=== PATIENT | female | born 1935 | race Caucasian/White ===

== ENCOUNTER 2016-07-14 22:53 | Emergency (ER) | payer MEDICARE, OTHER ==
[~2016-07-14] VITALS: Ht 154.9 cm; Wt 77.3 kg
[~2016-07-14 22:53] MED LIST: ASPI325T32 PO; ATOR40TA68 PO; CHOL20003 PO; METO-448 PO; OMEP40CA6 PO; SAXA5TAB2 PO
[2016-07-14 23:02] VITALS: Ht 154.9 cm; Wt 77.3 kg
[2016-07-14 23:04] VITALS: TEMP 98.7
[2016-07-14] MEDS ORDERED: LOSA100T7 PO (23:12)
[2016-07-14] MEDS ORDERED: ASPI-664 PO (23:12)
[2016-07-14] MEDS ORDERED: DAPA5TAB PO (23:12)
[2016-07-14] MEDS ORDERED: DOXY100T20 PO (23:13)
[2016-07-14] MEDS ORDERED: MONT10TA24 PO (23:13)
[2016-07-14] MEDS ORDERED: METH10TA2 PO (23:14)
[2016-07-14] MEDS ORDERED: INSU100V27 SQ (23:14)
[2016-07-14] MEDS ORDERED: DIPHTH/TET/ACEL PERTUSS (ADULT) 0.5 ML VIAL IM* ONE (23:30)
--- NOTE | 2016-07-15 00:05 | RADRPT ---
PROCEDURE: XR Foot. CLINICAL INDICATION: Fall TECHNIQUE: Three views of the left foot are available for review. COMPARISON: None available FINDINGS: The patient appears to be status post amputation of the first toe at the metatarsophalangeal joint, second toe at the approximate level of the proximal interphalangeal joint and the fourth toe at the level of the proximal interphalangeal joint. There is diffuse osteopenia. There is deformity of th e heads of the second, fourth and fifth metatarsals which may be secondary to old fractures. No def inite acute fracture seen. Appearance of lateral deviation and likely dorsiflexion of the third toe at the metatarsophalangeal joint. The fourth and fifth metatarsophalangeal joints are not well deli neated. Arterial calcification. Mild osteoarthrosis at fifth tarsometatarsal joint. Posterior and s mall plantar calcaneal spurs. IMPRESSION: Diffuse osteopenia. No definite acute fracture seen. Marked chronic changes noted above. Please s ee above. RPTAT: HJES .Vaughn Spence MD, MD Date Time Electronically viewed and signed by .Vaughn Spence MD, MD on 07/15/2016 00:05 .S/
[2016-07-15 00:50] VITALS: BP 163/65; PULSE 68; RESP 20
[2016-07-15] MEDS ORDERED: HYDROCODONE/APAP (10/325) TAB PO ONE (01:00)
[2016-07-15] MEDS ORDERED: BACITUD TOP (01:06)
--- NOTE | 2016-07-15 01:08 | ERD ---
ER Documentation Chief Complaint Date/Time DATE: 07/15/16 TIME: 01:07 Chief Complaint HPI There is an 81-year-old female suffered a mechanical fall. Patient has a right AKA. Comes in with an abrasion to her left ankle region. Skin tear noted. No active bleeding. Last tetanus is unknown. ROS All systems reviewed and are negative except as per history of present illness. Medications Home Meds Active Scripts Bacitracin* (Bacitracin Oint (UD)*) 1 Applic Oint, 1 APPLIC TOP ONCE for 7 Days , PKT APPLY TO Prov:DORY PLAZA Shakeel 07/15/16 Reported Medications Insulin Lispro Protamin/Lispro (Humalog Mix 75-25 Vial) 100 Unit/1 Ml Vial, 30- 60 UNIT SQ BID, VIAL 07/14/16 Methadone Hcl* (Methadone*) 10 Mg Tab, 15 MG PO BID, TAB 07/14/16 Doxycycline Hyclate* (Doxycycline Hyclate*) 100 Mg Tablet.dr, 100 MG PO BID, TAB 07/14/16 Montelukast Sodium* (Montelukast Sodium*) 10 Mg Tablet, 10 MG PO QHS, #30 TAB 07/14/16 Losartan Potassium* (Losartan Potassium*) 100 Mg Tablet, 100 MG PO BID, TAB 07/14/16 Dapagliflozin Propanediol (Farxiga) 5 Mg Tablet, 5 MG PO DAILY, #30 TAB 07/14/16 Aspirin* (Aspirin* EC) 81 Mg Tablet.dr, 81 MG PO DAILY, TAB 07/14/16 Discontinued Reported Medications Saxagliptin Hcl* (Onglyza*) 5 Mg Tablet, 5 MG PO DAILY 11/20/12 Cholecalciferol (Vitamin D3) (VITAMIN D-3) 2,000 Unit Capsule, 2000 UNIT PO DAILY 11/20/12 Atorvastatin* (Atorvastatin*) 40 Mg Tablet, 40 MG PO DAILY 11/20/12 Metoprolol Tartrate* (Lopressor*) 25 Mg Tab, 25 MG PO BID 11/20/12 Aspirin (Aspirin) 325 Mg Tablet.dr, 325 MG PO DAILY 11/20/12 Omeprazole* (Omeprazole*) 40 Mg Capsule.dr, 40 MG PO DAILY 11/20/12 Allergies Allergies: Coded Allergies: Penicillins (Verified Allergy, Mild, RASH, 07/14/16) PMhx/Soc History of Surgery: Yes (RIGHT BKA) Anesthesia Reaction: No Hx Neurological Disorder: No Hx Respiratory Disorders: No Hx Cardiac Disorders: Yes (HTN) Hx Psychiatric Problems: No Hx Alcohol Use: No Hx Substance Use: No Hx Tobacco Use: No Smoking Status: Never smoker Physical Exam Vitals Vital Signs Date Time Temp Pulse Resp B/P Pulse Ox O2 Delivery O2 Flow Rate FiO2 07/15/16 00:50 68 20 163/65 99 Room Air 07/14/16 23:04 98.7 72 24 181/68 97 Room Air 07/14/16 23:02 98.7 73 24 181/68 97 Physical Exam Const: [] Head: Atraumatic Eyes: Normal Conjunctiva ENT: Normal External Ears, Nose and Mouth. Neck: Full range of motion..~ No meningismus. Resp: Clear to auscultation bilaterally Cardio: Regular rate and rhythm, no murmurs Abd: Soft, non tender, non distended. Normal bowel sounds Skin: Skin avulsion noted 2 x 2 centimeters heel Back: No midline or flank tenderness Ext: No cyanosis, or edema Neur: Awake and alert Psych: Normal Mood and Affect Results 24 hrs Current Medications Medications (Trade) Dose Ordered Sig/Grecia Route PRN Reason Start Time Stop Time Status Last Admin Dose Admin Diphtheria/ Tetanus/Acell Pertussis (Adacel) 0.5 ml ONCE ONCE IM* 07/14/16 23:30 07/14/16 23:31 DC 07/14/16 23:44 Acetaminophen/ Hydrocodone Bitart ([place] (10/325)) 1 tab ONCE ONCE PO 07/15/16 01:00 07/15/16 01:01 DC 07/15/16 00:58 Procedures/MDM X-ray Ankle 3V Interpreted by me: Bones: [No fracture] Joints: No dislocation Medical decision makin-year-old female suffered a mechanical fall. Skin avulsion noted. Wound cleaned and sterilely dressed. Discharged on bacitracin. Follow-up tomorrow for wound check. Follow with PCP tomorrow as well. Departure Diagnosis: Primary Impression: Skin tear Condition: Stable Patient Instructions: Skin Avulsion DORY PLAZA Jul 15, 2016 01:08
== END 2016-07-15 01:55 | disposition home or self-care (01) ==
LOC: E/R 22:53
DX: S90.512A Abrasion, left ankle, initial encounter (principal); I10 Essential (primary) hypertension; E11.9 Type 2 diabetes mellitus without complications; W18.39XA Other fall on same level, initial encounter; Y92.9 Unspecified place or not applicable; Z23 Encounter for immunization; Z79.82 Long term (current) use of aspirin; Z79.4 Long term (current) use of insulin
CPT/HCPCS: 90471; 90715

== ENCOUNTER 2016-10-27 22:25 | Inpatient (IN) | payer MEDICARE, OTHER ==
[~2016-10-27] VITALS: Ht 154.9 cm; Wt 69.3 kg
[~2016-10-27 22:25] MED LIST changes: +ASPI-664 PO; -ASPI325T32 PO; -ATOR40TA68 PO; +BACITUD TOP; -CHOL20003 PO; +DAPA5TAB PO; +DOXY100T20 PO; +INSU100V27 SQ; +LOSA100T7 PO; +METH10TA2 PO; -METO-448 PO; +MONT10TA24 PO; -OMEP40CA6 PO; -SAXA5TAB2 PO
[2016-10-27 23:18] LABS: ADD SCAN DIFF NO; BASOPHIL # 0.1 10^3/ul (0.0-0.1); BASOPHILS % 0.6 % (0.0-2.0); EOSINOPHILS # 0.3 10^3/ul (0.0-0.5); EOSINOPHILS % 3.5 % (0.0-7.0); HEMATOCRIT 40.6 % (37.0-47.0); HEMOGLOBIN 13.4 g/dl (12.0-16.0); LYMPHOCYTES # 2.3 10^3/ul (0.8-2.9); LYMPHOCYTES % 24.9 % (15.0-51.0); MEAN PLATELET VOLUME 9.4 fl (7.4-10.4); MONOCYTE # 0.9 10^3/ul (0.3-0.9); MONOCYTES % 9.9 % (0.0-11.0); NEUTROPHIL # 5.7 10^3/ul (1.6-7.5); NEUTROPHILS % 60.4 % (39.0-77.0); PLATELET COUNT 288 10^3/UL (140-415); RED BLOOD COUNT 4.46 10^6/ul (4.20-5.40); RED CELL DISTRIBUTION WIDTH 13.6 % (11.5-14.5); WHITE BLOOD COUNT 9.4 10^3/ul (4.8-10.8)
[2016-10-27 23:36] LABS: INR 1.16; PARTIAL THROMBOPLASTIN TIME 30.2 Sec (25.0-35.0); PROTIME 14.9 Sec (12.2-14.2); PT RATIO 1.2
--- NOTE | 2016-10-27 23:54 | RADRPT ---
PROCEDURE: CT brain without contrast CLINICAL INDICATION: Altered mental status TECHNIQUE: A CT of the brain was performed utilizing axial sections from the skull base through th e vertex without contrast. Sagittal and coronal images were also reformatted. The exam CTDIvol = 44. 19 mGy and DLP = 720.23 mGy-cm. COMPARISON: None available FINDINGS: No acute intracranial hemorrhage is identified. There is no mass effect or midline shift. No extra -axial fluid collection is seen. The ventricles and sulci are larger in size and configuration for the patient's provided age of 81 years consistent with advanced generalized atrophy. Diffuse low at tenuation of the subcortical and periventricular white matter is nonspecific but likely the sequela of chronic small vessel ischemia. Small chronic lacunar infarct within the right centrum semiovale are suggested. Olsen-white differentiation is preserved with no findings to suggest an acute ischemi c infarct. The fourth ventricle is midline and there is no density alteration within the jax or cerebellum. The osseous structures are demineralized but otherwise unremarkable. The mastoid air cells and visu alized paranasal sinuses are clear. Severe atherosclerotic calcification of the cavernous internal c arotid and right vertebral arteries is noted RPTAT:HJJR IMPRESSION: 1. 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 2. Severe atherosclerotic calcification of the cavernous internal carotid and right vertebral arteri es. Physician Dago Date Time Electronically viewed and signed by Physician Dago on 10/27/2016 23:53 /
[2016-10-27 23:59] LABS: ALANINE AMINOTRANSFERASE 27 IU/L (13-69); ALBUMIN/GLOBULIN RATIO 1.05; ALKALINE PHOSPHATASE 84 IU/L (42-121); ANION GAP 15 (8-16); ASPARTATE AMINO TRANSFERASE 23 IU/L (15-46); BILIRUBIN,INDIRECT 0.4 mg/dl (0-1.1); BILIRUBIN,TOTAL 0.4 mg/dl (0.2-1.3); BLOOD UREA NITROGEN 23 mg/dl (7-20); CALCIUM 9.8 mg/dl (8.4-10.2); CARBON DIOXIDE 27 mmol/L (21-31); CHLORIDE 103 mmol/L (97-110); CREATININE 0.98 mg/dl (0.44-1.00); GLUCOSE 246 mg/dl (70-220); POTASSIUM 4.4 mmol/L (3.5-5.1); SODIUM 141 mmol/L (135-144); TOTAL PROTEIN 7.8 g/dl (6.1-8.1)
[2016-10-28 00:09] LABS: B-TYPE NATRIURETIC PEPTIDE 603 PG/ML (0-450)
[2016-10-28 00:10] LABS: TROPONIN-I < 0.012 ng/ml (0.00-0.12)
--- NOTE | 2016-10-28 00:40 | RADRPT ---
PROCEDURE: XR Chest. CLINICAL INDICATION: Chest pain. TECHNIQUE: Portable AP upright view of the chest was obtained. COMPARISON: 07/23/2013 FINDINGS: The cardiomediastinal silhouette is within upper normal limits. The lungs are clear. There is no e vidence for pleural effusion, pneumothorax or pulmonary vascular congestion. Demineralization is no eleazar without evidence of acute osseous abnormality. Calcification within the aorta is present. RPTAT:HJJR IMPRESSION: No evidence for acute intrathoracic pathology or interval change from 07/23/2013. Physician Dago Date Time Electronically viewed and signed by Physician Dago on 10/28/2016 00:39 JR/
[2016-10-28] MEDS ORDERED: morphine 4 MG/ML VIAL IV ONE (00:49)
[2016-10-28] MEDS ORDERED: NOVO7030 SC (01:34)
[2016-10-28] MEDS ORDERED: MULT-853 PO (01:34)
--- NOTE | 2016-10-28 02:15 | ERA ---
ER Documentation Chief Complaint Date/Time DATE: 10/28/16 TIME: 02:14 Chief Complaint HPI 81-year-old female brought by family for generalized weakness over the past day getting progressively worse. No focal neurological complaints. Patient does have history of osteomyelitis of the lower extremity. Per the family, patient' s been getting more more lethargic lately which is not normal for her. No focal neurological complaints. ROS All systems reviewed and are negative except as per history of present illness. Medications Home Meds Reported Medications Multivits-Min/Iron/FA/Lutein (Centrum Silver Women Tablet) 1 Each Tablet, 1 EACH PO, TAB 10/28/16 Insulin Isophan/Regular (Humulin 70/30) 100 Units/Ml Susp, 0 SC SLIDING SCALE, EA 10/28/16 Methadone Hcl* (Methadone*) 10 Mg Tab, 15 MG PO BID, TAB 07/14/16 Montelukast Sodium* (Montelukast Sodium*) 10 Mg Tablet, 10 MG PO QHS, #30 TAB 07/14/16 Losartan Potassium* (Losartan Potassium*) 100 Mg Tablet, 100 MG PO BID, TAB 07/14/16 Aspirin* (Aspirin* EC) 81 Mg Tablet.dr, 81 MG PO DAILY, TAB 07/14/16 Discontinued Reported Medications Insulin Lispro Protamin/Lispro (Humalog Mix 75-25 Vial) 100 Unit/1 Ml Vial, 30- 60 UNIT SQ BID, VIAL 07/14/16 Doxycycline Hyclate* (Doxycycline Hyclate*) 100 Mg Tablet.dr, 100 MG PO BID, TAB 07/14/16 Dapagliflozin Propanediol (Farxiga) 5 Mg Tablet, 5 MG PO DAILY, #30 TAB 07/14/16 Discontinued Scripts Bacitracin* (Bacitracin Oint (UD)*) 1 Applic Oint, 1 APPLIC TOP ONCE for 7 Days , PKT APPLY TO Prov:DORY PLAZACheryl 07/15/16 Allergies Allergies: Coded Allergies: Penicillins (Verified Allergy, Mild, RASH, 07/14/16) PMhx/Soc History of Surgery: Yes (RIGHT BKA) Anesthesia Reaction: No Hx Neurological Disorder: No Hx Respiratory Disorders: No Hx Cardiac Disorders: Yes (HTN) Hx Psychiatric Problems: No Hx Miscellaneous Medical Probl: Yes (DM) Hx Alcohol Use: No Hx Substance Use: No Hx Tobacco Use: No Smoking Status: Never smoker Physical Exam Vitals Vital Signs Date Time Temp Pulse Resp B/P Pulse Ox O2 Delivery O2 Flow Rate FiO2 10/28/16 02:03 57 16 138/43 97 Room Air 10/27/16 23:19 98.2 69 16 89/67 96 10/27/16 23:19 69 18 89/67 96 Room Air Physical Exam Const: [] Head: Atraumatic Eyes: Normal Conjunctiva ENT: Normal External Ears, Nose and Mouth. Neck: Full range of motion..~ No meningismus. Resp: Clear to auscultation bilaterally Cardio: Regular rate and rhythm, no murmurs Abd: Soft, non tender, non distended. Normal bowel sounds Skin: No petechiae or rashes Back: No midline or flank tenderness Ext: Left lower extremity with gangrenous purulent drainage from the heel. Neur: Awake and alert Psych: Normal Mood and Affect Result Diagram: 10/27/16 2300 10/27/16 2300 Results 24 hrs Laboratory Tests Test 10/27/16 23:00 White Blood Count 9.410^3/ul Red Blood Count 4.4610^6/ul Hemoglobin 13.4g/dl Hematocrit 40.6% Mean Corpuscular Volume 91.0fl Mean Corpuscular Hemoglobin 30.0pg Mean Corpuscular Hemoglobin Concent 33.0g/dl Red Cell Distribution Width 13.6% Platelet Count 34004^3/UL Mean Platelet Volume 9.4fl Neutrophils % 60.4% Lymphocytes % 24.9% Monocytes % 9.9% Eosinophils % 3.5% Basophils % 0.6% Nucleated Red Blood Cells % 0.0/100WBC Neutrophils # 5.710^3/ul Lymphocytes # 2.310^3/ul Monocytes # 0.910^3/ul Eosinophils # 0.310^3/ul Basophils # 0.110^3/ul Nucleated Red Blood Cells # 0.010^3/ul Prothrombin Time 14.9Sec Prothrombin Time Ratio 1.2 INR International Normalized Ratio 1.16 Activated Partial Thromboplast Time 30.2Sec Sodium Level 141mmol/L Potassium Level 4.4mmol/L Chloride Level 103mmol/L Carbon Dioxide Level 27mmol/L Anion Gap 15 Blood Urea Nitrogen 23mg/dl Creatinine 0.98mg/dl Glucose Level 246mg/dl Calcium Level 9.8mg/dl Total Bilirubin 0.4mg/dl Direct Bilirubin 0.00mg/dl Indirect Bilirubin 0.4mg/dl Aspartate Amino Transf (AST/SGOT) 23IU/L Alanine Aminotransferase (ALT/SGPT) 27IU/L Alkaline Phosphatase 84IU/L Troponin I < 0.012ng/ml B-Type Natriuretic Peptide 603PG/ML Total Protein 7.8g/dl Albumin 4.0g/dl Globulin 3.80g/dl Albumin/Globulin Ratio 1.05 Current Medications Medications (Trade) Dose Ordered Sig/Grecia Route PRN Reason Start Time Stop Time Status Last Admin Dose Admin Morphine Sulfate (morphine) 4 mg ONCE ONCE IV 10/28/16 00:49 10/28/16 00:50 DC 10/28/16 00:54 Procedures/MDM EKG: Rate/Rhythm: Normal Sinus Rhythm QRS, ST, T-waves: No changes consistent w/ acute ischemia Impression: No evidence of ischemia or arrhythmia Chest X-ray 1V Interpreted by me: Soft Tissue: No acute abnormalities Bones: No acute abnormalities Mediastinum/Cardiac Silhouette/Lungs: No acute abnormalities Medical decision-makin-year-old female with generalized weakness and questionable alteration in mental status from baseline. At this point she will be admitted for further evaluation and management. Primary care physician notified. Departure Diagnosis: Primary Impression: Acute weakness Condition: Serious DORY PLAZA Oct 28, 2016 02:15
[2016-10-28] MEDS ORDERED: ONDANSETRON 4 MG INJ IV PRN (09:30)
[2016-10-28] MEDS ORDERED: NACL 0.9% 3 ML SYG IV SCH ×2 (09:30)
[2016-10-28] MEDS ORDERED: DEXTROSE 50% 50 ML SYRINGE IV PRN ×2 (10:00)
[2016-10-28] MEDS ORDERED: GLUCOSE GEL 15 GRAM TUBE BUCCAL PRN (10:00)
[2016-10-28] MEDS ORDERED: GLUCAGON 1 MG INJ IM PRN (10:00)
[2016-10-28] MEDS ORDERED: GLUCOSE GEL 15 GRAM TUBE PO PRN ×2 (10:00)
[2016-10-28] MEDS: SOD CHLORIDE 0.45% 1,000 ML IV SCH (13:46)
[2016-10-28] MEDS ORDERED: HALOPERIDOL 1 MG TAB PO PRN (16:30)
[2016-10-28] MEDS: morphine 2 MG INJ IV PRN (17:02)
[2016-10-28 17:30] VITALS: BP 145/64; PULSE 63; RESP 18; Ht 154.9 cm; Wt 69.3 kg
[2016-10-28 17:53] VITALS: PULSE 65
[2016-10-28 18:19] VITALS: BP 145/64; RESP 18
[2016-10-28] MEDS: INSULIN ASPART [NOVOLOG] 3 ML PEN SC SCH ×2 (18:44→20:56)
[2016-10-28] MEDS: LOSARTAN 50 MG TAB PO SCH (19:12)
[2016-10-28 20:00] VITALS: BP 141/67; RESP 18
[2016-10-28 20:20] VITALS: PULSE 66
[2016-10-28] MEDS: ACETAMINOPHEN 325 MG TAB PO PRN (21:06)
[2016-10-29] VITALS (13 sets, daily range): BP systolic 137–184; BP diastolic 61–75; PULSE 51–58; RESP 18–20
[2016-10-29] MEDS: morphine 2 MG INJ IV PRN ×2 (02:21→20:34)
[2016-10-29 07:40] LABS: ADD SCAN DIFF NO
[2016-10-29 07:55] LABS: BASOPHIL # 0.1 10^3/ul (0.0-0.1); BASOPHILS % 0.8 % (0.0-2.0); EOSINOPHILS # 0.4 10^3/ul (0.0-0.5); EOSINOPHILS % 3.9 % (0.0-7.0); HEMATOCRIT 39.8 % (37.0-47.0); HEMOGLOBIN 13.1 g/dl (12.0-16.0); LYMPHOCYTES # 2.8 10^3/ul (0.8-2.9); MEAN CORPUSCULAR HEMOGLOBIN 30.5 pg (29.0-33.0); MEAN CORPUSCULAR HGB CONC 32.9 g/dl (32.0-37.0); MEAN CORPUSCULAR VOLUME 92.6 fl (82.0-101.0); MEAN PLATELET VOLUME 9.5 fl (7.4-10.4); MONOCYTE # 0.9 10^3/ul (0.3-0.9); NEUTROPHIL # 5.4 10^3/ul (1.6-7.5); NEUTROPHILS % 56.8 % (39.0-77.0); PLATELET COUNT 285 10^3/UL (140-415); RED CELL DISTRIBUTION WIDTH 13.6 % (11.5-14.5); WHITE BLOOD COUNT 9.5 10^3/ul (4.8-10.8)
[2016-10-29] MEDS: INSULIN ASPART [NOVOLOG] 3 ML PEN SC SCH ×4 (08:00→20:44)
[2016-10-29 08:05] LABS: ALBUMIN/GLOBULIN RATIO 1.05; BILIRUBIN,INDIRECT 0.6 mg/dl (0-1.1); BILIRUBIN,TOTAL 0.6 mg/dl (0.2-1.3); CREATININE 0.83 mg/dl (0.44-1.00); POTASSIUM 4.7 mmol/L (3.5-5.1); TOTAL PROTEIN 7.8 g/dl (6.1-8.1)
[2016-10-29] MEDS: ASPIRIN 81 MG TAB PO SCH (08:36)
[2016-10-29] MEDS: LOSARTAN 50 MG TAB PO SCH (08:36)
[2016-10-29] MEDS: ENOXAPARIN 40 MG/0.4 ML SYG SC SCH (08:37)
--- NOTE | 2016-10-29 10:51 | CONS ---
Date/Time of Note Date/Time of Note DATE: 10/29/16 TIME: 10:44 Assessment/Plan Assessment/Plan Chief Complaint/Hosp Course 1) Padma heal eschar with cellulitis cx the site get nasal cx and blood cx start vanco/merrem till cx results are back pt will need surgical debridement most likely check ESR, CRP in a.m. if arterial studies have not been done recently they should be repeated Problems: Consultation Date/Type/Reason Admit Date/Time Oct 28, 2016 at 02:32 Date of Consultation: Oct 29, 2016 Type of Consultation: ID Hx of Present Illness spoke to caregiver pt has been off antibiotics for 2 weeks and the Padma joseph started to deteriorate no F, C, NS No N, V, D, SOB she had been on doxycycline but unclear for how long Social History Smoking Status: Never smoker Exam/Review of Systems Vital Signs Vitals Vital Signs Date Time Temp Pulse Resp B/P Pulse Ox O2 Delivery O2 Flow Rate FiO2 10/29/16 08:45 58 10/29/16 07:46 98.4 20 184/75 98 10/28/16 17:30 Room Air Intake and Output 10/28/16 10/28/16 10/29/16 15:00 23:00 07:00 Intake Total 400 ml Balance 400 ml Exam Constitutional: alert Psych: no complaints Eyes: nl sclera ENMT: mucosa pink and moist Respiratory: clear to auscultation Cardiovascular: regular rate and rhythm Gastrointestinal: non-tender, soft Extremities: other (Padma joseph has large eschar with minimal redness around it) Results Result Diagram: 10/29/16 0700 10/29/16 0700 Results 24 hrs Laboratory Tests Test 10/28/16 18:44 10/28/16 20:53 10/29/16 07:00 10/29/16 08:33 Bedside Glucose 190 190 137 White Blood Count 9.5 Red Blood Count 4.30 Hemoglobin 13.1 Hematocrit 39.8 Mean Corpuscular Volume 92.6 Mean Corpuscular Hemoglobin 30.5 Mean Corpuscular Hemoglobin Concent 32.9 Red Cell Distribution Width 13.6 Platelet Count 285 Mean Platelet Volume 9.5 Neutrophils % 56.8 Lymphocytes % 29.0 Monocytes % 9.0 Eosinophils % 3.9 Basophils % 0.8 Nucleated Red Blood Cells % 0.0 Neutrophils # 5.4 Lymphocytes # 2.8 Monocytes # 0.9 Eosinophils # 0.4 Basophils # 0.1 Nucleated Red Blood Cells # 0.0 Sodium Level 143 Potassium Level 4.7 Chloride Level 104 Carbon Dioxide Level 28 Anion Gap 16 Blood Urea Nitrogen 20 Creatinine 0.83 Glucose Level 141 # Calcium Level 10.0 Total Bilirubin 0.6 Direct Bilirubin 0.00 Indirect Bilirubin 0.6 Aspartate Amino Transf (AST/SGOT) 23 Alanine Aminotransferase (ALT/SGPT) 26 Alkaline Phosphatase 82 Total Protein 7.8 Albumin 4.0 Globulin 3.80 H Albumin/Globulin Ratio 1.05 Medications Medications Current Medications Sodium Chloride (1/2 NS) 1,000 ml @ 40 mls/hr Q24H IV Last administered on 10/28 13:46; Admin Dose 40 MLS/HR; Start 10/28/16 at 14:00 Ondansetron HCl (Zofran Inj) 4 mg Q6H PRN IV NAUSEA AND/OR VOMITING; Start 10/28 at 09:30 Aspirin (Aspirin) 81 mg DAILY PO Last administered on 10/29/16 08:36; Admin Dose 81 MG; Start 10/29/16 at 09:00 Acetaminophen (Tylenol Tab) 650 mg Q6H PRN PO PAIN LEVEL 1-3 OR FEVER Last administered on 10/28/16 21:06; Admin Dose 650 MG; Start 10/28/16 at 09:30 Enoxaparin Sodium (Lovenox) 40 mg DAILY SC Last administered on 10/29/16 08:37 ; Admin Dose 40 MG; Start 10/29/16 at 09:00 Miscellaneous Information 1 ea NOTE XX ; Start 10/28/16 at 10:00 Glucose (Glutose) 15 gm Q15M PRN PO DECREASED GLUCOSE; Start 10/28/16 at 10:00 Glucose (Glutose) 22.5 gm Q15M PRN PO DECREASED GLUCOSE; Start 10/28/16 at 10:00 Dextrose (D50w Syringe) 25 ml Q15M PRN IV DECREASED GLUCOSE; Start 10/28/16 at 10:00 Dextrose (D50w Syringe) 50 ml Q15M PRN IV DECREASED GLUCOSE; Start 10/28/16 at 10:00 Glucagon (Glucagen) 1 mg Q15M PRN IM DECREASED GLUCOSE; Start 10/28/16 at 10:00 Glucose (Glutose) 15 gm Q15M PRN BUCCAL DECREASED GLUCOSE; Start 10/28/16 at 10: 00 Morphine Sulfate (morphine) 2 mg Q8H PRN IV pain Last administered on 10/29/16 02:21; Admin Dose 2 MG; Start 10/28/16 at 15:30 Haloperidol (Haldol) 2 mg HS PRN PO insomnia; Start 10/28/16 at 16:30 Losartan Potassium (Cozaar) 100 mg DAILY PO Last administered on 10/29/16 08:36 ; Admin Dose 100 MG; Start 10/28/16 at 17:30 ANTHONY WOODARD MD Oct 29, 2016 10:51
[2016-10-29] MEDS ORDERED: VANCOMYCIN IV PER PHARMACY XX SCH (11:00)
--- NOTE | 2016-10-29 12:38 | HP ---
DATE OF ADMISSION: 10/28/2016 HISTORY OF PRESENT ILLNESS: This is an 81-year-old female who came in with the family complaining o f her having hallucinations. The patient has been having increased neuropathic pain and cellulitic pain of the lower extremities. Currently, she is taking methadone 10 mg q.i.d. and she has been inc reasing, then she started getting anxious family wanted her on some type of sedative for her anxiety , was started on Xanax. It appears that the Xanax is causing hallucination and lethargy for her. I n the emergency room, nothing was found. Her blood tests were normal. CT of the brain, normal. Ch est x-ray was normal. No acute findings for possible source of lethargy. PAST MEDICAL HISTORY: Hyperlipidemia, diabetes with a history of amputation of lower extremity and neuropathy, also with hypertension and now with a mood disorder. FAMILY HISTORY: Significant for diabetes with multiple family members. SOCIAL HISTORY: Denies both tobacco and alcohol. ALLERGIES: PENICILLIN. MEDICATIONS: 1. Methadone 10 mg q.i.d. 2. Losartan 100 mg daily. PHYSICAL EXAMINATION: VITAL SIGNS: Blood pressure is 146/64, respirations 20, pulse 67, pulse ox 99 on room air. HEENT: Normocephalic, atraumatic. NECK: No bruits. CARDIOVASCULAR: Regular rate and rhythm. LUNGS: Clear to auscultation bilaterally, no wheezes or rhonchi. ABDOMEN: Nontender, nondistended. LABORATORY DATA: Demonstrate a WBC of 9.4, hemoglobin 13.4, platelets 288, potassium 4.4, creatinin e 0.98. BNP is 603. Brain CT was negative. Chest x-ray was negative. ASSESSMENT AND PLAN: 1. Lethargy, hallucinations, most likely brought out by the Xanax. Will hold Xanax. Will decrease pain medications at this time. Will give mild morphine as needed. Currently on examination, the giuliana laureano reports that she may still have some hallucinations, but much better than prior at 2:00 in the morning. 2. Lower extremity cellulitis. The patient is being seen as an outpatient, home health, wound care , has seen infectious disease, was given antibiotics multiple times. It was progressing. The famil y was told to go to the hospital as an outpatient for wound care. there for more in-depth treatment . The patient's family has yet to make an appointment. While in the hospital, will have wound care nursing evaluate any have any treatment necessary at this time. 3. Diabetes. The patient has recently been under better control. A1c tests have been in the 7s. She is taking a combination insulin 70/30 at approximately 20 units in the morning and 60 units in t he evening time. We will give her a sliding scale and will see about a long-acting insulin. 4. Hypertension. Continue with the Losartan and cover with clonidine. Dictated By: RIDGE ABDALLA/CLIVE Conf#: [id number] DID#: [id number]
[2016-10-29] MEDS ORDERED: VANCOMYCIN 1.25 GM in SOD CHLORIDE 0.9% 250 ML IVPB ONE (13:00)
--- NOTE | 2016-10-29 14:09 | HP ---
DATE OF ADMISSION: 10/28/2016 SUBJECTIVE: Feeling good, eating well, no complaints. Family reports not having hallucinations at this time, but the son is saying everything is doing fine, so unable to tell if this is really true. PHYSICAL EXAMINATION: VITAL SIGNS: Blood pressure is between 104 to 170/65, temperature 98.3, pulse is at 57, pulse ox is 92 on room air. HEENT: Normocephalic, atraumatic. LUNGS: Clear to auscultation. GASTROINTESTINAL: Abdomen is soft, nontender. CARDIOVASCULAR: Regular rate and rhythm. LABORATORY DATA: Potassium is 4.7, creatinine 0.83. WBC is 9.5, hemoglobin 13.1, platelets of 285. ASSESSMENT AND PLAN: 1. Lethargy, hallucination, most likely secondary to medications and Xanax, Xanax being held. Patie nt appears to be back to normal. We will restart her typical methadone. 2. Lower extremity cellulitis with possibility of osteomyelitis. ID is seeing, recommended debride ment. Surgeon was called. He reports unavailable, but his fork truck driver he will contact and see we jac george have the fork truck driver evaluate and see if the possibility for the need for debridement. Cultures angel saunders. Wound care nurse was also called. 3. Diabetes. The patient has been under good control in the past A1c. Her normal insulin is curre ntly being held. We will restart on NPH currently in the morning and still cover with a sliding sca le. 4. Hypertension, may be due is elevated, may be due to the increase of pain. We will watch as we r estart the methadone to see if the blood pressure starts coming down. Dictated By: RIDGE ABDALLA/CLIVE Conf#: [id number] DID#: [id number]
[2016-10-29] MEDS: SOD CHLORIDE 0.45% 1,000 ML IV SCH (14:10)
[2016-10-29] MEDS: MEROPENEM 1 GM/100 ML (PMX) 100 ML IVPB SCH ×2 (15:26→22:36)
[2016-10-29] MEDS: GABAPENTIN 100 MG CAP PO SCH (20:34)
[2016-10-29] MEDS ORDERED: LORAZEPAM 2 MG INJ IV PRN (23:30)
[2016-10-29] MEDS ORDERED: ZOLPIDEM 5 MG TAB PO PRN (23:30)
[2016-10-29] MEDS ORDERED: LORAZEPAM 2 MG INJ IM ONE (23:30)
[2016-10-30] VITALS (12 sets, daily range): BP systolic 113–189; BP diastolic 49–77; PULSE 51–59; RESP 19–20
[2016-10-30] MEDS: MEROPENEM 1 GM/100 ML (PMX) 100 ML IVPB SCH ×3 (05:50→22:21)
--- NOTE | 2016-10-30 07:33 | CONS ---
Date/Time of Note Date/Time of Note DATE: 10/30/16 TIME: 07:31 Assessment/Plan Assessment/Plan Chief Complaint/Hosp Course 1) L heal eschar with cellulitis cx the site get nasal cx and blood cx start vanco/merrem till cx results are back pt will need surgical debridement most likely check ESR, CRP in a.m. if arterial studies have not been done recently they should be repeated 10/30 - spoke to family, no MRI or arterial dopplers were ever done so will order them GNR is growing from wound cx pt will need some debridement of eschar continue with vanco/merrem at present Problems: Consultation Date/Type/Reason Admit Date/Time Oct 28, 2016 at 02:32 Initial Consult Date 10/29/16 Type of Consultation: ID 24 HR Interval Summary Free Text/Dictation no new problems no N, V, D No cough, SOB appetite is good Exam/Review of Systems Vital Signs Vitals Vital Signs Date Time Temp Pulse Resp B/P Pulse Ox O2 Delivery O2 Flow Rate FiO2 10/30/16 04:38 51 10/30/16 04:02 98.4 19 113/49 94 10/28/16 17:30 Room Air Intake and Output 10/29/16 10/29/16 10/30/16 15:00 23:00 07:00 Intake Total 850 ml 1040 ml Balance 850 ml 1040 ml Exam Extremities: other (L ankle is bandaged but no redness to lower calf, toes are warm to touch) Results Result Diagram: 10/29/16 0700 10/29/16 0700 Results 24 hrs Laboratory Tests Test 10/29/16 08:33 10/29/16 12:24 10/29/16 17:42 10/29/16 20:43 Bedside Glucose 137 191 203 176 Medications Medications Current Medications Sodium Chloride (1/2 NS) 1,000 ml @ 40 mls/hr Q24H IV Last administered on 10/29 14:10; Admin Dose 40 MLS/HR; Start 10/28/16 at 14:00 Ondansetron HCl (Zofran Inj) 4 mg Q6H PRN IV NAUSEA AND/OR VOMITING; Start 10/28 at 09:30 Aspirin (Aspirin) 81 mg DAILY PO Last administered on 10/29/16 08:36; Admin Dose 81 MG; Start 10/29/16 at 09:00 Acetaminophen (Tylenol Tab) 650 mg Q6H PRN PO PAIN LEVEL 1-3 OR FEVER Last administered on 10/28/16 21:06; Admin Dose 650 MG; Start 10/28/16 at 09:30 Enoxaparin Sodium (Lovenox) 40 mg DAILY SC Last administered on 10/29/16 08:37 ; Admin Dose 40 MG; Start 10/29/16 at 09:00 Miscellaneous Information 1 ea NOTE XX ; Start 10/28/16 at 10:00 Glucose (Glutose) 15 gm Q15M PRN PO DECREASED GLUCOSE; Start 10/28/16 at 10:00 Glucose (Glutose) 22.5 gm Q15M PRN PO DECREASED GLUCOSE; Start 10/28/16 at 10:00 Dextrose (D50w Syringe) 25 ml Q15M PRN IV DECREASED GLUCOSE; Start 10/28/16 at 10:00 Dextrose (D50w Syringe) 50 ml Q15M PRN IV DECREASED GLUCOSE; Start 10/28/16 at 10:00 Glucagon (Glucagen) 1 mg Q15M PRN IM DECREASED GLUCOSE; Start 10/28/16 at 10:00 Glucose (Glutose) 15 gm Q15M PRN BUCCAL DECREASED GLUCOSE; Start 10/28/16 at 10: 00 Morphine Sulfate (morphine) 2 mg Q8H PRN IV pain Last administered on 10/29/16 20:34; Admin Dose 2 MG; Start 10/28/16 at 15:30 Haloperidol (Haldol) 2 mg HS PRN PO insomnia; Start 10/28/16 at 16:30 Losartan Potassium 100 mg 100 mg DAILY PO Last administered on 10/29/16 08:36; Admin Dose 100 MG; Start 10/28/16 at 17:30 Meropenem 100 ml @ 200 mls/hr Q8 IVPB Last administered on 10/30/16 05:50; Admin Dose 200 MLS/HR; Start 10/29/16 at 14:00 Vancomycin HCl (Vancocin) 250 ml @ 125 mls/hr Q24H IVPB ; Start 10/30/16 at 12: 00 Methadone HCl (Methadone) 10 mg Q6H PRN PO PAIN; Start 10/29/16 at 13:30 Insulin Human NPH (Humulin N) 20 unit DAILY@08 SC ; Start 10/30/16 at 08:00 Gabapentin (Neurontin) 100 mg TID PO Last administered on 10/29/16t 20:34; Admin Dose 100 MG; Start 10/29/16 at 21:00 Zolpidem Tartrate (Ambien) 5 mg HS PRN PO INSOMNIA; Start 10/29/16 at 23:30 ANTHONY WOODARD MD Oct 30, 2016 07:33
[2016-10-30] MEDS: LOSARTAN 50 MG TAB PO SCH (08:12)
[2016-10-30] MEDS: GABAPENTIN 100 MG CAP PO SCH ×3 (08:12→21:48)
[2016-10-30] MEDS: ASPIRIN 81 MG TAB PO SCH (08:12)
[2016-10-30] MEDS: NPH, HUMAN INSULIN ISOPHANE 3ML VIAL SC SCH (08:23)
[2016-10-30] MEDS: INSULIN ASPART [NOVOLOG] 3 ML PEN SC SCH ×4 (08:23→21:00)
[2016-10-30] MEDS: ENOXAPARIN 40 MG/0.4 ML SYG SC SCH (08:24)
[2016-10-30 10:29] LABS: ADD SCAN DIFF NO
[2016-10-30 10:38] LABS: BASOPHIL # 0.1 10^3/ul (0.0-0.1); BASOPHILS % 0.8 % (0.0-2.0); EOSINOPHILS # 0.4 10^3/ul (0.0-0.5); EOSINOPHILS % 3.9 % (0.0-7.0); HEMATOCRIT 38.3 % (37.0-47.0); HEMOGLOBIN 12.8 g/dl (12.0-16.0); LYMPHOCYTES # 2.5 10^3/ul (0.8-2.9); LYMPHOCYTES % 28.3 % (15.0-51.0); MEAN CORPUSCULAR HEMOGLOBIN 30.1 pg (29.0-33.0); MEAN CORPUSCULAR HGB CONC 33.4 g/dl (32.0-37.0); MEAN CORPUSCULAR VOLUME 90.1 fl (82.0-101.0); MEAN PLATELET VOLUME 9.5 fl (7.4-10.4); MONOCYTE # 0.8 10^3/ul (0.3-0.9); MONOCYTES % 8.5 % (0.0-11.0); NEUTROPHIL # 5.2 10^3/ul (1.6-7.5); NEUTROPHILS % 57.8 % (39.0-77.0); PLATELET COUNT 253 10^3/UL (140-415); RED BLOOD COUNT 4.25 10^6/ul (4.20-5.40); RED CELL DISTRIBUTION WIDTH 13.6 % (11.5-14.5)
[2016-10-30 10:57] LABS: C-REACTIVE PROTEIN 1.6 mg/dl (0.0-0.9); CALCIUM 8.5 mg/dl (8.4-10.2); CREATININE 0.67 mg/dl (0.44-1.00); POTASSIUM 3.9 mmol/L (3.5-5.1)
[2016-10-30] MEDS: VANCOMYCIN 1 GM in NS 250 ML IVPB SCH (12:54)
--- NOTE | 2016-10-30 13:17 | CONS ---
Date/Time of Note Date/Time of Note DATE: 10/30/16 TIME: 12:54 Assessment/Plan Assessment/Plan Additional Assessment/Plan 81 yo female presents with left heel stable Decubitus ulcer with no sign of infection or need for any urgent surgical debridement. Patient has underlying peripheral vascular disease. JA studies have been completed and seem to have monophasic blood flow. Patient will benefit from Vascular consult and Dr. Correa will evaluate patient for further vascular recommendations. Left heel dressing changes with betadine dressing, telfa and kerlix recommnded. Patient would also benefit from Heel Medix protection boot which will be ordered to bedside. Patient would benefit from outpatient follow up at [facility] upon discharge. Please contact me for any acute issues or further questions. Thank you Dr. Shrestha for allowing me to see this patient. Consultation Date/Type/Reason Admit Date/Time Oct 28, 2016 at 02:32 Date of Consultation: Oct 30, 2016 Type of Consultation: Podiatry Reason for Consultation Left heel ulcer Referring Provider: CASSIDY SHRESTHA MD Hx of Present Illness Patient is a 81 yo female admitted on 10/28/16 for weakness and hallucinations. Patient has history of peripheral vascular disease. 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 Patient is not following up with a vascular surgeon at this time. Patient's family members state that she had a home health doctor that was helping with left heel ulcer while she was at home. No fevers, chills, nausea or increase in WBC since admission. Patient has had JA studies completed earlier today and pending MRI of left foot later today. Patient is being followed by CHRISTEL Shen. Psychological: no complaints Social History Smoking Status: Never smoker Exam/Review of Systems Vital Signs Vitals Vital Signs Date Time Temp Pulse Resp B/P Pulse Ox O2 Delivery O2 Flow Rate FiO2 10/30/16 12:21 54 10/30/16 11:54 97.9 20 94 10/30/16 10:50 150/67 10/28/16 17:30 Room Air Intake and Output 10/29/16 10/29/16 10/30/16 15:00 23:00 07:00 Intake Total 850 ml 1040 ml Balance 850 ml 1040 ml Exam Patient is not alert and sleeping comfortably. vasc: non palpable pulses left foot. neuro: protective sensation diminished derm: left posterior heel dry stable eschar. No fluctuance or drainage noted. No edema or erythema of left foot or ankle noted. musk/skeletal: S/P right BKA and left hallux amp. Results Result Diagram: 10/30/16 1021 10/30/16 1021 Results 24 hrs Laboratory Tests Test 10/29/16 17:42 10/29/16 20:43 10/30/16 08:18 10/30/16 10:21 Bedside Glucose 203 176 163 White Blood Count 9.0 Red Blood Count 4.25 Hemoglobin 12.8 Hematocrit 38.3 Mean Corpuscular Volume 90.1 Mean Corpuscular Hemoglobin 30.1 Mean Corpuscular Hemoglobin Concent 33.4 Red Cell Distribution Width 13.6 Platelet Count 253 Mean Platelet Volume 9.5 Neutrophils % 57.8 Lymphocytes % 28.3 Monocytes % 8.5 Eosinophils % 3.9 Basophils % 0.8 Nucleated Red Blood Cells % 0.0 Neutrophils # 5.2 Lymphocytes # 2.5 Monocytes # 0.8 Eosinophils # 0.4 Basophils # 0.1 Nucleated Red Blood Cells # 0.0 Erythrocyte Sedimentation Rate 76 H Sodium Level 134 L Potassium Level 3.9 Chloride Level 104 Carbon Dioxide Level 24 Anion Gap 10 # Blood Urea Nitrogen 14 Creatinine 0.67 Glucose Level 179 Hemoglobin A1c 7.5 H Calcium Level 8.5 C-Reactive Protein 1.6 H Medications Medications Current Medications Sodium Chloride (1/2 NS) 1,000 ml @ 40 mls/hr Q24H IV Last administered on 10/29 14:10; Admin Dose 40 MLS/HR; Start 10/28/16 at 14:00 Ondansetron HCl (Zofran Inj) 4 mg Q6H PRN IV NAUSEA AND/OR VOMITING; Start 10/28 at 09:30 Aspirin (Aspirin) 81 mg DAILY PO Last administered on 10/30/16 08:12; Admin Dose 81 MG; Start 10/29/16 at 09:00 Acetaminophen (Tylenol Tab) 650 mg Q6H PRN PO PAIN LEVEL 1-3 OR FEVER Last administered on 10/28/16 21:06; Admin Dose 650 MG; Start 10/28/16 at 09:30 Enoxaparin Sodium (Lovenox) 40 mg DAILY SC Last administered on 10/30/16 08:24 ; Admin Dose 40 MG; Start 10/29/16 at 09:00 Miscellaneous Information 1 ea NOTE XX ; Start 10/28/16 at 10:00 Glucose (Glutose) 15 gm Q15M PRN PO DECREASED GLUCOSE; Start 10/28/16 at 10:00 Glucose (Glutose) 22.5 gm Q15M PRN PO DECREASED GLUCOSE; Start 10/28/16 at 10:00 Dextrose (D50w Syringe) 25 ml Q15M PRN IV DECREASED GLUCOSE; Start 10/28/16 at 10:00 Dextrose (D50w Syringe) 50 ml Q15M PRN IV DECREASED GLUCOSE; Start 10/28/16 at 10:00 Glucagon (Glucagen) 1 mg Q15M PRN IM DECREASED GLUCOSE; Start 10/28/16 at 10:00 Glucose (Glutose) 15 gm Q15M PRN BUCCAL DECREASED GLUCOSE; Start 10/28/16 at 10: 00 Haloperidol (Haldol) 2 mg HS PRN PO insomnia; Start 10/28/16 at 16:30 Losartan Potassium 100 mg 100 mg DAILY PO Last administered on 10/30/16 08:12; Admin Dose 100 MG; Start 10/28/16 at 17:30 Meropenem 100 ml @ 200 mls/hr Q8 IVPB Last administered on 10/30/16 05:50; Admin Dose 200 MLS/HR; Start 10/29/16 at 14:00 Vancomycin HCl (Vancocin) 250 ml @ 125 mls/hr Q24H IVPB ; Start 10/30/16 at 12: 00 Methadone HCl (Methadone) 10 mg Q6H PRN PO PAIN; Start 10/29/16 at 13:30 Insulin Human NPH (Humulin N) 20 unit DAILY@08 SC Last administered on 08:23; Admin Dose 20 UNIT; Start 10/30/16 at 08:00 Gabapentin (Neurontin) 100 mg TID PO Last administered on 10/30/16 08:12; Admin Dose 100 MG; Start 10/29/16 at 21:00 Zolpidem Tartrate (Ambien) 5 mg HS PRN PO INSOMNIA; Start 10/29/16 at 23:30 Clonidine (Catapres) 0.1 mg TID PRN PO hypertension; Start 10/30/16 at 10:00 Morphine Sulfate (morphine) 1 mg BID PRN IV pain; Start 10/30/16 at 11:00 Copies To: CC: RIDGE MATTHEWS MD; BRIAN CORREA MD; ANTHONY SHEN MD, SYAMAK DPM Oct 30, 2016 13:05
[2016-10-30] MEDS: SOD CHLORIDE 0.45% 1,000 ML IV SCH (14:26)
--- NOTE | 2016-10-30 14:52 | RADRPT ---
PROCEDURE: US Lower Extremity, Arterial. CLINICAL INDICATION: Left foot ulceration. History of right [id number] amputation. TECHNIQUE: Multiple longitudinal and transverse images of the bilateral lower extremity arteries w ere obtained with ferrari scale and color Doppler imaging at rest. COMPARISON: None. FINDINGS: Location Right (cm/s)Left (cm/s) CFA73 80 PSFA49 85 MSFA34 73 DSFA48 74 POP34 87 CONTINUOUS MINER* 32 DPA* 28 JA*0.83 * right [id number] amputation Calcification is seen throughout the bilateral lower extremity arteries. Biphasic waveforms are see n within the right lower extremity aside from a monophasic waveform within the popliteal. Monophasic wave forms predominate throughout the left lower extremity arteries. IMPRESSION: Right [id number] amputation. Peripheral vascular disease without evidence of hemodynamically significant stenosis or occlusion. RPTAT: HLST .Alison Gimenez MD, MD Date Time Electronically viewed and signed by .Alison Gimenez MD, on 10/30/2016 14:51 .T/
--- NOTE | 2016-10-30 16:23 | CONS ---
DATE OF ADMISSION: 10/28/2016 DATE OF CONSULTATION: 10/30/2016 TYPE OF CONSULTATION: Vascular surgery consultation. Dear Doctors: Ms. Link is an 81-year-old female who was evaluated for increased hallucinations and left lower ext remity heel ulcer. Of note, the patient has had a history of right lower extremity below knee amput ation secondary to atherosclerosis and diabetic foot infection. At the moment, the patient is nonve rbal, not able to answer any questions and daughter at the bedside is answering our questions. Diff icult to obtain review of systems as the patient is unable to answer questions. Speaking with the dilcia cohn, she mentioned that she has had history of this heel ulcer since April and has been manag ed by member service specialist; however, she has not seen a vascular surgeon for further evaluation of lower extremity perfusion. PAST MEDICAL HISTORY: Entails hyperlipidemia, diabetes, coronary artery disease, bilateral lower ex tremity atherosclerosis, diabetic neuropathy, hypertension and mood disorder. PAST SURGICAL HISTORY: Right below-knee amputation. FAMILY HISTORY: Positive for diabetes and hypertension. SOCIAL HISTORY: Denies tobacco, alcohol or illicit drug use. ALLERGIES: PENICILLIN. PHYSICAL EXAMINATION: GENERAL: Patient awakes upon stimulation; however, unable to oriented to place and time. HEENT: The patient's eyes are closed. Conjunctivae clear. Normocephalic, atraumatic. Poor denti tion. Mucosa moist. NECK: Supple. No carotid bruit. PULMONARY: Clear to auscultation bilaterally. No crackles. CARDIOVASCULAR: S1, S2 present. No murmurs. ABDOMEN: Soft, nontender, nondistended. Bowel sounds positive. Large truncal obesity. EXTREMITIES: Right lower extremity faint femoral pulse. BKA stump with an ulcer around the knee th at seems to be superficial and no surrounding erythema. The BKA stump has healed and capillary refi ll is about 3 seconds. Left lower extremity palpable femoral pulse, nonpalpable pedal pulse. Motor, sensory is limited as the patient is not able to follow commands. Healed with a necrotic ulcer, no surrounding erythema. Previous first toe amputation site. ASSESSMENT AND PLAN: Bilateral lower extremity atherosclerosis with left lower extremity heel ulcer . It seems the patient has developed a decubitus pressure ulcer that has been gradually worsening. Upon current JA findings, suggestion of monophasic flow. We will plan to obtain a bilateral lowe r extremity arterial studies to further delineate her ____disease. Discussed at the bedside with family member that as we will be limited for vascular intervention for potential limb salvage procedures. Optimize vascular status (BP meds, diet, nutrition, exercise, s ugar control and antiplatelets). Discussed findings, plan and management with the patient and her daughter and they understand. Thank you for allowing us to partake in the care of your patient. Please call with questions. Dictated By: BRIAN JOYCE/CLIVE Conf#: [id number] DID#: [id number]
[2016-10-30] MEDS: DOCUSATE SODIUM 100 MG CAP PO SCH (21:48)
[2016-10-30] MEDS: morphine 2 MG INJ IV PRN (21:48)
[2016-10-31] VITALS (12 sets, daily range): BP systolic 138–183; BP diastolic 62–78; PULSE 51–68; RESP 18–20
[2016-10-31] MEDS: MEROPENEM 1 GM/100 ML (PMX) 100 ML IVPB SCH ×2 (06:02→15:28)
[2016-10-31] MEDS: INSULIN ASPART [NOVOLOG] 3 ML PEN SC SCH ×4 (08:00→21:00)
[2016-10-31] MEDS: NPH, HUMAN INSULIN ISOPHANE 3ML VIAL SC SCH ×2 (09:12→22:32)
[2016-10-31] MEDS: ENOXAPARIN 40 MG/0.4 ML SYG SC SCH (09:15)
[2016-10-31] MEDS: GABAPENTIN 100 MG CAP PO SCH ×3 (09:17→21:44)
[2016-10-31] MEDS: ASPIRIN 81 MG TAB PO SCH (09:18)
[2016-10-31] MEDS: DOCUSATE SODIUM 100 MG CAP PO SCH ×2 (09:18→21:44)
[2016-10-31] MEDS: LOSARTAN 50 MG TAB PO SCH (09:18)
[2016-10-31] MEDS: VANCOMYCIN 1 GM in NS 250 ML IVPB SCH (11:53)
[2016-10-31] MEDS: AMLODIPINE 5 MG TAB PO SCH (11:53)
[2016-10-31] MEDS: SOD CHLORIDE 0.45% 1,000 ML IV SCH (14:00)
--- NOTE | 2016-10-31 20:53 | CONS ---
Date/Time of Note Date/Time of Note DATE: 10/31/16 TIME: 20:49 Assessment/Plan Assessment/Plan Additional Assessment/Plan 1) L heal eschar with cellulitis Site culture is growing Enterococcus and Klebsiella pneumonia that is very sensitive. I will change the meropenem to CIPROFLOXACIN 500mg PO BID pt will need surgical debridement most likely CRP is mildly elevated at 1.6, ESR is 76 Arterial studies from yesterday did not show a significant stenosis. Awaiting MRI Consultation Date/Type/Reason Admit Date/Time Oct 30, 2016 at 14:20 Initial Consult Date 10/30/16 Type of Consultation: Infectious Diseases Referring Provider: CASSIDY UNDERWOOD MD 24 HR Interval Summary Free Text/Dictation Discussed with family at bedside. Patient is eating more over the last two days. Still with discomfort in the foot. Vascular study from yesterday is noted. Subjective hx not possible: other Exam/Review of Systems Vital Signs Vitals Vital Signs Date Time Temp Pulse Resp B/P Pulse Ox O2 Delivery O2 Flow Rate FiO2 10/31/16 20:25 97.5 56 20 138/62 96 10/28/16 17:30 Room Air Intake and Output 10/30/16 10/30/16 10/31/16 15:00 23:00 07:00 Intake Total 730 ml 1140 ml 720 ml Balance 730 ml 1140 ml 720 ml Exam Sleeping comfortably in NAD L ankle is bandaged but no redness to lower calf, toes are warm to touch Results Result Diagram: 10/30/16 1021 10/30/16 1021 Results 24 hrs Laboratory Tests Test 10/30/16 21:43 10/31/16 09:03 10/31/16 11:38 10/31/16 17:36 Bedside Glucose 175 131 222 H 171 Medications Medications Current Medications Sodium Chloride (1/2 NS) 1,000 ml @ 40 mls/hr Q24H IV Last administered on 10/30 14:26; Admin Dose 40 MLS/HR; Start 10/28/16 at 14:00 Ondansetron HCl (Zofran Inj) 4 mg Q6H PRN IV NAUSEA AND/OR VOMITING; Start 10/28 at 09:30 Aspirin (Aspirin) 81 mg DAILY PO Last administered on 10/31/16 09:18; Admin Dose 81 MG; Start 10/29/16 at 09:00 Acetaminophen (Tylenol Tab) 650 mg Q6H PRN PO PAIN LEVEL 1-3 OR FEVER Last administered on 10/28/16 21:06; Admin Dose 650 MG; Start 10/28/16 at 09:30 Enoxaparin Sodium (Lovenox) 40 mg DAILY SC Last administered on 10/31/16 09:15 ; Admin Dose 40 MG; Start 10/29/16 at 09:00 Miscellaneous Information 1 ea NOTE XX ; Start 10/28/16 at 10:00 Glucose (Glutose) 15 gm Q15M PRN PO DECREASED GLUCOSE; Start 10/28/16 at 10:00 Glucose (Glutose) 22.5 gm Q15M PRN PO DECREASED GLUCOSE; Start 10/28/16 at 10:00 Dextrose (D50w Syringe) 25 ml Q15M PRN IV DECREASED GLUCOSE; Start 10/28/16 at 10:00 Dextrose (D50w Syringe) 50 ml Q15M PRN IV DECREASED GLUCOSE; Start 10/28/16 at 10:00 Glucagon (Glucagen) 1 mg Q15M PRN IM DECREASED GLUCOSE; Start 10/28/16 at 10:00 Glucose (Glutose) 15 gm Q15M PRN BUCCAL DECREASED GLUCOSE; Start 10/28/16 at 10: 00 Haloperidol (Haldol) 2 mg HS PRN PO insomnia; Start 10/28/16 at 16:30 Losartan Potassium 100 mg 100 mg DAILY PO Last administered on 10/31/16 09:18 ; Admin Dose 100 MG; Start 10/28/16 at 17:30 Meropenem 100 ml @ 200 mls/hr Q8 IVPB Last administered on 10/31/16 15:28; Admin Dose 200 MLS/HR; Start 10/29/16 at 14:00 Vancomycin HCl (Vancocin) 250 ml @ 125 mls/hr Q24H IVPB Last administered on 11:53; Admin Dose 125 MLS/HR; Start 10/30/16 at 12:00 Methadone HCl (Methadone) 10 mg Q6H PRN PO PAIN; Start 10/29/16 at 13:30 Gabapentin (Neurontin) 100 mg TID PO Last administered on 10/31/16 12:00; Admin Dose 100 MG; Start 10/29/16 at 21:00 Zolpidem Tartrate (Ambien) 5 mg HS PRN PO INSOMNIA; Start 10/29/16 at 23:30 Clonidine (Catapres) 0.1 mg TID PRN PO hypertension; Start 10/30/16 at 10:00 Morphine Sulfate (morphine) 1 mg BID PRN IV pain Last administered on 10/30/16 21:48; Admin Dose 1 MG; Start 10/30/16 at 11:00 Docusate Sodium (Colace) 100 mg BID PO Last administered on 10/31/16 09:18; Admin Dose 100 MG; Start 10/30/16 at 21:00 Insulin Human NPH (Humulin N) 20 unit BID SC ; Start 10/31/16 at 21:00 Amlodipine Besylate (Norvasc) 5 mg DAILY PO Last administered on 10/31/16 11: 53; Admin Dose 5 MG; Start 10/31/16 at 12:00 Miscellaneous Information (*Rx Drug Level Order Reminder*) VANCOMYCIN TROUGH AT 1100 ONCE ONCE XX ; Start 11/01/16 at 11:00; Stop 11/01/16 at 11:01 ALBERTO LEMON Oct 31, 2016 20:53
[2016-10-31] MEDS ORDERED: MEROPENEM 2 GM in SOD CHLORIDE 0.9% 100 ML IVPB SCH (21:00)
[2016-10-31] MEDS: METHADONE 10 MG TAB PO PRN (21:47)
[2016-11-01] VITALS (11 sets, daily range): BP systolic 127–159; BP diastolic 56–65; PULSE 51–54; RESP 18–20
[2016-11-01] MEDS: SOD CHLORIDE 0.45% 1,000 ML IV SCH ×2 (02:46→14:00)
[2016-11-01] MEDS: METHADONE 10 MG TAB PO PRN ×3 (03:12→21:32)
[2016-11-01] MEDS: ASPIRIN 81 MG TAB PO SCH (08:22)
[2016-11-01] MEDS: GABAPENTIN 100 MG CAP PO SCH ×3 (08:23→21:32)
[2016-11-01] MEDS: INSULIN ASPART [NOVOLOG] 3 ML PEN SC SCH ×4 (08:26→21:32)
[2016-11-01] MEDS: NPH, HUMAN INSULIN ISOPHANE 3ML VIAL SC SCH (08:28)
[2016-11-01] MEDS: ENOXAPARIN 40 MG/0.4 ML SYG SC SCH (08:28)
[2016-11-01] MEDS ORDERED: MEROPENEM 1 GM/100 ML (PMX) 100 ML IVPB SCH (09:00)
[2016-11-01] MEDS: DOCUSATE SODIUM 100 MG CAP PO SCH ×2 (09:02→21:32)
[2016-11-01] MEDS: LOSARTAN 50 MG TAB PO SCH (12:46)
[2016-11-01] MEDS: AMLODIPINE 5 MG TAB PO SCH (12:47)
[2016-11-01] MEDS: VANCOMYCIN 1 GM in NS 250 ML IVPB SCH (12:57)
--- NOTE | 2016-11-01 14:26 | PN ---
DATE: 11/01/2016 GENERAL: Patient with no acute changes. PHYSICAL EXAMINATION: VITAL SIGNS: Temperature 97.9, pulse 51, blood pressure 146/56, respirations at 20, pulse ox is 95% on room air. CARDIOVASCULAR: Regular rate and rhythm. LUNGS: Clear to auscultation. ABDOMEN: Nontender, nondistended. ASSESSMENT AND PLAN: 1. Lethargy and hallucinations continue to improve, basically is gone, is thought to be due to alok odiazepines. The patient is not receive any further of the Xanax or Ativan. 2. Lower extremity cellulitis with possibility of osteomyelitis. Cultures came back that was sensi tive to medications. ID evaluated it and had changed the medications to Cipro p.o., but once again recommended debridement, the beef trimmer has already said that unlikely needs to be debrided. Will d iscuss with surgeon to see if different opinion and patient can be debrided or not. Arterial study of the left lower extremity that did not show any stenosis. Diabetes, the sugar still tends to be m ildly elevated. The NPH was increased from 22 a day to b.i.d. We will continue to watch in the nex t 24 hours. 3. Hypertension. Blood pressure still seems around the same since. 4. In the past 24 hours the patient was started on amlodipine on top of the Losartan. We will also continue to watch. Dictated By: RIDGE ABDALLA/CLIVE Conf#: [id number] DID#: [id number]
--- NOTE | 2016-11-01 14:44 | RADRPT ---
Vent Rate: 55 bpm RR Interval: 0 msec AK Interval: 216 msec QRS Duration: 88 msec QT Interval: 394 msec QTC Interval: 376 msec P-R-T [place]: 73 - 5 - 116 degrees Sinus bradycardia with 1st degree AV block Anteroseptal infarct , age undetermined QT prolonged ST amp; T wave abnormality, consider lateral ischemia Abnormal ECG No previous tracing available for comparison Electronically Signed By: Vaughn Weston [id number]
--- NOTE | 2016-11-01 15:26 | CONS ---
Date/Time of Note Date/Time of Note DATE: 11/01/16 TIME: 15:24 Assessment/Plan Assessment/Plan Additional Assessment/Plan 1) L heal eschar with cellulitis Site culture is growing Enterococcus and Klebsiella pneumonia that is very sensitive. I will change the meropenem to changed to CIPROFLOXACIN 500mg PO BID (QTc 376) pt will need surgical debridement most likely CRP is mildly elevated at 1.6, ESR is 76 Arterial studies from Wednesday did not show a significant stenosis. Awaiting MRI Consultation Date/Type/Reason Admit Date/Time Oct 30, 2016 at 14:20 Initial Consult Date 10/30/16 Type of Consultation: Infectious Diseases Referring Provider: CASSIDY UNDERWOOD MD 24 HR Interval Summary Free Text/Dictation D/W family at bedside. Patient continues to eat her meals today. No abdominal nor foot pain. Feels urge for BM but has not been able to go just yet. RN aware Exam/Review of Systems Vital Signs Vitals Vital Signs Date Time Temp Pulse Resp B/P Pulse Ox O2 Delivery O2 Flow Rate FiO2 11/01/16 12:18 53 11/01/16 11:29 97.9 20 146/56 95 10/28/16 17:30 Room Air Intake and Output 10/31/16 10/31/16 11/01/16 15:00 23:00 07:00 Intake Total 820 ml 900 ml Balance 820 ml 900 ml Exam Sleeping comfortably in NAD L ankle is bandaged but no redness to lower calf, toes are warm to touch Results Result Diagram: 10/30/16 1021 10/30/16 1021 Results 24 hrs Laboratory Tests Test 10/31/16 17:36 10/31/16 21:42 11/01/16 07:56 11/01/16 11:00 Bedside Glucose 171 177 187 Vancomycin Level Trough 11.4 Test 11/01/16 12:41 Bedside Glucose 232 H Medications Medications Current Medications Sodium Chloride (1/2 NS) 1,000 ml @ 40 mls/hr Q24H IV Last administered on t 02:46; Admin Dose 40 MLS/HR; Start 10/28/16 at 14:00 Ondansetron HCl (Zofran Inj) 4 mg Q6H PRN IV NAUSEA AND/OR VOMITING; Start 10/28 at 09:30 Aspirin (Aspirin) 81 mg DAILY PO Last administered on 11/01/16 08:22; Admin Dose 81 MG; Start 10/29/16 at 09:00 Acetaminophen (Tylenol Tab) 650 mg Q6H PRN PO PAIN LEVEL 1-3 OR FEVER Last administered on 10/28/16 21:06; Admin Dose 650 MG; Start 10/28/16 at 09:30 Enoxaparin Sodium (Lovenox) 40 mg DAILY SC Last administered on 11/01/16 08:28 ; Admin Dose 40 MG; Start 10/29/16 at 09:00 Miscellaneous Information 1 ea NOTE XX ; Start 10/28/16 at 10:00 Glucose (Glutose) 15 gm Q15M PRN PO DECREASED GLUCOSE; Start 10/28/16 at 10:00 Glucose (Glutose) 22.5 gm Q15M PRN PO DECREASED GLUCOSE; Start 10/28/16 at 10:00 Dextrose (D50w Syringe) 25 ml Q15M PRN IV DECREASED GLUCOSE; Start 10/28/16 at 10:00 Dextrose (D50w Syringe) 50 ml Q15M PRN IV DECREASED GLUCOSE; Start 10/28/16 at 10:00 Glucagon (Glucagen) 1 mg Q15M PRN IM DECREASED GLUCOSE; Start 10/28/16 at 10:00 Glucose (Glutose) 15 gm Q15M PRN BUCCAL DECREASED GLUCOSE; Start 10/28/16 at 10: 00 Haloperidol (Haldol) 2 mg HS PRN PO insomnia; Start 10/28/16 at 16:30 Losartan Potassium 100 mg 100 mg DAILY PO Last administered on 11/01/16 12:46 ; Admin Dose 100 MG; Start 10/28/16 at 17:30 Vancomycin HCl (Vancocin) 250 ml @ 125 mls/hr Q24H IVPB Last administered on 12:57; Admin Dose 125 MLS/HR; Start 10/30/16 at 12:00 Methadone HCl (Methadone) 10 mg Q6H PRN PO PAIN Last administered on 11/01/16 08:23; Admin Dose 10 MG; Start 10/29/16 at 13:30 Gabapentin (Neurontin) 100 mg TID PO Last administered on 11/01/16 12:48; Admin Dose 100 MG; Start 10/29/16 at 21:00 Zolpidem Tartrate (Ambien) 5 mg HS PRN PO INSOMNIA; Start 10/29/16 at 23:30 Clonidine (Catapres) 0.1 mg TID PRN PO hypertension; Start 10/30/16 at 10:00 Morphine Sulfate (morphine) 1 mg BID PRN IV pain Last administered on 10/30/16 21:48; Admin Dose 1 MG; Start 10/30/16 at 11:00 Docusate Sodium (Colace) 100 mg BID PO Last administered on 11/01/16 09:02; Admin Dose 100 MG; Start 10/30/16 at 21:00 Amlodipine Besylate 5 mg 5 mg DAILY PO Last administered on 11/01/16 12:47; Admin Dose 5 MG; Start 10/31/16 at 12:00 Meropenem (Merrem 1 Gm/100 ml (Pmx)) 100 ml @ 200 mls/hr Q12 IVPB Last administered on 11/01/16 09:02; Admin Dose 200 MLS/HR; Start 11/01/16 at 09:00 Insulin Human NPH (Humulin N) 20 unit DAILY@08 SC ; Start 11/02/16 at 08:00 ALBERTO LEMON Nov 01, 2016 15:26
[2016-11-01] MEDS: CIPROFLOXACIN 500 MG TAB NGT SCH (17:20)
[2016-11-01] MEDS ORDERED: NPH, HUMAN INSULIN ISOPHANE 3ML VIAL SC SCH (19:05)
[2016-11-02] VITALS (13 sets, daily range): BP systolic 120–157; BP diastolic 54–69; PULSE 49–64; RESP 14–20
[2016-11-02] MEDS: METHADONE 10 MG TAB PO PRN ×2 (03:53→12:17)
[2016-11-02] MEDS: CIPROFLOXACIN 500 MG TAB NGT SCH ×2 (05:54→17:48)
[2016-11-02] MEDS: ACETAMINOPHEN 325 MG TAB PO PRN (06:03)
--- NOTE | 2016-11-02 07:00 | CONS ---
Date/Time of Note Date/Time of Note DATE: 11/02/16 TIME: 06:57 Assessment/Plan Assessment/Plan Chief Complaint/Hosp Course 1) L heal eschar with cellulitis cx the site get nasal cx and blood cx start vanco/merrem till cx results are back pt will need surgical debridement most likely check ESR, CRP in a.m. if arterial studies have not been done recently they should be repeated 10/30 - spoke to family, no MRI or arterial dopplers were ever done so will order them GNR is growing from wound cx pt will need some debridement of eschar continue with vanco/merrem at present 11/02 - kleb and enterococcus in wound cx continue with cipro and change vanco to doxycycline MRI scan later today, to determine length of treatment arterial studies show PVD but no stenosis Problems: Consultation Date/Type/Reason Admit Date/Time Oct 30, 2016 at 14:20 Initial Consult Date 10/29/16 Type of Consultation: Infectious Diseases Referring Provider: CASSIDY UNDERWOOD MD 24 HR Interval Summary Free Text/Dictation pt has good appetite no V, D still awaits MRI (to be later today) Exam/Review of Systems Vital Signs Vitals Vital Signs Date Time Temp Pulse Resp B/P Pulse Ox O2 Delivery O2 Flow Rate FiO2 11/02/16 04:51 64 11/02/16 04:05 20 132/69 96 11/02/16 00:00 98.6 Intake and Output 11/01/16 11/01/16 11/02/16 15:00 23:00 07:00 Intake Total 720 ml 400 ml Balance 720 ml 400 ml Exam Constitutional: alert Head: normocephalic Eyes: nl sclera Respiratory: clear to auscultation Cardiovascular: regular rate and rhythm Gastrointestinal: non-tender, soft Extremities: other (L ankle is bandaged, no redness beyond the bandage) Results Result Diagram: 10/30/16 1021 10/30/16 1021 Results 24 hrs Laboratory Tests Test 11/01/16 07:56 11/01/16 11:00 11/01/16 12:41 11/01/16 17:12 Bedside Glucose 187 232 H 218 Vancomycin Level Trough 11.4 Test 11/01/16 21:30 11/02/16 02:18 Bedside Glucose 204 199 Medications Medications Current Medications Sodium Chloride (1/2 NS) 1,000 ml @ 40 mls/hr Q24H IV Last administered on 02:46; Admin Dose 40 MLS/HR; Start 10/28/16 at 14:00 Ondansetron HCl (Zofran Inj) 4 mg Q6H PRN IV NAUSEA AND/OR VOMITING; Start 10/28 at 09:30 Aspirin (Aspirin) 81 mg DAILY PO Last administered on 11/01/16 08:22; Admin Dose 81 MG; Start 10/29/16 at 09:00 Acetaminophen (Tylenol Tab) 650 mg Q6H PRN PO PAIN LEVEL 1-3 OR FEVER Last administered on 11/02/16 06:03; Admin Dose 650 MG; Start 10/28/16 at 09:30 Enoxaparin Sodium (Lovenox) 40 mg DAILY SC Last administered on 11/01/16 08:28 ; Admin Dose 40 MG; Start 10/29/16 at 09:00 Miscellaneous Information 1 ea NOTE XX ; Start 10/28/16 at 10:00 Glucose (Glutose) 15 gm Q15M PRN PO DECREASED GLUCOSE; Start 10/28/16 at 10:00 Glucose (Glutose) 22.5 gm Q15M PRN PO DECREASED GLUCOSE; Start 10/28/16 at 10:00 Dextrose (D50w Syringe) 25 ml Q15M PRN IV DECREASED GLUCOSE; Start 10/28/16 at 10:00 Dextrose (D50w Syringe) 50 ml Q15M PRN IV DECREASED GLUCOSE; Start 10/28/16 at 10:00 Glucagon (Glucagen) 1 mg Q15M PRN IM DECREASED GLUCOSE; Start 10/28/16 at 10:00 Glucose (Glutose) 15 gm Q15M PRN BUCCAL DECREASED GLUCOSE; Start 10/28/16 at 10: 00 Haloperidol (Haldol) 2 mg HS PRN PO insomnia; Start 10/28/16 at 16:30 Losartan Potassium 100 mg 100 mg DAILY PO Last administered on 11/01/16 12:46 ; Admin Dose 100 MG; Start 10/28/16 at 17:30 Vancomycin HCl (Vancocin) 250 ml @ 125 mls/hr Q24H IVPB Last administered on 12:57; Admin Dose 125 MLS/HR; Start 10/30/16 at 12:00 Methadone HCl (Methadone) 10 mg Q6H PRN PO PAIN Last administered on 11/02/16 03:53; Admin Dose 10 MG; Start 10/29/16 at 13:30 Gabapentin (Neurontin) 100 mg TID PO Last administered on 11/01/16 21:32; Admin Dose 100 MG; Start 10/29/16 at 21:00 Zolpidem Tartrate (Ambien) 5 mg HS PRN PO INSOMNIA; Start 10/29/16 at 23:30 Clonidine (Catapres) 0.1 mg TID PRN PO hypertension; Start 10/30/16 at 10:00 Morphine Sulfate (morphine) 1 mg BID PRN IV pain Last administered on 10/30/16 21:48; Admin Dose 1 MG; Start 10/30/16 at 11:00 Docusate Sodium (Colace) 100 mg BID PO Last administered on 11/01/16 21:32; Admin Dose 100 MG; Start 10/30/16 at 21:00 Amlodipine Besylate (Norvasc) 5 mg DAILY PO Last administered on 11/01/16 12: 47; Admin Dose 5 MG; Start 10/31/16 at 12:00 Insulin Human NPH (Humulin N) 20 unit DAILY@08 SC ; Start 11/02/16 at 08:00 Ciprofloxacin (Cipro) 500 mg BID@06,18 NGT Last administered on 11/02/16 05:54 ; Admin Dose 500 MG; Start 11/01/16 at 18:00 ANTHONY WOODARD MD Nov 02, 2016 07:00
--- NOTE | 2016-11-02 07:51 | PN ---
DATE: 10/31/2016 SUBJECTIVE: The patient does not have family at bedside, is awake today, appears to be oriented, n o acute distress, had an arterial study of the left lower extremity which was negative for occlusion . Currently is still on vancomycin and Merrem. No debridement is necessary via podiatry. OBJECTIVE: VITAL SIGNS: Temperature is 98.2, pulse is 57, respirations at 20, blood pressure is between 146 to 183/63 to 78, pulse ox is 96% on room air. HEENT: Normocephalic, atraumatic. LUNGS: Clear to auscultation bilaterally. CARDIOVASCULAR: Regular rate and rhythm. ABDOMEN: Soft, nontender. LABORATORY DATA: The arterial study of the left lower extremity demonstrated no occlusions. Cultur e of the left heel demonstrated Klebsiella pneumoniae which was sensitive to medications, Enterococc us and yeast. ASSESSMENT AND PLAN: 1. Lethargy, altered mental status. It appears that this was driven by Xanax and she received Ativ an 2 nights ago. The patient has not received any more benzodiazepines. It appears that this has r esolved back to baseline. 2. Lower extremity cellulitis. A workup is in progress for possibility of osteomyelitis. The nader ent is on vancomycin and Merrem. So far, first cultures back are demonstrating Klebsiella pneumonia e and Enterococcus with the yeast. Infectious disease is currently following. Podiatry has evaluate d and deemed it not necessary for debridement. Vascular has evaluated and workup is in progress, wh ich appears to be negative for vascular insufficiency. 3. Current plan is to continue with antibiotics via infectious disease. An MRI was supposed to be performed for lower extremity. We will await any results for that to rule out osteo. 4. Diabetes. The patient normally at a much higher dose of medications. Currently, her Accu-Cheks have been mildly under control. Normally the patient is on 70/30 of insulin; currently now she is only receiving NPH with the sliding scale. The patient used to receive 40 in the p.m. and 20 in the morning. Now, she is only on 20 in the morning, we will make this b.i.d. to get under better contr ol. Blood pressure has been mildly elevated. The average is about 140 and in the mornings it is 170. W e will add amlodipine to her Losartan and see if this improves. Dictated By: RIDGE ABDALLA/NTS Conf#: [id number] DID#: [id number]
[2016-11-02 08:05] LABS: CREATININE 0.77 mg/dl (0.44-1.00)
[2016-11-02] MEDS: AMLODIPINE 5 MG TAB PO SCH (09:16)
[2016-11-02] MEDS: ASPIRIN 81 MG TAB PO SCH (09:16)
[2016-11-02] MEDS: DOXYCYCLINE 100 MG TAB PO SCH ×2 (09:16→21:31)
[2016-11-02] MEDS: GABAPENTIN 100 MG CAP PO SCH ×3 (09:17→21:31)
[2016-11-02] MEDS: LOSARTAN 50 MG TAB PO SCH (09:17)
[2016-11-02] MEDS: DOCUSATE SODIUM 100 MG CAP PO SCH ×2 (09:17→21:31)
[2016-11-02] MEDS: INSULIN ASPART [NOVOLOG] 3 ML PEN SC SCH ×4 (09:19→21:00)
[2016-11-02] MEDS: ENOXAPARIN 40 MG/0.4 ML SYG SC SCH (09:19)
[2016-11-02] MEDS: NPH, HUMAN INSULIN ISOPHANE 3ML VIAL SC SCH ×2 (09:21→18:25)
[2016-11-02] MEDS: SOD CHLORIDE 0.45% 1,000 ML IV SCH ×2 (12:14→13:35)
--- NOTE | 2016-11-02 22:49 | PN ---
Date/Time of Note Date/Time of Note DATE: 11/02/16 TIME: 22:38 Assessment/Plan Lines/Catheters IV Catheter Type (from Nrs): Peripheral IV Sullivan in Place (from Nrs): No Assessment/Plan Chief Complaint/Hosp Course -Bilateral lower extremity atherosclerosis with left lower extremity heel ulcer. It seems the patient has developed a decubitus pressure ulcer that has been gradually worsening. Upon bilateral lower extremity arterial studies no flow-limiting stenosis identified. Therefore will follow pts progress with our multidisciplinary -Discussed at the bedside with family member that as we will be limited for vascular intervention for potential limb salvage procedures. -Optimize vascular status (BP meds, diet, nutrition, exercise, sugar control and antiplatelets). -Discussed findings, plan and management with the patient and her daughter and they understand. -Thank you for allowing us to partake in the care of your patient. Please call with questions. Problems: Subjective 24 Hr Interval Summary no new vascular events overnight Exam/Review of Systems Vital Signs Vitals Vital Signs Date Time Temp Pulse Resp B/P Pulse Ox O2 Delivery O2 Flow Rate FiO2 11/02/16 19:56 98.2 54 14 135/59 97 Intake and Output 11/01/16 11/01/16 11/02/16 15:00 23:00 07:00 Intake Total 720 ml 400 ml Balance 720 ml 400 ml Exam Free Text/Dictation GENERAL: Patient awakes upon stimulation; PULMONARY: Clear to auscultation bilaterally CARDIOVASCULAR: S1, S2 present ABDOMEN: Soft, nontender, nondistended. Bowel sounds positive. Large truncal obesity. EXTREMITIES: Right lower extremity faint femoral pulse. 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 The BKA stump has healed and capillary refill is about 3 seconds. Left lower extremity palpable femoral pulse, nonpalpable pedal pulse. Motor, sensory is limited as the patient is not able to follow commands. Healed with a necrotic ulcer, Previous first toe amputation site. Results Result Diagram: 10/30/16 1021 11/02/16 0706 BRIAN CORREA MD Nov 02, 2016 22:49
[2016-11-03] VITALS (11 sets, daily range): BP systolic 107–158; BP diastolic 53–71; PULSE 45–67; RESP 16–20
[2016-11-03] MEDS: CIPROFLOXACIN 500 MG TAB NGT SCH ×2 (06:17→18:24)
--- NOTE | 2016-11-03 06:57 | PN ---
DATE: 11/02/2016 SUBJECTIVE: No acute changes. PHYSICAL EXAMINATION: VITAL SIGNS: Temperature is 97.6, blood pressure 120/56, respirations at 20, pulse is 51, pulse ox is 97% on room air. CARDIOVASCULAR: Regular rate and rhythm. LUNGS: Clear to auscultation bilaterally. ABDOMEN: Nontender, nondistended. ASSESSMENT AND PLAN: 1. Left lower extremity cellulitis, rule out osteomyelitis. She had an arterial study which was ne jennifer. Podiatry evaluated. No debridement at this time, elevated ESR, ID changed her antibiotics due to sensitivities to doxycycline and Cipro. Once MRI is back, if it is likely osteo, then will r econsult surgery for the debridement. 2. Altered mental status appears resolved. 3. Diabetes. Sugars are still on the elevated side. We will increase back to her normal dose, whi ch was 20 units in the morning and 40 units in the evening. Blood pressure is better with the amlod ipine that was added. Dictated By: RIDGE ABDALLA/CLIVE Conf#: [id number] DID#: [id number]
[2016-11-03] MEDS: INSULIN ASPART [NOVOLOG] 3 ML PEN SC SCH ×4 (08:00→20:44)
[2016-11-03] MEDS: DOCUSATE SODIUM 100 MG CAP PO SCH ×2 (08:15→20:39)
[2016-11-03] MEDS: ASPIRIN 81 MG TAB PO SCH (08:16)
[2016-11-03] MEDS: LOSARTAN 50 MG TAB PO SCH (08:16)
[2016-11-03] MEDS: AMLODIPINE 5 MG TAB PO SCH (08:16)
[2016-11-03] MEDS: GABAPENTIN 100 MG CAP PO SCH ×3 (08:16→20:39)
[2016-11-03] MEDS: ENOXAPARIN 40 MG/0.4 ML SYG SC SCH (08:17)
[2016-11-03] MEDS: DOXYCYCLINE 100 MG TAB PO SCH ×2 (08:22→20:39)
[2016-11-03] MEDS: NPH, HUMAN INSULIN ISOPHANE 3ML VIAL SC SCH ×2 (08:23→18:22)
[2016-11-03] MEDS: morphine 2 MG INJ IV PRN (08:33)
--- NOTE | 2016-11-03 11:12 | RADRPT ---
PROCEDURE: MRI OF THE LEFT ANKLE. CLINICAL INDICATION: Possible osteomyelitis TECHNIQUE: Multiple MR pulse sequences in multiple planes were obtained. Images were interpreted on high-resolution PACS system. COMPARISON: FINDINGS: Tendons: There is subcutaneous and skin ulceration noted at the posterior aspect of the ankle likely yielding exposed calcaneus. No drainable fluid collection is seen. There is an abrupt blunting of the Achilles tendon seen on the sagittal sequence image 12 either from prior surgery or involvement of the patient's infection/ulceration. The remaining tendons appear maintained. There is cortical destruction and abnormal bone marrow signal is inclusive of T1 marrow infiltration and bone marrow edema at the posterior margin of the calcaneus consistent with osteomyelitis. Abnor mal bone marrow signal measures approximately 6 mm from the posterior cortex and extending anteriorl y. Bone marrow signal elsewhere the hind foot is normal without additional foci of osteomyelitis. A trace tibiotalar joint effusion is identified. Nonspecific bone marrow edema is noted at the dista l fifth metatarsal, although partially assessed. IMPRESSION: 1. Marked skin subcutaneous ulceration at the posterior margin of the calcaneus extending to bone. 2. Evidence of osteomyelitis at the posterior calcaneal margin in this region. 3. Partially assessed nonspecific bone marrow edema at the distal aspect of the fifth metatarsal. 4. A broad blunting of the distal Achilles tendon 1.3 cm proximal to its insertion of a from prior surgery/tear or related to the patient's infection/ulcer. 5. No evidence for a drainable fluid collection. RPTAT: VV .Marcial Kothari MD, MD Date Time Electronically viewed and signed by .Marcial Kothari MD, MD on 11/03/2016 11:12 .d/
[2016-11-03] MEDS: SOD CHLORIDE 0.45% 1,000 ML IV SCH (15:43)
[2016-11-03] MEDS: METHADONE 10 MG TAB PO PRN ×2 (15:47→23:34)
[2016-11-04] VITALS (14 sets, daily range): BP systolic 120–148; BP diastolic 60–79; PULSE 51–180; RESP 14–20
[2016-11-04] MEDS: CIPROFLOXACIN 500 MG TAB NGT SCH ×2 (06:30→18:59)
--- NOTE | 2016-11-04 07:00 | PN ---
DATE: 11/03/2016 SUBJECTIVE: The patient is now resting comfortably. The patient was given morphine, and it seems t o have knocked her out. Positive for MRI of the ankle for osteomyelitis. OBJECTIVE: VITAL SIGNS: Temperature 98.2, pulse is 54, respirations 16, blood pressure is at 107/56, pulse ox is at 96% on room air. HEENT: Normocephalic, atraumatic. EYES: Pupils equal, round, react to light and accommodation. CARDIOVASCULAR: Regular rhythm. LUNGS: Clear to auscultation. No wheeze. IMAGING: Ankle MRI with evidence of osteomyelitis at the posterior calcaneal margin. ASSESSMENT AND PLAN: 1. Left lower extremity cellulitis with osteomyelitis. We will once again call the surgeons for th e possibility of debridement and bone biopsy. Discussed with ID. 2. Sedation. Discussed with nurse to decrease the morphine that she is receiving. The patient is currently knocked out all morning. The patient is to try her methadone instead. 3. Diabetes. The patient saw the endocrine consult and suggesting Lantus. The patient's insurance does not cover Lantus. We will not start a medication that she is not able to get as an outpatient . We will, at this time, continue with the NPH. Dictated By: RIDGE ABDALLA/CLIVE Conf#: [id number] DID#: [id number]
--- NOTE | 2016-11-04 07:13 | CONS ---
Date/Time of Note Date/Time of Note DATE: 11/04/16 TIME: 07:10 Assessment/Plan Assessment/Plan Chief Complaint/Hosp Course 1) L heal eschar with cellulitis cx the site get nasal cx and blood cx start vanco/merrem till cx results are back pt will need surgical debridement most likely check ESR, CRP in a.m. if arterial studies have not been done recently they should be repeated 10/30 - spoke to family, no MRI or arterial dopplers were ever done so will order them GNR is growing from wound cx pt will need some debridement of eschar continue with vanco/merrem at present 11/02 - kleb and enterococcus in wound cx continue with cipro and change vanco to doxycycline MRI scan later today, to determine length of treatment arterial studies show PVD but no stenosis 11/04 - MRI confirms osteo continue with cipro/doxy thru 12/10 check weekly ESR, cbc, bmp while on antibiotics to monitor treatment if possible debridement she should probably have wound care as outpt from ID perspective she is ok for d/c, once decision on debridement is made Problems: Consultation Date/Type/Reason Admit Date/Time Oct 30, 2016 at 14:20 Initial Consult Date 10/29/16 Type of Consultation: Infectious Diseases Referring Provider: CASSIDY UNDERWOOD MD 24 HR Interval Summary Free Text/Dictation spoke to daughter no V, D appetite is good no SOB Exam/Review of Systems Vital Signs Vitals Vital Signs Date Time Temp Pulse Resp B/P Pulse Ox O2 Delivery O2 Flow Rate FiO2 11/04/16 04:18 51 11/04/16 03:30 98.0 20 143/79 96 Intake and Output 11/03/16 11/03/16 11/04/16 15:00 23:00 07:00 Intake Total 1100 ml 670 ml Balance 1100 ml 670 ml Exam Constitutional: alert Head: normocephalic Eyes: nl sclera ENMT: mucosa pink and moist Respiratory: clear to auscultation Cardiovascular: regular rate and rhythm Gastrointestinal: non-tender, soft Extremities: other (L ankle is bandaged) Results Result Diagram: 11/02/16 0706 Results 24 hrs Laboratory Tests Test 11/03/16 08:20 11/03/16 12:09 11/03/16 18:16 11/03/16 20:38 Bedside Glucose 123 205 169 138 Medications Medications Current Medications Sodium Chloride (1/2 NS) 1,000 ml @ 40 mls/hr Q24H IV Last administered on 15:43; Admin Dose 40 MLS/HR; Start 10/28/16 at 14:00 Ondansetron HCl (Zofran Inj) 4 mg Q6H PRN IV NAUSEA AND/OR VOMITING; Start 10/28 at 09:30 Aspirin (Aspirin) 81 mg DAILY PO Last administered on 11/03/16 08:16; Admin Dose 81 MG; Start 10/29/16 at 09:00 Acetaminophen (Tylenol Tab) 650 mg Q6H PRN PO PAIN LEVEL 1-3 OR FEVER Last administered on 11/02/16 06:03; Admin Dose 650 MG; Start 10/28/16 at 09:30 Enoxaparin Sodium (Lovenox) 40 mg DAILY SC Last administered on 11/03/16 08:17 ; Admin Dose 40 MG; Start 10/29/16 at 09:00 Miscellaneous Information 1 ea NOTE XX ; Start 10/28/16 at 10:00 Glucose (Glutose) 15 gm Q15M PRN PO DECREASED GLUCOSE; Start 10/28/16 at 10:00 Glucose (Glutose) 22.5 gm Q15M PRN PO DECREASED GLUCOSE; Start 10/28/16 at 10:00 Dextrose (D50w Syringe) 25 ml Q15M PRN IV DECREASED GLUCOSE; Start 10/28/16 at 10:00 Dextrose (D50w Syringe) 50 ml Q15M PRN IV DECREASED GLUCOSE; Start 10/28/16 at 10:00 Glucagon (Glucagen) 1 mg Q15M PRN IM DECREASED GLUCOSE; Start 10/28/16 at 10:00 Glucose (Glutose) 15 gm Q15M PRN BUCCAL DECREASED GLUCOSE; Start 10/28/16 at 10: 00 Haloperidol (Haldol) 2 mg HS PRN PO insomnia; Start 10/28/16 at 16:30 Losartan Potassium (Cozaar) 100 mg DAILY PO Last administered on 11/03/16 08: 16; Admin Dose 100 MG; Start 10/28/16 at 17:30 Methadone HCl (Methadone) 10 mg Q6H PRN PO PAIN Last administered on 11/03/16 23:34; Admin Dose 10 MG; Start 10/29/16 at 13:30 Gabapentin (Neurontin) 100 mg TID PO Last administered on 11/03/16 20:39; Admin Dose 100 MG; Start 10/29/16 at 21:00 Zolpidem Tartrate (Ambien) 5 mg HS PRN PO INSOMNIA; Start 10/29/16 at 23:30 Clonidine (Catapres) 0.1 mg TID PRN PO hypertension; Start 10/30/16 at 10:00 Morphine Sulfate (morphine) 1 mg BID PRN IV pain Last administered on 08:33; Admin Dose 1 MG; Start 10/30/16 at 11:00 Docusate Sodium (Colace) 100 mg BID PO Last administered on 11/03/16 20:39; Admin Dose 100 MG; Start 10/30/16 at 21:00 Amlodipine Besylate (Norvasc) 5 mg DAILY PO Last administered on 11/03/16 08: 16; Admin Dose 5 MG; Start 10/31/16 at 12:00 Insulin Human NPH (Humulin N) 20 unit DAILY@08 SC Last administered on 08:23; Admin Dose 20 UNIT; Start 11/02/16 at 08:00 Ciprofloxacin (Cipro) 500 mg BID@06,18 NGT Last administered on 11/04/16 06:30 ; Admin Dose 500 MG; Start 11/01/16 at 18:00 Doxycycline Hyclate (Vibramycin) 100 mg BID PO Last administered on 11/03/16 20:39; Admin Dose 100 MG; Start 11/02/16 at 09:00 ANTHONY WOODARD MD Nov 04, 2016 07:13
[2016-11-04] MEDS: INSULIN ASPART [NOVOLOG] 3 ML PEN SC SCH ×4 (07:55→21:00)
[2016-11-04] MEDS: NPH, HUMAN INSULIN ISOPHANE 3ML VIAL SC SCH ×2 (07:57→17:40)
[2016-11-04] MEDS: DOXYCYCLINE 100 MG TAB PO SCH ×2 (09:05→21:34)
[2016-11-04] MEDS: AMLODIPINE 5 MG TAB PO SCH (09:06)
[2016-11-04] MEDS: DOCUSATE SODIUM 100 MG CAP PO SCH ×2 (09:06→22:22)
[2016-11-04] MEDS: ASPIRIN 81 MG TAB PO SCH (09:06)
[2016-11-04] MEDS: GABAPENTIN 100 MG CAP PO SCH ×3 (09:06→21:34)
[2016-11-04] MEDS: LOSARTAN 50 MG TAB PO SCH (09:06)
[2016-11-04] MEDS: ENOXAPARIN 40 MG/0.4 ML SYG SC SCH (09:07)
[2016-11-04] MEDS: METHADONE 10 MG TAB PO PRN (09:20)
--- NOTE | 2016-11-04 17:23 | PN ---
Date/Time of Note Date/Time of Note DATE: 11/04/16 TIME: 17:20 Assessment/Plan Lines/Catheters IV Catheter Type (from Nrs): Peripheral IV Sullivan in Place (from Nrs): No Assessment/Plan Chief Complaint/Hosp Course -Bilateral lower extremity atherosclerosis with left lower extremity heel ulcer. It seems the patient has developed a decubitus pressure ulcer that has been gradually worsening. Upon bilateral lower extremity arterial studies no flow-limiting stenosis identified. Therefore will follow pts progress with our multidisciplinary team. -Wound care per podiatry and will follow wound progress post debridement -Discussed at the bedside with family member that as we will be limited for vascular intervention for potential limb salvage procedures. -Optimize vascular status (BP meds, diet, nutrition, exercise, sugar control and antiplatelets). -Discussed findings, plan and management with the patient and her daughter and they understand. -Thank you for allowing us to partake in the care of your patient. Please call with questions. Problems: Subjective 24 Hr Interval Summary No new vascular changes overnight Exam/Review of Systems Vital Signs Vitals Vital Signs Date Time Temp Pulse Resp B/P Pulse Ox O2 Delivery O2 Flow Rate FiO2 11/04/16 16:27 53 11/04/16 15:29 98.4 14 148/65 94 Intake and Output 11/03/16 11/03/16 11/04/16 15:00 23:00 07:00 Intake Total 1100 ml 670 ml Balance 1100 ml 670 ml Exam Free Text/Dictation GENERAL: Patient awakes upon stimulation; PULMONARY: Clear to auscultation bilaterally CARDIOVASCULAR: S1, S2 present ABDOMEN: Soft, nontender, nondistended. Bowel sounds positive. Large truncal obesity. EXTREMITIES: Right lower extremity faint femoral pulse. 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 The BKA stump has healed and capillary refill is about 3 seconds. Left lower extremity palpable femoral pulse, nonpalpable pedal pulse. Motor, sensory is limited as the patient is not able to follow commands. Heal with a necrotic ulcer, Previous first toe amputation site. Results Result Diagram: 11/02/16 0706 BRIAN CORREA MD Nov 04, 2016 17:23
[2016-11-05] VITALS (11 sets, daily range): BP systolic 116–148; BP diastolic 45–63; PULSE 50–58; RESP 17–20
[2016-11-05] MEDS: CIPROFLOXACIN 500 MG TAB PO SCH ×2 (05:53→18:02)
[2016-11-05 08:27] LABS: ADD SCAN DIFF NO
[2016-11-05 08:37] LABS: BASOPHIL # 0.1 10^3/ul (0.0-0.1); BASOPHILS % 0.6 % (0.0-2.0); EOSINOPHILS # 0.5 10^3/ul (0.0-0.5); EOSINOPHILS % 4.5 % (0.0-7.0); HEMATOCRIT 40.8 % (37.0-47.0); HEMOGLOBIN 13.6 g/dl (12.0-16.0); LYMPHOCYTES # 3.3 10^3/ul (0.8-2.9); LYMPHOCYTES % 30.2 % (15.0-51.0); MEAN CORPUSCULAR HEMOGLOBIN 30.2 pg (29.0-33.0); MEAN CORPUSCULAR HGB CONC 33.3 g/dl (32.0-37.0); MEAN CORPUSCULAR VOLUME 90.5 fl (82.0-101.0); MONOCYTE # 1.1 10^3/ul (0.3-0.9); MONOCYTES % 10.2 % (0.0-11.0); NEUTROPHIL # 5.9 10^3/ul (1.6-7.5); PLATELET COUNT 257 10^3/UL (140-415); RED BLOOD COUNT 4.51 10^6/ul (4.20-5.40); RED CELL DISTRIBUTION WIDTH 14.1 % (11.5-14.5)
[2016-11-05] MEDS: NPH, HUMAN INSULIN ISOPHANE 3ML VIAL SC SCH ×2 (08:38→18:08)
[2016-11-05] MEDS: ENOXAPARIN 40 MG/0.4 ML SYG SC SCH (08:39)
[2016-11-05] MEDS: INSULIN ASPART [NOVOLOG] 3 ML PEN SC SCH ×4 (08:39→21:00)
[2016-11-05] MEDS: ASPIRIN 81 MG TAB PO SCH (08:40)
[2016-11-05] MEDS: DOXYCYCLINE 100 MG TAB PO SCH ×2 (08:40→21:15)
[2016-11-05] MEDS: GABAPENTIN 100 MG CAP PO SCH ×3 (08:41→21:15)
[2016-11-05] MEDS: DOCUSATE SODIUM 100 MG CAP PO SCH ×2 (08:42→21:00)
[2016-11-05] MEDS: LOSARTAN 50 MG TAB PO SCH (08:42)
[2016-11-05] MEDS: AMLODIPINE 5 MG TAB PO SCH (08:42)
[2016-11-05 09:26] LABS: C-REACTIVE PROTEIN 2.9 mg/dl (0.0-0.9); CALCIUM 9.5 mg/dl (8.4-10.2); CREATININE 1.13 mg/dl (0.44-1.00); POTASSIUM 3.8 mmol/L (3.5-5.1)
--- NOTE | 2016-11-05 13:14 | PN ---
DATE: 11/05/2016 SUBJECTIVE: Podiatry has been consulted and will be proceeding with a debridement today. OBJECTIVE: VITAL SIGNS: Blood pressure is 123/45, respirations 18, pulse is 59, temperature is 98.0, pulse ox is 98%. CARDIOVASCULAR: Regular rate and rhythm. LUNGS: Clear to auscultation. ABDOMEN: Soft, nontender. ASSESSMENT AND PLAN: 1. Left heel with ulcer, cellulitis, osteomyelitis. MRI confirmed the osteomyelitis. Antibiotics h ave been changed to Cipro/doxycycline, and this will continue up until 12/10/2016. Podiatry has bee n consulted for bedside debridement, possible bone biopsy and culture. The patient has been cleared for discharge via ID after debridement . 2. Lethargy. Resolved. 3. Diabetes. The patient is to return back to her regular medications as she took prior to admissi on. 4. Hypertension. Blood pressure has been stable. The patient is on a new medication on top of her Losartan, which is amlodipine, at the time of discharge. We will need to add this medication to he r regimen. Dictated By: RIDGE ABDALLA/CLIVE Conf#: [id number] DID#: [id number]
[2016-11-05] MEDS: METHADONE 10 MG TAB PO PRN (18:03)
[2016-11-05] MEDS ORDERED: ARTIFICIAL TEARS 15 ML OPH BOTH EYES PRN (19:00)
[2016-11-06] VITALS (10 sets, daily range): BP systolic 143–166; BP diastolic 59–69; PULSE 56–58; RESP 18–20
[2016-11-06] MEDS: CIPROFLOXACIN 500 MG TAB PO SCH ×2 (05:17→17:47)
[2016-11-06] MEDS: INSULIN ASPART [NOVOLOG] 3 ML PEN SC SCH ×3 (08:00→17:47)
[2016-11-06] MEDS: GABAPENTIN 100 MG CAP PO SCH ×2 (08:14→13:04)
[2016-11-06] MEDS: LOSARTAN 50 MG TAB PO SCH (08:14)
[2016-11-06] MEDS: DOCUSATE SODIUM 100 MG CAP PO SCH (08:14)
[2016-11-06] MEDS: ASPIRIN 81 MG TAB PO SCH (08:14)
[2016-11-06] MEDS: DOXYCYCLINE 100 MG TAB PO SCH (08:14)
[2016-11-06] MEDS: AMLODIPINE 5 MG TAB PO SCH (08:16)
[2016-11-06] MEDS: ENOXAPARIN 40 MG/0.4 ML SYG SC SCH (08:26)
[2016-11-06] MEDS: NPH, HUMAN INSULIN ISOPHANE 3ML VIAL SC SCH (08:26)
--- NOTE | 2016-11-06 10:12 | CONS ---
Date/Time of Note Date/Time of Note DATE: 11/06/16 TIME: 10:09 Assessment/Plan Assessment/Plan Chief Complaint/Hosp Course 1) L heal eschar with cellulitis cx the site get nasal cx and blood cx start vanco/merrem till cx results are back pt will need surgical debridement most likely check ESR, CRP in a.m. if arterial studies have not been done recently they should be repeated 10/30 - spoke to family, no MRI or arterial dopplers were ever done so will order them GNR is growing from wound cx pt will need some debridement of eschar continue with vanco/merrem at present 11/02 - kleb and enterococcus in wound cx continue with cipro and change vanco to doxycycline MRI scan later today, to determine length of treatment arterial studies show PVD but no stenosis 11/04 - MRI confirms osteo continue with cipro/doxy thru 12/10 check weekly ESR, cbc, bmp while on antibiotics to monitor treatment if possible debridement she should probably have wound care as outpt from ID perspective she is ok for d/c, once decision on debridement is made 11/06 - GNR is growing from wound cx with ankle debridement done yesterday continue with current regimen can follow-up cx as outpatient prior GNR in wound cx (kleb) was sensitive to cipro Problems: Consultation Date/Type/Reason Admit Date/Time Oct 30, 2016 at 14:20 Initial Consult Date 10/29/16 Type of Consultation: Infectious Diseases Referring Provider: CASSIDY UNDERWOOD MD 24 HR Interval Summary Free Text/Dictation no N, V, D no SOB pain to foot is controlled with current pain regimen Exam/Review of Systems Vital Signs Vitals Vital Signs Date Time Temp Pulse Resp B/P Pulse Ox O2 Delivery O2 Flow Rate FiO2 11/06/16 08:31 98.1 59 20 157/69 96 Intake and Output 11/05/16 11/05/16 11/06/16 15:00 23:00 07:00 Intake Total 600 ml 240 ml Balance 600 ml 240 ml Exam Constitutional: alert Head: normocephalic Eyes: nl sclera Respiratory: clear to auscultation Cardiovascular: regular rate and rhythm Gastrointestinal: non-tender, soft Extremities: other (R ankle is bandaged) Results Result Diagram: 11/05/16 0715 11/05/16 0715 Results 24 hrs Laboratory Tests Test 11/05/16 12:23 11/05/16 17:52 11/05/16 21:21 11/06/16 08:11 Bedside Glucose 173 182 135 123 Medications Medications Current Medications Ondansetron HCl (Zofran Inj) 4 mg Q6H PRN IV NAUSEA AND/OR VOMITING; Start 10/28 at 09:30 Aspirin (Aspirin) 81 mg DAILY PO Last administered on 11/06/16 08:14; Admin Dose 81 MG; Start 10/29/16 at 09:00 Acetaminophen (Tylenol Tab) 650 mg Q6H PRN PO PAIN LEVEL 1-3 OR FEVER Last administered on 11/02/16 06:03; Admin Dose 650 MG; Start 10/28/16 at 09:30 Enoxaparin Sodium (Lovenox) 40 mg DAILY SC Last administered on 11/06/16 08:26 ; Admin Dose 40 MG; Start 10/29/16 at 09:00 Miscellaneous Information 1 ea NOTE XX ; Start 10/28/16 at 10:00 Glucose (Glutose) 15 gm Q15M PRN PO DECREASED GLUCOSE; Start 10/28/16 at 10:00 Glucose (Glutose) 22.5 gm Q15M PRN PO DECREASED GLUCOSE; Start 10/28/16 at 10:00 Dextrose (D50w Syringe) 25 ml Q15M PRN IV DECREASED GLUCOSE; Start 10/28/16 at 10:00 Dextrose (D50w Syringe) 50 ml Q15M PRN IV DECREASED GLUCOSE; Start 10/28/16 at 10:00 Glucagon (Glucagen) 1 mg Q15M PRN IM DECREASED GLUCOSE; Start 10/28/16 at 10:00 Glucose (Glutose) 15 gm Q15M PRN BUCCAL DECREASED GLUCOSE; Start 10/28/16 at 10: 00 Haloperidol (Haldol) 2 mg HS PRN PO insomnia; Start 10/28/16 at 16:30 Losartan Potassium (Cozaar) 100 mg DAILY PO Last administered on 11/06/16 08: 14; Admin Dose 100 MG; Start 10/28/16 at 17:30 Methadone HCl (Methadone) 10 mg Q6H PRN PO PAIN Last administered on 11/05/16 18:03; Admin Dose 10 MG; Start 10/29/16 at 13:30 Gabapentin (Neurontin) 100 mg TID PO Last administered on 11/06/16 08:14; Admin Dose 100 MG; Start 10/29/16 at 21:00 Zolpidem Tartrate (Ambien) 5 mg HS PRN PO INSOMNIA; Start 10/29/16 at 23:30 Clonidine (Catapres) 0.1 mg TID PRN PO hypertension; Start 10/30/16 at 10:00 Docusate Sodium (Colace) 100 mg BID PO Last administered on 11/06/16 08:14; Admin Dose 100 MG; Start 10/30/16 at 21:00 Amlodipine Besylate (Norvasc) 5 mg DAILY PO Last administered on 11/06/16 08: 16; Admin Dose 5 MG; Start 10/31/16 at 12:00 Insulin Human NPH (Humulin N) 20 unit DAILY@08 SC Last administered on 08:26; Admin Dose 20 UNIT; Start 11/02/16 at 08:00 Doxycycline Hyclate (Vibramycin) 100 mg BID PO Last administered on 11/06/16 08:14; Admin Dose 100 MG; Start 11/02/16 at 09:00 Ciprofloxacin (Cipro) 500 mg BID@06,18 PO Last administered on 11/06/16 05:17 ; Admin Dose 500 MG; Start 11/05/16 at 06:00 Eye Lubricant (Artificial Tears Oph) 2 drop Q6H PRN BOTH EYES DRY EYES; Start 11/05/16 at 19:00 ANTHONY WOODARD MD Nov 06, 2016 10:12
[2016-11-06] MEDS: METHADONE 10 MG TAB PO PRN ×2 (10:33→16:36)
--- NOTE | 2016-11-06 13:11 | CONS ---
DATE OF ADMISSION: 10/30/2016 DATE OF CONSULTATION: 11/05/2016 TYPE OF CONSULTATION: Podiatric REASON FOR CONSULTATION: Necrotic heel wound of the left foot. HISTORY OF PRESENT ILLNESS: The patient is an elderly female with history of diabetes as w ell as a previous [id number] amputation of the right leg. The patient is being seen for evaluat ion and management of a decubitus ulceration with evidence of cellulitis as well as osteomyelitis of the left foot. PAST MEDICAL HISTORY: The patient's past medical history includes diabetes mellitus as well as a ce llulitis. LOWER EXTREMITY PHYSICAL EXAMINATION: CIRCULATION: DP and PT pulses of the left foot are nonpalpable. CFT is greater than 3 seconds. Th ere is no edema noted. There is no digital hair growth noted on the left. Also, the patient has pr evious digital amputations of the left foot including the second digit. The patient had a previous [id number] amputation of the right leg. The patient has decreased muscle strength. The patient has decreased range of motion of first MPJ, ankle joint and subtalar joint of the left foot the day . DERMATOLOGICAL CONDITION: The patient has a large necrotic decubitus ulceration of the plantar post erior left heel. The area is approximately 8 cm x 7 cm and the depth is down to level of small amou nt of exposed bone. There is necrotic tissue. There is no odor. There is periwound erythema noted . There is no pus or drainage. There are no sinus tracts noted. The patient also has hyperkeratos is surrounding the ulceration as well. The wound is necrotic in nature. There is a small amount of granular tissue of the posterior aspect of the left heel. NEUROLOGICAL SENSATION: The patient has decreased sensation with [place] monofilament. Th e patient has evidence of peripheral neuropathy. ASSESSMENT: 1. Diabetes mellitus. 2. Cellulitis. 3. Decubitus ulceration of the left heel. 4. The patient has MRI-positive findings of osteomyelitis of the plantar posterior calcaneus. PLAN: 1. History and physical examination on the podiatric level. 2. Sharp excisional debridement was performed at bedside of the black eschar of the decubitus ulcer ation until bleeding viable tissue. The patient had previous vascular examination that showed enoug h flow to the area without stenosis. The continued plan for the patient is continued wound care on an outpatient basis. The patient is being monitored by Dr. Madhu Shen from infectious disease with or al antibiotic management for osteomyelitis group home. The patient was referred to me by Jn fowler MD. After debridement, the patient is expected to be discharged from the hospital to home with home health care evaluation and continued wound care management. I will continue to follow the nader ent if available on a home basis. The patient will need long-term wound care as well as long-term a ntibiotics to heal this wound. Offloading of the area is very essential with a heel protector as we ll as pillows underneath the leg in order to off-weight the heel. Dictated By: CHANELLE MAYORGA Conf#: [id number] DID#: [id number]
--- NOTE | 2016-11-06 14:59 | DS ---
DATE OF ADMISSION: 10/30/2016 DATE OF DISCHARGE: 11/06/2016 PROCEDURES PERFORMED: 1. On 11/05/2016, debridement of the heel. 2. MRI of the ankle, left demonstrated evidence of osteomyelitis at the posterior calcaneal margin of this region. 3. Arterial study of the lower extremity was negative for stenosis or occlusion. 4. Brain CT demonstrated atrophy. CONSULTANTS: Dr. Shen for ID, Dr. Tierney for podiatry. HOSPITAL COURSE: The patient came in for lethargy. It was determined that lethargy was secondary t o her usage of Xanax and her regular pain medications. The patient did improve after the first day. While she was, she has been getting workup for lower extremity cellulitis and it was determined th at she had osteomyelitis and subsequently stayed for this reason. The patient was started on antibi otics. Cultures came back that were sensitive to her current regimen now, which is doxycycline and Cipro. She had debridement of the heel by the administrative assistant. The patient is now ready to be discharge d. Current plan is home health to continue with the treatment of the heel and podiatry to evaluate the patient intermittently at home. Continue the antibiotics and follow up with Dr. Shen at the end of 1 month of antibiotics, which would be completed on 12/10/2016. High blood pressure was elevated in the hospital and the amlodipine was added. This will continue w ith her losartan. Chronic pain, she did not need as much medications while in the hospital. Diabetes was controlled. She is to continue her regular medications that she takes at home, which w as under good control then. NEW MEDICATIONS: At the time of discharge, her new medications are: 1. Doxycycline 100 mg b.i.d. until 12/10/2016. 2. Cipro 500 mg b.i.d. until 12/10/2016. 3. Amlodipine 5 mg daily. 4. The patient is continue what she was normally taking. Dictated By: RIDGE ABDALLA/CLIVE Conf#: [id number] DID#: [id number]
== END 2016-11-06 18:20 | disposition home or self-care (01) | DRG 593 ==
LOC: E/R 22:25 → MS4 10-28 02:32 → OBSVTOIN 10-30 14:20
PROVIDERS: ADMIT Internal Medicine; ATTEND Internal Medicine
DX: L89.620 Pressure ulcer of left heel, unstageable (principal); L03.116 Cellulitis of left lower limb; L89.152 Pressure ulcer of sacral region, stage 2; L89.322 Pressure ulcer of left buttock, stage 2; L89.312 Pressure ulcer of right buttock, stage 2; F19.951 Other psychoactive substance use, unspecified with psychoactive substance-induced psychotic disorder with hallucinations; M86.8X7 Other osteomyelitis, ankle and foot; I70.244 Atherosclerosis of native arteries of left leg with ulceration of heel and midfoot; Z89.511 Acquired absence of right leg below knee; Z79.4 Long term (current) use of insulin; F39 Unspecified mood [affective] disorder; R53.83 Other fatigue; Z79.891 Long term (current) use of opiate analgesic; B95.2 Enterococcus as the cause of diseases classified elsewhere; B96.1 Klebsiella pneumoniae [K. pneumoniae] as the cause of diseases classified elsewhere
CPT/HCPCS: 36415; 70450; 71010; 73721; 80048; 80053; 80202; 82565; 82962; 83036; 83880; 84484; 84520; 85025; 85610; 85651; 85730; 86140; 87040; 87070; 87081; 92610; 93005; 93922; 96374; 96376; G0378; J1650; J1815; J2060; J2185; J2270; J3370; J7050

== ENCOUNTER 2016-11-11 22:53 | Inpatient (IN) | payer MEDICARE, OTHER ==
[~2016-11-11] VITALS: Ht 157.5 cm; Wt 63.6 kg
[~2016-11-11 22:53] MED LIST changes: -BACITUD TOP; -DAPA5TAB PO; -DOXY100T20 PO; -INSU100V27 SQ; +MULT-853 PO; +NOVO7030 SC
--- NOTE | 2016-11-11 23:27 | ERA ---
ER Documentation Chief Complaint Date/Time DATE: 11/11/16 TIME: 23:27 Chief Complaint ALOC X 2 DAYS HPI The patient is a 81-year-old female, presenting to the ER because of altered level of consciousness for the last 2 days, decreased appetite, less responsive. She was discharged a week ago and was admitted for left ankle osteomyelitis. She has not been taking her antibiotic for the last 2 days due to altered level of consciousness. She is unable to provide any history, the history is obtained from the daughters who were at the bedside. Past medical history: Hypertension, left ankle osteomyelitis, dyslipidemia, diabetes mellitus, mood disorder, peripheral neuropathy Past surgical history: Right below knee amputation Social history/review of system: Unable to obtain due to her condition ROS All systems reviewed and are negative except as per history of present illness. Medications Home Meds Reported Medications Multivits-Min/Iron/FA/Lutein (Centrum Silver Women Tablet) 1 Each Tablet, 1 EACH PO, TAB 10/28/16 Insulin Isophan/Regular (Humulin 70/30) 100 Units/Ml Susp, 0 SC SLIDING SCALE, EA - 40u QAM & 60u QPM 10/28/16 Methadone Hcl* (Methadone*) 10 Mg Tab, 15 MG PO BID, TAB 07/14/16 Montelukast Sodium* (Montelukast Sodium*) 10 Mg Tablet, 10 MG PO QHS, #30 TAB 07/14/16 Losartan Potassium* (Losartan Potassium*) 100 Mg Tablet, 100 MG PO BID, TAB 07/14/16 Aspirin* (Aspirin* EC) 81 Mg Tablet.dr, 81 MG PO DAILY, TAB 07/14/16 Discontinued Reported Medications Multivits-Min/Iron/FA/Lutein (Centrum Silver Women Tablet) 1 Each Tablet, 1 EACH PO, TAB 11/11/16 Allergies Allergies: Coded Allergies: Benzodiazepines (Unverified Allergy, Severe, hallucinations, 11/11/16) Penicillins (Unverified Allergy, Mild, RASH, 11/11/16) PMhx/Soc History of Surgery: Yes Anesthesia Reaction: No Hx Neurological Disorder: No Hx Respiratory Disorders: No Hx Cardiac Disorders: No Hx Psychiatric Problems: No Hx Miscellaneous Medical Probl: No Hx Alcohol Use: No Hx Substance Use: No Hx Tobacco Use: No Physical Exam Vitals Vital Signs Date Time Temp Pulse Resp B/P Pulse Ox O2 Delivery O2 Flow Rate FiO2 11/12/16 04:29 85 16 126/61 94 Mechanical Ventilator 11/12/16 03:36 97.9 87 16 114/47 94 Mechanical Ventilator 11/12/16 03:00 84 20 95 50 11/12/16 02:59 85 16 107/55 97 Mechanical Ventilator 11/12/16 02:53 84 16 157/76 98 Mechanical Ventilator 11/12/16 02:35 106 16 120/56 98 Mechanical Ventilator 11/12/16 01:20 108 16 122/58 98 Mechanical Ventilator 11/12/16 01:05 83 20 100 50 11/12/16 00:59 94 16 135/92 98 Mechanical Ventilator 11/12/16 00:35 92 16 101/62 99 Mechanical Ventilator 11/12/16 00:23 103.7 94 14 46/25 100 Mechanical Ventilator 11/11/16 23:50 90 20 100 100 11/11/16 22:56 100.4 110 16 135/62 88 Physical Exam Const: Acute severe respiratory distress Head: Atraumatic. Eyes: Normal Conjunctiva. ENT: Normal External Ears, Nose and Mouth. Neck: Full range of motion. No meningismus. Resp: Clear to auscultation bilaterally. Cardio: Regular but tachycardic Abd: Soft, non distended, normal bowel sounds, non tender. Skin: No petechiae or rashes. Back: No midline or flank tenderness. Ext: No cyanosis, or edema. Neur: Unable to perform due to her condition Psych: Unable to perform due to her condition Result Diagram: 11/11/16 2345 11/11/16 2345 Results 24 hrs Laboratory Tests Test 11/11/16 00:00 11/11/16 23:45 11/12/16 00:08 11/12/16 00:30 Urine Color YELLOW Urine Clarity TURBID Urine pH 6.0 Urine Specific [place] 1.011 Urine Ketones NEGATIVEmg/dL Urine Nitrite NEGATIVEmg/dL Urine Bilirubin NEGATIVEmg/dL Urine Urobilinogen NEGATIVEmg/dL Urine Leukocyte Esterase 3+Justin/ul Urine Microscopic RBC > 182/HPF Urine Microscopic WBC > 182/HPF Urine Mucus MANY/HPF Urine Yeast (Budding) MANY/HPF Urine Hemoglobin 2+mg/dL Urine Glucose 3+mg/dL Urine Total Protein 2+mg/dl White Blood Count 23.810^3/ul Red Blood Count 5.0910^6/ul Hemoglobin 14.9g/dl Hematocrit 46.7% Mean Corpuscular Volume 91.7fl Mean Corpuscular Hemoglobin 29.3pg Mean Corpuscular Hemoglobin Concent 31.9g/dl Red Cell Distribution Width 15.3% Platelet Count 47125^3/UL Mean Platelet Volume 9.8fl Neutrophils % 69.9% Lymphocytes % 19.0% Monocytes % 9.9% Eosinophils % 0.0% Basophils % 0.5% Nucleated Red Blood Cells % 0.0/100WBC Neutrophils # 16.710^3/ul Lymphocytes # 4.510^3/ul Monocytes # 2.410^3/ul Eosinophils # 0.010^3/ul Basophils # 0.110^3/ul Nucleated Red Blood Cells # 0.010^3/ul Prothrombin Time 17.0Sec Prothrombin Time Ratio 1.3 INR International Normalized Ratio 1.38 Activated Partial Thromboplast Time 23.4Sec Sodium Level 164mmol/L Potassium Level 3.8mmol/L Chloride Level 117mmol/L Carbon Dioxide Level 23mmol/L Anion Gap 28 Blood Urea Nitrogen 77mg/dl Creatinine 3.55mg/dl Glucose Level 277mg/dl Bedside Glucose 261mg/dL Lactic Acid Level 4.1mmol/L Calcium Level 10.8mg/dl Total Bilirubin 0.4mg/dl Direct Bilirubin 0.00mg/dl Indirect Bilirubin 0.4mg/dl Aspartate Amino Transf (AST/SGOT) 39IU/L Alanine Aminotransferase (ALT/SGPT) 21IU/L Alkaline Phosphatase 68IU/L Troponin I 0.129ng/ml Total Protein 8.2g/dl Albumin 4.1g/dl Globulin 4.10g/dl Albumin/Globulin Ratio 1.00 Bedside Urine pH (LAB) 6.0 Bedside Urine Protein (LAB) 2+ Bedside Urine Glucose (UA) 0.50% Bedside Urine Ketones (LAB) Negative Bedside Urine Blood 2+ Bedside Urine Nitrite (LAB) Negative Bedside Urine Leukocyte Esterase (L 3+ Blood Gas Specimen Source Blood arterial Arterial Blood Date Drawn 11/12/2016 12:54:43 AM Arterial Blood pH (Temp corrected) 7.430 Arterial Blood pCO2 (Temp correct) 25.3mmhg Arterial Blood pO2 (Temp corrected) 240.4mmHG Arterial Blood HCO3 16.4mmol/L Arterial Blood Base Excess -5.9mmol/L Arterial Blood Oxygen Saturation 99.1mmHG Herminio Test N/A Arterial Blood Gas Puncture Site Right Brachial Arterial Blood Carboxyhemoglobin 0.3% Arterial Blood Methemoglobin 0.4% Blood Gas A-a O2 Differential 447.3mmHg Oxyhemoglobin Percent 98.4% Total Hemoglobin 15.2g/dl Blood Gas Temperature 37.0C Blood Gas Respiration Rate 20.0 Blood Gas Actual Respiration Rate 20 Blood Gas Modality VENT - AC FiO2 100.0% Blood Gas Tidal Volume 500.0mL Blood Gas Low PEEP Setting 5.0cmH2O Blood Gas Inspiratory Pressure 38.0 Blood Gas Notified Whom MM Blood Gas Notified Time 11/12/2016 12:58:23 AM Test 11/12/16 02:50 Lactic Acid Level 3.1mmol/L Current Medications Medications (Trade) Dose Ordered Sig/Grecia Route PRN Reason Start Time Stop Time Status Last Admin Dose Admin Sodium Chloride 1,970 ml @ 1,970 mls/hr BOLUS X1 ONCE IV 11/12/16 00:30 11/12/16 01:29 DC 11/12/16 00:32 Norepinephrine (Levophed) 250 ml @ 1.875 mls/ hr TITRATE IV 11/12/16 00:30 11/12/16 00:33 Acetaminophen 650 mg 650 mg STK-MED ONCE NC 11/12/16 00:53 11/12/16 00:54 DC Vancomycin HCl 250 ml @ 125 mls/hr ONCE IVPB 11/12/16 01:00 11/12/16 02:59 DC 11/12/16 02:34 Meropenem (Merrem 500 Mg/ 100 ml (Pmx)) 100 ml @ 200 mls/hr NOW STAT IVPB 11/12/16 00:59 11/12/16 01:28 DC 11/12/16 01:29 Procedures/[place] [id number] Radiology Main Line: [phone] DIAGNOSTIC IMAGING REPORT Patient: YOHAN MATTA : 1935 Age: 81 Sex: F MR #: [id number] DOS: 11/11/16 2339 Ordering MD: CHANELLE RITTER MD Location: E/R Room/Bed: PROCEDURE: XR Chest. CLINICAL INDICATION: Possible sepsis. TECHNIQUE: Portable AP supine view of the chest was obtained. COMPARISON: 07/23/2013 FINDINGS: The cardiomediastinal silhouette is within normal limits. Distal tip of an endotracheal tube projects 4.4 cm above the verónica in satisfactory position. The lungs appear clear. There is no evidence for pleural effusion, pneumothorax or pulmonary vascular congestion. Demineralization and incidental osteoarthrosis of the glenohumeral joints is noted. Atherosclerotic calcifications present within the aorta. RPTAT:HJJR IMPRESSION: Distal tip of the endotracheal tube in good position approximately 4.4 cm above the verónica without evidence of acute intrathoracic pathology. Physician Dago Date Time Electronically viewed and signed by Jace Rivero Physician on 11/12/2016 00:47 JR/ CC: CHANELLE RITTER MD [place] [address] Radiology Main Line: [phone] DIAGNOSTIC IMAGING REPORT Patient: YOHAN MATTA : 1935 Age: 81 Sex: F MR #: [id number] DOS: 11/11/16 2339 Ordering MD: CHANELLE RITTER MD Location: E/R Room/Bed: PROCEDURE: CT head, without contrast. CLINICAL INDICATION: Possible Sepsis TECHNIQUE: Noncontrast CT examination of the head, with axial, sagittal and coronal reformatted images. Automated dose exposure control was employed. CTDI: 40.05 and DLP: 720.23. COMPARISON: 10/27/2016. FINDINGS: Chronic changes of atrophy and small vessel disease of white matter No acute hemorrhage. Subarachnoid spaces are substantially preserved and symmetric. Ventricles are unremarkable. No mass effect. Olsen-white matter distinction is preserved without evident decreased attenuation to suggest acute or recent infarct. Sinuses and osseous structures are unremarkable. IMPRESSION: Chronic changes of atrophy and small vessel disease white matter, and otherwise , no acute process in the head. RPTAT: UU Physician Neto Date Time Electronically viewed and signed by Physician Neto on 11/12/2016 02:36 RS/ CC: CHANELLE RITTER MD [place] [address] Radiology Main Line: [phone] DIAGNOSTIC IMAGING REPORT Patient: YOHAN MATTA : 1935 Age: 81 Sex: F MR #: [id number] DOS: 11/11/16 2339 Ordering MD: CHANELLE RITTER MD Location: E/R Room/Bed: PROCEDURE: CT of the abdomen and pelvis without contrast CLINICAL INDICATION: Sepsis. TECHNIQUE: Spiral CT images through the abdomen and pelvis without the use of contrast. The administered radiation dose is CTDI 16.64 and DLP 1021.28. One or more of the following dose reduction techniques were used: automated exposure control, adjustment of the mA and/or kV according to patient size, or use of iterative reconstruction technique. COMPARISON: None FINDINGS: Lack of oral and intravenous contrast somewhat limits evaluation. Fluid and debris is seen within the bronchus intermedius and right middle and lower lobe bronchi with heterogeneous alveolar infiltrate of the right lower lobe. The pattern is suspicious for aspiration pneumonia. The heart size appears within normal limits. Aortic and coronary artery calcification is seen. Nasogastric tube courses into the stomach.. Small calcified hepatic granuloma is seen. 6 mm nonobstructing stone is seen in the upper pole of the right kidney. The spleen, adrenals, and left kidney are unremarkable in appearance. Diffuse atrophy of the pancreas is seen. The gallbladder is not seen and may be surgically absent. The common bile duct is dilated, measuring 10 mm in diameter.. . There is no evidence for bowel obstruction, free air, or abscess. The appendix is normal in appearance. . Injection granulomas of the gluteal regions. Skin thickening of the anterior abdominal wall may be related to prior subcutaneous injections. The urinary bladder is decompressed with a Sullivan catheter. There may be mild wall thickening of the urinary bladder. There is skin thickening and soft tissue stranding of the gluteal regions, right greater than left. Calcified periuterine vessels. Unremarkable adnexa. There is no evidence for diverticulitis. No adenopathy or ascites is seen. There is mild degenerative change of the spine. IMPRESSION: Fluid and debris within the right middle and lower lobe bronchi with heterogeneous right lower lobe infiltrate. Probable aspiration pneumonia. Dilated common bile duct. Nonvisualization of the gallbladder. MRCP could be considered if choledocholithiasis is suspected clinically. Sullivan catheter within the urinary bladder with probable wall thickening of the urinary bladder suggesting cystitis. Correlate clinically. RPTAT: HLBE Physician Chris Date Time Electronically viewed and signed by Linda Ramirez Physician on 11/12/2016 02 :50 LE/ CC: CHANELLE RITTER MD [place] [address] Radiology Main Line: [phone] DIAGNOSTIC IMAGING REPORT Patient: YOHAN MATTA : 1935 Age: 81 Sex: F MR #: [id number] DOS: 11/12/16 0000 Ordering MD: CHANELLE RITTER MD Location: E/R Room/Bed: PROCEDURE: XR Chest. CLINICAL INDICATION: Central venous line placement. TECHNIQUE: Single frontal view of the chest. COMPARISON: 07/23/2013. FINDINGS: Endotracheal intubation is seen with tip about 56 mm above the verónica. Right central venous line is seen with tip in the superior vena cava. The cardiomediastinal silhouette is within normal limits. Mild right lung base atelectasis versus airspace disease. Decreased lung inflation over the interval. The lungs are otherwise clear. No signs of pleural fluid or pneumothorax are seen. The osseous structures and soft tissues are unremarkable. IMPRESSION: Right central venous line is seen with tip in the superior vena cava. RPTAT: UU Physician eNto Date Time Electronically viewed and signed by Physician Neto on 11/12/2016 01:16 RS/ CC: CHANELLE RITTER MD EKG: Read by emergency physician Rate/Rhythm: Normal Sinus Rhythm 84 beats/min QRS, ST, T-waves: No ST elevation, no T inversion, inferior and anteroseptal Q waves Impression: Abnormal EKG MEDICAL MAKING DECISION: The patient is a 81-year-old female, presenting with acute respiratory failure, acute septic shock, acute kidney injury, acute hyponatremia, acute pneumonia, acute cystitis, acute dehydration, acute troponin elevation, acute dilated common bile duct. Upon arrival to the ER, Accu-Chek was 255. She was intubated immediately due to severe acute respiratory distress. The differential diagnoses considered include but are not limited to pneumonia, pyelonephritis, cystitis, choledocholithiasis, cholangitis, cholecystitis, non- STEMI Endotracheal Intubation by me: Pre assessment performed. See preceding note for details. Pre-oxygenation performed with 100% oxygen RSI: Performed w/o complication or hypoxic events. Medications as ordered. Blade: [place] Scope 4 ET Tube: 7.5 XOXOXO cm Depth: 21 cm at the lip Intubation confirmed by colorimetric CO2, equal breath sounds, quiet over the stomach. Central Line Placement by me: Patient consented, sterilely draped, full prep, gown, glove, mask, time out performed. Anesthesia: 1% lidocaine locally Location: Right internal jugular Device: Multiple lumen Technique: Seldinger technique. Secured with suture. Results: Venous return from all ports with easy saline flush. No complications. Guide wire retrieved and disposed of. [ED Ultrasound: Central line placed by me using concurrent ultrasound guidance. Real time image archived in the medical record confirms vascular anatomy. Admit MDM: Patient's infectious symptoms have not stabilized and the patient is at risk of rapid decompensation. The patient will be admitted for careful hydration, antibiotic therapy, and infectious source control. Severe Sepsis criteria: Infectious source: Pneumonia, cystitis End organ damage indicated by: Lactate > 2.0 mmol/L Hypotension (SBP < 90 or >40 mmHG drop or MAP < 65) Acute Resp Failure (sat < 92% w/o oxygen) Sepsis Management: Time of recognition of severe sepsis/septic shock: 23:55 hr Within 3 hours of recognition: Blood cultures x 2 before broad-spectrum antibiotics: Yes 30 ml/kg NS bolus completed Initial lactate 4.1 Repeat lactate pending Critical Care: Critical care time 75 minutes Emergent fluid management while maintaining close respiratory support. Provision of immediate and broad-spectrum antibiotic therapy. Simultaneous assessment for possible sources in order to direct targeted therapy. Consideration for invasive and chemical support to prevent cardiopulmonary collapse. Septic Shock Assessment: Any lactic acid > 4.0 yes Persistent hypotension (SBP < 90 or 40 mmHg drop, MAP < 65) despite 30 mL/kg IV fluid bolusyes Volume Re-assessment for Septic Shock (post 30 ml/kg bolus): Temp97.6, BP114/69, HR87*, RR16, Pox94% Heart regular rate & rhythm Lungs no crackles Skin Warm & dry & pink Cap Refill less than 2 seconds Peripheral pulses radially present Persistent Hypotension Treatment: Comfort care no Central line R IJ Vasopressor started Norepinehrine I considered further perfusion assessment with CVP measurement, SCVO2, bedside ultrasound volume assessment, passive leg raise, trial of further fluid bolus. And proceeded with IVF, Levophed Consultation: I discussed the patient with the mine safety manager per the admitting physician Dr. Saab's request. He was made aware of the lab, the treatment, the patient condition. He accepted the consult at 3:45 am Departure Diagnosis: Primary Impression: Acute respiratory failure Additional Impressions: Septic shock Pneumonia UTI (urinary tract infection) Acute kidney injury Elevated troponin Hypernatremia Dehydration Dilated cbd, acquired Coagulopathy Condition: Critical Comments I discussed the findings with the patient. I discussed the patient with her physician Dr. Saab who was made aware of the lab, the treatment, the patient condition. The patient is admitted to ICU at 3:35 am CHANELLE RITTER MD Nov 11, 2016 23:27
[2016-11-11] MEDS ORDERED: MULT-853 PO (23:43)
[2016-11-12] VITALS (37 sets, daily range): BP systolic 99–149; BP diastolic 51–69; PULSE 82–93; RESP 14–23; TEMP 99.1; Ht 157.5 cm; Wt 63.6 kg
[2016-11-12 00:03] LABS: ADD SCAN DIFF NO
[2016-11-12 00:06] LABS: URINE BLOOD (Dip) POC 2+ (NEGATIVE)
[2016-11-12 00:07] LABS: ABNORMAL IP MESSAGE 1; BASOPHIL # 0.1 10^3/ul (0.0-0.1); BASOPHILS % 0.5 % (0.0-2.0); HEMATOCRIT 46.7 % (37.0-47.0); HEMOGLOBIN 14.9 g/dl (12.0-16.0); LYMPHOCYTES # 4.5 10^3/ul (0.8-2.9); MEAN CORPUSCULAR HEMOGLOBIN 29.3 pg (29.0-33.0); MEAN CORPUSCULAR HGB CONC 31.9 g/dl (32.0-37.0); MEAN CORPUSCULAR VOLUME 91.7 fl (82.0-101.0); MEAN PLATELET VOLUME 9.8 fl (7.4-10.4); MONOCYTE # 2.4 10^3/ul (0.3-0.9); MONOCYTES % 9.9 % (0.0-11.0); NEUTROPHIL # 16.7 10^3/ul (1.6-7.5); NEUTROPHILS % 69.9 % (39.0-77.0); PLATELET COUNT 260 10^3/UL (140-415); RED BLOOD COUNT 5.09 10^6/ul (4.20-5.40); RED CELL DISTRIBUTION WIDTH 15.3 % (11.5-14.5); WHITE BLOOD COUNT 23.8 10^3/ul (4.8-10.8)
[2016-11-12 00:23] LABS: INR 1.38; PARTIAL THROMBOPLASTIN TIME 23.4 Sec (25.0-35.0); PT RATIO 1.3
[2016-11-12] MEDS ORDERED: SOD CHLORIDE 0.9% 1,970 ML IV ONE (00:30)
[2016-11-12] MEDS ORDERED: NORepinephrine 8MG/250 ML (PMX 250 ML IV SCH ×2 (00:30→09:00)
[2016-11-12 00:41] LABS: ALBUMIN 4.1 g/dl (3.3-4.9); BILIRUBIN,INDIRECT 0.4 mg/dl (0-1.1); BILIRUBIN,TOTAL 0.4 mg/dl (0.2-1.3); CALCIUM 10.8 mg/dl (8.4-10.2); CREATININE 3.55 mg/dl (0.44-1.00); POTASSIUM 3.8 mmol/L (3.5-5.1); TOTAL PROTEIN 8.2 g/dl (6.1-8.1)
--- NOTE | 2016-11-12 00:48 | RADRPT ---
PROCEDURE: XR Chest. CLINICAL INDICATION: Possible sepsis. TECHNIQUE: Portable AP supine view of the chest was obtained. COMPARISON: 07/23/2013 FINDINGS: The cardiomediastinal silhouette is within normal limits. Distal tip of an endotracheal tube projec ts 4.4 cm above the verónica in satisfactory position. The lungs appear clear. There is no evidence for pleural effusion, pneumothorax or pulmonary vascular congestion. Demineralization and incidenta l osteoarthrosis of the glenohumeral joints is noted. Atherosclerotic calcifications present within the aorta. RPTAT:HJJR IMPRESSION: Distal tip of the endotracheal tube in good position approximately 4.4 cm above the verónica without e vidence of acute intrathoracic pathology. Physician Dago Date Time Electronically viewed and signed by Jace Rivero Physician on 11/12/2016 00:47 JR/
[2016-11-12] MEDS ORDERED: ACETAMINOPHEN 650 MG SUPP PR ONE (00:53)
[2016-11-12 00:58] LABS: AADO2 Arterial 447.3 mmHg (7.0-24.0); Arterial Base Excess -5.9 mmol/L (-3.0-3); Arterial COHb 0.3 % (0.0-3.0); Arterial Fraction of Oxyhgb 98.4 % (93.0-99.0); Arterial HCO3 16.4 mmol/L (22.0-26.0); Arterial MetHb 0.4 % (0.0-1.5); Arterial Total Hemglobin 15.2 g/dl (12.0-18.0); MODE VENT - AC
[2016-11-12] MEDS ORDERED: MEROPENEM 500 MG/100 ML (PMX) 100 ML IVPB STA (00:59)
[2016-11-12] MEDS ORDERED: VANCOMYCIN 1 GM (PMX) 250 ML IVPB SCH (01:00)
--- NOTE | 2016-11-12 01:17 | RADRPT ---
PROCEDURE: XR Chest. CLINICAL INDICATION: Central venous line placement. TECHNIQUE: Single frontal view of the chest. COMPARISON: 07/23/2013. FINDINGS: Endotracheal intubation is seen with tip about 56 mm above the verónica. Right central venous line is seen with tip in the superior vena cava. The cardiomediastinal silhouette is within normal limits. Mild right lung base atelectasis versus ai rspace disease. Decreased lung inflation over the interval. The lungs are otherwise clear. No sign s of pleural fluid or pneumothorax are seen. The osseous structures and soft tissues are unremarkabl e. IMPRESSION: Right central venous line is seen with tip in the superior vena cava. RPTAT: UU Physician Neto Date Time Electronically viewed and signed by Physician Neto on 11/12/2016 01:16 RS/
[2016-11-12 01:26] LABS: TROPONIN-I 0.129 ng/ml (0.00-0.12)
--- NOTE | 2016-11-12 02:36 | RADRPT ---
PROCEDURE: CT head, without contrast. CLINICAL INDICATION: Possible Sepsis TECHNIQUE: Noncontrast CT examination of the head, with axial, sagittal and coronal reformatted im ages. Automated dose exposure control was employed. CTDI: 40.05 and DLP: 720.23. COMPARISON: 10/27/2016. FINDINGS: Chronic changes of atrophy and small vessel disease of white matter No acute hemorrhage. Subarachnoid spaces are substantially preserved and symmetric. Ventricles ar e unremarkable. No mass effect. Olsen-white matter distinction is preserved without evident decreased attenuation t o suggest acute or recent infarct. Sinuses and osseous structures are unremarkable. IMPRESSION: Chronic changes of atrophy and small vessel disease white matter, and otherwise, no acute process in the head. RPTAT: UU Physician Neto Date Time Electronically viewed and signed by Physician Neto on 11/12/2016 02:36 RS/
--- NOTE | 2016-11-12 02:50 | RADRPT ---
PROCEDURE: CT of the abdomen and pelvis without contrast CLINICAL INDICATION: Sepsis. TECHNIQUE: Spiral CT images through the abdomen and pelvis without the use of contrast. The admin istered radiation dose is CTDI 16.64 and DLP 1021.28. One or more of the following dose reduction t echniques were used: automated exposure control, adjustment of the mA and/or kV according to patient size, or use of iterative reconstruction technique. COMPARISON: None FINDINGS: Lack of oral and intravenous contrast somewhat limits evaluation. Fluid and debris is seen within the bronchus intermedius and right middle and lower lobe bronchi with heterogeneous alveolar infilt rate of the right lower lobe. The pattern is suspicious for aspiration pneumonia. The heart size a ppears within normal limits. Aortic and coronary artery calcification is seen. Nasogastric tube co urses into the stomach.. Small calcified hepatic granuloma is seen. 6 mm nonobstructing stone is seen in the upper pole of t he right kidney. The spleen, adrenals, and left kidney are unremarkable in appearance. Diffuse atr ophy of the pancreas is seen. The gallbladder is not seen and may be surgically absent. The common bile duct is dilated, measuring 10 mm in diameter.. . There is no evidence for bowel obstruction, free air, or abscess. The appendix is normal in appearance. . Injection granulomas of the glutea l regions. Skin thickening of the anterior abdominal wall may be related to prior subcutaneous inje ctions. The urinary bladder is decompressed with a Sullivan catheter. There may be mild wall thickeni ng of the urinary bladder. There is skin thickening and soft tissue stranding of the gluteal region s, right greater than left. Calcified periuterine vessels. Unremarkable adnexa. There is no evide nce for diverticulitis. No adenopathy or ascites is seen. There is mild degenerative change of the spine. IMPRESSION: Fluid and debris within the right middle and lower lobe bronchi with heterogeneous right lower lobe infiltrate. Probable aspiration pneumonia. Dilated common bile duct. Nonvisualization of the gallbladder. MRCP could be considered if choledo cholithiasis is suspected clinically. Sullivan catheter within the urinary bladder with probable wall thickening of the urinary bladder sugge sting cystitis. Correlate clinically. RPTAT: HLBE Linda James, Physician Date Time Electronically viewed and signed by Linda Ramirez, Physician on 11/12/2016 02:50 LE/
[2016-11-12 03:16] LABS: ADD UMIC YES; UR ASCORBIC ACID NEGATIVE (NEGATIVE); UR BILIRUBIN (Dip) NEGATIVE (NEGATIVE); UR BLOOD (Dip) 2+ mg/dL (NEGATIVE); UR BUDDING YEAST MANY /HPF (NONE SEEN); UR CLARITY TURBID (CLEAR); UR COLOR YELLOW (YELLOW); UR GLUCOSE (Dip) 3+ mg/dL (NEGATIVE); UR KETONES (Dip) NEGATIVE (NEGATIVE); UR LEUKOCYTE ESTERASE (Dip) 3+ Leu/ul (NEGATIVE); UR MUCUS MANY /HPF (NONE SEEN); UR NITRITE (Dip) NEGATIVE (NEGATIVE); UR RBC > 182 /HPF (0-5); UR SPECIFIC GRAVITY (Dip) 1.011 (1.003-1.030); UR TOTAL PROTEIN (Dip) 2+ mg/dl (NEGATIVE); UR UROBILINOGEN (Dip) NEGATIVE (NEGATIVE)
[2016-11-12] MEDS ORDERED: GLUCAGON 1 MG INJ IM PRN (08:30)
[2016-11-12] MEDS ORDERED: DEXTROSE 50% 50 ML SYRINGE IV PRN ×2 (08:30)
[2016-11-12] MEDS ORDERED: SOD CHLORIDE 0.9% 1,000 ML IV SCH (08:30)
[2016-11-12] MEDS ORDERED: VANCOMYCIN IV PER PHARMACY XX SCH (08:30)
[2016-11-12] MEDS ORDERED: GLUCOSE GEL 15 GRAM TUBE BUCCAL PRN (08:30)
[2016-11-12] MEDS ORDERED: GLUCOSE GEL 15 GRAM TUBE PO PRN ×2 (08:30)
--- NOTE | 2016-11-12 09:19 | HP ---
DATE OF ADMISSION: 11/12/2016 ADMITTING DIAGNOSES: 1. Sepsis with pneumonia and urinary tract infection. 2. Secondary altered level of consciousness. 3. Respiratory failure. HISTORY OF PRESENT ILLNESS: The patient is an 81-year-old female with diabetes, hypertension, chron ic pain, and osteomyelitis, who was recently discharged from the hospital just over a week ago. The patient presented to the emergency room for altered level of consciousness for the last few days, a decreased appetite and decreased responsiveness at home. The patient had not been taking her routi ne medications over the last few days due to her weakened state. [facility]. The patient was found to have hypoxia, respiratory failure, and was intu bated in the emergency room. The patient was also hypotensive, was placed on a Levophed drip and gi brenda IV antibiotics, including meropenem and vancomycin. The patient was stabilized in the emergency room, with blood pressure stabilized and Levophed was turned off. REVIEW OF SYSTEMS: Otherwise unremarkable. PAST MEDICAL HISTORY: Hypertension, left ankle osteomyelitis, hyperlipidemia, type 2 diabetes, mood disorder, peripheral neuropathy. PAST SURGICAL HISTORY: Left great toe amputation, right below the knee amputation. FAMILY HISTORY: Noncontributory. HOME MEDICATIONS: 1. Methadone 15 mg p.o. b.i.d. 2. Humulin insulin 70/30. 3. Multivitamin. 4. Singulair 10 mg daily. 5. Losartan 100 mg b.i.d. 6. Aspirin 81 mg daily. 7. Doxycycline 100 mg b.i.d. 8. Cipro 500 mg b.i.d. PHYSICAL EXAMINATION: VITAL SIGNS: In the emergency room initial vital signs showed a max temperature of 100.3, pulse rat e of 94, respirations 14, blood pressure was 46/25 on the vent. Initial vital signs were temperatur e of 100.4 with a pulse rate of 110, respirations 16, blood pressure 135/62, pulse oximetry of 88%. GENERAL: Well-developed, well-nourished female, in no acute distress on the ventilator, lying in be d. SKIN: Desquamated skin on the dorsal left hand. There is a scab formation on the distal left foot, and there is a left heel ulcer, unstageable, with mild erythema and scant drainage. NECK: No jugular venous distention. There is an IJ central line in place. CHEST: Scant rhonchi bilaterally. HEART: Regular rate and rhythm. ABDOMEN: Soft, nontender, nondistended. Normal active bowel sounds. EXTREMITIES: Right knee BKA, with good popliteal pulse, cool to the touch. Left lower extremity wi th decreased pulsation. No erythema, no edema. NEUROLOGIC: Nonfocal. LABORATORY EXAMINATION: White blood cell count 23.8 thousand, hematocrit 46.7, hemoglobin 14.9, vika telets 260. Arterial blood gas showed a pH of 7.43, pCO2 of 25, pO2 of 240, oxygen saturation 99% o n the vent. Sodium 164, potassium 3.8, chloride 117, carbon dioxide 23, BUN 77, creatinine 3.55, glu cose 277. Lactic acid initially 4.1, decreased to 2.7. Troponin initially 0.129, albumin 4.1. Uri nalysis shows 2+ protein, 2+ blood, 3+ leukocyte esterase, greater than 182 white blood cells, great er than 102 red blood cells, many yeast, moderate mucus, 3+ glucose. INR 1.38, PT of 17.0, PTT of 23.4. CT scan of the brain shows chronic changes of atrophy, small vessel disease white matter. No acute process. Abdominal pelvic CT scan shows fluid and debris within the right middle lower lobe rhonchi, with heterogeneous right lower lobe infiltrate, with probable aspiration pneumonia. Dilate d common bile duct, nonvisualization of the gallbladder. Chest x-ray shows no obvious infiltrate. Mild right lung disease base atelectasis versus airspace disease. IMPRESSION: The patient is an 81-year-old female with multiple medical problems with altered level o f consciousness, respiratory failure, acute renal failure, positive troponin, with probable aspirati on pneumonia and urosepsis. The patient is admitted to the intensive care unit for further evaluati on and treatment. 1. Respiratory failure. Will continue the patient on the ventilator and have the wire harness design engineer ass ist with pulmonary care. 2. Possible non-ST elevation myocardial infarction. The patient with a positive troponin. Will jean baptiste ve cardiology assist with the patient. Will continue the patient in the ICU and do serial troponins to evaluate for possible myocardial infarction. 3. Acute renal failure. Will give IV fluid hydration, follow a chemistry panel, and give IV half n ormal saline because of hypernatremia. 4. Urosepsis. Will give IV antibiotics, including vancomycin and meropenem, and have tabatha davis assist with care. 5. Osteomyelitis. The patient will likely need to be continued on doxycycline and ciprofloxacin, b ut will have Dr. Shen from infectious disease assist with antibiotic care. 6. Diabetes. Will keep the patient n.p.o., but use NovoLog sliding scale. Dictated By: CONNIE MARION MD SR/NTS Conf#: [id number] DID#: [id number]
[2016-11-12] MEDS: SOD CHLORIDE 0.45% 1,000 ML IV SCH ×3 (10:02→22:07)
[2016-11-12] MEDS: MEROPENEM 500 MG/100 ML (PMX) 100 ML IVPB SCH (10:02)
--- NOTE | 2016-11-12 10:24 | CONS ---
Date/Time of Note Date/Time of Note DATE: 11/12/16 TIME: 10:19 Assessment/Plan Assessment/Plan Chief Complaint/Hosp Course 1) asp pneumonia continue with vanco/merrem to cover resistant organisms 2) pyuria and possible UTI await maturation of urine cx 3) L heal osteo s/p debridement about a week ago merrem will cover the kleb that was there before repeat wound cx 4) PVD no reversible stenosis found to LLE Problems: Consultation Date/Type/Reason Admit Date/Time Nov 12, 2016 at 05:22 Date of Consultation: Nov 12, 2016 Type of Consultation: ID Hx of Present Illness pt was admitted due to lethargy, unable to take her meds and AMS she was found to have aspirated as per chest CT Social History Smoking Status: Never smoker Exam/Review of Systems Vital Signs Vitals Vital Signs Date Time Temp Pulse Resp B/P Pulse Ox O2 Delivery O2 Flow Rate FiO2 11/12/16 09:30 84 20 109/60 100 11/12/16 09:00 Mechanical Ventilator 11/12/16 08:15 98.9 11/12/16 07:30 10.0 11/12/16 07:10 50 Exam intubated and sedated Eyes: other (R eye is cloudy) Respiratory: clear to auscultation Cardiovascular: regular rate and rhythm Gastrointestinal: non-tender, soft Extremities: other (L heal eschar with ulcer present, no surrounding redness) Results Result Diagram: 11/11/16 2345 11/11/16 2345 Results 24 hrs Laboratory Tests Test 11/11/16 23:45 11/12/16 00:08 11/12/16 00:30 11/12/16 02:50 White Blood Count 23.8 #H Red Blood Count 5.09 Hemoglobin 14.9 Hematocrit 46.7 Mean Corpuscular Volume 91.7 Mean Corpuscular Hemoglobin 29.3 Mean Corpuscular Hemoglobin Concent 31.9 L Red Cell Distribution Width 15.3 H Platelet Count 260 Mean Platelet Volume 9.8 Neutrophils % 69.9 Lymphocytes % 19.0 Monocytes % 9.9 Eosinophils % 0.0 Basophils % 0.5 Nucleated Red Blood Cells % 0.0 Neutrophils # 16.7 H Lymphocytes # 4.5 H Monocytes # 2.4 H Eosinophils # 0.0 Basophils # 0.1 Nucleated Red Blood Cells # 0.0 Prothrombin Time 17.0 H Prothrombin Time Ratio 1.3 INR International Normalized Ratio 1.38 Activated Partial Thromboplast Time 23.4 L Sodium Level 164 *H Potassium Level 3.8 Chloride Level 117 H Carbon Dioxide Level 23 Anion Gap 28 H Blood Urea Nitrogen 77 H Creatinine 3.55 H Glucose Level 277 H Bedside Glucose 261 H Lactic Acid Level 4.1 *H 3.1 H Calcium Level 10.8 H Total Bilirubin 0.4 Direct Bilirubin 0.00 Indirect Bilirubin 0.4 Aspartate Amino Transf (AST/SGOT) 39 Alanine Aminotransferase (ALT/SGPT) 21 Alkaline Phosphatase 68 Troponin I 0.129 *H Total Protein 8.2 H Albumin 4.1 Globulin 4.10 H Albumin/Globulin Ratio 1.00 Bedside Urine pH (LAB) 6.0 Bedside Urine Protein (LAB) 2+ H Bedside Urine Glucose (UA) 0.50% H Bedside Urine Ketones (LAB) Negative Bedside Urine Blood 2+ H Bedside Urine Nitrite (LAB) Negative Bedside Urine Leukocyte Esterase (L 3+ H Blood Gas Specimen Source Blood arterial Arterial Blood Date Drawn 11/12/2016 12:54:43 AM Arterial Blood pH (Temp corrected) 7.430 Arterial Blood pCO2 (Temp correct) 25.3 L Arterial Blood pO2 (Temp corrected) 240.4 H Arterial Blood HCO3 16.4 L Arterial Blood Base Excess -5.9 L Arterial Blood Oxygen Saturation 99.1 Herminio Test N/A Arterial Blood Gas Puncture Site Right Brachial Arterial Blood Carboxyhemoglobin 0.3 Arterial Blood Methemoglobin 0.4 Blood Gas A-a O2 Differential 447.3 H Oxyhemoglobin Percent 98.4 Total Hemoglobin 15.2 Blood Gas Temperature 37.0 Blood Gas Respiration Rate 20.0 Blood Gas Actual Respiration Rate 20 Blood Gas Modality VENT - AC FiO2 100.0 Blood Gas Tidal Volume 500.0 Blood Gas Low PEEP Setting 5.0 Blood Gas Inspiratory Pressure 38.0 Blood Gas Notified Whom MM Blood Gas Notified Time 11/12/2016 12:58:23 AM Test 11/12/16 05:15 Lactic Acid Level 2.7 H Medications Medications Current Medications Meropenem 100 ml @ 200 mls/hr DAILY IVPB Last administered on 11/12/16t 10:02 ; Admin Dose 200 MLS/HR; Start 11/12/16 at 09:30 Norepinephrine 250 ml @ 1.875 mls/ hr IV IV ; Start 11/12/16 at 09:00; Stop at 15:00 Sodium Chloride (1/2 NS) 1,000 ml @ 100 mls/hr Q10H IV Last administered on t 10:02; Admin Dose 100 MLS/HR; Start 11/12/16 at 08:30 Miscellaneous Information 1 ea NOTE XX ; Start 11/12/16 at 08:30 Glucose (Glutose) 15 gm Q15M PRN PO DECREASED GLUCOSE; Start 11/12/16 at 08:30 Glucose (Glutose) 22.5 gm Q15M PRN PO DECREASED GLUCOSE; Start 11/12/16 at 08: 30 Dextrose (D50w Syringe) 25 ml Q15M PRN IV DECREASED GLUCOSE; Start 11/12/16 at 08:30 Dextrose (D50w Syringe) 50 ml Q15M PRN IV DECREASED GLUCOSE; Start 11/12/16 at 08:30 Glucagon (Glucagen) 1 mg Q15M PRN IM DECREASED GLUCOSE; Start 11/12/16 at 08:30 Glucose 15 gm 15 gm Q15M PRN BUCCAL DECREASED GLUCOSE; Start 11/12/16 at 08:30 Norepinephrine/ Dextrose (Levophed/D5W) 500 ml @ 1.875 mls/ hr TITRATE IV ; Start 11/12/16 at 10:00 ANTHONY WOODARD MD Nov 12, 2016 10:24
--- NOTE | 2016-11-12 11:05 | CONS ---
Date/Time of Note Date/Time of Note DATE: 11/12/16 TIME: 10:57 Assessment/Plan Assessment/Plan Additional Assessment/Plan Chest x-ray was reviewed from today which is totally clear. Ventilator setting; AC of 20, tidal volume 500, PEEP of 5, 50% FiO2. Patient currently is off any pressor support. She required Levophed initially in the emergency room. Assessment recommendations; next 1. Patient admitted with severe sepsis from UTI. 2. Multiple other comorbidities including diabetes, hypertension, coronary artery disease, peripheral vascular disease, as well as sacral and left heel decubitus ulcers. Continue current supportive care. Continue current antibiotics. Sedation vacation and weaning trial from ventilator in 24 hours. I did have a very detailed discussion the patient's family at bedside and answered all their questions. Consultation Date/Type/Reason Admit Date/Time Nov 12, 2016 at 05:22 Date of Consultation: Nov 12, 2016 Type of Consultation: Pulmonary/critical care Reason for Consultation Pulmonary consultation requested for evaluation of respiratory failure. Next History presenting any; patient is a 81-year-old lady who was brought into the hospital with complains of not feeling well over the last several days. Patient was getting progressively more lethargic. Upon evaluation here in the ER the patient was diagnosed with severe UTI and sepsis and was in respiratory failure and had to be intubated and put on invasive mechanical ventilation. According to patient's granddaughter who is visiting, the patient was doing fine until several days ago when she had gradual decline in medical condition to the point where the patient became unresponsive. No history of any abdominal pain, nausea vomiting. Past medical history; 1. Patient with a history of peripheral vascular disease, status post right below-knee in position. 2. History of diabetes. 3. Hypertension. 3. Coronary artery disease, 4. History of laparotomy in the past. 5. Sacral and left heel decubitus ulcers. Medications; reviewed. Allergies; are to penicillin and benzodiazepines. Social history; patient never smoked most of alcohol or drug abuse. Examination; patient is a .. She has 9 children. Various family members of diabetes hypertension. Occupation she; patient used to work in the [employer]. Review systems; unable to be obtained. General exam; elderly woman, on ventilator via endotracheal tube, sedated. Currently in no distress. Social History Smoking Status: Never smoker Exam/Review of Systems Vital Signs Vitals Vital Signs Date Time Temp Pulse Resp B/P Pulse Ox O2 Delivery O2 Flow Rate FiO2 11/12/16 10:30 85 20 103/51 100 11/12/16 10:00 Mechanical Ventilator 11/12/16 08:15 98.9 11/12/16 07:30 10.0 11/12/16 07:10 50 Exam HEENT exam; supple neck, no JVD. No lymphadenopathy. Midline trachea. No thyromegaly. Patient has a right corneal opacity. Orally intubated. No neck masses. No thyromegaly. Chest exam; clear to auscultation. S1-S2 audible, no murmurs. Regular rhythm. Abdomen examination; soft, scaphoid. There is a well-healed laparotomy scar. Bowel sounds are audible. Umbilicus is inverted. No organomegaly felt. Extremity exam; there is a well-healed right below-knee in position. Multiple ecchymoses are present in all 4 extremities. Pulses are very feeble peripherally. Back exam; there is a sacral stage II to III decubitus ulcer. The ulcer involving the left heel as well. ENERGY ADVISOR exam is; patient is sedated. Results Result Diagram: 11/11/16 2345 11/11/16 2345 Results 24 hrs Laboratory Tests Test 11/11/16 23:45 11/12/16 00:08 11/12/16 00:30 11/12/16 02:50 White Blood Count 23.8 #H Red Blood Count 5.09 Hemoglobin 14.9 Hematocrit 46.7 Mean Corpuscular Volume 91.7 Mean Corpuscular Hemoglobin 29.3 Mean Corpuscular Hemoglobin Concent 31.9 L Red Cell Distribution Width 15.3 H Platelet Count 260 Mean Platelet Volume 9.8 Neutrophils % 69.9 Lymphocytes % 19.0 Monocytes % 9.9 Eosinophils % 0.0 Basophils % 0.5 Nucleated Red Blood Cells % 0.0 Neutrophils # 16.7 H Lymphocytes # 4.5 H Monocytes # 2.4 H Eosinophils # 0.0 Basophils # 0.1 Nucleated Red Blood Cells # 0.0 Prothrombin Time 17.0 H Prothrombin Time Ratio 1.3 INR International Normalized Ratio 1.38 Activated Partial Thromboplast Time 23.4 L Sodium Level 164 *H Potassium Level 3.8 Chloride Level 117 H Carbon Dioxide Level 23 Anion Gap 28 H Blood Urea Nitrogen 77 H Creatinine 3.55 H Glucose Level 277 H Bedside Glucose 261 H Lactic Acid Level 4.1 *H 3.1 H Calcium Level 10.8 H Total Bilirubin 0.4 Direct Bilirubin 0.00 Indirect Bilirubin 0.4 Aspartate Amino Transf (AST/SGOT) 39 Alanine Aminotransferase (ALT/SGPT) 21 Alkaline Phosphatase 68 Troponin I 0.129 *H Total Protein 8.2 H Albumin 4.1 Globulin 4.10 H Albumin/Globulin Ratio 1.00 Bedside Urine pH (LAB) 6.0 Bedside Urine Protein (LAB) 2+ H Bedside Urine Glucose (UA) 0.50% H Bedside Urine Ketones (LAB) Negative Bedside Urine Blood 2+ H Bedside Urine Nitrite (LAB) Negative Bedside Urine Leukocyte Esterase (L 3+ H Blood Gas Specimen Source Blood arterial Arterial Blood Date Drawn 11/12/2016 12:54:43 AM Arterial Blood pH (Temp corrected) 7.430 Arterial Blood pCO2 (Temp correct) 25.3 L Arterial Blood pO2 (Temp corrected) 240.4 H Arterial Blood HCO3 16.4 L Arterial Blood Base Excess -5.9 L Arterial Blood Oxygen Saturation 99.1 Herminio Test N/A Arterial Blood Gas Puncture Site Right Brachial Arterial Blood Carboxyhemoglobin 0.3 Arterial Blood Methemoglobin 0.4 Blood Gas A-a O2 Differential 447.3 H Oxyhemoglobin Percent 98.4 Total Hemoglobin 15.2 Blood Gas Temperature 37.0 Blood Gas Respiration Rate 20.0 Blood Gas Actual Respiration Rate 20 Blood Gas Modality VENT - AC FiO2 100.0 Blood Gas Tidal Volume 500.0 Blood Gas Low PEEP Setting 5.0 Blood Gas Inspiratory Pressure 38.0 Blood Gas Notified Whom MM Blood Gas Notified Time 11/12/2016 12:58:23 AM Test 11/12/16 05:15 11/12/16 09:30 Lactic Acid Level 2.7 H Troponin I 0.151 *H Medications Medications Current Medications Meropenem 100 ml @ 200 mls/hr DAILY IVPB Last administered on 11/12/16 10:02 ; Admin Dose 200 MLS/HR; Start 11/12/16 at 09:30 Norepinephrine 250 ml @ 1.875 mls/ hr IV IV ; Start 11/12/16 at 09:00; Stop at 15:00 Sodium Chloride (1/2 NS) 1,000 ml @ 100 mls/hr Q10H IV Last administered on 6/ 22/17at 10:02; Admin Dose 100 MLS/HR; Start 11/12/16 at 08:30 Miscellaneous Information 1 ea NOTE XX ; Start 11/12/16 at 08:30 Glucose (Glutose) 15 gm Q15M PRN PO DECREASED GLUCOSE; Start 11/12/16 at 08:30 Glucose (Glutose) 22.5 gm Q15M PRN PO DECREASED GLUCOSE; Start 11/12/16 at 08: 30 Dextrose (D50w Syringe) 25 ml Q15M PRN IV DECREASED GLUCOSE; Start 11/12/16 at 08:30 Dextrose (D50w Syringe) 50 ml Q15M PRN IV DECREASED GLUCOSE; Start 11/12/16 at 08:30 Glucagon (Glucagen) 1 mg Q15M PRN IM DECREASED GLUCOSE; Start 11/12/16 at 08:30 Glucose 15 gm 15 gm Q15M PRN BUCCAL DECREASED GLUCOSE; Start 11/12/16 at 08:30 Norepinephrine/ Dextrose (Levophed/D5W) 500 ml @ 1.875 mls/ hr TITRATE IV ; Start 11/12/16 at 10:00 MILO CHARLES Nov 12, 2016 11:05
[2016-11-12] MEDS: INSULIN ASPART [NOVOLOG] 3 ML PEN SC SCH ×3 (12:43→20:53)
--- NOTE | 2016-11-12 15:43 | CONS ---
Date/Time of Note Date/Time of Note DATE: 11/12/16 TIME: 15:38 Assessment/Plan Assessment/Plan Additional Assessment/Plan Acute respiratory failure Urosepsis Acute kidney injury Elevated troponin Hypernatremia Dehydration PVD Hx of HTN RIght BKA hx of CAD - old ASMI Coagulopathy -continue antibiotics -pulm/ID involved -+trops possibly due to sepsis/MAYI vs small NSTEMI -no cardiac meds for now necessary -monitor on tele -plan for a 2decho -senior living - asa/statin/coreg > no acei due to mayi Consultation Date/Type/Reason Admit Date/Time Nov 12, 2016 at 05:22 Hx of Present Illness The patient is a 81-year-old female, presenting to the ER because of altered level of consciousness for the last 2 days, decreased appetite, less responsive. She was discharged a week ago and was admitted for left ankle osteomyelitis. She has not been taking her antibiotic for the last 2 days due to altered level of consciousness. She is unable to provide any history, the history is obtained from the daughters who were at the bedside. She has been seen by the pulmonary and ID services. She has a hx of CAD with an old ASMI by ekg with mildly +trops possible due to an ACS, though, probably elevated due to MAYI and sepsis Social History Smoking Status: Never smoker Exam/Review of Systems Vital Signs Vitals Vital Signs Date Time Temp Pulse Resp B/P Pulse Ox O2 Delivery O2 Flow Rate FiO2 11/12/16 15:00 92 23 126/60 97 Mechanical Ventilator 11/12/16 12:00 98.0 11/12/16 12:00 30 11/12/16 07:30 10.0 Results Result Diagram: 11/11/16 2345 11/11/16 2345 Results 24 hrs Laboratory Tests Test 11/11/16 23:45 11/12/16 00:08 11/12/16 00:30 11/12/16 02:50 White Blood Count 23.8 #H Red Blood Count 5.09 Hemoglobin 14.9 Hematocrit 46.7 Mean Corpuscular Volume 91.7 Mean Corpuscular Hemoglobin 29.3 Mean Corpuscular Hemoglobin Concent 31.9 L Red Cell Distribution Width 15.3 H Platelet Count 260 Mean Platelet Volume 9.8 Neutrophils % 69.9 Lymphocytes % 19.0 Monocytes % 9.9 Eosinophils % 0.0 Basophils % 0.5 Nucleated Red Blood Cells % 0.0 Neutrophils # 16.7 H Lymphocytes # 4.5 H Monocytes # 2.4 H Eosinophils # 0.0 Basophils # 0.1 Nucleated Red Blood Cells # 0.0 Prothrombin Time 17.0 H Prothrombin Time Ratio 1.3 INR International Normalized Ratio 1.38 Activated Partial Thromboplast Time 23.4 L Sodium Level 164 *H Potassium Level 3.8 Chloride Level 117 H Carbon Dioxide Level 23 Anion Gap 28 H Blood Urea Nitrogen 77 H Creatinine 3.55 H Glucose Level 277 H Bedside Glucose 261 H Lactic Acid Level 4.1 *H 3.1 H Calcium Level 10.8 H Total Bilirubin 0.4 Direct Bilirubin 0.00 Indirect Bilirubin 0.4 Aspartate Amino Transf (AST/SGOT) 39 Alanine Aminotransferase (ALT/SGPT) 21 Alkaline Phosphatase 68 Troponin I 0.129 *H Total Protein 8.2 H Albumin 4.1 Globulin 4.10 H Albumin/Globulin Ratio 1.00 Bedside Urine pH (LAB) 6.0 Bedside Urine Protein (LAB) 2+ H Bedside Urine Glucose (UA) 0.50% H Bedside Urine Ketones (LAB) Negative Bedside Urine Blood 2+ H Bedside Urine Nitrite (LAB) Negative Bedside Urine Leukocyte Esterase (L 3+ H Blood Gas Specimen Source Blood arterial Arterial Blood Date Drawn 11/12/2016 12:54:43 AM Arterial Blood pH (Temp corrected) 7.430 Arterial Blood pCO2 (Temp correct) 25.3 L Arterial Blood pO2 (Temp corrected) 240.4 H Arterial Blood HCO3 16.4 L Arterial Blood Base Excess -5.9 L Arterial Blood Oxygen Saturation 99.1 Herminio Test N/A Arterial Blood Gas Puncture Site Right Brachial Arterial Blood Carboxyhemoglobin 0.3 Arterial Blood Methemoglobin 0.4 Blood Gas A-a O2 Differential 447.3 H Oxyhemoglobin Percent 98.4 Total Hemoglobin 15.2 Blood Gas Temperature 37.0 Blood Gas Respiration Rate 20.0 Blood Gas Actual Respiration Rate 20 Blood Gas Modality VENT - AC FiO2 100.0 Blood Gas Tidal Volume 500.0 Blood Gas Low PEEP Setting 5.0 Blood Gas Inspiratory Pressure 38.0 Blood Gas Notified Whom MM Blood Gas Notified Time 11/12/2016 12:58:23 AM Test 11/12/16 05:15 11/12/16 09:30 11/12/16 12:39 Lactic Acid Level 2.7 H Troponin I 0.151 *H Bedside Glucose 166 Medications Medications Current Medications Meropenem 100 ml @ 200 mls/hr DAILY IVPB Last administered on 11/12/16 10:02 ; Admin Dose 200 MLS/HR; Start 11/12/16 at 09:30 Sodium Chloride (1/2 NS) 1,000 ml @ 100 mls/hr Q10H IV Last administered on 10:02; Admin Dose 100 MLS/HR; Start 11/12/16 at 08:30 Miscellaneous Information 1 ea NOTE XX ; Start 11/12/16 at 08:30 Glucose (Glutose) 15 gm Q15M PRN PO DECREASED GLUCOSE; Start 11/12/16 at 08:30 Glucose (Glutose) 22.5 gm Q15M PRN PO DECREASED GLUCOSE; Start 11/12/16 at 08: 30 Dextrose (D50w Syringe) 25 ml Q15M PRN IV DECREASED GLUCOSE; Start 11/12/16 at 08:30 Dextrose (D50w Syringe) 50 ml Q15M PRN IV DECREASED GLUCOSE; Start 11/12/16 at 08:30 Glucagon (Glucagen) 1 mg Q15M PRN IM DECREASED GLUCOSE; Start 11/12/16 at 08:30 Glucose 15 gm 15 gm Q15M PRN BUCCAL DECREASED GLUCOSE; Start 11/12/16 at 08:30 Norepinephrine/ Dextrose (Levophed/D5W) 500 ml @ 1.875 mls/ hr TITRATE IV ; Start 11/12/16 at 10:00 FRED RUIZ MD Nov 12, 2016 15:43
[2016-11-13] VITALS (37 sets, daily range): BP systolic 114–157; BP diastolic 36–72; PULSE 73–94; RESP 14–24
[2016-11-13] MEDS: SOD CHLORIDE 0.45% 1,000 ML IV SCH ×2 (05:27→15:45)
--- NOTE | 2016-11-13 06:20 | CONS ---
Date/Time of Note Date/Time of Note DATE: 11/13/16 TIME: 06:16 Assessment/Plan Assessment/Plan Chief Complaint/Hosp Course 1) asp pneumonia continue with vanco/merrem to cover resistant organisms 11/13 - sputum cx ordered no change 2) pyuria and possible UTI await maturation of urine cx 11/13 - urine cx is pending 3) L heal osteo s/p debridement about a week ago merrem will cover the kleb that was there before repeat wound cx 11/13 - wound cx is pending 4) PVD no reversible stenosis found to LLE 5) GPR in blood cx 11/13 - this likely is a contaminant repeat blood cx this a.m. Problems: Consultation Date/Type/Reason Admit Date/Time Nov 12, 2016 at 05:22 Initial Consult Date 11/12/16 Type of Consultation: ID 24 HR Interval Summary Free Text/Dictation intubated no response Subjective hx not possible: pt non-verbal Exam/Review of Systems Vital Signs Vitals Vital Signs Date Time Temp Pulse Resp B/P Pulse Ox O2 Delivery O2 Flow Rate FiO2 11/13/16 05:15 91 19 96 30 11/13/16 04:00 97.4 137/53 Mechanical Ventilator 11/12/16 07:30 10.0 Intake and Output 11/12/16 11/12/16 11/13/16 15:00 23:00 07:00 Intake Total 550 ml 800 ml 600 ml Output Total 720 ml 195 ml 160 ml Balance -170 ml 605 ml 440 ml Exam Constitutional: non-verbal Respiratory: clear to auscultation Cardiovascular: regular rate and rhythm Gastrointestinal: non-tender, soft Extremities: other (L heal is bandaged, some swelling of L hand) Results Result Diagram: 11/11/16 2345 11/11/16 2345 Results 24 hrs Laboratory Tests Test 11/12/16 09:30 11/12/16 12:39 11/12/16 18:01 11/12/16 20:51 Troponin I 0.151 *H Bedside Glucose 166 196 177 Medications Medications Current Medications Meropenem 100 ml @ 200 mls/hr DAILY IVPB Last administered on 11/12/16t 10:02 ; Admin Dose 200 MLS/HR; Start 11/12/16 at 09:30 Sodium Chloride (1/2 NS) 1,000 ml @ 100 mls/hr Q10H IV Last administered on 05:27; Admin Dose 100 MLS/HR; Start 11/12/16 at 08:30 Miscellaneous Information 1 ea NOTE XX ; Start 11/12/16 at 08:30 Glucose (Glutose) 15 gm Q15M PRN PO DECREASED GLUCOSE; Start 11/12/16 at 08:30 Glucose (Glutose) 22.5 gm Q15M PRN PO DECREASED GLUCOSE; Start 11/12/16 at 08: 30 Dextrose (D50w Syringe) 25 ml Q15M PRN IV DECREASED GLUCOSE; Start 11/12/16 at 08:30 Dextrose (D50w Syringe) 50 ml Q15M PRN IV DECREASED GLUCOSE; Start 11/12/16 at 08:30 Glucagon (Glucagen) 1 mg Q15M PRN IM DECREASED GLUCOSE; Start 11/12/16 at 08:30 Glucose 15 gm 15 gm Q15M PRN BUCCAL DECREASED GLUCOSE; Start 11/12/16 at 08:30 Norepinephrine/ Dextrose (Levophed/D5W) 500 ml @ 1.875 mls/ hr TITRATE IV ; Start 11/12/16 at 10:00 ANTHONY WOODARD MD Nov 13, 2016 06:20
[2016-11-13 07:48] LABS: ADD SCAN DIFF NO
[2016-11-13 07:59] LABS: ABNORMAL IP MESSAGE 1; HEMATOCRIT 42.1 % (37.0-47.0); HEMOGLOBIN 13.7 g/dl (12.0-16.0); MEAN CORPUSCULAR HEMOGLOBIN 29.9 pg (29.0-33.0); MEAN CORPUSCULAR HGB CONC 32.5 g/dl (32.0-37.0); MEAN CORPUSCULAR VOLUME 91.9 fl (82.0-101.0); MEAN PLATELET VOLUME 10.6 fl (7.4-10.4); PLATELET COUNT 162 10^3/UL (140-415); RED BLOOD COUNT 4.58 10^6/ul (4.20-5.40); RED CELL DISTRIBUTION WIDTH 15.6 % (11.5-14.5); WHITE BLOOD COUNT 25.5 10^3/ul (4.8-10.8)
[2016-11-13] MEDS: INSULIN ASPART [NOVOLOG] 3 ML PEN SC SCH ×4 (08:04→21:06)
[2016-11-13] MEDS: MEROPENEM 500 MG/100 ML (PMX) 100 ML IVPB SCH (08:54)
[2016-11-13 08:56] LABS: ALBUMIN 3.4 g/dl (3.3-4.9); ALBUMIN/GLOBULIN RATIO 1.03; BILIRUBIN,INDIRECT 0.4 mg/dl (0-1.1); BILIRUBIN,TOTAL 0.4 mg/dl (0.2-1.3); CALCIUM 8.9 mg/dl (8.4-10.2); CREATININE 3.12 mg/dl (0.44-1.00); POTASSIUM 3.5 mmol/L (3.5-5.1); TOTAL PROTEIN 6.7 g/dl (6.1-8.1)
--- NOTE | 2016-11-13 09:25 | CONS ---
Date/Time of Note Date/Time of Note DATE: 11/13/16 TIME: 09:22 Assessment/Plan Assessment/Plan Additional Assessment/Plan Ventilator setting; AC of 14, tidal volume 450, PEEP of 5, 30% FiO2. Assessment recommendations; 1. Patient admitted with UTI and sepsis with severe intravascular volume depletion and hypernatremia. All parameters are improving. 2. Multiple other comorbidities including history of hypertension, coronary artery disease, peripheral vascular disease, sacral and heel ulcers, and diabetes. Patient has been switched over to CPAP mode. Once the patient has been on it for at least 30 minutes an ABG will be done. If the parameters remain adequate and she will be extubated. I had a detailed discussion the patient's family at bedside and answered all their questions. 35 minutes of critical care time was spent evaluating the patient. Consultation Date/Type/Reason Admit Date/Time Nov 12, 2016 at 05:22 Initial Consult Date 11/12/16 Type of Consultation: Pulmonary/critical care 24 HR Interval Summary Free Text/Dictation Patient condition remains critical. Patient has been off sedation and is somewhat arousable. Hemodynamically stable. Not requiring any pressor support. General exam; elderly woman, on ventilator via endotracheal tube. Somewhat arousable. Currently in no distress. Exam/Review of Systems Vital Signs Vitals Vital Signs Date Time Temp Pulse Resp B/P Pulse Ox O2 Delivery O2 Flow Rate FiO2 11/13/16 09:00 30 11/13/16 06:00 92 21 154/36 89 Mechanical Ventilator 11/13/16 04:00 97.4 11/12/16 07:30 10.0 Intake and Output 11/12/16 11/12/16 11/13/16 15:00 23:00 07:00 Intake Total 550 ml 800 ml 700 ml Output Total 720 ml 195 ml 205 ml Balance -170 ml 605 ml 495 ml Exam HEENT examination; supple neck, no JVD. No lymphadenopathy. Midline trachea. No thyromegaly. Patient has a right corneal opacity. There is a left intraocular lens implant. Dentition is fair. Orally intubated. Chest examination; clear to ulceration. S1-S2 audible, no murmurs. Regular rhythm. Abdomen examination; soft, no organomegaly. There is a well-healed infraumbilical scar. Bowel sounds audible. Extremity exam is; patient has a right below-knee in position. Back examination reveals sacral decubitus ulcer stage II. Also there is a small ulcer involving the left heel. SURGICAL NURSE PRACTITIONER examination; patient is mildly sedated. But arousable. Results Result Diagram: 11/13/16 0726 11/13/16 0726 Results 24 hrs Laboratory Tests Test 11/12/16 09:30 11/12/16 12:39 11/12/16 18:01 11/12/16 20:51 Troponin I 0.151 *H Bedside Glucose 166 196 177 Test 11/13/16 07:26 11/13/16 08:01 White Blood Count 25.5 H Red Blood Count 4.58 Hemoglobin 13.7 Hematocrit 42.1 Mean Corpuscular Volume 91.9 Mean Corpuscular Hemoglobin 29.9 Mean Corpuscular Hemoglobin Concent 32.5 Red Cell Distribution Width 15.6 H Platelet Count 162 # Mean Platelet Volume 10.6 H Neutrophils % Eosinophils % Neutrophils # Eosinophils # Sodium Level 152 H Potassium Level 3.5 Chloride Level 121 H Carbon Dioxide Level 17 L Anion Gap 18 #H Blood Urea Nitrogen 76 H Creatinine 3.12 H Glucose Level 246 H Calcium Level 8.9 Total Bilirubin 0.4 Direct Bilirubin 0.00 Indirect Bilirubin 0.4 Aspartate Amino Transf (AST/SGOT) 53 H Alanine Aminotransferase (ALT/SGPT) 38 Alkaline Phosphatase 79 Total Protein 6.7 # Albumin 3.4 Globulin 3.30 H Albumin/Globulin Ratio 1.03 Bedside Glucose 218 Medications Medications Current Medications Meropenem 100 ml @ 200 mls/hr DAILY IVPB Last administered on 11/13/16 08:54 ; Admin Dose 200 MLS/HR; Start 11/12/16 at 09:30 Sodium Chloride (1/2 NS) 1,000 ml @ 100 mls/hr Q10H IV Last administered on 05:27; Admin Dose 100 MLS/HR; Start 11/12/16 at 08:30 Miscellaneous Information 1 ea NOTE XX ; Start 11/12/16 at 08:30 Glucose (Glutose) 15 gm Q15M PRN PO DECREASED GLUCOSE; Start 11/12/16 at 08:30 Glucose (Glutose) 22.5 gm Q15M PRN PO DECREASED GLUCOSE; Start 11/12/16 at 08: 30 Dextrose (D50w Syringe) 25 ml Q15M PRN IV DECREASED GLUCOSE; Start 11/12/16 at 08:30 Dextrose (D50w Syringe) 50 ml Q15M PRN IV DECREASED GLUCOSE; Start 11/12/16 at 08:30 Glucagon (Glucagen) 1 mg Q15M PRN IM DECREASED GLUCOSE; Start 11/12/16 at 08:30 Glucose 15 gm 15 gm Q15M PRN BUCCAL DECREASED GLUCOSE; Start 11/12/16 at 08:30 Norepinephrine/ Dextrose (Levophed/D5W) 500 ml @ 1.875 mls/ hr TITRATE IV ; Start 11/12/16 at 10:00 MILO CHARLES Nov 13, 2016 09:25
[2016-11-13 10:23] LABS: EOSINOPHILS # 0.5 10^3/ul (0.0-0.5); LYMPHOCYTES # 3.1 10^3/ul (0.8-2.9); NEUTROPHIL # 17.3 10^3/ul (1.6-7.5)
[2016-11-13] MEDS ORDERED: LEVALBUTEROL (NEB) 0.63 MG/3 ML AMP HHN SCH (14:30)
--- NOTE | 2016-11-13 17:22 | PN ---
Date/Time of Note Date/Time of Note DATE: 11/13/16 TIME: 17:20 Assessment/Plan VTE Prophylaxis VTE Prophylaxis Intervention: SCD's Lines/Catheters IV Catheter Type (from Nrsg): Central Line Central line still needed: No Urinary Cath still in place: Yes Reason Cath still needed: urinary retention Assessment/Plan Chief Complaint/Hosp Course The patient is a 81-year-old female, presenting to the ER because of altered level of consciousness for the last 2 days, decreased appetite, less responsive. She was discharged a week ago and was admitted for left ankle osteomyelitis. She has not been taking her antibiotic for the last 2 days due to altered level of consciousness. She is unable to provide any history, the history is obtained from the daughters who were at the bedside. She has been seen by the pulmonary and ID services. 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 - asa/statin/coreg > no acei due to mayi Subjective 24 Hr Interval Summary Free Text/Dictation The patient with no change Exam/Review of Systems Vital Signs Vitals Vital Signs Date Time Temp Pulse Resp B/P Pulse Ox O2 Delivery O2 Flow Rate FiO2 11/13/16 16:00 79 11/13/16 16:00 98.8 17 130/51 93 Mechanical Ventilator 11/13/16 15:10 40 11/12/16 07:30 10.0 Intake and Output 11/12/16 11/12/16 11/13/16 15:00 23:00 07:00 Intake Total 550 ml 800 ml 800 ml Output Total 720 ml 195 ml 205 ml Balance -170 ml 605 ml 595 ml Results Result Diagram: 11/13/16 0726 11/13/16 0726 Results 24 hrs Laboratory Tests Test 11/12/16 18:01 11/12/16 20:51 11/13/16 07:20 11/13/16 07:26 Bedside Glucose 196 177 B-Type Natriuretic Peptide 2630 H White Blood Count 25.5 H Red Blood Count 4.58 Hemoglobin 13.7 Hematocrit 42.1 Mean Corpuscular Volume 91.9 Mean Corpuscular Hemoglobin 29.9 Mean Corpuscular Hemoglobin Concent 32.5 Red Cell Distribution Width 15.6 H Platelet Count 162 # Mean Platelet Volume 10.6 H Neutrophils % 68.0 Band Neutrophils % 14.0 H Lymphocytes % 12.0 L Monocytes % 4.0 Eosinophils % 2.0 Neutrophils # 17.3 H Lymphocytes # 3.1 H Monocytes # 1.0 H Eosinophils # 0.5 Erythrocyte Sedimentation Rate 75 H Sodium Level 152 H Potassium Level 3.5 Chloride Level 121 H Carbon Dioxide Level 17 L Anion Gap 18 #H Blood Urea Nitrogen 76 H Creatinine 3.12 H Glucose Level 246 H Calcium Level 8.9 Total Bilirubin 0.4 Direct Bilirubin 0.00 Indirect Bilirubin 0.4 Aspartate Amino Transf (AST/SGOT) 53 H Alanine Aminotransferase (ALT/SGPT) 38 Alkaline Phosphatase 79 Total Protein 6.7 # Albumin 3.4 Globulin 3.30 H Albumin/Globulin Ratio 1.03 Test 11/13/16 08:01 11/13/16 11:46 Bedside Glucose 218 190 Medications Medications Current Medications Meropenem 100 ml @ 200 mls/hr DAILY IVPB Last administered on 11/13/16 08:54 ; Admin Dose 200 MLS/HR; Start 11/12/16 at 09:30 Sodium Chloride (1/2 NS) 1,000 ml @ 100 mls/hr Q10H IV Last administered on 15:45; Admin Dose 100 MLS/HR; Start 11/12/16 at 08:30 Miscellaneous Information 1 ea NOTE XX ; Start 11/12/16 at 08:30 Glucose (Glutose) 15 gm Q15M PRN PO DECREASED GLUCOSE; Start 11/12/16 at 08:30 Glucose (Glutose) 22.5 gm Q15M PRN PO DECREASED GLUCOSE; Start 11/12/16 at 08: 30 Dextrose (D50w Syringe) 25 ml Q15M PRN IV DECREASED GLUCOSE; Start 11/12/16 at 08:30 Dextrose (D50w Syringe) 50 ml Q15M PRN IV DECREASED GLUCOSE; Start 11/12/16 at 08:30 Glucagon (Glucagen) 1 mg Q15M PRN IM DECREASED GLUCOSE; Start 11/12/16 at 08:30 Glucose 15 gm 15 gm Q15M PRN BUCCAL DECREASED GLUCOSE; Start 11/12/16 at 08:30 Norepinephrine/ Dextrose (Levophed/D5W) 500 ml @ 1.875 mls/ hr TITRATE IV ; Start 11/12/16 at 10:00 Miscellaneous Information (*Rx Drug Level Order Reminder*) 1 ONCE ONCE XX ; Start 11/14/16 at 05:00; Stop 11/14/16 at 05:01 Enoxaparin Sodium (Lovenox) 30 mg DAILY SC ; Start 11/14/16 at 09:00 FRED RUIZ MD Nov 13, 2016 17:22
[2016-11-13] MEDS: LEVALBUTEROL (HFA) 15 GM INHALER INH SCH (20:57)
[2016-11-14] VITALS (29 sets, daily range): BP systolic 106–153; BP diastolic 46–95; PULSE 64–85; RESP 11–26
[2016-11-14] MEDS: LEVALBUTEROL (HFA) 15 GM INHALER INH SCH ×4 (01:04→20:00)
[2016-11-14] MEDS: SOD CHLORIDE 0.45% 1,000 ML IV SCH ×3 (01:49→22:19)
[2016-11-14 05:57] LABS: ADD SCAN DIFF NO
[2016-11-14 06:05] LABS: HEMATOCRIT 38.3 % (37.0-47.0); HEMOGLOBIN 12.3 g/dl (12.0-16.0); MEAN CORPUSCULAR HEMOGLOBIN 29.6 pg (29.0-33.0); MEAN CORPUSCULAR HGB CONC 32.1 g/dl (32.0-37.0); MEAN CORPUSCULAR VOLUME 92.1 fl (82.0-101.0); MEAN PLATELET VOLUME 10.9 fl (7.4-10.4); PLATELET COUNT 141 10^3/UL (140-415); RED BLOOD COUNT 4.16 10^6/ul (4.20-5.40); RED CELL DISTRIBUTION WIDTH 15.7 % (11.5-14.5); WHITE BLOOD COUNT 23.8 10^3/ul (4.8-10.8)
[2016-11-14 06:43] LABS: CALCIUM 8.5 mg/dl (8.4-10.2); CREATININE 2.5 mg/dl (0.44-1.00); POTASSIUM 3.3 mmol/L (3.5-5.1)
[2016-11-14] MEDS ORDERED: POTASSIUM CHLORIDE (SR) 20 MEQ TAB PO STA (08:13)
[2016-11-14] MEDS: INSULIN ASPART [NOVOLOG] 3 ML PEN SC SCH ×4 (08:20→21:00)
[2016-11-14] MEDS: ENOXAPARIN 30 MG/0.3 ML SYG SC SCH (09:03)
--- NOTE | 2016-11-14 09:06 | CONS ---
Date/Time of Note Date/Time of Note DATE: 11/14/16 TIME: 09:03 Assessment/Plan Assessment/Plan Additional Assessment/Plan Ventilator setting; patient currently on AC of 14, tidal volume 450, PEEP of 5, 35% FiO2. Assessment recommendations; 1. Patient admitted with severe sepsis from UTI leading to respiratory failure. 2. Severe intravascular volume depletion with severe hypernatremia with significant interval improvement as well after IV and enteral hydration. 3. Other comorbidities including hypertension, coronary artery disease, peripheral vascular disease, and sacral and heel decubitus ulcers. 4. Diabetes. Patient has been switched to CPAP mode. If the patient meets weaning criteria she will be extubated. Meanwhile continue current supportive care. Address hyperglycemia. Consultation Date/Type/Reason Admit Date/Time Nov 12, 2016 at 05:22 Initial Consult Date 11/12/16 Type of Consultation: Pulmonary/critical care 24 HR Interval Summary Free Text/Dictation Patient's condition remains critical but stable the patient is fairly awake. Has remained hemodynamically stable. Off sedation since yesterday morning. General exam; elderly woman, orally intubated, currently in no distress. Awake. Exam/Review of Systems Vital Signs Vitals Vital Signs Date Time Temp Pulse Resp B/P Pulse Ox O2 Delivery O2 Flow Rate FiO2 11/14/16 08:00 77 11/14/16 06:00 16 130/59 100 Mechanical Ventilator 11/14/16 05:03 35 11/14/16 04:00 98.3 11/12/16 07:30 10.0 Intake and Output 11/13/16 11/13/16 11/14/16 15:00 23:00 07:00 Intake Total 1140 ml 1360 ml 1750 ml Output Total 345 ml 350 ml 360 ml Balance 795 ml 1010 ml 1390 ml Exam HEENT exam; supple neck, no JVD. No lymphadenopathy. Midline trachea. No thyromegaly. Patient has a right corneal opacity. There is a left intraocular lens implant. Patient is edentulous. Orally intubated. Chest examination; clear to auscultation. S1-S2 audible, no murmurs. Regular rhythm. Abdomen examination; soft, no organomegaly. Nontender. Bowel sounds audible. Extremity examination; no peripheral edema. Patient has a multiple ecchymosis involving all 4 extremities. 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 Results Result Diagram: 11/14/16 0510 11/14/16 0510 Results 24 hrs Laboratory Tests Test 11/13/16 11:46 11/13/16 17:20 11/13/16 20:56 11/14/16 05:10 Bedside Glucose 190 137 195 White Blood Count 23.8 H Red Blood Count 4.16 L Hemoglobin 12.3 Hematocrit 38.3 Mean Corpuscular Volume 92.1 Mean Corpuscular Hemoglobin 29.6 Mean Corpuscular Hemoglobin Concent 32.1 Red Cell Distribution Width 15.7 H Platelet Count 141 Mean Platelet Volume 10.9 H Neutrophils % Eosinophils % Neutrophils # Eosinophils # Sodium Level 150 H Potassium Level 3.3 L Chloride Level 118 H Carbon Dioxide Level 21 Anion Gap 14 Blood Urea Nitrogen 82 H Creatinine 2.50 H Glucose Level 323 H Calcium Level 8.5 Random Vancomycin Level 7.8 Test 11/14/16 08:18 Bedside Glucose 311 H Medications Medications Current Medications Meropenem 100 ml @ 200 mls/hr DAILY IVPB Last administered on 11/13/16 08:54 ; Admin Dose 200 MLS/HR; Start 11/12/16 at 09:30 Sodium Chloride (1/2 NS) 1,000 ml @ 100 mls/hr Q10H IV Last administered on 01:49; Admin Dose 100 MLS/HR; Start 11/12/16 at 08:30 Miscellaneous Information 1 ea NOTE XX ; Start 11/12/16 at 08:30 Glucose (Glutose) 15 gm Q15M PRN PO DECREASED GLUCOSE; Start 11/12/16 at 08:30 Glucose (Glutose) 22.5 gm Q15M PRN PO DECREASED GLUCOSE; Start 11/12/16 at 08: 30 Dextrose (D50w Syringe) 25 ml Q15M PRN IV DECREASED GLUCOSE; Start 11/12/16 at 08:30 Dextrose (D50w Syringe) 50 ml Q15M PRN IV DECREASED GLUCOSE; Start 11/12/16 at 08:30 Glucagon (Glucagen) 1 mg Q15M PRN IM DECREASED GLUCOSE; Start 11/12/16 at 08:30 Glucose 15 gm 15 gm Q15M PRN BUCCAL DECREASED GLUCOSE; Start 11/12/16 at 08:30 Norepinephrine/ Dextrose (Levophed/D5W) 500 ml @ 1.875 mls/ hr TITRATE IV ; Start 11/12/16 at 10:00 Enoxaparin Sodium 30 mg 30 mg DAILY SC ; Start 11/14/16 at 09:00 Vancomycin HCl/ Sodium Chloride (Vancocin/NS) 250 ml @ 83.333 mls/ hr 11 IVPB ; Start 11/14/16 at 11:00; Stop 11/14/16 at 20:00 MILO CHARLES Nov 14, 2016 09:06
[2016-11-14] MEDS: MEROPENEM 500 MG/100 ML (PMX) 100 ML IVPB SCH (09:31)
--- NOTE | 2016-11-14 09:32 | RADRPT ---
PROCEDURE: XR Chest 1 View. CLINICAL INDICATION: Shortness of breath. TECHNIQUE: AP view of the chest was obtained. COMPARISON: November 12, 2016 FINDINGS: The heart size is within normal limits. Calcified atherosclerosis is noted in the aorta. Nasogastri c tube has its distal end in the expected location of the stomach. Endotracheal tube is stable. Ri ght-sided central line is unchanged. Scattered atelectasis is seen in the bilateral lower lobes. No consolidations are identified. No pneumothorax is seen. The osseous structures are osteopenic, bu t appear grossly intact. Degenerative changes are seen in the shoulders. IMPRESSION: Calcified atherosclerosis in the aorta. Nasogastric tube with its distal end in the expected location of the stomach. Subsegmental atelectasis in the bilateral lower lobes. RPTAT: AA .Norberto Castro MD, MD Date Time Electronically viewed and signed by .Norberto Castro MD, MD on 11/14/2016 09:32 .P/
[2016-11-14 10:47] LABS: AADO2 Arterial 122.8 mmHg (7.0-24.0); Arterial COHb 0.3 % (0.0-3.0); Arterial Fraction of Oxyhgb 96.3 % (93.0-99.0); Arterial HCO3 14.6 mmol/L (22.0-26.0); Arterial MetHb 0.3 % (0.0-1.5); Arterial Total Hemglobin 13.3 g/dl (12.0-18.0); Blood Gas PS 10; MODE VENT - CPAP
[2016-11-14] MEDS ORDERED: VANCOMYCIN 1.25 GM in SOD CHLORIDE 0.9% 250 ML IVPB SCH (11:00)
--- NOTE | 2016-11-14 11:07 | PN ---
Date/Time of Note Date/Time of Note DATE: 11/14/16 TIME: 11:06 Assessment/Plan VTE Prophylaxis VTE Prophylaxis Intervention: other Lines/Catheters [facility] Central Line Central line still needed: Yes Urinary Cath still in place: Yes Reason Cath still needed: skin wounds contaminated by urine Assessment/Plan Chief Complaint/Hosp Course 1. Respiratory failure. Will continue the patient on the ventilator and have the clinical resource director assist with pulmonary care. 2. Possible non-ST elevation myocardial infarction. The patient with a positive troponin. Will have cardiology assist with the patient. Will continue the patient in the ICU and do serial troponins to evaluate for possible myocardial infarction. 3. Acute renal failure. Will give IV fluid hydration, follow a chemistry panel , and give IV half normal saline because of hypernatremia. 4. Urosepsis. Will give IV antibiotics, including vancomycin and meropenem, and have infectious disease assist with care. 5. Osteomyelitis. The patient will likely need to be continued on doxycycline and ciprofloxacin, but will have Dr. Shen from infectious disease assist with antibiotic care. 6. Diabetes. Will keep the patient n.p.o., but use NovoLog sliding scale. Problems: Subjective 24 Hr Interval Summary Free Text/Dictation Patient is sedated and intubated Exam/Review of Systems Vital Signs Vitals Vital Signs Date Time Temp Pulse Resp B/P Pulse Ox O2 Delivery O2 Flow Rate FiO2 11/14/16 08:00 77 11/14/16 06:00 16 130/59 100 Mechanical Ventilator 11/14/16 05:03 35 11/14/16 04:00 98.3 11/12/16 07:30 10.0 Intake and Output 11/13/16 11/13/16 11/14/16 14:59 22:59 06:59 Intake Total 1120 ml 1330 ml 1750 ml Output Total 310 ml 350 ml 385 ml Balance 810 ml 980 ml 1365 ml Exam Constitutional: well developed Head: atraumatic, normocephalic Neck: supple Respiratory: diminished breath sounds Cardiovascular: regular rate and rhythm Gastrointestinal: non-tender, soft Extremities: normal pulses Results Result Diagram: 11/14/16 0510 11/14/16 0510 Results 24 hrs Laboratory Tests Test 11/13/16 11:46 11/13/16 17:20 11/13/16 20:56 11/14/16 05:10 Bedside Glucose 190 137 195 White Blood Count 23.8 H Red Blood Count 4.16 L Hemoglobin 12.3 Hematocrit 38.3 Mean Corpuscular Volume 92.1 Mean Corpuscular Hemoglobin 29.6 Mean Corpuscular Hemoglobin Concent 32.1 Red Cell Distribution Width 15.7 H Platelet Count 141 Mean Platelet Volume 10.9 H Neutrophils % Eosinophils % Neutrophils # Eosinophils # Sodium Level 150 H Potassium Level 3.3 L Chloride Level 118 H Carbon Dioxide Level 21 Anion Gap 14 Blood Urea Nitrogen 82 H Creatinine 2.50 H Glucose Level 323 H Calcium Level 8.5 Random Vancomycin Level 7.8 Test 11/14/16 08:18 11/14/16 10:30 Bedside Glucose 311 H Blood Gas Specimen Source Blood arterial Arterial Blood Date Drawn 11/14/2016 10:30:59 AM Arterial Blood pH (Temp corrected) 7.368 Arterial Blood pCO2 (Temp correct) 26.0 L Arterial Blood pO2 (Temp corrected) 96.5 H Arterial Blood HCO3 14.6 L Arterial Blood Base Excess -9.0 L Arterial Blood Oxygen Saturation 96.9 Herminio Test N/A Arterial Blood Gas Puncture Site Right Brachial Arterial Blood Carboxyhemoglobin 0.3 Arterial Blood Methemoglobin 0.3 Blood Gas A-a O2 Differential 122.8 H Oxyhemoglobin Percent 96.3 Total Hemoglobin 13.3 Blood Gas Temperature 37.0 Blood Gas Actual Respiration Rate 15 Blood Gas Modality VENT - CPAP FiO2 35.0 Blood Gas Low PEEP Setting 5.0 Blood Gas Pressure Support 10 Blood Gas Notified Whom JLD Blood Gas Notified Time 11/14/2016 10:46:56 AM Medications Medications Current Medications Meropenem 100 ml @ 200 mls/hr DAILY IVPB Last administered on 11/14/16 09:31 ; Admin Dose 200 MLS/HR; Start 11/12/16 at 09:30 Sodium Chloride (1/2 NS) 1,000 ml @ 100 mls/hr Q10H IV Last administered on 10:46; Admin Dose 100 MLS/HR; Start 11/12/16 at 08:30 Miscellaneous Information 1 ea NOTE XX ; Start 11/12/16 at 08:30 Glucose (Glutose) 15 gm Q15M PRN PO DECREASED GLUCOSE; Start 11/12/16 at 08:30 Glucose (Glutose) 22.5 gm Q15M PRN PO DECREASED GLUCOSE; Start 11/12/16 at 08: 30 Dextrose (D50w Syringe) 25 ml Q15M PRN IV DECREASED GLUCOSE; Start 11/12/16 at 08:30 Dextrose (D50w Syringe) 50 ml Q15M PRN IV DECREASED GLUCOSE; Start 11/12/16 at 08:30 Glucagon (Glucagen) 1 mg Q15M PRN IM DECREASED GLUCOSE; Start 11/12/16 at 08:30 Glucose 15 gm 15 gm Q15M PRN BUCCAL DECREASED GLUCOSE; Start 11/12/16 at 08:30 Norepinephrine/ Dextrose (Levophed/D5W) 500 ml @ 1.875 mls/ hr TITRATE IV ; Start 11/12/16 at 10:00 Enoxaparin Sodium 30 mg 30 mg DAILY SC Last administered on 11/14/16 09:03; Admin Dose 30 MG; Start 11/14/16 at 09:00 Vancomycin HCl/ Sodium Chloride (Vancocin/NS) 250 ml @ 83.333 mls/ hr 11 IVPB Last administered on 11/14/16 10:46; Admin Dose 83.333 MLS/HR; Start 11/14/16 at 11:00; Stop 11/14/16 at 20:00 JERMAINE PATEL Nov 14, 2016 11:07
--- NOTE | 2016-11-14 11:59 | PN ---
Date/Time of Note Date/Time of Note DATE: 11/14/16 TIME: 11:58 Assessment/Plan VTE Prophylaxis VTE Prophylaxis Intervention: SCD's Lines/Catheters IV Catheter Type (from Nrsg): Central Line Central line still needed: No Urinary Cath still in place: Yes Reason Cath still needed: urinary retention Assessment/Plan Chief Complaint/Hosp Course The patient is a 81-year-old female, presenting to the ER because of altered level of consciousness for the last 2 days, decreased appetite, less responsive. She was discharged a week ago and was admitted for left ankle osteomyelitis. She has not been taking her antibiotic for the last 2 days due to altered level of consciousness. She is unable to provide any history, the history is obtained from the daughters who were at the bedside. She has been seen by the pulmonary and ID services. 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 > no acei due to mayi Subjective 24 Hr Interval Summary Free Text/Dictation the patient with no cahnge Exam/Review of Systems Vital Signs Vitals Vital Signs Date Time Temp Pulse Resp B/P Pulse Ox O2 Delivery O2 Flow Rate FiO2 11/14/16 11:30 72 14 100 35 11/14/16 06:00 130/59 Mechanical Ventilator 11/14/16 04:00 98.3 11/12/16 07:30 10.0 Intake and Output 11/13/16 11/13/16 11/14/16 15:00 23:00 07:00 Intake Total 1140 ml 1360 ml 1750 ml Output Total 345 ml 350 ml 360 ml Balance 795 ml 1010 ml 1390 ml Results Result Diagram: 11/14/16 0510 11/14/16 0510 Results 24 hrs Laboratory Tests Test 11/13/16 17:20 11/13/16 20:56 11/14/16 05:10 11/14/16 08:18 Bedside Glucose 137 195 311 H White Blood Count 23.8 H Red Blood Count 4.16 L Hemoglobin 12.3 Hematocrit 38.3 Mean Corpuscular Volume 92.1 Mean Corpuscular Hemoglobin 29.6 Mean Corpuscular Hemoglobin Concent 32.1 Red Cell Distribution Width 15.7 H Platelet Count 141 Mean Platelet Volume 10.9 H Neutrophils % Eosinophils % Neutrophils # Eosinophils # Sodium Level 150 H Potassium Level 3.3 L Chloride Level 118 H Carbon Dioxide Level 21 Anion Gap 14 Blood Urea Nitrogen 82 H Creatinine 2.50 H Glucose Level 323 H Calcium Level 8.5 Random Vancomycin Level 7.8 Test 11/14/16 10:30 11/14/16 11:51 Blood Gas Specimen Source Blood arterial Arterial Blood Date Drawn 11/14/2016 10:30:59 AM Arterial Blood pH (Temp corrected) 7.368 Arterial Blood pCO2 (Temp correct) 26.0 L Arterial Blood pO2 (Temp corrected) 96.5 H Arterial Blood HCO3 14.6 L Arterial Blood Base Excess -9.0 L Arterial Blood Oxygen Saturation 96.9 Herminio Test N/A Arterial Blood Gas Puncture Site Right Brachial Arterial Blood Carboxyhemoglobin 0.3 Arterial Blood Methemoglobin 0.3 Blood Gas A-a O2 Differential 122.8 H Oxyhemoglobin Percent 96.3 Total Hemoglobin 13.3 Blood Gas Temperature 37.0 Blood Gas Actual Respiration Rate 15 Blood Gas Modality VENT - CPAP FiO2 35.0 Blood Gas Low PEEP Setting 5.0 Blood Gas Pressure Support 10 Blood Gas Notified Whom JLD Blood Gas Notified Time 11/14/2016 10:46:56 AM Bedside Glucose 243 H Medications Medications Current Medications Meropenem 100 ml @ 200 mls/hr DAILY IVPB Last administered on 11/14/16 09:31 ; Admin Dose 200 MLS/HR; Start 11/12/16 at 09:30 Sodium Chloride (1/2 NS) 1,000 ml @ 100 mls/hr Q10H IV Last administered on 10:46; Admin Dose 100 MLS/HR; Start 11/12/16 at 08:30 Miscellaneous Information 1 ea NOTE XX ; Start 11/12/16 at 08:30 Glucose (Glutose) 15 gm Q15M PRN PO DECREASED GLUCOSE; Start 11/12/16 at 08:30 Glucose (Glutose) 22.5 gm Q15M PRN PO DECREASED GLUCOSE; Start 11/12/16 at 08: 30 Dextrose (D50w Syringe) 25 ml Q15M PRN IV DECREASED GLUCOSE; Start 11/12/16 at 08:30 Dextrose (D50w Syringe) 50 ml Q15M PRN IV DECREASED GLUCOSE; Start 11/12/16 at 08:30 Glucagon (Glucagen) 1 mg Q15M PRN IM DECREASED GLUCOSE; Start 11/12/16 at 08:30 Glucose 15 gm 15 gm Q15M PRN BUCCAL DECREASED GLUCOSE; Start 11/12/16 at 08:30 Norepinephrine/ Dextrose (Levophed/D5W) 500 ml @ 1.875 mls/ hr TITRATE IV ; Start 11/12/16 at 10:00 Enoxaparin Sodium 30 mg 30 mg DAILY SC Last administered on 11/14/16 09:03; Admin Dose 30 MG; Start 11/14/16 at 09:00 Vancomycin HCl/ Sodium Chloride (Vancocin/NS) 250 ml @ 83.333 mls/ hr 11 IVPB Last administered on 11/14/16 10:46; Admin Dose 83.333 MLS/HR; Start 11/14/16 at 11:00; Stop 11/14/16 at 20:00 FRED RUIZ MD Nov 14, 2016 11:59
[2016-11-14 12:23] LABS: EOSINOPHILS # 0.2 10^3/ul (0.0-0.5); LYMPHOCYTES # 1.4 10^3/ul (0.8-2.9); NEUTROPHIL # 17.9 10^3/ul (1.6-7.5)
--- NOTE | 2016-11-14 16:42 | CONS ---
Date/Time of Note Date/Time of Note DATE: 11/14/16 TIME: 16:35 Assessment/Plan Assessment/Plan Additional Assessment/Plan Chief Complaint/Hosp Course 1) asp pneumonia continue with vanco/merrem to cover resistant organisms 11/13 - sputum cx ordered no change 2) pyuria and possible UTI await maturation of urine cx 11/13 - urine cx is pending 3) L heal osteo s/p debridement about a week ago merrem will cover the klebsiella that was there before repeat wound cx 11/13 - wound cx is pending 11/14 - wound culture with only diphtheroids and STORE PROTECTION SPECIALIST, neither is likely to be a pathogen. 4) PVD no reversible stenosis found to LLE 5) GPR in blood cx 11/13 - this likely is a contaminant 11/14 - repeat blood cultures are NTD 6) Acute respiratory failure, hypoxic Improving, was extubated Consultation Date/Type/Reason Admit Date/Time Nov 12, 2016 at 05:22 Initial Consult Date 11/12/16 Type of Consultation: Infectious Diseases 24 HR Interval Summary Free Text/Dictation Discussed with RN. Patient was successfully extubated this morning. Two BMs daily (one now). No other issues, off pressors, afebrile, WBC stable, creatinine improving. Total critical care time spent reviewing records, coordinating care and reviewing radiology was 30 minutes. Exam/Review of Systems Vital Signs Vitals Vital Signs Date Time Temp Pulse Resp B/P Pulse Ox O2 Delivery O2 Flow Rate FiO2 11/14/16 16:00 98.3 71 16 132/60 98 Nasal Cannula 3.0 11/14/16 12:00 35 Intake and Output 11/13/16 11/13/16 11/14/16 15:00 23:00 07:00 Intake Total 1140 ml 1360 ml 1750 ml Output Total 345 ml 350 ml 360 ml Balance 795 ml 1010 ml 1390 ml Exam Constitutional: non-verbal, but extubated, arousable during exam Respiratory: clear to auscultation Cardiovascular: regular rate and rhythm Gastrointestinal: non-tender, soft Extremities: other (L heal is bandaged, some swelling of L hand) Lines: right IJ triple is clear Results pcxr from today demonstrates possible RLL infiltrate, which may represent the aspiration pneumonia. Result Diagram: 11/14/16 0510 11/14/16 0510 Results 24 hrs Laboratory Tests Test 11/13/16 17:20 11/13/16 20:56 11/14/16 05:10 11/14/16 08:18 Bedside Glucose 137 195 311 H White Blood Count 23.8 H Red Blood Count 4.16 L Hemoglobin 12.3 Hematocrit 38.3 Mean Corpuscular Volume 92.1 Mean Corpuscular Hemoglobin 29.6 Mean Corpuscular Hemoglobin Concent 32.1 Red Cell Distribution Width 15.7 H Platelet Count 141 Mean Platelet Volume 10.9 H Neutrophils % 75.0 Band Neutrophils % 18.0 H Lymphocytes % 6.0 L Eosinophils % 1.0 Neutrophils # 17.9 H Lymphocytes # 1.4 Eosinophils # 0.2 Large Platelets 1+ Sodium Level 150 H Potassium Level 3.3 L Chloride Level 118 H Carbon Dioxide Level 21 Anion Gap 14 Blood Urea Nitrogen 82 H Creatinine 2.50 H Glucose Level 323 H Calcium Level 8.5 Random Vancomycin Level 7.8 Test 11/14/16 10:30 11/14/16 11:51 Blood Gas Specimen Source Blood arterial Arterial Blood Date Drawn 11/14/2016 10:30:59 AM Arterial Blood pH (Temp corrected) 7.368 Arterial Blood pCO2 (Temp correct) 26.0 L Arterial Blood pO2 (Temp corrected) 96.5 H Arterial Blood HCO3 14.6 L Arterial Blood Base Excess -9.0 L Arterial Blood Oxygen Saturation 96.9 Herminio Test N/A Arterial Blood Gas Puncture Site Right Brachial Arterial Blood Carboxyhemoglobin 0.3 Arterial Blood Methemoglobin 0.3 Blood Gas A-a O2 Differential 122.8 H Oxyhemoglobin Percent 96.3 Total Hemoglobin 13.3 Blood Gas Temperature 37.0 Blood Gas Actual Respiration Rate 15 Blood Gas Modality VENT - CPAP FiO2 35.0 Blood Gas Low PEEP Setting 5.0 Blood Gas Pressure Support 10 Blood Gas Notified Whom JLD Blood Gas Notified Time 11/14/2016 10:46:56 AM Bedside Glucose 243 H Medications Medications Current Medications Meropenem 100 ml @ 200 mls/hr DAILY IVPB Last administered on 11/14/16 09:31 ; Admin Dose 200 MLS/HR; Start 11/12/16 at 09:30 Sodium Chloride (1/2 NS) 1,000 ml @ 100 mls/hr Q10H IV Last administered on 10:46; Admin Dose 100 MLS/HR; Start 11/12/16 at 08:30 Miscellaneous Information 1 ea NOTE XX ; Start 11/12/16 at 08:30 Glucose (Glutose) 15 gm Q15M PRN PO DECREASED GLUCOSE; Start 11/12/16 at 08:30 Glucose (Glutose) 22.5 gm Q15M PRN PO DECREASED GLUCOSE; Start 11/12/16 at 08: 30 Dextrose (D50w Syringe) 25 ml Q15M PRN IV DECREASED GLUCOSE; Start 11/12/16 at 08:30 Dextrose (D50w Syringe) 50 ml Q15M PRN IV DECREASED GLUCOSE; Start 11/12/16 at 08:30 Glucagon (Glucagen) 1 mg Q15M PRN IM DECREASED GLUCOSE; Start 11/12/16 at 08:30 Glucose 15 gm 15 gm Q15M PRN BUCCAL DECREASED GLUCOSE; Start 11/12/16 at 08:30 Norepinephrine/ Dextrose (Levophed/D5W) 500 ml @ 1.875 mls/ hr TITRATE IV ; Start 11/12/16 at 10:00 Enoxaparin Sodium 30 mg 30 mg DAILY SC Last administered on 11/14/16 09:03; Admin Dose 30 MG; Start 11/14/16 at 09:00 Vancomycin HCl/ Sodium Chloride (Vancocin/NS) 250 ml @ 83.333 mls/ hr 11 IVPB Last administered on 11/14/16 10:46; Admin Dose 83.333 MLS/HR; Start 11/14/16 at 11:00; Stop 11/14/16 at 20:00 ALBERTO LEMON Nov 14, 2016 16:42
[2016-11-14] MEDS ORDERED: LEVALBUTEROL (NEB) 0.63 MG/3 ML AMP HHN PRN (22:30)
[2016-11-14] MEDS: IPRATROPIUM (NEB) 0.5 MG/2.5 ML AMP HHN SCH (22:35)
[2016-11-14] MEDS: LEVALBUTEROL (NEB) 0.63 MG/3 ML AMP HHN SCH (22:35)
[2016-11-15] VITALS (23 sets, daily range): BP systolic 111–179; BP diastolic 47–80; PULSE 72–85; RESP 1–20
[2016-11-15] MEDS: SOD CHLORIDE 0.45% 1,000 ML IV SCH (00:10)
[2016-11-15] MEDS: IPRATROPIUM (NEB) 0.5 MG/2.5 ML AMP HHN SCH ×4 (01:46→20:18)
[2016-11-15] MEDS: LEVALBUTEROL (NEB) 0.63 MG/3 ML AMP HHN SCH ×4 (01:46→20:17)
--- NOTE | 2016-11-15 06:32 | CONS ---
Date/Time of Note Date/Time of Note DATE: 11/15/16 TIME: 06:29 Assessment/Plan Assessment/Plan Additional Assessment/Plan Assessment recommendations; 1. Patient admitted with severe sepsis from UTI with respiratory failure now successfully extubated yesterday with stable clinical status. 2. Severe prerenal azotemia with severe hypernatremia and hyperchloremia with marked interval improvement as well after hydration. 3. Sacral and left heel decubitus ulcers. 4. Multiple other comorbidities including diabetes, coronary artery disease, peripheral vascular disease. Continue current treatment. Patient can be transferred to the medical floor. Consultation Date/Type/Reason Admit Date/Time Nov 12, 2016 at 05:22 Initial Consult Date 11/12/16 Type of Consultation: Pulmonary/critical care 24 HR Interval Summary Free Text/Dictation Patient condition stable. She was successfully extubated yesterday afternoon. Patient has remained hemodynamically stable. Remains awake. General exam; elderly woman, awake currently in no distress. Responsive appropriately. Exam/Review of Systems Vital Signs Vitals Vital Signs Date Time Temp Pulse Resp B/P Pulse Ox O2 Delivery O2 Flow Rate FiO2 11/15/16 06:00 98.4 80 14 140/60 99 Nasal Cannula 3.0 11/15/16 02:03 27 Intake and Output 11/14/16 11/14/16 11/15/16 15:00 23:00 07:00 Intake Total 1380.2 ml 715 ml 0 ml Output Total 590 ml 140 ml 550 ml Balance 790.2 ml 575 ml -550 ml Exam HEENT exam; supple neck, no JVD. No lymphadenopathy. Midline trachea. No thyromegaly. Patient has fair dentition. Has a right corneal opacity and a left intraocular lens implant. Chest examined; clear to auscultation. S1-S2 audible, no murmurs. Regular rhythm. Abdomen examination; soft, no organomegaly. Bowel sounds audible. Nontender. Extremity exam; patient is a well-healed right below-knee amputation stump. Multiple ecchymoses are present in all 4 extremities. 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 Results Result Diagram: 11/14/16 0510 11/14/16 0510 Results 24 hrs Laboratory Tests Test 11/14/16 08:18 11/14/16 10:30 11/14/16 11:51 11/14/16 17:30 Bedside Glucose 311 H 243 H 203 Blood Gas Specimen Source Blood arterial Arterial Blood Date Drawn 11/14/2016 10:30:59 AM Arterial Blood pH (Temp corrected) 7.368 Arterial Blood pCO2 (Temp correct) 26.0 L Arterial Blood pO2 (Temp corrected) 96.5 H Arterial Blood HCO3 14.6 L Arterial Blood Base Excess -9.0 L Arterial Blood Oxygen Saturation 96.9 Herminio Test N/A Arterial Blood Gas Puncture Site Right Brachial Arterial Blood Carboxyhemoglobin 0.3 Arterial Blood Methemoglobin 0.3 Blood Gas A-a O2 Differential 122.8 H Oxyhemoglobin Percent 96.3 Total Hemoglobin 13.3 Blood Gas Temperature 37.0 Blood Gas Actual Respiration Rate 15 Blood Gas Modality VENT - CPAP FiO2 35.0 Blood Gas Low PEEP Setting 5.0 Blood Gas Pressure Support 10 Blood Gas Notified Whom JLD Blood Gas Notified Time 11/14/2016 10:46:56 AM Test 11/14/16 21:46 11/15/16 03:52 Bedside Glucose 174 195 Medications Medications Current Medications Meropenem 100 ml @ 200 mls/hr DAILY IVPB Last administered on 11/14/16 09:31 ; Admin Dose 200 MLS/HR; Start 11/12/16 at 09:30 Sodium Chloride (1/2 NS) 1,000 ml @ 100 mls/hr Q10H IV Last administered on 00:10; Admin Dose 100 MLS/HR; Start 11/12/16 at 08:30 Miscellaneous Information 1 ea NOTE XX ; Start 11/12/16 at 08:30 Glucose (Glutose) 15 gm Q15M PRN PO DECREASED GLUCOSE; Start 11/12/16 at 08:30 Glucose (Glutose) 22.5 gm Q15M PRN PO DECREASED GLUCOSE; Start 11/12/16 at 08: 30 Dextrose (D50w Syringe) 25 ml Q15M PRN IV DECREASED GLUCOSE; Start 11/12/16 at 08:30 Dextrose (D50w Syringe) 50 ml Q15M PRN IV DECREASED GLUCOSE; Start 11/12/16 at 08:30 Glucagon (Glucagen) 1 mg Q15M PRN IM DECREASED GLUCOSE; Start 11/12/16 at 08:30 Glucose 15 gm 15 gm Q15M PRN BUCCAL DECREASED GLUCOSE; Start 11/12/16 at 08:30 Norepinephrine/ Dextrose (Levophed/D5W) 500 ml @ 1.875 mls/ hr TITRATE IV ; Start 11/12/16 at 10:00 Enoxaparin Sodium (Lovenox) 30 mg DAILY SC Last administered on 11/14/16t 09:03 ; Admin Dose 30 MG; Start 11/14/16 at 09:00 MILO CHARLES Nov 15, 2016 06:32
[2016-11-15 08:05] LABS: ADD SCAN DIFF NO
[2016-11-15 08:10] LABS: BASOPHIL # 0.1 10^3/ul (0.0-0.1); BASOPHILS % 0.3 % (0.0-2.0); EOSINOPHILS # 0.4 10^3/ul (0.0-0.5); EOSINOPHILS % 2.2 % (0.0-7.0); HEMATOCRIT 35.2 % (37.0-47.0); HEMOGLOBIN 11.7 g/dl (12.0-16.0); LYMPHOCYTES # 2.2 10^3/ul (0.8-2.9); LYMPHOCYTES % 12.1 % (15.0-51.0); MEAN CORPUSCULAR HEMOGLOBIN 30.5 pg (29.0-33.0); MEAN CORPUSCULAR HGB CONC 33.2 g/dl (32.0-37.0); MEAN CORPUSCULAR VOLUME 91.9 fl (82.0-101.0); MEAN PLATELET VOLUME 10.8 fl (7.4-10.4); MONOCYTE # 1.1 10^3/ul (0.3-0.9); MONOCYTES % 5.9 % (0.0-11.0); NEUTROPHIL # 14.1 10^3/ul (1.6-7.5); PLATELET COUNT 125 10^3/UL (140-415); RED BLOOD COUNT 3.83 10^6/ul (4.20-5.40); RED CELL DISTRIBUTION WIDTH 15.9 % (11.5-14.5); WHITE BLOOD COUNT 18.1 10^3/ul (4.8-10.8)
[2016-11-15 08:27] LABS: ALBUMIN 2.9 g/dl (3.3-4.9); ALBUMIN/GLOBULIN RATIO 0.9; BILIRUBIN,INDIRECT 0.4 mg/dl (0-1.1); BILIRUBIN,TOTAL 0.4 mg/dl (0.2-1.3); CALCIUM 8.9 mg/dl (8.4-10.2); CREATININE 1.72 mg/dl (0.44-1.00); MAGNESIUM 2.5 mg/dl (1.7-2.5); POTASSIUM 4.1 mmol/L (3.5-5.1); TOTAL PROTEIN 6.1 g/dl (6.1-8.1)
[2016-11-15] MEDS: ENOXAPARIN 30 MG/0.3 ML SYG SC SCH (09:00)
[2016-11-15] MEDS: MEROPENEM 500 MG/100 ML (PMX) 100 ML IVPB SCH (09:29)
[2016-11-15] MEDS: INSULIN ASPART [NOVOLOG] 3 ML PEN SC SCH ×3 (09:37→16:48)
--- NOTE | 2016-11-15 11:07 | PN ---
Date/Time of Note Date/Time of Note DATE: 11/15/16 TIME: 11:06 Assessment/Plan VTE Prophylaxis VTE Prophylaxis Intervention: other Lines/Catheters IV [facility] Type (from [facility] Central Line Central line still needed: Yes Urinary Cath still in place: Yes Reason Cath still needed: skin wounds contaminated by urine Assessment/Plan Chief Complaint/Hosp Course 1. Respiratory failure. Extubated. 2. Possible non-ST elevation myocardial infarction. The patient with a positive troponin. Will have cardiology assist with the patient. Will continue the patient in the ICU and do serial troponins to evaluate for possible myocardial infarction. 3. Acute renal failure. Will give IV fluid hydration, follow a chemistry panel , and give IV half normal saline because of hypernatremia. 4. Urosepsis. Will give IV antibiotics, including vancomycin and meropenem, and have infectious disease assist with care. 5. Osteomyelitis. The patient will likely need to be continued on doxycycline and ciprofloxacin, but will have Dr. Shen from infectious disease assist with antibiotic care. 6. Diabetes. Will keep the patient n.p.o., but use NovoLog sliding scale. Problems: Subjective 24 Hr Interval Summary Free Text/Dictation Patient resting comfortably, s/p extubation yesterday Exam/Review of Systems Vital Signs Vitals Vital Signs Date Time Temp Pulse Resp B/P Pulse Ox O2 Delivery O2 Flow Rate FiO2 11/15/16 10:00 85 18 146/65 99 Nasal Cannula 2.0 11/15/16 08:00 98.3 11/15/16 02:03 27 Intake and Output 11/14/16 11/14/16 11/15/16 15:00 23:00 07:00 Intake Total 1380.2 ml 715 ml 100 ml Output Total 590 ml 140 ml 650 ml Balance 790.2 ml 575 ml -550 ml Exam Constitutional: well developed Head: atraumatic, normocephalic Neck: supple Respiratory: diminished breath sounds Cardiovascular: regular rate and rhythm Gastrointestinal: non-tender, soft Extremities: normal pulses Results Result Diagram: 11/15/16 0750 11/15/16 0750 Results 24 hrs Laboratory Tests Test 11/14/16 11:51 11/14/16 17:30 11/14/16 21:46 11/15/16 03:52 Bedside Glucose 243 H 203 174 195 Test 11/15/16 07:50 11/15/16 09:32 White Blood Count 18.1 #H Red Blood Count 3.83 L Hemoglobin 11.7 L Hematocrit 35.2 L Mean Corpuscular Volume 91.9 Mean Corpuscular Hemoglobin 30.5 Mean Corpuscular Hemoglobin Concent 33.2 Red Cell Distribution Width 15.9 H Platelet Count 125 L Mean Platelet Volume 10.8 H Neutrophils % 78.0 H Lymphocytes % 12.1 L Monocytes % 5.9 Eosinophils % 2.2 Basophils % 0.3 Nucleated Red Blood Cells % 0.0 Neutrophils # 14.1 H Lymphocytes # 2.2 Monocytes # 1.1 H Eosinophils # 0.4 Basophils # 0.1 Nucleated Red Blood Cells # 0.0 Sodium Level 150 H Potassium Level 4.1 Chloride Level 121 H Carbon Dioxide Level 20 L Anion Gap 13 Blood Urea Nitrogen 67 H Creatinine 1.72 H Glucose Level 230 H Calcium Level 8.9 Magnesium Level 2.5 Total Bilirubin 0.4 Direct Bilirubin 0.00 Indirect Bilirubin 0.4 Aspartate Amino Transf (AST/SGOT) 101 H Alanine Aminotransferase (ALT/SGPT) 57 Alkaline Phosphatase 89 Total Protein 6.1 Albumin 2.9 L Globulin 3.20 Albumin/Globulin Ratio 0.90 Bedside Glucose 255 H Medications Medications Current Medications Sodium Chloride (1/2 NS) 1,000 ml @ 100 mls/hr Q10H IV Last administered on 00:10; Admin Dose 100 MLS/HR; Start 11/12/16 at 08:30 Miscellaneous Information 1 ea NOTE XX ; Start 11/12/16 at 08:30 Glucose (Glutose) 15 gm Q15M PRN PO DECREASED GLUCOSE; Start 11/12/16 at 08:30 Glucose (Glutose) 22.5 gm Q15M PRN PO DECREASED GLUCOSE; Start 11/12/16 at 08: 30 Dextrose (D50w Syringe) 25 ml Q15M PRN IV DECREASED GLUCOSE; Start 11/12/16 at 08:30 Dextrose (D50w Syringe) 50 ml Q15M PRN IV DECREASED GLUCOSE; Start 11/12/16 at 08:30 Glucagon (Glucagen) 1 mg Q15M PRN IM DECREASED GLUCOSE; Start 11/12/16 at 08:30 Glucose 15 gm 15 gm Q15M PRN BUCCAL DECREASED GLUCOSE; Start 11/12/16 at 08:30 Norepinephrine/ Dextrose (Levophed/D5W) 500 ml @ 1.875 mls/ hr TITRATE IV ; Start 11/12/16 at 10:00 Enoxaparin Sodium (Lovenox) 30 mg DAILY SC Last administered on 11/14/16t 09:03 ; Admin Dose 30 MG; Start 11/14/16 at 09:00 Collagenase 1 applic 1 applic DAILY TOP ; Start 11/16/16 at 09:00 Vancomycin HCl 1.25 gm/Sodium Chloride 250 ml @ 83.333 mls/ hr Q36H IVPB ; Start 11/15/16 at 23:00 Meropenem (Merrem 500 Mg/ 100 ml (Pmx)) 100 ml @ 200 mls/hr Q12 IVPB ; Start at 21:00 JERMAINE PATEL Nov 15, 2016 11:07
[2016-11-15] MEDS ORDERED: INSULIN GLARGINE [LANtus] 3 ML PEN SC ONE (11:30)
[2016-11-15] MEDS: DEXTROSE 5%-0.45% NACL 1,000 ML IV SCH (12:22)
[2016-11-15] MEDS ORDERED: Discontinue Glyburide, Glipizide, and/or Glimepiride prior to starting Insulin XX ONE (14:30)
[2016-11-15] MEDS ORDERED: HYPOGLYCEMIA PROTOCOL when Glucose is <70 mg/dL or symptomatic <90 mg/dL. XX ONE (14:30)
--- NOTE | 2016-11-15 15:12 | CONS ---
Date/Time of Note Date/Time of Note DATE: 11/15/16 TIME: 15:07 Assessment/Plan Assessment/Plan Additional Assessment/Plan 1) asp pneumonia continue with vanco/merrem to cover resistant organisms 11/13 - sputum cx ordered no change 11/15 - no new positive cultures 2) pyuria and possible UTI await maturation of urine cx 11/13 - urine cx is pending 11/15 - urine culture negative 3) L heal osteo s/p debridement about a week ago merrem will cover the klebsiella that was there before repeat wound cx 11/13 - wound cx is pending 11/14 - wound culture with only diphtheroids and CIGARETTE VENDOR, neither is likely to be a pathogen. 4) PVD no reversible stenosis found to LLE 5) GPR in blood cx 11/13 - this likely is a contaminant 11/14 - repeat blood cultures are NTD 6) Acute respiratory failure, hypoxic Improving, was extubated Consultation Date/Type/Reason Admit Date/Time Nov 12, 2016 at 05:22 Initial Consult Date 11/12/16 Type of Consultation: Infectious Diseases 24 HR Interval Summary Free Text/Dictation Remains extubated, planning on transfer to telemetry. Off pressors. No acute events overnight. No new positive cultures. Exam/Review of Systems Vital Signs Vitals Vital Signs Date Time Temp Pulse Resp B/P Pulse Ox O2 Delivery O2 Flow Rate FiO2 11/15/16 15:00 79 10 160/67 98 Nasal Cannula 2.0 11/15/16 12:00 98.3 11/15/16 02:03 27 Intake and Output 11/14/16 11/14/16 11/15/16 15:00 23:00 07:00 Intake Total 1380.2 ml 715 ml 100 ml Output Total 590 ml 140 ml 650 ml Balance 790.2 ml 575 ml -550 ml Exam Constitutional: non-verbal, but extubated, arousable during exam Respiratory: clear to auscultation Cardiovascular: regular rate and rhythm Gastrointestinal: non-tender, soft Extremities: other (L heal is bandaged, some swelling of L hand) Lines: right IJ triple is clear Results Result Diagram: 11/15/16 0750 11/15/16 0750 Results 24 hrs Laboratory Tests Test 11/14/16 17:30 11/14/16 21:46 11/15/16 03:52 11/15/16 07:50 Bedside Glucose 203 174 195 White Blood Count 18.1 #H Red Blood Count 3.83 L Hemoglobin 11.7 L Hematocrit 35.2 L Mean Corpuscular Volume 91.9 Mean Corpuscular Hemoglobin 30.5 Mean Corpuscular Hemoglobin Concent 33.2 Red Cell Distribution Width 15.9 H Platelet Count 125 L Mean Platelet Volume 10.8 H Neutrophils % 78.0 H Lymphocytes % 12.1 L Monocytes % 5.9 Eosinophils % 2.2 Basophils % 0.3 Nucleated Red Blood Cells % 0.0 Neutrophils # 14.1 H Lymphocytes # 2.2 Monocytes # 1.1 H Eosinophils # 0.4 Basophils # 0.1 Nucleated Red Blood Cells # 0.0 Sodium Level 150 H Potassium Level 4.1 Chloride Level 121 H Carbon Dioxide Level 20 L Anion Gap 13 Blood Urea Nitrogen 67 H Creatinine 1.72 H Glucose Level 230 H Calcium Level 8.9 Magnesium Level 2.5 Total Bilirubin 0.4 Direct Bilirubin 0.00 Indirect Bilirubin 0.4 Aspartate Amino Transf (AST/SGOT) 101 H Alanine Aminotransferase (ALT/SGPT) 57 Alkaline Phosphatase 89 Total Protein 6.1 Albumin 2.9 L Globulin 3.20 Albumin/Globulin Ratio 0.90 Test 11/15/16 09:32 11/15/16 12:21 Bedside Glucose 255 H 258 H Medications Medications Current Medications Miscellaneous Information 1 ea NOTE XX ; Start 11/12/16 at 08:30 Glucose (Glutose) 15 gm Q15M PRN PO DECREASED GLUCOSE; Start 11/12/16 at 08:30 Glucose (Glutose) 22.5 gm Q15M PRN PO DECREASED GLUCOSE; Start 11/12/16 at 08: 30 Dextrose (D50w Syringe) 25 ml Q15M PRN IV DECREASED GLUCOSE; Start 11/12/16 at 08:30 Dextrose (D50w Syringe) 50 ml Q15M PRN IV DECREASED GLUCOSE; Start 11/12/16 at 08:30 Glucagon (Glucagen) 1 mg Q15M PRN IM DECREASED GLUCOSE; Start 11/12/16 at 08:30 Glucose 15 gm 15 gm Q15M PRN BUCCAL DECREASED GLUCOSE; Start 11/12/16 at 08:30 Norepinephrine/ Dextrose (Levophed/D5W) 500 ml @ 1.875 mls/ hr TITRATE IV ; Start 11/12/16 at 10:00 Enoxaparin Sodium (Lovenox) 30 mg DAILY SC Last administered on 11/14/16 09:03 ; Admin Dose 30 MG; Start 11/14/16 at 09:00 Collagenase 1 applic 1 applic DAILY TOP ; Start 11/16/16 at 09:00 Vancomycin HCl 1.25 gm/Sodium Chloride 250 ml @ 83.333 mls/ hr Q36H IVPB ; Start 11/15/16 at 23:00 Meropenem 100 ml @ 200 mls/hr Q12 IVPB ; Start 11/15/16 at 21:00 Dextrose/Sodium Chloride (D5-1/2ns) 1,000 ml @ 75 mls/hr [id number] IV Last administered on 11/15/16 12:22; Admin Dose 75 MLS/HR; Start 11/15/16 at 11:30 Insulin Glargine (Lantus) 5 unit DAILY@20 SC ; Start 11/15/16 at 20:00 Insulin Aspart (Novolog Insulin Pen) NOVOLOG *MILD* ALGORI... Q4 SC ; Start at 17:00 ALBERTO LEMON Nov 15, 2016 15:12
[2016-11-15] MEDS ORDERED: ONDANSETRON 4 MG INJ IV PRN (17:00)
[2016-11-15] MEDS ORDERED: morphine 2 MG INJ IV PRN (17:00)
[2016-11-15] MEDS ORDERED: PENDING SANTYL ORDER FOR WOUND CARE XX PRN (18:30)
[2016-11-15] MEDS ORDERED: HYDROmorphONE 1 MG/ML SYG IV PRN (20:30)
[2016-11-16] VITALS (10 sets, daily range): BP systolic 114–198; BP diastolic 52–85; PULSE 72–86; RESP 16–20
[2016-11-16] MEDS: VANCOMYCIN 1.25 GM in SOD CHLORIDE 0.9% 250 ML IVPB SCH (00:55)
[2016-11-16] MEDS: MEROPENEM 500 MG/100 ML (PMX) 100 ML IVPB SCH ×3 (00:55→20:57)
[2016-11-16] MEDS: INSULIN GLARGINE [LANtus] 3 ML PEN SC SCH ×2 (00:56→20:50)
[2016-11-16] MEDS: INSULIN ASPART [NOVOLOG] 3 ML PEN SC SCH ×7 (00:56→20:49)
[2016-11-16] MEDS: DEXTROSE 5%-0.45% NACL 1,000 ML IV SCH ×2 (00:57→14:10)
[2016-11-16] MEDS: LEVALBUTEROL (NEB) 0.63 MG/3 ML AMP HHN SCH ×4 (02:41→21:03)
[2016-11-16] MEDS: IPRATROPIUM (NEB) 0.5 MG/2.5 ML AMP HHN SCH ×4 (02:41→21:02)
--- NOTE | 2016-11-16 07:31 | CONS ---
Date/Time of Note Date/Time of Note DATE: 11/16/16 TIME: 07:27 Assessment/Plan Assessment/Plan Chief Complaint/Hosp Course 1) asp pneumonia continue with vanco/merrem to cover resistant organisms 11/13 - sputum cx ordered no change 11/16 - sputum cx never sent off continue with vanco/merrem for 8-10 day course 2) pyuria and possible UTI await maturation of urine cx 11/13 - urine cx is pending 11/16 - urine cx was negative for bacteria, just yeast 3) L heal osteo s/p debridement about a week ago merrem will cover the kleb that was there before repeat wound cx 11/13 - wound cx is pending 11/13 - wound cx did not grow any aggressive bacteria 4) PVD no reversible stenosis found to LLE 5) GPR in blood cx (bacillus species) 11/13 - this likely is a contaminant repeat blood cx this a.m. 11/16 - blood cx grew bacillus which is likely a contaminant Problems: Consultation Date/Type/Reason Admit Date/Time Nov 12, 2016 at 05:22 Initial Consult Date 11/12/16 Type of Consultation: Infectious Diseases 24 HR Interval Summary Free Text/Dictation spoke to nurse and daughter has a cough, but resting comfortable got dilaudid for pain all over her body no V, D Exam/Review of Systems Vital Signs Vitals Vital Signs Date Time Temp Pulse Resp B/P Pulse Ox O2 Delivery O2 Flow Rate FiO2 11/16/16 03:54 98.2 83 20 136/78 96 11/16/16 02:45 2.0 11/16/16 02:42 Nasal Cannula 11/15/16 02:03 27 Intake and Output 11/15/16 11/15/16 11/16/16 15:00 23:00 07:00 Intake Total 335 ml 290 ml Output Total 951 ml 200 ml Balance -616 ml 90 ml Exam Constitutional: non-verbal Respiratory: clear to auscultation Cardiovascular: regular rate and rhythm Gastrointestinal: non-tender, soft Extremities: other (L heal is bandaged) Results Result Diagram: 11/15/16 0750 11/15/16 0750 Results 24 hrs Laboratory Tests Test 11/15/16 07:50 11/15/16 09:32 11/15/16 12:21 11/15/16 16:41 White Blood Count 18.1 #H Red Blood Count 3.83 L Hemoglobin 11.7 L Hematocrit 35.2 L Mean Corpuscular Volume 91.9 Mean Corpuscular Hemoglobin 30.5 Mean Corpuscular Hemoglobin Concent 33.2 Red Cell Distribution Width 15.9 H Platelet Count 125 L Mean Platelet Volume 10.8 H Neutrophils % 78.0 H Lymphocytes % 12.1 L Monocytes % 5.9 Eosinophils % 2.2 Basophils % 0.3 Nucleated Red Blood Cells % 0.0 Neutrophils # 14.1 H Lymphocytes # 2.2 Monocytes # 1.1 H Eosinophils # 0.4 Basophils # 0.1 Nucleated Red Blood Cells # 0.0 Sodium Level 150 H Potassium Level 4.1 Chloride Level 121 H Carbon Dioxide Level 20 L Anion Gap 13 Blood Urea Nitrogen 67 H Creatinine 1.72 H Glucose Level 230 H Calcium Level 8.9 Magnesium Level 2.5 Total Bilirubin 0.4 Direct Bilirubin 0.00 Indirect Bilirubin 0.4 Aspartate Amino Transf (AST/SGOT) 101 H Alanine Aminotransferase (ALT/SGPT) 57 Alkaline Phosphatase 89 Total Protein 6.1 Albumin 2.9 L Globulin 3.20 Albumin/Globulin Ratio 0.90 Bedside Glucose 255 H 258 H 245 H Test 11/15/16 19:49 11/16/16 06:28 Bedside Glucose 224 H 233 H Medications Medications Current Medications Miscellaneous Information 1 ea NOTE XX ; Start 11/12/16 at 08:30 Glucose (Glutose) 15 gm Q15M PRN PO DECREASED GLUCOSE; Start 11/12/16 at 08:30 Glucose (Glutose) 22.5 gm Q15M PRN PO DECREASED GLUCOSE; Start 11/12/16 at 08: 30 Dextrose (D50w Syringe) 25 ml Q15M PRN IV DECREASED GLUCOSE; Start 11/12/16 at 08:30 Dextrose (D50w Syringe) 50 ml Q15M PRN IV DECREASED GLUCOSE; Start 11/12/16 at 08:30 Glucagon (Glucagen) 1 mg Q15M PRN IM DECREASED GLUCOSE; Start 11/12/16 at 08:30 Glucose (Glutose) 15 gm Q15M PRN BUCCAL DECREASED GLUCOSE; Start 11/12/16 at 08 :30 Enoxaparin Sodium (Lovenox) 30 mg DAILY SC Last administered on 11/14/16t 09:03 ; Admin Dose 30 MG; Start 11/14/16 at 09:00 Collagenase 1 applic 1 applic DAILY TOP ; Start 11/16/16 at 09:00 Vancomycin HCl 1.25 gm/Sodium Chloride 250 ml @ 83.333 mls/ hr Q36H IVPB Last administered on 11/16/16 00:55; Admin Dose 83.333 MLS/HR; Start 11/15/16 at 23: 00 Meropenem 100 ml @ 200 mls/hr Q12 IVPB Last administered on 11/16/16 00:55; Admin Dose 200 MLS/HR; Start 11/15/16 at 21:00 Dextrose/Sodium Chloride (D5-1/2ns) 1,000 ml @ 75 mls/hr [id number] IV Last administered on 11/16/16 00:57; Admin Dose 75 MLS/HR; Start 11/15/16 at 11:30 Insulin Glargine (Lantus) 5 unit DAILY@20 SC Last administered on 11/16/16 00: 56; Admin Dose 5 UNIT; Start 11/15/16 at 20:00 Insulin Aspart (Novolog Insulin Pen) NOVOLOG *MILD* ALGORI... Q4 SC Last administered on 11/16/16 06:30; Admin Dose 3 UNIT; Start 11/15/16 at 17:00 Ondansetron HCl (Zofran Inj) 4 mg Q4H PRN IV NAUSEA AND/OR VOMITING; Start at 17:00 Miscellaneous Information (Pending [facility] Order For Wound Care) This patient jean baptiste... PRN PRN XX WOUND CARE; Start 11/15/16 at 18:30 Hydralazine HCl (Apresoline) 10 mg Q4H PRN IV ELEVATED BLOOD PRESSURE; Start at 20:30 Hydromorphone HCl (Dilaudid) 1 mg Q4H PRN IV PAIN Last administered on 20:50; Admin Dose 1 MG; Start 11/15/16 at 20:30 ANTHONY WOODARD MD Nov 16, 2016 07:31
--- NOTE | 2016-11-16 08:28 | PN ---
Date/Time of Note Date/Time of Note DATE: 11/16/16 TIME: 08:28 Assessment/Plan VTE Prophylaxis VTE Prophylaxis Intervention: SCD's Lines/Catheters IV Catheter Type (from Nrsg): Central Line Central line still needed: No Urinary Cath still in place: Yes Reason Cath still needed: urinary retention Assessment/Plan Chief Complaint/Hosp Course The patient is a 81-year-old female, presenting to the ER because of altered level of consciousness for the last 2 days, decreased appetite, less responsive. She was discharged a week ago and was admitted for left ankle osteomyelitis. She has not been taking her antibiotic for the last 2 days due to altered level of consciousness. She is unable to provide any history, the history is obtained from the daughters who were at the bedside. She has been seen by the pulmonary and ID services. 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 > no acei due to mayi Subjective 24 Hr Interval Summary Free Text/Dictation The patient with no change overnight Exam/Review of Systems Vital Signs Vitals Vital Signs Date Time Temp Pulse Resp B/P Pulse Ox O2 Delivery O2 Flow Rate FiO2 11/16/16 08:07 74 11/16/16 07:58 99.5 17 138/60 94 11/16/16 02:45 2.0 11/16/16 02:42 Nasal Cannula 11/15/16 02:03 27 Intake and Output 11/15/16 11/15/16 11/16/16 15:00 23:00 07:00 Intake Total 335 ml 290 ml Output Total 951 ml 200 ml Balance -616 ml 90 ml Results Result Diagram: 11/15/16 0750 11/15/16 0750 Results 24 hrs Laboratory Tests Test 11/15/16 09:32 11/15/16 12:21 11/15/16 16:41 11/15/16 19:49 Bedside Glucose 255 H 258 H 245 H 224 H Test 11/16/16 06:28 Bedside Glucose 233 H Medications Medications Current Medications Miscellaneous Information 1 ea NOTE XX ; Start 11/12/16 at 08:30 Glucose (Glutose) 15 gm Q15M PRN PO DECREASED GLUCOSE; Start 11/12/16 at 08:30 Glucose (Glutose) 22.5 gm Q15M PRN PO DECREASED GLUCOSE; Start 11/12/16 at 08: 30 Dextrose (D50w Syringe) 25 ml Q15M PRN IV DECREASED GLUCOSE; Start 11/12/16 at 08:30 Dextrose (D50w Syringe) 50 ml Q15M PRN IV DECREASED GLUCOSE; Start 11/12/16 at 08:30 Glucagon (Glucagen) 1 mg Q15M PRN IM DECREASED GLUCOSE; Start 11/12/16 at 08:30 Glucose (Glutose) 15 gm Q15M PRN BUCCAL DECREASED GLUCOSE; Start 11/12/16 at 08 :30 Enoxaparin Sodium (Lovenox) 30 mg DAILY SC Last administered on 11/14/16 09:03 ; Admin Dose 30 MG; Start 11/14/16 at 09:00 Collagenase 1 applic 1 applic DAILY TOP ; Start 11/16/16 at 09:00 Vancomycin HCl 1.25 gm/Sodium Chloride 250 ml @ 83.333 mls/ hr Q36H IVPB Last administered on 11/16/16 00:55; Admin Dose 83.333 MLS/HR; Start 11/15/16 at 23: 00 Meropenem 100 ml @ 200 mls/hr Q12 IVPB Last administered on 11/16/16 00:55; Admin Dose 200 MLS/HR; Start 11/15/16 at 21:00 Dextrose/Sodium Chloride (D5-1/2ns) 1,000 ml @ 75 mls/hr [id number] IV Last administered on 11/16/16 00:57; Admin Dose 75 MLS/HR; Start 11/15/16 at 11:30 Insulin Glargine (Lantus) 5 unit DAILY@20 SC Last administered on 11/16/16 00: 56; Admin Dose 5 UNIT; Start 11/15/16 at 20:00 Insulin Aspart (Novolog Insulin Pen) NOVOLOG *MILD* ALGORI... Q4 SC Last administered on 11/16/16 06:30; Admin Dose 3 UNIT; Start 11/15/16 at 17:00 Ondansetron HCl (Zofran Inj) 4 mg Q4H PRN IV NAUSEA AND/OR VOMITING; Start at 17:00 [facility] This patient jean baptiste... PRN PRN XX WOUND CARE; Start 11/15/16 at 18:30 Hydralazine HCl (Apresoline) 10 mg Q4H PRN IV ELEVATED BLOOD PRESSURE; Start at 20:30 Hydromorphone HCl (Dilaudid) 1 mg Q4H PRN IV PAIN Last administered on 20:50; Admin Dose 1 MG; Start 11/15/16 at 20:30 FRED RUIZ MD Nov 16, 2016 08:28
[2016-11-16] MEDS: ENOXAPARIN 30 MG/0.3 ML SYG SC SCH (09:01)
[2016-11-16 10:57] LABS: PARTIAL THROMBOPLASTIN TIME 34.8 Sec (25.0-35.0)
[2016-11-16 11:00] LABS: INR 1.34; PROTIME 16.7 Sec (12.2-14.2); PT RATIO 1.3
[2016-11-16] MEDS ORDERED: HYDROmorphONE 1 MG/ML SYG IV PRN (14:00)
--- NOTE | 2016-11-16 14:02 | CONS ---
Date/Time of Note Date/Time of Note DATE: 11/16/16 TIME: 13:59 Assessment/Plan Assessment/Plan Additional Assessment/Plan Assessment recommendations; 1. Patient admitted with severe dehydration and pre-renal azotemia with sepsis from UTI. With marked overall clinical improvement. 4. Status post respiratory failure. 3. Severe hypernatremia with interval improvement as well. 4. Dementia. 5. Peripheral vascular disease. 6. Sacral decubitus ulcer. Continue current treatment. Patient responding well to current treatment regimen. Consultation Date/Type/Reason Admit Date/Time Nov 12, 2016 at 05:22 Initial Consult Date 11/12/16 Type of Consultation: Pulmonary 24 HR Interval Summary Free Text/Dictation Patient condition is stable. Has been transferred out of ICU to medical floor. Was extubated successfully yesterday morning. Patient remains awake. Has remained hemodynamically stable. Exam/Review of Systems Vital Signs Vitals Vital Signs Date Time Temp Pulse Resp B/P Pulse Ox O2 Delivery O2 Flow Rate FiO2 11/16/16 13:53 70 20 98 Nasal Cannula 2.0 28 11/16/16 11:41 99.7 198/85 Intake and Output 11/15/16 11/15/16 11/16/16 15:00 23:00 07:00 Intake Total 335 ml 290 ml Output Total 951 ml 200 ml Balance -616 ml 90 ml Exam HEENT exam is; supple neck, no JVD. No lymphadenopathy. Midline trachea. No thyromegaly. Patient is a right corneal opacity. There is a left intraocular lens implant. Multiple carious teeth. Chest examined; diminished but clear breath sound. S1-S2 audible, no murmurs. Regular rhythm. Abdomen examination; soft, scaphoid. Nontender. No organomegaly. Bowel sounds audible. Extremity exam is; patient is a well-healed right below-knee amputation stump. There is an ulcer involving the left heel. Back exam; stage III decubitus ulcer. WATERWAY TRAFFIC CHECKER exam is; patient is awake and somewhat responsive. Results Result Diagram: 11/15/16 0750 11/15/16 0750 Results 24 hrs Laboratory Tests Test 11/15/16 16:41 11/15/16 19:49 11/16/16 06:28 11/16/16 08:57 Bedside Glucose 245 H 224 H 233 H 140 Test 11/16/16 09:29 Prothrombin Time 16.7 H Prothrombin Time Ratio 1.3 INR International Normalized Ratio 1.34 Activated Partial Thromboplast Time 34.8 Medications Medications Current Medications Miscellaneous Information 1 ea NOTE XX ; Start 11/12/16 at 08:30 Glucose (Glutose) 15 gm Q15M PRN PO DECREASED GLUCOSE; Start 11/12/16 at 08:30 Glucose (Glutose) 22.5 gm Q15M PRN PO DECREASED GLUCOSE; Start 11/12/16 at 08: 30 Dextrose (D50w Syringe) 25 ml Q15M PRN IV DECREASED GLUCOSE; Start 11/12/16 at 08:30 Dextrose (D50w Syringe) 50 ml Q15M PRN IV DECREASED GLUCOSE; Start 11/12/16 at 08:30 Glucagon (Glucagen) 1 mg Q15M PRN IM DECREASED GLUCOSE; Start 11/12/16 at 08:30 Glucose (Glutose) 15 gm Q15M PRN BUCCAL DECREASED GLUCOSE; Start 11/12/16 at 08 :30 Enoxaparin Sodium (Lovenox) 30 mg DAILY SC Last administered on 11/16/16 09:01 ; Admin Dose 30 MG; Start 11/14/16 at 09:00 Collagenase 1 applic 1 applic DAILY TOP ; Start 11/16/16 at 09:00 Vancomycin HCl 1.25 gm/Sodium Chloride 250 ml @ 83.333 mls/ hr Q36H IVPB Last administered on 11/16/16 00:55; Admin Dose 83.333 MLS/HR; Start 11/15/16 at 23: 00 Meropenem 100 ml @ 200 mls/hr Q12 IVPB Last administered on 11/16/16 09:30; Admin Dose 200 MLS/HR; Start 11/15/16 at 21:00 Dextrose/Sodium Chloride (D5-1/2ns) 1,000 ml @ 75 mls/hr [id number] IV Last administered on 11/16/16 00:57; Admin Dose 75 MLS/HR; Start 11/15/16 at 11:30 Insulin Glargine (Lantus) 5 unit DAILY@20 SC Last administered on 11/16/16 00: 56; Admin Dose 5 UNIT; Start 11/15/16 at 20:00 Insulin Aspart (Novolog Insulin Pen) NOVOLOG *MILD* ALGORI... Q4 SC Last administered on 11/16/16t 06:30; Admin Dose 3 UNIT; Start 11/15/16 at 17:00 Ondansetron HCl (Zofran Inj) 4 mg Q4H PRN IV NAUSEA AND/OR VOMITING; Start at 17:00 [facility]isc[facility] This patient jean baptiste... PRN PRN XX WOUND CARE; Start 11/15/16 at 18:30 Hydralazine HCl (Apresoline) 10 mg Q4H PRN IV ELEVATED BLOOD PRESSURE; Start at 20:30 Amlodipine Besylate (Norvasc) 5 mg DAILY PO ; Start 11/17/16 at 09:00 Insulin Human NPH (Humulin N) 20 unit DAILY@08 SC ; Start 11/17/16 at 08:00 Miscellaneous Information (*Rx Drug Level Order Reminder*) 1 ONCE ONCE XX ; Start 11/17/16 at 10:00; Stop 11/17/16 at 10:01 Acetaminophen (Tylenol Tab) 650 mg Q6H PRN PO PAIN AND OR ELEVATED TEMP; Start 11/16/16 at 14:00; Status UNV Methadone HCl (Methadone) 10 mg Q8 PRN PO pain; Start 11/16/16 at 14:00; Status UNV MILO CHARLES Nov 16, 2016 14:02
[2016-11-16] MEDS: COLLAGENASE 30 GM TUBE TOP SCH (15:00)
--- NOTE | 2016-11-16 19:53 | PN ---
DATE: 11/16/2016 SUBJECTIVE: The patient is knocked out, asleep after being given Dilaudid, out of the ICU. Urine c ulture shows yeast. Blood culture shows coag-negative staph, corynebacterium, bacillus species. OBJECTIVE: VITAL SIGNS: Temperature 99.7, pulse 85, respirations at 16, blood pressure is 138 to 198 over 60 t o 85. Pulse oximetry is 98 on 2 L nasal cannula. PULMONARY: No wheeze or rhonchi or crackles. CARDIOVASCULAR: Regular rate, rhythm. ABDOMEN: Nontender, nondistended. LABORATORY TESTS: Sodium 150, potassium 4.1, BUN 67, creatinine 1.72. Accu-Cheks are 174 to 255. ASSESSMENT AND PLAN: 1. Aspiration pneumonia. On vancomycin and Merrem. ID following, Pulmonary following. 2. Left heel osteomyelitis. ID giving antibiotics for this. 3. Sacral decubiti. Wound care, nursing to treat. 4. Pyuria with normal culture of the urine with the exception of yeast. 5. Sedation. The patient when given morphine normally gets knocked out for the day. The patient w as given Dilaudid. The patient should be now out for the rest of today. 6. Diabetes. Accu-Cheks have been elevated. The patient is taking p.o. intake when she is awake. NPH has been restarted. The patient normally is on a combination of insulin at home. Will follow and increase the NPH as necessary. Dictated By: RIDGE ABDALLA/CLIVE Conf#: [id number] DID#: [id number]
[2016-11-17] VITALS (13 sets, daily range): BP systolic 105–153; BP diastolic 50–96; PULSE 72–85; RESP 16–20
[2016-11-17] MEDS ORDERED: KETOROLAC 60 MG INJ IM STA (00:19)
[2016-11-17] MEDS ORDERED: KETOROLAC 30 MG INJ IV SCH (00:30)
[2016-11-17] MEDS ORDERED: PANTOPRAZOLE 40 MG INJ IV ONE (00:30)
[2016-11-17] MEDS: INSULIN ASPART [NOVOLOG] 3 ML PEN SC SCH ×6 (01:47→20:29)
[2016-11-17] MEDS: IPRATROPIUM (NEB) 0.5 MG/2.5 ML AMP HHN SCH ×4 (02:02→20:49)
[2016-11-17] MEDS: LEVALBUTEROL (NEB) 0.63 MG/3 ML AMP HHN SCH ×4 (02:03→20:49)
[2016-11-17] MEDS: DEXTROSE 5%-0.45% NACL 1,000 ML IV SCH ×3 (03:30→16:50)
[2016-11-17] MEDS: PANTOPRAZOLE 40 MG INJ IV SCH (05:12)
[2016-11-17 06:51] LABS: ADD SCAN DIFF NO
[2016-11-17 06:58] LABS: BASOPHIL # 0.1 10^3/ul (0.0-0.1); BASOPHILS % 0.6 % (0.0-2.0); EOSINOPHILS # 0.8 10^3/ul (0.0-0.5); EOSINOPHILS % 5.6 % (0.0-7.0); HEMATOCRIT 34.8 % (37.0-47.0); HEMOGLOBIN 11.2 g/dl (12.0-16.0); LYMPHOCYTES # 2.5 10^3/ul (0.8-2.9); LYMPHOCYTES % 17.4 % (15.0-51.0); MEAN CORPUSCULAR HEMOGLOBIN 29.6 pg (29.0-33.0); MEAN CORPUSCULAR HGB CONC 32.2 g/dl (32.0-37.0); MEAN CORPUSCULAR VOLUME 92.1 fl (82.0-101.0); MEAN PLATELET VOLUME 11.3 fl (7.4-10.4); MONOCYTE # 1.3 10^3/ul (0.3-0.9); NEUTROPHIL # 9.2 10^3/ul (1.6-7.5); NEUTROPHILS % 65.3 % (39.0-77.0); PLATELET COUNT 152 10^3/UL (140-415); RED BLOOD COUNT 3.78 10^6/ul (4.20-5.40); WHITE BLOOD COUNT 14.1 10^3/ul (4.8-10.8)
[2016-11-17 07:40] LABS: CALCIUM 9.1 mg/dl (8.4-10.2); CREATININE 1.33 mg/dl (0.44-1.00); POTASSIUM 3.4 mmol/L (3.5-5.1)
[2016-11-17] MEDS: MEROPENEM 500 MG/100 ML (PMX) 100 ML IVPB SCH ×2 (08:21→20:31)
[2016-11-17] MEDS: ENOXAPARIN 30 MG/0.3 ML SYG SC SCH (08:38)
[2016-11-17] MEDS: NPH, HUMAN INSULIN ISOPHANE 3ML VIAL SC SCH (08:39)
[2016-11-17] MEDS: COLLAGENASE 30 GM TUBE TOP SCH ×2 (08:41→10:36)
[2016-11-17] MEDS: AMLODIPINE 5 MG TAB PO SCH (08:41)
[2016-11-17] MEDS: VANCOMYCIN 1.25 GM in SOD CHLORIDE 0.9% 250 ML IVPB SCH (11:59)
--- NOTE | 2016-11-17 14:07 | CONS ---
Date/Time of Note Date/Time of Note DATE: 11/17/16 TIME: 14:05 Assessment/Plan Assessment/Plan Additional Assessment/Plan Assessment recommendations; 1. Patient admitted with severe UTI and sepsis for respiratory failure no successfully extubated and transferred to the medical floor. 2. Acute renal failure with marked hypernatremia and prerenal azotemia with continued interval improvement. 3. Peripheral vascular disease. 4. Sacral and left heel decubitus ulcers. Continue current treatment. Consultation Date/Type/Reason Admit Date/Time Nov 12, 2016 at 05:22 Initial Consult Date 11/12/16 Type of Consultation: Pulmonary 24 HR Interval Summary Free Text/Dictation Patient condition is stable. Remains awake and alert. Able to talk some more. Has remained hemodynamically stable. General exam; elderly woman, awake alert currently in no distress. Exam/Review of Systems Vital Signs Vitals Vital Signs Date Time Temp Pulse Resp B/P Pulse Ox O2 Delivery O2 Flow Rate FiO2 11/17/16 13:55 76 18 90 Nasal Cannula 2.0 11/17/16 11:30 98.2 121/51 11/17/16 02:08 28 Intake and Output 11/16/16 11/16/16 11/17/16 14:59 22:59 06:59 Intake Total 900 ml 900 ml Output Total 1600 ml 2100 ml 2500 ml Balance -1600 ml -1200 ml -1600 ml Exam HEENT exam is; supple neck, no JVD. No lymphadenopathy. Midline trachea. No thyromegaly. Patient multiple carious teeth. Has a right corneal opacity. There is a left intraocular lens implant. Chest examination; diminished but clear breath sound. S1-S2 audible, no murmurs. Regular rhythm. Abdomen examination; soft, nondistended. No organomegaly. Bowel sounds audible. Extremity exam; no peripheral edema. 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 There is a dressing applied over the left foot. LABEL MAKER exam; no focal motor deficit. Results Result Diagram: 11/17/16 0543 11/17/16 0543 Results 24 hrs Laboratory Tests Test 11/16/16 15:18 11/16/16 18:24 11/16/16 20:31 11/17/16 00:47 Bedside Glucose 215 197 215 225 H Test 11/17/16 05:11 11/17/16 05:43 11/17/16 08:17 11/17/16 10:00 Bedside Glucose 191 174 White Blood Count 14.1 #H Red Blood Count 3.78 L Hemoglobin 11.2 L Hematocrit 34.8 L Mean Corpuscular Volume 92.1 Mean Corpuscular Hemoglobin 29.6 Mean Corpuscular Hemoglobin Concent 32.2 Red Cell Distribution Width 16.0 H Platelet Count 152 # Mean Platelet Volume 11.3 H Neutrophils % 65.3 Lymphocytes % 17.4 Monocytes % 9.0 Eosinophils % 5.6 Basophils % 0.6 Nucleated Red Blood Cells % 0.0 Neutrophils # 9.2 H Lymphocytes # 2.5 Monocytes # 1.3 H Eosinophils # 0.8 H Basophils # 0.1 Nucleated Red Blood Cells # 0.0 Sodium Level 154 H Potassium Level 3.4 L Chloride Level 123 H Carbon Dioxide Level 24 Anion Gap 10 Blood Urea Nitrogen 37 #H Creatinine 1.33 H Glucose Level 200 Calcium Level 9.1 Vancomycin Level Trough 16.8 Test 11/17/16 13:23 Bedside Glucose 221 H Medications Medications Current Medications Miscellaneous Information 1 ea NOTE XX ; Start 11/12/16 at 08:30 Glucose (Glutose) 15 gm Q15M PRN PO DECREASED GLUCOSE; Start 11/12/16 at 08:30 Glucose (Glutose) 22.5 gm Q15M PRN PO DECREASED GLUCOSE; Start 11/12/16 at 08: 30 Dextrose (D50w Syringe) 25 ml Q15M PRN IV DECREASED GLUCOSE; Start 11/12/16 at 08:30 Dextrose (D50w Syringe) 50 ml Q15M PRN IV DECREASED GLUCOSE; Start 11/12/16 at 08:30 Glucagon (Glucagen) 1 mg Q15M PRN IM DECREASED GLUCOSE; Start 11/12/16 at 08:30 Glucose (Glutose) 15 gm Q15M PRN BUCCAL DECREASED GLUCOSE; Start 11/12/16 at 08 :30 Enoxaparin Sodium (Lovenox) 30 mg DAILY SC Last administered on 11/17/16 08:38 ; Admin Dose 30 MG; Start 11/14/16 at 09:00 Collagenase 1 applic 1 applic DAILY TOP Last administered on 11/17/16 10:36; Admin Dose 1 APPLIC; Start 11/16/16 at 09:00 Meropenem 100 ml @ 200 mls/hr Q12 IVPB Last administered on 11/17/16 08:21; Admin Dose 200 MLS/HR; Start 11/15/16 at 21:00 Dextrose/Sodium Chloride (D5-1/2ns) 1,000 ml @ 75 mls/hr [id number] IV Last administered on 11/17/16 12:01; Admin Dose 75 MLS/HR; Start 11/15/16 at 11:30 Insulin Glargine (Lantus) 5 unit DAILY@20 SC Last administered on 11/16/16 20: 50; Admin Dose 5 UNIT; Start 11/15/16 at 20:00 Insulin Aspart (Novolog Insulin Pen) NOVOLOG *MILD* ALGORI... Q4 SC Last administered on 11/17/16 13:40; Admin Dose 3 UNIT; Start 11/15/16 at 17:00 Ondansetron HCl (Zofran Inj) 4 mg Q4H PRN IV NAUSEA AND/OR VOMITING; Start at 17:00 Miscellaneous Information (Pending [facility] Order For Wound Care) This patient jean baptiste... PRN PRN XX WOUND CARE; Start 11/15/16 at 18:30 Hydralazine HCl (Apresoline) 10 mg Q4H PRN IV ELEVATED BLOOD PRESSURE; Start at 20:30 Amlodipine Besylate (Norvasc) 5 mg DAILY PO ; Start 11/17/16 at 09:00 Insulin Human NPH (Humulin N) 20 unit DAILY@08 SC Last administered on 08:39; Admin Dose 20 UNIT; Start 11/17/16 at 08:00 Acetaminophen (Tylenol Tab) 650 mg Q6H PRN PO PAIN AND OR ELEVATED TEMP; Start 11/16/16 at 14:00 Methadone HCl (Methadone) 10 mg Q8 PRN PO pain; Start 11/16/16 at 14:00; Status Future Hold Pantoprazole 40 mg 40 mg DAILY@06 IV Last administered on 11/17/16 05:12; Admin Dose 40 MG; Start 11/17/16 at 06:00 Vancomycin HCl (Vancocin) 250 ml @ 125 mls/hr Q36H IVPB ; Start 11/19/16 at 00: 00 MILO CHARLES 27, 2017 14:07
--- NOTE | 2016-11-17 15:21 | CONS ---
Date/Time of Note Date/Time of Note DATE: 11/17/16 TIME: 15:18 Assessment/Plan Assessment/Plan Additional Assessment/Plan Sepsis Respiratory failure status post extubation Peripheral atrial disease Encephalopathy Mildly elevated troponin Acute kidney injury -Blood pressure trend overall appear stable, would start aspirin and statin therapy when able to tolerate. Check echocardiogram to evaluate LV function. Beta-cassius as heart rate and blood pressure permits. No KALPESH inhibitor or ARB at the current time given recent acute kidney injury. Consultation Date/Type/Reason Admit Date/Time Nov 12, 2016 at 05:22 Initial Consult Date 11/12/16 Type of Consultation: cv 24 HR Interval Summary Free Text/Dictation Patient seen and examined, family at bedside. Overall doing better Exam/Review of Systems Vital Signs Vitals Vital Signs Date Time Temp Pulse Resp B/P Pulse Ox O2 Delivery O2 Flow Rate FiO2 11/17/16 13:55 76 18 90 Nasal Cannula 2.0 11/17/16 11:30 98.2 121/51 11/17/16 02:08 28 Intake and Output 11/16/16 11/16/16 11/17/16 15:00 23:00 07:00 Intake Total 900 ml 900 ml Output Total 2100 ml 2500 ml Balance -1200 ml -1600 ml Exam Sleeping, no apparent distress Respiratory: other (Coarse breath sounds bilaterally, no wheezing) Cardiovascular: other (S1-S2 heard), regular rate and rhythm Gastrointestinal: bowel sounds, non-tender, soft Extremities: edema (Trace) Results Result Diagram: 11/17/16 0543 11/17/16 0543 Results 24 hrs Laboratory Tests Test 11/16/16 18:24 11/16/16 20:31 11/17/16 00:47 11/17/16 05:11 Bedside Glucose 197 215 225 H 191 Test 11/17/16 05:43 11/17/16 08:17 11/17/16 10:00 11/17/16 13:23 White Blood Count 14.1 #H Red Blood Count 3.78 L Hemoglobin 11.2 L Hematocrit 34.8 L Mean Corpuscular Volume 92.1 Mean Corpuscular Hemoglobin 29.6 Mean Corpuscular Hemoglobin Concent 32.2 Red Cell Distribution Width 16.0 H Platelet Count 152 # Mean Platelet Volume 11.3 H Neutrophils % 65.3 Lymphocytes % 17.4 Monocytes % 9.0 Eosinophils % 5.6 Basophils % 0.6 Nucleated Red Blood Cells % 0.0 Neutrophils # 9.2 H Lymphocytes # 2.5 Monocytes # 1.3 H Eosinophils # 0.8 H Basophils # 0.1 Nucleated Red Blood Cells # 0.0 Sodium Level 154 H Potassium Level 3.4 L Chloride Level 123 H Carbon Dioxide Level 24 Anion Gap 10 Blood Urea Nitrogen 37 #H Creatinine 1.33 H Glucose Level 200 Calcium Level 9.1 Bedside Glucose 174 221 H Vancomycin Level Trough 16.8 Medications Medications Current Medications Miscellaneous Information 1 ea NOTE XX ; Start 11/12/16 at 08:30 Glucose (Glutose) 15 gm Q15M PRN PO DECREASED GLUCOSE; Start 11/12/16 at 08:30 Glucose (Glutose) 22.5 gm Q15M PRN PO DECREASED GLUCOSE; Start 11/12/16 at 08: 30 Dextrose (D50w Syringe) 25 ml Q15M PRN IV DECREASED GLUCOSE; Start 11/12/16 at 08:30 Dextrose (D50w Syringe) 50 ml Q15M PRN IV DECREASED GLUCOSE; Start 11/12/16 at 08:30 Glucagon (Glucagen) 1 mg Q15M PRN IM DECREASED GLUCOSE; Start 11/12/16 at 08:30 Glucose (Glutose) 15 gm Q15M PRN BUCCAL DECREASED GLUCOSE; Start 11/12/16 at 08 :30 Enoxaparin Sodium (Lovenox) 30 mg DAILY SC Last administered on 11/17/16 08:38 ; Admin Dose 30 MG; Start 11/14/16 at 09:00 Collagenase 1 applic 1 applic DAILY TOP Last administered on 11/17/16 10:36; Admin Dose 1 APPLIC; Start 11/16/16 at 09:00 Meropenem 100 ml @ 200 mls/hr Q12 IVPB Last administered on 11/17/16 08:21; Admin Dose 200 MLS/HR; Start 11/15/16 at 21:00 Dextrose/Sodium Chloride (D5-1/2ns) 1,000 ml @ 75 mls/hr [id number] IV Last administered on 11/17/16 12:01; Admin Dose 75 MLS/HR; Start 11/15/16 at 11:30 Insulin Glargine (Lantus) 5 unit DAILY@20 SC Last administered on 11/16/16 20: 50; Admin Dose 5 UNIT; Start 11/15/16 at 20:00 Insulin Aspart (Novolog Insulin Pen) NOVOLOG *MILD* ALGORI... Q4 SC Last administered on 11/17/16 13:40; Admin Dose 3 UNIT; Start 11/15/16 at 17:00 Ondansetron HCl (Zofran Inj) 4 mg Q4H PRN IV NAUSEA AND/OR VOMITING; Start at 17:00 Miscellaneous Information (Pending [facility] Order For Wound Care) This patient jean baptiste... PRN PRN XX WOUND CARE; Start 11/15/16 at 18:30 Hydralazine HCl (Apresoline) 10 mg Q4H PRN IV ELEVATED BLOOD PRESSURE; Start at 20:30 Amlodipine Besylate (Norvasc) 5 mg DAILY PO ; Start 11/17/16 at 09:00 Insulin Human NPH (Humulin N) 20 unit DAILY@08 SC Last administered on 08:39; Admin Dose 20 UNIT; Start 11/17/16 at 08:00 Acetaminophen (Tylenol Tab) 650 mg Q6H PRN PO PAIN AND OR ELEVATED TEMP; Start 11/16/16 at 14:00 Methadone HCl (Methadone) 10 mg Q8 PRN PO pain; Start 11/16/16 at 14:00; Status Future Hold Pantoprazole 40 mg 40 mg DAILY@06 IV Last administered on 11/17/16 05:12; Admin Dose 40 MG; Start 11/17/16 at 06:00 Vancomycin HCl (Vancocin) 250 ml @ 125 mls/hr Q36H IVPB ; Start 11/19/16 at 00: 00 Tucker Jacome DO Nov 17, 2016 15:21
[2016-11-17] MEDS: ATORVASTATIN 20 MG TAB PO SCH (20:26)
[2016-11-17] MEDS: INSULIN GLARGINE [LANtus] 3 ML PEN SC SCH (20:28)
[2016-11-18] VITALS (12 sets, daily range): BP systolic 103–199; BP diastolic 50–84; PULSE 60–80; RESP 16–18
[2016-11-18] MEDS: INSULIN ASPART [NOVOLOG] 3 ML PEN SC SCH ×4 (00:47→12:21)
[2016-11-18] MEDS: IPRATROPIUM (NEB) 0.5 MG/2.5 ML AMP HHN SCH ×4 (01:48→19:46)
[2016-11-18] MEDS: LEVALBUTEROL (NEB) 0.63 MG/3 ML AMP HHN SCH ×4 (01:48→19:46)
[2016-11-18] MEDS: PANTOPRAZOLE 40 MG INJ IV SCH (05:43)
[2016-11-18] MEDS: DEXTROSE 5%-0.45% NACL 1,000 ML IV SCH (07:24)
[2016-11-18 08:02] LABS: ADD SCAN DIFF NO
[2016-11-18 08:18] LABS: BASOPHIL # 0.1 10^3/ul (0.0-0.1); BASOPHILS % 0.7 % (0.0-2.0); EOSINOPHILS # 0.8 10^3/ul (0.0-0.5); EOSINOPHILS % 7.1 % (0.0-7.0); HEMATOCRIT 34.4 % (37.0-47.0); LYMPHOCYTES # 2.2 10^3/ul (0.8-2.9); LYMPHOCYTES % 20.1 % (15.0-51.0); MEAN CORPUSCULAR HEMOGLOBIN 29.7 pg (29.0-33.0); MEAN PLATELET VOLUME 11.4 fl (7.4-10.4); MONOCYTES % 9.4 % (0.0-11.0); NEUTROPHIL # 6.6 10^3/ul (1.6-7.5); NEUTROPHILS % 59.7 % (39.0-77.0); PLATELET COUNT 175 10^3/UL (140-415); RED CELL DISTRIBUTION WIDTH 16.1 % (11.5-14.5)
[2016-11-18] MEDS: ASPIRIN 81 MG TAB PO SCH (08:24)
[2016-11-18] MEDS: AMLODIPINE 5 MG TAB PO SCH (08:24)
[2016-11-18] MEDS: NPH, HUMAN INSULIN ISOPHANE 3ML VIAL SC SCH ×2 (08:26→17:36)
[2016-11-18] MEDS: ENOXAPARIN 30 MG/0.3 ML SYG SC SCH (08:27)
[2016-11-18] MEDS: COLLAGENASE 30 GM TUBE TOP SCH ×2 (08:45→13:12)
[2016-11-18] MEDS: MEROPENEM 500 MG/100 ML (PMX) 100 ML IVPB SCH ×2 (08:45→20:32)
[2016-11-18 09:08] LABS: ALBUMIN 2.9 g/dl (3.3-4.9); ALBUMIN/GLOBULIN RATIO 0.96; BILIRUBIN,INDIRECT 0.3 mg/dl (0-1.1); BILIRUBIN,TOTAL 0.3 mg/dl (0.2-1.3); CALCIUM 8.7 mg/dl (8.4-10.2); CREATININE 1.32 mg/dl (0.44-1.00); POTASSIUM 3.6 mmol/L (3.5-5.1); TOTAL PROTEIN 5.9 g/dl (6.1-8.1)
--- NOTE | 2016-11-18 09:40 | CONS ---
Date/Time of Note Date/Time of Note DATE: 11/18/16 TIME: 09:34 Assessment/Plan Assessment/Plan Chief Complaint/Hosp Course 1) asp pneumonia continue with vanco/merrem to cover resistant organisms 11/13 - sputum cx ordered no change 11/16 - sputum cx never sent off continue with vanco/merrem for 8-10 day course 11/18 - wbc is improved, continue vanco/merrem thru 11/21 then change back to po cipro/doxy thru 12/11 2) pyuria and possible UTI await maturation of urine cx 11/13 - urine cx is pending 11/16 - urine cx was negative for bacteria, just yeast 3) L heal osteo s/p debridement about a week ago merrem will cover the kleb that was there before repeat wound cx 11/13 - wound cx is pending 11/13 - wound cx did not grow any aggressive bacteria 11/18 - will change back to cipro/doxy when done with iv antibiotics check esr, crp in a.m. 4) PVD no reversible stenosis found to LLE 5) GPR in blood cx (bacillus species) 11/13 - this likely is a contaminant repeat blood cx this a.m. 11/16 - blood cx grew bacillus which is likely a contaminant Problems: Consultation Date/Type/Reason Admit Date/Time Nov 12, 2016 at 05:22 Initial Consult Date 11/12/16 Type of Consultation: ID 24 HR Interval Summary Free Text/Dictation pt denies pain or cough nurse reports no diarrhea or vomiting Exam/Review of Systems Vital Signs Vitals Vital Signs Date Time Temp Pulse Resp B/P Pulse Ox O2 Delivery O2 Flow Rate FiO2 11/18/16 08:15 73 11/18/16 07:51 98.6 16 199/84 97 11/18/16 07:30 Nasal Cannula 2.0 11/17/16 02:08 28 Intake and Output 11/17/16 11/17/16 11/18/16 15:00 23:00 07:00 Intake Total 800 ml 100 ml 700 ml Output Total 850 ml 600 ml Balance 800 ml -750 ml 100 ml Exam Constitutional: alert Eyes: nl sclera ENMT: mucosa pink and moist Respiratory: clear to auscultation Cardiovascular: regular rate and rhythm Gastrointestinal: non-tender, soft Extremities: other (L heal is bandaged, pic from 11/15 shows no redness around the heal ulcer with part eschar) Results Result Diagram: 11/18/16 0655 11/18/16 0655 Results 24 hrs Laboratory Tests Test 11/17/16 10:00 11/17/16 13:23 11/17/16 18:00 11/17/16 20:21 Vancomycin Level Trough 16.8 Bedside Glucose 221 H 244 H 229 H Test 11/18/16 00:42 11/18/16 05:39 11/18/16 06:55 11/18/16 08:15 Bedside Glucose 227 H 240 H 235 H White Blood Count 11.0 #H Red Blood Count 3.70 L Hemoglobin 11.0 L Hematocrit 34.4 L Mean Corpuscular Volume 93.0 Mean Corpuscular Hemoglobin 29.7 Mean Corpuscular Hemoglobin Concent 32.0 Red Cell Distribution Width 16.1 H Platelet Count 175 Mean Platelet Volume 11.4 H Neutrophils % 59.7 Lymphocytes % 20.1 Monocytes % 9.4 Eosinophils % 7.1 H Basophils % 0.7 Nucleated Red Blood Cells % 0.0 Neutrophils # 6.6 Lymphocytes # 2.2 Monocytes # 1.0 H Eosinophils # 0.8 H Basophils # 0.1 Nucleated Red Blood Cells # 0.0 Sodium Level 151 H Potassium Level 3.6 Chloride Level 120 H Carbon Dioxide Level 25 Anion Gap 10 Blood Urea Nitrogen 33 H Creatinine 1.32 H Glucose Level 254 H Calcium Level 8.7 Total Bilirubin 0.3 Direct Bilirubin 0.00 Indirect Bilirubin 0.3 Aspartate Amino Transf (AST/SGOT) 77 H Alanine Aminotransferase (ALT/SGPT) 75 H Alkaline Phosphatase 100 Total Protein 5.9 L Albumin 2.9 L Globulin 3.00 Albumin/Globulin Ratio 0.96 Medications Medications Current Medications Miscellaneous Information 1 ea NOTE XX ; Start 11/12/16 at 08:30 Glucose (Glutose) 15 gm Q15M PRN PO DECREASED GLUCOSE; Start 11/12/16 at 08:30 Glucose (Glutose) 22.5 gm Q15M PRN PO DECREASED GLUCOSE; Start 11/12/16 at 08: 30 Dextrose (D50w Syringe) 25 ml Q15M PRN IV DECREASED GLUCOSE; Start 11/12/16 at 08:30 Dextrose (D50w Syringe) 50 ml Q15M PRN IV DECREASED GLUCOSE; Start 11/12/16 at 08:30 Glucagon (Glucagen) 1 mg Q15M PRN IM DECREASED GLUCOSE; Start 11/12/16 at 08:30 Glucose (Glutose) 15 gm Q15M PRN BUCCAL DECREASED GLUCOSE; Start 11/12/16 at 08 :30 Enoxaparin Sodium (Lovenox) 30 mg DAILY SC Last administered on 11/18/16 08:27 ; Admin Dose 30 MG; Start 11/14/16 at 09:00 Collagenase 1 applic 1 applic DAILY TOP Last administered on 11/17/16 10:36; Admin Dose 1 APPLIC; Start 11/16/16 at 09:00 Meropenem 100 ml @ 200 mls/hr Q12 IVPB Last administered on 11/18/16 08:45; Admin Dose 200 MLS/HR; Start 11/15/16 at 21:00 Dextrose/Sodium Chloride (D5-1/2ns) 1,000 ml @ 50 mls/hr Q20H IV Last administered on 11/18/16 07:24; Admin Dose 50 MLS/HR; Start 11/15/16 at 11:30 Insulin Glargine (Lantus) 5 unit DAILY@20 SC Last administered on 11/17/16 20: 28; Admin Dose 5 UNIT; Start 11/15/16 at 20:00 Insulin Aspart (Novolog Insulin Pen) NOVOLOG *MILD* ALGORI... Q4 SC Last administered on 11/18/16 08:27; Admin Dose 3 UNIT; Start 11/15/16 at 17:00 Ondansetron HCl (Zofran Inj) 4 mg Q4H PRN IV NAUSEA AND/OR VOMITING; Start at 17:00 Miscellaneous Information ([facility]) This patient jean baptiste... PRN PRN XX WOUND CARE; Start 11/15/16 at 18:30 Hydralazine HCl (Apresoline) 10 mg Q4H PRN IV ELEVATED BLOOD PRESSURE; Start at 20:30 Amlodipine Besylate (Norvasc) 5 mg DAILY PO Last administered on 11/18/16 08: 24; Admin Dose 5 MG; Start 11/17/16 at 09:00 Insulin Human NPH (Humulin N) 20 unit DAILY@08 SC Last administered on 08:26; Admin Dose 20 UNIT; Start 11/17/16 at 08:00 Acetaminophen (Tylenol Tab) 650 mg Q6H PRN PO PAIN AND OR ELEVATED TEMP; Start 11/16/16 at 14:00 Methadone HCl (Methadone) 10 mg Q8 PRN PO pain; Start 11/16/16 at 14:00; Status Future Hold Pantoprazole 40 mg 40 mg DAILY@06 IV Last administered on 11/18/16 05:43; Admin Dose 40 MG; Start 11/17/16 at 06:00 Vancomycin HCl (Vancocin) 250 ml @ 125 mls/hr Q36H IVPB ; Start 11/19/16 at 00: 00 Aspirin (Aspirin) 81 mg DAILY PO Last administered on 11/18/16 08:24; Admin Dose 81 MG; Start 11/18/16 at 09:00 Atorvastatin Calcium (Lipitor) 20 mg HS PO ; Start 11/17/16 at 21:00 ANTHONY WOODARD MD Nov 18, 2016 09:40
--- NOTE | 2016-11-18 11:26 | CONS ---
Date/Time of Note Date/Time of Note DATE: 11/18/16 TIME: 11:22 Assessment/Plan Assessment/Plan Additional Assessment/Plan Sepsis Respiratory failure status post extubation Peripheral atrial disease Encephalopathy Mildly elevated troponin Acute kidney injury Paroxysmal atrial fibrillation -Patient with brief episode of atrial fibrillation for a few seconds seen on telemetry this morning. We will start beta-cassius, echocardiogram pending. Patient on Xopenex and could possibly exacerbate arrhythmia. Continue telemetry monitoring. No KALPESH inhibitor or ARB at the current time given recent acute kidney injury. Consultation Date/Type/Reason Admit Date/Time Nov 12, 2016 at 05:22 Initial Consult Date 11/12/16 Type of Consultation: cv 24 HR Interval Summary Free Text/Dictation Brief episode of irregular heart rhythm on telemetry this morning but self terminated. Exam/Review of Systems Vital Signs Vitals Vital Signs Date Time Temp Pulse Resp B/P Pulse Ox O2 Delivery O2 Flow Rate FiO2 11/18/16 11:16 98.5 74 16 174/69 99 11/18/16 07:30 Nasal Cannula 2.0 11/17/16 02:08 28 Intake and Output 11/17/16 11/17/16 11/18/16 15:00 23:00 07:00 Intake Total 800 ml 100 ml 700 ml Output Total 850 ml 600 ml Balance 800 ml -750 ml 100 ml Exam Awake, following some commands, no apparent distress Head: normocephalic Respiratory: other (Coarse breath sounds bilaterally, no wheezing) Cardiovascular: other (S1-S2 heard), regular rate and rhythm Gastrointestinal: bowel sounds, non-tender, soft Extremities: edema Results Result Diagram: 11/18/16 0655 11/18/16 0655 Results 24 hrs Laboratory Tests Test 11/17/16 13:23 11/17/16 18:00 11/17/16 20:21 11/18/16 00:42 Bedside Glucose 221 H 244 H 229 H 227 H Test 11/18/16 05:39 11/18/16 06:55 11/18/16 08:15 Bedside Glucose 240 H 235 H White Blood Count 11.0 #H Red Blood Count 3.70 L Hemoglobin 11.0 L Hematocrit 34.4 L Mean Corpuscular Volume 93.0 Mean Corpuscular Hemoglobin 29.7 Mean Corpuscular Hemoglobin Concent 32.0 Red Cell Distribution Width 16.1 H Platelet Count 175 Mean Platelet Volume 11.4 H Neutrophils % 59.7 Lymphocytes % 20.1 Monocytes % 9.4 Eosinophils % 7.1 H Basophils % 0.7 Nucleated Red Blood Cells % 0.0 Neutrophils # 6.6 Lymphocytes # 2.2 Monocytes # 1.0 H Eosinophils # 0.8 H Basophils # 0.1 Nucleated Red Blood Cells # 0.0 Sodium Level 151 H Potassium Level 3.6 Chloride Level 120 H Carbon Dioxide Level 25 Anion Gap 10 Blood Urea Nitrogen 33 H Creatinine 1.32 H Glucose Level 254 H Calcium Level 8.7 Total Bilirubin 0.3 Direct Bilirubin 0.00 Indirect Bilirubin 0.3 Aspartate Amino Transf (AST/SGOT) 77 H Alanine Aminotransferase (ALT/SGPT) 75 H Alkaline Phosphatase 100 Total Protein 5.9 L Albumin 2.9 L Globulin 3.00 Albumin/Globulin Ratio 0.96 Medications Medications Current Medications Miscellaneous Information 1 ea NOTE XX ; Start 11/12/16 at 08:30 Glucose (Glutose) 15 gm Q15M PRN PO DECREASED GLUCOSE; Start 11/12/16 at 08:30 Glucose (Glutose) 22.5 gm Q15M PRN PO DECREASED GLUCOSE; Start 11/12/16 at 08: 30 Dextrose (D50w Syringe) 25 ml Q15M PRN IV DECREASED GLUCOSE; Start 11/12/16 at 08:30 Dextrose (D50w Syringe) 50 ml Q15M PRN IV DECREASED GLUCOSE; Start 11/12/16 at 08:30 Glucagon (Glucagen) 1 mg Q15M PRN IM DECREASED GLUCOSE; Start 11/12/16 at 08:30 Glucose (Glutose) 15 gm Q15M PRN BUCCAL DECREASED GLUCOSE; Start 11/12/16 at 08 :30 Enoxaparin Sodium (Lovenox) 30 mg DAILY SC Last administered on 11/18/16 08:27 ; Admin Dose 30 MG; Start 11/14/16 at 09:00 Collagenase 1 applic 1 applic DAILY TOP Last administered on 11/17/16 10:36; Admin Dose 1 APPLIC; Start 11/16/16 at 09:00 Meropenem 100 ml @ 200 mls/hr Q12 IVPB Last administered on 11/18/16 08:45; Admin Dose 200 MLS/HR; Start 11/15/16 at 21:00 Dextrose/Sodium Chloride (D5-1/2ns) 1,000 ml @ 50 mls/hr Q20H IV Last administered on 11/18/16 07:24; Admin Dose 50 MLS/HR; Start 11/15/16 at 11:30 Insulin Glargine (Lantus) 5 unit DAILY@20 SC Last administered on 11/17/16 20: 28; Admin Dose 5 UNIT; Start 11/15/16 at 20:00 Insulin Aspart (Novolog Insulin Pen) NOVOLOG *MILD* ALGORI... Q4 SC Last administered on 11/18/16 08:27; Admin Dose 3 UNIT; Start 11/15/16 at 17:00 Ondansetron HCl (Zofran Inj) 4 mg Q4H PRN IV NAUSEA AND/OR VOMITING; Start at 17:00 Miscellaneous Information (Pending [facility] Order For Wound Care) This patient jean baptiste... PRN PRN XX WOUND CARE; Start 11/15/16 at 18:30 Hydralazine HCl (Apresoline) 10 mg Q4H PRN IV ELEVATED BLOOD PRESSURE; Start at 20:30 Amlodipine Besylate (Norvasc) 5 mg DAILY PO Last administered on 11/18/16 08: 24; Admin Dose 5 MG; Start 11/17/16 at 09:00 Insulin Human NPH (Humulin N) 20 unit DAILY@08 SC Last administered on 08:26; Admin Dose 20 UNIT; Start 11/17/16 at 08:00 Acetaminophen (Tylenol Tab) 650 mg Q6H PRN PO PAIN AND OR ELEVATED TEMP; Start 11/16/16 at 14:00 Methadone HCl (Methadone) 10 mg Q8 PRN PO pain; Start 11/16/16 at 14:00; Status Future Hold Pantoprazole 40 mg 40 mg DAILY@06 IV Last administered on 11/18/16 05:43; Admin Dose 40 MG; Start 11/17/16 at 06:00 Vancomycin HCl (Vancocin) 250 ml @ 125 mls/hr Q36H IVPB ; Start 11/19/16 at 00: 00 Aspirin (Aspirin) 81 mg DAILY PO Last administered on 11/18/16 08:24; Admin Dose 81 MG; Start 11/18/16 at 09:00 Atorvastatin Calcium (Lipitor) 20 mg HS PO ; Start 11/17/16 at 21:00 Tucker Jacome DO Nov 18, 2016 11:26
--- NOTE | 2016-11-18 11:51 | RADRPT ---
Echocardiogram Report Patient Name: YOHAN MATTA Gender: Female Date: 1935 Study Date: 18-Nov-2016 Medical Imaging Technician: Aurelio Rios [facility] Location: [id number] Ref. Physician: TUCKER JACOME Quality: Technically Difficult Study Procedures: Transthoracic echocardiogram with complete 2D, M-Mode, and doppler examination. Indications: elevated troponin. 2D/M Mode Doppler Measurement Value Normal Ranges Measurement Value Normal Ranges LVIDd 2D 4.6 3.5 - 5.6 cm AV Peak Silvestre 1.6 m/sec LVIDs 2D 2.8 2.1 - 4.1 cm AV Peak PG 10.0 mmHg FS 2D 39.6 % AI Peak PG 51.0 mmHg LVPWd 2D 0.9 0.6 - 1.1 cm AI Peak Silvestre 3.6 m/sec IVSd 2D 0.9 0.6 - 1.1 cm AI PHT 534.0 msec IVS/LVPW 2D 1.0 LVOT Peak Silvestre 1.0 m/sec AoR Diam 2D 2.2 2.0 - 3.7 cm LVOT Peak PG 4.0 mmHg LA/Ao 2D 1 0 - 1 MV E Peak Silvestre 0.6 m/sec EDV 2D 97.3 cm3 MV A Peak Silvestre 0.9 m/sec ESV 2D 21.5 cm3 MV E/A 0.7 LA Dimen 2D 2.6 2.3 - 4.0 cm MV Decel Time 201 msec MV E/A 0.7 Findings Left Ventricle: Overall, normal left ventricular systolic function. Not all segments visualized. Normal left ventricular cavity size. Normal left ventricular wall thickness. Ejection fraction is visually estimated at 60 %. Tissue Doppler/Mitral Doppler indices are consistent with impaired relaxation (Stage I diastolic dysfunction). Right Ventricle: Normal right ventricular size. Normal right ventricular systolic function. Left Atrium: The left atrium is normal in size. Right Atrium: The right atrium is normal in size. Mitral Valve: Normal appearance and function of the mitral valve with trace physiologic regurgitation. Aortic Valve: No hemodynamically significant aortic stenosis by doppler. Aortic cusps appear mildly calcified. Trace aortic valve regurgitation. Tricuspid Valve: Normal appearance and function of the tricuspid valve with trace physiologic regurgitation. Pulmonic Valve: Normal pulmonic valve appearance. Pericardium: Normal pericardium with no significant pericardial effusion. Aorta: Normal aortic root. IVC: Normal size and normal respiratory collapse consistent with normal right atrial pressure. Conclusions Overall, normal left ventricular systolic function. Not all segments visualized. Normal left ventricular cavity size. Normal left ventricular wall thickness. Ejection fraction is visually estimated at 60 %. Tissue Doppler/Mitral Doppler indices are consistent with impaired relaxation (Stage I diastolic dysfunction). Normal right ventricular size. Normal right ventricular systolic function. The left atrium is normal in size. The right atrium is normal in size. No significant valvular stenosis or regurgitation seen. Normal pericardium with no significant pericardial effusion. Electronically Signed By: Tucker Jacome 18-Nov-2016 11:50:52 -0700 Patient Name: YOHAN MATTA Study Date: 18-Nov-[id number]
[2016-11-18] MEDS: METOPROLOL 25 MG TAB PO SCH ×2 (12:33→20:24)
--- NOTE | 2016-11-18 12:48 | CONS ---
Date/Time of Note Date/Time of Note DATE: 11/18/16 TIME: 12:45 Assessment/Plan Assessment/Plan Additional Assessment/Plan Assessment and recommendations; 1. Patient admitted for severe UTI with sepsis leading to respiratory failure patient successfully extubated several days ago and transferred to the medical floor with continued marked improvement. 2. Acute renal injury with marked prerenal azotemia with improvement as well. 3. Sacral and left heel ulcers. 4. History of peripheral vascular disease. Continue current treatment. Consultation Date/Type/Reason Admit Date/Time Nov 12, 2016 at 05:22 Initial Consult Date 11/12/16 Type of Consultation: Pulmonary 24 HR Interval Summary Free Text/Dictation Patient condition is continually improving. She is much more awake alert. Has remained hemodynamically stable. General exam; elderly woman, awake alert currently in no distress. Exam/Review of Systems Vital Signs Vitals Vital Signs Date Time Temp Pulse Resp B/P Pulse Ox O2 Delivery O2 Flow Rate FiO2 11/18/16 12:10 16 146/61 11/18/16 12:07 73 11/18/16 11:16 98.5 99 11/18/16 07:30 Nasal Cannula 2.0 11/17/16 02:08 28 Intake and Output 11/17/16 11/17/16 11/18/16 15:00 23:00 07:00 Intake Total 800 ml 100 ml 700 ml Output Total 850 ml 600 ml Balance 800 ml -750 ml 100 ml Exam HEENT exam; supple neck, no JVD. No lymphadenopathy. Midline trachea. No thyromegaly. Patient is a right corneal opacity. There is a left intraocular lens implant. Chest exam; clear to auscultation. S1-S2 audible, no murmurs. Regular rhythm. Abdomen examination; soft, no organomegaly. Bowel sounds audible. Nontender. 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 There is ulceration involving the left heel as well as sacral area. [employer]IN[employer] exam; patient is awake alert and follows simple commands. Results Result Diagram: 11/18/16 0655 11/18/16 0655 Results 24 hrs Laboratory Tests Test 11/17/16 13:23 11/17/16 18:00 11/17/16 20:21 11/18/16 00:42 Bedside Glucose 221 H 244 H 229 H 227 H Test 11/18/16 05:39 11/18/16 06:55 11/18/16 08:15 11/18/16 12:13 Bedside Glucose 240 H 235 H 203 White Blood Count 11.0 #H Red Blood Count 3.70 L Hemoglobin 11.0 L Hematocrit 34.4 L Mean Corpuscular Volume 93.0 Mean Corpuscular Hemoglobin 29.7 Mean Corpuscular Hemoglobin Concent 32.0 Red Cell Distribution Width 16.1 H Platelet Count 175 Mean Platelet Volume 11.4 H Neutrophils % 59.7 Lymphocytes % 20.1 Monocytes % 9.4 Eosinophils % 7.1 H Basophils % 0.7 Nucleated Red Blood Cells % 0.0 Neutrophils # 6.6 Lymphocytes # 2.2 Monocytes # 1.0 H Eosinophils # 0.8 H Basophils # 0.1 Nucleated Red Blood Cells # 0.0 Sodium Level 151 H Potassium Level 3.6 Chloride Level 120 H Carbon Dioxide Level 25 Anion Gap 10 Blood Urea Nitrogen 33 H Creatinine 1.32 H Glucose Level 254 H Calcium Level 8.7 Total Bilirubin 0.3 Direct Bilirubin 0.00 Indirect Bilirubin 0.3 Aspartate Amino Transf (AST/SGOT) 77 H Alanine Aminotransferase (ALT/SGPT) 75 H Alkaline Phosphatase 100 Total Protein 5.9 L Albumin 2.9 L Globulin 3.00 Albumin/Globulin Ratio 0.96 Medications Medications Current Medications Miscellaneous Information 1 ea NOTE XX ; Start 11/12/16 at 08:30 Glucose (Glutose) 15 gm Q15M PRN PO DECREASED GLUCOSE; Start 11/12/16 at 08:30 Glucose (Glutose) 22.5 gm Q15M PRN PO DECREASED GLUCOSE; Start 11/12/16 at 08: 30 Dextrose (D50w Syringe) 25 ml Q15M PRN IV DECREASED GLUCOSE; Start 11/12/16 at 08:30 Dextrose (D50w Syringe) 50 ml Q15M PRN IV DECREASED GLUCOSE; Start 11/12/16 at 08:30 Glucagon (Glucagen) 1 mg Q15M PRN IM DECREASED GLUCOSE; Start 11/12/16 at 08:30 Glucose (Glutose) 15 gm Q15M PRN BUCCAL DECREASED GLUCOSE; Start 11/12/16 at 08 :30 Enoxaparin Sodium (Lovenox) 30 mg DAILY SC Last administered on 11/18/16t 08:27 ; Admin Dose 30 MG; Start 11/14/16 at 09:00 Collagenase 1 applic 1 applic DAILY TOP Last administered on 11/17/16 10:36; Admin Dose 1 APPLIC; Start 11/16/16 at 09:00 Meropenem 100 ml @ 200 mls/hr Q12 IVPB Last administered on 11/18/16 08:45; Admin Dose 200 MLS/HR; Start 11/15/16 at 21:00 Dextrose/Sodium Chloride (D5-1/2ns) 1,000 ml @ 50 mls/hr Q20H IV Last administered on 11/18/16 07:24; Admin Dose 50 MLS/HR; Start 11/15/16 at 11:30 Insulin Glargine (Lantus) 5 unit DAILY@20 SC Last administered on 11/17/16 20: 28; Admin Dose 5 UNIT; Start 11/15/16 at 20:00 Insulin Aspart (Novolog Insulin Pen) NOVOLOG *MILD* ALGORI... Q4 SC Last administered on 11/18/16 12:21; Admin Dose 2 UNIT; Start 11/15/16 at 17:00 Ondansetron HCl (Zofran Inj) 4 mg Q4H PRN IV NAUSEA AND/OR VOMITING; Start at 17:00 Miscellaneous Information (Pending [facility] Order For Wound Care) This patient jean baptiste... PRN PRN XX WOUND CARE; Start 11/15/16 at 18:30 Hydralazine HCl (Apresoline) 10 mg Q4H PRN IV ELEVATED BLOOD PRESSURE; Start at 20:30 Amlodipine Besylate (Norvasc) 5 mg DAILY PO Last administered on 11/18/16 08: 24; Admin Dose 5 MG; Start 11/17/16 at 09:00 Insulin Human NPH (Humulin N) 20 unit DAILY@08 SC Last administered on 08:26; Admin Dose 20 UNIT; Start 11/17/16 at 08:00 Acetaminophen (Tylenol Tab) 650 mg Q6H PRN PO PAIN AND OR ELEVATED TEMP; Start 11/16/16 at 14:00 Methadone HCl 10 mg 10 mg Q8 PRN PO pain; Start 11/16/16 at 14:00; Status Future Hold Vancomycin HCl (Vancocin) 250 ml @ 125 mls/hr Q36H IVPB ; Start 11/19/16 at 00: 00 Aspirin (Aspirin) 81 mg DAILY PO Last administered on 11/18/16 08:24; Admin Dose 81 MG; Start 11/18/16 at 09:00 Atorvastatin Calcium (Lipitor) 20 mg HS PO ; Start 11/17/16 at 21:00 Metoprolol Tartrate (Lopressor) 25 mg BID PO Last administered on 11/18/16 12: 33; Admin Dose 25 MG; Start 11/18/16 at 11:30 Pantoprazole (Protonix Tab) 40 mg DAILY@06 PO ; Start 11/19/16 at 06:00 MILO CHARLES Nov 18, 2016 12:48
--- NOTE | 2016-11-18 17:03 | RADRPT ---
PROCEDURE: Left upper extremity venous ultrasound CLINICAL INDICATION: Left arm pain and swelling. Deep venous thrombosis. TECHNIQUE: Olsen scale, color doppler, spectral doppler ultrasound imaging of the venous system of the left upper extremity. Augmentation maneuvers were utilized. COMPARISON: No prior studies are available for comparison. FINDINGS: LEFT: Internal jugular vein: Patent. Subclavian vein: Patent. Axillary vein: Occlusive echogenic thrombus is present. Brachial vein: Patent. Basilic vein: Focal occlusive thrombus is present. Cephalic vein: Patent. Radial vein: Patent. Ulnar vein: Patent. 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 Superficial focal venous thrombosis within the left basilic vein is also possibly chronic. RPTAT: AADD .Johan Aguilar MD, MD Date Time Electronically viewed and signed by .Johan Aguilar MD, on 11/18/2016 17:03 .B/
--- NOTE | 2016-11-18 17:14 | PN ---
Date/Time of Note Date/Time of Note DATE: 11/18/16 TIME: 17:04 Assessment/Plan VTE Prophylaxis VTE Prophylaxis Intervention: LMWH Lines/Catheters IV Catheter Type (from Nrsg): Central Line Central line still needed: Yes Urinary Cath still in place: Yes Reason Cath still needed: skin wounds contaminated by urine Assessment/Plan Assessment/Plan a/p aspiration pneumonia- positive by ct. post vent, respir doing well. on multi abx, ID following. wbc almost back to normal. ARF- much improved. cr from 3's to 1.3. 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 add 10 u nph pm. will not use lantis due to combination not covered at home. htn on med osteomyelitis- post debride on last hospitalization. on multi abx. pod to follow and wound care nursing following. gi poor intake. pt is hungry but wasnt allowed to eat due to pt c/o pain of the throat. which may be due to vent trauma. pt had swallow study 2 weeks ago at time of discharge and found normal swallow with difficulty chewing from lack of teeth. pt has been very sedated and aspiration precautions necessary. Subjective 24 Hr Interval Summary Free Text/Dictation more awake today. left UE still swollen, not started po intake. mild discomfort Exam/Review of Systems Vital Signs Vitals Vital Signs Date Time Temp Pulse Resp B/P Pulse Ox O2 Delivery O2 Flow Rate FiO2 11/18/16 16:05 60 11/18/16 15:41 3.0 11/18/16 15:25 98.5 16 167/63 98 11/18/16 13:03 Nasal Cannula 11/17/16 02:08 28 Intake and Output 11/17/16 11/17/16 11/18/16 15:00 23:00 07:00 Intake Total 800 ml 100 ml 700 ml Output Total 850 ml 600 ml Balance 800 ml -750 ml 100 ml Exam left ue- no pain to palp. 2-3 + pitting. lung cta cv rrr Results Result Diagram: 11/18/16 0655 11/18/16 0655 Results 24 hrs Laboratory Tests Test 11/17/16 18:00 11/17/16 20:21 11/18/16 00:42 11/18/16 05:39 Bedside Glucose 244 H 229 H 227 H 240 H Test 11/18/16 06:55 11/18/16 08:15 11/18/16 12:13 White Blood Count 11.0 #H Red Blood Count 3.70 L Hemoglobin 11.0 L Hematocrit 34.4 L Mean Corpuscular Volume 93.0 Mean Corpuscular Hemoglobin 29.7 Mean Corpuscular Hemoglobin Concent 32.0 Red Cell Distribution Width 16.1 H Platelet Count 175 Mean Platelet Volume 11.4 H Neutrophils % 59.7 Lymphocytes % 20.1 Monocytes % 9.4 Eosinophils % 7.1 H Basophils % 0.7 Nucleated Red Blood Cells % 0.0 Neutrophils # 6.6 Lymphocytes # 2.2 Monocytes # 1.0 H Eosinophils # 0.8 H Basophils # 0.1 Nucleated Red Blood Cells # 0.0 Sodium Level 151 H Potassium Level 3.6 Chloride Level 120 H Carbon Dioxide Level 25 Anion Gap 10 Blood Urea Nitrogen 33 H Creatinine 1.32 H Glucose Level 254 H Calcium Level 8.7 Total Bilirubin 0.3 Direct Bilirubin 0.00 Indirect Bilirubin 0.3 Aspartate Amino Transf (AST/SGOT) 77 H Alanine Aminotransferase (ALT/SGPT) 75 H Alkaline Phosphatase 100 Total Protein 5.9 L Albumin 2.9 L Globulin 3.00 Albumin/Globulin Ratio 0.96 Bedside Glucose 235 H 203 Medications Medications Current Medications Miscellaneous Information 1 ea NOTE XX ; Start 11/12/16 at 08:30 Glucose (Glutose) 15 gm Q15M PRN PO DECREASED GLUCOSE; Start 11/12/16 at 08:30 Glucose (Glutose) 22.5 gm Q15M PRN PO DECREASED GLUCOSE; Start 11/12/16 at 08: 30 Dextrose (D50w Syringe) 25 ml Q15M PRN IV DECREASED GLUCOSE; Start 11/12/16 at 08:30 Dextrose (D50w Syringe) 50 ml Q15M PRN IV DECREASED GLUCOSE; Start 11/12/16 at 08:30 Glucagon (Glucagen) 1 mg Q15M PRN IM DECREASED GLUCOSE; Start 11/12/16 at 08:30 Glucose (Glutose) 15 gm Q15M PRN BUCCAL DECREASED GLUCOSE; Start 11/12/16 at 08 :30 Enoxaparin Sodium (Lovenox) 30 mg DAILY SC Last administered on 11/18/16 08:27 ; Admin Dose 30 MG; Start 11/14/16 at 09:00 Collagenase 1 applic 1 applic DAILY TOP Last administered on 11/18/16 13:12; Admin Dose 1 APPLIC; Start 11/16/16 at 09:00 Meropenem 100 ml @ 200 mls/hr Q12 IVPB Last administered on 11/18/16 08:45; Admin Dose 200 MLS/HR; Start 11/15/16 at 21:00 Dextrose/Sodium Chloride (D5-1/2ns) 1,000 ml @ 50 mls/hr Q20H IV Last administered on 11/18/16 07:24; Admin Dose 50 MLS/HR; Start 11/15/16 at 11:30 Insulin Glargine (Lantus) 5 unit DAILY@20 SC Last administered on 11/17/16 20: 28; Admin Dose 5 UNIT; Start 11/15/16 at 20:00 Ondansetron HCl (Zofran Inj) 4 mg Q4H PRN IV NAUSEA AND/OR VOMITING; Start at 17:00 Miscellaneous Information (Pending [facility] Order For Wound Care) This patient jean baptiste... PRN PRN XX WOUND CARE; Start 11/15/16 at 18:30 Hydralazine HCl (Apresoline) 10 mg Q4H PRN IV ELEVATED BLOOD PRESSURE; Start at 20:30 Amlodipine Besylate (Norvasc) 5 mg DAILY PO Last administered on 11/18/16 08: 24; Admin Dose 5 MG; Start 11/17/16 at 09:00 Insulin Human NPH (Humulin N) 20 unit DAILY@08 SC Last administered on 08:26; Admin Dose 20 UNIT; Start 11/17/16 at 08:00 Acetaminophen (Tylenol Tab) 650 mg Q6H PRN PO PAIN AND OR ELEVATED TEMP; Start 11/16/16 at 14:00 Methadone HCl 10 mg 10 mg Q8 PRN PO pain; Start 11/16/16 at 14:00; Status Future Hold Vancomycin HCl (Vancocin) 250 ml @ 125 mls/hr Q36H IVPB ; Start 11/19/16 at 00: 00 Aspirin (Aspirin) 81 mg DAILY PO Last administered on 11/18/16 08:24; Admin Dose 81 MG; Start 11/18/16 at 09:00 Atorvastatin Calcium (Lipitor) 20 mg HS PO ; Start 6/27/17 at 21:00 Metoprolol Tartrate (Lopressor) 25 mg BID PO Last administered on 11/18/16t 12: 33; Admin Dose 25 MG; Start 11/18/16 at 11:30 Pantoprazole (Protonix Tab) 40 mg DAILY@06 PO ; Start 11/19/16 at 06:00 Diagnostic Test (Pha) (Accu-Chek) 1 ea 02 XX ; Start 11/19/16 at 02:00 Insulin Human NPH (Humulin N) 10 unit 1730 SC ; Start 11/18/16 at 17:30 RIDGE MATTHEWS MD Nov 18, 2016 17:14
[2016-11-18] MEDS: Insulin NOVOLOG SS MILD Algorithm (SS with meals and bedtime) SC SCH ×2 (17:25→20:31)
[2016-11-18] MEDS ORDERED: INSULIN ASPART [NOVOLOG] 3 ML PEN SC SCH (17:25)
[2016-11-18] MEDS: hydrALAzine 20 MG INJ IV PRN (19:09)
[2016-11-18] MEDS ORDERED: NPH, HUMAN INSULIN ISOPHANE 3ML VIAL SC SCH (20:00)
[2016-11-18] MEDS: ATORVASTATIN 20 MG TAB PO SCH (20:25)
[2016-11-18] MEDS: ENOXAPARIN 60 MG/0.6 ML SYG SC SCH (20:29)
[2016-11-18] MEDS: INSULIN GLARGINE [LANtus] 3 ML PEN SC SCH (20:29)
[2016-11-19] VITALS (14 sets, daily range): BP systolic 114–189; BP diastolic 53–77; PULSE 64–78; RESP 18–20
[2016-11-19] MEDS: IPRATROPIUM (NEB) 0.5 MG/2.5 ML AMP HHN SCH ×4 (01:11→20:21)
[2016-11-19] MEDS: LEVALBUTEROL (NEB) 0.63 MG/3 ML AMP HHN SCH ×4 (01:11→20:21)
[2016-11-19] MEDS: VANCOMYCIN 1 GM in NS 250 ML IVPB SCH (01:31)
[2016-11-19] MEDS: ACCUCHECK AT 2AM (Patients on SS coverage) XX SCH (01:32)
[2016-11-19] MEDS: DEXTROSE 5%-0.45% NACL 1,000 ML IV SCH ×2 (04:43→09:00)
[2016-11-19] MEDS: ACETAMINOPHEN 325 MG TAB PO PRN ×2 (04:43→11:20)
[2016-11-19 06:55] LABS: ADD SCAN DIFF NO
[2016-11-19 06:59] LABS: ABNORMAL IP MESSAGE 1; BASOPHIL # 0.1 10^3/ul (0.0-0.1); BASOPHILS % 0.9 % (0.0-2.0); EOSINOPHILS # 0.8 10^3/ul (0.0-0.5); EOSINOPHILS % 7.2 % (0.0-7.0); HEMATOCRIT 35.9 % (37.0-47.0); HEMOGLOBIN 11.4 g/dl (12.0-16.0); LYMPHOCYTES # 2.4 10^3/ul (0.8-2.9); LYMPHOCYTES % 23.2 % (15.0-51.0); MEAN CORPUSCULAR HEMOGLOBIN 29.3 pg (29.0-33.0); MEAN CORPUSCULAR HGB CONC 31.8 g/dl (32.0-37.0); MEAN CORPUSCULAR VOLUME 92.3 fl (82.0-101.0); MEAN PLATELET VOLUME 10.8 fl (7.4-10.4); MONOCYTES % 9.2 % (0.0-11.0); NEUTROPHIL # 5.6 10^3/ul (1.6-7.5); NEUTROPHILS % 53.8 % (39.0-77.0); PLATELET COUNT 212 10^3/UL (140-415); RED BLOOD COUNT 3.89 10^6/ul (4.20-5.40); RED CELL DISTRIBUTION WIDTH 15.7 % (11.5-14.5); WHITE BLOOD COUNT 10.4 10^3/ul (4.8-10.8)
[2016-11-19 07:39] LABS: C-REACTIVE PROTEIN 3.5 mg/dl (0.0-0.9); CALCIUM 8.7 mg/dl (8.4-10.2); CREATININE 1.16 mg/dl (0.44-1.00); POTASSIUM 3.4 mmol/L (3.5-5.1)
[2016-11-19] MEDS: Insulin NOVOLOG SS MILD Algorithm (SS with meals and bedtime) SC SCH ×4 (08:53→21:00)
[2016-11-19] MEDS: COLLAGENASE 30 GM TUBE TOP SCH (09:00)
[2016-11-19] MEDS: MEROPENEM 500 MG/100 ML (PMX) 100 ML IVPB SCH ×2 (09:16→21:35)
[2016-11-19] MEDS: NPH, HUMAN INSULIN ISOPHANE 3ML VIAL SC SCH ×3 (09:17→21:44)
[2016-11-19] MEDS: ASPIRIN 81 MG TAB PO SCH (11:20)
[2016-11-19] MEDS: PANTOPRAZOLE (EC) 40 MG TAB PO SCH (11:20)
[2016-11-19] MEDS: METOPROLOL 25 MG TAB PO SCH ×2 (11:20→21:42)
[2016-11-19] MEDS: AMLODIPINE 5 MG TAB PO SCH (11:20)
--- NOTE | 2016-11-19 11:20 | CONS ---
Date/Time of Note Date/Time of Note DATE: 11/19/16 TIME: 11:18 Assessment/Plan Assessment/Plan Additional Assessment/Plan Assessment and recommendations; 1. Patient admitted for severe UTI and sepsis with severe renal insufficiency due to prerenal azotemia and dehydration with marked overall clinical improvement. 2. Status post respiratory failure. 3. Sacral and left heel decubitus ulcers. 4. Peripheral vascular disease. Continue current treatment. Consultation Date/Type/Reason Admit Date/Time Nov 12, 2016 at 05:22 Initial Consult Date 11/12/16 Type of Consultation: Pulmonary 24 HR Interval Summary Free Text/Dictation Patient's condition is stable. Remains awake alert. General exam; elderly woman, awake currently in no distress. Exam/Review of Systems Vital Signs Vitals Vital Signs Date Time Temp Pulse Resp B/P Pulse Ox O2 Delivery O2 Flow Rate FiO2 11/19/16 08:14 2.0 11/19/16 08:14 70 16 96 Nasal Cannula 11/19/16 07:24 98.4 122/56 11/17/16 02:08 28 Intake and Output 11/18/16 11/18/16 11/19/16 14:59 22:59 06:59 Intake Total 100 ml 900 ml 850 ml Output Total 700 ml 650 ml Balance 100 ml 200 ml 200 ml Exam HEENT exam; supple neck, no JVD. No lymphadenopathy. Midline trachea. No thyromegaly. Patient is a right corneal opacity and left intraocular lens implant. Chest exam; diminished but clear breath sounds l. S1-S2 audible, no murmurs. Regular rhythm. Abdomen exam; soft, nondistended. No organomegaly. Bowel sounds audible. Extremity exam; patient is a right below-knee in position. There are ulcerations involving the sacrum as well as left heel. [employer] exam; patient is awake alert and follows simple commands moves all 4 extremity's. Results Result Diagram: 11/19/16 0554 11/19/16 0554 Results 24 hrs Laboratory Tests Test 11/18/16 12:13 11/18/16 17:27 11/18/16 20:22 11/19/16 01:36 Bedside Glucose 203 140 240 H 203 Test 11/19/16 05:54 11/19/16 08:47 White Blood Count 10.4 Red Blood Count 3.89 L Hemoglobin 11.4 L Hematocrit 35.9 L Mean Corpuscular Volume 92.3 Mean Corpuscular Hemoglobin 29.3 Mean Corpuscular Hemoglobin Concent 31.8 L Red Cell Distribution Width 15.7 H Platelet Count 212 # Mean Platelet Volume 10.8 H Neutrophils % 53.8 Lymphocytes % 23.2 Monocytes % 9.2 Eosinophils % 7.2 H Basophils % 0.9 Nucleated Red Blood Cells % 0.0 Neutrophils # 5.6 Lymphocytes # 2.4 Monocytes # 1.0 H Eosinophils # 0.8 H Basophils # 0.1 Nucleated Red Blood Cells # 0.0 Erythrocyte Sedimentation Rate 85 H Sodium Level 150 H Potassium Level 3.4 L Chloride Level 119 H Carbon Dioxide Level 25 Anion Gap 9 Blood Urea Nitrogen 28 H Creatinine 1.16 H Glucose Level 203 Calcium Level 8.7 C-Reactive Protein 3.5 H B-Type Natriuretic Peptide 2700 H Bedside Glucose 171 Medications Medications Current Medications Miscellaneous Information 1 ea NOTE XX ; Start 11/12/16 at 08:30 Glucose (Glutose) 15 gm Q15M PRN PO DECREASED GLUCOSE; Start 11/12/16 at 08:30 Glucose (Glutose) 22.5 gm Q15M PRN PO DECREASED GLUCOSE; Start 11/12/16 at 08: 30 Dextrose (D50w Syringe) 25 ml Q15M PRN IV DECREASED GLUCOSE; Start 11/12/16 at 08:30 Dextrose (D50w Syringe) 50 ml Q15M PRN IV DECREASED GLUCOSE; Start 11/12/16 at 08:30 Glucagon (Glucagen) 1 mg Q15M PRN IM DECREASED GLUCOSE; Start 11/12/16 at 08:30 Glucose (Glutose) 15 gm Q15M PRN BUCCAL DECREASED GLUCOSE; Start 11/12/16 at 08 :30 Collagenase 1 applic 1 applic DAILY TOP Last administered on 11/18/16 13:12; Admin Dose 1 APPLIC; Start 11/16/16 at 09:00 Meropenem 100 ml @ 200 mls/hr Q12 IVPB Last administered on 11/19/16 09:16; Admin Dose 200 MLS/HR; Start 11/15/16 at 21:00 Dextrose/Sodium Chloride (D5-1/2ns) 1,000 ml @ 50 mls/hr Q20H IV Last administered on 11/19/16 09:00; Admin Dose 50 MLS/HR; Start 11/15/16 at 11:30 Insulin Glargine (Lantus) 5 unit DAILY@20 SC Last administered on 11/18/16 20: 29; Admin Dose 5 UNIT; Start 11/15/16 at 20:00 Ondansetron HCl (Zofran Inj) 4 mg Q4H PRN IV NAUSEA AND/OR VOMITING; Start at 17:00 Miscellaneous Information ([facility]) This patient jean baptiste... PRN PRN XX WOUND CARE; Start 11/15/16 at 18:30 Hydralazine HCl (Apresoline) 10 mg Q4H PRN IV ELEVATED BLOOD PRESSURE Last administered on 11/18/16 19:09; Admin Dose 10 MG; Start 11/15/16 at 20:30 Amlodipine Besylate (Norvasc) 5 mg DAILY PO Last administered on 11/18/16 08: 24; Admin Dose 5 MG; Start 11/17/16 at 09:00 Insulin Human NPH (Humulin N) 20 unit DAILY@08 SC Last administered on 09:17; Admin Dose 20 UNIT; Start 11/17/16 at 08:00 Acetaminophen (Tylenol Tab) 650 mg Q6H PRN PO PAIN AND OR ELEVATED TEMP Last administered on 11/19/16 04:43; Admin Dose 650 MG; Start 11/16/16 at 14:00 Methadone HCl 10 mg 10 mg Q8 PRN PO pain; Start 11/16/16 at 14:00; Status Future Hold Vancomycin HCl (Vancocin) 250 ml @ 125 mls/hr Q36H IVPB Last administered on 01:31; Admin Dose 125 MLS/HR; Start 11/19/16 at 00:00 Aspirin (Aspirin) 81 mg DAILY PO Last administered on 11/18/16 08:24; Admin Dose 81 MG; Start 11/18/16 at 09:00 Atorvastatin Calcium (Lipitor) 20 mg HS PO Last administered on 11/18/16 20:25 ; Admin Dose 20 MG; Start 11/17/16 at 21:00 Metoprolol Tartrate (Lopressor) 25 mg BID PO Last administered on 11/18/16 20: 24; Admin Dose 25 MG; Start 11/18/16 at 11:30 Pantoprazole (Protonix Tab) 40 mg DAILY@06 PO ; Start 11/19/16 at 06:00 Diagnostic Test (Pha) (Accu-Chek) 1 ea 02 XX ; Start 11/19/16 at 02:00 Insulin Human NPH (Humulin N) 10 unit 1730 SC Last administered on 11/18/16 17 :36; Admin Dose 10 UNIT; Start 11/18/16 at 17:30 Insulin Human NPH (Humulin N) 10 unit DAILY@20 SC Last administered on 21:00; Admin Dose 10 UNIT; Start 11/18/16 at 20:00 Enoxaparin Sodium (Lovenox) 60 mg Q24H SC Last administered on 11/18/16 20:29 ; Admin Dose 60 MG; Start 11/18/16 at 21:00 MILO CHARLES Nov 19, 2016 11:20
--- NOTE | 2016-11-19 14:08 | PN ---
Date/Time of Note Date/Time of Note DATE: 11/19/16 TIME: 13:58 Assessment/Plan VTE Prophylaxis VTE Prophylaxis Intervention: LMWH Lines/Catheters IV Catheter Type (from Nrs): Central Line Central line still needed: Yes Urinary Cath still in place: Yes Reason Cath still needed: pres ulcer contaminated by urine Assessment/Plan Assessment/Plan left axillary dvt with superficial thrombosis, possibly chronic. due to severe swellingt lovenox was increased to therapeutic dose via pharm for dvt. vascular was called aspiration pneumonia- doing well on 2 l n/c. lungs are clear. ARF resolved hypernatremia- will change ivf to d5W. on low rate. will follow. pt needs to increase po fluid intake. heel osteo on iv abx til 11/21 then plans for po cipro and doxy. its likely pt not tolerate doxy. pt when at home lost appetite and was nauseated. will discuss with ID if diff abx is avail. elevated troponin- likely due to sepsis vs ARF with cr 3.3. gi- pt is more alert and now starting to increase fluids and food. pt had bedside swallow exam 2 weeks ago and was basically normal with exception due to lack of teeth, poor chewed food. once stable goal to send pt to snf for recovery. discussed with family Subjective 24 Hr Interval Summary Free Text/Dictation more awake, sitting up, drink a little of ensure. +dvt and suberficial thrombosis of the left UE. vascular called Exam/Review of Systems Vital Signs Vitals Vital Signs Date Time Temp Pulse Resp B/P Pulse Ox O2 Delivery O2 Flow Rate FiO2 11/19/16 12:30 65 11/19/16 11:49 98.5 18 189/77 98 11/19/16 08:14 2.0 11/19/16 08:14 Nasal Cannula 11/17/16 02:08 28 Intake and Output 11/18/16 11/18/16 11/19/16 15:00 23:00 07:00 Intake Total 100 ml 900 ml 850 ml Output Total 700 ml 650 ml Balance 100 ml 200 ml 200 ml Exam right UEback to normal size. no pitting. left UE- severe pitting. approx same. no pain to palp lung cta cv rrr Results Result Diagram: 11/19/16 0554 11/19/16 0554 Results 24 hrs Laboratory Tests Test 11/18/16 17:27 11/18/16 20:22 11/19/16 01:36 11/19/16 05:54 Bedside Glucose 140 240 H 203 White Blood Count 10.4 Red Blood Count 3.89 L Hemoglobin 11.4 L Hematocrit 35.9 L Mean Corpuscular Volume 92.3 Mean Corpuscular Hemoglobin 29.3 Mean Corpuscular Hemoglobin Concent 31.8 L Red Cell Distribution Width 15.7 H Platelet Count 212 # Mean Platelet Volume 10.8 H Neutrophils % 53.8 Lymphocytes % 23.2 Monocytes % 9.2 Eosinophils % 7.2 H Basophils % 0.9 Nucleated Red Blood Cells % 0.0 Neutrophils # 5.6 Lymphocytes # 2.4 Monocytes # 1.0 H Eosinophils # 0.8 H Basophils # 0.1 Nucleated Red Blood Cells # 0.0 Erythrocyte Sedimentation Rate 85 H Sodium Level 150 H Potassium Level 3.4 L Chloride Level 119 H Carbon Dioxide Level 25 Anion Gap 9 Blood Urea Nitrogen 28 H Creatinine 1.16 H Glucose Level 203 Calcium Level 8.7 C-Reactive Protein 3.5 H B-Type Natriuretic Peptide 2700 H Test 11/19/16 08:47 11/19/16 12:33 Bedside Glucose 171 190 Medications Medications Current Medications Miscellaneous Information 1 ea NOTE XX ; Start 11/12/16 at 08:30 Glucose (Glutose) 15 gm Q15M PRN PO DECREASED GLUCOSE; Start 11/12/16 at 08:30 Glucose (Glutose) 22.5 gm Q15M PRN PO DECREASED GLUCOSE; Start 11/12/16 at 08: 30 Dextrose (D50w Syringe) 25 ml Q15M PRN IV DECREASED GLUCOSE; Start 11/12/16 at 08:30 Dextrose (D50w Syringe) 50 ml Q15M PRN IV DECREASED GLUCOSE; Start 11/12/16 at 08:30 Glucagon (Glucagen) 1 mg Q15M PRN IM DECREASED GLUCOSE; Start 11/12/16 at 08:30 Glucose (Glutose) 15 gm Q15M PRN BUCCAL DECREASED GLUCOSE; Start 11/12/16 at 08 :30 Collagenase 1 applic 1 applic DAILY TOP Last administered on 11/18/16t 13:12; Admin Dose 1 APPLIC; Start 11/16/16 at 09:00 Meropenem (Merrem 500 Mg/ 100 ml (Pmx)) 100 ml @ 200 mls/hr Q12 IVPB Last administered on 11/19/16 09:16; Admin Dose 200 MLS/HR; Start 11/15/16 at 21:00 Insulin Glargine (Lantus) 5 unit DAILY@20 SC Last administered on 11/18/16 20: 29; Admin Dose 5 UNIT; Start 11/15/16 at 20:00 Ondansetron HCl (Zofran Inj) 4 mg Q4H PRN IV NAUSEA AND/OR VOMITING; Start at 17:00 Miscellaneous Information (Pending [facility] Order For Wound Care) This patient jean baptiste... PRN PRN XX WOUND CARE; Start 11/15/16 at 18:30 Hydralazine HCl (Apresoline) 10 mg Q4H PRN IV ELEVATED BLOOD PRESSURE Last administered on 11/18/16 19:09; Admin Dose 10 MG; Start 11/15/16 at 20:30 Amlodipine Besylate (Norvasc) 5 mg DAILY PO Last administered on 11/19/16 11: 20; Admin Dose 5 MG; Start 11/17/16 at 09:00 Insulin Human NPH (Humulin N) 20 unit DAILY@08 SC Last administered on 09:17; Admin Dose 20 UNIT; Start 11/17/16 at 08:00 Acetaminophen (Tylenol Tab) 650 mg Q6H PRN PO PAIN AND OR ELEVATED TEMP Last administered on 11/19/16 11:20; Admin Dose 650 MG; Start 11/16/16 at 14:00 Methadone HCl 10 mg 10 mg Q8 PRN PO pain; Start 11/16/16 at 14:00; Status Future Hold Vancomycin HCl (Vancocin) 250 ml @ 125 mls/hr Q36H IVPB Last administered on 01:31; Admin Dose 125 MLS/HR; Start 11/19/16 at 00:00 Aspirin (Aspirin) 81 mg DAILY PO Last administered on 11/19/16 11:20; Admin Dose 81 MG; Start 11/18/16 at 09:00 Atorvastatin Calcium (Lipitor) 20 mg HS PO Last administered on 11/18/16 20:25 ; Admin Dose 20 MG; Start 11/17/16 at 21:00 Metoprolol Tartrate (Lopressor) 25 mg BID PO Last administered on 11/19/16 11: 20; Admin Dose 25 MG; Start 11/18/16 at 11:30 Pantoprazole (Protonix Tab) 40 mg DAILY@06 PO Last administered on 11/19/16 11 :20; Admin Dose 40 MG; Start 11/19/16 at 06:00 Diagnostic Test (Pha) (Accu-Chek) 1 ea 02 XX ; Start 11/19/16 at 02:00 Insulin Human NPH (Humulin N) 10 unit 1730 SC Last administered on 11/18/16 17 :36; Admin Dose 10 UNIT; Start 11/18/16 at 17:30 Insulin Human NPH (Humulin N) 10 unit DAILY@20 SC Last administered on 21:00; Admin Dose 10 UNIT; Start 11/18/16 at 20:00 Enoxaparin Sodium 60 mg 60 mg Q24H SC Last administered on 11/18/16 20:29; Admin Dose 60 MG; Start 11/18/16 at 21:00 Dextrose (D5W) 1,000 ml @ 40 mls/hr Q24H IV ; Start 11/19/16 at 14:00 RIDGE MATTHEWS MD Nov 19, 2016 14:07
[2016-11-19] MEDS ORDERED: POTASSIUM CHLORIDE 20 MEQ POWDER FOR ORAL SOLN PO ONE (14:30)
[2016-11-19] MEDS ORDERED: FUROSEMIDE 20 MG INJ IV ONE (14:30)
--- NOTE | 2016-11-19 14:30 | CONS ---
Date/Time of Note Date/Time of Note DATE: 11/19/16 TIME: 14:28 Assessment/Plan Assessment/Plan Additional Assessment/Plan Sepsis Respiratory failure status post extubation Peripheral atrial disease Encephalopathy Mildly elevated troponin Acute kidney injury Paroxysmal atrial fibrillation -Patient remains in sinus rhythm. Blood pressure trend overall remained stable with one episode of hypertension. We will continue to monitor, continue telemetry monitoring. Consultation Date/Type/Reason Admit Date/Time Nov 12, 2016 at 05:22 Initial Consult Date 11/12/16 Type of Consultation: cv 24 HR Interval Summary Free Text/Dictation Patient seen and examined. More awake as per family Exam/Review of Systems Vital Signs Vitals Vital Signs Date Time Temp Pulse Resp B/P Pulse Ox O2 Delivery O2 Flow Rate FiO2 11/19/16 14:16 66 16 98 Nasal Cannula 2.0 11/19/16 11:49 98.5 189/77 11/17/16 02:08 28 Intake and Output 11/18/16 11/18/16 11/19/16 15:00 23:00 07:00 Intake Total 100 ml 900 ml 850 ml Output Total 700 ml 650 ml Balance 100 ml 200 ml 200 ml Exam Follows commands, confused at times, no apparent distress Constitutional: alert Head: normocephalic Respiratory: other (Coarse breath sounds bilaterally, no wheezing) Cardiovascular: other (S1-S2 heard), regular rate and rhythm Gastrointestinal: bowel sounds, non-tender, soft Extremities: edema Results Result Diagram: 11/19/16 0554 11/19/16 0554 Results 24 hrs Laboratory Tests Test 11/18/16 17:27 11/18/16 20:22 11/19/16 01:36 11/19/16 05:54 Bedside Glucose 140 240 H 203 White Blood Count 10.4 Red Blood Count 3.89 L Hemoglobin 11.4 L Hematocrit 35.9 L Mean Corpuscular Volume 92.3 Mean Corpuscular Hemoglobin 29.3 Mean Corpuscular Hemoglobin Concent 31.8 L Red Cell Distribution Width 15.7 H Platelet Count 212 # Mean Platelet Volume 10.8 H Neutrophils % 53.8 Lymphocytes % 23.2 Monocytes % 9.2 Eosinophils % 7.2 H Basophils % 0.9 Nucleated Red Blood Cells % 0.0 Neutrophils # 5.6 Lymphocytes # 2.4 Monocytes # 1.0 H Eosinophils # 0.8 H Basophils # 0.1 Nucleated Red Blood Cells # 0.0 Erythrocyte Sedimentation Rate 85 H Sodium Level 150 H Potassium Level 3.4 L Chloride Level 119 H Carbon Dioxide Level 25 Anion Gap 9 Blood Urea Nitrogen 28 H Creatinine 1.16 H Glucose Level 203 Calcium Level 8.7 C-Reactive Protein 3.5 H B-Type Natriuretic Peptide 2700 H Test 11/19/16 08:47 11/19/16 12:33 Bedside Glucose 171 190 Medications Medications Current Medications Miscellaneous Information 1 ea NOTE XX ; Start 11/12/16 at 08:30 Glucose (Glutose) 15 gm Q15M PRN PO DECREASED GLUCOSE; Start 11/12/16 at 08:30 Glucose (Glutose) 22.5 gm Q15M PRN PO DECREASED GLUCOSE; Start 11/12/16 at 08: 30 Dextrose (D50w Syringe) 25 ml Q15M PRN IV DECREASED GLUCOSE; Start 11/12/16 at 08:30 Dextrose (D50w Syringe) 50 ml Q15M PRN IV DECREASED GLUCOSE; Start 11/12/16 at 08:30 Glucagon (Glucagen) 1 mg Q15M PRN IM DECREASED GLUCOSE; Start 11/12/16 at 08:30 Glucose (Glutose) 15 gm Q15M PRN BUCCAL DECREASED GLUCOSE; Start 11/12/16 at 08 :30 Collagenase 1 applic 1 applic DAILY TOP Last administered on 11/18/16 13:12; Admin Dose 1 APPLIC; Start 11/16/16 at 09:00 Meropenem (Merrem 500 Mg/ 100 ml (Pmx)) 100 ml @ 200 mls/hr Q12 IVPB Last administered on 11/19/16 09:16; Admin Dose 200 MLS/HR; Start 11/15/16 at 21:00 Insulin Glargine (Lantus) 5 unit DAILY@20 SC Last administered on 11/18/16 20: 29; Admin Dose 5 UNIT; Start 11/15/16 at 20:00 Ondansetron HCl (Zofran Inj) 4 mg Q4H PRN IV NAUSEA AND/OR VOMITING; Start at 17:00 Miscellaneous Information ([facility] This patient jean baptiste... PRN PRN XX WOUND CARE; Start 11/15/16 at 18:30 Hydralazine HCl (Apresoline) 10 mg Q4H PRN IV ELEVATED BLOOD PRESSURE Last administered on 11/18/16 19:09; Admin Dose 10 MG; Start 11/15/16 at 20:30 Amlodipine Besylate (Norvasc) 5 mg DAILY PO Last administered on 11/19/16 11: 20; Admin Dose 5 MG; Start 11/17/16 at 09:00 Insulin Human NPH (Humulin N) 20 unit DAILY@08 SC Last administered on 09:17; Admin Dose 20 UNIT; Start 11/17/16 at 08:00 Acetaminophen (Tylenol Tab) 650 mg Q6H PRN PO PAIN AND OR ELEVATED TEMP Last administered on 11/19/16 11:20; Admin Dose 650 MG; Start 11/16/16 at 14:00 Methadone HCl 10 mg 10 mg Q8 PRN PO pain; Start 11/16/16 at 14:00; Status Future Hold Vancomycin HCl (Vancocin) 250 ml @ 125 mls/hr Q36H IVPB Last administered on 01:31; Admin Dose 125 MLS/HR; Start 11/19/16 at 00:00 Aspirin (Aspirin) 81 mg DAILY PO Last administered on 11/19/16 11:20; Admin Dose 81 MG; Start 11/18/16 at 09:00 Atorvastatin Calcium (Lipitor) 20 mg HS PO Last administered on 11/18/16 20:25 ; Admin Dose 20 MG; Start 11/17/16 at 21:00 Metoprolol Tartrate (Lopressor) 25 mg BID PO Last administered on 11/19/16 11: 20; Admin Dose 25 MG; Start 11/18/16 at 11:30 Pantoprazole (Protonix Tab) 40 mg DAILY@06 PO Last administered on 11/19/16 11 :20; Admin Dose 40 MG; Start 11/19/16 at 06:00 Diagnostic Test (Pha) (Accu-Chek) 1 ea 02 XX ; Start 11/19/16 at 02:00 Insulin Human NPH (Humulin N) 10 unit 1730 SC Last administered on 11/18/16 17 :36; Admin Dose 10 UNIT; Start 11/18/16 at 17:30 Insulin Human NPH (Humulin N) 10 unit DAILY@20 SC Last administered on 21:00; Admin Dose 10 UNIT; Start 11/18/16 at 20:00 Enoxaparin Sodium 60 mg 60 mg Q24H SC Last administered on 11/18/16t 20:29; Admin Dose 60 MG; Start 11/18/16 at 21:00 Dextrose (D5W) 1,000 ml @ 40 mls/hr Q24H IV ; Start 11/19/16 at 14:00 Furosemide (Lasix) 10 mg ONCE ONCE IV ; Start 11/19/16 at 14:30; Stop 11/19/16 at 14:31 Tucker Jacome DO Nov 19, 2016 14:30
[2016-11-19] MEDS: DEXTROSE 5% 1,000 ML IV SCH (14:53)
[2016-11-19] MEDS ORDERED: POTASSIUM CHLORIDE 250 ML IVPB ONE (17:30)
[2016-11-19] MEDS: ATORVASTATIN 20 MG TAB PO SCH (21:41)
[2016-11-19] MEDS: ENOXAPARIN 60 MG/0.6 ML SYG SC SCH (22:10)
[2016-11-20] VITALS (11 sets, daily range): BP systolic 106–185; BP diastolic 48–77; PULSE 66–75; RESP 18–19
[2016-11-20] MEDS: IPRATROPIUM (NEB) 0.5 MG/2.5 ML AMP HHN SCH ×4 (01:42→20:24)
[2016-11-20] MEDS: LEVALBUTEROL (NEB) 0.63 MG/3 ML AMP HHN SCH ×4 (01:42→20:24)
[2016-11-20] MEDS: ACCUCHECK AT 2AM (Patients on SS coverage) XX SCH (02:00)
[2016-11-20] MEDS: PANTOPRAZOLE (EC) 40 MG TAB PO SCH (06:00)
[2016-11-20 06:17] LABS: BASOPHIL # 0.1 10^3/ul (0.0-0.1); BASOPHILS % 0.6 % (0.0-2.0); EOSINOPHILS # 0.6 10^3/ul (0.0-0.5); EOSINOPHILS % 5.4 % (0.0-7.0); HEMATOCRIT 34.8 % (37.0-47.0); HEMOGLOBIN 11.3 g/dl (12.0-16.0); LYMPHOCYTES # 2.9 10^3/ul (0.8-2.9); LYMPHOCYTES % 25.7 % (15.0-51.0); MEAN CORPUSCULAR HEMOGLOBIN 29.7 pg (29.0-33.0); MEAN CORPUSCULAR HGB CONC 32.5 g/dl (32.0-37.0); MEAN CORPUSCULAR VOLUME 91.3 fl (82.0-101.0); MEAN PLATELET VOLUME 10.6 fl (7.4-10.4); MONOCYTE # 0.9 10^3/ul (0.3-0.9); NEUTROPHIL # 6.4 10^3/ul (1.6-7.5); NEUTROPHILS % 55.7 % (39.0-77.0); PLATELET COUNT 239 10^3/UL (140-415); RED BLOOD COUNT 3.81 10^6/ul (4.20-5.40); RED CELL DISTRIBUTION WIDTH 15.5 % (11.5-14.5); WHITE BLOOD COUNT 11.4 10^3/ul (4.8-10.8)
--- NOTE | 2016-11-20 06:38 | CONS ---
Date/Time of Note Date/Time of Note DATE: 11/20/16 TIME: 06:34 Assessment/Plan Assessment/Plan Chief Complaint/Hosp Course 1) asp pneumonia continue with vanco/merrem to cover resistant organisms 11/13 - sputum cx ordered no change 11/16 - sputum cx never sent off continue with vanco/merrem for 8-10 day course 11/18 - wbc is improved, continue vanco/merrem thru 11/21 then change back to po cipro/doxy thru 12/11 11/20 - wbc is back to normal, if it remains normal will change to cipro/doxy tomorrow 2) pyuria and possible UTI await maturation of urine cx 11/13 - urine cx is pending 11/16 - urine cx was negative for bacteria, just yeast 3) L heal osteo s/p debridement about a week ago merrem will cover the kleb that was there before repeat wound cx 11/13 - wound cx is pending 11/13 - wound cx did not grow any aggressive bacteria 11/18 - will change back to cipro/doxy when done with iv antibiotics check esr, crp in a.m. 11/20 - both crp and esr were higher but this may be related to her pneumonia will re-check next week will change to cipro/doxy soon and continue these thru 12/11 4) PVD no reversible stenosis found to LLE 5) GPR in blood cx (bacillus species) 11/13 - this likely is a contaminant repeat blood cx this a.m. 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 Problems: Consultation Date/Type/Reason Admit Date/Time Nov 12, 2016 at 05:22 Initial Consult Date 11/12/16 Type of Consultation: ID 24 HR Interval Summary Free Text/Dictation spoke to family if room minimal cough overnight no N, V, D Exam/Review of Systems Vital Signs Vitals Vital Signs Date Time Temp Pulse Resp B/P Pulse Ox O2 Delivery O2 Flow Rate FiO2 11/20/16 04:03 73 11/20/16 04:00 98.8 18 106/48 97 11/20/16 01:42 Nasal Cannula 2.0 11/17/16 02:08 28 Exam Constitutional: alert ENMT: mucosa pink and moist Respiratory: clear to auscultation Cardiovascular: regular rate and rhythm Gastrointestinal: non-tender, soft Extremities: other (L heal is bandaged) Results Result Diagram: 11/19/16 0554 11/19/16 0554 Results 24 hrs Laboratory Tests Test 11/19/16 08:47 11/19/16 12:33 11/19/16 17:53 11/19/16 21:40 Bedside Glucose 171 190 227 H 165 Medications Medications Current Medications Miscellaneous Information 1 ea NOTE XX ; Start 11/12/16 at 08:30 Glucose (Glutose) 15 gm Q15M PRN PO DECREASED GLUCOSE; Start 11/12/16 at 08:30 Glucose (Glutose) 22.5 gm Q15M PRN PO DECREASED GLUCOSE; Start 11/12/16 at 08: 30 Dextrose (D50w Syringe) 25 ml Q15M PRN IV DECREASED GLUCOSE; Start 11/12/16 at 08:30 Dextrose (D50w Syringe) 50 ml Q15M PRN IV DECREASED GLUCOSE; Start 11/12/16 at 08:30 Glucagon (Glucagen) 1 mg Q15M PRN IM DECREASED GLUCOSE; Start 11/12/16 at 08:30 Glucose (Glutose) 15 gm Q15M PRN BUCCAL DECREASED GLUCOSE; Start 11/12/16 at 08 :30 Collagenase 1 applic 1 applic DAILY TOP Last administered on 11/18/16 13:12; Admin Dose 1 APPLIC; Start 11/16/16 at 09:00 Meropenem (Merrem 500 Mg/ 100 ml (Pmx)) 100 ml @ 200 mls/hr Q12 IVPB Last administered on 11/19/16 21:35; Admin Dose 200 MLS/HR; Start 11/15/16 at 21:00 Ondansetron HCl (Zofran Inj) 4 mg Q4H PRN IV NAUSEA AND/OR VOMITING; Start at 17:00 Miscellaneous Information (Pending [facility] Order For Wound Care) This patient jean baptiste... PRN PRN XX WOUND CARE; Start 11/15/16 at 18:30 Hydralazine HCl (Apresoline) 10 mg Q4H PRN IV ELEVATED BLOOD PRESSURE Last administered on 11/18/16 19:09; Admin Dose 10 MG; Start 11/15/16 at 20:30 Amlodipine Besylate (Norvasc) 5 mg DAILY PO Last administered on 11/19/16 11: 20; Admin Dose 5 MG; Start 11/17/16 at 09:00 Insulin Human NPH (Humulin N) 20 unit DAILY@08 SC Last administered on 09:17; Admin Dose 20 UNIT; Start 11/17/16 at 08:00 Acetaminophen (Tylenol Tab) 650 mg Q6H PRN PO PAIN AND OR ELEVATED TEMP Last administered on 11/19/16 11:20; Admin Dose 650 MG; Start 11/16/16 at 14:00 Methadone HCl 10 mg 10 mg Q8 PRN PO pain; Start 11/16/16 at 14:00; Status Future Hold Vancomycin HCl (Vancocin) 250 ml @ 125 mls/hr Q36H IVPB Last administered on 01:31; Admin Dose 125 MLS/HR; Start 11/19/16 at 00:00 Aspirin (Aspirin) 81 mg DAILY PO Last administered on 11/19/16 11:20; Admin Dose 81 MG; Start 11/18/16 at 09:00 Atorvastatin Calcium (Lipitor) 20 mg HS PO Last administered on 11/19/16 21:41 ; Admin Dose 20 MG; Start 11/17/16 at 21:00 Metoprolol Tartrate (Lopressor) 25 mg BID PO Last administered on 11/19/16 21: 42; Admin Dose 25 MG; Start 11/18/16 at 11:30 Pantoprazole (Protonix Tab) 40 mg DAILY@06 PO Last administered on 11/19/16 11 :20; Admin Dose 40 MG; Start 11/19/16 at 06:00 Diagnostic Test (Pha) (Accu-Chek) 1 ea 02 XX ; Start 11/19/16 at 02:00 Enoxaparin Sodium 60 mg 60 mg Q24H SC Last administered on 11/19/16 22:10; Admin Dose 60 MG; Start 11/18/16 at 21:00 Dextrose (D5W) 1,000 ml @ 40 mls/hr Q24H IV Last administered on 11/19/16 14: 53; Admin Dose 40 MLS/HR; Start 11/19/16 at 14:00 Insulin Human NPH (Humulin N) 20 unit DAILY@20 SC Last administered on 6/29/ 17at 21:44; Admin Dose 20 UNIT; Start 11/19/16 at 20:00 ANTHONY WOODARD MD Nov 20, 2016 06:38
[2016-11-20 06:57] LABS: ALBUMIN 2.8 g/dl (3.3-4.9); ALBUMIN/GLOBULIN RATIO 0.9; BILIRUBIN,INDIRECT 0.3 mg/dl (0-1.1); BILIRUBIN,TOTAL 0.3 mg/dl (0.2-1.3); CALCIUM 8.6 mg/dl (8.4-10.2); CREATININE 1.15 mg/dl (0.44-1.00); POTASSIUM 3.9 mmol/L (3.5-5.1); TOTAL PROTEIN 5.9 g/dl (6.1-8.1)
[2016-11-20 07:14] LABS: ADD SCAN DIFF NO
[2016-11-20] MEDS: Insulin NOVOLOG SS MILD Algorithm (SS with meals and bedtime) SC SCH ×4 (07:25→21:00)
--- NOTE | 2016-11-20 08:43 | PN ---
Date/Time of Note Date/Time of Note DATE: 11/20/16 TIME: 08:36 Assessment/Plan VTE Prophylaxis VTE Prophylaxis Intervention: other Lines/Catheters IV Catheter Type (from Nrs): Central Line Central line still needed: Yes Urinary Cath still in place: Yes Reason Cath still needed: pres ulcer contaminated by urine Assessment/Plan Assessment/Plan Assessment/Plan left axillary dvt with superficial thrombosis, possibly chronic. due to severe swelling lovenox was increased to therapeutic dose via pharm for dvt. vascular was called. will recall. aspiration pneumonia- doing well on 2 l n/c. lungs are clear. ARF resolved hypernatremia- will change ivf to d5W. on low rate. will follow. pt needs to increase po fluid intake. once ngt feeding then will d/c iv and consult dietary. heel osteo on iv abx til 11/21 then plans for po cipro and doxy. its likely pt not tolerate doxy. pt when at home lost appetite and was nauseated. will discuss with ID if diff abx is avail. elevated troponin- likely due to sepsis vs ARF with cr 3.3. gi- pt is more alert and now starting to increase fluids and food. pt had bedside swallow exam 2 weeks ago and was basically normal with exception due to lack of teeth, poor chewed food. will place ngt and start feeding until pt able to do on own. dm will cont to increase nph as necessary. lantus comb not covered. once stable goal to send pt to snf for recovery. discussed with family Subjective 24 Hr Interval Summary Free Text/Dictation arousible . no acute changes. Exam/Review of Systems Vital Signs Vitals Vital Signs Date Time Temp Pulse Resp B/P Pulse Ox O2 Delivery O2 Flow Rate FiO2 11/20/16 08:18 72 20 98 Nasal Cannula 2.0 11/20/16 07:41 98.4 138/62 11/17/16 02:08 28 Intake and Output 11/19/16 11/19/16 11/20/16 15:00 23:00 07:00 Intake Total 100 ml 640 ml Output Total 900 ml Balance 100 ml -260 ml Exam left UE mild improvement. still 3+ pitting and warm. Results Result Diagram: 11/20/16 0506 11/20/16 0547 Results 24 hrs Laboratory Tests Test 11/19/16 08:47 11/19/16 12:33 11/19/16 17:53 11/19/16 21:40 Bedside Glucose 171 190 227 H 165 Test 11/20/16 05:06 11/20/16 05:47 White Blood Count 11.4 H Red Blood Count 3.81 L Hemoglobin 11.3 L Hematocrit 34.8 L Mean Corpuscular Volume 91.3 Mean Corpuscular Hemoglobin 29.7 Mean Corpuscular Hemoglobin Concent 32.5 Red Cell Distribution Width 15.5 H Platelet Count 239 Mean Platelet Volume 10.6 H Neutrophils % 55.7 Lymphocytes % 25.7 Monocytes % 8.0 Eosinophils % 5.4 Basophils % 0.6 Nucleated Red Blood Cells % 0.0 Neutrophils # 6.4 Lymphocytes # 2.9 Monocytes # 0.9 Eosinophils # 0.6 H Basophils # 0.1 Nucleated Red Blood Cells # 0.0 Sodium Level 149 H Potassium Level 3.9 Chloride Level 117 H Carbon Dioxide Level 27 Anion Gap 9 Blood Urea Nitrogen 24 H Creatinine 1.15 H Glucose Level 117 # Calcium Level 8.6 Total Bilirubin 0.3 Direct Bilirubin 0.00 Indirect Bilirubin 0.3 Aspartate Amino Transf (AST/SGOT) 55 H Alanine Aminotransferase (ALT/SGPT) 63 Alkaline Phosphatase 91 Total Protein 5.9 L Albumin 2.8 L Globulin 3.10 Albumin/Globulin Ratio 0.90 Medications Medications Current Medications Miscellaneous Information 1 ea NOTE XX ; Start 11/12/16 at 08:30 Glucose (Glutose) 15 gm Q15M PRN PO DECREASED GLUCOSE; Start 11/12/16 at 08:30 Glucose (Glutose) 22.5 gm Q15M PRN PO DECREASED GLUCOSE; Start 11/12/16 at 08: 30 Dextrose (D50w Syringe) 25 ml Q15M PRN IV DECREASED GLUCOSE; Start 11/12/16 at 08:30 Dextrose (D50w Syringe) 50 ml Q15M PRN IV DECREASED GLUCOSE; Start 11/12/16 at 08:30 Glucagon (Glucagen) 1 mg Q15M PRN IM DECREASED GLUCOSE; Start 11/12/16 at 08:30 Glucose (Glutose) 15 gm Q15M PRN BUCCAL DECREASED GLUCOSE; Start 11/12/16 at 08 :30 Collagenase 1 applic 1 applic DAILY TOP Last administered on 11/18/16t 13:12; Admin Dose 1 APPLIC; Start 11/16/16 at 09:00 Meropenem (Merrem 500 Mg/ 100 ml (Pmx)) 100 ml @ 200 mls/hr Q12 IVPB Last administered on 11/19/16 21:35; Admin Dose 200 MLS/HR; Start 11/15/16 at 21:00 Ondansetron HCl (Zofran Inj) 4 mg Q4H PRN IV NAUSEA AND/OR VOMITING; Start at 17:00 Miscellaneous Information ([facility] This patient jean baptiste... PRN PRN XX WOUND CARE; Start 11/15/16 at 18:30 Hydralazine HCl (Apresoline) 10 mg Q4H PRN IV ELEVATED BLOOD PRESSURE Last administered on 11/18/16 19:09; Admin Dose 10 MG; Start 11/15/16 at 20:30 Amlodipine Besylate (Norvasc) 5 mg DAILY PO Last administered on 11/19/16 11: 20; Admin Dose 5 MG; Start 11/17/16 at 09:00 Insulin Human NPH (Humulin N) 20 unit DAILY@08 SC Last administered on 09:17; Admin Dose 20 UNIT; Start 11/17/16 at 08:00 Acetaminophen (Tylenol Tab) 650 mg Q6H PRN PO PAIN AND OR ELEVATED TEMP Last administered on 11/19/16 11:20; Admin Dose 650 MG; Start 11/16/16 at 14:00 Methadone HCl 10 mg 10 mg Q8 PRN PO pain; Start 11/16/16 at 14:00; Status Future Hold Vancomycin HCl (Vancocin) 250 ml @ 125 mls/hr Q36H IVPB Last administered on 01:31; Admin Dose 125 MLS/HR; Start 11/19/16 at 00:00 Aspirin (Aspirin) 81 mg DAILY PO Last administered on 11/19/16 11:20; Admin Dose 81 MG; Start 11/18/16 at 09:00 Atorvastatin Calcium (Lipitor) 20 mg HS PO Last administered on 11/19/16 21:41 ; Admin Dose 20 MG; Start 11/17/16 at 21:00 Metoprolol Tartrate (Lopressor) 25 mg BID PO Last administered on 11/19/16 21: 42; Admin Dose 25 MG; Start 11/18/16 at 11:30 Pantoprazole (Protonix Tab) 40 mg DAILY@06 PO Last administered on 11/19/16 11 :20; Admin Dose 40 MG; Start 11/19/16 at 06:00 Diagnostic Test (Pha) (Accu-Chek) 1 ea 02 XX ; Start 11/19/16 at 02:00 Enoxaparin Sodium 60 mg 60 mg Q24H SC Last administered on 11/19/16 22:10; Admin Dose 60 MG; Start 11/18/16 at 21:00 Dextrose (D5W) 1,000 ml @ 40 mls/hr Q24H IV Last administered on 11/19/16 14: 53; Admin Dose 40 MLS/HR; Start 11/19/16 at 14:00 Insulin Human NPH (Humulin N) 20 unit DAILY@20 SC Last administered on 21:44; Admin Dose 20 UNIT; Start 11/19/16 at 20:00 Losartan Potassium (Cozaar) 100 mg DAILY PO ; Start 11/20/16 at 09:00 RIDGE MATTHEWS MD Nov 20, 2016 08:43
[2016-11-20] MEDS: NPH, HUMAN INSULIN ISOPHANE 3ML VIAL SC SCH ×2 (08:55→21:09)
[2016-11-20] MEDS: MEROPENEM 500 MG/100 ML (PMX) 100 ML IVPB SCH ×2 (08:56→21:06)
[2016-11-20] MEDS: COLLAGENASE 30 GM TUBE TOP SCH (09:00)
--- NOTE | 2016-11-20 10:10 | CONS ---
Date/Time of Note Date/Time of Note DATE: 11/20/16 TIME: 10:08 Assessment/Plan Assessment/Plan Additional Assessment/Plan Assessment recommendations; 1. Patient admitted with severe sepsis due to UTI with marked renal insufficiency and pre-renal azotemia status post extubation with normalization of renal function as well as correction of electrolyte imbalance. 2. History of peripheral vascular disease. 3. Sacral and left heel decubitus ulcers. Continue current treatment. Consultation Date/Type/Reason Admit Date/Time Nov 12, 2016 at 05:22 Initial Consult Date 11/12/16 Type of Consultation: Pulmonary 24 HR Interval Summary Free Text/Dictation Patient condition stable. Remains awake alert. Has remained hemodynamically stable. General exam; elderly woman, awake , currently in no distress. Exam/Review of Systems Vital Signs Vitals Vital Signs Date Time Temp Pulse Resp B/P Pulse Ox O2 Delivery O2 Flow Rate FiO2 11/20/16 08:18 72 20 98 Nasal Cannula 2.0 11/20/16 07:41 98.4 138/62 11/17/16 02:08 28 Intake and Output 11/19/16 11/19/16 11/20/16 15:00 23:00 07:00 Intake Total 100 ml 640 ml Output Total 900 ml Balance 100 ml -260 ml Exam HEENT exam; supple neck, no JVD. No lymphadenopathy. Midline trachea. No thyromegaly. Patient is right corneal opacity and a left intraocular lens implant. Patient is edentulous. Chest exam; diminished but clear breath sound. S1-S2 audible, no murmurs. Regular rhythm. Abdomen exam; soft, scaphoid. Nontender. No organomegaly. Bowel sounds audible. 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 There are ulcerations involving the sacrum and left heel. HEENT exam; patient is awake and follows simple commands. Results Result Diagram: 11/20/16 0506 11/20/16 0547 Results 24 hrs Laboratory Tests Test 11/19/16 12:33 11/19/16 17:53 11/19/16 21:40 11/20/16 05:06 Bedside Glucose 190 227 H 165 White Blood Count 11.4 H Red Blood Count 3.81 L Hemoglobin 11.3 L Hematocrit 34.8 L Mean Corpuscular Volume 91.3 Mean Corpuscular Hemoglobin 29.7 Mean Corpuscular Hemoglobin Concent 32.5 Red Cell Distribution Width 15.5 H Platelet Count 239 Mean Platelet Volume 10.6 H Neutrophils % 55.7 Lymphocytes % 25.7 Monocytes % 8.0 Eosinophils % 5.4 Basophils % 0.6 Nucleated Red Blood Cells % 0.0 Neutrophils # 6.4 Lymphocytes # 2.9 Monocytes # 0.9 Eosinophils # 0.6 H Basophils # 0.1 Nucleated Red Blood Cells # 0.0 Test 11/20/16 05:47 11/20/16 08:19 Sodium Level 149 H Potassium Level 3.9 Chloride Level 117 H Carbon Dioxide Level 27 Anion Gap 9 Blood Urea Nitrogen 24 H Creatinine 1.15 H Glucose Level 117 # Calcium Level 8.6 Total Bilirubin 0.3 Direct Bilirubin 0.00 Indirect Bilirubin 0.3 Aspartate Amino Transf (AST/SGOT) 55 H Alanine Aminotransferase (ALT/SGPT) 63 Alkaline Phosphatase 91 Total Protein 5.9 L Albumin 2.8 L Globulin 3.10 Albumin/Globulin Ratio 0.90 Bedside Glucose 113 Medications Medications Current Medications Miscellaneous Information 1 ea NOTE XX ; Start 11/12/16 at 08:30 Glucose (Glutose) 15 gm Q15M PRN PO DECREASED GLUCOSE; Start 11/12/16 at 08:30 Glucose (Glutose) 22.5 gm Q15M PRN PO DECREASED GLUCOSE; Start 11/12/16 at 08: 30 Dextrose (D50w Syringe) 25 ml Q15M PRN IV DECREASED GLUCOSE; Start 11/12/16 at 08:30 Dextrose (D50w Syringe) 50 ml Q15M PRN IV DECREASED GLUCOSE; Start 11/12/16 at 08:30 Glucagon (Glucagen) 1 mg Q15M PRN IM DECREASED GLUCOSE; Start 11/12/16 at 08:30 Glucose (Glutose) 15 gm Q15M PRN BUCCAL DECREASED GLUCOSE; Start 11/12/16 at 08 :30 Collagenase 1 applic 1 applic DAILY TOP Last administered on 11/18/16 13:12; Admin Dose 1 APPLIC; Start 11/16/16 at 09:00 Meropenem (Merrem 500 Mg/ 100 ml (Pmx)) 100 ml @ 200 mls/hr Q12 IVPB Last administered on 11/20/16 08:56; Admin Dose 200 MLS/HR; Start 11/15/16 at 21:00 Ondansetron HCl (Zofran Inj) 4 mg Q4H PRN IV NAUSEA AND/OR VOMITING; Start at 17:00 Miscellaneous Information (Pending [facility] Order For Wound Care) This patient jean baptiste... PRN PRN XX WOUND CARE; Start 11/15/16 at 18:30 Hydralazine HCl (Apresoline) 10 mg Q4H PRN IV ELEVATED BLOOD PRESSURE Last administered on 11/18/16 19:09; Admin Dose 10 MG; Start 11/15/16 at 20:30 Amlodipine Besylate (Norvasc) 5 mg DAILY PO Last administered on 11/19/16 11: 20; Admin Dose 5 MG; Start 11/17/16 at 09:00 Acetaminophen (Tylenol Tab) 650 mg Q6H PRN PO PAIN AND OR ELEVATED TEMP Last administered on 11/19/16 11:20; Admin Dose 650 MG; Start 11/16/16 at 14:00 Methadone HCl 10 mg 10 mg Q8 PRN PO pain; Start 11/16/16 at 14:00; Status Future Hold Vancomycin HCl (Vancocin) 250 ml @ 125 mls/hr Q36H IVPB Last administered on 01:31; Admin Dose 125 MLS/HR; Start 11/19/16 at 00:00 Aspirin (Aspirin) 81 mg DAILY PO Last administered on 11/19/16 11:20; Admin Dose 81 MG; Start 11/18/16 at 09:00 Atorvastatin Calcium (Lipitor) 20 mg HS PO Last administered on 11/19/16 21:41 ; Admin Dose 20 MG; Start 11/17/16 at 21:00 Metoprolol Tartrate (Lopressor) 25 mg BID PO Last administered on 11/19/16 21: 42; Admin Dose 25 MG; Start 11/18/16 at 11:30 Pantoprazole (Protonix Tab) 40 mg DAILY@06 PO Last administered on 11/19/16 11 :20; Admin Dose 40 MG; Start 11/19/16 at 06:00 Diagnostic Test (Pha) (Accu-Chek) 1 ea 02 XX ; Start 11/19/16 at 02:00 Enoxaparin Sodium 60 mg 60 mg Q24H SC Last administered on 11/19/16 22:10; Admin Dose 60 MG; Start 11/18/16 at 21:00 Dextrose (D5W) 1,000 ml @ 40 mls/hr Q24H IV Last administered on 11/19/16 14: 53; Admin Dose 40 MLS/HR; Start 11/19/16 at 14:00 Insulin Human NPH (Humulin N) 20 unit DAILY@20 SC Last administered on 21:44; Admin Dose 20 UNIT; Start 11/19/16 at 20:00 Losartan Potassium (Cozaar) 100 mg DAILY PO ; Start 11/20/16 at 09:00 Insulin Human NPH (Humulin N) 25 unit DAILY@08 SC Last administered on 08:55; Admin Dose 25 UNIT; Start 11/20/16 at 08:00 MILO CHARLES Nov 20, 2016 10:10
--- NOTE | 2016-11-20 10:49 | RADRPT ---
PROCEDURE: XR Chest 1 View. CLINICAL INDICATION: Status post nasogastric tube placement. TECHNIQUE: AP view of the chest was obtained. COMPARISON: November 14, 2016 FINDINGS: The heart size is within normal limits. Calcified atherosclerosis is noted in the aorta. Nasogastri c tube has its distal end in the expected location of the stomach. Endotracheal tube has been remov ed. Right-sided central line is unchanged. Scattered atelectasis is noted in the bilateral lower l obes. No consolidations are identified. No pneumothorax is seen. Osseous structures are intact. IMPRESSION: Calcified atherosclerosis in the aorta. Nasogastric tube with its distal end in the expected location of the stomach. Scattered atelectasis in the bilateral lower lobes. RPTAT: AA .Norberto Castro MD, Date Time Electronically viewed and signed by .Norberto Castro MD, on 11/20/2016 10:48 .P/
[2016-11-20] MEDS: ASPIRIN 81 MG TAB PO SCH (11:27)
[2016-11-20] MEDS: AMLODIPINE 5 MG TAB PO SCH (11:27)
[2016-11-20] MEDS: METOPROLOL 25 MG TAB PO SCH ×2 (11:28→21:06)
[2016-11-20] MEDS: LOSARTAN 50 MG TAB PO SCH (11:29)
--- NOTE | 2016-11-20 11:53 | CONS ---
Date/Time of Note Date/Time of Note DATE: 11/20/16 TIME: 11:51 Assessment/Plan Assessment/Plan Additional Assessment/Plan Sepsis Respiratory failure status post extubation Peripheral atrial disease Encephalopathy Mildly elevated troponin Acute kidney injury Paroxysmal atrial fibrillation -Patient remains in sinus rhythm. Patient started on losartan. Monitor blood pressure trend and if needed, could increase dose of Norvasc. Consultation Date/Type/Reason Admit Date/Time Nov 12, 2016 at 05:22 Initial Consult Date 11/12/16 Type of Consultation: cv 24 HR Interval Summary Free Text/Dictation Patient seen and examined Exam/Review of Systems Vital Signs Vitals Vital Signs Date Time Temp Pulse Resp B/P Pulse Ox O2 Delivery O2 Flow Rate FiO2 11/20/16 11:16 98.3 76 18 185/77 97 11/20/16 08:18 Nasal Cannula 2.0 11/17/16 02:08 28 Intake and Output 11/19/16 11/19/16 11/20/16 15:00 23:00 07:00 Intake Total 100 ml 640 ml Output Total 900 ml Balance 100 ml -260 ml Exam Sleeping, no apparent distress Head: normocephalic Respiratory: other (Coarse breath sounds bilaterally, no wheezing) Cardiovascular: other (S1-S2 heard), regular rate and rhythm Gastrointestinal: bowel sounds, non-tender, soft Extremities: edema Results Result Diagram: 11/20/16 0506 11/20/16 0547 Results 24 hrs Laboratory Tests Test 11/19/16 12:33 11/19/16 17:53 11/19/16 21:40 11/20/16 05:06 Bedside Glucose 190 227 H 165 White Blood Count 11.4 H Red Blood Count 3.81 L Hemoglobin 11.3 L Hematocrit 34.8 L Mean Corpuscular Volume 91.3 Mean Corpuscular Hemoglobin 29.7 Mean Corpuscular Hemoglobin Concent 32.5 Red Cell Distribution Width 15.5 H Platelet Count 239 Mean Platelet Volume 10.6 H Neutrophils % 55.7 Lymphocytes % 25.7 Monocytes % 8.0 Eosinophils % 5.4 Basophils % 0.6 Nucleated Red Blood Cells % 0.0 Neutrophils # 6.4 Lymphocytes # 2.9 Monocytes # 0.9 Eosinophils # 0.6 H Basophils # 0.1 Nucleated Red Blood Cells # 0.0 Test 11/20/16 05:47 11/20/16 08:19 Sodium Level 149 H Potassium Level 3.9 Chloride Level 117 H Carbon Dioxide Level 27 Anion Gap 9 Blood Urea Nitrogen 24 H Creatinine 1.15 H Glucose Level 117 # Calcium Level 8.6 Total Bilirubin 0.3 Direct Bilirubin 0.00 Indirect Bilirubin 0.3 Aspartate Amino Transf (AST/SGOT) 55 H Alanine Aminotransferase (ALT/SGPT) 63 Alkaline Phosphatase 91 Total Protein 5.9 L Albumin 2.8 L Globulin 3.10 Albumin/Globulin Ratio 0.90 Bedside Glucose 113 Medications Medications Current Medications Miscellaneous Information 1 ea NOTE XX ; Start 11/12/16 at 08:30 Glucose (Glutose) 15 gm Q15M PRN PO DECREASED GLUCOSE; Start 11/12/16 at 08:30 Glucose (Glutose) 22.5 gm Q15M PRN PO DECREASED GLUCOSE; Start 11/12/16 at 08: 30 Dextrose (D50w Syringe) 25 ml Q15M PRN IV DECREASED GLUCOSE; Start 11/12/16 at 08:30 Dextrose (D50w Syringe) 50 ml Q15M PRN IV DECREASED GLUCOSE; Start 11/12/16 at 08:30 Glucagon (Glucagen) 1 mg Q15M PRN IM DECREASED GLUCOSE; Start 11/12/16 at 08:30 Glucose (Glutose) 15 gm Q15M PRN BUCCAL DECREASED GLUCOSE; Start 11/12/16 at 08 :30 Collagenase 1 applic 1 applic DAILY TOP Last administered on 11/18/16 13:12; Admin Dose 1 APPLIC; Start 11/16/16 at 09:00 Meropenem (Merrem 500 Mg/ 100 ml (Pmx)) 100 ml @ 200 mls/hr Q12 IVPB Last administered on 11/20/16 08:56; Admin Dose 200 MLS/HR; Start 11/15/16 at 21:00 Ondansetron HCl (Zofran Inj) 4 mg Q4H PRN IV NAUSEA AND/OR VOMITING; Start at 17:00 Miscellaneous Information (Pending [facility] Order For Wound Care) This patient jean baptiste... PRN PRN XX WOUND CARE; Start 11/15/16 at 18:30 Hydralazine HCl (Apresoline) 10 mg Q4H PRN IV ELEVATED BLOOD PRESSURE Last administered on 11/18/16 19:09; Admin Dose 10 MG; Start 11/15/16 at 20:30 Amlodipine Besylate (Norvasc) 5 mg DAILY PO Last administered on 11/20/16 11: 27; Admin Dose 5 MG; Start 11/17/16 at 09:00 Acetaminophen (Tylenol Tab) 650 mg Q6H PRN PO PAIN AND OR ELEVATED TEMP Last administered on 11/19/16 11:20; Admin Dose 650 MG; Start 11/16/16 at 14:00 Methadone HCl 10 mg 10 mg Q8 PRN PO pain; Start 11/16/16 at 14:00; Status Future Hold Vancomycin HCl (Vancocin) 250 ml @ 125 mls/hr Q36H IVPB Last administered on 01:31; Admin Dose 125 MLS/HR; Start 11/19/16 at 00:00 Aspirin (Aspirin) 81 mg DAILY PO Last administered on 11/20/16 11:27; Admin Dose 81 MG; Start 11/18/16 at 09:00 Atorvastatin Calcium (Lipitor) 20 mg HS PO Last administered on 11/19/16 21:41 ; Admin Dose 20 MG; Start 11/17/16 at 21:00 Metoprolol Tartrate (Lopressor) 25 mg BID PO Last administered on 11/20/16 11: 28; Admin Dose 25 MG; Start 11/18/16 at 11:30 Pantoprazole (Protonix Tab) 40 mg DAILY@06 PO Last administered on 11/19/16 11 :20; Admin Dose 40 MG; Start 11/19/16 at 06:00 Diagnostic Test (Pha) (Accu-Chek) 1 ea 02 XX ; Start 11/19/16 at 02:00 Enoxaparin Sodium 60 mg 60 mg Q24H SC Last administered on 11/19/16 22:10; Admin Dose 60 MG; Start 11/18/16 at 21:00 Dextrose (D5W) 1,000 ml @ 40 mls/hr Q24H IV Last administered on 11/19/16 14: 53; Admin Dose 40 MLS/HR; Start 11/19/16 at 14:00 Insulin Human NPH (Humulin N) 20 unit DAILY@20 SC Last administered on 21:44; Admin Dose 20 UNIT; Start 11/19/16 at 20:00 Losartan Potassium (Cozaar) 100 mg DAILY PO Last administered on 11/20/16 11: 29; Admin Dose 100 MG; Start 11/20/16 at 09:00 Insulin Human NPH (Humulin N) 25 unit DAILY@08 SC Last administered on 08:55; Admin Dose 25 UNIT; Start 11/20/16 at 08:00 Tucker Jacome DO Nov 20, 2016 11:52
--- NOTE | 2016-11-20 11:57 | CONS ---
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 However, recommend management with anticoagulation as it is unclear when she had developed the findings and whether or not she was treated for this. Speaking with the family no management was reported prior to her hospitalization. -Left basilic vein thrombophlebitis: recommend management with elevation and warm compressor as needed for comfort. 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 Would recommend obtaining arterial duplex and evaluate for adequate infrainguinal perfusion -Optimize vascular status (BP meds, cholesterol, antiplatelets, sugar control, exercise) -Discussed findings, plan and management with the patient and he understands -Thank you for allowing us to partake in the care of your patient, please call with any questions Problems: Consultation Date/Type/Reason Admit Date/Time Nov 12, 2016 at 05:22 Social History Smoking Status: Never smoker Exam/Review of Systems Vital Signs Vitals Vital Signs Date Time Temp Pulse Resp B/P Pulse Ox O2 Delivery O2 Flow Rate FiO2 11/20/16 11:16 98.3 76 18 185/77 97 11/20/16 08:18 Nasal Cannula 2.0 11/17/16 02:08 28 Intake and Output 11/19/16 11/19/16 11/20/16 15:00 23:00 07:00 Intake Total 100 ml 640 ml Output Total 900 ml Balance 100 ml -260 ml Results Result Diagram: 11/20/16 0506 11/20/16 0547 Results 24 hrs Laboratory Tests Test 11/19/16 12:33 11/19/16 17:53 11/19/16 21:40 11/20/16 05:06 Bedside Glucose 190 227 H 165 White Blood Count 11.4 H Red Blood Count 3.81 L Hemoglobin 11.3 L Hematocrit 34.8 L Mean Corpuscular Volume 91.3 Mean Corpuscular Hemoglobin 29.7 Mean Corpuscular Hemoglobin Concent 32.5 Red Cell Distribution Width 15.5 H Platelet Count 239 Mean Platelet Volume 10.6 H Neutrophils % 55.7 Lymphocytes % 25.7 Monocytes % 8.0 Eosinophils % 5.4 Basophils % 0.6 Nucleated Red Blood Cells % 0.0 Neutrophils # 6.4 Lymphocytes # 2.9 Monocytes # 0.9 Eosinophils # 0.6 H Basophils # 0.1 Nucleated Red Blood Cells # 0.0 Test 11/20/16 05:47 11/20/16 08:19 Sodium Level 149 H Potassium Level 3.9 Chloride Level 117 H Carbon Dioxide Level 27 Anion Gap 9 Blood Urea Nitrogen 24 H Creatinine 1.15 H Glucose Level 117 # Calcium Level 8.6 Total Bilirubin 0.3 Direct Bilirubin 0.00 Indirect Bilirubin 0.3 Aspartate Amino Transf (AST/SGOT) 55 H Alanine Aminotransferase (ALT/SGPT) 63 Alkaline Phosphatase 91 Total Protein 5.9 L Albumin 2.8 L Globulin 3.10 Albumin/Globulin Ratio 0.90 Bedside Glucose 113 Medications Medications Current Medications Miscellaneous Information 1 ea NOTE XX ; Start 11/12/16 at 08:30 Glucose (Glutose) 15 gm Q15M PRN PO DECREASED GLUCOSE; Start 11/12/16 at 08:30 Glucose (Glutose) 22.5 gm Q15M PRN PO DECREASED GLUCOSE; Start 11/12/16 at 08: 30 Dextrose (D50w Syringe) 25 ml Q15M PRN IV DECREASED GLUCOSE; Start 11/12/16 at 08:30 Dextrose (D50w Syringe) 50 ml Q15M PRN IV DECREASED GLUCOSE; Start 11/12/16 at 08:30 Glucagon (Glucagen) 1 mg Q15M PRN IM DECREASED GLUCOSE; Start 11/12/16 at 08:30 Glucose (Glutose) 15 gm Q15M PRN BUCCAL DECREASED GLUCOSE; Start 11/12/16 at 08 :30 Collagenase 1 applic 1 applic DAILY TOP Last administered on 11/18/16 13:12; Admin Dose 1 APPLIC; Start 11/16/16 at 09:00 Meropenem (Merrem 500 Mg/ 100 ml (Pmx)) 100 ml @ 200 mls/hr Q12 IVPB Last administered on 11/20/16 08:56; Admin Dose 200 MLS/HR; Start 11/15/16 at 21:00 Ondansetron HCl (Zofran Inj) 4 mg Q4H PRN IV NAUSEA AND/OR VOMITING; Start at 17:00 Miscellaneous Information ([facility]) This patient jean baptiste... PRN PRN XX WOUND CARE; Start 11/15/16 at 18:30 Hydralazine HCl (Apresoline) 10 mg Q4H PRN IV ELEVATED BLOOD PRESSURE Last administered on 11/18/16 19:09; Admin Dose 10 MG; Start 11/15/16 at 20:30 Amlodipine Besylate (Norvasc) 5 mg DAILY PO Last administered on 11/19/16 11: 20; Admin Dose 5 MG; Start 11/17/16 at 09:00 Acetaminophen (Tylenol Tab) 650 mg Q6H PRN PO PAIN AND OR ELEVATED TEMP Last administered on 11/19/16 11:20; Admin Dose 650 MG; Start 11/16/16 at 14:00 Methadone HCl 10 mg 10 mg Q8 PRN PO pain; Start 11/16/16 at 14:00; Status Future Hold Vancomycin HCl (Vancocin) 250 ml @ 125 mls/hr Q36H IVPB Last administered on 01:31; Admin Dose 125 MLS/HR; Start 11/19/16 at 00:00 Aspirin (Aspirin) 81 mg DAILY PO Last administered on 11/19/16 11:20; Admin Dose 81 MG; Start 11/18/16 at 09:00 Atorvastatin Calcium (Lipitor) 20 mg HS PO Last administered on 11/19/16 21:41 ; Admin Dose 20 MG; Start 11/17/16 at 21:00 Metoprolol Tartrate (Lopressor) 25 mg BID PO Last administered on 11/19/16 21: 42; Admin Dose 25 MG; Start 11/18/16 at 11:30 Pantoprazole (Protonix Tab) 40 mg DAILY@06 PO Last administered on 11/19/16 11 :20; Admin Dose 40 MG; Start 11/19/16 at 06:00 Diagnostic Test (Pha) (Accu-Chek) 1 ea 02 XX ; Start 11/19/16 at 02:00 Enoxaparin Sodium 60 mg 60 mg Q24H SC Last administered on 11/19/16 22:10; Admin Dose 60 MG; Start 11/18/16 at 21:00 Dextrose (D5W) 1,000 ml @ 40 mls/hr Q24H IV Last administered on 11/19/16 14: 53; Admin Dose 40 MLS/HR; Start 11/19/16 at 14:00 Insulin Human NPH (Humulin N) 20 unit DAILY@20 SC Last administered on 21:44; Admin Dose 20 UNIT; Start 11/19/16 at 20:00 Losartan Potassium (Cozaar) 100 mg DAILY PO ; Start 11/20/16 at 09:00 Insulin Human NPH (Humulin N) 25 unit DAILY@08 SC Last administered on 08:55; Admin Dose 25 UNIT; Start 11/20/16 at 08:00 BRIAN CORREA MD Nov 20, 2016 11:56
[2016-11-20] MEDS: VANCOMYCIN 1 GM in NS 250 ML IVPB SCH (13:58)
[2016-11-20] MEDS: DEXTROSE 5% 1,000 ML IV SCH (19:00)
[2016-11-20] MEDS: ATORVASTATIN 20 MG TAB PO SCH (21:05)
[2016-11-20] MEDS: ENOXAPARIN 60 MG/0.6 ML SYG SC SCH (21:09)
[2016-11-20] MEDS: ACETAMINOPHEN 325 MG TAB PO PRN (23:20)
[2016-11-21] VITALS (12 sets, daily range): BP systolic 114–154; BP diastolic 62–67; PULSE 59–72; RESP 18–22
[2016-11-21] MEDS: LEVALBUTEROL (NEB) 0.63 MG/3 ML AMP HHN SCH ×4 (01:24→19:33)
[2016-11-21] MEDS: IPRATROPIUM (NEB) 0.5 MG/2.5 ML AMP HHN SCH ×4 (01:24→19:33)
[2016-11-21] MEDS: ACCUCHECK AT 2AM (Patients on SS coverage) XX SCH (02:00)
[2016-11-21] MEDS: PANTOPRAZOLE (EC) 40 MG TAB PO SCH (05:29)
[2016-11-21] MEDS: DEXTROSE 5% 1,000 ML IV SCH ×2 (05:51→14:00)
[2016-11-21] MEDS: METOPROLOL 25 MG TAB PO SCH ×2 (07:25→20:55)
[2016-11-21] MEDS: Insulin NOVOLOG SS MILD Algorithm (SS with meals and bedtime) SC SCH ×4 (07:52→21:11)
[2016-11-21 08:25] LABS: BASOPHIL # 0.1 10^3/ul (0.0-0.1); BASOPHILS % 0.8 % (0.0-2.0); EOSINOPHILS # 0.5 10^3/ul (0.0-0.5); HEMATOCRIT 33.1 % (37.0-47.0); HEMOGLOBIN 10.8 g/dl (12.0-16.0); LYMPHOCYTES # 2.4 10^3/ul (0.8-2.9); LYMPHOCYTES % 22.2 % (15.0-51.0); MEAN CORPUSCULAR HGB CONC 32.6 g/dl (32.0-37.0); MEAN CORPUSCULAR VOLUME 91.9 fl (82.0-101.0); MEAN PLATELET VOLUME 10.9 fl (7.4-10.4); MONOCYTE # 0.8 10^3/ul (0.3-0.9); MONOCYTES % 7.3 % (0.0-11.0); NEUTROPHIL # 6.5 10^3/ul (1.6-7.5); NEUTROPHILS % 61.3 % (39.0-77.0); PLATELET COUNT 204 10^3/UL (140-415); RED CELL DISTRIBUTION WIDTH 15.2 % (11.5-14.5); WHITE BLOOD COUNT 10.6 10^3/ul (4.8-10.8)
[2016-11-21 08:46] LABS: ALBUMIN 2.6 g/dl (3.3-4.9); ALBUMIN/GLOBULIN RATIO 0.89; BILIRUBIN,INDIRECT 0.3 mg/dl (0-1.1); BILIRUBIN,TOTAL 0.3 mg/dl (0.2-1.3); CALCIUM 8.5 mg/dl (8.4-10.2); POTASSIUM 3.7 mmol/L (3.5-5.1); TOTAL PROTEIN 5.5 g/dl (6.1-8.1)
[2016-11-21] MEDS: NPH, HUMAN INSULIN ISOPHANE 3ML VIAL SC SCH ×2 (09:45→21:10)
[2016-11-21] MEDS: MEROPENEM 500 MG/100 ML (PMX) 100 ML IVPB SCH ×2 (09:47→21:13)
[2016-11-21] MEDS: AMLODIPINE 5 MG TAB PO SCH (09:48)
[2016-11-21] MEDS: LOSARTAN 50 MG TAB PO SCH (09:48)
[2016-11-21] MEDS: ASPIRIN 81 MG TAB PO SCH (09:48)
[2016-11-21] MEDS: ACETAMINOPHEN 325 MG TAB PO PRN (09:49)
[2016-11-21] MEDS: COLLAGENASE 30 GM TUBE TOP SCH (09:49)
--- NOTE | 2016-11-21 17:08 | PN ---
Date/Time of Note Date/Time of Note DATE: 11/21/16 TIME: 16:56 Assessment/Plan VTE Prophylaxis VTE Prophylaxis Intervention: LMWH Lines/Catheters IV Catheter Type (from Nrs): Saline Lock Urinary Cath still in place: Yes Reason Cath still needed: other (indicate) Assessment/Plan Chief Complaint/Hosp Course s/p Sepsis s/p Respiratory failure status post extubation Peripheral atrial disease Encephalopathy Mildly elevated troponin; due to above Acute kidney injury Paroxysmal atrial fibrillation UE DVT: ON lovenox. follow up with vascular rec. -Patient remains in sinus rhythm. cont betablocker and losartan. ASA LIPITOR CHECK LIPID PANEL Problems: Subjective 24 Hr Interval Summary Free Text/Dictation d/w staff and rhythm was reviewed. pt remains in NSR. pt denies any chest pain or pressure or palpitations. no palpitations. Exam/Review of Systems Vital Signs Vitals Vital Signs Date Time Temp Pulse Resp B/P Pulse Ox O2 Delivery O2 Flow Rate FiO2 11/21/16 16:00 63 11/21/16 15:39 98.6 18 150/67 98 11/21/16 13:36 Nasal Cannula 2.0 Intake and Output 11/20/16 11/20/16 11/21/16 15:00 23:00 07:00 Intake Total 1380 ml 260 ml Output Total 800 ml 450 ml Balance 580 ml -190 ml Exam GEN: no acute distress HEENT: NC/ AT. Pupils are round. s/p NG tube CV: RRR. systolic murmur pulm: no wheezes anteriorly. GI: soft NT ND. EXT: R BKA. L toe amputation neuro: awake and alert. psych: calm. Results Result Diagram: 11/21/16 0750 11/21/16 0750 Results 24 hrs Laboratory Tests Test 11/20/16 17:19 11/20/16 20:07 11/21/16 07:46 11/21/16 07:50 Bedside Glucose 101 125 159 White Blood Count 10.6 Red Blood Count 3.60 L Hemoglobin 10.8 L Hematocrit 33.1 L Mean Corpuscular Volume 91.9 Mean Corpuscular Hemoglobin 30.0 Mean Corpuscular Hemoglobin Concent 32.6 Red Cell Distribution Width 15.2 H Platelet Count 204 Mean Platelet Volume 10.9 H Neutrophils % 61.3 Lymphocytes % 22.2 Monocytes % 7.3 Eosinophils % 5.0 Basophils % 0.8 Nucleated Red Blood Cells % 0.0 Neutrophils # 6.5 Lymphocytes # 2.4 Monocytes # 0.8 Eosinophils # 0.5 Basophils # 0.1 Nucleated Red Blood Cells # 0.0 Sodium Level 145 H Potassium Level 3.7 Chloride Level 110 Carbon Dioxide Level 24 Anion Gap 15 Blood Urea Nitrogen 26 H Creatinine 1.00 Glucose Level 164 Calcium Level 8.5 Total Bilirubin 0.3 Direct Bilirubin 0.00 Indirect Bilirubin 0.3 Aspartate Amino Transf (AST/SGOT) 79 H Alanine Aminotransferase (ALT/SGPT) 67 Alkaline Phosphatase 103 Total Protein 5.5 L Albumin 2.6 L Globulin 2.90 Albumin/Globulin Ratio 0.89 Test 11/21/16 12:34 Bedside Glucose 178 Medications Medications Current Medications Miscellaneous Information 1 ea NOTE XX ; Start 11/12/16 at 08:30 Glucose (Glutose) 15 gm Q15M PRN PO DECREASED GLUCOSE; Start 11/12/16 at 08:30 Glucose (Glutose) 22.5 gm Q15M PRN PO DECREASED GLUCOSE; Start 11/12/16 at 08: 30 Dextrose (D50w Syringe) 25 ml Q15M PRN IV DECREASED GLUCOSE; Start 11/12/16 at 08:30 Dextrose (D50w Syringe) 50 ml Q15M PRN IV DECREASED GLUCOSE; Start 11/12/16 at 08:30 Glucagon (Glucagen) 1 mg Q15M PRN IM DECREASED GLUCOSE; Start 11/12/16 at 08:30 Glucose (Glutose) 15 gm Q15M PRN BUCCAL DECREASED GLUCOSE; Start 11/12/16 at 08 :30 Collagenase 1 applic 1 applic DAILY TOP Last administered on 11/21/16 09:49; Admin Dose 1 APPLIC; Start 11/16/16 at 09:00 Meropenem (Merrem 500 Mg/ 100 ml (Pmx)) 100 ml @ 200 mls/hr Q12 IVPB Last administered on 11/21/16 09:47; Admin Dose 200 MLS/HR; Start 11/15/16 at 21:00 Ondansetron HCl (Zofran Inj) 4 mg Q4H PRN IV NAUSEA AND/OR VOMITING; Start at 17:00 Miscellaneous Information (Pending [facility] Order For Wound Care) This patient jean baptiste... PRN PRN XX WOUND CARE; Start 11/15/16 at 18:30 Hydralazine HCl (Apresoline) 10 mg Q4H PRN IV ELEVATED BLOOD PRESSURE Last administered on 11/18/16 19:09; Admin Dose 10 MG; Start 11/15/16 at 20:30 Amlodipine Besylate (Norvasc) 5 mg DAILY PO Last administered on 11/21/16 09:48 ; Admin Dose 5 MG; Start 11/17/16 at 09:00 Acetaminophen (Tylenol Tab) 650 mg Q6H PRN PO PAIN AND OR ELEVATED TEMP Last administered on 11/21/16 09:49; Admin Dose 650 MG; Start 11/16/16 at 14:00 Methadone HCl 10 mg 10 mg Q8 PRN PO pain; Start 11/16/16 at 14:00; Status Future hold Vancomycin HCl (Vancocin) 250 ml @ 125 mls/hr Q36H IVPB Last administered on 13:58; Admin Dose 125 MLS/HR; Start 11/19/16 at 00:00 Aspirin (Aspirin) 81 mg DAILY PO Last administered on 11/21/16 09:48; Admin Dose 81 MG; Start 11/18/16 at 09:00 Atorvastatin Calcium (Lipitor) 20 mg HS PO Last administered on 11/20/16 21:05 ; Admin Dose 20 MG; Start 11/17/16 at 21:00 Metoprolol Tartrate (Lopressor) 25 mg BID PO Last administered on 11/20/16 21: 06; Admin Dose 25 MG; Start 11/18/16 at 11:30 Pantoprazole (Protonix Tab) 40 mg DAILY@06 PO Last administered on 11/21/16 05: 29; Admin Dose 40 MG; Start 11/19/16 at 06:00 Diagnostic Test (Pha) (Accu-Chek) 1 ea 02 XX ; Start 11/19/16 at 02:00 Enoxaparin Sodium 60 mg 60 mg Q24H SC Last administered on 11/20/16 21:09; Admin Dose 60 MG; Start 11/18/16 at 21:00 Dextrose (D5W) 1,000 ml @ 40 mls/hr Q24H IV Last administered on 11/21/16 05: 51; Admin Dose 40 MLS/HR; Start 11/19/16 at 14:00 Insulin Human NPH (Humulin N) 20 unit DAILY@20 SC Last administered on 21:09; Admin Dose 20 UNIT; Start 11/19/16 at 20:00 Losartan Potassium (Cozaar) 100 mg DAILY PO Last administered on 11/21/16 09:48 ; Admin Dose 100 MG; Start 11/20/16 at 09:00 Insulin Human NPH (Humulin N) 25 unit DAILY@08 SC Last administered on 09:45; Admin Dose 25 UNIT; Start 11/20/16 at 08:00 GEORGE MARK MD Nov 21, 2016 17:06
--- NOTE | 2016-11-21 17:55 | CONS ---
Date/Time of Note Date/Time of Note DATE: 11/21/16 TIME: 17:54 Consult Date/Type/Reason Admit Date/Time Nov 12, 2016 at 05:22 Initial Consult Date 11/12/16 Type of Consultation: pulm Subjective no events Objective Vital Signs Date Time Temp Pulse Resp B/P Pulse Ox O2 Delivery O2 Flow Rate FiO2 11/21/16 16:00 63 11/21/16 15:39 98.6 18 150/67 98 11/21/16 13:36 Nasal Cannula 2.0 Intake and Output 11/20/16 11/20/16 11/21/16 15:00 23:00 07:00 Intake Total 1380 ml 260 ml Output Total 800 ml 450 ml Balance 580 ml -190 ml Exam HEENT: Neck supple; no JVD; no LAD CVS: RRR, S1 and S2 CHEST: Clear ABD: Soft, NT, + BS EXT: No c/c/e Results/Medications Result Diagram: 11/21/16 0750 11/21/16 0750 Results 24 hrs Laboratory Tests Test 11/20/16 20:07 11/21/16 07:46 11/21/16 07:50 11/21/16 12:34 Bedside Glucose 125 159 178 White Blood Count 10.6 Red Blood Count 3.60 L Hemoglobin 10.8 L Hematocrit 33.1 L Mean Corpuscular Volume 91.9 Mean Corpuscular Hemoglobin 30.0 Mean Corpuscular Hemoglobin Concent 32.6 Red Cell Distribution Width 15.2 H Platelet Count 204 Mean Platelet Volume 10.9 H Neutrophils % 61.3 Lymphocytes % 22.2 Monocytes % 7.3 Eosinophils % 5.0 Basophils % 0.8 Nucleated Red Blood Cells % 0.0 Neutrophils # 6.5 Lymphocytes # 2.4 Monocytes # 0.8 Eosinophils # 0.5 Basophils # 0.1 Nucleated Red Blood Cells # 0.0 Sodium Level 145 H Potassium Level 3.7 Chloride Level 110 Carbon Dioxide Level 24 Anion Gap 15 Blood Urea Nitrogen 26 H Creatinine 1.00 Glucose Level 164 Calcium Level 8.5 Total Bilirubin 0.3 Direct Bilirubin 0.00 Indirect Bilirubin 0.3 Aspartate Amino Transf (AST/SGOT) 79 H Alanine Aminotransferase (ALT/SGPT) 67 Alkaline Phosphatase 103 Total Protein 5.5 L Albumin 2.6 L Globulin 2.90 Albumin/Globulin Ratio 0.89 Test 11/21/16 17:41 Bedside Glucose 135 Medications Current Medications Miscellaneous Information 1 ea NOTE XX ; Start 11/12/16 at 08:30 Glucose (Glutose) 15 gm Q15M PRN PO DECREASED GLUCOSE; Start 11/12/16 at 08:30 Glucose (Glutose) 22.5 gm Q15M PRN PO DECREASED GLUCOSE; Start 11/12/16 at 08: 30 Dextrose (D50w Syringe) 25 ml Q15M PRN IV DECREASED GLUCOSE; Start 11/12/16 at 08:30 Dextrose (D50w Syringe) 50 ml Q15M PRN IV DECREASED GLUCOSE; Start 11/12/16 at 08:30 Glucagon (Glucagen) 1 mg Q15M PRN IM DECREASED GLUCOSE; Start 11/12/16 at 08:30 Glucose (Glutose) 15 gm Q15M PRN BUCCAL DECREASED GLUCOSE; Start 11/12/16 at 08 :30 Collagenase 1 applic 1 applic DAILY TOP Last administered on 11/21/16 09:49; Admin Dose 1 APPLIC; Start 11/16/16 at 09:00 Meropenem (Merrem 500 Mg/ 100 ml (Pmx)) 100 ml @ 200 mls/hr Q12 IVPB Last administered on 11/21/16 09:47; Admin Dose 200 MLS/HR; Start 11/15/16 at 21:00 Ondansetron HCl (Zofran Inj) 4 mg Q4H PRN IV NAUSEA AND/OR VOMITING; Start at 17:00 Miscellaneous Information (Pending [facility] Order For Wound Care) This patient jean baptiste... PRN PRN XX WOUND CARE; Start 11/15/16 at 18:30 Hydralazine HCl (Apresoline) 10 mg Q4H PRN IV ELEVATED BLOOD PRESSURE Last administered on 11/18/16 19:09; Admin Dose 10 MG; Start 11/15/16 at 20:30 Amlodipine Besylate (Norvasc) 5 mg DAILY PO Last administered on 11/21/16 09:48 ; Admin Dose 5 MG; Start 11/17/16 at 09:00 Acetaminophen (Tylenol Tab) 650 mg Q6H PRN PO PAIN AND OR ELEVATED TEMP Last administered on 11/21/16 09:49; Admin Dose 650 MG; Start 11/16/16 at 14:00 Methadone HCl 10 mg 10 mg Q8 PRN PO pain; Start 11/16/16 at 14:00; Status Future hold Vancomycin HCl (Vancocin) 250 ml @ 125 mls/hr Q36H IVPB Last administered on 13:58; Admin Dose 125 MLS/HR; Start 11/19/16 at 00:00 Aspirin (Aspirin) 81 mg DAILY PO Last administered on 11/21/16 09:48; Admin Dose 81 MG; Start 11/18/16 at 09:00 Atorvastatin Calcium (Lipitor) 20 mg HS PO Last administered on 11/20/16 21:05 ; Admin Dose 20 MG; Start 11/17/16 at 21:00 Metoprolol Tartrate (Lopressor) 25 mg BID PO Last administered on 11/20/16 21: 06; Admin Dose 25 MG; Start 11/18/16 at 11:30 Pantoprazole (Protonix Tab) 40 mg DAILY@06 PO Last administered on 11/21/16 05: 29; Admin Dose 40 MG; Start 11/19/16 at 06:00 Diagnostic Test (Pha) (Accu-Chek) 1 ea 02 XX ; Start 11/19/16 at 02:00 Enoxaparin Sodium 60 mg 60 mg Q24H SC Last administered on 11/20/16 21:09; Admin Dose 60 MG; Start 11/18/16 at 21:00 Dextrose (D5W) 1,000 ml @ 40 mls/hr Q24H IV Last administered on 11/21/16 05: 51; Admin Dose 40 MLS/HR; Start 11/19/16 at 14:00 Insulin Human NPH (Humulin N) 20 unit DAILY@20 SC Last administered on 21:09; Admin Dose 20 UNIT; Start 11/19/16 at 20:00 Losartan Potassium (Cozaar) 100 mg DAILY PO Last administered on 11/21/16 09:48 ; Admin Dose 100 MG; Start 11/20/16 at 09:00 Insulin Human NPH (Humulin N) 25 unit DAILY@08 SC Last administered on 09:45; Admin Dose 25 UNIT; Start 11/20/16 at 08:00 Assessment/Plan Additional Assessment/Plan IMP: s/p Sepsis s/p Respiratory failure status post extubation Peripheral atrial disease Encephalopathy Paroxysmal atrial fibrillation UE DVT RECS: 1. continue anticoagulation 2. ICS 3. Aspiration precautions LEOPOLDO LAWSON MD Nov 21, 2016 17:55
[2016-11-21] MEDS: ATORVASTATIN 20 MG TAB PO SCH (20:55)
[2016-11-21] MEDS: METHADONE 10 MG TAB PO PRN (20:55)
[2016-11-21] MEDS: ENOXAPARIN 60 MG/0.6 ML SYG SC SCH (21:11)
[2016-11-21] MEDS: VANCOMYCIN 1 GM in NS 250 ML IVPB SCH (23:57)
[2016-11-22] VITALS (11 sets, daily range): BP systolic 151–186; BP diastolic 67–79; PULSE 60–78; RESP 16–21
[2016-11-22] MEDS: IPRATROPIUM (NEB) 0.5 MG/2.5 ML AMP HHN SCH ×4 (01:09→19:29)
[2016-11-22] MEDS: LEVALBUTEROL (NEB) 0.63 MG/3 ML AMP HHN SCH ×4 (01:09→19:29)
[2016-11-22] MEDS: ACCUCHECK AT 2AM (Patients on SS coverage) XX SCH (01:59)
[2016-11-22] MEDS: PANTOPRAZOLE (EC) 40 MG TAB PO SCH (06:07)
[2016-11-22] MEDS: Insulin NOVOLOG SS MILD Algorithm (SS with meals and bedtime) SC SCH ×4 (07:39→21:00)
[2016-11-22] MEDS: NPH, HUMAN INSULIN ISOPHANE 3ML VIAL SC SCH ×2 (07:43→21:49)
[2016-11-22] MEDS: MEROPENEM 500 MG/100 ML (PMX) 100 ML IVPB SCH ×2 (09:25→21:40)
[2016-11-22] MEDS: METOPROLOL 25 MG TAB PO SCH ×2 (09:26→20:41)
[2016-11-22] MEDS: AMLODIPINE 5 MG TAB PO SCH (09:26)
[2016-11-22] MEDS: ASPIRIN 81 MG TAB PO SCH (09:27)
[2016-11-22] MEDS: LOSARTAN 50 MG TAB PO SCH (09:27)
[2016-11-22] MEDS: COLLAGENASE 30 GM TUBE TOP SCH (09:27)
--- NOTE | 2016-11-22 13:04 | PN ---
Date/Time of Note Date/Time of Note DATE: 11/22/16 TIME: 13:01 Assessment/Plan VTE Prophylaxis VTE Prophylaxis Intervention: other Lines/Catheters IV Catheter Type (from Nrsg): Central Line Central line still needed: Yes Urinary Cath still in place: Yes Reason Cath still needed: other (indicate) Assessment/Plan Chief Complaint/Hosp Course s/p Sepsis s/p Respiratory failure status post extubation Peripheral atrial disease Encephalopathy Mildly elevated troponin; due to above Acute kidney injury Paroxysmal atrial fibrillation UE DVT: ON lovenox. follow up with vascular rec. -Patient remains in sinus rhythm. cont betablocker and losartan. ASA LIPITOR CHECK LIPID PANEL Dr Jacome will f/u tomorrow Problems: Subjective 24 Hr Interval Summary Free Text/Dictation d/w staff and rhythm was reviewed. pt with frequent PVC. D/W family. no report of chest pain or pressure. Exam/Review of Systems Vital Signs Vitals Vital Signs Date Time Temp Pulse Resp B/P Pulse Ox O2 Delivery O2 Flow Rate FiO2 11/22/16 12:31 69 11/22/16 11:19 99.2 16 160/67 100 11/22/16 08:15 Nasal Cannula 2.0 Intake and Output 11/21/16 11/21/16 11/22/16 15:00 23:00 07:00 Intake Total 100 ml 100 ml 575 ml Output Total 800 ml 500 ml Balance 100 ml -700 ml 75 ml Exam GEN: no acute distress HEENT: NC/ AT. Pupils are round. s/p NG tube CV: RRR. systolic murmur pulm: no wheezes anteriorly. GI: soft NT ND. EXT: R BKA. L toe amputation neuro: awake and alert. psych: calm. Results Result Diagram: 11/21/16 0750 11/21/16 0750 Results 24 hrs Laboratory Tests Test 11/21/16 17:41 11/21/16 21:03 11/22/16 01:58 11/22/16 07:37 Bedside Glucose 135 195 140 152 Test 11/22/16 12:06 Bedside Glucose 187 Medications Medications Current Medications Miscellaneous Information 1 ea NOTE XX ; Start 11/12/16 at 08:30 Glucose (Glutose) 15 gm Q15M PRN PO DECREASED GLUCOSE; Start 11/12/16 at 08:30 Glucose (Glutose) 22.5 gm Q15M PRN PO DECREASED GLUCOSE; Start 11/12/16 at 08: 30 Dextrose (D50w Syringe) 25 ml Q15M PRN IV DECREASED GLUCOSE; Start 11/12/16 at 08:30 Dextrose (D50w Syringe) 50 ml Q15M PRN IV DECREASED GLUCOSE; Start 11/12/16 at 08:30 Glucagon (Glucagen) 1 mg Q15M PRN IM DECREASED GLUCOSE; Start 11/12/16 at 08:30 Glucose (Glutose) 15 gm Q15M PRN BUCCAL DECREASED GLUCOSE; Start 11/12/16 at 08 :30 Collagenase 1 applic 1 applic DAILY TOP Last administered on 11/22/16 09:27; Admin Dose 1 APPLIC; Start 11/16/16 at 09:00 Meropenem (Merrem 500 Mg/ 100 ml (Pmx)) 100 ml @ 200 mls/hr Q12 IVPB Last administered on 11/22/16 09:25; Admin Dose 200 MLS/HR; Start 11/15/16 at 21:00 Ondansetron HCl (Zofran Inj) 4 mg Q4H PRN IV NAUSEA AND/OR VOMITING; Start at 17:00 Miscellaneous Information (Pending [facility] Order For Wound Care) This patient jean baptiste... PRN PRN XX WOUND CARE; Start 11/15/16 at 18:30 Hydralazine HCl (Apresoline) 10 mg Q4H PRN IV ELEVATED BLOOD PRESSURE Last administered on 11/18/16 19:09; Admin Dose 10 MG; Start 11/15/16 at 20:30 Amlodipine Besylate (Norvasc) 5 mg DAILY PO Last administered on 11/22/16 09:26 ; Admin Dose 5 MG; Start 11/17/16 at 09:00 Acetaminophen (Tylenol Tab) 650 mg Q6H PRN PO PAIN AND OR ELEVATED TEMP Last administered on 11/21/16 09:49; Admin Dose 650 MG; Start 11/16/16 at 14:00 Methadone HCl 10 mg 10 mg Q8 PRN PO pain Last administered on 11/21/16 20:55; Admin Dose 10 MG; Start 11/16/16 at 14:00; Status Future hold Vancomycin HCl (Vancocin) 250 ml @ 125 mls/hr Q36H IVPB Last administered on 23:57; Admin Dose 125 MLS/HR; Start 11/19/16 at 00:00 Aspirin (Aspirin) 81 mg DAILY PO Last administered on 11/22/16 09:27; Admin Dose 81 MG; Start 11/18/16 at 09:00 Atorvastatin Calcium (Lipitor) 20 mg HS PO Last administered on 11/21/16 20:55 ; Admin Dose 20 MG; Start 11/17/16 at 21:00 Metoprolol Tartrate (Lopressor) 25 mg BID PO Last administered on 11/22/16 09: 26; Admin Dose 25 MG; Start 11/18/16 at 11:30 Pantoprazole (Protonix Tab) 40 mg DAILY@06 PO Last administered on 11/22/16 06: 07; Admin Dose 40 MG; Start 11/19/16 at 06:00 Diagnostic Test (Pha) (Accu-Chek) 1 ea 02 XX Last administered on 11/22/16 01: 59; Admin Dose 1 EA; Start 11/19/16 at 02:00 Enoxaparin Sodium 60 mg 60 mg Q24H SC Last administered on 11/21/16 21:11; Admin Dose 60 MG; Start 11/18/16 at 21:00 Dextrose (D5W) 1,000 ml @ 40 mls/hr Q24H IV Last administered on 11/21/16 05: 51; Admin Dose 40 MLS/HR; Start 11/19/16 at 14:00 Insulin Human NPH (Humulin N) 20 unit DAILY@20 SC Last administered on 21:10; Admin Dose 20 UNIT; Start 11/19/16 at 20:00 Losartan Potassium (Cozaar) 100 mg DAILY PO Last administered on 11/22/16 09:27 ; Admin Dose 100 MG; Start 11/20/16 at 09:00 Insulin Human NPH (Humulin N) 25 unit DAILY@08 SC Last administered on 07:43; Admin Dose 25 UNIT; Start 11/20/16 at 08:00 GEORGE MARK MD Nov 22, 2016 13:04
--- NOTE | 2016-11-22 13:23 | CONS ---
Date/Time of Note Date/Time of Note DATE: 11/22/16 TIME: 13:22 Consult Date/Type/Reason Admit Date/Time Nov 12, 2016 at 05:22 Initial Consult Date 11/12/16 Type of Consultation: pulm Subjective No events. Breathing comfortably. Objective Vital Signs Date Time Temp Pulse Resp B/P Pulse Ox O2 Delivery O2 Flow Rate FiO2 11/22/16 12:31 69 11/22/16 11:19 99.2 16 160/67 100 11/22/16 08:15 Nasal Cannula 2.0 Intake and Output 11/21/16 11/21/16 11/22/16 15:00 23:00 07:00 Intake Total 100 ml 100 ml 575 ml Output Total 800 ml 500 ml Balance 100 ml -700 ml 75 ml Exam HEENT: Neck supple; no JVD; no LAD CVS: RRR, S1 and S2 CHEST: Clear ABD: Soft, NT, + BS EXT: No c/c/e Results/Medications Result Diagram: 11/21/16 0750 11/21/16 0750 Results 24 hrs Laboratory Tests Test 11/21/16 17:41 11/21/16 21:03 11/22/16 01:58 11/22/16 07:37 Bedside Glucose 135 195 140 152 Test 11/22/16 12:06 Bedside Glucose 187 Medications Current Medications Miscellaneous Information 1 ea NOTE XX ; Start 11/12/16 at 08:30 Glucose (Glutose) 15 gm Q15M PRN PO DECREASED GLUCOSE; Start 11/12/16 at 08:30 Glucose (Glutose) 22.5 gm Q15M PRN PO DECREASED GLUCOSE; Start 11/12/16 at 08: 30 Dextrose (D50w Syringe) 25 ml Q15M PRN IV DECREASED GLUCOSE; Start 11/12/16 at 08:30 Dextrose (D50w Syringe) 50 ml Q15M PRN IV DECREASED GLUCOSE; Start 11/12/16 at 08:30 Glucagon (Glucagen) 1 mg Q15M PRN IM DECREASED GLUCOSE; Start 11/12/16 at 08:30 Glucose (Glutose) 15 gm Q15M PRN BUCCAL DECREASED GLUCOSE; Start 11/12/16 at 08 :30 Collagenase 1 applic 1 applic DAILY TOP Last administered on 11/22/16t 09:27; Admin Dose 1 APPLIC; Start 11/16/16 at 09:00 Meropenem (Merrem 500 Mg/ 100 ml (Pmx)) 100 ml @ 200 mls/hr Q12 IVPB Last administered on 11/22/16 09:25; Admin Dose 200 MLS/HR; Start 11/15/16 at 21:00 Ondansetron HCl (Zofran Inj) 4 mg Q4H PRN IV NAUSEA AND/OR VOMITING; Start at 17:00 Miscellaneous Information ([facility] This patient jean baptiste... PRN PRN XX WOUND CARE; Start 11/15/16 at 18:30 Hydralazine HCl (Apresoline) 10 mg Q4H PRN IV ELEVATED BLOOD PRESSURE Last administered on 11/18/16 19:09; Admin Dose 10 MG; Start 11/15/16 at 20:30 Amlodipine Besylate (Norvasc) 5 mg DAILY PO Last administered on 11/22/16 09:26 ; Admin Dose 5 MG; Start 11/17/16 at 09:00 Acetaminophen (Tylenol Tab) 650 mg Q6H PRN PO PAIN AND OR ELEVATED TEMP Last administered on 11/21/16 09:49; Admin Dose 650 MG; Start 11/16/16 at 14:00 Methadone HCl 10 mg 10 mg Q8 PRN PO pain Last administered on 11/21/16 20:55; Admin Dose 10 MG; Start 11/16/16 at 14:00; Status Future hold Vancomycin HCl (Vancocin) 250 ml @ 125 mls/hr Q36H IVPB Last administered on 23:57; Admin Dose 125 MLS/HR; Start 11/19/16 at 00:00 Aspirin (Aspirin) 81 mg DAILY PO Last administered on 11/22/16 09:27; Admin Dose 81 MG; Start 11/18/16 at 09:00 Atorvastatin Calcium (Lipitor) 20 mg HS PO Last administered on 11/21/16 20:55 ; Admin Dose 20 MG; Start 11/17/16 at 21:00 Metoprolol Tartrate (Lopressor) 25 mg BID PO Last administered on 11/22/16 09: 26; Admin Dose 25 MG; Start 11/18/16 at 11:30 Pantoprazole (Protonix Tab) 40 mg DAILY@06 PO Last administered on 11/22/16 06: 07; Admin Dose 40 MG; Start 11/19/16 at 06:00 Diagnostic Test (Pha) (Accu-Chek) 1 ea 02 XX Last administered on 11/22/16 01: 59; Admin Dose 1 EA; Start 11/19/16 at 02:00 Enoxaparin Sodium 60 mg 60 mg Q24H SC Last administered on 11/21/16 21:11; Admin Dose 60 MG; Start 11/18/16 at 21:00 Dextrose (D5W) 1,000 ml @ 40 mls/hr Q24H IV Last administered on 11/21/16 05: 51; Admin Dose 40 MLS/HR; Start 11/19/16 at 14:00 Insulin Human NPH (Humulin N) 20 unit DAILY@20 SC Last administered on 21:10; Admin Dose 20 UNIT; Start 11/19/16 at 20:00 Losartan Potassium (Cozaar) 100 mg DAILY PO Last administered on 11/22/16 09:27 ; Admin Dose 100 MG; Start 11/20/16 at 09:00 Insulin Human NPH (Humulin N) 25 unit DAILY@08 SC Last administered on 07:43; Admin Dose 25 UNIT; Start 11/20/16 at 08:00 Assessment/Plan Additional Assessment/Plan IMP: s/p Sepsis s/p Respiratory failure status post extubation Peripheral atrial disease Encephalopathy Paroxysmal atrial fibrillation UE DVT RECS: 1. Continue anticoagulation 2. ICS 3. Aspiration precautions 4. PT/OT LEOPOLDO LAWSON MD Nov 22, 2016 13:23
[2016-11-22] MEDS: DEXTROSE 5% 1,000 ML IV SCH (14:00)
[2016-11-22] MEDS: hydrALAzine 20 MG INJ IV PRN ×2 (15:47→20:48)
--- NOTE | 2016-11-22 19:30 | PN ---
Date/Time of Note Date/Time of Note DATE: 11/21/16 TIME: 19:27 Assessment/Plan VTE Prophylaxis VTE Prophylaxis Intervention: other (lovenox) Lines/Catheters IV Catheter Type (from Nrsg): Central Line Central line still needed: No Urinary Cath still in place: Yes Reason Cath still needed: terminal illness/intractable pain Assessment/Plan Assessment/Plan 1. sepsis 2. rld 3. htn/ pad 4. dvt 5. ng tube feed ---per ID, cont atbx ---per pulm ---per cards ---bed side swallow eval w/ st Subjective 24 Hr Interval Summary Free Text/Dictation weak, wants to eat ELAN MILES MD Nov 22, 2016 19:30
--- NOTE | 2016-11-22 19:35 | PN ---
Date/Time of Note Date/Time of Note DATE: 11/22/16 TIME: 19:31 Assessment/Plan VTE Prophylaxis VTE Prophylaxis Intervention: other (lovenox) Lines/Catheters IV Catheter Type (from Nrsg): Central Line Central line still needed: No Urinary Cath still in place: Yes Reason Cath still needed: terminal illness/intractable pain Assessment/Plan Assessment/Plan 1. sepsis/ uti 2. rld 3. arf 4. a fib/ htn/ pad 5. ue dvt 6. encephalopathy ---per ID, cont atbx ---per Pulm ---per Cards ---cont anticoag ---pure thickened diet Subjective 24 Hr Interval Summary Free Text/Dictation weak, less throat pain w/out ngt Exam/Review of Systems Vital Signs Vitals Vital Signs Date Time Temp Pulse Resp B/P Pulse Ox O2 Delivery O2 Flow Rate FiO2 11/22/16 16:03 78 11/22/16 15:17 98.6 16 164/68 95 11/22/16 13:41 Nasal Cannula 2.0 Intake and Output 11/21/16 11/21/16 11/22/16 15:00 23:00 07:00 Intake Total 100 ml 100 ml 575 ml Output Total 800 ml 500 ml Balance 100 ml -700 ml 75 ml Exam irreg irreg, dec bs, no edema Results Result Diagram: 11/21/16 0750 11/21/16 0750 Results 24 hrs Laboratory Tests Test 11/21/16 21:03 11/22/16 01:58 11/22/16 07:37 11/22/16 12:06 Bedside Glucose 195 140 152 187 Test 11/22/16 16:56 Bedside Glucose 167 Medications Medications Current Medications Miscellaneous Information 1 ea NOTE XX ; Start 11/12/16 at 08:30 Glucose (Glutose) 15 gm Q15M PRN PO DECREASED GLUCOSE; Start 11/12/16 at 08:30 Glucose (Glutose) 22.5 gm Q15M PRN PO DECREASED GLUCOSE; Start 11/12/16 at 08: 30 Dextrose (D50w Syringe) 25 ml Q15M PRN IV DECREASED GLUCOSE; Start 11/12/16 at 08:30 Dextrose (D50w Syringe) 50 ml Q15M PRN IV DECREASED GLUCOSE; Start 11/12/16 at 08:30 Glucagon (Glucagen) 1 mg Q15M PRN IM DECREASED GLUCOSE; Start 11/12/16 at 08:30 Glucose (Glutose) 15 gm Q15M PRN BUCCAL DECREASED GLUCOSE; Start 11/12/16 at 08 :30 Collagenase 1 applic 1 applic DAILY TOP Last administered on 11/22/16 09:27; Admin Dose 1 APPLIC; Start 11/16/16 at 09:00 Meropenem (Merrem 500 Mg/ 100 ml (Pmx)) 100 ml @ 200 mls/hr Q12 IVPB Last administered on 11/22/16 09:25; Admin Dose 200 MLS/HR; Start 11/15/16 at 21:00 Ondansetron HCl (Zofran Inj) 4 mg Q4H PRN IV NAUSEA AND/OR VOMITING; Start at 17:00 Miscellaneous Information (Pending [facility] Order For Wound Care) This patient jean baptiste... PRN PRN XX WOUND CARE; Start 11/15/16 at 18:30 Hydralazine HCl (Apresoline) 10 mg Q4H PRN IV ELEVATED BLOOD PRESSURE Last administered on 11/22/16 15:47; Admin Dose 10 MG; Start 11/15/16 at 20:30 Amlodipine Besylate (Norvasc) 5 mg DAILY PO Last administered on 11/22/16 09:26 ; Admin Dose 5 MG; Start 11/17/16 at 09:00 Acetaminophen (Tylenol Tab) 650 mg Q6H PRN PO PAIN AND OR ELEVATED TEMP Last administered on 11/21/16 09:49; Admin Dose 650 MG; Start 11/16/16 at 14:00 Methadone HCl 10 mg 10 mg Q8 PRN PO pain Last administered on 11/21/16 20:55; Admin Dose 10 MG; Start 11/16/16 at 14:00; Status Future hold Vancomycin HCl (Vancocin) 250 ml @ 125 mls/hr Q36H IVPB Last administered on 23:57; Admin Dose 125 MLS/HR; Start 11/19/16 at 00:00 Aspirin (Aspirin) 81 mg DAILY PO Last administered on 11/22/16 09:27; Admin Dose 81 MG; Start 11/18/16 at 09:00 Atorvastatin Calcium (Lipitor) 20 mg HS PO Last administered on 11/21/16 20:55 ; Admin Dose 20 MG; Start 11/17/16 at 21:00 Metoprolol Tartrate (Lopressor) 25 mg BID PO Last administered on 11/22/16 09: 26; Admin Dose 25 MG; Start 11/18/16 at 11:30 Pantoprazole (Protonix Tab) 40 mg DAILY@06 PO Last administered on 11/22/16 06: 07; Admin Dose 40 MG; Start 11/19/16 at 06:00 Diagnostic Test (Pha) (Accu-Chek) 1 ea 02 XX Last administered on 11/22/16 01: 59; Admin Dose 1 EA; Start 11/19/16 at 02:00 Enoxaparin Sodium 60 mg 60 mg Q24H SC Last administered on 11/21/16 21:11; Admin Dose 60 MG; Start 11/18/16 at 21:00 Dextrose (D5W) 1,000 ml @ 40 mls/hr Q24H IV Last administered on 11/21/16 05: 51; Admin Dose 40 MLS/HR; Start 11/19/16 at 14:00 Insulin Human NPH (Humulin N) 20 unit DAILY@20 SC Last administered on 21:10; Admin Dose 20 UNIT; Start 11/19/16 at 20:00 Losartan Potassium (Cozaar) 100 mg DAILY PO Last administered on 11/22/16 09:27 ; Admin Dose 100 MG; Start 11/20/16 at 09:00 Insulin Human NPH (Humulin N) 25 unit DAILY@08 SC Last administered on 07:43; Admin Dose 25 UNIT; Start 11/20/16 at 08:00 Miscellaneous Information (*Rx Drug Level Order Reminder*) VANCOMYCIN TROUGH 11/23 AT 1100 ONCE ONCE XX ; Start 11/23/16 at 11:00; Stop 11/23/16 at 11:01 ELAN MILES MD Nov 22, 2016 19:35
[2016-11-22] MEDS: METHADONE 10 MG TAB PO PRN (20:40)
[2016-11-22] MEDS: ATORVASTATIN 20 MG TAB PO SCH (20:40)
[2016-11-22] MEDS: ENOXAPARIN 60 MG/0.6 ML SYG SC SCH (21:00)
[2016-11-23] VITALS (13 sets, daily range): BP systolic 107–148; BP diastolic 53–65; PULSE 59–72; RESP 16–19
[2016-11-23] MEDS: IPRATROPIUM (NEB) 0.5 MG/2.5 ML AMP HHN SCH ×4 (01:22→19:40)
[2016-11-23] MEDS: LEVALBUTEROL (NEB) 0.63 MG/3 ML AMP HHN SCH ×4 (01:22→19:40)
[2016-11-23] MEDS: ACCUCHECK AT 2AM (Patients on SS coverage) XX SCH (02:00)
[2016-11-23] MEDS: PANTOPRAZOLE (EC) 40 MG TAB PO SCH (06:04)
--- NOTE | 2016-11-23 06:49 | CONS ---
Date/Time of Note Date/Time of Note DATE: 11/23/16 TIME: 06:45 Assessment/Plan Assessment/Plan Chief Complaint/Hosp Course 1) asp pneumonia continue with vanco/merrem to cover resistant organisms 11/13 - sputum cx ordered no change 11/16 - sputum cx never sent off continue with vanco/merrem for 8-10 day course 11/18 - wbc is improved, continue vanco/merrem thru 11/21 then change back to po cipro/doxy thru 12/11 11/20 - wbc is back to normal, if it remains normal will change to cipro/doxy tomorrow 11/23 - WBC is normal again d/c vanco/merrem and start cipro/doxy 2) pyuria and possible UTI await maturation of urine cx 11/13 - urine cx is pending 11/16 - urine cx was negative for bacteria, just yeast 3) L heal osteo s/p debridement about a week ago merrem will cover the kleb that was there before repeat wound cx 11/13 - wound cx is pending 11/13 - wound cx did not grow any aggressive bacteria 11/18 - will change back to cipro/doxy when done with iv antibiotics check esr, crp in a.m. 11/20 - both crp and esr were higher but this may be related to her pneumonia will re-check next week will change to cipro/doxy soon and continue these thru 12/11 11/23 - d/c vanco/merrem and start cipro/doxy continue cipro/doxy thru 12/11 check esr, crp in a.m. 4) PVD no reversible stenosis found to LLE 5) GPR in blood cx (bacillus species) 11/13 - this likely is a contaminant repeat blood cx this a.m. 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 Problems: Consultation Date/Type/Reason Admit Date/Time Nov 12, 2016 at 05:22 Initial Consult Date 11/12/16 Type of Consultation: ID [id number] HR Interval Summary Free Text/Dictation pt denies cough, SOB no V, D spoke to nurse, no longer requiring zofran Exam/Review of Systems Vital Signs Vitals Vital Signs Date Time Temp Pulse Resp B/P Pulse Ox O2 Delivery O2 Flow Rate FiO2 7/3/17 05:03 2.0 11/23/16 04:10 97.6 80 16 122/60 96 11/23/16 01:24 Nasal Cannula Intake and Output 11/22/16 11/22/16 11/23/16 15:00 23:00 07:00 Intake Total 100 ml 400 ml 1000 ml Output Total 400 ml 550 ml Balance 100 ml 0 ml 450 ml Exam Constitutional: alert Eyes: nl sclera ENMT: mucosa pink and moist Respiratory: clear to auscultation Cardiovascular: regular rate and rhythm Gastrointestinal: non-tender, soft Results Result Diagram: 11/21/16 0750 11/21/16 0750 Results 24 hrs Laboratory Tests Test 11/22/16 07:37 11/22/16 12:06 11/22/16 16:56 11/22/16 21:43 Bedside Glucose 152 187 167 145 Medications Medications Current Medications Miscellaneous Information 1 ea NOTE XX ; Start 11/12/16 at 08:30 Glucose (Glutose) 15 gm Q15M PRN PO DECREASED GLUCOSE; Start 11/12/16 at 08:30 Glucose (Glutose) 22.5 gm Q15M PRN PO DECREASED GLUCOSE; Start 11/12/16 at 08: 30 Dextrose (D50w Syringe) 25 ml Q15M PRN IV DECREASED GLUCOSE; Start 11/12/16 at 08:30 Dextrose (D50w Syringe) 50 ml Q15M PRN IV DECREASED GLUCOSE; Start 11/12/16 at 08:30 Glucagon (Glucagen) 1 mg Q15M PRN IM DECREASED GLUCOSE; Start 11/12/16 at 08:30 Glucose (Glutose) 15 gm Q15M PRN BUCCAL DECREASED GLUCOSE; Start 11/12/16 at 08 :30 Collagenase 1 applic 1 applic DAILY TOP Last administered on 11/22/16 09:27; Admin Dose 1 APPLIC; Start 11/16/16 at 09:00 Meropenem (Merrem 500 Mg/ 100 ml (Pmx)) 100 ml @ 200 mls/hr Q12 IVPB Last administered on 11/22/16 21:40; Admin Dose 200 MLS/HR; Start 11/15/16 at 21:00 Ondansetron HCl (Zofran Inj) 4 mg Q4H PRN IV NAUSEA AND/OR VOMITING; Start at 17:00 Miscellaneous Information (Pending Santyl Order For Wound Care) This patient jean baptiste... PRN PRN XX WOUND CARE; Start 11/15/16 at 18:30 Hydralazine HCl (Apresoline) 10 mg Q4H PRN IV ELEVATED BLOOD PRESSURE Last administered on 11/22/16 20:48; Admin Dose 10 MG; Start 11/15/16 at 20:30 Amlodipine Besylate (Norvasc) 5 mg DAILY PO Last administered on 11/22/16 09:26 ; Admin Dose 5 MG; Start 11/17/16 at 09:00 Acetaminophen (Tylenol Tab) 650 mg Q6H PRN PO PAIN AND OR ELEVATED TEMP Last administered on 11/21/16 09:49; Admin Dose 650 MG; Start 11/16/16 at 14:00 Methadone HCl 10 mg 10 mg Q8 PRN PO pain Last administered on 11/22/16 20:40; Admin Dose 10 MG; Start 11/16/16 at 14:00; Status Future hold Vancomycin HCl (Vancocin) 250 ml @ 125 mls/hr Q36H IVPB Last administered on 23:57; Admin Dose 125 MLS/HR; Start 11/19/16 at 00:00 Aspirin (Aspirin) 81 mg DAILY PO Last administered on 11/22/16 09:27; Admin Dose 81 MG; Start 11/18/16 at 09:00 Atorvastatin Calcium (Lipitor) 20 mg HS PO Last administered on 11/22/16 20:40 ; Admin Dose 20 MG; Start 11/17/16 at 21:00 Metoprolol Tartrate (Lopressor) 25 mg BID PO Last administered on 11/22/16 20: 41; Admin Dose 25 MG; Start 11/18/16 at 11:30 Pantoprazole (Protonix Tab) 40 mg DAILY@06 PO Last administered on 11/23/16 06: 04; Admin Dose 40 MG; Start 11/19/16 at 06:00 Diagnostic Test (Pha) (Accu-Chek) 1 ea 02 XX Last administered on 11/22/16 01: 59; Admin Dose 1 EA; Start 11/19/16 at 02:00 Enoxaparin Sodium 60 mg 60 mg Q24H SC Last administered on 11/22/16 21:00; Admin Dose 60 MG; Start 11/18/16 at 21:00 Dextrose (D5W) 1,000 ml @ 40 mls/hr Q24H IV Last administered on 11/21/16 05: 51; Admin Dose 40 MLS/HR; Start 11/19/16 at 14:00 Insulin Human NPH (Humulin N) 20 unit DAILY@20 SC Last administered on 21:49; Admin Dose 20 UNIT; Start 11/19/16 at 20:00 Losartan Potassium (Cozaar) 100 mg DAILY PO Last administered on 11/22/16 09:27 ; Admin Dose 100 MG; Start 11/20/16 at 09:00 Insulin Human NPH (Humulin N) 25 unit DAILY@08 SC Last administered on 07:43; Admin Dose 25 UNIT; Start 11/20/16 at 08:00 Miscellaneous Information (*Rx Drug Level Order Reminder*) VANCOMYCIN TROUGH 11/23 AT 1100 ONCE ONCE XX ; Start 11/23/16 at 11:00; Stop 11/23/16 at 11:01 ANTHONY WOODARD MD Nov 23, 2016 06:49
[2016-11-23] MEDS: Insulin NOVOLOG SS MILD Algorithm (SS with meals and bedtime) SC SCH ×4 (07:25→20:32)
[2016-11-23 07:39] LABS: ALBUMIN 2.8 g/dl (3.3-4.9); ALBUMIN/GLOBULIN RATIO 0.93; BILIRUBIN,INDIRECT 0.6 mg/dl (0-1.1); BILIRUBIN,TOTAL 0.6 mg/dl (0.2-1.3); CALCIUM 8.5 mg/dl (8.4-10.2); CREATININE 1.06 mg/dl (0.44-1.00); POTASSIUM 3.5 mmol/L (3.5-5.1); TOTAL PROTEIN 5.8 g/dl (6.1-8.1)
[2016-11-23 07:40] LABS: CHOL/HDL RATIO 3.3 RATIO
[2016-11-23] MEDS: LOSARTAN 50 MG TAB PO SCH (08:22)
[2016-11-23] MEDS: AMLODIPINE 5 MG TAB PO SCH (08:22)
[2016-11-23] MEDS: DOXYCYCLINE 100 MG TAB PO SCH ×2 (08:22→20:27)
[2016-11-23] MEDS: ASPIRIN 81 MG TAB PO SCH (08:23)
[2016-11-23] MEDS: COLLAGENASE 30 GM TUBE TOP SCH (08:23)
[2016-11-23] MEDS: METOPROLOL 25 MG TAB PO SCH ×2 (08:23→20:28)
[2016-11-23] MEDS: NPH, HUMAN INSULIN ISOPHANE 3ML VIAL SC SCH ×2 (08:36→20:32)
[2016-11-23] MEDS: DEXTROSE 5% 1,000 ML IV SCH (09:59)
--- NOTE | 2016-11-23 11:23 | CONS ---
Date/Time of Note Date/Time of Note DATE: 11/23/16 TIME: 11:22 Consult Date/Type/Reason Admit Date/Time Nov 12, 2016 at 05:22 Initial Consult Date 11/12/16 Type of Consultation: pulm Subjective Patient comfortable at rest no acute distress Objective Vital Signs Date Time Temp Pulse Resp B/P Pulse Ox O2 Delivery O2 Flow Rate FiO2 11/23/16 11:09 98.2 62 18 107/53 96 11/23/16 10:01 Nasal Cannula 2.0 Intake and Output 11/22/16 11/22/16 11/23/16 15:00 23:00 07:00 Intake Total 100 ml 400 ml 1000 ml Output Total 400 ml 550 ml Balance 100 ml 0 ml 450 ml Exam GENERAL: Elderly lady comfortable at rest no acute distress VITAL SIGNS: per chart NECK: Supple. No JVD or lymphadenopathy. CARDIAC EXAM: S1, S2. No added sounds or murmurs. CHEST: clear bilaterally, No added sounds, rales or wheezes ABDOMEN: Soft, nontender. No guarding or rebound. EXTREMITIES: No cyanosis, clubbing or edema. NEUROLOGIC: Generalized weakness. No focal deficits. Results/Medications Result Diagram: 11/21/16 0750 11/23/16 0530 Results 24 hrs Laboratory Tests Test 11/22/16 12:06 11/22/16 16:56 11/22/16 21:43 11/23/16 05:30 Bedside Glucose 187 167 145 Sodium Level 139 Potassium Level 3.5 Chloride Level 107 Carbon Dioxide Level 28 Anion Gap 8 Blood Urea Nitrogen 24 H Creatinine 1.06 H Glucose Level 125 Calcium Level 8.5 Total Bilirubin 0.6 Direct Bilirubin 0.00 Indirect Bilirubin 0.6 Aspartate Amino Transf (AST/SGOT) 54 H Alanine Aminotransferase (ALT/SGPT) 52 Alkaline Phosphatase 103 Total Protein 5.8 L Albumin 2.8 L Globulin 3.00 Albumin/Globulin Ratio 0.93 Triglycerides Level 160 H Cholesterol Level 67 L LDL Cholesterol, Calculated 15 HDL Cholesterol 20 L Cholesterol/HDL Ratio 3.3 Test 11/23/16 08:19 11/23/16 11:19 Bedside Glucose 133 159 Medications Current Medications Miscellaneous Information 1 ea NOTE XX ; Start 11/12/16 at 08:30 Glucose (Glutose) 15 gm Q15M PRN PO DECREASED GLUCOSE; Start 11/12/16 at 08:30 Glucose (Glutose) 22.5 gm Q15M PRN PO DECREASED GLUCOSE; Start 11/12/16 at 08: 30 Dextrose (D50w Syringe) 25 ml Q15M PRN IV DECREASED GLUCOSE; Start 11/12/16 at 08:30 Dextrose (D50w Syringe) 50 ml Q15M PRN IV DECREASED GLUCOSE; Start 11/12/16 at 08:30 Glucagon (Glucagen) 1 mg Q15M PRN IM DECREASED GLUCOSE; Start 11/12/16 at 08:30 Glucose (Glutose) 15 gm Q15M PRN BUCCAL DECREASED GLUCOSE; Start 11/12/16 at 08 :30 Collagenase (Santyl) 1 applic DAILY TOP Last administered on 11/23/16 08:23; Admin Dose 1 APPLIC; Start 11/16/16 at 09:00 Miscellaneous Information (Pending Santyl Order For Wound Care) This patient jean baptiste... PRN PRN XX WOUND CARE; Start 11/15/16 at 18:30 Hydralazine HCl (Apresoline) 10 mg Q4H PRN IV ELEVATED BLOOD PRESSURE Last administered on 11/22/16 20:48; Admin Dose 10 MG; Start 11/15/16 at 20:30 Amlodipine Besylate (Norvasc) 5 mg DAILY PO Last administered on 11/23/16 08:22 ; Admin Dose 5 MG; Start 11/17/16 at 09:00 Acetaminophen (Tylenol Tab) 650 mg Q6H PRN PO PAIN AND OR ELEVATED TEMP Last administered on 11/21/16 09:49; Admin Dose 650 MG; Start 11/16/16 at 14:00 Methadone HCl (Methadone) 10 mg Q8 PRN PO pain Last administered on 11/22/16 20 :40; Admin Dose 10 MG; Start 11/16/16 at 14:00; Status Future hold Aspirin (Aspirin) 81 mg DAILY PO Last administered on 11/23/16 08:23; Admin Dose 81 MG; Start 11/18/16 at 09:00 Atorvastatin Calcium (Lipitor) 20 mg HS PO Last administered on 11/22/16 20:40 ; Admin Dose 20 MG; Start 11/17/16 at 21:00 Metoprolol Tartrate (Lopressor) 25 mg BID PO Last administered on 11/23/16 08: 23; Admin Dose 25 MG; Start 11/18/16 at 11:30 Pantoprazole (Protonix Tab) 40 mg DAILY@06 PO Last administered on 11/23/16 06: 04; Admin Dose 40 MG; Start 11/19/16 at 06:00 Diagnostic Test (Pha) (Accu-Chek) 1 ea 02 XX Last administered on 11/22/16 01: 59; Admin Dose 1 EA; Start 11/19/16 at 02:00 Enoxaparin Sodium 60 mg 60 mg Q24H SC Last administered on 11/22/16 21:00; Admin Dose 60 MG; Start 11/18/16 at 21:00 Dextrose (D5W) 1,000 ml @ 40 mls/hr Q24H IV Last administered on 11/23/16 09: 59; Admin Dose 40 MLS/HR; Start 11/19/16 at 14:00 Insulin Human NPH (Humulin N) 20 unit DAILY@20 SC Last administered on 21:49; Admin Dose 20 UNIT; Start 11/19/16 at 20:00 Losartan Potassium (Cozaar) 100 mg DAILY PO Last administered on 11/23/16 08:22 ; Admin Dose 100 MG; Start 11/20/16 at 09:00 Insulin Human NPH (Humulin N) 25 unit DAILY@08 SC Last administered on 08:36; Admin Dose 25 UNIT; Start 11/20/16 at 08:00 Ciprofloxacin (Cipro) 500 mg BID@06,18 PO ; Start 11/23/16 at 18:00 Doxycycline Hyclate (Vibramycin) 100 mg BID PO Last administered on 11/23/16 08 :22; Admin Dose 100 MG; Start 11/23/16 at 09:00 Assessment/Plan Chief Complaint/Hosp Course IMP: s/p Sepsis s/p Respiratory failure status post extubation Peripheral atrial disease Encephalopathy Paroxysmal atrial fibrillation UE DVT RECS: 1. Continue anticoagulation 2. ICS 3. Aspiration precautions 4. PT/OT Problems: SHAR[facility] IRCHARD [facility] Nov 23, 2016 11:23
[2016-11-23] MEDS: METHADONE 10 MG TAB PO PRN (11:45)
[2016-11-23] MEDS: CIPROFLOXACIN 500 MG TAB PO SCH (17:48)
--- NOTE | 2016-11-23 19:05 | PN ---
Date/Time of Note Date/Time of Note DATE: 11/23/16 TIME: 19:02 Assessment/Plan VTE Prophylaxis VTE Prophylaxis Intervention: LMWH Lines/Catheters IV Catheter Type (from Nrs): Saline Lock Urinary Cath still in place: Yes Reason Cath still needed: skin wounds contaminated by urine Assessment/Plan Chief Complaint/Hosp Course Sepsis Respiratory failure status post extubation Peripheral atrial disease Encephalopathy Mildly elevated troponin; due to above Acute kidney injury Paroxysmal atrial fibrillation UE DVT: ON lovenox. follow up with vascular rec. -Patient remains in sinus rhythm. Mild Bradycardia Problems: Subjective 24 Hr Interval Summary Cardiovascular: no complaints Exam/Review of Systems Vital Signs Vitals Vital Signs Date Time Temp Pulse Resp B/P Pulse Ox O2 Delivery O2 Flow Rate FiO2 11/23/16 16:12 60 11/23/16 15:07 98.2 18 110/54 97 11/23/16 13:33 Nasal Cannula 2.0 Intake and Output 11/22/16 11/22/16 11/23/16 14:59 22:59 06:59 Intake Total 100 ml 400 ml 1000 ml Output Total 400 ml 550 ml Balance 100 ml 0 ml 450 ml Exam Respiratory: clear to auscultation Cardiovascular: regular rate and rhythm Musculoskeletal: joint tenderness, muscle tone, muscle weakness, nl extremities to inspection, nl gait and stance, other, range of motion, spine non -tender, swelling Extremities: calf tenderness, clubbing, cyanosis, edema, normal pulses, other, palpable cord, pitting pedal edema, tenderness Results Result Diagram: 11/21/16 0750 11/23/16 0530 Results 24 hrs Laboratory Tests Test 11/22/16 21:43 11/23/16 05:30 11/23/16 08:19 11/23/16 11:19 Bedside Glucose 145 133 159 Sodium Level 139 Potassium Level 3.5 Chloride Level 107 Carbon Dioxide Level 28 Anion Gap 8 Blood Urea Nitrogen 24 H Creatinine 1.06 H Glucose Level 125 Calcium Level 8.5 Total Bilirubin 0.6 Direct Bilirubin 0.00 Indirect Bilirubin 0.6 Aspartate Amino Transf (AST/SGOT) 54 H Alanine Aminotransferase (ALT/SGPT) 52 Alkaline Phosphatase 103 Total Protein 5.8 L Albumin 2.8 L Globulin 3.00 Albumin/Globulin Ratio 0.93 Triglycerides Level 160 H Cholesterol Level 67 L LDL Cholesterol, Calculated 15 HDL Cholesterol 20 L Cholesterol/HDL Ratio 3.3 Test 11/23/16 17:47 Bedside Glucose 168 Medications Medications Current Medications Miscellaneous Information 1 ea NOTE XX ; Start 11/12/16 at 08:30 Glucose (Glutose) 15 gm Q15M PRN PO DECREASED GLUCOSE; Start 11/12/16 at 08:30 Glucose (Glutose) 22.5 gm Q15M PRN PO DECREASED GLUCOSE; Start 11/12/16 at 08: 30 Dextrose (D50w Syringe) 25 ml Q15M PRN IV DECREASED GLUCOSE; Start 11/12/16 at 08:30 Dextrose (D50w Syringe) 50 ml Q15M PRN IV DECREASED GLUCOSE; Start 11/12/16 at 08:30 Glucagon (Glucagen) 1 mg Q15M PRN IM DECREASED GLUCOSE; Start 11/12/16 at 08:30 Glucose (Glutose) 15 gm Q15M PRN BUCCAL DECREASED GLUCOSE; Start 11/12/16 at 08 :30 Collagenase (Santyl) 1 applic DAILY TOP Last administered on 11/23/16 08:23; Admin Dose 1 APPLIC; Start 11/16/16 at 09:00 Miscellaneous Information (Pending Santyl Order For Wound Care) This patient jean baptiste... PRN PRN XX WOUND CARE; Start 11/15/16 at 18:30 Hydralazine HCl (Apresoline) 10 mg Q4H PRN IV ELEVATED BLOOD PRESSURE Last administered on 11/22/16 20:48; Admin Dose 10 MG; Start 11/15/16 at 20:30 Amlodipine Besylate (Norvasc) 5 mg DAILY PO Last administered on 11/23/16 08:22 ; Admin Dose 5 MG; Start 11/17/16 at 09:00 Acetaminophen (Tylenol Tab) 650 mg Q6H PRN PO PAIN AND OR ELEVATED TEMP Last administered on 11/21/16 09:49; Admin Dose 650 MG; Start 11/16/16 at 14:00 Methadone HCl (Methadone) 10 mg Q8 PRN PO pain Last administered on 11/23/16 11 :45; Admin Dose 10 MG; Start 11/16/16 at 14:00; Status Future hold Aspirin (Aspirin) 81 mg DAILY PO Last administered on 11/23/16 08:23; Admin Dose 81 MG; Start 11/18/16 at 09:00 Atorvastatin Calcium (Lipitor) 20 mg HS PO Last administered on 11/22/16 20:40 ; Admin Dose 20 MG; Start 11/17/16 at 21:00 Metoprolol Tartrate (Lopressor) 25 mg BID PO Last administered on 11/23/16 08: 23; Admin Dose 25 MG; Start 11/18/16 at 11:30 Pantoprazole (Protonix Tab) 40 mg DAILY@06 PO Last administered on 11/23/16 06: 04; Admin Dose 40 MG; Start 11/19/16 at 06:00 Diagnostic Test (Pha) (Accu-Chek) 1 ea 02 XX Last administered on 11/22/16 01: 59; Admin Dose 1 EA; Start 11/19/16 at 02:00 Enoxaparin Sodium 60 mg 60 mg Q24H SC Last administered on 11/22/16 21:00; Admin Dose 60 MG; Start 11/18/16 at 21:00 Dextrose (D5W) 1,000 ml @ 40 mls/hr Q24H IV Last administered on 11/23/16 09: 59; Admin Dose 40 MLS/HR; Start 11/19/16 at 14:00 Insulin Human NPH (Humulin N) 20 unit DAILY@20 SC Last administered on 21:49; Admin Dose 20 UNIT; Start 11/19/16 at 20:00 Losartan Potassium (Cozaar) 100 mg DAILY PO Last administered on 11/23/16 08:22 ; Admin Dose 100 MG; Start 11/20/16 at 09:00 Insulin Human NPH (Humulin N) 25 unit DAILY@08 SC Last administered on 08:36; Admin Dose 25 UNIT; Start 11/20/16 at 08:00 Ciprofloxacin (Cipro) 500 mg BID@,18 PO Last administered on 11/23/16 17:48; Admin Dose 500 MG; Start 11/23/16 at 18:00 Doxycycline Hyclate (Vibramycin) 100 mg BID PO Last administered on 11/23/16 08 :22; Admin Dose 100 MG; Start 11/23/16 at 09:00 NILDA DEUTSCH MD Nov 23, 2016 19:04
[2016-11-23] MEDS: ATORVASTATIN 20 MG TAB PO SCH (20:28)
[2016-11-23] MEDS: ENOXAPARIN 60 MG/0.6 ML SYG SC SCH (20:29)
[2016-11-24] VITALS (11 sets, daily range): BP systolic 129–160; BP diastolic 58–69; PULSE 56–71; RESP 18–20
--- NOTE | 2016-11-24 00:13 | PN ---
Date/Time of Note Date/Time of Note DATE: 11/23/16 TIME: 12:09 Assessment/Plan VTE Prophylaxis VTE Prophylaxis Intervention: other (lovenox) Lines/Catheters IV Catheter Type (from Nrsg): Central Line Central line still needed: No Urinary Cath still in place: Yes Reason Cath still needed: urinary retention Assessment/Plan Assessment/Plan 1. sepsis/ uti/ osteomyelitis 2. rld--post extubation 3. a fib/ htn/ pad 4. ue dvt ---per ID, cont atbx ---per renal ---per cards ---cont anticoag ---cont all wound care Subjective 24 Hr Interval Summary Free Text/Dictation no complaints Exam/Review of Systems Vital Signs Vitals Vital Signs Date Time Temp Pulse Resp B/P Pulse Ox O2 Delivery O2 Flow Rate FiO2 11/23/16 23:50 97.9 58 19 115/55 96 11/23/16 20:00 Nasal Cannula 2.0 Intake and Output 11/23/16 11/23/16 11/24/16 15:00 23:00 07:00 Intake Total 550 ml Output Total 500 ml Balance 50 ml Exam irreg irreg, dec bs, wounds w/ dry clean dressing Results Result Diagram: 11/21/16 0750 11/23/16 0530 Results 24 hrs Laboratory Tests Test 11/23/16 05:30 11/23/16 08:19 11/23/16 11:19 11/23/16 17:47 Sodium Level 139 Potassium Level 3.5 Chloride Level 107 Carbon Dioxide Level 28 Anion Gap 8 Blood Urea Nitrogen 24 H Creatinine 1.06 H Glucose Level 125 Calcium Level 8.5 Total Bilirubin 0.6 Direct Bilirubin 0.00 Indirect Bilirubin 0.6 Aspartate Amino Transf (AST/SGOT) 54 H Alanine Aminotransferase (ALT/SGPT) 52 Alkaline Phosphatase 103 Total Protein 5.8 L Albumin 2.8 L Globulin 3.00 Albumin/Globulin Ratio 0.93 Triglycerides Level 160 H Cholesterol Level 67 L LDL Cholesterol, Calculated 15 HDL Cholesterol 20 L Cholesterol/HDL Ratio 3.3 Bedside Glucose 133 159 168 Test 11/23/16 20:25 Bedside Glucose 177 Medications Medications Current Medications Miscellaneous Information 1 ea NOTE XX ; Start 11/12/16 at 08:30 Glucose (Glutose) 15 gm Q15M PRN PO DECREASED GLUCOSE; Start 11/12/16 at 08:30 Glucose (Glutose) 22.5 gm Q15M PRN PO DECREASED GLUCOSE; Start 11/12/16 at 08: 30 Dextrose (D50w Syringe) 25 ml Q15M PRN IV DECREASED GLUCOSE; Start 11/12/16 at 08:30 Dextrose (D50w Syringe) 50 ml Q15M PRN IV DECREASED GLUCOSE; Start 11/12/16 at 08:30 Glucagon (Glucagen) 1 mg Q15M PRN IM DECREASED GLUCOSE; Start 11/12/16 at 08:30 Glucose (Glutose) 15 gm Q15M PRN BUCCAL DECREASED GLUCOSE; Start 11/12/16 at 08 :30 Collagenase (Santyl) 1 applic DAILY TOP Last administered on 11/23/16 08:23; Admin Dose 1 APPLIC; Start 11/16/16 at 09:00 Miscellaneous Information (Pending Santyl Order For Wound Care) This patient jean baptiste... PRN PRN XX WOUND CARE; Start 11/15/16 at 18:30 Hydralazine HCl (Apresoline) 10 mg Q4H PRN IV ELEVATED BLOOD PRESSURE Last administered on 11/22/16 20:48; Admin Dose 10 MG; Start 11/15/16 at 20:30 Amlodipine Besylate (Norvasc) 5 mg DAILY PO Last administered on 11/23/16 08:22 ; Admin Dose 5 MG; Start 11/17/16 at 09:00 Acetaminophen (Tylenol Tab) 650 mg Q6H PRN PO PAIN AND OR ELEVATED TEMP Last administered on 11/21/16 09:49; Admin Dose 650 MG; Start 11/16/16 at 14:00 Methadone HCl (Methadone) 10 mg Q8 PRN PO pain Last administered on 11/23/16 11 :45; Admin Dose 10 MG; Start 11/16/16 at 14:00; Status Future hold Aspirin (Aspirin) 81 mg DAILY PO Last administered on 11/23/16 08:23; Admin Dose 81 MG; Start 11/18/16 at 09:00 Atorvastatin Calcium (Lipitor) 20 mg HS PO Last administered on 11/23/16 20:28 ; Admin Dose 20 MG; Start 11/17/16 at 21:00 Metoprolol Tartrate (Lopressor) 25 mg BID PO Last administered on 11/23/16 20: 28; Admin Dose 25 MG; Start 11/18/16 at 11:30 Pantoprazole (Protonix Tab) 40 mg DAILY@06 PO Last administered on 11/23/16 06: 04; Admin Dose 40 MG; Start 11/19/16 at 06:00 Diagnostic Test (Pha) (Accu-Chek) 1 ea 02 XX Last administered on 11/22/16 01: 59; Admin Dose 1 EA; Start 11/19/16 at 02:00 Enoxaparin Sodium 60 mg 60 mg Q24H SC Last administered on 11/23/16 20:29; Admin Dose 60 MG; Start 11/18/16 at 21:00 Dextrose (D5W) 1,000 ml @ 40 mls/hr Q24H IV Last administered on 11/23/16 09: 59; Admin Dose 40 MLS/HR; Start 11/19/16 at 14:00 Insulin Human NPH (Humulin N) 20 unit DAILY@20 SC Last administered on 20:32; Admin Dose 20 UNIT; Start 11/19/16 at 20:00 Losartan Potassium (Cozaar) 100 mg DAILY PO Last administered on 11/23/16 08:22 ; Admin Dose 100 MG; Start 11/20/16 at 09:00 Insulin Human NPH (Humulin N) 25 unit DAILY@08 SC Last administered on 08:36; Admin Dose 25 UNIT; Start 11/20/16 at 08:00 Ciprofloxacin (Cipro) 500 mg BID@06,18 PO Last administered on 11/23/16 17:48; Admin Dose 500 MG; Start 11/23/16 at 18:00 Doxycycline Hyclate (Vibramycin) 100 mg BID PO Last administered on 11/23/16 20 :27; Admin Dose 100 MG; Start 11/23/16 at 09:00 ELAN MILES MD Nov 24, 2016 00:13
[2016-11-24] MEDS: LEVALBUTEROL (NEB) 0.63 MG/3 ML AMP HHN SCH ×4 (01:48→20:19)
[2016-11-24] MEDS: IPRATROPIUM (NEB) 0.5 MG/2.5 ML AMP HHN SCH ×4 (01:48→20:19)
[2016-11-24] MEDS: ACCUCHECK AT 2AM (Patients on SS coverage) XX SCH (02:00)
[2016-11-24] MEDS: PANTOPRAZOLE (EC) 40 MG TAB PO SCH (05:05)
[2016-11-24] MEDS: METHADONE 10 MG TAB PO PRN ×2 (05:05→17:18)
[2016-11-24] MEDS: CIPROFLOXACIN 500 MG TAB PO SCH ×2 (05:05→17:18)
[2016-11-24 06:56] LABS: ADD SCAN DIFF NO
[2016-11-24 07:15] LABS: BASOPHIL # 0.1 10^3/ul (0.0-0.1); BASOPHILS % 0.6 % (0.0-2.0); EOSINOPHILS # 0.4 10^3/ul (0.0-0.5); EOSINOPHILS % 3.4 % (0.0-7.0); HEMATOCRIT 31.8 % (37.0-47.0); HEMOGLOBIN 10.7 g/dl (12.0-16.0); LYMPHOCYTES # 2.7 10^3/ul (0.8-2.9); LYMPHOCYTES % 20.7 % (15.0-51.0); MEAN CORPUSCULAR HEMOGLOBIN 30.1 pg (29.0-33.0); MEAN CORPUSCULAR HGB CONC 33.6 g/dl (32.0-37.0); MEAN CORPUSCULAR VOLUME 89.6 fl (82.0-101.0); MONOCYTES % 7.7 % (0.0-11.0); NEUTROPHIL # 8.4 10^3/ul (1.6-7.5); NEUTROPHILS % 65.6 % (39.0-77.0); PLATELET COUNT 203 10^3/UL (140-415); RED BLOOD COUNT 3.55 10^6/ul (4.20-5.40); WHITE BLOOD COUNT 12.8 10^3/ul (4.8-10.8)
[2016-11-24] MEDS ORDERED: DIPHENHYDRAMINE 25 MG CAP PO PRN (07:30)
[2016-11-24 07:32] LABS: C-REACTIVE PROTEIN 3.1 mg/dl (0.0-0.9); CALCIUM 8.6 mg/dl (8.4-10.2); POTASSIUM 3.3 mmol/L (3.5-5.1)
[2016-11-24] MEDS: LOSARTAN 50 MG TAB PO SCH (08:04)
[2016-11-24] MEDS: DOXYCYCLINE 100 MG TAB PO SCH ×2 (08:04→20:58)
[2016-11-24] MEDS: RISPERIDONE 0.25 MG TAB PO PRN ×2 (08:04→20:58)
[2016-11-24] MEDS: COLLAGENASE 30 GM TUBE TOP SCH (08:05)
[2016-11-24] MEDS: AMLODIPINE 5 MG TAB PO SCH (08:05)
[2016-11-24] MEDS: ASPIRIN 81 MG TAB PO SCH (08:05)
[2016-11-24] MEDS: METOPROLOL 25 MG TAB PO SCH ×2 (08:05→20:58)
[2016-11-24] MEDS: Insulin NOVOLOG SS MILD Algorithm (SS with meals and bedtime) SC SCH ×4 (08:21→20:59)
[2016-11-24] MEDS: NPH, HUMAN INSULIN ISOPHANE 3ML VIAL SC SCH ×2 (08:21→20:17)
[2016-11-24] MEDS: DEXTROSE 5% 1,000 ML IV SCH (12:05)
--- NOTE | 2016-11-24 12:45 | CONS ---
Date/Time of Note Date/Time of Note DATE: 11/24/16 TIME: 12:44 Consult Date/Type/Reason Admit Date/Time Nov 12, 2016 at 05:22 Initial Consult Date 11/12/16 Type of Consultation: pulm Subjective Patient comfortable this morning no new events Objective Vital Signs Date Time Temp Pulse Resp B/P Pulse Ox O2 Delivery O2 Flow Rate FiO2 11/24/16 12:09 69 11/24/16 11:05 98.7 18 154/69 98 11/24/16 08:00 2.0 11/24/16 08:00 Nasal Cannula Intake and Output 11/23/16 11/23/16 11/24/16 15:00 23:00 07:00 Intake Total 550 ml 900 ml Output Total 500 ml 1400 ml Balance 50 ml -500 ml Exam GENERAL: Elderly lady comfortable at rest no acute distress VITAL SIGNS: per chart NECK: Supple. No JVD or lymphadenopathy. CARDIAC EXAM: S1, S2. No added sounds or murmurs. CHEST: clear bilaterally, No added sounds, rales or wheezes ABDOMEN: Soft, nontender. No guarding or rebound. EXTREMITIES: No cyanosis, clubbing or edema. NEUROLOGIC: Generalized weakness. No focal deficits. Results/Medications Result Diagram: 11/24/16 0610 11/24/16 0610 Results 24 hrs Laboratory Tests Test 11/23/16 17:47 11/23/16 20:25 11/24/16 02:14 11/24/16 06:10 Bedside Glucose 168 177 184 White Blood Count 12.8 #H Red Blood Count 3.55 L Hemoglobin 10.7 L Hematocrit 31.8 L Mean Corpuscular Volume 89.6 Mean Corpuscular Hemoglobin 30.1 Mean Corpuscular Hemoglobin Concent 33.6 Red Cell Distribution Width 15.0 H Platelet Count 203 Mean Platelet Volume 11.0 H Neutrophils % 65.6 Lymphocytes % 20.7 Monocytes % 7.7 Eosinophils % 3.4 Basophils % 0.6 Nucleated Red Blood Cells % 0.0 Neutrophils # 8.4 H Lymphocytes # 2.7 Monocytes # 1.0 H Eosinophils # 0.4 Basophils # 0.1 Nucleated Red Blood Cells # 0.0 Erythrocyte Sedimentation Rate 70 H Sodium Level 137 Potassium Level 3.3 L Chloride Level 100 Carbon Dioxide Level 25 Anion Gap 15 # Blood Urea Nitrogen 20 Creatinine 1.00 Glucose Level 175 Calcium Level 8.6 C-Reactive Protein 3.1 H Test 11/24/16 08:03 11/24/16 12:01 Bedside Glucose 158 161 Medications Current Medications Miscellaneous Information 1 ea NOTE XX ; Start 11/12/16 at 08:30 Glucose (Glutose) 15 gm Q15M PRN PO DECREASED GLUCOSE; Start 11/12/16 at 08:30 Glucose (Glutose) 22.5 gm Q15M PRN PO DECREASED GLUCOSE; Start 11/12/16 at 08: 30 Dextrose (D50w Syringe) 25 ml Q15M PRN IV DECREASED GLUCOSE; Start 11/12/16 at 08:30 Dextrose (D50w Syringe) 50 ml Q15M PRN IV DECREASED GLUCOSE; Start 11/12/16 at 08:30 Glucagon (Glucagen) 1 mg Q15M PRN IM DECREASED GLUCOSE; Start 11/12/16 at 08:30 Glucose (Glutose) 15 gm Q15M PRN BUCCAL DECREASED GLUCOSE; Start 11/12/16 at 08 :30 Collagenase (Santyl) 1 applic DAILY TOP Last administered on 11/24/16 08:05; Admin Dose 1 APPLIC; Start 11/16/16 at 09:00 Miscellaneous Information (Pending Santyl Order For Wound Care) This patient jean baptiste... PRN PRN XX WOUND CARE; Start 11/15/16 at 18:30 Hydralazine HCl (Apresoline) 10 mg Q4H PRN IV ELEVATED BLOOD PRESSURE Last administered on 11/22/16 20:48; Admin Dose 10 MG; Start 11/15/16 at 20:30 Amlodipine Besylate (Norvasc) 5 mg DAILY PO Last administered on 11/24/16 08:05 ; Admin Dose 5 MG; Start 11/17/16 at 09:00 Acetaminophen (Tylenol Tab) 650 mg Q6H PRN PO PAIN AND OR ELEVATED TEMP Last administered on 11/21/16 09:49; Admin Dose 650 MG; Start 11/16/16 at 14:00 Methadone HCl (Methadone) 10 mg Q8 PRN PO pain Last administered on 11/24/16 05 :05; Admin Dose 10 MG; Start 11/16/16 at 14:00; Status Future hold Aspirin (Aspirin) 81 mg DAILY PO Last administered on 11/24/16 08:05; Admin Dose 81 MG; Start 11/18/16 at 09:00 Atorvastatin Calcium (Lipitor) 20 mg HS PO Last administered on 11/23/16 20:28 ; Admin Dose 20 MG; Start 11/17/16 at 21:00 Metoprolol Tartrate (Lopressor) 25 mg BID PO Last administered on 11/24/16 08: 05; Admin Dose 25 MG; Start 11/18/16 at 11:30 Pantoprazole (Protonix Tab) 40 mg DAILY@06 PO Last administered on 11/24/16 05: 05; Admin Dose 40 MG; Start 11/19/16 at 06:00 Diagnostic Test (Pha) (Accu-Chek) 1 ea 02 XX Last administered on 11/22/16 01: 59; Admin Dose 1 EA; Start 11/19/16 at 02:00 Enoxaparin Sodium 60 mg 60 mg Q24H SC Last administered on 11/23/16 20:29; Admin Dose 60 MG; Start 11/18/16 at 21:00 Dextrose (D5W) 1,000 ml @ 40 mls/hr Q24H IV Last administered on 11/24/16 12: 05; Admin Dose 40 MLS/HR; Start 11/19/16 at 14:00 Insulin Human NPH (Humulin N) 20 unit DAILY@20 SC Last administered on 20:32; Admin Dose 20 UNIT; Start 11/19/16 at 20:00 Losartan Potassium (Cozaar) 100 mg DAILY PO Last administered on 11/24/16 08:04 ; Admin Dose 100 MG; Start 11/20/16 at 09:00 Insulin Human NPH (Humulin N) 25 unit DAILY@08 SC Last administered on 08:21; Admin Dose 25 UNIT; Start 11/20/16 at 08:00 Ciprofloxacin (Cipro) 500 mg BID@06,18 PO Last administered on 11/24/16 05:05; Admin Dose 500 MG; Start 11/23/16 at 18:00 Doxycycline Hyclate (Vibramycin) 100 mg BID PO Last administered on 11/24/16 08 :04; Admin Dose 100 MG; Start 11/23/16 at 09:00 Risperidone (Risperdal) 0.25 mg BID PRN PO anxiety Last administered on 08:04; Admin Dose 0.25 MG; Start 11/24/16 at 07:30 Diphenhydramine HCl (Benadryl) 25 mg HS PRN PO insomnia; Start 11/24/16 at 07:30 Assessment/Plan Chief Complaint/Hosp Course IMP: s/p Sepsis s/p Respiratory failure status post extubation Peripheral atrial disease Encephalopathy Paroxysmal atrial fibrillation UE DVT RECS: 1. Continue anticoagulation 2. ICS 3. Aspiration precautions 4. PT/OT Consider transfer to [facility]. IN planning okay from pulmonary standpoint Problems: SHARON RICHARD MD, [facility] Nov 24, 2016 12:44
[2016-11-24] MEDS ORDERED: POTASSIUM CHLORIDE (SR) 20 MEQ TAB PO STA (19:15)
--- NOTE | 2016-11-24 19:23 | PN ---
Date/Time of Note Date/Time of Note DATE: 11/24/16 TIME: 08:18 Assessment/Plan VTE Prophylaxis VTE Prophylaxis Intervention: other (lovenox) Lines/Catheters IV Catheter Type (from Nrsg): Central Line Central line still needed: No Urinary Cath still in place: Yes Reason Cath still needed: terminal illness/intractable pain Assessment/Plan Assessment/Plan 1. sepsis/ uti 2. rld 3. a fib/ htn/ chf 4. arf/ low k 5. encephalopathy 6. dementia/ anxiety 7. ue dvt ---per ID, cont atbx ---per pulm ---per cards ---k supp ---cont atcoag ---add risperdal 0.25mg bid prn ---spoke w/ son, who wants his mom to go to [facility] Subjective 24 Hr Interval Summary Free Text/Dictation lying in bed, lymphaedema, no speaking Exam/Review of Systems Vital Signs Vitals Vital Signs Date Time Temp Pulse Resp B/P Pulse Ox O2 Delivery O2 Flow Rate FiO2 11/24/16 16:07 71 11/24/16 15:10 98.5 18 140/67 97 11/24/16 14:03 Nasal Cannula 2.0 Intake and Output 11/23/16 11/23/16 11/24/16 15:00 23:00 07:00 Intake Total 550 ml 900 ml Output Total 500 ml 1400 ml Balance 50 ml -500 ml Exam obese, dec bb, irreg irreg, soft abd, +1-2 diffuse edema ue Results Result Diagram: 11/24/16 0610 11/24/16 0610 Results 24 hrs Laboratory Tests Test 11/23/16 20:25 11/24/16 02:14 11/24/16 06:10 11/24/16 08:03 Bedside Glucose 177 184 158 White Blood Count 12.8 #H Red Blood Count 3.55 L Hemoglobin 10.7 L Hematocrit 31.8 L Mean Corpuscular Volume 89.6 Mean Corpuscular Hemoglobin 30.1 Mean Corpuscular Hemoglobin Concent 33.6 Red Cell Distribution Width 15.0 H Platelet Count 203 Mean Platelet Volume 11.0 H Neutrophils % 65.6 Lymphocytes % 20.7 Monocytes % 7.7 Eosinophils % 3.4 Basophils % 0.6 Nucleated Red Blood Cells % 0.0 Neutrophils # 8.4 H Lymphocytes # 2.7 Monocytes # 1.0 H Eosinophils # 0.4 Basophils # 0.1 Nucleated Red Blood Cells # 0.0 Erythrocyte Sedimentation Rate 70 H Sodium Level 137 Potassium Level 3.3 L Chloride Level 100 Carbon Dioxide Level 25 Anion Gap 15 # Blood Urea Nitrogen 20 Creatinine 1.00 Glucose Level 175 Calcium Level 8.6 C-Reactive Protein 3.1 H Test 11/24/16 12:01 11/24/16 17:17 Bedside Glucose 161 110 Medications Medications Current Medications Miscellaneous Information 1 ea NOTE XX ; Start 11/12/16 at 08:30 Glucose (Glutose) 15 gm Q15M PRN PO DECREASED GLUCOSE; Start 11/12/16 at 08:30 Glucose (Glutose) 22.5 gm Q15M PRN PO DECREASED GLUCOSE; Start 11/12/16 at 08: 30 Dextrose (D50w Syringe) 25 ml Q15M PRN IV DECREASED GLUCOSE; Start 11/12/16 at 08:30 Dextrose (D50w Syringe) 50 ml Q15M PRN IV DECREASED GLUCOSE; Start 11/12/16 at 08:30 Glucagon (Glucagen) 1 mg Q15M PRN IM DECREASED GLUCOSE; Start 11/12/16 at 08:30 Glucose (Glutose) 15 gm Q15M PRN BUCCAL DECREASED GLUCOSE; Start 11/12/16 at 08 :30 Collagenase (Santyl) 1 applic DAILY TOP Last administered on 11/24/16 08:05; Admin Dose 1 APPLIC; Start 11/16/16 at 09:00 Miscellaneous Information (Pending Santyl Order For Wound Care) This patient jean baptiste... PRN PRN XX WOUND CARE; Start 11/15/16 at 18:30 Hydralazine HCl (Apresoline) 10 mg Q4H PRN IV ELEVATED BLOOD PRESSURE Last administered on 11/22/16 20:48; Admin Dose 10 MG; Start 11/15/16 at 20:30 Amlodipine Besylate (Norvasc) 5 mg DAILY PO Last administered on 11/24/16 08:05 ; Admin Dose 5 MG; Start 11/17/16 at 09:00 Acetaminophen (Tylenol Tab) 650 mg Q6H PRN PO PAIN AND OR ELEVATED TEMP Last administered on 11/21/16 09:49; Admin Dose 650 MG; Start 11/16/16 at 14:00 Methadone HCl (Methadone) 10 mg Q8 PRN PO pain Last administered on 11/24/16 17 :18; Admin Dose 10 MG; Start 11/16/16 at 14:00; Status Future hold Aspirin (Aspirin) 81 mg DAILY PO Last administered on 11/24/16 08:05; Admin Dose 81 MG; Start 11/18/16 at 09:00 Atorvastatin Calcium (Lipitor) 20 mg HS PO Last administered on 11/23/16 20:28 ; Admin Dose 20 MG; Start 11/17/16 at 21:00 Metoprolol Tartrate (Lopressor) 25 mg BID PO Last administered on 11/24/16 08: 05; Admin Dose 25 MG; Start 11/18/16 at 11:30 Pantoprazole (Protonix Tab) 40 mg DAILY@06 PO Last administered on 11/24/16 05: 05; Admin Dose 40 MG; Start 11/19/16 at 06:00 Diagnostic Test (Pha) (Accu-Chek) 1 ea 02 XX Last administered on 11/22/16 01: 59; Admin Dose 1 EA; Start 11/19/16 at 02:00 Enoxaparin Sodium 60 mg 60 mg Q24H SC Last administered on 11/23/16 20:29; Admin Dose 60 MG; Start 11/18/16 at 21:00 Dextrose (D5W) 1,000 ml @ 40 mls/hr Q24H IV Last administered on 11/24/16 12: 05; Admin Dose 40 MLS/HR; Start 11/19/16 at 14:00 Insulin Human NPH (Humulin N) 20 unit DAILY@20 SC Last administered on 20:32; Admin Dose 20 UNIT; Start 11/19/16 at 20:00 Losartan Potassium (Cozaar) 100 mg DAILY PO Last administered on 11/24/16 08:04 ; Admin Dose 100 MG; Start 11/20/16 at 09:00 Insulin Human NPH (Humulin N) 25 unit DAILY@08 SC Last administered on 08:21; Admin Dose 25 UNIT; Start 11/20/16 at 08:00 Ciprofloxacin (Cipro) 500 mg BID@06,18 PO Last administered on 11/24/16 17:18; Admin Dose 500 MG; Start 11/23/16 at 18:00 Doxycycline Hyclate (Vibramycin) 100 mg BID PO Last administered on 11/24/16 08 :04; Admin Dose 100 MG; Start 11/23/16 at 09:00 Risperidone (Risperdal) 0.25 mg BID PRN PO anxiety Last administered on 08:04; Admin Dose 0.25 MG; Start 11/24/16 at 07:30 Diphenhydramine HCl (Benadryl) 25 mg HS PRN PO insomnia; Start 11/24/16 at 07:30 ELAN MILES MD Nov 24, 2016 19:23
[2016-11-24] MEDS: ATORVASTATIN 20 MG TAB PO SCH (20:58)
[2016-11-24] MEDS: ENOXAPARIN 60 MG/0.6 ML SYG SC SCH (21:01)
[2016-11-25] VITALS (11 sets, daily range): BP systolic 93–179; BP diastolic 52–74; PULSE 53–66; RESP 18–20
[2016-11-25] MEDS: ACCUCHECK AT 2AM (Patients on SS coverage) XX SCH (02:00)
[2016-11-25] MEDS: LEVALBUTEROL (NEB) 0.63 MG/3 ML AMP HHN SCH ×4 (02:20→20:09)
[2016-11-25] MEDS: IPRATROPIUM (NEB) 0.5 MG/2.5 ML AMP HHN SCH ×4 (02:20→20:09)
[2016-11-25] MEDS: PANTOPRAZOLE (EC) 40 MG TAB PO SCH (05:51)
[2016-11-25] MEDS: CIPROFLOXACIN 500 MG TAB PO SCH ×2 (05:51→17:24)
[2016-11-25 06:43] LABS: ADD SCAN DIFF NO
[2016-11-25 06:52] LABS: BASOPHIL # 0.1 10^3/ul (0.0-0.1); BASOPHILS % 0.7 % (0.0-2.0); EOSINOPHILS # 0.4 10^3/ul (0.0-0.5); HEMATOCRIT 32.5 % (37.0-47.0); HEMOGLOBIN 10.7 g/dl (12.0-16.0); LYMPHOCYTES # 2.6 10^3/ul (0.8-2.9); LYMPHOCYTES % 23.1 % (15.0-51.0); MEAN CORPUSCULAR HEMOGLOBIN 29.7 pg (29.0-33.0); MEAN CORPUSCULAR HGB CONC 32.9 g/dl (32.0-37.0); MEAN CORPUSCULAR VOLUME 90.3 fl (82.0-101.0); MONOCYTE # 1.1 10^3/ul (0.3-0.9); MONOCYTES % 9.5 % (0.0-11.0); NEUTROPHIL # 6.7 10^3/ul (1.6-7.5); NEUTROPHILS % 60.8 % (39.0-77.0); PLATELET COUNT 195 10^3/UL (140-415); RED CELL DISTRIBUTION WIDTH 15.1 % (11.5-14.5)
--- NOTE | 2016-11-25 07:14 | CONS ---
Date/Time of Note Date/Time of Note DATE: 11/25/16 TIME: 07:10 Assessment/Plan Assessment/Plan Chief Complaint/Hosp Course 1) asp pneumonia continue with vanco/merrem to cover resistant organisms 11/13 - sputum cx ordered no change 11/16 - sputum cx never sent off continue with vanco/merrem for 8-10 day course 11/18 - wbc is improved, continue vanco/merrem thru 11/21 then change back to po cipro/doxy thru 12/11 11/20 - wbc is back to normal, if it remains normal will change to cipro/doxy tomorrow 11/23 - WBC is normal again d/c vanco/merrem and start cipro/doxy 2) pyuria and possible UTI await maturation of urine cx 11/13 - urine cx is pending 11/16 - urine cx was negative for bacteria, just yeast 3) L heal osteo s/p debridement about a week ago merrem will cover the kleb that was there before repeat wound cx 11/13 - wound cx is pending 11/13 - wound cx did not grow any aggressive bacteria 11/18 - will change back to cipro/doxy when done with iv antibiotics check esr, crp in a.m. 11/20 - both crp and esr were higher but this may be related to her pneumonia will re-check next week will change to cipro/doxy soon and continue these thru 12/11 11/23 - d/c vanco/merrem and start cipro/doxy continue cipro/doxy thru 12/11 check esr, crp in a.m. 11/25 - ESR and CRP are down continue with cipro/doxy thru 12/11 recommend weekly esr, CRP and if continuing to improve can extend antibiotic course another two weeks i will sign off on case 4) PVD no reversible stenosis found to LLE 5) GPR in blood cx (bacillus species) 11/13 - this likely is a contaminant repeat blood cx this a.m. 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 Problems: Consultation Date/Type/Reason Admit Date/Time Nov 12, 2016 at 05:22 Initial Consult Date 11/12/16 Type of Consultation: ID 24 HR Interval Summary Free Text/Dictation spoke to sitter rare cough now no V, D eating well Subjective hx not possible: pt non-verbal Exam/Review of Systems Vital Signs Vitals Vital Signs Date Time Temp Pulse Resp B/P Pulse Ox O2 Delivery O2 Flow Rate FiO2 11/25/16 04:05 53 11/25/16 04:00 98.0 20 144/60 99 11/25/16 02:23 2.0 11/25/16 02:23 Nasal Cannula Intake and Output 11/24/16 11/24/16 11/25/16 15:00 23:00 07:00 Intake Total 880 ml 980 ml Output Total 800 ml 1100 ml Balance 80 ml -120 ml Exam Constitutional: alert Respiratory: clear to auscultation Cardiovascular: regular rate and rhythm Gastrointestinal: non-tender, soft Extremities: other (L heal is bandaged, picture from 11/22 shows no erythema, central ulcer with healthy skin surrounded by eschar) Results Result Diagram: 11/25/16 0559 11/24/16 0610 Results 24 hrs Laboratory Tests Test 11/24/16 08:03 11/24/16 12:01 11/24/16 17:17 11/24/16 20:13 Bedside Glucose 158 161 110 109 Test 11/25/16 02:01 11/25/16 05:59 Bedside Glucose 89 White Blood Count 11.0 H Red Blood Count 3.60 L Hemoglobin 10.7 L Hematocrit 32.5 L Mean Corpuscular Volume 90.3 Mean Corpuscular Hemoglobin 29.7 Mean Corpuscular Hemoglobin Concent 32.9 Red Cell Distribution Width 15.1 H Platelet Count 195 Mean Platelet Volume 11.0 H Neutrophils % 60.8 Lymphocytes % 23.1 Monocytes % 9.5 Eosinophils % 4.0 Basophils % 0.7 Nucleated Red Blood Cells % 0.0 Neutrophils # 6.7 Lymphocytes # 2.6 Monocytes # 1.1 H Eosinophils # 0.4 Basophils # 0.1 Nucleated Red Blood Cells # 0.0 Medications Medications Current Medications Miscellaneous Information 1 ea NOTE XX ; Start 11/12/16 at 08:30 Glucose (Glutose) 15 gm Q15M PRN PO DECREASED GLUCOSE; Start 11/12/16 at 08:30 Glucose (Glutose) 22.5 gm Q15M PRN PO DECREASED GLUCOSE; Start 11/12/16 at 08: 30 Dextrose (D50w Syringe) 25 ml Q15M PRN IV DECREASED GLUCOSE; Start 11/12/16 at 08:30 Dextrose (D50w Syringe) 50 ml Q15M PRN IV DECREASED GLUCOSE; Start 11/12/16 at 08:30 Glucagon (Glucagen) 1 mg Q15M PRN IM DECREASED GLUCOSE; Start 11/12/16 at 08:30 Glucose (Glutose) 15 gm Q15M PRN BUCCAL DECREASED GLUCOSE; Start 11/12/16 at 08 :30 Collagenase (Santyl) 1 applic DAILY TOP Last administered on 11/24/16 08:05; Admin Dose 1 APPLIC; Start 11/16/16 at 09:00 Miscellaneous Information (Pending Santyl Order For Wound Care) This patient jean baptiste... PRN PRN XX WOUND CARE; Start 11/15/16 at 18:30 Hydralazine HCl (Apresoline) 10 mg Q4H PRN IV ELEVATED BLOOD PRESSURE Last administered on 11/22/16 20:48; Admin Dose 10 MG; Start 11/15/16 at 20:30 Amlodipine Besylate (Norvasc) 5 mg DAILY PO Last administered on 11/24/16 08:05 ; Admin Dose 5 MG; Start 11/17/16 at 09:00 Acetaminophen (Tylenol Tab) 650 mg Q6H PRN PO PAIN AND OR ELEVATED TEMP Last administered on 11/21/16 09:49; Admin Dose 650 MG; Start 11/16/16 at 14:00 Methadone HCl (Methadone) 10 mg Q8 PRN PO pain Last administered on 11/24/16 17 :18; Admin Dose 10 MG; Start 11/16/16 at 14:00; Status Future hold Aspirin (Aspirin) 81 mg DAILY PO Last administered on 11/24/16 08:05; Admin Dose 81 MG; Start 11/18/16 at 09:00 Atorvastatin Calcium (Lipitor) 20 mg HS PO Last administered on 11/24/16 20:58 ; Admin Dose 20 MG; Start 11/17/16 at 21:00 Metoprolol Tartrate (Lopressor) 25 mg BID PO Last administered on 11/24/16 20: 58; Admin Dose 25 MG; Start 11/18/16 at 11:30 Pantoprazole (Protonix Tab) 40 mg DAILY@06 PO Last administered on 11/25/16 05: 51; Admin Dose 40 MG; Start 11/19/16 at 06:00 Diagnostic Test (Pha) (Accu-Chek) 1 ea 02 XX Last administered on 11/22/16 01: 59; Admin Dose 1 EA; Start 11/19/16 at 02:00 Enoxaparin Sodium 60 mg 60 mg Q24H SC Last administered on 11/24/16 21:01; Admin Dose 60 MG; Start 11/18/16 at 21:00 Dextrose (D5W) 1,000 ml @ 40 mls/hr Q24H IV Last administered on 11/24/16 12: 05; Admin Dose 40 MLS/HR; Start 11/19/16 at 14:00 Insulin Human NPH (Humulin N) 20 unit DAILY@20 SC Last administered on 20:17; Admin Dose 20 UNIT; Start 11/19/16 at 20:00 Losartan Potassium (Cozaar) 100 mg DAILY PO Last administered on 11/24/16 08:04 ; Admin Dose 100 MG; Start 11/20/16 at 09:00 Insulin Human NPH (Humulin N) 25 unit DAILY@08 SC Last administered on 08:21; Admin Dose 25 UNIT; Start 11/20/16 at 08:00 Ciprofloxacin (Cipro) 500 mg BID@06,18 PO Last administered on 11/25/16 05:51; Admin Dose 500 MG; Start 11/23/16 at 18:00 Doxycycline Hyclate (Vibramycin) 100 mg BID PO Last administered on 11/24/16 20 :58; Admin Dose 100 MG; Start 11/23/16 at 09:00 Risperidone (Risperdal) 0.25 mg BID PRN PO anxiety Last administered on 20:58; Admin Dose 0.25 MG; Start 11/24/16 at 07:30 Diphenhydramine HCl (Benadryl) 25 mg HS PRN PO insomnia; Start 11/24/16 at 07:30 ANTHONY WOODARD MD Nov 25, 2016 07:14
[2016-11-25 07:19] LABS: CREATININE 1.13 mg/dl (0.44-1.00); POTASSIUM 3.8 mmol/L (3.5-5.1)
[2016-11-25] MEDS: Insulin NOVOLOG SS MILD Algorithm (SS with meals and bedtime) SC SCH ×4 (07:25→21:49)
[2016-11-25] MEDS: DOXYCYCLINE 100 MG TAB PO SCH ×2 (08:51→21:08)
[2016-11-25] MEDS: AMLODIPINE 5 MG TAB PO SCH ×2 (08:52→21:00)
[2016-11-25] MEDS: ASPIRIN 81 MG TAB PO SCH (08:52)
[2016-11-25] MEDS: METOPROLOL 25 MG TAB PO SCH ×2 (08:52→21:00)
[2016-11-25] MEDS: LOSARTAN 50 MG TAB PO SCH (08:53)
[2016-11-25] MEDS: COLLAGENASE 30 GM TUBE TOP SCH (08:54)
[2016-11-25] MEDS: NPH, HUMAN INSULIN ISOPHANE 3ML VIAL SC SCH ×2 (09:02→21:48)
--- NOTE | 2016-11-25 12:51 | CONS ---
Date/Time of Note Date/Time of Note DATE: 11/25/16 TIME: 12:50 Assessment/Plan Assessment/Plan Additional Assessment/Plan Sepsis Respiratory failure status post extubation Peripheral atrial disease Encephalopathy Mildly elevated troponin Acute kidney injury Paroxysmal atrial fibrillation -Patient remains in sinus rhythm. Blood pressure trend remains elevated, would increase Norvasc to twice daily dosing. Consultation Date/Type/Reason Admit Date/Time Nov 12, 2016 at 05:22 Initial Consult Date 11/12/16 Type of Consultation: cv 24 HR Interval Summary Free Text/Dictation Patient seen and examined. No shortness of breath or palpitations Exam/Review of Systems Vital Signs Vitals Vital Signs Date Time Temp Pulse Resp B/P Pulse Ox O2 Delivery O2 Flow Rate FiO2 11/25/16 12:10 58 11/25/16 11:16 98.5 18 157/70 98 11/25/16 08:27 2.0 11/25/16 08:25 Nasal Cannula Intake and Output 11/24/16 11/24/16 11/25/16 15:00 23:00 07:00 Intake Total 880 ml 980 ml Output Total 800 ml 1100 ml Balance 80 ml -120 ml Exam No apparent distress, family at bedside, following commands Constitutional: alert Head: normocephalic Respiratory: other (Coarse breath sounds bilaterally, no wheezing) Cardiovascular: other (S1-S2 heard), regular rate and rhythm Gastrointestinal: bowel sounds, non-tender, soft Extremities: edema (Trace) Results Result Diagram: 11/25/16 0559 11/25/16 0554 Results 24 hrs Laboratory Tests Test 11/24/16 17:17 11/24/16 20:13 11/25/16 02:01 11/25/16 05:54 Bedside Glucose 110 109 89 Sodium Level 141 Potassium Level 3.8 Chloride Level 102 Carbon Dioxide Level 26 Anion Gap 17 H Blood Urea Nitrogen 16 Creatinine 1.13 H Glucose Level 110 # Calcium Level 9.0 Test 11/25/16 05:59 11/25/16 08:43 11/25/16 12:13 White Blood Count 11.0 H Red Blood Count 3.60 L Hemoglobin 10.7 L Hematocrit 32.5 L Mean Corpuscular Volume 90.3 Mean Corpuscular Hemoglobin 29.7 Mean Corpuscular Hemoglobin Concent 32.9 Red Cell Distribution Width 15.1 H Platelet Count 195 Mean Platelet Volume 11.0 H Neutrophils % 60.8 Lymphocytes % 23.1 Monocytes % 9.5 Eosinophils % 4.0 Basophils % 0.7 Nucleated Red Blood Cells % 0.0 Neutrophils # 6.7 Lymphocytes # 2.6 Monocytes # 1.1 H Eosinophils # 0.4 Basophils # 0.1 Nucleated Red Blood Cells # 0.0 Bedside Glucose 113 198 Medications Medications Current Medications Miscellaneous Information 1 ea NOTE XX ; Start 11/12/16 at 08:30 Glucose (Glutose) 15 gm Q15M PRN PO DECREASED GLUCOSE; Start 11/12/16 at 08:30 Glucose (Glutose) 22.5 gm Q15M PRN PO DECREASED GLUCOSE; Start 11/12/16 at 08: 30 Dextrose (D50w Syringe) 25 ml Q15M PRN IV DECREASED GLUCOSE; Start 11/12/16 at 08:30 Dextrose (D50w Syringe) 50 ml Q15M PRN IV DECREASED GLUCOSE; Start 11/12/16 at 08:30 Glucagon (Glucagen) 1 mg Q15M PRN IM DECREASED GLUCOSE; Start 11/12/16 at 08:30 Glucose (Glutose) 15 gm Q15M PRN BUCCAL DECREASED GLUCOSE; Start 11/12/16 at 08 :30 Collagenase (Santyl) 1 applic DAILY TOP Last administered on 11/25/16 08:54; Admin Dose 1 APPLIC; Start 11/16/16 at 09:00 Miscellaneous Information (Pending Santyl Order For Wound Care) This patient jean baptiste... PRN PRN XX WOUND CARE; Start 11/15/16 at 18:30 Hydralazine HCl (Apresoline) 10 mg Q4H PRN IV ELEVATED BLOOD PRESSURE Last administered on 11/22/16 20:48; Admin Dose 10 MG; Start 11/15/16 at 20:30 Amlodipine Besylate (Norvasc) 5 mg DAILY PO Last administered on 11/25/16 08:52 ; Admin Dose 5 MG; Start 11/17/16 at 09:00 Acetaminophen (Tylenol Tab) 650 mg Q6H PRN PO PAIN AND OR ELEVATED TEMP Last administered on 11/21/16 09:49; Admin Dose 650 MG; Start 11/16/16 at 14:00 Methadone HCl (Methadone) 10 mg Q8 PRN PO pain Last administered on 11/24/16 17 :18; Admin Dose 10 MG; Start 11/16/16 at 14:00; Status Future hold Aspirin (Aspirin) 81 mg DAILY PO Last administered on 11/25/16 08:52; Admin Dose 81 MG; Start 11/18/16 at 09:00 Atorvastatin Calcium (Lipitor) 20 mg HS PO Last administered on 11/24/16 20:58 ; Admin Dose 20 MG; Start 11/17/16 at 21:00 Metoprolol Tartrate (Lopressor) 25 mg BID PO Last administered on 11/25/16 08: 52; Admin Dose 25 MG; Start 11/18/16 at 11:30 Pantoprazole (Protonix Tab) 40 mg DAILY@06 PO Last administered on 11/25/16 05: 51; Admin Dose 40 MG; Start 11/19/16 at 06:00 Diagnostic Test (Pha) (Accu-Chek) 1 ea 02 XX Last administered on 11/22/16 01: 59; Admin Dose 1 EA; Start 11/19/16 at 02:00 Enoxaparin Sodium 60 mg 60 mg Q24H SC Last administered on 11/24/16 21:01; Admin Dose 60 MG; Start 11/18/16 at 21:00 Dextrose (D5W) 1,000 ml @ 40 mls/hr Q24H IV Last administered on 11/24/16 12: 05; Admin Dose 40 MLS/HR; Start 11/19/16 at 14:00 Insulin Human NPH (Humulin N) 20 unit DAILY@20 SC Last administered on 20:17; Admin Dose 20 UNIT; Start 11/19/16 at 20:00 Losartan Potassium (Cozaar) 100 mg DAILY PO Last administered on 11/25/16 08:53 ; Admin Dose 100 MG; Start 11/20/16 at 09:00 Insulin Human NPH (Humulin N) 25 unit DAILY@08 SC Last administered on 09:02; Admin Dose 25 UNIT; Start 11/20/16 at 08:00 Ciprofloxacin (Cipro) 500 mg BID@06,18 PO Last administered on 11/25/16 05:51; Admin Dose 500 MG; Start 11/23/16 at 18:00 Doxycycline Hyclate (Vibramycin) 100 mg BID PO Last administered on 11/25/16 08 :51; Admin Dose 100 MG; Start 11/23/16 at 09:00 Risperidone (Risperdal) 0.25 mg BID PRN PO anxiety Last administered on t 20:58; Admin Dose 0.25 MG; Start 11/24/16 at 07:30 Diphenhydramine HCl (Benadryl) 25 mg HS PRN PO insomnia; Start 11/24/16 at 07:30 Tucker Jacome DO Nov 25, 2016 12:51
[2016-11-25] MEDS: DEXTROSE 5% 1,000 ML IV SCH (14:56)
--- NOTE | 2016-11-25 15:22 | PN ---
Date/Time of Note Date/Time of Note DATE: 11/25/16 TIME: 15:16 Assessment/Plan VTE Prophylaxis VTE Prophylaxis Intervention: other (lovenox) Lines/Catheters IV Catheter Type (from Nrsg): Central Line Central line still needed: No Urinary Cath still in place: Yes Reason Cath still needed: skin wounds contaminated by urine, terminal illness/ intractable pain Assessment/Plan Assessment/Plan 1. sepsis/ uti/ osteomyelitis 2. rld 3. dm 4. a fib/ htn/ pad 5. daquan/ edema 6. encephalopathy 7. depression/ dementia ---per ID, cont & finish off atbx ---per pulm ---per cards, inc norvasc ---d/c ivf ---transfer plan for tomorrow 77 am to [facility] via ambulance w/ all current meds convert all to po/sq forms Subjective 24 Hr Interval Summary Free Text/Dictation in bed, moaning, confused Exam/Review of Systems Vital Signs Vitals Vital Signs Date Time Temp Pulse Resp B/P Pulse Ox O2 Delivery O2 Flow Rate FiO2 11/25/16 12:10 58 11/25/16 11:16 98.5 18 157/70 98 11/25/16 08:27 2.0 11/25/16 08:25 Nasal Cannula Intake and Output 11/24/16 11/24/16 11/25/16 15:00 23:00 07:00 Intake Total 880 ml 980 ml Output Total 800 ml 1100 ml Balance 80 ml -120 ml Exam obese+, diffuse lymphaedema+, dec bs, irreg irreg, still w/ skin stasis ulcer lesions+ Results Result Diagram: 11/25/16 0559 11/25/16 0554 Results 24 hrs Laboratory Tests Test 11/24/16 17:17 11/24/16 20:13 11/25/16 02:01 11/25/16 05:54 Bedside Glucose 110 109 89 Sodium Level 141 Potassium Level 3.8 Chloride Level 102 Carbon Dioxide Level 26 Anion Gap 17 H Blood Urea Nitrogen 16 Creatinine 1.13 H Glucose Level 110 # Calcium Level 9.0 Test 11/25/16 05:59 11/25/16 08:43 11/25/16 12:13 White Blood Count 11.0 H Red Blood Count 3.60 L Hemoglobin 10.7 L Hematocrit 32.5 L Mean Corpuscular Volume 90.3 Mean Corpuscular Hemoglobin 29.7 Mean Corpuscular Hemoglobin Concent 32.9 Red Cell Distribution Width 15.1 H Platelet Count 195 Mean Platelet Volume 11.0 H Neutrophils % 60.8 Lymphocytes % 23.1 Monocytes % 9.5 Eosinophils % 4.0 Basophils % 0.7 Nucleated Red Blood Cells % 0.0 Neutrophils # 6.7 Lymphocytes # 2.6 Monocytes # 1.1 H Eosinophils # 0.4 Basophils # 0.1 Nucleated Red Blood Cells # 0.0 Bedside Glucose 113 198 Medications Medications Current Medications Miscellaneous Information 1 ea NOTE XX ; Start 11/12/16 at 08:30 Glucose (Glutose) 15 gm Q15M PRN PO DECREASED GLUCOSE; Start 11/12/16 at 08:30 Glucose (Glutose) 22.5 gm Q15M PRN PO DECREASED GLUCOSE; Start 11/12/16 at 08: 30 Dextrose (D50w Syringe) 25 ml Q15M PRN IV DECREASED GLUCOSE; Start 11/12/16 at 08:30 Dextrose (D50w Syringe) 50 ml Q15M PRN IV DECREASED GLUCOSE; Start 11/12/16 at 08:30 Glucagon (Glucagen) 1 mg Q15M PRN IM DECREASED GLUCOSE; Start 11/12/16 at 08:30 Glucose (Glutose) 15 gm Q15M PRN BUCCAL DECREASED GLUCOSE; Start 11/12/16 at 08 :30 Collagenase (Santyl) 1 applic DAILY TOP Last administered on 11/25/16 08:54; Admin Dose 1 APPLIC; Start 11/16/16 at 09:00 Miscellaneous Information (Pending Santyl Order For Wound Care) This patient jean baptiste... PRN PRN XX WOUND CARE; Start 11/15/16 at 18:30 Hydralazine HCl (Apresoline) 10 mg Q4H PRN IV ELEVATED BLOOD PRESSURE Last administered on 11/22/16 20:48; Admin Dose 10 MG; Start 11/15/16 at 20:30 Acetaminophen (Tylenol Tab) 650 mg Q6H PRN PO PAIN AND OR ELEVATED TEMP Last administered on 11/21/16 09:49; Admin Dose 650 MG; Start 11/16/16 at 14:00 Methadone HCl (Methadone) 10 mg Q8 PRN PO pain Last administered on 11/24/16 17 :18; Admin Dose 10 MG; Start 11/16/16 at 14:00; Status Future hold Aspirin (Aspirin) 81 mg DAILY PO Last administered on 11/25/16 08:52; Admin Dose 81 MG; Start 11/18/16 at 09:00 Atorvastatin Calcium (Lipitor) 20 mg HS PO Last administered on 11/24/16 20:58 ; Admin Dose 20 MG; Start 11/17/16 at 21:00 Metoprolol Tartrate (Lopressor) 25 mg BID PO Last administered on 11/25/16 08: 52; Admin Dose 25 MG; Start 11/18/16 at 11:30 Pantoprazole (Protonix Tab) 40 mg DAILY@06 PO Last administered on 11/25/16 05: 51; Admin Dose 40 MG; Start 11/19/16 at 06:00 Diagnostic Test (Pha) (Accu-Chek) 1 ea 02 XX Last administered on 11/22/16 01: 59; Admin Dose 1 EA; Start 11/19/16 at 02:00 Enoxaparin Sodium 60 mg 60 mg Q24H SC Last administered on 11/24/16 21:01; Admin Dose 60 MG; Start 11/18/16 at 21:00 Dextrose (D5W) 1,000 ml @ 40 mls/hr Q24H IV Last administered on 11/25/16 14: 56; Admin Dose 40 MLS/HR; Start 11/19/16 at 14:00 Insulin Human NPH (Humulin N) 20 unit DAILY@20 SC Last administered on 20:17; Admin Dose 20 UNIT; Start 11/19/16 at 20:00 Losartan Potassium (Cozaar) 100 mg DAILY PO Last administered on 11/25/16 08:53 ; Admin Dose 100 MG; Start 11/20/16 at 09:00 Insulin Human NPH (Humulin N) 25 unit DAILY@08 SC Last administered on 09:02; Admin Dose 25 UNIT; Start 11/20/16 at 08:00 Ciprofloxacin (Cipro) 500 mg BID@06,18 PO Last administered on 11/25/16 05:51; Admin Dose 500 MG; Start 11/23/16 at 18:00 Doxycycline Hyclate (Vibramycin) 100 mg BID PO Last administered on 11/25/16 08 :51; Admin Dose 100 MG; Start 11/23/16 at 09:00 Risperidone (Risperdal) 0.25 mg BID PRN PO anxiety Last administered on t 20:58; Admin Dose 0.25 MG; Start 11/24/16 at 07:30 Diphenhydramine HCl (Benadryl) 25 mg HS PRN PO insomnia; Start 11/24/16 at 07:30 Amlodipine Besylate (Norvasc) 5 mg BID PO ; Start 11/25/16 at 21:00 ELAN MILES MD Nov 25, 2016 15:21
[2016-11-25] MEDS: METHADONE 10 MG TAB PO PRN (15:35)
--- NOTE | 2016-11-25 16:07 | CONS ---
Date/Time of Note Date/Time of Note DATE: 11/25/16 TIME: 16:07 Consult Date/Type/Reason Admit Date/Time Nov 12, 2016 at 05:22 Initial Consult Date 11/12/16 Type of Consultation: Pulmonary Subjective Patient remains stable no new events Objective Vital Signs Date Time Temp Pulse Resp B/P Pulse Ox O2 Delivery O2 Flow Rate FiO2 11/25/16 16:06 66 11/25/16 16:03 98.5 18 179/70 98 11/25/16 14:47 Nasal Cannula 2.0 Intake and Output 11/24/16 11/24/16 11/25/16 14:59 22:59 06:59 Intake Total 880 ml 980 ml Output Total 800 ml 1100 ml Balance 80 ml -120 ml Exam GENERAL: Elderly lady comfortable at rest no acute distress VITAL SIGNS: per chart NECK: Supple. No JVD or lymphadenopathy. CARDIAC EXAM: S1, S2. No added sounds or murmurs. CHEST: clear bilaterally, No added sounds, rales or wheezes ABDOMEN: Soft, nontender. No guarding or rebound. EXTREMITIES: No cyanosis, clubbing or edema. NEUROLOGIC: Generalized weakness. No focal deficits. Results/Medications Result Diagram: 11/25/16 0559 11/25/16 0554 Results 24 hrs Laboratory Tests Test 11/24/16 17:17 11/24/16 20:13 11/25/16 02:01 11/25/16 05:54 Bedside Glucose 110 109 89 Sodium Level 141 Potassium Level 3.8 Chloride Level 102 Carbon Dioxide Level 26 Anion Gap 17 H Blood Urea Nitrogen 16 Creatinine 1.13 H Glucose Level 110 # Calcium Level 9.0 Test 11/25/16 05:59 11/25/16 08:43 11/25/16 12:13 White Blood Count 11.0 H Red Blood Count 3.60 L Hemoglobin 10.7 L Hematocrit 32.5 L Mean Corpuscular Volume 90.3 Mean Corpuscular Hemoglobin 29.7 Mean Corpuscular Hemoglobin Concent 32.9 Red Cell Distribution Width 15.1 H Platelet Count 195 Mean Platelet Volume 11.0 H Neutrophils % 60.8 Lymphocytes % 23.1 Monocytes % 9.5 Eosinophils % 4.0 Basophils % 0.7 Nucleated Red Blood Cells % 0.0 Neutrophils # 6.7 Lymphocytes # 2.6 Monocytes # 1.1 H Eosinophils # 0.4 Basophils # 0.1 Nucleated Red Blood Cells # 0.0 Bedside Glucose 113 198 Medications Current Medications Miscellaneous Information 1 ea NOTE XX ; Start 11/12/16 at 08:30 Glucose (Glutose) 15 gm Q15M PRN PO DECREASED GLUCOSE; Start 11/12/16 at 08:30 Glucose (Glutose) 22.5 gm Q15M PRN PO DECREASED GLUCOSE; Start 11/12/16 at 08: 30 Dextrose (D50w Syringe) 25 ml Q15M PRN IV DECREASED GLUCOSE; Start 11/12/16 at 08:30 Dextrose (D50w Syringe) 50 ml Q15M PRN IV DECREASED GLUCOSE; Start 11/12/16 at 08:30 Glucagon (Glucagen) 1 mg Q15M PRN IM DECREASED GLUCOSE; Start 11/12/16 at 08:30 Glucose (Glutose) 15 gm Q15M PRN BUCCAL DECREASED GLUCOSE; Start 11/12/16 at 08 :30 Collagenase (Santyl) 1 applic DAILY TOP Last administered on 11/25/16 08:54; Admin Dose 1 APPLIC; Start 11/16/16 at 09:00 Miscellaneous Information (Pending Santyl Order For Wound Care) This patient jean baptiste... PRN PRN XX WOUND CARE; Start 11/15/16 at 18:30 Hydralazine HCl (Apresoline) 10 mg Q4H PRN IV ELEVATED BLOOD PRESSURE Last administered on 11/22/16 20:48; Admin Dose 10 MG; Start 11/15/16 at 20:30 Acetaminophen (Tylenol Tab) 650 mg Q6H PRN PO PAIN AND OR ELEVATED TEMP Last administered on 11/21/16 09:49; Admin Dose 650 MG; Start 11/16/16 at 14:00 Methadone HCl (Methadone) 10 mg Q8 PRN PO pain Last administered on 11/25/16 15 :35; Admin Dose 10 MG; Start 11/16/16 at 14:00; Status Future hold Aspirin (Aspirin) 81 mg DAILY PO Last administered on 11/25/16 08:52; Admin Dose 81 MG; Start 11/18/16 at 09:00 Atorvastatin Calcium (Lipitor) 20 mg HS PO Last administered on 11/24/16 20:58 ; Admin Dose 20 MG; Start 11/17/16 at 21:00 Metoprolol Tartrate (Lopressor) 25 mg BID PO Last administered on 11/25/16 08: 52; Admin Dose 25 MG; Start 11/18/16 at 11:30 Pantoprazole (Protonix Tab) 40 mg DAILY@06 PO Last administered on 11/25/16 05: 51; Admin Dose 40 MG; Start 11/19/16 at 06:00 Diagnostic Test (Pha) (Accu-Chek) 1 ea 02 XX Last administered on 11/22/16 01: 59; Admin Dose 1 EA; Start 11/19/16 at 02:00 Enoxaparin Sodium (Lovenox) 60 mg Q24H SC Last administered on 11/24/16 21:01; Admin Dose 60 MG; Start 11/18/16 at 21:00 Insulin Human NPH (Humulin N) 20 unit DAILY@20 SC Last administered on 20:17; Admin Dose 20 UNIT; Start 11/19/16 at 20:00 Losartan Potassium (Cozaar) 100 mg DAILY PO Last administered on 11/25/16 08:53 ; Admin Dose 100 MG; Start 11/20/16 at 09:00 Insulin Human NPH (Humulin N) 25 unit DAILY@08 SC Last administered on 09:02; Admin Dose 25 UNIT; Start 11/20/16 at 08:00 Ciprofloxacin (Cipro) 500 mg BID@06,18 PO Last administered on 11/25/16 05:51; Admin Dose 500 MG; Start 11/23/16 at 18:00 Doxycycline Hyclate (Vibramycin) 100 mg BID PO Last administered on 11/25/16 08 :51; Admin Dose 100 MG; Start 11/23/16 at 09:00 Risperidone (Risperdal) 0.25 mg BID PRN PO anxiety Last administered on 20:58; Admin Dose 0.25 MG; Start 11/24/16 at 07:30 Diphenhydramine HCl (Benadryl) 25 mg HS PRN PO insomnia; Start 11/24/16 at 07:30 Amlodipine Besylate (Norvasc) 5 mg BID PO ; Start 11/25/16 at 21:00 Assessment/Plan Chief Complaint/Hosp Course IMP: s/p Sepsis s/p Respiratory failure status post extubation Peripheral atrial disease Encephalopathy Paroxysmal atrial fibrillation UE DVT RECS: 1. Continue anticoagulation 2. ICS 3. Aspiration precautions 4. PT/OT Consider transfer to [facility]. [place] planning okay from pulmonary standpoint Problems: SHARON RICHARD MD, [facility] Nov 25, 2016 16:07
[2016-11-25] MEDS: hydrALAzine 20 MG INJ IV PRN (17:25)
[2016-11-25] MEDS: ATORVASTATIN 20 MG TAB PO SCH (21:08)
[2016-11-25] MEDS: ENOXAPARIN 60 MG/0.6 ML SYG SC SCH (21:22)
[2016-11-26] VITALS (12 sets, daily range): BP systolic 117–158; BP diastolic 53–70; PULSE 58–65; RESP 16–62
[2016-11-26] MEDS: LEVALBUTEROL (NEB) 0.63 MG/3 ML AMP HHN SCH ×4 (01:12→20:15)
[2016-11-26] MEDS: IPRATROPIUM (NEB) 0.5 MG/2.5 ML AMP HHN SCH ×4 (01:12→20:15)
[2016-11-26] MEDS: ACCUCHECK AT 2AM (Patients on SS coverage) XX SCH (02:46)
[2016-11-26] MEDS: CIPROFLOXACIN 500 MG TAB PO SCH ×2 (05:32→18:03)
[2016-11-26] MEDS: PANTOPRAZOLE (EC) 40 MG TAB PO SCH (05:32)
[2016-11-26] MEDS: Insulin NOVOLOG SS MILD Algorithm (SS with meals and bedtime) SC SCH ×4 (07:25→20:49)
[2016-11-26 07:43] LABS: ADD SCAN DIFF NO
[2016-11-26 07:54] LABS: BASOPHIL # 0.1 10^3/ul (0.0-0.1); BASOPHILS % 0.6 % (0.0-2.0); EOSINOPHILS # 0.4 10^3/ul (0.0-0.5); EOSINOPHILS % 3.4 % (0.0-7.0); HEMATOCRIT 31.7 % (37.0-47.0); HEMOGLOBIN 10.5 g/dl (12.0-16.0); LYMPHOCYTES # 2.7 10^3/ul (0.8-2.9); MEAN CORPUSCULAR HEMOGLOBIN 29.7 pg (29.0-33.0); MEAN CORPUSCULAR HGB CONC 33.1 g/dl (32.0-37.0); MEAN CORPUSCULAR VOLUME 89.8 fl (82.0-101.0); MEAN PLATELET VOLUME 10.7 fl (7.4-10.4); MONOCYTES % 9.7 % (0.0-11.0); NEUTROPHIL # 6.1 10^3/ul (1.6-7.5); NEUTROPHILS % 58.7 % (39.0-77.0); PLATELET COUNT 214 10^3/UL (140-415); RED BLOOD COUNT 3.53 10^6/ul (4.20-5.40); RED CELL DISTRIBUTION WIDTH 15.5 % (11.5-14.5); WHITE BLOOD COUNT 10.5 10^3/ul (4.8-10.8)
[2016-11-26] MEDS: DOXYCYCLINE 100 MG TAB PO SCH ×2 (09:07→20:58)
[2016-11-26] MEDS: ASPIRIN 81 MG TAB PO SCH (09:07)
[2016-11-26] MEDS: LOSARTAN 50 MG TAB PO SCH (09:07)
[2016-11-26] MEDS: METOPROLOL 25 MG TAB PO SCH ×2 (09:08→20:57)
[2016-11-26] MEDS: AMLODIPINE 5 MG TAB PO SCH ×2 (09:09→20:58)
[2016-11-26] MEDS: NPH, HUMAN INSULIN ISOPHANE 3ML VIAL SC SCH ×2 (09:19→21:06)
--- NOTE | 2016-11-26 13:25 | CONS ---
Date/Time of Note Date/Time of Note DATE: 11/26/16 TIME: 13:24 Consult Date/Type/Reason Admit Date/Time Nov 12, 2016 at 05:22 Initial Consult Date 11/12/16 Type of Consultation: Pulmonary Subjective Patient comfortable this morning no acute distress Objective Vital Signs Date Time Temp Pulse Resp B/P Pulse Ox O2 Delivery O2 Flow Rate FiO2 11/26/16 12:01 60 11/26/16 11:34 98.1 62 117/69 99 11/26/16 08:14 2.0 11/26/16 08:14 Nasal Cannula Intake and Output 11/25/16 11/25/16 11/26/16 15:00 23:00 07:00 Intake Total 600 ml Output Total 1400 ml Balance -800 ml Exam GENERAL: Elderly lady comfortable at rest no acute distress VITAL SIGNS: per chart NECK: Supple. No JVD or lymphadenopathy. CARDIAC EXAM: S1, S2. No added sounds or murmurs. CHEST: clear bilaterally, No added sounds, rales or wheezes ABDOMEN: Soft, nontender. No guarding or rebound. EXTREMITIES: No cyanosis, clubbing or edema. NEUROLOGIC: Generalized weakness. No focal deficits. Results/Medications Result Diagram: 11/26/16 0630 11/25/16 0554 Results 24 hrs Laboratory Tests Test 11/25/16 17:32 11/25/16 21:18 11/26/16 06:30 11/26/16 07:39 Bedside Glucose 169 184 91 White Blood Count 10.5 Red Blood Count 3.53 L Hemoglobin 10.5 L Hematocrit 31.7 L Mean Corpuscular Volume 89.8 Mean Corpuscular Hemoglobin 29.7 Mean Corpuscular Hemoglobin Concent 33.1 Red Cell Distribution Width 15.5 H Platelet Count 214 Mean Platelet Volume 10.7 H Neutrophils % 58.7 Lymphocytes % 26.0 Monocytes % 9.7 Eosinophils % 3.4 Basophils % 0.6 Nucleated Red Blood Cells % 0.0 Neutrophils # 6.1 Lymphocytes # 2.7 Monocytes # 1.0 H Eosinophils # 0.4 Basophils # 0.1 Nucleated Red Blood Cells # 0.0 Test 11/26/16 11:45 Bedside Glucose 108 Medications Current Medications Miscellaneous Information 1 ea NOTE XX ; Start 11/12/16 at 08:30 Glucose (Glutose) 15 gm Q15M PRN PO DECREASED GLUCOSE; Start 11/12/16 at 08:30 Glucose (Glutose) 22.5 gm Q15M PRN PO DECREASED GLUCOSE; Start 11/12/16 at 08: 30 Dextrose (D50w Syringe) 25 ml Q15M PRN IV DECREASED GLUCOSE; Start 11/12/16 at 08:30 Dextrose (D50w Syringe) 50 ml Q15M PRN IV DECREASED GLUCOSE; Start 11/12/16 at 08:30 Glucagon (Glucagen) 1 mg Q15M PRN IM DECREASED GLUCOSE; Start 11/12/16 at 08:30 Glucose (Glutose) 15 gm Q15M PRN BUCCAL DECREASED GLUCOSE; Start 11/12/16 at 08 :30 Collagenase (Santyl) 1 applic DAILY TOP Last administered on 11/25/16 08:54; Admin Dose 1 APPLIC; Start 11/16/16 at 09:00 Miscellaneous Information (Pending Santyl Order For Wound Care) This patient jean baptiste... PRN PRN XX WOUND CARE; Start 11/15/16 at 18:30 Hydralazine HCl (Apresoline) 10 mg Q4H PRN IV ELEVATED BLOOD PRESSURE Last administered on 11/25/16 17:25; Admin Dose 10 MG; Start 11/15/16 at 20:30 Acetaminophen (Tylenol Tab) 650 mg Q6H PRN PO PAIN AND OR ELEVATED TEMP Last administered on 11/21/16 09:49; Admin Dose 650 MG; Start 11/16/16 at 14:00 Methadone HCl (Methadone) 10 mg Q8 PRN PO pain Last administered on 11/25/16 15 :35; Admin Dose 10 MG; Start 11/16/16 at 14:00; Status Future hold Aspirin (Aspirin) 81 mg DAILY PO Last administered on 11/26/16 09:07; Admin Dose 81 MG; Start 11/18/16 at 09:00 Atorvastatin Calcium (Lipitor) 20 mg HS PO Last administered on 11/25/16 21:08 ; Admin Dose 20 MG; Start 11/17/16 at 21:00 Metoprolol Tartrate (Lopressor) 25 mg BID PO Last administered on 11/26/16 09: 08; Admin Dose 25 MG; Start 11/18/16 at 11:30 Pantoprazole (Protonix Tab) 40 mg DAILY@06 PO Last administered on 11/26/16 05: 32; Admin Dose 40 MG; Start 11/19/16 at 06:00 Diagnostic Test (Pha) (Accu-Chek) 1 ea 02 XX Last administered on 11/26/16 02: 46; Admin Dose 1 EA; Start 11/19/16 at 02:00 Enoxaparin Sodium (Lovenox) 60 mg Q24H SC Last administered on 11/25/16 21:22; Admin Dose 60 MG; Start 11/18/16 at 21:00 Insulin Human NPH (Humulin N) 20 unit DAILY@20 SC Last administered on 21:48; Admin Dose 20 UNIT; Start 11/19/16 at 20:00 Losartan Potassium (Cozaar) 100 mg DAILY PO Last administered on 11/26/16 09:07 ; Admin Dose 100 MG; Start 11/20/16 at 09:00 Insulin Human NPH (Humulin N) 25 unit DAILY@08 SC Last administered on 09:19; Admin Dose 25 UNIT; Start 11/20/16 at 08:00 Ciprofloxacin (Cipro) 500 mg BID@06,18 PO Last administered on 11/26/16 05:32; Admin Dose 500 MG; Start 11/23/16 at 18:00 Doxycycline Hyclate (Vibramycin) 100 mg BID PO Last administered on 11/26/16 09 :07; Admin Dose 100 MG; Start 11/23/16 at 09:00 Risperidone (Risperdal) 0.25 mg BID PRN PO anxiety Last administered on 20:58; Admin Dose 0.25 MG; Start 11/24/16 at 07:30 Diphenhydramine HCl (Benadryl) 25 mg HS PRN PO insomnia; Start 11/24/16 at 07:30 Amlodipine Besylate (Norvasc) 5 mg BID PO Last administered on 11/26/16 09:09; Admin Dose 5 MG; Start 11/25/16 at 21:00 Assessment/Plan Chief Complaint/Hosp Course IMP: s/p Sepsis s/p Respiratory failure status post extubation Peripheral atrial disease Encephalopathy Paroxysmal atrial fibrillation UE DVT RECS: 1. Continue anticoagulation 2. ICS 3. Aspiration precautions 4. PT/OT Consider transfer to [facility] planning okay from pulmonary standpoint Problems: SHARON RICHARD MD, [facility] Nov 26, 2016 13:25
--- NOTE | 2016-11-26 13:31 | CONS ---
Date/Time of Note Date/Time of Note DATE: 11/26/16 TIME: 13:30 Assessment/Plan Assessment/Plan Additional Assessment/Plan dditional Assessment/Plan Sepsis Respiratory failure status post extubation Peripheral atrial disease Encephalopathy Mildly elevated troponin Acute kidney injury Paroxysmal atrial fibrillation -Patient remains in sinus rhythm. Blood pressure trend improved with increased dose of Norvasc. No new cardiac orders at the current time Consultation Date/Type/Reason Admit Date/Time Nov 12, 2016 at 05:22 Initial Consult Date 11/12/16 Type of Consultation: cv 24 HR Interval Summary Free Text/Dictation Patient denies shortness of breath, cough or palpitations Exam/Review of Systems Vital Signs Vitals Vital Signs Date Time Temp Pulse Resp B/P Pulse Ox O2 Delivery O2 Flow Rate FiO2 11/26/16 12:01 60 11/26/16 11:34 98.1 62 117/69 99 11/26/16 08:14 2.0 11/26/16 08:14 Nasal Cannula Intake and Output 11/25/16 11/25/16 11/26/16 15:00 23:00 07:00 Intake Total 600 ml Output Total 1400 ml Balance -800 ml Exam No apparent distress, family at bedside Constitutional: alert, oriented Head: normocephalic Respiratory: other (Coarse breath sounds bilaterally, no wheezing) Cardiovascular: other (S1-S2 heard), regular rate and rhythm Gastrointestinal: bowel sounds, non-tender, soft Extremities: edema Results Result Diagram: 11/26/16 0630 11/25/16 0554 Results 24 hrs Laboratory Tests Test 11/25/16 17:32 11/25/16 21:18 11/26/16 06:30 11/26/16 07:39 Bedside Glucose 169 184 91 White Blood Count 10.5 Red Blood Count 3.53 L Hemoglobin 10.5 L Hematocrit 31.7 L Mean Corpuscular Volume 89.8 Mean Corpuscular Hemoglobin 29.7 Mean Corpuscular Hemoglobin Concent 33.1 Red Cell Distribution Width 15.5 H Platelet Count 214 Mean Platelet Volume 10.7 H Neutrophils % 58.7 Lymphocytes % 26.0 Monocytes % 9.7 Eosinophils % 3.4 Basophils % 0.6 Nucleated Red Blood Cells % 0.0 Neutrophils # 6.1 Lymphocytes # 2.7 Monocytes # 1.0 H Eosinophils # 0.4 Basophils # 0.1 Nucleated Red Blood Cells # 0.0 Test 11/26/16 11:45 Bedside Glucose 108 Medications Medications Current Medications Miscellaneous Information 1 ea NOTE XX ; Start 11/12/16 at 08:30 Glucose (Glutose) 15 gm Q15M PRN PO DECREASED GLUCOSE; Start 11/12/16 at 08:30 Glucose (Glutose) 22.5 gm Q15M PRN PO DECREASED GLUCOSE; Start 11/12/16 at 08: 30 Dextrose (D50w Syringe) 25 ml Q15M PRN IV DECREASED GLUCOSE; Start 11/12/16 at 08:30 Dextrose (D50w Syringe) 50 ml Q15M PRN IV DECREASED GLUCOSE; Start 11/12/16 at 08:30 Glucagon (Glucagen) 1 mg Q15M PRN IM DECREASED GLUCOSE; Start 11/12/16 at 08:30 Glucose (Glutose) 15 gm Q15M PRN BUCCAL DECREASED GLUCOSE; Start 11/12/16 at 08 :30 Collagenase (Santyl) 1 applic DAILY TOP Last administered on 11/25/16 08:54; Admin Dose 1 APPLIC; Start 11/16/16 at 09:00 Miscellaneous Information (Pending Santyl Order For Wound Care) This patient jean baptiste... PRN PRN XX WOUND CARE; Start 11/15/16 at 18:30 Hydralazine HCl (Apresoline) 10 mg Q4H PRN IV ELEVATED BLOOD PRESSURE Last administered on 11/25/16 17:25; Admin Dose 10 MG; Start 11/15/16 at 20:30 Acetaminophen (Tylenol Tab) 650 mg Q6H PRN PO PAIN AND OR ELEVATED TEMP Last administered on 11/21/16 09:49; Admin Dose 650 MG; Start 11/16/16 at 14:00 Methadone HCl (Methadone) 10 mg Q8 PRN PO pain Last administered on 11/25/16 15 :35; Admin Dose 10 MG; Start 11/16/16 at 14:00; Status Future hold Aspirin (Aspirin) 81 mg DAILY PO Last administered on 11/26/16 09:07; Admin Dose 81 MG; Start 11/18/16 at 09:00 Atorvastatin Calcium (Lipitor) 20 mg HS PO Last administered on 11/25/16 21:08 ; Admin Dose 20 MG; Start 11/17/16 at 21:00 Metoprolol Tartrate (Lopressor) 25 mg BID PO Last administered on 11/26/16 09: 08; Admin Dose 25 MG; Start 11/18/16 at 11:30 Pantoprazole (Protonix Tab) 40 mg DAILY@06 PO Last administered on 11/26/16 05: 32; Admin Dose 40 MG; Start 11/19/16 at 06:00 Diagnostic Test (Pha) (Accu-Chek) 1 ea 02 XX Last administered on 11/26/16 02: 46; Admin Dose 1 EA; Start 11/19/16 at 02:00 Enoxaparin Sodium (Lovenox) 60 mg Q24H SC Last administered on 11/25/16 21:22; Admin Dose 60 MG; Start 11/18/16 at 21:00 Insulin Human NPH (Humulin N) 20 unit DAILY@20 SC Last administered on 21:48; Admin Dose 20 UNIT; Start 11/19/16 at 20:00 Losartan Potassium (Cozaar) 100 mg DAILY PO Last administered on 11/26/16 09:07 ; Admin Dose 100 MG; Start 11/20/16 at 09:00 Insulin Human NPH (Humulin N) 25 unit DAILY@08 SC Last administered on 09:19; Admin Dose 25 UNIT; Start 11/20/16 at 08:00 Ciprofloxacin (Cipro) 500 mg BID@06,18 PO Last administered on 11/26/16 05:32; Admin Dose 500 MG; Start 11/23/16 at 18:00 Doxycycline Hyclate (Vibramycin) 100 mg BID PO Last administered on 11/26/16 09 :07; Admin Dose 100 MG; Start 11/23/16 at 09:00 Risperidone (Risperdal) 0.25 mg BID PRN PO anxiety Last administered on 20:58; Admin Dose 0.25 MG; Start 11/24/16 at 07:30 Diphenhydramine HCl (Benadryl) 25 mg HS PRN PO insomnia; Start 11/24/16 at 07:30 Amlodipine Besylate (Norvasc) 5 mg BID PO Last administered on 11/26/16 09:09; Admin Dose 5 MG; Start 11/25/16 at 21:00 Tucker Jacome DO Nov 26, 2016 13:31
--- NOTE | 2016-11-26 13:44 | DS ---
Date/Time of Note Date/Time of Note DATE: 11/26/16 TIME: 13:34 Discharge Summary Admission/Discharge Info Admit Date/Time Nov 12, 2016 at 05:22 Discharge Date/Time Discharge Diagnosis aspiration pneumonia osteomyelitis of foot left UE dvt with superficial thrombosis- chronic htn chronic pain acute renal failure afib elevated troponin Patient Condition: Good Hx of Present Illness pt admitted with lethargy and ct showing aspiration pneumonia and acute renal failure. went into respir failure- intubated, on vent. extubated within a few days and breathing was normalized. elevated troponin which unclear if due to sepsis vs arf vs cardiac. cards did eval and started on b-cassius. pt difficulty with lethargy and no po intake. pt then placed on ngt feeding and withing 2 days eating solids, awake and has a large appetite. UE's had signif swelling, mary of the left ue shows dvt of axillary and vascular believes it is a chronic condition. \ pt to be discharged to snf to improve the sacral decubi. osteomyelitis of the heel. id following and pt to cont the oral abx til ID says completed--doxy and cipro. Hospital Course 1) asp pneumonia continue with vanco/merrem to cover resistant organisms 11/13 - sputum cx ordered no change 11/16 - sputum cx never sent off continue with vanco/merrem for 8-10 day course 11/18 - wbc is improved, continue vanco/merrem thru 11/21 then change back to po cipro/doxy thru 12/11 11/20 - wbc is back to normal, if it remains normal will change to cipro/doxy tomorrow 11/23 - WBC is normal again d/c vanco/merrem and start cipro/doxy 2) pyuria and possible UTI await maturation of urine cx 11/13 - urine cx is pending 11/16 - urine cx was negative for bacteria, just yeast 3) L heal osteo s/p debridement about a week ago merrem will cover the kleb that was there before repeat wound cx 11/13 - wound cx is pending 11/13 - wound cx did not grow any aggressive bacteria 11/18 - will change back to cipro/doxy when done with iv antibiotics check esr, crp in a.m. 11/20 - both crp and esr were higher but this may be related to her pneumonia will re-check next week will change to cipro/doxy soon and continue these thru 12/11 11/23 - d/c vanco/merrem and start cipro/doxy continue cipro/doxy thru 12/11 check esr, crp in a.m. 11/25 - ESR and CRP are down continue with cipro/doxy thru 12/11 recommend weekly esr, CRP and if continuing to improve can extend antibiotic course another two weeks i will sign off on case 4) PVD no reversible stenosis found to LLE 5) GPR in blood cx (bacillus species) 11/13 - this likely is a contaminant repeat blood cx this a.m. 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 Home Meds Reported Medications Multivits-Min/Iron/FA/Lutein (Centrum Silver Women Tablet) 1 Each Tablet, 1 EACH PO, TAB 10/28/16 Insulin Isophan/Regular (Humulin 70/30) 100 Units/Ml Susp, 0 SC SLIDING SCALE, EA - 40u QAM & 60u QPM 10/28/16 Methadone Hcl* (Methadone*) 10 Mg Tab, 15 MG PO BID, TAB 07/14/16 Montelukast Sodium* (Montelukast Sodium*) 10 Mg Tablet, 10 MG PO QHS, #30 TAB 07/14/16 Losartan Potassium* (Losartan Potassium*) 100 Mg Tablet, 100 MG PO BID, TAB 07/14/16 Aspirin* (Aspirin* EC) 81 Mg Tablet., 81 MG PO DAILY, TAB 07/14/16 Primary Care Provider Ridge Matthews MD Pending Labs Laboratory Tests Test 11/25/16 17:32 11/25/16 21:18 11/26/16 06:30 11/26/16 07:39 Bedside Glucose 169mg/dL (70-220) 184mg/dL (70-220) 91mg/dL (70-220) White Blood Count 10.510^3/ul (4.8-10.8) Red Blood Count 3.5310^6/ul (4.20-5.40) Hemoglobin 10.5g/dl (12.0-16.0) Hematocrit 31.7% (37.0-47.0) Mean Corpuscular Volume 89.8fl (82.0-101.0) Mean Corpuscular Hemoglobin 29.7pg (29.0-33.0) Mean Corpuscular Hemoglobin Concent 33.1g/dl (32.0-37.0) Red Cell Distribution Width 15.5% (11.5-14.5) Platelet Count 78846^3/UL (140-415) Mean Platelet Volume 10.7fl (7.4-10.4) Neutrophils % 58.7% (39.0-77.0) Lymphocytes % 26.0% (15.0-51.0) Monocytes % 9.7% (0.0-11.0) Eosinophils % 3.4% (0.0-7.0) Basophils % 0.6% (0.0-2.0) Nucleated Red Blood Cells % 0.0/100WBC (0.0-0.0) Neutrophils # 6.110^3/ul (1.6-7.5) Lymphocytes # 2.710^3/ul (0.8-2.9) Monocytes # 1.010^3/ul (0.3-0.9) Eosinophils # 0.410^3/ul (0.0-0.5) Basophils # 0.110^3/ul (0.0-0.1) Nucleated Red Blood Cells # 0.010^3/ul (0.0-0.0) Test 11/26/16 11:45 Bedside Glucose 108mg/dL (70-220) RIDGE MATTHEWS MD Nov 26, 2016 13:44
[2016-11-26] MEDS: METHADONE 10 MG TAB PO PRN (15:59)
[2016-11-26] MEDS: COLLAGENASE 30 GM TUBE TOP SCH (16:17)
[2016-11-26] MEDS: ATORVASTATIN 20 MG TAB PO SCH (20:58)
[2016-11-26] MEDS: ENOXAPARIN 60 MG/0.6 ML SYG SC SCH (21:07)
[2016-11-27 00:09] VITALS: BP 129/60; RESP 20
[2016-11-27] MEDS: IPRATROPIUM (NEB) 0.5 MG/2.5 ML AMP HHN SCH ×3 (01:30→14:51)
[2016-11-27] MEDS: ACCUCHECK AT 2AM (Patients on SS coverage) XX SCH (01:30)
[2016-11-27] MEDS: LEVALBUTEROL (NEB) 0.63 MG/3 ML AMP HHN SCH ×3 (01:30→14:51)
[2016-11-27 04:16] VITALS: BP 151/65; RESP 17
[2016-11-27] MEDS: CIPROFLOXACIN 500 MG TAB PO SCH (05:27)
[2016-11-27] MEDS: PANTOPRAZOLE (EC) 40 MG TAB PO SCH (05:27)
[2016-11-27] MEDS: Insulin NOVOLOG SS MILD Algorithm (SS with meals and bedtime) SC SCH ×2 (07:25→12:24)
[2016-11-27 07:31] VITALS: BP 153/70; RESP 19
[2016-11-27] MEDS: DOXYCYCLINE 100 MG TAB PO SCH (09:03)
[2016-11-27] MEDS: AMLODIPINE 5 MG TAB PO SCH (09:04)
[2016-11-27] MEDS: ASPIRIN 81 MG TAB PO SCH (09:04)
[2016-11-27] MEDS: LOSARTAN 50 MG TAB PO SCH (09:04)
[2016-11-27] MEDS: METOPROLOL 25 MG TAB PO SCH (09:04)
[2016-11-27] MEDS: COLLAGENASE 30 GM TUBE TOP SCH (09:05)
[2016-11-27] MEDS: NPH, HUMAN INSULIN ISOPHANE 3ML VIAL SC SCH (09:07)
[2016-11-27] MEDS: METHADONE 10 MG TAB PO PRN (10:13)
[2016-11-27 11:11] VITALS: BP 139/60; RESP 18
--- NOTE | 2016-11-27 12:05 | CONS ---
Date/Time of Note Date/Time of Note DATE: 11/27/16 TIME: 12:04 Assessment/Plan Assessment/Plan Additional Assessment/Plan Sepsis Respiratory failure status post extubation Peripheral atrial disease Encephalopathy Mildly elevated troponin Acute kidney injury Paroxysmal atrial fibrillation -Blood pressure trend overall improved. No new cardiac orders at the current time. Consultation Date/Type/Reason Admit Date/Time Nov 12, 2016 at 05:22 Initial Consult Date 11/12/16 Type of Consultation: cv 24 HR Interval Summary Free Text/Dictation Patient seen and examined, family at bedside Exam/Review of Systems Vital Signs Vitals Vital Signs Date Time Temp Pulse Resp B/P Pulse Ox O2 Delivery O2 Flow Rate FiO2 11/27/16 11:11 98.2 60 18 139/60 96 11/27/16 07:45 Nasal Cannula 2.0 Intake and Output 11/26/16 11/26/16 11/27/16 15:00 23:00 07:00 Intake Total 450 ml 240 ml Output Total 900 ml 2000 ml Balance -450 ml -1760 ml Exam Sleeping but arousable, no apparent distress, following commands Head: normocephalic Respiratory: other (Coarse breath sounds bilaterally, no wheezing) Cardiovascular: other (S1-S2 heard), regular rate and rhythm Gastrointestinal: bowel sounds, non-tender, soft Extremities: edema (Trace) Results Result Diagram: 11/26/16 0630 11/25/16 0554 Results 24 hrs Laboratory Tests Test 11/26/16 17:20 11/26/16 20:48 11/27/16 01:28 11/27/16 07:56 Bedside Glucose 170 155 132 102 Medications Medications Current Medications Miscellaneous Information 1 ea NOTE XX ; Start 11/12/16 at 08:30 Glucose (Glutose) 15 gm Q15M PRN PO DECREASED GLUCOSE; Start 11/12/16 at 08:30 Glucose (Glutose) 22.5 gm Q15M PRN PO DECREASED GLUCOSE; Start 11/12/16 at 08: 30 Dextrose (D50w Syringe) 25 ml Q15M PRN IV DECREASED GLUCOSE; Start 11/12/16 at 08:30 Dextrose (D50w Syringe) 50 ml Q15M PRN IV DECREASED GLUCOSE; Start 11/12/16 at 08:30 Glucagon (Glucagen) 1 mg Q15M PRN IM DECREASED GLUCOSE; Start 11/12/16 at 08:30 Glucose (Glutose) 15 gm Q15M PRN BUCCAL DECREASED GLUCOSE; Start 11/12/16 at 08 :30 Collagenase (Santyl) 1 applic DAILY TOP Last administered on 11/27/16 09:05; Admin Dose 1 APPLIC; Start 11/16/16 at 09:00 Miscellaneous Information (Pending Santyl Order For Wound Care) This patient jean baptiste... PRN PRN XX WOUND CARE; Start 11/15/16 at 18:30 Hydralazine HCl (Apresoline) 10 mg Q4H PRN IV ELEVATED BLOOD PRESSURE Last administered on 11/25/16 17:25; Admin Dose 10 MG; Start 11/15/16 at 20:30 Acetaminophen (Tylenol Tab) 650 mg Q6H PRN PO PAIN AND OR ELEVATED TEMP Last administered on 11/21/16 09:49; Admin Dose 650 MG; Start 11/16/16 at 14:00 Methadone HCl (Methadone) 10 mg Q8 PRN PO pain Last administered on 11/27/16 10 :13; Admin Dose 10 MG; Start 11/16/16 at 14:00; Status Future hold Aspirin (Aspirin) 81 mg DAILY PO Last administered on 11/27/16 09:04; Admin Dose 81 MG; Start 11/18/16 at 09:00 Atorvastatin Calcium (Lipitor) 20 mg HS PO Last administered on 11/26/16 20:58 ; Admin Dose 20 MG; Start 11/17/16 at 21:00 Metoprolol Tartrate (Lopressor) 25 mg BID PO Last administered on 11/27/16 09: 04; Admin Dose 25 MG; Start 11/18/16 at 11:30 Pantoprazole (Protonix Tab) 40 mg DAILY@06 PO Last administered on 11/27/16 05: 27; Admin Dose 40 MG; Start 11/19/16 at 06:00 Diagnostic Test (Pha) (Accu-Chek) 1 ea 02 XX Last administered on 11/26/16 02: 46; Admin Dose 1 EA; Start 11/19/16 at 02:00 Enoxaparin Sodium (Lovenox) 60 mg Q24H SC Last administered on 11/26/16 21:07; Admin Dose 60 MG; Start 11/18/16 at 21:00 Insulin Human NPH (Humulin N) 20 unit DAILY@20 SC Last administered on 21:06; Admin Dose 20 UNIT; Start 11/19/16 at 20:00 Losartan Potassium (Cozaar) 100 mg DAILY PO Last administered on 11/27/16 09:04 ; Admin Dose 100 MG; Start 11/20/16 at 09:00 Insulin Human NPH (Humulin N) 25 unit DAILY@08 SC Last administered on 09:07; Admin Dose 25 UNIT; Start 11/20/16 at 08:00 Ciprofloxacin (Cipro) 500 mg BID@06,18 PO Last administered on 11/27/16 05:27; Admin Dose 500 MG; Start 11/23/16 at 18:00 Doxycycline Hyclate (Vibramycin) 100 mg BID PO Last administered on 11/27/16 09 :03; Admin Dose 100 MG; Start 11/23/16 at 09:00 Risperidone (Risperdal) 0.25 mg BID PRN PO anxiety Last administered on 20:58; Admin Dose 0.25 MG; Start 11/24/16 at 07:30 Diphenhydramine HCl (Benadryl) 25 mg HS PRN PO insomnia; Start 11/24/16 at 07:30 Amlodipine Besylate (Norvasc) 5 mg BID PO Last administered on 11/27/16 09:04; Admin Dose 5 MG; Start 11/25/16 at 21:00 Tucker Jacome DO Nov 27, 2016 12:05
[2016-11-27 15:20] VITALS: BP 116/56; RESP 19
== END 2016-11-27 16:51 | DRG 871 ==
LOC: E/R 22:53 → ICU 11-12 05:22 → TEL 11-15 17:02
PROVIDERS: ADMIT Internal Medicine; ATTEND Internal Medicine
PROC: 5A1945Z Respiratory Ventilation, 24-96 Consecutive Hours (ICD-10-PCS; principal; 2016-11-11)
PROC: 0BH17EZ Insertion of Endotracheal Airway into Trachea, Via Natural or Artificial Opening (ICD-10-PCS; 2016-11-11)
PROC: 05HM33Z Insertion of Infusion Device into Right Internal Jugular Vein, Percutaneous Approach (ICD-10-PCS; 2016-11-11)
PROC: B543ZZA Ultrasonography of Right Jugular Veins, Guidance (ICD-10-PCS; 2016-11-11)
DX: A41.9 Sepsis, unspecified organism (principal); J69.0 Pneumonitis due to inhalation of food and vomit; J96.01 Acute respiratory failure with hypoxia; R65.21 Severe sepsis with septic shock; G93.41 Metabolic encephalopathy; N17.9 Acute kidney failure, unspecified; E87.0 Hyperosmolality and hypernatremia; I70.263 Atherosclerosis of native arteries of extremities with gangrene, bilateral legs; L89.150 Pressure ulcer of sacral region, unstageable; E11.51 Type 2 diabetes mellitus with diabetic peripheral angiopathy without gangrene; D68.9 Coagulation defect, unspecified; I82.712 Chronic embolism and thrombosis of superficial veins of left upper extremity; I82.722 Chronic embolism and thrombosis of deep veins of left upper extremity; M86.9 Osteomyelitis, unspecified; N39.0 Urinary tract infection, site not specified; E11.69 Type 2 diabetes mellitus with other specified complication; E86.0 Dehydration; E86.9 Volume depletion, unspecified; F32.9 Major depressive disorder, single episode, unspecified; I25.10 Atherosclerotic heart disease of native coronary artery without angina pectoris; I10 Essential (primary) hypertension; I25.2 Old myocardial infarction; I48.0 Paroxysmal atrial fibrillation; I80.8 Phlebitis and thrombophlebitis of other sites; L89.620 Pressure ulcer of left heel, unstageable; Z89.511 Acquired absence of right leg below knee; Z89.412 Acquired absence of left great toe; Z79.4 Long term (current) use of insulin; Z79.82 Long term (current) use of aspirin
CPT/HCPCS: 31500; 36415; 36600; 70450; 71010; 74176; 76937; 80048; 80053; 80061; 80202; 81001; 81003; 82803; 82962; 83605; 83735; 83880; 84484; 85025; 85610; 85651; 85730; 86140; 87040; 87070; 87086; 92526; 92610; 93005; 93306; 93971; 94002; 94003; 94640; 94664; 94770; 96374; 96375; J1940; C9113; J0360; J1170; J1650; J1815; J1885; J2185; J3370; J3480; J7030; J7042; J7050; J7060; J7070

== ENCOUNTER 2017-01-15 12:31 | Inpatient (IN) | payer MEDICARE, OTHER ==
[~2017-01-15] VITALS: Ht 154.9 cm; Wt 66.0 kg
[2017-01-15] MEDS ORDERED: VANCOMYCIN 1 GM (PMX) 250 ML IVPB STA (12:58)
[2017-01-15] MEDS ORDERED: SODIUM CHLORIDE 0.9% 1L BAG IV* STA (12:58)
[2017-01-15] MEDS ORDERED: CEFEPIME 2GM/50 ML (PMX) 50 ML IVPB ONE (13:00)
--- NOTE | 2017-01-15 13:08 | ERA ---
ER Documentation Chief Complaint Date/Time DATE: 01/15/17 TIME: 13:05 Chief Complaint HPI Patient is an 81-year-old female who presents with gradual onset, constant, progressive sacral decubitus ulcer since her last admission 5 weeks ago. She reports feeling generalized weakness. There is no report of fever. On wound inspection, was found that the wound appeared to be worsening, so the patient was sent from her [facility] facility to the ER. Patient denies chest pain , shortness of breath, fever, vomiting. The patient has been more lethargic and confused recently. There is no focal weakness or numbness reported. Additional history provided by the patient's son. ROS All systems reviewed and are negative except as per history of present illness. Medications Home Meds Reported Medications Multivits-Min/Iron/FA/Lutein (Centrum Silver Women Tablet) 1 Each Tablet, 1 EACH PO, TAB 10/28/16 Insulin Isophan/Regular (Humulin 70/30) 100 Units/Ml Susp, 0 SC SLIDING SCALE, EA - 40u QAM & 60u QPM 10/28/16 Methadone Hcl* (Methadone*) 10 Mg Tab, 15 MG PO BID, TAB 07/14/16 Montelukast Sodium* (Montelukast Sodium*) 10 Mg Tablet, 10 MG PO QHS, #30 TAB 07/14/16 Losartan Potassium* (Losartan Potassium*) 100 Mg Tablet, 100 MG PO BID, TAB 07/14/16 Aspirin* (Aspirin* EC) 81 Mg Tablet.dr, 81 MG PO DAILY, TAB 07/14/16 Allergies Allergies: Coded Allergies: Benzodiazepines (Verified Allergy, Severe, hallucinations, 01/15/17) Penicillins (Verified Allergy, Mild, RASH, 01/15/17) PMhx/Soc Past medical history: Diabetes mellitus, sacral decubitus ulcer, coronary artery disease, atrial fibrillation, DVT Past surgical history: 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 Social history: Lives in [facility] facility, no alcohol or tobacco History of Surgery: Yes Anesthesia Reaction: No Hx Neurological Disorder: Yes Hx Respiratory Disorders: No Hx Cardiac Disorders: Yes Hx Psychiatric Problems: No Hx Miscellaneous Medical Probl: No Hx Alcohol Use: No Hx Substance Use: No Hx Tobacco Use: No FmHx Noncontributory Physical Exam Vitals Vital Signs Date Time Temp Pulse Resp B/P Pulse Ox O2 Delivery O2 Flow Rate FiO2 8/25/17 15:07 99.6 68 15 123/54 100 Nasal Cannula 2.0 01/15/17 13:03 99.0 85 21 145/63 100 01/15/17 13:00 Nasal Cannula 2 Physical Exam Const: Lethargic, no acute distress, opens eyes to voice Head: Atraumatic Eyes: Normal Conjunctiva, no pallor, no icterus, bilateral corneal scarring ENT: Normal External Ears, Nose and Mouth. Dry mucous membranes Neck: Full range of motion..~ No meningismus. No JVD Resp: Clear to auscultation bilaterally, no wheezes, no rales Cardio: Regular rate and rhythm, no murmurs Abd: Soft, non tender, non distended. Skin: No petechiae or rashes Back: No midline or flank tenderness, macerated tissue on the buttocks and around the vulva, stage IV decubitus ulcer over the sacrum with foul-smelling discharge Ext: No cyanosis, or edema. Low the knee amputation right leg, left heel with dry gangrene. Neur: Awake and alert, lethargic, motor function grossly intact in 4 extremities Psych: Normal Mood and Affect Result Diagram: 01/15/17 1320 01/15/17 1330 Results 24 hrs Laboratory Tests Test 01/15/17 13:20 01/15/17 13:30 White Blood Count 19.010^3/ul Red Blood Count 3.0610^6/ul Hemoglobin 8.4g/dl Hematocrit 26.9% Mean Corpuscular Volume 87.9fl Mean Corpuscular Hemoglobin 27.5pg Mean Corpuscular Hemoglobin Concent 31.2g/dl Red Cell Distribution Width 14.8% Platelet Count 87997^3/UL Mean Platelet Volume 9.7fl Neutrophils % 74.3% Lymphocytes % 12.9% Monocytes % 8.3% Eosinophils % 2.7% Basophils % 0.5% Nucleated Red Blood Cells % 0.0/100WBC Neutrophils # (Manual) 14.110^3/ul Lymphocytes # 2.410^3/ul Monocytes # 1.610^3/ul Eosinophils # 0.510^3/ul Basophils # 0.110^3/ul Nucleated Red Blood Cells # 0.010^3/ul Prothrombin Time 16.4Sec Prothrombin Time Ratio 1.3 INR International Normalized Ratio 1.31 Activated Partial Thromboplast Time 45.1Sec Lactic Acid Level 1.5mmol/L Urine Color YELLOW Urine Clarity CLOUDY Urine pH 6.0 Urine Specific [place] 1.014 Urine Ketones NEGATIVEmg/dL Urine Nitrite NEGATIVEmg/dL Urine Bilirubin NEGATIVEmg/dL Urine Urobilinogen NEGATIVEmg/dL Urine Leukocyte Esterase 3+Justin/ul Urine Microscopic RBC 5/HPF Urine Microscopic WBC 87/HPF Urine Bacteria MODERATE/HPF Urine Mucus FEW/HPF Urine Yeast (Budding) MANY/HPF Urine Hemoglobin NEGATIVEmg/dL Urine Glucose NEGATIVEmg/dL Urine Total Protein 1+mg/dl Sodium Level 142mmol/L Potassium Level 4.0mmol/L Chloride Level 102mmol/L Carbon Dioxide Level 27mmol/L Anion Gap 17 Blood Urea Nitrogen 17mg/dl Creatinine 0.73mg/dl Glucose Level 234mg/dl Calcium Level 8.6mg/dl Total Bilirubin 0.1mg/dl Direct Bilirubin 0.00mg/dl Indirect Bilirubin 0.1mg/dl Aspartate Amino Transf (AST/SGOT) 136IU/L Alanine Aminotransferase (ALT/SGPT) 89IU/L Alkaline Phosphatase 114IU/L Troponin I < 0.012ng/ml Total Protein 6.7g/dl Albumin 2.6g/dl Globulin 4.10g/dl Albumin/Globulin Ratio 0.63 Current Medications Medications (Trade) Dose Ordered Sig/Grecia Route PRN Reason Start Time Stop Time Status Last Admin Dose Admin Sodium Chloride 2170 ml 2,170 ml BOLUS OVER 2 HOURS STAT IV* 01/15/17 12:58 01/15/17 13:05 DC 01/15/17 14:03 Vancomycin HCl 250 ml @ 125 mls/hr ONCE STAT IVPB 01/15/17 12:58 01/15/17 14:57 DC 01/15/17 14:38 Cefepime HCl (Maxipime 2gm/50 ml (Pmx)) 50 ml @ 100 mls/hr ONCE ONCE IVPB 01/15/17 13:00 01/15/17 13:29 DC 01/15/17 14:03 Ondansetron HCl (Zofran Inj) 4 mg BRIDGE ORDER PRN IV NAUSEA AND/OR VOMITING 01/15/17 15:00 01/16/17 14:59 Acetaminophen (Tylenol Tab) 650 mg ER BRIDGE PRN PO MILD PAIN/FEVER 01/15/17 15:00 8/26/17 14:59 Hydromorphone HCl (Dilaudid) 1 mg ONCE STAT IV 01/15/17 14:31 01/15/17 14:39 DC 01/15/17 14:53 Lidocaine 5 ml 5 ml ONCE ONCE SC 01/15/17 16:00 01/15/17 16:01 DC Sodium Chloride (1/2 NS) 1,000 ml @ 70 mls/hr [id number] IV 01/15/17 16:09 IV Flush (NS 3 ml) 3 ml PER PROTOCOL IV 01/15/17 16:30 Ondansetron HCl (Zofran Inj) 4 mg Q6H PRN IV NAUSEA AND/OR VOMITING 01/15/17 16:30 Acetaminophen (Tylenol Tab) 650 mg Q6H PRN PO PAIN LEVEL 1-3 OR FEVER 01/15/17 16:30 Acetaminophen/ Hydrocodone Bitart ([place] (5/325)) 1 tab Q6H PRN PO MODERATE PAIN LEVEL 4-6 01/15/17 16:30 Docusate Sodium (Colace) 100 mg Q12H PRN PO CONSTIPATION 01/15/17 16:30 Magnesium Hydroxide (Milk Of Mag) 30 ml DAILY PRN PO CONSTIPATION 01/15/17 16:30 Zolpidem Tartrate (Ambien) 5 mg QHS PRN PO SLEEP 01/15/17 16:30 Enoxaparin Sodium (Lovenox) 40 mg DAILY SC 01/15/17 16:30 01/15/17 17:08 DC Aspirin (Halfprin) 81 mg DAILY PO 01/16/17 09:00 UNV Losartan Potassium (Cozaar) 100 mg BID PO 01/15/17 21:00 UNV Montelukast Sodium 10 mg 10 mg QHS PO 01/15/17 21:00 UNV Meropenem/Sodium Chloride (Merrem/NS) 100 ml @ 200 mls/hr Q12 IVPB 01/15/17 21:00 UNV Miscellaneous Information (* Miscellaneous Pharmacy Order) Discontinue current oral sulfonylur... ONCE ONCE XX 01/15/17 17:00 01/15/17 17:14 DC Diagnostic Test (Pha) (Accu-Chek) 1 ea 02 XX 01/16/17 02:00 UNV Insulin Aspart (Novolog Insulin Pen) 5 unit WITH MEALS SC 01/15/17 18:00 UNV Miscellaneous Information (* Miscellaneous Pharmacy Order) HYPOGLYCEMIA PROTOCOL w... ONCE ONCE XX 01/15/17 17:00 01/15/17 17:14 DC Miscellaneous Information (* Miscellaneous Pharmacy Order) Discontinue all previ... ONCE ONCE XX 01/15/17 17:00 01/15/17 17:14 DC Enoxaparin Sodium (Lovenox) 60 mg DAILY SC 01/16/17 09:00 Insulin Human NPH (Humulin N) 15 unit HS SC 01/15/17 21:00 UNV Procedures/MDM EKG read by me: Time 1338, rate 68 Rhythm: Normal sinus Shirley: Normal Intervals: Normal ST-T waves: no ischemic changes Ectopy: No Q-waves: Anterior Q waves Impression: No evidence of ischemia or arrhythmia, baseline artifact slightly limits interpretation MDM: Patient is an 81-year-old female with stage IV sacral decubitus ulcer and urinary tract infection who is sent to the ER by intermediate due to worsening appearance of her sacral ulcer. She did not have fever or vital sign abnormalities. She did have increased lethargy and malaise. Clinically, she appeared dehydrated. She was found to have significant leukocytosis. She was given IV fluids and broad-spectrum antibiotics. Blood and urine cultures were sent. Examination of the wound was highly suspicious for osteomyelitis. I spoke with the patient's primary physician who is not aware that the patient had been sent to the ER, and who advised me that patient has known osteomyelitis. Given that she has not been responding well to her current treatment, I believe that she would benefit from admission for ID consultation and surgical consultation for possible debridement. Her lactic acid was not elevated and they are not laboratory findings suggestive of dehydration. Departure Diagnosis: Primary Impression: Sacral osteomyelitis Additional Impression: Urinary tract infection Qualified Code: T83.511A - Urinary tract infection associated with indwelling urethral catheter, initial encounter Condition: DARIN Guillen MD Jan 15, 2017 13:05
[2017-01-15 13:43] LABS: ABNORMAL IP MESSAGE 1; BASOPHIL # 0.1 10^3/ul (0.0-0.1); BASOPHILS % 0.5 % (0.0-2.0); EOSINOPHILS # 0.5 10^3/ul (0.0-0.5); EOSINOPHILS % 2.7 % (0.0-7.0); HEMATOCRIT 26.9 % (37.0-47.0); HEMOGLOBIN 8.4 g/dl (12.0-16.0); LYMPHOCYTES # 2.4 10^3/ul (0.8-2.9); LYMPHOCYTES % 12.9 % (15.0-51.0); MEAN CORPUSCULAR HEMOGLOBIN 27.5 pg (29.0-33.0); MEAN CORPUSCULAR HGB CONC 31.2 g/dl (32.0-37.0); MEAN CORPUSCULAR VOLUME 87.9 fl (82.0-101.0); MEAN PLATELET VOLUME 9.7 fl (7.4-10.4); MONOCYTE # 1.6 10^3/ul (0.3-0.9); MONOCYTES % 8.3 % (0.0-11.0); NEUTROPHILS % 74.3 % (39.0-77.0); PLATELET COUNT 375 10^3/UL (140-415); RED BLOOD COUNT 3.06 10^6/ul (4.20-5.40); RED CELL DISTRIBUTION WIDTH 14.8 % (11.5-14.5)
[2017-01-15 13:59] LABS: INR 1.31; PROTIME 16.4 Sec (12.2-14.2); PT RATIO 1.3
[2017-01-15 14:00] LABS: PARTIAL THROMBOPLASTIN TIME 45.1 Sec (25.0-35.0)
--- NOTE | 2017-01-15 14:00 | RADRPT ---
PROCEDURE: XR Chest 1 View. CLINICAL INDICATION: Shortness of breath. TECHNIQUE: AP view of the chest was obtained. COMPARISON: November 20, 2016 FINDINGS: The heart size is within normal limits. Calcified atherosclerosis is noted in the aorta. No consol idations are identified. No pneumothorax is seen. Degenerative changes are seen in the shoulders. The osseous structures appear grossly intact. IMPRESSION: Calcified atherosclerosis in the aorta. Clear lungs. RPTAT: AA .Norberto Castro MD, Date Time Electronically viewed and signed by .Norberto Castro MD, on 01/15/2017 14:00 .P/
[2017-01-15 14:01] LABS: ALANINE AMINOTRANSFERASE 89 IU/L (13-69); ALBUMIN 2.6 g/dl (3.3-4.9); ALBUMIN/GLOBULIN RATIO 0.63; ALKALINE PHOSPHATASE 114 IU/L (42-121); ANION GAP 17 (8-16); ASPARTATE AMINO TRANSFERASE 136 IU/L (15-46); BILIRUBIN,INDIRECT 0.1 mg/dl (0-1.1); BILIRUBIN,TOTAL 0.1 mg/dl (0.2-1.3); BLOOD UREA NITROGEN 17 mg/dl (7-20); CALCIUM 8.6 mg/dl (8.4-10.2); CARBON DIOXIDE 27 mmol/L (21-31); CHLORIDE 102 mmol/L (97-110); CREATININE 0.73 mg/dl (0.44-1.00); GLUCOSE 234 mg/dl (70-220); SODIUM 142 mmol/L (135-144); TOTAL PROTEIN 6.7 g/dl (6.1-8.1)
[2017-01-15 14:03] LABS: ADD UMIC YES; UR ASCORBIC ACID 20 mg/dL (NEGATIVE); UR BACTERIA MODERATE /HPF (NONE SEEN); UR BILIRUBIN (Dip) NEGATIVE (NEGATIVE); UR BLOOD (Dip) NEGATIVE (NEGATIVE); UR BUDDING YEAST MANY /HPF (NONE SEEN); UR CLARITY CLOUDY (CLEAR); UR COLOR YELLOW (YELLOW); UR GLUCOSE (Dip) NEGATIVE (NEGATIVE); UR KETONES (Dip) NEGATIVE (NEGATIVE); UR LEUKOCYTE ESTERASE (Dip) 3+ Leu/ul (NEGATIVE); UR MUCUS FEW /HPF (NONE SEEN); UR NITRITE (Dip) NEGATIVE (NEGATIVE); UR RBC 5 /HPF (0-5); UR SPECIFIC GRAVITY (Dip) 1.014 (1.003-1.030); UR TOTAL PROTEIN (Dip) 1+ mg/dl (NEGATIVE); UR UROBILINOGEN (Dip) NEGATIVE (NEGATIVE)
[2017-01-15 14:13] LABS: TROPONIN-I < 0.012 ng/ml (0.00-0.12)
[2017-01-15] MEDS ORDERED: HYDROmorphONE 1 MG/ML SYG IV STA (14:31)
[2017-01-15] MEDS ORDERED: ONDANSETRON 4 MG INJ IV PRN ×2 (15:00→16:30)
[2017-01-15] MEDS ORDERED: ACETAMINOPHEN 325 MG TAB PO PRN (15:00)
[2017-01-15 15:07] VITALS: TEMP 99.6
[2017-01-15] MEDS ORDERED: LIDOCAINE 1% (MPF) 5 ML VIAL SC ONE (16:00)
[2017-01-15] MEDS ORDERED: ZOLPIDEM 5 MG TAB PO PRN (16:30)
[2017-01-15] MEDS ORDERED: NACL 0.9% 3 ML SYG IV SCH (16:30)
[2017-01-15] MEDS ORDERED: MAGNESIUM HYDROXIDE 30ML CUP PO PRN (16:30)
[2017-01-15] MEDS ORDERED: HYDROCODONE/APAP (5/325) TAB PO PRN (16:30)
[2017-01-15] MEDS ORDERED: DOCUSATE SODIUM 100 MG CAP PO PRN (16:30)
[2017-01-15] MEDS ORDERED: ENOXAPARIN 40 MG/0.4 ML SYG SC SCH (16:30)
--- NOTE | 2017-01-15 17:21 | HP ---
Date/Time of Note Date/Time of Note DATE: 01/15/17 TIME: 17:15 Assessment/Plan VTE Prophylaxis VTE Prophylaxis Intervention: other Lines/Catheters Central line still needed: Yes Reason Cath still needed: skin wounds contaminated by urine Assessment/Plan Assessment/Plan sacral decubi- discussed with id- restart merrem and vanco. consult ID for the morning. 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 will recheck a1c. pts insurance not cover lantus. is on nph 20 in past. will cont but at lower dose til find the accu checks left UE dvt with superficial thrombosis- pt was on lovenox for both afib and dvt. will cont htn paroxysmal afib. stable. will place on lovenox. HPI/ROS Admit Date/Time Admit Date/Time 01/15/17 Hx of Present Illness 81 y/o recent in hospital for aspir pneumonia. dx with osteo of the left stump and scral decubi. pt was treated for osteo of the stump with merrem and vanco- changed to oralcipro and doxy til 12/11. now entering er for feeling sick and worsening of the sacral decubi PMH/Family/Social Social History Smoking Status: Never smoker Exam/Review of Systems Vital Signs Vitals Vital Signs Date Time Temp Pulse Resp B/P Pulse Ox O2 Delivery O2 Flow Rate FiO2 01/15/17 15:07 99.6 68 15 123/54 100 Nasal Cannula 2.0 Labs Result Diagram: 01/15/17 1320 01/15/17 1330 Medications Medications Current Medications Sodium Chloride (1/2 NS) 1,000 ml @ 70 mls/hr [id number] IV ; Start 01/15/17 at 16 :09 Ondansetron HCl (Zofran Inj) 4 mg Q6H PRN IV NAUSEA AND/OR VOMITING; Start at 16:30 Acetaminophen (Tylenol Tab) 650 mg Q6H PRN PO PAIN LEVEL 1-3 OR FEVER; Start at 16:30 Acetaminophen/ Hydrocodone Bitart ([place] (5/325)) 1 tab Q6H PRN PO MODERATE PAIN LEVEL 4-6; Start 01/15/17 at 16:30 Docusate Sodium (Colace) 100 mg Q12H PRN PO CONSTIPATION; Start 01/15/17 at 16: 30 Magnesium Hydroxide (Milk Of Mag) 30 ml DAILY PRN PO CONSTIPATION; Start at 16:30 Zolpidem Tartrate (Ambien) 5 mg QHS PRN PO SLEEP; Start 01/15/17 at 16:30 Aspirin (Halfprin) 81 mg DAILY PO ; Start 01/16/17 at 09:00; Status UNV Losartan Potassium (Cozaar) 100 mg BID PO ; Start 01/15/17 at 21:00; Status UNV Montelukast Sodium 10 mg 10 mg QHS PO ; Start 01/15/17 at 21:00; Status UNV Meropenem/Sodium Chloride (Merrem/NS) 100 ml @ 200 mls/hr Q12 IVPB ; Start at 21:00; Status UNV Miscellaneous Information (* Miscellaneous Pharmacy Order) Discontinue current oral sulfonylur... ONCE ONCE XX ; Start 01/15/17 at 17:00; Stop 01/15/17 at 17: 01; Status UNV Diagnostic Test (Pha) (Accu-Chek) XX ; Start 01/16/17 at 02:00; Status UNV Miscellaneous Information (* Miscellaneous Pharmacy Order) HYPOGLYCEMIA PROTOCOL w... ONCE ONCE XX ; Start 01/15/17 at 17:00; Stop 01/15/17 at 17:01; Status UNV Miscellaneous Information (* Miscellaneous Pharmacy Order) Discontinue all previ... ONCE ONCE XX ; Start 01/15/17 at 17:00; Stop 01/15/17 at 17:01; Status UNV Enoxaparin Sodium (Lovenox) 60 mg DAILY SC ; Start 01/16/17 at 09:00; Status UNV RIDGE MATTHEWS MD Jan 15, 2017 17:21
--- NOTE | 2017-01-15 17:22 | RADRPT ---
PROCEDURE: Ultrasound guidance for placement of needle in left upper extremity vein. CLINICAL INDICATION: Venous access. TECHNIQUE: Limited sonography of the left upper extremity was performed. Ultrasound images were recorded and s tored in the patient's medical record. COMPARISON: None. FINDINGS: The ultrasound images demonstrate a patent left upper extremity vein. The PICC line was inserted by the PICC line nurse. IMPRESSION: 1. Ultrasound guidance for a needle placement in a left upper extremity vein. 2. The left upper extremity vein is patent. RPTAT: QQ .Tod Elias MD, MD Date Time Electronically viewed and signed by .Tod Elias MD, MD on 01/15/2017 17:22 .R/
--- NOTE | 2017-01-15 17:23 | RADRPT ---
PROCEDURE: XR Chest. CLINICAL INDICATION: Check PICC line position. TECHNIQUE: Single frontal view. COMPARISON: Prior study done earlier the same day. FINDINGS: There is a left arm PICC line with the tip in the cavoatrial junction region. The lungs are clear. The heart size is normal. There is calcification in the aorta consistent with atherosclerosis. There is no pleural effusion or pneumothorax. There are degenerative changes of the right glenohumeral joint. IMPRESSION: 1. Left arm PICC line tip in satisfactory position. 2. Atherosclerosis. 2. Degenerative changes of the right glenohumeral joint. RPTAT: QQ .Tod Elias MD, MD Date Time Electronically viewed and signed by .Tod Elias MD, on 01/15/2017 17:23 .R/
[2017-01-15] MEDS ORDERED: SOD CHLORIDE 0.9% 100 ML ONE (17:52)
[2017-01-15] MEDS ORDERED: GLUCOSE GEL 15 GRAM TUBE BUCCAL PRN (19:00)
[2017-01-15] MEDS ORDERED: GLUCAGON 1 MG INJ IM PRN (19:00)
[2017-01-15] MEDS ORDERED: GLUCOSE GEL 15 GRAM TUBE PO PRN ×2 (19:00)
[2017-01-15] MEDS ORDERED: DEXTROSE 50% 50 ML SYRINGE IV PRN ×2 (19:00)
[2017-01-15] MEDS: SOD CHLORIDE 0.45% 1,000 ML IV SCH (20:56)
[2017-01-15] MEDS: NPH, HUMAN INSULIN ISOPHANE 3ML VIAL SC SCH (21:04)
[2017-01-15] MEDS: INSULIN ASPART [NOVOLOG] 3 ML PEN SC SCH (21:04)
[2017-01-15] MEDS: MONTELUKAST 10 MG TAB PO SCH (21:05)
[2017-01-15] MEDS: LOSARTAN 50 MG TAB PO SCH (21:07)
[2017-01-15] MEDS: MEROPENEM 2 GM in SOD CHLORIDE 0.9% 100 ML IVPB SCH (21:07)
[2017-01-15] MEDS: morphine 2 MG INJ IV PRN (21:13)
[2017-01-15 21:28] VITALS: Ht 154.9 cm; Wt 66.0 kg
[2017-01-15] MEDS ORDERED: PENDING SANTYL ORDER FOR WOUND CARE XX PRN (22:00)
[2017-01-16 02:00] VITALS: BP 159/63; PULSE 72; RESP 20
[2017-01-16] MEDS: ACCU-CHEK XX SCH (02:00)
[2017-01-16] MEDS ORDERED: ACCU-CHEK XX SCH ×2 (02:00)
[2017-01-16 06:27] LABS: ABNORMAL IP MESSAGE 1; BASOPHIL # 0.1 10^3/ul (0.0-0.1); BASOPHILS % 0.4 % (0.0-2.0); EOSINOPHILS # 0.5 10^3/ul (0.0-0.5); EOSINOPHILS % 2.4 % (0.0-7.0); HEMATOCRIT 22.8 % (37.0-47.0); HEMOGLOBIN 7.2 g/dl (12.0-16.0); LYMPHOCYTES # 2.7 10^3/ul (0.8-2.9); LYMPHOCYTES % 14.3 % (15.0-51.0); MEAN CORPUSCULAR HEMOGLOBIN 28.1 pg (29.0-33.0); MEAN CORPUSCULAR HGB CONC 31.6 g/dl (32.0-37.0); MEAN CORPUSCULAR VOLUME 89.1 fl (82.0-101.0); MEAN PLATELET VOLUME 10.1 fl (7.4-10.4); MONOCYTE # 1.7 10^3/ul (0.3-0.9); NEUTROPHILS % 72.6 % (39.0-77.0); PLATELET COUNT 317 10^3/UL (140-415); RED BLOOD COUNT 2.56 10^6/ul (4.20-5.40); WHITE BLOOD COUNT 18.6 10^3/ul (4.8-10.8)
[2017-01-16] MEDS: SOD CHLORIDE 0.45% 1,000 ML IV SCH (06:27)
[2017-01-16 07:04] LABS: ALBUMIN 2.1 g/dl (3.3-4.9); ALBUMIN/GLOBULIN RATIO 0.6; BILIRUBIN,INDIRECT 0.2 mg/dl (0-1.1); BILIRUBIN,TOTAL 0.2 mg/dl (0.2-1.3); CALCIUM 8.2 mg/dl (8.4-10.2); CREATININE 0.74 mg/dl (0.44-1.00); POTASSIUM 3.5 mmol/L (3.5-5.1); TOTAL PROTEIN 5.6 g/dl (6.1-8.1)
--- NOTE | 2017-01-16 07:28 | CONS ---
Date/Time of Note Date/Time of Note DATE: 01/16/17 TIME: 07:16 Assessment/Plan Assessment/Plan Chief Complaint/Hosp Course 1) progressive sacral ulcer, surrounding cellulitis await surgical input and debridement, consider MRI depending upon surgical eval wound cx to be obtained continue with vanco/merrem check ESR, CRP in a.m. 2) L heal ulcer with eschar no surrounding redness noted on picture 3) PVD 4) recent hx of LUE DVT 5) HTN Problems: Consultation Date/Type/Reason Admit Date/Time 01/15/17 Date of Consultation: Jan 16, 2017 Type of Consultation: ID Hx of Present Illness Pt admitted due to progressive deterioration of sacral ulcer she was recently treated for L heal osteo with vanco/merrem then cipro doxy from 10/29/16 to 12/11/16 pt unable to communication for attendant is present and states no F, C, NS, SOB , cough, D, V prior cx from [facility] grew Klebsiella, enterococcus, CoNS, corynebacterium Past Medical History HTN, PVD, parox a-fib, DVT, dementia Past Surgical History R BKA Social History Smoking Status: Never smoker Exam/Review of Systems Vital Signs Vitals Vital Signs Date Time Temp Pulse Resp B/P Pulse Ox O2 Delivery O2 Flow Rate FiO2 01/15/17 15:07 99.6 68 15 123/54 100 Nasal Cannula 2.0 Exam Constitutional: non-verbal Head: normocephalic Respiratory: clear to auscultation Cardiovascular: regular rate and rhythm Gastrointestinal: non-tender, soft Extremities: other (R BKA, pics shows L heal ulcer with eschar and minimal slough, sacral wound had large ulcer, undermining and moderate slough) Results Result Diagram: 01/15/17 1320 01/16/17 0513 Results 24 hrs Laboratory Tests Test 01/15/17 13:20 01/15/17 13:30 01/15/17 15:36 01/15/17 18:31 White Blood Count 19.0 #H Red Blood Count 3.06 L Hemoglobin 8.4 L Hematocrit 26.9 L Mean Corpuscular Volume 87.9 Mean Corpuscular Hemoglobin 27.5 L Mean Corpuscular Hemoglobin Concent 31.2 L Red Cell Distribution Width 14.8 H Platelet Count 375 # Mean Platelet Volume 9.7 Neutrophils % 74.3 Lymphocytes % 12.9 L Monocytes % 8.3 Eosinophils % 2.7 Basophils % 0.5 Nucleated Red Blood Cells % 0.0 Neutrophils # (Manual) 14.1 H Lymphocytes # 2.4 Monocytes # 1.6 H Eosinophils # 0.5 Basophils # 0.1 Nucleated Red Blood Cells # 0.0 Prothrombin Time 16.4 H Prothrombin Time Ratio 1.3 INR International Normalized Ratio 1.31 Activated Partial Thromboplast Time 45.1 H Lactic Acid Level 1.5 < 0.5 L Urine Color YELLOW Urine Clarity CLOUDY A Urine pH 6.0 Urine Specific [place] 1.014 Urine Ketones NEGATIVE Urine Nitrite NEGATIVE Urine Bilirubin NEGATIVE Urine Urobilinogen NEGATIVE Urine Leukocyte Esterase 3+ H Urine Microscopic RBC 5 Urine Microscopic WBC 87 H Urine Bacteria MODERATE Urine Mucus FEW A Urine Yeast (Budding) MANY A Urine Hemoglobin NEGATIVE Urine Glucose NEGATIVE Urine Total Protein 1+ H Sodium Level 142 Potassium Level 4.0 Chloride Level 102 Carbon Dioxide Level 27 Anion Gap 17 H Blood Urea Nitrogen 17 Creatinine 0.73 Glucose Level 234 H Calcium Level 8.6 Total Bilirubin 0.1 L Direct Bilirubin 0.00 Indirect Bilirubin 0.1 Aspartate Amino Transf (AST/SGOT) 136 H Alanine Aminotransferase (ALT/SGPT) 89 H Alkaline Phosphatase 114 Troponin I < 0.012 Total Protein 6.7 Albumin 2.6 L Globulin 4.10 H Albumin/Globulin Ratio 0.63 Bedside Glucose 245 H Test 01/15/17 20:15 01/15/17 20:53 01/16/17 05:13 Lactic Acid Level 0.9 Bedside Glucose 257 H White Blood Count Pending Red Blood Count Pending Hemoglobin Pending Hematocrit Pending Mean Corpuscular Volume Pending Mean Corpuscular Hemoglobin Pending Mean Corpuscular Hemoglobin Concent Pending Red Cell Distribution Width Pending Platelet Count Pending Mean Platelet Volume Pending Sodium Level 140 Potassium Level 3.5 Chloride Level 102 Carbon Dioxide Level 30 Anion Gap 12 Blood Urea Nitrogen 15 Creatinine 0.74 Glucose Level 145 # Calcium Level 8.2 L Total Bilirubin 0.2 Direct Bilirubin 0.00 Indirect Bilirubin 0.2 Aspartate Amino Transf (AST/SGOT) 108 H Alanine Aminotransferase (ALT/SGPT) 73 H Alkaline Phosphatase 101 Total Protein 5.6 #L Albumin 2.1 L Globulin 3.50 H Albumin/Globulin Ratio 0.60 Medications Medications Current Medications Sodium Chloride (1/2 NS) 1,000 ml @ 70 mls/hr [id number] IV Last administered on 01/15/17 20:56; Admin Dose 70 MLS/HR; Start 01/15/17 at 16:09 Ondansetron HCl (Zofran Inj) 4 mg Q6H PRN IV NAUSEA AND/OR VOMITING; Start at 16:30 Acetaminophen (Tylenol Tab) 650 mg Q6H PRN PO PAIN LEVEL 1-3 OR FEVER; Start at 16:30 Acetaminophen/ Hydrocodone Bitart ([place] (5/325)) 1 tab Q6H PRN PO MODERATE PAIN LEVEL 4-6; Start 01/15/17 at 16:30 Docusate Sodium (Colace) 100 mg Q12H PRN PO CONSTIPATION; Start 01/15/17 at 16: 30 Magnesium Hydroxide (Milk Of Mag) 30 ml DAILY PRN PO CONSTIPATION; Start at 16:30 Zolpidem Tartrate (Ambien) 5 mg QHS PRN PO SLEEP; Start 01/15/17 at 16:30 Aspirin (Halfprin) 81 mg DAILY PO ; Start 01/16/17 at 09:00 Losartan Potassium (Cozaar) 100 mg BID PO Last administered on 01/15/17 21:07 ; Admin Dose 100 MG; Start 01/15/17 at 21:00 Montelukast Sodium 10 mg 10 mg QHS PO Last administered on 01/15/17 21:05; Admin Dose 10 MG; Start 01/15/17 at 21:00 Meropenem/Sodium Chloride (Merrem/NS) 100 ml @ 200 mls/hr Q12 IVPB Last administered on 01/15/17 21:07; Admin Dose 200 MLS/HR; Start 01/15/17 at 21:00 Enoxaparin Sodium (Lovenox) 60 mg DAILY SC ; Start 01/16/17 at 09:00 Insulin Human NPH (Humulin N) 15 unit HS SC Last administered on 01/15/17 21: 04; Admin Dose 15 UNIT; Start 01/15/17 at 21:00 IV Flush (NS 10 ml) 10 ml PRN PRN IV IV PROTOCOL; Start 01/15/17 at 18:30 Miscellaneous Information 1 ea NOTE XX ; Start 01/15/17 at 19:00 Glucose (Glutose) 15 gm Q15M PRN PO DECREASED GLUCOSE; Start 01/15/17 at 19:00 Glucose (Glutose) 22.5 gm Q15M PRN PO DECREASED GLUCOSE; Start 01/15/17 at 19: 00 Dextrose (D50w Syringe) 25 ml Q15M PRN IV DECREASED GLUCOSE; Start 01/15/17 at 19:00 Dextrose (D50w Syringe) 50 ml Q15M PRN IV DECREASED GLUCOSE; Start 01/15/17 at 19:00 Glucagon (Glucagen) 1 mg Q15M PRN IM DECREASED GLUCOSE; Start 01/15/17 at 19:00 Glucose (Glutose) 15 gm Q15M PRN BUCCAL DECREASED GLUCOSE; Start 01/15/17 at 19 :00 Morphine Sulfate (morphine) 1 mg Q4H PRN IV pain moderate Last administered on 01/15/17t 21:13; Admin Dose 1 MG; Start 01/15/17 at 20:00 Diagnostic Test (Pha) (Accu-Chek) 1 ea 02 XX ; Start 01/16/17 at 02:00 Clonidine (Catapres) 0.1 mg Q6H PRN PO BLOOD PRESSURE SBP>160; Start 01/15/17 at 20:30 Miscellaneous Information (Pending Santyl Order For Wound Care) This patient jean baptiste... PRN PRN XX WOUND CARE; Start 01/15/17 at 22:00 ANTHONY WOODARD MD Jan 16, 2017 07:27
[2017-01-16 07:31] LABS: POSITIVE DIFF @See below
[2017-01-16] MEDS: INSULIN ASPART [NOVOLOG] 3 ML PEN SC SCH ×9 (07:35→21:00)
[2017-01-16 07:46] VITALS: BP 98/40; RESP 15
[2017-01-16] MEDS: ENOXAPARIN 40 MG/0.4 ML SYG SC SCH (08:23)
[2017-01-16] MEDS: ASPIRIN (EC) 81 MG TAB PO SCH (08:24)
[2017-01-16] MEDS: ACETAMINOPHEN 325 MG TAB PO PRN ×3 (08:24→21:03)
[2017-01-16] MEDS: LOSARTAN 50 MG TAB PO SCH ×2 (08:34→20:58)
[2017-01-16] MEDS: MEROPENEM 2 GM in SOD CHLORIDE 0.9% 100 ML IVPB SCH ×2 (09:06→21:04)
[2017-01-16 09:27] VITALS: BP 130/55; PULSE 72; RESP 16
[2017-01-16] MEDS ORDERED: POTASSIUM CHLORIDE 20 MEQ POWDER FOR ORAL SOLN PO STA ×2 (09:43→18:21)
[2017-01-16] MEDS ORDERED: ACETAMINOPHEN 500 MG TAB PO SCH (09:45)
[2017-01-16] MEDS ORDERED: DIPHENHYDRAMINE 25 MG CAP PO SCH (10:00)
[2017-01-16] MEDS: morphine 2 MG INJ IV PRN ×2 (11:26→23:42)
[2017-01-16] MEDS: D5W-0.45 NACL + KCL 20 MEQ 1,000 ML IV SCH (11:44)
[2017-01-16 14:31] VITALS: BP 126/58; RESP 16
--- NOTE | 2017-01-16 14:41 | PN ---
Date/Time of Note Date/Time of Note DATE: 01/16/17 TIME: 14:33 Assessment/Plan VTE Prophylaxis VTE Prophylaxis Intervention: LMWH Lines/Catheters IV [facility]from [facility] PICC Line Central line still needed: Yes Urinary Cath still in place: Yes Reason Cath still needed: pres ulcer contaminated by urine Assessment/Plan Problems: (1) Sepsis Status: Acute Comment: Patient with low-grade fever and marked leukocytosis. Most likely source of infection is the sacral decubitus ulcer and surrounding cellulitis. Treat with IV antibiotic per ID recommendation. Await surgical debridement. May need MRI of the pelvis since patient does have a history of osteomyelitis. (2) Anemia Status: Acute Comment: Severe anemia noted today, most likely due to chronic blood loss from wounds and chronic inflammatory disease. Will transfuse patient to bring hemoglobin up above 10.2. I will review records for previous history of anemia and start workup if necessary. (3) Sacral decubitus ulcer Status: Acute Comment: IV antibiotics, surgical debridement as noted above. Subjective 24 Hr Interval Summary Free Text/Dictation Patient was sedated after morphine dosing last night. Waking up this morning able to verbalize some complaints but still confused. The risk and benefits of blood transfusion has been discussed with patient's son and daughter. They consented. Exam/Review of Systems Vital Signs Vitals Vital Signs Date Time Temp Pulse Resp B/P Pulse Ox O2 Delivery O2 Flow Rate FiO2 01/16/17 14:31 99.6 80 16 126/58 98 01/16/17 09:27 Nasal Cannula 2.0 Intake and Output 01/15/17 01/15/17 01/16/17 15:00 23:00 07:00 Intake Total 50 ml Output Total 550 ml Balance -500 ml Exam Constitutional: alert, frail Head: normocephalic Eyes: nl sclera Respiratory: clear to auscultation Cardiovascular: regular rate and rhythm Gastrointestinal: non-tender, soft Extremities: other (Sacral dressing clean and dry.) Results Result Diagram: 01/16/17 0513 01/16/17 0513 Results 24 hrs Laboratory Tests Test 01/15/17 15:36 01/15/17 18:31 01/15/17 20:15 01/15/17 20:53 Lactic Acid Level < 0.5 L 0.9 Bedside Glucose 245 H 257 H Test 01/16/17 02:16 01/16/17 05:13 01/16/17 05:35 01/16/17 07:57 Bedside Glucose 195 152 White Blood Count 18.6 H Red Blood Count 2.56 L Hemoglobin 7.2 L Hematocrit 22.8 L Mean Corpuscular Volume 89.1 Mean Corpuscular Hemoglobin 28.1 L Mean Corpuscular Hemoglobin Concent 31.6 L Red Cell Distribution Width 15.0 H Platelet Count 317 Mean Platelet Volume 10.1 Neutrophils % 72.6 Lymphocytes % 14.3 L Monocytes % 9.0 Eosinophils % 2.4 Basophils % 0.4 Nucleated Red Blood Cells % 0.0 Neutrophils # (Manual) 13.5 H Lymphocytes # 2.7 Monocytes # 1.7 H Eosinophils # 0.5 Basophils # 0.1 Nucleated Red Blood Cells # 0.0 Sodium Level 140 Potassium Level 3.5 Chloride Level 102 Carbon Dioxide Level 30 Anion Gap 12 Blood Urea Nitrogen 15 Creatinine 0.74 Glucose Level 145 # Calcium Level 8.2 L Total Bilirubin 0.2 Direct Bilirubin 0.00 Indirect Bilirubin 0.2 Aspartate Amino Transf (AST/SGOT) 108 H Alanine Aminotransferase (ALT/SGPT) 73 H Alkaline Phosphatase 101 Total Protein 5.6 #L Albumin 2.1 L Globulin 3.50 H Albumin/Globulin Ratio 0.60 Hemoglobin A1c 7.0 H Test 01/16/17 12:03 Bedside Glucose 179 Medications Medications Current Medications Ondansetron HCl (Zofran Inj) 4 mg Q6H PRN IV NAUSEA AND/OR VOMITING; Start at 16:30 Acetaminophen (Tylenol Tab) 650 mg Q6H PRN PO PAIN LEVEL 1-3 OR FEVER; Start at 16:30 Acetaminophen/ Hydrocodone Bitart ([place] (5/325)) 1 tab Q6H PRN PO MODERATE PAIN LEVEL 4-6; Start 01/15/17 at 16:30 Docusate Sodium (Colace) 100 mg Q12H PRN PO CONSTIPATION; Start 01/15/17 at 16: 30 Magnesium Hydroxide (Milk Of Mag) 30 ml DAILY PRN PO CONSTIPATION; Start at 16:30 Zolpidem Tartrate (Ambien) 5 mg QHS PRN PO SLEEP; Start 01/15/17 at 16:30 Aspirin (Halfprin) 81 mg DAILY PO Last administered on 01/16/17t 08:24; Admin Dose 81 MG; Start 01/16/17 at 09:00 Losartan Potassium (Cozaar) 100 mg BID PO Last administered on 01/15/17 21:07 ; Admin Dose 100 MG; Start 01/15/17 at 21:00 Montelukast Sodium 10 mg 10 mg QHS PO Last administered on 01/15/17 21:05; Admin Dose 10 MG; Start 01/15/17 at 21:00 Meropenem/Sodium Chloride (Merrem/NS) 100 ml @ 200 mls/hr Q12 IVPB Last administered on 01/16/17 09:06; Admin Dose 200 MLS/HR; Start 01/15/17 at 21:00 Enoxaparin Sodium (Lovenox) 60 mg DAILY SC Last administered on 01/16/17 08:23 ; Admin Dose 60 MG; Start 01/16/17 at 09:00 Insulin Human NPH (Humulin N) 15 unit HS SC Last administered on 01/15/17 21: 04; Admin Dose 15 UNIT; Start 01/15/17 at 21:00 IV Flush (NS 10 ml) 10 ml PRN PRN IV IV PROTOCOL; Start 01/15/17 at 18:30 Miscellaneous Information 1 ea NOTE XX ; Start 01/15/17 at 19:00 Glucose (Glutose) 15 gm Q15M PRN PO DECREASED GLUCOSE; Start 01/15/17 at 19:00 Glucose (Glutose) 22.5 gm Q15M PRN PO DECREASED GLUCOSE; Start 01/15/17 at 19: 00 Dextrose (D50w Syringe) 25 ml Q15M PRN IV DECREASED GLUCOSE; Start 01/15/17 at 19:00 Dextrose (D50w Syringe) 50 ml Q15M PRN IV DECREASED GLUCOSE; Start 01/15/17 at 19:00 Glucagon (Glucagen) 1 mg Q15M PRN IM DECREASED GLUCOSE; Start 01/15/17 at 19:00 Glucose (Glutose) 15 gm Q15M PRN BUCCAL DECREASED GLUCOSE; Start 01/15/17 at 19 :00 Morphine Sulfate (morphine) 1 mg Q4H PRN IV pain moderate Last administered on 01/16/17 11:26; Admin Dose 1 MG; Start 01/15/17 at 20:00 Diagnostic Test (Pha) (Accu-Chek) 1 ea 02 XX ; Start 01/16/17 at 02:00 Clonidine (Catapres) 0.1 mg Q6H PRN PO BLOOD PRESSURE SBP>160; Start 01/15/17 at 20:30 Miscellaneous Information (Pending [facility] Order For Wound Care) This patient jean baptiste... PRN PRN XX WOUND CARE; Start 01/15/17 at 22:00 Furosemide (Lasix) 20 mg ONCE IV ; Start 01/16/17 at 15:00; Stop 01/16/17 at 19: 00 Diphenhydramine HCl 25 mg 25 mg ONCE PO Last administered on 01/16/17 14:07; Admin Dose 25 MG; Start 01/16/17 at 10:00; Stop 01/16/17 at 16:00 Potassium Chloride/Dextrose/ Sod Cl (D5-1/2ns + KCl 20 Meq) 1,000 ml @ 70 mls/ hr [id number] IV Last administered on 01/16/17 11:44; Admin Dose 70 MLS/HR; Start 01/16/17 at 10:00 MARIYA DALTON MD Jan 16, 2017 14:41
[2017-01-16] MEDS ORDERED: FUROSEMIDE 20 MG INJ IV SCH (15:00)
[2017-01-16 20:00] VITALS: BP 129/61; RESP 19
[2017-01-16] MEDS: MONTELUKAST 10 MG TAB PO SCH (20:58)
[2017-01-16] MEDS: NPH, HUMAN INSULIN ISOPHANE 3ML VIAL SC SCH (21:01)
[2017-01-16] MEDS: COLLAGENASE 30 GM TUBE TOP SCH (21:05)
[2017-01-17] MEDS: D5W-0.45 NACL + KCL 20 MEQ 1,000 ML IV SCH ×2 (00:18→06:31)
[2017-01-17 02:00] VITALS: BP 123/60; RESP 20
[2017-01-17] MEDS: ACCU-CHEK XX SCH (02:00)
[2017-01-17 02:35] VITALS: BP 195/73; PULSE 95; RESP 20
[2017-01-17 03:00] VITALS: BP 136/59; PULSE 79; RESP 20
[2017-01-17] MEDS ORDERED: DIPHENHYDRAMINE 50 MG INJ IV ONE (03:00)
[2017-01-17] MEDS ORDERED: hydrALAzine 20 MG INJ IV PRN (03:00)
[2017-01-17 06:35] LABS: BASOPHIL # 0.1 10^3/ul (0.0-0.1); BASOPHILS % 0.4 % (0.0-2.0); EOSINOPHILS # 0.3 10^3/ul (0.0-0.5); EOSINOPHILS % 1.2 % (0.0-7.0); HEMATOCRIT 30.5 % (37.0-47.0); HEMOGLOBIN 10.2 g/dl (12.0-16.0); LYMPHOCYTES # 1.2 10^3/ul (0.8-2.9); LYMPHOCYTES % 5.2 % (15.0-51.0); MEAN CORPUSCULAR HGB CONC 33.4 g/dl (32.0-37.0); MEAN CORPUSCULAR VOLUME 83.8 fl (82.0-101.0); MEAN PLATELET VOLUME 10.4 fl (7.4-10.4); MONOCYTE # 1.1 10^3/ul (0.3-0.9); NEUTROPHILS % 86.6 % (39.0-77.0); PLATELET COUNT 273 10^3/UL (140-415); RED BLOOD COUNT 3.64 10^6/ul (4.20-5.40); RED CELL DISTRIBUTION WIDTH 15.2 % (11.5-14.5); WHITE BLOOD COUNT 22.6 10^3/ul (4.8-10.8)
[2017-01-17] MEDS: ACETAMINOPHEN 325 MG TAB PO PRN ×2 (06:40→06:44)
[2017-01-17 06:47] LABS: POSITIVE DIFF Y
[2017-01-17 06:59] LABS: CREATININE 0.72 mg/dl (0.44-1.00); POTASSIUM 3.1 mmol/L (3.5-5.1)
[2017-01-17] MEDS ORDERED: ACETAMINOPHEN 650 MG SUPP PR PRN (07:00)
[2017-01-17 07:11] LABS: C-REACTIVE PROTEIN 14.8 mg/dl (0.0-0.9)
[2017-01-17 07:52] VITALS: BP 102/43; RESP 16
[2017-01-17] MEDS: INSULIN ASPART [NOVOLOG] 3 ML PEN SC SCH ×7 (08:58→21:00)
[2017-01-17] MEDS: LOSARTAN 50 MG TAB PO SCH ×3 (09:00→21:00)
[2017-01-17] MEDS: ENOXAPARIN 40 MG/0.4 ML SYG SC SCH (09:00)
[2017-01-17] MEDS: ASPIRIN (EC) 81 MG TAB PO SCH (09:02)
[2017-01-17] MEDS: COLLAGENASE 30 GM TUBE TOP SCH (09:02)
[2017-01-17] MEDS: MEROPENEM 1 GM/50ML(PMX) 50 ML IVPB SCH ×2 (09:55→17:38)
--- NOTE | 2017-01-17 09:58 | CONS ---
Date/Time of Note Date/Time of Note DATE: 01/17/17 TIME: 09:49 Assessment/Plan Assessment/Plan Chief Complaint/Hosp Course 1) progressive sacral ulcer, surrounding cellulitis await surgical input and debridement, consider MRI depending upon surgical eval wound cx to be obtained continue with vanco/merrem check ESR, CRP in a.m. 01/17 - proteus and another GNR in wound cx continue with merrem/vanco esr and CRP are moderately elevated mrsa to nares to start bactroban await surgical input pt is more awake today and able to answer some questions in japanese 2) L heal ulcer with eschar no surrounding redness noted on picture 3) PVD 4) recent hx of LUE DVT 5) HTN Problems: Consultation Date/Type/Reason Admit Date/Time Jan 15, 2017 at 14:33 Initial Consult Date 01/16/17 Type of Consultation: ID [id number] HR Interval Summary Free Text/Dictation pt more awake she denies cough but breathing is not normal no V, D pt got blood tx yesterday only mild pain to back Exam/Review of Systems Vital Signs Vitals Vital Signs Date Time Temp Pulse Resp B/P Pulse Ox O2 Delivery O2 Flow Rate FiO2 01/17/17 07:56 Nasal Cannula 2.0 01/17/17 07:52 99.9 72 16 102/43 99 Intake and Output 01/16/17 01/16/17 01/17/17 15:00 23:00 07:00 Intake Total 300 ml 1330 ml 780 ml Output Total 600 ml 1200 ml Balance 300 ml 730 ml -420 ml Exam Constitutional: alert ENMT: mucosa pink and moist Respiratory: clear to auscultation Cardiovascular: regular rate and rhythm Gastrointestinal: non-tender, soft Results Result Diagram: 01/17/17 0439 01/17/17 0439 Results 24 hrs Laboratory Tests Test 01/16/17 12:03 01/16/17 17:31 01/16/17 20:56 01/17/17 01:45 Bedside Glucose 179 188 184 175 Test 01/17/17 04:39 01/17/17 07:47 01/17/17 08:16 White Blood Count 22.6 #H Red Blood Count 3.64 #L Hemoglobin 10.2 #L Hematocrit 30.5 #L Mean Corpuscular Volume 83.8 Mean Corpuscular Hemoglobin 28.0 L Mean Corpuscular Hemoglobin Concent 33.4 Red Cell Distribution Width 15.2 H Platelet Count 273 Mean Platelet Volume 10.4 Neutrophils % 86.6 H Lymphocytes % 5.2 L Monocytes % 5.0 Eosinophils % 1.2 Basophils % 0.4 Nucleated Red Blood Cells % 0.0 Neutrophils # (Manual) 19.6 H Lymphocytes # 1.2 Monocytes # 1.1 H Eosinophils # 0.3 Basophils # 0.1 Nucleated Red Blood Cells # 0.0 Erythrocyte Sedimentation Rate 78 H Sodium Level 141 Potassium Level 3.1 L Chloride Level 100 Carbon Dioxide Level 27 Anion Gap 17 H Blood Urea Nitrogen 13 Creatinine 0.72 Glucose Level 214 Calcium Level 8.0 L C-Reactive Protein 14.8 H Lab Scanned Report BLOOD TRANSFUSION Bedside Glucose 253 H Medications Medications Current Medications Ondansetron HCl (Zofran Inj) 4 mg Q6H PRN IV NAUSEA AND/OR VOMITING; Start at 16:30 Acetaminophen (Tylenol Tab) 650 mg Q6H PRN PO PAIN LEVEL 1-3 OR FEVER Last administered on 01/17/17 06:40; Admin Dose 650 MG; Start 01/15/17 at 16:30 Acetaminophen/ Hydrocodone Bitart ([place] (5/325)) 1 tab Q6H PRN PO MODERATE PAIN LEVEL 4-6; Start 01/15/17 at 16:30 Docusate Sodium (Colace) 100 mg Q12H PRN PO CONSTIPATION; Start 01/15/17 at 16: 30 Magnesium Hydroxide (Milk Of Mag) 30 ml DAILY PRN PO CONSTIPATION; Start at 16:30 Zolpidem Tartrate (Ambien) 5 mg QHS PRN PO SLEEP; Start 01/15/17 at 16:30 Aspirin (Halfprin) 81 mg DAILY PO Last administered on 01/17/17 09:02; Admin Dose 81 MG; Start 01/16/17 at 09:00 Losartan Potassium (Cozaar) 100 mg BID PO Last administered on 01/16/17 20:58 ; Admin Dose 100 MG; Start 01/15/17 at 21:00 Montelukast Sodium (Singulair) 10 mg QHS PO Last administered on 01/16/17 20: 58; Admin Dose 10 MG; Start 01/15/17 at 21:00 Enoxaparin Sodium (Lovenox) 60 mg DAILY SC Last administered on 01/17/17 09:00 ; Admin Dose 60 MG; Start 01/16/17 at 09:00 Insulin Human NPH (Humulin N) 15 unit HS SC Last administered on 01/16/17 21: 01; Admin Dose 15 UNIT; Start 01/15/17 at 21:00 IV Flush (NS 10 ml) 10 ml PRN PRN IV IV PROTOCOL; Start 01/15/17 at 18:30 Miscellaneous Information 1 ea NOTE XX ; Start 01/15/17 at 19:00 Glucose (Glutose) 15 gm Q15M PRN PO DECREASED GLUCOSE; Start 01/15/17 at 19:00 Glucose (Glutose) 22.5 gm Q15M PRN PO DECREASED GLUCOSE; Start 01/15/17 at 19: 00 Dextrose (D50w Syringe) 25 ml Q15M PRN IV DECREASED GLUCOSE; Start 01/15/17 at 19:00 Dextrose (D50w Syringe) 50 ml Q15M PRN IV DECREASED GLUCOSE; Start 01/15/17 at 19:00 Glucagon (Glucagen) 1 mg Q15M PRN IM DECREASED GLUCOSE; Start 01/15/17 at 19:00 Glucose (Glutose) 15 gm Q15M PRN BUCCAL DECREASED GLUCOSE; Start 01/15/17 at 19 :00 Morphine Sulfate (morphine) 1 mg Q4H PRN IV pain moderate Last administered on 01/16/17 23:42; Admin Dose 1 MG; Start 01/15/17 at 20:00 Diagnostic Test (Pha) (Accu-Chek) 1 ea 02 XX ; Start 01/16/17 at 02:00 Clonidine (Catapres) 0.1 mg Q6H PRN PO BLOOD PRESSURE SBP>160 Last administered on 01/16/17 23:42; Admin Dose 0.1 MG; Start 01/15/17 at 20:30 Miscellaneous Information This patient jean baptiste... PRN PRN XX WOUND CARE; Start 01/15 at 22:00 Potassium Chloride/Dextrose/ Sod Cl (D5-1/2ns + KCl 20 Meq) 1,000 ml @ 70 mls/ hr [id number] IV Last administered on 01/17/17 06:31; Admin Dose 70 MLS/HR; Start 01/16/17 at 10:00 Collagenase (Santyl) 1 applic DAILY TOP Last administered on 01/17/17 09:02; Admin Dose 1 APPLIC; Start 01/16/17 at 21:00 Hydralazine HCl (Apresoline) 10 mg Q6 PRN IV ELEVATED BLOOD PRESSURE Last administered on 01/17/17 03:05; Admin Dose 10 MG; Start 01/17/17 at 03:00 Acetaminophen 650 mg 650 mg Q6H PRN PA FEVER GREATER THAN 100.6 Last administered on 01/17/17 07:26; Admin Dose 650 MG; Start 01/17/17 at 07:00 Meropenem/Sodium Chloride (Merrem 1 Gm/50 ml (Pmx)) 50 ml @ 200 mls/hr Q8H IVPB ; Start 01/17/17 at 10:00 ANTHONY WOODARD MD Jan 17, 2017 09:58
[2017-01-17] MEDS: MUPIROCIN 2% 22 GM OINT TOP SCH ×2 (12:08→21:59)
[2017-01-17] MEDS ORDERED: POTASSIUM CHLORIDE 20 MEQ in SOD CHLORIDE 0.9% 100 ML IVPB ONE (13:30)
[2017-01-17] MEDS ORDERED: NPH, HUMAN INSULIN ISOPHANE 3ML VIAL SC ONE (13:30)
[2017-01-17 14:12] VITALS: BP 112/47; RESP 19
--- NOTE | 2017-01-17 14:53 | PN ---
Date/Time of Note Date/Time of Note DATE: 01/17/17 TIME: 14:38 Assessment/Plan VTE Prophylaxis VTE Prophylaxis Intervention: LMWH Lines/Catheters IV Catheter Type (from [facility]): PICC Line Central line still needed: Yes Urinary Cath still in place: Yes Reason Cath still needed: pres ulcer contaminated by urine Assessment/Plan Problems: (1) Arm edema Status: Acute Comment: check LUE venous doppler for DVT but patient on Lovenox (2) Sacral decubitus ulcer Status: Acute Comment: On kevin/vanco at recommendation of ID Dr. Shen. Dr. Garcia will see patient re. surgical debridement. (3) Sepsis Status: Acute Comment: continue antibiotics. Increased wbc this am maybe due to transfusion reaction. Recheck in am. (4) Anemia Status: Chronic Comment: improved after transfusion to baseline chronic anemia. (5) Diabetes mellitus with insulin therapy Status: Chronic Comment: Increase NPH to bid since patient not eating much and getting D5 saline ATC. (6) Hypokalemia Status: Acute Comment: Due to post-transfusion lasix, replace IV since patient refused po potassium. (7) Abnormal liver enzymes Status: Acute Comment: probably due to systemic infection. Will follow and check for Hepatitis infection. (8) Malnutrition Status: Chronic Comment: Low protein and albumin and anemia suggestive of chronic malnutrition. Patient also refusing food most of the time when she is sleeping. Check pre-albumin level , consider TPN if patient continues to have poor po intake due to mental status fluctuation. Subjective 24 Hr Interval Summary Free Text/Dictation Patient awake and alert, reports fatigue of her legs. Had mild fever and elevated bp last night after blood transfusion. Improved with IV hydralazine and benadryl. Exam/Review of Systems Vital Signs Vitals Vital Signs Date Time Temp Pulse Resp B/P Pulse Ox O2 Delivery O2 Flow Rate FiO2 01/17/17 14:12 98.6 72 19 112/47 99 01/17/17 07:56 Nasal Cannula 2.0 Intake and Output 01/16/17 01/16/17 01/17/17 15:00 23:00 07:00 Intake Total 300 ml 1330 ml 780 ml Output Total 600 ml 1200 ml Balance 300 ml 730 ml -420 ml Exam Constitutional: alert Eyes: other (cloudy right pupil) Respiratory: clear to auscultation Cardiovascular: regular rate and rhythm Gastrointestinal: non-tender, soft Extremities: other (Left arm edematous below PICC line) Results Result Diagram: 01/17/17 0439 01/17/17 0439 Results 24 hrs Laboratory Tests Test 01/16/17 17:31 01/16/17 20:56 01/17/17 01:45 01/17/17 04:39 Bedside Glucose 188 184 175 White Blood Count 22.6 #H Red Blood Count 3.64 #L Hemoglobin 10.2 #L Hematocrit 30.5 #L Mean Corpuscular Volume 83.8 Mean Corpuscular Hemoglobin 28.0 L Mean Corpuscular Hemoglobin Concent 33.4 Red Cell Distribution Width 15.2 H Platelet Count 273 Mean Platelet Volume 10.4 Neutrophils % 86.6 H Lymphocytes % 5.2 L Monocytes % 5.0 Eosinophils % 1.2 Basophils % 0.4 Nucleated Red Blood Cells % 0.0 Neutrophils # (Manual) 19.6 H Lymphocytes # 1.2 Monocytes # 1.1 H Eosinophils # 0.3 Basophils # 0.1 Nucleated Red Blood Cells # 0.0 Erythrocyte Sedimentation Rate 78 H Sodium Level 141 Potassium Level 3.1 L Chloride Level 100 Carbon Dioxide Level 27 Anion Gap 17 H Blood Urea Nitrogen 13 Creatinine 0.72 Glucose Level 214 Calcium Level 8.0 L C-Reactive Protein 14.8 H Test 01/17/17 07:47 01/17/17 08:16 01/17/17 11:58 Lab Scanned Report BLOOD TRANSFUSION Bedside Glucose 253 H 242 H Medications Medications Current Medications Ondansetron HCl (Zofran Inj) 4 mg Q6H PRN IV NAUSEA AND/OR VOMITING; Start at 16:30 Acetaminophen (Tylenol Tab) 650 mg Q6H PRN PO PAIN LEVEL 1-3 OR FEVER Last administered on 01/17/17t 06:40; Admin Dose 650 MG; Start 01/15/17 at 16:30 Acetaminophen/ Hydrocodone Bitart ([place] (5/325)) 1 tab Q6H PRN PO MODERATE PAIN LEVEL 4-6; Start 01/15/17 at 16:30 Docusate Sodium (Colace) 100 mg Q12H PRN PO CONSTIPATION; Start 01/15/17 at 16: 30 Magnesium Hydroxide (Milk Of Mag) 30 ml DAILY PRN PO CONSTIPATION; Start at 16:30 Zolpidem Tartrate (Ambien) 5 mg QHS PRN PO SLEEP; Start 01/15/17 at 16:30 Aspirin (Halfprin) 81 mg DAILY PO Last administered on 01/17/17 09:02; Admin Dose 81 MG; Start 01/16/17 at 09:00 Losartan Potassium (Cozaar) 100 mg BID PO Last administered on 01/16/17 20:58 ; Admin Dose 100 MG; Start 01/15/17 at 21:00 Montelukast Sodium (Singulair) 10 mg QHS PO Last administered on 01/16/17 20: 58; Admin Dose 10 MG; Start 01/15/17 at 21:00 Enoxaparin Sodium (Lovenox) 60 mg DAILY SC Last administered on 01/17/17 09:00 ; Admin Dose 60 MG; Start 01/16/17 at 09:00 IV Flush (NS 10 ml) 10 ml PRN PRN IV IV PROTOCOL; Start 01/15/17 at 18:30 Miscellaneous Information 1 ea NOTE XX ; Start 01/15/17 at 19:00 Glucose (Glutose) 15 gm Q15M PRN PO DECREASED GLUCOSE; Start 01/15/17 at 19:00 Glucose (Glutose) 22.5 gm Q15M PRN PO DECREASED GLUCOSE; Start 01/15/17 at 19: 00 Dextrose (D50w Syringe) 25 ml Q15M PRN IV DECREASED GLUCOSE; Start 01/15/17 at 19:00 Dextrose (D50w Syringe) 50 ml Q15M PRN IV DECREASED GLUCOSE; Start 01/15/17 at 19:00 Glucagon (Glucagen) 1 mg Q15M PRN IM DECREASED GLUCOSE; Start 01/15/17 at 19:00 Glucose (Glutose) 15 gm Q15M PRN BUCCAL DECREASED GLUCOSE; Start 01/15/17 at 19 :00 Morphine Sulfate (morphine) 1 mg Q4H PRN IV pain moderate Last administered on 01/16/17 23:42; Admin Dose 1 MG; Start 01/15/17 at 20:00 Diagnostic Test (Pha) (Accu-Chek) 1 ea 02 XX ; Start 01/16/17 at 02:00 Clonidine (Catapres) 0.1 mg Q6H PRN PO BLOOD PRESSURE SBP>160 Last administered on 01/16/17 23:42; Admin Dose 0.1 MG; Start 01/15/17 at 20:30 Miscellaneous Information This patient jean baptiste... PRN PRN XX WOUND CARE; Start 01/15 at 22:00 Potassium Chloride/Dextrose/ Sod Cl (D5-1/2ns + KCl 20 Meq) 1,000 ml @ 70 mls/ hr [id number] IV Last administered on 01/17/17 06:31; Admin Dose 70 MLS/HR; Start 01/16/17 at 10:00 Collagenase (Santyl) 1 applic DAILY TOP Last administered on 01/17/17 09:02; Admin Dose 1 APPLIC; Start 01/16/17 at 21:00 Hydralazine HCl (Apresoline) 10 mg Q6 PRN IV ELEVATED BLOOD PRESSURE Last administered on 01/17/17 03:05; Admin Dose 10 MG; Start 01/17/17 at 03:00 Acetaminophen 650 mg 650 mg Q6H PRN MD FEVER GREATER THAN 100.6 Last administered on 01/17/17 07:26; Admin Dose 650 MG; Start 01/17/17 at 07:00 Meropenem/Sodium Chloride (Merrem 1 Gm/50 ml (Pmx)) 50 ml @ 200 mls/hr Q8H IVPB Last administered on 01/17/17 09:55; Admin Dose 200 MLS/HR; Start at 10:00 Mupirocin (Bactroban) 1 applic BID TOP Last administered on 01/17/17 12:08; Admin Dose 1 APPLIC; Start 01/17/17 at 11:00 Insulin Human NPH 15 unit 15 unit BID SC ; Start 01/17/17 at 21:00 Potassium Chloride/Sodium Chloride (KCl/NS) 110 ml @ 55 mls/hr ONCE ONCE IVPB ; Start 01/17/17 at 13:30; Stop 01/17/17 at 15:29 MARIYA DALTON MD Jan 17, 2017 14:52
--- NOTE | 2017-01-17 17:33 | RADRPT ---
PROCEDURE: US left upper extremity veins. CLINICAL INDICATION: Left arm pain and swelling. Left arm PICC line. TECHNIQUE: Multiple longitudinal and transverse images of the left upper extremity venous tree was obtained with ferrari scale, pulsed Doppler, and color Doppler imaging. COMPARISON: None available FINDINGS: There is thrombus in the left upper arm basilic vein and axillary vein with lack of flow and lack of compressibility. The PICC line is visualized in the left basilic vein and left axillary vein. There is normal flow and compressibility of the left internal jugular, left subclavian, left brachia l, left radial, left cephalic, and left ulnar veins. IMPRESSION: 1. Left arm PICC line noted with thrombus in the left basilic vein and axillary vein. 2. Otherwise normal venous system of the left upper extremity. RPTAT: QQ .Tod Elias MD, MD Date Time Electronically viewed and signed by .Tod Elias MD, MD on 01/17/2017 17:32 .R/
[2017-01-17 20:39] VITALS: BP 105/46; RESP 18
[2017-01-17] MEDS ORDERED: NPH, HUMAN INSULIN ISOPHANE 3ML VIAL SC SCH (21:00)
[2017-01-17] MEDS: MONTELUKAST 10 MG TAB PO SCH (21:53)
[2017-01-17] MEDS: ENOXAPARIN 100 MG/ML SYG SC SCH (21:55)
[2017-01-17] MEDS: morphine 2 MG INJ IV PRN (23:32)
[2017-01-18] MEDS: D5W-0.45 NACL + KCL 20 MEQ 1,000 ML IV SCH ×2 (00:27→20:29)
[2017-01-18] MEDS: ACCU-CHEK XX SCH (02:00)
[2017-01-18 02:38] VITALS: BP 94/45; RESP 18
[2017-01-18] MEDS: MEROPENEM 1 GM/50ML(PMX) 50 ML IVPB SCH ×3 (03:20→17:29)
[2017-01-18] MEDS: morphine 2 MG INJ IV PRN ×3 (04:18→22:40)
[2017-01-18 05:43] LABS: HAAIG REFLEX REFLEX FILED
[2017-01-18 05:46] LABS: ABNORMAL IP MESSAGE 1; BASOPHIL # 0.1 10^3/ul (0.0-0.1); BASOPHILS % 0.4 % (0.0-2.0); EOSINOPHILS # 0.5 10^3/ul (0.0-0.5); EOSINOPHILS % 2.3 % (0.0-7.0); HEMATOCRIT 30.2 % (37.0-47.0); HEMOGLOBIN 9.7 g/dl (12.0-16.0); LYMPHOCYTES # 3.9 10^3/ul (0.8-2.9); LYMPHOCYTES % 17.5 % (15.0-51.0); MEAN CORPUSCULAR HEMOGLOBIN 27.2 pg (29.0-33.0); MEAN CORPUSCULAR HGB CONC 32.1 g/dl (32.0-37.0); MEAN CORPUSCULAR VOLUME 84.8 fl (82.0-101.0); MEAN PLATELET VOLUME 10.2 fl (7.4-10.4); MONOCYTE # 1.5 10^3/ul (0.3-0.9); MONOCYTES % 6.8 % (0.0-11.0); NEUTROPHILS % 71.5 % (39.0-77.0); PLATELET COUNT 294 10^3/UL (140-415); RED BLOOD COUNT 3.56 10^6/ul (4.20-5.40); RED CELL DISTRIBUTION WIDTH 15.9 % (11.5-14.5); WHITE BLOOD COUNT 22.2 10^3/ul (4.8-10.8)
[2017-01-18 05:50] LABS: POSITIVE DIFF @See below
[2017-01-18 06:44] LABS: IRON < 10 ug/dl (35-150)
[2017-01-18 06:53] LABS: TOTAL IRON BINDING CAPACITY 133 ug/dl (241-421)
[2017-01-18 06:54] LABS: ALBUMIN 1.5 g/dl (3.3-4.9); ALBUMIN/GLOBULIN RATIO 0.57; BILIRUBIN,INDIRECT 0.2 mg/dl (0-1.1); BILIRUBIN,TOTAL 0.2 mg/dl (0.2-1.3); CREATININE 0.51 mg/dl (0.44-1.00); TOTAL PROTEIN 4.1 g/dl (6.1-8.1)
[2017-01-18] MEDS: INSULIN ASPART [NOVOLOG] 3 ML PEN SC SCH ×7 (07:35→20:51)
[2017-01-18 07:37] LABS: HEPATITIS B CORE ANTIBODY NEGATIVE (NEGATIVE)
[2017-01-18 07:42] LABS: POTASSIUM 3.5 mmol/L (3.5-5.1)
[2017-01-18 07:45] LABS: CALCIUM 5.2 mg/dl (8.4-10.2)
[2017-01-18 08:04] VITALS: BP 121/51; RESP 19
[2017-01-18] MEDS: NPH, HUMAN INSULIN ISOPHANE 3ML VIAL SC SCH ×2 (08:18→20:46)
--- NOTE | 2017-01-18 08:37 | CONS ---
Date/Time of Note Date/Time of Note DATE: 01/18/17 TIME: 08:34 Assessment/Plan Assessment/Plan Chief Complaint/Hosp Course 1) progressive sacral ulcer, surrounding cellulitis await surgical input and debridement, consider MRI depending upon surgical eval wound cx to be obtained continue with vanco/merrem check ESR, CRP in a.m. 01/17 - proteus and another GNR in wound cx continue with merrem/vanco esr and CRP are moderately elevated mrsa to nares to start bactroban await surgical input pt is more awake today and able to answer some questions in jordanian 01/18 - pt persistence of fever and elevated wbc is either due to an undrained abscess or inadequate antibiotics await wound care eval and surgical debridement will order MRI scan if no wound care is delivered by tomorrow wound cx has proteus, GNR and enterococcus continue with vanco/merrem at present 2) L heal ulcer with eschar no surrounding redness noted on picture 3) PVD 4) recent hx of LUE DVT 5) HTN Problems: Consultation Date/Type/Reason Admit Date/Time Jan 15, 2017 at 14:33 Initial Consult Date 01/16/17 Type of Consultation: ID [id number] HR Interval Summary Free Text/Dictation pt was asleep spoke to nurse, poor appetite no V, D still with fevers, no wound care nurse has seen pt Exam/Review of Systems Vital Signs Vitals Vital Signs Date Time Temp Pulse Resp B/P Pulse Ox O2 Delivery O2 Flow Rate FiO2 01/18/17 08:04 100.3 85 19 121/51 97 01/17/17 07:56 Nasal Cannula 2.0 Intake and Output 01/17/17 01/17/17 01/18/17 15:00 23:00 07:00 Intake Total 1170 ml 740 ml Output Total 250 ml 250 ml Balance 920 ml 490 ml Exam asleep Head: normocephalic Respiratory: clear to auscultation Cardiovascular: regular rate and rhythm Gastrointestinal: non-tender, soft Results Result Diagram: 01/18/17 0435 01/18/17 0435 Results 24 hrs Laboratory Tests Test 01/17/17 11:58 01/17/17 16:41 01/17/17 21:58 01/18/17 04:35 Bedside Glucose 242 H 129 99 White Blood Count 22.2 H Red Blood Count 3.56 L Hemoglobin 9.7 L Hematocrit 30.2 L Mean Corpuscular Volume 84.8 Mean Corpuscular Hemoglobin 27.2 L Mean Corpuscular Hemoglobin Concent 32.1 Red Cell Distribution Width 15.9 H Platelet Count 294 Mean Platelet Volume 10.2 Neutrophils % 71.5 Lymphocytes % 17.5 Monocytes % 6.8 Eosinophils % 2.3 Basophils % 0.4 Nucleated Red Blood Cells % 0.0 Neutrophils # (Manual) 15.9 H Lymphocytes # 3.9 H Monocytes # 1.5 H Eosinophils # 0.5 Basophils # 0.1 Nucleated Red Blood Cells # 0.0 Sodium Level 143 Potassium Level 3.5 Chloride Level 115 H Carbon Dioxide Level 19 L Anion Gap 13 Blood Urea Nitrogen 8 Creatinine 0.51 Glucose Level 238 H Calcium Level 5.2 *L Iron Level < 10 L Total Iron Binding Capacity 133 L Percent Iron Saturation Total Bilirubin 0.2 Direct Bilirubin 0.00 Indirect Bilirubin 0.2 Aspartate Amino Transf (AST/SGOT) 26 Alanine Aminotransferase (ALT/SGPT) 38 Alkaline Phosphatase 65 Total Protein 4.1 #L Albumin 1.5 L Globulin 2.60 Albumin/Globulin Ratio 0.57 Prealbumin 3.1 L Thyroid Stimulating Hormone (TSH) 3.600 Hepatitis B Surface Antigen NEGATIVE Hepatitis B Core Total Antibody NEGATIVE Hepatitis C Antibody NEGATIVE Test 01/18/17 08:13 Bedside Glucose 116 Medications Medications Current Medications Ondansetron HCl (Zofran Inj) 4 mg Q6H PRN IV NAUSEA AND/OR VOMITING; Start at 16:30 Acetaminophen (Tylenol Tab) 650 mg Q6H PRN PO PAIN LEVEL 1-3 OR FEVER Last administered on 01/17/17t 06:40; Admin Dose 650 MG; Start 01/15/17 at 16:30 Acetaminophen/ Hydrocodone Bitart ([place] (5/325)) 1 tab Q6H PRN PO MODERATE PAIN LEVEL 4-6; Start 01/15/17 at 16:30 Docusate Sodium (Colace) 100 mg Q12H PRN PO CONSTIPATION; Start 01/15/17 at 16: 30 Magnesium Hydroxide (Milk Of Mag) 30 ml DAILY PRN PO CONSTIPATION; Start at 16:30 Zolpidem Tartrate (Ambien) 5 mg QHS PRN PO SLEEP; Start 01/15/17 at 16:30 Aspirin (Halfprin) 81 mg DAILY PO Last administered on 01/17/17 09:02; Admin Dose 81 MG; Start 01/16/17 at 09:00 Losartan Potassium (Cozaar) 100 mg BID PO Last administered on 01/16/17 20:58 ; Admin Dose 100 MG; Start 01/15/17 at 21:00 Montelukast Sodium (Singulair) 10 mg QHS PO Last administered on 01/17/17 21: 53; Admin Dose 10 MG; Start 01/15/17 at 21:00 IV Flush (NS 10 ml) 10 ml PRN PRN IV IV PROTOCOL; Start 01/15/17 at 18:30 Miscellaneous Information 1 ea NOTE XX ; Start 01/15/17 at 19:00 Glucose (Glutose) 15 gm Q15M PRN PO DECREASED GLUCOSE; Start 01/15/17 at 19:00 Glucose (Glutose) 22.5 gm Q15M PRN PO DECREASED GLUCOSE; Start 01/15/17 at 19: 00 Dextrose (D50w Syringe) 25 ml Q15M PRN IV DECREASED GLUCOSE; Start 01/15/17 at 19:00 Dextrose (D50w Syringe) 50 ml Q15M PRN IV DECREASED GLUCOSE; Start 01/15/17 at 19:00 Glucagon (Glucagen) 1 mg Q15M PRN IM DECREASED GLUCOSE; Start 01/15/17 at 19:00 Glucose (Glutose) 15 gm Q15M PRN BUCCAL DECREASED GLUCOSE; Start 01/15/17 at 19 :00 Morphine Sulfate (morphine) 1 mg Q4H PRN IV pain moderate Last administered on 01/18/17 04:18; Admin Dose 1 MG; Start 01/15/17 at 20:00 Diagnostic Test (Pha) (Accu-Chek) 1 ea 02 XX ; Start 01/16/17 at 02:00 Clonidine (Catapres) 0.1 mg Q6H PRN PO BLOOD PRESSURE SBP>160 Last administered on 01/16/17 23:42; Admin Dose 0.1 MG; Start 01/15/17 at 20:30 Miscellaneous Information This patient jean baptiste... PRN PRN XX WOUND CARE; Start 01/15 at 22:00 Potassium Chloride/Dextrose/ Sod Cl (D5-1/2ns + KCl 20 Meq) 1,000 ml @ 70 mls/ hr [id number] IV Last administered on 01/18/17 00:27; Admin Dose 70 MLS/HR; Start 01/16/17 at 10:00 Collagenase (Santyl) 1 applic DAILY TOP Last administered on 01/17/17 09:02; Admin Dose 1 APPLIC; Start 01/16/17 at 21:00 Hydralazine HCl (Apresoline) 10 mg Q6 PRN IV ELEVATED BLOOD PRESSURE Last administered on 01/17/17 03:05; Admin Dose 10 MG; Start 01/17/17 at 03:00 Acetaminophen 650 mg 650 mg Q6H PRN [place] FEVER GREATER THAN 100.6 Last administered on 01/17/17 07:26; Admin Dose 650 MG; Start 01/17/17 at 07:00 Meropenem/Sodium Chloride (Merrem 1 Gm/50 ml (Pmx)) 50 ml @ 200 mls/hr Q8H IVPB Last administered on 01/18/17 03:20; Admin Dose 200 MLS/HR; Start at 10:00 Mupirocin (Bactroban) 1 applic BID TOP Last administered on 01/17/17 21:59; Admin Dose 1 APPLIC; Start 01/17/17 at 11:00 Enoxaparin Sodium (Lovenox) 65 mg Q12 SC Last administered on 01/17/17 21:55; Admin Dose 65 MG; Start 01/17/17 at 21:00 Insulin Human NPH (Humulin N) 10 unit BID SC Last administered on 01/18/17 08: 18; Admin Dose 10 UNIT; Start 01/18/17 at 09:00 ANTHONY WOODARD MD Jan 18, 2017 08:37
[2017-01-18] MEDS: ENOXAPARIN 100 MG/ML SYG SC SCH ×2 (08:56→20:51)
[2017-01-18] MEDS: LOSARTAN 50 MG TAB PO SCH ×2 (08:57→20:31)
[2017-01-18] MEDS: ASPIRIN (EC) 81 MG TAB PO SCH (08:57)
[2017-01-18] MEDS ORDERED: VANCOMYCIN IV PER PHARMACY XX SCH (09:00)
[2017-01-18] MEDS: MUPIROCIN 2% 22 GM OINT TOP SCH ×2 (09:00→20:52)
[2017-01-18] MEDS: COLLAGENASE 30 GM TUBE TOP SCH (09:12)
[2017-01-18 10:22] VITALS: PULSE 80
[2017-01-18] MEDS ORDERED: VANCOMYCIN 1.25 GM in SOD CHLORIDE 0.9% 250 ML IVPB SCH (12:00)
--- NOTE | 2017-01-18 12:40 | CONS ---
Date/Time of Note Date/Time of Note DATE: 01/18/17 TIME: 12:40 Assessment/Plan Assessment/Plan Additional Assessment/Plan [facility] INPATIENT CONSULTATION NOTE DATE OF SERVICE: 01/18/2017 PLACE OF SERVICE: [facility], second floor [facility] ASSESSMENT AND PLAN: A very-pleasant but unfortunate 81-year-old lady with multiple comorbidities including diabetes mellitus complicated by left heel decubitus ulcer as well as right below the knee amputation and paroxysmal atrial fibrillation, presenting with stage IV decubitus ulcer overlying her sacrum. There is also significant erythema and cellulitis of the perianal skin. This will require surgical debridement as well as evaluation for osteomyelitis. An MRI is a to complete the workup and the patient is already being scheduled for operative debridement. Perhaps not during this admission, but in the near future, the patient may also benefit from a laparoscopic diverting colostomy since she is essentially bedbound and will likely have difficulty keeping her perianal region and this decubitus ulcer area clean enough to allow it to heal. Patient also has altered mental status which could be related to underlying infectious etiology, and likely contributed by her age and possible dementia. Her severe malnutrition along with her other comorbidities make her a very poor surgical candidate for repair of this region unless we can optimize her nutritional state. Surgery is needed however given the extent of the stage IV decubitus ulcer on the possibility that this is driving her encephalopathy. Patient herself likely did not understand fully her clinical condition as I tried to explain to her and there was no family present in the room. I did discuss with team. With above assessment, I've recommended the followin. MRI of abdomen and pelvis with and without IV contrast 2. Possible need for orthopedic consultation if bone is involved 3. Surgical treatment of sacral decubitus ulcer in the next available elective time slot 4. Continuation of aggressive medical management for her medical comorbidities 5. Optimization of nutritional state 6. Clarification of CODE STATUS as well as expectations Thank you very much for having me involved in the care of this very pleasant patient and wonderful family. If you have any questions, please feel free to contact me at [phone]. Nature of presenting problem: High severity Please note that, given the multiple number of diagnoses or management options, the moderate to extensive amount and/or complexity of data needed to be reviewed , and high risk of complications and/or morbidity or mortality, this qualifies as moderate to high complexity type of decision-making. Disclaimer: Inadvertent spelling and grammatical errors are likely due to EHR/ dictation software use and do not reflect on the quality of delivered patient care. Also, please note that the electronic time recorded on this node does not necessarily reflect the actual time of the visit. Updated clinical summary: A very-pleasant but unfortunate 81-year-old lady with multiple comorbidities including diabetes mellitus complicated by left heel decubitus ulcer as well as right below the knee amputation and paroxysmal atrial fibrillation, presenting with stage IV decubitus ulcer overlying her sacrum. Comorbidities: 1. Diabetes mellitus complicated by left heel decubitus ulcer as well as right below the knee amputation 2. Paroxysmal atrial fibrillation 3. Stage IV decubitus ulcer overlying her sacrum 4. Left upper extremity DVT with superficial thrombosis 5. Hypertension 6. Aspiration pneumonia 7. Osteomyelitis at the posterior calcaneal margin, treated with meropenem and vancomycin 8. Severe malnutrition with prealbumin 3.1 after hydration and albumin of 1.5 9. Peripheral vascular disease 10. Dementia 11. BMI 27.5 CONSULTATION REQUESTED BY: Aliya Ochoa MD HISTORY OF PRESENT ILLNESS: Thank you very much Dr. Ochoa for the opportunity to participate in the care of this very pleasant but unfortunate 81-year-old lady with multiple comorbidities as mentioned above home we request a consult regarding management of her decubitus ulcer, which appears to be a stage IV type ulcer. She was initially admitted for aspiration pneumonia and has been found to have several other issues including DVT, leukocytosis, and encephalopathy. Very little history is available as to the duration of the decubitus ulcer, but review of her previous imaging including CT scan of abdomen and pelvis that was done roughly in the summer 2015 does not show presence of this type and depth of decubitus ulcer, indicating relatively recent development of this problem. Patient herself was not communicative enough to have meaningful communication with me during my visit, but she did say that she had abdominal pain that it was significant. ALLERGIES: Benzodiazepines and penicillin (unknown reaction) MEDICATIONS Documented in the electronic records and reviewed by me. Please see the electronic records for details, as well as details for inpatient medications which were also reviewed by me. SOCIAL HISTORY:-Tob;-ETOH;-IVDU FAMILY HISTORY: There are no significant medical, surgical or oncologic issues in the family as reported by the patient or reflected in the chart. REVIEW OF SYSTEMS: Other than mentioned above, there were no other pertinent positives or pertinent negatives in an otherwise complete 14 point review of systems. PHYSICAL EXAMINATION GENERAL: The patient appears to be a very pleasant lady of descent lying in bed, appearing stated age, and otherwise in no acute distress. BMI: 27.5 VITAL SIGNS: AVSS (please also see auto important data if available as well as the electronic records) HEENT: Normocephalic and atraumatic. Extraocular muscles and hearing are grossly intact bilaterally and symmetrically. Sclerae are nonicteric. Oral cavity is clear; oral mucosa appear to be pink and moist. Dentition: Poor with virtually no teeth. NECK: Supple. There is no lymphadenopathy or JVD. There is no submental, submandibular or supraclavicular lymphadenopathy. CHEST: Rises symmetrically with each breath; patient is breathing comfortably. There are no audible wheezes, rales or rhonchi on the gross exam. HEART: Pulse is irregular and palpable on the left wrist. Capillary refill is normal. Carotid pulses are palpable bilaterally and symmetrically in the neck. EXTREMITIES: Lower extremities contain no pitting edema around the ankles bilaterally and symmetrically. ABDOMEN: Abdomen is soft, nontender and nondistended. No evidence of ascites, organomegaly, caput medusae, engorged subcutaneous veins, or other abnormalities. There are no peritoneal signs or guarding. Examination of the sacral area demonstrated irregular 5-8 cm in diameter decubitus ulcer that appeared to be stage IV with bone showing underneath. There is also significant amount of erythema of the skin in the perianal region but no obvious other abscess. SKIN: Appears to be pink and feels warm to touch. NEUROLOGIC: Patient was arousable with voice command and follows very simple commands such as opening the mouth. Otherwise noncommunicative. LABORATORY DATA: See below IMAGING: See electronic chart. Please note that I've personally reviewed all pertinent available images and I agree in general with their overall reported findings. Consultation Date/Type/Reason Admit Date/Time Jan 15, 2017 at 14:33 Social History Smoking Status: Never smoker Exam/Review of Systems Vital Signs Vitals Vital Signs Date Time Temp Pulse Resp B/P Pulse Ox O2 Delivery O2 Flow Rate FiO2 01/18/17 10:22 99.8 80 01/18/17 08:04 19 121/51 97 01/17/17 07:56 Nasal Cannula 2.0 Intake and Output 01/17/17 01/17/17 01/18/17 15:00 23:00 07:00 Intake Total 1170 ml 740 ml Output Total 250 ml 250 ml Balance 920 ml 490 ml Results Result Diagram: 01/18/17 0435 01/18/17 0435 Results 24 hrs Laboratory Tests Test 01/17/17 16:41 01/17/17 21:58 01/18/17 04:35 01/18/17 08:13 Bedside Glucose 129 99 116 White Blood Count 22.2 H Red Blood Count 3.56 L Hemoglobin 9.7 L Hematocrit 30.2 L Mean Corpuscular Volume 84.8 Mean Corpuscular Hemoglobin 27.2 L Mean Corpuscular Hemoglobin Concent 32.1 Red Cell Distribution Width 15.9 H Platelet Count 294 Mean Platelet Volume 10.2 Neutrophils % 71.5 Lymphocytes % 17.5 Monocytes % 6.8 Eosinophils % 2.3 Basophils % 0.4 Nucleated Red Blood Cells % 0.0 Neutrophils # (Manual) 15.9 H Lymphocytes # 3.9 H Monocytes # 1.5 H Eosinophils # 0.5 Basophils # 0.1 Nucleated Red Blood Cells # 0.0 Sodium Level 143 Potassium Level 3.5 Chloride Level 115 H Carbon Dioxide Level 19 L Anion Gap 13 Blood Urea Nitrogen 8 Creatinine 0.51 Glucose Level 238 H Calcium Level 5.2 *L Iron Level < 10 L Total Iron Binding Capacity 133 L Percent Iron Saturation Total Bilirubin 0.2 Direct Bilirubin 0.00 Indirect Bilirubin 0.2 Aspartate Amino Transf (AST/SGOT) 26 Alanine Aminotransferase (ALT/SGPT) 38 Alkaline Phosphatase 65 Total Protein 4.1 #L Albumin 1.5 L Globulin 2.60 Albumin/Globulin Ratio 0.57 Prealbumin 3.1 L Thyroid Stimulating Hormone (TSH) 3.600 Hepatitis B Surface Antigen NEGATIVE Hepatitis B Core Total Antibody NEGATIVE Hepatitis C Antibody NEGATIVE Test 01/18/17 11:38 Bedside Glucose 139 Medications Medications Current Medications Ondansetron HCl (Zofran Inj) 4 mg Q6H PRN IV NAUSEA AND/OR VOMITING; Start at 16:30 Acetaminophen (Tylenol Tab) 650 mg Q6H PRN PO PAIN LEVEL 1-3 OR FEVER Last administered on 01/17/17t 06:40; Admin Dose 650 MG; Start 01/15/17 at 16:30 Acetaminophen/ Hydrocodone Bitart ([place] (5/325)) 1 tab Q6H PRN PO MODERATE PAIN LEVEL 4-6; Start 01/15/17 at 16:30 Docusate Sodium (Colace) 100 mg Q12H PRN PO CONSTIPATION; Start 01/15/17 at 16: 30 Magnesium Hydroxide (Milk Of Mag) 30 ml DAILY PRN PO CONSTIPATION; Start at 16:30 Zolpidem Tartrate (Ambien) 5 mg QHS PRN PO SLEEP; Start 01/15/17 at 16:30 Aspirin (Halfprin) 81 mg DAILY PO Last administered on 01/18/17 08:57; Admin Dose 81 MG; Start 01/16/17 at 09:00 Losartan Potassium (Cozaar) 100 mg BID PO Last administered on 01/18/17 08:57 ; Admin Dose 100 MG; Start 01/15/17 at 21:00 Montelukast Sodium (Singulair) 10 mg QHS PO Last administered on 01/17/17 21: 53; Admin Dose 10 MG; Start 01/15/17 at 21:00 IV Flush (NS 10 ml) 10 ml PRN PRN IV IV PROTOCOL; Start 01/15/17 at 18:30 Miscellaneous Information 1 ea NOTE XX ; Start 01/15/17 at 19:00 Glucose (Glutose) 15 gm Q15M PRN PO DECREASED GLUCOSE; Start 01/15/17 at 19:00 Glucose (Glutose) 22.5 gm Q15M PRN PO DECREASED GLUCOSE; Start 01/15/17 at 19: 00 Dextrose (D50w Syringe) 25 ml Q15M PRN IV DECREASED GLUCOSE; Start 01/15/17 at 19:00 Dextrose (D50w Syringe) 50 ml Q15M PRN IV DECREASED GLUCOSE; Start 01/15/17 at 19:00 Glucagon (Glucagen) 1 mg Q15M PRN IM DECREASED GLUCOSE; Start 01/15/17 at 19:00 Glucose (Glutose) 15 gm Q15M PRN BUCCAL DECREASED GLUCOSE; Start 01/15/17 at 19 :00 Morphine Sulfate (morphine) 1 mg Q4H PRN IV pain moderate Last administered on 01/18/17 04:18; Admin Dose 1 MG; Start 01/15/17 at 20:00 Diagnostic Test (Pha) (Accu-Chek) 1 ea 02 XX ; Start 01/16/17 at 02:00 Clonidine (Catapres) 0.1 mg Q6H PRN PO BLOOD PRESSURE SBP>160 Last administered on 01/16/17 23:42; Admin Dose 0.1 MG; Start 01/15/17 at 20:30 Miscellaneous Information This patient jean baptiste... PRN PRN XX WOUND CARE; Start 01/15 at 22:00 Potassium Chloride/Dextrose/ Sod Cl (D5-1/2ns + KCl 20 Meq) 1,000 ml @ 70 mls/ hr [id number] IV Last administered on 01/18/17 00:27; Admin Dose 70 MLS/HR; Start 01/16/17 at 10:00 Collagenase (Santyl) 1 applic DAILY TOP Last administered on 01/18/17 09:12; Admin Dose 1 APPLIC; Start 01/16/17 at 21:00 Hydralazine HCl (Apresoline) 10 mg Q6 PRN IV ELEVATED BLOOD PRESSURE Last administered on 01/17/17 03:05; Admin Dose 10 MG; Start 01/17/17 at 03:00 Acetaminophen 650 mg 650 mg Q6H PRN SC FEVER GREATER THAN 100.6 Last administered on 01/17/17 07:26; Admin Dose 650 MG; Start 01/17/17 at 07:00 Meropenem/Sodium Chloride (Merrem 1 Gm/50 ml (Pmx)) 50 ml @ 200 mls/hr Q8H IVPB Last administered on 01/18/17 10:34; Admin Dose 200 MLS/HR; Start at 10:00 Mupirocin (Bactroban) 1 applic BID TOP Last administered on 01/18/17 09:00; Admin Dose 1 APPLIC; Start 01/17/17 at 11:00 Enoxaparin Sodium (Lovenox) 65 mg Q12 SC Last administered on 01/18/17 08:56; Admin Dose 65 MG; Start 01/17/17 at 21:00 Insulin Human NPH 10 unit 10 unit BID SC Last administered on 01/18/17 08:18; Admin Dose 10 UNIT; Start 01/18/17 at 09:00 Vancomycin HCl/ Sodium Chloride (Vancocin/NS) 250 ml @ 83.333 mls/ hr Q36H IVPB ; Start 01/18/17 at 12:00 OMAR HINOJOSA M.D. Jan 18, 2017 12:40
[2017-01-18 14:15] VITALS: BP 98/49; RESP 20
[2017-01-18] MEDS: FERROUS SULFATE (SR) 142 MG TAB PO SCH (14:30)
[2017-01-18] MEDS: CALCIUM CARBONATE 500 MG CHEW TAB PO SCH ×2 (14:30→20:51)
--- NOTE | 2017-01-18 16:32 | PN ---
Date/Time of Note Date/Time of Note DATE: 01/18/17 TIME: 16:27 Assessment/Plan VTE Prophylaxis VTE Prophylaxis Intervention: LMWH Lines/Catheters IV Catheter Type (from Nrsg): PICC Line Central line still needed: Yes Urinary Cath still in place: Yes Reason Cath still needed: other (indicate) Assessment/Plan Assessment/Plan sacral stage IV decub, growing proteus and GNR. on merrem, being treated by ID. had surg eval and plans to debride and eval for osteo. 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 h/o left dvt of UE. on lovenox. will get repeat mary to determine status Subjective 24 Hr Interval Summary Free Text/Dictation sedated after medicated for ulcer probe. wbc still high, had surg consult Exam/Review of Systems Vital Signs Vitals Vital Signs Date Time Temp Pulse Resp B/P Pulse Ox O2 Delivery O2 Flow Rate FiO2 01/18/17 14:15 99.8 84 20 98/49 98 01/18/17 08:20 Nasal Cannula 2.0 Intake and Output 01/17/17 01/17/17 01/18/17 15:00 23:00 07:00 Intake Total 1170 ml 740 ml Output Total 250 ml 250 ml Balance 920 ml 490 ml Results Result Diagram: 01/18/17 0435 01/18/17 0435 Results 24 hrs Laboratory Tests Test 01/17/17 16:41 01/17/17 21:58 01/18/17 04:35 01/18/17 08:13 Bedside Glucose 129 99 116 White Blood Count 22.2 H Red Blood Count 3.56 L Hemoglobin 9.7 L Hematocrit 30.2 L Mean Corpuscular Volume 84.8 Mean Corpuscular Hemoglobin 27.2 L Mean Corpuscular Hemoglobin Concent 32.1 Red Cell Distribution Width 15.9 H Platelet Count 294 Mean Platelet Volume 10.2 Neutrophils % 71.5 Lymphocytes % 17.5 Monocytes % 6.8 Eosinophils % 2.3 Basophils % 0.4 Nucleated Red Blood Cells % 0.0 Neutrophils # (Manual) 15.9 H Lymphocytes # 3.9 H Monocytes # 1.5 H Eosinophils # 0.5 Basophils # 0.1 Nucleated Red Blood Cells # 0.0 Sodium Level 143 Potassium Level 3.5 Chloride Level 115 H Carbon Dioxide Level 19 L Anion Gap 13 Blood Urea Nitrogen 8 Creatinine 0.51 Glucose Level 238 H Calcium Level 5.2 *L Iron Level < 10 L Total Iron Binding Capacity 133 L Percent Iron Saturation Total Bilirubin 0.2 Direct Bilirubin 0.00 Indirect Bilirubin 0.2 Aspartate Amino Transf (AST/SGOT) 26 Alanine Aminotransferase (ALT/SGPT) 38 Alkaline Phosphatase 65 Total Protein 4.1 #L Albumin 1.5 L Globulin 2.60 Albumin/Globulin Ratio 0.57 Prealbumin 3.1 L Thyroid Stimulating Hormone (TSH) 3.600 Hepatitis B Surface Antigen NEGATIVE Hepatitis B Core Total Antibody NEGATIVE Hepatitis C Antibody NEGATIVE Test 01/18/17 11:38 Bedside Glucose 139 Medications Medications Current Medications Ondansetron HCl (Zofran Inj) 4 mg Q6H PRN IV NAUSEA AND/OR VOMITING; Start at 16:30 Acetaminophen (Tylenol Tab) 650 mg Q6H PRN PO PAIN LEVEL 1-3 OR FEVER Last administered on 01/17/17 06:40; Admin Dose 650 MG; Start 01/15/17 at 16:30 Acetaminophen/ Hydrocodone Bitart ([place] (5/325)) 1 tab Q6H PRN PO MODERATE PAIN LEVEL 4-6; Start 01/15/17 at 16:30 Docusate Sodium (Colace) 100 mg Q12H PRN PO CONSTIPATION; Start 01/15/17 at 16: 30 Magnesium Hydroxide (Milk Of Mag) 30 ml DAILY PRN PO CONSTIPATION; Start at 16:30 Zolpidem Tartrate (Ambien) 5 mg QHS PRN PO SLEEP; Start 01/15/17 at 16:30 Aspirin (Halfprin) 81 mg DAILY PO Last administered on 01/18/17 08:57; Admin Dose 81 MG; Start 01/16/17 at 09:00 Losartan Potassium (Cozaar) 100 mg BID PO Last administered on 01/18/17 08:57 ; Admin Dose 100 MG; Start 01/15/17 at 21:00 Montelukast Sodium (Singulair) 10 mg QHS PO Last administered on 01/17/17 21: 53; Admin Dose 10 MG; Start 01/15/17 at 21:00 IV Flush (NS 10 ml) 10 ml PRN PRN IV IV PROTOCOL; Start 01/15/17 at 18:30 Miscellaneous Information 1 ea NOTE XX ; Start 01/15/17 at 19:00 Glucose (Glutose) 15 gm Q15M PRN PO DECREASED GLUCOSE; Start 01/15/17 at 19:00 Glucose (Glutose) 22.5 gm Q15M PRN PO DECREASED GLUCOSE; Start 01/15/17 at 19: 00 Dextrose (D50w Syringe) 25 ml Q15M PRN IV DECREASED GLUCOSE; Start 01/15/17 at 19:00 Dextrose (D50w Syringe) 50 ml Q15M PRN IV DECREASED GLUCOSE; Start 01/15/17 at 19:00 Glucagon (Glucagen) 1 mg Q15M PRN IM DECREASED GLUCOSE; Start 01/15/17 at 19:00 Glucose (Glutose) 15 gm Q15M PRN BUCCAL DECREASED GLUCOSE; Start 01/15/17 at 19 :00 Morphine Sulfate (morphine) 1 mg Q4H PRN IV pain moderate Last administered on 01/18/17 12:59; Admin Dose 1 MG; Start 01/15/17 at 20:00 Diagnostic Test (Pha) (Accu-Chek) 1 ea 02 XX ; Start 01/16/17 at 02:00 Clonidine (Catapres) 0.1 mg Q6H PRN PO BLOOD PRESSURE SBP>160 Last administered on 01/16/17 23:42; Admin Dose 0.1 MG; Start 01/15/17 at 20:30 Miscellaneous Information This patient jean baptiste... PRN PRN XX WOUND CARE; Start 01/15 at 22:00 Potassium Chloride/Dextrose/ Sod Cl (D5-1/2ns + KCl 20 Meq) 1,000 ml @ 70 mls/ hr [id number] IV Last administered on 01/18/17 00:27; Admin Dose 70 MLS/HR; Start 01/16/17 at 10:00 Collagenase (Santyl) 1 applic DAILY TOP Last administered on 01/18/17 09:12; Admin Dose 1 APPLIC; Start 01/16/17 at 21:00 Hydralazine HCl (Apresoline) 10 mg Q6 PRN IV ELEVATED BLOOD PRESSURE Last administered on 01/17/17 03:05; Admin Dose 10 MG; Start 01/17/17 at 03:00 Acetaminophen 650 mg 650 mg Q6H PRN CO FEVER GREATER THAN 100.6 Last administered on 01/17/17 07:26; Admin Dose 650 MG; Start 01/17/17 at 07:00 Meropenem/Sodium Chloride (Merrem 1 Gm/50 ml (Pmx)) 50 ml @ 200 mls/hr Q8H IVPB Last administered on 01/18/17 10:34; Admin Dose 200 MLS/HR; Start at 10:00 Mupirocin (Bactroban) 1 applic BID TOP Last administered on 01/18/17 09:00; Admin Dose 1 APPLIC; Start 01/17/17 at 11:00 Enoxaparin Sodium (Lovenox) 65 mg Q12 SC Last administered on 01/18/17 08:56; Admin Dose 65 MG; Start 01/17/17 at 21:00 Insulin Human NPH 10 unit 10 unit BID SC Last administered on 01/18/17 08:18; Admin Dose 10 UNIT; Start 01/18/17 at 09:00 Vancomycin HCl (Vancocin) 250 ml @ 125 mls/hr Q24H IVPB ; Start 01/19/17 at 13: 00 Ferrous Sulfate (Slow Fe) 142 mg DAILY PO ; Start 01/18/17 at 14:30 Calcium Carbonate (Tums) 500 mg BID PO ; Start 01/18/17 at 14:30 RIDGE MATTHEWS MD Jan 18, 2017 16:32
[2017-01-18] MEDS ORDERED: CALCIUM GLUCONATE 10% 1 GM in SOD CHLORIDE 0.9% 100 ML IVPB ONE (20:00)
[2017-01-18 20:24] VITALS: BP 105/46; RESP 18
[2017-01-18] MEDS: MONTELUKAST 10 MG TAB PO SCH ×2 (20:30→20:51)
[2017-01-18] MEDS: NYSTATIN 30 GM POWDER BTL TOP SCH (20:30)
[2017-01-19] VITALS (14 sets, daily range): BP systolic 109–162; BP diastolic 37–71; PULSE 70–78; RESP 11–19
[2017-01-19] MEDS: SODIUM HYPOCHLORITE 0.125% 473 ML BTL IRR SCH ×3 (01:46→21:09)
[2017-01-19] MEDS: MEROPENEM 1 GM/50ML(PMX) 50 ML IVPB SCH ×3 (01:46→22:40)
[2017-01-19] MEDS: ACCU-CHEK XX SCH (01:50)
[2017-01-19 05:30] LABS: BASOPHIL # 0.1 10^3/ul (0.0-0.1); BASOPHILS % 0.4 % (0.0-2.0); EOSINOPHILS # 0.5 10^3/ul (0.0-0.5); EOSINOPHILS % 2.4 % (0.0-7.0); HEMATOCRIT 30.9 % (37.0-47.0); HEMOGLOBIN 9.8 g/dl (12.0-16.0); LYMPHOCYTES # 3.4 10^3/ul (0.8-2.9); LYMPHOCYTES % 17.5 % (15.0-51.0); MEAN CORPUSCULAR HEMOGLOBIN 27.3 pg (29.0-33.0); MEAN CORPUSCULAR HGB CONC 31.7 g/dl (32.0-37.0); MEAN CORPUSCULAR VOLUME 86.1 fl (82.0-101.0); MEAN PLATELET VOLUME 10.2 fl (7.4-10.4); MONOCYTE # 1.5 10^3/ul (0.3-0.9); MONOCYTES % 7.6 % (0.0-11.0); NEUTROPHILS % 70.4 % (39.0-77.0); PLATELET COUNT 258 10^3/UL (140-415); RED BLOOD COUNT 3.59 10^6/ul (4.20-5.40); RED CELL DISTRIBUTION WIDTH 15.6 % (11.5-14.5); WHITE BLOOD COUNT 19.6 10^3/ul (4.8-10.8)
[2017-01-19 05:50] LABS: CALCIUM 8.1 mg/dl (8.4-10.2); CREATININE 0.64 mg/dl (0.44-1.00); POTASSIUM 3.5 mmol/L (3.5-5.1)
--- NOTE | 2017-01-19 06:52 | CONS ---
Date/Time of Note Date/Time of Note DATE: 01/19/17 TIME: 06:50 Assessment/Plan Assessment/Plan Chief Complaint/Hosp Course 1) progressive sacral ulcer, surrounding cellulitis await surgical input and debridement, consider MRI depending upon surgical eval wound cx to be obtained continue with vanco/merrem check ESR, CRP in a.m. 01/17 - proteus and another GNR in wound cx continue with merrem/vanco esr and CRP are moderately elevated mrsa to nares to start bactroban await surgical input pt is more awake today and able to answer some questions in czech 01/18 - pt persistence of fever and elevated wbc is either due to an undrained abscess or inadequate antibiotics await wound care eval and surgical debridement will order MRI scan if no wound care is delivered by tomorrow wound cx has proteus, GNR and enterococcus continue with vanco/merrem at present 01/19 - wound cx are all sensitive to current antibiotics of vanco/merrem MRI of pelvis/abd was done but results not available pt to get debridement later this am. 2) L heal ulcer with eschar no surrounding redness noted on picture 3) PVD 4) recent hx of LUE DVT 5) HTN Problems: Consultation Date/Type/Reason Admit Date/Time Jan 15, 2017 at 14:33 Initial Consult Date 01/16/17 Type of Consultation: ID [id number] HR Interval Summary Free Text/Dictation spoke to caregiver informed her that in order for pt's wound to heal she will need either TPN or G- tube placement no new problems Exam/Review of Systems Vital Signs Vitals Vital Signs Date Time Temp Pulse Resp B/P Pulse Ox O2 Delivery O2 Flow Rate FiO2 01/19/17 03:22 98.0 77 16 109/52 96 01/18/17 08:20 Nasal Cannula 2.0 Intake and Output 01/18/17 01/18/17 01/19/17 15:00 23:00 07:00 Intake Total 50 ml 1110 ml 50 ml Output Total 650 ml 300 ml Balance 50 ml 460 ml -250 ml Exam Constitutional: other (asleep) Respiratory: clear to auscultation Cardiovascular: regular rate and rhythm Gastrointestinal: non-tender, soft Results Result Diagram: 01/19/17 0435 01/19/17 0435 Results 24 hrs Laboratory Tests Test 01/18/17 08:13 01/18/17 11:38 01/18/17 17:16 01/18/17 18:50 Bedside Glucose 116 139 191 Ionized Calcium (Measured) 1.1 Test 01/18/17 20:33 01/19/17 01:50 01/19/17 04:35 Bedside Glucose 119 114 White Blood Count 19.6 H Red Blood Count 3.59 L Hemoglobin 9.8 L Hematocrit 30.9 L Mean Corpuscular Volume 86.1 Mean Corpuscular Hemoglobin 27.3 L Mean Corpuscular Hemoglobin Concent 31.7 L Red Cell Distribution Width 15.6 H Platelet Count 258 Mean Platelet Volume 10.2 Neutrophils % 70.4 Lymphocytes % 17.5 Monocytes % 7.6 Eosinophils % 2.4 Basophils % 0.4 Nucleated Red Blood Cells % 0.0 Neutrophils # (Manual) 13.8 H Lymphocytes # 3.4 H Monocytes # 1.5 H Eosinophils # 0.5 Basophils # 0.1 Nucleated Red Blood Cells # 0.0 Sodium Level 141 Potassium Level 3.5 Chloride Level 104 # Carbon Dioxide Level 28 Anion Gap 13 Blood Urea Nitrogen 9 Creatinine 0.64 Glucose Level 103 # Calcium Level 8.1 L Medications Medications Current Medications Ondansetron HCl (Zofran Inj) 4 mg Q6H PRN IV NAUSEA AND/OR VOMITING; Start at 16:30 Acetaminophen (Tylenol Tab) 650 mg Q6H PRN PO PAIN LEVEL 1-3 OR FEVER Last administered on 01/17/17 06:40; Admin Dose 650 MG; Start 01/15/17 at 16:30 Acetaminophen/ Hydrocodone Bitart ([place] (5/325)) 1 tab Q6H PRN PO MODERATE PAIN LEVEL 4-6; Start 01/15/17 at 16:30 Docusate Sodium (Colace) 100 mg Q12H PRN PO CONSTIPATION; Start 01/15/17 at 16: 30 Magnesium Hydroxide (Milk Of Mag) 30 ml DAILY PRN PO CONSTIPATION; Start at 16:30 Zolpidem Tartrate (Ambien) 5 mg QHS PRN PO SLEEP; Start 01/15/17 at 16:30 Aspirin (Halfprin) 81 mg DAILY PO Last administered on 01/18/17 08:57; Admin Dose 81 MG; Start 01/16/17 at 09:00 Losartan Potassium (Cozaar) 100 mg BID PO Last administered on 01/18/17 08:57 ; Admin Dose 100 MG; Start 01/15/17 at 21:00 Montelukast Sodium (Singulair) 10 mg QHS PO Last administered on 01/17/17 21: 53; Admin Dose 10 MG; Start 01/15/17 at 21:00 IV Flush (NS 10 ml) 10 ml PRN PRN IV IV PROTOCOL; Start 01/15/17 at 18:30 Miscellaneous Information 1 ea NOTE XX ; Start 01/15/17 at 19:00 Glucose (Glutose) 15 gm Q15M PRN PO DECREASED GLUCOSE; Start 01/15/17 at 19:00 Glucose (Glutose) 22.5 gm Q15M PRN PO DECREASED GLUCOSE; Start 01/15/17 at 19: 00 Dextrose (D50w Syringe) 25 ml Q15M PRN IV DECREASED GLUCOSE; Start 01/15/17 at 19:00 Dextrose (D50w Syringe) 50 ml Q15M PRN IV DECREASED GLUCOSE; Start 01/15/17 at 19:00 Glucagon (Glucagen) 1 mg Q15M PRN IM DECREASED GLUCOSE; Start 01/15/17 at 19:00 Glucose (Glutose) 15 gm Q15M PRN BUCCAL DECREASED GLUCOSE; Start 01/15/17 at 19 :00 Morphine Sulfate (morphine) 1 mg Q4H PRN IV pain moderate Last administered on 01/18/17 22:40; Admin Dose 1 MG; Start 01/15/17 at 20:00 Diagnostic Test (Pha) (Accu-Chek) 1 ea 02 XX Last administered on 01/19/17 01: 50; Admin Dose 1 EA; Start 01/16/17 at 02:00 Clonidine (Catapres) 0.1 mg Q6H PRN PO BLOOD PRESSURE SBP>160 Last administered on 01/16/17 23:42; Admin Dose 0.1 MG; Start 01/15/17 at 20:30 Miscellaneous Information This patient jean baptiste... PRN PRN XX WOUND CARE; Start 01/15 at 22:00 Potassium Chloride/Dextrose/ Sod Cl (D5-1/2ns + KCl 20 Meq) 1,000 ml @ 70 mls/ hr [id number] IV Last administered on 01/18/17 20:29; Admin Dose 70 MLS/HR; Start 01/16/17 at 10:00 Collagenase (Santyl) 1 applic DAILY TOP Last administered on 01/18/17 09:12; Admin Dose 1 APPLIC; Start 01/16/17 at 21:00 Hydralazine HCl (Apresoline) 10 mg Q6 PRN IV ELEVATED BLOOD PRESSURE Last administered on 01/17/17 03:05; Admin Dose 10 MG; Start 01/17/17 at 03:00 Acetaminophen 650 mg 650 mg Q6H PRN [place] FEVER GREATER THAN 100.6 Last administered on 01/17/17 07:26; Admin Dose 650 MG; Start 01/17/17 at 07:00 Meropenem/Sodium Chloride (Merrem 1 Gm/50 ml (Pmx)) 50 ml @ 200 mls/hr Q8H IVPB Last administered on 01/19/17 01:46; Admin Dose 200 MLS/HR; Start at 10:00 Mupirocin (Bactroban) 1 applic BID TOP Last administered on 01/18/17 20:52; Admin Dose 1 APPLIC; Start 01/17/17 at 11:00 Enoxaparin Sodium (Lovenox) 65 mg Q12 SC Last administered on 01/18/17 20:51; Admin Dose 65 MG; Start 01/17/17 at 21:00 Insulin Human NPH 10 unit 10 unit BID SC Last administered on 01/18/17 08:18; Admin Dose 10 UNIT; Start 01/18/17 at 09:00 Vancomycin HCl (Vancocin) 250 ml @ 125 mls/hr Q24H IVPB ; Start 01/19/17 at 13: 00 Ferrous Sulfate (Slow Fe) 142 mg DAILY PO ; Start 01/18/17 at 14:30 Calcium Carbonate (Tums) 500 mg BID PO ; Start 01/18/17 at 14:30 Nystatin (Nystatin Powder) 1 applic BID TOP Last administered on 01/18/17 20: 30; Admin Dose 1 APPLIC; Start 01/18/17 at 21:00 Sodium Hypochlorite ([place] (1/4 Strength)) 1 applic BID IRR Last administered on 01/19/17 01:46; Admin Dose 1 APPLIC; Start 01/18/17 at 21:00 ANTHONY WOODARD MD Jan 19, 2017 06:52
[2017-01-19] MEDS: INSULIN ASPART [NOVOLOG] 3 ML PEN SC SCH ×7 (07:35→21:05)
[2017-01-19] MEDS: FERROUS SULFATE (SR) 142 MG TAB PO SCH (08:53)
[2017-01-19] MEDS: ASPIRIN (EC) 81 MG TAB PO SCH (08:53)
[2017-01-19] MEDS: CALCIUM CARBONATE 500 MG CHEW TAB PO SCH ×2 (08:54→21:02)
[2017-01-19] MEDS: ENOXAPARIN 100 MG/ML SYG SC SCH ×2 (08:54→21:06)
[2017-01-19] MEDS: LOSARTAN 50 MG TAB PO SCH ×2 (08:55→21:03)
[2017-01-19] MEDS: D5W-0.45 NACL + KCL 20 MEQ 1,000 ML IV SCH ×3 (08:56→21:34)
[2017-01-19] MEDS: COLLAGENASE 30 GM TUBE TOP SCH (09:00)
[2017-01-19] MEDS: NPH, HUMAN INSULIN ISOPHANE 3ML VIAL SC SCH ×2 (09:00→21:04)
[2017-01-19] MEDS: NYSTATIN 30 GM POWDER BTL TOP SCH ×2 (09:05→21:10)
[2017-01-19] MEDS: morphine 2 MG INJ IV PRN (09:05)
[2017-01-19] MEDS: MUPIROCIN 2% 22 GM OINT TOP SCH ×2 (09:06→21:09)
[2017-01-19] MEDS ORDERED: GLYCOPYRROLATE 1 MG INJ ONE (09:44)
[2017-01-19] MEDS ORDERED: PROPOFOL 20 ML ONE (09:44)
[2017-01-19] MEDS ORDERED: MIDAZOLAM 1 MG/ML 2 ML INJ ONE ×2 (09:44→10:53)
[2017-01-19] MEDS ORDERED: ROCURONIUM 50 MG INJ ONE (09:44)
[2017-01-19] MEDS ORDERED: NEOSTIGMINE 3 MG/3 ML SYRINGE ONE (09:44)
[2017-01-19] MEDS ORDERED: LIDOCAINE 2% (SDV) 5 ML INJ ONE (09:44)
[2017-01-19] MEDS ORDERED: FENTAnyl 50 MCG/ML VIAL ONE (09:44)
[2017-01-19] MEDS ORDERED: SUGAMMADEX SODIUM 200 MG/2 ML VIAL IV ONE (09:47)
--- NOTE | 2017-01-19 09:47 | HPN ---
Date/Time of Note Date/Time of Note DATE: 01/19/17 TIME: 09:47 Interval H&P Admission Note Pt. seen H&P reviewed: No system changes Pt. seen H&P reviewed. No system changes (I attest that I have seen and examined the patient and reviewed the operation in detail, as well as its risks , benefits and alternatives of the operation). I attest that I have seen and examined the patient and reviewed in detail the operation, and its associated risks, benefits and alternative. I have answered all the patient's questions to the best of my ability and the patient wishes to proceed. Please refer to rest of electronic medical record for additional updates. OMAR HINOJOSA M.D. Jan 19, 2017 09:47
[2017-01-19] MEDS ORDERED: DEXAMETHASONE 4 MG/ML 1 ML INJ ONE (09:49)
[2017-01-19] MEDS ORDERED: ONDANSETRON 4 MG INJ ONE (09:49)
[2017-01-19] MEDS ORDERED: EPHEDrine SULFATE 50 MG/5 ML SYG IV PRN (11:30)
[2017-01-19] MEDS ORDERED: ATROPINE 1 MG/10 ML SYRINGE IV PRN (11:30)
[2017-01-19] MEDS ORDERED: OXYCODONE/ACETAMINOPHEN (5/325) TAB PO PRN ×2 (11:30)
[2017-01-19] MEDS ORDERED: morphine (1 MG/ML) 10ML SYRINGE IV PRN ×3 (11:30)
[2017-01-19] MEDS ORDERED: LABETALOL HCL 20MG INJ IV PRN (11:30)
[2017-01-19] MEDS ORDERED: ONDANSETRON 4 MG INJ IV PRN (11:30)
[2017-01-19] MEDS ORDERED: hydrALAzine 20 MG INJ IV PRN (11:30)
[2017-01-19] MEDS ORDERED: MEPERIDINE 25 MG INJ IV PRN (11:30)
[2017-01-19] MEDS ORDERED: FENTAnyl 50 MCG/ML VIAL IV PRN ×2 (11:30)
[2017-01-19] MEDS ORDERED: DIPHENHYDRAMINE 50 MG INJ IV PRN (11:30)
[2017-01-19] MEDS ORDERED: HYDROmorphONE (0.2 MG/ML) 10ML SYG IV PRN ×3 (11:30)
[2017-01-19] MEDS ORDERED: MIDAZOLAM 1 MG/ML 2 ML INJ IV PRN (11:30)
[2017-01-19] MEDS ORDERED: DOCUSATE SODIUM 100 MG CAP PO PRN (12:00)
[2017-01-19] MEDS ORDERED: HYDROCODONE/APAP (5/325) TAB PO PRN (12:00)
[2017-01-19] MEDS ORDERED: NA PHOSPHATE/BIPHOS 133 ML ENEMA PR PRN (12:00)
[2017-01-19] MEDS ORDERED: BISACODYL 10 MG SUPP PR PRN (12:00)
[2017-01-19] MEDS ORDERED: HYDROmorphONE 1 MG/ML SYG IV PRN (12:00)
--- NOTE | 2017-01-19 12:04 | OPR ---
Date/Time of Note Date/Time of Note DATE: 01/19/17 TIME: 11:49 Operative Report Operative\Procedure Findings [facility] INPATIENT OPERATIVE NOTE PLACE OF SERVICE: [facility] DATE OF SURGERY: 01/19/2017 PREOPERATIVE DIAGNOSIS: 1. 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 Diabetes mellitus complicated by left heel decubitus ulcer as well as right below the knee amputation 3. Paroxysmal atrial fibrillation 4. Left upper extremity DVT with superficial thrombosis 5. Hypertension 6. Aspiration pneumonia 7. Osteomyelitis at the posterior calcaneal margin, treated with meropenem and vancomycin 8. Severe malnutrition with prealbumin 3.1 after hydration and albumin of 1.5 9. Peripheral vascular disease 10. Dementia 11. BMI 27.5 POSTOPERATIVE DIAGNOSIS: 1. Infected stage IV sacral decubitus pressure ulcer with possible osteomyelitis of the coccyx 2. Diabetes mellitus complicated by left heel decubitus ulcer as well as right below the knee amputation 3. Paroxysmal atrial fibrillation 4. Left upper extremity DVT with superficial thrombosis 5. Hypertension 6. Aspiration pneumonia 7. Osteomyelitis at the posterior calcaneal margin, treated with meropenem and vancomycin 8. Severe malnutrition with prealbumin 3.1 after hydration and albumin of 1.5 9. Peripheral vascular disease 10. Dementia 11. BMI 27.5 OPERATION: 1. Excisional debridement with scissors of a 10 x 5 x 3.5 cm coccygeal and sacral decubitus ulcer and removal of 30 cm of tissue including small part of the coccyx bone (ostectomy, 1x1x1 cm) and down to muscle in the upper part of the ulcer area and application of 2 g of Micro Matrix paste SURGEON: Omar Hinojosa M.D. AUTOMATIC DRILLING MACHINE OPERATOR: None ANESTHESIA: General endotracheal tube anesthesia ANESTHESIOLOGIST: Ambar Buenrostro M.D. BRIEF SUMMARY: An otherwise uncomplicated excisional debridement with scissors of a 10 x 5 x 3.5 cm coccygeal and sacral decubitus ulcer and removal of 30 cm of tissue including small part of the coccyx bone (ostectomy, 1x1x1 cm) and down to muscle in the upper part of the ulcer area and application of 2 g of Micro Matrix paste was performed. Updated clinical summary: A very-pleasant but unfortunate 81-year-old lady with multiple comorbidities including diabetes mellitus complicated by left heel decubitus ulcer as well as right below the knee amputation and paroxysmal atrial fibrillation, presenting with stage IV decubitus ulcer overlying her sacrum. Comorbidities: 1. Diabetes mellitus complicated by left heel decubitus ulcer as well as right below the knee amputation 2. Paroxysmal atrial fibrillation 3. Stage IV decubitus ulcer overlying her sacrum 4. Left upper extremity DVT with superficial thrombosis 5. Hypertension 6. Aspiration pneumonia 7. Osteomyelitis at the posterior calcaneal margin, treated with meropenem and vancomycin 8. Severe malnutrition with prealbumin 3.1 after hydration and albumin of 1.5 9. Peripheral vascular disease 10. Dementia 11. BMI 27.5 BRIEF HISTORY: The patient is a very pleasant but unfortunate 81-year-old lady with multiple comorbidities including diabetes mellitus complicated by left heel decubitus ulcer as well as right below the knee amputation and paroxysmal atrial fibrillation, presenting with stage IV decubitus ulcer overlying her sacrum. Preoperative MRI of the pelvis did not show obvious evidence of osteomyelitis. Patient herself was not quite capable of giving consent for the operation due to encephalopathy and possible dementia. For this reason, I had multiple conversations with patient's son and patient's daughter and reviewed the operation in detail as well as the risks, benefits, alternatives, and expected outcomes of this operation. After careful consideration of all the risks, benefits, and alternatives, the patient and family appeared to understand those risks and wished to proceed with surgery. For a detailed report of my consultation with patient and family, please refer to my separate consultation note. STATEMENT OF THE INFORMED CONSENT: The patient and family appeared to understand the risks of the operation to include, but not be limited to risk of postoperative pain and scar tissue, possible infection or bleeding requiring other interventions such as opening the wound, placement of drainage catheters, or other operative interventions; possible injury to surrounding to structures including muscle, bone, nerves, vasculature, and other structures, possibly causing significant increase in morbidity and mortality and requiring multiple interventions including but not limited to, placement of drainage catheters, imaging studies, as well as operative interventions; possible other source of sepsis such as urinary tract infections or pneumonias, or other sources of potentially life threatening problems such as deep venous thrombus formation causing pulmonary embolism, myocardial arrhythmias and infarctions, and even . We specifically reviewed the fact that the patient has multiple medical problems and that she is a high risk for any surgical intervention, but that the proposed operation was the fastest and essentially the only intervention that could potentially improve her current condition since there is necrotic tissue and antimicrobial therapy will not likely fix that problem. After careful consideration of all their options, the patient and family appeared to understand and wished to proceed with surgery. DESCRIPTION OF PROCEDURE: After obtaining informed consent, the patient was brought into the operating room and was placed in a normal supine position, where successful general endotracheal tube anesthesia was performed. Intravenous access was already in place and intravenous antimicrobials had been appropriately chosen and dosed prior to the operation. The patient was placed in a right lateral decubitus position and her back area near the perineum sacrum was prepped and draped in the usual sterile fashion. We then called a surgical time-out where the patient's identification, date of , nature of the operation, allergies, presence of intravenous antimicrobials, presence of needed equipment, and any other concerns were reviewed and agreed upon by all members of the operating room team. We then started the operation by performing an excisional debridement of the sacral ulcer which was 10 x 5 x 3.5 cm in dimension using scissors and removing 5 x 6 x 1 cm (30 cm) necrotic tissue from the area which was sent to pathology for specimen. The debridement was taken down to nice healthy tissue that had a bleeding bed. Part of the excisional debridement was down to level of bone and a small portion (1x1x1 cm) of the coccyx on the left side was already broken off which we debrided out and sent along with the rest of the specimen. Rest of the bone appeared to be healthy. There was no evidence of leakage of CSF fluid. Part of the debridement also came down to the level of muscle that was overlying the sacrum in the more superior aspect of the ulcer bed. Adequate hemostasis was then achieved and the area was irrigated using [employer]ek Pulsavac with 3 L of normal saline. We again ensured adequate hemostasis prior to application of 2 g of ACEL Micro Matrix paste onto the bed and then packing the area with moist normal saline Kerlix gauze. Light dressing was then applied. At the end of the operation, both the sponge count and needle count were reportedly correct x2. The patient tolerated the procedure without any reported complications. ESTIMATED BLOOD LOSS: 5 mL BLOOD OR BLOOD PRODUCT TRANSFUSIONS: None to my knowledge. SPECIMENS: 30 cm of necrotic tissue that included small portion of the left side of the coccyx bone had fractured prior to the procedure COMPLICATIONS: None. DISPOSITION: Recovery area. Disclaimer: Inadvertent spelling and grammatical errors are likely due to EHR/ dictation software use and do not reflect on the quality of delivered patient care. Also, please note that the electronic time recorded on this node does not necessarily reflect the actual time of the visit. OMAR HINOJOSA M.D. Jan 19, 2017 12:01
[2017-01-19] MEDS ORDERED: HYDROmorphONE (0.2 MG/ML) 10ML SYG IV ONE (12:12)
--- NOTE | 2017-01-19 12:26 | PN ---
Date/Time of Note Date/Time of Note DATE: 01/19/17 TIME: 12:24 Assessment/Plan VTE Prophylaxis VTE Prophylaxis Intervention: LMWH Lines/Catheters IV Catheter Type (from Nrsg): PICC Line Central line still needed: Yes Urinary Cath still in place: Yes Reason Cath still needed: other (indicate) Assessment/Plan Assessment/Plan sacral stage IV decub, growing proteus and ecoli and s.aureus. on merrem/vanco , being treated by ID. 02/19 debrided and eval for osteo. poor appetite- may be due to pain meds. for the next 24 hours will cont and then try to extend time between doses and also decrease dose. 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 h/o left dvt of UE. on lovenox. mary already done still shows the dvt. 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 at last hospitalization pt was d/c snf on lovenox. is coumadin or other more appropriate. Subjective 24 Hr Interval Summary Free Text/Dictation no appetite again. may be due to getting morphine regularly. last few hospitalizations pt took no pain med. due to surg will need something. Exam/Review of Systems Vital Signs Vitals Vital Signs Date Time Temp Pulse Resp B/P Pulse Ox O2 Delivery O2 Flow Rate FiO2 01/19/17 11:59 76 15 149/62 97 Room Air 01/19/17 11:42 97.2 01/19/17 08:00 2.0 Intake and Output 01/18/17 01/18/17 01/19/17 15:00 23:00 07:00 Intake Total 50 ml 1110 ml 50 ml Output Total 650 ml 300 ml Balance 50 ml 460 ml -250 ml Results Result Diagram: 01/19/17 0435 01/19/17 0435 Results 24 hrs Laboratory Tests Test 01/18/17 17:16 01/18/17 18:50 01/18/17 20:33 01/19/17 01:50 Bedside Glucose 191 119 114 Ionized Calcium (Measured) 1.1 Test 01/19/17 04:35 01/19/17 08:52 White Blood Count 19.6 H Red Blood Count 3.59 L Hemoglobin 9.8 L Hematocrit 30.9 L Mean Corpuscular Volume 86.1 Mean Corpuscular Hemoglobin 27.3 L Mean Corpuscular Hemoglobin Concent 31.7 L Red Cell Distribution Width 15.6 H Platelet Count 258 Mean Platelet Volume 10.2 Neutrophils % 70.4 Lymphocytes % 17.5 Monocytes % 7.6 Eosinophils % 2.4 Basophils % 0.4 Nucleated Red Blood Cells % 0.0 Neutrophils # (Manual) 13.8 H Lymphocytes # 3.4 H Monocytes # 1.5 H Eosinophils # 0.5 Basophils # 0.1 Nucleated Red Blood Cells # 0.0 Sodium Level 141 Potassium Level 3.5 Chloride Level 104 # Carbon Dioxide Level 28 Anion Gap 13 Blood Urea Nitrogen 9 Creatinine 0.64 Glucose Level 103 # Calcium Level 8.1 L Bedside Glucose 117 Medications Medications Current Medications Ondansetron HCl (Zofran Inj) 4 mg Q6H PRN IV NAUSEA AND/OR VOMITING; Start at 16:30 Acetaminophen (Tylenol Tab) 650 mg Q6H PRN PO PAIN LEVEL 1-3 OR FEVER Last administered on 01/17/17 06:40; Admin Dose 650 MG; Start 01/15/17 at 16:30 Docusate Sodium (Colace) 100 mg Q12H PRN PO CONSTIPATION; Start 01/15/17 at 16: 30 Magnesium Hydroxide (Milk Of Mag) 30 ml DAILY PRN PO CONSTIPATION; Start at 16:30 Zolpidem Tartrate (Ambien) 5 mg QHS PRN PO SLEEP; Start 01/15/17 at 16:30 Aspirin (Halfprin) 81 mg DAILY PO Last administered on 01/18/17 08:57; Admin Dose 81 MG; Start 01/16/17 at 09:00 Losartan Potassium (Cozaar) 100 mg BID PO Last administered on 01/18/17 08:57 ; Admin Dose 100 MG; Start 01/15/17 at 21:00 Montelukast Sodium (Singulair) 10 mg QHS PO Last administered on 01/17/17 21: 53; Admin Dose 10 MG; Start 01/15/17 at 21:00 IV Flush (NS 10 ml) 10 ml PRN PRN IV IV PROTOCOL; Start 01/15/17 at 18:30 Miscellaneous Information 1 ea NOTE XX ; Start 01/15/17 at 19:00 Glucose (Glutose) 15 gm Q15M PRN PO DECREASED GLUCOSE; Start 01/15/17 at 19:00 Glucose (Glutose) 22.5 gm Q15M PRN PO DECREASED GLUCOSE; Start 01/15/17 at 19: 00 Dextrose (D50w Syringe) 25 ml Q15M PRN IV DECREASED GLUCOSE; Start 01/15/17 at 19:00 Dextrose (D50w Syringe) 50 ml Q15M PRN IV DECREASED GLUCOSE; Start 01/15/17 at 19:00 Glucagon (Glucagen) 1 mg Q15M PRN IM DECREASED GLUCOSE; Start 01/15/17 at 19:00 Glucose (Glutose) 15 gm Q15M PRN BUCCAL DECREASED GLUCOSE; Start 01/15/17 at 19 :00 Diagnostic Test (Pha) (Accu-Chek) 1 ea 02 XX Last administered on 01/19/17 01: 50; Admin Dose 1 EA; Start 01/16/17 at 02:00 Clonidine (Catapres) 0.1 mg Q6H PRN PO BLOOD PRESSURE SBP>160 Last administered on 01/16/17 23:42; Admin Dose 0.1 MG; Start 01/15/17 at 20:30 Miscellaneous Information This patient jean baptiste... PRN PRN XX WOUND CARE; Start 01/15 at 22:00 Potassium Chloride/Dextrose/ Sod Cl (D5-1/2ns + KCl 20 Meq) 1,000 ml @ 70 mls/ hr [id number] IV Last administered on 01/18/17 20:29; Admin Dose 70 MLS/HR; Start 01/16/17 at 10:00 Collagenase (Santyl) 1 applic DAILY TOP Last administered on 01/18/17 09:12; Admin Dose 1 APPLIC; Start 01/16/17 at 21:00 Hydralazine HCl (Apresoline) 10 mg Q6 PRN IV ELEVATED BLOOD PRESSURE Last administered on 01/17/17 03:05; Admin Dose 10 MG; Start 01/17/17 at 03:00 Acetaminophen 650 mg 650 mg Q6H PRN [place] FEVER GREATER THAN 100.6 Last administered on 01/17/17 07:26; Admin Dose 650 MG; Start 01/17/17 at 07:00 Meropenem/Sodium Chloride (Merrem 1 Gm/50 ml (Pmx)) 50 ml @ 200 mls/hr Q8H IVPB Last administered on 01/19/17 01:46; Admin Dose 200 MLS/HR; Start at 10:00 Mupirocin (Bactroban) 1 applic BID TOP Last administered on 01/19/17 09:06; Admin Dose 1 APPLIC; Start 01/17/17 at 11:00 Enoxaparin Sodium (Lovenox) 65 mg Q12 SC Last administered on 01/18/17 20:51; Admin Dose 65 MG; Start 01/17/17 at 21:00 Insulin Human NPH 10 unit 10 unit BID SC Last administered on 01/18/17 08:18; Admin Dose 10 UNIT; Start 01/18/17 at 09:00 Vancomycin HCl (Vancocin) 250 ml @ 125 mls/hr Q24H IVPB ; Start 01/19/17 at 13: 00 Ferrous Sulfate (Slow Fe) 142 mg DAILY PO ; Start 01/18/17 at 14:30 Calcium Carbonate (Tums) 500 mg BID PO ; Start 01/18/17 at 14:30 Nystatin (Nystatin Powder) 1 applic BID TOP Last administered on 01/19/17 09: 05; Admin Dose 1 APPLIC; Start 01/18/17 at 21:00 Sodium Hypochlorite 1 applic 1 applic BID IRR Last administered on 01/19/17 01 :46; Admin Dose 1 APPLIC; Start 01/18/17 at 21:00 Potassium Chloride/Dextrose/ Sod Cl (D5-1/2ns + KCl 20 Meq) 1,000 ml @ 100 mls/ hr Q10H IV ; Start 01/19/17 at 11:34; Status UNV Acetaminophen/ Hydrocodone Bitart ([place] (5/325)) 1 tab Q4H PRN PO PAIN LEVEL 4 -7; Start 01/19/17 at 12:00; Status UNV Acetaminophen/ Hydrocodone Bitart ([place] (5/325)) 2 tab Q4H PRN PO PAIN LEVEL 7 -10; Start 01/19/17 at 12:00; Status UNV Hydromorphone HCl (Dilaudid) 0.5 mg Q2 PRN IV PAIN; Start 01/19/17 at 12:00; Status UNV Hydromorphone HCl (Dilaudid) 1 mg Q2 PRN IV PAIN; Start 01/19/17 at 12:00; Status UNV Docusate Sodium (Colace) 100 mg BID PRN PO CONSTIPATION; Start 01/19/17 at 12: 00; Status UNV Bisacodyl (Dulcolax Supp) 10 mg BID PRN [place] CONSTIPATION; Start 01/19/17 at 12: 00; Status UNV Sodium Biphosphate/ Sodium Phosphate (Fleet Enema) 133 ml BID PRN [place] CONSTIPATION; Start 01/19/17 at 12:00; Status UNV Famotidine (Pepcid Iv) 20 mg DAILY IV ; Start 01/20/17 at 09:00; Status UNV RIDGE MATTHEWS MD Jan 19, 2017 12:26
--- NOTE | 2017-01-19 14:10 | RADRPT ---
PROCEDURE: MRI Abdomen and Pelvis without and with contrast. CLINICAL INDICATION: Sacral decubitus ulcer, pain TECHNIQUE: MRI of the abdomen and pelvis was performed. Patient was examined both before and foll owing the uncomplicated intravenous injection of 20 cc of Magnevist IV contrast. Images were reviewe d on a high-resolution PACS workstation. COMPARISON: CT, 11/12/2016 FINDINGS: MRI abdomen: There are mild pleural effusions, with associated bibasilar atelectasis. Gallbladder is surgically absent. There is mild dilatation of the biliary tree, with smooth tapering to the level of the ampu lla. Common duct maximal diameter is 12 mm. No evidence of choledocholithiasis is identified. The liver is normal in size and demonstrates severe steatosis. No enhancing hepatic mass is identified . Portal and hepatic veins remain patent. Pancreas, spleen, adrenal glands and kidneys are unremar kable. There is no obstructive uropathy. The stomach is partially collapsed, but appears grossly u nremarkable. There is no abdominal aortic aneurysm or dissection. No retroperitoneal or terese hepatis lymphadeno henry is identified. MRI pelvis: There is no bowel obstruction or evidence of abscess. No diverticulosis, diverticulitis or colitis is identified. Sullivan catheter balloon is within the urinary bladder. Uterus and adnexa are unremar kable. Nonspecific small amount of pelvic free fluid is present. No pelvic mass or lymphadenopathy is identified. Sacral decubitus ulcer is identified, apparently extending to the level of the posterior sacral jennifer ex. No gross evidence of abnormal T2 signal or enhancement is seen within the sacrum to indicate os teomyelitis. There is degenerative enthesopathy of the spine. No focal osseous lesion is identifie d. IMPRESSION: 1. There are mild bilateral pleural effusions, with associated bibasilar atelectasis. 2. Severe hepatic steatosis is noted. 3. Gallbladder is surgically absent. There is nonspecific mild dilatation of the biliary tree, wit hout evidence of obstructive common duct mass or choledocholithiasis. 4. Sullivan catheter balloon is within the urinary bladder. 5. Nonspecific small amount of pelvic free fluid is present. 6. Sacral decubitus ulcer is identified, apparently extending to the level of the posterior sacral cortex. No gross evidence of abnormal sacral T2 signal or enhancement is seen to indicate osteomyel itis. RPTAT: .Delta Rachel MD, MD Date Time Electronically viewed and signed by .Delta Rachel MD, MD on 01/19/2017 14:10 .R/
[2017-01-19] MEDS: FAMOTIDINE 20 MG INJ IV SCH (14:25)
[2017-01-19] MEDS: VANCOMYCIN 1 GM in NS 250 ML IVPB SCH (14:26)
[2017-01-19] MEDS: HYDROmorphONE 1 MG/ML SYG IV PRN ×3 (16:25→23:56)
--- NOTE | 2017-01-19 20:50 | CONS ---
Date/Time of Note Date/Time of Note DATE: 01/19/17 TIME: 20:49 Assessment/Plan Assessment/Plan Chief Complaint/Hosp Course 81 y/o F w/ DMII, R BKA and L heel chronic wound w/ osteo s/p abx now is admitted for infected sacral decubitus ulcer and found to have LUE DVT (L axillary vein) w/ associated PICC line on u/s but is asymptomatic Plan: -Appreciate medical/gen surg management -Recommend continuing therapeutic lovenox for LUE DVT w/ associated PICC and keep PICC access given need for abx. May consider switching site to RUE if need to but would still treat w/ anticoagulation. Pt was already receiving Lovenox for Afib so no additional anticoagulation would be needed. -Chronic L heel wound - Pt's family notes that she is adamant about no interventions to LLE and pt has outpatient [employer] following already. Pt likely has severe PVD including proximal aorto-iliac vessels, but this can be evaluated further as outpatient Thank you and please call with questions Problems: Consultation Date/Type/Reason Admit Date/Time Jan 15, 2017 at 14:33 Date of Consultation: Jan 19, 2017 Reason for Consultation LUE DVT Referring Provider: RIDGE MATTHEWS MD Hx of Present Illness 81 y/o F w/ DMII, R BKA and L heel chronic wound w/ osteo s/p abx now is admitted for infected sacral decubitus ulcer and found to have LUE DVT (L axillary veini) w/ associated PICC line on u/s. Pt's family at bedside who is providing history. Pt is s/p debridement of infected sacral wound by Dr. Fredy Garcia and has PICC in [facility] for abx. Pt denies LUE swelling, pain or issues w/ L hand. She also denies pain w/ L heel wound. Per family, L heel wound present since 04/2016 and pt has also not ambulated for about the same time and developed the sacral wound. 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 Pt's daughter says pt is adamant about no interventions for L heel , ramesh possible amputations given her experience w/ RLE. Pt was on Lovenox for A- fib. All systems reviewed w/ pt's family and negative except that noted in HPI Past Medical History HTN, PVD, parox a-fib, DVT, dementia Past Surgical History R BKA Social History Smoking Status: Never smoker Exam/Review of Systems Vital Signs Vitals Vital Signs Date Time Temp Pulse Resp B/P Pulse Ox O2 Delivery O2 Flow Rate FiO2 01/19/17 14:09 97.3 81 18 162/71 99 01/19/17 12:19 Room Air 01/19/17 08:00 2.0 Intake and Output 01/18/17 01/18/17 01/19/17 15:00 23:00 07:00 Intake Total 50 ml 1110 ml 50 ml Output Total 650 ml 300 ml Balance 50 ml 460 ml -250 ml Exam Gen: Awake, alert, NAD Neck: supple Lungs: diminished Heart: Irreg Abd: soft, NT, ND Extr: BUE no edema, no tenderness, LUE PICC intact; R BKA intact; L heel dry wound w/ eschar, toe deformities, old toe amp Pulses: non-palpable b/l brachial/radial pulses, non-palpable b/l fem, pop and L pedal pulses Results Result Diagram: 01/19/17 0435 01/19/17 0435 Results 24 hrs Laboratory Tests Test 01/19/17 01:50 01/19/17 04:35 01/19/17 08:52 01/19/17 12:14 Bedside Glucose 114 117 116 White Blood Count 19.6 H Red Blood Count 3.59 L Hemoglobin 9.8 L Hematocrit 30.9 L Mean Corpuscular Volume 86.1 Mean Corpuscular Hemoglobin 27.3 L Mean Corpuscular Hemoglobin Concent 31.7 L Red Cell Distribution Width 15.6 H Platelet Count 258 Mean Platelet Volume 10.2 Neutrophils % 70.4 Lymphocytes % 17.5 Monocytes % 7.6 Eosinophils % 2.4 Basophils % 0.4 Nucleated Red Blood Cells % 0.0 Neutrophils # (Manual) 13.8 H Lymphocytes # 3.4 H Monocytes # 1.5 H Eosinophils # 0.5 Basophils # 0.1 Nucleated Red Blood Cells # 0.0 Sodium Level 141 Potassium Level 3.5 Chloride Level 104 # Carbon Dioxide Level 28 Anion Gap 13 Blood Urea Nitrogen 9 Creatinine 0.64 Glucose Level 103 # Calcium Level 8.1 L Test 01/19/17 17:19 Bedside Glucose 207 Medications Medications Current Medications Ondansetron HCl (Zofran Inj) 4 mg Q6H PRN IV NAUSEA AND/OR VOMITING; Start at 16:30 Acetaminophen (Tylenol Tab) 650 mg Q6H PRN PO PAIN LEVEL 1-3 OR FEVER Last administered on 01/17/17 06:40; Admin Dose 650 MG; Start 01/15/17 at 16:30 Docusate Sodium (Colace) 100 mg Q12H PRN PO CONSTIPATION; Start 01/15/17 at 16: 30 Magnesium Hydroxide (Milk Of Mag) 30 ml DAILY PRN PO CONSTIPATION; Start at 16:30 Zolpidem Tartrate (Ambien) 5 mg QHS PRN PO SLEEP; Start 01/15/17 at 16:30 Aspirin (Halfprin) 81 mg DAILY PO Last administered on 01/18/17 08:57; Admin Dose 81 MG; Start 01/16/17 at 09:00 Losartan Potassium (Cozaar) 100 mg BID PO Last administered on 01/18/17 08:57 ; Admin Dose 100 MG; Start 01/15/17 at 21:00 Montelukast Sodium (Singulair) 10 mg QHS PO Last administered on 01/17/17 21: 53; Admin Dose 10 MG; Start 01/15/17 at 21:00 IV Flush (NS 10 ml) 10 ml PRN PRN IV IV PROTOCOL; Start 01/15/17 at 18:30 Miscellaneous Information 1 ea NOTE XX ; Start 01/15/17 at 19:00 Glucose (Glutose) 15 gm Q15M PRN PO DECREASED GLUCOSE; Start 01/15/17 at 19:00 Glucose (Glutose) 22.5 gm Q15M PRN PO DECREASED GLUCOSE; Start 01/15/17 at 19: 00 Dextrose (D50w Syringe) 25 ml Q15M PRN IV DECREASED GLUCOSE; Start 01/15/17 at 19:00 Dextrose (D50w Syringe) 50 ml Q15M PRN IV DECREASED GLUCOSE; Start 01/15/17 at 19:00 Glucagon (Glucagen) 1 mg Q15M PRN IM DECREASED GLUCOSE; Start 01/15/17 at 19:00 Glucose (Glutose) 15 gm Q15M PRN BUCCAL DECREASED GLUCOSE; Start 01/15/17 at 19 :00 Diagnostic Test (Pha) (Accu-Chek) 1 ea 02 XX Last administered on 01/19/17 01: 50; Admin Dose 1 EA; Start 01/16/17 at 02:00 Clonidine (Catapres) 0.1 mg Q6H PRN PO BLOOD PRESSURE SBP>160 Last administered on 01/16/17 23:42; Admin Dose 0.1 MG; Start 01/15/17 at 20:30 Miscellaneous Information (Pending Santyl Order For Wound Care) This patient jean baptiste... PRN PRN XX WOUND CARE; Start 01/15/17 at 22:00 Collagenase (Santyl) 1 applic DAILY TOP Last administered on 01/18/17 09:12; Admin Dose 1 APPLIC; Start 01/16/17 at 21:00 Hydralazine HCl (Apresoline) 10 mg Q6 PRN IV ELEVATED BLOOD PRESSURE Last administered on 01/17/17 03:05; Admin Dose 10 MG; Start 01/17/17 at 03:00 Acetaminophen (Tylenol Supp) 650 mg Q6H PRN [place] FEVER GREATER THAN 100.6 Last administered on 01/17/17 07:26; Admin Dose 650 MG; Start 01/17/17 at 07:00 Mupirocin (Bactroban) 1 applic BID TOP Last administered on 01/19/17 09:06; Admin Dose 1 APPLIC; Start 01/17/17 at 11:00 Enoxaparin Sodium (Lovenox) 65 mg Q12 SC Last administered on 01/18/17 20:51; Admin Dose 65 MG; Start 01/17/17 at 21:00 Insulin Human NPH 10 unit 10 unit BID SC Last administered on 01/18/17 08:18; Admin Dose 10 UNIT; Start 01/18/17 at 09:00 Vancomycin HCl (Vancocin) 250 ml @ 125 mls/hr Q24H IVPB Last administered on 14:26; Admin Dose 125 MLS/HR; Start 01/19/17 at 13:00 Ferrous Sulfate (Slow Fe) 142 mg DAILY PO ; Start 01/18/17 at 14:30 Calcium Carbonate (Tums) 500 mg BID PO ; Start 01/18/17 at 14:30 Nystatin (Nystatin Powder) 1 applic BID TOP Last administered on 01/19/17 09: 05; Admin Dose 1 APPLIC; Start 01/18/17 at 21:00 Sodium Hypochlorite 1 applic 1 applic BID IRR Last administered on 01/19/17 01 :46; Admin Dose 1 APPLIC; Start 01/18/17 at 21:00 Potassium Chloride/Dextrose/ Sod Cl (D5-1/2ns + KCl 20 Meq) 1,000 ml @ 100 mls/ hr Q10H IV Last administered on 01/19/17 11:34; Admin Dose 100 MLS/HR; Start 01/19/17 at 11:34 Acetaminophen/ Hydrocodone Bitart ([place] (5/325)) 1 tab Q4H PRN PO PAIN LEVEL 4 -7; Start 01/19/17 at 12:00 Acetaminophen/ Hydrocodone Bitart ([place] (5/325)) 2 tab Q4H PRN PO PAIN LEVEL 7 -10; Start 01/19/17 at 12:00 Hydromorphone HCl (Dilaudid) 0.5 mg Q2H PRN IV PAIN; Start 01/19/17 at 12:00 Hydromorphone HCl (Dilaudid) 1 mg Q2H PRN IV PAIN Last administered on 16:25; Admin Dose 1 MG; Start 01/19/17 at 12:00 Docusate Sodium (Colace) 100 mg BID PRN PO CONSTIPATION; Start 01/19/17 at 12: 00 Bisacodyl (Dulcolax Supp) 10 mg BID PRN [place] CONSTIPATION; Start 01/19/17 at 12: 00 Sodium Biphosphate/ Sodium Phosphate (Fleet Enema) 133 ml BID PRN [place] CONSTIPATION; Start 01/19/17 at 12:00 Famotidine 20 mg 20 mg DAILY IV Last administered on 01/19/17 14:25; Admin Dose 20 MG; Start 01/19/17 at 14:00 Meropenem/Sodium Chloride (Merrem 1 Gm/50 ml (Pmx)) 50 ml @ 200 mls/hr Q8 IVPB Last administered on 01/19/17 16:53; Admin Dose 200 MLS/HR; Start 01/19/17 at 15:00 VALERIA AGUILERA MD Jan 19, 2017 20:50
[2017-01-19] MEDS: MONTELUKAST 10 MG TAB PO SCH (21:02)
[2017-01-20 02:00] VITALS: BP 128/58; RESP 19
[2017-01-20] MEDS: ACCU-CHEK XX SCH (02:00)
[2017-01-20] MEDS: D5W-0.45 NACL + KCL 20 MEQ 1,000 ML IV SCH (02:30)
[2017-01-20] MEDS: HYDROmorphONE 1 MG/ML SYG IV PRN ×5 (04:31→17:54)
[2017-01-20 05:47] LABS: BASOPHILS % 0.2 % (0.0-2.0); HEMATOCRIT 32.9 % (37.0-47.0); HEMOGLOBIN 10.8 g/dl (12.0-16.0); LYMPHOCYTES # 1.6 10^3/ul (0.8-2.9); LYMPHOCYTES % 10.8 % (15.0-51.0); MEAN CORPUSCULAR HGB CONC 32.8 g/dl (32.0-37.0); MEAN CORPUSCULAR VOLUME 85.2 fl (82.0-101.0); MEAN PLATELET VOLUME 10.2 fl (7.4-10.4); MONOCYTE # 0.3 10^3/ul (0.3-0.9); MONOCYTES % 2.3 % (0.0-11.0); NEUTROPHILS % 83.7 % (39.0-77.0); PLATELET COUNT 277 10^3/UL (140-415); RED BLOOD COUNT 3.86 10^6/ul (4.20-5.40); RED CELL DISTRIBUTION WIDTH 15.2 % (11.5-14.5); WHITE BLOOD COUNT 15.1 10^3/ul (4.8-10.8)
[2017-01-20] MEDS: MEROPENEM 1 GM/50ML(PMX) 50 ML IVPB SCH ×3 (06:10→21:56)
[2017-01-20 06:32] LABS: CREATININE 0.54 mg/dl (0.44-1.00); POTASSIUM 3.9 mmol/L (3.5-5.1)
[2017-01-20 07:40] VITALS: BP 115/53; RESP 18
[2017-01-20] MEDS ORDERED: NPH, HUMAN INSULIN ISOPHANE 3ML VIAL SC SCH (08:00)
--- NOTE | 2017-01-20 08:03 | CONS ---
Date/Time of Note Date/Time of Note DATE: 01/20/17 TIME: 08:00 Assessment/Plan Assessment/Plan Chief Complaint/Hosp Course 1) progressive sacral ulcer, surrounding cellulitis await surgical input and debridement, consider MRI depending upon surgical eval wound cx to be obtained continue with vanco/merrem check ESR, CRP in a.m. 01/17 - proteus and another GNR in wound cx continue with merrem/vanco esr and CRP are moderately elevated mrsa to nares to start bactroban await surgical input pt is more awake today and able to answer some questions in [place] 01/18 - pt persistence of fever and elevated wbc is either due to an undrained abscess or inadequate antibiotics await wound care eval and surgical debridement will order MRI scan if no wound care is delivered by tomorrow wound cx has proteus, GNR and enterococcus continue with vanco/merrem at present 01/19 - wound cx are all sensitive to current antibiotics of vanco/merrem MRI of pelvis/abd was done but results not available pt to get debridement later this am. 01/20 - s/p debridement, some bone was shaved, MRI did not show osteo await path report continue with vanco/merrem fevers and WBC improved post debridement pt will need good nutrition to heal this wound, consider g-tube if pt not eating well 2) L heal ulcer with eschar no surrounding redness noted on picture 3) PVD 4) recent hx of LUE DVT 5) HTN Problems: Consultation Date/Type/Reason Admit Date/Time Jan 15, 2017 at 14:33 Initial Consult Date 01/16/17 Type of Consultation: ID Referring Provider: RIDGE MATTHEWS MD 24 HR Interval Summary Free Text/Dictation spoke to home health care provider no V, D pt had surgical procedure Exam/Review of Systems Vital Signs Vitals Vital Signs Date Time Temp Pulse Resp B/P Pulse Ox O2 Delivery O2 Flow Rate FiO2 01/20/17 07:40 97.9 72 18 115/53 100 01/19/17 20:10 Nasal Cannula 2.0 Intake and Output 01/19/17 01/19/17 01/20/17 15:00 23:00 07:00 Intake Total 1100 ml 890 ml 720 ml Output Total 220 ml 500 ml 800 ml Balance 880 ml 390 ml -80 ml Exam Constitutional: other (asleep) Respiratory: clear to auscultation Cardiovascular: regular rate and rhythm Gastrointestinal: non-tender, soft Results Result Diagram: 01/20/17 0435 01/20/17 0435 Results 24 hrs Laboratory Tests Test 01/19/17 08:52 01/19/17 12:14 01/19/17 17:19 01/19/17 20:59 Bedside Glucose 117 116 207 275 H Test 01/20/17 02:07 01/20/17 04:35 Bedside Glucose 344 H White Blood Count 15.1 #H Red Blood Count 3.86 L Hemoglobin 10.8 L Hematocrit 32.9 L Mean Corpuscular Volume 85.2 Mean Corpuscular Hemoglobin 28.0 L Mean Corpuscular Hemoglobin Concent 32.8 Red Cell Distribution Width 15.2 H Platelet Count 277 Mean Platelet Volume 10.2 Neutrophils % 83.7 H Lymphocytes % 10.8 L Monocytes % 2.3 Eosinophils % 0.0 Basophils % 0.2 Nucleated Red Blood Cells % 0.0 Neutrophils # (Manual) 12.6 H Lymphocytes # 1.6 Monocytes # 0.3 Eosinophils # 0.0 Basophils # 0.0 Nucleated Red Blood Cells # 0.0 Sodium Level 136 Potassium Level 3.9 Chloride Level 99 Carbon Dioxide Level 28 Anion Gap 13 Blood Urea Nitrogen 10 Creatinine 0.54 Glucose Level 356 #H Calcium Level 8.0 L Medications Medications Current Medications Ondansetron HCl (Zofran Inj) 4 mg Q6H PRN IV NAUSEA AND/OR VOMITING; Start at 16:30 Acetaminophen (Tylenol Tab) 650 mg Q6H PRN PO PAIN LEVEL 1-3 OR FEVER Last administered on 01/17/17 06:40; Admin Dose 650 MG; Start 01/15/17 at 16:30 Docusate Sodium (Colace) 100 mg Q12H PRN PO CONSTIPATION; Start 01/15/17 at 16: 30 Magnesium Hydroxide (Milk Of Mag) 30 ml DAILY PRN PO CONSTIPATION; Start at 16:30 Zolpidem Tartrate (Ambien) 5 mg QHS PRN PO SLEEP; Start 01/15/17 at 16:30 Aspirin (Halfprin) 81 mg DAILY PO Last administered on 01/18/17 08:57; Admin Dose 81 MG; Start 01/16/17 at 09:00 Losartan Potassium (Cozaar) 100 mg BID PO Last administered on 01/19/17 21:03 ; Admin Dose 100 MG; Start 01/15/17 at 21:00 Montelukast Sodium (Singulair) 10 mg QHS PO Last administered on 01/19/17 21: 02; Admin Dose 10 MG; Start 01/15/17 at 21:00 IV Flush (NS 10 ml) 10 ml PRN PRN IV IV PROTOCOL; Start 01/15/17 at 18:30 Miscellaneous Information 1 ea NOTE XX ; Start 01/15/17 at 19:00 Glucose (Glutose) 15 gm Q15M PRN PO DECREASED GLUCOSE; Start 01/15/17 at 19:00 Glucose (Glutose) 22.5 gm Q15M PRN PO DECREASED GLUCOSE; Start 01/15/17 at 19: 00 Dextrose (D50w Syringe) 25 ml Q15M PRN IV DECREASED GLUCOSE; Start 01/15/17 at 19:00 Dextrose (D50w Syringe) 50 ml Q15M PRN IV DECREASED GLUCOSE; Start 01/15/17 at 19:00 Glucagon (Glucagen) 1 mg Q15M PRN IM DECREASED GLUCOSE; Start 01/15/17 at 19:00 Glucose (Glutose) 15 gm Q15M PRN BUCCAL DECREASED GLUCOSE; Start 01/15/17 at 19 :00 Diagnostic Test (Pha) (Accu-Chek) 1 ea 02 XX Last administered on 01/19/17 01: 50; Admin Dose 1 EA; Start 01/16/17 at 02:00 Clonidine (Catapres) 0.1 mg Q6H PRN PO BLOOD PRESSURE SBP>160 Last administered on 01/16/17 23:42; Admin Dose 0.1 MG; Start 01/15/17 at 20:30 Miscellaneous Information (Pending Santyl Order For Wound Care) This patient jean baptiste... PRN PRN XX WOUND CARE; Start 01/15/17 at 22:00 Collagenase (Santyl) 1 applic DAILY TOP Last administered on 01/18/17 09:12; Admin Dose 1 APPLIC; Start 01/16/17 at 21:00 Hydralazine HCl (Apresoline) 10 mg Q6 PRN IV ELEVATED BLOOD PRESSURE Last administered on 01/17/17 03:05; Admin Dose 10 MG; Start 01/17/17 at 03:00 Acetaminophen (Tylenol Supp) 650 mg Q6H PRN [place] FEVER GREATER THAN 100.6 Last administered on 01/17/17 07:26; Admin Dose 650 MG; Start 01/17/17 at 07:00 Mupirocin (Bactroban) 1 applic BID TOP Last administered on 01/19/17 21:09; Admin Dose 1 APPLIC; Start 01/17/17 at 11:00 Enoxaparin Sodium 65 mg 65 mg Q12 SC Last administered on 01/19/17 21:06; Admin Dose 65 MG; Start 01/17/17 at 21:00 Vancomycin HCl (Vancocin) 250 ml @ 125 mls/hr Q24H IVPB Last administered on 14:26; Admin Dose 125 MLS/HR; Start 01/19/17 at 13:00 Ferrous Sulfate (Slow Fe) 142 mg DAILY PO ; Start 01/18/17 at 14:30 Calcium Carbonate (Tums) 500 mg BID PO Last administered on 01/19/17 21:02; Admin Dose 500 MG; Start 01/18/17 at 14:30 Nystatin (Nystatin Powder) 1 applic BID TOP Last administered on 01/19/17 21: 10; Admin Dose 1 APPLIC; Start 01/18/17 at 21:00 Sodium Hypochlorite 1 applic 1 applic BID IRR Last administered on 01/19/17 21 :09; Admin Dose 1 APPLIC; Start 01/18/17 at 21:00 Potassium Chloride/Dextrose/ Sod Cl (D5-1/2ns + KCl 20 Meq) 1,000 ml @ 100 mls/ hr Q10H IV Last administered on 01/20/17 02:30; Admin Dose 100 MLS/HR; Start 01/19/17 at 11:34 Acetaminophen/ Hydrocodone Bitart ([place] (5/325)) 1 tab Q4H PRN PO PAIN LEVEL 4 -7; Start 01/19/17 at 12:00 Acetaminophen/ Hydrocodone Bitart ([place] (5/325)) 2 tab Q4H PRN PO PAIN LEVEL 7 -10; Start 01/19/17 at 12:00 Hydromorphone HCl (Dilaudid) 0.5 mg Q2H PRN IV PAIN; Start 01/19/17 at 12:00 Hydromorphone HCl (Dilaudid) 1 mg Q2H PRN IV PAIN Last administered on 06:33; Admin Dose 1 MG; Start 01/19/17 at 12:00 Docusate Sodium (Colace) 100 mg BID PRN PO CONSTIPATION; Start 01/19/17 at 12: 00 Bisacodyl (Dulcolax Supp) 10 mg BID PRN [place] CONSTIPATION; Start 01/19/17 at 12: 00 Sodium Biphosphate/ Sodium Phosphate (Fleet Enema) 133 ml BID PRN [place] CONSTIPATION; Start 01/19/17 at 12:00 Famotidine 20 mg 20 mg DAILY IV Last administered on 01/19/17 14:25; Admin Dose 20 MG; Start 01/19/17 at 14:00 Meropenem/Sodium Chloride (Merrem 1 Gm/50 ml (Pmx)) 50 ml @ 200 mls/hr Q8 IVPB Last administered on 01/20/17 06:10; Admin Dose 200 MLS/HR; Start 01/19/17 at 15:00 Insulin Human NPH (Humulin N) 14 unit BID@08,20 SC ; Start 01/20/17 at 08:00 ANTHONY WOODARD MD Jan 20, 2017 08:03
[2017-01-20] MEDS: INSULIN ASPART [NOVOLOG] 3 ML PEN SC SCH ×5 (08:29→20:47)
[2017-01-20] MEDS: FERROUS SULFATE (SR) 142 MG TAB PO SCH (08:31)
[2017-01-20] MEDS: ASPIRIN (EC) 81 MG TAB PO SCH (08:31)
[2017-01-20] MEDS: ENOXAPARIN 100 MG/ML SYG SC SCH ×3 (08:31→21:00)
[2017-01-20] MEDS: FAMOTIDINE 20 MG INJ IV SCH (08:34)
[2017-01-20] MEDS: LOSARTAN 50 MG TAB PO SCH ×3 (08:45→21:00)
[2017-01-20] MEDS: NYSTATIN 30 GM POWDER BTL TOP SCH ×2 (08:46→20:44)
[2017-01-20] MEDS: MUPIROCIN 2% 22 GM OINT TOP SCH ×2 (08:46→20:44)
[2017-01-20] MEDS: CALCIUM CARBONATE 500 MG CHEW TAB PO SCH ×3 (08:47→21:00)
--- NOTE | 2017-01-20 09:59 | PN ---
Date/Time of Note Date/Time of Note DATE: 01/20/17 TIME: 09:56 Assessment/Plan Lines/Catheters IV Catheter Type (from Nrsg): PICC Line Sullivan in Place (from Nrsg): Yes Assessment/Plan Assessment/Plan [facility] Progress Note Date of Service: 01/20/17 Today's Impression & Plan: Overall doing well post op without major issues. No major wound problems. With above assessment, I've recommended the following for today: 1. Cont dressing changes 2. Agree with importance of nutrition Nature of presenting problem: High complexity Thank you again for your great care of this very pleasant patient and wonderful family. If there are any questions, please feel free to call me at [phone]. Disclaimer: Inadvertent spelling or grammatical errors are likely due to EHR/ dictation software use and do not reflect on the overall quality of patient care. Updated clinical summary: A very-pleasant but unfortunate 81-year-old lady with multiple comorbidities including diabetes mellitus complicated by left heel decubitus ulcer as well as right below the knee amputation and paroxysmal atrial fibrillation, presenting with stage IV decubitus ulcer overlying her sacrum. Comorbidities: 1. Infected stage IV sacral decubitus pressure ulcer with possible osteomyelitis of the coccyx; s/p excisional debridement with scissors of a 10 x 5 x 3.5 cm coccygeal and sacral decubitus ulcer and removal of 30 cm of tissue including small part of the coccyx bone (ostectomy, 1x1x1 cm) and down to muscle in the upper part of the ulcer area and application of 2 g of Micro Matrix paste 2. Diabetes mellitus complicated by left heel decubitus ulcer as well as right below the knee amputation 3. Paroxysmal atrial fibrillation 4. Left upper extremity DVT with superficial thrombosis 5. Hypertension 6. Aspiration pneumonia 7. Osteomyelitis at the posterior calcaneal margin, treated with meropenem and vancomycin 8. Severe malnutrition with prealbumin 3.1 after hydration and albumin of 1.5 9. Peripheral vascular disease 10. Dementia 11. BMI 27.5 Subjective: No major events or complaints; no major abd pain and under control with medications; no n/v/d; no sob or cp; + flatus; + BM; - activity Objective: Vitals: See below Exam: GENERAL: On exam, the patient was laying in bed and appeared to be comfortable and in no acute distress. ABDOMEN: Soft, nontender and nondistended. Incision dressings are clean, dry and intact without any evidence of erythema, edema, discharge, or hernia. There are no peritoneal signs or guarding. SKIN: Skin appears to be pink and feels warm to touch. NEUROLOGIC: Patient is awake, alert, and follows commands appropriately. Exam/Review of Systems Vital Signs Vitals Vital Signs Date Time Temp Pulse Resp B/P Pulse Ox O2 Delivery O2 Flow Rate FiO2 01/20/17 07:40 97.9 72 18 115/53 100 01/19/17 20:10 Nasal Cannula 2.0 Intake and Output 01/19/17 01/19/17 01/20/17 15:00 23:00 07:00 Intake Total 1100 ml 890 ml 720 ml Output Total 220 ml 500 ml 800 ml Balance 880 ml 390 ml -80 ml Results Result Diagram: 01/20/17 0435 01/20/17 0435 OMAR HINOJOSA M.D. Jan 20, 2017 09:59
[2017-01-20] MEDS: VANCOMYCIN 1 GM in NS 250 ML IVPB SCH (12:58)
--- NOTE | 2017-01-20 14:27 | PN ---
Date/Time of Note Date/Time of Note DATE: 01/20/17 TIME: 14:24 Assessment/Plan VTE Prophylaxis VTE Prophylaxis Intervention: LMWH Lines/Catheters IV Catheter Type (from Nrsg): PICC Line Central line still needed: Yes Urinary Cath still in place: Yes Reason Cath still needed: pres ulcer contaminated by urine Assessment/Plan Assessment/Plan sacral stage IV decub, growing proteus and ecoli and s.aureus. on merrem/vanco , being treated by ID. 02/19 debrided and eval for osteo. called ortho- they report that nothing for them to do regarding fx or osteo of sacrum. wbc improving. poor appetite- may be due to pain meds. for the next 24 hours will cont and then try to extend time between doses and also decrease dose. today ate all breakfast but poor lunch. discussing with family if appetite not improve more then ngt vs gtube for nutrition. 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 h/o left dvt of UE. on lovenox. mary already done still shows the dvt. vascular called for skilled nursing goal. at last hospitalization pt was d/c snf on lovenox. is coumadin or other more appropriate. Subjective 24 Hr Interval Summary Free Text/Dictation ate better in am, lunch poor. Exam/Review of Systems Vital Signs Vitals Vital Signs Date Time Temp Pulse Resp B/P Pulse Ox O2 Delivery O2 Flow Rate FiO2 01/20/17 08:00 Nasal Cannula 2.0 01/20/17 07:40 97.9 72 18 115/53 100 Intake and Output 01/19/17 01/19/17 01/20/17 15:00 23:00 07:00 Intake Total 1100 ml 890 ml 720 ml Output Total 220 ml 500 ml 800 ml Balance 880 ml 390 ml -80 ml Results Result Diagram: 01/20/17 0435 01/20/17 0435 Results 24 hrs Laboratory Tests Test 01/19/17 17:19 01/19/17 20:59 01/20/17 02:07 01/20/17 04:35 Bedside Glucose 207 275 H 344 H White Blood Count 15.1 #H Red Blood Count 3.86 L Hemoglobin 10.8 L Hematocrit 32.9 L Mean Corpuscular Volume 85.2 Mean Corpuscular Hemoglobin 28.0 L Mean Corpuscular Hemoglobin Concent 32.8 Red Cell Distribution Width 15.2 H Platelet Count 277 Mean Platelet Volume 10.2 Neutrophils % 83.7 H Lymphocytes % 10.8 L Monocytes % 2.3 Eosinophils % 0.0 Basophils % 0.2 Nucleated Red Blood Cells % 0.0 Neutrophils # (Manual) 12.6 H Lymphocytes # 1.6 Monocytes # 0.3 Eosinophils # 0.0 Basophils # 0.0 Nucleated Red Blood Cells # 0.0 Sodium Level 136 Potassium Level 3.9 Chloride Level 99 Carbon Dioxide Level 28 Anion Gap 13 Blood Urea Nitrogen 10 Creatinine 0.54 Glucose Level 356 #H Calcium Level 8.0 L Test 01/20/17 08:03 01/20/17 12:00 01/20/17 13:06 Bedside Glucose 380 H 366 H 347 H Medications Medications Current Medications Ondansetron HCl (Zofran Inj) 4 mg Q6H PRN IV NAUSEA AND/OR VOMITING; Start at 16:30 Acetaminophen (Tylenol Tab) 650 mg Q6H PRN PO PAIN LEVEL 1-3 OR FEVER Last administered on 01/17/17 06:40; Admin Dose 650 MG; Start 01/15/17 at 16:30 Docusate Sodium (Colace) 100 mg Q12H PRN PO CONSTIPATION; Start 01/15/17 at 16: 30 Magnesium Hydroxide (Milk Of Mag) 30 ml DAILY PRN PO CONSTIPATION; Start at 16:30 Zolpidem Tartrate (Ambien) 5 mg QHS PRN PO SLEEP; Start 01/15/17 at 16:30 Aspirin (Halfprin) 81 mg DAILY PO Last administered on 01/20/17 08:31; Admin Dose 81 MG; Start 01/16/17 at 09:00 Losartan Potassium (Cozaar) 100 mg BID PO Last administered on 01/20/17 08:45 ; Admin Dose 100 MG; Start 01/15/17 at 21:00 Montelukast Sodium (Singulair) 10 mg QHS PO Last administered on 01/19/17 21: 02; Admin Dose 10 MG; Start 01/15/17 at 21:00 IV Flush (NS 10 ml) 10 ml PRN PRN IV IV PROTOCOL; Start 01/15/17 at 18:30 Miscellaneous Information 1 ea NOTE XX ; Start 01/15/17 at 19:00 Glucose (Glutose) 15 gm Q15M PRN PO DECREASED GLUCOSE; Start 01/15/17 at 19:00 Glucose (Glutose) 22.5 gm Q15M PRN PO DECREASED GLUCOSE; Start 01/15/17 at 19: 00 Dextrose (D50w Syringe) 25 ml Q15M PRN IV DECREASED GLUCOSE; Start 01/15/17 at 19:00 Dextrose (D50w Syringe) 50 ml Q15M PRN IV DECREASED GLUCOSE; Start 01/15/17 at 19:00 Glucagon (Glucagen) 1 mg Q15M PRN IM DECREASED GLUCOSE; Start 01/15/17 at 19:00 Glucose (Glutose) 15 gm Q15M PRN BUCCAL DECREASED GLUCOSE; Start 01/15/17 at 19 :00 Diagnostic Test (Pha) (Accu-Chek) 1 ea 02 XX Last administered on 01/19/17 01: 50; Admin Dose 1 EA; Start 01/16/17 at 02:00 Clonidine (Catapres) 0.1 mg Q6H PRN PO BLOOD PRESSURE SBP>160 Last administered on 01/16/17 23:42; Admin Dose 0.1 MG; Start 01/15/17 at 20:30 Miscellaneous Information (Pending Santyl Order For Wound Care) This patient jean baptiste... PRN PRN XX WOUND CARE; Start 01/15/17 at 22:00 Collagenase (Santyl) 1 applic DAILY TOP Last administered on 01/18/17 09:12; Admin Dose 1 APPLIC; Start 01/16/17 at 21:00 Hydralazine HCl (Apresoline) 10 mg Q6 PRN IV ELEVATED BLOOD PRESSURE Last administered on 01/17/17 03:05; Admin Dose 10 MG; Start 01/17/17 at 03:00 Acetaminophen (Tylenol Supp) 650 mg Q6H PRN SC FEVER GREATER THAN 100.6 Last administered on 01/17/17 07:26; Admin Dose 650 MG; Start 01/17/17 at 07:00 Mupirocin (Bactroban) 1 applic BID TOP Last administered on 01/20/17 08:46; Admin Dose 1 APPLIC; Start 01/17/17 at 11:00 Enoxaparin Sodium 65 mg 65 mg Q12 SC Last administered on 01/20/17 08:31; Admin Dose 65 MG; Start 01/17/17 at 21:00 Vancomycin HCl (Vancocin) 250 ml @ 125 mls/hr Q24H IVPB Last administered on 12:58; Admin Dose 125 MLS/HR; Start 01/19/17 at 13:00 Ferrous Sulfate (Slow Fe) 142 mg DAILY PO Last administered on 01/20/17 08:31 ; Admin Dose 142 MG; Start 01/18/17 at 14:30 Calcium Carbonate (Tums) 500 mg BID PO Last administered on 01/20/17 08:47; Admin Dose 500 MG; Start 01/18/17 at 14:30 Nystatin (Nystatin Powder) 1 applic BID TOP Last administered on 01/20/17 08: 46; Admin Dose 1 APPLIC; Start 01/18/17 at 21:00 Sodium Hypochlorite 1 applic 1 applic BID IRR Last administered on 01/19/17 21 :09; Admin Dose 1 APPLIC; Start 01/18/17 at 21:00 Potassium Chloride/Dextrose/ Sod Cl (D5-1/2ns + KCl 20 Meq) 1,000 ml @ 100 mls/ hr Q10H IV Last administered on 01/20/17 02:30; Admin Dose 100 MLS/HR; Start 01/19/17 at 11:34 Acetaminophen/ Hydrocodone Bitart ([place] (5/325)) 1 tab Q4H PRN PO PAIN LEVEL 4 -7; Start 01/19/17 at 12:00 Acetaminophen/ Hydrocodone Bitart ([place] (5/325)) 2 tab Q4H PRN PO PAIN LEVEL 7 -10; Start 01/19/17 at 12:00 Hydromorphone HCl (Dilaudid) 0.5 mg Q2H PRN IV PAIN; Start 01/19/17 at 12:00 Hydromorphone HCl (Dilaudid) 1 mg Q2H PRN IV PAIN Last administered on 12:58; Admin Dose 1 MG; Start 01/19/17 at 12:00 Docusate Sodium (Colace) 100 mg BID PRN PO CONSTIPATION; Start 01/19/17 at 12: 00 Bisacodyl (Dulcolax Supp) 10 mg BID PRN SC CONSTIPATION; Start 01/19/17 at 12: 00 Sodium Biphosphate/ Sodium Phosphate (Fleet Enema) 133 ml BID PRN SC CONSTIPATION; Start 01/19/17 at 12:00 Famotidine 20 mg 20 mg DAILY IV Last administered on 01/20/17 08:34; Admin Dose 20 MG; Start 01/19/17 at 14:00 Meropenem/Sodium Chloride (Merrem 1 Gm/50 ml (Pmx)) 50 ml @ 200 mls/hr Q8 IVPB Last administered on 01/20/17 06:10; Admin Dose 200 MLS/HR; Start 01/19/17 at 15:00 Insulin Human NPH (Humulin N) 18 unit BID@08,20 SC ; Start 01/20/17 at 20:00 RIDGE MATTHEWS MD Jan 20, 2017 14:27
[2017-01-20 14:45] VITALS: BP 110/64; RESP 18
[2017-01-20] MEDS: SODIUM HYPOCHLORITE 0.125% 473 ML BTL IRR SCH ×2 (15:15→21:00)
[2017-01-20] MEDS: COLLAGENASE 30 GM TUBE TOP SCH (15:15)
[2017-01-20] MEDS: 1/2 NS + KCL 20 MEQ 1,000 ML IV SCH (17:47)
[2017-01-20] MEDS ORDERED: HYDROmorphONE 2 MG/ML SYG IV PRN (19:30)
[2017-01-20] MEDS: MONTELUKAST 10 MG TAB PO SCH (20:43)
[2017-01-20] MEDS: NPH, HUMAN INSULIN ISOPHANE 3ML VIAL SC SCH (20:46)
[2017-01-20 20:55] VITALS: BP 120/41; RESP 18
[2017-01-20] MEDS: HYDROmorphONE 2 MG/ML SYG IV PRN (22:46)
[2017-01-21] MEDS: 1/2 NS + KCL 20 MEQ 1,000 ML IV SCH ×3 (00:30→20:30)
[2017-01-21] MEDS: ACCU-CHEK XX SCH (02:00)
[2017-01-21] MEDS: HYDROmorphONE 2 MG/ML SYG IV PRN ×8 (02:10→23:47)
[2017-01-21 02:37] VITALS: BP 121/58; RESP 18
[2017-01-21] MEDS: MEROPENEM 1 GM/50ML(PMX) 50 ML IVPB SCH ×3 (05:08→21:36)
[2017-01-21 06:32] LABS: BASOPHILS % 0.2 % (0.0-2.0); EOSINOPHILS % 0.1 % (0.0-7.0); HEMATOCRIT 28.8 % (37.0-47.0); HEMOGLOBIN 9.2 g/dl (12.0-16.0); LYMPHOCYTES # 2.9 10^3/ul (0.8-2.9); LYMPHOCYTES % 19.4 % (15.0-51.0); MEAN CORPUSCULAR HEMOGLOBIN 27.4 pg (29.0-33.0); MEAN CORPUSCULAR HGB CONC 31.9 g/dl (32.0-37.0); MEAN CORPUSCULAR VOLUME 85.7 fl (82.0-101.0); MEAN PLATELET VOLUME 10.1 fl (7.4-10.4); MONOCYTE # 0.9 10^3/ul (0.3-0.9); MONOCYTES % 6.2 % (0.0-11.0); NEUTROPHILS % 71.5 % (39.0-77.0); PLATELET COUNT 270 10^3/UL (140-415); RED BLOOD COUNT 3.36 10^6/ul (4.20-5.40); RED CELL DISTRIBUTION WIDTH 14.8 % (11.5-14.5); WHITE BLOOD COUNT 15.1 10^3/ul (4.8-10.8)
[2017-01-21 07:23] LABS: CALCIUM 6.3 mg/dl (8.4-10.2); CREATININE 0.41 mg/dl (0.44-1.00)
[2017-01-21 07:27] LABS: POTASSIUM 7.4 mmol/L (3.5-5.1)
[2017-01-21] MEDS: INSULIN ASPART [NOVOLOG] 3 ML PEN SC SCH ×7 (07:35→20:31)
[2017-01-21 07:45] VITALS: BP 116/50; RESP 18
[2017-01-21 08:12] LABS: BASOPHILS % 0.2 % (0.0-2.0); EOSINOPHILS # 0.1 10^3/ul (0.0-0.5); EOSINOPHILS % 0.3 % (0.0-7.0); HEMATOCRIT 31.6 % (37.0-47.0); HEMOGLOBIN 10.2 g/dl (12.0-16.0); LYMPHOCYTES # 3.5 10^3/ul (0.8-2.9); LYMPHOCYTES % 21.9 % (15.0-51.0); MEAN CORPUSCULAR HEMOGLOBIN 27.5 pg (29.0-33.0); MEAN CORPUSCULAR HGB CONC 32.3 g/dl (32.0-37.0); MEAN CORPUSCULAR VOLUME 85.2 fl (82.0-101.0); MEAN PLATELET VOLUME 9.8 fl (7.4-10.4); MONOCYTE # 1.1 10^3/ul (0.3-0.9); PLATELET COUNT 294 10^3/UL (140-415); RED BLOOD COUNT 3.71 10^6/ul (4.20-5.40); RED CELL DISTRIBUTION WIDTH 15.1 % (11.5-14.5)
[2017-01-21 08:34] LABS: CALCIUM 8.3 mg/dl (8.4-10.2); CREATININE 0.54 mg/dl (0.44-1.00); POTASSIUM 3.5 mmol/L (3.5-5.1)
[2017-01-21] MEDS: FERROUS SULFATE (SR) 142 MG TAB PO SCH (09:00)
[2017-01-21] MEDS: SODIUM HYPOCHLORITE 0.125% 473 ML BTL IRR SCH ×2 (09:00→20:26)
[2017-01-21] MEDS: COLLAGENASE 30 GM TUBE TOP SCH ×2 (09:00→10:25)
--- NOTE | 2017-01-21 09:44 | PN ---
Date/Time of Note Date/Time of Note DATE: 01/21/17 TIME: 09:43 Assessment/Plan Lines/Catheters IV Catheter Type (from Nrs): PICC Line Sullivan in Place (from Nrs): Yes Assessment/Plan Assessment/Plan [facility] Progress Note Date of Service: 01/21/17 Today's Impression & Plan: Overall doing well post op without major issues. No major wound problems. No indication for acute surgical intervention. Getting closer to being able to do wound vac placement on the site (possibly by tomorrow) With above assessment, I've recommended the following for today: 1. Cont dressing changes 2. Agree with importance of nutrition 3. Wound vac tomorrow Nature of presenting problem: High complexity Thank you again for your great care of this very pleasant patient and wonderful family. If there are any questions, please feel free to call me at [phone]. Disclaimer: Inadvertent spelling or grammatical errors are likely due to EHR/ dictation software use and do not reflect on the overall quality of patient care. Updated clinical summary: A very-pleasant but unfortunate 81-year-old lady with multiple comorbidities including diabetes mellitus complicated by left heel decubitus ulcer as well as right below the knee amputation and paroxysmal atrial fibrillation, presenting with stage IV decubitus ulcer overlying her sacrum. Comorbidities: 1. Infected stage IV sacral decubitus pressure ulcer with possible osteomyelitis of the coccyx; s/p excisional debridement with scissors of a 10 x 5 x 3.5 cm coccygeal and sacral decubitus ulcer and removal of 30 cm of tissue including small part of the coccyx bone (ostectomy, 1x1x1 cm) and down to muscle in the upper part of the ulcer area and application of 2 g of Micro Matrix paste 2. Diabetes mellitus complicated by left heel decubitus ulcer as well as right below the knee amputation 3. Paroxysmal atrial fibrillation 4. Left upper extremity DVT with superficial thrombosis 5. Hypertension 6. Aspiration pneumonia 7. Osteomyelitis at the posterior calcaneal margin, treated with meropenem and vancomycin 8. Severe malnutrition with prealbumin 3.1 after hydration and albumin of 1.5 9. Peripheral vascular disease 10. Dementia 11. BMI 27.5 Subjective: No major events or complaints; no major abd pain and under control with medications; no n/v/d; no sob or cp; + flatus; + BM; - activity Objective: Vitals: See below Exam: GENERAL: On exam, the patient was laying in bed and appeared to be comfortable and in no acute distress. ABDOMEN: Soft, nontender and nondistended. Incision dressings are clean, dry and intact without any evidence of erythema, edema, discharge, or hernia. There are no peritoneal signs or guarding. SKIN: Skin appears to be pink and feels warm to touch. NEUROLOGIC: Patient is awake, alert, and follows commands appropriately. Exam/Review of Systems Vital Signs Vitals Vital Signs Date Time Temp Pulse Resp B/P Pulse Ox O2 Delivery O2 Flow Rate FiO2 01/21/17 07:45 97.6 67 18 116/50 98 01/20/17 08:00 Nasal Cannula 2.0 Intake and Output 01/20/17 01/20/17 01/21/17 15:00 23:00 07:00 Intake Total 750 ml 340 ml 1450 ml Output Total 700 ml 2000 ml Balance 750 ml -360 ml -550 ml Results Result Diagram: 01/21/17 0748 01/21/17 0748 OMAR HINOJOSA M.D. Jan 21, 2017 09:44
[2017-01-21] MEDS: FAMOTIDINE 20 MG TAB PO SCH (10:22)
[2017-01-21] MEDS: LOSARTAN 50 MG TAB PO SCH ×2 (10:22→20:31)
[2017-01-21] MEDS: ASPIRIN (EC) 81 MG TAB PO SCH (10:22)
[2017-01-21] MEDS: CALCIUM CARBONATE 500 MG CHEW TAB PO SCH ×2 (10:23→20:30)
[2017-01-21] MEDS: MUPIROCIN 2% 22 GM OINT TOP SCH ×2 (10:24→20:32)
[2017-01-21] MEDS: NYSTATIN 30 GM POWDER BTL TOP SCH ×2 (10:25→20:32)
[2017-01-21] MEDS: ENOXAPARIN 100 MG/ML SYG SC SCH ×2 (10:26→20:33)
[2017-01-21] MEDS: NPH, HUMAN INSULIN ISOPHANE 3ML VIAL SC SCH ×2 (10:32→21:54)
--- NOTE | 2017-01-21 12:13 | PN ---
Date/Time of Note Date/Time of Note DATE: 01/21/17 TIME: 12:09 Assessment/Plan VTE Prophylaxis VTE Prophylaxis Intervention: LMWH Lines/Catheters IV Catheter Type (from Nrsg): PICC Line Central line still needed: Yes Urinary Cath still in place: Yes Reason Cath still needed: skin wounds contaminated by urine Assessment/Plan Assessment/Plan sacral stage IV decub, growing proteus and ecoli and s.aureus. on merrem/vanco , being treated by ID. 02/19 debrided and eval for osteo. called ortho- they report that nothing for them to do regarding fx or osteo of sacrum. wbc improving. poor appetite- may be due to pain meds. for the next 24 hours will cont and then try to extend time between doses and also decrease dose. today ate all breakfast but poor lunch. discussing with family if appetite not improve more then ngt vs gtube for nutrition. son at bed side says he does not want any g- tube for mother. daughter at bed side and agreeable to start with ngt first and if appetite does not improve then possible g-tube. 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 paroxysmal afib on last admission- occurred during sepsis and intubation. pt on lovenox. since this time unclear if pt still needs retirement anticoag- and if so can oral med be used. need clarification since the vascular surg reports that the med for afib is appropriate for the UE DVT. if pt doesnt need med for afib, then what med would vascular like to be used. h/o left dvt of UE. on lovenox. mary already done still shows the dvt. vascular called for retirement goal. at last hospitalization pt was d/c snf on lovenox. is coumadin or other more appropriate. Subjective 24 Hr Interval Summary Free Text/Dictation poor appetite. sedated. discussion with son- he wants more sedation. discussion was no. daughter caregiver. agreeable to ngt and then feeding. Exam/Review of Systems Vital Signs Vitals Vital Signs Date Time Temp Pulse Resp B/P Pulse Ox O2 Delivery O2 Flow Rate FiO2 01/21/17 07:45 97.6 67 18 116/50 98 01/20/17 08:00 Nasal Cannula 2.0 Intake and Output 8/01/20/17 01/21/17 15:00 23:00 07:00 Intake Total 750 ml 340 ml 1450 ml Output Total 700 ml 2000 ml Balance 750 ml -360 ml -550 ml Results Result Diagram: 01/21/17 0748 01/21/17 0748 Results 24 hrs Laboratory Tests Test 01/20/17 13:06 01/20/17 17:25 01/20/17 20:40 01/21/17 02:03 Bedside Glucose 347 H 275 H 200 98 Test 01/21/17 05:18 01/21/17 05:38 01/21/17 07:48 01/21/17 09:31 Sodium Level 128 L 142 Potassium Level 7.4 #*H 3.5 # Chloride Level 101 104 Carbon Dioxide Level 24 29 Anion Gap 10 13 Blood Urea Nitrogen 8 9 Creatinine 0.41 L 0.54 Glucose Level 68 #L 72 Calcium Level 6.3 L 8.3 L White Blood Count 15.1 H 16.0 H Red Blood Count 3.36 L 3.71 L Hemoglobin 9.2 L 10.2 L Hematocrit 28.8 L 31.6 L Mean Corpuscular Volume 85.7 85.2 Mean Corpuscular Hemoglobin 27.4 L 27.5 L Mean Corpuscular Hemoglobin Concent 31.9 L 32.3 Red Cell Distribution Width 14.8 H 15.1 H Platelet Count 270 294 Mean Platelet Volume 10.1 9.8 Neutrophils % 71.5 68.0 Lymphocytes % 19.4 21.9 Monocytes % 6.2 7.0 Eosinophils % 0.1 0.3 Basophils % 0.2 0.2 Nucleated Red Blood Cells % 0.0 0.0 Neutrophils # (Manual) 10.8 H 10.9 H Lymphocytes # 2.9 3.5 H Monocytes # 0.9 1.1 H Eosinophils # 0.0 0.1 Basophils # 0.0 0.0 Nucleated Red Blood Cells # 0.0 0.0 Bedside Glucose 71 Medications Medications Current Medications Ondansetron HCl (Zofran Inj) 4 mg Q6H PRN IV NAUSEA AND/OR VOMITING; Start at 16:30 Acetaminophen (Tylenol Tab) 650 mg Q6H PRN PO PAIN LEVEL 1-3 OR FEVER Last administered on 01/17/17t 06:40; Admin Dose 650 MG; Start 01/15/17 at 16:30 Docusate Sodium (Colace) 100 mg Q12H PRN PO CONSTIPATION; Start 01/15/17 at 16: 30 Magnesium Hydroxide (Milk Of Mag) 30 ml DAILY PRN PO CONSTIPATION; Start at 16:30 Zolpidem Tartrate (Ambien) 5 mg QHS PRN PO SLEEP; Start 01/15/17 at 16:30 Aspirin (Halfprin) 81 mg DAILY PO Last administered on 01/21/17 10:22; Admin Dose 81 MG; Start 01/16/17 at 09:00 Losartan Potassium (Cozaar) 100 mg BID PO Last administered on 01/21/17 10:22 ; Admin Dose 100 MG; Start 01/15/17 at 21:00 Montelukast Sodium (Singulair) 10 mg QHS PO Last administered on 01/20/17 20: 43; Admin Dose 10 MG; Start 01/15/17 at 21:00 IV Flush (NS 10 ml) 10 ml PRN PRN IV IV PROTOCOL; Start 01/15/17 at 18:30 Miscellaneous Information 1 ea NOTE XX ; Start 01/15/17 at 19:00 Glucose (Glutose) 15 gm Q15M PRN PO DECREASED GLUCOSE; Start 01/15/17 at 19:00 Glucose (Glutose) 22.5 gm Q15M PRN PO DECREASED GLUCOSE; Start 01/15/17 at 19: 00 Dextrose (D50w Syringe) 25 ml Q15M PRN IV DECREASED GLUCOSE; Start 01/15/17 at 19:00 Dextrose (D50w Syringe) 50 ml Q15M PRN IV DECREASED GLUCOSE; Start 01/15/17 at 19:00 Glucagon (Glucagen) 1 mg Q15M PRN IM DECREASED GLUCOSE; Start 01/15/17 at 19:00 Glucose (Glutose) 15 gm Q15M PRN BUCCAL DECREASED GLUCOSE; Start 01/15/17 at 19 :00 Diagnostic Test (Pha) (Accu-Chek) 1 ea 02 XX Last administered on 01/19/17 01: 50; Admin Dose 1 EA; Start 01/16/17 at 02:00 Clonidine (Catapres) 0.1 mg Q6H PRN PO BLOOD PRESSURE SBP>160 Last administered on 01/16/17 23:42; Admin Dose 0.1 MG; Start 01/15/17 at 20:30 Miscellaneous Information (Pending Santyl Order For Wound Care) This patient jean baptiste... PRN PRN XX WOUND CARE; Start 01/15/17 at 22:00 Collagenase (Santyl) 1 applic DAILY TOP Last administered on 01/21/17 10:25; Admin Dose 1 APPLIC; Start 01/16/17 at 21:00 Hydralazine HCl (Apresoline) 10 mg Q6 PRN IV ELEVATED BLOOD PRESSURE Last administered on 01/17/17 03:05; Admin Dose 10 MG; Start 01/17/17 at 03:00 Acetaminophen (Tylenol Supp) 650 mg Q6H PRN AL FEVER GREATER THAN 100.6 Last administered on 01/17/17 07:26; Admin Dose 650 MG; Start 01/17/17 at 07:00 Mupirocin (Bactroban) 1 applic BID TOP Last administered on 01/21/17 10:24; Admin Dose 1 APPLIC; Start 01/17/17 at 11:00 Enoxaparin Sodium 65 mg 65 mg Q12 SC Last administered on 01/21/17 10:26; Admin Dose 65 MG; Start 01/17/17 at 21:00 Vancomycin HCl (Vancocin) 250 ml @ 125 mls/hr Q24H IVPB Last administered on 12:58; Admin Dose 125 MLS/HR; Start 01/19/17 at 13:00 Ferrous Sulfate (Slow Fe) 142 mg DAILY PO Last administered on 01/21/17 09:00 ; Admin Dose 142 MG; Start 01/18/17 at 14:30 Calcium Carbonate (Tums) 500 mg BID PO Last administered on 01/21/17 10:23; Admin Dose 500 MG; Start 01/18/17 at 14:30 Nystatin (Nystatin Powder) 1 applic BID TOP Last administered on 01/21/17 10: 25; Admin Dose 1 APPLIC; Start 01/18/17 at 21:00 Sodium Hypochlorite ([place] (1/4 Strength)) 1 applic BID IRR Last administered on 01/20/17 15:15; Admin Dose 1 APPLIC; Start 01/18/17 at 21:00 Acetaminophen/ Hydrocodone Bitart ([place] (5/325)) 1 tab Q4H PRN PO PAIN LEVEL 4 -7; Start 01/19/17 at 12:00 Acetaminophen/ Hydrocodone Bitart ([place] (5/325)) 2 tab Q4H PRN PO PAIN LEVEL 7 -10; Start 01/19/17 at 12:00 Docusate Sodium (Colace) 100 mg BID PRN PO CONSTIPATION; Start 01/19/17 at 12: 00 Bisacodyl (Dulcolax Supp) 10 mg BID PRN AL CONSTIPATION; Start 01/19/17 at 12: 00 Sodium Biphosphate/ Sodium Phosphate 133 ml 133 ml BID PRN AL CONSTIPATION; Start 01/19/17 at 12:00 Meropenem/Sodium Chloride ([place] 1 Gm/50 ml (Pmx)) 50 ml @ 200 mls/hr Q8 IVPB Last administered on 01/21/17 05:08; Admin Dose 200 MLS/HR; Start 01/19/17 at 15:00 Insulin Human NPH 18 unit 18 unit BID@08,20 SC Last administered on 01/21/17 10:32; Admin Dose 18 UNIT; Start 01/20/17 at 20:00 Potassium Chloride/Sodium Chloride (1/2 NS + KCl 20 Meq) 1,000 ml @ 100 mls/hr Q10H IV Last administered on 01/21/17 04:17; Admin Dose 100 MLS/HR; Start at 14:30 Famotidine (Pepcid) 20 mg DAILY PO Last administered on 01/21/17 10:22; Admin Dose 20 MG; Start 01/21/17 at 09:00 Hydromorphone HCl (Dilaudid) 3 mg Q3H PRN IV PAIN Last administered on 10:21; Admin Dose 3 MG; Start 01/20/17 at 23:00 Hydromorphone HCl (Dilaudid) 2 mg Q2H PRN IV PAIN Last administered on 06:23; Admin Dose 2 MG; Start 01/20/17 at 23:00 RIDGE MATTHEWS MD Jan 21, 2017 12:13
[2017-01-21 14:30] VITALS: BP 140/57; RESP 18
[2017-01-21] MEDS ORDERED: LIDOCAINE 1% (MDV) 20 ML INJ SC ONE (14:30)
[2017-01-21] MEDS: VANCOMYCIN 1 GM in NS 250 ML IVPB SCH (15:07)
--- NOTE | 2017-01-21 16:37 | CONS ---
Date/Time of Note Date/Time of Note DATE: 01/21/17 TIME: 16:24 Assessment/Plan Assessment/Plan Additional Assessment/Plan Sacral decubiti DVT of left upper extremity History of paroxysmal atrial fibrillation Preserved ejection fraction Peripheral arterial disease -Cardiology consultation was requested for assistance with anticoagulation management. Patient history of paroxysmal atrial fibrillation on previous admission the patient was septic in the ICU and intubated. Afterwards, no further atrial ablation and patient remained in sinus rhythm. Of note, patient currently with DVT of the left upper extremity and does have a PICC line at that site. Given PICC line is likely the -itis for the DVT, would recommend removal and if PICC line. In discussion with her physician, patient will need PICC line, I have requested this to be placed on the right upper extremity. Patient currently on subcutaneous Lovenox. This could be continued in the interim given patient possibly plan for procedures. Once no further procedures are planned, patient could be transitioned to oral anticoagulant. Based on patient's current weight, creatinine and age, would recommend Eliquis 5 mg p.o. twice daily with stopping subcutaneous Lovenox at that time. Consultation Date/Type/Reason Admit Date/Time Jan 15, 2017 at 14:33 Type of Consultation: cv Reason for Consultation Anticoagulation management Hx of Present Illness This is an 81-year-old female with history of peripheral tear disease, paroxysmal atrial fibrillation during recent hospital stay, DVT who was admitted with sacral decubiti. Patient has been undergoing treatment for this reason. Patient also with left upper extremity ultrasound which demonstrated DVT patient with PICC line left upper extremity. Given history of atrial fibrillation on previous admission which was paroxysmal and DVT, cardiology consultation was requested for guidance with anticoagulation management. In discussion with the patient's daughter at bedside, patient without symptoms of dizziness or lightheadedness, shortness of breath, chest pain or palpitations. Her main complaint has been pain in the region of the ulcer. No issues of any bleeding. 12 point review of systems was performed with all pertinent positives and negatives mentioned above and all else is negative Past Medical History Paroxysmal atrial fibrillation Sacral decubiti Peripheral atrial disease Medical History: hypertension Past Surgical History History of lower extremity amputation Family History Significant Family History: no pertinent family hx Social History Alcohol Use: none Smoking Status: Never smoker Exam/Review of Systems Vital Signs Vitals Vital Signs Date Time Temp Pulse Resp B/P Pulse Ox O2 Delivery O2 Flow Rate FiO2 01/21/17 14:30 97.8 80 18 140/57 96 01/20/17 08:00 Nasal Cannula 2.0 Intake and Output 01/20/17 01/20/17 01/21/17 15:00 23:00 07:00 Intake Total 750 ml 340 ml 1450 ml Output Total 700 ml 2000 ml Balance 750 ml -360 ml -550 ml Exam Follows commands, no apparent distress Constitutional: alert Head: normocephalic Neck: supple Respiratory: other (Coarse breath sounds bilaterally, no wheezing) Cardiovascular: other (s1 S2 heard), regular rate and rhythm Gastrointestinal: bowel sounds, non-tender, other (Guarding), soft Extremities: other (Trace lower extremity edema, amputation) Results Result Diagram: 01/21/17 0748 01/21/17 0748 Results 24 hrs Laboratory Tests Test 01/20/17 17:25 01/20/17 20:40 01/21/17 02:03 01/21/17 05:18 Bedside Glucose 275 H 200 98 Sodium Level 128 L Potassium Level 7.4 #*H Chloride Level 101 Carbon Dioxide Level 24 Anion Gap 10 Blood Urea Nitrogen 8 Creatinine 0.41 L Glucose Level 68 #L Calcium Level 6.3 L Test 01/21/17 05:38 01/21/17 07:48 01/21/17 09:31 01/21/17 12:15 White Blood Count 15.1 H 16.0 H Red Blood Count 3.36 L 3.71 L Hemoglobin 9.2 L 10.2 L Hematocrit 28.8 L 31.6 L Mean Corpuscular Volume 85.7 85.2 Mean Corpuscular Hemoglobin 27.4 L 27.5 L Mean Corpuscular Hemoglobin Concent 31.9 L 32.3 Red Cell Distribution Width 14.8 H 15.1 H Platelet Count 270 294 Mean Platelet Volume 10.1 9.8 Neutrophils % 71.5 68.0 Lymphocytes % 19.4 21.9 Monocytes % 6.2 7.0 Eosinophils % 0.1 0.3 Basophils % 0.2 0.2 Nucleated Red Blood Cells % 0.0 0.0 Neutrophils # (Manual) 10.8 H 10.9 H Lymphocytes # 2.9 3.5 H Monocytes # 0.9 1.1 H Eosinophils # 0.0 0.1 Basophils # 0.0 0.0 Nucleated Red Blood Cells # 0.0 0.0 Sodium Level 142 Potassium Level 3.5 # Chloride Level 104 Carbon Dioxide Level 29 Anion Gap 13 Blood Urea Nitrogen 9 Creatinine 0.54 Glucose Level 72 Calcium Level 8.3 L Bedside Glucose 71 Vancomycin Level Trough 14.6 Test 01/21/17 12:31 Bedside Glucose 90 Medications Medications Current Medications Ondansetron HCl (Zofran Inj) 4 mg Q6H PRN IV NAUSEA AND/OR VOMITING; Start at 16:30 Acetaminophen (Tylenol Tab) 650 mg Q6H PRN PO PAIN LEVEL 1-3 OR FEVER Last administered on 01/17/17 06:40; Admin Dose 650 MG; Start 01/15/17 at 16:30 Docusate Sodium (Colace) 100 mg Q12H PRN PO CONSTIPATION; Start 01/15/17 at 16: 30 Magnesium Hydroxide (Milk Of Mag) 30 ml DAILY PRN PO CONSTIPATION; Start at 16:30 Aspirin (Halfprin) 81 mg DAILY PO Last administered on 01/21/17 10:22; Admin Dose 81 MG; Start 01/16/17 at 09:00 Losartan Potassium (Cozaar) 100 mg BID PO Last administered on 01/21/17 10:22 ; Admin Dose 100 MG; Start 01/15/17 at 21:00 Montelukast Sodium (Singulair) 10 mg QHS PO Last administered on 01/20/17 20: 43; Admin Dose 10 MG; Start 01/15/17 at 21:00 IV Flush (NS 10 ml) 10 ml PRN PRN IV IV PROTOCOL; Start 01/15/17 at 18:30 Miscellaneous Information 1 ea NOTE XX ; Start 01/15/17 at 19:00 Glucose (Glutose) 15 gm Q15M PRN PO DECREASED GLUCOSE; Start 01/15/17 at 19:00 Glucose (Glutose) 22.5 gm Q15M PRN PO DECREASED GLUCOSE; Start 01/15/17 at 19: 00 Dextrose (D50w Syringe) 25 ml Q15M PRN IV DECREASED GLUCOSE; Start 01/15/17 at 19:00 Dextrose (D50w Syringe) 50 ml Q15M PRN IV DECREASED GLUCOSE; Start 01/15/17 at 19:00 Glucagon (Glucagen) 1 mg Q15M PRN IM DECREASED GLUCOSE; Start 01/15/17 at 19:00 Glucose (Glutose) 15 gm Q15M PRN BUCCAL DECREASED GLUCOSE; Start 01/15/17 at 19 :00 Diagnostic Test (Pha) (Accu-Chek) 1 ea 02 XX Last administered on 01/19/17 01: 50; Admin Dose 1 EA; Start 01/16/17 at 02:00 Clonidine (Catapres) 0.1 mg Q6H PRN PO BLOOD PRESSURE SBP>160 Last administered on 01/16/17 23:42; Admin Dose 0.1 MG; Start 01/15/17 at 20:30 Miscellaneous Information (Pending Santyl Order For Wound Care) This patient jean baptiste... PRN PRN XX WOUND CARE; Start 01/15/17 at 22:00 Collagenase (Santyl) 1 applic DAILY TOP Last administered on 01/21/17 10:25; Admin Dose 1 APPLIC; Start 01/16/17 at 21:00 Hydralazine HCl (Apresoline) 10 mg Q6 PRN IV ELEVATED BLOOD PRESSURE Last administered on 01/17/17 03:05; Admin Dose 10 MG; Start 01/17/17 at 03:00 Acetaminophen (Tylenol Supp) [address] FEVER GREATER THAN 100.6 Last administered on 01/17/17 07:26; Admin Dose 650 MG; Start 01/17/17 at 07:00 Mupirocin (Bactroban) 1 applic BID TOP Last administered on 01/21/17 10:24; Admin Dose 1 APPLIC; Start 01/17/17 at 11:00 Enoxaparin Sodium 65 mg 65 mg Q12 SC Last administered on 01/21/17 10:26; Admin Dose 65 MG; Start 01/17/17 at 21:00 Vancomycin HCl (Vancocin) 250 ml @ 125 mls/hr Q24H IVPB Last administered on 15:07; Admin Dose 125 MLS/HR; Start 01/19/17 at 13:00 Ferrous Sulfate (Slow Fe) 142 mg DAILY PO Last administered on 01/21/17 09:00 ; Admin Dose 142 MG; Start 01/18/17 at 14:30 Calcium Carbonate (Tums) 500 mg BID PO Last administered on 01/21/17 10:23; Admin Dose 500 MG; Start 01/18/17 at 14:30 Nystatin (Nystatin Powder) 1 applic BID TOP Last administered on 01/21/17 10: 25; Admin Dose 1 APPLIC; Start 01/18/17 at 21:00 Sodium Hypochlorite (Dakin'S (1/4 Strength)) 1 applic BID IRR Last administered on 01/20/17 15:15; Admin Dose 1 APPLIC; Start 01/18/17 at 21:00 Acetaminophen/ Hydrocodone Bitart ([place] (5/325)) 1 tab Q4H PRN PO PAIN LEVEL 4 -7; Start 01/19/17 at 12:00 Acetaminophen/ Hydrocodone Bitart ([place] (5/325)) 2 tab Q4H PRN PO PAIN LEVEL 7 -10; Start 01/19/17 at 12:00 Docusate Sodium (Colace) 100 mg BID PRN PO CONSTIPATION; Start 01/19/17 at 12: 00 Bisacodyl (Dulcolax Supp) [address] CONSTIPATION; Start 01/19/17 at 12: 00 Sodium Biphosphate/ Sodium Phosphate 133 ml [address] CONSTIPATION; Start 01/19/17 at 12:00 Meropenem/Sodium Chloride (Merrem 1 Gm/50 ml (Pmx)) 50 ml @ 200 mls/hr Q8 IVPB Last administered on 01/21/17 14:05; Admin Dose 200 MLS/HR; Start 01/19/17 at 15:00 Insulin Human NPH 18 unit 18 unit BID@08,20 SC Last administered on 01/21/17 10:32; Admin Dose 18 UNIT; Start 01/20/17 at 20:00 Potassium Chloride/Sodium Chloride (1/2 NS + KCl 20 Meq) 1,000 ml @ 100 mls/hr Q10H IV Last administered on 01/21/17 04:17; Admin Dose 100 MLS/HR; Start at 14:30 Famotidine (Pepcid) 20 mg DAILY PO Last administered on 01/21/17 10:22; Admin Dose 20 MG; Start 01/21/17 at 09:00 Hydromorphone HCl (Dilaudid) 3 mg Q3H PRN IV PAIN Last administered on 10:21; Admin Dose 3 MG; Start 01/20/17 at 23:00 Hydromorphone HCl (Dilaudid) 2 mg Q2H PRN IV PAIN Last administered on t 14:19; Admin Dose 2 MG; Start 01/20/17 at 23:00 Zolpidem Tartrate (Ambien) 10 mg HS PRN PO INSOMNIA; Start 01/21/17 at 13:30 Procedures Procedures ECG demonstrates sinus rhythm at 60 bpm, QRS 76 ms, anteroseptal Q waves, nonspecific T-wave abnormalities Tucker Jacome DO Jan 21, 2017 16:34
--- NOTE | 2017-01-21 17:40 | RADRPT ---
PROCEDURE: US guidance for PICC line CLINICAL INDICATION: PICC line placement TECHNIQUE: Multiple real-time images were acquired of the patient's arm utilizing a high resolutio n transducer. This was performed by the PICC line nurse for venous access. COMPARISON: None FINDINGS: See impression. IMPRESSION: Ultrasound guidance for PICC line placement. There is a patent and compressible right upper extremity vein. RPTAT: AA Physician Talon Date Time Electronically viewed and signed by Prasanth Suárez Physician on 01/21/2017 17:40 /
--- NOTE | 2017-01-21 17:53 | RADRPT ---
PROCEDURE: XR Chest. CLINICAL INDICATION: Check PICC line position. TECHNIQUE: Single frontal view. COMPARISON: 01/15/2017. FINDINGS: There is a right arm PICC line with the tip in the lower superior vena cava. Previously noted left arm PICC line has been removed.. The lungs are clear. The heart size is normal. There is calcification in the aorta consistent with atherosclerosis. There is no pleural effusion or pneumothorax. There are degenerative changes of the right glenohumeral joint. IMPRESSION: 1. Right arm PICC line tip in satisfactory position. 2. Left arm PICC line removed. 3. Atherosclerosis. 4. Degenerative changes of the right glenohumeral joint. 5. Otherwise normal chest radiograph. RPTAT: QQ .Tod Elias MD, Date Time Electronically viewed and signed by .Tod Elias MD, on 01/21/2017 17:53 .R/
[2017-01-21] MEDS ORDERED: SOD CHLORIDE 0.9% 100 ML ONE (19:05)
--- NOTE | 2017-01-21 19:26 | CONS ---
DATE OF ADMISSION: 01/15/2017 DATE OF CONSULTATION: 01/21/2017 HISTORY OF PRESENT ILLNESS: Thank you for having me see this patient. As you know, she is an 81-year-old woman who I am asked to see regarding nutritional support. The history is obtained from review of the chart and speaking with the patient's daughter. Apparently, the patient has had problems with osteomyelitis and a sacral decubitus. She has been unable to the eat other than small amounts recently. Because of this, I was asked to see her to place a percutaneous endoscopic gastrostomy. There is no history of gastrointestinal illness. There is no history of peptic ulcer disease. PAST MEDICAL HISTORY: Significant for hospitalizations for right [id number] amputation. Adult illnesses significant for hypertension, peripheral vascular disease, atrial fibrillation, deep venous thrombosis, dementia, diabetes, aspiration pneumonia, and malnutrition. Childhood: scarlet fever. ALLERGIES: PENICILLIN. INJURIES: None. MEDICATION: Include: 1. Ambien. 2. Pepcid. 3. Dilaudid. 4. Meropenem. 5. Vancomycin. 6. [place]. 7. Colace. 8. Dulcolax. 9. Iron. 10. Tums. 11. Lovenox. 12. Tylenol. 13. Hydralazine. 14. Aspirin. 15. Losartan. 16. Singulair. 17. Clonidine. 18. Insulin. 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 She does not smoke or drink alcohol. FAMILY HISTORY: Noncontributory. REVIEW OF SYSTEMS: Negative, except as noted above. PHYSICAL EXAMINATION: GENERAL: Shows patient to be a well-developed, elderly female, who has a large sacral decubitus. VITAL SIGNS: Temperature 97.8, pulse 80, respirations 18, blood pressure 140/57. SKIN: Clear. HEENT: Negative. CHEST: Clear. CARDIAC: No murmurs, rubs or gallops. ABDOMEN: Soft, nontender, normal bowel sounds, no rebound rigidity. RECTAL: Deferred. LABORATORY: Remarkable for white count 16, hemoglobin 10, hematocrit 31, platelets 294. PT/INR 1.3, PTT 45. Chemistries: Sodium 142, potassium 3.5, chloride 104, CO2 of 29, BUN 9, creatinine 0.54. IMPRESSION: I had an extensive discussion with the patient's daughter regarding percutaneous endoscopic gastrostomy. I have discussed specifically the risks, to include bleeding, infection, perforation, transfusions, surgery or life-threatening complications. They understand this and wish to proceed. Dictated By: Michael Finley MD /[email or web address]/[email or web address] /Document#: [id number]
[2017-01-21 20:00] VITALS: BP 150/65; RESP 19
[2017-01-21] MEDS: MONTELUKAST 10 MG TAB PO SCH (20:30)
[2017-01-21] MEDS: ZOLPIDEM 5 MG TAB PO PRN (22:48)
[2017-01-21] MEDS: D5W-0.45 NACL + KCL 20 MEQ 1,000 ML IV SCH (23:42)
[2017-01-22] VITALS (14 sets, daily range): BP systolic 108–179; BP diastolic 28–75; PULSE 70–92; RESP 11–24
[2017-01-22] MEDS: ACCU-CHEK XX SCH (02:19)
[2017-01-22] MEDS: MEROPENEM 1 GM/50ML(PMX) 50 ML IVPB SCH ×3 (05:23→22:03)
[2017-01-22] MEDS: HYDROmorphONE 2 MG/ML SYG IV PRN ×4 (05:56→21:47)
[2017-01-22 06:39] LABS: BASOPHIL # 0.1 10^3/ul (0.0-0.1); BASOPHILS % 0.6 % (0.0-2.0); EOSINOPHILS # 0.3 10^3/ul (0.0-0.5); EOSINOPHILS % 2.1 % (0.0-7.0); HEMATOCRIT 34.4 % (37.0-47.0); HEMOGLOBIN 10.9 g/dl (12.0-16.0); LYMPHOCYTES % 31.8 % (15.0-51.0); MEAN CORPUSCULAR HEMOGLOBIN 27.3 pg (29.0-33.0); MEAN CORPUSCULAR HGB CONC 31.7 g/dl (32.0-37.0); MEAN CORPUSCULAR VOLUME 86.2 fl (82.0-101.0); MEAN PLATELET VOLUME 10.1 fl (7.4-10.4); MONOCYTE # 1.1 10^3/ul (0.3-0.9); NEUTROPHILS % 53.5 % (39.0-77.0); PLATELET COUNT 300 10^3/UL (140-415); RED BLOOD COUNT 3.99 10^6/ul (4.20-5.40); WHITE BLOOD COUNT 12.7 10^3/ul (4.8-10.8)
[2017-01-22 07:14] LABS: ALBUMIN 2.4 g/dl (3.3-4.9); ALBUMIN/GLOBULIN RATIO 0.68; BILIRUBIN,INDIRECT 0.2 mg/dl (0-1.1); BILIRUBIN,TOTAL 0.2 mg/dl (0.2-1.3); CALCIUM 8.1 mg/dl (8.4-10.2); CREATININE 0.59 mg/dl (0.44-1.00); POTASSIUM 3.5 mmol/L (3.5-5.1); TOTAL PROTEIN 5.9 g/dl (6.1-8.1)
[2017-01-22] MEDS: INSULIN ASPART [NOVOLOG] 3 ML PEN SC SCH ×7 (07:35→21:41)
[2017-01-22] MEDS: NPH, HUMAN INSULIN ISOPHANE 3ML VIAL SC SCH ×2 (08:28→21:38)
[2017-01-22] MEDS: CALCIUM CARBONATE 500 MG CHEW TAB PO SCH ×2 (08:30→21:36)
[2017-01-22] MEDS: FAMOTIDINE 20 MG TAB PO SCH (08:30)
[2017-01-22] MEDS: FERROUS SULFATE (SR) 142 MG TAB PO SCH (08:30)
[2017-01-22] MEDS: ENOXAPARIN 100 MG/ML SYG SC SCH ×2 (08:30→21:37)
[2017-01-22] MEDS: LOSARTAN 50 MG TAB PO SCH ×2 (08:31→21:36)
[2017-01-22] MEDS: D5W-0.45 NACL + KCL 20 MEQ 1,000 ML IV SCH ×2 (09:00→17:18)
[2017-01-22] MEDS: COLLAGENASE 30 GM TUBE TOP SCH (09:00)
[2017-01-22] MEDS: NYSTATIN 30 GM POWDER BTL TOP SCH ×2 (09:00→21:52)
[2017-01-22] MEDS: SODIUM HYPOCHLORITE 0.125% 473 ML BTL IRR SCH ×2 (09:00→21:52)
[2017-01-22] MEDS: MUPIROCIN 2% 22 GM OINT TOP SCH ×2 (09:00→21:52)
[2017-01-22] MEDS: ASPIRIN (EC) 81 MG TAB PO SCH (09:00)
--- NOTE | 2017-01-22 12:09 | CONS ---
Date/Time of Note Date/Time of Note DATE: 01/22/17 TIME: 12:04 Assessment/Plan Assessment/Plan Chief Complaint/Hosp Course 1) progressive sacral ulcer, surrounding cellulitis await surgical input and debridement, consider MRI depending upon surgical eval wound cx to be obtained continue with vanco/merrem check ESR, CRP in a.m. 01/17 - proteus and another GNR in wound cx continue with merrem/vanco esr and CRP are moderately elevated mrsa to nares to start bactroban await surgical input pt is more awake today and able to answer some questions in haitian 01/18 - pt persistence of fever and elevated wbc is either due to an undrained abscess or inadequate antibiotics await wound care eval and surgical debridement will order MRI scan if no wound care is delivered by tomorrow wound cx has proteus, GNR and enterococcus continue with vanco/merrem at present 01/19 - wound cx are all sensitive to current antibiotics of vanco/merrem MRI of pelvis/abd was done but results not available pt to get debridement later this am. 01/20 - s/p debridement, some bone was shaved, MRI did not show osteo await path report continue with vanco/merrem fevers and WBC improved post debridement pt will need good nutrition to heal this wound, consider g-tube if pt not eating well 01/22 - pt to get g-tube for better nutrition continue with vanco/merrem thru 02/01/17 consider doxy for 2 weeks after that path specimen did not identify bone to examine for osteo 2) L heal ulcer with eschar no surrounding redness noted on picture 3) PVD 4) recent hx of LUE DVT 5) HTN Problems: Consultation Date/Type/Reason Admit Date/Time Jan 15, 2017 at 14:33 Initial Consult Date 01/16/17 Type of Consultation: ID Referring Provider: RIDGE MATTHEWS MD 24 HR Interval Summary Free Text/Dictation spoke to nurse pt to get g-tube placed later today no V, D being seen by wound care nurse Exam/Review of Systems Vital Signs Vitals Vital Signs Date Time Temp Pulse Resp B/P Pulse Ox O2 Delivery O2 Flow Rate FiO2 01/22/17 09:38 Nasal Cannula 2.0 01/22/17 07:30 98.3 80 18 137/60 99 Intake and Output 01/21/17 01/21/17 01/22/17 15:00 23:00 07:00 Intake Total 1100 ml 600 ml Output Total 1300 ml 3000 ml Balance -200 ml -2400 ml Exam Constitutional: alert Respiratory: clear to auscultation Cardiovascular: regular rate and rhythm Gastrointestinal: non-tender, soft Extremities: other (L heal no surround redness, shallow ulcer without slough and some eschar around it) Results Result Diagram: 01/22/17 0530 01/22/17 0530 Results 24 hrs Laboratory Tests Test 01/21/17 12:15 01/21/17 12:31 01/21/17 18:30 01/21/17 19:07 Vancomycin Level Trough 14.6 Bedside Glucose 90 67 L 67 L Test 01/21/17 19:47 01/21/17 20:28 01/21/17 21:35 01/21/17 22:48 Bedside Glucose 69 L 74 119 89 Test 01/22/17 02:18 01/22/17 05:30 01/22/17 08:19 Bedside Glucose 89 127 White Blood Count 12.7 #H Red Blood Count 3.99 L Hemoglobin 10.9 L Hematocrit 34.4 L Mean Corpuscular Volume 86.2 Mean Corpuscular Hemoglobin 27.3 L Mean Corpuscular Hemoglobin Concent 31.7 L Red Cell Distribution Width 15.0 H Platelet Count 300 Mean Platelet Volume 10.1 Neutrophils % 53.5 Lymphocytes % 31.8 Monocytes % 9.0 Eosinophils % 2.1 Basophils % 0.6 Nucleated Red Blood Cells % 0.0 Neutrophils # (Manual) 6.8 Lymphocytes # 4.0 H Monocytes # 1.1 H Eosinophils # 0.3 Basophils # 0.1 Nucleated Red Blood Cells # 0.0 Sodium Level 140 Potassium Level 3.5 Chloride Level 105 Carbon Dioxide Level 31 Anion Gap 8 Blood Urea Nitrogen 7 Creatinine 0.59 Glucose Level 117 # Calcium Level 8.1 L Total Bilirubin 0.2 Direct Bilirubin 0.00 Indirect Bilirubin 0.2 Aspartate Amino Transf (AST/SGOT) 54 H Alanine Aminotransferase (ALT/SGPT) 42 Alkaline Phosphatase 138 H Total Protein 5.9 L Albumin 2.4 L Globulin 3.50 H Albumin/Globulin Ratio 0.68 Medications Medications Current Medications Ondansetron HCl (Zofran Inj) 4 mg Q6H PRN IV NAUSEA AND/OR VOMITING; Start at 16:30 Acetaminophen (Tylenol Tab) 650 mg Q6H PRN PO PAIN LEVEL 1-3 OR FEVER Last administered on 01/17/17 06:40; Admin Dose 650 MG; Start 01/15/17 at 16:30 Magnesium Hydroxide (Milk Of Mag) 30 ml DAILY PRN PO CONSTIPATION; Start at 16:30 Aspirin (Halfprin) 81 mg DAILY PO Last administered on 01/21/17 10:22; Admin Dose 81 MG; Start 01/16/17 at 09:00 Losartan Potassium (Cozaar) 100 mg BID PO Last administered on 01/22/17 08:31; Admin Dose 100 MG; Start 01/15/17 at 21:00 Montelukast Sodium (Singulair) 10 mg QHS PO Last administered on 01/21/17 20: 30; Admin Dose 10 MG; Start 01/15/17 at 21:00 IV Flush (NS 10 ml) 10 ml PRN PRN IV IV PROTOCOL; Start 01/15/17 at 18:30 Miscellaneous Information 1 ea NOTE XX ; Start 01/15/17 at 19:00 Glucose (Glutose) 15 gm Q15M PRN PO DECREASED GLUCOSE; Start 01/15/17 at 19:00 Glucose (Glutose) 22.5 gm Q15M PRN PO DECREASED GLUCOSE; Start 01/15/17 at 19: 00 Dextrose (D50w Syringe) 25 ml Q15M PRN IV DECREASED GLUCOSE Last administered on 01/21/17 20:37; Admin Dose 25 ML; Start 01/15/17 at 19:00 Dextrose (D50w Syringe) 50 ml Q15M PRN IV DECREASED GLUCOSE; Start 01/15/17 at 19:00 Glucagon (Glucagen) 1 mg Q15M PRN IM DECREASED GLUCOSE; Start 01/15/17 at 19:00 Glucose (Glutose) 15 gm Q15M PRN BUCCAL DECREASED GLUCOSE Last administered on 01/21/17 19:53; Admin Dose 15 GM; Start 01/15/17 at 19:00 Diagnostic Test (Pha) (Accu-Chek) 1 ea 02 XX Last administered on 01/22/17 02: 19; Admin Dose 1 EA; Start 01/16/17 at 02:00 Clonidine (Catapres) 0.1 mg Q6H PRN PO BLOOD PRESSURE SBP>160 Last administered on 01/16/17 23:42; Admin Dose 0.1 MG; Start 01/15/17 at 20:30 Miscellaneous Information (Pending Santyl Order For Wound Care) This patient jean baptiste... PRN PRN XX WOUND CARE; Start 01/15/17 at 22:00 Collagenase (Santyl) 1 applic DAILY TOP Last administered on 01/22/17 09:00; Admin Dose 1 APPLIC; Start 01/16/17 at 21:00 Hydralazine HCl (Apresoline) 10 mg Q6 PRN IV ELEVATED BLOOD PRESSURE Last administered on 01/17/17 03:05; Admin Dose 10 MG; Start 01/17/17 at 03:00 Acetaminophen (Tylenol Supp) 650 mg Q6H PRN [place] FEVER GREATER THAN 100.6 Last administered on 01/17/17 07:26; Admin Dose 650 MG; Start 01/17/17 at 07:00 Mupirocin (Bactroban) 1 applic BID TOP Last administered on 01/22/17 09:00; Admin Dose 1 APPLIC; Start 01/17/17 at 11:00 Enoxaparin Sodium (Lovenox) 65 mg Q12 SC Last administered on 01/21/17 20:33; Admin Dose 65 MG; Start 01/17/17 at 21:00 Ferrous Sulfate (Slow Fe) 142 mg DAILY PO Last administered on 01/22/17 08:30; Admin Dose 142 MG; Start 01/18/17 at 14:30 Calcium Carbonate (Tums) 500 mg BID PO Last administered on 01/22/17 08:30; Admin Dose 500 MG; Start 01/18/17 at 14:30 Nystatin (Nystatin Powder) 1 applic BID TOP Last administered on 01/22/17 09:00 ; Admin Dose 1 APPLIC; Start 01/18/17 at 21:00 Sodium Hypochlorite (Dakin'S (1/4 Strength)) 1 applic BID IRR Last administered on 01/20/17 15:15; Admin Dose 1 APPLIC; Start 01/18/17 at 21:00 Acetaminophen/ Hydrocodone Bitart ([place] (5/325)) 1 tab Q4H PRN PO PAIN LEVEL 4 -7; Start 01/19/17 at 12:00 Acetaminophen/ Hydrocodone Bitart ([place] (5/325)) 2 tab Q4H PRN PO PAIN LEVEL 7 -10; Start 01/19/17 at 12:00 Docusate Sodium (Colace) 100 mg BID PRN PO CONSTIPATION; Start 01/19/17 at 12: 00 Bisacodyl (Dulcolax Supp) 10 mg BID PRN [place] CONSTIPATION; Start 01/19/17 at 12: 00 Sodium Biphosphate/ Sodium Phosphate 133 ml 133 ml BID PRN [place] CONSTIPATION; Start 01/19/17 at 12:00 Meropenem/Sodium Chloride (Merrem 1 Gm/50 ml (Pmx)) 50 ml @ 200 mls/hr Q8 IVPB Last administered on 01/22/17 05:23; Admin Dose 200 MLS/HR; Start 01/19/17 at 15:00 Famotidine (Pepcid) 20 mg DAILY PO Last administered on 01/22/17 08:30; Admin Dose 20 MG; Start 01/21/17 at 09:00 Hydromorphone HCl (Dilaudid) 3 mg Q3H PRN IV PAIN Last administered on 10:21; Admin Dose 3 MG; Start 01/20/17 at 23:00 Hydromorphone HCl (Dilaudid) 2 mg Q2H PRN IV PAIN Last administered on 08:29; Admin Dose 2 MG; Start 01/20/17 at 23:00 Zolpidem Tartrate (Ambien) 10 mg HS PRN PO INSOMNIA Last administered on 22:48; Admin Dose 10 MG; Start 01/21/17 at 13:30 IV Flush 10 ml 10 ml PRN PRN IV IV PROTOCOL; Start 01/21/17 at 19:00 Vancomycin HCl (Vancocin) 250 ml @ 125 mls/hr Q24H IVPB ; Start 01/22/17 at 15: 00 Insulin Human NPH 10 unit 10 unit BID@08,20 SC Last administered on 01/22/17 08 :28; Admin Dose 10 UNIT; Start 01/22/17 at 08:00 Potassium Chloride/Dextrose/ Sod Cl (D5-1/2ns + KCl 20 Meq) 1,000 ml @ 100 mls/ hr Q10H IV Last administered on 9/1/17at 09:00; Admin Dose 100 MLS/HR; Start at 23:00 ANTHONY WOODARD MD Jan 22, 2017 12:09
--- NOTE | 2017-01-22 13:26 | CONS ---
Date/Time of Note Date/Time of Note DATE: 01/22/17 TIME: 13:18 Assessment/Plan Assessment/Plan Additional Assessment/Plan Sacral decubiti DVT of left upper extremity History of paroxysmal atrial fibrillation Preserved ejection fraction Peripheral arterial disease -Cardiology consultation was requested for assistance with anticoagulation management. Patient history of paroxysmal atrial fibrillation on previous admission when the patient was septic in the ICU and intubated. Afterwards, no further atrial fibrillation and patient remained in sinus rhythm. Of note, patient currently with DVT of the left upper extremity and did have a PICC line at that site. This was just removed and placed in the right upper extremity. Patient currently on subcutaneous Lovenox. This could be continued in the interim given patient planned for PEG placement. Once no further procedures are planned, patient could be transitioned to oral anticoagulant. Based on patient's current weight, creatinine and age, would recommend Eliquis 5 mg p.o. twice daily with stopping subcutaneous Lovenox at that time. Consultation Date/Type/Reason Admit Date/Time Jan 15, 2017 at 14:33 Initial Consult Date 01/19/17 Type of Consultation: cv Referring Provider: RIDGE MATTHEWS MD 24 HR Interval Summary Free Text/Dictation Patient seen and examined. Denies shortness of breath Exam/Review of Systems Vital Signs Vitals Vital Signs Date Time Temp Pulse Resp B/P Pulse Ox O2 Delivery O2 Flow Rate FiO2 01/22/17 09:38 Nasal Cannula 2.0 01/22/17 07:30 98.3 80 18 137/60 99 Intake and Output 01/21/17 01/21/17 01/22/17 15:00 23:00 07:00 Intake Total 1100 ml 600 ml Output Total 1300 ml 3000 ml Balance -200 ml -2400 ml Exam Sleeping but arousable, follows commands Head: normocephalic Respiratory: other (Coarse breath sounds bilaterally, no wheezing) Cardiovascular: other (S1-S2 heard), regular rate and rhythm Gastrointestinal: bowel sounds, non-tender, soft Extremities: edema (Trace), other (Amputation) Results Result Diagram: 01/22/17 0530 01/22/17 0530 Results 24 hrs Laboratory Tests Test 01/21/17 18:30 01/21/17 19:07 01/21/17 19:47 01/21/17 20:28 Bedside Glucose 67 L 67 L 69 L 74 Test 01/21/17 21:35 01/21/17 22:48 01/22/17 02:18 01/22/17 05:30 Bedside Glucose 119 89 89 White Blood Count 12.7 #H Red Blood Count 3.99 L Hemoglobin 10.9 L Hematocrit 34.4 L Mean Corpuscular Volume 86.2 Mean Corpuscular Hemoglobin 27.3 L Mean Corpuscular Hemoglobin Concent 31.7 L Red Cell Distribution Width 15.0 H Platelet Count 300 Mean Platelet Volume 10.1 Neutrophils % 53.5 Lymphocytes % 31.8 Monocytes % 9.0 Eosinophils % 2.1 Basophils % 0.6 Nucleated Red Blood Cells % 0.0 Neutrophils # (Manual) 6.8 Lymphocytes # 4.0 H Monocytes # 1.1 H Eosinophils # 0.3 Basophils # 0.1 Nucleated Red Blood Cells # 0.0 Sodium Level 140 Potassium Level 3.5 Chloride Level 105 Carbon Dioxide Level 31 Anion Gap 8 Blood Urea Nitrogen 7 Creatinine 0.59 Glucose Level 117 # Calcium Level 8.1 L Total Bilirubin 0.2 Direct Bilirubin 0.00 Indirect Bilirubin 0.2 Aspartate Amino Transf (AST/SGOT) 54 H Alanine Aminotransferase (ALT/SGPT) 42 Alkaline Phosphatase 138 H Total Protein 5.9 L Albumin 2.4 L Globulin 3.50 H Albumin/Globulin Ratio 0.68 Test 01/22/17 08:19 01/22/17 12:46 Bedside Glucose 127 129 Medications Medications Current Medications Ondansetron HCl (Zofran Inj) 4 mg Q6H PRN IV NAUSEA AND/OR VOMITING; Start at 16:30 Acetaminophen (Tylenol Tab) 650 mg Q6H PRN PO PAIN LEVEL 1-3 OR FEVER Last administered on 01/17/17 06:40; Admin Dose 650 MG; Start 01/15/17 at 16:30 Magnesium Hydroxide (Milk Of Mag) 30 ml DAILY PRN PO CONSTIPATION; Start at 16:30 Aspirin (Halfprin) 81 mg DAILY PO Last administered on 01/21/17 10:22; Admin Dose 81 MG; Start 01/16/17 at 09:00 Losartan Potassium (Cozaar) 100 mg BID PO Last administered on 01/22/17 08:31; Admin Dose 100 MG; Start 01/15/17 at 21:00 Montelukast Sodium (Singulair) 10 mg QHS PO Last administered on 01/21/17 20: 30; Admin Dose 10 MG; Start 01/15/17 at 21:00 IV Flush (NS 10 ml) 10 ml PRN PRN IV IV PROTOCOL; Start 01/15/17 at 18:30 Miscellaneous Information 1 ea NOTE XX ; Start 01/15/17 at 19:00 Glucose (Glutose) 15 gm Q15M PRN PO DECREASED GLUCOSE; Start 01/15/17 at 19:00 Glucose (Glutose) 22.5 gm Q15M PRN PO DECREASED GLUCOSE; Start 01/15/17 at 19: 00 Dextrose (D50w Syringe) 25 ml Q15M PRN IV DECREASED GLUCOSE Last administered on 01/21/17 20:37; Admin Dose 25 ML; Start 01/15/17 at 19:00 Dextrose (D50w Syringe) 50 ml Q15M PRN IV DECREASED GLUCOSE; Start 01/15/17 at 19:00 Glucagon (Glucagen) 1 mg Q15M PRN IM DECREASED GLUCOSE; Start 01/15/17 at 19:00 Glucose (Glutose) 15 gm Q15M PRN BUCCAL DECREASED GLUCOSE Last administered on 01/21/17 19:53; Admin Dose 15 GM; Start 01/15/17 at 19:00 Diagnostic Test (Pha) (Accu-Chek) 1 ea 02 XX Last administered on 01/22/17 02: 19; Admin Dose 1 EA; Start 01/16/17 at 02:00 Clonidine (Catapres) 0.1 mg Q6H PRN PO BLOOD PRESSURE SBP>160 Last administered on 01/16/17 23:42; Admin Dose 0.1 MG; Start 01/15/17 at 20:30 Miscellaneous Information (Pending Santyl Order For Wound Care) This patient jean baptiste... PRN PRN XX WOUND CARE; Start 01/15/17 at 22:00 Collagenase (Santyl) 1 applic DAILY TOP Last administered on 01/22/17 09:00; Admin Dose 1 APPLIC; Start 01/16/17 at 21:00 Hydralazine HCl (Apresoline) 10 mg Q6 PRN IV ELEVATED BLOOD PRESSURE Last administered on 01/17/17 03:05; Admin Dose 10 MG; Start 01/17/17 at 03:00 Acetaminophen (Tylenol Supp) 650 mg Q6H PRN SC FEVER GREATER THAN 100.6 Last administered on 01/17/17 07:26; Admin Dose 650 MG; Start 01/17/17 at 07:00 Mupirocin (Bactroban) 1 applic BID TOP Last administered on 01/22/17 09:00; Admin Dose 1 APPLIC; Start 01/17/17 at 11:00 Enoxaparin Sodium (Lovenox) 65 mg Q12 SC Last administered on 01/21/17 20:33; Admin Dose 65 MG; Start 01/17/17 at 21:00 Ferrous Sulfate (Slow Fe) 142 mg DAILY PO Last administered on 01/22/17 08:30; Admin Dose 142 MG; Start 01/18/17 at 14:30 Calcium Carbonate (Tums) 500 mg BID PO Last administered on 01/22/17 08:30; Admin Dose 500 MG; Start 01/18/17 at 14:30 Nystatin (Nystatin Powder) 1 applic BID TOP Last administered on 01/22/17 09:00 ; Admin Dose 1 APPLIC; Start 01/18/17 at 21:00 Sodium Hypochlorite (Dakin'S (1/4 Strength)) 1 applic BID IRR Last administered on 01/20/17 15:15; Admin Dose 1 APPLIC; Start 01/18/17 at 21:00 Acetaminophen/ Hydrocodone Bitart ([place] (5/325)) 1 tab Q4H PRN PO PAIN LEVEL 4 -7; Start 01/19/17 at 12:00 Acetaminophen/ Hydrocodone Bitart ([place] (5/325)) 2 tab Q4H PRN PO PAIN LEVEL 7 -10; Start 01/19/17 at 12:00 Docusate Sodium (Colace) 100 mg BID PRN PO CONSTIPATION; Start 01/19/17 at 12: 00 Bisacodyl (Dulcolax Supp) 10 mg BID PRN SC CONSTIPATION; Start 01/19/17 at 12: 00 Sodium Biphosphate/ Sodium Phosphate 133 ml 133 ml BID PRN SC CONSTIPATION; Start 01/19/17 at 12:00 Meropenem/Sodium Chloride (Merrem 1 Gm/50 ml (Pmx)) 50 ml @ 200 mls/hr Q8 IVPB Last administered on 01/22/17 05:23; Admin Dose 200 MLS/HR; Start 01/19/17 at 15:00 Famotidine (Pepcid) 20 mg DAILY PO Last administered on 01/22/17 08:30; Admin Dose 20 MG; Start 01/21/17 at 09:00 Hydromorphone HCl (Dilaudid) 3 mg Q3H PRN IV PAIN Last administered on 10:21; Admin Dose 3 MG; Start 01/20/17 at 23:00 Hydromorphone HCl (Dilaudid) 2 mg Q2H PRN IV PAIN Last administered on 08:29; Admin Dose 2 MG; Start 01/20/17 at 23:00 Zolpidem Tartrate (Ambien) 10 mg HS PRN PO INSOMNIA Last administered on 22:48; Admin Dose 10 MG; Start 01/21/17 at 13:30 IV Flush 10 ml 10 ml PRN PRN IV IV PROTOCOL; Start 01/21/17 at 19:00 Vancomycin HCl (Vancocin) 250 ml @ 125 mls/hr Q24H IVPB ; Start 01/22/17 at 15: 00 Insulin Human NPH 10 unit 10 unit BID@08,20 SC Last administered on 01/22/17 08 :28; Admin Dose 10 UNIT; Start 01/22/17 at 08:00 Potassium Chloride/Dextrose/ Sod Cl (D5-1/2ns + KCl 20 Meq) 1,000 ml @ 100 mls/ hr Q10H IV Last administered on 01/22/17 09:00; Admin Dose 100 MLS/HR; Start at 23:00 Tucker Jacome DO Jan 22, 2017 13:26
--- NOTE | 2017-01-22 13:46 | PN ---
Date/Time of Note Date/Time of Note DATE: 01/22/17 TIME: 13:45 Assessment/Plan Lines/Catheters IV Catheter Type (from Nrsg): PICC Line Sullivan in Place (from Nrsg): Yes Assessment/Plan Assessment/Plan [facility] Progress Note Date of Service: 01/22/17 Today's Impression & Plan: Overall doing well post op without major issues. No major wound problems. No indication for acute surgical intervention. Wound vac likely Tue. With above assessment, I've recommended the following for today: 1. Cont dressing changes 2. Agree with importance of nutrition 3. Wound vac Tue Nature of presenting problem: High complexity Thank you again for your great care of this very pleasant patient and wonderful family. If there are any questions, please feel free to call me at [phone]. Disclaimer: Inadvertent spelling or grammatical errors are likely due to EHR/ dictation software use and do not reflect on the overall quality of patient care. Updated clinical summary: A very-pleasant but unfortunate 81-year-old lady with multiple comorbidities including diabetes mellitus complicated by left heel decubitus ulcer as well as right below the knee amputation and paroxysmal atrial fibrillation, presenting with stage IV decubitus ulcer overlying her sacrum. Comorbidities: 1. Infected stage IV sacral decubitus pressure ulcer with possible osteomyelitis of the coccyx; s/p excisional debridement with scissors of a 10 x 5 x 3.5 cm coccygeal and sacral decubitus ulcer and removal of 30 cm of tissue including small part of the coccyx bone (ostectomy, 1x1x1 cm) and down to muscle in the upper part of the ulcer area and application of 2 g of Micro Matrix paste 2. Diabetes mellitus complicated by left heel decubitus ulcer as well as right below the knee amputation 3. Paroxysmal atrial fibrillation 4. Left upper extremity DVT with superficial thrombosis 5. Hypertension 6. Aspiration pneumonia 7. Osteomyelitis at the posterior calcaneal margin, treated with meropenem and vancomycin 8. Severe malnutrition with prealbumin 3.1 after hydration and albumin of 1.5 9. Peripheral vascular disease 10. Dementia 11. BMI 27.5 Subjective: No major events or complaints; no major abd pain and under control with medications; no n/v/d; no sob or cp; + flatus; + BM; - activity Objective: Vitals: See below Exam: GENERAL: On exam, the patient was laying in bed and appeared to be comfortable and in no acute distress. ABDOMEN: Soft, nontender and nondistended. Incision dressings are clean, dry and intact without any evidence of erythema, edema, discharge, or hernia. There are no peritoneal signs or guarding. SKIN: Skin appears to be pink and feels warm to touch. NEUROLOGIC: Patient is awake, alert, and follows commands appropriately. Exam/Review of Systems Vital Signs Vitals Vital Signs Date Time Temp Pulse Resp B/P Pulse Ox O2 Delivery O2 Flow Rate FiO2 01/22/17 09:38 Nasal Cannula 2.0 01/22/17 07:30 98.3 80 18 137/60 99 Intake and Output 01/21/17 01/21/17 01/22/17 15:00 23:00 07:00 Intake Total 1100 ml 600 ml Output Total 1300 ml 3000 ml Balance -200 ml -2400 ml Results Result Diagram: 01/22/17 0530 01/22/17 0530 OMAR HINOJOSA M.D. Jan 22, 2017 13:46
[2017-01-22] MEDS ORDERED: VANCOMYCIN 1 GM in NS 250 ML IVPB SCH (15:00)
[2017-01-22] MEDS ORDERED: PROPOFOL 40 ML ONE (15:19)
[2017-01-22] MEDS ORDERED: LIDOCAINE 2% (SDV) 5 ML INJ ONE (15:20)
[2017-01-22] MEDS ORDERED: CEFAZOLIN 1 GM/50 ML (PMX) 50 ML IVPB ONE (15:27)
--- NOTE | 2017-01-22 15:53 | OPPN ---
Date/Time of Note Date/Time of Note DATE: 01/22/17 TIME: 15:48 Proc Note GI Procedure date: Jan 22, 2017 Pre-procedure Diagnosis Inability to take po Post-procedure Diagnosis s/p placement of # 20 [employer] PEG Operation Performed PEG Placement Surgeon: RODOLFO COHEN MD Anesthesia Type: MAC Anesthesiologist: JOSE WILEY Estimated blood loss: none Transfusion Required: no Specimen: none Complications: no Pt Condition post procedure: stable Disposition: PACU Procedure Description After informed consent had been obtained from the family, the patient was sedated per Dr. Wiley of Anesthesia Department. The Olympus VideoEndoscope was easily passed into the esophagus under direct vision. The stomach was entered. Erosions were noted. The pylorus was traversed. The duodenal bulb and second portion of the duodenum appeared normal. The instrument was removed to the stomach. Transilumination in the LUQ was noted. The area was cleaned with multiple washings with antiseptic solution and betadine. 2cc of 1% xylocaine was injected. The needle was seen in the gastric lumen. A 5mm scalpel incision was made. The Seldinger needle was passed into the gastric lumen. Guidewire was placed through the needle and was retrieved with snare. The endoscope and wire were removed through the patient's mouth. Over the guidewire the feeding tube assembly was passed. External bumper and feeding assembly were attached. Position of internal bumper was checked by reintroduction of the endoscope into the stomach. It was then removed. Patient tolerated the procedure well. RODOLFO COHEN MD Jan 22, 2017 15:53
[2017-01-22] MEDS ORDERED: FENTAnyl 50 MCG/ML VIAL ONE (16:14)
[2017-01-22] MEDS: FENTAnyl 50 MCG/ML VIAL IV PRN ×3 (16:55→17:45)
[2017-01-22] MEDS: MONTELUKAST 10 MG TAB PO SCH (21:36)
[2017-01-23] MEDS: HYDROmorphONE 2 MG/ML SYG IV PRN ×10 (00:49→23:43)
--- NOTE | 2017-01-23 01:34 | PN ---
Date/Time of Note Date/Time of Note DATE: 01/22/17 TIME: 21:22 Assessment/Plan VTE Prophylaxis VTE Prophylaxis Intervention: LMWH, other Lines/Catheters IV Catheter Type (from Nrs): PICC Line Central line still needed: Yes Urinary Cath still in place: Yes Reason Cath still needed: pres ulcer contaminated by urine Assessment/Plan Problems: (1) DVT of axillary vein, acute left Status: Acute Comment: patient now on Lovenox for this as well as a fib, plan to change to Eliquis once patient's G-tube feeding is stable (2) Sacral decubitus ulcer Status: Acute Comment: s/p debridement by Surgery and is on antibiotics per infectious disease. (3) Sepsis Status: Acute (4) Malnutrition Status: Chronic Comment: poor oral intake. Gtube placement today (5) Diabetes mellitus with insulin therapy Status: Chronic Comment: Continue to adjust insulin NPH with change in G tube feedings. Subjective 24 Hr Interval Summary Free Text/Dictation patient still sedated. Status post G-tube placement today. Exam/Review of Systems Vital Signs Vitals Vital Signs Date Time Temp Pulse Resp B/P Pulse Ox O2 Delivery O2 Flow Rate FiO2 01/22/17 20:00 Nasal Cannula 2.0 01/22/17 16:45 70 21 159/28 99 01/22/17 16:06 98.0 Intake and Output 01/22/17 01/22/17 01/23/17 15:00 23:00 07:00 Intake Total 250 ml 1000 ml Output Total 1600 ml Balance 250 ml -600 ml Exam Eyes: other Respiratory: clear to auscultation Cardiovascular: irregular rhythm Gastrointestinal: other Results Result Diagram: 01/22/17 0530 01/22/17 0530 Results 24 hrs Laboratory Tests Test 01/22/17 02:18 01/22/17 05:30 01/22/17 08:19 01/22/17 12:46 Bedside Glucose 89 127 129 White Blood Count 12.7 #H Red Blood Count 3.99 L Hemoglobin 10.9 L Hematocrit 34.4 L Mean Corpuscular Volume 86.2 Mean Corpuscular Hemoglobin 27.3 L Mean Corpuscular Hemoglobin Concent 31.7 L Red Cell Distribution Width 15.0 H Platelet Count 300 Mean Platelet Volume 10.1 Neutrophils % 53.5 Lymphocytes % 31.8 Monocytes % 9.0 Eosinophils % 2.1 Basophils % 0.6 Nucleated Red Blood Cells % 0.0 Neutrophils # (Manual) 6.8 Lymphocytes # 4.0 H Monocytes # 1.1 H Eosinophils # 0.3 Basophils # 0.1 Nucleated Red Blood Cells # 0.0 Sodium Level 140 Potassium Level 3.5 Chloride Level 105 Carbon Dioxide Level 31 Anion Gap 8 Blood Urea Nitrogen 7 Creatinine 0.59 Glucose Level 117 # Calcium Level 8.1 L Total Bilirubin 0.2 Direct Bilirubin 0.00 Indirect Bilirubin 0.2 Aspartate Amino Transf (AST/SGOT) 54 H Alanine Aminotransferase (ALT/SGPT) 42 Alkaline Phosphatase 138 H Total Protein 5.9 L Albumin 2.4 L Globulin 3.50 H Albumin/Globulin Ratio 0.68 Test 01/22/17 17:10 01/22/17 21:35 Bedside Glucose 184 227 H Medications Medications Current Medications Ondansetron HCl (Zofran Inj) 4 mg Q6H PRN IV NAUSEA AND/OR VOMITING; Start at 16:30 Acetaminophen (Tylenol Tab) 650 mg Q6H PRN PO PAIN LEVEL 1-3 OR FEVER Last administered on 01/17/17 06:40; Admin Dose 650 MG; Start 01/15/17 at 16:30 Magnesium Hydroxide (Milk Of Mag) 30 ml DAILY PRN PO CONSTIPATION; Start at 16:30 Aspirin (Halfprin) 81 mg DAILY PO Last administered on 01/21/17 10:22; Admin Dose 81 MG; Start 01/16/17 at 09:00 Losartan Potassium (Cozaar) 100 mg BID PO Last administered on 01/22/17 21:36; Admin Dose 100 MG; Start 01/15/17 at 21:00 Montelukast Sodium (Singulair) 10 mg QHS PO Last administered on 01/22/17 21:36 ; Admin Dose 10 MG; Start 01/15/17 at 21:00 IV Flush (NS 10 ml) 10 ml PRN PRN IV IV PROTOCOL; Start 01/15/17 at 18:30 Miscellaneous Information 1 ea NOTE XX ; Start 01/15/17 at 19:00 Glucose (Glutose) 15 gm Q15M PRN PO DECREASED GLUCOSE; Start 01/15/17 at 19:00 Glucose (Glutose) 22.5 gm Q15M PRN PO DECREASED GLUCOSE; Start 01/15/17 at 19: 00 Dextrose (D50w Syringe) 25 ml Q15M PRN IV DECREASED GLUCOSE Last administered on 01/21/17 20:37; Admin Dose 25 ML; Start 01/15/17 at 19:00 Dextrose (D50w Syringe) 50 ml Q15M PRN IV DECREASED GLUCOSE; Start 01/15/17 at 19:00 Glucagon (Glucagen) 1 mg Q15M PRN IM DECREASED GLUCOSE; Start 01/15/17 at 19:00 Glucose (Glutose) 15 gm Q15M PRN BUCCAL DECREASED GLUCOSE Last administered on 01/21/17 19:53; Admin Dose 15 GM; Start 01/15/17 at 19:00 Diagnostic Test (Pha) (Accu-Chek) 1 ea 02 XX Last administered on 01/22/17 02: 19; Admin Dose 1 EA; Start 01/16/17 at 02:00 Clonidine (Catapres) 0.1 mg Q6H PRN PO BLOOD PRESSURE SBP>160 Last administered on 01/16/17 23:42; Admin Dose 0.1 MG; Start 01/15/17 at 20:30 Miscellaneous Information (Pending Santyl Order For Wound Care) This patient jean baptiste... PRN PRN XX WOUND CARE; Start 01/15/17 at 22:00 Collagenase (Santyl) 1 applic DAILY TOP Last administered on 01/22/17 09:00; Admin Dose 1 APPLIC; Start 01/16/17 at 21:00 Hydralazine HCl (Apresoline) 10 mg Q6 PRN IV ELEVATED BLOOD PRESSURE Last administered on 01/17/17 03:05; Admin Dose 10 MG; Start 01/17/17 at 03:00 Acetaminophen (Tylenol Supp) 650 mg Q6H PRN AR FEVER GREATER THAN 100.6 Last administered on 01/17/17 07:26; Admin Dose 650 MG; Start 01/17/17 at 07:00 Mupirocin (Bactroban) 1 applic BID TOP Last administered on 01/22/17 21:52; Admin Dose 1 APPLIC; Start 01/17/17 at 11:00 Enoxaparin Sodium (Lovenox) 65 mg Q12 SC Last administered on 01/22/17 21:37; Admin Dose 65 MG; Start 01/17/17 at 21:00 Ferrous Sulfate (Slow Fe) 142 mg DAILY PO Last administered on 01/22/17 08:30; Admin Dose 142 MG; Start 01/18/17 at 14:30 Calcium Carbonate (Tums) 500 mg BID PO Last administered on 01/22/17 21:36; Admin Dose 500 MG; Start 01/18/17 at 14:30 Nystatin (Nystatin Powder) 1 applic BID TOP Last administered on 01/22/17 21:52 ; Admin Dose 1 APPLIC; Start 01/18/17 at 21:00 Sodium Hypochlorite (Dakin'S (1/4 Strength)) 1 applic BID IRR Last administered on 01/22/17 21:52; Admin Dose 1 APPLIC; Start 01/18/17 at 21:00 Acetaminophen/ Hydrocodone Bitart ([employer] (5/325)) 1 tab Q4H PRN PO PAIN LEVEL 4 -7; Start 01/19/17 at 12:00 Acetaminophen/ Hydrocodone Bitart ([employer] (5/325)) 2 tab Q4H PRN PO PAIN LEVEL 7 -10; Start 01/19/17 at 12:00 Docusate Sodium (Colace) 100 mg BID PRN PO CONSTIPATION; Start 01/19/17 at 12: 00 Bisacodyl (Dulcolax Supp) 10 mg BID PRN [place] CONSTIPATION; Start 01/19/17 at 12: 00 Sodium Biphosphate/ Sodium Phosphate 133 ml 133 ml BID PRN AR CONSTIPATION; Start 01/19/17 at 12:00 Meropenem/Sodium Chloride (Merrem 1 Gm/50 ml (Pmx)) 50 ml @ 200 mls/hr Q8 IVPB Last administered on 01/22/17 22:03; Admin Dose 200 MLS/HR; Start 01/19/17 at 15:00 Famotidine (Pepcid) 20 mg DAILY PO Last administered on 01/22/17 08:30; Admin Dose 20 MG; Start 01/21/17 at 09:00 Hydromorphone HCl (Dilaudid) 3 mg Q3H PRN IV PAIN Last administered on 10:21; Admin Dose 3 MG; Start 01/20/17 at 23:00 Hydromorphone HCl (Dilaudid) 2 mg Q2H PRN IV PAIN Last administered on 00:49; Admin Dose 2 MG; Start 01/20/17 at 23:00 Zolpidem Tartrate (Ambien) 10 mg HS PRN PO INSOMNIA Last administered on 22:48; Admin Dose 10 MG; Start 01/21/17 at 13:30 IV Flush 10 ml 10 ml PRN PRN IV IV PROTOCOL; Start 01/21/17 at 19:00 Vancomycin HCl (Vancocin) 250 ml @ 125 mls/hr Q24H IVPB Last administered on 17:12; Admin Dose 125 MLS/HR; Start 01/22/17 at 15:00 Insulin Human NPH 10 unit 10 unit BID@08,20 SC Last administered on 01/22/17 21 :38; Admin Dose 10 UNIT; Start 01/22/17 at 08:00 Potassium Chloride/Dextrose/ Sod Cl (D5-1/2ns + KCl 20 Meq) 1,000 ml @ 100 mls/ hr Q10H IV Last administered on 01/22/17 09:00; Admin Dose 100 MLS/HR; Start at 23:00 MARIYA DALTON MD Jan 23, 2017 01:34
[2017-01-23 02:00] VITALS: BP 131/50; RESP 19
[2017-01-23] MEDS: ACCU-CHEK XX SCH (02:00)
[2017-01-23] MEDS: D5W-0.45 NACL + KCL 20 MEQ 1,000 ML IV SCH ×2 (04:47→15:09)
[2017-01-23] MEDS: MEROPENEM 1 GM/50ML(PMX) 50 ML IVPB SCH ×3 (05:05→21:29)
[2017-01-23 05:19] LABS: BASOPHIL # 0.1 10^3/ul (0.0-0.1); BASOPHILS % 0.5 % (0.0-2.0); EOSINOPHILS # 0.5 10^3/ul (0.0-0.5); EOSINOPHILS % 3.4 % (0.0-7.0); HEMOGLOBIN 10.3 g/dl (12.0-16.0); LYMPHOCYTES # 3.4 10^3/ul (0.8-2.9); LYMPHOCYTES % 25.2 % (15.0-51.0); MEAN CORPUSCULAR HEMOGLOBIN 27.5 pg (29.0-33.0); MEAN CORPUSCULAR HGB CONC 32.2 g/dl (32.0-37.0); MEAN CORPUSCULAR VOLUME 85.3 fl (82.0-101.0); MEAN PLATELET VOLUME 9.5 fl (7.4-10.4); MONOCYTE # 0.9 10^3/ul (0.3-0.9); MONOCYTES % 6.9 % (0.0-11.0); NEUTROPHILS % 61.7 % (39.0-77.0); PLATELET COUNT 260 10^3/UL (140-415); RED BLOOD COUNT 3.75 10^6/ul (4.20-5.40); WHITE BLOOD COUNT 13.4 10^3/ul (4.8-10.8)
[2017-01-23 06:00] LABS: CALCIUM 6.1 mg/dl (8.4-10.2); CREATININE 0.39 mg/dl (0.44-1.00)
[2017-01-23 06:05] LABS: POTASSIUM 2.9 mmol/L (3.5-5.1)
[2017-01-23 08:14] VITALS: BP 128/58; RESP 21
[2017-01-23] MEDS: CALCIUM CARBONATE 500 MG CHEW TAB PO SCH ×2 (08:52→21:28)
[2017-01-23] MEDS: FAMOTIDINE 20 MG TAB PO SCH (08:53)
[2017-01-23] MEDS: ASPIRIN (EC) 81 MG TAB PO SCH (08:53)
[2017-01-23] MEDS: LOSARTAN 50 MG TAB PO SCH ×2 (08:54→21:28)
[2017-01-23] MEDS: FERROUS SULFATE (SR) 142 MG TAB PO SCH (08:55)
[2017-01-23] MEDS: ENOXAPARIN 100 MG/ML SYG SC SCH ×2 (08:57→21:32)
[2017-01-23] MEDS: NPH, HUMAN INSULIN ISOPHANE 3ML VIAL SC SCH ×2 (08:58→21:32)
[2017-01-23] MEDS: INSULIN ASPART [NOVOLOG] 3 ML PEN SC SCH ×7 (08:59→23:42)
[2017-01-23] MEDS: MUPIROCIN 2% 22 GM OINT TOP SCH ×3 (09:00→21:30)
[2017-01-23] MEDS: NYSTATIN 30 GM POWDER BTL TOP SCH ×3 (09:00→21:30)
[2017-01-23] MEDS: COLLAGENASE 30 GM TUBE TOP SCH ×2 (09:00→17:18)
[2017-01-23] MEDS: SODIUM HYPOCHLORITE 0.125% 473 ML BTL IRR SCH ×2 (09:01→21:30)
[2017-01-23 14:51] VITALS: BP 158/69; RESP 19
--- NOTE | 2017-01-23 15:07 | PN ---
Date/Time of Note Date/Time of Note DATE: 01/23/17 TIME: 15:06 Assessment/Plan Lines/Catheters IV Catheter Type (from Nrsg): PICC Line Sullivan in Place (from Nrsg): Yes Assessment/Plan Assessment/Plan [facility] Progress Note Date of Service: 01/23/17 Today's Impression & Plan: Overall doing well post op without major issues. No major wound problems. No indication for acute surgical intervention. Wound vac likely Tue. With above assessment, I've recommended the following for today: 1. Cont dressing changes 2. Cont PEG tube feeds 3. Wound vac Tue Nature of presenting problem: High complexity Thank you again for your great care of this very pleasant patient and wonderful family. If there are any questions, please feel free to call me at [phone]. Disclaimer: Inadvertent spelling or grammatical errors are likely due to EHR/ dictation software use and do not reflect on the overall quality of patient care. Updated clinical summary: A very-pleasant but unfortunate 81-year-old lady with multiple comorbidities including diabetes mellitus complicated by left heel decubitus ulcer as well as right below the knee amputation and paroxysmal atrial fibrillation, presenting with stage IV decubitus ulcer overlying her sacrum. Comorbidities: 1. Infected stage IV sacral decubitus pressure ulcer with possible osteomyelitis of the coccyx; s/p excisional debridement with scissors of a 10 x 5 x 3.5 cm coccygeal and sacral decubitus ulcer and removal of 30 cm of tissue including small part of the coccyx bone (ostectomy, 1x1x1 cm) and down to muscle in the upper part of the ulcer area and application of 2 g of Micro Matrix paste 2. Diabetes mellitus complicated by left heel decubitus ulcer as well as right below the knee amputation 3. Paroxysmal atrial fibrillation 4. Left upper extremity DVT with superficial thrombosis 5. Hypertension 6. Aspiration pneumonia 7. Osteomyelitis at the posterior calcaneal margin, treated with meropenem and vancomycin 8. Severe malnutrition with prealbumin 3.1 after hydration and albumin of 1.5 9. Peripheral vascular disease 10. Dementia 11. BMI 27.5 Subjective: No major events or complaints; no major abd pain and under control with medications; no n/v/d; no sob or cp; + flatus; + BM; - activity Objective: Vitals: See below Exam: GENERAL: On exam, the patient was laying in bed and appeared to be comfortable and in no acute distress. ABDOMEN: Soft, nontender and nondistended. Incision dressings are clean, dry and intact without any evidence of erythema, edema, discharge, or hernia. There are no peritoneal signs or guarding. PEG dressing clean and tube feeds ongoing. SKIN: Skin appears to be pink and feels warm to touch. NEUROLOGIC: Patient is arousable and follows simple commands appropriately. Exam/Review of Systems Vital Signs Vitals Vital Signs Date Time Temp Pulse Resp B/P Pulse Ox O2 Delivery O2 Flow Rate FiO2 01/23/17 14:51 99.1 82 19 158/69 97 01/23/17 12:57 Nasal Cannula 2.0 Intake and Output 01/22/17 01/22/17 01/23/17 15:00 23:00 07:00 Intake Total 250 ml 1300 ml 150 ml Output Total 1600 ml 1200 ml Balance 250 ml -300 ml -1050 ml Results Result Diagram: 01/23/17 0452 01/23/17 0452 OMAR HINOJOSA M.D. Jan 23, 2017 15:07
[2017-01-23] MEDS: MULTIVITAMINS 30 ML CUP GTB SCH (16:41)
[2017-01-23] MEDS: VANCOMYCIN 1 GM in NS 250 ML IVPB SCH (16:41)
[2017-01-23] MEDS: ZINC SULFATE 220 MG CAP GTB SCH (16:41)
--- NOTE | 2017-01-23 17:41 | CONS ---
Date/Time of Note Date/Time of Note DATE: 01/23/17 TIME: 17:20 Assessment/Plan Assessment/Plan Additional Assessment/Plan 1) progressive sacral ulcer, surrounding cellulitis await surgical input and debridement, consider MRI depending upon surgical eval wound cx to be obtained continue with vanco/merrem check ESR, CRP in a.m. 01/17 - proteus and another GNR in wound cx continue with merrem/vanco esr and CRP are moderately elevated mrsa to nares to start bactroban await surgical input pt is more awake today and able to answer some questions in maltese 01/18 - pt persistence of fever and elevated wbc is either due to an undrained abscess or inadequate antibiotics await wound care eval and surgical debridement will order MRI scan if no wound care is delivered by tomorrow wound cx has proteus, GNR and enterococcus continue with vanco/merrem at present 01/19 - wound cx are all sensitive to current antibiotics of vanco/merrem MRI of pelvis/abd was done but results not available pt to get debridement later this am. 01/20 - s/p debridement, some bone was shaved, MRI did not show osteo await path report continue with vanco/merrem fevers and WBC improved post debridement pt will need good nutrition to heal this wound, consider g-tube if pt not eating well 01/22 - pt to get g-tube for better nutrition continue with vanco/merrem thru 02/01/17 consider doxy for 2 weeks after that path specimen did not identify bone to examine for osteo 01/23 tube feeds are going; continue meropenem/vancomycin for now 2) L heal ulcer with eschar no surrounding redness noted on picture 3) PVD 4) recent hx of LUE DVT 5) HTN Consultation Date/Type/Reason Admit Date/Time Jan 15, 2017 at 14:33 Initial Consult Date 01/19/17 Type of Consultation: Infectious Diseases Referring Provider: RIDGE MATTHEWS MD 24 HR Interval Summary Free Text/Dictation PEG placed yesterday, increased TF rates a bit today. Elevated sugars earlier have improved today. No diarrhea. Requiring dilaudid q3 hours Exam/Review of Systems Vital Signs Vitals Vital Signs Date Time Temp Pulse Resp B/P Pulse Ox O2 Delivery O2 Flow Rate FiO2 01/23/17 14:51 99.1 82 19 158/69 97 01/23/17 12:57 Nasal Cannula 2.0 Intake and Output 01/22/17 01/22/17 01/23/17 15:00 23:00 07:00 Intake Total 250 ml 1300 ml 150 ml Output Total 1600 ml 1200 ml Balance 250 ml -300 ml -1050 ml Exam Constitutional: alert Respiratory: clear to auscultation Cardiovascular: regular rate and rhythm Gastrointestinal: non-tender, soft Extremities: other (L heal no surround redness, shallow ulcer without slough and some eschar around it) Results Result Diagram: 01/23/17 0452 01/23/17 0452 Results 24 hrs Laboratory Tests Test 01/22/17 21:35 01/23/17 03:04 01/23/17 04:52 01/23/17 08:34 Bedside Glucose 227 H 178 236 H White Blood Count 13.4 H Red Blood Count 3.75 L Hemoglobin 10.3 L Hematocrit 32.0 L Mean Corpuscular Volume 85.3 Mean Corpuscular Hemoglobin 27.5 L Mean Corpuscular Hemoglobin Concent 32.2 Red Cell Distribution Width 15.0 H Platelet Count 260 Mean Platelet Volume 9.5 Neutrophils % 61.7 Lymphocytes % 25.2 Monocytes % 6.9 Eosinophils % 3.4 Basophils % 0.5 Nucleated Red Blood Cells % 0.0 Neutrophils # (Manual) 8.3 H Lymphocytes # 3.4 H Monocytes # 0.9 Eosinophils # 0.5 Basophils # 0.1 Nucleated Red Blood Cells # 0.0 Sodium Level 139 Potassium Level 2.9 *L Chloride Level 109 Carbon Dioxide Level 27 Anion Gap 6 L Blood Urea Nitrogen 4 L Creatinine 0.39 L Glucose Level 147 Calcium Level 6.1 L Test 01/23/17 11:58 Bedside Glucose 245 H Medications Medications Current Medications Ondansetron HCl (Zofran Inj) 4 mg Q6H PRN IV NAUSEA AND/OR VOMITING; Start at 16:30 Acetaminophen (Tylenol Tab) 650 mg Q6H PRN PO PAIN LEVEL 1-3 OR FEVER Last administered on 01/17/17 06:40; Admin Dose 650 MG; Start 01/15/17 at 16:30 Magnesium Hydroxide (Milk Of Mag) 30 ml DAILY PRN PO CONSTIPATION; Start at 16:30 Aspirin (Halfprin) 81 mg DAILY PO Last administered on 01/23/17 08:53; Admin Dose 81 MG; Start 01/16/17 at 09:00 Losartan Potassium (Cozaar) 100 mg BID PO Last administered on 01/23/17 08:54; Admin Dose 100 MG; Start 01/15/17 at 21:00 Montelukast Sodium (Singulair) 10 mg QHS PO Last administered on 01/22/17 21:36 ; Admin Dose 10 MG; Start 01/15/17 at 21:00 IV Flush (NS 10 ml) 10 ml PRN PRN IV IV PROTOCOL; Start 01/15/17 at 18:30 Miscellaneous Information 1 ea NOTE XX ; Start 01/15/17 at 19:00 Glucose (Glutose) 15 gm Q15M PRN PO DECREASED GLUCOSE; Start 01/15/17 at 19:00 Glucose (Glutose) 22.5 gm Q15M PRN PO DECREASED GLUCOSE; Start 01/15/17 at 19: 00 Dextrose (D50w Syringe) 25 ml Q15M PRN IV DECREASED GLUCOSE Last administered on 01/21/17 20:37; Admin Dose 25 ML; Start 01/15/17 at 19:00 Dextrose (D50w Syringe) 50 ml Q15M PRN IV DECREASED GLUCOSE; Start 01/15/17 at 19:00 Glucagon (Glucagen) 1 mg Q15M PRN IM DECREASED GLUCOSE; Start 01/15/17 at 19:00 Glucose (Glutose) 15 gm Q15M PRN BUCCAL DECREASED GLUCOSE Last administered on 01/21/17 19:53; Admin Dose 15 GM; Start 01/15/17 at 19:00 Diagnostic Test (Pha) (Accu-Chek) 1 ea 02 XX Last administered on 01/22/17 02: 19; Admin Dose 1 EA; Start 01/16/17 at 02:00 Clonidine (Catapres) 0.1 mg Q6H PRN PO BLOOD PRESSURE SBP>160 Last administered on 01/16/17 23:42; Admin Dose 0.1 MG; Start 01/15/17 at 20:30 Miscellaneous Information (Pending Santyl Order For Wound Care) This patient jean baptiste... PRN PRN XX WOUND CARE; Start 01/15/17 at 22:00 Collagenase (Santyl) 1 applic DAILY TOP Last administered on 01/22/17 09:00; Admin Dose 1 APPLIC; Start 01/16/17 at 21:00 Hydralazine HCl (Apresoline) 10 mg Q6 PRN IV ELEVATED BLOOD PRESSURE Last administered on 01/17/17 03:05; Admin Dose 10 MG; Start 01/17/17 at 03:00 Acetaminophen (Tylenol Supp) 650 mg Q6H PRN [place] FEVER GREATER THAN 100.6 Last administered on 01/17/17 07:26; Admin Dose 650 MG; Start 01/17/17 at 07:00 Mupirocin (Bactroban) 1 applic BID TOP Last administered on 01/22/17 21:52; Admin Dose 1 APPLIC; Start 01/17/17 at 11:00 Enoxaparin Sodium (Lovenox) 65 mg Q12 SC Last administered on 01/23/17 08:57; Admin Dose 65 MG; Start 01/17/17 at 21:00 Ferrous Sulfate (Slow Fe) 142 mg DAILY PO Last administered on 01/22/17 08:30; Admin Dose 142 MG; Start 01/18/17 at 14:30 Calcium Carbonate (Tums) 500 mg BID PO Last administered on 01/23/17 08:52; Admin Dose 500 MG; Start 01/18/17 at 14:30 Nystatin (Nystatin Powder) 1 applic BID TOP Last administered on 01/22/17 21:52 ; Admin Dose 1 APPLIC; Start 01/18/17 at 21:00 Sodium Hypochlorite (Dakin'S (1/4 Strength)) 1 applic BID IRR Last administered on 01/23/17 09:01; Admin Dose 1 APPLIC; Start 01/18/17 at 21:00 Acetaminophen/ Hydrocodone Bitart ([place] (5/325)) 1 tab Q4H PRN PO PAIN LEVEL 4 -7; Start 01/19/17 at 12:00 Acetaminophen/ Hydrocodone Bitart ([place] (5/325)) 2 tab Q4H PRN PO PAIN LEVEL 7 -10; Start 01/19/17 at 12:00 Docusate Sodium (Colace) 100 mg BID PRN PO CONSTIPATION; Start 01/19/17 at 12: 00 Bisacodyl (Dulcolax Supp) 10 mg BID PRN [place] CONSTIPATION; Start 01/19/17 at 12: 00 Sodium Biphosphate/ Sodium Phosphate 133 ml 133 ml BID PRN [place] CONSTIPATION; Start 01/19/17 at 12:00 Meropenem/Sodium Chloride (Merrem 1 Gm/50 ml (Pmx)) 50 ml @ 200 mls/hr Q8 IVPB Last administered on 01/23/17 15:04; Admin Dose 200 MLS/HR; Start 01/19/17 at 15:00 Famotidine (Pepcid) 20 mg DAILY PO Last administered on 01/23/17 08:53; Admin Dose 20 MG; Start 01/21/17 at 09:00 Hydromorphone HCl (Dilaudid) 3 mg Q3H PRN IV PAIN Last administered on 10:21; Admin Dose 3 MG; Start 01/20/17 at 23:00 Hydromorphone HCl (Dilaudid) 2 mg Q2H PRN IV PAIN Last administered on 15:47; Admin Dose 2 MG; Start 01/20/17 at 23:00 Zolpidem Tartrate (Ambien) 10 mg HS PRN PO INSOMNIA Last administered on 22:48; Admin Dose 10 MG; Start 01/21/17 at 13:30 IV Flush (NS 10 ml) 10 ml PRN PRN IV IV PROTOCOL; Start 01/21/17 at 19:00 Insulin Human NPH 10 unit 10 unit BID@08,20 SC Last administered on 01/23/17 08 :58; Admin Dose 10 UNIT; Start 01/22/17 at 08:00 Potassium Chloride/Dextrose/ Sod Cl 1,000 ml @ 100 mls/hr Q10H IV Last administered on 01/23/17 15:09; Admin Dose 100 MLS/HR; Start 01/21/17 at 23:00 Vancomycin HCl (Vancocin) 250 ml @ 125 mls/hr Q24H IVPB Last administered on 16:41; Admin Dose 125 MLS/HR; Start 01/23/17 at 17:00 Zinc Sulfate (Zinc Sulfate) 220 mg DAILY GTB Last administered on 01/23/17 16: 41; Admin Dose 220 MG; Start 01/23/17 at 15:30; Stop 02/05/17 at 09:01 Ascorbic Acid (Vitamin C) 500 mg BID GTB ; Start 01/23/17 at 21:00 Multivitamins (Multivitamin) 30 ml DAILY GTB Last administered on 01/23/17t 16: 41; Admin Dose 30 ML; Start 01/23/17 at 17:00 Insulin Aspart (Novolog Insulin Pen) NOVOLOG *MODERATE* ALGORITHM Q6 SC ; Start 01/23/17 at 18:00 ALBERTO LEMON Jan 23, 2017 17:30
[2017-01-23 20:00] VITALS: BP 140/59; RESP 19
[2017-01-23] MEDS: MONTELUKAST 10 MG TAB PO SCH (21:28)
[2017-01-23] MEDS: ASCORBIC ACID 500 MG TAB GTB SCH (21:28)
[2017-01-23] MEDS: ZOLPIDEM 5 MG TAB PO PRN (21:56)
[2017-01-23] MEDS: POTASSIUM CHLORIDE 20 MEQ POWDER FOR ORAL SOLN GTB SCH (22:48)
--- NOTE | 2017-01-23 23:26 | PN ---
DATE: 01/23/2017 SUBJECTIVE DATA: Patient complains of back pain, but controlled with the Dilaudid. OBJECTIVE DATA: VITAL SIGNS: T-max 99.1, now 98.6, pulse 86 and regular, respiratory rate 19, blood pressure 140/59, oxygen saturation 100 percent on 2 L. SKIN: Erythema, bilateral crura in inguinal line. CHEST: Clear to auscultation. HEART: Regular rate and rhythm. NEUROLOGIC: Nonfocal. LABORATORY EXAMINATION: Potassium 2.9, chloride 109, sodium 139, bicarb 27, BUN 4, creatinine 0.49, blood sugar 147, calcium 6.1. ASSESSMENT AND PLAN: 1. Hypokalemia. We will replace with 40 mEq per gastrostomy tube x2. 2. Diabetes. Continue to adjust insulin, especially in light of receiving gastrostomy tube feeds now. 3. Sacral decubitus. Continues to improve. Continue with antibiotics and dressing changes. 4. Sepsis due to sacral decubitus, improved. Continue with antibiotics. Patient did have elevated white count and mild fever earlier today. We will continue to monitor. 5. Deep venous thrombosis, stable. Continue with Lovenox. Dictated By: Sampson Duran MD /jose/jose manuel /Document#: [id number]
[2017-01-24] MEDS: D5W-0.45 NACL + KCL 20 MEQ 1,000 ML IV SCH ×3 (01:00→18:26)
[2017-01-24 02:00] VITALS: BP 135/63; RESP 19
[2017-01-24] MEDS: ACCU-CHEK XX SCH (02:00)
[2017-01-24] MEDS: POTASSIUM CHLORIDE 20 MEQ POWDER FOR ORAL SOLN GTB SCH (02:32)
[2017-01-24] MEDS: HYDROmorphONE 2 MG/ML SYG IV PRN ×9 (02:32→21:30)
[2017-01-24] MEDS: MEROPENEM 1 GM/50ML(PMX) 50 ML IVPB SCH ×3 (05:22→22:01)
[2017-01-24] MEDS: INSULIN ASPART [NOVOLOG] 3 ML PEN SC SCH ×6 (05:26→18:19)
[2017-01-24 06:11] LABS: BASOPHIL # 0.1 10^3/ul (0.0-0.1); BASOPHILS % 0.5 % (0.0-2.0); EOSINOPHILS # 0.7 10^3/ul (0.0-0.5); EOSINOPHILS % 3.8 % (0.0-7.0); HEMOGLOBIN 9.8 g/dl (12.0-16.0); LYMPHOCYTES % 23.2 % (15.0-51.0); MEAN CORPUSCULAR HEMOGLOBIN 26.8 pg (29.0-33.0); MEAN CORPUSCULAR HGB CONC 31.6 g/dl (32.0-37.0); MEAN CORPUSCULAR VOLUME 84.9 fl (82.0-101.0); MEAN PLATELET VOLUME 10.3 fl (7.4-10.4); MONOCYTE # 1.1 10^3/ul (0.3-0.9); MONOCYTES % 6.6 % (0.0-11.0); NEUTROPHILS % 63.7 % (39.0-77.0); PLATELET COUNT 276 10^3/UL (140-415); RED BLOOD COUNT 3.65 10^6/ul (4.20-5.40); RED CELL DISTRIBUTION WIDTH 15.2 % (11.5-14.5); WHITE BLOOD COUNT 17.2 10^3/ul (4.8-10.8)
[2017-01-24 06:33] LABS: CALCIUM 7.8 mg/dl (8.4-10.2); CREATININE 0.53 mg/dl (0.44-1.00); MAGNESIUM 1.3 mg/dl (1.7-2.5); POTASSIUM 5.1 mmol/L (3.5-5.1)
[2017-01-24 08:00] VITALS: BP 134/72; RESP 18
--- NOTE | 2017-01-24 08:15 | CONS ---
Date/Time of Note Date/Time of Note DATE: 01/24/17 TIME: 08:11 Assessment/Plan Assessment/Plan Chief Complaint/Hosp Course Sacral decubiti DVT of left upper extremity History of paroxysmal atrial fibrillation Preserved ejection fraction Peripheral arterial disease Problems: Additional Assessment/Plan patient w s/p PEG without planning of further procedures at this time will stop lovenox will start eliquis at 5 bid Consultation Date/Type/Reason Admit Date/Time Jan 15, 2017 at 14:33 Initial Consult Date 01/19/17 Type of Consultation: cv Referring Provider: RIDGE MATTHEWS MD 24 HR Interval Summary Free Text/Dictation resting with family resting at bedside, no distress, comfortable Constitutional: disoriented, no complaints Exam/Review of Systems Vital Signs Vitals Vital Signs Date Time Temp Pulse Resp B/P Pulse Ox O2 Delivery O2 Flow Rate FiO2 01/24/17 02:00 97.5 90 19 135/63 01/23/17 20:00 100 01/23/17 20:00 Nasal Cannula 2.0 Intake and Output 01/23/17 01/23/17 01/24/17 15:00 23:00 07:00 Intake Total 1650 ml 1180 ml Output Total 800 ml Balance 1650 ml 380 ml Exam Constitutional: frail Head: atraumatic, normocephalic Neck: supple Respiratory: clear to auscultation Cardiovascular: regular rate and rhythm Gastrointestinal: soft Extremities: normal pulses Results Result Diagram: 01/24/17 0520 01/24/17 0520 Results 24 hrs Laboratory Tests Test 01/23/17 08:34 01/23/17 11:58 01/23/17 17:19 01/23/17 21:27 Bedside Glucose 236 H 245 H 151 187 Test 01/23/17 23:41 01/24/17 05:20 01/24/17 05:23 Bedside Glucose 146 128 White Blood Count 17.2 #H Red Blood Count 3.65 L Hemoglobin 9.8 L Hematocrit 31.0 L Mean Corpuscular Volume 84.9 Mean Corpuscular Hemoglobin 26.8 L Mean Corpuscular Hemoglobin Concent 31.6 L Red Cell Distribution Width 15.2 H Platelet Count 276 Mean Platelet Volume 10.3 Neutrophils % 63.7 Lymphocytes % 23.2 Monocytes % 6.6 Eosinophils % 3.8 Basophils % 0.5 Nucleated Red Blood Cells % 0.0 Neutrophils # (Manual) 11.0 H Lymphocytes # 4.0 H Monocytes # 1.1 H Eosinophils # 0.7 H Basophils # 0.1 Nucleated Red Blood Cells # 0.0 Sodium Level 135 Potassium Level 5.1 # Chloride Level 101 Carbon Dioxide Level 31 Anion Gap 8 Blood Urea Nitrogen 6 L Creatinine 0.53 Glucose Level 135 Calcium Level 7.8 L Magnesium Level 1.3 L Medications Medications Current Medications Ondansetron HCl (Zofran Inj) 4 mg Q6H PRN IV NAUSEA AND/OR VOMITING; Start at 16:30 Acetaminophen (Tylenol Tab) 650 mg Q6H PRN PO PAIN LEVEL 1-3 OR FEVER Last administered on 01/17/17 06:40; Admin Dose 650 MG; Start 01/15/17 at 16:30 Magnesium Hydroxide (Milk Of Mag) 30 ml DAILY PRN PO CONSTIPATION; Start at 16:30 Aspirin (Halfprin) 81 mg DAILY PO Last administered on 01/23/17 08:53; Admin Dose 81 MG; Start 01/16/17 at 09:00 Losartan Potassium (Cozaar) 100 mg BID PO Last administered on 01/23/17 21:28; Admin Dose 100 MG; Start 01/15/17 at 21:00 Montelukast Sodium (Singulair) 10 mg QHS PO Last administered on 01/23/17 21:28 ; Admin Dose 10 MG; Start 01/15/17 at 21:00 IV Flush (NS 10 ml) 10 ml PRN PRN IV IV PROTOCOL; Start 01/15/17 at 18:30 Miscellaneous Information 1 ea NOTE XX ; Start 01/15/17 at 19:00 Glucose (Glutose) 15 gm Q15M PRN PO DECREASED GLUCOSE; Start 01/15/17 at 19:00 Glucose (Glutose) 22.5 gm Q15M PRN PO DECREASED GLUCOSE; Start 01/15/17 at 19: 00 Dextrose (D50w Syringe) 25 ml Q15M PRN IV DECREASED GLUCOSE Last administered on 01/21/17 20:37; Admin Dose 25 ML; Start 01/15/17 at 19:00 Dextrose (D50w Syringe) 50 ml Q15M PRN IV DECREASED GLUCOSE; Start 01/15/17 at 19:00 Glucagon (Glucagen) 1 mg Q15M PRN IM DECREASED GLUCOSE; Start 01/15/17 at 19:00 Glucose (Glutose) 15 gm Q15M PRN BUCCAL DECREASED GLUCOSE Last administered on 01/21/17 19:53; Admin Dose 15 GM; Start 01/15/17 at 19:00 Diagnostic Test (Pha) (Accu-Chek) 1 ea 02 XX Last administered on 01/22/17 02: 19; Admin Dose 1 EA; Start 01/16/17 at 02:00 Clonidine (Catapres) 0.1 mg Q6H PRN PO BLOOD PRESSURE SBP>160 Last administered on 01/16/17 23:42; Admin Dose 0.1 MG; Start 01/15/17 at 20:30 Miscellaneous Information (Pending Santyl Order For Wound Care) This patient jean baptiste... PRN PRN XX WOUND CARE; Start 01/15/17 at 22:00 Collagenase (Santyl) 1 applic DAILY TOP Last administered on 01/23/17 17:18; Admin Dose 1 APPLIC; Start 01/16/17 at 21:00 Hydralazine HCl (Apresoline) 10 mg Q6 PRN IV ELEVATED BLOOD PRESSURE Last administered on 01/17/17 03:05; Admin Dose 10 MG; Start 01/17/17 at 03:00 Acetaminophen (Tylenol Supp) 650 mg Q6H PRN [place] FEVER GREATER THAN 100.6 Last administered on 01/17/17 07:26; Admin Dose 650 MG; Start 01/17/17 at 07:00 Mupirocin (Bactroban) 1 applic BID TOP Last administered on 01/23/17 21:30; Admin Dose 1 APPLIC; Start 01/17/17 at 11:00 Enoxaparin Sodium (Lovenox) 65 mg Q12 SC Last administered on 01/23/17 21:32; Admin Dose 65 MG; Start 01/17/17 at 21:00 Ferrous Sulfate (Slow Fe) 142 mg DAILY PO Last administered on 01/22/17 08:30; Admin Dose 142 MG; Start 01/18/17 at 14:30 Calcium Carbonate (Tums) 500 mg BID PO Last administered on 01/23/17 21:28; Admin Dose 500 MG; Start 01/18/17 at 14:30 Nystatin (Nystatin Powder) 1 applic BID TOP Last administered on 01/23/17 21:30 ; Admin Dose 1 APPLIC; Start 01/18/17 at 21:00 Sodium Hypochlorite (Dakin'S (1/4 Strength)) 1 applic BID IRR Last administered on 01/23/17 21:30; Admin Dose 1 APPLIC; Start 01/18/17 at 21:00 Acetaminophen/ Hydrocodone Bitart ([place] (5/325)) 1 tab Q4H PRN PO PAIN LEVEL 4 -7; Start 01/19/17 at 12:00 Acetaminophen/ Hydrocodone Bitart ([place] (5/325)) 2 tab Q4H PRN PO PAIN LEVEL 7 -10; Start 01/19/17 at 12:00 Docusate Sodium (Colace) 100 mg BID PRN PO CONSTIPATION; Start 01/19/17 at 12: 00 Bisacodyl (Dulcolax Supp) 10 mg BID PRN [place] CONSTIPATION; Start 01/19/17 at 12: 00 Sodium Biphosphate/ Sodium Phosphate 133 ml 133 ml BID PRN [place] CONSTIPATION; Start 01/19/17 at 12:00 Meropenem/Sodium Chloride (Merrem 1 Gm/50 ml (Pmx)) 50 ml @ 200 mls/hr Q8 IVPB Last administered on 01/24/17 05:22; Admin Dose 200 MLS/HR; Start 01/19/17 at 15:00 Famotidine (Pepcid) 20 mg DAILY PO Last administered on 01/23/17 08:53; Admin Dose 20 MG; Start 01/21/17 at 09:00 Hydromorphone HCl (Dilaudid) 3 mg Q3H PRN IV PAIN Last administered on 10:21; Admin Dose 3 MG; Start 01/20/17 at 23:00 Hydromorphone HCl (Dilaudid) 2 mg Q2H PRN IV PAIN Last administered on 06:43; Admin Dose 2 MG; Start 01/20/17 at 23:00 Zolpidem Tartrate (Ambien) 10 mg HS PRN PO INSOMNIA Last administered on 21:56; Admin Dose 10 MG; Start 01/21/17 at 13:30 IV Flush (NS 10 ml) 10 ml PRN PRN IV IV PROTOCOL; Start 01/21/17 at 19:00 Insulin Human NPH 10 unit 10 unit BID@08,20 SC Last administered on 01/23/17 21 :32; Admin Dose 10 UNIT; Start 01/22/17 at 08:00 Potassium Chloride/Dextrose/ Sod Cl 1,000 ml @ 100 mls/hr Q10H IV Last administered on 01/24/17 04:08; Admin Dose 100 MLS/HR; Start 01/21/17 at 23:00 Vancomycin HCl (Vancocin) 250 ml @ 125 mls/hr Q24H IVPB Last administered on 16:41; Admin Dose 125 MLS/HR; Start 01/23/17 at 17:00 Zinc Sulfate (Zinc Sulfate) 220 mg DAILY GTB Last administered on 01/23/17 16: 41; Admin Dose 220 MG; Start 01/23/17 at 15:30; Stop 02/05/17 at 09:01 Ascorbic Acid (Vitamin C) 500 mg BID GTB Last administered on 01/23/17 21:28; Admin Dose 500 MG; Start 01/23/17 at 21:00 Multivitamins (Multivitamin) 30 ml DAILY GTB Last administered on 01/23/17 16: 41; Admin Dose 30 ML; Start 01/23/17 at 17:00 Insulin Aspart (Novolog Insulin Pen) NOVOLOG *MODERATE* ALGORITHM Q6 SC Last administered on 01/23/17 17:21; Admin Dose 2 UNIT; Start 01/23/17 at 18:00 ALBERTO LYN MD Jan 24, 2017 08:14
--- NOTE | 2017-01-24 08:22 | EN ---
Date/Time of Note Date/Time of Note DATE: 01/24/17 TIME: 08:21 Event Note Cardiology Cardiology Event Note Will start eliquis 5 bid. EMR does not allow to place the order, pharmacy unable to fix electronic issue. Order verbally placed. ALBERTO LYN MD Jan 24, 2017 08:22
[2017-01-24] MEDS: APIXABAN 5 MG TABLET PO SCH ×2 (08:57→21:38)
[2017-01-24] MEDS: ZINC SULFATE 220 MG CAP GTB SCH (09:13)
[2017-01-24] MEDS: CALCIUM CARBONATE 500 MG CHEW TAB PO SCH ×2 (09:14→21:36)
[2017-01-24] MEDS: FERROUS SULFATE (SR) 142 MG TAB PO SCH (09:15)
[2017-01-24] MEDS: LOSARTAN 50 MG TAB PO SCH ×2 (09:15→21:38)
[2017-01-24] MEDS: ASCORBIC ACID 500 MG TAB GTB SCH ×2 (09:16→21:36)
[2017-01-24] MEDS: MULTIVITAMINS 30 ML CUP GTB SCH (09:16)
[2017-01-24] MEDS: FAMOTIDINE 20 MG TAB PO SCH (09:16)
[2017-01-24] MEDS: ASPIRIN (EC) 81 MG TAB PO SCH (09:16)
[2017-01-24] MEDS: NPH, HUMAN INSULIN ISOPHANE 3ML VIAL SC SCH ×2 (09:19→22:00)
[2017-01-24] MEDS ORDERED: MAGNESIUM SULFATE 2 GM/50 ML 50 ML IVPB ONE (10:00)
--- NOTE | 2017-01-24 10:44 | PN ---
DATE: 01/24/2017 SUBJECTIVE: The patient is sleeping peacefully. No complaints. OBJECTIVE: VITAL SIGNS: Temperature 99.1, pulse of 84, respirations 18, blood pressure 134/72, oxygen saturation 100 percent on 2 L. GENERAL: Well-developed female in no acute distress. Sleeping peacefully in bed. CHEST: Clear to auscultation. HEART: Regular rate and rhythm. ABDOMEN: G-tube site clean, dry, and intact. LABORATORY EXAMINATION: Sodium 135, potassium 5.1, chloride 101, bicarbonate 31, BUN 6, creatinine 0.53. Blood sugar 135, calcium 7.8, magnesium 1.3. White blood cell count 17.2, hemoglobin 9.8, hematocrit 31.0, platelets 276. ASSESSMENT AND PLAN: 1. Hypokalemia, improved. 2. Hypo magnesemia. We will give 2 g magnesium sulfate IV. 3. Sacral decubitus. Continues to improve. The patient does have elevated white count. Slight fever today. Continue with antibiotics and dressing changes. 4. Sepsis, due to sacral decubitus. Improved. The patient has elevated white count and slight fever today. We will need to re- culture. 5. Deep venous thrombosis, stable. Continue Lovenox. Dictated By: Sampson Duran MD /jose/[email or web address] /Document#: [id number]
--- NOTE | 2017-01-24 11:47 | PN ---
Date/Time of Note Date/Time of Note DATE: 01/24/17 TIME: 06:43 Assessment/Plan Lines/Catheters IV Catheter Type (from Nrsg): PICC Line Sullivan in Place (from Nrsg): Yes Assessment/Plan Assessment/Plan [facility] Progress Note Date of Service: 01/24/17 Today's Impression & Plan: Overall doing well post op without major issues. WBC rise noted. Likely multifactorial, but will need further monitoring and likely cultures. No major wound problems. No indication for acute surgical intervention. Wound vac likely Tue. Explained to patient's son and answered all questions. With above assessment, I've recommended the following for today: 1. Cont dressing changes 2. Cont PEG tube feeds 3. Wound vac Tue Nature of presenting problem: High complexity Thank you again for your great care of this very pleasant patient and wonderful family. If there are any questions, please feel free to call me at [phone]. Disclaimer: Inadvertent spelling or grammatical errors are likely due to EHR/ dictation software use and do not reflect on the overall quality of patient care. Updated clinical summary: A very-pleasant but unfortunate 81-year-old lady with multiple comorbidities including diabetes mellitus complicated by left heel decubitus ulcer as well as right below the knee amputation and paroxysmal atrial fibrillation, presenting with stage IV decubitus ulcer overlying her sacrum. Comorbidities: 1. Infected stage IV sacral decubitus pressure ulcer with possible osteomyelitis of the coccyx; s/p excisional debridement with scissors of a 10 x 5 x 3.5 cm coccygeal and sacral decubitus ulcer and removal of 30 cm of tissue including small part of the coccyx bone (ostectomy, 1x1x1 cm) and down to muscle in the upper part of the ulcer area and application of 2 g of Micro Matrix paste 2. Diabetes mellitus complicated by left heel decubitus ulcer as well as right below the knee amputation 3. Paroxysmal atrial fibrillation 4. Left upper extremity DVT with superficial thrombosis 5. Hypertension 6. Aspiration pneumonia 7. Osteomyelitis at the posterior calcaneal margin, treated with meropenem and vancomycin 8. Severe malnutrition with prealbumin 3.1 after hydration and albumin of 1.5 9. Peripheral vascular disease 10. Dementia 11. BMI 27.5 Subjective: No major events or complaints; no major abd pain and under control with medications; no n/v/d; no sob or cp; + flatus; + BM; - activity Objective: Vitals: See below Exam: GENERAL: On exam, the patient was laying in bed and appeared to be comfortable and in no acute distress. ABDOMEN: Soft, nontender and nondistended. Incision dressings are clean, dry and intact without any evidence of erythema, edema, discharge, or hernia. There are no peritoneal signs or guarding. PEG dressing clean and tube feeds ongoing. SKIN: Skin appears to be pink and feels warm to touch. NEUROLOGIC: Patient is arousable and follows simple commands appropriately. Exam/Review of Systems Vital Signs Vitals Vital Signs Date Time Temp Pulse Resp B/P Pulse Ox O2 Delivery O2 Flow Rate FiO2 01/24/17 08:00 99.1 84 18 134/72 100 01/23/17 20:00 Nasal Cannula 2.0 Intake and Output 01/23/17 01/23/17 01/24/17 14:59 22:59 06:59 Intake Total 1650 ml 1180 ml Output Total 800 ml Balance 1650 ml 380 ml Results Result Diagram: 01/24/17 0520 01/24/17 0520 OMAR HINOJOSA M.D. Jan 24, 2017 11:47
[2017-01-24 14:21] VITALS: BP 123/56; RESP 18
--- NOTE | 2017-01-24 16:10 | CONS ---
Date/Time of Note Date/Time of Note DATE: 01/24/17 TIME: 16:06 Assessment/Plan Assessment/Plan Additional Assessment/Plan 1) progressive sacral ulcer, surrounding cellulitis await surgical input and debridement, consider MRI depending upon surgical eval wound cx to be obtained continue with vanco/merrem check ESR, CRP in a.m. 01/17 - proteus and another GNR in wound cx continue with merrem/vanco esr and CRP are moderately elevated mrsa to nares to start bactroban await surgical input pt is more awake today and able to answer some questions in eritre[place] 01/18 - pt persistence of fever and elevated wbc is either due to an undrained abscess or inadequate antibiotics await wound care eval and surgical debridement will order MRI scan if no wound care is delivered by tomorrow wound cx has proteus, GNR and enterococcus continue with vanco/merrem at present 01/19 - wound cx are all sensitive to current antibiotics of vanco/merrem MRI of pelvis/abd was done but results not available pt to get debridement later this am. 01/20 - s/p debridement, some bone was shaved, MRI did not show osteo await path report continue with vanco/merrem fevers and WBC improved post debridement pt will need good nutrition to heal this wound, consider g-tube if pt not eating well 01/22 - pt to get g-tube for better nutrition continue with vanco/merrem thru 02/01/17 consider doxy for 2 weeks after that path specimen did not identify bone to examine for osteo 01/23 tube feeds are going; continue meropenem/vancomycin for now 01/24 - slight increase in WBC and temperature. Monitor overnight for now, continue vanco/kevin. Wound reviewed by surgery today and looks good. Planning for VAC this week 2) L heal ulcer with eschar no surrounding redness noted on picture 3) PVD 4) recent hx of LUE DVT 5) HTN Consultation Date/Type/Reason Admit Date/Time Jan 15, 2017 at 14:33 Initial Consult Date 01/19/17 Type of Consultation: Infectious Diseases Referring Provider: RIDGE MATTHEWS MD 24 HR Interval Summary Free Text/Dictation No significant events. Noted the WBC increase to 17 today from 13 and the temperatures are not in the febrile range but elevated to the 99s today. No significant events, noted no diarrhea Exam/Review of Systems Vital Signs Vitals Vital Signs Date Time Temp Pulse Resp B/P Pulse Ox O2 Delivery O2 Flow Rate FiO2 01/24/17 14:21 99.0 89 18 123/56 97 01/24/17 10:00 Nasal Cannula 2.0 Intake and Output 01/23/17 01/23/17 01/24/17 15:00 23:00 07:00 Intake Total 1650 ml 1180 ml Output Total 800 ml Balance 1650 ml 380 ml Results Result Diagram: 01/24/1720 01/24/17 0520 Results 24 hrs Laboratory Tests Test 01/23/17 17:19 01/23/17 21:27 01/23/17 23:41 01/24/17 05:20 Bedside Glucose 151 187 146 White Blood Count 17.2 #H Red Blood Count 3.65 L Hemoglobin 9.8 L Hematocrit 31.0 L Mean Corpuscular Volume 84.9 Mean Corpuscular Hemoglobin 26.8 L Mean Corpuscular Hemoglobin Concent 31.6 L Red Cell Distribution Width 15.2 H Platelet Count 276 Mean Platelet Volume 10.3 Neutrophils % 63.7 Lymphocytes % 23.2 Monocytes % 6.6 Eosinophils % 3.8 Basophils % 0.5 Nucleated Red Blood Cells % 0.0 Neutrophils # (Manual) 11.0 H Lymphocytes # 4.0 H Monocytes # 1.1 H Eosinophils # 0.7 H Basophils # 0.1 Nucleated Red Blood Cells # 0.0 Erythrocyte Sedimentation Rate 65 H Sodium Level 135 Potassium Level 5.1 # Chloride Level 101 Carbon Dioxide Level 31 Anion Gap 8 Blood Urea Nitrogen 6 L Creatinine 0.53 Glucose Level 135 Calcium Level 7.8 L Magnesium Level 1.3 L Test 01/24/17 05:23 01/24/17 09:07 01/24/17 11:54 Bedside Glucose 128 196 197 Medications Medications Current Medications Ondansetron HCl (Zofran Inj) 4 mg Q6H PRN IV NAUSEA AND/OR VOMITING; Start at 16:30 Acetaminophen (Tylenol Tab) 650 mg Q6H PRN PO PAIN LEVEL 1-3 OR FEVER Last administered on 01/17/17 06:40; Admin Dose 650 MG; Start 01/15/17 at 16:30 Magnesium Hydroxide (Milk Of Mag) 30 ml DAILY PRN PO CONSTIPATION Last administered on 01/24/17 09:15; Admin Dose 30 ML; Start 01/15/17 at 16:30 Aspirin (Halfprin) 81 mg DAILY PO Last administered on 01/24/17 09:16; Admin Dose 81 MG; Start 01/16/17 at 09:00 Losartan Potassium (Cozaar) 100 mg BID PO Last administered on 01/24/17 09:15; Admin Dose 100 MG; Start 01/15/17 at 21:00 Montelukast Sodium (Singulair) 10 mg QHS PO Last administered on 01/23/17 21:28 ; Admin Dose 10 MG; Start 01/15/17 at 21:00 IV Flush (NS 10 ml) 10 ml PRN PRN IV IV PROTOCOL; Start 01/15/17 at 18:30 Miscellaneous Information 1 ea NOTE XX ; Start 01/15/17 at 19:00 Glucose (Glutose) 15 gm Q15M PRN PO DECREASED GLUCOSE; Start 01/15/17 at 19:00 Glucose (Glutose) 22.5 gm Q15M PRN PO DECREASED GLUCOSE; Start 01/15/17 at 19: 00 Dextrose (D50w Syringe) 25 ml Q15M PRN IV DECREASED GLUCOSE Last administered on 01/21/17 20:37; Admin Dose 25 ML; Start 01/15/17 at 19:00 Dextrose (D50w Syringe) 50 ml Q15M PRN IV DECREASED GLUCOSE; Start 01/15/17 at 19:00 Glucagon (Glucagen) 1 mg Q15M PRN IM DECREASED GLUCOSE; Start 01/15/17 at 19:00 Glucose (Glutose) 15 gm Q15M PRN BUCCAL DECREASED GLUCOSE Last administered on 01/21/17 19:53; Admin Dose 15 GM; Start 01/15/17 at 19:00 Diagnostic Test (Pha) (Accu-Chek) 1 ea 02 XX Last administered on 01/22/17 02: 19; Admin Dose 1 EA; Start 01/16/17 at 02:00 Clonidine (Catapres) 0.1 mg Q6H PRN PO BLOOD PRESSURE SBP>160 Last administered on 01/16/17 23:42; Admin Dose 0.1 MG; Start 01/15/17 at 20:30 Miscellaneous Information (Pending [facility] Order For Wound Care) This patient jean baptiste... PRN PRN XX WOUND CARE; Start 01/15/17 at 22:00 Collagenase (Santyl) 1 applic DAILY TOP Last administered on 01/23/17 17:18; Admin Dose 1 APPLIC; Start 01/16/17 at 21:00 Hydralazine HCl (Apresoline) 10 mg Q6 PRN IV ELEVATED BLOOD PRESSURE Last administered on 01/17/17 03:05; Admin Dose 10 MG; Start 01/17/17 at 03:00 Acetaminophen (Tylenol Supp) 650 mg Q6H PRN [place] FEVER GREATER THAN 100.6 Last administered on 01/17/17 07:26; Admin Dose 650 MG; Start 01/17/17 at 07:00 Mupirocin (Bactroban) 1 applic BID TOP Last administered on 01/23/17 21:30; Admin Dose 1 APPLIC; Start 01/17/17 at 11:00 Ferrous Sulfate (Slow Fe) 142 mg DAILY PO Last administered on 01/24/17 09:15; Admin Dose 142 MG; Start 01/18/17 at 14:30 Calcium Carbonate (Tums) 500 mg BID PO Last administered on 01/24/17 09:14; Admin Dose 500 MG; Start 01/18/17 at 14:30 Nystatin (Nystatin Powder) 1 applic BID TOP Last administered on 01/23/17 21:30 ; Admin Dose 1 APPLIC; Start 01/18/17 at 21:00 Sodium Hypochlorite (Dakin'S (1/4 Strength)) 1 applic BID IRR Last administered on 01/23/17 21:30; Admin Dose 1 APPLIC; Start 01/18/17 at 21:00 Acetaminophen/ Hydrocodone Bitart ([place] (5/325)) 1 tab Q4H PRN PO PAIN LEVEL 4 -7; Start 01/19/17 at 12:00 Acetaminophen/ Hydrocodone Bitart ([place] (5/325)) 2 tab Q4H PRN PO PAIN LEVEL 7 -10; Start 01/19/17 at 12:00 Docusate Sodium (Colace) 100 mg BID PRN PO CONSTIPATION; Start 01/19/17 at 12: 00 Bisacodyl (Dulcolax Supp) 10 mg BID PRN [place] CONSTIPATION; Start 01/19/17 at 12: 00 Sodium Biphosphate/ Sodium Phosphate 133 ml 133 ml BID PRN [place] CONSTIPATION; Start 01/19/17 at 12:00 Meropenem/Sodium Chloride (Merrem 1 Gm/50 ml (Pmx)) 50 ml @ 200 mls/hr Q8 IVPB Last administered on 01/24/17 05:22; Admin Dose 200 MLS/HR; Start 01/19/17 at 15:00 Famotidine (Pepcid) 20 mg DAILY PO Last administered on 01/24/17 09:16; Admin Dose 20 MG; Start 01/21/17 at 09:00 Hydromorphone HCl (Dilaudid) 3 mg Q3H PRN IV PAIN Last administered on 10:21; Admin Dose 3 MG; Start 01/20/17 at 23:00 Hydromorphone HCl (Dilaudid) 2 mg Q2H PRN IV PAIN Last administered on 14:14; Admin Dose 2 MG; Start 01/20/17 at 23:00 Zolpidem Tartrate (Ambien) 10 mg HS PRN PO INSOMNIA Last administered on 21:56; Admin Dose 10 MG; Start 01/21/17 at 13:30 IV Flush (NS 10 ml) 10 ml PRN PRN IV IV PROTOCOL; Start 01/21/17 at 19:00 Insulin Human NPH 10 unit 10 unit BID@08,20 SC Last administered on 01/24/17 09 :19; Admin Dose 10 UNIT; Start 01/22/17 at 08:00 Potassium Chloride/Dextrose/ Sod Cl 1,000 ml @ 100 mls/hr Q10H IV Last administered on 01/24/17 04:08; Admin Dose 100 MLS/HR; Start 01/21/17 at 23:00 Vancomycin HCl (Vancocin) 250 ml @ 125 mls/hr Q24H IVPB Last administered on 16:41; Admin Dose 125 MLS/HR; Start 01/23/17 at 17:00 Zinc Sulfate (Zinc Sulfate) 220 mg DAILY GTB Last administered on 01/24/17 09: 13; Admin Dose 220 MG; Start 01/23/17 at 15:30; Stop 02/05/17 at 09:01 Ascorbic Acid (Vitamin C) 500 mg BID GTB Last administered on 01/24/17 09:16; Admin Dose 500 MG; Start 01/23/17 at 21:00 Multivitamins (Multivitamin) 30 ml DAILY GTB Last administered on 01/24/17 09: 16; Admin Dose 30 ML; Start 01/23/17 at 17:00 Insulin Aspart (Novolog Insulin Pen) NOVOLOG *MODERATE* ALGORITHM Q6 SC Last administered on 01/24/17 12:05; Admin Dose 4 UNIT; Start 01/23/17 at 18:00 Apixaban (Eliquis) 5 mg BID PO Last administered on 01/24/17 08:57; Admin Dose 5 MG; Start 01/24/17 at 09:00 Miscellaneous Information (*Rx Drug Level Order Reminder*) VANCOMYCIN TROUGH 01/25 AT 1600 ONCE ONCE XX ; Start 01/25/17 at 16:00; Stop 01/25/17 at 16:01 ALBERTO LEMON Jan 24, 2017 16:09
[2017-01-24] MEDS: COLLAGENASE 30 GM TUBE TOP SCH (18:15)
[2017-01-24] MEDS: MUPIROCIN 2% 22 GM OINT TOP SCH ×2 (18:15→21:40)
[2017-01-24] MEDS: NYSTATIN 30 GM POWDER BTL TOP SCH ×2 (18:15→21:40)
[2017-01-24] MEDS: SODIUM HYPOCHLORITE 0.125% 473 ML BTL IRR SCH ×2 (18:15→21:41)
[2017-01-24] MEDS: VANCOMYCIN 1 GM in NS 250 ML IVPB SCH (18:20)
[2017-01-24 20:00] VITALS: BP 119/53; RESP 20
[2017-01-24] MEDS: MONTELUKAST 10 MG TAB PO SCH (21:38)
[2017-01-25] MEDS: HYDROmorphONE 2 MG/ML SYG IV PRN ×9 (00:04→22:20)
[2017-01-25] MEDS: INSULIN ASPART [NOVOLOG] 3 ML PEN SC SCH ×8 (00:13→23:36)
[2017-01-25 02:00] VITALS: BP 130/58; RESP 19
[2017-01-25] MEDS: ACCU-CHEK XX SCH (02:00)
[2017-01-25] MEDS: MEROPENEM 1 GM/50ML(PMX) 50 ML IVPB SCH ×3 (05:36→22:19)
[2017-01-25 06:29] LABS: BASOPHIL # 0.1 10^3/ul (0.0-0.1); BASOPHILS % 0.5 % (0.0-2.0); EOSINOPHILS # 0.7 10^3/ul (0.0-0.5); EOSINOPHILS % 4.4 % (0.0-7.0); HEMATOCRIT 29.1 % (37.0-47.0); HEMOGLOBIN 9.2 g/dl (12.0-16.0); LYMPHOCYTES # 3.1 10^3/ul (0.8-2.9); LYMPHOCYTES % 19.8 % (15.0-51.0); MEAN CORPUSCULAR HEMOGLOBIN 27.6 pg (29.0-33.0); MEAN CORPUSCULAR HGB CONC 31.6 g/dl (32.0-37.0); MEAN CORPUSCULAR VOLUME 87.4 fl (82.0-101.0); MEAN PLATELET VOLUME 10.3 fl (7.4-10.4); MONOCYTE # 1.1 10^3/ul (0.3-0.9); MONOCYTES % 7.2 % (0.0-11.0); NEUTROPHILS % 65.8 % (39.0-77.0); PLATELET COUNT 267 10^3/UL (140-415); RED BLOOD COUNT 3.33 10^6/ul (4.20-5.40); RED CELL DISTRIBUTION WIDTH 15.4 % (11.5-14.5); WHITE BLOOD COUNT 15.8 10^3/ul (4.8-10.8)
--- NOTE | 2017-01-25 06:47 | CONS ---
Date/Time of Note Date/Time of Note DATE: 01/25/17 TIME: 06:45 Assessment/Plan Assessment/Plan Chief Complaint/Hosp Course 1) progressive sacral ulcer, surrounding cellulitis await surgical input and debridement, consider MRI depending upon surgical eval wound cx to be obtained continue with vanco/merrem check ESR, CRP in a.m. 01/17 - proteus and another GNR in wound cx continue with merrem/vanco esr and CRP are moderately elevated mrsa to nares to start bactroban await surgical input pt is more awake today and able to answer some questions in [place] 01/18 - pt persistence of fever and elevated wbc is either due to an undrained abscess or inadequate antibiotics await wound care eval and surgical debridement will order MRI scan if no wound care is delivered by tomorrow wound cx has proteus, GNR and enterococcus continue with vanco/merrem at present 01/19 - wound cx are all sensitive to current antibiotics of vanco/merrem MRI of pelvis/abd was done but results not available pt to get debridement later this am. 01/20 - s/p debridement, some bone was shaved, MRI did not show osteo await path report continue with vanco/merrem fevers and WBC improved post debridement pt will need good nutrition to heal this wound, consider g-tube if pt not eating well 01/22 - pt to get g-tube for better nutrition continue with vanco/merrem thru 02/01/17 consider doxy for 2 weeks after that path specimen did not identify bone to examine for osteo 01/25 - WBC improved today and ESR was down from 78 to 65 no new issues continue with vanco/merrrem at present thru 02/01 then po doxy for 2 weeks 2) L heal ulcer with eschar no surrounding redness noted on picture 3) PVD 4) recent hx of LUE DVT 5) HTN Problems: Consultation Date/Type/Reason Admit Date/Time Jan 15, 2017 at 14:33 Initial Consult Date 01/16/17 Type of Consultation: Infectious Diseases Referring Provider: RIDGE MATTHEWS MD 24 HR Interval Summary Free Text/Dictation spoke to nurse no new problems no diarrhea, tolerating TF Exam/Review of Systems Vital Signs Vitals Vital Signs Date Time Temp Pulse Resp B/P Pulse Ox O2 Delivery O2 Flow Rate FiO2 01/25/17 02:00 98.8 75 19 130/58 99 01/24/17 20:00 Nasal Cannula 2.0 Exam Constitutional: alert Respiratory: clear to auscultation Cardiovascular: regular rate and rhythm Gastrointestinal: non-tender, soft Results Result Diagram: 01/25/17 0532 01/24/17 0520 Results 24 hrs Laboratory Tests Test 01/24/17 09:07 01/24/17 11:54 01/24/17 18:08 01/24/17 21:57 Bedside Glucose 196 197 206 214 Test 01/25/17 00:11 01/25/17 05:32 01/25/17 06:21 Bedside Glucose 232 H 184 White Blood Count 15.8 H Red Blood Count 3.33 L Hemoglobin 9.2 L Hematocrit 29.1 L Mean Corpuscular Volume 87.4 Mean Corpuscular Hemoglobin 27.6 L Mean Corpuscular Hemoglobin Concent 31.6 L Red Cell Distribution Width 15.4 H Platelet Count 267 Mean Platelet Volume 10.3 Neutrophils % 65.8 Lymphocytes % 19.8 Monocytes % 7.2 Eosinophils % 4.4 Basophils % 0.5 Nucleated Red Blood Cells % 0.0 Neutrophils # (Manual) 10.4 H Lymphocytes # 3.1 H Monocytes # 1.1 H Eosinophils # 0.7 H Basophils # 0.1 Nucleated Red Blood Cells # 0.0 Medications Medications Current Medications Ondansetron HCl (Zofran Inj) 4 mg Q6H PRN IV NAUSEA AND/OR VOMITING; Start at 16:30 Acetaminophen (Tylenol Tab) 650 mg Q6H PRN PO PAIN LEVEL 1-3 OR FEVER Last administered on 01/17/17 06:40; Admin Dose 650 MG; Start 01/15/17 at 16:30 Magnesium Hydroxide (Milk Of Mag) 30 ml DAILY PRN PO CONSTIPATION Last administered on 01/24/17 09:15; Admin Dose 30 ML; Start 01/15/17 at 16:30 Aspirin (Halfprin) 81 mg DAILY PO Last administered on 01/24/17 09:16; Admin Dose 81 MG; Start 01/16/17 at 09:00 Losartan Potassium (Cozaar) 100 mg BID PO Last administered on 01/24/17 21:38; Admin Dose 100 MG; Start 01/15/17 at 21:00 Montelukast Sodium (Singulair) 10 mg QHS PO Last administered on 01/24/17 21:38 ; Admin Dose 10 MG; Start 01/15/17 at 21:00 IV Flush (NS 10 ml) 10 ml PRN PRN IV IV PROTOCOL; Start 01/15/17 at 18:30 Miscellaneous Information 1 ea NOTE XX ; Start 01/15/17 at 19:00 Glucose (Glutose) 15 gm Q15M PRN PO DECREASED GLUCOSE; Start 01/15/17 at 19:00 Glucose (Glutose) 22.5 gm Q15M PRN PO DECREASED GLUCOSE; Start 01/15/17 at 19: 00 Dextrose (D50w Syringe) 25 ml Q15M PRN IV DECREASED GLUCOSE Last administered on 01/21/17 20:37; Admin Dose 25 ML; Start 01/15/17 at 19:00 Dextrose (D50w Syringe) 50 ml Q15M PRN IV DECREASED GLUCOSE; Start 01/15/17 at 19:00 Glucagon (Glucagen) 1 mg Q15M PRN IM DECREASED GLUCOSE; Start 01/15/17 at 19:00 Glucose (Glutose) 15 gm Q15M PRN BUCCAL DECREASED GLUCOSE Last administered on 01/21/17 19:53; Admin Dose 15 GM; Start 01/15/17 at 19:00 Diagnostic Test (Pha) (Accu-Chek) 1 ea 02 XX Last administered on 01/22/17 02: 19; Admin Dose 1 EA; Start 01/16/17 at 02:00 Clonidine (Catapres) 0.1 mg Q6H PRN PO BLOOD PRESSURE SBP>160 Last administered on 01/16/17 23:42; Admin Dose 0.1 MG; Start 01/15/17 at 20:30 Miscellaneous Information (Pending Santyl Order For Wound Care) This patient jean baptiste... PRN PRN XX WOUND CARE; Start 01/15/17 at 22:00 Collagenase (Santyl) 1 applic DAILY TOP Last administered on 01/24/17 18:15; Admin Dose 1 APPLIC; Start 01/16/17 at 21:00 Hydralazine HCl (Apresoline) 10 mg Q6 PRN IV ELEVATED BLOOD PRESSURE Last administered on 01/17/17 03:05; Admin Dose 10 MG; Start 01/17/17 at 03:00 Acetaminophen (Tylenol Supp) 650 mg Q6H PRN [place] FEVER GREATER THAN 100.6 Last administered on 01/17/17 07:26; Admin Dose 650 MG; Start 01/17/17 at 07:00 Mupirocin (Bactroban) 1 applic BID TOP Last administered on 01/24/17 21:40; Admin Dose 1 APPLIC; Start 01/17/17 at 11:00 Ferrous Sulfate (Slow Fe) 142 mg DAILY PO Last administered on 01/24/17 09:15; Admin Dose 142 MG; Start 01/18/17 at 14:30 Calcium Carbonate (Tums) 500 mg BID PO Last administered on 01/24/17 21:36; Admin Dose 500 MG; Start 01/18/17 at 14:30 Nystatin (Nystatin Powder) 1 applic BID TOP Last administered on 01/24/17 21:40 ; Admin Dose 1 APPLIC; Start 01/18/17 at 21:00 Sodium Hypochlorite (Dakin'S (1/4 Strength)) 1 applic BID IRR Last administered on 01/24/17 21:41; Admin Dose 1 APPLIC; Start 01/18/17 at 21:00 Acetaminophen/ Hydrocodone Bitart ([place] (5/325)) 1 tab Q4H PRN PO PAIN LEVEL 4 -7; Start 01/19/17 at 12:00 Acetaminophen/ Hydrocodone Bitart ([place] (5/325)) 2 tab Q4H PRN PO PAIN LEVEL 7 -10; Start 01/19/17 at 12:00 Docusate Sodium (Colace) 100 mg BID PRN PO CONSTIPATION; Start 01/19/17 at 12: 00 Bisacodyl (Dulcolax Supp) 10 mg BID PRN [place] CONSTIPATION; Start 01/19/17 at 12: 00 Sodium Biphosphate/ Sodium Phosphate 133 ml 133 ml BID PRN [place] CONSTIPATION; Start 01/19/17 at 12:00 Meropenem/Sodium Chloride (Merrem 1 Gm/50 ml (Pmx)) 50 ml @ 200 mls/hr Q8 IVPB Last administered on 01/25/17 05:36; Admin Dose 200 MLS/HR; Start 01/19/17 at 15:00 Famotidine (Pepcid) 20 mg DAILY PO Last administered on 01/24/17 09:16; Admin Dose 20 MG; Start 01/21/17 at 09:00 Hydromorphone HCl (Dilaudid) 3 mg Q3H PRN IV PAIN Last administered on 10:21; Admin Dose 3 MG; Start 01/20/17 at 23:00 Hydromorphone HCl (Dilaudid) 2 mg Q2H PRN IV PAIN Last administered on 06:26; Admin Dose 2 MG; Start 01/20/17 at 23:00 Zolpidem Tartrate (Ambien) 10 mg HS PRN PO INSOMNIA Last administered on 21:56; Admin Dose 10 MG; Start 01/21/17 at 13:30 IV Flush (NS 10 ml) 10 ml PRN PRN IV IV PROTOCOL; Start 01/21/17 at 19:00 Insulin Human NPH 10 unit 10 unit BID@08,20 SC Last administered on 01/24/17 22 :00; Admin Dose 10 UNIT; Start 01/22/17 at 08:00 Potassium Chloride/Dextrose/ Sod Cl 1,000 ml @ 100 mls/hr Q10H IV Last administered on 01/24/17 18:26; Admin Dose 100 MLS/HR; Start 01/21/17 at 23:00 Vancomycin HCl (Vancocin) 250 ml @ 125 mls/hr Q24H IVPB Last administered on 18:20; Admin Dose 125 MLS/HR; Start 01/23/17 at 17:00 Zinc Sulfate (Zinc Sulfate) 220 mg DAILY GTB Last administered on 01/24/17 09: 13; Admin Dose 220 MG; Start 01/23/17 at 15:30; Stop 02/05/17 at 09:01 Ascorbic Acid (Vitamin C) 500 mg BID GTB Last administered on 01/24/17 21:36; Admin Dose 500 MG; Start 01/23/17 at 21:00 Multivitamins (Multivitamin) 30 ml DAILY GTB Last administered on 01/24/17 09: 16; Admin Dose 30 ML; Start 01/23/17 at 17:00 Insulin Aspart (Novolog Insulin Pen) NOVOLOG *MODERATE* ALGORITHM Q6 SC Last administered on 01/25/17 06:25; Admin Dose 1 UNIT; Start 01/23/17 at 18:00 Apixaban (Eliquis) 5 mg BID PO Last administered on 01/24/17t 21:38; Admin Dose 5 MG; Start 01/24/17 at 09:00 Miscellaneous Information (*Rx Drug Level Order Reminder*) VANCOMYCIN TROUGH 01/25 AT 1600 ONCE ONCE XX ; Start 01/25/17 at 16:00; Stop 01/25/17 at 16:01 ANTHONY WOODARD MD Jan 25, 2017 06:47
[2017-01-25 06:56] LABS: CALCIUM 7.7 mg/dl (8.4-10.2); CREATININE 0.49 mg/dl (0.44-1.00); POTASSIUM 4.7 mmol/L (3.5-5.1)
[2017-01-25] MEDS: D5W-0.45 NACL + KCL 20 MEQ 1,000 ML IV SCH ×4 (07:00→22:20)
[2017-01-25 07:40] VITALS: BP 134/58; RESP 18
[2017-01-25] MEDS: FAMOTIDINE 20 MG TAB PO SCH (08:42)
[2017-01-25] MEDS: MULTIVITAMINS 30 ML CUP GTB SCH (08:42)
[2017-01-25] MEDS: CALCIUM CARBONATE 500 MG CHEW TAB PO SCH ×2 (08:42→20:06)
[2017-01-25] MEDS: ASCORBIC ACID 500 MG TAB GTB SCH ×2 (08:42→20:06)
[2017-01-25] MEDS: ZINC SULFATE 220 MG CAP GTB SCH (08:42)
[2017-01-25] MEDS: LOSARTAN 50 MG TAB PO SCH ×2 (08:42→20:10)
[2017-01-25] MEDS: ASPIRIN (EC) 81 MG TAB PO SCH (08:42)
[2017-01-25] MEDS: APIXABAN 5 MG TABLET PO SCH ×2 (08:43→20:06)
[2017-01-25] MEDS: NPH, HUMAN INSULIN ISOPHANE 3ML VIAL SC SCH ×2 (08:44→20:09)
[2017-01-25] MEDS: FERROUS SULFATE (SR) 142 MG TAB PO SCH (08:54)
[2017-01-25] MEDS: MUPIROCIN 2% 22 GM OINT TOP SCH ×2 (08:54→20:11)
[2017-01-25] MEDS: NYSTATIN 30 GM POWDER BTL TOP SCH ×2 (08:54→21:11)
[2017-01-25] MEDS: SODIUM HYPOCHLORITE 0.125% 473 ML BTL IRR SCH ×3 (08:54→20:11)
[2017-01-25] MEDS: COLLAGENASE 30 GM TUBE TOP SCH ×2 (08:55→19:30)
--- NOTE | 2017-01-25 10:54 | PN ---
DATE: 01/25/2017 SUBJECTIVE: Patient complains of abdominal pain. OBJECTIVE: VITAL SIGNS: Temperature 99.1, pulse 75, respirations 18, blood pressure 134/58, oxygen saturation 99 percent. GENERAL: In general, a well-nourished female, in no acute distress. Lying in bed. CHEST: Clear to auscultation bilaterally. HEART: Regular rate and rhythm. ABDOMEN: Soft, nondistended. Normoactive bowel sounds. G-tube site clean, dry, and intact. There is mild tenderness to palpation in and around the G-tube site and less tenderness to palpation right upper quadrant, right lower quadrant and left lower quadrant. No rebound tenderness noted. NEURO: Nonfocal. LABORATORY EXAMINATION: Sodium 131, potassium 4.7, chloride 99, bicarbonate 30, BUN of 10, creatinine 0.49, blood sugar of 236. Calcium 7.7, magnesium is 2.0. White blood cell count 15.8, hemoglobin 9.2, hematocrit 29.1, platelets 267. Sedimentation rate yesterday was 65. ASSESSMENT AND PLAN: 1. Sacral decubitus and sepsis. The patient remains stable. White count is down. Patient does have low-grade temperature. Continue antibiotics and treatment plan. 2. Diabetes. Patient with labile blood sugars last 24 hours. We will adjust insulin. 3. Abdominal pain. Patient receiving analgesic for pain q.2 hours. We will continue this. The patient's pain seems to be more related to her G-tube placement and abdominal wall tenderness as opposed to other processes. Patient had abdominal pelvic MRI the other day, which did not show much is going on at that time to be worried about. I will continue to monitor and keep with analgesia. 4. Dementia. Will continues medications. Dictated By: Sampson Duran MD /jose/christiana /Document#: [id number]
[2017-01-25 15:27] VITALS: BP 128/62; RESP 18
[2017-01-25] MEDS ORDERED: VANCOMYCIN 1 GM in NS 250 ML IVPB SCH (18:00)
[2017-01-25 19:36] VITALS: BP 124/68; RESP 18
[2017-01-25] MEDS: MONTELUKAST 10 MG TAB PO SCH (20:06)
[2017-01-25] MEDS: NEOMYC/POLYMYX/BACIT 30 GM OINT TOP SCH (21:11)
[2017-01-25] MEDS: ZOLPIDEM 5 MG TAB PO PRN (23:35)
[2017-01-26] MEDS: ACCU-CHEK XX SCH (01:38)
[2017-01-26] MEDS: HYDROmorphONE 2 MG/ML SYG IV PRN ×7 (04:33→23:39)
[2017-01-26 05:29] LABS: BASOPHIL # 0.1 10^3/ul (0.0-0.1); BASOPHILS % 0.6 % (0.0-2.0); EOSINOPHILS # 0.9 10^3/ul (0.0-0.5); EOSINOPHILS % 5.1 % (0.0-7.0); HEMATOCRIT 30.8 % (37.0-47.0); HEMOGLOBIN 9.5 g/dl (12.0-16.0); LYMPHOCYTES # 3.7 10^3/ul (0.8-2.9); LYMPHOCYTES % 21.9 % (15.0-51.0); MEAN CORPUSCULAR HEMOGLOBIN 26.6 pg (29.0-33.0); MEAN CORPUSCULAR HGB CONC 30.8 g/dl (32.0-37.0); MEAN CORPUSCULAR VOLUME 86.3 fl (82.0-101.0); MONOCYTE # 1.4 10^3/ul (0.3-0.9); MONOCYTES % 8.3 % (0.0-11.0); PLATELET COUNT 307 10^3/UL (140-415); RED BLOOD COUNT 3.57 10^6/ul (4.20-5.40); RED CELL DISTRIBUTION WIDTH 15.7 % (11.5-14.5)
[2017-01-26 05:42] LABS: CALCIUM 8.2 mg/dl (8.4-10.2); CREATININE 0.55 mg/dl (0.44-1.00); POTASSIUM 4.4 mmol/L (3.5-5.1)
[2017-01-26] MEDS: MEROPENEM 1 GM/50ML(PMX) 50 ML IVPB SCH ×3 (05:58→22:16)
[2017-01-26] MEDS: INSULIN ASPART [NOVOLOG] 3 ML PEN SC SCH ×7 (06:00→23:50)
--- NOTE | 2017-01-26 06:41 | CONS ---
Date/Time of Note Date/Time of Note DATE: 01/26/17 TIME: 06:38 Assessment/Plan Assessment/Plan Chief Complaint/Hosp Course 1) progressive sacral ulcer, surrounding cellulitis await surgical input and debridement, consider MRI depending upon surgical eval wound cx to be obtained continue with vanco/merrem check ESR, CRP in a.m. 01/17 - proteus and another GNR in wound cx continue with merrem/vanco esr and CRP are moderately elevated mrsa to nares to start bactroban await surgical input pt is more awake today and able to answer some questions in welsh 01/18 - pt persistence of fever and elevated wbc is either due to an undrained abscess or inadequate antibiotics await wound care eval and surgical debridement will order MRI scan if no wound care is delivered by tomorrow wound cx has proteus, GNR and enterococcus continue with vanco/merrem at present 01/19 - wound cx are all sensitive to current antibiotics of vanco/merrem MRI of pelvis/abd was done but results not available pt to get debridement later this am. 01/20 - s/p debridement, some bone was shaved, MRI did not show osteo await path report continue with vanco/merrem fevers and WBC improved post debridement pt will need good nutrition to heal this wound, consider g-tube if pt not eating well 01/22 - pt to get g-tube for better nutrition continue with vanco/merrem thru 02/01/17 consider doxy for 2 weeks after that path specimen did not identify bone to examine for osteo 01/25 - WBC improved today and ESR was down from 78 to 65 no new issues continue with vanco/merrrem at present thru 02/01 then po doxy for 2 weeks 01/26 - re-culture the site continue vanco/merrem 2) L heal ulcer with eschar no surrounding redness noted on picture 3) PVD 4) recent hx of LUE DVT 5) HTN 6) leukocytosis 01/26 - get u/a and urine cx, c.dif was sent off re-culture the sacral wound site doubt a pulmonary issue Problems: Consultation Date/Type/Reason Admit Date/Time Jan 15, 2017 at 14:33 Initial Consult Date 01/16/17 Type of Consultation: Infectious Diseases Referring Provider: RIDGE MATTHEWS MD 24 HR Interval Summary Free Text/Dictation spoke to attendant and nurse had three loose stools, c.dif sent off has pain to sacral area and around the g-tube site no V, tolerating TF no cough, looks comfortable Exam/Review of Systems Vital Signs Vitals Vital Signs Date Time Temp Pulse Resp B/P Pulse Ox O2 Delivery O2 Flow Rate FiO2 01/25/17 20:10 Nasal Cannula 2.0 01/25/17 19:36 98.5 86 18 124/68 96 Intake and Output 01/25/17 01/25/17 01/26/17 15:00 23:00 07:00 Intake Total 500 ml 900 ml 1100 ml Output Total 2000 ml Balance 500 ml 900 ml -900 ml Exam Constitutional: alert, other (moaning a bit but breathing is unlabored) Respiratory: clear to auscultation Cardiovascular: regular rate and rhythm Gastrointestinal: other (g-tube site has no redness or swelling), soft Results Result Diagram: 01/26/17 0438 01/26/17 0508 Results 24 hrs Laboratory Tests Test 01/25/17 08:31 01/25/17 12:27 01/25/17 17:10 01/25/17 18:15 Bedside Glucose 193 203 184 Vancomycin Level Trough 16.1 Test 01/25/17 20:03 01/25/17 23:35 01/26/17 04:38 01/26/17 05:08 Bedside Glucose 141 132 White Blood Count 17.0 H Red Blood Count 3.57 L Hemoglobin 9.5 L Hematocrit 30.8 L Mean Corpuscular Volume 86.3 Mean Corpuscular Hemoglobin 26.6 L Mean Corpuscular Hemoglobin Concent 30.8 L Red Cell Distribution Width 15.7 H Platelet Count 307 Mean Platelet Volume 10.0 Neutrophils % 62.0 Lymphocytes % 21.9 Monocytes % 8.3 Eosinophils % 5.1 Basophils % 0.6 Nucleated Red Blood Cells % 0.0 Neutrophils # (Manual) 10.5 H Lymphocytes # 3.7 H Monocytes # 1.4 H Eosinophils # 0.9 H Basophils # 0.1 Nucleated Red Blood Cells # 0.0 Sodium Level 135 Potassium Level 4.4 Chloride Level 101 Carbon Dioxide Level 31 Anion Gap 7 L Blood Urea Nitrogen 11 Creatinine 0.55 Glucose Level 108 # Calcium Level 8.2 L Magnesium Level 2.0 Test 01/26/17 05:59 Bedside Glucose 131 Medications Medications Current Medications Ondansetron HCl (Zofran Inj) 4 mg Q6H PRN IV NAUSEA AND/OR VOMITING; Start at 16:30 Acetaminophen (Tylenol Tab) 650 mg Q6H PRN PO PAIN LEVEL 1-3 OR FEVER Last administered on 01/17/17 06:40; Admin Dose 650 MG; Start 01/15/17 at 16:30 Magnesium Hydroxide (Milk Of Mag) 30 ml DAILY PRN PO CONSTIPATION Last administered on 01/24/17 09:15; Admin Dose 30 ML; Start 01/15/17 at 16:30 Aspirin (Halfprin) 81 mg DAILY PO Last administered on 01/25/17 08:42; Admin Dose 81 MG; Start 01/16/17 at 09:00 Losartan Potassium (Cozaar) 100 mg BID PO Last administered on 01/25/17 20:10; Admin Dose 100 MG; Start 01/15/17 at 21:00 Montelukast Sodium (Singulair) 10 mg QHS PO Last administered on 01/25/17 20:06 ; Admin Dose 10 MG; Start 01/15/17 at 21:00 IV Flush (NS 10 ml) 10 ml PRN PRN IV IV PROTOCOL; Start 01/15/17 at 18:30 Miscellaneous Information 1 ea NOTE XX ; Start 01/15/17 at 19:00 Glucose (Glutose) 15 gm Q15M PRN PO DECREASED GLUCOSE; Start 01/15/17 at 19:00 Glucose (Glutose) 22.5 gm Q15M PRN PO DECREASED GLUCOSE; Start 01/15/17 at 19: 00 Dextrose (D50w Syringe) 25 ml Q15M PRN IV DECREASED GLUCOSE Last administered on 01/21/17 20:37; Admin Dose 25 ML; Start 01/15/17 at 19:00 Dextrose (D50w Syringe) 50 ml Q15M PRN IV DECREASED GLUCOSE; Start 01/15/17 at 19:00 Glucagon (Glucagen) 1 mg Q15M PRN IM DECREASED GLUCOSE; Start 01/15/17 at 19:00 Glucose (Glutose) 15 gm Q15M PRN BUCCAL DECREASED GLUCOSE Last administered on 01/21/17 19:53; Admin Dose 15 GM; Start 01/15/17 at 19:00 Diagnostic Test (Pha) (Accu-Chek) 1 ea 02 XX Last administered on 01/22/17 02: 19; Admin Dose 1 EA; Start 01/16/17 at 02:00 Clonidine (Catapres) 0.1 mg Q6H PRN PO BLOOD PRESSURE SBP>160 Last administered on 01/16/17 23:42; Admin Dose 0.1 MG; Start 01/15/17 at 20:30 Miscellaneous Information (Pending Santyl Order For Wound Care) This patient jean baptiste... PRN PRN XX WOUND CARE; Start 01/15/17 at 22:00 Collagenase (Santyl) 1 applic DAILY TOP Last administered on 01/25/17 19:30; Admin Dose 1 APPLIC; Start 01/16/17 at 21:00 Hydralazine HCl (Apresoline) 10 mg Q6 PRN IV ELEVATED BLOOD PRESSURE Last administered on 01/17/17 03:05; Admin Dose 10 MG; Start 01/17/17 at 03:00 Acetaminophen (Tylenol Supp) 650 mg Q6H PRN [place] FEVER GREATER THAN 100.6 Last administered on 01/17/17 07:26; Admin Dose 650 MG; Start 01/17/17 at 07:00 Mupirocin (Bactroban) 1 applic BID TOP Last administered on 01/25/17 20:11; Admin Dose 1 APPLIC; Start 01/17/17 at 11:00 Ferrous Sulfate (Slow Fe) 142 mg DAILY PO Last administered on 01/25/17 08:54; Admin Dose 142 MG; Start 01/18/17 at 14:30 Calcium Carbonate (Tums) 500 mg BID PO Last administered on 01/25/17 20:06; Admin Dose 500 MG; Start 01/18/17 at 14:30 Nystatin (Nystatin Powder) 1 applic BID TOP Last administered on 01/25/17 21:11 ; Admin Dose 1 APPLIC; Start 01/18/17 at 21:00 Sodium Hypochlorite (Dakin'S (1/4 Strength)) 1 applic BID IRR Last administered on 01/25/17 20:11; Admin Dose 1 APPLIC; Start 01/18/17 at 21:00 Acetaminophen/ Hydrocodone Bitart ([place] (5/325)) 1 tab Q4H PRN PO PAIN LEVEL 4 -7; Start 01/19/17 at 12:00 Acetaminophen/ Hydrocodone Bitart ([place] (5/325)) 2 tab Q4H PRN PO PAIN LEVEL 7 -10; Start 01/19/17 at 12:00 Docusate Sodium (Colace) 100 mg BID PRN PO CONSTIPATION; Start 01/19/17 at 12: 00 Bisacodyl (Dulcolax Supp) 10 mg BID PRN [place] CONSTIPATION; Start 01/19/17 at 12: 00 Sodium Biphosphate/ Sodium Phosphate 133 ml 133 ml BID PRN [place] CONSTIPATION; Start 01/19/17 at 12:00 Meropenem/Sodium Chloride (Merrem 1 Gm/50 ml (Pmx)) 50 ml @ 200 mls/hr Q8 IVPB Last administered on 01/26/17 05:58; Admin Dose 200 MLS/HR; Start 01/19/17 at 15:00 Famotidine (Pepcid) 20 mg DAILY PO Last administered on 01/25/17 08:42; Admin Dose 20 MG; Start 01/21/17 at 09:00 Hydromorphone HCl (Dilaudid) 3 mg Q3H PRN IV PAIN Last administered on 10:21; Admin Dose 3 MG; Start 01/20/17 at 23:00 Hydromorphone HCl (Dilaudid) 2 mg Q2H PRN IV PAIN Last administered on 04:33; Admin Dose 2 MG; Start 01/20/17 at 23:00 Zolpidem Tartrate (Ambien) 10 mg HS PRN PO INSOMNIA Last administered on 23:35; Admin Dose 10 MG; Start 01/21/17 at 13:30 IV Flush (NS 10 ml) 10 ml PRN PRN IV IV PROTOCOL; Start 01/21/17 at 19:00 Insulin Human NPH 10 unit 10 unit BID@08,20 SC Last administered on 01/25/17 20 :09; Admin Dose 10 UNIT; Start 01/22/17 at 08:00 Potassium Chloride/Dextrose/ Sod Cl (D5-1/2ns + KCl 20 Meq) 1,000 ml @ 100 mls/ hr Q10H IV Last administered on 01/25/17 22:20; Admin Dose 100 MLS/HR; Start at 23:00 Zinc Sulfate (Zinc Sulfate) 220 mg DAILY GTB Last administered on 01/25/17 08: 42; Admin Dose 220 MG; Start 01/23/17 at 15:30; Stop 02/05/17 at 09:01 Ascorbic Acid (Vitamin C) 500 mg BID GTB Last administered on 01/25/17 20:06; Admin Dose 500 MG; Start 01/23/17 at 21:00 Multivitamins (Multivitamin) 30 ml DAILY GTB Last administered on 01/25/17 08: 42; Admin Dose 30 ML; Start 01/23/17 at 17:00 Insulin Aspart (Novolog Insulin Pen) NOVOLOG *MODERATE* ALGORITHM Q6 SC Last administered on 01/25/17 18:17; Admin Dose 4 UNIT; Start 01/23/17 at 18:00 Apixaban 5 mg 5 mg BID PO Last administered on 01/25/17 20:06; Admin Dose 5 MG ; Start 01/24/17 at 09:00 Vancomycin HCl/ Sodium Chloride (Vancocin/NS) 150 ml @ 75 mls/hr Q24H IVPB ; Start 01/26/17 at 18:00 Neomycin/ Polymyxin/ Bacitracin (Neosporin Topical Oint) 1 applic DAILY@21 TOP Last administered on 01/25/17 21:11; Admin Dose 1 APPLIC; Start 01/25/17 at 21:00 ANTHONY WOODARD MD Jan 26, 2017 06:41
[2017-01-26 08:00] VITALS: BP 160/61; RESP 20
[2017-01-26] MEDS: SODIUM HYPOCHLORITE 0.125% 473 ML BTL IRR SCH ×2 (09:00→20:12)
[2017-01-26] MEDS: NPH, HUMAN INSULIN ISOPHANE 3ML VIAL SC SCH ×2 (10:17→20:14)
[2017-01-26] MEDS: ASCORBIC ACID 500 MG TAB GTB SCH ×2 (10:17→20:10)
[2017-01-26] MEDS: MULTIVITAMINS 30 ML CUP GTB SCH (10:17)
[2017-01-26] MEDS: ASPIRIN (EC) 81 MG TAB PO SCH (10:18)
[2017-01-26] MEDS: CALCIUM CARBONATE 500 MG CHEW TAB PO SCH ×2 (10:18→20:10)
[2017-01-26] MEDS: FERROUS SULFATE (SR) 142 MG TAB PO SCH (10:18)
[2017-01-26] MEDS: FAMOTIDINE 20 MG TAB PO SCH (10:18)
[2017-01-26] MEDS: ZINC SULFATE 220 MG CAP GTB SCH (10:18)
[2017-01-26] MEDS: APIXABAN 5 MG TABLET PO SCH ×2 (10:18→20:09)
[2017-01-26] MEDS: LOSARTAN 50 MG TAB PO SCH ×2 (10:19→20:10)
[2017-01-26] MEDS: COLLAGENASE 30 GM TUBE TOP SCH (10:20)
[2017-01-26] MEDS: NYSTATIN 30 GM POWDER BTL TOP SCH ×2 (10:20→20:08)
[2017-01-26] MEDS: MUPIROCIN 2% 22 GM OINT TOP SCH ×2 (10:21→20:07)
--- NOTE | 2017-01-26 11:07 | PN ---
Date/Time of Note Date/Time of Note DATE: 01/26/17 TIME: 11:05 Assessment/Plan Lines/Catheters IV Catheter Type (from Nrsg): PICC Line Sullivan in Place (from Nrsg): Yes Assessment/Plan Assessment/Plan [facility] Progress Note Date of Service: 01/26/17 Today's Impression & Plan: Overall doing well post op without major issues. WBC rise noted. Likely multifactorial, but will need further monitoring and likely cultures. No major wound problems. No indication for acute surgical intervention, but patient will likely need another look in the operating room in the next few days. Wound vac likely today. Explained to patient's daughter and answered all questions. With above assessment, I've recommended the following for today: 1. Cont dressing changes 2. Cont PEG tube feeds 3. Wound vac today Nature of presenting problem: High complexity Thank you again for your great care of this very pleasant patient and wonderful family. If there are any questions, please feel free to call me at [phone]. Disclaimer: Inadvertent spelling or grammatical errors are likely due to EHR/ dictation software use and do not reflect on the overall quality of patient care. Updated clinical summary: A very-pleasant but unfortunate 81-year-old lady with multiple comorbidities including diabetes mellitus complicated by left heel decubitus ulcer as well as right below the knee amputation and paroxysmal atrial fibrillation, presenting with stage IV decubitus ulcer overlying her sacrum. Comorbidities: 1. Infected stage IV sacral decubitus pressure ulcer with possible osteomyelitis of the coccyx; s/p excisional debridement with scissors of a 10 x 5 x 3.5 cm coccygeal and sacral decubitus ulcer and removal of 30 cm of tissue including small part of the coccyx bone (ostectomy, 1x1x1 cm) and down to muscle in the upper part of the ulcer area and application of 2 g of Micro Matrix paste 2. Diabetes mellitus complicated by left heel decubitus ulcer as well as right below the knee amputation 3. Paroxysmal atrial fibrillation 4. Left upper extremity DVT with superficial thrombosis 5. Hypertension 6. Aspiration pneumonia 7. Osteomyelitis at the posterior calcaneal margin, treated with meropenem and vancomycin 8. Severe malnutrition with prealbumin 3.1 after hydration and albumin of 1.5 9. Peripheral vascular disease 10. Dementia 11. BMI 27.5 Subjective: No major events or complaints; no major abd pain and under control with medications; no n/v/d; no sob or cp; + flatus; + BM; - activity Objective: Vitals: See below Exam: GENERAL: On exam, the patient was laying in bed and appeared to be comfortable and in no acute distress. ABDOMEN: Soft, nontender and nondistended. Incision dressings are clean, dry and intact without any evidence of erythema, edema, discharge, or hernia. There are no peritoneal signs or guarding. PEG dressing clean and tube feeds ongoing. SKIN: Skin appears to be pink and feels warm to touch. NEUROLOGIC: Patient is arousable and follows simple commands appropriately. Exam/Review of Systems Vital Signs Vitals Vital Signs Date Time Temp Pulse Resp B/P Pulse Ox O2 Delivery O2 Flow Rate FiO2 01/26/17 08:00 96.7 78 20 160/61 100 01/25/17 20:10 Nasal Cannula 2.0 Intake and Output 01/25/17 01/25/17 01/26/17 14:59 22:59 06:59 Intake Total 500 ml 900 ml 1150 ml Output Total 2000 ml Balance 500 ml 900 ml -850 ml Results Result Diagram: 01/26/17 0438 01/26/17 0508 OMAR HINOJOSA M.D. Jan 26, 2017 11:07
[2017-01-26] MEDS: D5W-0.45 NACL + KCL 20 MEQ 1,000 ML IV SCH (11:47)
--- NOTE | 2017-01-26 12:17 | PN ---
Date/Time of Note Date/Time of Note DATE: 01/26/17 TIME: 12:16 Assessment/Plan VTE Prophylaxis VTE Prophylaxis Intervention: other Lines/Catheters IV Catheter Type (from Nrsg): PICC Line Central line still needed: Yes Urinary Cath still in place: Yes Reason Cath still needed: skin wounds contaminated by urine Assessment/Plan Assessment/Plan sacral stage IV decub, growing proteus and ecoli and s.aureus. on merrem/vanco , being treated by ID. 02/19 debrided and eval for osteo. called ortho- they report that nothing for them to do regarding fx or osteo of sacrum. wbc improving. poor appetite- may be due to pain meds. for the next 24 hours will cont and then try to extend time between doses and also decrease dose. gtube in place. 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 pt changed to elliquis h/o left dvt of UE. now on elliquis Subjective 24 Hr Interval Summary Free Text/Dictation wbc going up. pt sedated. sugar relatively stable. c.diff neg x 1 picc was changed due to LUE dvt, peg is in place- feedings currently, on oral anticoag for dvt and paroxysmal afib Exam/Review of Systems Vital Signs Vitals Vital Signs Date Time Temp Pulse Resp B/P Pulse Ox O2 Delivery O2 Flow Rate FiO2 01/26/17 08:00 96.7 78 20 160/61 100 01/25/17 20:10 Nasal Cannula 2.0 Intake and Output 01/25/17 01/25/17 01/26/17 15:00 23:00 07:00 Intake Total 500 ml 900 ml 1150 ml Output Total 2000 ml Balance 500 ml 900 ml -850 ml Results Result Diagram: 01/26/17 0438 01/26/17 0508 Results 24 hrs Laboratory Tests Test 01/25/17 12:27 01/25/17 17:10 01/25/17 18:15 01/25/17 20:03 Bedside Glucose 203 184 141 Vancomycin Level Trough 16.1 Test 01/25/17 23:35 01/26/17 04:38 01/26/17 05:08 01/26/17 05:59 Bedside Glucose 132 131 White Blood Count 17.0 H Red Blood Count 3.57 L Hemoglobin 9.5 L Hematocrit 30.8 L Mean Corpuscular Volume 86.3 Mean Corpuscular Hemoglobin 26.6 L Mean Corpuscular Hemoglobin Concent 30.8 L Red Cell Distribution Width 15.7 H Platelet Count 307 Mean Platelet Volume 10.0 Neutrophils % 62.0 Lymphocytes % 21.9 Monocytes % 8.3 Eosinophils % 5.1 Basophils % 0.6 Nucleated Red Blood Cells % 0.0 Neutrophils # (Manual) 10.5 H Lymphocytes # 3.7 H Monocytes # 1.4 H Eosinophils # 0.9 H Basophils # 0.1 Nucleated Red Blood Cells # 0.0 Sodium Level 135 Potassium Level 4.4 Chloride Level 101 Carbon Dioxide Level 31 Anion Gap 7 L Blood Urea Nitrogen 11 Creatinine 0.55 Glucose Level 108 # Calcium Level 8.2 L Magnesium Level 2.0 Test 01/26/17 09:26 Bedside Glucose 201 Medications Medications Current Medications Ondansetron HCl (Zofran Inj) 4 mg Q6H PRN IV NAUSEA AND/OR VOMITING; Start at 16:30 Acetaminophen (Tylenol Tab) 650 mg Q6H PRN PO PAIN LEVEL 1-3 OR FEVER Last administered on 01/17/17 06:40; Admin Dose 650 MG; Start 01/15/17 at 16:30 Magnesium Hydroxide (Milk Of Mag) 30 ml DAILY PRN PO CONSTIPATION Last administered on 01/24/17 09:15; Admin Dose 30 ML; Start 01/15/17 at 16:30 Aspirin (Halfprin) 81 mg DAILY PO Last administered on 01/26/17 10:18; Admin Dose 81 MG; Start 01/16/17 at 09:00 Losartan Potassium (Cozaar) 100 mg BID PO Last administered on 01/26/17 10:19; Admin Dose 100 MG; Start 01/15/17 at 21:00 Montelukast Sodium (Singulair) 10 mg QHS PO Last administered on 01/25/17 20:06 ; Admin Dose 10 MG; Start 01/15/17 at 21:00 IV Flush (NS 10 ml) 10 ml PRN PRN IV IV PROTOCOL; Start 01/15/17 at 18:30 Miscellaneous Information 1 ea NOTE XX ; Start 01/15/17 at 19:00 Glucose (Glutose) 15 gm Q15M PRN PO DECREASED GLUCOSE; Start 01/15/17 at 19:00 Glucose (Glutose) 22.5 gm Q15M PRN PO DECREASED GLUCOSE; Start 01/15/17 at 19: 00 Dextrose (D50w Syringe) 25 ml Q15M PRN IV DECREASED GLUCOSE Last administered on 01/21/17 20:37; Admin Dose 25 ML; Start 01/15/17 at 19:00 Dextrose (D50w Syringe) 50 ml Q15M PRN IV DECREASED GLUCOSE; Start 01/15/17 at 19:00 Glucagon (Glucagen) 1 mg Q15M PRN IM DECREASED GLUCOSE; Start 01/15/17 at 19:00 Glucose (Glutose) 15 gm Q15M PRN BUCCAL DECREASED GLUCOSE Last administered on 01/21/17 19:53; Admin Dose 15 GM; Start 01/15/17 at 19:00 Diagnostic Test (Pha) (Accu-Chek) 1 ea 02 XX Last administered on 01/22/17 02: 19; Admin Dose 1 EA; Start 01/16/17 at 02:00 Clonidine (Catapres) 0.1 mg Q6H PRN PO BLOOD PRESSURE SBP>160 Last administered on 01/16/17 23:42; Admin Dose 0.1 MG; Start 01/15/17 at 20:30 Miscellaneous Information (Pending Santyl Order For Wound Care) This patient jean baptiste... PRN PRN XX WOUND CARE; Start 01/15/17 at 22:00 Collagenase (Santyl) 1 applic DAILY TOP Last administered on 01/26/17 10:20; Admin Dose 1 APPLIC; Start 01/16/17 at 21:00 Hydralazine HCl (Apresoline) 10 mg Q6 PRN IV ELEVATED BLOOD PRESSURE Last administered on 01/17/17 03:05; Admin Dose 10 MG; Start 01/17/17 at 03:00 Acetaminophen (Tylenol Supp) 650 mg Q6H PRN [place] FEVER GREATER THAN 100.6 Last administered on 01/17/17 07:26; Admin Dose 650 MG; Start 01/17/17 at 07:00 Mupirocin (Bactroban) 1 applic BID TOP Last administered on 01/26/17 10:21; Admin Dose 1 APPLIC; Start 01/17/17 at 11:00 Ferrous Sulfate (Slow Fe) 142 mg DAILY PO Last administered on 01/26/17 10:18; Admin Dose 142 MG; Start 01/18/17 at 14:30 Calcium Carbonate (Tums) 500 mg BID PO Last administered on 01/26/17 10:18; Admin Dose 500 MG; Start 01/18/17 at 14:30 Nystatin (Nystatin Powder) 1 applic BID TOP Last administered on 01/26/17 10:20 ; Admin Dose 1 APPLIC; Start 01/18/17 at 21:00 Sodium Hypochlorite (Dakin'S (1/4 Strength)) 1 applic BID IRR Last administered on 01/25/17 20:11; Admin Dose 1 APPLIC; Start 01/18/17 at 21:00 Acetaminophen/ Hydrocodone Bitart ([place] (5/325)) 1 tab Q4H PRN PO PAIN LEVEL 4 -7; Start 01/19/17 at 12:00 Acetaminophen/ Hydrocodone Bitart ([place] (5/325)) 2 tab Q4H PRN PO PAIN LEVEL 7 -10; Start 01/19/17 at 12:00 Docusate Sodium (Colace) 100 mg BID PRN PO CONSTIPATION; Start 01/19/17 at 12: 00 Bisacodyl (Dulcolax Supp) 10 mg BID PRN [place] CONSTIPATION; Start 01/19/17 at 12: 00 Sodium Biphosphate/ Sodium Phosphate 133 ml 133 ml BID PRN [place] CONSTIPATION; Start 01/19/17 at 12:00 Meropenem/Sodium Chloride (Merrem 1 Gm/50 ml (Pmx)) 50 ml @ 200 mls/hr Q8 IVPB Last administered on 01/26/17 05:58; Admin Dose 200 MLS/HR; Start 01/19/17 at 15:00 Famotidine (Pepcid) 20 mg DAILY PO Last administered on 01/26/17 10:18; Admin Dose 20 MG; Start 01/21/17 at 09:00 Hydromorphone HCl (Dilaudid) 3 mg Q3H PRN IV PAIN Last administered on 10:21; Admin Dose 3 MG; Start 01/20/17 at 23:00 Hydromorphone HCl (Dilaudid) 2 mg Q2H PRN IV PAIN Last administered on 10:17; Admin Dose 2 MG; Start 01/20/17 at 23:00 Zolpidem Tartrate (Ambien) 10 mg HS PRN PO INSOMNIA Last administered on 23:35; Admin Dose 10 MG; Start 01/21/17 at 13:30 IV Flush (NS 10 ml) 10 ml PRN PRN IV IV PROTOCOL; Start 01/21/17 at 19:00 Insulin Human NPH 10 unit 10 unit BID@08,20 SC Last administered on 01/26/17 10 :17; Admin Dose 10 UNIT; Start 01/22/17 at 08:00 Potassium Chloride/Dextrose/ Sod Cl (D5-1/2ns + KCl 20 Meq) 1,000 ml @ 100 mls/ hr Q10H IV Last administered on 01/26/17 11:47; Admin Dose 100 MLS/HR; Start at 23:00 Zinc Sulfate (Zinc Sulfate) 220 mg DAILY GTB Last administered on 01/26/17 10: 18; Admin Dose 220 MG; Start 01/23/17 at 15:30; Stop 02/05/17 at 09:01 Ascorbic Acid (Vitamin C) 500 mg BID GTB Last administered on 01/26/17 10:17; Admin Dose 500 MG; Start 01/23/17 at 21:00 Multivitamins (Multivitamin) 30 ml DAILY GTB Last administered on 01/26/17 10: 17; Admin Dose 30 ML; Start 01/23/17 at 17:00 Insulin Aspart (Novolog Insulin Pen) NOVOLOG *MODERATE* ALGORITHM Q6 SC Last administered on 01/26/17 12:03; Admin Dose 4 UNIT; Start 01/23/17 at 18:00 Apixaban 5 mg 5 mg BID PO Last administered on 01/26/17 10:18; Admin Dose 5 MG ; Start 01/24/17 at 09:00 Vancomycin HCl/ Sodium Chloride (Vancocin/NS) 150 ml @ 75 mls/hr Q24H IVPB ; Start 01/26/17 at 18:00 Neomycin/ Polymyxin/ Bacitracin (Neosporin Topical Oint) 1 applic DAILY@21 TOP Last administered on 01/25/17 21:11; Admin Dose 1 APPLIC; Start 01/25/17 at 21:00 RIDGE MATTHEWS MD Jan 26, 2017 12:17
[2017-01-26 14:00] VITALS: BP 143/61; RESP 19
[2017-01-26 14:35] LABS: ADD UMIC YES; UR ASCORBIC ACID 40 mg/dL (NEGATIVE); UR BACTERIA FEW /HPF (NONE SEEN); UR BILIRUBIN (Dip) NEGATIVE (NEGATIVE); UR BLOOD (Dip) NEGATIVE (NEGATIVE); UR BUDDING YEAST MANY /HPF (NONE SEEN); UR CLARITY SLIGHTLY CLOUDY (CLEAR); UR COLOR YELLOW (YELLOW); UR GLUCOSE (Dip) NEGATIVE (NEGATIVE); UR KETONES (Dip) NEGATIVE (NEGATIVE); UR LEUKOCYTE ESTERASE (Dip) 1+ Leu/ul (NEGATIVE); UR NITRITE (Dip) NEGATIVE (NEGATIVE); UR RBC 5 /HPF (0-5); UR SPECIFIC GRAVITY (Dip) 1.011 (1.003-1.030); UR TOTAL PROTEIN (Dip) NEGATIVE (NEGATIVE); UR UROBILINOGEN (Dip) NEGATIVE (NEGATIVE); UR WBC CLUMPS FEW /HPF (NONE SEEN)
[2017-01-26] MEDS: VANCOMYCIN 750 MG in SOD CHLORIDE 0.9% 150 ML IVPB SCH (18:02)
--- NOTE | 2017-01-26 18:29 | CONS ---
Date/Time of Note Date/Time of Note DATE: 01/26/17 TIME: 18:25 Assessment/Plan Assessment/Plan Additional Assessment/Plan Sacral decubiti DVT of left upper extremity History of paroxysmal atrial fibrillation Preserved ejection fraction Peripheral arterial disease -Patient status post PEG placement. Has been started on Eliquis and hemoglobin overall remaining stable. No new cardiac orders at the current time. Consultation Date/Type/Reason Admit Date/Time Jan 15, 2017 at 14:33 Initial Consult Date 01/19/17 Type of Consultation: cv Referring Provider: RIDGE MATTHEWS MD 24 HR Interval Summary Free Text/Dictation Denies shortness of breath, palpitations or chest pain. As per family, complaining of pain at Peg site and sacrum Exam/Review of Systems Vital Signs Vitals Vital Signs Date Time Temp Pulse Resp B/P Pulse Ox O2 Delivery O2 Flow Rate FiO2 01/26/17 14:00 98.9 85 19 143/61 98 01/26/17 08:00 Nasal Cannula 2.0 Intake and Output 01/25/17 01/25/17 01/26/17 15:00 23:00 07:00 Intake Total 500 ml 900 ml 1150 ml Output Total 2000 ml Balance 500 ml 900 ml -850 ml Exam No apparent distress Constitutional: alert, frail, oriented Head: normocephalic Respiratory: other (Coarse breath sounds bilaterally, no wheezing) Cardiovascular: other (S1-S2 heard), regular rate and rhythm Gastrointestinal: bowel sounds, non-tender, soft Extremities: edema (Trace) Results Result Diagram: 01/26/17 0438 01/26/17 0508 Results 24 hrs Laboratory Tests Test 01/25/17 20:03 01/25/17 23:35 01/26/17 04:38 01/26/17 05:08 Bedside Glucose 141 132 White Blood Count 17.0 H Red Blood Count 3.57 L Hemoglobin 9.5 L Hematocrit 30.8 L Mean Corpuscular Volume 86.3 Mean Corpuscular Hemoglobin 26.6 L Mean Corpuscular Hemoglobin Concent 30.8 L Red Cell Distribution Width 15.7 H Platelet Count 307 Mean Platelet Volume 10.0 Neutrophils % 62.0 Lymphocytes % 21.9 Monocytes % 8.3 Eosinophils % 5.1 Basophils % 0.6 Nucleated Red Blood Cells % 0.0 Neutrophils # (Manual) 10.5 H Lymphocytes # 3.7 H Monocytes # 1.4 H Eosinophils # 0.9 H Basophils # 0.1 Nucleated Red Blood Cells # 0.0 Sodium Level 135 Potassium Level 4.4 Chloride Level 101 Carbon Dioxide Level 31 Anion Gap 7 L Blood Urea Nitrogen 11 Creatinine 0.55 Glucose Level 108 # Calcium Level 8.2 L Magnesium Level 2.0 Test 01/26/17 05:59 01/26/17 09:26 01/26/17 12:00 01/26/17 12:05 Bedside Glucose 131 201 191 Urine Color YELLOW Urine Clarity SLIGHTLY CLOUDY A Urine pH 8.0 Urine Specific [place] 1.011 Urine Ketones NEGATIVE Urine Nitrite NEGATIVE Urine Bilirubin NEGATIVE Urine Urobilinogen NEGATIVE Urine Leukocyte Esterase 1+ H Urine Microscopic RBC 5 Urine Microscopic WBC 20 H Urine Bacteria FEW A Urine Yeast (Budding) MANY A Urine Hemoglobin NEGATIVE Urine Glucose NEGATIVE Urine Total Protein NEGATIVE Test 01/26/17 17:46 Bedside Glucose 192 Medications Medications Current Medications Ondansetron HCl (Zofran Inj) 4 mg Q6H PRN IV NAUSEA AND/OR VOMITING; Start at 16:30 Acetaminophen (Tylenol Tab) 650 mg Q6H PRN PO PAIN LEVEL 1-3 OR FEVER Last administered on 01/17/17 06:40; Admin Dose 650 MG; Start 01/15/17 at 16:30 Magnesium Hydroxide (Milk Of Mag) 30 ml DAILY PRN PO CONSTIPATION Last administered on 01/24/17 09:15; Admin Dose 30 ML; Start 01/15/17 at 16:30 Aspirin (Halfprin) 81 mg DAILY PO Last administered on 01/26/17 10:18; Admin Dose 81 MG; Start 01/16/17 at 09:00 Losartan Potassium (Cozaar) 100 mg BID PO Last administered on 01/26/17 10:19; Admin Dose 100 MG; Start 01/15/17 at 21:00 Montelukast Sodium (Singulair) 10 mg QHS PO Last administered on 01/25/17 20:06 ; Admin Dose 10 MG; Start 01/15/17 at 21:00 IV Flush (NS 10 ml) 10 ml PRN PRN IV IV PROTOCOL; Start 01/15/17 at 18:30 Miscellaneous Information 1 ea NOTE XX ; Start 01/15/17 at 19:00 Glucose (Glutose) 15 gm Q15M PRN PO DECREASED GLUCOSE; Start 01/15/17 at 19:00 Glucose (Glutose) 22.5 gm Q15M PRN PO DECREASED GLUCOSE; Start 01/15/17 at 19: 00 Dextrose (D50w Syringe) 25 ml Q15M PRN IV DECREASED GLUCOSE Last administered on 01/21/17 20:37; Admin Dose 25 ML; Start 01/15/17 at 19:00 Dextrose (D50w Syringe) 50 ml Q15M PRN IV DECREASED GLUCOSE; Start 01/15/17 at 19:00 Glucagon (Glucagen) 1 mg Q15M PRN IM DECREASED GLUCOSE; Start 01/15/17 at 19:00 Glucose (Glutose) 15 gm Q15M PRN BUCCAL DECREASED GLUCOSE Last administered on 01/21/17 19:53; Admin Dose 15 GM; Start 01/15/17 at 19:00 Diagnostic Test (Pha) (Accu-Chek) 1 ea 02 XX Last administered on 01/22/17 02: 19; Admin Dose 1 EA; Start 01/16/17 at 02:00 Clonidine (Catapres) 0.1 mg Q6H PRN PO BLOOD PRESSURE SBP>160 Last administered on 01/16/17 23:42; Admin Dose 0.1 MG; Start 01/15/17 at 20:30 Miscellaneous Information (Pending Santyl Order For Wound Care) This patient jean baptiste... PRN PRN XX WOUND CARE; Start 01/15/17 at 22:00 Collagenase (Santyl) 1 applic DAILY TOP Last administered on 01/26/17 10:20; Admin Dose 1 APPLIC; Start 01/16/17 at 21:00 Hydralazine HCl (Apresoline) 10 mg Q6 PRN IV ELEVATED BLOOD PRESSURE Last administered on 01/17/17 03:05; Admin Dose 10 MG; Start 01/17/17 at 03:00 Acetaminophen (Tylenol Supp) 650 mg Q6H PRN [place] FEVER GREATER THAN 100.6 Last administered on 01/17/17 07:26; Admin Dose 650 MG; Start 01/17/17 at 07:00 Mupirocin (Bactroban) 1 applic BID TOP Last administered on 01/26/17 10:21; Admin Dose 1 APPLIC; Start 01/17/17 at 11:00 Ferrous Sulfate (Slow Fe) 142 mg DAILY PO Last administered on 01/26/17 10:18; Admin Dose 142 MG; Start 01/18/17 at 14:30 Calcium Carbonate (Tums) 500 mg BID PO Last administered on 01/26/17 10:18; Admin Dose 500 MG; Start 01/18/17 at 14:30 Nystatin (Nystatin Powder) 1 applic BID TOP Last administered on 01/26/17 10:20 ; Admin Dose 1 APPLIC; Start 01/18/17 at 21:00 Sodium Hypochlorite (Dakin'S (1/4 Strength)) 1 applic BID IRR Last administered on 01/25/17 20:11; Admin Dose 1 APPLIC; Start 01/18/17 at 21:00 Acetaminophen/ Hydrocodone Bitart ([place] (5/325)) 1 tab Q4H PRN PO PAIN LEVEL 4 -7; Start 01/19/17 at 12:00 Acetaminophen/ Hydrocodone Bitart ([place] (5/325)) 2 tab Q4H PRN PO PAIN LEVEL 7 -10; Start 01/19/17 at 12:00 Docusate Sodium (Colace) 100 mg BID PRN PO CONSTIPATION; Start 01/19/17 at 12: 00 Bisacodyl (Dulcolax Supp) 10 mg BID PRN [place] CONSTIPATION; Start 01/19/17 at 12: 00 Sodium Biphosphate/ Sodium Phosphate 133 ml 133 ml BID PRN [place] CONSTIPATION; Start 01/19/17 at 12:00 Meropenem/Sodium Chloride (Merrem 1 Gm/50 ml (Pmx)) 50 ml @ 200 mls/hr Q8 IVPB Last administered on 01/26/17 14:39; Admin Dose 200 MLS/HR; Start 01/19/17 at 15:00 Famotidine (Pepcid) 20 mg DAILY PO Last administered on 01/26/17 10:18; Admin Dose 20 MG; Start 01/21/17 at 09:00 Hydromorphone HCl (Dilaudid) 3 mg Q3H PRN IV PAIN Last administered on 10:21; Admin Dose 3 MG; Start 01/20/17 at 23:00; Status Future Hold Zolpidem Tartrate (Ambien) 10 mg HS PRN PO INSOMNIA Last administered on 23:35; Admin Dose 10 MG; Start 01/21/17 at 13:30 IV Flush (NS 10 ml) 10 ml PRN PRN IV IV PROTOCOL; Start 01/21/17 at 19:00 Insulin Human NPH 10 unit 10 unit BID@08,20 SC Last administered on 01/26/17 10 :17; Admin Dose 10 UNIT; Start 01/22/17 at 08:00 Potassium Chloride/Dextrose/ Sod Cl (D5-1/2ns + KCl 20 Meq) 1,000 ml @ 100 mls/ hr Q10H IV Last administered on 01/26/17 11:47; Admin Dose 100 MLS/HR; Start at 23:00 Zinc Sulfate (Zinc Sulfate) 220 mg DAILY GTB Last administered on 01/26/17 10: 18; Admin Dose 220 MG; Start 01/23/17 at 15:30; Stop 02/05/17 at 09:01 Ascorbic Acid (Vitamin C) 500 mg BID GTB Last administered on 01/26/17 10:17; Admin Dose 500 MG; Start 01/23/17 at 21:00 Multivitamins (Multivitamin) 30 ml DAILY GTB Last administered on 01/26/17 10: 17; Admin Dose 30 ML; Start 01/23/17 at 17:00 Insulin Aspart (Novolog Insulin Pen) NOVOLOG *MODERATE* ALGORITHM Q6 SC Last administered on 01/26/17 18:01; Admin Dose 4 UNIT; Start 01/23/17 at 18:00 Apixaban 5 mg 5 mg BID PO Last administered on 01/26/17 10:18; Admin Dose 5 MG ; Start 01/24/17 at 09:00 Vancomycin HCl/ Sodium Chloride (Vancocin/NS) 150 ml @ 75 mls/hr Q24H IVPB Last administered on 01/26/17 18:02; Admin Dose 75 MLS/HR; Start 01/26/17 at 18: 00 Neomycin/ Polymyxin/ Bacitracin (Neosporin Topical Oint) 1 applic DAILY@21 TOP Last administered on 01/25/17 21:11; Admin Dose 1 APPLIC; Start 01/25/17 at 21:00 Hydromorphone HCl (Dilaudid) 2 mg Q3 PRN IV PAIN Last administered on 01/26/17 17:34; Admin Dose 2 MG; Start 01/26/17 at 15:00 Tucker Jacome DO Jan 26, 2017 18:29
[2017-01-26] MEDS: NEOMYC/POLYMYX/BACIT 30 GM OINT TOP SCH (20:08)
[2017-01-26] MEDS: MONTELUKAST 10 MG TAB PO SCH (20:09)
[2017-01-26 20:51] VITALS: BP 121/50; RESP 18
[2017-01-26] MEDS: ZOLPIDEM 5 MG TAB PO PRN (22:16)
[2017-01-27] MEDS: D5W-0.45 NACL + KCL 20 MEQ 1,000 ML IV SCH ×3 (01:37→17:20)
[2017-01-27] MEDS: ACCU-CHEK XX SCH (02:00)
[2017-01-27] MEDS: HYDROmorphONE 2 MG/ML SYG IV PRN ×5 (02:41→16:09)
[2017-01-27 02:56] VITALS: BP 103/45; RESP 18
[2017-01-27] MEDS: MEROPENEM 1 GM/50ML(PMX) 50 ML IVPB SCH ×3 (05:23→20:24)
[2017-01-27] MEDS: INSULIN ASPART [NOVOLOG] 3 ML PEN SC SCH ×7 (05:50→20:35)
[2017-01-27 06:10] LABS: BASOPHIL # 0.1 10^3/ul (0.0-0.1); BASOPHILS % 0.6 % (0.0-2.0); EOSINOPHILS # 0.7 10^3/ul (0.0-0.5); EOSINOPHILS % 4.6 % (0.0-7.0); HEMOGLOBIN 8.8 g/dl (12.0-16.0); LYMPHOCYTES # 3.3 10^3/ul (0.8-2.9); LYMPHOCYTES % 22.9 % (15.0-51.0); MEAN CORPUSCULAR HEMOGLOBIN 27.2 pg (29.0-33.0); MEAN CORPUSCULAR HGB CONC 31.4 g/dl (32.0-37.0); MEAN CORPUSCULAR VOLUME 86.7 fl (82.0-101.0); MEAN PLATELET VOLUME 10.3 fl (7.4-10.4); MONOCYTE # 1.4 10^3/ul (0.3-0.9); MONOCYTES % 9.5 % (0.0-11.0); NEUTROPHILS % 60.7 % (39.0-77.0); PLATELET COUNT 289 10^3/UL (140-415); RED BLOOD COUNT 3.23 10^6/ul (4.20-5.40); RED CELL DISTRIBUTION WIDTH 15.9 % (11.5-14.5); WHITE BLOOD COUNT 14.4 10^3/ul (4.8-10.8)
[2017-01-27 06:45] LABS: ALBUMIN 2.1 g/dl (3.3-4.9); ALBUMIN/GLOBULIN RATIO 0.67; BILIRUBIN,INDIRECT 0.2 mg/dl (0-1.1); BILIRUBIN,TOTAL 0.2 mg/dl (0.2-1.3); CALCIUM 8.1 mg/dl (8.4-10.2); CREATININE 0.53 mg/dl (0.44-1.00); POTASSIUM 4.7 mmol/L (3.5-5.1); TOTAL PROTEIN 5.2 g/dl (6.1-8.1)
--- NOTE | 2017-01-27 07:59 | CONS ---
Date/Time of Note Date/Time of Note DATE: 01/27/17 TIME: 07:56 Assessment/Plan Assessment/Plan Chief Complaint/Hosp Course 1) progressive sacral ulcer, surrounding cellulitis await surgical input and debridement, consider MRI depending upon surgical eval wound cx to be obtained continue with vanco/merrem check ESR, CRP in a.m. 01/17 - proteus and another GNR in wound cx continue with merrem/vanco esr and CRP are moderately elevated mrsa to nares to start bactroban await surgical input pt is more awake today and able to answer some questions in hungarian 01/18 - pt persistence of fever and elevated wbc is either due to an undrained abscess or inadequate antibiotics await wound care eval and surgical debridement will order MRI scan if no wound care is delivered by tomorrow wound cx has proteus, GNR and enterococcus continue with vanco/merrem at present 01/19 - wound cx are all sensitive to current antibiotics of vanco/merrem MRI of pelvis/abd was done but results not available pt to get debridement later this am. 01/20 - s/p debridement, some bone was shaved, MRI did not show osteo await path report continue with vanco/merrem fevers and WBC improved post debridement pt will need good nutrition to heal this wound, consider g-tube if pt not eating well 01/22 - pt to get g-tube for better nutrition continue with vanco/merrem thru 02/01/17 consider doxy for 2 weeks after that path specimen did not identify bone to examine for osteo 01/25 - WBC improved today and ESR was down from 78 to 65 no new issues continue with vanco/merrrem at present thru 02/01 then po doxy for 2 weeks 01/26 - re-culture the site continue vanco/merrem 01/27 - vac pump is applied re-cx of site has GNR so far 2) L heal ulcer with eschar no surrounding redness noted on picture 3) PVD 4) recent hx of LUE DVT 5) HTN 6) leukocytosis 01/26 - get u/a and urine cx, c.dif was sent off re-culture the sacral wound site doubt a pulmonary issue 01/27 - c.dif was neg WBC has improved without change in antibiotics urine cx is NGTD (prior one was only yeast) wound cx has GNR only so far continue present management Problems: Consultation Date/Type/Reason Admit Date/Time Jan 15, 2017 at 14:33 Initial Consult Date 01/16/17 Type of Consultation: ID Referring Provider: RIDGE MATTHEWS MD 24 HR Interval Summary Free Text/Dictation spoke to nurse only one stool overnight tolerating TF got vac pump drained 125cc overnight no V, change in breathing Exam/Review of Systems Vital Signs Vitals Vital Signs Date Time Temp Pulse Resp B/P Pulse Ox O2 Delivery O2 Flow Rate FiO2 01/27/17 02:56 98.1 80 18 103/45 99 01/26/17 20:00 Nasal Cannula 2.0 Intake and Output 01/26/17 01/26/17 01/27/17 15:00 23:00 07:00 Intake Total 300 ml 1570 ml 970 ml Output Total 1800 ml 1700 ml Balance 300 ml -230 ml -730 ml Exam Constitutional: non-verbal Respiratory: clear to auscultation Cardiovascular: regular rate and rhythm Gastrointestinal: non-tender, soft Extremities: other (vac pump applied) Results Result Diagram: 01/27/17 0536 01/27/17 0536 Results 24 hrs Laboratory Tests Test 01/26/17 09:26 01/26/17 12:00 01/26/17 12:05 01/26/17 17:46 Bedside Glucose 201 191 192 Urine Color YELLOW Urine Clarity SLIGHTLY CLOUDY A Urine pH 8.0 Urine Specific [place] 1.011 Urine Ketones NEGATIVE Urine Nitrite NEGATIVE Urine Bilirubin NEGATIVE Urine Urobilinogen NEGATIVE Urine Leukocyte Esterase 1+ H Urine Microscopic RBC 5 Urine Microscopic WBC 20 H Urine Bacteria FEW A Urine Yeast (Budding) MANY A Urine Hemoglobin NEGATIVE Urine Glucose NEGATIVE Urine Total Protein NEGATIVE Test 01/26/17 20:13 01/26/17 23:40 01/27/17 05:25 01/27/17 05:36 Bedside Glucose 153 192 221 H White Blood Count 14.4 H Red Blood Count 3.23 L Hemoglobin 8.8 L Hematocrit 28.0 L Mean Corpuscular Volume 86.7 Mean Corpuscular Hemoglobin 27.2 L Mean Corpuscular Hemoglobin Concent 31.4 L Red Cell Distribution Width 15.9 H Platelet Count 289 Mean Platelet Volume 10.3 Neutrophils % 60.7 Lymphocytes % 22.9 Monocytes % 9.5 Eosinophils % 4.6 Basophils % 0.6 Nucleated Red Blood Cells % 0.0 Neutrophils # (Manual) 8.8 H Lymphocytes # 3.3 H Monocytes # 1.4 H Eosinophils # 0.7 H Basophils # 0.1 Nucleated Red Blood Cells # 0.0 Sodium Level 133 L Potassium Level 4.7 Chloride Level 100 Carbon Dioxide Level 32 H Anion Gap 6 L Blood Urea Nitrogen 13 Creatinine 0.53 Glucose Level 232 #H Calcium Level 8.1 L Total Bilirubin 0.2 Direct Bilirubin 0.00 Indirect Bilirubin 0.2 Aspartate Amino Transf (AST/SGOT) 34 Alanine Aminotransferase (ALT/SGPT) 27 Alkaline Phosphatase 126 H Total Protein 5.2 L Albumin 2.1 L Globulin 3.10 Albumin/Globulin Ratio 0.67 Medications Medications Current Medications Ondansetron HCl (Zofran Inj) 4 mg Q6H PRN IV NAUSEA AND/OR VOMITING; Start at 16:30 Acetaminophen (Tylenol Tab) 650 mg Q6H PRN PO PAIN LEVEL 1-3 OR FEVER Last administered on 01/17/17 06:40; Admin Dose 650 MG; Start 01/15/17 at 16:30 Magnesium Hydroxide (Milk Of Mag) 30 ml DAILY PRN PO CONSTIPATION Last administered on 01/24/17 09:15; Admin Dose 30 ML; Start 01/15/17 at 16:30 Aspirin (Halfprin) 81 mg DAILY PO Last administered on 01/26/17 10:18; Admin Dose 81 MG; Start 01/16/17 at 09:00 Losartan Potassium (Cozaar) 100 mg BID PO Last administered on 01/26/17 20:10; Admin Dose 100 MG; Start 01/15/17 at 21:00 Montelukast Sodium (Singulair) 10 mg QHS PO Last administered on 01/26/17 20:09 ; Admin Dose 10 MG; Start 01/15/17 at 21:00 IV Flush (NS 10 ml) 10 ml PRN PRN IV IV PROTOCOL; Start 01/15/17 at 18:30 Miscellaneous Information 1 ea NOTE XX ; Start 01/15/17 at 19:00 Glucose (Glutose) 15 gm Q15M PRN PO DECREASED GLUCOSE; Start 01/15/17 at 19:00 Glucose (Glutose) 22.5 gm Q15M PRN PO DECREASED GLUCOSE; Start 01/15/17 at 19: 00 Dextrose (D50w Syringe) 25 ml Q15M PRN IV DECREASED GLUCOSE Last administered on 01/21/17 20:37; Admin Dose 25 ML; Start 01/15/17 at 19:00 Dextrose (D50w Syringe) 50 ml Q15M PRN IV DECREASED GLUCOSE; Start 01/15/17 at 19:00 Glucagon (Glucagen) 1 mg Q15M PRN IM DECREASED GLUCOSE; Start 01/15/17 at 19:00 Glucose (Glutose) 15 gm Q15M PRN BUCCAL DECREASED GLUCOSE Last administered on 01/21/17 19:53; Admin Dose 15 GM; Start 01/15/17 at 19:00 Diagnostic Test (Pha) (Accu-Chek) 1 ea 02 XX Last administered on 01/22/17 02: 19; Admin Dose 1 EA; Start 01/16/17 at 02:00 Clonidine (Catapres) 0.1 mg Q6H PRN PO BLOOD PRESSURE SBP>160 Last administered on 01/16/17 23:42; Admin Dose 0.1 MG; Start 01/15/17 at 20:30 Miscellaneous Information (Pending Santyl Order For Wound Care) This patient jean baptiste... PRN PRN XX WOUND CARE; Start 01/15/17 at 22:00 Collagenase (Santyl) 1 applic DAILY TOP Last administered on 01/26/17 10:20; Admin Dose 1 APPLIC; Start 01/16/17 at 21:00 Hydralazine HCl (Apresoline) 10 mg Q6 PRN IV ELEVATED BLOOD PRESSURE Last administered on 01/17/17 03:05; Admin Dose 10 MG; Start 01/17/17 at 03:00 Acetaminophen (Tylenol Supp) 650 mg Q6H PRN [place] FEVER GREATER THAN 100.6 Last administered on 01/17/17 07:26; Admin Dose 650 MG; Start 01/17/17 at 07:00 Mupirocin (Bactroban) 1 applic BID TOP Last administered on 01/26/17 20:07; Admin Dose 1 APPLIC; Start 01/17/17 at 11:00 Ferrous Sulfate (Slow Fe) 142 mg DAILY PO Last administered on 01/26/17 10:18; Admin Dose 142 MG; Start 01/18/17 at 14:30 Calcium Carbonate (Tums) 500 mg BID PO Last administered on 01/26/17 20:10; Admin Dose 500 MG; Start 01/18/17 at 14:30 Nystatin (Nystatin Powder) 1 applic BID TOP Last administered on 01/26/17 20:08 ; Admin Dose 1 APPLIC; Start 01/18/17 at 21:00 Sodium Hypochlorite (Dakin'S (1/4 Strength)) 1 applic BID IRR Last administered on 01/25/17 20:11; Admin Dose 1 APPLIC; Start 01/18/17 at 21:00 Acetaminophen/ Hydrocodone Bitart ([place] (5/325)) 1 tab Q4H PRN PO PAIN LEVEL 4 -7; Start 01/19/17 at 12:00 Acetaminophen/ Hydrocodone Bitart ([place] (5/325)) 2 tab Q4H PRN PO PAIN LEVEL 7 -10; Start 01/19/17 at 12:00 Docusate Sodium (Colace) 100 mg BID PRN PO CONSTIPATION; Start 01/19/17 at 12: 00 Bisacodyl (Dulcolax Supp) 10 mg BID PRN [place] CONSTIPATION; Start 01/19/17 at 12: 00 Sodium Biphosphate/ Sodium Phosphate 133 ml 133 ml BID PRN [place] CONSTIPATION; Start 01/19/17 at 12:00 Meropenem/Sodium Chloride (Merrem 1 Gm/50 ml (Pmx)) 50 ml @ 200 mls/hr Q8 IVPB Last administered on 01/27/17 05:23; Admin Dose 200 MLS/HR; Start 01/19/17 at 15:00 Famotidine (Pepcid) 20 mg DAILY PO Last administered on 01/26/17 10:18; Admin Dose 20 MG; Start 01/21/17 at 09:00 Hydromorphone HCl (Dilaudid) 3 mg Q3H PRN IV PAIN Last administered on 10:21; Admin Dose 3 MG; Start 01/20/17 at 23:00; Status Future Hold Zolpidem Tartrate (Ambien) 10 mg HS PRN PO INSOMNIA Last administered on 22:16; Admin Dose 10 MG; Start 01/21/17 at 13:30 IV Flush (NS 10 ml) 10 ml PRN PRN IV IV PROTOCOL; Start 01/21/17 at 19:00 Insulin Human NPH 10 unit 10 unit BID@08,20 SC Last administered on 01/26/17 20 :14; Admin Dose 10 UNIT; Start 01/22/17 at 08:00 Potassium Chloride/Dextrose/ Sod Cl (D5-1/2ns + KCl 20 Meq) 1,000 ml @ 100 mls/ hr Q10H IV Last administered on 01/27/17 01:37; Admin Dose 100 MLS/HR; Start at 23:00 Zinc Sulfate (Zinc Sulfate) 220 mg DAILY GTB Last administered on 01/26/17 10: 18; Admin Dose 220 MG; Start 01/23/17 at 15:30; Stop 02/05/17 at 09:01 Ascorbic Acid (Vitamin C) 500 mg BID GTB Last administered on 01/26/17 20:10; Admin Dose 500 MG; Start 01/23/17 at 21:00 Multivitamins (Multivitamin) 30 ml DAILY GTB Last administered on 01/26/17 10: 17; Admin Dose 30 ML; Start 01/23/17 at 17:00 Insulin Aspart (Novolog Insulin Pen) NOVOLOG *MODERATE* ALGORITHM Q6 SC Last administered on 01/27/17 05:50; Admin Dose 2 UNIT; Start 01/23/17 at 18:00 Apixaban 5 mg 5 mg BID PO Last administered on 01/26/17 20:09; Admin Dose 5 MG ; Start 01/24/17 at 09:00 Vancomycin HCl/ Sodium Chloride (Vancocin/NS) 150 ml @ 75 mls/hr Q24H IVPB Last administered on 01/26/17 18:02; Admin Dose 75 MLS/HR; Start 01/26/17 at 18: 00 Neomycin/ Polymyxin/ Bacitracin (Neosporin Topical Oint) 1 applic DAILY@21 TOP Last administered on 01/26/17 20:08; Admin Dose 1 APPLIC; Start 01/25/17 at 21:00 Hydromorphone HCl (Dilaudid) 2 mg Q3 PRN IV PAIN Last administered on 01/27/17 05:51; Admin Dose 2 MG; Start 01/26/17 at 15:00 ANTHONY WOODARD MD Jan 27, 2017 07:59
[2017-01-27 08:07] VITALS: BP 128/57; RESP 18
[2017-01-27] MEDS: COLLAGENASE 30 GM TUBE TOP SCH (09:00)
[2017-01-27] MEDS: SODIUM HYPOCHLORITE 0.125% 473 ML BTL IRR SCH ×2 (09:00→20:26)
[2017-01-27] MEDS: APIXABAN 5 MG TABLET PO SCH ×2 (09:38→20:22)
[2017-01-27] MEDS: ASPIRIN (EC) 81 MG TAB PO SCH (09:38)
[2017-01-27] MEDS: MULTIVITAMINS 30 ML CUP GTB SCH (09:39)
[2017-01-27] MEDS: ZINC SULFATE 220 MG CAP GTB SCH (09:39)
[2017-01-27] MEDS: CALCIUM CARBONATE 500 MG CHEW TAB PO SCH ×2 (09:39→20:23)
[2017-01-27] MEDS: ASCORBIC ACID 500 MG TAB GTB SCH ×2 (09:39→20:23)
[2017-01-27] MEDS: FAMOTIDINE 20 MG TAB PO SCH (09:39)
[2017-01-27] MEDS: LOSARTAN 50 MG TAB PO SCH ×2 (09:40→20:24)
[2017-01-27] MEDS: FERROUS SULFATE (SR) 142 MG TAB PO SCH (09:40)
[2017-01-27] MEDS: MUPIROCIN 2% 22 GM OINT TOP SCH ×2 (09:41→20:24)
[2017-01-27] MEDS: NYSTATIN 30 GM POWDER BTL TOP SCH ×2 (09:43→20:25)
[2017-01-27] MEDS: NPH, HUMAN INSULIN ISOPHANE 3ML VIAL SC SCH ×2 (09:53→20:34)
[2017-01-27 14:35] VITALS: BP 144/44; PULSE 85; RESP 20
--- NOTE | 2017-01-27 17:05 | PN ---
Date/Time of Note Date/Time of Note DATE: 01/27/17 TIME: 17:04 Assessment/Plan VTE Prophylaxis VTE Prophylaxis Intervention: other Lines/Catheters IV Catheter Type (from Nrsg): PICC Line Central line still needed: Yes Urinary Cath still in place: Yes Reason Cath still needed: skin wounds contaminated by urine Assessment/Plan Assessment/Plan sacral stage IV decub, growing proteus and ecoli and s.aureus. on merrem/vanco , being treated by ID. 02/19 debrided and eval for osteo. called ortho- they report that nothing for them to do regarding fx or osteo of sacrum. wbc improving. poor appetite- may be due to pain meds. for the next 24 hours will cont and then try to extend time between doses and also decrease dose. gtube in place. discussed with family the goal to decrease the pain med to wake her up. ok to give oral food. aspir precautions. 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 pt changed to elliquis h/o left dvt of UE. now on elliquis Subjective 24 Hr Interval Summary Free Text/Dictation still sedated. c/o belly pain. daughter at bedside and knows were trying to decrease the pain med. she would like us to give the methadone and not the dilaudid. Exam/Review of Systems Vital Signs Vitals Vital Signs Date Time Temp Pulse Resp B/P Pulse Ox O2 Delivery O2 Flow Rate FiO2 01/27/17 14:35 98.4 85 20 144/44 99 Nasal Cannula 2.0 Intake and Output 01/26/17 01/26/17 01/27/17 15:00 23:00 07:00 Intake Total 300 ml 1620 ml 1820 ml Output Total 1800 ml 1825 ml Balance 300 ml -180 ml -5 ml Results Result Diagram: 01/27/17 0536 01/27/17 0536 Results 24 hrs Laboratory Tests Test 01/26/17 17:46 01/26/17 20:13 01/26/17 23:40 01/27/17 05:25 Bedside Glucose 192 153 192 221 H Test 01/27/17 05:36 01/27/17 09:52 01/27/17 12:53 White Blood Count 14.4 H Red Blood Count 3.23 L Hemoglobin 8.8 L Hematocrit 28.0 L Mean Corpuscular Volume 86.7 Mean Corpuscular Hemoglobin 27.2 L Mean Corpuscular Hemoglobin Concent 31.4 L Red Cell Distribution Width 15.9 H Platelet Count 289 Mean Platelet Volume 10.3 Neutrophils % 60.7 Lymphocytes % 22.9 Monocytes % 9.5 Eosinophils % 4.6 Basophils % 0.6 Nucleated Red Blood Cells % 0.0 Neutrophils # (Manual) 8.8 H Lymphocytes # 3.3 H Monocytes # 1.4 H Eosinophils # 0.7 H Basophils # 0.1 Nucleated Red Blood Cells # 0.0 Sodium Level 133 L Potassium Level 4.7 Chloride Level 100 Carbon Dioxide Level 32 H Anion Gap 6 L Blood Urea Nitrogen 13 Creatinine 0.53 Glucose Level 232 #H Calcium Level 8.1 L Total Bilirubin 0.2 Direct Bilirubin 0.00 Indirect Bilirubin 0.2 Aspartate Amino Transf (AST/SGOT) 34 Alanine Aminotransferase (ALT/SGPT) 27 Alkaline Phosphatase 126 H Total Protein 5.2 L Albumin 2.1 L Globulin 3.10 Albumin/Globulin Ratio 0.67 Bedside Glucose 259 H 232 H Medications Medications Current Medications Ondansetron HCl (Zofran Inj) 4 mg Q6H PRN IV NAUSEA AND/OR VOMITING; Start at 16:30 Acetaminophen (Tylenol Tab) 650 mg Q6H PRN PO PAIN LEVEL 1-3 OR FEVER Last administered on 01/17/17 06:40; Admin Dose 650 MG; Start 01/15/17 at 16:30 Magnesium Hydroxide (Milk Of Mag) 30 ml DAILY PRN PO CONSTIPATION Last administered on 01/24/17 09:15; Admin Dose 30 ML; Start 01/15/17 at 16:30 Aspirin (Halfprin) 81 mg DAILY PO Last administered on 01/27/17 09:38; Admin Dose 81 MG; Start 01/16/17 at 09:00 Losartan Potassium (Cozaar) 100 mg BID PO Last administered on 01/27/17 09:40; Admin Dose 100 MG; Start 01/15/17 at 21:00 Montelukast Sodium (Singulair) 10 mg QHS PO Last administered on 01/26/17 20:09 ; Admin Dose 10 MG; Start 01/15/17 at 21:00 IV Flush (NS 10 ml) 10 ml PRN PRN IV IV PROTOCOL; Start 01/15/17 at 18:30 Miscellaneous Information 1 ea NOTE XX ; Start 01/15/17 at 19:00 Glucose (Glutose) 15 gm Q15M PRN PO DECREASED GLUCOSE; Start 01/15/17 at 19:00 Glucose (Glutose) 22.5 gm Q15M PRN PO DECREASED GLUCOSE; Start 01/15/17 at 19: 00 Dextrose (D50w Syringe) 25 ml Q15M PRN IV DECREASED GLUCOSE Last administered on 01/21/17 20:37; Admin Dose 25 ML; Start 01/15/17 at 19:00 Dextrose (D50w Syringe) 50 ml Q15M PRN IV DECREASED GLUCOSE; Start 01/15/17 at 19:00 Glucagon (Glucagen) 1 mg Q15M PRN IM DECREASED GLUCOSE; Start 01/15/17 at 19:00 Glucose (Glutose) 15 gm Q15M PRN BUCCAL DECREASED GLUCOSE Last administered on 01/21/17 19:53; Admin Dose 15 GM; Start 01/15/17 at 19:00 Diagnostic Test (Pha) (Accu-Chek) 1 ea 02 XX Last administered on 01/22/17 02: 19; Admin Dose 1 EA; Start 01/16/17 at 02:00 Clonidine (Catapres) 0.1 mg Q6H PRN PO BLOOD PRESSURE SBP>160 Last administered on 01/16/17 23:42; Admin Dose 0.1 MG; Start 01/15/17 at 20:30 Miscellaneous Information (Pending Santyl Order For Wound Care) This patient jean baptiste... PRN PRN XX WOUND CARE; Start 01/15/17 at 22:00 Collagenase (Santyl) 1 applic DAILY TOP Last administered on 01/26/17 10:20; Admin Dose 1 APPLIC; Start 01/16/17 at 21:00 Hydralazine HCl (Apresoline) 10 mg Q6 PRN IV ELEVATED BLOOD PRESSURE Last administered on 01/17/17 03:05; Admin Dose 10 MG; Start 01/17/17 at 03:00 Acetaminophen (Tylenol Supp) 650 mg Q6H PRN [place] FEVER GREATER THAN 100.6 Last administered on 01/17/17 07:26; Admin Dose 650 MG; Start 01/17/17 at 07:00 Mupirocin (Bactroban) 1 applic BID TOP Last administered on 01/27/17 09:41; Admin Dose 1 APPLIC; Start 01/17/17 at 11:00 Ferrous Sulfate (Slow Fe) 142 mg DAILY PO Last administered on 01/27/17 09:40; Admin Dose 142 MG; Start 01/18/17 at 14:30 Calcium Carbonate (Tums) 500 mg BID PO Last administered on 01/27/17 09:39; Admin Dose 500 MG; Start 01/18/17 at 14:30 Nystatin (Nystatin Powder) 1 applic BID TOP Last administered on 01/27/17 09:43 ; Admin Dose 1 APPLIC; Start 01/18/17 at 21:00 Sodium Hypochlorite (Dakin'S (1/4 Strength)) 1 applic BID IRR Last administered on 01/25/17 20:11; Admin Dose 1 APPLIC; Start 01/18/17 at 21:00 Acetaminophen/ Hydrocodone Bitart ([place] (5/325)) 1 tab Q4H PRN PO PAIN LEVEL 4 -7; Start 01/19/17 at 12:00 Acetaminophen/ Hydrocodone Bitart ([place] (5/325)) 2 tab Q4H PRN PO PAIN LEVEL 7 -10; Start 01/19/17 at 12:00 Docusate Sodium (Colace) 100 mg BID PRN PO CONSTIPATION; Start 01/19/17 at 12: 00 Bisacodyl (Dulcolax Supp) 10 mg BID PRN [place] CONSTIPATION; Start 01/19/17 at 12: 00 Sodium Biphosphate/ Sodium Phosphate 133 ml 133 ml BID PRN [place] CONSTIPATION; Start 01/19/17 at 12:00 Meropenem/Sodium Chloride (Merrem 1 Gm/50 ml (Pmx)) 50 ml @ 200 mls/hr Q8 IVPB Last administered on 01/27/17 14:21; Admin Dose 200 MLS/HR; Start 01/19/17 at 15:00 Famotidine (Pepcid) 20 mg DAILY PO Last administered on 01/27/17 09:39; Admin Dose 20 MG; Start 01/21/17 at 09:00 Hydromorphone HCl (Dilaudid) 3 mg Q3H PRN IV PAIN Last administered on 10:21; Admin Dose 3 MG; Start 01/20/17 at 23:00; Status Future Hold Zolpidem Tartrate (Ambien) 10 mg HS PRN PO INSOMNIA Last administered on 22:16; Admin Dose 10 MG; Start 01/21/17 at 13:30 IV Flush (NS 10 ml) 10 ml PRN PRN IV IV PROTOCOL; Start 01/21/17 at 19:00 Insulin Human NPH 10 unit 10 unit BID@08,20 SC Last administered on 01/27/17 09 :53; Admin Dose 10 UNIT; Start 01/22/17 at 08:00 Potassium Chloride/Dextrose/ Sod Cl (D5-1/2ns + KCl 20 Meq) 1,000 ml @ 100 mls/ hr Q10H IV Last administered on 01/27/17 12:52; Admin Dose 100 MLS/HR; Start at 23:00 Zinc Sulfate (Zinc Sulfate) 220 mg DAILY GTB Last administered on 01/27/17 09: 39; Admin Dose 220 MG; Start 01/23/17 at 15:30; Stop 02/05/17 at 09:01 Ascorbic Acid (Vitamin C) 500 mg BID GTB Last administered on 01/27/17 09:39; Admin Dose 500 MG; Start 01/23/17 at 21:00 Multivitamins (Multivitamin) 30 ml DAILY GTB Last administered on 01/27/17 09: 39; Admin Dose 30 ML; Start 01/23/17 at 17:00 Apixaban 5 mg 5 mg BID PO Last administered on 01/27/17 09:38; Admin Dose 5 MG ; Start 01/24/17 at 09:00 Vancomycin HCl/ Sodium Chloride (Vancocin/NS) 150 ml @ 75 mls/hr Q24H IVPB Last administered on 01/26/17 18:02; Admin Dose 75 MLS/HR; Start 01/26/17 at 18: 00 Neomycin/ Polymyxin/ Bacitracin (Neosporin Topical Oint) 1 applic DAILY@21 TOP Last administered on 01/26/17 20:08; Admin Dose 1 APPLIC; Start 01/25/17 at 21:00 Hydromorphone HCl (Dilaudid) 2 mg Q3 PRN IV PAIN Last administered on 9/6/17at 16:09; Admin Dose 2 MG; Start 01/26/17 at 15:00 Insulin Aspart (Novolog Insulin Pen) NOVOLOG *MODERATE* ALGORITHM Q4 SC ; Start 01/27/17 at 17:00 RIDGE MATTHEWS MD Jan 27, 2017 17:05
[2017-01-27] MEDS: VANCOMYCIN 750 MG in SOD CHLORIDE 0.9% 150 ML IVPB SCH (17:18)
[2017-01-27] MEDS: HYDROCODONE/APAP (5/325) TAB PO PRN (20:23)
[2017-01-27] MEDS: MONTELUKAST 10 MG TAB PO SCH (20:23)
[2017-01-27] MEDS: NEOMYC/POLYMYX/BACIT 30 GM OINT TOP SCH (20:26)
[2017-01-27 21:11] VITALS: BP 130/58; RESP 18
[2017-01-28] MEDS: ACCU-CHEK XX SCH (01:39)
[2017-01-28] MEDS: INSULIN ASPART [NOVOLOG] 3 ML PEN SC SCH ×7 (01:41→21:00)
[2017-01-28] MEDS: D5W-0.45 NACL + KCL 20 MEQ 1,000 ML IV SCH (01:42)
[2017-01-28 02:56] VITALS: BP 128/83; RESP 18
[2017-01-28] MEDS: HYDROmorphONE 2 MG/ML SYG IV PRN ×5 (04:35→21:57)
[2017-01-28] MEDS: MEROPENEM 1 GM/50ML(PMX) 50 ML IVPB SCH ×3 (04:44→21:28)
[2017-01-28 05:53] LABS: BASOPHIL # 0.1 10^3/ul (0.0-0.1); BASOPHILS % 0.5 % (0.0-2.0); EOSINOPHILS # 0.6 10^3/ul (0.0-0.5); EOSINOPHILS % 3.9 % (0.0-7.0); HEMATOCRIT 30.6 % (37.0-47.0); HEMOGLOBIN 9.6 g/dl (12.0-16.0); LYMPHOCYTES # 3.6 10^3/ul (0.8-2.9); LYMPHOCYTES % 21.7 % (15.0-51.0); MEAN CORPUSCULAR HGB CONC 31.4 g/dl (32.0-37.0); MEAN CORPUSCULAR VOLUME 86.2 fl (82.0-101.0); MEAN PLATELET VOLUME 10.2 fl (7.4-10.4); MONOCYTE # 1.4 10^3/ul (0.3-0.9); MONOCYTES % 8.8 % (0.0-11.0); NEUTROPHILS % 63.7 % (39.0-77.0); PLATELET COUNT 330 10^3/UL (140-415); RED BLOOD COUNT 3.55 10^6/ul (4.20-5.40); RED CELL DISTRIBUTION WIDTH 15.8 % (11.5-14.5); WHITE BLOOD COUNT 16.4 10^3/ul (4.8-10.8)
[2017-01-28 06:23] LABS: ALBUMIN 2.3 g/dl (3.3-4.9); ALBUMIN/GLOBULIN RATIO 0.63; BILIRUBIN,INDIRECT 0.3 mg/dl (0-1.1); BILIRUBIN,TOTAL 0.3 mg/dl (0.2-1.3); CALCIUM 8.4 mg/dl (8.4-10.2); CREATININE 0.51 mg/dl (0.44-1.00); POTASSIUM 4.4 mmol/L (3.5-5.1); TOTAL PROTEIN 5.9 g/dl (6.1-8.1)
[2017-01-28] MEDS ORDERED: SILVER NITRATE SWAB TOP STA (07:05)
--- NOTE | 2017-01-28 08:02 | CONS ---
Date/Time of Note Date/Time of Note DATE: 01/28/17 TIME: 07:57 Consult Date/Type/Reason Admit Date/Time Jan 15, 2017 at 14:33 Initial Consult Date 01/19/17 Type of Consultation: GI Ordering Provider: RIDGE MATTHEWS MD Subjective Called by nurse because of 10cc blood around G tiube Objective Vital Signs Date Time Temp Pulse Resp B/P Pulse Ox O2 Delivery O2 Flow Rate FiO2 01/28/17 02:56 98.6 85 18 128/83 100 01/27/17 23:00 2.0 01/27/17 14:35 Nasal Cannula Intake and Output 01/27/17 01/27/17 01/28/17 15:00 23:00 07:00 Intake Total 650 ml 1120 ml 1350 ml Output Total 2025 ml 2700 ml Balance 650 ml -905 ml -1350 ml Exam G Tube site examined Trivial amount of blood at G tube site Cauterization of trivial bleeding with silver nitrate stick Cleaned with peroxide and saline Neosporin and dressing applied Results/Medications Result Diagram: 01/28/17 0456 01/28/17 0456 Results 24 hrs Laboratory Tests Test 01/27/17 09:52 01/27/17 12:53 01/27/17 17:17 01/27/17 20:31 Bedside Glucose 259 H 232 H 204 207 Test 01/28/17 01:38 01/28/17 04:40 01/28/17 04:56 Bedside Glucose 215 262 H White Blood Count 16.4 H Red Blood Count 3.55 L Hemoglobin 9.6 L Hematocrit 30.6 L Mean Corpuscular Volume 86.2 Mean Corpuscular Hemoglobin 27.0 L Mean Corpuscular Hemoglobin Concent 31.4 L Red Cell Distribution Width 15.8 H Platelet Count 330 Mean Platelet Volume 10.2 Neutrophils % 63.7 Lymphocytes % 21.7 Monocytes % 8.8 Eosinophils % 3.9 Basophils % 0.5 Nucleated Red Blood Cells % 0.0 Neutrophils # (Manual) 10.4 H Lymphocytes # 3.6 H Monocytes # 1.4 H Eosinophils # 0.6 H Basophils # 0.1 Nucleated Red Blood Cells # 0.0 Sodium Level 138 Potassium Level 4.4 Chloride Level 102 Carbon Dioxide Level 31 Anion Gap 9 Blood Urea Nitrogen 13 Creatinine 0.51 Glucose Level 243 H Calcium Level 8.4 Total Bilirubin 0.3 Direct Bilirubin 0.00 Indirect Bilirubin 0.3 Aspartate Amino Transf (AST/SGOT) 20 Alanine Aminotransferase (ALT/SGPT) 25 Alkaline Phosphatase 128 H Total Protein 5.9 L Albumin 2.3 L Globulin 3.60 H Albumin/Globulin Ratio 0.63 Medications Current Medications Ondansetron HCl (Zofran Inj) 4 mg Q6H PRN IV NAUSEA AND/OR VOMITING; Start at 16:30 Acetaminophen (Tylenol Tab) 650 mg Q6H PRN PO PAIN LEVEL 1-3 OR FEVER Last administered on 01/17/17 06:40; Admin Dose 650 MG; Start 01/15/17 at 16:30 Magnesium Hydroxide (Milk Of Mag) 30 ml DAILY PRN PO CONSTIPATION Last administered on 01/24/17 09:15; Admin Dose 30 ML; Start 01/15/17 at 16:30 Aspirin (Halfprin) 81 mg DAILY PO Last administered on 01/27/17 09:38; Admin Dose 81 MG; Start 01/16/17 at 09:00 Losartan Potassium (Cozaar) 100 mg BID PO Last administered on 01/27/17 20:24; Admin Dose 100 MG; Start 01/15/17 at 21:00 Montelukast Sodium (Singulair) 10 mg QHS PO Last administered on 01/27/17 20:23 ; Admin Dose 10 MG; Start 01/15/17 at 21:00 IV Flush (NS 10 ml) 10 ml PRN PRN IV IV PROTOCOL; Start 01/15/17 at 18:30 Miscellaneous Information 1 ea NOTE XX ; Start 01/15/17 at 19:00 Glucose (Glutose) 15 gm Q15M PRN PO DECREASED GLUCOSE; Start 01/15/17 at 19:00 Glucose (Glutose) 22.5 gm Q15M PRN PO DECREASED GLUCOSE; Start 01/15/17 at 19: 00 Dextrose (D50w Syringe) 25 ml Q15M PRN IV DECREASED GLUCOSE Last administered on 01/21/17 20:37; Admin Dose 25 ML; Start 01/15/17 at 19:00 Dextrose (D50w Syringe) 50 ml Q15M PRN IV DECREASED GLUCOSE; Start 01/15/17 at 19:00 Glucagon (Glucagen) 1 mg Q15M PRN IM DECREASED GLUCOSE; Start 01/15/17 at 19:00 Glucose (Glutose) 15 gm Q15M PRN BUCCAL DECREASED GLUCOSE Last administered on 01/21/17 19:53; Admin Dose 15 GM; Start 01/15/17 at 19:00 Diagnostic Test (Pha) (Accu-Chek) 1 ea 02 XX Last administered on 01/28/17 01: 39; Admin Dose 1 EA; Start 01/16/17 at 02:00 Clonidine (Catapres) 0.1 mg Q6H PRN PO BLOOD PRESSURE SBP>160 Last administered on 01/16/17 23:42; Admin Dose 0.1 MG; Start 01/15/17 at 20:30 Miscellaneous Information (Pending Santyl Order For Wound Care) This patient jean baptiste... PRN PRN XX WOUND CARE; Start 01/15/17 at 22:00 Collagenase (Santyl) 1 applic DAILY TOP Last administered on 01/26/17 10:20; Admin Dose 1 APPLIC; Start 01/16/17 at 21:00 Hydralazine HCl (Apresoline) 10 mg Q6 PRN IV ELEVATED BLOOD PRESSURE Last administered on 01/17/17 03:05; Admin Dose 10 MG; Start 01/17/17 at 03:00 Acetaminophen (Tylenol Supp) 650 mg Q6H PRN [place] FEVER GREATER THAN 100.6 Last administered on 01/17/17 07:26; Admin Dose 650 MG; Start 01/17/17 at 07:00 Mupirocin (Bactroban) 1 applic BID TOP Last administered on 01/27/17 20:24; Admin Dose 1 APPLIC; Start 01/17/17 at 11:00 Ferrous Sulfate (Slow Fe) 142 mg DAILY PO Last administered on 01/27/17 09:40; Admin Dose 142 MG; Start 01/18/17 at 14:30 Calcium Carbonate (Tums) 500 mg BID PO Last administered on 01/27/17 20:23; Admin Dose 500 MG; Start 01/18/17 at 14:30 Nystatin (Nystatin Powder) 1 applic BID TOP Last administered on 01/27/17 20:25 ; Admin Dose 1 APPLIC; Start 01/18/17 at 21:00 Sodium Hypochlorite (Dakin'S (1/4 Strength)) 1 applic BID IRR Last administered on 01/25/17 20:11; Admin Dose 1 APPLIC; Start 01/18/17 at 21:00 Acetaminophen/ Hydrocodone Bitart ([place] (5/325)) 1 tab Q4H PRN PO PAIN LEVEL 4 -7 Last administered on 01/27/17 20:23; Admin Dose 1 TAB; Start 01/19/17 at 12: 00 Acetaminophen/ Hydrocodone Bitart ([place] (5/325)) 2 tab Q4H PRN PO PAIN LEVEL 7 -10; Start 01/19/17 at 12:00 Docusate Sodium (Colace) 100 mg BID PRN PO CONSTIPATION; Start 01/19/17 at 12: 00 Bisacodyl (Dulcolax Supp) 10 mg BID PRN [place] CONSTIPATION; Start 01/19/17 at 12: 00 Sodium Biphosphate/ Sodium Phosphate 133 ml 133 ml BID PRN [place] CONSTIPATION; Start 01/19/17 at 12:00 Meropenem/Sodium Chloride (Merrem 1 Gm/50 ml (Pmx)) 50 ml @ 200 mls/hr Q8 IVPB Last administered on 01/28/17 04:44; Admin Dose 200 MLS/HR; Start 01/19/17 at 15:00 Famotidine (Pepcid) 20 mg DAILY PO Last administered on 01/27/17 09:39; Admin Dose 20 MG; Start 01/21/17 at 09:00 Zolpidem Tartrate (Ambien) 10 mg HS PRN PO INSOMNIA Last administered on 22:16; Admin Dose 10 MG; Start 01/21/17 at 13:30 IV Flush (NS 10 ml) 10 ml PRN PRN IV IV PROTOCOL; Start 01/21/17 at 19:00 Insulin Human NPH 10 unit 10 unit BID@08,20 SC Last administered on 01/27/17 20 :34; Admin Dose 10 UNIT; Start 01/22/17 at 08:00 Potassium Chloride/Dextrose/ Sod Cl (D5-1/2ns + KCl 20 Meq) 1,000 ml @ 100 mls/ hr Q10H IV Last administered on 01/28/17 01:42; Admin Dose 100 MLS/HR; Start at 23:00 Zinc Sulfate (Zinc Sulfate) 220 mg DAILY GTB Last administered on 01/27/17 09: 39; Admin Dose 220 MG; Start 01/23/17 at 15:30; Stop 02/05/17 at 09:01 Ascorbic Acid (Vitamin C) 500 mg BID GTB Last administered on 01/27/17 20:23; Admin Dose 500 MG; Start 01/23/17 at 21:00 Multivitamins 30 ml 30 ml DAILY GTB Last administered on 01/27/17 09:39; Admin Dose 30 ML; Start 01/23/17 at 17:00 Vancomycin HCl/ Sodium Chloride (Vancocin/NS) 150 ml @ 75 mls/hr Q24H IVPB Last administered on 01/27/17 17:18; Admin Dose 75 MLS/HR; Start 01/26/17 at 18: 00 Insulin Aspart (Novolog Insulin Pen) NOVOLOG *MODERATE* ALGORITHM Q4 SC Last administered on 01/28/17 04:44; Admin Dose 3 UNIT; Start 01/27/17 at 17:00 Hydromorphone HCl (Dilaudid) 2 mg Q4H PRN IV PAIN Last administered on 04:35; Admin Dose 2 MG; Start 01/27/17 at 21:00 Neomycin/ Polymyxin/ Bacitracin (Neosporin Topical Oint) 1 applic BID TOP ; Start 01/28/17 at 09:00 Hydrogen Peroxide (Hydrogen Peroxide) 1 applic BID TOP ; Start 01/28/17 at 09:00 Assessment/Plan Chief Complaint/Hosp Course Impression s/p PEG stable - local care as above Plan: Discussed with nursing OK to restart anticoagulation Problems: RODOLFO COHEN MD Jan 28, 2017 08:01
--- NOTE | 2017-01-28 08:09 | PN ---
Date/Time of Note Date/Time of Note DATE: 01/28/17 TIME: 08:08 Assessment/Plan Lines/Catheters IV Catheter Type (from Nrsg): PICC Line Sullivan in Place (from Nrsg): Yes Assessment/Plan Assessment/Plan [facility] Progress Note Date of Service: 01/28/17 Today's Impression & Plan: Overall stable, but with osteomyelitis of sacrum, confirmed on pathology. Will need ortho eval. Discussed with daughter. With above assessment, I've recommended the following for today: 1. Cont dressing changes 2. Cont PEG tube feeds 3. Ortho eval Nature of presenting problem: High complexity Thank you again for your great care of this very pleasant patient and wonderful family. If there are any questions, please feel free to call me at [phone]. Disclaimer: Inadvertent spelling or grammatical errors are likely due to EHR/ dictation software use and do not reflect on the overall quality of patient care. Updated clinical summary: A very-pleasant but unfortunate 81-year-old lady with multiple comorbidities including diabetes mellitus complicated by left heel decubitus ulcer as well as right below the knee amputation and paroxysmal atrial fibrillation, presenting with stage IV decubitus ulcer overlying her sacrum. Comorbidities: 1. Infected stage IV sacral decubitus pressure ulcer with possible osteomyelitis of the coccyx; s/p excisional debridement with scissors of a 10 x 5 x 3.5 cm coccygeal and sacral decubitus ulcer and removal of 30 cm of tissue including small part of the coccyx bone (ostectomy, 1x1x1 cm) and down to muscle in the upper part of the ulcer area and application of 2 g of Micro Matrix paste 2. Diabetes mellitus complicated by left heel decubitus ulcer as well as right below the knee amputation 3. Paroxysmal atrial fibrillation 4. Left upper extremity DVT with superficial thrombosis 5. Hypertension 6. Aspiration pneumonia 7. Osteomyelitis at the posterior calcaneal margin, treated with meropenem and vancomycin 8. Severe malnutrition with prealbumin 3.1 after hydration and albumin of 1.5 9. Peripheral vascular disease 10. Dementia 11. BMI 27.5 Subjective: No major events or complaints; no major abd pain and under control with medications; no n/v/d; no sob or cp; + flatus; + BM; - activity Objective: Vitals: See below Exam: GENERAL: On exam, the patient was laying in bed and appeared to be comfortable and in no acute distress. Much more awake today and interactive. ABDOMEN: Soft, nontender and nondistended. Incision dressings are clean, dry and intact without any evidence of erythema, edema, discharge, or hernia. There are no peritoneal signs or guarding. PEG dressing clean and tube feeds ongoing. SKIN: Skin appears to be pink and feels warm to touch. NEUROLOGIC: Patient is arousable and follows simple commands appropriately. Exam/Review of Systems Vital Signs Vitals Vital Signs Date Time Temp Pulse Resp B/P Pulse Ox O2 Delivery O2 Flow Rate FiO2 01/28/17 02:56 98.6 85 18 128/83 100 01/27/17 23:00 2.0 01/27/17 14:35 Nasal Cannula Intake and Output 01/27/17 01/27/17 01/28/17 15:00 23:00 07:00 Intake Total 650 ml 1120 ml 1350 ml Output Total 2025 ml 2700 ml Balance 650 ml -905 ml -1350 ml Results Result Diagram: 01/28/17 0456 01/28/17 0456 OMAR HINOJOSA M.D. Jan 28, 2017 08:09
[2017-01-28 08:18] VITALS: BP 90/56; RESP 19
[2017-01-28] MEDS: HYDROGEN PEROXIDE 118 ML TOP SCH ×2 (09:00→21:32)
[2017-01-28] MEDS: SODIUM HYPOCHLORITE 0.125% 473 ML BTL IRR SCH ×2 (09:00→21:00)
[2017-01-28] MEDS: NEOMYC/POLYMYX/BACIT 30 GM OINT TOP SCH ×2 (09:00→21:37)
[2017-01-28] MEDS: FERROUS SULFATE (SR) 142 MG TAB PO SCH (09:42)
[2017-01-28] MEDS: ZINC SULFATE 220 MG CAP GTB SCH (09:42)
[2017-01-28] MEDS: MULTIVITAMINS 30 ML CUP GTB SCH (09:42)
[2017-01-28] MEDS: CALCIUM CARBONATE 500 MG CHEW TAB PO SCH ×2 (09:42→21:28)
[2017-01-28] MEDS: ASPIRIN (EC) 81 MG TAB PO SCH (09:42)
[2017-01-28] MEDS: ASCORBIC ACID 500 MG TAB GTB SCH ×2 (09:42→21:28)
[2017-01-28] MEDS: FAMOTIDINE 20 MG TAB PO SCH (09:42)
[2017-01-28 09:45] VITALS: BP 137/42; PULSE 89
[2017-01-28] MEDS: LOSARTAN 50 MG TAB PO SCH ×2 (09:46→21:28)
[2017-01-28] MEDS: NYSTATIN 30 GM POWDER BTL TOP SCH ×2 (09:47→21:31)
[2017-01-28] MEDS: MUPIROCIN 2% 22 GM OINT TOP SCH ×2 (09:47→21:32)
[2017-01-28] MEDS: COLLAGENASE 30 GM TUBE TOP SCH (09:47)
[2017-01-28] MEDS: NPH, HUMAN INSULIN ISOPHANE 3ML VIAL SC SCH ×2 (09:58→21:25)
--- NOTE | 2017-01-28 12:13 | CONS ---
Date/Time of Note Date/Time of Note DATE: 01/28/17 TIME: 12:10 Assessment/Plan Assessment/Plan Chief Complaint/Hosp Course 1) progressive sacral ulcer, surrounding cellulitis await surgical input and debridement, consider MRI depending upon surgical eval wound cx to be obtained continue with vanco/merrem check ESR, CRP in a.m. 01/17 - proteus and another GNR in wound cx continue with merrem/vanco esr and CRP are moderately elevated mrsa to nares to start bactroban await surgical input pt is more awake today and able to answer some questions in mongolian 01/18 - pt persistence of fever and elevated wbc is either due to an undrained abscess or inadequate antibiotics await wound care eval and surgical debridement will order MRI scan if no wound care is delivered by tomorrow wound cx has proteus, GNR and enterococcus continue with vanco/merrem at present 01/19 - wound cx are all sensitive to current antibiotics of vanco/merrem MRI of pelvis/abd was done but results not available pt to get debridement later this am. 01/20 - s/p debridement, some bone was shaved, MRI did not show osteo await path report continue with vanco/merrem fevers and WBC improved post debridement pt will need good nutrition to heal this wound, consider g-tube if pt not eating well 01/22 - pt to get g-tube for better nutrition continue with vanco/merrem thru 02/01/17 consider doxy for 2 weeks after that path specimen did not identify bone to examine for osteo 01/25 - WBC improved today and ESR was down from 78 to 65 no new issues continue with vanco/merrrem at present thru 02/01 then po doxy for 2 weeks 01/26 - re-culture the site continue vanco/merrem 01/27 - vac pump is applied re-cx of site has GNR so far 01/28 - acinetobacter now present and addendum to path shows osteomyelitis continue with merrem change vanco to minocycline send out for sensi's for colistin, avycaz, minocycline and tigecycline 2) L heal ulcer with eschar no surrounding redness noted on picture 3) PVD 4) recent hx of LUE DVT 5) HTN 6) leukocytosis 01/26 - get u/a and urine cx, c.dif was sent off re-culture the sacral wound site doubt a pulmonary issue 01/27 - c.dif was neg WBC has improved without change in antibiotics urine cx is NGTD (prior one was only yeast) wound cx has GNR only so far continue present management 01/28 - wound cx is now growing highly resistant acinetobacter will adjust antibiotics and await send out sensi's to verify the best regimen for pt Problems: Consultation Date/Type/Reason Admit Date/Time Jan 15, 2017 at 14:33 Initial Consult Date 01/16/17 Type of Consultation: ID Referring Provider: RIDGE MATTHEWS MD 24 HR Interval Summary Free Text/Dictation no new issues wound care nurse seeing pt and bone is exposed new addenedum to path report shows osteomyelitis spoke to nurse Exam/Review of Systems Vital Signs Vitals Vital Signs Date Time Temp Pulse Resp B/P Pulse Ox O2 Delivery O2 Flow Rate FiO2 01/28/17 09:45 89 137/42 01/28/17 08:18 99.0 19 100 01/27/17 23:00 2.0 01/27/17 14:35 Nasal Cannula Intake and Output 01/27/17 01/27/17 01/28/17 15:00 23:00 07:00 Intake Total 650 ml 1120 ml 1350 ml Output Total 2025 ml 2700 ml Balance 650 ml -905 ml -1350 ml Results Result Diagram: 01/28/17 0456 01/28/17 0456 Results 24 hrs Laboratory Tests Test 01/27/17 12:53 01/27/17 17:17 01/27/17 20:31 01/28/17 01:38 Bedside Glucose 232 H 204 207 215 Test 01/28/17 04:40 01/28/17 04:56 01/28/17 09:49 Bedside Glucose 262 H 210 White Blood Count 16.4 H Red Blood Count 3.55 L Hemoglobin 9.6 L Hematocrit 30.6 L Mean Corpuscular Volume 86.2 Mean Corpuscular Hemoglobin 27.0 L Mean Corpuscular Hemoglobin Concent 31.4 L Red Cell Distribution Width 15.8 H Platelet Count 330 Mean Platelet Volume 10.2 Neutrophils % 63.7 Lymphocytes % 21.7 Monocytes % 8.8 Eosinophils % 3.9 Basophils % 0.5 Nucleated Red Blood Cells % 0.0 Neutrophils # (Manual) 10.4 H Lymphocytes # 3.6 H Monocytes # 1.4 H Eosinophils # 0.6 H Basophils # 0.1 Nucleated Red Blood Cells # 0.0 Sodium Level 138 Potassium Level 4.4 Chloride Level 102 Carbon Dioxide Level 31 Anion Gap 9 Blood Urea Nitrogen 13 Creatinine 0.51 Glucose Level 243 H Calcium Level 8.4 Total Bilirubin 0.3 Direct Bilirubin 0.00 Indirect Bilirubin 0.3 Aspartate Amino Transf (AST/SGOT) 20 Alanine Aminotransferase (ALT/SGPT) 25 Alkaline Phosphatase 128 H Total Protein 5.9 L Albumin 2.3 L Globulin 3.60 H Albumin/Globulin Ratio 0.63 Medications Medications Current Medications Ondansetron HCl (Zofran Inj) 4 mg Q6H PRN IV NAUSEA AND/OR VOMITING; Start at 16:30 Acetaminophen (Tylenol Tab) 650 mg Q6H PRN PO PAIN LEVEL 1-3 OR FEVER Last administered on 01/17/17 06:40; Admin Dose 650 MG; Start 01/15/17 at 16:30 Magnesium Hydroxide (Milk Of Mag) 30 ml DAILY PRN PO CONSTIPATION Last administered on 01/24/17 09:15; Admin Dose 30 ML; Start 01/15/17 at 16:30 Aspirin (Halfprin) 81 mg DAILY PO Last administered on 01/28/17 09:42; Admin Dose 81 MG; Start 01/16/17 at 09:00 Losartan Potassium (Cozaar) 100 mg BID PO Last administered on 01/28/17 09:46; Admin Dose 100 MG; Start 01/15/17 at 21:00 Montelukast Sodium (Singulair) 10 mg QHS PO Last administered on 01/27/17 20:23 ; Admin Dose 10 MG; Start 01/15/17 at 21:00 IV Flush (NS 10 ml) 10 ml PRN PRN IV IV PROTOCOL; Start 01/15/17 at 18:30 Miscellaneous Information 1 ea NOTE XX ; Start 01/15/17 at 19:00 Glucose (Glutose) 15 gm Q15M PRN PO DECREASED GLUCOSE; Start 01/15/17 at 19:00 Glucose (Glutose) 22.5 gm Q15M PRN PO DECREASED GLUCOSE; Start 01/15/17 at 19: 00 Dextrose (D50w Syringe) 25 ml Q15M PRN IV DECREASED GLUCOSE Last administered on 01/21/17 20:37; Admin Dose 25 ML; Start 01/15/17 at 19:00 Dextrose (D50w Syringe) 50 ml Q15M PRN IV DECREASED GLUCOSE; Start 01/15/17 at 19:00 Glucagon (Glucagen) 1 mg Q15M PRN IM DECREASED GLUCOSE; Start 01/15/17 at 19:00 Glucose (Glutose) 15 gm Q15M PRN BUCCAL DECREASED GLUCOSE Last administered on 01/21/17 19:53; Admin Dose 15 GM; Start 01/15/17 at 19:00 Diagnostic Test (Pha) (Accu-Chek) 1 ea 02 XX Last administered on 01/28/17 01: 39; Admin Dose 1 EA; Start 01/16/17 at 02:00 Clonidine (Catapres) 0.1 mg Q6H PRN PO BLOOD PRESSURE SBP>160 Last administered on 01/16/17 23:42; Admin Dose 0.1 MG; Start 01/15/17 at 20:30 Miscellaneous Information (Pending Santyl Order For Wound Care) This patient jean baptiste... PRN PRN XX WOUND CARE; Start 01/15/17 at 22:00 Collagenase (Santyl) 1 applic DAILY TOP Last administered on 01/28/17 09:47; Admin Dose 1 APPLIC; Start 01/16/17 at 21:00 Hydralazine HCl (Apresoline) 10 mg Q6 PRN IV ELEVATED BLOOD PRESSURE Last administered on 01/17/17 03:05; Admin Dose 10 MG; Start 01/17/17 at 03:00 Acetaminophen (Tylenol Supp) 650 mg Q6H PRN [place] FEVER GREATER THAN 100.6 Last administered on 01/17/17 07:26; Admin Dose 650 MG; Start 01/17/17 at 07:00 Mupirocin (Bactroban) 1 applic BID TOP Last administered on 01/28/17 09:47; Admin Dose 1 APPLIC; Start 01/17/17 at 11:00 Ferrous Sulfate (Slow Fe) 142 mg DAILY PO Last administered on 01/28/17 09:42; Admin Dose 142 MG; Start 01/18/17 at 14:30 Calcium Carbonate (Tums) 500 mg BID PO Last administered on 01/28/17 09:42; Admin Dose 500 MG; Start 01/18/17 at 14:30 Nystatin (Nystatin Powder) 1 applic BID TOP Last administered on 01/28/17 09:47 ; Admin Dose 1 APPLIC; Start 01/18/17 at 21:00 Sodium Hypochlorite (Dakin'S (1/4 Strength)) 1 applic BID IRR Last administered on 01/25/17 20:11; Admin Dose 1 APPLIC; Start 01/18/17 at 21:00 Acetaminophen/ Hydrocodone Bitart ([place] (5/325)) 1 tab Q4H PRN PO PAIN LEVEL 4 -7 Last administered on 01/27/17 20:23; Admin Dose 1 TAB; Start 01/19/17 at 12: 00 Acetaminophen/ Hydrocodone Bitart ([place] (5/325)) 2 tab Q4H PRN PO PAIN LEVEL 7 -10; Start 01/19/17 at 12:00 Docusate Sodium (Colace) 100 mg BID PRN PO CONSTIPATION; Start 01/19/17 at 12: 00 Bisacodyl (Dulcolax Supp) 10 mg BID PRN [place] CONSTIPATION; Start 01/19/17 at 12: 00 Sodium Biphosphate/ Sodium Phosphate 133 ml 133 ml BID PRN [place] CONSTIPATION; Start 01/19/17 at 12:00 Meropenem/Sodium Chloride (Merrem 1 Gm/50 ml (Pmx)) 50 ml @ 200 mls/hr Q8 IVPB Last administered on 01/28/17 04:44; Admin Dose 200 MLS/HR; Start 01/19/17 at 15:00 Famotidine (Pepcid) 20 mg DAILY PO Last administered on 01/28/17 09:42; Admin Dose 20 MG; Start 01/21/17 at 09:00 Zolpidem Tartrate (Ambien) 10 mg HS PRN PO INSOMNIA Last administered on 22:16; Admin Dose 10 MG; Start 01/21/17 at 13:30 IV Flush (NS 10 ml) 10 ml PRN PRN IV IV PROTOCOL; Start 01/21/17 at 19:00 Insulin Human NPH 10 unit 10 unit BID@08,20 SC Last administered on 01/28/17 09 :58; Admin Dose 10 UNIT; Start 01/22/17 at 08:00 Potassium Chloride/Dextrose/ Sod Cl (D5-1/2ns + KCl 20 Meq) 1,000 ml @ 100 mls/ hr Q10H IV Last administered on 01/28/17 01:42; Admin Dose 100 MLS/HR; Start at 23:00 Zinc Sulfate (Zinc Sulfate) 220 mg DAILY GTB Last administered on 01/28/17 09: 42; Admin Dose 220 MG; Start 01/23/17 at 15:30; Stop 02/05/17 at 09:01 Ascorbic Acid (Vitamin C) 500 mg BID GTB Last administered on 01/28/17 09:42; Admin Dose 500 MG; Start 01/23/17 at 21:00 Multivitamins (Multivitamin) 30 ml DAILY GTB Last administered on 01/28/17 09: 42; Admin Dose 30 ML; Start 01/23/17 at 17:00 Insulin Aspart (Novolog Insulin Pen) NOVOLOG *MODERATE* ALGORITHM Q4 SC Last administered on 01/28/17 09:59; Admin Dose 4 UNIT; Start 01/27/17 at 17:00 Hydromorphone HCl (Dilaudid) 2 mg Q4H PRN IV PAIN Last administered on 08:33; Admin Dose 2 MG; Start 01/27/17 at 21:00 Neomycin/ Polymyxin/ Bacitracin (Neosporin Topical Oint) 1 applic BID TOP ; Start 01/28/17 at 09:00 Hydrogen Peroxide 1 applic 1 applic BID TOP ; Start 01/28/17 at 09:00 Minocycline HCl/ Sodium Chloride (Minocin/NS) 100 ml @ 100 mls/hr Q12 IVPB ; Start 01/28/17 at 21:00; Status UNANTHONY ROUSE MD Jan 28, 2017 12:13
[2017-01-28 13:34] LABS: ALBUMIN 2.3 g/dl (3.3-4.9); ALBUMIN/GLOBULIN RATIO 0.6; BILIRUBIN,INDIRECT 0.5 mg/dl (0-1.1); BILIRUBIN,TOTAL 0.5 mg/dl (0.2-1.3); CALCIUM 8.7 mg/dl (8.4-10.2); CREATININE 0.52 mg/dl (0.44-1.00); POTASSIUM 4.4 mmol/L (3.5-5.1); TOTAL PROTEIN 6.1 g/dl (6.1-8.1)
--- NOTE | 2017-01-28 13:51 | PN ---
Date/Time of Note Date/Time of Note DATE: 01/28/17 TIME: 13:45 Assessment/Plan VTE Prophylaxis VTE Prophylaxis Intervention: other Lines/Catheters IV Catheter Type (from Nrsg): PICC Line Central line still needed: Yes Urinary Cath still in place: Yes Reason Cath still needed: skin wounds contaminated by urine Assessment/Plan Assessment/Plan sacral stage IV decub, growing proteus and ecoli and s.aureus. on merrem/vanco , being treated by ID. 02/19 debrided and eval for osteo. called ortho- they report that nothing for them to do regarding fx or osteo of sacrum. wbc improving. path report +osteo. ortho called and will not treat. poor appetite- may be due to pain meds. for the next 24 hours will cont and then try to extend time between doses and also decrease dose. gtube in place. mentation better with less pain med. will open eyes and anwer questions today. mrsa nares on bactroban nares left heal osteo- pod treating htn- been steady dmII since gtube feeding, adjusting the insulin. ivf can be d/c'd paroxysmal afib on last admission- occurred during sepsis and intubation. pt changed to elliquis h/o left dvt of UE. now on elliquis Subjective 24 Hr Interval Summary Free Text/Dictation more awake today. answering question. the pain med being decreased. ortho reports wont treat sacral osteo. gtube site with blood-resolved. Exam/Review of Systems Vital Signs Vitals Vital Signs Date Time Temp Pulse Resp B/P Pulse Ox O2 Delivery O2 Flow Rate FiO2 01/28/17 09:45 89 137/42 01/28/17 08:18 99.0 19 100 01/27/17 23:00 2.0 01/27/17 14:35 Nasal Cannula Intake and Output 01/27/17 01/27/17 01/28/17 15:00 23:00 07:00 Intake Total 650 ml 1120 ml 1350 ml Output Total 2025 ml 2700 ml Balance 650 ml -905 ml -1350 ml Results Result Diagram: 01/28/17 0456 01/28/17 0456 Results 24 hrs Laboratory Tests Test 01/27/17 17:17 01/27/17 20:31 01/28/17 01:38 01/28/17 04:40 Bedside Glucose 204 207 215 262 H Test 01/28/17 04:56 01/28/17 09:49 01/28/17 12:53 01/28/17 13:00 White Blood Count 16.4 H Red Blood Count 3.55 L Hemoglobin 9.6 L Hematocrit 30.6 L Mean Corpuscular Volume 86.2 Mean Corpuscular Hemoglobin 27.0 L Mean Corpuscular Hemoglobin Concent 31.4 L Red Cell Distribution Width 15.8 H Platelet Count 330 Mean Platelet Volume 10.2 Neutrophils % 63.7 Lymphocytes % 21.7 Monocytes % 8.8 Eosinophils % 3.9 Basophils % 0.5 Nucleated Red Blood Cells % 0.0 Neutrophils # (Manual) 10.4 H Lymphocytes # 3.6 H Monocytes # 1.4 H Eosinophils # 0.6 H Basophils # 0.1 Nucleated Red Blood Cells # 0.0 Sodium Level 138 135 Potassium Level 4.4 4.4 Chloride Level 102 101 Carbon Dioxide Level 31 32 H Anion Gap 9 6 L Blood Urea Nitrogen 13 12 Creatinine 0.51 0.52 Glucose Level 243 H 218 Calcium Level 8.4 8.7 Total Bilirubin 0.3 0.5 Direct Bilirubin 0.00 0.00 Indirect Bilirubin 0.3 0.5 Aspartate Amino Transf (AST/SGOT) 20 20 Alanine Aminotransferase (ALT/SGPT) 25 24 Alkaline Phosphatase 128 H 130 H Total Protein 5.9 L 6.1 Albumin 2.3 L 2.3 L Globulin 3.60 H 3.80 H Albumin/Globulin Ratio 0.63 0.60 Bedside Glucose 210 225 H Medications Medications Current Medications Ondansetron HCl (Zofran Inj) 4 mg Q6H PRN IV NAUSEA AND/OR VOMITING; Start at 16:30 Acetaminophen (Tylenol Tab) 650 mg Q6H PRN PO PAIN LEVEL 1-3 OR FEVER Last administered on 01/17/17 06:40; Admin Dose 650 MG; Start 01/15/17 at 16:30 Magnesium Hydroxide (Milk Of Mag) 30 ml DAILY PRN PO CONSTIPATION Last administered on 01/24/17 09:15; Admin Dose 30 ML; Start 01/15/17 at 16:30 Aspirin (Halfprin) 81 mg DAILY PO Last administered on 01/28/17 09:42; Admin Dose 81 MG; Start 01/16/17 at 09:00 Losartan Potassium (Cozaar) 100 mg BID PO Last administered on 01/28/17 09:46; Admin Dose 100 MG; Start 01/15/17 at 21:00 Montelukast Sodium (Singulair) 10 mg QHS PO Last administered on 01/27/17 20:23 ; Admin Dose 10 MG; Start 01/15/17 at 21:00 IV Flush (NS 10 ml) 10 ml PRN PRN IV IV PROTOCOL; Start 01/15/17 at 18:30 Miscellaneous Information 1 ea NOTE XX ; Start 01/15/17 at 19:00 Glucose (Glutose) 15 gm Q15M PRN PO DECREASED GLUCOSE; Start 01/15/17 at 19:00 Glucose (Glutose) 22.5 gm Q15M PRN PO DECREASED GLUCOSE; Start 01/15/17 at 19: 00 Dextrose (D50w Syringe) 25 ml Q15M PRN IV DECREASED GLUCOSE Last administered on 01/21/17 20:37; Admin Dose 25 ML; Start 01/15/17 at 19:00 Dextrose (D50w Syringe) 50 ml Q15M PRN IV DECREASED GLUCOSE; Start 01/15/17 at 19:00 Glucagon (Glucagen) 1 mg Q15M PRN IM DECREASED GLUCOSE; Start 01/15/17 at 19:00 Glucose (Glutose) 15 gm Q15M PRN BUCCAL DECREASED GLUCOSE Last administered on 01/21/17 19:53; Admin Dose 15 GM; Start 01/15/17 at 19:00 Diagnostic Test (Pha) (Accu-Chek) 1 ea 02 XX Last administered on 01/28/17 01: 39; Admin Dose 1 EA; Start 01/16/17 at 02:00 Clonidine (Catapres) 0.1 mg Q6H PRN PO BLOOD PRESSURE SBP>160 Last administered on 01/16/17 23:42; Admin Dose 0.1 MG; Start 01/15/17 at 20:30 Miscellaneous Information (Pending Santyl Order For Wound Care) This patient jean baptiste... PRN PRN XX WOUND CARE; Start 01/15/17 at 22:00 Collagenase (Santyl) 1 applic DAILY TOP Last administered on 01/28/17 09:47; Admin Dose 1 APPLIC; Start 01/16/17 at 21:00 Hydralazine HCl (Apresoline) 10 mg Q6 PRN IV ELEVATED BLOOD PRESSURE Last administered on 01/17/17 03:05; Admin Dose 10 MG; Start 01/17/17 at 03:00 Acetaminophen (Tylenol Supp) 650 mg Q6H PRN [place] FEVER GREATER THAN 100.6 Last administered on 01/17/17 07:26; Admin Dose 650 MG; Start 01/17/17 at 07:00 Mupirocin (Bactroban) 1 applic BID TOP Last administered on 01/28/17 09:47; Admin Dose 1 APPLIC; Start 01/17/17 at 11:00 Ferrous Sulfate (Slow Fe) 142 mg DAILY PO Last administered on 01/28/17 09:42; Admin Dose 142 MG; Start 01/18/17 at 14:30 Calcium Carbonate (Tums) 500 mg BID PO Last administered on 01/28/17 09:42; Admin Dose 500 MG; Start 01/18/17 at 14:30 Nystatin (Nystatin Powder) 1 applic BID TOP Last administered on 01/28/17 09:47 ; Admin Dose 1 APPLIC; Start 01/18/17 at 21:00 Sodium Hypochlorite (Dakin'S (1/4 Strength)) 1 applic BID IRR Last administered on 01/25/17 20:11; Admin Dose 1 APPLIC; Start 01/18/17 at 21:00 Acetaminophen/ Hydrocodone Bitart ([place] (5/325)) 1 tab Q4H PRN PO PAIN LEVEL 4 -7 Last administered on 01/27/17 20:23; Admin Dose 1 TAB; Start 01/19/17 at 12: 00 Acetaminophen/ Hydrocodone Bitart ([place] (5/325)) 2 tab Q4H PRN PO PAIN LEVEL 7 -10; Start 01/19/17 at 12:00 Docusate Sodium (Colace) 100 mg BID PRN PO CONSTIPATION; Start 01/19/17 at 12: 00 Bisacodyl (Dulcolax Supp) 10 mg BID PRN IN CONSTIPATION; Start 01/19/17 at 12: 00 Sodium Biphosphate/ Sodium Phosphate 133 ml 133 ml BID PRN IN CONSTIPATION; Start 01/19/17 at 12:00 Meropenem/Sodium Chloride (Merrem 1 Gm/50 ml (Pmx)) 50 ml @ 200 mls/hr Q8 IVPB Last administered on 01/28/17 13:03; Admin Dose 200 MLS/HR; Start 01/19/17 at 15:00 Famotidine (Pepcid) 20 mg DAILY PO Last administered on 01/28/17 09:42; Admin Dose 20 MG; Start 01/21/17 at 09:00 Zolpidem Tartrate (Ambien) 10 mg HS PRN PO INSOMNIA Last administered on 22:16; Admin Dose 10 MG; Start 01/21/17 at 13:30 IV Flush (NS 10 ml) 10 ml PRN PRN IV IV PROTOCOL; Start 01/21/17 at 19:00 Insulin Human NPH 10 unit 10 unit BID@08,20 SC Last administered on 01/28/17 09 :58; Admin Dose 10 UNIT; Start 01/22/17 at 08:00 Potassium Chloride/Dextrose/ Sod Cl (D5-1/2ns + KCl 20 Meq) 1,000 ml @ 100 mls/ hr Q10H IV Last administered on 01/28/17 01:42; Admin Dose 100 MLS/HR; Start at 23:00 Zinc Sulfate (Zinc Sulfate) 220 mg DAILY GTB Last administered on 01/28/17 09: 42; Admin Dose 220 MG; Start 01/23/17 at 15:30; Stop 02/05/17 at 09:01 Ascorbic Acid (Vitamin C) 500 mg BID GTB Last administered on 01/28/17 09:42; Admin Dose 500 MG; Start 01/23/17 at 21:00 Multivitamins (Multivitamin) 30 ml DAILY GTB Last administered on 01/28/17 09: 42; Admin Dose 30 ML; Start 01/23/17 at 17:00 Insulin Aspart (Novolog Insulin Pen) NOVOLOG *MODERATE* ALGORITHM Q4 SC Last administered on 01/28/17 12:56; Admin Dose 6 UNIT; Start 01/27/17 at 17:00 Hydromorphone HCl (Dilaudid) 2 mg Q4H PRN IV PAIN Last administered on 12:47; Admin Dose 2 MG; Start 01/27/17 at 21:00 Neomycin/ Polymyxin/ Bacitracin (Neosporin Topical Oint) 1 applic BID TOP ; Start 01/28/17 at 09:00 Hydrogen Peroxide 1 applic 1 applic BID TOP ; Start 01/28/17 at 09:00 Minocycline HCl/ Sodium Chloride (Minocin/NS) 100 ml @ 100 mls/hr Q12 IVPB ; Start 01/28/17 at 21:00 RIDGE MATTHEWS MD Jan 28, 2017 13:51
[2017-01-28] MEDS: APIXABAN 5 MG TABLET PO SCH ×2 (14:26→21:28)
[2017-01-28 15:06] VITALS: BP 136/68; RESP 19
--- NOTE | 2017-01-28 15:32 | CONS ---
Date/Time of Note Date/Time of Note DATE: 01/28/17 TIME: 15:31 Assessment/Plan Assessment/Plan Additional Assessment/Plan Sacral decubiti DVT of left upper extremity History of paroxysmal atrial fibrillation Preserved ejection fraction Peripheral arterial disease -Patient tolerating Eliquis with stable hemoglobin. Blood pressure trend overall remains stable. No new cardiac orders at the current time. Consultation Date/Type/Reason Admit Date/Time Jan 15, 2017 at 14:33 Initial Consult Date 01/19/17 Type of Consultation: cv Referring Provider: RIDGE MATTHEWS MD 24 HR Interval Summary Free Text/Dictation Patient seen and examined. Denies shortness of breath Exam/Review of Systems Vital Signs Vitals Vital Signs Date Time Temp Pulse Resp B/P Pulse Ox O2 Delivery O2 Flow Rate FiO2 01/28/17 15:06 98.6 83 19 136/68 100 01/28/17 09:00 Nasal Cannula 2.0 Intake and Output 01/27/17 01/27/17 01/28/17 15:00 23:00 07:00 Intake Total 650 ml 1120 ml 1350 ml Output Total 2025 ml 2700 ml Balance 650 ml -905 ml -1350 ml Exam Following commands, no apparent distress Constitutional: alert Head: normocephalic Respiratory: other (Coarse breath sounds bilaterally, no wheezing) Cardiovascular: other (S1-S2 heard), regular rate and rhythm Gastrointestinal: bowel sounds, non-tender, soft Extremities: edema Results Result Diagram: 01/28/17 0456 01/28/17 1300 Results 24 hrs Laboratory Tests Test 01/27/17 17:17 01/27/17 20:31 01/28/17 01:38 01/28/17 04:40 Bedside Glucose 204 207 215 262 H Test 01/28/17 04:56 01/28/17 09:49 01/28/17 12:53 01/28/17 13:00 White Blood Count 16.4 H Red Blood Count 3.55 L Hemoglobin 9.6 L Hematocrit 30.6 L Mean Corpuscular Volume 86.2 Mean Corpuscular Hemoglobin 27.0 L Mean Corpuscular Hemoglobin Concent 31.4 L Red Cell Distribution Width 15.8 H Platelet Count 330 Mean Platelet Volume 10.2 Neutrophils % 63.7 Lymphocytes % 21.7 Monocytes % 8.8 Eosinophils % 3.9 Basophils % 0.5 Nucleated Red Blood Cells % 0.0 Neutrophils # (Manual) 10.4 H Lymphocytes # 3.6 H Monocytes # 1.4 H Eosinophils # 0.6 H Basophils # 0.1 Nucleated Red Blood Cells # 0.0 Sodium Level 138 135 Potassium Level 4.4 4.4 Chloride Level 102 101 Carbon Dioxide Level 31 32 H Anion Gap 9 6 L Blood Urea Nitrogen 13 12 Creatinine 0.51 0.52 Glucose Level 243 H 218 Calcium Level 8.4 8.7 Total Bilirubin 0.3 0.5 Direct Bilirubin 0.00 0.00 Indirect Bilirubin 0.3 0.5 Aspartate Amino Transf (AST/SGOT) 20 20 Alanine Aminotransferase (ALT/SGPT) 25 24 Alkaline Phosphatase 128 H 130 H Total Protein 5.9 L 6.1 Albumin 2.3 L 2.3 L Globulin 3.60 H 3.80 H Albumin/Globulin Ratio 0.63 0.60 Bedside Glucose 210 225 H Medications Medications Current Medications Ondansetron HCl (Zofran Inj) 4 mg Q6H PRN IV NAUSEA AND/OR VOMITING; Start at 16:30 Acetaminophen (Tylenol Tab) 650 mg Q6H PRN PO PAIN LEVEL 1-3 OR FEVER Last administered on 01/17/17 06:40; Admin Dose 650 MG; Start 01/15/17 at 16:30 Magnesium Hydroxide (Milk Of Mag) 30 ml DAILY PRN PO CONSTIPATION Last administered on 01/24/17 09:15; Admin Dose 30 ML; Start 01/15/17 at 16:30 Aspirin (Halfprin) 81 mg DAILY PO Last administered on 01/28/17 09:42; Admin Dose 81 MG; Start 01/16/17 at 09:00 Losartan Potassium (Cozaar) 100 mg BID PO Last administered on 01/28/17 09:46; Admin Dose 100 MG; Start 01/15/17 at 21:00 Montelukast Sodium (Singulair) 10 mg QHS PO Last administered on 01/27/17 20:23 ; Admin Dose 10 MG; Start 01/15/17 at 21:00 IV Flush (NS 10 ml) 10 ml PRN PRN IV IV PROTOCOL; Start 01/15/17 at 18:30 Miscellaneous Information 1 ea NOTE XX ; Start 01/15/17 at 19:00 Glucose (Glutose) 15 gm Q15M PRN PO DECREASED GLUCOSE; Start 01/15/17 at 19:00 Glucose (Glutose) 22.5 gm Q15M PRN PO DECREASED GLUCOSE; Start 01/15/17 at 19: 00 Dextrose (D50w Syringe) 25 ml Q15M PRN IV DECREASED GLUCOSE Last administered on 01/21/17 20:37; Admin Dose 25 ML; Start 01/15/17 at 19:00 Dextrose (D50w Syringe) 50 ml Q15M PRN IV DECREASED GLUCOSE; Start 01/15/17 at 19:00 Glucagon (Glucagen) 1 mg Q15M PRN IM DECREASED GLUCOSE; Start 01/15/17 at 19:00 Glucose (Glutose) 15 gm Q15M PRN BUCCAL DECREASED GLUCOSE Last administered on 01/21/17 19:53; Admin Dose 15 GM; Start 01/15/17 at 19:00 Diagnostic Test (Pha) (Accu-Chek) 1 ea 02 XX Last administered on 01/28/17 01: 39; Admin Dose 1 EA; Start 01/16/17 at 02:00 Clonidine (Catapres) 0.1 mg Q6H PRN PO BLOOD PRESSURE SBP>160 Last administered on 01/16/17 23:42; Admin Dose 0.1 MG; Start 01/15/17 at 20:30 Miscellaneous Information (Pending Santyl Order For Wound Care) This patient jean baptiste... PRN PRN XX WOUND CARE; Start 01/15/17 at 22:00 Collagenase (Santyl) 1 applic DAILY TOP Last administered on 01/28/17 09:47; Admin Dose 1 APPLIC; Start 01/16/17 at 21:00 Hydralazine HCl (Apresoline) 10 mg Q6 PRN IV ELEVATED BLOOD PRESSURE Last administered on 01/17/17 03:05; Admin Dose 10 MG; Start 01/17/17 at 03:00 Acetaminophen (Tylenol Supp) 650 mg Q6H PRN [place] FEVER GREATER THAN 100.6 Last administered on 01/17/17 07:26; Admin Dose 650 MG; Start 01/17/17 at 07:00 Mupirocin (Bactroban) 1 applic BID TOP Last administered on 01/28/17 09:47; Admin Dose 1 APPLIC; Start 01/17/17 at 11:00 Ferrous Sulfate (Slow Fe) 142 mg DAILY PO Last administered on 01/28/17 09:42; Admin Dose 142 MG; Start 01/18/17 at 14:30 Calcium Carbonate (Tums) 500 mg BID PO Last administered on 01/28/17 09:42; Admin Dose 500 MG; Start 01/18/17 at 14:30 Nystatin (Nystatin Powder) 1 applic BID TOP Last administered on 01/28/17 09:47 ; Admin Dose 1 APPLIC; Start 01/18/17 at 21:00 Sodium Hypochlorite (Dakin'S (1/4 Strength)) 1 applic BID IRR Last administered on 01/25/17 20:11; Admin Dose 1 APPLIC; Start 01/18/17 at 21:00 Acetaminophen/ Hydrocodone Bitart ([place] (5/325)) 1 tab Q4H PRN PO PAIN LEVEL 4 -7 Last administered on 01/27/17 20:23; Admin Dose 1 TAB; Start 01/19/17 at 12: 00 Acetaminophen/ Hydrocodone Bitart ([place] (5/325)) 2 tab Q4H PRN PO PAIN LEVEL 7 -10; Start 01/19/17 at 12:00 Docusate Sodium (Colace) 100 mg BID PRN PO CONSTIPATION; Start 01/19/17 at 12: 00 Bisacodyl (Dulcolax Supp) 10 mg BID PRN [place] CONSTIPATION; Start 01/19/17 at 12: 00 Sodium Biphosphate/ Sodium Phosphate 133 ml 133 ml BID PRN [place] CONSTIPATION; Start 01/19/17 at 12:00 Meropenem/Sodium Chloride (Merrem 1 Gm/50 ml (Pmx)) 50 ml @ 200 mls/hr Q8 IVPB Last administered on 01/28/17 13:03; Admin Dose 200 MLS/HR; Start 01/19/17 at 15:00 Famotidine (Pepcid) 20 mg DAILY PO Last administered on 01/28/17 09:42; Admin Dose 20 MG; Start 01/21/17 at 09:00 Zolpidem Tartrate (Ambien) 10 mg HS PRN PO INSOMNIA Last administered on 22:16; Admin Dose 10 MG; Start 01/21/17 at 13:30 IV Flush (NS 10 ml) 10 ml PRN PRN IV IV PROTOCOL; Start 01/21/17 at 19:00 Insulin Human NPH (Humulin N) 10 unit BID@08,20 SC Last administered on 09:58; Admin Dose 10 UNIT; Start 01/22/17 at 08:00 Zinc Sulfate (Zinc Sulfate) 220 mg DAILY GTB Last administered on 01/28/17 09: 42; Admin Dose 220 MG; Start 01/23/17 at 15:30; Stop 02/05/17 at 09:01 Ascorbic Acid (Vitamin C) 500 mg BID GTB Last administered on 01/28/17 09:42; Admin Dose 500 MG; Start 01/23/17 at 21:00 Multivitamins (Multivitamin) 30 ml DAILY GTB Last administered on 01/28/17 09: 42; Admin Dose 30 ML; Start 01/23/17 at 17:00 Insulin Aspart (Novolog Insulin Pen) NOVOLOG *MODERATE* ALGORITHM Q4 SC Last administered on 01/28/17 12:56; Admin Dose 6 UNIT; Start 01/27/17 at 17:00 Hydromorphone HCl (Dilaudid) 2 mg Q4H PRN IV PAIN Last administered on 12:47; Admin Dose 2 MG; Start 01/27/17 at 21:00 Neomycin/ Polymyxin/ Bacitracin (Neosporin Topical Oint) 1 applic BID TOP ; Start 01/28/17 at 09:00 Hydrogen Peroxide 1 applic 1 applic BID TOP ; Start 01/28/17 at 09:00 Minocycline HCl/ Sodium Chloride (Minocin/NS) 100 ml @ 100 mls/hr Q12 IVPB ; Start 01/28/17 at 21:00 Apixaban (Eliquis) 5 mg BID PO Last administered on 01/28/17 14:26; Admin Dose 5 MG; Start 01/28/17 at 14:00 Tucker Jacome DO Jan 28, 2017 15:32
[2017-01-28 21:02] VITALS: BP 121/55; RESP 18
[2017-01-28] MEDS: MINOCYCLINE HCL 100 MG in SOD CHLORIDE 0.9% 100 ML IVPB SCH (21:27)
[2017-01-28] MEDS: MONTELUKAST 10 MG TAB PO SCH (21:28)
[2017-01-29] MEDS: INSULIN ASPART [NOVOLOG] 3 ML PEN SC SCH ×6 (01:00→20:30)
[2017-01-29] MEDS: ACCU-CHEK XX SCH (01:36)
[2017-01-29 03:16] VITALS: BP 119/50; RESP 18
[2017-01-29] MEDS: HYDROmorphONE 2 MG/ML SYG IV PRN ×2 (03:29→12:25)
[2017-01-29] MEDS: MEROPENEM 1 GM/50ML(PMX) 50 ML IVPB SCH ×3 (05:32→21:45)
[2017-01-29 06:42] LABS: BASOPHIL # 0.1 10^3/ul (0.0-0.1); BASOPHILS % 0.7 % (0.0-2.0); EOSINOPHILS # 0.5 10^3/ul (0.0-0.5); EOSINOPHILS % 3.1 % (0.0-7.0); HEMATOCRIT 27.2 % (37.0-47.0); HEMOGLOBIN 8.3 g/dl (12.0-16.0); LYMPHOCYTES # 4.1 10^3/ul (0.8-2.9); LYMPHOCYTES % 24.8 % (15.0-51.0); MEAN CORPUSCULAR HEMOGLOBIN 26.6 pg (29.0-33.0); MEAN CORPUSCULAR HGB CONC 30.5 g/dl (32.0-37.0); MEAN CORPUSCULAR VOLUME 87.2 fl (82.0-101.0); MEAN PLATELET VOLUME 10.3 fl (7.4-10.4); MONOCYTE # 1.3 10^3/ul (0.3-0.9); MONOCYTES % 8.1 % (0.0-11.0); NEUTROPHILS % 62.2 % (39.0-77.0); PLATELET COUNT 306 10^3/UL (140-415); RED BLOOD COUNT 3.12 10^6/ul (4.20-5.40); RED CELL DISTRIBUTION WIDTH 16.2 % (11.5-14.5); WHITE BLOOD COUNT 16.4 10^3/ul (4.8-10.8)
[2017-01-29 08:00] VITALS: BP 126/46; RESP 18
[2017-01-29] MEDS: NPH, HUMAN INSULIN ISOPHANE 3ML VIAL SC SCH ×2 (08:26→20:37)
[2017-01-29] MEDS: APIXABAN 5 MG TABLET PO SCH ×2 (09:46→20:32)
[2017-01-29] MEDS: ZINC SULFATE 220 MG CAP GTB SCH (09:46)
[2017-01-29] MEDS: ASCORBIC ACID 500 MG TAB GTB SCH ×2 (09:46→20:32)
[2017-01-29] MEDS: FERROUS SULFATE (SR) 142 MG TAB PO SCH (09:46)
[2017-01-29] MEDS: FAMOTIDINE 20 MG TAB PO SCH (09:46)
[2017-01-29] MEDS: NEOMYC/POLYMYX/BACIT 30 GM OINT TOP SCH ×2 (09:46→20:34)
[2017-01-29] MEDS: CALCIUM CARBONATE 500 MG CHEW TAB PO SCH ×2 (09:46→20:32)
[2017-01-29] MEDS: LOSARTAN 50 MG TAB PO SCH ×2 (09:47→20:33)
[2017-01-29] MEDS: MULTIVITAMINS 30 ML CUP GTB SCH (09:47)
[2017-01-29] MEDS: ASPIRIN (EC) 81 MG TAB PO SCH (09:47)
[2017-01-29] MEDS: COLLAGENASE 30 GM TUBE TOP SCH (09:52)
[2017-01-29] MEDS: MUPIROCIN 2% 22 GM OINT TOP SCH ×2 (09:52→20:35)
[2017-01-29] MEDS: SODIUM HYPOCHLORITE 0.125% 473 ML BTL IRR SCH ×2 (09:52→20:35)
[2017-01-29] MEDS: NYSTATIN 30 GM POWDER BTL TOP SCH ×2 (09:52→20:33)
[2017-01-29] MEDS: HYDROGEN PEROXIDE 118 ML TOP SCH ×2 (09:53→20:36)
[2017-01-29] MEDS: MINOCYCLINE HCL 100 MG in SOD CHLORIDE 0.9% 100 ML IVPB SCH (11:20)
--- NOTE | 2017-01-29 12:25 | CONS ---
Date/Time of Note Date/Time of Note DATE: 01/29/17 TIME: 12:22 Assessment/Plan Assessment/Plan Chief Complaint/Hosp Course 1) progressive sacral ulcer, surrounding cellulitis await surgical input and debridement, consider MRI depending upon surgical eval wound cx to be obtained continue with vanco/merrem check ESR, CRP in a.m. 01/17 - proteus and another GNR in wound cx continue with merrem/vanco esr and CRP are moderately elevated mrsa to nares to start bactroban await surgical input pt is more awake today and able to answer some questions in [place] 01/18 - pt persistence of fever and elevated wbc is either due to an undrained abscess or inadequate antibiotics await wound care eval and surgical debridement will order MRI scan if no wound care is delivered by tomorrow wound cx has proteus, GNR and enterococcus continue with vanco/merrem at present 01/19 - wound cx are all sensitive to current antibiotics of vanco/merrem MRI of pelvis/abd was done but results not available pt to get debridement later this am. 01/20 - s/p debridement, some bone was shaved, MRI did not show osteo await path report continue with vanco/merrem fevers and WBC improved post debridement pt will need good nutrition to heal this wound, consider g-tube if pt not eating well 01/22 - pt to get g-tube for better nutrition continue with vanco/merrem thru 02/01/17 consider doxy for 2 weeks after that path specimen did not identify bone to examine for osteo 01/25 - WBC improved today and ESR was down from 78 to 65 no new issues continue with vanco/merrrem at present thru 02/01 then po doxy for 2 weeks 01/26 - re-culture the site continue vanco/merrem 01/27 - vac pump is applied re-cx of site has GNR so far 01/28 - acinetobacter now present and addendum to path shows osteomyelitis continue with merrem change vanco to minocycline send out for sensi's for colistin, avycaz, minocycline and tigecycline 01/29 - 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 2) L heal ulcer with eschar no surrounding redness noted on picture 3) PVD 4) recent hx of LUE DVT 5) HTN 6) leukocytosis 01/26 - get u/a and urine cx, c.dif was sent off re-culture the sacral wound site doubt a pulmonary issue 01/27 - c.dif was neg WBC has improved without change in antibiotics urine cx is NGTD (prior one was only yeast) wound cx has GNR only so far continue present management 01/28 - wound cx is now growing highly resistant acinetobacter will adjust antibiotics and await send out sensi's to verify the best regimen for pt 01/29 - wound cx also grew VRE now on merrem/tigecycline Problems: Consultation Date/Type/Reason Admit Date/Time Jan 15, 2017 at 14:33 Initial Consult Date 01/16/17 Type of Consultation: ID Referring Provider: RIDGE MATTHEWS MD 24 HR Interval Summary Free Text/Dictation pt sometimes gets stool under the vac-pump but currently it is working ok no new issues no V last stool was soft Exam/Review of Systems Vital Signs Vitals Vital Signs Date Time Temp Pulse Resp B/P Pulse Ox O2 Delivery O2 Flow Rate FiO2 01/29/17 08:00 98.2 76 18 126/46 96 01/28/17 23:00 Nasal Cannula 2.0 Intake and Output 01/28/17 01/28/17 01/29/17 15:00 23:00 07:00 Intake Total 450 ml 960 ml 490 ml Output Total 800 ml 1020 ml Balance 450 ml 160 ml -530 ml Exam Constitutional: alert Respiratory: clear to auscultation Cardiovascular: regular rate and rhythm Gastrointestinal: non-tender, soft Results Result Diagram: 01/29/17 0440 01/28/17 1300 Results 24 hrs Laboratory Tests Test 01/28/17 12:53 01/28/17 13:00 01/28/17 16:50 01/28/17 21:08 Bedside Glucose 225 H 202 178 Sodium Level 135 Potassium Level 4.4 Chloride Level 101 Carbon Dioxide Level 32 H Anion Gap 6 L Blood Urea Nitrogen 12 Creatinine 0.52 Glucose Level 218 Calcium Level 8.7 Total Bilirubin 0.5 Direct Bilirubin 0.00 Indirect Bilirubin 0.5 Aspartate Amino Transf (AST/SGOT) 20 Alanine Aminotransferase (ALT/SGPT) 24 Alkaline Phosphatase 130 H Total Protein 6.1 Albumin 2.3 L Globulin 3.80 H Albumin/Globulin Ratio 0.60 Test 01/29/17 01:35 01/29/17 04:40 01/29/17 05:30 01/29/17 08:23 Bedside Glucose 147 132 187 White Blood Count 16.4 H Red Blood Count 3.12 L Hemoglobin 8.3 L Hematocrit 27.2 L Mean Corpuscular Volume 87.2 Mean Corpuscular Hemoglobin 26.6 L Mean Corpuscular Hemoglobin Concent 30.5 L Red Cell Distribution Width 16.2 H Platelet Count 306 Mean Platelet Volume 10.3 Neutrophils % 62.2 Lymphocytes % 24.8 Monocytes % 8.1 Eosinophils % 3.1 Basophils % 0.7 Nucleated Red Blood Cells % 0.0 Neutrophils # (Manual) 10.2 H Lymphocytes # 4.1 H Monocytes # 1.3 H Eosinophils # 0.5 Basophils # 0.1 Nucleated Red Blood Cells # 0.0 Erythrocyte Sedimentation Rate 90 H C-Reactive Protein 6.0 H Medications Medications Current Medications Ondansetron HCl (Zofran Inj) 4 mg Q6H PRN IV NAUSEA AND/OR VOMITING; Start at 16:30 Acetaminophen (Tylenol Tab) 650 mg Q6H PRN PO PAIN LEVEL 1-3 OR FEVER Last administered on 01/17/17 06:40; Admin Dose 650 MG; Start 01/15/17 at 16:30 Magnesium Hydroxide (Milk Of Mag) 30 ml DAILY PRN PO CONSTIPATION Last administered on 01/24/17 09:15; Admin Dose 30 ML; Start 01/15/17 at 16:30 Aspirin (Halfprin) 81 mg DAILY PO Last administered on 01/29/17 09:47; Admin Dose 81 MG; Start 01/16/17 at 09:00 Losartan Potassium (Cozaar) 100 mg BID PO Last administered on 01/29/17 09:47; Admin Dose 100 MG; Start 01/15/17 at 21:00 Montelukast Sodium (Singulair) 10 mg QHS PO Last administered on 01/28/17 21:28 ; Admin Dose 10 MG; Start 01/15/17 at 21:00 IV Flush (NS 10 ml) 10 ml PRN PRN IV IV PROTOCOL; Start 01/15/17 at 18:30 Miscellaneous Information 1 ea NOTE XX ; Start 01/15/17 at 19:00 Glucose (Glutose) 15 gm Q15M PRN PO DECREASED GLUCOSE; Start 01/15/17 at 19:00 Glucose (Glutose) 22.5 gm Q15M PRN PO DECREASED GLUCOSE; Start 01/15/17 at 19: 00 Dextrose (D50w Syringe) 25 ml Q15M PRN IV DECREASED GLUCOSE Last administered on 01/21/17 20:37; Admin Dose 25 ML; Start 01/15/17 at 19:00 Dextrose (D50w Syringe) 50 ml Q15M PRN IV DECREASED GLUCOSE; Start 01/15/17 at 19:00 Glucagon (Glucagen) 1 mg Q15M PRN IM DECREASED GLUCOSE; Start 01/15/17 at 19:00 Glucose (Glutose) 15 gm Q15M PRN BUCCAL DECREASED GLUCOSE Last administered on 01/21/17 19:53; Admin Dose 15 GM; Start 01/15/17 at 19:00 Diagnostic Test (Pha) (Accu-Chek) 1 ea 02 XX Last administered on 01/29/17 01: 36; Admin Dose 1 EA; Start 01/16/17 at 02:00 Clonidine (Catapres) 0.1 mg Q6H PRN PO BLOOD PRESSURE SBP>160 Last administered on 01/16/17 23:42; Admin Dose 0.1 MG; Start 01/15/17 at 20:30 Miscellaneous Information (Pending Santyl Order For Wound Care) This patient jean baptiste... PRN PRN XX WOUND CARE; Start 01/15/17 at 22:00 Collagenase (Santyl) 1 applic DAILY TOP Last administered on 01/29/17 09:52; Admin Dose 1 APPLIC; Start 01/16/17 at 21:00 Hydralazine HCl (Apresoline) 10 mg Q6 PRN IV ELEVATED BLOOD PRESSURE Last administered on 01/17/17 03:05; Admin Dose 10 MG; Start 01/17/17 at 03:00 Acetaminophen (Tylenol Supp) 650 mg Q6H PRN [place] FEVER GREATER THAN 100.6 Last administered on 01/17/17 07:26; Admin Dose 650 MG; Start 01/17/17 at 07:00 Mupirocin (Bactroban) 1 applic BID TOP Last administered on 01/29/17 09:52; Admin Dose 1 APPLIC; Start 01/17/17 at 11:00 Ferrous Sulfate (Slow Fe) 142 mg DAILY PO Last administered on 01/29/17 09:46; Admin Dose 142 MG; Start 01/18/17 at 14:30 Calcium Carbonate (Tums) 500 mg BID PO Last administered on 01/29/17 09:46; Admin Dose 500 MG; Start 01/18/17 at 14:30 Nystatin (Nystatin Powder) 1 applic BID TOP Last administered on 01/29/17 09:52 ; Admin Dose 1 APPLIC; Start 01/18/17 at 21:00 Sodium Hypochlorite (Dakin'S (1/4 Strength)) 1 applic BID IRR Last administered on 01/29/17 09:52; Admin Dose 1 APPLIC; Start 01/18/17 at 21:00 Acetaminophen/ Hydrocodone Bitart ([place] (5/325)) 1 tab Q4H PRN PO PAIN LEVEL 4 -7 Last administered on 01/27/17 20:23; Admin Dose 1 TAB; Start 01/19/17 at 12: 00 Acetaminophen/ Hydrocodone Bitart ([place] (5/325)) 2 tab Q4H PRN PO PAIN LEVEL 7 -10; Start 01/19/17 at 12:00 Docusate Sodium (Colace) 100 mg BID PRN PO CONSTIPATION; Start 01/19/17 at 12: 00 Bisacodyl (Dulcolax Supp) 10 mg BID PRN [place] CONSTIPATION; Start 01/19/17 at 12: 00 Sodium Biphosphate/ Sodium Phosphate 133 ml 133 ml BID PRN [place] CONSTIPATION; Start 01/19/17 at 12:00 Meropenem/Sodium Chloride (Merrem 1 Gm/50 ml (Pmx)) 50 ml @ 200 mls/hr Q8 IVPB Last administered on 01/29/17 05:32; Admin Dose 200 MLS/HR; Start 01/19/17 at 15:00 Famotidine (Pepcid) 20 mg DAILY PO Last administered on 01/29/17 09:46; Admin Dose 20 MG; Start 01/21/17 at 09:00 Zolpidem Tartrate (Ambien) 10 mg HS PRN PO INSOMNIA Last administered on 22:16; Admin Dose 10 MG; Start 01/21/17 at 13:30 IV Flush (NS 10 ml) 10 ml PRN PRN IV IV PROTOCOL; Start 01/21/17 at 19:00 Insulin Human NPH (Humulin N) 10 unit BID@08,20 SC Last administered on 08:26; Admin Dose 10 UNIT; Start 01/22/17 at 08:00 Zinc Sulfate (Zinc Sulfate) 220 mg DAILY GTB Last administered on 01/29/17 09: 46; Admin Dose 220 MG; Start 01/23/17 at 15:30; Stop 02/05/17 at 09:01 Ascorbic Acid (Vitamin C) 500 mg BID GTB Last administered on 01/29/17 09:46; Admin Dose 500 MG; Start 01/23/17 at 21:00 Multivitamins (Multivitamin) 30 ml DAILY GTB Last administered on 01/29/17 09: 47; Admin Dose 30 ML; Start 01/23/17 at 17:00 Insulin Aspart (Novolog Insulin Pen) NOVOLOG *MODERATE* ALGORITHM Q4 SC Last administered on 01/29/17 08:25; Admin Dose 4 UNIT; Start 01/27/17 at 17:00 Hydromorphone HCl (Dilaudid) 2 mg Q4H PRN IV PAIN Last administered on 03:29; Admin Dose 2 MG; Start 01/27/17 at 21:00 Neomycin/ Polymyxin/ Bacitracin (Neosporin Topical Oint) 1 applic BID TOP Last administered on 01/29/17 09:46; Admin Dose 1 APPLIC; Start 01/28/17 at 09:00 Hydrogen Peroxide 1 applic 1 applic BID TOP Last administered on 01/29/17 09:53 ; Admin Dose 1 APPLIC; Start 01/28/17 at 09:00 Minocycline HCl/ Sodium Chloride (Minocin/NS) 100 ml @ 100 mls/hr Q12 IVPB Last administered on 01/29/17 11:20; Admin Dose 100 MLS/HR; Start 01/28/17 at 21: 00 Apixaban (Eliquis) 5 mg BID PO Last administered on 01/29/17 09:46; Admin Dose 5 MG; Start 01/28/17 at 14:00 ANTHONY WOODARD MD Jan 29, 2017 12:25
[2017-01-29 14:00] VITALS: BP 128/64; RESP 18
[2017-01-29] MEDS ORDERED: TIGECYCLINE 100 MG in SOD CHLORIDE 0.9% 100 ML IVPB ONE (14:00)
--- NOTE | 2017-01-29 14:34 | PN ---
Date/Time of Note Date/Time of Note DATE: 01/29/17 TIME: 14:29 Assessment/Plan VTE Prophylaxis VTE Prophylaxis Intervention: other Lines/Catheters IV Catheter Type (from Nrsg): PICC Line Central line still needed: Yes Urinary Cath still in place: Yes Reason Cath still needed: skin wounds contaminated by urine Assessment/Plan Assessment/Plan sacral stage IV decub, growing proteus and ecoli and s.aureus. on merrem/vanco , being treated by ID. 02/19 debrided and eval for osteo. called ortho- they report that nothing for them to do regarding fx or osteo of sacrum. wbc improving. path report +osteo. ortho called and will not treat. - vre grew. now on tigecycline/merrem. poor appetite- may be due to pain meds. for the next 24 hours will cont and then try to extend time between doses and also decrease dose. gtube in place. mentation better with less pain med. will open eyes and anwer questions today. pt wants the methadone. thinks the other pain med is too strong. will change back methadone 20 bid prn. mrsa nares on bactroban nares left heal osteo- pod treating htn- been steady dmII since gtube feeding, adjusting the insulin. better since off ivf paroxysmal afib on last admission- occurred during sepsis and intubation. pt changed to elliquis h/o left dvt of UE. now on elliquis Exam/Review of Systems Vital Signs Vitals Vital Signs Date Time Temp Pulse Resp B/P Pulse Ox O2 Delivery O2 Flow Rate FiO2 01/29/17 08:00 98.2 76 18 126/46 96 01/28/17 23:00 Nasal Cannula 2.0 Intake and Output 01/28/17 01/28/17 01/29/17 15:00 23:00 07:00 Intake Total 450 ml 960 ml 490 ml Output Total 800 ml 1020 ml Balance 450 ml 160 ml -530 ml Results Result Diagram: 01/29/17 0440 01/28/17 1300 Results 24 hrs Laboratory Tests Test 01/28/17 16:50 01/28/17 21:08 01/29/17 01:35 01/29/17 04:40 Bedside Glucose 202 178 147 White Blood Count 16.4 H Red Blood Count 3.12 L Hemoglobin 8.3 L Hematocrit 27.2 L Mean Corpuscular Volume 87.2 Mean Corpuscular Hemoglobin 26.6 L Mean Corpuscular Hemoglobin Concent 30.5 L Red Cell Distribution Width 16.2 H Platelet Count 306 Mean Platelet Volume 10.3 Neutrophils % 62.2 Lymphocytes % 24.8 Monocytes % 8.1 Eosinophils % 3.1 Basophils % 0.7 Nucleated Red Blood Cells % 0.0 Neutrophils # (Manual) 10.2 H Lymphocytes # 4.1 H Monocytes # 1.3 H Eosinophils # 0.5 Basophils # 0.1 Nucleated Red Blood Cells # 0.0 Erythrocyte Sedimentation Rate 90 H C-Reactive Protein 6.0 H Test 01/29/17 05:30 01/29/17 08:23 01/29/17 12:20 Bedside Glucose 132 187 188 Medications Medications Current Medications Ondansetron HCl (Zofran Inj) 4 mg Q6H PRN IV NAUSEA AND/OR VOMITING; Start at 16:30 Acetaminophen (Tylenol Tab) 650 mg Q6H PRN PO PAIN LEVEL 1-3 OR FEVER Last administered on 01/17/17 06:40; Admin Dose 650 MG; Start 01/15/17 at 16:30 Magnesium Hydroxide (Milk Of Mag) 30 ml DAILY PRN PO CONSTIPATION Last administered on 01/24/17 09:15; Admin Dose 30 ML; Start 01/15/17 at 16:30 Aspirin (Halfprin) 81 mg DAILY PO Last administered on 01/29/17 09:47; Admin Dose 81 MG; Start 01/16/17 at 09:00 Losartan Potassium (Cozaar) 100 mg BID PO Last administered on 01/29/17 09:47; Admin Dose 100 MG; Start 01/15/17 at 21:00 Montelukast Sodium (Singulair) 10 mg QHS PO Last administered on 01/28/17 21:28 ; Admin Dose 10 MG; Start 01/15/17 at 21:00 IV Flush (NS 10 ml) 10 ml PRN PRN IV IV PROTOCOL; Start 01/15/17 at 18:30 Miscellaneous Information 1 ea NOTE XX ; Start 01/15/17 at 19:00 Glucose (Glutose) 15 gm Q15M PRN PO DECREASED GLUCOSE; Start 01/15/17 at 19:00 Glucose (Glutose) 22.5 gm Q15M PRN PO DECREASED GLUCOSE; Start 01/15/17 at 19: 00 Dextrose (D50w Syringe) 25 ml Q15M PRN IV DECREASED GLUCOSE Last administered on 01/21/17 20:37; Admin Dose 25 ML; Start 01/15/17 at 19:00 Dextrose (D50w Syringe) 50 ml Q15M PRN IV DECREASED GLUCOSE; Start 01/15/17 at 19:00 Glucagon (Glucagen) 1 mg Q15M PRN IM DECREASED GLUCOSE; Start 01/15/17 at 19:00 Glucose (Glutose) 15 gm Q15M PRN BUCCAL DECREASED GLUCOSE Last administered on 01/21/17 19:53; Admin Dose 15 GM; Start 01/15/17 at 19:00 Diagnostic Test (Pha) (Accu-Chek) 1 ea 02 XX Last administered on 01/29/17 01: 36; Admin Dose 1 EA; Start 01/16/17 at 02:00 Clonidine (Catapres) 0.1 mg Q6H PRN PO BLOOD PRESSURE SBP>160 Last administered on 01/16/17 23:42; Admin Dose 0.1 MG; Start 01/15/17 at 20:30 Miscellaneous Information (Pending Santyl Order For Wound Care) This patient jean baptiste... PRN PRN XX WOUND CARE; Start 01/15/17 at 22:00 Collagenase (Santyl) 1 applic DAILY TOP Last administered on 01/29/17 09:52; Admin Dose 1 APPLIC; Start 01/16/17 at 21:00 Hydralazine HCl (Apresoline) 10 mg Q6 PRN IV ELEVATED BLOOD PRESSURE Last administered on 01/17/17 03:05; Admin Dose 10 MG; Start 01/17/17 at 03:00 Acetaminophen (Tylenol Supp) 650 mg Q6H PRN [place] FEVER GREATER THAN 100.6 Last administered on 01/17/17 07:26; Admin Dose 650 MG; Start 01/17/17 at 07:00 Mupirocin (Bactroban) 1 applic BID TOP Last administered on 01/29/17 09:52; Admin Dose 1 APPLIC; Start 01/17/17 at 11:00 Ferrous Sulfate (Slow Fe) 142 mg DAILY PO Last administered on 01/29/17 09:46; Admin Dose 142 MG; Start 01/18/17 at 14:30 Calcium Carbonate (Tums) 500 mg BID PO Last administered on 01/29/17 09:46; Admin Dose 500 MG; Start 01/18/17 at 14:30 Nystatin (Nystatin Powder) 1 applic BID TOP Last administered on 01/29/17 09:52 ; Admin Dose 1 APPLIC; Start 01/18/17 at 21:00 Sodium Hypochlorite (Dakin'S (1/4 Strength)) 1 applic BID IRR Last administered on 01/29/17 09:52; Admin Dose 1 APPLIC; Start 01/18/17 at 21:00 Acetaminophen/ Hydrocodone Bitart ([place] (5/325)) 1 tab Q4H PRN PO PAIN LEVEL 4 -7 Last administered on 01/27/17 20:23; Admin Dose 1 TAB; Start 01/19/17 at 12: 00 Acetaminophen/ Hydrocodone Bitart ([place] (5/325)) 2 tab Q4H PRN PO PAIN LEVEL 7 -10; Start 01/19/17 at 12:00 Docusate Sodium (Colace) 100 mg BID PRN PO CONSTIPATION; Start 01/19/17 at 12: 00 Bisacodyl (Dulcolax Supp) 10 mg BID PRN [place] CONSTIPATION; Start 01/19/17 at 12: 00 Sodium Biphosphate/ Sodium Phosphate 133 ml 133 ml BID PRN [place] CONSTIPATION; Start 01/19/17 at 12:00 Meropenem/Sodium Chloride (Merrem 1 Gm/50 ml (Pmx)) 50 ml @ 100 mls/hr Q8 IVPB Last administered on 01/29/17 14:10; Admin Dose 200 MLS/HR; Start 01/19/17 at 15:00 Famotidine (Pepcid) 20 mg DAILY PO Last administered on 01/29/17 09:46; Admin Dose 20 MG; Start 01/21/17 at 09:00 Zolpidem Tartrate (Ambien) 10 mg HS PRN PO INSOMNIA Last administered on 22:16; Admin Dose 10 MG; Start 01/21/17 at 13:30 IV Flush (NS 10 ml) 10 ml PRN PRN IV IV PROTOCOL; Start 01/21/17 at 19:00 Insulin Human NPH (Humulin N) 10 unit BID@08,20 SC Last administered on 08:26; Admin Dose 10 UNIT; Start 01/22/17 at 08:00 Zinc Sulfate (Zinc Sulfate) 220 mg DAILY GTB Last administered on 01/29/17 09: 46; Admin Dose 220 MG; Start 01/23/17 at 15:30; Stop 02/05/17 at 09:01 Ascorbic Acid (Vitamin C) 500 mg BID GTB Last administered on 01/29/17 09:46; Admin Dose 500 MG; Start 01/23/17 at 21:00 Multivitamins (Multivitamin) 30 ml DAILY GTB Last administered on 01/29/17 09: 47; Admin Dose 30 ML; Start 01/23/17 at 17:00 Insulin Aspart (Novolog Insulin Pen) NOVOLOG *MODERATE* ALGORITHM Q4 SC Last administered on 01/29/17 12:26; Admin Dose 4 UNIT; Start 01/27/17 at 17:00 Hydromorphone HCl (Dilaudid) 2 mg Q4H PRN IV PAIN Last administered on 12:25; Admin Dose 2 MG; Start 01/27/17 at 21:00 Neomycin/ Polymyxin/ Bacitracin (Neosporin Topical Oint) 1 applic BID TOP Last administered on 01/29/17 09:46; Admin Dose 1 APPLIC; Start 01/28/17 at 09:00 Hydrogen Peroxide (Hydrogen Peroxide) 1 applic BID TOP Last administered on 01/29 09:53; Admin Dose 1 APPLIC; Start 01/28/17 at 09:00 Apixaban 5 mg 5 mg BID PO Last administered on 01/29/17 09:46; Admin Dose 5 MG ; Start 01/28/17 at 14:00 Tigecycline 100 mg/Sodium Chloride 100 ml @ 100 mls/hr ONCE ONCE IVPB ; Start 01/29/17 at 14:00; Stop 01/29/17 at 14:59 Tigecycline/ Sodium Chloride (Tygacil/NS) 100 ml @ 200 mls/hr Q12 IVPB ; Start 01/29/17 at 21:00 RIDGE MATTHEWS MD Jan 29, 2017 14:34
--- NOTE | 2017-01-29 14:51 | CONS ---
Date/Time of Note Date/Time of Note DATE: 01/29/17 TIME: 14:50 Assessment/Plan Assessment/Plan Additional Assessment/Plan Sacral decubiti DVT of left upper extremity History of paroxysmal atrial fibrillation Preserved ejection fraction Peripheral arterial disease -Hemoglobin slightly on the lower side today, would recommend to continue to follow trend even patient on Eliquis. Blood pressure trend overall remains stable. No new cardiac orders at the current time. Consultation Date/Type/Reason Admit Date/Time Jan 15, 2017 at 14:33 Initial Consult Date 01/19/17 Type of Consultation: cv Referring Provider: RIDGE MATTHEWS MD 24 HR Interval Summary Free Text/Dictation Patient seen and examined, as per family overall feeling better. Exam/Review of Systems Vital Signs Vitals Vital Signs Date Time Temp Pulse Resp B/P Pulse Ox O2 Delivery O2 Flow Rate FiO2 01/29/17 08:00 98.2 76 18 126/46 96 01/28/17 23:00 Nasal Cannula 2.0 Intake and Output 01/28/17 01/28/17 01/29/17 15:00 23:00 07:00 Intake Total 450 ml 960 ml 490 ml Output Total 800 ml 1020 ml Balance 450 ml 160 ml -530 ml Exam Following commands, no apparent distress Constitutional: alert Head: normocephalic Respiratory: other (Course breath sounds bilaterally, no wheezing) Cardiovascular: other (S1-S2 heard), regular rate and rhythm Gastrointestinal: bowel sounds, non-tender, soft Extremities: edema Results Result Diagram: 01/29/17 0440 01/28/17 1300 Results 24 hrs Laboratory Tests Test 01/28/17 16:50 01/28/17 21:08 01/29/17 01:35 01/29/17 04:40 Bedside Glucose 202 178 147 White Blood Count 16.4 H Red Blood Count 3.12 L Hemoglobin 8.3 L Hematocrit 27.2 L Mean Corpuscular Volume 87.2 Mean Corpuscular Hemoglobin 26.6 L Mean Corpuscular Hemoglobin Concent 30.5 L Red Cell Distribution Width 16.2 H Platelet Count 306 Mean Platelet Volume 10.3 Neutrophils % 62.2 Lymphocytes % 24.8 Monocytes % 8.1 Eosinophils % 3.1 Basophils % 0.7 Nucleated Red Blood Cells % 0.0 Neutrophils # (Manual) 10.2 H Lymphocytes # 4.1 H Monocytes # 1.3 H Eosinophils # 0.5 Basophils # 0.1 Nucleated Red Blood Cells # 0.0 Erythrocyte Sedimentation Rate 90 H C-Reactive Protein 6.0 H Test 01/29/17 05:30 01/29/17 08:23 01/29/17 12:20 Bedside Glucose 132 187 188 Medications Medications Current Medications Ondansetron HCl (Zofran Inj) 4 mg Q6H PRN IV NAUSEA AND/OR VOMITING; Start at 16:30 Acetaminophen (Tylenol Tab) 650 mg Q6H PRN PO PAIN LEVEL 1-3 OR FEVER Last administered on 01/17/17 06:40; Admin Dose 650 MG; Start 01/15/17 at 16:30 Magnesium Hydroxide (Milk Of Mag) 30 ml DAILY PRN PO CONSTIPATION Last administered on 01/24/17 09:15; Admin Dose 30 ML; Start 01/15/17 at 16:30 Aspirin (Halfprin) 81 mg DAILY PO Last administered on 01/29/17 09:47; Admin Dose 81 MG; Start 01/16/17 at 09:00 Losartan Potassium (Cozaar) 100 mg BID PO Last administered on 01/29/17 09:47; Admin Dose 100 MG; Start 01/15/17 at 21:00 Montelukast Sodium (Singulair) 10 mg QHS PO Last administered on 01/28/17 21:28 ; Admin Dose 10 MG; Start 01/15/17 at 21:00 IV Flush (NS 10 ml) 10 ml PRN PRN IV IV PROTOCOL; Start 01/15/17 at 18:30 Miscellaneous Information 1 ea NOTE XX ; Start 01/15/17 at 19:00 Glucose (Glutose) 15 gm Q15M PRN PO DECREASED GLUCOSE; Start 01/15/17 at 19:00 Glucose (Glutose) 22.5 gm Q15M PRN PO DECREASED GLUCOSE; Start 01/15/17 at 19: 00 Dextrose (D50w Syringe) 25 ml Q15M PRN IV DECREASED GLUCOSE Last administered on 01/21/17 20:37; Admin Dose 25 ML; Start 01/15/17 at 19:00 Dextrose (D50w Syringe) 50 ml Q15M PRN IV DECREASED GLUCOSE; Start 01/15/17 at 19:00 Glucagon (Glucagen) 1 mg Q15M PRN IM DECREASED GLUCOSE; Start 01/15/17 at 19:00 Glucose (Glutose) 15 gm Q15M PRN BUCCAL DECREASED GLUCOSE Last administered on 01/21/17 19:53; Admin Dose 15 GM; Start 01/15/17 at 19:00 Diagnostic Test (Pha) (Accu-Chek) 1 ea 02 XX Last administered on 01/29/17 01: 36; Admin Dose 1 EA; Start 01/16/17 at 02:00 Clonidine (Catapres) 0.1 mg Q6H PRN PO BLOOD PRESSURE SBP>160 Last administered on 01/16/17 23:42; Admin Dose 0.1 MG; Start 01/15/17 at 20:30 Miscellaneous Information (Pending Santyl Order For Wound Care) This patient jean baptiste... PRN PRN XX WOUND CARE; Start 01/15/17 at 22:00 Collagenase (Santyl) 1 applic DAILY TOP Last administered on 01/29/17 09:52; Admin Dose 1 APPLIC; Start 01/16/17 at 21:00 Hydralazine HCl (Apresoline) 10 mg Q6 PRN IV ELEVATED BLOOD PRESSURE Last administered on 01/17/17 03:05; Admin Dose 10 MG; Start 01/17/17 at 03:00 Acetaminophen (Tylenol Supp) 650 mg Q6H PRN [place] FEVER GREATER THAN 100.6 Last administered on 01/17/17 07:26; Admin Dose 650 MG; Start 01/17/17 at 07:00 Mupirocin (Bactroban) 1 applic BID TOP Last administered on 01/29/17 09:52; Admin Dose 1 APPLIC; Start 01/17/17 at 11:00 Ferrous Sulfate (Slow Fe) 142 mg DAILY PO Last administered on 01/29/17 09:46; Admin Dose 142 MG; Start 01/18/17 at 14:30 Calcium Carbonate (Tums) 500 mg BID PO Last administered on 01/29/17 09:46; Admin Dose 500 MG; Start 01/18/17 at 14:30 Nystatin (Nystatin Powder) 1 applic BID TOP Last administered on 01/29/17 09:52 ; Admin Dose 1 APPLIC; Start 01/18/17 at 21:00 Sodium Hypochlorite (Dakin'S (1/4 Strength)) 1 applic BID IRR Last administered on 01/29/17 09:52; Admin Dose 1 APPLIC; Start 01/18/17 at 21:00 Acetaminophen/ Hydrocodone Bitart ([place] (5/325)) 1 tab Q4H PRN PO PAIN LEVEL 4 -7 Last administered on 01/27/17 20:23; Admin Dose 1 TAB; Start 01/19/17 at 12: 00 Acetaminophen/ Hydrocodone Bitart ([place] (5/325)) 2 tab Q4H PRN PO PAIN LEVEL 7 -10; Start 01/19/17 at 12:00 Docusate Sodium (Colace) 100 mg BID PRN PO CONSTIPATION; Start 01/19/17 at 12: 00 Bisacodyl (Dulcolax Supp) 10 mg BID PRN [place] CONSTIPATION; Start 01/19/17 at 12: 00 Sodium Biphosphate/ Sodium Phosphate 133 ml 133 ml BID PRN [place] CONSTIPATION; Start 01/19/17 at 12:00 Meropenem/Sodium Chloride (Merrem 1 Gm/50 ml (Pmx)) 50 ml @ 100 mls/hr Q8 IVPB Last administered on 01/29/17 14:10; Admin Dose 200 MLS/HR; Start 01/19/17 at 15:00 Famotidine (Pepcid) 20 mg DAILY PO Last administered on 01/29/17 09:46; Admin Dose 20 MG; Start 01/21/17 at 09:00 Zolpidem Tartrate (Ambien) 10 mg HS PRN PO INSOMNIA Last administered on 22:16; Admin Dose 10 MG; Start 01/21/17 at 13:30 IV Flush (NS 10 ml) 10 ml PRN PRN IV IV PROTOCOL; Start 01/21/17 at 19:00 Insulin Human NPH (Humulin N) 10 unit BID@08,20 SC Last administered on 08:26; Admin Dose 10 UNIT; Start 01/22/17 at 08:00 Zinc Sulfate (Zinc Sulfate) 220 mg DAILY GTB Last administered on 01/29/17 09: 46; Admin Dose 220 MG; Start 01/23/17 at 15:30; Stop 02/05/17 at 09:01 Ascorbic Acid (Vitamin C) 500 mg BID GTB Last administered on 01/29/17 09:46; Admin Dose 500 MG; Start 01/23/17 at 21:00 Multivitamins (Multivitamin) 30 ml DAILY GTB Last administered on 01/29/17 09: 47; Admin Dose 30 ML; Start 01/23/17 at 17:00 Insulin Aspart (Novolog Insulin Pen) NOVOLOG *MODERATE* ALGORITHM Q4 SC Last administered on 01/29/17 12:26; Admin Dose 4 UNIT; Start 01/27/17 at 17:00 Neomycin/ Polymyxin/ Bacitracin (Neosporin Topical Oint) 1 applic BID TOP Last administered on 01/29/17 09:46; Admin Dose 1 APPLIC; Start 01/28/17 at 09:00 Hydrogen Peroxide (Hydrogen Peroxide) 1 applic BID TOP Last administered on 01/29 09:53; Admin Dose 1 APPLIC; Start 01/28/17 at 09:00 Apixaban 5 mg 5 mg BID PO Last administered on 01/29/17 09:46; Admin Dose 5 MG ; Start 01/28/17 at 14:00 Tigecycline 100 mg/Sodium Chloride 100 ml @ 100 mls/hr ONCE ONCE IVPB ; Start 01/29/17 at 14:00; Stop 01/29/17 at 14:59 Tigecycline/ Sodium Chloride (Tygacil/NS) 100 ml @ 200 mls/hr Q12 IVPB ; Start 01/29/17 at 21:00 Methadone HCl (Methadone) 20 mg BID PRN PO pain; Start 01/29/17 at 14:30; Status Tucker Smith DO Jan 29, 2017 14:51
[2017-01-29] MEDS: METHADONE 10 MG TAB PO PRN (15:55)
[2017-01-29 19:50] VITALS: BP 112/42; RESP 18
[2017-01-29] MEDS: TIGECYCLINE 50 MG in SOD CHLORIDE 0.9% 100 ML IVPB SCH (20:31)
[2017-01-29] MEDS: MONTELUKAST 10 MG TAB PO SCH (20:32)
[2017-01-29] MEDS: ZOLPIDEM 5 MG TAB PO PRN (23:25)
[2017-01-30] MEDS: INSULIN ASPART [NOVOLOG] 3 ML PEN SC SCH ×6 (00:45→20:58)
[2017-01-30] MEDS: ACCU-CHEK XX SCH (01:16)
[2017-01-30 02:00] VITALS: BP 149/59; PULSE 85; RESP 18
[2017-01-30 05:22] LABS: BASOPHIL # 0.1 10^3/ul (0.0-0.1); BASOPHILS % 0.6 % (0.0-2.0); EOSINOPHILS # 0.5 10^3/ul (0.0-0.5); EOSINOPHILS % 2.6 % (0.0-7.0); HEMATOCRIT 27.8 % (37.0-47.0); LYMPHOCYTES % 20.3 % (15.0-51.0); MEAN CORPUSCULAR HEMOGLOBIN 28.1 pg (29.0-33.0); MEAN CORPUSCULAR HGB CONC 32.4 g/dl (32.0-37.0); MEAN CORPUSCULAR VOLUME 86.9 fl (82.0-101.0); MEAN PLATELET VOLUME 9.8 fl (7.4-10.4); MONOCYTE # 1.5 10^3/ul (0.3-0.9); MONOCYTES % 7.6 % (0.0-11.0); NEUTROPHILS % 67.9 % (39.0-77.0); PLATELET COUNT 325 10^3/UL (140-415); RED CELL DISTRIBUTION WIDTH 15.9 % (11.5-14.5); WHITE BLOOD COUNT 19.5 10^3/ul (4.8-10.8)
[2017-01-30] MEDS: MEROPENEM 1 GM/50ML(PMX) 50 ML IVPB SCH ×3 (05:36→21:57)
[2017-01-30 08:00] VITALS: BP 148/61; RESP 18
[2017-01-30] MEDS: NPH, HUMAN INSULIN ISOPHANE 3ML VIAL SC SCH ×2 (08:36→20:56)
[2017-01-30] MEDS: ASPIRIN (EC) 81 MG TAB PO SCH (08:37)
[2017-01-30] MEDS: FERROUS SULFATE (SR) 142 MG TAB PO SCH (08:37)
[2017-01-30] MEDS: FAMOTIDINE 20 MG TAB PO SCH (08:37)
[2017-01-30] MEDS: ASCORBIC ACID 500 MG TAB GTB SCH ×2 (08:37→20:51)
[2017-01-30] MEDS: APIXABAN 5 MG TABLET PO SCH ×2 (08:38→20:51)
[2017-01-30] MEDS: CALCIUM CARBONATE 500 MG CHEW TAB PO SCH ×2 (08:38→20:51)
[2017-01-30] MEDS: LOSARTAN 50 MG TAB PO SCH ×2 (08:38→20:52)
[2017-01-30] MEDS: ZINC SULFATE 220 MG CAP GTB SCH (08:38)
[2017-01-30] MEDS: MULTIVITAMINS 30 ML CUP GTB SCH (08:38)
[2017-01-30] MEDS: METHADONE 10 MG TAB PO PRN (08:43)
[2017-01-30] MEDS: HYDROGEN PEROXIDE 118 ML TOP SCH ×2 (08:55→21:01)
[2017-01-30] MEDS: NEOMYC/POLYMYX/BACIT 30 GM OINT TOP SCH ×2 (08:56→21:00)
[2017-01-30] MEDS: MUPIROCIN 2% 22 GM OINT TOP SCH ×2 (08:56→21:01)
[2017-01-30] MEDS: NYSTATIN 30 GM POWDER BTL TOP SCH ×2 (08:56→21:00)
[2017-01-30] MEDS: COLLAGENASE 30 GM TUBE TOP SCH (09:00)
--- NOTE | 2017-01-30 10:45 | PN ---
Date/Time of Note Date/Time of Note DATE: 01/30/17 TIME: 10:44 Assessment/Plan VTE Prophylaxis VTE Prophylaxis Intervention: SCD's Lines/Catheters IV Catheter Type (from Nrsg): PICC Line Central line still needed: No Urinary Cath still in place: Yes Reason Cath still needed: urinary retention Assessment/Plan Assessment/Plan Sacral decubiti DVT of left upper extremity History of paroxysmal atrial fibrillation Preserved ejection fraction Peripheral arterial disease -Hemoglobin slightly on the lower side ,would recommend to continue to follow trend even patient on Eliquis. Blood pressure trend overall remains stable. No new cardiac orders at the current time. Subjective 24 Hr Interval Summary Free Text/Dictation the patient wtih no cahnge Exam/Review of Systems Vital Signs Vitals Vital Signs Date Time Temp Pulse Resp B/P Pulse Ox O2 Delivery O2 Flow Rate FiO2 01/30/17 08:00 98.3 92 18 148/61 96 01/30/17 02:00 Nasal Cannula 2.0 Intake and Output 01/29/17 01/29/17 01/30/17 15:00 23:00 07:00 Intake Total 150 ml 1170 ml 460 ml Output Total 750 ml 925 ml Balance 150 ml 420 ml -465 ml Results Result Diagram: 01/30/17 0453 01/28/17 1300 Results 24 hrs Laboratory Tests Test 01/29/17 12:20 01/29/17 20:29 01/30/17 00:40 01/30/17 04:40 Bedside Glucose 188 157 177 161 Test 01/30/17 04:53 01/30/17 08:33 White Blood Count 19.5 H Red Blood Count 3.20 L Hemoglobin 9.0 L Hematocrit 27.8 L Mean Corpuscular Volume 86.9 Mean Corpuscular Hemoglobin 28.1 L Mean Corpuscular Hemoglobin Concent 32.4 Red Cell Distribution Width 15.9 H Platelet Count 325 Mean Platelet Volume 9.8 Neutrophils % 67.9 Lymphocytes % 20.3 Monocytes % 7.6 Eosinophils % 2.6 Basophils % 0.6 Nucleated Red Blood Cells % 0.0 Neutrophils # (Manual) 13.2 H Lymphocytes # 4.0 H Monocytes # 1.5 H Eosinophils # 0.5 Basophils # 0.1 Nucleated Red Blood Cells # 0.0 Erythrocyte Sedimentation Rate 83 H Bedside Glucose 182 Medications Medications Current Medications Ondansetron HCl (Zofran Inj) 4 mg Q6H PRN IV NAUSEA AND/OR VOMITING; Start at 16:30 Acetaminophen (Tylenol Tab) 650 mg Q6H PRN PO PAIN LEVEL 1-3 OR FEVER Last administered on 01/17/17 06:40; Admin Dose 650 MG; Start 01/15/17 at 16:30 Magnesium Hydroxide (Milk Of Mag) 30 ml DAILY PRN PO CONSTIPATION Last administered on 01/24/17 09:15; Admin Dose 30 ML; Start 01/15/17 at 16:30 Aspirin (Halfprin) 81 mg DAILY PO Last administered on 01/30/17 08:37; Admin Dose 81 MG; Start 01/16/17 at 09:00 Losartan Potassium (Cozaar) 100 mg BID PO Last administered on 01/30/17 08:38; Admin Dose 100 MG; Start 01/15/17 at 21:00 Montelukast Sodium (Singulair) 10 mg QHS PO Last administered on 01/29/17 20:32 ; Admin Dose 10 MG; Start 01/15/17 at 21:00 IV Flush (NS 10 ml) 10 ml PRN PRN IV IV PROTOCOL; Start 01/15/17 at 18:30 Miscellaneous Information 1 ea NOTE XX ; Start 01/15/17 at 19:00 Glucose (Glutose) 15 gm Q15M PRN PO DECREASED GLUCOSE; Start 01/15/17 at 19:00 Glucose (Glutose) 22.5 gm Q15M PRN PO DECREASED GLUCOSE; Start 01/15/17 at 19: 00 Dextrose (D50w Syringe) 25 ml Q15M PRN IV DECREASED GLUCOSE Last administered on 01/21/17 20:37; Admin Dose 25 ML; Start 01/15/17 at 19:00 Dextrose (D50w Syringe) 50 ml Q15M PRN IV DECREASED GLUCOSE; Start 01/15/17 at 19:00 Glucagon (Glucagen) 1 mg Q15M PRN IM DECREASED GLUCOSE; Start 01/15/17 at 19:00 Glucose (Glutose) 15 gm Q15M PRN BUCCAL DECREASED GLUCOSE Last administered on 01/21/17 19:53; Admin Dose 15 GM; Start 01/15/17 at 19:00 Diagnostic Test (Pha) (Accu-Chek) 1 ea 02 XX Last administered on 01/29/17 01: 36; Admin Dose 1 EA; Start 01/16/17 at 02:00 Clonidine (Catapres) 0.1 mg Q6H PRN PO BLOOD PRESSURE SBP>160 Last administered on 01/16/17 23:42; Admin Dose 0.1 MG; Start 01/15/17 at 20:30 Miscellaneous Information (Pending Santyl Order For Wound Care) This patient jean baptiste... PRN PRN XX WOUND CARE; Start 01/15/17 at 22:00 Collagenase (Santyl) 1 applic DAILY TOP Last administered on 01/29/17 09:52; Admin Dose 1 APPLIC; Start 01/16/17 at 21:00 Hydralazine HCl (Apresoline) 10 mg Q6 PRN IV ELEVATED BLOOD PRESSURE Last administered on 01/17/17 03:05; Admin Dose 10 MG; Start 01/17/17 at 03:00 Acetaminophen (Tylenol Supp) 650 mg Q6H PRN [place] FEVER GREATER THAN 100.6 Last administered on 01/17/17 07:26; Admin Dose 650 MG; Start 01/17/17 at 07:00 Mupirocin (Bactroban) 1 applic BID TOP Last administered on 01/30/17 08:56; Admin Dose 1 APPLIC; Start 01/17/17 at 11:00 Ferrous Sulfate (Slow Fe) 142 mg DAILY PO Last administered on 01/30/17 08:37; Admin Dose 142 MG; Start 01/18/17 at 14:30 Calcium Carbonate (Tums) 500 mg BID PO Last administered on 01/30/17 08:38; Admin Dose 500 MG; Start 01/18/17 at 14:30 Nystatin (Nystatin Powder) 1 applic BID TOP Last administered on 01/30/17 08:56 ; Admin Dose 1 APPLIC; Start 01/18/17 at 21:00 Sodium Hypochlorite (Dakin'S (1/4 Strength)) 1 applic BID IRR Last administered on 01/29/17 09:52; Admin Dose 1 APPLIC; Start 01/18/17 at 21:00 Acetaminophen/ Hydrocodone Bitart ([place] (5/325)) 1 tab Q4H PRN PO PAIN LEVEL 4 -7 Last administered on 01/27/17 20:23; Admin Dose 1 TAB; Start 01/19/17 at 12: 00 Acetaminophen/ Hydrocodone Bitart ([place] (5/325)) 2 tab Q4H PRN PO PAIN LEVEL 7 -10; Start 01/19/17 at 12:00 Docusate Sodium (Colace) 100 mg BID PRN PO CONSTIPATION; Start 01/19/17 at 12: 00 Bisacodyl (Dulcolax Supp) 10 mg BID PRN [place] CONSTIPATION; Start 01/19/17 at 12: 00 Sodium Biphosphate/ Sodium Phosphate 133 ml 133 ml BID PRN [place] CONSTIPATION; Start 01/19/17 at 12:00 Meropenem/Sodium Chloride (Merrem 1 Gm/50 ml (Pmx)) 50 ml @ 100 mls/hr Q8 IVPB Last administered on 01/30/17 05:36; Admin Dose 100 MLS/HR; Start 01/19/17 at 15:00 Famotidine (Pepcid) 20 mg DAILY PO Last administered on 01/30/17 08:37; Admin Dose 20 MG; Start 01/21/17 at 09:00 Zolpidem Tartrate (Ambien) 10 mg HS PRN PO INSOMNIA Last administered on 23:25; Admin Dose 10 MG; Start 01/21/17 at 13:30 IV Flush (NS 10 ml) 10 ml PRN PRN IV IV PROTOCOL; Start 01/21/17 at 19:00 Insulin Human NPH (Humulin N) 10 unit BID@08,20 SC Last administered on 08:36; Admin Dose 10 UNIT; Start 01/22/17 at 08:00 Zinc Sulfate (Zinc Sulfate) 220 mg DAILY GTB Last administered on 01/30/17 08: 38; Admin Dose 220 MG; Start 01/23/17 at 15:30; Stop 02/05/17 at 09:01 Ascorbic Acid (Vitamin C) 500 mg BID GTB Last administered on 01/30/17 08:37; Admin Dose 500 MG; Start 01/23/17 at 21:00 Multivitamins (Multivitamin) 30 ml DAILY GTB Last administered on 01/30/17 08: 38; Admin Dose 30 ML; Start 01/23/17 at 17:00 Insulin Aspart (Novolog Insulin Pen) NOVOLOG *MODERATE* ALGORITHM Q4 SC Last administered on 01/30/17 08:37; Admin Dose 4 UNIT; Start 01/27/17 at 17:00 Neomycin/ Polymyxin/ Bacitracin (Neosporin Topical Oint) 1 applic BID TOP Last administered on 01/30/17 08:56; Admin Dose 1 APPLIC; Start 01/28/17 at 09:00 Hydrogen Peroxide (Hydrogen Peroxide) 1 applic BID TOP Last administered on 01/30 08:55; Admin Dose 1 APPLIC; Start 01/28/17 at 09:00 Apixaban 5 mg 5 mg BID PO Last administered on 01/30/17 08:38; Admin Dose 5 MG ; Start 01/28/17 at 14:00 Tigecycline/ Sodium Chloride (Tygacil/NS) 100 ml @ 200 mls/hr Q12 IVPB Last administered on 01/29/17 20:31; Admin Dose 200 MLS/HR; Start 01/29/17 at 21:00 Methadone HCl (Methadone) 20 mg BID PRN PO pain Last administered on 01/30/17 08:43; Admin Dose 20 MG; Start 01/29/17 at 14:30 FRED RUIZ MD Jan 30, 2017 10:45
--- NOTE | 2017-01-30 12:15 | PN ---
Date/Time of Note Date/Time of Note DATE: 01/30/17 TIME: 12:11 Assessment/Plan Lines/Catheters IV Catheter Type (from Nrs): PICC Line Sullivan in Place (from Nrs): Yes Assessment/Plan Assessment/Plan [facility] Progress Note Date of Service: 01/30/17 Today's Impression & Plan: Overall stable. Sacral wound appears to be healing relatively well despite known osteomyelitis of sacrum, confirmed on pathology. The wound did not appear to be contaminated by the stool and for this reason, I do not believe that the patient requires a diverting ostomy at this time. I also did not see any reason to take the patient back to the operating room for further excisional biopsy. Wound certainly needs continued care and I believe that the wound VAC is a good option. I would also continue the broad-spectrum antimicrobials and leave the decisions regarding length of stay and length of antimicrobial therapy in the capable hands of our other colleagues, especially Dr. Shen from infectious disease. Discussed with nursing staff. With above assessment, I've recommended the following for today: 1. Cont dressing changes 2. Cont PEG tube feeds 3. Continue broad-spectrum antimicrobials as needed for osteomyelitis Nature of presenting problem: High complexity Thank you again for your great care of this very pleasant patient and wonderful family. If there are any questions, please feel free to call me at [phone]. Disclaimer: Inadvertent spelling or grammatical errors are likely due to EHR/ dictation software use and do not reflect on the overall quality of patient care. Updated clinical summary: A very-pleasant but unfortunate 81-year-old lady with multiple comorbidities including diabetes mellitus complicated by left heel decubitus ulcer as well as right below the knee amputation and paroxysmal atrial fibrillation, presenting with stage IV decubitus ulcer overlying her sacrum. Comorbidities: 1. Infected stage IV sacral decubitus pressure ulcer with possible osteomyelitis of the coccyx; s/p excisional debridement with scissors of a 10 x 5 x 3.5 cm coccygeal and sacral decubitus ulcer and removal of 30 cm of tissue including small part of the coccyx bone (ostectomy, 1x1x1 cm) and down to muscle in the upper part of the ulcer area and application of 2 g of Micro Matrix paste 2. Diabetes mellitus complicated by left heel decubitus ulcer as well as right below the knee amputation 3. Paroxysmal atrial fibrillation 4. Left upper extremity DVT with superficial thrombosis 5. Hypertension 6. Aspiration pneumonia 7. Osteomyelitis at the posterior calcaneal margin, treated with meropenem and vancomycin 8. Severe malnutrition with prealbumin 3.1 after hydration and albumin of 1.5 9. Peripheral vascular disease 10. Dementia 11. BMI 27.5 Subjective: No major events or complaints; no major abd pain and under control with medications; no n/v/d; no sob or cp; + flatus; + BM; - activity Objective: Vitals: See below Exam: GENERAL: On exam, the patient was laying in bed and appeared to be comfortable and in no acute distress. Much more awake today and interactive. ABDOMEN: Soft, nontender and nondistended. Incision dressings are clean, dry and intact without any evidence of erythema, edema, discharge, or hernia. There are no peritoneal signs or guarding. PEG dressing clean and tube feeds ongoing. I observed the dressing change with the nurses. We took the wound VAC off and I carefully examined his sacral wound. There is already nice beefy red granulation tissue forming in the cavity and there is no evidence of any necrotic material that needs excisional debridement. There was also no obvious evidence of stool contamination despite the fact that the patient had diarrhea nearby. The wound VAC appeared to be controlling this well. SKIN: Skin appears to be pink and feels warm to touch. NEUROLOGIC: Patient is arousable and follows simple commands appropriately. Exam/Review of Systems Vital Signs Vitals Vital Signs Date Time Temp Pulse Resp B/P Pulse Ox O2 Delivery O2 Flow Rate FiO2 01/30/17 08:00 98.3 92 18 148/61 96 01/30/17 02:00 Nasal Cannula 2.0 Intake and Output 01/29/17 01/29/17 01/30/17 15:00 23:00 07:00 Intake Total 150 ml 1170 ml 460 ml Output Total 750 ml 925 ml Balance 150 ml 420 ml -465 ml Results Result Diagram: 01/30/17 0453 01/28/17 1300 OMAR HINOJOSA M.D. Jan 30, 2017 12:15
--- NOTE | 2017-01-30 12:25 | CONS ---
Date/Time of Note Date/Time of Note DATE: 01/30/17 TIME: 12:22 Assessment/Plan Assessment/Plan Chief Complaint/Hosp Course 1) progressive sacral ulcer, surrounding cellulitis await surgical input and debridement, consider MRI depending upon surgical eval wound cx to be obtained continue with vanco/merrem check ESR, CRP in a.m. 01/17 - proteus and another GNR in wound cx continue with merrem/vanco esr and CRP are moderately elevated mrsa to nares to start bactroban await surgical input pt is more awake today and able to answer some questions in pakistani 01/18 - pt persistence of fever and elevated wbc is either due to an undrained abscess or inadequate antibiotics await wound care eval and surgical debridement will order MRI scan if no wound care is delivered by tomorrow wound cx has proteus, GNR and enterococcus continue with vanco/merrem at present 01/19 - wound cx are all sensitive to current antibiotics of vanco/merrem MRI of pelvis/abd was done but results not available pt to get debridement later this am. 01/20 - s/p debridement, some bone was shaved, MRI did not show osteo await path report continue with vanco/merrem fevers and WBC improved post debridement pt will need good nutrition to heal this wound, consider g-tube if pt not eating well 01/22 - pt to get g-tube for better nutrition continue with vanco/merrem thru 02/01/17 consider doxy for 2 weeks after that path specimen did not identify bone to examine for osteo 01/25 - WBC improved today and ESR was down from 78 to 65 no new issues continue with vanco/merrrem at present thru 02/01 then po doxy for 2 weeks 01/26 - re-culture the site continue vanco/merrem 01/27 - vac pump is applied re-cx of site has GNR so far 01/28 - acinetobacter now present and addendum to path shows osteomyelitis continue with merrem change vanco to minocycline send out for sensi's for colistin, avycaz, minocycline and tigecycline 01/29 - 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 01/30 - esr was a bit better continue with tigecycline/merrem, no need for diverting colostomy at this time as stool does not appear to be contaminating the sacral wound await final send out sensi's on the acinetobacter wbc is up but tigecycline can cause elevation of wbc 2) L heal ulcer with eschar no surrounding redness noted on picture 3) PVD 4) recent hx of LUE DVT 5) HTN 6) leukocytosis 01/26 - get u/a and urine cx, c.dif was sent off re-culture the sacral wound site doubt a pulmonary issue 01/27 - c.dif was neg WBC has improved without change in antibiotics urine cx is NGTD (prior one was only yeast) wound cx has GNR only so far continue present management 01/28 - wound cx is now growing highly resistant acinetobacter will adjust antibiotics and await send out sensi's to verify the best regimen for pt 01/29 - wound cx also grew VRE now on merrem/tigecycline 01/30 - await final sensi' results for acinetobacter tigecycline can cause increase in the WBC Problems: Consultation Date/Type/Reason Admit Date/Time Jan 15, 2017 at 14:33 Initial Consult Date 01/16/17 Type of Consultation: ID Referring Provider: RIDGE MATTHEWS MD 24 HR Interval Summary Free Text/Dictation spoke to nurse has loose stools otherwise tolerating TF no V, change in breathing Exam/Review of Systems Vital Signs Vitals Vital Signs Date Time Temp Pulse Resp B/P Pulse Ox O2 Delivery O2 Flow Rate FiO2 01/30/17 08:00 98.3 92 18 148/61 96 01/30/17 02:00 Nasal Cannula 2.0 Intake and Output 01/29/17 01/29/17 01/30/17 15:00 23:00 07:00 Intake Total 150 ml 1170 ml 460 ml Output Total 750 ml 925 ml Balance 150 ml 420 ml -465 ml Exam Extremities: other (sacral area, around the wound vac there is dull redness, no sign of active cellulitis) Results Result Diagram: 01/30/17 0453 01/28/17 1300 Results 24 hrs Laboratory Tests Test 01/29/17 20:29 01/30/17 00:40 01/30/17 04:40 01/30/17 04:53 Bedside Glucose 157 177 161 White Blood Count 19.5 H Red Blood Count 3.20 L Hemoglobin 9.0 L Hematocrit 27.8 L Mean Corpuscular Volume 86.9 Mean Corpuscular Hemoglobin 28.1 L Mean Corpuscular Hemoglobin Concent 32.4 Red Cell Distribution Width 15.9 H Platelet Count 325 Mean Platelet Volume 9.8 Neutrophils % 67.9 Lymphocytes % 20.3 Monocytes % 7.6 Eosinophils % 2.6 Basophils % 0.6 Nucleated Red Blood Cells % 0.0 Neutrophils # (Manual) 13.2 H Lymphocytes # 4.0 H Monocytes # 1.5 H Eosinophils # 0.5 Basophils # 0.1 Nucleated Red Blood Cells # 0.0 Erythrocyte Sedimentation Rate 83 H Test 01/30/17 08:33 Bedside Glucose 182 Medications Medications Current Medications Ondansetron HCl (Zofran Inj) 4 mg Q6H PRN IV NAUSEA AND/OR VOMITING; Start at 16:30 Acetaminophen (Tylenol Tab) 650 mg Q6H PRN PO PAIN LEVEL 1-3 OR FEVER Last administered on 01/17/17 06:40; Admin Dose 650 MG; Start 01/15/17 at 16:30 Magnesium Hydroxide (Milk Of Mag) 30 ml DAILY PRN PO CONSTIPATION Last administered on 01/24/17 09:15; Admin Dose 30 ML; Start 01/15/17 at 16:30 Aspirin (Halfprin) 81 mg DAILY PO Last administered on 01/30/17 08:37; Admin Dose 81 MG; Start 01/16/17 at 09:00 Losartan Potassium (Cozaar) 100 mg BID PO Last administered on 01/30/17 08:38; Admin Dose 100 MG; Start 01/15/17 at 21:00 Montelukast Sodium (Singulair) 10 mg QHS PO Last administered on 01/29/17 20:32 ; Admin Dose 10 MG; Start 01/15/17 at 21:00 IV Flush (NS 10 ml) 10 ml PRN PRN IV IV PROTOCOL; Start 01/15/17 at 18:30 Miscellaneous Information 1 ea NOTE XX ; Start 01/15/17 at 19:00 Glucose (Glutose) 15 gm Q15M PRN PO DECREASED GLUCOSE; Start 01/15/17 at 19:00 Glucose (Glutose) 22.5 gm Q15M PRN PO DECREASED GLUCOSE; Start 01/15/17 at 19: 00 Dextrose (D50w Syringe) 25 ml Q15M PRN IV DECREASED GLUCOSE Last administered on 01/21/17 20:37; Admin Dose 25 ML; Start 01/15/17 at 19:00 Dextrose (D50w Syringe) 50 ml Q15M PRN IV DECREASED GLUCOSE; Start 01/15/17 at 19:00 Glucagon (Glucagen) 1 mg Q15M PRN IM DECREASED GLUCOSE; Start 01/15/17 at 19:00 Glucose (Glutose) 15 gm Q15M PRN BUCCAL DECREASED GLUCOSE Last administered on 01/21/17 19:53; Admin Dose 15 GM; Start 01/15/17 at 19:00 Diagnostic Test (Pha) (Accu-Chek) 1 ea 02 XX Last administered on 01/29/17 01: 36; Admin Dose 1 EA; Start 01/16/17 at 02:00 Clonidine (Catapres) 0.1 mg Q6H PRN PO BLOOD PRESSURE SBP>160 Last administered on 01/16/17 23:42; Admin Dose 0.1 MG; Start 01/15/17 at 20:30 Miscellaneous Information (Pending Santyl Order For Wound Care) This patient jean baptiste... PRN PRN XX WOUND CARE; Start 01/15/17 at 22:00 Collagenase (Santyl) 1 applic DAILY TOP Last administered on 01/29/17 09:52; Admin Dose 1 APPLIC; Start 01/16/17 at 21:00 Hydralazine HCl (Apresoline) 10 mg Q6 PRN IV ELEVATED BLOOD PRESSURE Last administered on 01/17/17 03:05; Admin Dose 10 MG; Start 01/17/17 at 03:00 Acetaminophen (Tylenol Supp) 650 mg Q6H PRN HI FEVER GREATER THAN 100.6 Last administered on 01/17/17 07:26; Admin Dose 650 MG; Start 01/17/17 at 07:00 Mupirocin (Bactroban) 1 applic BID TOP Last administered on 01/30/17 08:56; Admin Dose 1 APPLIC; Start 01/17/17 at 11:00 Ferrous Sulfate (Slow Fe) 142 mg DAILY PO Last administered on 01/30/17 08:37; Admin Dose 142 MG; Start 01/18/17 at 14:30 Calcium Carbonate (Tums) 500 mg BID PO Last administered on 01/30/17 08:38; Admin Dose 500 MG; Start 01/18/17 at 14:30 Nystatin (Nystatin Powder) 1 applic BID TOP Last administered on 01/30/17 08:56 ; Admin Dose 1 APPLIC; Start 01/18/17 at 21:00 Sodium Hypochlorite (Dakin'S (1/4 Strength)) 1 applic BID IRR Last administered on 01/29/17 09:52; Admin Dose 1 APPLIC; Start 01/18/17 at 21:00 Acetaminophen/ Hydrocodone Bitart ([place] (5/325)) 1 tab Q4H PRN PO PAIN LEVEL 4 -7 Last administered on 01/27/17 20:23; Admin Dose 1 TAB; Start 01/19/17 at 12: 00 Acetaminophen/ Hydrocodone Bitart ([place] (5/325)) 2 tab Q4H PRN PO PAIN LEVEL 7 -10; Start 01/19/17 at 12:00 Docusate Sodium (Colace) 100 mg BID PRN PO CONSTIPATION; Start 01/19/17 at 12: 00 Bisacodyl (Dulcolax Supp) 10 mg BID PRN HI CONSTIPATION; Start 01/19/17 at 12: 00 Sodium Biphosphate/ Sodium Phosphate 133 ml 133 ml BID PRN HI CONSTIPATION; Start 01/19/17 at 12:00 Meropenem/Sodium Chloride (Merrem 1 Gm/50 ml (Pmx)) 50 ml @ 100 mls/hr Q8 IVPB Last administered on 01/30/17 05:36; Admin Dose 100 MLS/HR; Start 01/19/17 at 15:00 Famotidine (Pepcid) 20 mg DAILY PO Last administered on 01/30/17 08:37; Admin Dose 20 MG; Start 01/21/17 at 09:00 Zolpidem Tartrate (Ambien) 10 mg HS PRN PO INSOMNIA Last administered on 23:25; Admin Dose 10 MG; Start 01/21/17 at 13:30 IV Flush (NS 10 ml) 10 ml PRN PRN IV IV PROTOCOL; Start 01/21/17 at 19:00 Insulin Human NPH (Humulin N) 10 unit BID@08,20 SC Last administered on 08:36; Admin Dose 10 UNIT; Start 01/22/17 at 08:00 Zinc Sulfate (Zinc Sulfate) 220 mg DAILY GTB Last administered on 01/30/17 08: 38; Admin Dose 220 MG; Start 01/23/17 at 15:30; Stop 02/05/17 at 09:01 Ascorbic Acid (Vitamin C) 500 mg BID GTB Last administered on 01/30/17 08:37; Admin Dose 500 MG; Start 01/23/17 at 21:00 Multivitamins (Multivitamin) 30 ml DAILY GTB Last administered on 01/30/17 08: 38; Admin Dose 30 ML; Start 01/23/17 at 17:00 Insulin Aspart (Novolog Insulin Pen) NOVOLOG *MODERATE* ALGORITHM Q4 SC Last administered on 01/30/17 08:37; Admin Dose 4 UNIT; Start 01/27/17 at 17:00 Neomycin/ Polymyxin/ Bacitracin (Neosporin Topical Oint) 1 applic BID TOP Last administered on 01/30/17 08:56; Admin Dose 1 APPLIC; Start 01/28/17 at 09:00 Hydrogen Peroxide (Hydrogen Peroxide) 1 applic BID TOP Last administered on 01/30 08:55; Admin Dose 1 APPLIC; Start 01/28/17 at 09:00 Apixaban 5 mg 5 mg BID PO Last administered on 01/30/17 08:38; Admin Dose 5 MG ; Start 01/28/17 at 14:00 Tigecycline/ Sodium Chloride (Tygacil/NS) 100 ml @ 200 mls/hr Q12 IVPB Last administered on 01/29/17 20:31; Admin Dose 200 MLS/HR; Start 01/29/17 at 21:00 Methadone HCl (Methadone) 20 mg BID PRN PO pain Last administered on 01/30/17 08:43; Admin Dose 20 MG; Start 01/29/17 at 14:30 ANTHONY WOODARD MD Jan 30, 2017 12:25
[2017-01-30] MEDS: SODIUM HYPOCHLORITE 0.125% 473 ML BTL IRR SCH ×2 (12:48→20:52)
[2017-01-30] MEDS: TIGECYCLINE 50 MG in SOD CHLORIDE 0.9% 100 ML IVPB SCH ×2 (12:48→20:51)
[2017-01-30 14:00] VITALS: BP 131/80; RESP 18
[2017-01-30 20:00] VITALS: BP 106/54; RESP 22
[2017-01-30] MEDS ORDERED: ALTEPLASE (CATHFLO) 2 MG INJ CATHETER ONE (20:00)
[2017-01-30] MEDS: MONTELUKAST 10 MG TAB PO SCH (20:51)
[2017-01-31] MEDS: INSULIN ASPART [NOVOLOG] 3 ML PEN SC SCH ×6 (01:00→21:16)
[2017-01-31] MEDS: ACCU-CHEK XX SCH (01:09)
--- NOTE | 2017-01-31 02:05 | PN ---
DATE: 01/30/2017 SUBJECTIVE DATA: The patient is demented. She does not respond to verbal stimuli, but she is awake. OBJECTIVE DATA: CHEST: Clear to A and P. HEART: Normal sinus rhythm. No murmurs, no enlargement. ABDOMEN: Liver, kidney, spleen not palpable. Bowel sounds are normal. There is a G-tube in place. EXTREMITIES: [id number] amputation of the right leg. Amputation of the left great toe. LABORATORY AND DIAGNOSTIC DATA: [place] [address], hemoglobin 9.6, hematocrit 27.8, platelet count is normal. Differential normal. Sed rate 83 mm/hour. INR 1.31. Blood glucose 188. C-reactive protein elevated at 6. Sodium 135, potassium 4.4, chloride 101, carbon dioxide 32, glucose 218, BUN 12, creatinine 0.92. Elevated alk phos at 230. Reversed A/G ratio. Polyuria, budding yeast in the urine. Hepatitis B negative, hepatitis C negative. MRSA culture: No MRSA found. Urine culture: Sienna found in the urine. PLAN: Get a CMP and a CBC. Dictated By: Leonard Meza MD /[email or web address]/jose manuel /Document#: [id number]
[2017-01-31 02:51] VITALS: BP 125/53; RESP 18
[2017-01-31 05:24] LABS: BASOPHIL # 0.1 10^3/ul (0.0-0.1); BASOPHILS % 0.7 % (0.0-2.0); EOSINOPHILS # 0.5 10^3/ul (0.0-0.5); HEMOGLOBIN 8.1 g/dl (12.0-16.0); LYMPHOCYTES # 4.7 10^3/ul (0.8-2.9); LYMPHOCYTES % 26.9 % (15.0-51.0); MEAN CORPUSCULAR HEMOGLOBIN 27.1 pg (29.0-33.0); MEAN CORPUSCULAR HGB CONC 31.2 g/dl (32.0-37.0); MONOCYTE # 1.5 10^3/ul (0.3-0.9); MONOCYTES % 8.5 % (0.0-11.0); PLATELET COUNT 312 10^3/UL (140-415); RED BLOOD COUNT 2.99 10^6/ul (4.20-5.40); RED CELL DISTRIBUTION WIDTH 16.2 % (11.5-14.5); WHITE BLOOD COUNT 17.5 10^3/ul (4.8-10.8)
[2017-01-31] MEDS: MEROPENEM 1 GM/50ML(PMX) 50 ML IVPB SCH ×3 (05:55→22:09)
[2017-01-31] MEDS: METHADONE 10 MG TAB PO PRN (06:02)
[2017-01-31 06:06] LABS: ALBUMIN/GLOBULIN RATIO 0.62; BILIRUBIN,INDIRECT 0.3 mg/dl (0-1.1); BILIRUBIN,TOTAL 0.3 mg/dl (0.2-1.3); CALCIUM 8.6 mg/dl (8.4-10.2); CREATININE 0.55 mg/dl (0.44-1.00); POTASSIUM 4.2 mmol/L (3.5-5.1); TOTAL PROTEIN 5.2 g/dl (6.1-8.1)
[2017-01-31 08:28] VITALS: BP 126/52; RESP 18
[2017-01-31] MEDS: MUPIROCIN 2% 22 GM OINT TOP SCH ×2 (09:00→21:11)
[2017-01-31] MEDS: SODIUM HYPOCHLORITE 0.125% 473 ML BTL IRR SCH ×2 (09:00→21:00)
[2017-01-31] MEDS: ASCORBIC ACID 500 MG TAB GTB SCH ×2 (09:10→21:09)
[2017-01-31] MEDS: ZINC SULFATE 220 MG CAP GTB SCH (09:10)
[2017-01-31] MEDS: CALCIUM CARBONATE 500 MG CHEW TAB PO SCH ×2 (09:11→21:09)
[2017-01-31] MEDS: MULTIVITAMINS 30 ML CUP GTB SCH (09:11)
[2017-01-31] MEDS: ASPIRIN (EC) 81 MG TAB PO SCH (09:11)
[2017-01-31] MEDS: LOSARTAN 50 MG TAB PO SCH ×2 (09:11→21:09)
[2017-01-31] MEDS: APIXABAN 5 MG TABLET PO SCH ×2 (09:11→21:09)
[2017-01-31] MEDS: FERROUS SULFATE (SR) 142 MG TAB PO SCH (09:11)
[2017-01-31] MEDS: FAMOTIDINE 20 MG TAB PO SCH (09:11)
[2017-01-31] MEDS: NYSTATIN 30 GM POWDER BTL TOP SCH ×2 (09:12→21:11)
[2017-01-31] MEDS: NEOMYC/POLYMYX/BACIT 30 GM OINT TOP SCH ×2 (09:12→21:14)
[2017-01-31] MEDS: HYDROGEN PEROXIDE 118 ML TOP SCH ×2 (09:12→21:14)
[2017-01-31] MEDS: COLLAGENASE 30 GM TUBE TOP SCH (09:13)
[2017-01-31] MEDS: TIGECYCLINE 50 MG in SOD CHLORIDE 0.9% 100 ML IVPB SCH ×2 (09:14→21:10)
[2017-01-31] MEDS: NPH, HUMAN INSULIN ISOPHANE 3ML VIAL SC SCH ×2 (09:17→21:08)
[2017-01-31 15:05] VITALS: BP 136/58; RESP 17
[2017-01-31] MEDS: HYDROCODONE/APAP (5/325) TAB PO PRN (19:37)
[2017-01-31 20:10] VITALS: BP 135/34; RESP 19
[2017-01-31] MEDS: MONTELUKAST 10 MG TAB PO SCH (21:09)
[2017-02-01] MEDS: INSULIN ASPART [NOVOLOG] 3 ML PEN SC SCH ×6 (01:00→21:00)
[2017-02-01] MEDS: ACCU-CHEK XX SCH (02:00)
[2017-02-01 02:32] VITALS: BP 140/55; RESP 18
[2017-02-01] MEDS: MEROPENEM 1 GM/50ML(PMX) 50 ML IVPB SCH ×3 (05:31→23:05)
[2017-02-01 05:45] LABS: BASOPHIL # 0.1 10^3/ul (0.0-0.1); BASOPHILS % 0.7 % (0.0-2.0); EOSINOPHILS # 0.6 10^3/ul (0.0-0.5); EOSINOPHILS % 3.9 % (0.0-7.0); HEMATOCRIT 27.2 % (37.0-47.0); HEMOGLOBIN 8.6 g/dl (12.0-16.0); LYMPHOCYTES # 4.7 10^3/ul (0.8-2.9); LYMPHOCYTES % 29.4 % (15.0-51.0); MEAN CORPUSCULAR HEMOGLOBIN 27.7 pg (29.0-33.0); MEAN CORPUSCULAR HGB CONC 31.6 g/dl (32.0-37.0); MEAN CORPUSCULAR VOLUME 87.5 fl (82.0-101.0); MONOCYTE # 1.3 10^3/ul (0.3-0.9); MONOCYTES % 8.2 % (0.0-11.0); PLATELET COUNT 319 10^3/UL (140-415); RED BLOOD COUNT 3.11 10^6/ul (4.20-5.40); RED CELL DISTRIBUTION WIDTH 15.9 % (11.5-14.5)
[2017-02-01 06:18] LABS: CALCIUM 8.7 mg/dl (8.4-10.2); CREATININE 0.57 mg/dl (0.44-1.00); POTASSIUM 4.2 mmol/L (3.5-5.1)
[2017-02-01] MEDS: HYDROCODONE/APAP (5/325) TAB PO PRN ×3 (06:26→17:34)
--- NOTE | 2017-02-01 06:33 | PN ---
DATE: 01/31/2017 SUBJECTIVE DATA: The patient is essentially unchanged. She is awake, but does not respond to verbal stimulation. OBJECTIVE DATA: CHEST: Clear to A and P. HEART: Normal sinus rhythm. ABDOMEN: Liver, kidney, spleen not palpable. Patient has a gastric feeding tube in place. EXTREMITIES: She has a right [id number] amputation. This is amputation of left great toe. VITAL SIGNS: Temperature 99, blood pressure 136/58, pulse is 80, history respiratory rate 19. Intake and output 1700 mL intake, 1525 output. LABORATORY AND DIAGNOSTIC DATA: White blood cell count 27466, hemoglobin 8.1 g percent, hematocrit 25 percent. Platelet count is normal. Differential normal. Sed rate is 3 mL/hour. Blood glucose 192. PLAN: The patient's condition remained stable. However, it is poor. She does not appear to respond to stimulation. Dictated By: Leonard Meza MD /[email or web address] /Document#: [id number]
--- NOTE | 2017-02-01 07:25 | CONS ---
Date/Time of Note Date/Time of Note DATE: 02/01/17 TIME: 07:22 Assessment/Plan Assessment/Plan Chief Complaint/Hosp Course 1) progressive sacral ulcer, surrounding cellulitis await surgical input and debridement, consider MRI depending upon surgical eval wound cx to be obtained continue with vanco/merrem check ESR, CRP in a.m. 01/17 - proteus and another GNR in wound cx continue with merrem/vanco esr and CRP are moderately elevated mrsa to nares to start bactroban await surgical input pt is more awake today and able to answer some questions in salvadorean 01/18 - pt persistence of fever and elevated wbc is either due to an undrained abscess or inadequate antibiotics await wound care eval and surgical debridement will order MRI scan if no wound care is delivered by tomorrow wound cx has proteus, GNR and enterococcus continue with vanco/merrem at present 01/19 - wound cx are all sensitive to current antibiotics of vanco/merrem MRI of pelvis/abd was done but results not available pt to get debridement later this am. 01/20 - s/p debridement, some bone was shaved, MRI did not show osteo await path report continue with vanco/merrem fevers and WBC improved post debridement pt will need good nutrition to heal this wound, consider g-tube if pt not eating well 01/22 - pt to get g-tube for better nutrition continue with vanco/merrem thru 02/01/17 consider doxy for 2 weeks after that path specimen did not identify bone to examine for osteo 01/25 - WBC improved today and ESR was down from 78 to 65 no new issues continue with vanco/merrrem at present thru 02/01 then po doxy for 2 weeks 01/26 - re-culture the site continue vanco/merrem 01/27 - vac pump is applied re-cx of site has GNR so far 01/28 - acinetobacter now present and addendum to path shows osteomyelitis continue with merrem change vanco to minocycline send out for sensi's for colistin, avycaz, minocycline and tigecycline 01/29 - 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 01/30 - esr was a bit better continue with tigecycline/merrem, no need for diverting colostomy at this time as stool does not appear to be contaminating the sacral wound await final send out sensi's on the acinetobacter wbc is up but tigecycline can cause elevation of wbc 02/01 - spoke to surgeon who said wound is improved, but there is farooq exposure still awaitin sensi's on the acinetobacter wbc is slowly coming down but tigecycline can cause an increase in WBC continue merrem/tigecycline 2) L heal ulcer with eschar no surrounding redness noted on picture 3) PVD 4) recent hx of LUE DVT 5) HTN 6) leukocytosis 01/26 - get u/a and urine cx, c.dif was sent off re-culture the sacral wound site doubt a pulmonary issue 01/27 - c.dif was neg WBC has improved without change in antibiotics urine cx is NGTD (prior one was only yeast) wound cx has GNR only so far continue present management 01/28 - wound cx is now growing highly resistant acinetobacter will adjust antibiotics and await send out sensi's to verify the best regimen for pt 01/29 - wound cx also grew VRE now on merrem/tigecycline 01/30 - await final sensi' results for acinetobacter tigecycline can cause increase in the WBC Problems: Consultation Date/Type/Reason Admit Date/Time Jan 15, 2017 at 14:33 Initial Consult Date 01/16/17 Type of Consultation: ID Referring Provider: RIDGE MATTHEWS MD 24 HR Interval Summary Free Text/Dictation pt follows directions in salvadorean no reports by sitter of V, D, pain Exam/Review of Systems Vital Signs Vitals Vital Signs Date Time Temp Pulse Resp B/P Pulse Ox O2 Delivery O2 Flow Rate FiO2 02/01/17 02:32 97.5 83 18 140/55 99 01/31/17 20:00 Nasal Cannula 2.0 Intake and Output 01/31/17 01/31/17 02/01/17 15:00 23:00 07:00 Intake Total 150 ml 1090 ml 430 ml Output Total 575 ml 660 ml Balance 150 ml 515 ml -230 ml Exam Constitutional: alert ENMT: mucosa pink and moist Respiratory: clear to auscultation Cardiovascular: regular rate and rhythm Gastrointestinal: non-tender, soft Results Result Diagram: 02/01/17 0439 02/01/17 0440 Results 24 hrs Laboratory Tests Test 01/31/17 09:10 01/31/17 12:52 01/31/17 17:09 01/31/17 21:03 Bedside Glucose 167 207 175 192 Test 02/01/17 01:26 02/01/17 04:39 02/01/17 04:40 02/01/17 05:28 Bedside Glucose 162 147 White Blood Count 16.0 H Red Blood Count 3.11 L Hemoglobin 8.6 L Hematocrit 27.2 L Mean Corpuscular Volume 87.5 Mean Corpuscular Hemoglobin 27.7 L Mean Corpuscular Hemoglobin Concent 31.6 L Red Cell Distribution Width 15.9 H Platelet Count 319 Mean Platelet Volume 10.0 Neutrophils % 57.0 Lymphocytes % 29.4 Monocytes % 8.2 Eosinophils % 3.9 Basophils % 0.7 Nucleated Red Blood Cells % 0.0 Neutrophils # (Manual) 9.1 H Lymphocytes # 4.7 H Monocytes # 1.3 H Eosinophils # 0.6 H Basophils # 0.1 Nucleated Red Blood Cells # 0.0 Sodium Level 137 Potassium Level 4.2 Chloride Level 101 Carbon Dioxide Level 33 H Anion Gap 7 L Blood Urea Nitrogen 30 H Creatinine 0.57 Glucose Level 119 Calcium Level 8.7 Medications Medications Current Medications Ondansetron HCl (Zofran Inj) 4 mg Q6H PRN IV NAUSEA AND/OR VOMITING; Start at 16:30 Acetaminophen (Tylenol Tab) 650 mg Q6H PRN PO PAIN LEVEL 1-3 OR FEVER Last administered on 01/17/17 06:40; Admin Dose 650 MG; Start 01/15/17 at 16:30 Magnesium Hydroxide (Milk Of Mag) 30 ml DAILY PRN PO CONSTIPATION Last administered on 01/24/17 09:15; Admin Dose 30 ML; Start 01/15/17 at 16:30 Aspirin (Halfprin) 81 mg DAILY PO Last administered on 01/31/17 09:11; Admin Dose 81 MG; Start 01/16/17 at 09:00 Losartan Potassium (Cozaar) 100 mg BID PO Last administered on 01/31/17 21:09 ; Admin Dose 100 MG; Start 01/15/17 at 21:00 Montelukast Sodium (Singulair) 10 mg QHS PO Last administered on 01/31/17 21: 09; Admin Dose 10 MG; Start 01/15/17 at 21:00 IV Flush (NS 10 ml) 10 ml PRN PRN IV IV PROTOCOL; Start 01/15/17 at 18:30 Miscellaneous Information 1 ea NOTE XX ; Start 01/15/17 at 19:00 Glucose (Glutose) 15 gm Q15M PRN PO DECREASED GLUCOSE; Start 01/15/17 at 19:00 Glucose (Glutose) 22.5 gm Q15M PRN PO DECREASED GLUCOSE; Start 01/15/17 at 19: 00 Dextrose (D50w Syringe) 25 ml Q15M PRN IV DECREASED GLUCOSE Last administered on 01/21/17 20:37; Admin Dose 25 ML; Start 01/15/17 at 19:00 Dextrose (D50w Syringe) 50 ml Q15M PRN IV DECREASED GLUCOSE; Start 01/15/17 at 19:00 Glucagon (Glucagen) 1 mg Q15M PRN IM DECREASED GLUCOSE; Start 01/15/17 at 19:00 Glucose (Glutose) 15 gm Q15M PRN BUCCAL DECREASED GLUCOSE Last administered on 01/21/17 19:53; Admin Dose 15 GM; Start 01/15/17 at 19:00 Diagnostic Test (Pha) (Accu-Chek) 1 ea 02 XX Last administered on 01/29/17 01: 36; Admin Dose 1 EA; Start 01/16/17 at 02:00 Clonidine (Catapres) 0.1 mg Q6H PRN PO BLOOD PRESSURE SBP>160 Last administered on 01/16/17 23:42; Admin Dose 0.1 MG; Start 01/15/17 at 20:30 Miscellaneous Information (Pending Santyl Order For Wound Care) This patient jean baptiste... PRN PRN XX WOUND CARE; Start 01/15/17 at 22:00 Collagenase (Santyl) 1 applic DAILY TOP Last administered on 01/31/17 09:13; Admin Dose 1 APPLIC; Start 01/16/17 at 21:00 Hydralazine HCl (Apresoline) 10 mg Q6 PRN IV ELEVATED BLOOD PRESSURE Last administered on 01/17/17 03:05; Admin Dose 10 MG; Start 01/17/17 at 03:00 Acetaminophen (Tylenol Supp) 650 mg Q6H PRN [place] FEVER GREATER THAN 100.6 Last administered on 01/17/17 07:26; Admin Dose 650 MG; Start 01/17/17 at 07:00 Mupirocin (Bactroban) 1 applic BID TOP Last administered on 01/31/17 21:11; Admin Dose 1 APPLIC; Start 01/17/17 at 11:00 Ferrous Sulfate (Slow Fe) 142 mg DAILY PO Last administered on 01/31/17 09:11 ; Admin Dose 142 MG; Start 01/18/17 at 14:30 Calcium Carbonate (Tums) 500 mg BID PO Last administered on 01/31/17 21:09; Admin Dose 500 MG; Start 01/18/17 at 14:30 Nystatin (Nystatin Powder) 1 applic BID TOP Last administered on 01/31/17 21: 11; Admin Dose 1 APPLIC; Start 01/18/17 at 21:00 Sodium Hypochlorite (Dakin'S (1/4 Strength)) 1 applic BID IRR Last administered on 01/29/17 09:52; Admin Dose 1 APPLIC; Start 01/18/17 at 21:00 Acetaminophen/ Hydrocodone Bitart ([place] (5/325)) 1 tab Q4H PRN PO PAIN LEVEL 4 -7 Last administered on 02/01/17 06:26; Admin Dose 1 TAB; Start 01/19/17 at 12: 00 Acetaminophen/ Hydrocodone Bitart ([place] (5/325)) 2 tab Q4H PRN PO PAIN LEVEL 7 -10; Start 01/19/17 at 12:00 Docusate Sodium (Colace) 100 mg BID PRN PO CONSTIPATION; Start 01/19/17 at 12: 00 Bisacodyl (Dulcolax Supp) 10 mg BID PRN [place] CONSTIPATION; Start 01/19/17 at 12: 00 Sodium Biphosphate/ Sodium Phosphate 133 ml 133 ml BID PRN [place] CONSTIPATION; Start 01/19/17 at 12:00 Meropenem/Sodium Chloride (Merrem 1 Gm/50 ml (Pmx)) 50 ml @ 100 mls/hr Q8 IVPB Last administered on 02/01/17 05:31; Admin Dose 100 MLS/HR; Start 01/19/17 at 15:00 Famotidine (Pepcid) 20 mg DAILY PO Last administered on 01/31/17 09:11; Admin Dose 20 MG; Start 01/21/17 at 09:00 Zolpidem Tartrate (Ambien) 10 mg HS PRN PO INSOMNIA Last administered on 23:25; Admin Dose 10 MG; Start 01/21/17 at 13:30 IV Flush (NS 10 ml) 10 ml PRN PRN IV IV PROTOCOL; Start 01/21/17 at 19:00 Insulin Human NPH (Humulin N) 10 unit BID@08,20 SC Last administered on 21:08; Admin Dose 10 UNIT; Start 01/22/17 at 08:00 Zinc Sulfate (Zinc Sulfate) 220 mg DAILY GTB Last administered on 01/31/17 09: 10; Admin Dose 220 MG; Start 01/23/17 at 15:30; Stop 02/05/17 at 09:01 Ascorbic Acid (Vitamin C) 500 mg BID GTB Last administered on 01/31/17 21:09; Admin Dose 500 MG; Start 01/23/17 at 21:00 Multivitamins (Multivitamin) 30 ml DAILY GTB Last administered on 01/31/17 09: 11; Admin Dose 30 ML; Start 01/23/17 at 17:00 Insulin Aspart (Novolog Insulin Pen) NOVOLOG *MODERATE* ALGORITHM Q4 SC Last administered on 01/31/17 21:16; Admin Dose 1 UNIT; Start 01/27/17 at 17:00 Neomycin/ Polymyxin/ Bacitracin (Neosporin Topical Oint) 1 applic BID TOP Last administered on 01/31/17 21:14; Admin Dose 1 APPLIC; Start 01/28/17 at 09:00 Hydrogen Peroxide (Hydrogen Peroxide) 1 applic BID TOP Last administered on 21:14; Admin Dose 1 APPLIC; Start 01/28/17 at 09:00 Apixaban 5 mg 5 mg BID PO Last administered on 01/31/17 21:09; Admin Dose 5 MG ; Start 01/28/17 at 14:00 Tigecycline/ Sodium Chloride (Tygacil/NS) 100 ml @ 200 mls/hr Q12 IVPB Last administered on 01/31/17 21:10; Admin Dose 200 MLS/HR; Start 01/29/17 at 21:00 Methadone HCl (Methadone) 20 mg BID PRN PO pain Last administered on 01/31/17 06:02; Admin Dose 20 MG; Start 01/29/17 at 14:30 ANTHONY WOODARD MD Feb 01, 2017 07:25
[2017-02-01] MEDS: SODIUM HYPOCHLORITE 0.125% 473 ML BTL IRR SCH ×2 (09:00→21:00)
[2017-02-01] MEDS: NPH, HUMAN INSULIN ISOPHANE 3ML VIAL SC SCH ×2 (11:12→20:51)
[2017-02-01] MEDS: TIGECYCLINE 50 MG in SOD CHLORIDE 0.9% 100 ML IVPB SCH ×2 (11:16→20:37)
[2017-02-01] MEDS: MULTIVITAMINS 30 ML CUP GTB SCH (11:22)
[2017-02-01] MEDS: ASCORBIC ACID 500 MG TAB GTB SCH ×2 (11:23→20:32)
[2017-02-01] MEDS: ZINC SULFATE 220 MG CAP GTB SCH (11:23)
[2017-02-01] MEDS: ASPIRIN (EC) 81 MG TAB PO SCH (11:23)
[2017-02-01] MEDS: CALCIUM CARBONATE 500 MG CHEW TAB PO SCH ×2 (11:23→20:32)
[2017-02-01] MEDS: FERROUS SULFATE (SR) 142 MG TAB PO SCH (11:23)
[2017-02-01] MEDS: FAMOTIDINE 20 MG TAB PO SCH (11:23)
[2017-02-01] MEDS: APIXABAN 5 MG TABLET PO SCH ×2 (11:23→20:33)
[2017-02-01] MEDS: LOSARTAN 50 MG TAB PO SCH ×2 (11:25→20:37)
[2017-02-01] MEDS: HYDROGEN PEROXIDE 118 ML TOP SCH ×2 (11:26→20:39)
[2017-02-01] MEDS: COLLAGENASE 30 GM TUBE TOP SCH (11:27)
[2017-02-01] MEDS: NYSTATIN 30 GM POWDER BTL TOP SCH ×2 (11:27→20:39)
[2017-02-01] MEDS: NEOMYC/POLYMYX/BACIT 30 GM OINT TOP SCH ×2 (11:27→20:39)
[2017-02-01] MEDS: MUPIROCIN 2% 22 GM OINT TOP SCH ×2 (11:28→20:40)
[2017-02-01 11:43] VITALS: BP 122/58; RESP 18
[2017-02-01 15:11] VITALS: BP 102/56; RESP 20
--- NOTE | 2017-02-01 18:12 | PN ---
Date/Time of Note Date/Time of Note DATE: 02/01/17 TIME: 18:11 Assessment/Plan VTE Prophylaxis VTE Prophylaxis Intervention: other Lines/Catheters IV Catheter Type (from Nrsg): PICC Line Central line still needed: Yes Urinary Cath still in place: Yes Reason Cath still needed: skin wounds contaminated by urine Assessment/Plan Assessment/Plan sacral stage IV decub, growing proteus and ecoli and s.aureus. on merrem/vanco , being treated by ID. 02/19 debrided and eval for osteo. called ortho- they report that nothing for them to do regarding fx or osteo of sacrum. wbc improving. -path report +osteo. ortho called and will not treat. - vre grew. now on tigecycline/merrem. -if wound does not improve, ID is recommending diverting colostomy. poor appetite- may be due to pain meds. for the next 24 hours will cont and then try to extend time between doses and also decrease dose. gtube in place. pt is allowed p.o. intake with aspiration precautions mentation better with less pain med. will open eyes and anwer questions today. pain controlled with methadone. will now start to decrease the dose. mrsa nares on bactroban nares left heal osteo- pod treating htn- been steady dmII since gtube feeding, adjusting the insulin. paroxysmal afib on last admission- occurred during sepsis and intubation. pt changed to elliquis h/o left dvt of UE. now on elliquis Subjective 24 Hr Interval Summary Free Text/Dictation arousible npo although should be allowed food Exam/Review of Systems Vital Signs Vitals Vital Signs Date Time Temp Pulse Resp B/P Pulse Ox O2 Delivery O2 Flow Rate FiO2 02/01/17 11:43 99.0 79 18 122/58 100 01/31/17 20:00 Nasal Cannula 2.0 Intake and Output 01/31/17 01/31/17 02/01/17 15:00 23:00 07:00 Intake Total 150 ml 1090 ml 430 ml Output Total 575 ml 660 ml Balance 150 ml 515 ml -230 ml Results Result Diagram: 02/01/17 0439 02/01/17 5620 Results 24 hrs Laboratory Tests Test 01/31/17 21:03 02/01/17 01:26 02/01/17 04:39 02/01/17 04:40 Bedside Glucose 192 162 White Blood Count 16.0 H Red Blood Count 3.11 L Hemoglobin 8.6 L Hematocrit 27.2 L Mean Corpuscular Volume 87.5 Mean Corpuscular Hemoglobin 27.7 L Mean Corpuscular Hemoglobin Concent 31.6 L Red Cell Distribution Width 15.9 H Platelet Count 319 Mean Platelet Volume 10.0 Neutrophils % 57.0 Lymphocytes % 29.4 Monocytes % 8.2 Eosinophils % 3.9 Basophils % 0.7 Nucleated Red Blood Cells % 0.0 Neutrophils # (Manual) 9.1 H Lymphocytes # 4.7 H Monocytes # 1.3 H Eosinophils # 0.6 H Basophils # 0.1 Nucleated Red Blood Cells # 0.0 Sodium Level 137 Potassium Level 4.2 Chloride Level 101 Carbon Dioxide Level 33 H Anion Gap 7 L Blood Urea Nitrogen 30 H Creatinine 0.57 Glucose Level 119 Calcium Level 8.7 Test 02/01/17 05:28 02/01/17 10:43 02/01/17 14:17 02/01/17 17:32 Bedside Glucose 147 144 174 163 Medications Medications Current Medications Ondansetron HCl (Zofran Inj) 4 mg Q6H PRN IV NAUSEA AND/OR VOMITING; Start at 16:30 Acetaminophen (Tylenol Tab) 650 mg Q6H PRN PO PAIN LEVEL 1-3 OR FEVER Last administered on 01/17/17 06:40; Admin Dose 650 MG; Start 01/15/17 at 16:30 Magnesium Hydroxide (Milk Of Mag) 30 ml DAILY PRN PO CONSTIPATION Last administered on 01/24/17 09:15; Admin Dose 30 ML; Start 01/15/17 at 16:30 Aspirin (Halfprin) 81 mg DAILY PO Last administered on 02/01/17 11:23; Admin Dose 81 MG; Start 01/16/17 at 09:00 Losartan Potassium (Cozaar) 100 mg BID PO Last administered on 02/01/17 11:25 ; Admin Dose 100 MG; Start 01/15/17 at 21:00 Montelukast Sodium (Singulair) 10 mg QHS PO Last administered on 01/31/17 21: 09; Admin Dose 10 MG; Start 01/15/17 at 21:00 IV Flush (NS 10 ml) 10 ml PRN PRN IV IV PROTOCOL; Start 01/15/17 at 18:30 Miscellaneous Information 1 ea NOTE XX ; Start 01/15/17 at 19:00 Glucose (Glutose) 15 gm Q15M PRN PO DECREASED GLUCOSE; Start 01/15/17 at 19:00 Glucose (Glutose) 22.5 gm Q15M PRN PO DECREASED GLUCOSE; Start 01/15/17 at 19: 00 Dextrose (D50w Syringe) 25 ml Q15M PRN IV DECREASED GLUCOSE Last administered on 01/21/17 20:37; Admin Dose 25 ML; Start 01/15/17 at 19:00 Dextrose (D50w Syringe) 50 ml Q15M PRN IV DECREASED GLUCOSE; Start 01/15/17 at 19:00 Glucagon (Glucagen) 1 mg Q15M PRN IM DECREASED GLUCOSE; Start 01/15/17 at 19:00 Glucose (Glutose) 15 gm Q15M PRN BUCCAL DECREASED GLUCOSE Last administered on 01/21/17 19:53; Admin Dose 15 GM; Start 01/15/17 at 19:00 Diagnostic Test (Pha) (Accu-Chek) 1 ea 02 XX Last administered on 01/29/17 01: 36; Admin Dose 1 EA; Start 01/16/17 at 02:00 Clonidine (Catapres) 0.1 mg Q6H PRN PO BLOOD PRESSURE SBP>160 Last administered on 01/16/17 23:42; Admin Dose 0.1 MG; Start 01/15/17 at 20:30 Miscellaneous Information (Pending Santyl Order For Wound Care) This patient jean baptiste... PRN PRN XX WOUND CARE; Start 01/15/17 at 22:00 Collagenase (Santyl) 1 applic DAILY TOP Last administered on 02/01/17 11:27; Admin Dose 1 APPLIC; Start 01/16/17 at 21:00 Hydralazine HCl (Apresoline) 10 mg Q6 PRN IV ELEVATED BLOOD PRESSURE Last administered on 01/17/17 03:05; Admin Dose 10 MG; Start 01/17/17 at 03:00 Acetaminophen (Tylenol Supp) 650 mg Q6H PRN [place] FEVER GREATER THAN 100.6 Last administered on 01/17/17 07:26; Admin Dose 650 MG; Start 01/17/17 at 07:00 Mupirocin (Bactroban) 1 applic BID TOP Last administered on 02/01/17 11:28; Admin Dose 1 APPLIC; Start 01/17/17 at 11:00 Ferrous Sulfate (Slow Fe) 142 mg DAILY PO Last administered on 02/01/17 11:23 ; Admin Dose 142 MG; Start 01/18/17 at 14:30 Calcium Carbonate (Tums) 500 mg BID PO Last administered on 02/01/17 11:23; Admin Dose 500 MG; Start 01/18/17 at 14:30 Nystatin (Nystatin Powder) 1 applic BID TOP Last administered on 02/01/17 11: 27; Admin Dose 1 APPLIC; Start 01/18/17 at 21:00 Sodium Hypochlorite (Dakin'S (1/4 Strength)) 1 applic BID IRR Last administered on 01/29/17 09:52; Admin Dose 1 APPLIC; Start 01/18/17 at 21:00 Acetaminophen/ Hydrocodone Bitart ([place] (5/325)) 1 tab Q4H PRN PO PAIN LEVEL 4 -7 Last administered on 02/01/17 17:34; Admin Dose 1 TAB; Start 01/19/17 at 12: 00 Docusate Sodium (Colace) 100 mg BID PRN PO CONSTIPATION; Start 01/19/17 at 12: 00 Bisacodyl (Dulcolax Supp) 10 mg BID PRN [place] CONSTIPATION; Start 01/19/17 at 12: 00 Sodium Biphosphate/ Sodium Phosphate 133 ml 133 ml BID PRN [place] CONSTIPATION; Start 01/19/17 at 12:00 Meropenem/Sodium Chloride (Merrem 1 Gm/50 ml (Pmx)) 50 ml @ 100 mls/hr Q8 IVPB Last administered on 02/01/17 14:16; Admin Dose 100 MLS/HR; Start 01/19/17 at 15:00 Famotidine (Pepcid) 20 mg DAILY PO Last administered on 02/01/17 11:23; Admin Dose 20 MG; Start 01/21/17 at 09:00 Zolpidem Tartrate (Ambien) 10 mg HS PRN PO INSOMNIA Last administered on 23:25; Admin Dose 10 MG; Start 01/21/17 at 13:30 IV Flush (NS 10 ml) 10 ml PRN PRN IV IV PROTOCOL; Start 01/21/17 at 19:00 Insulin Human NPH (Humulin N) 10 unit BID@08,20 SC Last administered on 11:12; Admin Dose 10 UNIT; Start 01/22/17 at 08:00 Zinc Sulfate (Zinc Sulfate) 220 mg DAILY GTB Last administered on 02/01/17 11: 23; Admin Dose 220 MG; Start 01/23/17 at 15:30; Stop 02/05/17 at 09:01 Ascorbic Acid (Vitamin C) 500 mg BID GTB Last administered on 02/01/17 11:23; Admin Dose 500 MG; Start 01/23/17 at 21:00 Multivitamins (Multivitamin) 30 ml DAILY GTB Last administered on 02/01/17 11: 22; Admin Dose 30 ML; Start 01/23/17 at 17:00 Insulin Aspart (Novolog Insulin Pen) NOVOLOG *MODERATE* ALGORITHM Q4 SC Last administered on 02/01/17 17:33; Admin Dose 1 UNIT; Start 01/27/17 at 17:00 Neomycin/ Polymyxin/ Bacitracin (Neosporin Topical Oint) 1 applic BID TOP Last administered on 02/01/17 11:27; Admin Dose 1 APPLIC; Start 01/28/17 at 09:00 Hydrogen Peroxide (Hydrogen Peroxide) 1 applic BID TOP Last administered on 11:26; Admin Dose 1 APPLIC; Start 01/28/17 at 09:00 Apixaban 5 mg 5 mg BID PO Last administered on 02/01/17 11:23; Admin Dose 5 MG ; Start 01/28/17 at 14:00 Tigecycline/ Sodium Chloride (Tygacil/NS) 100 ml @ 200 mls/hr Q12 IVPB Last administered on 02/01/17 11:16; Admin Dose 200 MLS/HR; Start 01/29/17 at 21:00 Methadone HCl (Methadone) 20 mg AM PRN PO pain; Start 02/02/17 at 09:00; Status UNV Methadone HCl (Methadone) 10 mg QHS PRN PO pain; Start 02/01/17 at 18:30; Status UNV RIDGE MATTHEWS MD Feb 01, 2017 18:11
[2017-02-01] MEDS: MONTELUKAST 10 MG TAB PO SCH (20:33)
[2017-02-01] MEDS: METHADONE 10 MG TAB PO PRN (20:33)
[2017-02-01 20:38] VITALS: BP 160/51; RESP 18
[2017-02-02] MEDS: ZOLPIDEM 5 MG TAB PO PRN (00:11)
[2017-02-02] MEDS: INSULIN ASPART [NOVOLOG] 3 ML PEN SC SCH ×6 (01:00→21:00)
[2017-02-02] MEDS: ACCU-CHEK XX SCH (02:00)
[2017-02-02 03:20] VITALS: BP 123/46; RESP 16
[2017-02-02] MEDS: MEROPENEM 1 GM/50ML(PMX) 50 ML IVPB SCH ×3 (05:29→22:04)
[2017-02-02 06:59] LABS: BASOPHIL # 0.1 10^3/ul (0.0-0.1); BASOPHILS % 0.8 % (0.0-2.0); EOSINOPHILS # 0.7 10^3/ul (0.0-0.5); EOSINOPHILS % 5.2 % (0.0-7.0); HEMATOCRIT 27.2 % (37.0-47.0); HEMOGLOBIN 8.4 g/dl (12.0-16.0); LYMPHOCYTES % 31.2 % (15.0-51.0); MEAN CORPUSCULAR HEMOGLOBIN 27.1 pg (29.0-33.0); MEAN CORPUSCULAR HGB CONC 30.9 g/dl (32.0-37.0); MEAN CORPUSCULAR VOLUME 87.7 fl (82.0-101.0); MEAN PLATELET VOLUME 10.1 fl (7.4-10.4); MONOCYTES % 7.6 % (0.0-11.0); NEUTROPHILS % 54.4 % (39.0-77.0); PLATELET COUNT 327 10^3/UL (140-415); RED CELL DISTRIBUTION WIDTH 16.1 % (11.5-14.5); WHITE BLOOD COUNT 12.8 10^3/ul (4.8-10.8)
[2017-02-02 08:04] VITALS: BP 137/54; RESP 20
[2017-02-02] MEDS: TIGECYCLINE 50 MG in SOD CHLORIDE 0.9% 100 ML IVPB SCH ×2 (08:35→21:02)
[2017-02-02] MEDS: LOSARTAN 50 MG TAB PO SCH ×2 (08:36→20:51)
[2017-02-02] MEDS: CALCIUM CARBONATE 500 MG CHEW TAB PO SCH ×2 (08:37→20:50)
[2017-02-02] MEDS: ASCORBIC ACID 500 MG TAB GTB SCH ×2 (08:37→20:51)
[2017-02-02] MEDS: FAMOTIDINE 20 MG TAB PO SCH (08:37)
[2017-02-02] MEDS: APIXABAN 5 MG TABLET PO SCH ×2 (08:37→20:50)
[2017-02-02] MEDS: MULTIVITAMINS 30 ML CUP GTB SCH (08:37)
[2017-02-02] MEDS: ZINC SULFATE 220 MG CAP GTB SCH (08:37)
[2017-02-02] MEDS: FERROUS SULFATE (SR) 142 MG TAB PO SCH (08:37)
[2017-02-02] MEDS: ASPIRIN (EC) 81 MG TAB PO SCH (08:37)
[2017-02-02] MEDS: NPH, HUMAN INSULIN ISOPHANE 3ML VIAL SC SCH ×2 (08:41→20:50)
[2017-02-02] MEDS: SODIUM HYPOCHLORITE 0.125% 473 ML BTL IRR SCH ×2 (08:41→21:00)
[2017-02-02] MEDS: HYDROGEN PEROXIDE 118 ML TOP SCH ×2 (09:00→21:02)
[2017-02-02] MEDS: COLLAGENASE 30 GM TUBE TOP SCH (09:00)
[2017-02-02] MEDS: MUPIROCIN 2% 22 GM OINT TOP SCH ×2 (09:00→21:04)
[2017-02-02] MEDS: NEOMYC/POLYMYX/BACIT 30 GM OINT TOP SCH ×2 (09:00→21:03)
[2017-02-02] MEDS: NYSTATIN 30 GM POWDER BTL TOP SCH ×2 (09:00→21:03)
[2017-02-02] MEDS: HYDROCODONE/APAP (5/325) TAB PO PRN ×2 (09:40→19:04)
--- NOTE | 2017-02-02 12:24 | PN ---
Date/Time of Note Date/Time of Note DATE: 02/02/17 TIME: 12:21 Assessment/Plan VTE Prophylaxis VTE Prophylaxis Intervention: other Lines/Catheters IV Catheter Type (from Nrsg): PICC Line Central line still needed: Yes Urinary Cath still in place: Yes Reason Cath still needed: skin wounds contaminated by urine Assessment/Plan Assessment/Plan sacral stage IV decub, growing proteus and ecoli and s.aureus. on merrem/vanco , being treated by ID. 02/19 debrided and eval for osteo. called ortho- they report that nothing for them to do regarding fx or osteo of sacrum. wbc improving. -path report +osteo. ortho called and will not treat. - vre grew. now on tigecycline/merrem. -if wound does not improve, ID is recommending diverting colostomy. poor appetite- may be due to pain meds. for the next 24 hours will cont and then try to extend time between doses and also decrease dose. gtube in place. pt is allowed p.o. intake with aspiration precautions mentation better with less pain med. will open eyes and answer questions today. pain controlled with methadone. will consider if able to decrease the am dose mrsa nares on bactroban nares left heal osteo- pod treating htn- been steady dmII since gtube feeding, adjusting the insulin. paroxysmal afib on last admission- occurred during sepsis and intubation. pt changed to elliquis h/o left dvt of UE. now on elliquis Subjective 24 Hr Interval Summary Free Text/Dictation arousible and anwers questions. Exam/Review of Systems Vital Signs Vitals Vital Signs Date Time Temp Pulse Resp B/P Pulse Ox O2 Delivery O2 Flow Rate FiO2 02/02/17 08:04 98.1 76 20 137/54 100 02/01/17 20:00 Nasal Cannula 2.0 Intake and Output 02/01/17 02/01/17 02/02/17 15:00 23:00 07:00 Intake Total 100 ml 1070 ml 540 ml Output Total 650 ml 650 ml Balance 100 ml 420 ml -110 ml Results Result Diagram: 02/02/17 0540 02/01/17 0440 Results 24 hrs Laboratory Tests Test 02/01/17 14:17 02/01/17 17:32 02/01/17 20:46 02/02/17 01:20 Bedside Glucose 174 163 176 149 Test 02/02/17 05:28 02/02/17 05:40 02/02/17 08:09 02/02/17 11:51 Bedside Glucose 99 150 132 White Blood Count 12.8 H Red Blood Count 3.10 L Hemoglobin 8.4 L Hematocrit 27.2 L Mean Corpuscular Volume 87.7 Mean Corpuscular Hemoglobin 27.1 L Mean Corpuscular Hemoglobin Concent 30.9 L Red Cell Distribution Width 16.1 H Platelet Count 327 Mean Platelet Volume 10.1 Neutrophils % 54.4 Lymphocytes % 31.2 Monocytes % 7.6 Eosinophils % 5.2 Basophils % 0.8 Nucleated Red Blood Cells % 0.0 Neutrophils # (Manual) 7.0 Lymphocytes # 4.0 H Monocytes # 1.0 H Eosinophils # 0.7 H Basophils # 0.1 Nucleated Red Blood Cells # 0.0 Erythrocyte Sedimentation Rate 86 H Medications Medications Current Medications Ondansetron HCl (Zofran Inj) 4 mg Q6H PRN IV NAUSEA AND/OR VOMITING; Start at 16:30 Acetaminophen (Tylenol Tab) 650 mg Q6H PRN PO PAIN LEVEL 1-3 OR FEVER Last administered on 01/17/17 06:40; Admin Dose 650 MG; Start 01/15/17 at 16:30 Magnesium Hydroxide (Milk Of Mag) 30 ml DAILY PRN PO CONSTIPATION Last administered on 01/24/17 09:15; Admin Dose 30 ML; Start 01/15/17 at 16:30 Aspirin (Halfprin) 81 mg DAILY PO Last administered on 02/02/17 08:37; Admin Dose 81 MG; Start 01/16/17 at 09:00 Losartan Potassium (Cozaar) 100 mg BID PO Last administered on 02/02/17 08:36 ; Admin Dose 100 MG; Start 01/15/17 at 21:00 Montelukast Sodium (Singulair) 10 mg QHS PO Last administered on 02/01/17 20: 33; Admin Dose 10 MG; Start 01/15/17 at 21:00 IV Flush (NS 10 ml) 10 ml PRN PRN IV IV PROTOCOL; Start 01/15/17 at 18:30 Miscellaneous Information 1 ea NOTE XX ; Start 01/15/17 at 19:00 Glucose (Glutose) 15 gm Q15M PRN PO DECREASED GLUCOSE; Start 01/15/17 at 19:00 Glucose (Glutose) 22.5 gm Q15M PRN PO DECREASED GLUCOSE; Start 01/15/17 at 19: 00 Dextrose (D50w Syringe) 25 ml Q15M PRN IV DECREASED GLUCOSE Last administered on 01/21/17 20:37; Admin Dose 25 ML; Start 01/15/17 at 19:00 Dextrose (D50w Syringe) 50 ml Q15M PRN IV DECREASED GLUCOSE; Start 01/15/17 at 19:00 Glucagon (Glucagen) 1 mg Q15M PRN IM DECREASED GLUCOSE; Start 01/15/17 at 19:00 Glucose (Glutose) 15 gm Q15M PRN BUCCAL DECREASED GLUCOSE Last administered on 01/21/17 19:53; Admin Dose 15 GM; Start 01/15/17 at 19:00 Diagnostic Test (Pha) (Accu-Chek) 1 ea 02 XX Last administered on 01/29/17 01: 36; Admin Dose 1 EA; Start 01/16/17 at 02:00 Clonidine (Catapres) 0.1 mg Q6H PRN PO BLOOD PRESSURE SBP>160 Last administered on 01/16/17 23:42; Admin Dose 0.1 MG; Start 01/15/17 at 20:30 Miscellaneous Information (Pending Santyl Order For Wound Care) This patient jean baptiste... PRN PRN XX WOUND CARE; Start 01/15/17 at 22:00 Collagenase (Santyl) 1 applic DAILY TOP Last administered on 02/02/17 09:00; Admin Dose 1 APPLIC; Start 01/16/17 at 21:00 Hydralazine HCl (Apresoline) 10 mg Q6 PRN IV ELEVATED BLOOD PRESSURE Last administered on 01/17/17 03:05; Admin Dose 10 MG; Start 01/17/17 at 03:00 Acetaminophen (Tylenol Supp) 650 mg Q6H PRN SD FEVER GREATER THAN 100.6 Last administered on 01/17/17 07:26; Admin Dose 650 MG; Start 01/17/17 at 07:00 Mupirocin (Bactroban) 1 applic BID TOP Last administered on 02/02/17 09:00; Admin Dose 1 APPLIC; Start 01/17/17 at 11:00 Ferrous Sulfate (Slow Fe) 142 mg DAILY PO Last administered on 02/02/17 08:37 ; Admin Dose 142 MG; Start 01/18/17 at 14:30 Calcium Carbonate (Tums) 500 mg BID PO Last administered on 02/02/17 08:37; Admin Dose 500 MG; Start 01/18/17 at 14:30 Nystatin (Nystatin Powder) 1 applic BID TOP Last administered on 02/02/17 09: 00; Admin Dose 1 APPLIC; Start 01/18/17 at 21:00 Sodium Hypochlorite (Dakin'S (1/4 Strength)) 1 applic BID IRR Last administered on 02/02/17 08:41; Admin Dose 1 APPLIC; Start 01/18/17 at 21:00 Acetaminophen/ Hydrocodone Bitart ([place] (5/325)) 1 tab Q4H PRN PO PAIN LEVEL 4 -7 Last administered on 02/02/17 09:40; Admin Dose 1 TAB; Start 01/19/17 at 12: 00 Docusate Sodium (Colace) 100 mg BID PRN PO CONSTIPATION; Start 01/19/17 at 12: 00 Bisacodyl (Dulcolax Supp) 10 mg BID PRN [place] CONSTIPATION; Start 01/19/17 at 12: 00 Sodium Biphosphate/ Sodium Phosphate 133 ml 133 ml BID PRN SD CONSTIPATION; Start 01/19/17 at 12:00 Meropenem/Sodium Chloride (Merrem 1 Gm/50 ml (Pmx)) 50 ml @ 100 mls/hr Q8 IVPB Last administered on 02/02/17 05:29; Admin Dose 100 MLS/HR; Start 01/19/17 at 15:00 Famotidine (Pepcid) 20 mg DAILY PO Last administered on 02/02/17 08:37; Admin Dose 20 MG; Start 01/21/17 at 09:00 Zolpidem Tartrate (Ambien) 10 mg HS PRN PO INSOMNIA Last administered on 00:11; Admin Dose 10 MG; Start 01/21/17 at 13:30 IV Flush (NS 10 ml) 10 ml PRN PRN IV IV PROTOCOL; Start 01/21/17 at 19:00 Insulin Human NPH (Humulin N) 10 unit BID@08,20 SC Last administered on 08:41; Admin Dose 10 UNIT; Start 01/22/17 at 08:00 Zinc Sulfate (Zinc Sulfate) 220 mg DAILY GTB Last administered on 02/02/17 08: 37; Admin Dose 220 MG; Start 01/23/17 at 15:30; Stop 02/05/17 at 09:01 Ascorbic Acid (Vitamin C) 500 mg BID GTB Last administered on 02/02/17 08:37; Admin Dose 500 MG; Start 01/23/17 at 21:00 Multivitamins (Multivitamin) 30 ml DAILY GTB Last administered on 02/02/17 08: 37; Admin Dose 30 ML; Start 01/23/17 at 17:00 Insulin Aspart (Novolog Insulin Pen) NOVOLOG *MODERATE* ALGORITHM Q4 SC Last administered on 02/02/17 09:04; Admin Dose 2 UNIT; Start 01/27/17 at 17:00 Neomycin/ Polymyxin/ Bacitracin (Neosporin Topical Oint) 1 applic BID TOP Last administered on 02/02/17 09:00; Admin Dose 1 APPLIC; Start 01/28/17 at 09:00 Hydrogen Peroxide (Hydrogen Peroxide) 1 applic BID TOP Last administered on 09:00; Admin Dose 1 APPLIC; Start 01/28/17 at 09:00 Apixaban 5 mg 5 mg BID PO Last administered on 02/02/17 08:37; Admin Dose 5 MG ; Start 01/28/17 at 14:00 Tigecycline/ Sodium Chloride (Tygacil/NS) 100 ml @ 200 mls/hr Q12 IVPB Last administered on 02/02/17 08:35; Admin Dose 200 MLS/HR; Start 01/29/17 at 21:00 Methadone HCl (Methadone) 20 mg AM PRN PO pain; Start 02/02/17 at 09:00 Methadone HCl (Methadone) 10 mg QHS PRN PO pain Last administered on 02/01/17 20:33; Admin Dose 10 MG; Start 02/01/17 at 18:30 RIDGE MATTHEWS MD Feb 02, 2017 12:24
[2017-02-02] MEDS: METHADONE 10 MG TAB PO PRN ×2 (12:25→20:52)
[2017-02-02 14:34] VITALS: BP 123/56; RESP 16
--- NOTE | 2017-02-02 15:37 | CONS ---
Date/Time of Note Date/Time of Note DATE: 02/02/17 TIME: 15:35 Assessment/Plan Assessment/Plan Additional Assessment/Plan Sacral decubiti DVT of left upper extremity History of paroxysmal atrial fibrillation Preserved ejection fraction Peripheral arterial disease -Hemoglobin slightly better, continue to follow trend given patient on Eliquis. Blood pressure trend overall remains stable. No new cardiac orders at the current time. Consultation Date/Type/Reason Admit Date/Time Jan 15, 2017 at 14:33 Initial Consult Date 01/19/17 Type of Consultation: cv Referring Provider: RIDGE MATTHEWS MD 24 HR Interval Summary Free Text/Dictation pt seen and examined Exam/Review of Systems Vital Signs Vitals Vital Signs Date Time Temp Pulse Resp B/P Pulse Ox O2 Delivery O2 Flow Rate FiO2 02/02/17 14:34 97.2 77 16 123/56 95 02/01/17 20:00 Nasal Cannula 2.0 Intake and Output 02/01/17 02/01/17 02/02/17 15:00 23:00 07:00 Intake Total 100 ml 1070 ml 540 ml Output Total 650 ml 650 ml Balance 100 ml 420 ml -110 ml Exam sleeping but arrousable, nad Head: normocephalic Respiratory: other (course bs, no wheeze) Cardiovascular: other (s1s2), regular rate and rhythm Gastrointestinal: bowel sounds, non-tender, soft Extremities: edema (trace) Results Result Diagram: 02/02/17 0540 02/01/17 0440 Results 24 hrs Laboratory Tests Test 02/01/17 17:32 02/01/17 20:46 02/02/17 01:20 02/02/17 05:28 Bedside Glucose 163 176 149 99 Test 02/02/17 05:40 02/02/17 08:09 02/02/17 11:51 White Blood Count 12.8 H Red Blood Count 3.10 L Hemoglobin 8.4 L Hematocrit 27.2 L Mean Corpuscular Volume 87.7 Mean Corpuscular Hemoglobin 27.1 L Mean Corpuscular Hemoglobin Concent 30.9 L Red Cell Distribution Width 16.1 H Platelet Count 327 Mean Platelet Volume 10.1 Neutrophils % 54.4 Lymphocytes % 31.2 Monocytes % 7.6 Eosinophils % 5.2 Basophils % 0.8 Nucleated Red Blood Cells % 0.0 Neutrophils # (Manual) 7.0 Lymphocytes # 4.0 H Monocytes # 1.0 H Eosinophils # 0.7 H Basophils # 0.1 Nucleated Red Blood Cells # 0.0 Erythrocyte Sedimentation Rate 86 H Bedside Glucose 150 132 Medications Medications Current Medications Ondansetron HCl (Zofran Inj) 4 mg Q6H PRN IV NAUSEA AND/OR VOMITING; Start at 16:30 Acetaminophen (Tylenol Tab) 650 mg Q6H PRN PO PAIN LEVEL 1-3 OR FEVER Last administered on 01/17/17 06:40; Admin Dose 650 MG; Start 01/15/17 at 16:30 Magnesium Hydroxide (Milk Of Mag) 30 ml DAILY PRN PO CONSTIPATION Last administered on 01/24/17 09:15; Admin Dose 30 ML; Start 01/15/17 at 16:30 Aspirin (Halfprin) 81 mg DAILY PO Last administered on 02/02/17 08:37; Admin Dose 81 MG; Start 01/16/17 at 09:00 Losartan Potassium (Cozaar) 100 mg BID PO Last administered on 02/02/17 08:36 ; Admin Dose 100 MG; Start 01/15/17 at 21:00 Montelukast Sodium (Singulair) 10 mg QHS PO Last administered on 02/01/17 20: 33; Admin Dose 10 MG; Start 01/15/17 at 21:00 IV Flush (NS 10 ml) 10 ml PRN PRN IV IV PROTOCOL; Start 01/15/17 at 18:30 Miscellaneous Information 1 ea NOTE XX ; Start 01/15/17 at 19:00 Glucose (Glutose) 15 gm Q15M PRN PO DECREASED GLUCOSE; Start 01/15/17 at 19:00 Glucose (Glutose) 22.5 gm Q15M PRN PO DECREASED GLUCOSE; Start 01/15/17 at 19: 00 Dextrose (D50w Syringe) 25 ml Q15M PRN IV DECREASED GLUCOSE Last administered on 01/21/17 20:37; Admin Dose 25 ML; Start 01/15/17 at 19:00 Dextrose (D50w Syringe) 50 ml Q15M PRN IV DECREASED GLUCOSE; Start 01/15/17 at 19:00 Glucagon (Glucagen) 1 mg Q15M PRN IM DECREASED GLUCOSE; Start 01/15/17 at 19:00 Glucose (Glutose) 15 gm Q15M PRN BUCCAL DECREASED GLUCOSE Last administered on 01/21/17 19:53; Admin Dose 15 GM; Start 01/15/17 at 19:00 Diagnostic Test (Pha) (Accu-Chek) 1 ea 02 XX Last administered on 01/29/17 01: 36; Admin Dose 1 EA; Start 01/16/17 at 02:00 Clonidine (Catapres) 0.1 mg Q6H PRN PO BLOOD PRESSURE SBP>160 Last administered on 01/16/17 23:42; Admin Dose 0.1 MG; Start 01/15/17 at 20:30 Miscellaneous Information (Pending Santyl Order For Wound Care) This patient jean baptiste... PRN PRN XX WOUND CARE; Start 01/15/17 at 22:00 Collagenase (Santyl) 1 applic DAILY TOP Last administered on 02/02/17 09:00; Admin Dose 1 APPLIC; Start 01/16/17 at 21:00 Hydralazine HCl (Apresoline) 10 mg Q6 PRN IV ELEVATED BLOOD PRESSURE Last administered on 01/17/17 03:05; Admin Dose 10 MG; Start 01/17/17 at 03:00 Acetaminophen (Tylenol Supp) 650 mg Q6H PRN [place] FEVER GREATER THAN 100.6 Last administered on 01/17/17 07:26; Admin Dose 650 MG; Start 01/17/17 at 07:00 Mupirocin (Bactroban) 1 applic BID TOP Last administered on 02/02/17 09:00; Admin Dose 1 APPLIC; Start 01/17/17 at 11:00 Ferrous Sulfate (Slow Fe) 142 mg DAILY PO Last administered on 02/02/17 08:37 ; Admin Dose 142 MG; Start 01/18/17 at 14:30 Calcium Carbonate (Tums) 500 mg BID PO Last administered on 02/02/17 08:37; Admin Dose 500 MG; Start 01/18/17 at 14:30 Nystatin (Nystatin Powder) 1 applic BID TOP Last administered on 02/02/17 09: 00; Admin Dose 1 APPLIC; Start 01/18/17 at 21:00 Sodium Hypochlorite (Dakin'S (1/4 Strength)) 1 applic BID IRR Last administered on 02/02/17 08:41; Admin Dose 1 APPLIC; Start 01/18/17 at 21:00 Acetaminophen/ Hydrocodone Bitart ([place] (5/325)) 1 tab Q4H PRN PO PAIN LEVEL 4 -7 Last administered on 02/02/17 09:40; Admin Dose 1 TAB; Start 01/19/17 at 12: 00 Docusate Sodium (Colace) 100 mg BID PRN PO CONSTIPATION; Start 01/19/17 at 12: 00 Bisacodyl (Dulcolax Supp) 10 mg BID PRN [place] CONSTIPATION; Start 01/19/17 at 12: 00 Sodium Biphosphate/ Sodium Phosphate 133 ml 133 ml BID PRN [place] CONSTIPATION; Start 01/19/17 at 12:00 Meropenem/Sodium Chloride (Merrem 1 Gm/50 ml (Pmx)) 50 ml @ 100 mls/hr Q8 IVPB Last administered on 02/02/17 13:41; Admin Dose 100 MLS/HR; Start 01/19/17 at 15:00 Famotidine (Pepcid) 20 mg DAILY PO Last administered on 02/02/17 08:37; Admin Dose 20 MG; Start 01/21/17 at 09:00 Zolpidem Tartrate (Ambien) 10 mg HS PRN PO INSOMNIA Last administered on 00:11; Admin Dose 10 MG; Start 01/21/17 at 13:30 IV Flush (NS 10 ml) 10 ml PRN PRN IV IV PROTOCOL; Start 01/21/17 at 19:00 Insulin Human NPH (Humulin N) 10 unit BID@08,20 SC Last administered on 08:41; Admin Dose 10 UNIT; Start 01/22/17 at 08:00 Zinc Sulfate (Zinc Sulfate) 220 mg DAILY GTB Last administered on 02/02/17 08: 37; Admin Dose 220 MG; Start 01/23/17 at 15:30; Stop 02/05/17 at 09:01 Ascorbic Acid (Vitamin C) 500 mg BID GTB Last administered on 02/02/17 08:37; Admin Dose 500 MG; Start 01/23/17 at 21:00 Multivitamins (Multivitamin) 30 ml DAILY GTB Last administered on 02/02/17 08: 37; Admin Dose 30 ML; Start 01/23/17 at 17:00 Insulin Aspart (Novolog Insulin Pen) NOVOLOG *MODERATE* ALGORITHM Q4 SC Last administered on 02/02/17 09:04; Admin Dose 2 UNIT; Start 01/27/17 at 17:00 Neomycin/ Polymyxin/ Bacitracin (Neosporin Topical Oint) 1 applic BID TOP Last administered on 02/02/17 09:00; Admin Dose 1 APPLIC; Start 01/28/17 at 09:00 Hydrogen Peroxide (Hydrogen Peroxide) 1 applic BID TOP Last administered on 09:00; Admin Dose 1 APPLIC; Start 01/28/17 at 09:00 Apixaban 5 mg 5 mg BID PO Last administered on 02/02/17 08:37; Admin Dose 5 MG ; Start 01/28/17 at 14:00 Tigecycline/ Sodium Chloride (Tygacil/NS) 100 ml @ 200 mls/hr Q12 IVPB Last administered on 02/02/17 08:35; Admin Dose 200 MLS/HR; Start 01/29/17 at 21:00 Methadone HCl (Methadone) 20 mg AM PRN PO pain Last administered on 02/02/17 12:25; Admin Dose 20 MG; Start 02/02/17 at 09:00 Methadone HCl (Methadone) 10 mg QHS PRN PO pain Last administered on 02/01/17 20:33; Admin Dose 10 MG; Start 02/01/17 at 18:30 Tucker Jacome DO Feb 02, 2017 15:37
[2017-02-02 19:50] VITALS: BP 134/51; RESP 16
[2017-02-02] MEDS ORDERED: FLUCONAZOLE 200 MG/NS (PMX) 100 ML IVPB ONE (20:30)
[2017-02-02] MEDS: MONTELUKAST 10 MG TAB PO SCH (20:51)
[2017-02-03] MEDS: INSULIN ASPART [NOVOLOG] 3 ML PEN SC SCH ×6 (01:00→20:47)
[2017-02-03] MEDS: ACCU-CHEK XX SCH (01:31)
[2017-02-03 02:12] VITALS: BP 127/46; RESP 16
[2017-02-03 02:45] VITALS: BP 131/55
[2017-02-03 05:35] LABS: BASOPHIL # 0.1 10^3/ul (0.0-0.1); BASOPHILS % 0.7 % (0.0-2.0); EOSINOPHILS # 0.6 10^3/ul (0.0-0.5); EOSINOPHILS % 5.6 % (0.0-7.0); HEMATOCRIT 31.5 % (37.0-47.0); LYMPHOCYTES # 3.5 10^3/ul (0.8-2.9); LYMPHOCYTES % 30.8 % (15.0-51.0); MEAN CORPUSCULAR HEMOGLOBIN 27.9 pg (29.0-33.0); MEAN CORPUSCULAR HGB CONC 31.7 g/dl (32.0-37.0); MEAN PLATELET VOLUME 10.3 fl (7.4-10.4); MONOCYTE # 0.9 10^3/ul (0.3-0.9); MONOCYTES % 7.8 % (0.0-11.0); NEUTROPHILS % 54.4 % (39.0-77.0); PLATELET COUNT 282 10^3/UL (140-415); RED BLOOD COUNT 3.58 10^6/ul (4.20-5.40); RED CELL DISTRIBUTION WIDTH 15.9 % (11.5-14.5); WHITE BLOOD COUNT 11.2 10^3/ul (4.8-10.8)
[2017-02-03 05:53] LABS: ALBUMIN 2.1 g/dl (3.3-4.9); ALBUMIN/GLOBULIN RATIO 0.56; BILIRUBIN,INDIRECT 0.5 mg/dl (0-1.1); BILIRUBIN,TOTAL 0.5 mg/dl (0.2-1.3); CALCIUM 8.7 mg/dl (8.4-10.2); CREATININE 0.56 mg/dl (0.44-1.00); POTASSIUM 4.1 mmol/L (3.5-5.1); TOTAL PROTEIN 5.8 g/dl (6.1-8.1)
[2017-02-03] MEDS: MEROPENEM 1 GM/50ML(PMX) 50 ML IVPB SCH ×3 (05:56→22:46)
[2017-02-03 08:07] VITALS: BP 170/64; RESP 15
[2017-02-03] MEDS: FAMOTIDINE 20 MG TAB PO SCH (08:22)
[2017-02-03] MEDS: ASCORBIC ACID 500 MG TAB GTB SCH ×2 (08:22→20:42)
[2017-02-03] MEDS: ZINC SULFATE 220 MG CAP GTB SCH (08:22)
[2017-02-03] MEDS: CALCIUM CARBONATE 500 MG CHEW TAB PO SCH ×2 (08:22→21:00)
[2017-02-03] MEDS: FERROUS SULFATE (SR) 142 MG TAB PO SCH (08:22)
[2017-02-03] MEDS: APIXABAN 5 MG TABLET PO SCH ×2 (08:22→20:42)
[2017-02-03] MEDS: METHADONE 10 MG TAB PO PRN ×2 (08:23→20:42)
[2017-02-03] MEDS: MULTIVITAMINS 30 ML CUP GTB SCH (08:23)
[2017-02-03] MEDS: ASPIRIN (EC) 81 MG TAB PO SCH (08:23)
[2017-02-03] MEDS: LOSARTAN 50 MG TAB PO SCH ×2 (08:24→20:43)
[2017-02-03] MEDS: HYDROGEN PEROXIDE 118 ML TOP SCH ×2 (08:28→20:49)
[2017-02-03] MEDS: NYSTATIN 30 GM POWDER BTL TOP SCH ×2 (08:29→20:49)
[2017-02-03] MEDS: COLLAGENASE 30 GM TUBE TOP SCH (08:30)
[2017-02-03] MEDS: NPH, HUMAN INSULIN ISOPHANE 3ML VIAL SC SCH ×2 (09:37→20:46)
[2017-02-03] MEDS: TIGECYCLINE 50 MG in SOD CHLORIDE 0.9% 100 ML IVPB SCH ×2 (09:39→22:09)
--- NOTE | 2017-02-03 13:15 | PQ ---
Date/Time of Note Date/Time of Note DATE: 02/03/17 TIME: 13:05 Physician Query Documentation Clarification Dear Dr. Woodard, A review of the medical record found a need for documentation clarification. Urine Culture + [place] Glibrata >100,000 01/15 01/24 01/26 pt on antibiotics Please clarify the clinical significance (if any) of the above result. To facilitate accurate and complete coding, please todd ( x ) the suspected diagnosis that apply: ( ) UTI dt [place] ( x ) Clinically insignificant lab result ( ) Others Please provide your response by clicking edit document, making your choice ( x ), click ok/save and finally click sign. You may also document your response on your progress notes. Thank you for your time. With appreciation, Durga Churchill RN, BSN, CCS, CCDS Clinical Professor Of Oceanography Health Information Management, [employer] and Coding Services [phone] Room # 15[address] - [address]~ [id number] DURGA [place]UR[place]ILL Feb 03, 2017 13:15 ANTHONY WOODARD MD Feb 04, 2017 06:59
[2017-02-03 15:07] VITALS: BP 179/66; RESP 19
--- NOTE | 2017-02-03 17:17 | PN ---
Date/Time of Note Date/Time of Note DATE: 02/03/17 TIME: 17:10 Assessment/Plan VTE Prophylaxis VTE Prophylaxis Intervention: other Lines/Catheters IV Catheter Type (from Nrsg): PICC Line Central line still needed: Yes Urinary Cath still in place: Yes Reason Cath still needed: skin wounds contaminated by urine Assessment/Plan Assessment/Plan sacral stage IV decub, growing proteus and ecoli and s.aureus. on merrem/vanco , being treated by ID. 02/19 debrided and eval for osteo. called ortho- they report that nothing for them to do regarding fx or osteo of sacrum. wbc improving. -path report +osteo. ortho called and will not treat. - vre grew. now on tigecycline/merrem. -if wound does not improve, ID is recommending diverting colostomy.---wound is mildly better. multi bugs growing. ID deciding if any changes of med. wbc has cont to improve. poor appetite- may be due to pain meds. for the next 24 hours will cont and then try to extend time between doses and also decrease dose. gtube in place. pt is allowed p.o. intake with aspiration precautions mentation better with less pain med. will open eyes and answer questions today. pain controlled with methadone. 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 may be due to lowering pain med. will watch tomorrow. dmII since gtube feeding, adjusting the insulin. doing well accu check stable. paroxysmal afib on last admission- occurred during sepsis and intubation. pt changed to elliquis. stable h/o left dvt of UE. now on elliquis. cont til dvt resolves. Subjective 24 Hr Interval Summary Free Text/Dictation sacral wound reported mild improved. wbc lower. family says she talks and is awake. Exam/Review of Systems Vital Signs Vitals Vital Signs Date Time Temp Pulse Resp B/P Pulse Ox O2 Delivery O2 Flow Rate FiO2 02/03/17 15:07 98.4 79 19 179/66 100 02/02/17 20:00 Nasal Cannula 2.0 Intake and Output 02/02/17 02/02/17 02/03/17 15:00 23:00 07:00 Intake Total 150 ml 150 ml 490 ml Output Total 800 ml 900 ml Balance 150 ml -650 ml -410 ml Results Result Diagram: 02/03/17 0500 02/03/17 0439 Results 24 hrs Laboratory Tests Test 02/02/17 20:41 02/03/17 00:53 02/03/17 04:31 02/03/17 04:39 Bedside Glucose 152 173 151 Sodium Level 137 Potassium Level 4.1 Chloride Level 102 Carbon Dioxide Level 34 H Anion Gap 5 L Blood Urea Nitrogen 27 H Creatinine 0.56 Glucose Level 138 Calcium Level 8.7 Total Bilirubin 0.5 Direct Bilirubin 0.00 Indirect Bilirubin 0.5 Aspartate Amino Transf (AST/SGOT) 20 Alanine Aminotransferase (ALT/SGPT) 25 Alkaline Phosphatase 146 H Total Protein 5.8 L Albumin 2.1 L Globulin 3.70 H Albumin/Globulin Ratio 0.56 Test 02/03/17 05:00 02/03/17 07:45 02/03/17 11:58 White Blood Count 11.2 H Red Blood Count 3.58 L Hemoglobin 10.0 L Hematocrit 31.5 L Mean Corpuscular Volume 88.0 Mean Corpuscular Hemoglobin 27.9 L Mean Corpuscular Hemoglobin Concent 31.7 L Red Cell Distribution Width 15.9 H Platelet Count 282 Mean Platelet Volume 10.3 Neutrophils % 54.4 Lymphocytes % 30.8 Monocytes % 7.8 Eosinophils % 5.6 Basophils % 0.7 Nucleated Red Blood Cells % 0.0 Neutrophils # (Manual) 6.1 Lymphocytes # 3.5 H Monocytes # 0.9 Eosinophils # 0.6 H Basophils # 0.1 Nucleated Red Blood Cells # 0.0 Bedside Glucose 144 198 Medications Medications Current Medications Ondansetron HCl (Zofran Inj) 4 mg Q6H PRN IV NAUSEA AND/OR VOMITING; Start at 16:30 Acetaminophen (Tylenol Tab) 650 mg Q6H PRN PO PAIN LEVEL 1-3 OR FEVER Last administered on 01/17/17 06:40; Admin Dose 650 MG; Start 01/15/17 at 16:30 Magnesium Hydroxide (Milk Of Mag) 30 ml DAILY PRN PO CONSTIPATION Last administered on 01/24/17 09:15; Admin Dose 30 ML; Start 01/15/17 at 16:30 Aspirin (Halfprin) 81 mg DAILY PO Last administered on 02/03/17 08:23; Admin Dose 81 MG; Start 01/16/17 at 09:00 Losartan Potassium (Cozaar) 100 mg BID PO Last administered on 02/03/17 08:24 ; Admin Dose 100 MG; Start 01/15/17 at 21:00 Montelukast Sodium (Singulair) 10 mg QHS PO Last administered on 02/02/17 20: 51; Admin Dose 10 MG; Start 01/15/17 at 21:00 IV Flush (NS 10 ml) 10 ml PRN PRN IV IV PROTOCOL; Start 01/15/17 at 18:30 Miscellaneous Information 1 ea NOTE XX ; Start 01/15/17 at 19:00 Glucose (Glutose) 15 gm Q15M PRN PO DECREASED GLUCOSE; Start 01/15/17 at 19:00 Glucose (Glutose) 22.5 gm Q15M PRN PO DECREASED GLUCOSE; Start 01/15/17 at 19: 00 Dextrose (D50w Syringe) 25 ml Q15M PRN IV DECREASED GLUCOSE Last administered on 01/21/17 20:37; Admin Dose 25 ML; Start 01/15/17 at 19:00 Dextrose (D50w Syringe) 50 ml Q15M PRN IV DECREASED GLUCOSE; Start 01/15/17 at 19:00 Glucagon (Glucagen) 1 mg Q15M PRN IM DECREASED GLUCOSE; Start 01/15/17 at 19:00 Glucose (Glutose) 15 gm Q15M PRN BUCCAL DECREASED GLUCOSE Last administered on 01/21/17 19:53; Admin Dose 15 GM; Start 01/15/17 at 19:00 Diagnostic Test (Pha) (Accu-Chek) 1 ea 02 XX Last administered on 01/29/17 01: 36; Admin Dose 1 EA; Start 01/16/17 at 02:00 Clonidine (Catapres) 0.1 mg Q6H PRN PO BLOOD PRESSURE SBP>160 Last administered on 02/03/17 15:13; Admin Dose 0.1 MG; Start 01/15/17 at 20:30 Miscellaneous Information (Pending Santyl Order For Wound Care) This patient jean baptiste... PRN PRN XX WOUND CARE; Start 01/15/17 at 22:00 Collagenase (Santyl) 1 applic DAILY TOP Last administered on 02/03/17 08:30; Admin Dose 1 APPLIC; Start 01/16/17 at 21:00 Hydralazine HCl (Apresoline) 10 mg Q6 PRN IV ELEVATED BLOOD PRESSURE Last administered on 01/17/17 03:05; Admin Dose 10 MG; Start 01/17/17 at 03:00 Acetaminophen (Tylenol Supp) 650 mg Q6H PRN [place] FEVER GREATER THAN 100.6 Last administered on 01/17/17 07:26; Admin Dose 650 MG; Start 01/17/17 at 07:00 Mupirocin (Bactroban) 1 applic BID TOP Last administered on 02/02/17 21:04; Admin Dose 1 APPLIC; Start 01/17/17 at 11:00 Ferrous Sulfate (Slow Fe) 142 mg DAILY PO Last administered on 02/03/17 08:22 ; Admin Dose 142 MG; Start 01/18/17 at 14:30 Calcium Carbonate (Tums) 500 mg BID PO Last administered on 02/03/17 08:22; Admin Dose 500 MG; Start 01/18/17 at 14:30 Nystatin (Nystatin Powder) 1 applic BID TOP Last administered on 02/03/17 08: 29; Admin Dose 1 APPLIC; Start 01/18/17 at 21:00 Acetaminophen/ Hydrocodone Bitart ([place] (5/325)) 1 tab Q4H PRN PO PAIN LEVEL 4 -7 Last administered on 02/02/17 19:04; Admin Dose 1 TAB; Start 01/19/17 at 12: 00 Docusate Sodium (Colace) 100 mg BID PRN PO CONSTIPATION; Start 01/19/17 at 12: 00 Bisacodyl (Dulcolax Supp) 10 mg BID PRN [place] CONSTIPATION; Start 01/19/17 at 12: 00 Sodium Biphosphate/ Sodium Phosphate 133 ml 133 ml BID PRN [place] CONSTIPATION; Start 01/19/17 at 12:00 Meropenem/Sodium Chloride (Merrem 1 Gm/50 ml (Pmx)) 50 ml @ 100 mls/hr Q8 IVPB Last administered on 02/03/17 15:12; Admin Dose 100 MLS/HR; Start 01/19/17 at 15:00 Famotidine (Pepcid) 20 mg DAILY PO Last administered on 02/03/17 08:22; Admin Dose 20 MG; Start 01/21/17 at 09:00 Zolpidem Tartrate (Ambien) 10 mg HS PRN PO INSOMNIA Last administered on 00:11; Admin Dose 10 MG; Start 01/21/17 at 13:30 IV Flush (NS 10 ml) 10 ml PRN PRN IV IV PROTOCOL; Start 01/21/17 at 19:00 Insulin Human NPH (Humulin N) 10 unit BID@08,20 SC Last administered on 09:37; Admin Dose 10 UNIT; Start 01/22/17 at 08:00 Zinc Sulfate (Zinc Sulfate) 220 mg DAILY GTB Last administered on 02/03/17 08: 22; Admin Dose 220 MG; Start 01/23/17 at 15:30; Stop 02/05/17 at 09:01 Ascorbic Acid (Vitamin C) 500 mg BID GTB Last administered on 02/03/17 08:22; Admin Dose 500 MG; Start 01/23/17 at 21:00 Multivitamins (Multivitamin) 30 ml DAILY GTB Last administered on 02/03/17 08: 23; Admin Dose 30 ML; Start 01/23/17 at 17:00 Insulin Aspart (Novolog Insulin Pen) NOVOLOG *MODERATE* ALGORITHM Q4 SC Last administered on 02/03/17 12:01; Admin Dose 4 UNIT; Start 01/27/17 at 17:00 Neomycin/ Polymyxin/ Bacitracin (Neosporin Topical Oint) 1 applic BID TOP Last administered on 02/02/17 21:03; Admin Dose 1 APPLIC; Start 01/28/17 at 09:00 Hydrogen Peroxide (Hydrogen Peroxide) 1 applic BID TOP Last administered on 08:28; Admin Dose 1 APPLIC; Start 01/28/17 at 09:00 Apixaban 5 mg 5 mg BID PO Last administered on 02/03/17 08:22; Admin Dose 5 MG ; Start 01/28/17 at 14:00 Tigecycline/ Sodium Chloride (Tygacil/NS) 100 ml @ 200 mls/hr Q12 IVPB Last administered on 02/03/17 09:39; Admin Dose 200 MLS/HR; Start 01/29/17 at 21:00 Methadone HCl (Methadone) 20 mg AM PRN PO pain Last administered on 02/03/17 08:23; Admin Dose 20 MG; Start 02/02/17 at 09:00 Methadone HCl 10 mg 10 mg QHS PRN PO pain Last administered on 02/02/17t 20:52 ; Admin Dose 10 MG; Start 02/01/17 at 18:30 Fluconazole/ Sodium Chloride (Diflucan 100 Mg/ NS (Pmx)) 50 ml @ 50 mls/hr Q24H IVPB ; Start 02/03/17 at 20:30; Stop 02/11/17 at 20:30 RIDGE MATTHEWS MD Feb 03, 2017 17:17
[2017-02-03] MEDS ORDERED: CALCIUM CARBONATE 500 MG CHEW TAB PO ONE (17:30)
[2017-02-03] MEDS: MUPIROCIN 2% 22 GM OINT TOP SCH ×2 (18:01→21:00)
[2017-02-03 20:12] VITALS: BP 134/57; RESP 18
[2017-02-03] MEDS: MONTELUKAST 10 MG TAB PO SCH (20:43)
[2017-02-03] MEDS: FLUCONAZOLE 100 MG/NS (PMX) 50 ML IVPB SCH (20:51)
[2017-02-03] MEDS: NEOMYC/POLYMYX/BACIT 30 GM OINT TOP SCH (20:51)
[2017-02-04] MEDS: INSULIN ASPART [NOVOLOG] 3 ML PEN SC SCH ×6 (01:00→21:01)
[2017-02-04] MEDS: ACCU-CHEK XX SCH (01:11)
[2017-02-04 02:18] VITALS: BP 125/55; RESP 18
[2017-02-04 04:36] LABS: PROTEIN, TOTAL 5.2 g/dL (6.1-8.1)
[2017-02-04] MEDS: MEROPENEM 1 GM/50ML(PMX) 50 ML IVPB SCH ×3 (06:07→23:22)
[2017-02-04 06:49] LABS: BASOPHIL # 0.1 10^3/ul (0.0-0.1); BASOPHILS % 0.6 % (0.0-2.0); EOSINOPHILS # 0.6 10^3/ul (0.0-0.5); HEMATOCRIT 26.9 % (37.0-47.0); HEMOGLOBIN 8.4 g/dl (12.0-16.0); LYMPHOCYTES # 4.7 10^3/ul (0.8-2.9); LYMPHOCYTES % 32.8 % (15.0-51.0); MEAN CORPUSCULAR HEMOGLOBIN 27.7 pg (29.0-33.0); MEAN CORPUSCULAR HGB CONC 31.2 g/dl (32.0-37.0); MEAN CORPUSCULAR VOLUME 88.8 fl (82.0-101.0); MEAN PLATELET VOLUME 10.1 fl (7.4-10.4); MONOCYTE # 1.1 10^3/ul (0.3-0.9); MONOCYTES % 7.7 % (0.0-11.0); NEUTROPHIL # 7.8 10^3/ul (1.6-7.5); NEUTROPHILS % 54.1 % (39.0-77.0); PLATELET COUNT 299 10^3/UL (140-415); RED BLOOD COUNT 3.03 10^6/ul (4.20-5.40); RED CELL DISTRIBUTION WIDTH 16.1 % (11.5-14.5); WHITE BLOOD COUNT 14.4 10^3/ul (4.8-10.8)
--- NOTE | 2017-02-04 06:58 | CONS ---
Date/Time of Note Date/Time of Note DATE: 02/04/17 TIME: 06:54 Assessment/Plan Assessment/Plan Chief Complaint/Hosp Course 1) progressive sacral ulcer, surrounding cellulitis await surgical input and debridement, consider MRI depending upon surgical eval wound cx to be obtained continue with vanco/merrem check ESR, CRP in a.m. 01/17 - proteus and another GNR in wound cx continue with merrem/vanco esr and CRP are moderately elevated mrsa to nares to start bactroban await surgical input pt is more awake today and able to answer some questions in [place] 01/18 - pt persistence of fever and elevated wbc is either due to an undrained abscess or inadequate antibiotics await wound care eval and surgical debridement will order MRI scan if no wound care is delivered by tomorrow wound cx has proteus, GNR and enterococcus continue with vanco/merrem at present 01/19 - wound cx are all sensitive to current antibiotics of vanco/merrem MRI of pelvis/abd was done but results not available pt to get debridement later this am. 01/20 - s/p debridement, some bone was shaved, MRI did not show osteo await path report continue with vanco/merrem fevers and WBC improved post debridement pt will need good nutrition to heal this wound, consider g-tube if pt not eating well 01/22 - pt to get g-tube for better nutrition continue with vanco/merrem thru 02/01/17 consider doxy for 2 weeks after that path specimen did not identify bone to examine for osteo 01/25 - WBC improved today and ESR was down from 78 to 65 no new issues continue with vanco/merrrem at present thru 02/01 then po doxy for 2 weeks 01/26 - re-culture the site continue vanco/merrem 01/27 - vac pump is applied re-cx of site has GNR so far 01/28 - acinetobacter now present and addendum to path shows osteomyelitis continue with merrem change vanco to minocycline send out for sensi's for colistin, avycaz, minocycline and tigecycline 01/29 - 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 01/30 - esr was a bit better continue with tigecycline/merrem, no need for diverting colostomy at this time as stool does not appear to be contaminating the sacral wound await final send out sensi's on the acinetobacter wbc is up but tigecycline can cause elevation of wbc 02/01 - spoke to surgeon who said wound is improved, but there is farooq exposure still awaitin sensi's on the acinetobacter wbc is slowly coming down but tigecycline can cause an increase in WBC continue merrem/tigecycline 02/04 - spoke to lab and expanded sensi's to the acinetobacter should be back by tomorrow maintain merrem/tigecycline at present 2) L heal ulcer with eschar no surrounding redness noted on picture 3) PVD 4) recent hx of LUE DVT 5) HTN 6) leukocytosis 01/26 - get u/a and urine cx, c.dif was sent off re-culture the sacral wound site doubt a pulmonary issue 01/27 - c.dif was neg WBC has improved without change in antibiotics urine cx is NGTD (prior one was only yeast) wound cx has GNR only so far continue present management 01/28 - wound cx is now growing highly resistant acinetobacter will adjust antibiotics and await send out sensi's to verify the best regimen for pt 01/29 - wound cx also grew VRE now on merrem/tigecycline 01/30 - await final sensi' results for acinetobacter tigecycline can cause increase in the WBC 02/04 - improving, but slight fever and increase in WBC today, to continue to monitor will re-check u/a and urine cx and consider CXR Problems: Consultation Date/Type/Reason Admit Date/Time Jan 15, 2017 at 14:33 Initial Consult Date 01/16/17 Type of Consultation: ID Referring Provider: RIDGE MATTHEWS MD 24 HR Interval Summary Free Text/Dictation spoke to nurse had slight temp this a.m. but normal now no V getting a swallow eval later no D no change in breathing or cough Exam/Review of Systems Vital Signs Vitals Vital Signs Date Time Temp Pulse Resp B/P Pulse Ox O2 Delivery O2 Flow Rate FiO2 02/04/17 02:18 100.1 78 18 125/55 98 02/03/17 20:00 Nasal Cannula 2.0 Intake and Output 02/03/17 02/03/17 02/04/17 15:00 23:00 07:00 Intake Total 100 ml 1170 ml 490 ml Output Total 850 ml 400 ml Balance 100 ml 320 ml 90 ml Exam Constitutional: alert Head: normocephalic ENMT: mucosa pink and moist Respiratory: clear to auscultation Cardiovascular: regular rate and rhythm Gastrointestinal: non-tender, soft Results Result Diagram: 02/04/17 0558 02/03/17 0439 Results 24 hrs Laboratory Tests Test 02/03/17 07:45 02/03/17 11:58 02/03/17 18:00 02/03/17 20:23 Bedside Glucose 144 198 214 221 H Test 02/04/17 01:09 02/04/17 04:50 02/04/17 05:58 Bedside Glucose 172 159 White Blood Count 14.4 #H Red Blood Count 3.03 L Hemoglobin 8.4 L Hematocrit 26.9 L Mean Corpuscular Volume 88.8 Mean Corpuscular Hemoglobin 27.7 L Mean Corpuscular Hemoglobin Concent 31.2 L Red Cell Distribution Width 16.1 H Platelet Count 299 Mean Platelet Volume 10.1 Neutrophils % 54.1 Lymphocytes % 32.8 Monocytes % 7.7 Eosinophils % 4.0 Basophils % 0.6 Nucleated Red Blood Cells % 0.0 Neutrophils # 7.8 H Lymphocytes # 4.7 H Monocytes # 1.1 H Eosinophils # 0.6 H Basophils # 0.1 Nucleated Red Blood Cells # 0.0 Medications Medications Current Medications Ondansetron HCl (Zofran Inj) 4 mg Q6H PRN IV NAUSEA AND/OR VOMITING; Start at 16:30 Acetaminophen (Tylenol Tab) 650 mg Q6H PRN PO PAIN LEVEL 1-3 OR FEVER Last administered on 01/17/17 06:40; Admin Dose 650 MG; Start 01/15/17 at 16:30 Magnesium Hydroxide (Milk Of Mag) 30 ml DAILY PRN PO CONSTIPATION Last administered on 01/24/17 09:15; Admin Dose 30 ML; Start 01/15/17 at 16:30 Aspirin (Halfprin) 81 mg DAILY PO Last administered on 02/03/17 08:23; Admin Dose 81 MG; Start 01/16/17 at 09:00 Losartan Potassium (Cozaar) 100 mg BID PO Last administered on 02/03/17 20:43 ; Admin Dose 100 MG; Start 01/15/17 at 21:00 Montelukast Sodium (Singulair) 10 mg QHS PO Last administered on 02/03/17 20: 43; Admin Dose 10 MG; Start 01/15/17 at 21:00 IV Flush (NS 10 ml) 10 ml PRN PRN IV IV PROTOCOL; Start 01/15/17 at 18:30 Miscellaneous Information 1 ea NOTE XX ; Start 01/15/17 at 19:00 Glucose (Glutose) 15 gm Q15M PRN PO DECREASED GLUCOSE; Start 01/15/17 at 19:00 Glucose (Glutose) 22.5 gm Q15M PRN PO DECREASED GLUCOSE; Start 01/15/17 at 19: 00 Dextrose (D50w Syringe) 25 ml Q15M PRN IV DECREASED GLUCOSE Last administered on 01/21/17 20:37; Admin Dose 25 ML; Start 01/15/17 at 19:00 Dextrose (D50w Syringe) 50 ml Q15M PRN IV DECREASED GLUCOSE; Start 01/15/17 at 19:00 Glucagon (Glucagen) 1 mg Q15M PRN IM DECREASED GLUCOSE; Start 01/15/17 at 19:00 Glucose (Glutose) 15 gm Q15M PRN BUCCAL DECREASED GLUCOSE Last administered on 01/21/17 19:53; Admin Dose 15 GM; Start 01/15/17 at 19:00 Diagnostic Test (Pha) (Accu-Chek) 1 ea 02 XX Last administered on 01/29/17 01: 36; Admin Dose 1 EA; Start 01/16/17 at 02:00 Clonidine (Catapres) 0.1 mg Q6H PRN PO BLOOD PRESSURE SBP>160 Last administered on 02/03/17 15:13; Admin Dose 0.1 MG; Start 01/15/17 at 20:30 Miscellaneous Information (Pending Santyl Order For Wound Care) This patient jean baptiste... PRN PRN XX WOUND CARE; Start 01/15/17 at 22:00 Collagenase (Santyl) 1 applic DAILY TOP Last administered on 02/03/17 08:30; Admin Dose 1 APPLIC; Start 01/16/17 at 21:00 Hydralazine HCl (Apresoline) 10 mg Q6 PRN IV ELEVATED BLOOD PRESSURE Last administered on 01/17/17 03:05; Admin Dose 10 MG; Start 01/17/17 at 03:00 Acetaminophen (Tylenol Supp) 650 mg Q6H PRN [place] FEVER GREATER THAN 100.6 Last administered on 01/17/17 07:26; Admin Dose 650 MG; Start 01/17/17 at 07:00 Mupirocin (Bactroban) 1 applic BID TOP Last administered on 02/03/17 18:01; Admin Dose 1 APPLIC; Start 01/17/17 at 11:00 Ferrous Sulfate (Slow Fe) 142 mg DAILY PO Last administered on 02/03/17 08:22 ; Admin Dose 142 MG; Start 01/18/17 at 14:30 Calcium Carbonate (Tums) 500 mg BID PO Last administered on 02/03/17 08:22; Admin Dose 500 MG; Start 01/18/17 at 14:30 Nystatin (Nystatin Powder) 1 applic BID TOP Last administered on 02/03/17 20: 49; Admin Dose 1 APPLIC; Start 01/18/17 at 21:00 Acetaminophen/ Hydrocodone Bitart ([place] (5/325)) 1 tab Q4H PRN PO PAIN LEVEL 4 -7 Last administered on 02/02/17 19:04; Admin Dose 1 TAB; Start 01/19/17 at 12: 00 Docusate Sodium (Colace) 100 mg BID PRN PO CONSTIPATION; Start 01/19/17 at 12: 00 Bisacodyl (Dulcolax Supp) 10 mg BID PRN [place] CONSTIPATION; Start 01/19/17 at 12: 00 Sodium Biphosphate/ Sodium Phosphate 133 ml 133 ml BID PRN [place] CONSTIPATION; Start 01/19/17 at 12:00 Meropenem/Sodium Chloride (Merrem 1 Gm/50 ml (Pmx)) 50 ml @ 100 mls/hr Q8 IVPB Last administered on 02/04/17 06:07; Admin Dose 100 MLS/HR; Start 01/19/17 at 15:00 Famotidine (Pepcid) 20 mg DAILY PO Last administered on 02/03/17 08:22; Admin Dose 20 MG; Start 01/21/17 at 09:00 Zolpidem Tartrate (Ambien) 10 mg HS PRN PO INSOMNIA Last administered on 00:11; Admin Dose 10 MG; Start 01/21/17 at 13:30 IV Flush (NS 10 ml) 10 ml PRN PRN IV IV PROTOCOL; Start 01/21/17 at 19:00 Insulin Human NPH (Humulin N) 10 unit BID@08,20 SC Last administered on 20:46; Admin Dose 10 UNIT; Start 01/22/17 at 08:00 Zinc Sulfate (Zinc Sulfate) 220 mg DAILY GTB Last administered on 02/03/17 08: 22; Admin Dose 220 MG; Start 01/23/17 at 15:30; Stop 02/05/17 at 09:01 Ascorbic Acid (Vitamin C) 500 mg BID GTB Last administered on 02/03/17 20:42; Admin Dose 500 MG; Start 01/23/17 at 21:00 Multivitamins (Multivitamin) 30 ml DAILY GTB Last administered on 02/03/17 08: 23; Admin Dose 30 ML; Start 01/23/17 at 17:00 Insulin Aspart (Novolog Insulin Pen) NOVOLOG *MODERATE* ALGORITHM Q4 SC Last administered on 02/03/17 20:47; Admin Dose 2 UNIT; Start 01/27/17 at 17:00 Neomycin/ Polymyxin/ Bacitracin (Neosporin Topical Oint) 1 applic BID TOP Last administered on 02/03/17 20:51; Admin Dose 1 APPLIC; Start 01/28/17 at 09:00 Hydrogen Peroxide (Hydrogen Peroxide) 1 applic BID TOP Last administered on 20:49; Admin Dose 1 APPLIC; Start 01/28/17 at 09:00 Apixaban 5 mg 5 mg BID PO Last administered on 02/03/17 20:42; Admin Dose 5 MG ; Start 01/28/17 at 14:00 Tigecycline/ Sodium Chloride (Tygacil/NS) 100 ml @ 200 mls/hr Q12 IVPB Last administered on 02/03/17 22:09; Admin Dose 200 MLS/HR; Start 01/29/17 at 21:00 Methadone HCl (Methadone) 20 mg AM PRN PO pain Last administered on 02/03/17 08:23; Admin Dose 20 MG; Start 02/02/17 at 09:00 Methadone HCl 10 mg 10 mg QHS PRN PO pain Last administered on 02/03/17 20:42 ; Admin Dose 10 MG; Start 02/01/17 at 18:30 Fluconazole/ Sodium Chloride (Diflucan 100 Mg/ NS (Pmx)) 50 ml @ 50 mls/hr Q24H IVPB Last administered on 02/03/17 20:51; Admin Dose 50 MLS/HR; Start at 20:30; Stop 02/11/17 at 20:30 ANTHONY WOODARD MD Feb 04, 2017 06:58
[2017-02-04 08:18] VITALS: BP 141/61; RESP 19
[2017-02-04] MEDS: COLLAGENASE 30 GM TUBE TOP SCH (09:00)
[2017-02-04] MEDS: ASPIRIN (EC) 81 MG TAB PO SCH (09:00)
[2017-02-04] MEDS: FERROUS SULFATE (SR) 142 MG TAB PO SCH (09:00)
[2017-02-04] MEDS: NPH, HUMAN INSULIN ISOPHANE 3ML VIAL SC SCH ×2 (09:18→20:59)
[2017-02-04] MEDS: MULTIVITAMINS 30 ML CUP GTB SCH (09:21)
[2017-02-04] MEDS: ASCORBIC ACID 500 MG TAB GTB SCH ×2 (09:25→20:44)
[2017-02-04] MEDS: ZINC SULFATE 220 MG CAP GTB SCH (09:25)
[2017-02-04] MEDS: TIGECYCLINE 50 MG in SOD CHLORIDE 0.9% 100 ML IVPB SCH ×2 (09:26→20:42)
[2017-02-04] MEDS: APIXABAN 5 MG TABLET PO SCH (09:32)
[2017-02-04] MEDS: FAMOTIDINE 20 MG TAB PO SCH (09:32)
[2017-02-04] MEDS: LOSARTAN 50 MG TAB PO SCH (09:32)
[2017-02-04] MEDS: CALCIUM CARBONATE 500 MG CHEW TAB PO SCH (09:33)
[2017-02-04] MEDS: MUPIROCIN 2% 22 GM OINT TOP SCH ×2 (09:33→20:46)
[2017-02-04] MEDS: NEOMYC/POLYMYX/BACIT 30 GM OINT TOP SCH ×2 (09:34→22:20)
[2017-02-04] MEDS: HYDROGEN PEROXIDE 118 ML TOP SCH ×2 (09:34→20:48)
[2017-02-04] MEDS: NYSTATIN 30 GM POWDER BTL TOP SCH ×2 (09:34→20:53)
[2017-02-04] MEDS ORDERED: ACETAMINOPHEN 325 MG TAB GTB PRN (10:58)
[2017-02-04] MEDS ORDERED: MAGNESIUM HYDROXIDE 30ML CUP GTB PRN (11:09)
[2017-02-04] MEDS ORDERED: DOCUSATE SODIUM 10 MG/ML (10ML CUP) GTB PRN (11:30)
[2017-02-04] MEDS: FERROUS SULFATE 60 MG/ML 5ML CUP GTB SCH (11:36)
[2017-02-04] MEDS: ASPIRIN 81 MG TAB GTB SCH (11:36)
[2017-02-04] MEDS: METHADONE 10 MG TAB GTB PRN ×2 (11:37→20:44)
--- NOTE | 2017-02-04 12:44 | PN ---
Date/Time of Note Date/Time of Note DATE: 02/04/17 TIME: 12:40 Assessment/Plan VTE Prophylaxis VTE Prophylaxis Intervention: other Lines/Catheters IV Catheter Type (from Nrsg): PICC Line Central line still needed: Yes Urinary Cath still in place: Yes Reason Cath still needed: skin wounds contaminated by urine Assessment/Plan Assessment/Plan sacral stage IV decub, growing proteus and ecoli and s.aureus. on merrem/vanco , being treated by ID. 02/19 debrided and eval for osteo. called ortho- they report that nothing for them to do regarding fx or osteo of sacrum. wbc improving. -path report +osteo. ortho called and will not treat. - vre grew. now on tigecycline/merrem. -if wound does not improve, ID is recommending diverting colostomy.---wound is mildly better. multi bugs growing. ID deciding if any changes of med. wbc has cont to improve. -02/04 tm 100.1 with rising wbc. unclear etiology, poor appetite- may be due to pain meds. for the next 24 hours will cont and then try to extend time between doses and also decrease dose. gtube in place. pt is allowed p.o. intake with aspiration precautions mentation better with less pain med. will open eyes and answer questions today. pain controlled with methadone. 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 may be due to lowering pain med. will watch tomorrow. dmII since gtube feeding, adjusting the insulin. doing well accu check stable. paroxysmal afib on last admission- occurred during sepsis and intubation. pt changed to elliquis. stable h/o left dvt of UE. now on elliquis. cont til dvt resolves. d/c planning has pt getting rdy for heard [place] but with rise in wbc and febrile , less likely to be able to go tomorrow. Subjective 24 Hr Interval Summary Free Text/Dictation fever in the last 24 hours with rise of wbc from 12 to 14. Exam/Review of Systems Vital Signs Vitals Vital Signs Date Time Temp Pulse Resp B/P Pulse Ox O2 Delivery O2 Flow Rate FiO2 02/04/17 08:18 98.5 67 19 141/61 100 02/03/17 20:00 Nasal Cannula 2.0 Intake and Output 02/03/17 02/03/17 02/04/17 14:59 22:59 06:59 Intake Total 100 ml 1170 ml 540 ml Output Total 850 ml 400 ml Balance 100 ml 320 ml 140 ml Results Result Diagram: 02/04/17 0558 02/03/17 0439 Results 24 hrs Laboratory Tests Test 02/03/17 18:00 02/03/17 20:23 02/04/17 01:09 02/04/17 04:50 Bedside Glucose 214 221 H 172 159 Test 02/04/17 05:58 02/04/17 09:14 White Blood Count 14.4 #H Red Blood Count 3.03 L Hemoglobin 8.4 L Hematocrit 26.9 L Mean Corpuscular Volume 88.8 Mean Corpuscular Hemoglobin 27.7 L Mean Corpuscular Hemoglobin Concent 31.2 L Red Cell Distribution Width 16.1 H Platelet Count 299 Mean Platelet Volume 10.1 Neutrophils % 54.1 Lymphocytes % 32.8 Monocytes % 7.7 Eosinophils % 4.0 Basophils % 0.6 Nucleated Red Blood Cells % 0.0 Neutrophils # 7.8 H Lymphocytes # 4.7 H Monocytes # 1.1 H Eosinophils # 0.6 H Basophils # 0.1 Nucleated Red Blood Cells # 0.0 Bedside Glucose 198 Medications Medications Current Medications Ondansetron HCl (Zofran Inj) 4 mg Q6H PRN IV NAUSEA AND/OR VOMITING; Start at 16:30 Losartan Potassium (Cozaar) 100 mg BID PO Last administered on 02/04/17 09:32 ; Admin Dose 100 MG; Start 01/15/17 at 21:00 IV Flush (NS 10 ml) 10 ml PRN PRN IV IV PROTOCOL; Start 01/15/17 at 18:30 Miscellaneous Information 1 ea NOTE XX ; Start 01/15/17 at 19:00 Glucose (Glutose) 15 gm Q15M PRN PO DECREASED GLUCOSE; Start 01/15/17 at 19:00 Glucose (Glutose) 22.5 gm Q15M PRN PO DECREASED GLUCOSE; Start 01/15/17 at 19: 00 Dextrose (D50w Syringe) 25 ml Q15M PRN IV DECREASED GLUCOSE Last administered on 01/21/17 20:37; Admin Dose 25 ML; Start 01/15/17 at 19:00 Dextrose (D50w Syringe) 50 ml Q15M PRN IV DECREASED GLUCOSE; Start 01/15/17 at 19:00 Glucagon (Glucagen) 1 mg Q15M PRN IM DECREASED GLUCOSE; Start 01/15/17 at 19:00 Glucose (Glutose) 15 gm Q15M PRN BUCCAL DECREASED GLUCOSE Last administered on 01/21/17 19:53; Admin Dose 15 GM; Start 01/15/17 at 19:00 Diagnostic Test (Pha) (Accu-Chek) 1 ea 02 XX Last administered on 01/29/17 01: 36; Admin Dose 1 EA; Start 01/16/17 at 02:00 Miscellaneous Information (Pending Santyl Order For Wound Care) This patient jean baptiste... PRN PRN XX WOUND CARE; Start 01/15/17 at 22:00 Collagenase (Santyl) 1 applic DAILY TOP Last administered on 02/03/17 08:30; Admin Dose 1 APPLIC; Start 01/16/17 at 21:00 Hydralazine HCl (Apresoline) 10 mg Q6 PRN IV ELEVATED BLOOD PRESSURE Last administered on 01/17/17 03:05; Admin Dose 10 MG; Start 01/17/17 at 03:00 Acetaminophen (Tylenol Supp) 650 mg Q6H PRN MT FEVER GREATER THAN 100.6 Last administered on 01/17/17 07:26; Admin Dose 650 MG; Start 01/17/17 at 07:00 Mupirocin (Bactroban) 1 applic BID TOP Last administered on 02/04/17 09:33; Admin Dose 1 APPLIC; Start 01/17/17 at 11:00 Nystatin (Nystatin Powder) 1 applic BID TOP Last administered on 02/04/17 09: 34; Admin Dose 1 APPLIC; Start 01/18/17 at 21:00 Bisacodyl (Dulcolax Supp) 10 mg BID PRN [place] CONSTIPATION; Start 01/19/17 at 12: 00 Sodium Biphosphate/ Sodium Phosphate 133 ml 133 ml BID PRN MT CONSTIPATION; Start 01/19/17 at 12:00 Meropenem/Sodium Chloride (Merrem 1 Gm/50 ml (Pmx)) 50 ml @ 100 mls/hr Q8 IVPB Last administered on 02/04/17 06:07; Admin Dose 100 MLS/HR; Start 01/19/17 at 15:00 Zolpidem Tartrate (Ambien) 10 mg HS PRN PO INSOMNIA Last administered on 00:11; Admin Dose 10 MG; Start 01/21/17 at 13:30 IV Flush (NS 10 ml) 10 ml PRN PRN IV IV PROTOCOL; Start 01/21/17 at 19:00 Insulin Human NPH (Humulin N) 10 unit BID@08,20 SC Last administered on 09:18; Admin Dose 10 UNIT; Start 01/22/17 at 08:00 Zinc Sulfate (Zinc Sulfate) 220 mg DAILY GTB Last administered on 02/04/17 09: 25; Admin Dose 220 MG; Start 01/23/17 at 15:30; Stop 02/05/17 at 09:01 Ascorbic Acid (Vitamin C) 500 mg BID GTB Last administered on 02/04/17 09:25; Admin Dose 500 MG; Start 01/23/17 at 21:00 Multivitamins (Multivitamin) 30 ml DAILY GTB Last administered on 02/04/17 09: 21; Admin Dose 30 ML; Start 01/23/17 at 17:00 Insulin Aspart (Novolog Insulin Pen) NOVOLOG *MODERATE* ALGORITHM Q4 SC Last administered on 02/04/17 09:20; Admin Dose 4 UNIT; Start 01/27/17 at 17:00 Neomycin/ Polymyxin/ Bacitracin (Neosporin Topical Oint) 1 applic BID TOP Last administered on 02/04/17 09:34; Admin Dose 1 APPLIC; Start 01/28/17 at 09:00 Hydrogen Peroxide 1 applic 1 applic BID TOP Last administered on 02/04/17 09: 34; Admin Dose 1 APPLIC; Start 01/28/17 at 09:00 Tigecycline 50 mg/ Sodium Chloride 100 ml @ 200 mls/hr Q12 IVPB Last administered on 02/04/17 09:26; Admin Dose 200 MLS/HR; Start 01/29/17 at 21:00 Fluconazole/ Sodium Chloride (Diflucan 100 Mg/ NS (Pmx)) 50 ml @ 50 mls/hr Q24H IVPB Last administered on 02/03/17 20:51; Admin Dose 50 MLS/HR; Start at 20:30; Stop 02/11/17 at 20:30 Acetaminophen (Tylenol Tab) 650 mg Q6H PRN GTB PAIN LEVEL 1-3 OR FEVER; Start 02/04/17 at 10:58 Apixaban (Eliquis) 5 mg BID GTB ; Start 02/04/17 at 10:59 Aspirin (Aspirin) 81 mg DAILY GTB Last administered on 02/04/17 11:36; Admin Dose 81 MG; Start 02/04/17 at 11:00 Calcium Carbonate (Tums) 500 mg BID GTB ; Start 02/04/17 at 11:00 Clonidine (Catapres) 0.1 mg Q6H PRN GTB BLOOD PRESSURE SBP>160; Start 02/04/17 at 11:01 Docusate Sodium (Colace Liquid Cup) 100 mg BID PRN GTB CONSTIPATION; Start at 11:30 Famotidine (Pepcid) 20 mg DAILY GTB ; Start 02/04/17 at 11:03 Ferrous Sulfate (Feosol Liquid Cup) 225 mg DAILY GTB Last administered on 11:36; Admin Dose 225 MG; Start 02/04/17 at 11:30 Acetaminophen/ Hydrocodone Bitart ([place] (5/325)) 1 tab Q4H PRN GTB PAIN LEVEL 4-7; Start 02/04/17 at 11:08 Magnesium Hydroxide (Milk Of Mag) 30 ml DAILY PRN GTB CONSTIPATION; Start 02/04 at 11:09 Methadone HCl (Methadone) 10 mg QHS PRN GTB pain; Start 02/04/17 at 11:11 Methadone HCl (Methadone) 20 mg AM PRN GTB pain Last administered on 02/04/17 11:37; Admin Dose 20 MG; Start 02/04/17 at 11:12 Montelukast Sodium (Singulair) 10 mg QHS GTB ; Start 02/04/17 at 11:12 RIDGE MATTHEWS MD Feb 04, 2017 12:44
[2017-02-04 12:47] LABS: ADD UMIC YES; UR BILIRUBIN (Dip) NEGATIVE (NEGATIVE); UR BLOOD (Dip) NEGATIVE (NEGATIVE); UR CLARITY CLOUDY (CLEAR); UR COLOR YELLOW (YELLOW); UR GLUCOSE (Dip) NEGATIVE (NEGATIVE); UR KETONES (Dip) NEGATIVE (NEGATIVE); UR LEUKOCYTE ESTERASE (Dip) TRACE Leu/ul (NEGATIVE); UR NITRITE (Dip) NEGATIVE (NEGATIVE); UR TOTAL PROTEIN (Dip) TRACE mg/dl (NEGATIVE); UR UROBILINOGEN (Dip) 0.2 E.U./dL mg/dL (NEGATIVE)
[2017-02-04 13:01] LABS: UR AMORPHOUS CRYSTAL MODERATE /HPF (NONE SEEN); UR BUDDING YEAST FEW /HPF (NONE SEEN)
[2017-02-04 13:45] VITALS: BP 152/67; PULSE 78; RESP 15
--- NOTE | 2017-02-04 15:49 | CONS ---
Date/Time of Note Date/Time of Note DATE: 02/04/17 TIME: 15:48 Assessment/Plan Assessment/Plan Additional Assessment/Plan Sacral decubiti DVT of left upper extremity History of paroxysmal atrial fibrillation Preserved ejection fraction Peripheral arterial disease -Continue Eliquis as long as hemoglobin remains stable. Blood pressure trend overall remains stable. No new cardiac orders at the current time. Consultation Date/Type/Reason Admit Date/Time Jan 15, 2017 at 14:33 Initial Consult Date 01/19/17 Type of Consultation: cv Referring Provider: RIDGE MATTHEWS MD 24 HR Interval Summary Free Text/Dictation Patient seen and examined Exam/Review of Systems Vital Signs Vitals Vital Signs Date Time Temp Pulse Resp B/P Pulse Ox O2 Delivery O2 Flow Rate FiO2 02/04/17 13:45 97.8 78 15 152/67 100 Nasal Cannula 2.0 Intake and Output 02/03/17 02/03/17 02/04/17 15:00 23:00 07:00 Intake Total 100 ml 1170 ml 540 ml Output Total 850 ml 400 ml Balance 100 ml 320 ml 140 ml Exam Sleeping, no apparent distress Head: normocephalic Respiratory: other (Coarse breath sounds bilaterally, no wheezing) Cardiovascular: other (S1-S2 heard), regular rate and rhythm Gastrointestinal: bowel sounds, non-tender, soft Extremities: edema (Trace) Results Result Diagram: 02/04/17 0558 02/03/17 0439 Results 24 hrs Laboratory Tests Test 02/03/17 18:00 02/03/17 20:23 02/04/17 01:09 02/04/17 04:50 Bedside Glucose 214 221 H 172 159 Test 02/04/17 05:58 02/04/17 09:14 02/04/17 11:50 02/04/17 13:35 White Blood Count 14.4 #H Red Blood Count 3.03 L Hemoglobin 8.4 L Hematocrit 26.9 L Mean Corpuscular Volume 88.8 Mean Corpuscular Hemoglobin 27.7 L Mean Corpuscular Hemoglobin Concent 31.2 L Red Cell Distribution Width 16.1 H Platelet Count 299 Mean Platelet Volume 10.1 Neutrophils % 54.1 Lymphocytes % 32.8 Monocytes % 7.7 Eosinophils % 4.0 Basophils % 0.6 Nucleated Red Blood Cells % 0.0 Neutrophils # 7.8 H Lymphocytes # 4.7 H Monocytes # 1.1 H Eosinophils # 0.6 H Basophils # 0.1 Nucleated Red Blood Cells # 0.0 Bedside Glucose 198 164 Urine Color YELLOW Urine Clarity CLOUDY Urine pH 8.0 Urine Specific Hext 1.015 Urine Ketones NEGATIVE Urine Nitrite NEGATIVE Urine Bilirubin NEGATIVE Urine Urobilinogen 0.2 E.U./dL Urine Leukocyte Esterase TRACE Urine Microscopic WBC 0-2 Urine Amorphous Crystals MODERATE Urine Yeast (Budding) FEW Urine Hemoglobin NEGATIVE Urine Glucose NEGATIVE Urine Total Protein TRACE Medications Medications Current Medications Ondansetron HCl (Zofran Inj) 4 mg Q6H PRN IV NAUSEA AND/OR VOMITING; Start at 16:30 IV Flush (NS 10 ml) 10 ml PRN PRN IV IV PROTOCOL; Start 01/15/17 at 18:30 Miscellaneous Information 1 ea NOTE XX ; Start 01/15/17 at 19:00 Glucose (Glutose) 15 gm Q15M PRN PO DECREASED GLUCOSE; Start 01/15/17 at 19:00 Glucose (Glutose) 22.5 gm Q15M PRN PO DECREASED GLUCOSE; Start 01/15/17 at 19: 00 Dextrose (D50w Syringe) 25 ml Q15M PRN IV DECREASED GLUCOSE Last administered on 01/21/17 20:37; Admin Dose 25 ML; Start 01/15/17 at 19:00 Dextrose (D50w Syringe) 50 ml Q15M PRN IV DECREASED GLUCOSE; Start 01/15/17 at 19:00 Glucagon (Glucagen) 1 mg Q15M PRN IM DECREASED GLUCOSE; Start 01/15/17 at 19:00 Glucose (Glutose) 15 gm Q15M PRN BUCCAL DECREASED GLUCOSE Last administered on 01/21/17 19:53; Admin Dose 15 GM; Start 01/15/17 at 19:00 Diagnostic Test (Pha) (Accu-Chek) 1 ea 02 XX Last administered on 01/29/17 01: 36; Admin Dose 1 EA; Start 01/16/17 at 02:00 Miscellaneous Information (Pending Santyl Order For Wound Care) This patient jean baptiste... PRN PRN XX WOUND CARE; Start 01/15/17 at 22:00 Collagenase (Santyl) 1 applic DAILY TOP Last administered on 02/03/17 08:30; Admin Dose 1 APPLIC; Start 01/16/17 at 21:00 Hydralazine HCl (Apresoline) 10 mg Q6 PRN IV ELEVATED BLOOD PRESSURE Last administered on 01/17/17 03:05; Admin Dose 10 MG; Start 01/17/17 at 03:00 Acetaminophen (Tylenol Supp) 650 mg Q6H PRN MD FEVER GREATER THAN 100.6 Last administered on 01/17/17 07:26; Admin Dose 650 MG; Start 01/17/17 at 07:00 Mupirocin (Bactroban) 1 applic BID TOP Last administered on 02/04/17 09:33; Admin Dose 1 APPLIC; Start 01/17/17 at 11:00 Nystatin (Nystatin Powder) 1 applic BID TOP Last administered on 02/04/17 09: 34; Admin Dose 1 APPLIC; Start 01/18/17 at 21:00 Bisacodyl (Dulcolax Supp) 10 mg BID PRN MD CONSTIPATION; Start 01/19/17 at 12: 00 Sodium Biphosphate/ Sodium Phosphate 133 ml 133 ml BID PRN MD CONSTIPATION; Start 01/19/17 at 12:00 Meropenem/Sodium Chloride (Merrem 1 Gm/50 ml (Pmx)) 50 ml @ 100 mls/hr Q8 IVPB Last administered on 02/04/17 13:38; Admin Dose 100 MLS/HR; Start 01/19/17 at 15:00 Zolpidem Tartrate (Ambien) 10 mg HS PRN PO INSOMNIA Last administered on 00:11; Admin Dose 10 MG; Start 01/21/17 at 13:30 IV Flush (NS 10 ml) 10 ml PRN PRN IV IV PROTOCOL; Start 01/21/17 at 19:00 Insulin Human NPH (Humulin N) 10 unit BID@08,20 SC Last administered on 09:18; Admin Dose 10 UNIT; Start 01/22/17 at 08:00 Zinc Sulfate (Zinc Sulfate) 220 mg DAILY GTB Last administered on 02/04/17 09: 25; Admin Dose 220 MG; Start 01/23/17 at 15:30; Stop 02/05/17 at 09:01 Ascorbic Acid (Vitamin C) 500 mg BID GTB Last administered on 02/04/17 09:25; Admin Dose 500 MG; Start 01/23/17 at 21:00 Multivitamins (Multivitamin) 30 ml DAILY GTB Last administered on 02/04/17 09: 21; Admin Dose 30 ML; Start 01/23/17 at 17:00 Insulin Aspart (Novolog Insulin Pen) NOVOLOG *MODERATE* ALGORITHM Q4 SC Last administered on 02/04/17 13:38; Admin Dose 2 UNIT; Start 01/27/17 at 17:00 Neomycin/ Polymyxin/ Bacitracin (Neosporin Topical Oint) 1 applic BID TOP Last administered on 02/04/17 09:34; Admin Dose 1 APPLIC; Start 01/28/17 at 09:00 Hydrogen Peroxide 1 applic 1 applic BID TOP Last administered on 02/04/17 09: 34; Admin Dose 1 APPLIC; Start 01/28/17 at 09:00 Tigecycline 50 mg/ Sodium Chloride 100 ml @ 200 mls/hr Q12 IVPB Last administered on 02/04/17 09:26; Admin Dose 200 MLS/HR; Start 01/29/17 at 21:00 Fluconazole/ Sodium Chloride (Diflucan 100 Mg/ NS (Pmx)) 50 ml @ 50 mls/hr Q24H IVPB Last administered on 02/03/17 20:51; Admin Dose 50 MLS/HR; Start at 20:30; Stop 02/11/17 at 20:30 Acetaminophen (Tylenol Tab) 650 mg Q6H PRN GTB PAIN LEVEL 1-3 OR FEVER; Start 02/04/17 at 10:58 Apixaban (Eliquis) 5 mg BID GTB ; Start 02/04/17 at 10:59 Aspirin (Aspirin) 81 mg DAILY GTB Last administered on 02/04/17 11:36; Admin Dose 81 MG; Start 02/04/17 at 11:00 Calcium Carbonate (Tums) 500 mg BID GTB ; Start 02/04/17 at 11:00 Clonidine (Catapres) 0.1 mg Q6H PRN GTB BLOOD PRESSURE SBP>160; Start 02/04/17 at 11:01 Docusate Sodium (Colace Liquid Cup) 100 mg BID PRN GTB CONSTIPATION; Start at 11:30 Famotidine (Pepcid) 20 mg DAILY GTB ; Start 02/04/17 at 11:03 Ferrous Sulfate (Feosol Liquid Cup) 225 mg DAILY GTB Last administered on 11:36; Admin Dose 225 MG; Start 02/04/17 at 11:30 Acetaminophen/ Hydrocodone Bitart ([place] (5/325)) 1 tab Q4H PRN GTB PAIN LEVEL 4-7; Start 02/04/17 at 11:08 Magnesium Hydroxide (Milk Of Mag) 30 ml DAILY PRN GTB CONSTIPATION; Start 02/04 at 11:09 Methadone HCl (Methadone) 10 mg QHS PRN GTB pain; Start 02/04/17 at 11:11 Methadone HCl (Methadone) 20 mg AM PRN GTB pain Last administered on 02/04/17 11:37; Admin Dose 20 MG; Start 02/04/17 at 11:12 Montelukast Sodium (Singulair) 10 mg QHS GTB ; Start 02/04/17 at 11:12 Losartan Potassium (Cozaar) 100 mg DAILY PO ; Start 02/05/17 at 09:00 Tucker Jacome DO Feb 04, 2017 15:49
[2017-02-04] MEDS: HYDROCODONE/APAP (5/325) TAB GTB PRN (18:16)
[2017-02-04 20:00] VITALS: BP 128/60; RESP 18
[2017-02-04] MEDS: CALCIUM CARBONATE 500 MG CHEW TAB GTB SCH (20:42)
[2017-02-04] MEDS: MONTELUKAST 10 MG TAB GTB SCH (20:44)
[2017-02-04] MEDS: APIXABAN 5 MG TABLET GTB SCH (20:44)
[2017-02-04 22:03] LABS: ALBUMIN 1.7 g/dL (3.8-4.8)
[2017-02-04] MEDS: FLUCONAZOLE 100 MG/NS (PMX) 50 ML IVPB SCH (22:15)
[2017-02-04] MEDS: ZOLPIDEM 5 MG TAB PO PRN (23:27)
[2017-02-05] MEDS: INSULIN ASPART [NOVOLOG] 3 ML PEN SC SCH ×6 (01:03→21:00)
[2017-02-05] MEDS: ACCU-CHEK XX SCH (02:00)
[2017-02-05] MEDS: MEROPENEM 1 GM/50ML(PMX) 50 ML IVPB SCH ×3 (05:33→22:13)
[2017-02-05 06:00] LABS: BASOPHIL # 0.1 10^3/ul (0.0-0.1); BASOPHILS % 0.6 % (0.0-2.0); EOSINOPHILS # 0.7 10^3/ul (0.0-0.5); EOSINOPHILS % 5.6 % (0.0-7.0); HEMATOCRIT 25.9 % (37.0-47.0); HEMOGLOBIN 7.9 g/dl (12.0-16.0); LYMPHOCYTES % 30.2 % (15.0-51.0); MEAN CORPUSCULAR HEMOGLOBIN 27.2 pg (29.0-33.0); MEAN CORPUSCULAR HGB CONC 30.5 g/dl (32.0-37.0); MEAN CORPUSCULAR VOLUME 89.3 fl (82.0-101.0); MEAN PLATELET VOLUME 10.1 fl (7.4-10.4); MONOCYTE # 1.2 10^3/ul (0.3-0.9); MONOCYTES % 8.7 % (0.0-11.0); NEUTROPHIL # 7.2 10^3/ul (1.6-7.5); NEUTROPHILS % 54.1 % (39.0-77.0); PLATELET COUNT 279 10^3/UL (140-415); RED CELL DISTRIBUTION WIDTH 16.2 % (11.5-14.5); WHITE BLOOD COUNT 13.3 10^3/ul (4.8-10.8)
[2017-02-05 07:55] VITALS: BP 140/50; RESP 18
[2017-02-05] MEDS: COLLAGENASE 30 GM TUBE TOP SCH (08:37)
[2017-02-05] MEDS: TIGECYCLINE 50 MG in SOD CHLORIDE 0.9% 100 ML IVPB SCH ×2 (08:43→21:08)
[2017-02-05] MEDS: ZINC SULFATE 220 MG CAP GTB SCH (08:43)
[2017-02-05] MEDS: CALCIUM CARBONATE 500 MG CHEW TAB GTB SCH ×2 (08:44→21:03)
[2017-02-05] MEDS: APIXABAN 5 MG TABLET GTB SCH ×2 (08:44→21:04)
[2017-02-05] MEDS: FAMOTIDINE 20 MG TAB GTB SCH (08:44)
[2017-02-05] MEDS: MULTIVITAMINS 30 ML CUP GTB SCH (08:44)
[2017-02-05] MEDS: LOSARTAN 50 MG TAB GTB SCH (08:44)
[2017-02-05] MEDS: ASCORBIC ACID 500 MG TAB GTB SCH ×2 (08:44→21:03)
[2017-02-05] MEDS: ASPIRIN 81 MG TAB GTB SCH (08:44)
[2017-02-05] MEDS: FERROUS SULFATE 60 MG/ML 5ML CUP GTB SCH (08:44)
[2017-02-05] MEDS: NPH, HUMAN INSULIN ISOPHANE 3ML VIAL SC SCH ×2 (08:47→20:05)
[2017-02-05] MEDS: NYSTATIN 30 GM POWDER BTL TOP SCH ×2 (09:00→21:09)
[2017-02-05] MEDS: MUPIROCIN 2% 22 GM OINT TOP SCH ×2 (09:00→21:09)
[2017-02-05] MEDS: NEOMYC/POLYMYX/BACIT 30 GM OINT TOP SCH ×2 (09:00→21:10)
[2017-02-05] MEDS: HYDROGEN PEROXIDE 118 ML TOP SCH ×2 (09:01→21:10)
[2017-02-05] MEDS: METHADONE 10 MG TAB GTB PRN ×2 (10:01→21:04)
--- NOTE | 2017-02-05 10:39 | CONS ---
Date/Time of Note Date/Time of Note DATE: 02/05/17 TIME: 10:36 Assessment/Plan Assessment/Plan Chief Complaint/Hosp Course 1) progressive sacral ulcer, surrounding cellulitis await surgical input and debridement, consider MRI depending upon surgical eval wound cx to be obtained continue with vanco/merrem check ESR, CRP in a.m. 01/17 - proteus and another GNR in wound cx continue with merrem/vanco esr and CRP are moderately elevated mrsa to nares to start bactroban await surgical input pt is more awake today and able to answer some questions in [place] 01/18 - pt persistence of fever and elevated wbc is either due to an undrained abscess or inadequate antibiotics await wound care eval and surgical debridement will order MRI scan if no wound care is delivered by tomorrow wound cx has proteus, GNR and enterococcus continue with vanco/merrem at present 01/19 - wound cx are all sensitive to current antibiotics of vanco/merrem MRI of pelvis/abd was done but results not available pt to get debridement later this am. 01/20 - s/p debridement, some bone was shaved, MRI did not show osteo await path report continue with vanco/merrem fevers and WBC improved post debridement pt will need good nutrition to heal this wound, consider g-tube if pt not eating well 01/22 - pt to get g-tube for better nutrition continue with vanco/merrem thru 02/01/17 consider doxy for 2 weeks after that path specimen did not identify bone to examine for osteo 01/25 - WBC improved today and ESR was down from 78 to 65 no new issues continue with vanco/merrrem at present thru 02/01 then po doxy for 2 weeks 01/26 - re-culture the site continue vanco/merrem 01/27 - vac pump is applied re-cx of site has GNR so far 01/28 - acinetobacter now present and addendum to path shows osteomyelitis continue with merrem change vanco to minocycline send out for sensi's for colistin, avycaz, minocycline and tigecycline 01/29 - 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 01/30 - esr was a bit better continue with tigecycline/merrem, no need for diverting colostomy at this time as stool does not appear to be contaminating the sacral wound await final send out sensi's on the acinetobacter wbc is up but tigecycline can cause elevation of wbc 02/01 - spoke to surgeon who said wound is improved, but there is farooq exposure still awaitin sensi's on the acinetobacter wbc is slowly coming down but tigecycline can cause an increase in WBC continue merrem/tigecycline 02/04 - spoke to lab and expanded sensi's to the acinetobacter should be back by tomorrow maintain merrem/tigecycline at present 02/05 focus lab system is down and it has delayed the expanded sensi's for acinetobacter maintain merrem/tigecycline for now 2) L heal ulcer with eschar no surrounding redness noted on picture 3) PVD 4) recent hx of LUE DVT 5) HTN 6) leukocytosis 01/26 - get u/a and urine cx, c.dif was sent off re-culture the sacral wound site doubt a pulmonary issue 01/27 - c.dif was neg WBC has improved without change in antibiotics urine cx is NGTD (prior one was only yeast) wound cx has GNR only so far continue present management 01/28 - wound cx is now growing highly resistant acinetobacter will adjust antibiotics and await send out sensi's to verify the best regimen for pt 01/29 - wound cx also grew VRE now on merrem/tigecycline 01/30 - await final sensi' results for acinetobacter tigecycline can cause increase in the WBC 02/04 - improving, but slight fever and increase in WBC today, to continue to monitor will re-check u/a and urine cx and consider CXR 02/05 - u/a shows no pyuria, yeast in urine is not significant and does not need treatment c.dif was negative fevers and wbc improved tigecycline can cause some leukocytosis so WBC may not return to normal while on it Problems: Consultation Date/Type/Reason Admit Date/Time Jan 15, 2017 at 14:33 Initial Consult Date 01/16/17 Type of Consultation: ID Referring Provider: RIDGE MATTHEWS MD 24 HR Interval Summary Free Text/Dictation no new problems Exam/Review of Systems Vital Signs Vitals Vital Signs Date Time Temp Pulse Resp B/P Pulse Ox O2 Delivery O2 Flow Rate FiO2 02/05/17 07:55 98.7 76 18 140/50 100 02/04/17 20:00 Nasal Cannula 2.0 Intake and Output 02/04/17 02/04/17 02/05/17 15:00 23:00 07:00 Intake Total 150 ml 1260 ml 590 ml Output Total 450 ml 500 ml Balance 150 ml 810 ml 90 ml Exam Constitutional: alert Respiratory: clear to auscultation Cardiovascular: regular rate and rhythm Gastrointestinal: non-tender, soft Results Result Diagram: 02/05/17 0439 02/03/17 0439 Results 24 hrs Laboratory Tests Test 02/04/17 11:50 02/04/17 13:35 02/04/17 17:59 02/04/17 20:55 Urine Color YELLOW Urine Clarity CLOUDY Urine pH 8.0 Urine Specific Register 1.015 Urine Ketones NEGATIVE Urine Nitrite NEGATIVE Urine Bilirubin NEGATIVE Urine Urobilinogen 0.2 E.U./dL Urine Leukocyte Esterase TRACE Urine Microscopic WBC 0-2 Urine Amorphous Crystals MODERATE Urine Yeast (Budding) FEW Urine Hemoglobin NEGATIVE Urine Glucose NEGATIVE Urine Total Protein TRACE Bedside Glucose 164 140 199 Test 02/05/17 01:00 02/05/17 04:39 02/05/17 05:36 02/05/17 08:42 Bedside Glucose 202 123 149 White Blood Count 13.3 H Red Blood Count 2.90 L Hemoglobin 7.9 L Hematocrit 25.9 L Mean Corpuscular Volume 89.3 Mean Corpuscular Hemoglobin 27.2 L Mean Corpuscular Hemoglobin Concent 30.5 L Red Cell Distribution Width 16.2 H Platelet Count 279 Mean Platelet Volume 10.1 Neutrophils % 54.1 Lymphocytes % 30.2 Monocytes % 8.7 Eosinophils % 5.6 Basophils % 0.6 Nucleated Red Blood Cells % 0.0 Neutrophils # 7.2 Lymphocytes # 4.0 H Monocytes # 1.2 H Eosinophils # 0.7 H Basophils # 0.1 Nucleated Red Blood Cells # 0.0 Medications Medications Current Medications Ondansetron HCl (Zofran Inj) 4 mg Q6H PRN IV NAUSEA AND/OR VOMITING; Start at 16:30 IV Flush (NS 10 ml) 10 ml PRN PRN IV IV PROTOCOL; Start 01/15/17 at 18:30 Miscellaneous Information 1 ea NOTE XX ; Start 01/15/17 at 19:00 Glucose (Glutose) 15 gm Q15M PRN PO DECREASED GLUCOSE; Start 01/15/17 at 19:00 Glucose (Glutose) 22.5 gm Q15M PRN PO DECREASED GLUCOSE; Start 01/15/17 at 19: 00 Dextrose (D50w Syringe) 25 ml Q15M PRN IV DECREASED GLUCOSE Last administered on 01/21/17 20:37; Admin Dose 25 ML; Start 01/15/17 at 19:00 Dextrose (D50w Syringe) 50 ml Q15M PRN IV DECREASED GLUCOSE; Start 01/15/17 at 19:00 Glucagon (Glucagen) 1 mg Q15M PRN IM DECREASED GLUCOSE; Start 01/15/17 at 19:00 Glucose (Glutose) 15 gm Q15M PRN BUCCAL DECREASED GLUCOSE Last administered on 01/21/17 19:53; Admin Dose 15 GM; Start 01/15/17 at 19:00 Diagnostic Test (Pha) (Accu-Chek) 1 ea 02 XX Last administered on 01/29/17 01: 36; Admin Dose 1 EA; Start 01/16/17 at 02:00 Miscellaneous Information (Pending Santyl Order For Wound Care) This patient jean baptiste... PRN PRN XX WOUND CARE; Start 01/15/17 at 22:00 Collagenase (Santyl) 1 applic DAILY TOP Last administered on 02/03/17 08:30; Admin Dose 1 APPLIC; Start 01/16/17 at 21:00 Hydralazine HCl (Apresoline) 10 mg Q6 PRN IV ELEVATED BLOOD PRESSURE Last administered on 01/17/17 03:05; Admin Dose 10 MG; Start 01/17/17 at 03:00 Acetaminophen (Tylenol Supp) 650 mg Q6H PRN [place] FEVER GREATER THAN 100.6 Last administered on 01/17/17 07:26; Admin Dose 650 MG; Start 01/17/17 at 07:00 Mupirocin (Bactroban) 1 applic BID TOP Last administered on 02/05/17 09:00; Admin Dose 1 APPLIC; Start 01/17/17 at 11:00 Nystatin (Nystatin Powder) 1 applic BID TOP Last administered on 02/05/17 09: 00; Admin Dose 1 APPLIC; Start 01/18/17 at 21:00 Bisacodyl (Dulcolax Supp) 10 mg BID PRN [place] CONSTIPATION; Start 01/19/17 at 12: 00 Sodium Biphosphate/ Sodium Phosphate 133 ml 133 ml BID PRN [place] CONSTIPATION; Start 01/19/17 at 12:00 Meropenem/Sodium Chloride (Merrem 1 Gm/50 ml (Pmx)) 50 ml @ 100 mls/hr Q8 IVPB Last administered on 02/05/17 05:33; Admin Dose 100 MLS/HR; Start 01/19/17 at 15:00 Zolpidem Tartrate (Ambien) 10 mg HS PRN PO INSOMNIA Last administered on 23:27; Admin Dose 10 MG; Start 01/21/17 at 13:30 IV Flush (NS 10 ml) 10 ml PRN PRN IV IV PROTOCOL; Start 01/21/17 at 19:00 Insulin Human NPH (Humulin N) 10 unit BID@08,20 SC Last administered on 08:47; Admin Dose 10 UNIT; Start 01/22/17 at 08:00 Ascorbic Acid (Vitamin C) 500 mg BID GTB Last administered on 02/05/17 08:44; Admin Dose 500 MG; Start 01/23/17 at 21:00 Multivitamins (Multivitamin) 30 ml DAILY GTB Last administered on 02/05/17 08: 44; Admin Dose 30 ML; Start 01/23/17 at 17:00 Insulin Aspart (Novolog Insulin Pen) NOVOLOG *MODERATE* ALGORITHM Q4 SC Last administered on 02/05/17 08:53; Admin Dose 2 UNIT; Start 01/27/17 at 17:00 Neomycin/ Polymyxin/ Bacitracin (Neosporin Topical Oint) 1 applic BID TOP Last administered on 02/05/17 09:00; Admin Dose 1 APPLIC; Start 01/28/17 at 09:00 Hydrogen Peroxide 1 applic 1 applic BID TOP Last administered on 02/05/17 09: 01; Admin Dose 1 APPLIC; Start 01/28/17 at 09:00 Tigecycline 50 mg/ Sodium Chloride 100 ml @ 200 mls/hr Q12 IVPB Last administered on 02/05/17 08:43; Admin Dose 200 MLS/HR; Start 01/29/17 at 21:00 Fluconazole/ Sodium Chloride (Diflucan 100 Mg/ NS (Pmx)) 50 ml @ 50 mls/hr Q24H IVPB Last administered on 02/04/17 22:15; Admin Dose 50 MLS/HR; Start at 20:30; Stop 02/11/17 at 20:30 Acetaminophen (Tylenol Tab) 650 mg Q6H PRN GTB PAIN LEVEL 1-3 OR FEVER; Start 02/04/17 at 10:58 Apixaban (Eliquis) 5 mg BID GTB Last administered on 02/05/17 08:44; Admin Dose 5 MG; Start 02/04/17 at 10:59 Aspirin (Aspirin) 81 mg DAILY GTB Last administered on 02/05/17 08:44; Admin Dose 81 MG; Start 02/04/17 at 11:00 Calcium Carbonate (Tums) 500 mg BID GTB Last administered on 02/05/17 08:44; Admin Dose 500 MG; Start 02/04/17 at 11:00 Clonidine (Catapres) 0.1 mg Q6H PRN GTB BLOOD PRESSURE SBP>160; Start 02/04/17 at 11:01 Docusate Sodium (Colace Liquid Cup) 100 mg BID PRN GTB CONSTIPATION; Start at 11:30 Famotidine (Pepcid) 20 mg DAILY GTB Last administered on 02/05/17 08:44; Admin Dose 20 MG; Start 02/04/17 at 11:03 Ferrous Sulfate (Feosol Liquid Cup) 225 mg DAILY GTB Last administered on 08:44; Admin Dose 225 MG; Start 02/04/17 at 11:30 Acetaminophen/ Hydrocodone Bitart ([place] (5/325)) 1 tab Q4H PRN GTB PAIN LEVEL 4-7 Last administered on 02/04/17 18:16; Admin Dose 1 TAB; Start 02/04/17 at 11 :08 Magnesium Hydroxide (Milk Of Mag) 30 ml DAILY PRN GTB CONSTIPATION; Start 02/04 at 11:09 Methadone HCl (Methadone) 10 mg QHS PRN GTB pain Last administered on 20:44; Admin Dose 10 MG; Start 02/04/17 at 11:11 Methadone HCl (Methadone) 20 mg AM PRN GTB pain Last administered on 02/05/17 10:01; Admin Dose 20 MG; Start 02/04/17 at 11:12 Montelukast Sodium (Singulair) 10 mg QHS GTB Last administered on 02/04/17 20: 44; Admin Dose 10 MG; Start 02/04/17 at 11:12 Losartan Potassium (Cozaar) 100 mg DAILY GTB Last administered on 02/05/17 08: 44; Admin Dose 100 MG; Start 02/05/17 at 09:00 ANTHONY WOODARD MD Feb 05, 2017 10:39
--- NOTE | 2017-02-05 11:26 | PN ---
Date/Time of Note Date/Time of Note DATE: 02/05/17 TIME: 11:24 Assessment/Plan Lines/Catheters IV Catheter Type (from Nrs): PICC Line Sullivan in Place (from Nrsg): Yes Assessment/Plan Assessment/Plan [facility] Progress Note Date of Service: 02/05/17 Today's Impression & Plan: Overall stable and improved. Sacral wound appears to be healing relatively well despite known osteomyelitis of sacrum, confirmed on pathology. Osteomyelitis and other infections are likely responsible for elevated white blood cell count. No indication for acute surgical intervention. No new recommendations. With above assessment, I've recommended the following for today: 1. Cont dressing changes 2. Cont PEG tube feeds 3. Continue broad-spectrum antimicrobials as needed for osteomyelitis Nature of presenting problem: High complexity Thank you again for your great care of this very pleasant patient and wonderful family. If there are any questions, please feel free to call me at [phone]. Disclaimer: Inadvertent spelling or grammatical errors are likely due to EHR/ dictation software use and do not reflect on the overall quality of patient care. Updated clinical summary: A very-pleasant but unfortunate 81-year-old lady with multiple comorbidities including diabetes mellitus complicated by left heel decubitus ulcer as well as right below the knee amputation and paroxysmal atrial fibrillation, presenting with stage IV decubitus ulcer overlying her sacrum. Comorbidities: 1. Infected stage IV sacral decubitus pressure ulcer with possible osteomyelitis of the coccyx; s/p excisional debridement with scissors of a 10 x 5 x 3.5 cm coccygeal and sacral decubitus ulcer and removal of 30 cm of tissue including small part of the coccyx bone (ostectomy, 1x1x1 cm) and down to muscle in the upper part of the ulcer area and application of 2 g of Micro Matrix paste 2. Diabetes mellitus complicated by left heel decubitus ulcer as well as right below the knee amputation 3. Paroxysmal atrial fibrillation 4. Left upper extremity DVT with superficial thrombosis 5. Hypertension 6. Aspiration pneumonia 7. Osteomyelitis at the posterior calcaneal margin, treated with meropenem and vancomycin 8. Severe malnutrition with prealbumin 3.1 after hydration and albumin of 1.5 9. Peripheral vascular disease 10. Dementia 11. BMI 27.5 Subjective: No major events or complaints; no major abd pain and under control with medications; no n/v/d; no sob or cp; + flatus; + BM; - activity Objective: Vitals: See below Exam: GENERAL: On exam, the patient was laying in bed and appeared to be comfortable and in no acute distress. ABDOMEN: Soft, nontender and nondistended. Incision dressings are clean, dry and intact without any evidence of erythema, edema, discharge, or hernia. There are no peritoneal signs or guarding. PEG dressing clean and tube feeds ongoing. I reviewed the recent pictures from the sacral wound from 02/02/2017. There was presence of nice beefy red granulation tissue forming in the cavity and there was no obvious evidence of any necrotic material that needed excisional debridement. SKIN: Skin appears to be pink and feels warm to touch. NEUROLOGIC: Patient is arousable and follows simple commands appropriately. Exam/Review of Systems Vital Signs Vitals Vital Signs Date Time Temp Pulse Resp B/P Pulse Ox O2 Delivery O2 Flow Rate FiO2 02/05/17 07:55 98.7 76 18 140/50 100 02/04/17 20:00 Nasal Cannula 2.0 Intake and Output 02/04/17 02/04/17 02/05/17 15:00 23:00 07:00 Intake Total 150 ml 1260 ml 590 ml Output Total 450 ml 500 ml Balance 150 ml 810 ml 90 ml Results Result Diagram: 02/05/17 0439 02/03/17 0439 OMAR HINOJOSA M.D. Feb 05, 2017 11:26
--- NOTE | 2017-02-05 12:05 | CONS ---
Date/Time of Note Date/Time of Note DATE: 02/05/17 TIME: 12:02 Assessment/Plan Assessment/Plan Additional Assessment/Plan Sacral decubiti DVT of left upper extremity History of paroxysmal atrial fibrillation Preserved ejection fraction Peripheral arterial disease -Hemoglobin lower today, if hemoglobin trend continues to decrease, would likely need to discontinue Eliquis. Given patient on anticoagulation, would DC aspirin if no contraindication. Blood pressure trend overall remains stable. Consultation Date/Type/Reason Admit Date/Time Jan 15, 2017 at 14:33 Initial Consult Date 01/19/17 Type of Consultation: cv Referring Provider: RIDGE MATTHEWS MD 24 HR Interval Summary Free Text/Dictation Patient seen and examined Exam/Review of Systems Vital Signs Vitals Vital Signs Date Time Temp Pulse Resp B/P Pulse Ox O2 Delivery O2 Flow Rate FiO2 02/05/17 07:55 98.7 76 18 140/50 100 02/04/17 20:00 Nasal Cannula 2.0 Intake and Output 02/04/17 02/04/17 02/05/17 15:00 23:00 07:00 Intake Total 150 ml 1260 ml 590 ml Output Total 450 ml 500 ml Balance 150 ml 810 ml 90 ml Exam Sleeping, no apparent distress Head: normocephalic Respiratory: other (Coarse breath sounds bilaterally, no wheezing) Cardiovascular: other (S1-S2 heard), regular rate and rhythm Gastrointestinal: bowel sounds, non-tender, soft Extremities: edema Results Result Diagram: 02/05/17 0439 02/03/17 0439 Results 24 hrs Laboratory Tests Test 02/04/17 13:35 02/04/17 17:59 02/04/17 20:55 02/05/17 01:00 Bedside Glucose 164 140 199 202 Test 02/05/17 04:39 02/05/17 05:36 02/05/17 08:42 White Blood Count 13.3 H Red Blood Count 2.90 L Hemoglobin 7.9 L Hematocrit 25.9 L Mean Corpuscular Volume 89.3 Mean Corpuscular Hemoglobin 27.2 L Mean Corpuscular Hemoglobin Concent 30.5 L Red Cell Distribution Width 16.2 H Platelet Count 279 Mean Platelet Volume 10.1 Neutrophils % 54.1 Lymphocytes % 30.2 Monocytes % 8.7 Eosinophils % 5.6 Basophils % 0.6 Nucleated Red Blood Cells % 0.0 Neutrophils # 7.2 Lymphocytes # 4.0 H Monocytes # 1.2 H Eosinophils # 0.7 H Basophils # 0.1 Nucleated Red Blood Cells # 0.0 Bedside Glucose 123 149 Medications Medications Current Medications Ondansetron HCl (Zofran Inj) 4 mg Q6H PRN IV NAUSEA AND/OR VOMITING; Start at 16:30 IV Flush (NS 10 ml) 10 ml PRN PRN IV IV PROTOCOL; Start 01/15/17 at 18:30 Miscellaneous Information 1 ea NOTE XX ; Start 01/15/17 at 19:00 Glucose (Glutose) 15 gm Q15M PRN PO DECREASED GLUCOSE; Start 01/15/17 at 19:00 Glucose (Glutose) 22.5 gm Q15M PRN PO DECREASED GLUCOSE; Start 01/15/17 at 19: 00 Dextrose (D50w Syringe) 25 ml Q15M PRN IV DECREASED GLUCOSE Last administered on 01/21/17 20:37; Admin Dose 25 ML; Start 01/15/17 at 19:00 Dextrose (D50w Syringe) 50 ml Q15M PRN IV DECREASED GLUCOSE; Start 01/15/17 at 19:00 Glucagon (Glucagen) 1 mg Q15M PRN IM DECREASED GLUCOSE; Start 01/15/17 at 19:00 Glucose (Glutose) 15 gm Q15M PRN BUCCAL DECREASED GLUCOSE Last administered on 01/21/17 19:53; Admin Dose 15 GM; Start 01/15/17 at 19:00 Diagnostic Test (Pha) (Accu-Chek) 1 ea 02 XX Last administered on 01/29/17 01: 36; Admin Dose 1 EA; Start 01/16/17 at 02:00 Miscellaneous Information (Pending Santyl Order For Wound Care) This patient jean baptiste... PRN PRN XX WOUND CARE; Start 01/15/17 at 22:00 Collagenase (Santyl) 1 applic DAILY TOP Last administered on 02/03/17 08:30; Admin Dose 1 APPLIC; Start 01/16/17 at 21:00 Hydralazine HCl (Apresoline) 10 mg Q6 PRN IV ELEVATED BLOOD PRESSURE Last administered on 01/17/17 03:05; Admin Dose 10 MG; Start 01/17/17 at 03:00 Acetaminophen (Tylenol Supp) 650 mg Q6H PRN [place] FEVER GREATER THAN 100.6 Last administered on 01/17/17 07:26; Admin Dose 650 MG; Start 01/17/17 at 07:00 Mupirocin (Bactroban) 1 applic BID TOP Last administered on 02/05/17 09:00; Admin Dose 1 APPLIC; Start 01/17/17 at 11:00 Nystatin (Nystatin Powder) 1 applic BID TOP Last administered on 02/05/17 09: 00; Admin Dose 1 APPLIC; Start 01/18/17 at 21:00 Bisacodyl (Dulcolax Supp) 10 mg BID PRN [place] CONSTIPATION; Start 01/19/17 at 12: 00 Sodium Biphosphate/ Sodium Phosphate 133 ml 133 ml BID PRN [place] CONSTIPATION; Start 01/19/17 at 12:00 Meropenem/Sodium Chloride (Merrem 1 Gm/50 ml (Pmx)) 50 ml @ 100 mls/hr Q8 IVPB Last administered on 02/05/17 05:33; Admin Dose 100 MLS/HR; Start 01/19/17 at 15:00 Zolpidem Tartrate (Ambien) 10 mg HS PRN PO INSOMNIA Last administered on 23:27; Admin Dose 10 MG; Start 01/21/17 at 13:30 IV Flush (NS 10 ml) 10 ml PRN PRN IV IV PROTOCOL; Start 01/21/17 at 19:00 Insulin Human NPH (Humulin N) 10 unit BID@08,20 SC Last administered on 08:47; Admin Dose 10 UNIT; Start 01/22/17 at 08:00 Ascorbic Acid (Vitamin C) 500 mg BID GTB Last administered on 02/05/17 08:44; Admin Dose 500 MG; Start 01/23/17 at 21:00 Multivitamins (Multivitamin) 30 ml DAILY GTB Last administered on 02/05/17 08: 44; Admin Dose 30 ML; Start 01/23/17 at 17:00 Insulin Aspart (Novolog Insulin Pen) NOVOLOG *MODERATE* ALGORITHM Q4 SC Last administered on 02/05/17 08:53; Admin Dose 2 UNIT; Start 01/27/17 at 17:00 Neomycin/ Polymyxin/ Bacitracin (Neosporin Topical Oint) 1 applic BID TOP Last administered on 02/05/17 09:00; Admin Dose 1 APPLIC; Start 01/28/17 at 09:00 Hydrogen Peroxide 1 applic 1 applic BID TOP Last administered on 02/05/17 09: 01; Admin Dose 1 APPLIC; Start 01/28/17 at 09:00 Tigecycline 50 mg/ Sodium Chloride 100 ml @ 200 mls/hr Q12 IVPB Last administered on 02/05/17 08:43; Admin Dose 200 MLS/HR; Start 01/29/17 at 21:00 Fluconazole/ Sodium Chloride (Diflucan 100 Mg/ NS (Pmx)) 50 ml @ 50 mls/hr Q24H IVPB Last administered on 02/04/17 22:15; Admin Dose 50 MLS/HR; Start at 20:30; Stop 02/11/17 at 20:30 Acetaminophen (Tylenol Tab) 650 mg Q6H PRN GTB PAIN LEVEL 1-3 OR FEVER; Start 02/04/17 at 10:58 Apixaban (Eliquis) 5 mg BID GTB Last administered on 02/05/17 08:44; Admin Dose 5 MG; Start 02/04/17 at 10:59 Aspirin (Aspirin) 81 mg DAILY GTB Last administered on 02/05/17 08:44; Admin Dose 81 MG; Start 02/04/17 at 11:00 Calcium Carbonate (Tums) 500 mg BID GTB Last administered on 02/05/17 08:44; Admin Dose 500 MG; Start 02/04/17 at 11:00 Clonidine (Catapres) 0.1 mg Q6H PRN GTB BLOOD PRESSURE SBP>160; Start 02/04/17 at 11:01 Docusate Sodium (Colace Liquid Cup) 100 mg BID PRN GTB CONSTIPATION; Start at 11:30 Famotidine (Pepcid) 20 mg DAILY GTB Last administered on 02/05/17 08:44; Admin Dose 20 MG; Start 02/04/17 at 11:03 Ferrous Sulfate (Feosol Liquid Cup) 225 mg DAILY GTB Last administered on 08:44; Admin Dose 225 MG; Start 02/04/17 at 11:30 Acetaminophen/ Hydrocodone Bitart ([place] (5/325)) 1 tab Q4H PRN GTB PAIN LEVEL 4-7 Last administered on 02/04/17 18:16; Admin Dose 1 TAB; Start 02/04/17 at 11 :08 Magnesium Hydroxide (Milk Of Mag) 30 ml DAILY PRN GTB CONSTIPATION; Start 02/04 at 11:09 Methadone HCl (Methadone) 10 mg QHS PRN GTB pain Last administered on 20:44; Admin Dose 10 MG; Start 02/04/17 at 11:11 Methadone HCl (Methadone) 20 mg AM PRN GTB pain Last administered on 02/05/17 10:01; Admin Dose 20 MG; Start 02/04/17 at 11:12 Montelukast Sodium (Singulair) 10 mg QHS GTB Last administered on 02/04/17 20: 44; Admin Dose 10 MG; Start 02/04/17 at 11:12 Losartan Potassium (Cozaar) 100 mg DAILY GTB Last administered on 02/05/17 08: 44; Admin Dose 100 MG; Start 02/05/17 at 09:00 Tucker Jacome DO Feb 05, 2017 12:05
[2017-02-05] MEDS: HYDROCODONE/APAP (5/325) TAB GTB PRN (13:21)
[2017-02-05 14:24] VITALS: BP 112/58; RESP 18
[2017-02-05 15:22] LABS: HEMOGLOBIN 7.9 g/dl (12.0-16.0)
--- NOTE | 2017-02-05 17:37 | PN ---
Date/Time of Note Date/Time of Note DATE: 02/05/17 TIME: 17:33 Assessment/Plan VTE Prophylaxis VTE Prophylaxis Intervention: other Lines/Catheters IV Catheter Type (from Nrsg): PICC Line Central line still needed: Yes Urinary Cath still in place: Yes Reason Cath still needed: skin wounds contaminated by urine Assessment/Plan Assessment/Plan 02/05 focus lab system is down and it has delayed the expanded sensi's for acinetobacter maintain merrem/tigecycline for now --hgb 7.9 transfusine 1u prbc sacral stage IV decub, growing proteus and ecoli and s.aureus. on merrem/vanco , being treated by ID. 02/19 debrided and eval for osteo. called ortho- they report that nothing for them to do regarding fx or osteo of sacrum. wbc improving. -path report +osteo. ortho called and will not treat. - vre grew. now on tigecycline/merrem. -if wound does not improve, ID is recommending diverting colostomy.---wound is mildly better. multi bugs growing. ID deciding if any changes of med. wbc has cont to improve. -02/04 tm 100.1 with rising wbc. unclear etiology, poor appetite- may be due to pain meds. for the next 24 hours will cont and then try to extend time between doses and also decrease dose. gtube in place. pt is allowed p.o. intake with aspiration precautions mentation better with less pain med. will open eyes and answer questions today. pain controlled with methadone. will consider if able to decrease the am dose mrsa nares on bactroban nares left heal osteo- pod treating htn- stable today. dmII since gtube feeding, adjusting the insulin. doing well accu check stable. paroxysmal afib on last admission- occurred during sepsis and intubation. pt changed to elliquis. stable h/o left dvt of UE. now on elliquis. cont til dvt resolves. diarrhea- pt reporting , sending off c.diff study. d/c planning has pt getting rdy for heard [employer] but with rise in wbc and febrile , less likely to be able to go tomorrow. Subjective 24 Hr Interval Summary Free Text/Dictation hgb 7.9 redraw from arm and still hgb 7.9 will transfuse. pt had 1 dose norco and is completely sedated. wbc mild lower 13. Exam/Review of Systems Vital Signs Vitals Vital Signs Date Time Temp Pulse Resp B/P Pulse Ox O2 Delivery O2 Flow Rate FiO2 02/05/17 14:24 98.3 76 18 112/58 100 02/05/17 09:30 Nasal Cannula 2.0 Intake and Output 02/04/17 02/04/17 02/05/17 15:00 23:00 07:00 Intake Total 150 ml 1260 ml 590 ml Output Total 450 ml 500 ml Balance 150 ml 810 ml 90 ml Results Result Diagram: 02/05/17 1445 02/03/17 0439 Results 24 hrs Laboratory Tests Test 02/04/17 17:59 02/04/17 20:55 02/05/17 01:00 02/05/17 04:39 Bedside Glucose 140 199 202 White Blood Count 13.3 H Red Blood Count 2.90 L Hemoglobin 7.9 L Hematocrit 25.9 L Mean Corpuscular Volume 89.3 Mean Corpuscular Hemoglobin 27.2 L Mean Corpuscular Hemoglobin Concent 30.5 L Red Cell Distribution Width 16.2 H Platelet Count 279 Mean Platelet Volume 10.1 Neutrophils % 54.1 Lymphocytes % 30.2 Monocytes % 8.7 Eosinophils % 5.6 Basophils % 0.6 Nucleated Red Blood Cells % 0.0 Neutrophils # 7.2 Lymphocytes # 4.0 H Monocytes # 1.2 H Eosinophils # 0.7 H Basophils # 0.1 Nucleated Red Blood Cells # 0.0 Test 02/05/17 05:36 02/05/17 08:42 02/05/17 13:17 02/05/17 14:45 Bedside Glucose 123 149 142 Hemoglobin 7.9 L Hematocrit 26.0 L Test 02/05/17 16:36 Bedside Glucose 115 Medications Medications Current Medications Ondansetron HCl (Zofran Inj) 4 mg Q6H PRN IV NAUSEA AND/OR VOMITING; Start at 16:30 IV Flush (NS 10 ml) 10 ml PRN PRN IV IV PROTOCOL; Start 01/15/17 at 18:30 Miscellaneous Information 1 ea NOTE XX ; Start 01/15/17 at 19:00 Glucose (Glutose) 15 gm Q15M PRN PO DECREASED GLUCOSE; Start 01/15/17 at 19:00 Glucose (Glutose) 22.5 gm Q15M PRN PO DECREASED GLUCOSE; Start 01/15/17 at 19: 00 Dextrose (D50w Syringe) 25 ml Q15M PRN IV DECREASED GLUCOSE Last administered on 01/21/17 20:37; Admin Dose 25 ML; Start 01/15/17 at 19:00 Dextrose (D50w Syringe) 50 ml Q15M PRN IV DECREASED GLUCOSE; Start 01/15/17 at 19:00 Glucagon (Glucagen) 1 mg Q15M PRN IM DECREASED GLUCOSE; Start 01/15/17 at 19:00 Glucose (Glutose) 15 gm Q15M PRN BUCCAL DECREASED GLUCOSE Last administered on 01/21/17 19:53; Admin Dose 15 GM; Start 01/15/17 at 19:00 Diagnostic Test (Pha) (Accu-Chek) 1 ea 02 XX Last administered on 01/29/17 01: 36; Admin Dose 1 EA; Start 01/16/17 at 02:00 Miscellaneous Information (Pending Santyl Order For Wound Care) This patient jean baptiste... PRN PRN XX WOUND CARE; Start 01/15/17 at 22:00 Collagenase (Santyl) 1 applic DAILY TOP Last administered on 02/03/17 08:30; Admin Dose 1 APPLIC; Start 01/16/17 at 21:00 Hydralazine HCl (Apresoline) 10 mg Q6 PRN IV ELEVATED BLOOD PRESSURE Last administered on 01/17/17 03:05; Admin Dose 10 MG; Start 01/17/17 at 03:00 Acetaminophen (Tylenol Supp) 650 mg Q6H PRN [place] FEVER GREATER THAN 100.6 Last administered on 01/17/17 07:26; Admin Dose 650 MG; Start 01/17/17 at 07:00 Mupirocin (Bactroban) 1 applic BID TOP Last administered on 02/05/17 09:00; Admin Dose 1 APPLIC; Start 01/17/17 at 11:00 Nystatin (Nystatin Powder) 1 applic BID TOP Last administered on 02/05/17 09: 00; Admin Dose 1 APPLIC; Start 01/18/17 at 21:00 Bisacodyl (Dulcolax Supp) 10 mg BID PRN [place] CONSTIPATION; Start 01/19/17 at 12: 00 Sodium Biphosphate/ Sodium Phosphate 133 ml 133 ml BID PRN [place] CONSTIPATION; Start 01/19/17 at 12:00 Meropenem/Sodium Chloride (Merrem 1 Gm/50 ml (Pmx)) 50 ml @ 100 mls/hr Q8 IVPB Last administered on 02/05/17 13:19; Admin Dose 100 MLS/HR; Start 01/19/17 at 15:00 Zolpidem Tartrate (Ambien) 10 mg HS PRN PO INSOMNIA Last administered on 23:27; Admin Dose 10 MG; Start 01/21/17 at 13:30 IV Flush (NS 10 ml) 10 ml PRN PRN IV IV PROTOCOL; Start 01/21/17 at 19:00 Insulin Human NPH (Humulin N) 10 unit BID@08,20 SC Last administered on 08:47; Admin Dose 10 UNIT; Start 01/22/17 at 08:00 Ascorbic Acid (Vitamin C) 500 mg BID GTB Last administered on 02/05/17 08:44; Admin Dose 500 MG; Start 01/23/17 at 21:00 Multivitamins (Multivitamin) 30 ml DAILY GTB Last administered on 02/05/17 08: 44; Admin Dose 30 ML; Start 01/23/17 at 17:00 Insulin Aspart (Novolog Insulin Pen) NOVOLOG *MODERATE* ALGORITHM Q4 SC Last administered on 02/05/17 13:19; Admin Dose 2 UNIT; Start 01/27/17 at 17:00 Neomycin/ Polymyxin/ Bacitracin (Neosporin Topical Oint) 1 applic BID TOP Last administered on 02/05/17 09:00; Admin Dose 1 APPLIC; Start 01/28/17 at 09:00 Hydrogen Peroxide 1 applic 1 applic BID TOP Last administered on 02/05/17 09: 01; Admin Dose 1 APPLIC; Start 01/28/17 at 09:00 Tigecycline 50 mg/ Sodium Chloride 100 ml @ 200 mls/hr Q12 IVPB Last administered on 02/05/17 08:43; Admin Dose 200 MLS/HR; Start 01/29/17 at 21:00 Fluconazole/ Sodium Chloride (Diflucan 100 Mg/ NS (Pmx)) 50 ml @ 50 mls/hr Q24H IVPB Last administered on 02/04/17 22:15; Admin Dose 50 MLS/HR; Start at 20:30; Stop 02/11/17 at 20:30 Acetaminophen (Tylenol Tab) 650 mg Q6H PRN GTB PAIN LEVEL 1-3 OR FEVER; Start 02/04/17 at 10:58 Apixaban (Eliquis) 5 mg BID GTB Last administered on 02/05/17 08:44; Admin Dose 5 MG; Start 02/04/17 at 10:59 Calcium Carbonate (Tums) 500 mg BID GTB Last administered on 02/05/17 08:44; Admin Dose 500 MG; Start 02/04/17 at 11:00 Clonidine (Catapres) 0.1 mg Q6H PRN GTB BLOOD PRESSURE SBP>160; Start 02/04/17 at 11:01 Docusate Sodium (Colace Liquid Cup) 100 mg BID PRN GTB CONSTIPATION; Start at 11:30 Famotidine (Pepcid) 20 mg DAILY GTB Last administered on 02/05/17 08:44; Admin Dose 20 MG; Start 02/04/17 at 11:03 Ferrous Sulfate (Feosol Liquid Cup) 225 mg DAILY GTB Last administered on 08:44; Admin Dose 225 MG; Start 02/04/17 at 11:30 Acetaminophen/ Hydrocodone Bitart ([place] (5/325)) 1 tab Q4H PRN GTB PAIN LEVEL 4-7 Last administered on 02/05/17 13:21; Admin Dose 1 TAB; Start 02/04/17 at 11 :08 Magnesium Hydroxide (Milk Of Mag) 30 ml DAILY PRN GTB CONSTIPATION; Start 02/04 at 11:09 Methadone HCl (Methadone) 10 mg QHS PRN GTB pain Last administered on 20:44; Admin Dose 10 MG; Start 02/04/17 at 11:11 Methadone HCl (Methadone) 20 mg AM PRN GTB pain Last administered on 02/05/17 10:01; Admin Dose 20 MG; Start 02/04/17 at 11:12 Montelukast Sodium (Singulair) 10 mg QHS GTB Last administered on 02/04/17 20: 44; Admin Dose 10 MG; Start 02/04/17 at 11:12 Losartan Potassium (Cozaar) 100 mg DAILY GTB Last administered on 02/05/17t 08: 44; Admin Dose 100 MG; Start 02/05/17 at 09:00 Epoetin B[place]don (Epogen (Non Esrd/Non Oncology)) 10,000 units ONCE ONCE SC ; Start 02/05/17 at 18:00; Stop 02/05/17 at 18:01; Status UNV RIDGE MATTHEWS MD Feb 05, 2017 17:37
[2017-02-05 19:50] VITALS: BP 133/71; RESP 18
[2017-02-05] MEDS ORDERED: EPOETIN 10000 UNITS/ML (NON ESRD/NON ONCOLOGY) SC ONE (20:00)
[2017-02-05] MEDS: FLUCONAZOLE 100 MG/NS (PMX) 50 ML IVPB SCH (20:07)
[2017-02-05] MEDS: MONTELUKAST 10 MG TAB GTB SCH (21:03)
[2017-02-06] MEDS: ZOLPIDEM 5 MG TAB PO PRN ×2 (00:08→23:24)
[2017-02-06] MEDS: INSULIN ASPART [NOVOLOG] 3 ML PEN SC SCH ×6 (01:00→20:54)
[2017-02-06 01:56] VITALS: BP 128/62; RESP 18
[2017-02-06] MEDS: ACCU-CHEK XX SCH (02:00)
[2017-02-06 06:14] LABS: BASOPHIL # 0.1 10^3/ul (0.0-0.1); BASOPHILS % 0.5 % (0.0-2.0); HEMATOCRIT 32.5 % (37.0-47.0); HEMOGLOBIN 10.3 g/dl (12.0-16.0); LYMPHOCYTES # 4.3 10^3/ul (0.8-2.9); LYMPHOCYTES % 31.6 % (15.0-51.0); MEAN CORPUSCULAR HEMOGLOBIN 28.1 pg (29.0-33.0); MEAN CORPUSCULAR HGB CONC 31.7 g/dl (32.0-37.0); MEAN CORPUSCULAR VOLUME 88.6 fl (82.0-101.0); MEAN PLATELET VOLUME 10.4 fl (7.4-10.4); MONOCYTE # 1.2 10^3/ul (0.3-0.9); NEUTROPHILS % 51.2 % (39.0-77.0); PLATELET COUNT 262 10^3/UL (140-415); RED BLOOD COUNT 3.67 10^6/ul (4.20-5.40); RED CELL DISTRIBUTION WIDTH 15.7 % (11.5-14.5); WHITE BLOOD COUNT 13.7 10^3/ul (4.8-10.8)
[2017-02-06] MEDS: MEROPENEM 1 GM/50ML(PMX) 50 ML IVPB SCH ×3 (06:19→23:22)
[2017-02-06] MEDS: NPH, HUMAN INSULIN ISOPHANE 3ML VIAL SC SCH ×2 (07:49→20:57)
[2017-02-06 08:00] VITALS: BP 149/65; RESP 19
[2017-02-06] MEDS: FERROUS SULFATE 60 MG/ML 5ML CUP GTB SCH (09:01)
[2017-02-06] MEDS: MULTIVITAMINS 30 ML CUP GTB SCH (09:01)
[2017-02-06] MEDS: CALCIUM CARBONATE 500 MG CHEW TAB GTB SCH ×2 (09:02→20:55)
[2017-02-06] MEDS: METHADONE 10 MG TAB GTB PRN ×2 (09:02→21:03)
[2017-02-06] MEDS: LOSARTAN 50 MG TAB GTB SCH (09:02)
[2017-02-06] MEDS: FAMOTIDINE 20 MG TAB GTB SCH (09:03)
[2017-02-06] MEDS: APIXABAN 5 MG TABLET GTB SCH ×2 (09:03→20:55)
[2017-02-06] MEDS: ASCORBIC ACID 500 MG TAB GTB SCH ×2 (09:03→20:55)
[2017-02-06] MEDS: MUPIROCIN 2% 22 GM OINT TOP SCH ×2 (09:04→20:58)
[2017-02-06] MEDS: NYSTATIN 30 GM POWDER BTL TOP SCH ×2 (09:04→21:01)
[2017-02-06] MEDS: HYDROGEN PEROXIDE 118 ML TOP SCH ×2 (09:04→21:01)
[2017-02-06] MEDS: NEOMYC/POLYMYX/BACIT 30 GM OINT TOP SCH ×2 (09:05→20:59)
[2017-02-06] MEDS: TIGECYCLINE 50 MG in SOD CHLORIDE 0.9% 100 ML IVPB SCH ×2 (09:06→22:13)
[2017-02-06] MEDS: COLLAGENASE 30 GM TUBE TOP SCH (09:07)
[2017-02-06 14:00] VITALS: BP 134/63; RESP 20
--- NOTE | 2017-02-06 15:30 | PN ---
Date/Time of Note Date/Time of Note DATE: 02/06/17 TIME: 15:19 Assessment/Plan VTE Prophylaxis VTE Prophylaxis Intervention: other Lines/Catheters IV Catheter Type (from Nrsg): PICC Line Central line still needed: Yes Urinary Cath still in place: Yes Reason Cath still needed: skin wounds contaminated by urine Assessment/Plan Assessment/Plan 02/05 focus lab system is down and it has delayed the expanded sensi's for acinetobacter---appears resist to everything but bactrim. id following maintain merrem/tigecycline for now --hgb 7.9 transfusine 1u prbc on sacral stage IV decub, growing proteus and ecoli and s.aureus. on merrem/vanco , being treated by ID. 02/19 debrided and eval for osteo. called ortho- they report that nothing for them to do regarding fx or osteo of sacrum. wbc improving. -path report +osteo. ortho called and will not treat. - vre grew. now on tigecycline/merrem. -if wound does not improve, ID is recommending diverting colostomy.---wound is mildly better. multi bugs growing. ID deciding if any changes of med. wbc has cont to improve. -currently afebrile. pulse ox documented as low but pt looks good. will recheck. poor appetite- gtube in place. pt is allowed p.o. intake with aspiration precautions mentation better with less pain med. will open eyes and answer questions today. pain controlled with methadone. will consider if able to decrease the am dose mrsa nares on bactroban nares left heal osteo- pod treating htn- stable today. dmII since gtube feeding, adjusting the insulin. doing well accu check stable. paroxysmal afib on last admission- occurred during sepsis and intubation. pt changed to elliquis. stable h/o left dvt of UE. now on elliquis. cont til dvt resolves. diarrhea- pt reporting , Exam/Review of Systems Vital Signs Vitals Vital Signs Date Time Temp Pulse Resp B/P Pulse Ox O2 Delivery O2 Flow Rate FiO2 02/06/17 14:00 98.6 82 20 134/63 65 02/05/17 20:20 Nasal Cannula 2.0 Intake and Output 02/05/17 02/05/17 02/06/17 15:00 23:00 07:00 Intake Total 150 ml 1360 ml 490 ml Output Total 700 ml 9 ml Balance 150 ml 660 ml 481 ml Results Result Diagram: 02/06/17 0457 02/03/17 0439 Results 24 hrs Laboratory Tests Test 02/05/17 16:36 02/05/17 19:59 02/05/17 21:20 02/06/17 01:15 Bedside Glucose 115 148 162 147 Test 02/06/17 04:46 02/06/17 04:57 02/06/17 07:42 02/06/17 11:42 Bedside Glucose 121 113 130 White Blood Count 13.7 H Red Blood Count 3.67 #L Hemoglobin 10.3 #L Hematocrit 32.5 #L Mean Corpuscular Volume 88.6 Mean Corpuscular Hemoglobin 28.1 L Mean Corpuscular Hemoglobin Concent 31.7 L Red Cell Distribution Width 15.7 H Platelet Count 262 Mean Platelet Volume 10.4 Neutrophils % 51.2 Lymphocytes % 31.6 Monocytes % 9.0 Eosinophils % 7.0 Basophils % 0.5 Nucleated Red Blood Cells % 0.0 Neutrophils # 7.0 Lymphocytes # 4.3 H Monocytes # 1.2 H Eosinophils # 1.0 H Basophils # 0.1 Nucleated Red Blood Cells # 0.0 Medications Medications Current Medications Ondansetron HCl (Zofran Inj) 4 mg Q6H PRN IV NAUSEA AND/OR VOMITING; Start at 16:30 IV Flush (NS 10 ml) 10 ml PRN PRN IV IV PROTOCOL; Start 01/15/17 at 18:30 Miscellaneous Information 1 ea NOTE XX ; Start 01/15/17 at 19:00 Glucose (Glutose) 15 gm Q15M PRN PO DECREASED GLUCOSE; Start 01/15/17 at 19:00 Glucose (Glutose) 22.5 gm Q15M PRN PO DECREASED GLUCOSE; Start 01/15/17 at 19: 00 Dextrose (D50w Syringe) 25 ml Q15M PRN IV DECREASED GLUCOSE Last administered on 01/21/17t 20:37; Admin Dose 25 ML; Start 01/15/17 at 19:00 Dextrose (D50w Syringe) 50 ml Q15M PRN IV DECREASED GLUCOSE; Start 01/15/17 at 19:00 Glucagon (Glucagen) 1 mg Q15M PRN IM DECREASED GLUCOSE; Start 01/15/17 at 19:00 Glucose (Glutose) 15 gm Q15M PRN BUCCAL DECREASED GLUCOSE Last administered on 01/21/17 19:53; Admin Dose 15 GM; Start 01/15/17 at 19:00 Diagnostic Test (Pha) (Accu-Chek) 1 ea 02 XX Last administered on 01/29/17 01: 36; Admin Dose 1 EA; Start 01/16/17 at 02:00 Miscellaneous Information (Pending Santyl Order For Wound Care) This patient jean baptiste... PRN PRN XX WOUND CARE; Start 01/15/17 at 22:00 Collagenase (Santyl) 1 applic DAILY TOP Last administered on 02/06/17 09:07; Admin Dose 1 APPLIC; Start 01/16/17 at 21:00 Hydralazine HCl (Apresoline) 10 mg Q6 PRN IV ELEVATED BLOOD PRESSURE Last administered on 01/17/17 03:05; Admin Dose 10 MG; Start 01/17/17 at 03:00 Acetaminophen (Tylenol Supp) 650 mg Q6H PRN [place] FEVER GREATER THAN 100.6 Last administered on 01/17/17 07:26; Admin Dose 650 MG; Start 01/17/17 at 07:00 Mupirocin (Bactroban) 1 applic BID TOP Last administered on 02/06/17 09:04; Admin Dose 1 APPLIC; Start 01/17/17 at 11:00 Nystatin (Nystatin Powder) 1 applic BID TOP Last administered on 02/06/17 09: 04; Admin Dose 1 APPLIC; Start 01/18/17 at 21:00 Bisacodyl (Dulcolax Supp) 10 mg BID PRN [place] CONSTIPATION; Start 01/19/17 at 12: 00 Sodium Biphosphate/ Sodium Phosphate 133 ml 133 ml BID PRN [place] CONSTIPATION; Start 01/19/17 at 12:00 Meropenem/Sodium Chloride (Merrem 1 Gm/50 ml (Pmx)) 50 ml @ 100 mls/hr Q8 IVPB Last administered on 02/06/17 14:29; Admin Dose 100 MLS/HR; Start 01/19/17 at 15:00 Zolpidem Tartrate (Ambien) 10 mg HS PRN PO INSOMNIA Last administered on 9/16/ 17at 00:08; Admin Dose 10 MG; Start 01/21/17 at 13:30 IV Flush (NS 10 ml) 10 ml PRN PRN IV IV PROTOCOL; Start 01/21/17 at 19:00 Insulin Human NPH (Humulin N) 10 unit BID@08,20 SC Last administered on 07:49; Admin Dose 10 UNIT; Start 01/22/17 at 08:00 Ascorbic Acid (Vitamin C) 500 mg BID GTB Last administered on 02/06/17 09:03; Admin Dose 500 MG; Start 01/23/17 at 21:00 Multivitamins (Multivitamin) 30 ml DAILY GTB Last administered on 02/06/17 09: 01; Admin Dose 30 ML; Start 01/23/17 at 17:00 Insulin Aspart (Novolog Insulin Pen) NOVOLOG *MODERATE* ALGORITHM Q4 SC Last administered on 02/05/17 13:19; Admin Dose 2 UNIT; Start 01/27/17 at 17:00 Neomycin/ Polymyxin/ Bacitracin (Neosporin Topical Oint) 1 applic BID TOP Last administered on 02/06/17 09:05; Admin Dose 1 APPLIC; Start 01/28/17 at 09:00 Hydrogen Peroxide 1 applic 1 applic BID TOP Last administered on 02/06/17 09: 04; Admin Dose 1 APPLIC; Start 01/28/17 at 09:00 Tigecycline 50 mg/ Sodium Chloride 100 ml @ 200 mls/hr Q12 IVPB Last administered on 02/06/17 09:06; Admin Dose 200 MLS/HR; Start 01/29/17 at 21:00 Fluconazole/ Sodium Chloride (Diflucan 100 Mg/ NS (Pmx)) 50 ml @ 50 mls/hr Q24H IVPB Last administered on 02/05/17 20:07; Admin Dose 50 MLS/HR; Start at 20:30; Stop 02/11/17 at 20:30 Acetaminophen (Tylenol Tab) 650 mg Q6H PRN GTB PAIN LEVEL 1-3 OR FEVER Last administered on 02/05/17 21:03; Admin Dose 650 MG; Start 02/04/17 at 10:58 Apixaban (Eliquis) 5 mg BID GTB Last administered on 02/06/17 09:03; Admin Dose 5 MG; Start 02/04/17 at 10:59 Calcium Carbonate (Tums) 500 mg BID GTB Last administered on 02/06/17 09:02; Admin Dose 500 MG; Start 02/04/17 at 11:00 Clonidine (Catapres) 0.1 mg Q6H PRN GTB BLOOD PRESSURE SBP>160; Start 02/04/17 at 11:01 Docusate Sodium (Colace Liquid Cup) 100 mg BID PRN GTB CONSTIPATION; Start at 11:30 Famotidine (Pepcid) 20 mg DAILY GTB Last administered on 02/06/17 09:03; Admin Dose 20 MG; Start 02/04/17 at 11:03 Ferrous Sulfate (Feosol Liquid Cup) 225 mg DAILY GTB Last administered on 09:01; Admin Dose 225 MG; Start 02/04/17 at 11:30 Acetaminophen/ Hydrocodone Bitart ([place] (5/325)) 1 tab Q4H PRN GTB PAIN LEVEL 4-7 Last administered on 02/05/17 13:21; Admin Dose 1 TAB; Start 02/04/17 at 11 :08 Magnesium Hydroxide (Milk Of Mag) 30 ml DAILY PRN GTB CONSTIPATION; Start 02/04 at 11:09 Methadone HCl (Methadone) 10 mg QHS PRN GTB pain Last administered on 09:02; Admin Dose 10 MG; Start 02/04/17 at 11:11 Methadone HCl (Methadone) 20 mg AM PRN GTB pain Last administered on 02/05/17 10:01; Admin Dose 20 MG; Start 02/04/17 at 11:12 Montelukast Sodium (Singulair) 10 mg QHS GTB Last administered on 02/05/17 21: 03; Admin Dose 10 MG; Start 02/04/17 at 11:12 Losartan Potassium (Cozaar) 100 mg DAILY GTB Last administered on 02/06/17 09: 02; Admin Dose 100 MG; Start 02/05/17 at 09:00 RIDGE MATTHEWS MD Feb 06, 2017 15:29
[2017-02-06] MEDS: HYDROCODONE/APAP (5/325) TAB GTB PRN (17:56)
[2017-02-06 20:00] VITALS: BP 167/70; RESP 20
[2017-02-06] MEDS: FLUCONAZOLE 100 MG/NS (PMX) 50 ML IVPB SCH (20:52)
[2017-02-06] MEDS: MONTELUKAST 10 MG TAB GTB SCH (20:55)
[2017-02-06 21:30] VITALS: BP 155/70
[2017-02-07] MEDS: INSULIN ASPART [NOVOLOG] 3 ML PEN SC SCH ×6 (00:55→21:00)
[2017-02-07] MEDS: ACCU-CHEK XX SCH (01:59)
[2017-02-07 02:00] VITALS: BP 120/54; RESP 18
[2017-02-07] MEDS: MEROPENEM 1 GM/50ML(PMX) 50 ML IVPB SCH ×3 (05:24→22:56)
[2017-02-07 05:33] LABS: ABNORMAL IP MESSAGE 1; BASOPHIL # 0.1 10^3/ul (0.0-0.1); BASOPHILS % 0.4 % (0.0-2.0); EOSINOPHILS # 0.8 10^3/ul (0.0-0.5); EOSINOPHILS % 4.9 % (0.0-7.0); HEMATOCRIT 27.2 % (37.0-47.0); HEMOGLOBIN 8.5 g/dl (12.0-16.0); LYMPHOCYTES % 32.8 % (15.0-51.0); MEAN CORPUSCULAR HEMOGLOBIN 27.6 pg (29.0-33.0); MEAN CORPUSCULAR HGB CONC 31.3 g/dl (32.0-37.0); MEAN CORPUSCULAR VOLUME 88.3 fl (82.0-101.0); MEAN PLATELET VOLUME 10.8 fl (7.4-10.4); MONOCYTE # 1.3 10^3/ul (0.3-0.9); MONOCYTES % 8.8 % (0.0-11.0); NEUTROPHILS % 52.2 % (39.0-77.0); PLATELET COUNT 254 10^3/UL (140-415); RED BLOOD COUNT 3.08 10^6/ul (4.20-5.40); RED CELL DISTRIBUTION WIDTH 16.2 % (11.5-14.5); WHITE BLOOD COUNT 15.3 10^3/ul (4.8-10.8)
[2017-02-07 05:41] LABS: POSITIVE DIFF @See below
[2017-02-07 06:04] LABS: CALCIUM 8.9 mg/dl (8.4-10.2); CREATININE 0.58 mg/dl (0.44-1.00); POTASSIUM 4.4 mmol/L (3.5-5.1)
[2017-02-07 07:51] VITALS: BP 131/64; RESP 17
[2017-02-07] MEDS: FERROUS SULFATE 60 MG/ML 5ML CUP GTB SCH (09:13)
[2017-02-07] MEDS: APIXABAN 5 MG TABLET GTB SCH ×2 (09:13→20:58)
[2017-02-07] MEDS: CALCIUM CARBONATE 500 MG CHEW TAB GTB SCH ×2 (09:13→20:58)
[2017-02-07] MEDS: MULTIVITAMINS 30 ML CUP GTB SCH (09:13)
[2017-02-07] MEDS: LOSARTAN 50 MG TAB GTB SCH (09:14)
[2017-02-07] MEDS: FAMOTIDINE 20 MG TAB GTB SCH (09:14)
[2017-02-07] MEDS: ASCORBIC ACID 500 MG TAB GTB SCH ×2 (09:14→20:58)
[2017-02-07] MEDS: METHADONE 10 MG TAB GTB PRN ×2 (09:14→20:58)
[2017-02-07] MEDS: TIGECYCLINE 50 MG in SOD CHLORIDE 0.9% 100 ML IVPB SCH ×2 (09:15→21:50)
[2017-02-07] MEDS: NPH, HUMAN INSULIN ISOPHANE 3ML VIAL SC SCH ×2 (09:17→20:53)
[2017-02-07] MEDS: MUPIROCIN 2% 22 GM OINT TOP SCH ×2 (09:22→21:00)
[2017-02-07] MEDS: HYDROGEN PEROXIDE 118 ML TOP SCH ×2 (09:22→21:00)
[2017-02-07] MEDS: COLLAGENASE 30 GM TUBE TOP SCH (09:23)
[2017-02-07] MEDS: NYSTATIN 30 GM POWDER BTL TOP SCH ×2 (09:23→21:00)
[2017-02-07] MEDS: NEOMYC/POLYMYX/BACIT 30 GM OINT TOP SCH ×2 (09:23→21:00)
[2017-02-07 14:05] VITALS: BP 143/62; PULSE 68
--- NOTE | 2017-02-07 15:58 | PN ---
Date/Time of Note Date/Time of Note DATE: 02/07/17 TIME: 15:50 Assessment/Plan VTE Prophylaxis VTE Prophylaxis Intervention: other Lines/Catheters IV Catheter Type (from Nrsg): PICC Line Central line still needed: Yes Urinary Cath still in place: Yes Reason Cath still needed: skin wounds contaminated by urine Assessment/Plan Chief Complaint/Hosp Course sedated. no discomfort . Problems: Assessment/Plan 02/07 wbc going back up and the hgb going down 02/05 focus lab system is down and it has delayed the expanded sensi's for acinetobacter---appears resist to everything but bactrim. id following maintain merrem/tigecycline for now --hgb 7.9 transfusine 1u prbc on sacral stage IV decub, growing proteus and ecoli and s.aureus. on merrem/vanco , being treated by ID. 02/19 debrided and eval for osteo. called ortho- they report that nothing for them to do regarding fx or osteo of sacrum. wbc improving. -path report +osteo. ortho called and will not treat. - vre grew. now on tigecycline/merrem. -if wound does not improve, ID is recommending diverting colostomy.---wound is mildly better. multi bugs growing. ID deciding if any changes of med. wbc has cont to improve. -currently afebrile. pulse ox documented as low but pt looks good. will recheck. poor appetite- gtube in place. pt is allowed p.o. intake with aspiration precautions mentation better with less pain med. will open eyes and answer questions today. pain controlled with methadone. will consider if able to decrease the am dose mrsa nares on bactroban nares left heal osteo- pod treating htn- stable today. dmII since gtube feeding, adjusting the insulin. doing well accu check stable. paroxysmal afib on last admission- occurred during sepsis and intubation. pt changed to elliquis. stable h/o left dvt of UE. now on elliquis. cont til dvt resolves. Exam/Review of Systems Vital Signs Vitals Vital Signs Date Time Temp Pulse Resp B/P Pulse Ox O2 Delivery O2 Flow Rate FiO2 02/07/17 14:05 68 143/62 02/07/17 02:00 98.7 18 98 02/06/17 21:00 Nasal Cannula 2.0 Intake and Output 02/06/17 02/06/17 02/07/17 14:59 22:59 06:59 Intake Total 100 ml 1360 ml 640 ml Output Total 1400 ml 600 ml Balance 100 ml -40 ml 40 ml Exam lungs cta abd soft nt Results Result Diagram: 02/07/17 0445 02/07/17 0445 Results 24 hrs Laboratory Tests Test 02/06/17 16:58 02/06/17 20:54 02/07/17 00:49 02/07/17 04:30 Bedside Glucose 152 138 196 135 Test 02/07/17 04:43 02/07/17 04:45 02/07/17 05:31 02/07/17 09:12 Erythrocyte Sedimentation Rate 61 H White Blood Count 15.3 H Red Blood Count 3.08 L Hemoglobin 8.5 L Hematocrit 27.2 L Mean Corpuscular Volume 88.3 Mean Corpuscular Hemoglobin 27.6 L Mean Corpuscular Hemoglobin Concent 31.3 L Red Cell Distribution Width 16.2 H Platelet Count 254 Mean Platelet Volume 10.8 H Neutrophils % 52.2 Lymphocytes % 32.8 Monocytes % 8.8 Eosinophils % 4.9 Basophils % 0.4 Nucleated Red Blood Cells % 0.0 Neutrophils # 8.0 H Lymphocytes # 5.0 H Monocytes # 1.3 H Eosinophils # 0.8 H Basophils # 0.1 Nucleated Red Blood Cells # 0.0 Sodium Level 137 Potassium Level 4.4 Chloride Level 102 Carbon Dioxide Level 36 H Anion Gap 3 L Blood Urea Nitrogen 35 H Creatinine 0.58 Glucose Level 122 Calcium Level 8.9 Lab Scanned Report BLOOD TRANSFUSION Bedside Glucose 156 Test 02/07/17 11:46 Bedside Glucose 130 Medications Medications Current Medications Ondansetron HCl (Zofran Inj) 4 mg Q6H PRN IV NAUSEA AND/OR VOMITING; Start at 16:30 IV Flush (NS 10 ml) 10 ml PRN PRN IV IV PROTOCOL; Start 01/15/17 at 18:30 Miscellaneous Information 1 ea NOTE XX ; Start 01/15/17 at 19:00 Glucose (Glutose) 15 gm Q15M PRN PO DECREASED GLUCOSE; Start 01/15/17 at 19:00 Glucose (Glutose) 22.5 gm Q15M PRN PO DECREASED GLUCOSE; Start 01/15/17 at 19: 00 Dextrose (D50w Syringe) 25 ml Q15M PRN IV DECREASED GLUCOSE Last administered on 01/21/17 20:37; Admin Dose 25 ML; Start 01/15/17 at 19:00 Dextrose (D50w Syringe) 50 ml Q15M PRN IV DECREASED GLUCOSE; Start 01/15/17 at 19:00 Glucagon (Glucagen) 1 mg Q15M PRN IM DECREASED GLUCOSE; Start 01/15/17 at 19:00 Glucose (Glutose) 15 gm Q15M PRN BUCCAL DECREASED GLUCOSE Last administered on 01/21/17 19:53; Admin Dose 15 GM; Start 01/15/17 at 19:00 Diagnostic Test (Pha) (Accu-Chek) 1 ea 02 XX Last administered on 01/29/17 01: 36; Admin Dose 1 EA; Start 01/16/17 at 02:00 Miscellaneous Information (Pending Santyl Order For Wound Care) This patient jean baptiste... PRN PRN XX WOUND CARE; Start 01/15/17 at 22:00 Collagenase (Santyl) 1 applic DAILY TOP Last administered on 02/07/17 09:23; Admin Dose 1 APPLIC; Start 01/16/17 at 21:00 Hydralazine HCl (Apresoline) 10 mg Q6 PRN IV ELEVATED BLOOD PRESSURE Last administered on 01/17/17 03:05; Admin Dose 10 MG; Start 01/17/17 at 03:00 Acetaminophen (Tylenol Supp) 650 mg Q6H PRN [place] FEVER GREATER THAN 100.6 Last administered on 01/17/17 07:26; Admin Dose 650 MG; Start 01/17/17 at 07:00 Mupirocin (Bactroban) 1 applic BID TOP Last administered on 02/07/17 09:22; Admin Dose 1 APPLIC; Start 01/17/17 at 11:00 Nystatin (Nystatin Powder) 1 applic BID TOP Last administered on 02/07/17 09: 23; Admin Dose 1 APPLIC; Start 01/18/17 at 21:00 Bisacodyl (Dulcolax Supp) 10 mg BID PRN [place] CONSTIPATION; Start 01/19/17 at 12: 00 Sodium Biphosphate/ Sodium Phosphate 133 ml 133 ml BID PRN [place] CONSTIPATION; Start 01/19/17 at 12:00 Meropenem/Sodium Chloride (Merrem 1 Gm/50 ml (Pmx)) 50 ml @ 100 mls/hr Q8 IVPB Last administered on 02/07/17 14:03; Admin Dose 100 MLS/HR; Start 01/19/17 at 15:00 Zolpidem Tartrate (Ambien) 10 mg HS PRN PO INSOMNIA Last administered on 23:24; Admin Dose 10 MG; Start 01/21/17 at 13:30 IV Flush (NS 10 ml) 10 ml PRN PRN IV IV PROTOCOL; Start 01/21/17 at 19:00 Insulin Human NPH (Humulin N) 10 unit BID@08,20 SC Last administered on 09:17; Admin Dose 10 UNIT; Start 01/22/17 at 08:00 Ascorbic Acid (Vitamin C) 500 mg BID GTB Last administered on 02/07/17 09:14; Admin Dose 500 MG; Start 01/23/17 at 21:00 Multivitamins (Multivitamin) 30 ml DAILY GTB Last administered on 02/07/17 09: 13; Admin Dose 30 ML; Start 01/23/17 at 17:00 Insulin Aspart (Novolog Insulin Pen) NOVOLOG *MODERATE* ALGORITHM Q4 SC Last administered on 02/07/17 09:18; Admin Dose 2 UNIT; Start 01/27/17 at 17:00 Neomycin/ Polymyxin/ Bacitracin (Neosporin Topical Oint) 1 applic BID TOP Last administered on 02/07/17 09:23; Admin Dose 1 APPLIC; Start 01/28/17 at 09:00 Hydrogen Peroxide 1 applic 1 applic BID TOP Last administered on 02/07/17 09: 22; Admin Dose 1 APPLIC; Start 01/28/17 at 09:00 Tigecycline 50 mg/ Sodium Chloride 100 ml @ 200 mls/hr Q12 IVPB Last administered on 02/07/17 09:15; Admin Dose 200 MLS/HR; Start 01/29/17 at 21:00 Fluconazole/ Sodium Chloride (Diflucan 100 Mg/ NS (Pmx)) 50 ml @ 50 mls/hr Q24H IVPB Last administered on 02/06/17 20:52; Admin Dose 50 MLS/HR; Start at 20:30; Stop 02/11/17 at 20:30 Acetaminophen (Tylenol Tab) 650 mg Q6H PRN GTB PAIN LEVEL 1-3 OR FEVER Last administered on 02/05/17 21:03; Admin Dose 650 MG; Start 02/04/17 at 10:58 Apixaban (Eliquis) 5 mg BID GTB Last administered on 02/07/17 09:13; Admin Dose 5 MG; Start 02/04/17 at 10:59 Calcium Carbonate (Tums) 500 mg BID GTB Last administered on 02/07/17 09:13; Admin Dose 500 MG; Start 02/04/17 at 11:00 Clonidine (Catapres) 0.1 mg Q6H PRN GTB BLOOD PRESSURE SBP>160; Start 02/04/17 at 11:01 Docusate Sodium (Colace Liquid Cup) 100 mg BID PRN GTB CONSTIPATION; Start at 11:30 Famotidine (Pepcid) 20 mg DAILY GTB Last administered on 02/07/17 09:14; Admin Dose 20 MG; Start 02/04/17 at 11:03 Ferrous Sulfate (Feosol Liquid Cup) 225 mg DAILY GTB Last administered on 09:13; Admin Dose 225 MG; Start 02/04/17 at 11:30 Acetaminophen/ Hydrocodone Bitart ([place] (5/325)) 1 tab Q4H PRN GTB PAIN LEVEL 4-7 Last administered on 02/06/17 17:56; Admin Dose 1 TAB; Start 02/04/17 at 11 :08 Magnesium Hydroxide (Milk Of Mag) 30 ml DAILY PRN GTB CONSTIPATION; Start 02/04 at 11:09 Methadone HCl (Methadone) 10 mg QHS PRN GTB pain Last administered on 21:03; Admin Dose 10 MG; Start 02/04/17 at 11:11 Methadone HCl (Methadone) 20 mg AM PRN GTB pain Last administered on 02/07/17 09:14; Admin Dose 20 MG; Start 02/04/17 at 11:12 Montelukast Sodium (Singulair) 10 mg QHS GTB Last administered on 02/06/17 20: 55; Admin Dose 10 MG; Start 02/04/17 at 11:12 Losartan Potassium (Cozaar) 100 mg DAILY GTB Last administered on 02/07/17t 09: 14; Admin Dose 100 MG; Start 02/05/17 at 09:00 RIDGE MATTHEWS MD Feb 07, 2017 15:58
[2017-02-07 20:00] VITALS: BP 161/66; RESP 19
[2017-02-07 20:40] VITALS: BP 154/64
[2017-02-07] MEDS: FLUCONAZOLE 100 MG/NS (PMX) 50 ML IVPB SCH (20:48)
[2017-02-07] MEDS: MONTELUKAST 10 MG TAB GTB SCH (21:01)
[2017-02-08] MEDS: ZOLPIDEM 5 MG TAB PO PRN ×2 (00:48→23:48)
[2017-02-08] MEDS: INSULIN ASPART [NOVOLOG] 3 ML PEN SC SCH ×6 (01:00→21:00)
[2017-02-08 02:00] VITALS: BP 150/83; RESP 18
[2017-02-08] MEDS: ACCU-CHEK XX SCH (02:00)
[2017-02-08] MEDS: MEROPENEM 1 GM/50ML(PMX) 50 ML IVPB SCH ×3 (05:31→22:17)
[2017-02-08 06:04] LABS: BASOPHIL # 0.1 10^3/ul (0.0-0.1); BASOPHILS % 0.5 % (0.0-2.0); EOSINOPHILS # 0.7 10^3/ul (0.0-0.5); EOSINOPHILS % 4.6 % (0.0-7.0); HEMATOCRIT 29.5 % (37.0-47.0); HEMOGLOBIN 9.2 g/dl (12.0-16.0); LYMPHOCYTES # 4.9 10^3/ul (0.8-2.9); LYMPHOCYTES % 31.3 % (15.0-51.0); MEAN CORPUSCULAR HEMOGLOBIN 27.6 pg (29.0-33.0); MEAN CORPUSCULAR HGB CONC 31.2 g/dl (32.0-37.0); MEAN CORPUSCULAR VOLUME 88.6 fl (82.0-101.0); MONOCYTE # 1.5 10^3/ul (0.3-0.9); MONOCYTES % 9.3 % (0.0-11.0); NEUTROPHIL # 8.4 10^3/ul (1.6-7.5); NEUTROPHILS % 53.6 % (39.0-77.0); PLATELET COUNT 251 10^3/UL (140-415); RED BLOOD COUNT 3.33 10^6/ul (4.20-5.40); RED CELL DISTRIBUTION WIDTH 16.4 % (11.5-14.5); WHITE BLOOD COUNT 15.7 10^3/ul (4.8-10.8)
--- NOTE | 2017-02-08 07:53 | CONS ---
Date/Time of Note Date/Time of Note DATE: 02/08/17 TIME: 07:47 Assessment/Plan Assessment/Plan Chief Complaint/Hosp Course 1) progressive sacral ulcer, surrounding cellulitis await surgical input and debridement, consider MRI depending upon surgical eval wound cx to be obtained continue with vanco/merrem check ESR, CRP in a.m. 01/17 - proteus and another GNR in wound cx continue with merrem/vanco esr and CRP are moderately elevated mrsa to nares to start bactroban await surgical input pt is more awake today and able to answer some questions in [place] 01/18 - pt persistence of fever and elevated wbc is either due to an undrained abscess or inadequate antibiotics await wound care eval and surgical debridement will order MRI scan if no wound care is delivered by tomorrow wound cx has proteus, GNR and enterococcus continue with vanco/merrem at present 01/19 - wound cx are all sensitive to current antibiotics of vanco/merrem MRI of pelvis/abd was done but results not available pt to get debridement later this am. 01/20 - s/p debridement, some bone was shaved, MRI did not show osteo await path report continue with vanco/merrem fevers and WBC improved post debridement pt will need good nutrition to heal this wound, consider g-tube if pt not eating well 01/22 - pt to get g-tube for better nutrition continue with vanco/merrem thru 02/01/17 consider doxy for 2 weeks after that path specimen did not identify bone to examine for osteo 01/25 - WBC improved today and ESR was down from 78 to 65 no new issues continue with vanco/merrrem at present thru 02/01 then po doxy for 2 weeks 01/26 - re-culture the site continue vanco/merrem 01/27 - vac pump is applied re-cx of site has GNR so far 01/28 - acinetobacter now present and addendum to path shows osteomyelitis continue with merrem change vanco to minocycline send out for sensi's for colistin, avycaz, minocycline and tigecycline 01/29 - 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 01/30 - esr was a bit better continue with tigecycline/merrem, no need for diverting colostomy at this time as stool does not appear to be contaminating the sacral wound await final send out sensi's on the acinetobacter wbc is up but tigecycline can cause elevation of wbc 02/01 - spoke to surgeon who said wound is improved, but there is farooq exposure still awaitin sensi's on the acinetobacter wbc is slowly coming down but tigecycline can cause an increase in WBC continue merrem/tigecycline 02/04 - spoke to lab and expanded sensi's to the acinetobacter should be back by tomorrow maintain merrem/tigecycline at present 02/05 focus lab system is down and it has delayed the expanded sensi's for acinetobacter maintain merrem/tigecycline for now 02/08 - Acinetobacter is resistant to colisitin, intermediate to minocycline ( PROMISE of 8) and Tigecycline PROMISE is 2 (no interpretation available but likely sensitive) continue with merrem/tigecycline thru 03/12, monitor ESR on a weekly basis wound appears to be improving and ESR has come down will add bactrim temporarily to see if it will improve her leukocytosis one of the possible side effects of tigecycline is leukocytosis though 2) L heal ulcer with eschar no surrounding redness noted on picture 3) PVD 4) recent hx of LUE DVT 5) HTN 6) leukocytosis 01/26 - get u/a and urine cx, c.dif was sent off re-culture the sacral wound site doubt a pulmonary issue 01/27 - c.dif was neg WBC has improved without change in antibiotics urine cx is NGTD (prior one was only yeast) wound cx has GNR only so far continue present management 01/28 - wound cx is now growing highly resistant acinetobacter will adjust antibiotics and await send out sensi's to verify the best regimen for pt 01/29 - wound cx also grew VRE now on merrem/tigecycline 01/30 - await final sensi' results for acinetobacter tigecycline can cause increase in the WBC 02/04 - improving, but slight fever and increase in WBC today, to continue to monitor will re-check u/a and urine cx and consider CXR 02/05 - u/a shows no pyuria, yeast in urine is not significant and does not need treatment c.dif was negative fevers and wbc improved tigecycline can cause some leukocytosis so WBC may not return to normal while on it 02/08 - will add bactrim to see if leukocytosis is due to infection no other infection appreciated other than sacral osteo, yeast in urine is a colonizer if no change with WBC after on bactrim for a week will d/c it continue merrem/tigecycline thruy 03/12, monitor ESR weekly Problems: Consultation Date/Type/Reason Admit Date/Time Jan 15, 2017 at 14:33 Initial Consult Date 01/16/17 Type of Consultation: ID Referring Provider: RIDGE MATTHEWS MD 24 HR Interval Summary Free Text/Dictation spoke to attendant and nurse no new problems no V, D, SOB Exam/Review of Systems Vital Signs Vitals Vital Signs Date Time Temp Pulse Resp B/P Pulse Ox O2 Delivery O2 Flow Rate FiO2 02/08/17 02:00 98.7 62 18 150/83 98 02/07/17 20:00 Nasal Cannula 2.0 Intake and Output 02/07/17 02/07/17 02/08/17 15:00 23:00 07:00 Intake Total 100 ml 200 ml 540 ml Output Total 850 ml Balance 100 ml 200 ml -310 ml Exam Constitutional: alert ENMT: mucosa pink and moist Respiratory: clear to auscultation Cardiovascular: regular rate and rhythm Gastrointestinal: non-tender, soft Results Result Diagram: 02/08/17 0443 02/07/17 0445 Results 24 hrs Laboratory Tests Test 02/07/17 09:12 02/07/17 11:46 02/07/17 17:51 02/07/17 20:49 Bedside Glucose 156 130 189 142 Test 02/08/17 00:53 02/08/17 04:42 02/08/17 04:43 Bedside Glucose 144 103 White Blood Count 15.7 H Red Blood Count 3.33 L Hemoglobin 9.2 L Hematocrit 29.5 L Mean Corpuscular Volume 88.6 Mean Corpuscular Hemoglobin 27.6 L Mean Corpuscular Hemoglobin Concent 31.2 L Red Cell Distribution Width 16.4 H Platelet Count 251 Mean Platelet Volume 11.0 H Neutrophils % 53.6 Lymphocytes % 31.3 Monocytes % 9.3 Eosinophils % 4.6 Basophils % 0.5 Nucleated Red Blood Cells % 0.0 Neutrophils # 8.4 H Lymphocytes # 4.9 H Monocytes # 1.5 H Eosinophils # 0.7 H Basophils # 0.1 Nucleated Red Blood Cells # 0.0 Medications Medications Current Medications Ondansetron HCl (Zofran Inj) 4 mg Q6H PRN IV NAUSEA AND/OR VOMITING; Start at 16:30 IV Flush (NS 10 ml) 10 ml PRN PRN IV IV PROTOCOL; Start 01/15/17 at 18:30 Miscellaneous Information 1 ea NOTE XX ; Start 01/15/17 at 19:00 Glucose (Glutose) 15 gm Q15M PRN PO DECREASED GLUCOSE; Start 01/15/17 at 19:00 Glucose (Glutose) 22.5 gm Q15M PRN PO DECREASED GLUCOSE; Start 01/15/17 at 19: 00 Dextrose (D50w Syringe) 25 ml Q15M PRN IV DECREASED GLUCOSE Last administered on 01/21/17 20:37; Admin Dose 25 ML; Start 01/15/17 at 19:00 Dextrose (D50w Syringe) 50 ml Q15M PRN IV DECREASED GLUCOSE; Start 01/15/17 at 19:00 Glucagon (Glucagen) 1 mg Q15M PRN IM DECREASED GLUCOSE; Start 01/15/17 at 19:00 Glucose (Glutose) 15 gm Q15M PRN BUCCAL DECREASED GLUCOSE Last administered on 01/21/17 19:53; Admin Dose 15 GM; Start 01/15/17 at 19:00 Diagnostic Test (Pha) (Accu-Chek) 1 ea 02 XX Last administered on 01/29/17 01: 36; Admin Dose 1 EA; Start 01/16/17 at 02:00 Miscellaneous Information (Pending Santyl Order For Wound Care) This patient jean baptiste... PRN PRN XX WOUND CARE; Start 01/15/17 at 22:00 Collagenase (Santyl) 1 applic DAILY TOP Last administered on 02/07/17 09:23; Admin Dose 1 APPLIC; Start 01/16/17 at 21:00 Hydralazine HCl (Apresoline) 10 mg Q6 PRN IV ELEVATED BLOOD PRESSURE Last administered on 01/17/17 03:05; Admin Dose 10 MG; Start 01/17/17 at 03:00 Acetaminophen (Tylenol Supp) 650 mg Q6H PRN [place] FEVER GREATER THAN 100.6 Last administered on 01/17/17 07:26; Admin Dose 650 MG; Start 01/17/17 at 07:00 Mupirocin (Bactroban) 1 applic BID TOP Last administered on 02/07/17 21:00; Admin Dose 1 APPLIC; Start 01/17/17 at 11:00 Nystatin (Nystatin Powder) 1 applic BID TOP Last administered on 02/07/17 21: 00; Admin Dose 1 APPLIC; Start 01/18/17 at 21:00 Bisacodyl (Dulcolax Supp) 10 mg BID PRN [place] CONSTIPATION; Start 01/19/17 at 12: 00 Sodium Biphosphate/ Sodium Phosphate 133 ml 133 ml BID PRN [place] CONSTIPATION; Start 01/19/17 at 12:00 Meropenem/Sodium Chloride (Merrem 1 Gm/50 ml (Pmx)) 50 ml @ 100 mls/hr Q8 IVPB Last administered on 02/08/17 05:31; Admin Dose 100 MLS/HR; Start 01/19/17 at 15:00 Zolpidem Tartrate (Ambien) 10 mg HS PRN PO INSOMNIA Last administered on 00:48; Admin Dose 10 MG; Start 01/21/17 at 13:30 IV Flush (NS 10 ml) 10 ml PRN PRN IV IV PROTOCOL; Start 01/21/17 at 19:00 Insulin Human NPH (Humulin N) 10 unit BID@08,20 SC Last administered on 20:53; Admin Dose 10 UNIT; Start 01/22/17 at 08:00 Ascorbic Acid (Vitamin C) 500 mg BID GTB Last administered on 02/07/17 20:58; Admin Dose 500 MG; Start 01/23/17 at 21:00 Multivitamins (Multivitamin) 30 ml DAILY GTB Last administered on 02/07/17 09: 13; Admin Dose 30 ML; Start 01/23/17 at 17:00 Insulin Aspart (Novolog Insulin Pen) NOVOLOG *MODERATE* ALGORITHM Q4 SC Last administered on 02/07/17 17:54; Admin Dose 4 UNIT; Start 01/27/17 at 17:00 Neomycin/ Polymyxin/ Bacitracin (Neosporin Topical Oint) 1 applic BID TOP Last administered on 02/07/17 21:00; Admin Dose 1 APPLIC; Start 01/28/17 at 09:00 Hydrogen Peroxide 1 applic 1 applic BID TOP Last administered on 02/07/17 21: 00; Admin Dose 1 APPLIC; Start 01/28/17 at 09:00 Tigecycline 50 mg/ Sodium Chloride 100 ml @ 200 mls/hr Q12 IVPB Last administered on 02/07/17 21:50; Admin Dose 200 MLS/HR; Start 01/29/17 at 21:00 Fluconazole/ Sodium Chloride (Diflucan 100 Mg/ NS (Pmx)) 50 ml @ 50 mls/hr Q24H IVPB Last administered on 02/07/17 20:48; Admin Dose 50 MLS/HR; Start at 20:30; Stop 02/11/17 at 20:30 Acetaminophen (Tylenol Tab) 650 mg Q6H PRN GTB PAIN LEVEL 1-3 OR FEVER Last administered on 02/05/17 21:03; Admin Dose 650 MG; Start 02/04/17 at 10:58 Apixaban (Eliquis) 5 mg BID GTB Last administered on 02/07/17 20:58; Admin Dose 5 MG; Start 02/04/17 at 10:59 Calcium Carbonate (Tums) 500 mg BID GTB Last administered on 02/07/17 20:58; Admin Dose 500 MG; Start 02/04/17 at 11:00 Clonidine (Catapres) 0.1 mg Q6H PRN GTB BLOOD PRESSURE SBP>160; Start 02/04/17 at 11:01 Docusate Sodium (Colace Liquid Cup) 100 mg BID PRN GTB CONSTIPATION; Start at 11:30 Famotidine (Pepcid) 20 mg DAILY GTB Last administered on 02/07/17 09:14; Admin Dose 20 MG; Start 02/04/17 at 11:03 Ferrous Sulfate (Feosol Liquid Cup) 225 mg DAILY GTB Last administered on 09:13; Admin Dose 225 MG; Start 02/04/17 at 11:30 Acetaminophen/ Hydrocodone Bitart ([place] (5/325)) 1 tab Q4H PRN GTB PAIN LEVEL 4-7 Last administered on 02/06/17 17:56; Admin Dose 1 TAB; Start 02/04/17 at 11 :08 Magnesium Hydroxide (Milk Of Mag) 30 ml DAILY PRN GTB CONSTIPATION; Start 02/04 at 11:09 Methadone HCl (Methadone) 10 mg QHS PRN GTB pain Last administered on 20:58; Admin Dose 10 MG; Start 02/04/17 at 11:11 Methadone HCl (Methadone) 20 mg AM PRN GTB pain Last administered on 02/07/17 09:14; Admin Dose 20 MG; Start 02/04/17 at 11:12 Montelukast Sodium (Singulair) 10 mg QHS GTB Last administered on 02/07/17 21: 01; Admin Dose 10 MG; Start 02/04/17 at 11:12 Losartan Potassium (Cozaar) 100 mg DAILY GTB Last administered on 02/07/17 09: 14; Admin Dose 100 MG; Start 02/05/17 at 09:00 ANTHONY WOODARD MD Feb 08, 2017 07:53
[2017-02-08 08:24] VITALS: BP 127/53; RESP 18
[2017-02-08] MEDS: NPH, HUMAN INSULIN ISOPHANE 3ML VIAL SC SCH ×2 (08:36→20:35)
[2017-02-08] MEDS: COLLAGENASE 30 GM TUBE TOP SCH ×2 (09:00→19:15)
[2017-02-08] MEDS: ASCORBIC ACID 500 MG TAB GTB SCH ×2 (09:37→20:37)
[2017-02-08] MEDS: TRIMETHOPRIM/SULFAMETHOX (DS) TAB GTB SCH ×2 (09:37→20:37)
[2017-02-08] MEDS: FAMOTIDINE 20 MG TAB GTB SCH (09:37)
[2017-02-08] MEDS: CALCIUM CARBONATE 500 MG CHEW TAB GTB SCH ×2 (09:38→20:37)
[2017-02-08] MEDS: MULTIVITAMINS 30 ML CUP GTB SCH (09:38)
[2017-02-08] MEDS: APIXABAN 5 MG TABLET GTB SCH ×2 (09:38→20:37)
[2017-02-08] MEDS: FERROUS SULFATE 60 MG/ML 5ML CUP GTB SCH (09:38)
[2017-02-08] MEDS: LOSARTAN 50 MG TAB GTB SCH (09:38)
[2017-02-08] MEDS: METHADONE 10 MG TAB GTB PRN ×2 (09:40→20:43)
[2017-02-08] MEDS: NYSTATIN 30 GM POWDER BTL TOP SCH ×2 (09:41→20:38)
[2017-02-08] MEDS: NEOMYC/POLYMYX/BACIT 30 GM OINT TOP SCH ×2 (09:41→20:39)
[2017-02-08] MEDS: HYDROGEN PEROXIDE 118 ML TOP SCH ×2 (09:42→20:39)
[2017-02-08] MEDS: MUPIROCIN 2% 22 GM OINT TOP SCH ×2 (09:42→20:39)
[2017-02-08] MEDS: TIGECYCLINE 50 MG in SOD CHLORIDE 0.9% 100 ML IVPB SCH ×2 (09:49→23:00)
--- NOTE | 2017-02-08 14:07 | PN ---
Date/Time of Note Date/Time of Note DATE: 02/08/17 TIME: 14:02 Assessment/Plan VTE Prophylaxis VTE Prophylaxis Intervention: other Lines/Catheters IV Catheter Type (from Nrsg): PICC Line Central line still needed: Yes Urinary Cath still in place: Yes Reason Cath still needed: skin wounds contaminated by urine Assessment/Plan Chief Complaint/Hosp Course sedated. no discomfort . Problems: Assessment/Plan 02/07 wbc going back up and the hgb going down 02/08 wbc still going up. pt sedated. nurse and family says always sedated. 02/05 focus lab system is down and it has delayed the expanded sensi's for acinetobacter---appears resist to everything but bactrim. id following maintain merrem/tigecycline for now --hgb 7.9 transfusine 1u prbc on sacral stage IV decub, growing proteus and ecoli and s.aureus. on merrem/vanco , being treated by ID. 02/19 debrided and eval for osteo. called ortho- they report that nothing for them to do regarding fx or osteo of sacrum. wbc improving. -path report +osteo. ortho called and will not treat. - vre grew. now on tigecycline/merrem. -if wound does not improve, ID is recommending diverting colostomy.---wound is mildly better. multi bugs growing. ID deciding if any changes of med. wbc has cont to improve. -currently afebrile. -----ID reports 02/08 - Acinetobacter is resistant to colisitin, intermediate to minocycline (PROMISE of 8) and Tigecycline PROMISE is 2 (no interpretation available but likely sensitive) continue with merrem/tigecycline thru 03/12, monitor ESR on a weekly basis wound appears to be improving and ESR has come down will add bactrim temporarily to see if it will improve her leukocytosis one of the possible side effects of tigecycline is leukocytosis though poor appetite- gtube in place. pt is allowed p.o. intake with aspiration precautions. not oral eating much since sedated. mentation better with less pain med. will open eyes and answer questions today. pain controlled with methadone. will consider if able to decrease the am dose. pt too sedated. will decrease morning methadone. pt needs to be awake , with some pain otherwise subsequent pneumo. 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 dmII since gtube feeding, adjusting the insulin. doing well accu check stable. paroxysmal afib on last admission- occurred during sepsis and intubation. pt changed to elliquis. stable h/o left dvt of UE. now on elliquis. cont til dvt resolves. Subjective 24 Hr Interval Summary Free Text/Dictation pt sedated during foot re-wrap, nurse and family reports sedated during the day. Exam/Review of Systems Vital Signs Vitals Vital Signs Date Time Temp Pulse Resp B/P Pulse Ox O2 Delivery O2 Flow Rate FiO2 02/08/17 08:24 98.4 78 18 127/53 98 02/07/17 20:00 Nasal Cannula 2.0 Intake and Output 02/07/17 02/07/17 02/08/17 15:00 23:00 07:00 Intake Total 100 ml 200 ml 540 ml Output Total 850 ml Balance 100 ml 200 ml -310 ml Results Result Diagram: 02/08/17 0443 02/07/17 0445 Results 24 hrs Laboratory Tests Test 02/07/17 17:51 02/07/17 20:49 02/08/17 00:53 02/08/17 04:42 Bedside Glucose 189 142 144 103 Test 02/08/17 04:43 02/08/17 08:36 02/08/17 09:43 02/08/17 13:10 White Blood Count 15.7 H Red Blood Count 3.33 L Hemoglobin 9.2 L Hematocrit 29.5 L Mean Corpuscular Volume 88.6 Mean Corpuscular Hemoglobin 27.6 L Mean Corpuscular Hemoglobin Concent 31.2 L Red Cell Distribution Width 16.4 H Platelet Count 251 Mean Platelet Volume 11.0 H Neutrophils % 53.6 Lymphocytes % 31.3 Monocytes % 9.3 Eosinophils % 4.6 Basophils % 0.5 Nucleated Red Blood Cells % 0.0 Neutrophils # 8.4 H Lymphocytes # 4.9 H Monocytes # 1.5 H Eosinophils # 0.7 H Basophils # 0.1 Nucleated Red Blood Cells # 0.0 Bedside Glucose 121 134 131 Medications Medications Current Medications Ondansetron HCl (Zofran Inj) 4 mg Q6H PRN IV NAUSEA AND/OR VOMITING; Start at 16:30 IV Flush (NS 10 ml) 10 ml PRN PRN IV IV PROTOCOL; Start 01/15/17 at 18:30 Miscellaneous Information 1 ea NOTE XX ; Start 01/15/17 at 19:00 Glucose (Glutose) 15 gm Q15M PRN PO DECREASED GLUCOSE; Start 01/15/17 at 19:00 Glucose (Glutose) 22.5 gm Q15M PRN PO DECREASED GLUCOSE; Start 01/15/17 at 19: 00 Dextrose (D50w Syringe) 25 ml Q15M PRN IV DECREASED GLUCOSE Last administered on 01/21/17 20:37; Admin Dose 25 ML; Start 01/15/17 at 19:00 Dextrose (D50w Syringe) 50 ml Q15M PRN IV DECREASED GLUCOSE; Start 01/15/17 at 19:00 Glucagon (Glucagen) 1 mg Q15M PRN IM DECREASED GLUCOSE; Start 01/15/17 at 19:00 Glucose (Glutose) 15 gm Q15M PRN BUCCAL DECREASED GLUCOSE Last administered on 01/21/17 19:53; Admin Dose 15 GM; Start 01/15/17 at 19:00 Diagnostic Test (Pha) (Accu-Chek) 1 ea 02 XX Last administered on 01/29/17 01: 36; Admin Dose 1 EA; Start 01/16/17 at 02:00 Miscellaneous Information (Pending Santyl Order For Wound Care) This patient jean baptiste... PRN PRN XX WOUND CARE; Start 01/15/17 at 22:00 Collagenase (Santyl) 1 applic DAILY TOP Last administered on 02/07/17 09:23; Admin Dose 1 APPLIC; Start 01/16/17 at 21:00 Hydralazine HCl (Apresoline) 10 mg Q6 PRN IV ELEVATED BLOOD PRESSURE Last administered on 01/17/17 03:05; Admin Dose 10 MG; Start 01/17/17 at 03:00 Acetaminophen (Tylenol Supp) 650 mg Q6H PRN [place] FEVER GREATER THAN 100.6 Last administered on 01/17/17 07:26; Admin Dose 650 MG; Start 01/17/17 at 07:00 Mupirocin (Bactroban) 1 applic BID TOP Last administered on 02/08/17 09:42; Admin Dose 1 APPLIC; Start 01/17/17 at 11:00 Nystatin (Nystatin Powder) 1 applic BID TOP Last administered on 02/08/17 09: 41; Admin Dose 1 APPLIC; Start 01/18/17 at 21:00 Bisacodyl (Dulcolax Supp) 10 mg BID PRN [place] CONSTIPATION; Start 01/19/17 at 12: 00 Sodium Biphosphate/ Sodium Phosphate 133 ml 133 ml BID PRN [place] CONSTIPATION; Start 01/19/17 at 12:00 Meropenem/Sodium Chloride (Merrem 1 Gm/50 ml (Pmx)) 50 ml @ 100 mls/hr Q8 IVPB Last administered on 02/08/17 13:11; Admin Dose 100 MLS/HR; Start 01/19/17 at 15:00 Zolpidem Tartrate (Ambien) 10 mg HS PRN PO INSOMNIA Last administered on 00:48; Admin Dose 10 MG; Start 01/21/17 at 13:30 IV Flush (NS 10 ml) 10 ml PRN PRN IV IV PROTOCOL; Start 01/21/17 at 19:00 Insulin Human NPH (Humulin N) 10 unit BID@08,20 SC Last administered on 08:36; Admin Dose 10 UNIT; Start 01/22/17 at 08:00 Ascorbic Acid (Vitamin C) 500 mg BID GTB Last administered on 02/08/17 09:37; Admin Dose 500 MG; Start 01/23/17 at 21:00 Multivitamins (Multivitamin) 30 ml DAILY GTB Last administered on 02/08/17 09: 38; Admin Dose 30 ML; Start 01/23/17 at 17:00 Insulin Aspart (Novolog Insulin Pen) NOVOLOG *MODERATE* ALGORITHM Q4 SC Last administered on 02/07/17 17:54; Admin Dose 4 UNIT; Start 01/27/17 at 17:00 Neomycin/ Polymyxin/ Bacitracin (Neosporin Topical Oint) 1 applic BID TOP Last administered on 02/08/17 09:41; Admin Dose 1 APPLIC; Start 01/28/17 at 09:00 Hydrogen Peroxide 1 applic 1 applic BID TOP Last administered on 02/08/17 09: 42; Admin Dose 1 APPLIC; Start 01/28/17 at 09:00 Tigecycline 50 mg/ Sodium Chloride 100 ml @ 200 mls/hr Q12 IVPB Last administered on 02/08/17 09:49; Admin Dose 200 MLS/HR; Start 01/29/17 at 21:00 Fluconazole/ Sodium Chloride (Diflucan 100 Mg/ NS (Pmx)) 50 ml @ 50 mls/hr Q24H IVPB Last administered on 02/07/17 20:48; Admin Dose 50 MLS/HR; Start at 20:30; Stop 02/11/17 at 20:30 Acetaminophen (Tylenol Tab) 650 mg Q6H PRN GTB PAIN LEVEL 1-3 OR FEVER Last administered on 02/05/17 21:03; Admin Dose 650 MG; Start 02/04/17 at 10:58 Apixaban (Eliquis) 5 mg BID GTB Last administered on 02/08/17 09:38; Admin Dose 5 MG; Start 02/04/17 at 10:59 Calcium Carbonate (Tums) 500 mg BID GTB Last administered on 02/08/17 09:38; Admin Dose 500 MG; Start 02/04/17 at 11:00 Clonidine (Catapres) 0.1 mg Q6H PRN GTB BLOOD PRESSURE SBP>160; Start 02/04/17 at 11:01 Docusate Sodium (Colace Liquid Cup) 100 mg BID PRN GTB CONSTIPATION; Start at 11:30 Famotidine (Pepcid) 20 mg DAILY GTB Last administered on 02/08/17 09:37; Admin Dose 20 MG; Start 02/04/17 at 11:03 Ferrous Sulfate (Feosol Liquid Cup) 225 mg DAILY GTB Last administered on 09:38; Admin Dose 225 MG; Start 02/04/17 at 11:30 Acetaminophen/ Hydrocodone Bitart ([place] (5/325)) 1 tab Q4H PRN GTB PAIN LEVEL 4-7 Last administered on 02/06/17 17:56; Admin Dose 1 TAB; Start 02/04/17 at 11 :08 Magnesium Hydroxide (Milk Of Mag) 30 ml DAILY PRN GTB CONSTIPATION; Start 02/04 at 11:09 Methadone HCl (Methadone) 10 mg QHS PRN GTB pain Last administered on 20:58; Admin Dose 10 MG; Start 02/04/17 at 11:11 Methadone HCl (Methadone) 20 mg AM PRN GTB pain Last administered on 02/08/17 09:40; Admin Dose 20 MG; Start 02/04/17 at 11:12 Montelukast Sodium (Singulair) 10 mg QHS GTB Last administered on 02/07/17 21: 01; Admin Dose 10 MG; Start 02/04/17 at 11:12 Losartan Potassium (Cozaar) 100 mg DAILY GTB Last administered on 02/08/17 09: 38; Admin Dose 100 MG; Start 02/05/17 at 09:00 Trimethoprim/ Sulfamethoxazole (Bactrim (Ds)) 1 tab BID GTB Last administered on 02/08/17 09:37; Admin Dose 1 TAB; Start 02/08/17 at 09:00 RIDGE MATTHEWS MD Feb 08, 2017 14:07
[2017-02-08] MEDS ORDERED: EPOETIN 10000 UNITS/ML (NON ESRD/NON ONCOLOGY) SC ONE ×2 (14:30)
[2017-02-08 14:49] VITALS: BP 129/53; RESP 15
--- NOTE | 2017-02-08 15:20 | PN ---
Date/Time of Note Date/Time of Note DATE: 02/08/17 TIME: 15:17 Assessment/Plan Lines/Catheters IV Catheter Type (from Nrs): PICC Line Sullivan in Place (from Nrs): Yes Assessment/Plan Assessment/Plan [facility] Progress Note Date of Service: 02/08/17 Today's Impression & Plan: Overall stable with WBC fluctuations. Sacral wound appears to be healing relatively well despite known osteomyelitis of sacrum, confirmed on pathology and documented on wound care photos and periodic exams by myself. Osteomyelitis and other infections are likely responsible for elevated white blood cell count. No indication for acute surgical intervention. No new recommendations. With above assessment, I've recommended the following for today: 1. Cont dressing changes 2. Cont PEG tube feeds 3. Continue broad-spectrum antimicrobials as needed for osteomyelitis 4. Will follow from periphery and visit as needed 5. Please continue to document wound condition with pictures with each wound vac change Nature of presenting problem: High complexity Thank you again for your great care of this very pleasant patient and wonderful family. If there are any questions, please feel free to call me at [phone]. Disclaimer: Inadvertent spelling or grammatical errors are likely due to EHR/ dictation software use and do not reflect on the overall quality of patient care. Updated clinical summary: A very-pleasant but unfortunate 81-year-old lady with multiple comorbidities including diabetes mellitus complicated by left heel decubitus ulcer as well as right below the knee amputation and paroxysmal atrial fibrillation, presenting with stage IV decubitus ulcer overlying her sacrum. Comorbidities: 1. Infected stage IV sacral decubitus pressure ulcer with possible osteomyelitis of the coccyx; s/p excisional debridement with scissors of a 10 x 5 x 3.5 cm coccygeal and sacral decubitus ulcer and removal of 30 cm of tissue including small part of the coccyx bone (ostectomy, 1x1x1 cm) and down to muscle in the upper part of the ulcer area and application of 2 g of Micro Matrix paste 2. Diabetes mellitus complicated by left heel decubitus ulcer as well as right below the knee amputation 3. Paroxysmal atrial fibrillation 4. Left upper extremity DVT with superficial thrombosis 5. Hypertension 6. Aspiration pneumonia 7. Osteomyelitis at the posterior calcaneal margin, treated with meropenem and vancomycin 8. Severe malnutrition with prealbumin 3.1 after hydration and albumin of 1.5 9. Peripheral vascular disease 10. Dementia 11. BMI 27.5 Subjective: No major events or complaints; no major abd pain and under control with medications; no n/v/d; no sob or cp; + flatus; + BM; - activity Objective: Vitals: See below Exam: GENERAL: On exam, the patient was laying in bed and appeared to be comfortable and in no acute distress. ABDOMEN: Soft, nontender and nondistended. Incision dressings are clean, dry and intact without any evidence of erythema, edema, discharge, or hernia. There are no peritoneal signs or guarding. PEG dressing clean and tube feeds ongoing. I reviewed again the pictures from the sacral wound from 02/02/2017. There was presence of nice beefy red granulation tissue forming in the cavity and there was no obvious evidence of any necrotic material that needed excisional debridement. I did not see more recent pictures. SKIN: Skin appears to be pink and feels warm to touch. NEUROLOGIC: Patient is arousable and follows simple commands appropriately. Not much more interactions with the examiner. Exam/Review of Systems Vital Signs Vitals Vital Signs Date Time Temp Pulse Resp B/P Pulse Ox O2 Delivery O2 Flow Rate FiO2 02/08/17 14:49 97.9 72 15 129/53 96 02/07/17 20:00 Nasal Cannula 2.0 Intake and Output 02/07/17 02/07/17 02/08/17 15:00 23:00 07:00 Intake Total 100 ml 200 ml 540 ml Output Total 850 ml Balance 100 ml 200 ml -310 ml Results Result Diagram: 02/08/17 0443 02/07/17 0445 OMAR HINOJOSA M.D. Feb 08, 2017 15:20
--- NOTE | 2017-02-08 15:28 | CONS ---
Date/Time of Note Date/Time of Note DATE: 02/08/17 TIME: 15:27 Assessment/Plan Assessment/Plan Additional Assessment/Plan Sacral decubiti DVT of left upper extremity History of paroxysmal atrial fibrillation Preserved ejection fraction Peripheral arterial disease -Blood pressure trend remains stable. Patient status post blood transfusion. If Hemoglobin continues to drop, would consider stopping anticoagulation. Consultation Date/Type/Reason Admit Date/Time Jan 15, 2017 at 14:33 Initial Consult Date 01/19/17 Type of Consultation: cv Referring Provider: RIDGE MATTHEWS MD 24 HR Interval Summary Free Text/Dictation Patient seen and examined Exam/Review of Systems Vital Signs Vitals Vital Signs Date Time Temp Pulse Resp B/P Pulse Ox O2 Delivery O2 Flow Rate FiO2 02/08/17 14:49 97.9 72 15 129/53 96 02/07/17 20:00 Nasal Cannula 2.0 Intake and Output 02/07/17 02/07/17 02/08/17 15:00 23:00 07:00 Intake Total 100 ml 200 ml 540 ml Output Total 850 ml Balance 100 ml 200 ml -310 ml Exam No apparent distress Head: normocephalic Respiratory: other (Coarse breath sounds bilaterally, no wheezing) Cardiovascular: other (S1-S2 heard), regular rate and rhythm Gastrointestinal: bowel sounds, non-tender, soft Extremities: edema Results Result Diagram: 02/08/17 0443 02/07/17 0445 Results 24 hrs Laboratory Tests Test 02/07/17 17:51 02/07/17 20:49 02/08/17 00:53 02/08/17 04:42 Bedside Glucose 189 142 144 103 Test 02/08/17 04:43 02/08/17 08:36 02/08/17 09:43 02/08/17 13:10 White Blood Count 15.7 H Red Blood Count 3.33 L Hemoglobin 9.2 L Hematocrit 29.5 L Mean Corpuscular Volume 88.6 Mean Corpuscular Hemoglobin 27.6 L Mean Corpuscular Hemoglobin Concent 31.2 L Red Cell Distribution Width 16.4 H Platelet Count 251 Mean Platelet Volume 11.0 H Neutrophils % 53.6 Lymphocytes % 31.3 Monocytes % 9.3 Eosinophils % 4.6 Basophils % 0.5 Nucleated Red Blood Cells % 0.0 Neutrophils # 8.4 H Lymphocytes # 4.9 H Monocytes # 1.5 H Eosinophils # 0.7 H Basophils # 0.1 Nucleated Red Blood Cells # 0.0 Bedside Glucose 121 134 131 Medications Medications Current Medications Ondansetron HCl (Zofran Inj) 4 mg Q6H PRN IV NAUSEA AND/OR VOMITING; Start at 16:30 IV Flush (NS 10 ml) 10 ml PRN PRN IV IV PROTOCOL; Start 01/15/17 at 18:30 Miscellaneous Information 1 ea NOTE XX ; Start 01/15/17 at 19:00 Glucose (Glutose) 15 gm Q15M PRN PO DECREASED GLUCOSE; Start 01/15/17 at 19:00 Glucose (Glutose) 22.5 gm Q15M PRN PO DECREASED GLUCOSE; Start 01/15/17 at 19: 00 Dextrose (D50w Syringe) 25 ml Q15M PRN IV DECREASED GLUCOSE Last administered on 01/21/17 20:37; Admin Dose 25 ML; Start 01/15/17 at 19:00 Dextrose (D50w Syringe) 50 ml Q15M PRN IV DECREASED GLUCOSE; Start 01/15/17 at 19:00 Glucagon (Glucagen) 1 mg Q15M PRN IM DECREASED GLUCOSE; Start 01/15/17 at 19:00 Glucose (Glutose) 15 gm Q15M PRN BUCCAL DECREASED GLUCOSE Last administered on 01/21/17 19:53; Admin Dose 15 GM; Start 01/15/17 at 19:00 Diagnostic Test (Pha) (Accu-Chek) 1 ea 02 XX Last administered on 01/29/17 01: 36; Admin Dose 1 EA; Start 01/16/17 at 02:00 Miscellaneous Information (Pending Santyl Order For Wound Care) This patient jean baptiste... PRN PRN XX WOUND CARE; Start 01/15/17 at 22:00 Collagenase (Santyl) 1 applic DAILY TOP Last administered on 02/07/17 09:23; Admin Dose 1 APPLIC; Start 01/16/17 at 21:00 Hydralazine HCl (Apresoline) 10 mg Q6 PRN IV ELEVATED BLOOD PRESSURE Last administered on 01/17/17 03:05; Admin Dose 10 MG; Start 01/17/17 at 03:00 Acetaminophen (Tylenol Supp) 650 mg Q6H PRN [place] FEVER GREATER THAN 100.6 Last administered on 01/17/17 07:26; Admin Dose 650 MG; Start 01/17/17 at 07:00 Mupirocin (Bactroban) 1 applic BID TOP Last administered on 02/08/17 09:42; Admin Dose 1 APPLIC; Start 01/17/17 at 11:00 Nystatin (Nystatin Powder) 1 applic BID TOP Last administered on 02/08/17 09: 41; Admin Dose 1 APPLIC; Start 01/18/17 at 21:00 Bisacodyl (Dulcolax Supp) 10 mg BID PRN [place] CONSTIPATION; Start 01/19/17 at 12: 00 Sodium Biphosphate/ Sodium Phosphate 133 ml 133 ml BID PRN [place] CONSTIPATION; Start 01/19/17 at 12:00 Meropenem/Sodium Chloride (Merrem 1 Gm/50 ml (Pmx)) 50 ml @ 100 mls/hr Q8 IVPB Last administered on 02/08/17 13:11; Admin Dose 100 MLS/HR; Start 01/19/17 at 15:00 Zolpidem Tartrate (Ambien) 10 mg HS PRN PO INSOMNIA Last administered on 00:48; Admin Dose 10 MG; Start 01/21/17 at 13:30 IV Flush (NS 10 ml) 10 ml PRN PRN IV IV PROTOCOL; Start 01/21/17 at 19:00 Insulin Human NPH (Humulin N) 10 unit BID@08,20 SC Last administered on 08:36; Admin Dose 10 UNIT; Start 01/22/17 at 08:00 Ascorbic Acid (Vitamin C) 500 mg BID GTB Last administered on 02/08/17 09:37; Admin Dose 500 MG; Start 01/23/17 at 21:00 Multivitamins (Multivitamin) 30 ml DAILY GTB Last administered on 02/08/17 09: 38; Admin Dose 30 ML; Start 01/23/17 at 17:00 Insulin Aspart (Novolog Insulin Pen) NOVOLOG *MODERATE* ALGORITHM Q4 SC Last administered on 02/07/17 17:54; Admin Dose 4 UNIT; Start 01/27/17 at 17:00 Neomycin/ Polymyxin/ Bacitracin (Neosporin Topical Oint) 1 applic BID TOP Last administered on 02/08/17 09:41; Admin Dose 1 APPLIC; Start 01/28/17 at 09:00 Hydrogen Peroxide 1 applic 1 applic BID TOP Last administered on 02/08/17 09: 42; Admin Dose 1 APPLIC; Start 01/28/17 at 09:00 Tigecycline 50 mg/ Sodium Chloride 100 ml @ 200 mls/hr Q12 IVPB Last administered on 02/08/17 09:49; Admin Dose 200 MLS/HR; Start 01/29/17 at 21:00 Fluconazole/ Sodium Chloride (Diflucan 100 Mg/ NS (Pmx)) 50 ml @ 50 mls/hr Q24H IVPB Last administered on 02/07/17 20:48; Admin Dose 50 MLS/HR; Start at 20:30; Stop 02/11/17 at 20:30 Acetaminophen (Tylenol Tab) 650 mg Q6H PRN GTB PAIN LEVEL 1-3 OR FEVER Last administered on 02/05/17 21:03; Admin Dose 650 MG; Start 02/04/17 at 10:58 Apixaban (Eliquis) 5 mg BID GTB Last administered on 02/08/17 09:38; Admin Dose 5 MG; Start 02/04/17 at 10:59 Calcium Carbonate (Tums) 500 mg BID GTB Last administered on 02/08/17 09:38; Admin Dose 500 MG; Start 02/04/17 at 11:00 Clonidine (Catapres) 0.1 mg Q6H PRN GTB BLOOD PRESSURE SBP>160; Start 02/04/17 at 11:01 Docusate Sodium (Colace Liquid Cup) 100 mg BID PRN GTB CONSTIPATION; Start at 11:30 Famotidine (Pepcid) 20 mg DAILY GTB Last administered on 02/08/17 09:37; Admin Dose 20 MG; Start 02/04/17 at 11:03 Ferrous Sulfate (Feosol Liquid Cup) 225 mg DAILY GTB Last administered on 09:38; Admin Dose 225 MG; Start 02/04/17 at 11:30 Acetaminophen/ Hydrocodone Bitart ([place] (5/325)) 1 tab Q4H PRN GTB PAIN LEVEL 4-7 Last administered on 02/06/17 17:56; Admin Dose 1 TAB; Start 02/04/17 at 11 :08 Magnesium Hydroxide (Milk Of Mag) 30 ml DAILY PRN GTB CONSTIPATION; Start 02/04 at 11:09 Methadone HCl (Methadone) 10 mg QHS PRN GTB pain Last administered on 20:58; Admin Dose 10 MG; Start 02/04/17 at 11:11 Montelukast Sodium (Singulair) 10 mg QHS GTB Last administered on 02/07/17 21: 01; Admin Dose 10 MG; Start 02/04/17 at 11:12 Losartan Potassium (Cozaar) 100 mg DAILY GTB Last administered on 02/08/17 09: 38; Admin Dose 100 MG; Start 02/05/17 at 09:00 Trimethoprim/ Sulfamethoxazole (Bactrim (Ds)) 1 tab BID GTB Last administered on 02/08/17 09:37; Admin Dose 1 TAB; Start 02/08/17 at 09:00 Methadone HCl (Methadone) 10 mg AM PRN GTB pain; Start 02/08/17 at 14:30 Tucker Jacome DO Feb 08, 2017 15:28
[2017-02-08] MEDS: HYDROCODONE/APAP (5/325) TAB GTB PRN (18:25)
[2017-02-08 20:00] VITALS: BP 120/49
[2017-02-08 20:30] VITALS: BP 122/55
[2017-02-08] MEDS: MONTELUKAST 10 MG TAB GTB SCH (20:37)
[2017-02-08] MEDS: FLUCONAZOLE 100 MG/NS (PMX) 50 ML IVPB SCH (20:53)
[2017-02-08] MEDS ORDERED: ALBUTEROL 0.083% (NEB) 2.5 MG/3 ML AMP HHN PRN (23:30)
[2017-02-08] MEDS: GUAIFENESIN 20 MG/ML 5ML CUP GTB PRN (23:48)
[2017-02-09] MEDS: INSULIN ASPART [NOVOLOG] 3 ML PEN SC SCH ×6 (01:00→21:00)
[2017-02-09 02:00] VITALS: BP 123/63; RESP 18
[2017-02-09] MEDS: ACCU-CHEK XX SCH (02:00)
[2017-02-09] MEDS: MEROPENEM 1 GM/50ML(PMX) 50 ML IVPB SCH ×3 (05:37→23:16)
[2017-02-09 05:54] LABS: ABNORMAL IP MESSAGE 1; BASOPHIL # 0.1 10^3/ul (0.0-0.1); BASOPHILS % 0.4 % (0.0-2.0); EOSINOPHILS # 0.9 10^3/ul (0.0-0.5); HEMATOCRIT 30.2 % (37.0-47.0); HEMOGLOBIN 9.5 g/dl (12.0-16.0); LYMPHOCYTES # 5.2 10^3/ul (0.8-2.9); LYMPHOCYTES % 33.9 % (15.0-51.0); MEAN CORPUSCULAR HEMOGLOBIN 28.5 pg (29.0-33.0); MEAN CORPUSCULAR HGB CONC 31.5 g/dl (32.0-37.0); MEAN CORPUSCULAR VOLUME 90.7 fl (82.0-101.0); MEAN PLATELET VOLUME 10.4 fl (7.4-10.4); MONOCYTE # 1.3 10^3/ul (0.3-0.9); MONOCYTES % 8.2 % (0.0-11.0); NEUTROPHIL # 7.8 10^3/ul (1.6-7.5); NEUTROPHILS % 50.6 % (39.0-77.0); PLATELET COUNT 274 10^3/UL (140-415); RED BLOOD COUNT 3.33 10^6/ul (4.20-5.40); RED CELL DISTRIBUTION WIDTH 16.3 % (11.5-14.5); WHITE BLOOD COUNT 15.4 10^3/ul (4.8-10.8)
[2017-02-09 06:26] LABS: POSITIVE DIFF @See below
[2017-02-09 07:59] VITALS: BP 134/61; RESP 18
[2017-02-09] MEDS: NPH, HUMAN INSULIN ISOPHANE 3ML VIAL SC SCH ×2 (08:33→21:10)
[2017-02-09] MEDS: TIGECYCLINE 50 MG in SOD CHLORIDE 0.9% 100 ML IVPB SCH ×2 (08:34→22:15)
[2017-02-09] MEDS: FERROUS SULFATE 60 MG/ML 5ML CUP GTB SCH (08:36)
[2017-02-09] MEDS: FAMOTIDINE 20 MG TAB GTB SCH (08:39)
[2017-02-09] MEDS: TRIMETHOPRIM/SULFAMETHOX (DS) TAB GTB SCH ×2 (08:39→21:20)
[2017-02-09] MEDS: CALCIUM CARBONATE 500 MG CHEW TAB GTB SCH ×2 (08:39→21:11)
[2017-02-09] MEDS: MULTIVITAMINS 30 ML CUP GTB SCH (08:39)
[2017-02-09] MEDS: ASCORBIC ACID 500 MG TAB GTB SCH ×2 (08:39→21:11)
[2017-02-09] MEDS: APIXABAN 5 MG TABLET GTB SCH ×2 (08:40→21:11)
[2017-02-09] MEDS: METHADONE 10 MG TAB GTB PRN (08:40)
[2017-02-09] MEDS: LOSARTAN 50 MG TAB GTB SCH (08:41)
[2017-02-09] MEDS: MUPIROCIN 2% 22 GM OINT TOP SCH ×2 (08:43→21:22)
[2017-02-09] MEDS: HYDROGEN PEROXIDE 118 ML TOP SCH ×2 (08:43→21:21)
[2017-02-09] MEDS: COLLAGENASE 30 GM TUBE TOP SCH (08:44)
[2017-02-09] MEDS: NYSTATIN 30 GM POWDER BTL TOP SCH ×2 (08:44→21:22)
[2017-02-09] MEDS: NEOMYC/POLYMYX/BACIT 30 GM OINT TOP SCH ×2 (08:44→21:22)
[2017-02-09 14:51] VITALS: BP 122/53; RESP 18
--- NOTE | 2017-02-09 16:00 | PN ---
Date/Time of Note Date/Time of Note DATE: 02/09/17 TIME: 15:55 Assessment/Plan VTE Prophylaxis VTE Prophylaxis Intervention: other Lines/Catheters IV Catheter Type (from Nrsg): PICC Line Central line still needed: Yes Urinary Cath still in place: Yes Reason Cath still needed: skin wounds contaminated by urine Assessment/Plan Chief Complaint/Hosp Course sedated. no discomfort . Problems: Assessment/Plan on lower dose of methadone 10 am and still sedated. wound reported mild improvement 02/07 wbc going back up and the hgb going down 02/08 wbc still going up. pt sedated. nurse and family says always sedated. 02/05 focus lab system is down and it has delayed the expanded sensi's for acinetobacter---appears resist to everything but bactrim. id following maintain merrem/tigecycline for now --hgb 7.9 transfusine 1u prbc on sacral stage IV decub, growing proteus and ecoli and s.aureus. on merrem/vanco , being treated by ID. 02/19 debrided and eval for osteo. called ortho- they report that nothing for them to do regarding fx or osteo of sacrum. wbc improving. -path report +osteo. ortho called and will not treat. - vre grew. now on tigecycline/merrem. -if wound does not improve, ID is recommending diverting colostomy.---wound is mildly better. multi bugs growing. ID deciding if any changes of med. wbc has cont to improve. -currently afebrile. -----ID reports 02/08 - Acinetobacter is resistant to colisitin, intermediate to minocycline (PROMISE of 8) and Tigecycline PROMISE is 2 (no interpretation available but likely sensitive) continue with merrem/tigecycline thru 03/12, monitor ESR on a weekly basis wound appears to be improving and ESR has come down will add bactrim temporarily to see if it will improve her leukocytosis one of the possible side effects of tigecycline is leukocytosis though poor appetite- gtube in place. pt is allowed p.o. intake with aspiration precautions. not oral eating much since sedated. mentation better with less pain med. will open eyes and answer questions today. pain controlled with methadone. will consider if able to decrease the am dose. pt too sedated. will decrease morning methadone. pt needs to be awake , with some pain otherwise subsequent pneumo. 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 dmII since gtube feeding, adjusting the insulin. doing well accu check stable. paroxysmal afib on last admission- occurred during sepsis and intubation. pt changed to elliquis. stable h/o left dvt of UE. now on elliquis. cont til dvt resolves. due to blood transfusion may need to hold eliquis Subjective 24 Hr Interval Summary Free Text/Dictation always sedated. anemia-cards considering to hold blood thinner Exam/Review of Systems Vital Signs Vitals Vital Signs Date Time Temp Pulse Resp B/P Pulse Ox O2 Delivery O2 Flow Rate FiO2 02/09/17 14:51 97.8 85 18 122/53 98 02/09/17 13:29 2.0 02/09/17 08:00 Nasal Cannula Intake and Output 02/08/17 02/08/17 02/09/17 15:00 23:00 07:00 Intake Total 150 ml 1160 ml 440 ml Output Total 1750 ml 1000 ml Balance 150 ml -590 ml -560 ml Results Result Diagram: 02/09/17 0450 02/07/17 0445 Results 24 hrs Laboratory Tests Test 02/08/17 17:34 02/08/17 20:32 02/09/17 01:07 02/09/17 04:50 Bedside Glucose 116 161 122 White Blood Count 15.4 H Red Blood Count 3.33 L Hemoglobin 9.5 L Hematocrit 30.2 L Mean Corpuscular Volume 90.7 Mean Corpuscular Hemoglobin 28.5 L Mean Corpuscular Hemoglobin Concent 31.5 L Red Cell Distribution Width 16.3 H Platelet Count 274 Mean Platelet Volume 10.4 Neutrophils % 50.6 Lymphocytes % 33.9 Monocytes % 8.2 Eosinophils % 6.0 Basophils % 0.4 Nucleated Red Blood Cells % 0.0 Neutrophils # 7.8 H Lymphocytes # 5.2 H Monocytes # 1.3 H Eosinophils # 0.9 H Basophils # 0.1 Nucleated Red Blood Cells # 0.0 Test 02/09/17 05:34 02/09/17 06:39 02/09/17 08:11 02/09/17 12:28 Bedside Glucose 109 116 135 Lab Scanned Report REFERENCE LAB Medications Medications Current Medications Ondansetron HCl (Zofran Inj) 4 mg Q6H PRN IV NAUSEA AND/OR VOMITING; Start at 16:30 IV Flush (NS 10 ml) 10 ml PRN PRN IV IV PROTOCOL; Start 01/15/17 at 18:30 Miscellaneous Information 1 ea NOTE XX ; Start 01/15/17 at 19:00 Glucose (Glutose) 15 gm Q15M PRN PO DECREASED GLUCOSE; Start 01/15/17 at 19:00 Glucose (Glutose) 22.5 gm Q15M PRN PO DECREASED GLUCOSE; Start 01/15/17 at 19: 00 Dextrose (D50w Syringe) 25 ml Q15M PRN IV DECREASED GLUCOSE Last administered on 01/21/17 20:37; Admin Dose 25 ML; Start 01/15/17 at 19:00 Dextrose (D50w Syringe) 50 ml Q15M PRN IV DECREASED GLUCOSE; Start 01/15/17 at 19:00 Glucagon (Glucagen) 1 mg Q15M PRN IM DECREASED GLUCOSE; Start 01/15/17 at 19:00 Glucose (Glutose) 15 gm Q15M PRN BUCCAL DECREASED GLUCOSE Last administered on 01/21/17 19:53; Admin Dose 15 GM; Start 01/15/17 at 19:00 Diagnostic Test (Pha) (Accu-Chek) 1 ea 02 XX Last administered on 01/29/17 01: 36; Admin Dose 1 EA; Start 01/16/17 at 02:00 Miscellaneous Information (Pending Santyl Order For Wound Care) This patient jean baptiste... PRN PRN XX WOUND CARE; Start 01/15/17 at 22:00 Collagenase (Santyl) 1 applic DAILY TOP Last administered on 02/09/17 08:44; Admin Dose 1 APPLIC; Start 01/16/17 at 21:00 Hydralazine HCl (Apresoline) 10 mg Q6 PRN IV ELEVATED BLOOD PRESSURE Last administered on 01/17/17 03:05; Admin Dose 10 MG; Start 01/17/17 at 03:00 Acetaminophen (Tylenol Supp) 650 mg Q6H PRN [place] FEVER GREATER THAN 100.6 Last administered on 01/17/17 07:26; Admin Dose 650 MG; Start 01/17/17 at 07:00 Mupirocin (Bactroban) 1 applic BID TOP Last administered on 02/09/17 08:43; Admin Dose 1 APPLIC; Start 01/17/17 at 11:00 Nystatin (Nystatin Powder) 1 applic BID TOP Last administered on 02/09/17 08: 44; Admin Dose 1 APPLIC; Start 01/18/17 at 21:00 Bisacodyl (Dulcolax Supp) 10 mg BID PRN [place] CONSTIPATION; Start 01/19/17 at 12: 00 Sodium Biphosphate/ Sodium Phosphate 133 ml 133 ml BID PRN [place] CONSTIPATION; Start 01/19/17 at 12:00 Meropenem/Sodium Chloride (Merrem 1 Gm/50 ml (Pmx)) 50 ml @ 100 mls/hr Q8 IVPB Last administered on 02/09/17 14:40; Admin Dose 100 MLS/HR; Start 01/19/17 at 15:00 Zolpidem Tartrate (Ambien) 10 mg HS PRN PO INSOMNIA Last administered on 23:48; Admin Dose 10 MG; Start 01/21/17 at 13:30 IV Flush (NS 10 ml) 10 ml PRN PRN IV IV PROTOCOL; Start 01/21/17 at 19:00 Insulin Human NPH (Humulin N) 10 unit BID@08,20 SC Last administered on 08:33; Admin Dose 10 UNIT; Start 01/22/17 at 08:00 Ascorbic Acid (Vitamin C) 500 mg BID GTB Last administered on 02/09/17 08:39; Admin Dose 500 MG; Start 01/23/17 at 21:00 Multivitamins (Multivitamin) 30 ml DAILY GTB Last administered on 02/09/17 08: 39; Admin Dose 30 ML; Start 01/23/17 at 17:00 Insulin Aspart (Novolog Insulin Pen) NOVOLOG *MODERATE* ALGORITHM Q4 SC Last administered on 02/07/17 17:54; Admin Dose 4 UNIT; Start 01/27/17 at 17:00 Neomycin/ Polymyxin/ Bacitracin (Neosporin Topical Oint) 1 applic BID TOP Last administered on 02/09/17 08:44; Admin Dose 1 APPLIC; Start 01/28/17 at 09:00 Hydrogen Peroxide 1 applic 1 applic BID TOP Last administered on 02/09/17 08: 43; Admin Dose 1 APPLIC; Start 01/28/17 at 09:00 Tigecycline 50 mg/ Sodium Chloride 100 ml @ 200 mls/hr Q12 IVPB Last administered on 02/09/17 08:34; Admin Dose 200 MLS/HR; Start 01/29/17 at 21:00 Fluconazole/ Sodium Chloride (Diflucan 100 Mg/ NS (Pmx)) 50 ml @ 50 mls/hr Q24H IVPB Last administered on 02/08/17 20:53; Admin Dose 50 MLS/HR; Start at 20:30; Stop 02/11/17 at 20:30 Acetaminophen (Tylenol Tab) 650 mg Q6H PRN GTB PAIN LEVEL 1-3 OR FEVER Last administered on 02/05/17 21:03; Admin Dose 650 MG; Start 02/04/17 at 10:58 Apixaban (Eliquis) 5 mg BID GTB Last administered on 02/09/17 08:40; Admin Dose 5 MG; Start 02/04/17 at 10:59 Calcium Carbonate (Tums) 500 mg BID GTB Last administered on 02/09/17 08:39; Admin Dose 500 MG; Start 02/04/17 at 11:00 Clonidine (Catapres) 0.1 mg Q6H PRN GTB BLOOD PRESSURE SBP>160; Start 02/04/17 at 11:01 Docusate Sodium (Colace Liquid Cup) 100 mg BID PRN GTB CONSTIPATION; Start at 11:30 Famotidine (Pepcid) 20 mg DAILY GTB Last administered on 02/09/17 08:39; Admin Dose 20 MG; Start 02/04/17 at 11:03 Ferrous Sulfate (Feosol Liquid Cup) 225 mg DAILY GTB Last administered on 08:36; Admin Dose 225 MG; Start 02/04/17 at 11:30 Magnesium Hydroxide (Milk Of Mag) 30 ml DAILY PRN GTB CONSTIPATION; Start 02/04 at 11:09 Montelukast Sodium (Singulair) 10 mg QHS GTB Last administered on 02/08/17 20: 37; Admin Dose 10 MG; Start 02/04/17 at 11:12 Losartan Potassium (Cozaar) 100 mg DAILY GTB Last administered on 02/09/17 08: 41; Admin Dose 100 MG; Start 02/05/17 at 09:00 Trimethoprim/ Sulfamethoxazole (Bactrim (Ds)) 1 tab BID GTB Last administered on 02/09/17 08:39; Admin Dose 1 TAB; Start 02/08/17 at 09:00 Methadone HCl (Methadone) 10 mg AM PRN GTB pain Last administered on 02/09/17 08:40; Admin Dose 10 MG; Start 02/08/17 at 14:30 Guaifenesin (Robitussin Liquid Cup) 200 mg Q4H PRN GTB COUGH Last administered on 02/08/17 23:48; Admin Dose 200 MG; Start 02/08/17 at 23:30 RIDGE MATTHEWS MD Feb 09, 2017 16:00
[2017-02-09] MEDS: FLUCONAZOLE 100 MG/NS (PMX) 50 ML IVPB SCH (21:10)
[2017-02-09] MEDS: GUAIFENESIN 20 MG/ML 5ML CUP GTB PRN (21:12)
[2017-02-09 21:17] VITALS: BP 179/74; RESP 18
[2017-02-09] MEDS: MONTELUKAST 10 MG TAB GTB SCH (21:21)
[2017-02-09 22:00] VITALS: BP 156/74
[2017-02-10] MEDS: INSULIN ASPART [NOVOLOG] 3 ML PEN SC SCH ×6 (01:00→21:00)
[2017-02-10] MEDS: ACCU-CHEK XX SCH (02:00)
[2017-02-10 03:28] VITALS: BP 159/66; RESP 18
[2017-02-10] MEDS: MEROPENEM 1 GM/50ML(PMX) 50 ML IVPB SCH ×3 (05:31→22:31)
[2017-02-10 05:37] LABS: ABNORMAL IP MESSAGE 1; BASOPHIL # 0.1 10^3/ul (0.0-0.1); BASOPHILS % 0.5 % (0.0-2.0); EOSINOPHILS # 0.8 10^3/ul (0.0-0.5); EOSINOPHILS % 5.1 % (0.0-7.0); HEMATOCRIT 31.4 % (37.0-47.0); LYMPHOCYTES # 5.1 10^3/ul (0.8-2.9); MEAN CORPUSCULAR HEMOGLOBIN 28.4 pg (29.0-33.0); MEAN CORPUSCULAR HGB CONC 31.8 g/dl (32.0-37.0); MEAN CORPUSCULAR VOLUME 89.2 fl (82.0-101.0); MEAN PLATELET VOLUME 10.5 fl (7.4-10.4); MONOCYTE # 1.4 10^3/ul (0.3-0.9); MONOCYTES % 8.7 % (0.0-11.0); NEUTROPHIL # 8.9 10^3/ul (1.6-7.5); NEUTROPHILS % 53.8 % (39.0-77.0); PLATELET COUNT 281 10^3/UL (140-415); RED BLOOD COUNT 3.52 10^6/ul (4.20-5.40); RED CELL DISTRIBUTION WIDTH 16.5 % (11.5-14.5); WHITE BLOOD COUNT 16.6 10^3/ul (4.8-10.8)
[2017-02-10 06:00] LABS: POSITIVE DIFF @See below
[2017-02-10] MEDS: GUAIFENESIN 20 MG/ML 5ML CUP GTB PRN (06:12)
[2017-02-10 06:17] LABS: CREATININE 0.7 mg/dl (0.44-1.00); POTASSIUM 5.2 mmol/L (3.5-5.1)
--- NOTE | 2017-02-10 07:55 | CONS ---
Date/Time of Note Date/Time of Note DATE: 02/10/17 TIME: 07:53 Assessment/Plan Assessment/Plan Chief Complaint/Hosp Course 1) progressive sacral ulcer, surrounding cellulitis await surgical input and debridement, consider MRI depending upon surgical eval wound cx to be obtained continue with vanco/merrem check ESR, CRP in a.m. 01/17 - proteus and another GNR in wound cx continue with merrem/vanco esr and CRP are moderately elevated mrsa to nares to start bactroban await surgical input pt is more awake today and able to answer some questions in [place] 01/18 - pt persistence of fever and elevated wbc is either due to an undrained abscess or inadequate antibiotics await wound care eval and surgical debridement will order MRI scan if no wound care is delivered by tomorrow wound cx has proteus, GNR and enterococcus continue with vanco/merrem at present 01/19 - wound cx are all sensitive to current antibiotics of vanco/merrem MRI of pelvis/abd was done but results not available pt to get debridement later this am. 01/20 - s/p debridement, some bone was shaved, MRI did not show osteo await path report continue with vanco/merrem fevers and WBC improved post debridement pt will need good nutrition to heal this wound, consider g-tube if pt not eating well 01/22 - pt to get g-tube for better nutrition continue with vanco/merrem thru 02/01/17 consider doxy for 2 weeks after that path specimen did not identify bone to examine for osteo 01/25 - WBC improved today and ESR was down from 78 to 65 no new issues continue with vanco/merrrem at present thru 02/01 then po doxy for 2 weeks 01/26 - re-culture the site continue vanco/merrem 01/27 - vac pump is applied re-cx of site has GNR so far 01/28 - acinetobacter now present and addendum to path shows osteomyelitis continue with merrem change vanco to minocycline send out for sensi's for colistin, avycaz, minocycline and tigecycline 01/29 - 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 01/30 - esr was a bit better continue with tigecycline/merrem, no need for diverting colostomy at this time as stool does not appear to be contaminating the sacral wound await final send out sensi's on the acinetobacter wbc is up but tigecycline can cause elevation of wbc 02/01 - spoke to surgeon who said wound is improved, but there is farooq exposure still awaitin sensi's on the acinetobacter wbc is slowly coming down but tigecycline can cause an increase in WBC continue merrem/tigecycline 02/04 - spoke to lab and expanded sensi's to the acinetobacter should be back by tomorrow maintain merrem/tigecycline at present 02/05 focus lab system is down and it has delayed the expanded sensi's for acinetobacter maintain merrem/tigecycline for now 02/08 - Acinetobacter is resistant to colisitin, intermediate to minocycline ( PROMISE of 8) and Tigecycline PROMISE is 2 (no interpretation available but likely sensitive) continue with merrem/tigecycline thru 03/12, monitor ESR on a weekly basis wound appears to be improving and ESR has come down will add bactrim temporarily to see if it will improve her leukocytosis one of the possible side effects of tigecycline is leukocytosis though 02/10 - no change with WBC or creatinine since addition of bactrim sacral wound measurements are slowly decreasing continue with merrem/tigecycline/bactrim if creatinine remains stable and wound continues to improve will continue with this regimen 2) L heal ulcer with eschar no surrounding redness noted on picture 3) PVD 4) recent hx of LUE DVT 5) HTN 6) leukocytosis 01/26 - get u/a and urine cx, c.dif was sent off re-culture the sacral wound site doubt a pulmonary issue 01/27 - c.dif was neg WBC has improved without change in antibiotics urine cx is NGTD (prior one was only yeast) wound cx has GNR only so far continue present management 01/28 - wound cx is now growing highly resistant acinetobacter will adjust antibiotics and await send out sensi's to verify the best regimen for pt 01/29 - wound cx also grew VRE now on merrem/tigecycline 01/30 - await final sensi' results for acinetobacter tigecycline can cause increase in the WBC 02/04 - improving, but slight fever and increase in WBC today, to continue to monitor will re-check u/a and urine cx and consider CXR 02/05 - u/a shows no pyuria, yeast in urine is not significant and does not need treatment c.dif was negative fevers and wbc improved tigecycline can cause some leukocytosis so WBC may not return to normal while on it 02/08 - will add bactrim to see if leukocytosis is due to infection no other infection appreciated other than sacral osteo, yeast in urine is a colonizer if no change with WBC after on bactrim for a week will d/c it continue merrem/tigecycline thruy 03/12, monitor ESR weekly 02/10 - no change Problems: Consultation Date/Type/Reason Admit Date/Time Jan 15, 2017 at 14:33 Initial Consult Date 01/16/17 Type of Consultation: ID Referring Provider: RIDGE MATTHEWS MD 24 HR Interval Summary Free Text/Dictation spoke to nurse no new problems tolerating TF and no diarrhea no SOB Subjective hx not possible: pt non-verbal Exam/Review of Systems Vital Signs Vitals Vital Signs Date Time Temp Pulse Resp B/P Pulse Ox O2 Delivery O2 Flow Rate FiO2 02/10/17 03:28 98.7 80 18 159/66 99 02/10/17 01:50 2.0 02/09/17 20:00 Nasal Cannula Intake and Output 02/09/17 02/09/17 02/10/17 15:00 23:00 07:00 Intake Total 100 ml 200 ml 100 ml Balance 100 ml 200 ml 100 ml Exam Constitutional: non-verbal Respiratory: other (nicholas coarse rhonchi) Cardiovascular: regular rate and rhythm Gastrointestinal: non-tender, soft Results Result Diagram: 02/10/17 0454 02/10/17 0454 Results 24 hrs Laboratory Tests Test 02/09/17 08:11 02/09/17 12:28 02/09/17 17:21 02/09/17 21:07 Bedside Glucose 116 135 131 142 Test 02/10/17 01:22 02/10/17 04:54 02/10/17 05:28 Bedside Glucose 131 110 White Blood Count 16.6 H Red Blood Count 3.52 L Hemoglobin 10.0 L Hematocrit 31.4 L Mean Corpuscular Volume 89.2 Mean Corpuscular Hemoglobin 28.4 L Mean Corpuscular Hemoglobin Concent 31.8 L Red Cell Distribution Width 16.5 H Platelet Count 281 Mean Platelet Volume 10.5 H Neutrophils % 53.8 Lymphocytes % 31.0 Monocytes % 8.7 Eosinophils % 5.1 Basophils % 0.5 Nucleated Red Blood Cells % 0.0 Neutrophils # 8.9 H Lymphocytes # 5.1 H Monocytes # 1.4 H Eosinophils # 0.8 H Basophils # 0.1 Nucleated Red Blood Cells # 0.0 Sodium Level 135 Potassium Level 5.2 H Chloride Level 100 Carbon Dioxide Level 36 H Anion Gap 4 L Blood Urea Nitrogen 34 H Creatinine 0.70 Glucose Level 102 Calcium Level 9.0 Medications Medications Current Medications Ondansetron HCl (Zofran Inj) 4 mg Q6H PRN IV NAUSEA AND/OR VOMITING; Start at 16:30 IV Flush (NS 10 ml) 10 ml PRN PRN IV IV PROTOCOL; Start 01/15/17 at 18:30 Miscellaneous Information 1 ea NOTE XX ; Start 01/15/17 at 19:00 Glucose (Glutose) 15 gm Q15M PRN PO DECREASED GLUCOSE; Start 01/15/17 at 19:00 Glucose (Glutose) 22.5 gm Q15M PRN PO DECREASED GLUCOSE; Start 01/15/17 at 19: 00 Dextrose (D50w Syringe) 25 ml Q15M PRN IV DECREASED GLUCOSE Last administered on 01/21/17 20:37; Admin Dose 25 ML; Start 01/15/17 at 19:00 Dextrose (D50w Syringe) 50 ml Q15M PRN IV DECREASED GLUCOSE; Start 01/15/17 at 19:00 Glucagon (Glucagen) 1 mg Q15M PRN IM DECREASED GLUCOSE; Start 01/15/17 at 19:00 Glucose (Glutose) 15 gm Q15M PRN BUCCAL DECREASED GLUCOSE Last administered on 01/21/17 19:53; Admin Dose 15 GM; Start 01/15/17 at 19:00 Diagnostic Test (Pha) (Accu-Chek) 1 ea 02 XX Last administered on 01/29/17 01: 36; Admin Dose 1 EA; Start 01/16/17 at 02:00 Miscellaneous Information (Pending Santyl Order For Wound Care) This patient jean baptiste... PRN PRN XX WOUND CARE; Start 01/15/17 at 22:00 Collagenase (Santyl) 1 applic DAILY TOP Last administered on 02/09/17 08:44; Admin Dose 1 APPLIC; Start 01/16/17 at 21:00 Hydralazine HCl (Apresoline) 10 mg Q6 PRN IV ELEVATED BLOOD PRESSURE Last administered on 01/17/17 03:05; Admin Dose 10 MG; Start 01/17/17 at 03:00 Acetaminophen (Tylenol Supp) 650 mg Q6H PRN [place] FEVER GREATER THAN 100.6 Last administered on 01/17/17 07:26; Admin Dose 650 MG; Start 01/17/17 at 07:00 Mupirocin (Bactroban) 1 applic BID TOP Last administered on 02/09/17 21:22; Admin Dose 1 APPLIC; Start 01/17/17 at 11:00 Nystatin (Nystatin Powder) 1 applic BID TOP Last administered on 02/09/17 21: 22; Admin Dose 1 APPLIC; Start 01/18/17 at 21:00 Bisacodyl (Dulcolax Supp) 10 mg BID PRN [place] CONSTIPATION; Start 01/19/17 at 12: 00 Sodium Biphosphate/ Sodium Phosphate 133 ml 133 ml BID PRN [place] CONSTIPATION; Start 01/19/17 at 12:00 Meropenem/Sodium Chloride (Merrem 1 Gm/50 ml (Pmx)) 50 ml @ 100 mls/hr Q8 IVPB Last administered on 02/10/17 05:31; Admin Dose 100 MLS/HR; Start 01/19/17 at 15:00 Zolpidem Tartrate (Ambien) 10 mg HS PRN PO INSOMNIA Last administered on 23:48; Admin Dose 10 MG; Start 01/21/17 at 13:30 IV Flush (NS 10 ml) 10 ml PRN PRN IV IV PROTOCOL; Start 01/21/17 at 19:00 Insulin Human NPH (Humulin N) 10 unit BID@08,20 SC Last administered on 21:10; Admin Dose 10 UNIT; Start 01/22/17 at 08:00 Ascorbic Acid (Vitamin C) 500 mg BID GTB Last administered on 02/09/17 21:11; Admin Dose 500 MG; Start 01/23/17 at 21:00 Multivitamins (Multivitamin) 30 ml DAILY GTB Last administered on 02/09/17 08: 39; Admin Dose 30 ML; Start 01/23/17 at 17:00 Insulin Aspart (Novolog Insulin Pen) NOVOLOG *MODERATE* ALGORITHM Q4 SC Last administered on 02/07/17 17:54; Admin Dose 4 UNIT; Start 01/27/17 at 17:00 Neomycin/ Polymyxin/ Bacitracin (Neosporin Topical Oint) 1 applic BID TOP Last administered on 02/09/17 21:22; Admin Dose 1 APPLIC; Start 01/28/17 at 09:00 Hydrogen Peroxide 1 applic 1 applic BID TOP Last administered on 02/09/17 21: 21; Admin Dose 1 APPLIC; Start 01/28/17 at 09:00 Tigecycline 50 mg/ Sodium Chloride 100 ml @ 200 mls/hr Q12 IVPB Last administered on 02/09/17 22:15; Admin Dose 200 MLS/HR; Start 01/29/17 at 21:00 Fluconazole/ Sodium Chloride (Diflucan 100 Mg/ NS (Pmx)) 50 ml @ 50 mls/hr Q24H IVPB Last administered on 02/09/17 21:10; Admin Dose 50 MLS/HR; Start at 20:30; Stop 02/11/17 at 20:30 Acetaminophen (Tylenol Tab) 650 mg Q6H PRN GTB PAIN LEVEL 1-3 OR FEVER Last administered on 02/05/17 21:03; Admin Dose 650 MG; Start 02/04/17 at 10:58 Apixaban (Eliquis) 5 mg BID GTB Last administered on 02/09/17 21:11; Admin Dose 5 MG; Start 02/04/17 at 10:59 Calcium Carbonate (Tums) 500 mg BID GTB Last administered on 02/09/17 21:11; Admin Dose 500 MG; Start 02/04/17 at 11:00 Clonidine (Catapres) 0.1 mg Q6H PRN GTB BLOOD PRESSURE SBP>160; Start 02/04/17 at 11:01 Docusate Sodium (Colace Liquid Cup) 100 mg BID PRN GTB CONSTIPATION; Start at 11:30 Famotidine (Pepcid) 20 mg DAILY GTB Last administered on 02/09/17 08:39; Admin Dose 20 MG; Start 02/04/17 at 11:03 Ferrous Sulfate (Feosol Liquid Cup) 225 mg DAILY GTB Last administered on 08:36; Admin Dose 225 MG; Start 02/04/17 at 11:30 Magnesium Hydroxide (Milk Of Mag) 30 ml DAILY PRN GTB CONSTIPATION; Start 02/04 at 11:09 Montelukast Sodium (Singulair) 10 mg QHS GTB Last administered on 02/09/17 21: 21; Admin Dose 10 MG; Start 02/04/17 at 11:12 Losartan Potassium (Cozaar) 100 mg DAILY GTB Last administered on 02/09/17 08: 41; Admin Dose 100 MG; Start 02/05/17 at 09:00 Trimethoprim/ Sulfamethoxazole (Bactrim (Ds)) 1 tab BID GTB Last administered on 02/09/17 21:20; Admin Dose 1 TAB; Start 02/08/17 at 09:00 Methadone HCl (Methadone) 10 mg AM PRN GTB pain Last administered on 02/09/17 08:40; Admin Dose 10 MG; Start 02/08/17 at 14:30 Guaifenesin (Robitussin Liquid Cup) 200 mg Q4H PRN GTB COUGH Last administered on 02/10/17 06:12; Admin Dose 200 MG; Start 02/08/17 at 23:30 ANTHONY WOODARD MD Feb 10, 2017 07:55
[2017-02-10] MEDS: TIGECYCLINE 50 MG in SOD CHLORIDE 0.9% 100 ML IVPB SCH ×2 (08:13→22:09)
[2017-02-10] MEDS: FERROUS SULFATE 60 MG/ML 5ML CUP GTB SCH (08:14)
[2017-02-10] MEDS: CALCIUM CARBONATE 500 MG CHEW TAB GTB SCH ×2 (08:14→21:29)
[2017-02-10] MEDS: ASCORBIC ACID 500 MG TAB GTB SCH ×2 (08:14→21:31)
[2017-02-10] MEDS: APIXABAN 5 MG TABLET GTB SCH ×2 (08:14→21:31)
[2017-02-10] MEDS: FAMOTIDINE 20 MG TAB GTB SCH (08:14)
[2017-02-10] MEDS: MULTIVITAMINS 30 ML CUP GTB SCH (08:14)
[2017-02-10] MEDS: NPH, HUMAN INSULIN ISOPHANE 3ML VIAL SC SCH ×2 (08:16→22:26)
[2017-02-10] MEDS: LOSARTAN 50 MG TAB GTB SCH (08:19)
[2017-02-10] MEDS: TRIMETHOPRIM/SULFAMETHOX (DS) TAB GTB SCH ×2 (08:22→21:33)
[2017-02-10] MEDS: HYDROGEN PEROXIDE 118 ML TOP SCH ×2 (08:24→21:43)
[2017-02-10] MEDS: NYSTATIN 30 GM POWDER BTL TOP SCH ×2 (08:24→21:38)
[2017-02-10] MEDS: NEOMYC/POLYMYX/BACIT 30 GM OINT TOP SCH ×2 (08:24→21:44)
[2017-02-10] MEDS: COLLAGENASE 30 GM TUBE TOP SCH (08:24)
[2017-02-10] MEDS: MUPIROCIN 2% 22 GM OINT TOP SCH ×2 (08:25→21:39)
[2017-02-10 08:40] VITALS: BP 117/53; RESP 16
--- NOTE | 2017-02-10 11:32 | CONS ---
Date/Time of Note Date/Time of Note DATE: 02/10/17 TIME: 11:30 Assessment/Plan Assessment/Plan Additional Assessment/Plan Sacral decubiti DVT of left upper extremity History of paroxysmal atrial fibrillation Preserved ejection fraction Peripheral arterial disease -Blood pressure trend labile but improved. K slightly elevated, if worsens, would consider stopping ARB and could use Norvasc for BP control, Patient status post blood transfusion. If Hemoglobin continues to drop, would consider stopping anticoagulation. Consultation Date/Type/Reason Admit Date/Time Jan 15, 2017 at 14:33 Initial Consult Date 01/19/17 Type of Consultation: cv Referring Provider: RIDGE MATTHEWS MD 24 HR Interval Summary Free Text/Dictation pt seen and examined Exam/Review of Systems Vital Signs Vitals Vital Signs Date Time Temp Pulse Resp B/P Pulse Ox O2 Delivery O2 Flow Rate FiO2 02/10/17 08:40 98.9 16 16 117/53 98 02/10/17 08:00 Nasal Cannula 2.0 Intake and Output 02/09/17 02/09/17 02/10/17 15:00 23:00 07:00 Intake Total 100 ml 200 ml 100 ml Balance 100 ml 200 ml 100 ml Exam sleeping but arrousable, follows basic commands Head: normocephalic Respiratory: other (course bs, no wheeze) Cardiovascular: other (s1s2), regular rate and rhythm Gastrointestinal: bowel sounds, non-tender, soft Extremities: edema Results Result Diagram: 02/10/17 0454 02/10/17 0454 Results 24 hrs Laboratory Tests Test 02/09/17 12:28 02/09/17 17:21 02/09/17 21:07 02/10/17 01:22 Bedside Glucose 135 131 142 131 Test 02/10/17 04:54 02/10/17 05:28 02/10/17 08:11 White Blood Count 16.6 H Red Blood Count 3.52 L Hemoglobin 10.0 L Hematocrit 31.4 L Mean Corpuscular Volume 89.2 Mean Corpuscular Hemoglobin 28.4 L Mean Corpuscular Hemoglobin Concent 31.8 L Red Cell Distribution Width 16.5 H Platelet Count 281 Mean Platelet Volume 10.5 H Neutrophils % 53.8 Lymphocytes % 31.0 Monocytes % 8.7 Eosinophils % 5.1 Basophils % 0.5 Nucleated Red Blood Cells % 0.0 Neutrophils # 8.9 H Lymphocytes # 5.1 H Monocytes # 1.4 H Eosinophils # 0.8 H Basophils # 0.1 Nucleated Red Blood Cells # 0.0 Sodium Level 135 Potassium Level 5.2 H Chloride Level 100 Carbon Dioxide Level 36 H Anion Gap 4 L Blood Urea Nitrogen 34 H Creatinine 0.70 Glucose Level 102 Calcium Level 9.0 Bedside Glucose 110 148 Medications Medications Current Medications Ondansetron HCl (Zofran Inj) 4 mg Q6H PRN IV NAUSEA AND/OR VOMITING; Start at 16:30 IV Flush (NS 10 ml) 10 ml PRN PRN IV IV PROTOCOL; Start 01/15/17 at 18:30 Miscellaneous Information 1 ea NOTE XX ; Start 01/15/17 at 19:00 Glucose (Glutose) 15 gm Q15M PRN PO DECREASED GLUCOSE; Start 01/15/17 at 19:00 Glucose (Glutose) 22.5 gm Q15M PRN PO DECREASED GLUCOSE; Start 01/15/17 at 19: 00 Dextrose (D50w Syringe) 25 ml Q15M PRN IV DECREASED GLUCOSE Last administered on 01/21/17 20:37; Admin Dose 25 ML; Start 01/15/17 at 19:00 Dextrose (D50w Syringe) 50 ml Q15M PRN IV DECREASED GLUCOSE; Start 01/15/17 at 19:00 Glucagon (Glucagen) 1 mg Q15M PRN IM DECREASED GLUCOSE; Start 01/15/17 at 19:00 Glucose (Glutose) 15 gm Q15M PRN BUCCAL DECREASED GLUCOSE Last administered on 01/21/17 19:53; Admin Dose 15 GM; Start 01/15/17 at 19:00 Diagnostic Test (Pha) (Accu-Chek) 1 ea 02 XX Last administered on 01/29/17 01: 36; Admin Dose 1 EA; Start 01/16/17 at 02:00 Miscellaneous Information (Pending Santyl Order For Wound Care) This patient jean baptiste... PRN PRN XX WOUND CARE; Start 01/15/17 at 22:00 Collagenase (Santyl) 1 applic DAILY TOP Last administered on 02/10/17 08:24; Admin Dose 1 APPLIC; Start 01/16/17 at 21:00 Hydralazine HCl (Apresoline) 10 mg Q6 PRN IV ELEVATED BLOOD PRESSURE Last administered on 01/17/17 03:05; Admin Dose 10 MG; Start 01/17/17 at 03:00 Acetaminophen (Tylenol Supp) 650 mg Q6H PRN RI FEVER GREATER THAN 100.6 Last administered on 01/17/17 07:26; Admin Dose 650 MG; Start 01/17/17 at 07:00 Mupirocin (Bactroban) 1 applic BID TOP Last administered on 02/10/17 08:25; Admin Dose 1 APPLIC; Start 01/17/17 at 11:00 Nystatin (Nystatin Powder) 1 applic BID TOP Last administered on 02/10/17 08: 24; Admin Dose 1 APPLIC; Start 01/18/17 at 21:00 Bisacodyl (Dulcolax Supp) 10 mg BID PRN RI CONSTIPATION; Start 01/19/17 at 12: 00 Sodium Biphosphate/ Sodium Phosphate 133 ml 133 ml BID PRN RI CONSTIPATION; Start 01/19/17 at 12:00 Meropenem/Sodium Chloride (Merrem 1 Gm/50 ml (Pmx)) 50 ml @ 100 mls/hr Q8 IVPB Last administered on 02/10/17 05:31; Admin Dose 100 MLS/HR; Start 01/19/17 at 15:00 Zolpidem Tartrate (Ambien) 10 mg HS PRN PO INSOMNIA Last administered on 23:48; Admin Dose 10 MG; Start 01/21/17 at 13:30 IV Flush (NS 10 ml) 10 ml PRN PRN IV IV PROTOCOL; Start 01/21/17 at 19:00 Insulin Human NPH (Humulin N) 10 unit BID@08,20 SC Last administered on 08:16; Admin Dose 10 UNIT; Start 01/22/17 at 08:00 Ascorbic Acid (Vitamin C) 500 mg BID GTB Last administered on 02/10/17 08:14; Admin Dose 500 MG; Start 01/23/17 at 21:00 Multivitamins (Multivitamin) 30 ml DAILY GTB Last administered on 02/10/17 08: 14; Admin Dose 30 ML; Start 01/23/17 at 17:00 Insulin Aspart (Novolog Insulin Pen) NOVOLOG *MODERATE* ALGORITHM Q4 SC Last administered on 02/10/17 08:17; Admin Dose 2 UNIT; Start 01/27/17 at 17:00 Neomycin/ Polymyxin/ Bacitracin (Neosporin Topical Oint) 1 applic BID TOP Last administered on 02/10/17 08:24; Admin Dose 1 APPLIC; Start 01/28/17 at 09:00 Hydrogen Peroxide 1 applic 1 applic BID TOP Last administered on 02/10/17 08: 24; Admin Dose 1 APPLIC; Start 01/28/17 at 09:00 Tigecycline 50 mg/ Sodium Chloride 100 ml @ 200 mls/hr Q12 IVPB Last administered on 02/10/17 08:13; Admin Dose 200 MLS/HR; Start 01/29/17 at 21:00 Fluconazole/ Sodium Chloride (Diflucan 100 Mg/ NS (Pmx)) 50 ml @ 50 mls/hr Q24H IVPB Last administered on 02/09/17 21:10; Admin Dose 50 MLS/HR; Start at 20:30; Stop 02/11/17 at 20:30 Acetaminophen (Tylenol Tab) 650 mg Q6H PRN GTB PAIN LEVEL 1-3 OR FEVER Last administered on 02/05/17 21:03; Admin Dose 650 MG; Start 02/04/17 at 10:58 Apixaban (Eliquis) 5 mg BID GTB Last administered on 02/10/17 08:14; Admin Dose 5 MG; Start 02/04/17 at 10:59 Calcium Carbonate (Tums) 500 mg BID GTB Last administered on 02/10/17 08:14; Admin Dose 500 MG; Start 02/04/17 at 11:00 Clonidine (Catapres) 0.1 mg Q6H PRN GTB BLOOD PRESSURE SBP>160; Start 02/04/17 at 11:01 Docusate Sodium (Colace Liquid Cup) 100 mg BID PRN GTB CONSTIPATION; Start at 11:30 Famotidine (Pepcid) 20 mg DAILY GTB Last administered on 02/10/17 08:14; Admin Dose 20 MG; Start 02/04/17 at 11:03 Ferrous Sulfate (Feosol Liquid Cup) 225 mg DAILY GTB Last administered on 08:14; Admin Dose 225 MG; Start 02/04/17 at 11:30 Magnesium Hydroxide (Milk Of Mag) 30 ml DAILY PRN GTB CONSTIPATION; Start 02/04 at 11:09 Montelukast Sodium (Singulair) 10 mg QHS GTB Last administered on 02/09/17 21: 21; Admin Dose 10 MG; Start 02/04/17 at 11:12 Losartan Potassium (Cozaar) 100 mg DAILY GTB Last administered on 02/10/17 08: 19; Admin Dose 100 MG; Start 02/05/17 at 09:00 Trimethoprim/ Sulfamethoxazole (Bactrim (Ds)) 1 tab BID GTB Last administered on 02/10/17 08:22; Admin Dose 1 TAB; Start 02/08/17 at 09:00 Methadone HCl (Methadone) 10 mg AM PRN GTB pain Last administered on 02/09/17 08:40; Admin Dose 10 MG; Start 02/08/17 at 14:30 Guaifenesin (Robitussin Liquid Cup) 200 mg Q4H PRN GTB COUGH Last administered on 02/10/17 06:12; Admin Dose 200 MG; Start 02/08/17 at 23:30 Tucker Jacome DO Feb 10, 2017 11:32
--- NOTE | 2017-02-10 13:59 | PN ---
Date/Time of Note Date/Time of Note DATE: 02/10/17 TIME: 13:57 Assessment/Plan VTE Prophylaxis VTE Prophylaxis Intervention: other Lines/Catheters IV Catheter Type (from Nrsg): PICC Line Central line still needed: Yes Urinary Cath still in place: Yes Reason Cath still needed: skin wounds contaminated by urine Assessment/Plan Chief Complaint/Hosp Course sedated. no discomfort . Problems: Assessment/Plan 02/10 off am methadone, now note lung congestion with inspir. arousible. k mild elevated 5.3 lower dose of methadone 10 am and still sedated. wound reported mild improvement 02/07 wbc going back up and the hgb going down 02/08 wbc still going up. pt sedated. nurse and family says always sedated. --hgb 7.9 transfusine 1u prbc on sacral stage IV decub, growing proteus and ecoli and s.aureus. on merrem/vanco , being treated by ID. 02/19 debrided and eval for osteo. called ortho- they report that nothing for them to do regarding fx or osteo of sacrum. wbc improving. -path report +osteo. ortho called and will not treat. - vre grew. now on tigecycline/merrem. -if wound does not improve, ID is recommending diverting colostomy.---wound is mildly better. multi bugs growing. ID deciding if any changes of med. wbc has cont to improve. -currently afebrile. -----ID reports 02/08 - Acinetobacter is resistant to colisitin, intermediate to minocycline (PROMISE of 8) and Tigecycline PROMISE is 2 (no interpretation available but likely sensitive) continue with merrem/tigecycline thru 03/12, monitor ESR on a weekly basis wound appears to be improving and ESR has come down will add bactrim temporarily to see if it will improve her leukocytosis one of the possible side effects of tigecycline is leukocytosis lung congestion get cxr, start regular HHN poor appetite- gtube in place. pt is allowed p.o. intake with aspiration precautions. not oral eating much since sedated. mentation better with less pain med. will open eyes and answer questions today. pain controlled with methadone. will consider if able to decrease the am dose. pt too sedated. will decrease morning methadone. pt needs to be awake , with some pain otherwise subsequent pneumo. 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 dmII since gtube feeding, adjusting the insulin. doing well accu check stable. paroxysmal afib on last admission- occurred during sepsis and intubation. pt changed to elliquis. stable h/o left dvt of UE. now on elliquis. cont til dvt resolves. due to blood transfusion may need to hold eliquis Exam/Review of Systems Vital Signs Vitals Vital Signs Date Time Temp Pulse Resp B/P Pulse Ox O2 Delivery O2 Flow Rate FiO2 02/10/17 08:40 98.9 16 16 117/53 98 02/10/17 08:00 Nasal Cannula 2.0 Intake and Output 02/09/17 02/09/17 02/10/17 15:00 23:00 07:00 Intake Total 100 ml 200 ml 100 ml Balance 100 ml 200 ml 100 ml Results Result Diagram: 02/10/17 0454 02/10/17 0454 Results 24 hrs Laboratory Tests Test 02/09/17 17:21 02/09/17 21:07 02/10/17 01:22 02/10/17 04:54 Bedside Glucose 131 142 131 White Blood Count 16.6 H Red Blood Count 3.52 L Hemoglobin 10.0 L Hematocrit 31.4 L Mean Corpuscular Volume 89.2 Mean Corpuscular Hemoglobin 28.4 L Mean Corpuscular Hemoglobin Concent 31.8 L Red Cell Distribution Width 16.5 H Platelet Count 281 Mean Platelet Volume 10.5 H Neutrophils % 53.8 Lymphocytes % 31.0 Monocytes % 8.7 Eosinophils % 5.1 Basophils % 0.5 Nucleated Red Blood Cells % 0.0 Neutrophils # 8.9 H Lymphocytes # 5.1 H Monocytes # 1.4 H Eosinophils # 0.8 H Basophils # 0.1 Nucleated Red Blood Cells # 0.0 Sodium Level 135 Potassium Level 5.2 H Chloride Level 100 Carbon Dioxide Level 36 H Anion Gap 4 L Blood Urea Nitrogen 34 H Creatinine 0.70 Glucose Level 102 Calcium Level 9.0 Test 02/10/17 05:28 02/10/17 08:11 02/10/17 12:56 Bedside Glucose 110 148 136 Medications Medications Current Medications Ondansetron HCl (Zofran Inj) 4 mg Q6H PRN IV NAUSEA AND/OR VOMITING; Start at 16:30 IV Flush (NS 10 ml) 10 ml PRN PRN IV IV PROTOCOL; Start 01/15/17 at 18:30 Miscellaneous Information 1 ea NOTE XX ; Start 01/15/17 at 19:00 Glucose (Glutose) 15 gm Q15M PRN PO DECREASED GLUCOSE; Start 01/15/17 at 19:00 Glucose (Glutose) 22.5 gm Q15M PRN PO DECREASED GLUCOSE; Start 01/15/17 at 19: 00 Dextrose (D50w Syringe) 25 ml Q15M PRN IV DECREASED GLUCOSE Last administered on 01/21/17 20:37; Admin Dose 25 ML; Start 01/15/17 at 19:00 Dextrose (D50w Syringe) 50 ml Q15M PRN IV DECREASED GLUCOSE; Start 01/15/17 at 19:00 Glucagon (Glucagen) 1 mg Q15M PRN IM DECREASED GLUCOSE; Start 01/15/17 at 19:00 Glucose (Glutose) 15 gm Q15M PRN BUCCAL DECREASED GLUCOSE Last administered on 01/21/17 19:53; Admin Dose 15 GM; Start 01/15/17 at 19:00 Diagnostic Test (Pha) (Accu-Chek) 1 ea 02 XX Last administered on 01/29/17 01: 36; Admin Dose 1 EA; Start 01/16/17 at 02:00 Miscellaneous Information (Pending Santyl Order For Wound Care) This patient jean baptiste... PRN PRN XX WOUND CARE; Start 01/15/17 at 22:00 Collagenase (Santyl) 1 applic DAILY TOP Last administered on 02/10/17 08:24; Admin Dose 1 APPLIC; Start 01/16/17 at 21:00 Hydralazine HCl (Apresoline) 10 mg Q6 PRN IV ELEVATED BLOOD PRESSURE Last administered on 01/17/17 03:05; Admin Dose 10 MG; Start 01/17/17 at 03:00 Acetaminophen (Tylenol Supp) 650 mg Q6H PRN [place] FEVER GREATER THAN 100.6 Last administered on 01/17/17 07:26; Admin Dose 650 MG; Start 01/17/17 at 07:00 Mupirocin (Bactroban) 1 applic BID TOP Last administered on 02/10/17 08:25; Admin Dose 1 APPLIC; Start 01/17/17 at 11:00 Nystatin (Nystatin Powder) 1 applic BID TOP Last administered on 02/10/17 08: 24; Admin Dose 1 APPLIC; Start 01/18/17 at 21:00 Bisacodyl (Dulcolax Supp) 10 mg BID PRN AL CONSTIPATION; Start 01/19/17 at 12: 00 Sodium Biphosphate/ Sodium Phosphate 133 ml 133 ml BID PRN AL CONSTIPATION; Start 01/19/17 at 12:00 Meropenem/Sodium Chloride (Merrem 1 Gm/50 ml (Pmx)) 50 ml @ 100 mls/hr Q8 IVPB Last administered on 02/10/17 05:31; Admin Dose 100 MLS/HR; Start 01/19/17 at 15:00 Zolpidem Tartrate (Ambien) 10 mg HS PRN PO INSOMNIA Last administered on 23:48; Admin Dose 10 MG; Start 01/21/17 at 13:30 IV Flush (NS 10 ml) 10 ml PRN PRN IV IV PROTOCOL; Start 01/21/17 at 19:00 Insulin Human NPH (Humulin N) 10 unit BID@08,20 SC Last administered on 08:16; Admin Dose 10 UNIT; Start 01/22/17 at 08:00 Ascorbic Acid (Vitamin C) 500 mg BID GTB Last administered on 02/10/17 08:14; Admin Dose 500 MG; Start 01/23/17 at 21:00 Multivitamins (Multivitamin) 30 ml DAILY GTB Last administered on 02/10/17 08: 14; Admin Dose 30 ML; Start 01/23/17 at 17:00 Insulin Aspart (Novolog Insulin Pen) NOVOLOG *MODERATE* ALGORITHM Q4 SC Last administered on 02/10/17 08:17; Admin Dose 2 UNIT; Start 01/27/17 at 17:00 Neomycin/ Polymyxin/ Bacitracin (Neosporin Topical Oint) 1 applic BID TOP Last administered on 02/10/17 08:24; Admin Dose 1 APPLIC; Start 01/28/17 at 09:00 Hydrogen Peroxide 1 applic 1 applic BID TOP Last administered on 02/10/17 08: 24; Admin Dose 1 APPLIC; Start 01/28/17 at 09:00 Tigecycline 50 mg/ Sodium Chloride 100 ml @ 200 mls/hr Q12 IVPB Last administered on 02/10/17 08:13; Admin Dose 200 MLS/HR; Start 01/29/17 at 21:00 Fluconazole/ Sodium Chloride (Diflucan 100 Mg/ NS (Pmx)) 50 ml @ 50 mls/hr Q24H IVPB Last administered on 02/09/17 21:10; Admin Dose 50 MLS/HR; Start at 20:30; Stop 02/11/17 at 20:30 Acetaminophen (Tylenol Tab) 650 mg Q6H PRN GTB PAIN LEVEL 1-3 OR FEVER Last administered on 02/05/17 21:03; Admin Dose 650 MG; Start 02/04/17 at 10:58 Apixaban (Eliquis) 5 mg BID GTB Last administered on 02/10/17 08:14; Admin Dose 5 MG; Start 02/04/17 at 10:59 Calcium Carbonate (Tums) 500 mg BID GTB Last administered on 02/10/17 08:14; Admin Dose 500 MG; Start 02/04/17 at 11:00 Clonidine (Catapres) 0.1 mg Q6H PRN GTB BLOOD PRESSURE SBP>160; Start 02/04/17 at 11:01 Docusate Sodium (Colace Liquid Cup) 100 mg BID PRN GTB CONSTIPATION; Start at 11:30 Famotidine (Pepcid) 20 mg DAILY GTB Last administered on 02/10/17 08:14; Admin Dose 20 MG; Start 02/04/17 at 11:03 Ferrous Sulfate (Feosol Liquid Cup) 225 mg DAILY GTB Last administered on 08:14; Admin Dose 225 MG; Start 02/04/17 at 11:30 Magnesium Hydroxide (Milk Of Mag) 30 ml DAILY PRN GTB CONSTIPATION; Start 02/04 at 11:09 Montelukast Sodium (Singulair) 10 mg QHS GTB Last administered on 02/09/17 21: 21; Admin Dose 10 MG; Start 02/04/17 at 11:12 Losartan Potassium (Cozaar) 100 mg DAILY GTB Last administered on 02/10/17 08: 19; Admin Dose 100 MG; Start 02/05/17 at 09:00 Trimethoprim/ Sulfamethoxazole (Bactrim (Ds)) 1 tab BID GTB Last administered on 02/10/17 08:22; Admin Dose 1 TAB; Start 02/08/17 at 09:00 Methadone HCl (Methadone) 10 mg AM PRN GTB pain Last administered on 02/09/17 08:40; Admin Dose 10 MG; Start 02/08/17 at 14:30 Guaifenesin (Robitussin Liquid Cup) 200 mg Q4H PRN GTB COUGH Last administered on 02/10/17 06:12; Admin Dose 200 MG; Start 02/08/17 at 23:30 RIDGE MATTHEWS MD Feb 10, 2017 13:59
[2017-02-10 14:00] VITALS: BP 113/56; RESP 18
[2017-02-10] MEDS: LEVALBUTEROL (NEB) 0.31 MG/3 ML AMP HHN SCH ×2 (14:00→21:50)
--- NOTE | 2017-02-10 16:29 | RADRPT ---
PROCEDURE: XR Chest. CLINICAL INDICATION: Shortness of breath. TECHNIQUE: Single frontal view. COMPARISON: 01/21/2017. FINDINGS: The right arm PICC line remains in satisfactory position. There is left basilar mild atelectasis or pneumonia. The lungs are clear. The heart size is normal. There is calcification in the aorta consistent with atherosclerosis. There is no pleural effusion or pneumothorax. There is left shoulder calcific tendonitis. IMPRESSION: 1. Mild left basilar atelectasis or pneumonia. 2. Right arm PICC line. 3. Atherosclerosis. 4. Left shoulder calcific tendonitis. RPTAT: QQ .Tod Elias MD, MD Date Time Electronically viewed and signed by .Tod Elias MD, on 02/10/2017 16:28 .R/
[2017-02-10 19:57] VITALS: BP 123/53; RESP 19
[2017-02-10] MEDS: FLUCONAZOLE 100 MG/NS (PMX) 50 ML IVPB SCH (21:29)
[2017-02-10] MEDS: MONTELUKAST 10 MG TAB GTB SCH (21:31)
[2017-02-10] MEDS: ZOLPIDEM 5 MG TAB PO PRN (22:27)
[2017-02-11] MEDS: INSULIN ASPART [NOVOLOG] 3 ML PEN SC SCH ×6 (01:00→21:00)
[2017-02-11] MEDS: ACCU-CHEK XX SCH (01:45)
[2017-02-11] MEDS: LEVALBUTEROL (NEB) 0.31 MG/3 ML AMP HHN SCH ×4 (02:36→19:32)
[2017-02-11 02:49] VITALS: BP 128/58; RESP 18
[2017-02-11] MEDS: MEROPENEM 1 GM/50ML(PMX) 50 ML IVPB SCH ×3 (05:49→23:19)
[2017-02-11 08:15] VITALS: BP 109/51; RESP 18
[2017-02-11] MEDS: NPH, HUMAN INSULIN ISOPHANE 3ML VIAL SC SCH ×2 (08:48→21:11)
[2017-02-11] MEDS: FAMOTIDINE 20 MG TAB GTB SCH (08:50)
[2017-02-11] MEDS: APIXABAN 5 MG TABLET GTB SCH ×2 (08:50→21:12)
[2017-02-11] MEDS: MULTIVITAMINS 30 ML CUP GTB SCH (08:50)
[2017-02-11] MEDS: LOSARTAN 50 MG TAB GTB SCH (08:51)
[2017-02-11] MEDS: TRIMETHOPRIM/SULFAMETHOX (DS) TAB GTB SCH ×2 (08:51→21:12)
[2017-02-11] MEDS: ASCORBIC ACID 500 MG TAB GTB SCH ×2 (08:51→21:12)
[2017-02-11] MEDS: TIGECYCLINE 50 MG in SOD CHLORIDE 0.9% 100 ML IVPB SCH ×2 (08:51→21:15)
[2017-02-11] MEDS: CALCIUM CARBONATE 500 MG CHEW TAB GTB SCH ×2 (08:51→21:12)
[2017-02-11] MEDS: FERROUS SULFATE 60 MG/ML 5ML CUP GTB SCH (08:51)
[2017-02-11] MEDS: METHADONE 10 MG TAB GTB PRN ×2 (08:52→21:12)
[2017-02-11] MEDS: MUPIROCIN 2% 22 GM OINT TOP SCH ×2 (09:00→23:18)
[2017-02-11] MEDS: NYSTATIN 30 GM POWDER BTL TOP SCH ×3 (09:00→23:17)
[2017-02-11] MEDS: NEOMYC/POLYMYX/BACIT 30 GM OINT TOP SCH ×2 (09:00→23:18)
[2017-02-11] MEDS: HYDROGEN PEROXIDE 118 ML TOP SCH ×2 (09:00→23:18)
[2017-02-11] MEDS: COLLAGENASE 30 GM TUBE TOP SCH (09:00)
[2017-02-11 12:53] LABS: CALCIUM 8.5 mg/dl (8.4-10.2); CREATININE 0.73 mg/dl (0.44-1.00); POTASSIUM 5.1 mmol/L (3.5-5.1)
[2017-02-11 14:02] VITALS: BP 118/53; RESP 18
[2017-02-11 19:43] VITALS: BP 113/55; RESP 16
[2017-02-11] MEDS: MONTELUKAST 10 MG TAB GTB SCH (21:12)
[2017-02-11] MEDS: FLUCONAZOLE 100 MG/NS (PMX) 50 ML IVPB SCH (21:15)
[2017-02-12] MEDS: INSULIN ASPART [NOVOLOG] 3 ML PEN SC SCH ×6 (01:00→21:00)
[2017-02-12] MEDS: LEVALBUTEROL (NEB) 0.31 MG/3 ML AMP HHN SCH ×4 (01:10→19:34)
[2017-02-12] MEDS: ACCU-CHEK XX SCH (02:00)
[2017-02-12 02:10] VITALS: BP 111/56; RESP 16
[2017-02-12] MEDS: MEROPENEM 1 GM/50ML(PMX) 50 ML IVPB SCH ×3 (05:20→22:07)
[2017-02-12 05:29] LABS: CALCIUM 8.7 mg/dl (8.4-10.2); CREATININE 0.63 mg/dl (0.44-1.00); POTASSIUM 5.7 mmol/L (3.5-5.1)
[2017-02-12 05:45] LABS: BASOPHIL # 0.1 10^3/ul (0.0-0.1); BASOPHILS % 0.5 % (0.0-2.0); EOSINOPHILS # 0.9 10^3/ul (0.0-0.5); EOSINOPHILS % 6.3 % (0.0-7.0); HEMATOCRIT 31.6 % (37.0-47.0); HEMOGLOBIN 9.8 g/dl (12.0-16.0); LYMPHOCYTES # 4.3 10^3/ul (0.8-2.9); LYMPHOCYTES % 28.7 % (15.0-51.0); MEAN CORPUSCULAR HEMOGLOBIN 27.8 pg (29.0-33.0); MEAN CORPUSCULAR VOLUME 89.5 fl (82.0-101.0); MEAN PLATELET VOLUME 10.2 fl (7.4-10.4); MONOCYTE # 1.4 10^3/ul (0.3-0.9); MONOCYTES % 9.6 % (0.0-11.0); NEUTROPHIL # 8.1 10^3/ul (1.6-7.5); NEUTROPHILS % 53.8 % (39.0-77.0); PLATELET COUNT 318 10^3/UL (140-415); RED BLOOD COUNT 3.53 10^6/ul (4.20-5.40); RED CELL DISTRIBUTION WIDTH 17.4 % (11.5-14.5)
[2017-02-12] MEDS: MULTIVITAMINS 30 ML CUP GTB SCH (08:19)
[2017-02-12] MEDS: HYDROCODONE/APAP (5/325) TAB GTB PRN ×2 (08:19→16:17)
[2017-02-12] MEDS: TIGECYCLINE 50 MG in SOD CHLORIDE 0.9% 100 ML IVPB SCH ×2 (08:19→22:08)
[2017-02-12] MEDS: NPH, HUMAN INSULIN ISOPHANE 3ML VIAL SC SCH ×2 (08:20→22:06)
[2017-02-12] MEDS: CALCIUM CARBONATE 500 MG CHEW TAB GTB SCH ×2 (08:22→22:07)
[2017-02-12] MEDS: TRIMETHOPRIM/SULFAMETHOX (DS) TAB GTB SCH ×2 (08:22→22:07)
[2017-02-12] MEDS: APIXABAN 5 MG TABLET GTB SCH ×2 (08:22→22:07)
[2017-02-12] MEDS: FAMOTIDINE 20 MG TAB GTB SCH (08:22)
[2017-02-12] MEDS: FERROUS SULFATE 60 MG/ML 5ML CUP GTB SCH (08:22)
[2017-02-12] MEDS: ASCORBIC ACID 500 MG TAB GTB SCH ×2 (08:22→22:07)
[2017-02-12] MEDS: LOSARTAN 50 MG TAB GTB SCH (08:25)
--- NOTE | 2017-02-12 08:27 | PN ---
Date/Time of Note Date/Time of Note DATE: 02/11/17 TIME: 14:42 Assessment/Plan Lines/Catheters IV Catheter Type (from Nrs): PICC Line Sullivan in Place (from Nrs): Yes Assessment/Plan Assessment/Plan [facility] Progress Note (late entry) Date of Service: 02/11/17 Today's Impression & Plan: Overall stable with continued issues with elevated and fluctuating WBC. Sacral wound appears to be healing relatively well despite known osteomyelitis of sacrum, confirmed on pathology and documented on wound care photos and periodic exams by myself. Osteomyelitis and other infections are likely responsible for elevated white blood cell count. No indication for acute surgical intervention. No new recommendations. Patient continues to demonstrate failure to thrive symptoms despite what appears to be be adequate care and control of known drivers. I did spend quite a bit of time with patient's family (her daughter, sister and grand daughter) reviewed my impression of the overall care and strongly recommended that they discuss code status among the family with consideration for changing it to chemical code only. Family appeared to be receptive to the idea. Also discussed wound with the wound care team. With above assessment, I've recommended the following for today: 1. Cont dressing changes 2. Cont PEG tube feeds 3. Continue broad-spectrum antimicrobials as needed for osteomyelitis 4. Will follow from periphery and visit as needed 5. Please continue to document wound condition with pictures with each wound vac change 6. CT abd/pelvis for surveillance of the wound in the next 2-3 days 7. Please continue discussion with patient's family regarding code status Nature of presenting problem: High complexity Thank you again for your great care of this very pleasant patient and wonderful family. If there are any questions, please feel free to call me at [phone]. Disclaimer: Inadvertent spelling or grammatical errors are likely due to EHR/ dictation software use and do not reflect on the overall quality of patient care. Updated clinical summary: A very-pleasant but unfortunate 81-year-old lady with multiple comorbidities including diabetes mellitus complicated by left heel decubitus ulcer as well as right below the knee amputation and paroxysmal atrial fibrillation, presenting with stage IV decubitus ulcer overlying her sacrum. Comorbidities: 1. Infected stage IV sacral decubitus pressure ulcer with possible osteomyelitis of the coccyx; s/p excisional debridement with scissors of a 10 x 5 x 3.5 cm coccygeal and sacral decubitus ulcer and removal of 30 cm of tissue including small part of the coccyx bone (ostectomy, 1x1x1 cm) and down to muscle in the upper part of the ulcer area and application of 2 g of Micro Matrix paste 2. Diabetes mellitus complicated by left heel decubitus ulcer as well as right below the knee amputation 3. Paroxysmal atrial fibrillation 4. Left upper extremity DVT with superficial thrombosis 5. Hypertension 6. Aspiration pneumonia 7. Osteomyelitis at the posterior calcaneal margin, treated with meropenem and vancomycin 8. Severe malnutrition with prealbumin 3.1 after hydration and albumin of 1.5 9. Peripheral vascular disease 10. Dementia 11. BMI 27.5 Subjective: No major events or complaints; no major abd pain and under control with medications; no n/v/d; no sob or cp; + flatus; + BM; - activity Objective: Vitals: See below Exam: GENERAL: On exam, the patient was laying in bed and appeared to be comfortable and in no acute distress. ABDOMEN: Soft, nontender and nondistended. Incision dressings are clean, dry and intact without any evidence of erythema, edema, discharge, or hernia. There are no peritoneal signs or guarding. PEG dressing clean and tube feeds ongoing. I reviewed the latest pictures from the sacral wound. There was presence of nice beefy red granulation tissue forming in the cavity and there was no obvious evidence of any necrotic material that needed excisional debridement. SKIN: Skin appears to be pink and feels warm to touch. NEUROLOGIC: Patient is arousable and follows simple commands appropriately. Not much more interactions with the examiner. Exam/Review of Systems Vital Signs Vitals Vital Signs Date Time Temp Pulse Resp B/P Pulse Ox O2 Delivery O2 Flow Rate FiO2 02/12/17 02:10 98.8 74 16 111/56 100 02/12/17 01:11 Nasal Cannula 2.0 Intake and Output 02/11/17 02/11/17 02/12/17 15:00 23:00 07:00 Intake Total 150 ml 1080 ml 1410 ml Output Total 510 ml 1450 ml Balance 150 ml 570 ml -40 ml Results Result Diagram: 02/12/17 0457 02/12/17 0457 OMAR HINOJOSA M.D. Feb 12, 2017 08:27
[2017-02-12 08:50] VITALS: BP 124/58; RESP 18
[2017-02-12] MEDS: HYDROGEN PEROXIDE 118 ML TOP SCH ×2 (09:00→22:10)
[2017-02-12] MEDS: NEOMYC/POLYMYX/BACIT 30 GM OINT TOP SCH ×2 (09:00→22:10)
[2017-02-12] MEDS: COLLAGENASE 30 GM TUBE TOP SCH (09:00)
--- NOTE | 2017-02-12 10:21 | CONS ---
Date/Time of Note Date/Time of Note DATE: 02/12/17 TIME: 10:16 Assessment/Plan Assessment/Plan Chief Complaint/Hosp Course 1) progressive sacral ulcer, surrounding cellulitis await surgical input and debridement, consider MRI depending upon surgical eval wound cx to be obtained continue with vanco/merrem check ESR, CRP in a.m. 01/17 - proteus and another GNR in wound cx continue with merrem/vanco esr and CRP are moderately elevated mrsa to nares to start bactroban await surgical input pt is more awake today and able to answer some questions in chilean 01/18 - pt persistence of fever and elevated wbc is either due to an undrained abscess or inadequate antibiotics await wound care eval and surgical debridement will order MRI scan if no wound care is delivered by tomorrow wound cx has proteus, GNR and enterococcus continue with vanco/merrem at present 01/19 - wound cx are all sensitive to current antibiotics of vanco/merrem MRI of pelvis/abd was done but results not available pt to get debridement later this am. 01/20 - s/p debridement, some bone was shaved, MRI did not show osteo await path report continue with vanco/merrem fevers and WBC improved post debridement pt will need good nutrition to heal this wound, consider g-tube if pt not eating well 01/22 - pt to get g-tube for better nutrition continue with vanco/merrem thru 02/01/17 consider doxy for 2 weeks after that path specimen did not identify bone to examine for osteo 01/25 - WBC improved today and ESR was down from 78 to 65 no new issues continue with vanco/merrrem at present thru 02/01 then po doxy for 2 weeks 01/26 - re-culture the site continue vanco/merrem 01/27 - vac pump is applied re-cx of site has GNR so far 01/28 - acinetobacter now present and addendum to path shows osteomyelitis continue with merrem change vanco to minocycline send out for sensi's for colistin, avycaz, minocycline and tigecycline 01/29 - 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 01/30 - esr was a bit better continue with tigecycline/merrem, no need for diverting colostomy at this time as stool does not appear to be contaminating the sacral wound await final send out sensi's on the acinetobacter wbc is up but tigecycline can cause elevation of wbc 02/01 - spoke to surgeon who said wound is improved, but there is farooq exposure still awaitin sensi's on the acinetobacter wbc is slowly coming down but tigecycline can cause an increase in WBC continue merrem/tigecycline 02/04 - spoke to lab and expanded sensi's to the acinetobacter should be back by tomorrow maintain merrem/tigecycline at present 02/05 focus lab system is down and it has delayed the expanded sensi's for acinetobacter maintain merrem/tigecycline for now 02/08 - Acinetobacter is resistant to colisitin, intermediate to minocycline ( PROMISE of 8) and Tigecycline PROMISE is 2 (no interpretation available but likely sensitive) continue with merrem/tigecycline thru 03/12, monitor ESR on a weekly basis wound appears to be improving and ESR has come down will add bactrim temporarily to see if it will improve her leukocytosis one of the possible side effects of tigecycline is leukocytosis though 02/10 - no change with WBC or creatinine since addition of bactrim sacral wound measurements are slowly decreasing continue with merrem/tigecycline/bactrim if creatinine remains stable and wound continues to improve will continue with this regimen 02/12 - pt tolerating current regimen of merrem/tigecycline/bactrim CT abd/pelv planned in the next few days check CBC, BMP, ESR, CRP on wednesday 2) L heal ulcer with eschar no surrounding redness noted on picture 3) PVD 4) recent hx of LUE DVT 5) HTN 6) leukocytosis 01/26 - get u/a and urine cx, c.dif was sent off re-culture the sacral wound site doubt a pulmonary issue 01/27 - c.dif was neg WBC has improved without change in antibiotics urine cx is NGTD (prior one was only yeast) wound cx has GNR only so far continue present management 01/28 - wound cx is now growing highly resistant acinetobacter will adjust antibiotics and await send out sensi's to verify the best regimen for pt 01/29 - wound cx also grew VRE now on merrem/tigecycline 01/30 - await final sensi' results for acinetobacter tigecycline can cause increase in the WBC 02/04 - improving, but slight fever and increase in WBC today, to continue to monitor will re-check u/a and urine cx and consider CXR 02/05 - u/a shows no pyuria, yeast in urine is not significant and does not need treatment c.dif was negative fevers and wbc improved tigecycline can cause some leukocytosis so WBC may not return to normal while on it 02/08 - will add bactrim to see if leukocytosis is due to infection no other infection appreciated other than sacral osteo, yeast in urine is a colonizer if no change with WBC after on bactrim for a week will d/c it continue merrem/tigecycline thruy 03/12, monitor ESR weekly 02/10 - no change 02/12 minimal improvement, continue to monitor no sign of new infection Problems: Consultation Date/Type/Reason Admit Date/Time Jan 15, 2017 at 14:33 Initial Consult Date 01/16/17 Type of Consultation: ID Referring Provider: RIDGE MATTHEWS MD 24 HR Interval Summary Free Text/Dictation pt able to answer simple questions in chilean no V, N, D, SOB not currently in pain Exam/Review of Systems Vital Signs Vitals Vital Signs Date Time Temp Pulse Resp B/P Pulse Ox O2 Delivery O2 Flow Rate FiO2 02/12/17 08:50 99.0 68 18 124/58 98 02/12/17 08:22 Nasal Cannula 2.0 Intake and Output 02/11/17 02/11/17 02/12/17 15:00 23:00 07:00 Intake Total 150 ml 1080 ml 1410 ml Output Total 510 ml 1450 ml Balance 150 ml 570 ml -40 ml Exam Constitutional: alert ENMT: mucosa pink and moist Respiratory: clear to auscultation Cardiovascular: regular rate and rhythm Gastrointestinal: non-tender, soft Results Result Diagram: 02/12/17 0457 02/12/17 0457 Results 24 hrs Laboratory Tests Test 02/11/17 12:19 02/11/17 12:40 02/11/17 17:19 02/11/17 21:07 Sodium Level 135 Potassium Level 5.1 Chloride Level 100 Carbon Dioxide Level 32 H Anion Gap 8 Blood Urea Nitrogen 36 H Creatinine 0.73 Glucose Level 110 Calcium Level 8.5 Bedside Glucose 111 123 154 Test 02/11/17 23:08 02/12/17 01:28 02/12/17 04:57 02/12/17 05:20 Bedside Glucose 180 118 123 White Blood Count 15.0 H Red Blood Count 3.53 L Hemoglobin 9.8 L Hematocrit 31.6 L Mean Corpuscular Volume 89.5 Mean Corpuscular Hemoglobin 27.8 L Mean Corpuscular Hemoglobin Concent 31.0 L Red Cell Distribution Width 17.4 H Platelet Count 318 Mean Platelet Volume 10.2 Neutrophils % 53.8 Lymphocytes % 28.7 Monocytes % 9.6 Eosinophils % 6.3 Basophils % 0.5 Nucleated Red Blood Cells % 0.0 Neutrophils # 8.1 H Lymphocytes # 4.3 H Monocytes # 1.4 H Eosinophils # 0.9 H Basophils # 0.1 Nucleated Red Blood Cells # 0.0 Sodium Level 136 Potassium Level 5.7 H Chloride Level 101 Carbon Dioxide Level 35 H Anion Gap 6 L Blood Urea Nitrogen 35 H Creatinine 0.63 Glucose Level 121 Calcium Level 8.7 Test 02/12/17 08:14 Bedside Glucose 160 Medications Medications Current Medications Ondansetron HCl (Zofran Inj) 4 mg Q6H PRN IV NAUSEA AND/OR VOMITING; Start at 16:30 IV Flush (NS 10 ml) 10 ml PRN PRN IV IV PROTOCOL; Start 01/15/17 at 18:30 Miscellaneous Information 1 ea NOTE XX ; Start 01/15/17 at 19:00 Glucose (Glutose) 15 gm Q15M PRN PO DECREASED GLUCOSE; Start 01/15/17 at 19:00 Glucose (Glutose) 22.5 gm Q15M PRN PO DECREASED GLUCOSE; Start 01/15/17 at 19: 00 Dextrose (D50w Syringe) 25 ml Q15M PRN IV DECREASED GLUCOSE Last administered on 01/21/17t 20:37; Admin Dose 25 ML; Start 01/15/17 at 19:00 Dextrose (D50w Syringe) 50 ml Q15M PRN IV DECREASED GLUCOSE; Start 01/15/17 at 19:00 Glucagon (Glucagen) 1 mg Q15M PRN IM DECREASED GLUCOSE; Start 01/15/17 at 19:00 Glucose (Glutose) 15 gm Q15M PRN BUCCAL DECREASED GLUCOSE Last administered on 01/21/17 19:53; Admin Dose 15 GM; Start 01/15/17 at 19:00 Diagnostic Test (Pha) (Accu-Chek) 1 ea 02 XX Last administered on 01/29/17 01: 36; Admin Dose 1 EA; Start 01/16/17 at 02:00 Miscellaneous Information (Pending Santyl Order For Wound Care) This patient jean baptiste... PRN PRN XX WOUND CARE; Start 01/15/17 at 22:00 Collagenase (Santyl) 1 applic DAILY TOP Last administered on 02/11/17 09:00; Admin Dose 1 APPLIC; Start 01/16/17 at 21:00 Hydralazine HCl (Apresoline) 10 mg Q6 PRN IV ELEVATED BLOOD PRESSURE Last administered on 01/17/17 03:05; Admin Dose 10 MG; Start 01/17/17 at 03:00 Acetaminophen (Tylenol Supp) 650 mg Q6H PRN [place] FEVER GREATER THAN 100.6 Last administered on 01/17/17 07:26; Admin Dose 650 MG; Start 01/17/17 at 07:00 Nystatin (Nystatin Powder) 1 applic BID TOP Last administered on 02/11/17 23: 17; Admin Dose 1 APPLIC; Start 01/18/17 at 21:00 Bisacodyl (Dulcolax Supp) 10 mg BID PRN [place] CONSTIPATION; Start 01/19/17 at 12: 00 Sodium Biphosphate/ Sodium Phosphate 133 ml 133 ml BID PRN ME CONSTIPATION; Start 01/19/17 at 12:00 Meropenem/Sodium Chloride (Merrem 1 Gm/50 ml (Pmx)) 50 ml @ 100 mls/hr Q8 IVPB Last administered on 02/12/17 05:20; Admin Dose 100 MLS/HR; Start 01/19/17 at 15:00 Zolpidem Tartrate (Ambien) 10 mg HS PRN PO INSOMNIA Last administered on 22:27; Admin Dose 10 MG; Start 01/21/17 at 13:30 IV Flush (NS 10 ml) 10 ml PRN PRN IV IV PROTOCOL; Start 01/21/17 at 19:00 Insulin Human NPH (Humulin N) 10 unit BID@08,20 SC Last administered on 08:20; Admin Dose 10 UNIT; Start 01/22/17 at 08:00 Ascorbic Acid (Vitamin C) 500 mg BID GTB Last administered on 02/12/17 08:22; Admin Dose 500 MG; Start 01/23/17 at 21:00 Multivitamins (Multivitamin) 30 ml DAILY GTB Last administered on 02/12/17 08: 19; Admin Dose 30 ML; Start 01/23/17 at 17:00 Insulin Aspart (Novolog Insulin Pen) NOVOLOG *MODERATE* ALGORITHM Q4 SC Last administered on 02/12/17 08:21; Admin Dose 2 UNIT; Start 01/27/17 at 17:00 Neomycin/ Polymyxin/ Bacitracin (Neosporin Topical Oint) 1 applic BID TOP Last administered on 02/11/17 23:18; Admin Dose 1 APPLIC; Start 01/28/17 at 09:00 Hydrogen Peroxide 1 applic 1 applic BID TOP Last administered on 02/11/17 23: 18; Admin Dose 1 APPLIC; Start 01/28/17 at 09:00 Tigecycline/ Sodium Chloride (Tygacil/NS) 100 ml @ 200 mls/hr Q12 IVPB Last administered on 02/12/17 08:19; Admin Dose 200 MLS/HR; Start 01/29/17 at 21:00 Acetaminophen (Tylenol Tab) 650 mg Q6H PRN GTB PAIN LEVEL 1-3 OR FEVER Last administered on 02/05/17 21:03; Admin Dose 650 MG; Start 02/04/17 at 10:58 Apixaban (Eliquis) 5 mg BID GTB Last administered on 02/12/17 08:22; Admin Dose 5 MG; Start 02/04/17 at 10:59 Calcium Carbonate (Tums) 500 mg BID GTB Last administered on 02/12/17 08:22; Admin Dose 500 MG; Start 02/04/17 at 11:00 Clonidine (Catapres) 0.1 mg Q6H PRN GTB BLOOD PRESSURE SBP>160; Start 02/04/17 at 11:01 Docusate Sodium (Colace Liquid Cup) 100 mg BID PRN GTB CONSTIPATION; Start at 11:30 Famotidine (Pepcid) 20 mg DAILY GTB Last administered on 02/12/17 08:22; Admin Dose 20 MG; Start 02/04/17 at 11:03 Ferrous Sulfate (Feosol Liquid Cup) 225 mg DAILY GTB Last administered on 08:22; Admin Dose 225 MG; Start 02/04/17 at 11:30 Magnesium Hydroxide (Milk Of Mag) 30 ml DAILY PRN GTB CONSTIPATION; Start 02/04 at 11:09 Montelukast Sodium (Singulair) 10 mg QHS GTB Last administered on 02/11/17 21: 12; Admin Dose 10 MG; Start 02/04/17 at 11:12 Losartan Potassium (Cozaar) 100 mg DAILY GTB Last administered on 02/12/17 08: 25; Admin Dose 100 MG; Start 02/05/17 at 09:00 Trimethoprim/ Sulfamethoxazole (Bactrim (Ds)) 1 tab BID GTB Last administered on 02/12/17 08:22; Admin Dose 1 TAB; Start 02/08/17 at 09:00 Guaifenesin (Robitussin Liquid Cup) 200 mg Q4H PRN GTB COUGH Last administered on 02/10/17 06:12; Admin Dose 200 MG; Start 02/08/17 at 23:30 Methadone HCl (Methadone) 10 mg HS PRN GTB pain Last administered on 02/11/17 21:12; Admin Dose 10 MG; Start 02/11/17 at 21:00 Acetaminophen/ Hydrocodone Bitart ([place] (5/325)) 0.5 tab Q8 PRN GTB pain Last administered on 02/12/17 08:19; Admin Dose 0.5 TAB; Start 02/11/17 at 15:00 ANTHONY WOODARD MD Feb 12, 2017 10:21
--- NOTE | 2017-02-12 13:20 | PN ---
Date/Time of Note Date/Time of Note DATE: 02/12/17 TIME: 13:19 Assessment/Plan VTE Prophylaxis VTE Prophylaxis Intervention: SCD's Lines/Catheters IV Catheter Type (from Nrs): PICC Line Central line still needed: No Urinary Cath still in place: Yes Reason Cath still needed: urinary retention Assessment/Plan Assessment/Plan Sacral decubiti DVT of left upper extremity History of paroxysmal atrial fibrillation Preserved ejection fraction Peripheral arterial disease -Blood pressure trend labile but improved. K slightly elevated, if worsens, would consider stopping ARB and could use Norvasc for BP control, Patient status post blood transfusion. If Hemoglobin continues to drop, would consider stopping anticoagulation. Subjective 24 Hr Interval Summary Free Text/Dictation the aptient wih no cahnge Exam/Review of Systems Vital Signs Vitals Vital Signs Date Time Temp Pulse Resp B/P Pulse Ox O2 Delivery O2 Flow Rate FiO2 02/12/17 08:50 99.0 68 18 124/58 98 02/12/17 08:22 Nasal Cannula 2.0 Intake and Output 02/11/17 02/11/17 02/12/17 15:00 23:00 07:00 Intake Total 150 ml 1080 ml 1410 ml Output Total 510 ml 1450 ml Balance 150 ml 570 ml -40 ml Results Result Diagram: 02/12/17 0457 02/12/17 0457 Results 24 hrs Laboratory Tests Test 02/11/17 17:19 02/11/17 21:07 02/11/17 23:08 02/12/17 01:28 Bedside Glucose 123 154 180 118 Test 02/12/17 04:57 02/12/17 05:20 02/12/17 08:14 02/12/17 12:28 White Blood Count 15.0 H Red Blood Count 3.53 L Hemoglobin 9.8 L Hematocrit 31.6 L Mean Corpuscular Volume 89.5 Mean Corpuscular Hemoglobin 27.8 L Mean Corpuscular Hemoglobin Concent 31.0 L Red Cell Distribution Width 17.4 H Platelet Count 318 Mean Platelet Volume 10.2 Neutrophils % 53.8 Lymphocytes % 28.7 Monocytes % 9.6 Eosinophils % 6.3 Basophils % 0.5 Nucleated Red Blood Cells % 0.0 Neutrophils # 8.1 H Lymphocytes # 4.3 H Monocytes # 1.4 H Eosinophils # 0.9 H Basophils # 0.1 Nucleated Red Blood Cells # 0.0 Sodium Level 136 Potassium Level 5.7 H Chloride Level 101 Carbon Dioxide Level 35 H Anion Gap 6 L Blood Urea Nitrogen 35 H Creatinine 0.63 Glucose Level 121 Calcium Level 8.7 Bedside Glucose 123 160 138 Medications Medications Current Medications Ondansetron HCl (Zofran Inj) 4 mg Q6H PRN IV NAUSEA AND/OR VOMITING; Start at 16:30 IV Flush (NS 10 ml) 10 ml PRN PRN IV IV PROTOCOL; Start 01/15/17 at 18:30 Miscellaneous Information 1 ea NOTE XX ; Start 01/15/17 at 19:00 Glucose (Glutose) 15 gm Q15M PRN PO DECREASED GLUCOSE; Start 01/15/17 at 19:00 Glucose (Glutose) 22.5 gm Q15M PRN PO DECREASED GLUCOSE; Start 01/15/17 at 19: 00 Dextrose (D50w Syringe) 25 ml Q15M PRN IV DECREASED GLUCOSE Last administered on 01/21/17 20:37; Admin Dose 25 ML; Start 01/15/17 at 19:00 Dextrose (D50w Syringe) 50 ml Q15M PRN IV DECREASED GLUCOSE; Start 01/15/17 at 19:00 Glucagon (Glucagen) 1 mg Q15M PRN IM DECREASED GLUCOSE; Start 01/15/17 at 19:00 Glucose (Glutose) 15 gm Q15M PRN BUCCAL DECREASED GLUCOSE Last administered on 01/21/17 19:53; Admin Dose 15 GM; Start 01/15/17 at 19:00 Diagnostic Test (Pha) (Accu-Chek) 1 ea 02 XX Last administered on 01/29/17 01: 36; Admin Dose 1 EA; Start 01/16/17 at 02:00 Miscellaneous Information (Pending Santyl Order For Wound Care) This patient jean baptiste... PRN PRN XX WOUND CARE; Start 01/15/17 at 22:00 Collagenase (Santyl) 1 applic DAILY TOP Last administered on 02/12/17 09:00; Admin Dose 1 APPLIC; Start 01/16/17 at 21:00 Hydralazine HCl (Apresoline) 10 mg Q6 PRN IV ELEVATED BLOOD PRESSURE Last administered on 01/17/17 03:05; Admin Dose 10 MG; Start 01/17/17 at 03:00 Acetaminophen (Tylenol Supp) 650 mg Q6H PRN [place] FEVER GREATER THAN 100.6 Last administered on 01/17/17 07:26; Admin Dose 650 MG; Start 01/17/17 at 07:00 Nystatin (Nystatin Powder) 1 applic BID TOP Last administered on 02/11/17 23: 17; Admin Dose 1 APPLIC; Start 01/18/17 at 21:00 Bisacodyl (Dulcolax Supp) 10 mg BID PRN [place] CONSTIPATION; Start 01/19/17 at 12: 00 Sodium Biphosphate/ Sodium Phosphate 133 ml 133 ml BID PRN [place] CONSTIPATION; Start 01/19/17 at 12:00 Meropenem/Sodium Chloride (Merrem 1 Gm/50 ml (Pmx)) 50 ml @ 100 mls/hr Q8 IVPB Last administered on 02/12/17 05:20; Admin Dose 100 MLS/HR; Start 01/19/17 at 15:00 Zolpidem Tartrate (Ambien) 10 mg HS PRN PO INSOMNIA Last administered on 22:27; Admin Dose 10 MG; Start 01/21/17 at 13:30 IV Flush (NS 10 ml) 10 ml PRN PRN IV IV PROTOCOL; Start 01/21/17 at 19:00 Insulin Human NPH (Humulin N) 10 unit BID@08,20 SC Last administered on 08:20; Admin Dose 10 UNIT; Start 01/22/17 at 08:00 Ascorbic Acid (Vitamin C) 500 mg BID GTB Last administered on 02/12/17 08:22; Admin Dose 500 MG; Start 01/23/17 at 21:00 Multivitamins (Multivitamin) 30 ml DAILY GTB Last administered on 02/12/17 08: 19; Admin Dose 30 ML; Start 01/23/17 at 17:00 Insulin Aspart (Novolog Insulin Pen) NOVOLOG *MODERATE* ALGORITHM Q4 SC Last administered on 02/12/17 08:21; Admin Dose 2 UNIT; Start 01/27/17 at 17:00 Neomycin/ Polymyxin/ Bacitracin (Neosporin Topical Oint) 1 applic BID TOP Last administered on 02/12/17 09:00; Admin Dose 1 APPLIC; Start 01/28/17 at 09:00 Hydrogen Peroxide 1 applic 1 applic BID TOP Last administered on 02/12/17 09: 00; Admin Dose 1 APPLIC; Start 01/28/17 at 09:00 Tigecycline/ Sodium Chloride (Tygacil/NS) 100 ml @ 200 mls/hr Q12 IVPB Last administered on 02/12/17 08:19; Admin Dose 200 MLS/HR; Start 01/29/17 at 21:00 Acetaminophen (Tylenol Tab) 650 mg Q6H PRN GTB PAIN LEVEL 1-3 OR FEVER Last administered on 02/05/17 21:03; Admin Dose 650 MG; Start 02/04/17 at 10:58 Apixaban (Eliquis) 5 mg BID GTB Last administered on 02/12/17 08:22; Admin Dose 5 MG; Start 02/04/17 at 10:59 Calcium Carbonate (Tums) 500 mg BID GTB Last administered on 02/12/17 08:22; Admin Dose 500 MG; Start 02/04/17 at 11:00 Clonidine (Catapres) 0.1 mg Q6H PRN GTB BLOOD PRESSURE SBP>160; Start 02/04/17 at 11:01 Docusate Sodium (Colace Liquid Cup) 100 mg BID PRN GTB CONSTIPATION; Start at 11:30 Famotidine (Pepcid) 20 mg DAILY GTB Last administered on 02/12/17 08:22; Admin Dose 20 MG; Start 02/04/17 at 11:03 Ferrous Sulfate (Feosol Liquid Cup) 225 mg DAILY GTB Last administered on 08:22; Admin Dose 225 MG; Start 02/04/17 at 11:30 Magnesium Hydroxide (Milk Of Mag) 30 ml DAILY PRN GTB CONSTIPATION; Start 02/04 at 11:09 Montelukast Sodium (Singulair) 10 mg QHS GTB Last administered on 02/11/17 21: 12; Admin Dose 10 MG; Start 02/04/17 at 11:12 Losartan Potassium (Cozaar) 100 mg DAILY GTB Last administered on 02/12/17 08: 25; Admin Dose 100 MG; Start 02/05/17 at 09:00 Trimethoprim/ Sulfamethoxazole (Bactrim (Ds)) 1 tab BID GTB Last administered on 02/12/17 08:22; Admin Dose 1 TAB; Start 02/08/17 at 09:00 Guaifenesin (Robitussin Liquid Cup) 200 mg Q4H PRN GTB COUGH Last administered on 02/10/17 06:12; Admin Dose 200 MG; Start 02/08/17 at 23:30 Methadone HCl (Methadone) 10 mg HS PRN GTB pain Last administered on 02/11/17 21:12; Admin Dose 10 MG; Start 02/11/17 at 21:00 Acetaminophen/ Hydrocodone Bitart ([place] (5/325)) 0.5 tab Q8 PRN GTB pain Last administered on 02/12/17 08:19; Admin Dose 0.5 TAB; Start 02/11/17 at 15:00 FRED RUIZ MD Feb 12, 2017 13:20
--- NOTE | 2017-02-12 13:23 | PN ---
Date/Time of Note Date/Time of Note DATE: 02/12/17 TIME: 13:22 Assessment/Plan VTE Prophylaxis VTE Prophylaxis Intervention: SCD's Lines/Catheters IV Catheter Type (from Nrs): PICC Line Central line still needed: No Urinary Cath still in place: Yes Reason Cath still needed: urinary retention Assessment/Plan Assessment/Plan Sacral decubiti DVT of left upper extremity History of paroxysmal atrial fibrillation Preserved ejection fraction Peripheral arterial disease -Blood pressure trend labile but improved. K slightly elevated, if worsens, would consider stopping ARB and could use Norvasc for BP control, Patient status post blood transfusion. If Hemoglobin continues to drop, would consider stopping anticoagulation. Subjective 24 Hr Interval Summary Free Text/Dictation the patietn with no cahnge Exam/Review of Systems Vital Signs Vitals Vital Signs Date Time Temp Pulse Resp B/P Pulse Ox O2 Delivery O2 Flow Rate FiO2 02/12/17 08:50 99.0 68 18 124/58 98 02/12/17 08:22 Nasal Cannula 2.0 Intake and Output 02/11/17 02/11/17 02/12/17 15:00 23:00 07:00 Intake Total 150 ml 1080 ml 1410 ml Output Total 510 ml 1450 ml Balance 150 ml 570 ml -40 ml Results Result Diagram: 02/12/17 0457 02/12/17 0457 Results 24 hrs Laboratory Tests Test 02/11/17 17:19 02/11/17 21:07 02/11/17 23:08 02/12/17 01:28 Bedside Glucose 123 154 180 118 Test 02/12/17 04:57 02/12/17 05:20 02/12/17 08:14 02/12/17 12:28 White Blood Count 15.0 H Red Blood Count 3.53 L Hemoglobin 9.8 L Hematocrit 31.6 L Mean Corpuscular Volume 89.5 Mean Corpuscular Hemoglobin 27.8 L Mean Corpuscular Hemoglobin Concent 31.0 L Red Cell Distribution Width 17.4 H Platelet Count 318 Mean Platelet Volume 10.2 Neutrophils % 53.8 Lymphocytes % 28.7 Monocytes % 9.6 Eosinophils % 6.3 Basophils % 0.5 Nucleated Red Blood Cells % 0.0 Neutrophils # 8.1 H Lymphocytes # 4.3 H Monocytes # 1.4 H Eosinophils # 0.9 H Basophils # 0.1 Nucleated Red Blood Cells # 0.0 Sodium Level 136 Potassium Level 5.7 H Chloride Level 101 Carbon Dioxide Level 35 H Anion Gap 6 L Blood Urea Nitrogen 35 H Creatinine 0.63 Glucose Level 121 Calcium Level 8.7 Bedside Glucose 123 160 138 Medications Medications Current Medications Ondansetron HCl (Zofran Inj) 4 mg Q6H PRN IV NAUSEA AND/OR VOMITING; Start at 16:30 IV Flush (NS 10 ml) 10 ml PRN PRN IV IV PROTOCOL; Start 01/15/17 at 18:30 Miscellaneous Information 1 ea NOTE XX ; Start 01/15/17 at 19:00 Glucose (Glutose) 15 gm Q15M PRN PO DECREASED GLUCOSE; Start 01/15/17 at 19:00 Glucose (Glutose) 22.5 gm Q15M PRN PO DECREASED GLUCOSE; Start 01/15/17 at 19: 00 Dextrose (D50w Syringe) 25 ml Q15M PRN IV DECREASED GLUCOSE Last administered on 01/21/17 20:37; Admin Dose 25 ML; Start 01/15/17 at 19:00 Dextrose (D50w Syringe) 50 ml Q15M PRN IV DECREASED GLUCOSE; Start 01/15/17 at 19:00 Glucagon (Glucagen) 1 mg Q15M PRN IM DECREASED GLUCOSE; Start 01/15/17 at 19:00 Glucose (Glutose) 15 gm Q15M PRN BUCCAL DECREASED GLUCOSE Last administered on 01/21/17 19:53; Admin Dose 15 GM; Start 01/15/17 at 19:00 Diagnostic Test (Pha) (Accu-Chek) 1 ea 02 XX Last administered on 01/29/17 01: 36; Admin Dose 1 EA; Start 01/16/17 at 02:00 Miscellaneous Information (Pending Santyl Order For Wound Care) This patient jean baptiste... PRN PRN XX WOUND CARE; Start 01/15/17 at 22:00 Collagenase (Santyl) 1 applic DAILY TOP Last administered on 02/12/17 09:00; Admin Dose 1 APPLIC; Start 01/16/17 at 21:00 Hydralazine HCl (Apresoline) 10 mg Q6 PRN IV ELEVATED BLOOD PRESSURE Last administered on 01/17/17 03:05; Admin Dose 10 MG; Start 01/17/17 at 03:00 Acetaminophen (Tylenol Supp) 650 mg Q6H PRN [place] FEVER GREATER THAN 100.6 Last administered on 01/17/17 07:26; Admin Dose 650 MG; Start 01/17/17 at 07:00 Nystatin (Nystatin Powder) 1 applic BID TOP Last administered on 02/11/17 23: 17; Admin Dose 1 APPLIC; Start 01/18/17 at 21:00 Bisacodyl (Dulcolax Supp) 10 mg BID PRN [place] CONSTIPATION; Start 01/19/17 at 12: 00 Sodium Biphosphate/ Sodium Phosphate 133 ml 133 ml BID PRN [place] CONSTIPATION; Start 01/19/17 at 12:00 Meropenem/Sodium Chloride (Merrem 1 Gm/50 ml (Pmx)) 50 ml @ 100 mls/hr Q8 IVPB Last administered on 02/12/17 05:20; Admin Dose 100 MLS/HR; Start 01/19/17 at 15:00 Zolpidem Tartrate (Ambien) 10 mg HS PRN PO INSOMNIA Last administered on 22:27; Admin Dose 10 MG; Start 01/21/17 at 13:30 IV Flush (NS 10 ml) 10 ml PRN PRN IV IV PROTOCOL; Start 01/21/17 at 19:00 Insulin Human NPH (Humulin N) 10 unit BID@08,20 SC Last administered on 08:20; Admin Dose 10 UNIT; Start 01/22/17 at 08:00 Ascorbic Acid (Vitamin C) 500 mg BID GTB Last administered on 02/12/17 08:22; Admin Dose 500 MG; Start 01/23/17 at 21:00 Multivitamins (Multivitamin) 30 ml DAILY GTB Last administered on 02/12/17 08: 19; Admin Dose 30 ML; Start 01/23/17 at 17:00 Insulin Aspart (Novolog Insulin Pen) NOVOLOG *MODERATE* ALGORITHM Q4 SC Last administered on 02/12/17 08:21; Admin Dose 2 UNIT; Start 01/27/17 at 17:00 Neomycin/ Polymyxin/ Bacitracin (Neosporin Topical Oint) 1 applic BID TOP Last administered on 02/12/17 09:00; Admin Dose 1 APPLIC; Start 01/28/17 at 09:00 Hydrogen Peroxide 1 applic 1 applic BID TOP Last administered on 02/12/17 09: 00; Admin Dose 1 APPLIC; Start 01/28/17 at 09:00 Tigecycline/ Sodium Chloride (Tygacil/NS) 100 ml @ 200 mls/hr Q12 IVPB Last administered on 02/12/17 08:19; Admin Dose 200 MLS/HR; Start 01/29/17 at 21:00 Acetaminophen (Tylenol Tab) 650 mg Q6H PRN GTB PAIN LEVEL 1-3 OR FEVER Last administered on 02/05/17 21:03; Admin Dose 650 MG; Start 02/04/17 at 10:58 Apixaban (Eliquis) 5 mg BID GTB Last administered on 02/12/17 08:22; Admin Dose 5 MG; Start 02/04/17 at 10:59 Calcium Carbonate (Tums) 500 mg BID GTB Last administered on 02/12/17 08:22; Admin Dose 500 MG; Start 02/04/17 at 11:00 Clonidine (Catapres) 0.1 mg Q6H PRN GTB BLOOD PRESSURE SBP>160; Start 02/04/17 at 11:01 Docusate Sodium (Colace Liquid Cup) 100 mg BID PRN GTB CONSTIPATION; Start at 11:30 Famotidine (Pepcid) 20 mg DAILY GTB Last administered on 02/12/17 08:22; Admin Dose 20 MG; Start 02/04/17 at 11:03 Ferrous Sulfate (Feosol Liquid Cup) 225 mg DAILY GTB Last administered on 08:22; Admin Dose 225 MG; Start 02/04/17 at 11:30 Magnesium Hydroxide (Milk Of Mag) 30 ml DAILY PRN GTB CONSTIPATION; Start 02/04 at 11:09 Montelukast Sodium (Singulair) 10 mg QHS GTB Last administered on 02/11/17 21: 12; Admin Dose 10 MG; Start 02/04/17 at 11:12 Losartan Potassium (Cozaar) 100 mg DAILY GTB Last administered on 02/12/17 08: 25; Admin Dose 100 MG; Start 02/05/17 at 09:00 Trimethoprim/ Sulfamethoxazole (Bactrim (Ds)) 1 tab BID GTB Last administered on 02/12/17 08:22; Admin Dose 1 TAB; Start 02/08/17 at 09:00 Guaifenesin (Robitussin Liquid Cup) 200 mg Q4H PRN GTB COUGH Last administered on 02/10/17 06:12; Admin Dose 200 MG; Start 02/08/17 at 23:30 Methadone HCl (Methadone) 10 mg HS PRN GTB pain Last administered on 02/11/17 21:12; Admin Dose 10 MG; Start 02/11/17 at 21:00 Acetaminophen/ Hydrocodone Bitart ([place] (5/325)) 0.5 tab Q8 PRN GTB pain Last administered on 02/12/17 08:19; Admin Dose 0.5 TAB; Start 02/11/17 at 15:00 FRED RUIZ MD Feb 12, 2017 13:23
[2017-02-12 14:00] VITALS: BP 119/50; RESP 19
--- NOTE | 2017-02-12 14:11 | PN ---
Date/Time of Note Date/Time of Note DATE: 02/12/17 TIME: 14:05 Assessment/Plan VTE Prophylaxis VTE Prophylaxis Intervention: other Lines/Catheters IV Catheter Type (from Nrsg): PICC Line Central line still needed: Yes Urinary Cath still in place: Yes Reason Cath still needed: skin wounds contaminated by urine Assessment/Plan Chief Complaint/Hosp Course sedated. no discomfort . Problems: Assessment/Plan arousible today. not given meth this am. prn norco. better resp sounds. 02/10 off am methadone, now note lung congestion with inspir. arousible. k mild elevated 5.3 lower dose of methadone 10 am and still sedated. wound reported mild improvement 02/07 wbc going back up and the hgb going down 02/08 wbc still going up. pt sedated. nurse and family says always sedated. --hgb 7.9 transfusine 1u prbc on high K- due to sacral decubi will try to avoid diarrhea and will give lasix today. if K cont to be elevated will get off arb. sacral stage IV decub, growing proteus and ecoli and s.aureus. on merrem/vanco , being treated by ID. 02/19 debrided and eval for osteo. called ortho- they report that nothing for them to do regarding fx or osteo of sacrum. wbc improving. -path report +osteo. ortho called and will not treat. - vre grew. now on tigecycline/merrem. -if wound does not improve, ID is recommending diverting colostomy.---wound is mildly better. multi bugs growing. ID deciding if any changes of med. wbc has cont to improve. -currently afebrile. -----ID reports 02/08 - Acinetobacter is resistant to colisitin, intermediate to minocycline (PROMISE of 8) and Tigecycline PROMISE is 2 (no interpretation available but likely sensitive) continue with merrem/tigecycline thru 03/12, monitor ESR on a weekly basis wound appears to be improving and ESR has come down will add bactrim temporarily to see if it will improve her leukocytosis one of the possible side effects of tigecycline is leukocytosis left pneumonia. no further congestion. will cont regular HHN. encourage no pain med in the am. needs to be awake in the day. poor appetite- gtube in place. pt is allowed p.o. intake with aspiration precautions. not oral eating much since sedated. mentation -pain controlled with methadone. pt too sedated. pt now on methadone in evening. and 1/2 norco q 8 inthe day. was able to anwer few questions. denies pain. 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 dmII since gtube feeding, adjusting the insulin. doing well accu check stable. paroxysmal afib on last admission- occurred during sepsis and intubation. pt changed to elliquis. stable h/o left dvt of UE. now on elliquis. cont til dvt resolves. due to blood transfusion may need to hold eliquis Subjective 24 Hr Interval Summary Free Text/Dictation methadone off in am. more alert today but was called with c/o pain. at lunch pt denies pain. Exam/Review of Systems Vital Signs Vitals Vital Signs Date Time Temp Pulse Resp B/P Pulse Ox O2 Delivery O2 Flow Rate FiO2 02/12/17 08:50 99.0 68 18 124/58 98 02/12/17 08:22 Nasal Cannula 2.0 Intake and Output 02/11/17 02/11/17 02/12/17 15:00 23:00 07:00 Intake Total 150 ml 1080 ml 1410 ml Output Total 510 ml 1450 ml Balance 150 ml 570 ml -40 ml Results Result Diagram: 02/12/17 0457 02/12/17 0457 Results 24 hrs Laboratory Tests Test 02/11/17 17:19 02/11/17 21:07 02/11/17 23:08 02/12/17 01:28 Bedside Glucose 123 154 180 118 Test 02/12/17 04:57 02/12/17 05:20 02/12/17 08:14 02/12/17 12:28 White Blood Count 15.0 H Red Blood Count 3.53 L Hemoglobin 9.8 L Hematocrit 31.6 L Mean Corpuscular Volume 89.5 Mean Corpuscular Hemoglobin 27.8 L Mean Corpuscular Hemoglobin Concent 31.0 L Red Cell Distribution Width 17.4 H Platelet Count 318 Mean Platelet Volume 10.2 Neutrophils % 53.8 Lymphocytes % 28.7 Monocytes % 9.6 Eosinophils % 6.3 Basophils % 0.5 Nucleated Red Blood Cells % 0.0 Neutrophils # 8.1 H Lymphocytes # 4.3 H Monocytes # 1.4 H Eosinophils # 0.9 H Basophils # 0.1 Nucleated Red Blood Cells # 0.0 Sodium Level 136 Potassium Level 5.7 H Chloride Level 101 Carbon Dioxide Level 35 H Anion Gap 6 L Blood Urea Nitrogen 35 H Creatinine 0.63 Glucose Level 121 Calcium Level 8.7 Bedside Glucose 123 160 138 Medications Medications Current Medications Ondansetron HCl (Zofran Inj) 4 mg Q6H PRN IV NAUSEA AND/OR VOMITING; Start at 16:30 IV Flush (NS 10 ml) 10 ml PRN PRN IV IV PROTOCOL; Start 01/15/17 at 18:30 Miscellaneous Information 1 ea NOTE XX ; Start 01/15/17 at 19:00 Glucose (Glutose) 15 gm Q15M PRN PO DECREASED GLUCOSE; Start 01/15/17 at 19:00 Glucose (Glutose) 22.5 gm Q15M PRN PO DECREASED GLUCOSE; Start 01/15/17 at 19: 00 Dextrose (D50w Syringe) 25 ml Q15M PRN IV DECREASED GLUCOSE Last administered on 01/21/17 20:37; Admin Dose 25 ML; Start 01/15/17 at 19:00 Dextrose (D50w Syringe) 50 ml Q15M PRN IV DECREASED GLUCOSE; Start 01/15/17 at 19:00 Glucagon (Glucagen) 1 mg Q15M PRN IM DECREASED GLUCOSE; Start 01/15/17 at 19:00 Glucose (Glutose) 15 gm Q15M PRN BUCCAL DECREASED GLUCOSE Last administered on 01/21/17 19:53; Admin Dose 15 GM; Start 01/15/17 at 19:00 Diagnostic Test (Pha) (Accu-Chek) 1 ea 02 XX Last administered on 01/29/17 01: 36; Admin Dose 1 EA; Start 01/16/17 at 02:00 Miscellaneous Information (Pending Santyl Order For Wound Care) This patient jean baptiste... PRN PRN XX WOUND CARE; Start 01/15/17 at 22:00 Collagenase (Santyl) 1 applic DAILY TOP Last administered on 02/12/17 09:00; Admin Dose 1 APPLIC; Start 01/16/17 at 21:00 Hydralazine HCl (Apresoline) 10 mg Q6 PRN IV ELEVATED BLOOD PRESSURE Last administered on 01/17/17 03:05; Admin Dose 10 MG; Start 01/17/17 at 03:00 Acetaminophen (Tylenol Supp) 650 mg Q6H PRN [place] FEVER GREATER THAN 100.6 Last administered on 01/17/17 07:26; Admin Dose 650 MG; Start 01/17/17 at 07:00 Nystatin (Nystatin Powder) 1 applic BID TOP Last administered on 02/11/17 23: 17; Admin Dose 1 APPLIC; Start 01/18/17 at 21:00 Bisacodyl (Dulcolax Supp) 10 mg BID PRN [place] CONSTIPATION; Start 01/19/17 at 12: 00 Sodium Biphosphate/ Sodium Phosphate 133 ml 133 ml BID PRN [place] CONSTIPATION; Start 01/19/17 at 12:00 Meropenem/Sodium Chloride (Merrem 1 Gm/50 ml (Pmx)) 50 ml @ 100 mls/hr Q8 IVPB Last administered on 02/12/17 13:46; Admin Dose 100 MLS/HR; Start 01/19/17 at 15:00 Zolpidem Tartrate (Ambien) 10 mg HS PRN PO INSOMNIA Last administered on 22:27; Admin Dose 10 MG; Start 01/21/17 at 13:30 IV Flush (NS 10 ml) 10 ml PRN PRN IV IV PROTOCOL; Start 01/21/17 at 19:00 Insulin Human NPH (Humulin N) 10 unit BID@08,20 SC Last administered on 08:20; Admin Dose 10 UNIT; Start 01/22/17 at 08:00 Ascorbic Acid (Vitamin C) 500 mg BID GTB Last administered on 02/12/17 08:22; Admin Dose 500 MG; Start 01/23/17 at 21:00 Multivitamins (Multivitamin) 30 ml DAILY GTB Last administered on 02/12/17 08: 19; Admin Dose 30 ML; Start 01/23/17 at 17:00 Insulin Aspart (Novolog Insulin Pen) NOVOLOG *MODERATE* ALGORITHM Q4 SC Last administered on 02/12/17 08:21; Admin Dose 2 UNIT; Start 01/27/17 at 17:00 Neomycin/ Polymyxin/ Bacitracin (Neosporin Topical Oint) 1 applic BID TOP Last administered on 02/12/17 09:00; Admin Dose 1 APPLIC; Start 01/28/17 at 09:00 Hydrogen Peroxide 1 applic 1 applic BID TOP Last administered on 02/12/17 09: 00; Admin Dose 1 APPLIC; Start 01/28/17 at 09:00 Tigecycline/ Sodium Chloride (Tygacil/NS) 100 ml @ 200 mls/hr Q12 IVPB Last administered on 02/12/17 08:19; Admin Dose 200 MLS/HR; Start 01/29/17 at 21:00 Acetaminophen (Tylenol Tab) 650 mg Q6H PRN GTB PAIN LEVEL 1-3 OR FEVER Last administered on 02/05/17 21:03; Admin Dose 650 MG; Start 02/04/17 at 10:58 Apixaban (Eliquis) 5 mg BID GTB Last administered on 02/12/17 08:22; Admin Dose 5 MG; Start 02/04/17 at 10:59 Calcium Carbonate (Tums) 500 mg BID GTB Last administered on 02/12/17 08:22; Admin Dose 500 MG; Start 02/04/17 at 11:00 Clonidine (Catapres) 0.1 mg Q6H PRN GTB BLOOD PRESSURE SBP>160; Start 02/04/17 at 11:01 Docusate Sodium (Colace Liquid Cup) 100 mg BID PRN GTB CONSTIPATION; Start at 11:30 Famotidine (Pepcid) 20 mg DAILY GTB Last administered on 02/12/17 08:22; Admin Dose 20 MG; Start 02/04/17 at 11:03 Ferrous Sulfate (Feosol Liquid Cup) 225 mg DAILY GTB Last administered on 08:22; Admin Dose 225 MG; Start 02/04/17 at 11:30 Magnesium Hydroxide (Milk Of Mag) 30 ml DAILY PRN GTB CONSTIPATION; Start 02/04 at 11:09 Montelukast Sodium (Singulair) 10 mg QHS GTB Last administered on 02/11/17 21: 12; Admin Dose 10 MG; Start 02/04/17 at 11:12 Losartan Potassium (Cozaar) 100 mg DAILY GTB Last administered on 02/12/17 08: 25; Admin Dose 100 MG; Start 02/05/17 at 09:00 Trimethoprim/ Sulfamethoxazole (Bactrim (Ds)) 1 tab BID GTB Last administered on 02/12/17 08:22; Admin Dose 1 TAB; Start 02/08/17 at 09:00 Guaifenesin (Robitussin Liquid Cup) 200 mg Q4H PRN GTB COUGH Last administered on 02/10/17 06:12; Admin Dose 200 MG; Start 02/08/17 at 23:30 Methadone HCl (Methadone) 10 mg HS PRN GTB pain Last administered on 02/11/17 21:12; Admin Dose 10 MG; Start 02/11/17 at 21:00 Acetaminophen/ Hydrocodone Bitart ([place] (5/325)) 0.5 tab Q8 PRN GTB pain Last administered on 02/12/17 08:19; Admin Dose 0.5 TAB; Start 02/11/17 at 15:00 RIDGE MATTHEWS MD Feb 12, 2017 14:10
[2017-02-12] MEDS ORDERED: FUROSEMIDE 20 MG INJ IV ONE (14:30)
[2017-02-12 20:00] VITALS: BP 130/55; RESP 19
[2017-02-12] MEDS: MONTELUKAST 10 MG TAB GTB SCH (22:07)
[2017-02-12] MEDS: NYSTATIN 30 GM POWDER BTL TOP SCH (22:11)
[2017-02-12] MEDS: METHADONE 10 MG TAB GTB PRN (22:12)
[2017-02-13] MEDS: INSULIN ASPART [NOVOLOG] 3 ML PEN SC SCH ×6 (01:00→20:13)
[2017-02-13] MEDS: LEVALBUTEROL (NEB) 0.31 MG/3 ML AMP HHN SCH ×4 (01:30→20:38)
[2017-02-13 02:00] VITALS: BP 112/56; RESP 18
[2017-02-13] MEDS: ACCU-CHEK XX SCH (02:00)
[2017-02-13] MEDS: MEROPENEM 1 GM/50ML(PMX) 50 ML IVPB SCH ×3 (05:29→21:25)
[2017-02-13 07:49] LABS: CALCIUM 8.5 mg/dl (8.4-10.2); CREATININE 0.68 mg/dl (0.44-1.00); POTASSIUM 5.8 mmol/L (3.5-5.1)
[2017-02-13 08:00] VITALS: BP 148/65; RESP 74
[2017-02-13] MEDS: COLLAGENASE 30 GM TUBE TOP SCH ×3 (09:00→15:58)
[2017-02-13] MEDS: TRIMETHOPRIM/SULFAMETHOX (DS) TAB GTB SCH ×2 (09:05→20:12)
[2017-02-13] MEDS: CALCIUM CARBONATE 500 MG CHEW TAB GTB SCH ×2 (09:05→20:12)
[2017-02-13] MEDS: FAMOTIDINE 20 MG TAB GTB SCH (09:05)
[2017-02-13] MEDS: MULTIVITAMINS 30 ML CUP GTB SCH (09:05)
[2017-02-13] MEDS: ASCORBIC ACID 500 MG TAB GTB SCH ×2 (09:05→20:15)
[2017-02-13] MEDS: APIXABAN 5 MG TABLET GTB SCH ×2 (09:05→20:12)
[2017-02-13] MEDS: FERROUS SULFATE 60 MG/ML 5ML CUP GTB SCH (09:05)
[2017-02-13] MEDS: NPH, HUMAN INSULIN ISOPHANE 3ML VIAL SC SCH ×2 (09:05→20:12)
[2017-02-13] MEDS: LOSARTAN 50 MG TAB GTB SCH (09:06)
[2017-02-13] MEDS: TIGECYCLINE 50 MG in SOD CHLORIDE 0.9% 100 ML IVPB SCH ×2 (09:07→20:15)
[2017-02-13] MEDS: NEOMYC/POLYMYX/BACIT 30 GM OINT TOP SCH ×2 (09:10→21:39)
[2017-02-13] MEDS: NYSTATIN 30 GM POWDER BTL TOP SCH ×2 (09:10→21:38)
[2017-02-13] MEDS: HYDROGEN PEROXIDE 118 ML TOP SCH ×2 (09:11→21:38)
[2017-02-13] MEDS: HYDROCODONE/APAP (5/325) TAB GTB PRN ×2 (09:30→19:00)
--- NOTE | 2017-02-13 10:03 | CONS ---
Date/Time of Note Date/Time of Note DATE: 02/13/17 TIME: 10:01 Assessment/Plan Assessment/Plan Chief Complaint/Hosp Course Sacral decubiti DVT of left upper extremity History of paroxysmal atrial fibrillation Preserved ejection fraction Peripheral arterial disease Problems: Additional Assessment/Plan given elevated K with gradual increase will stop losartan and replace with amlodipine Consultation Date/Type/Reason Admit Date/Time Jan 15, 2017 at 14:33 Initial Consult Date 01/19/17 Type of Consultation: cv Referring Provider: RIDGE MATTHEWS MD 24 HR Interval Summary Free Text/Dictation frail, no distress, no chest pain, no sob Detailed Summary Respiratory: no complaints Cardiovascular: no complaints Gastrointestinal: no complaints Musculoskeletal: no complaints Skin: no complaints Neurologic: no complaints Endocrine: no complaints Lymphatic: no complaints Exam/Review of Systems Vital Signs Vitals Vital Signs Date Time Temp Pulse Resp B/P Pulse Ox O2 Delivery O2 Flow Rate FiO2 02/13/17 08:00 98.3 75 74 148/65 100 02/13/17 07:47 Nasal Cannula 2.0 Intake and Output 02/12/17 02/12/17 02/13/17 15:00 23:00 07:00 Intake Total 150 ml 1100 ml 640 ml Output Total 925 ml 1400 ml Balance 150 ml 175 ml -760 ml Exam Constitutional: frail Head: atraumatic, normocephalic Neck: supple Respiratory: clear to auscultation Cardiovascular: regular rate and rhythm Gastrointestinal: soft Musculoskeletal: nl extremities to inspection Extremities: normal pulses Neurological: EDGE BANDING OFF BEARER II-XII intact Results Result Diagram: 02/12/17 0457 02/13/17 0450 Results 24 hrs Laboratory Tests Test 02/12/17 12:28 02/12/17 16:14 02/12/17 22:02 02/13/17 02:24 Bedside Glucose 138 121 133 139 Test 02/13/17 04:47 02/13/17 04:50 02/13/17 09:02 Bedside Glucose 103 106 Sodium Level 136 Potassium Level 5.8 H Chloride Level 103 Carbon Dioxide Level 31 Anion Gap 8 Blood Urea Nitrogen 38 H Creatinine 0.68 Glucose Level 77 # Calcium Level 8.5 Medications Medications Current Medications Ondansetron HCl (Zofran Inj) 4 mg Q6H PRN IV NAUSEA AND/OR VOMITING; Start at 16:30 IV Flush (NS 10 ml) 10 ml PRN PRN IV IV PROTOCOL; Start 01/15/17 at 18:30 Miscellaneous Information 1 ea NOTE XX ; Start 01/15/17 at 19:00 Glucose (Glutose) 15 gm Q15M PRN PO DECREASED GLUCOSE; Start 01/15/17 at 19:00 Glucose (Glutose) 22.5 gm Q15M PRN PO DECREASED GLUCOSE; Start 01/15/17 at 19: 00 Dextrose (D50w Syringe) 25 ml Q15M PRN IV DECREASED GLUCOSE Last administered on 01/21/17 20:37; Admin Dose 25 ML; Start 01/15/17 at 19:00 Dextrose (D50w Syringe) 50 ml Q15M PRN IV DECREASED GLUCOSE; Start 01/15/17 at 19:00 Glucagon (Glucagen) 1 mg Q15M PRN IM DECREASED GLUCOSE; Start 01/15/17 at 19:00 Glucose (Glutose) 15 gm Q15M PRN BUCCAL DECREASED GLUCOSE Last administered on 01/21/17 19:53; Admin Dose 15 GM; Start 01/15/17 at 19:00 Diagnostic Test (Pha) (Accu-Chek) 1 ea 02 XX Last administered on 02/13/17 02: 00; Admin Dose 1 EA; Start 01/16/17 at 02:00 Collagenase (Santyl) 1 applic DAILY TOP Last administered on 02/12/17 09:00; Admin Dose 1 APPLIC; Start 01/16/17 at 21:00 Hydralazine HCl (Apresoline) 10 mg Q6 PRN IV ELEVATED BLOOD PRESSURE Last administered on 01/17/17 03:05; Admin Dose 10 MG; Start 01/17/17 at 03:00 Acetaminophen (Tylenol Supp) 650 mg Q6H PRN [place] FEVER GREATER THAN 100.6 Last administered on 01/17/17 07:26; Admin Dose 650 MG; Start 01/17/17 at 07:00 Nystatin (Nystatin Powder) 1 applic BID TOP Last administered on 02/13/17 09: 10; Admin Dose 1 APPLIC; Start 01/18/17 at 21:00 Bisacodyl (Dulcolax Supp) 10 mg BID PRN [place] CONSTIPATION; Start 01/19/17 at 12: 00 Sodium Biphosphate/ Sodium Phosphate 133 ml 133 ml BID PRN [place] CONSTIPATION; Start 01/19/17 at 12:00 Meropenem/Sodium Chloride (Merrem 1 Gm/50 ml (Pmx)) 50 ml @ 100 mls/hr Q8 IVPB Last administered on 02/13/17 05:29; Admin Dose 100 MLS/HR; Start 01/19/17 at 15:00 Zolpidem Tartrate (Ambien) 10 mg HS PRN PO INSOMNIA Last administered on 22:27; Admin Dose 10 MG; Start 01/21/17 at 13:30 IV Flush (NS 10 ml) 10 ml PRN PRN IV IV PROTOCOL; Start 01/21/17 at 19:00 Insulin Human NPH (Humulin N) 10 unit BID@08,20 SC Last administered on 09:05; Admin Dose 10 UNIT; Start 01/22/17 at 08:00 Ascorbic Acid (Vitamin C) 500 mg BID GTB Last administered on 02/13/17 09:05; Admin Dose 500 MG; Start 01/23/17 at 21:00 Multivitamins (Multivitamin) 30 ml DAILY GTB Last administered on 02/13/17 09: 05; Admin Dose 30 ML; Start 01/23/17 at 17:00 Insulin Aspart (Novolog Insulin Pen) NOVOLOG *MODERATE* ALGORITHM Q4 SC Last administered on 02/12/17 08:21; Admin Dose 2 UNIT; Start 01/27/17 at 17:00 Neomycin/ Polymyxin/ Bacitracin (Neosporin Topical Oint) 1 applic BID TOP Last administered on 02/13/17 09:10; Admin Dose 1 APPLIC; Start 01/28/17 at 09:00 Hydrogen Peroxide 1 applic 1 applic BID TOP Last administered on 02/13/17 09: 11; Admin Dose 1 APPLIC; Start 01/28/17 at 09:00 Tigecycline/ Sodium Chloride (Tygacil/NS) 100 ml @ 200 mls/hr Q12 IVPB Last administered on 02/13/17 09:07; Admin Dose 200 MLS/HR; Start 01/29/17 at 21:00 Acetaminophen (Tylenol Tab) 650 mg Q6H PRN GTB PAIN LEVEL 1-3 OR FEVER Last administered on 02/05/17 21:03; Admin Dose 650 MG; Start 02/04/17 at 10:58 Apixaban (Eliquis) 5 mg BID GTB Last administered on 02/13/17 09:05; Admin Dose 5 MG; Start 02/04/17 at 10:59 Calcium Carbonate (Tums) 500 mg BID GTB Last administered on 02/13/17 09:05; Admin Dose 500 MG; Start 02/04/17 at 11:00 Clonidine (Catapres) 0.1 mg Q6H PRN GTB BLOOD PRESSURE SBP>160; Start 02/04/17 at 11:01 Docusate Sodium (Colace Liquid Cup) 100 mg BID PRN GTB CONSTIPATION; Start at 11:30 Famotidine (Pepcid) 20 mg DAILY GTB Last administered on 02/13/17 09:05; Admin Dose 20 MG; Start 02/04/17 at 11:03 Ferrous Sulfate (Feosol Liquid Cup) 225 mg DAILY GTB Last administered on 09:05; Admin Dose 225 MG; Start 02/04/17 at 11:30 Magnesium Hydroxide (Milk Of Mag) 30 ml DAILY PRN GTB CONSTIPATION; Start 02/04 at 11:09 Montelukast Sodium (Singulair) 10 mg QHS GTB Last administered on 02/12/17 22: 07; Admin Dose 10 MG; Start 02/04/17 at 11:12 Losartan Potassium (Cozaar) 100 mg DAILY GTB Last administered on 02/13/17 09: 06; Admin Dose 100 MG; Start 02/05/17 at 09:00 Trimethoprim/ Sulfamethoxazole (Bactrim (Ds)) 1 tab BID GTB Last administered on 02/13/17 09:05; Admin Dose 1 TAB; Start 02/08/17 at 09:00 Guaifenesin (Robitussin Liquid Cup) 200 mg Q4H PRN GTB COUGH Last administered on 02/10/17 06:12; Admin Dose 200 MG; Start 02/08/17 at 23:30 Methadone HCl (Methadone) 10 mg HS PRN GTB pain Last administered on 02/12/17 22:12; Admin Dose 10 MG; Start 02/11/17 at 21:00 Acetaminophen/ Hydrocodone Bitart ([place] (5/325)) 0.5 tab Q8 PRN GTB pain Last administered on 02/13/17t 09:30; Admin Dose 0.5 TAB; Start 02/11/17 at 15:00 ALBERTO LYN MD Feb 13, 2017 10:03
[2017-02-13 14:00] VITALS: BP 128/54; RESP 19
[2017-02-13 20:09] VITALS: BP 138/61; RESP 19
[2017-02-13] MEDS: MONTELUKAST 10 MG TAB GTB SCH (20:12)
[2017-02-13] MEDS: METHADONE 10 MG TAB GTB PRN (21:25)
[2017-02-14] MEDS: INSULIN ASPART [NOVOLOG] 3 ML PEN SC SCH ×6 (01:00→20:16)
[2017-02-14 02:00] VITALS: BP 118/51; RESP 18
[2017-02-14] MEDS: ACCU-CHEK XX SCH (02:00)
[2017-02-14] MEDS: MEROPENEM 1 GM/50ML(PMX) 50 ML IVPB SCH ×3 (05:52→20:16)
[2017-02-14 06:15] LABS: ABNORMAL IP MESSAGE 1; BASOPHIL # 0.1 10^3/ul (0.0-0.1); BASOPHILS % 0.6 % (0.0-2.0); EOSINOPHILS % 5.1 % (0.0-7.0); HEMATOCRIT 32.8 % (37.0-47.0); HEMOGLOBIN 10.4 g/dl (12.0-16.0); LYMPHOCYTES # 6.3 10^3/ul (0.8-2.9); LYMPHOCYTES % 33.9 % (15.0-51.0); MEAN CORPUSCULAR HEMOGLOBIN 28.7 pg (29.0-33.0); MEAN CORPUSCULAR HGB CONC 31.7 g/dl (32.0-37.0); MEAN CORPUSCULAR VOLUME 90.4 fl (82.0-101.0); MEAN PLATELET VOLUME 9.9 fl (7.4-10.4); MONOCYTE # 1.7 10^3/ul (0.3-0.9); MONOCYTES % 9.3 % (0.0-11.0); NEUTROPHIL # 9.2 10^3/ul (1.6-7.5); NEUTROPHILS % 49.4 % (39.0-77.0); PLATELET COUNT 382 10^3/UL (140-415); RED BLOOD COUNT 3.63 10^6/ul (4.20-5.40); RED CELL DISTRIBUTION WIDTH 18.1 % (11.5-14.5); WHITE BLOOD COUNT 18.6 10^3/ul (4.8-10.8)
[2017-02-14 06:16] LABS: POSITIVE DIFF @See below
[2017-02-14 06:33] LABS: CALCIUM 9.3 mg/dl (8.4-10.2); CREATININE 0.84 mg/dl (0.44-1.00); POTASSIUM 5.5 mmol/L (3.5-5.1)
[2017-02-14 07:35] VITALS: BP 96/51; RESP 18
[2017-02-14] MEDS: AMLODIPINE 5 MG TAB PO SCH (09:00)
[2017-02-14] MEDS: COLLAGENASE 30 GM TUBE TOP SCH ×3 (09:00→09:05)
[2017-02-14] MEDS: TIGECYCLINE 50 MG in SOD CHLORIDE 0.9% 100 ML IVPB SCH ×2 (09:01→20:17)
[2017-02-14] MEDS: CALCIUM CARBONATE 500 MG CHEW TAB GTB SCH ×2 (09:02→20:19)
[2017-02-14] MEDS: TRIMETHOPRIM/SULFAMETHOX (DS) TAB GTB SCH ×2 (09:02→20:19)
[2017-02-14] MEDS: APIXABAN 5 MG TABLET GTB SCH ×2 (09:02→20:19)
[2017-02-14] MEDS: FERROUS SULFATE 60 MG/ML 5ML CUP GTB SCH (09:02)
[2017-02-14] MEDS: MULTIVITAMINS 30 ML CUP GTB SCH (09:02)
[2017-02-14] MEDS: FAMOTIDINE 20 MG TAB GTB SCH (09:03)
[2017-02-14] MEDS: ASCORBIC ACID 500 MG TAB GTB SCH ×2 (09:03→20:19)
[2017-02-14] MEDS: NPH, HUMAN INSULIN ISOPHANE 3ML VIAL SC SCH ×2 (09:04→20:18)
[2017-02-14] MEDS: HYDROGEN PEROXIDE 118 ML TOP SCH ×2 (09:04→20:20)
[2017-02-14] MEDS: NEOMYC/POLYMYX/BACIT 30 GM OINT TOP SCH ×2 (09:05→20:21)
[2017-02-14] MEDS: NYSTATIN 30 GM POWDER BTL TOP SCH ×2 (09:05→20:21)
[2017-02-14] MEDS ORDERED: NA POLYST SULFON 15 GM/60 ML BTL PO ONE (11:30)
--- NOTE | 2017-02-14 13:58 | PN ---
Date/Time of Note Date/Time of Note DATE: 02/12/17 TIME: 11:43 Assessment/Plan VTE Prophylaxis VTE Prophylaxis Intervention: other (eliquis) Lines/Catheters IV Catheter Type (from Nrsg): PICC Line Central line still needed: No Urinary Cath still in place: Yes Reason Cath still needed: skin wounds contaminated by urine Assessment/Plan Assessment/Plan 1. sacral ducub/ lf heel osteo--wbc still high 2. pneumonitis 3. h/o dm 4. h/o htn/ pad/ rt bka 5. g tube feed 6. debility/ dementia ---cont iv atbx ---cont all supportive cares inc wound cares Subjective 24 Hr Interval Summary Free Text/Dictation to my voice, opened eyes, per family--she spoke a little Exam/Review of Systems Vital Signs Vitals Vital Signs Date Time Temp Pulse Resp B/P Pulse Ox 02/13/17 02:00 98.8 92 18 148/65 100 Intake and Output 02/13/17 23:00 Intake Total 1280 ml Output Total 600 ml Balance 680 ml Exam lying in bed, g tube site clean/ functioning/ dry, rr, cta, rt bka, lf heel well dressed/ clean/ dry Results Result Diagram: 02/14/17 0518 02/14/17 0517 Results 24 hrs Laboratory Tests Test 02/13/17 17:39 02/13/17 20:10 02/14/17 01:13 02/14/17 04:46 Bedside Glucose 109 129 82 85 Test 02/14/17 05:11 02/14/17 05:17 02/14/17 05:18 02/14/17 08:59 Bedside Glucose 80 117 Sodium Level 135 Potassium Level 5.5 H Chloride Level 103 Carbon Dioxide Level 30 Anion Gap 8 Blood Urea Nitrogen 39 H Creatinine 0.84 Glucose Level 62 #L Calcium Level 9.3 C-Reactive Protein 3.3 H White Blood Count 18.6 #H Red Blood Count 3.63 L Hemoglobin 10.4 L Hematocrit 32.8 L Mean Corpuscular Volume 90.4 Mean Corpuscular Hemoglobin 28.7 L Mean Corpuscular Hemoglobin Concent 31.7 L Red Cell Distribution Width 18.1 H Platelet Count 382 # Mean Platelet Volume 9.9 Neutrophils % 49.4 Lymphocytes % 33.9 Monocytes % 9.3 Eosinophils % 5.1 Basophils % 0.6 Nucleated Red Blood Cells % 0.0 Neutrophils # 9.2 H Lymphocytes # 6.3 H Monocytes # 1.7 H Eosinophils # 1.0 H Basophils # 0.1 Nucleated Red Blood Cells # 0.0 Erythrocyte Sedimentation Rate 77 H Test 02/14/17 12:15 Bedside Glucose 117 Medications Medications Current Medications Ondansetron HCl (Zofran Inj) 4 mg Q6H PRN IV NAUSEA AND/OR VOMITING; Start at 16:30 IV Flush (NS 10 ml) 10 ml PRN PRN IV IV PROTOCOL; Start 01/15/17 at 18:30 Miscellaneous Information 1 ea NOTE XX ; Start 01/15/17 at 19:00 Glucose (Glutose) 15 gm Q15M PRN PO DECREASED GLUCOSE; Start 01/15/17 at 19:00 Glucose (Glutose) 22.5 gm Q15M PRN PO DECREASED GLUCOSE; Start 01/15/17 at 19: 00 Dextrose (D50w Syringe) 25 ml Q15M PRN IV DECREASED GLUCOSE Last administered on 01/21/17 20:37; Admin Dose 25 ML; Start 01/15/17 at 19:00 Dextrose (D50w Syringe) 50 ml Q15M PRN IV DECREASED GLUCOSE; Start 01/15/17 at 19:00 Glucagon (Glucagen) 1 mg Q15M PRN IM DECREASED GLUCOSE; Start 01/15/17 at 19:00 Glucose (Glutose) 15 gm Q15M PRN BUCCAL DECREASED GLUCOSE Last administered on 01/21/17 19:53; Admin Dose 15 GM; Start 01/15/17 at 19:00 Diagnostic Test (Pha) (Accu-Chek) 1 ea 02 XX Last administered on 02/13/17 02: 00; Admin Dose 1 EA; Start 01/16/17 at 02:00 Hydralazine HCl (Apresoline) 10 mg Q6 PRN IV ELEVATED BLOOD PRESSURE Last administered on 01/17/17 03:05; Admin Dose 10 MG; Start 01/17/17 at 03:00 Acetaminophen (Tylenol Supp) 650 mg Q6H PRN MD FEVER GREATER THAN 100.6 Last administered on 01/17/17 07:26; Admin Dose 650 MG; Start 01/17/17 at 07:00 Nystatin (Nystatin Powder) 1 applic BID TOP Last administered on 02/14/17 09: 05; Admin Dose 1 APPLIC; Start 01/18/17 at 21:00 Bisacodyl (Dulcolax Supp) 10 mg BID PRN MD CONSTIPATION; Start 01/19/17 at 12: 00 Sodium Biphosphate/ Sodium Phosphate 133 ml 133 ml BID PRN MD CONSTIPATION; Start 01/19/17 at 12:00 Meropenem/Sodium Chloride (Merrem 1 Gm/50 ml (Pmx)) 50 ml @ 100 mls/hr Q8 IVPB Last administered on 02/14/17 05:52; Admin Dose 100 MLS/HR; Start 01/19/17 at 15:00 Zolpidem Tartrate (Ambien) 10 mg HS PRN PO INSOMNIA Last administered on 22:27; Admin Dose 10 MG; Start 01/21/17 at 13:30 IV Flush (NS 10 ml) 10 ml PRN PRN IV IV PROTOCOL; Start 01/21/17 at 19:00 Insulin Human NPH (Humulin N) 10 unit BID@08,20 SC Last administered on 09:04; Admin Dose 10 UNIT; Start 01/22/17 at 08:00 Ascorbic Acid (Vitamin C) 500 mg BID GTB Last administered on 02/14/17 09:03; Admin Dose 500 MG; Start 01/23/17 at 21:00 Insulin Aspart (Novolog Insulin Pen) NOVOLOG *MODERATE* ALGORITHM Q4 SC Last administered on 02/12/17 08:21; Admin Dose 2 UNIT; Start 01/27/17 at 17:00 Neomycin/ Polymyxin/ Bacitracin (Neosporin Topical Oint) 1 applic BID TOP Last administered on 02/14/17 09:05; Admin Dose 1 APPLIC; Start 01/28/17 at 09:00 Hydrogen Peroxide 1 applic 1 applic BID TOP Last administered on 02/14/17 09: 04; Admin Dose 1 APPLIC; Start 01/28/17 at 09:00 Tigecycline/ Sodium Chloride (Tygacil/NS) 100 ml @ 200 mls/hr Q12 IVPB Last administered on 02/14/17 09:01; Admin Dose 200 MLS/HR; Start 01/29/17 at 21:00 Acetaminophen (Tylenol Tab) 650 mg Q6H PRN GTB PAIN LEVEL 1-3 OR FEVER Last administered on 02/05/17 21:03; Admin Dose 650 MG; Start 02/04/17 at 10:58 Apixaban (Eliquis) 5 mg BID GTB Last administered on 02/14/17 09:02; Admin Dose 5 MG; Start 02/04/17 at 10:59 Calcium Carbonate (Tums) 500 mg BID GTB Last administered on 02/14/17 09:02; Admin Dose 500 MG; Start 02/04/17 at 11:00 Clonidine (Catapres) 0.1 mg Q6H PRN GTB BLOOD PRESSURE SBP>160; Start 02/04/17 at 11:01 Docusate Sodium (Colace Liquid Cup) 100 mg BID PRN GTB CONSTIPATION; Start at 11:30 Famotidine (Pepcid) 20 mg DAILY GTB Last administered on 02/14/17 09:03; Admin Dose 20 MG; Start 02/04/17 at 11:03 Ferrous Sulfate (Feosol Liquid Cup) 225 mg DAILY GTB Last administered on 09:02; Admin Dose 225 MG; Start 02/04/17 at 11:30 Montelukast Sodium (Singulair) 10 mg QHS GTB Last administered on 02/13/17 20: 12; Admin Dose 10 MG; Start 02/04/17 at 11:12 Trimethoprim/ Sulfamethoxazole (Bactrim (Ds)) 1 tab BID GTB Last administered on 02/14/17 09:02; Admin Dose 1 TAB; Start 02/08/17 at 09:00 Guaifenesin (Robitussin Liquid Cup) 200 mg Q4H PRN GTB COUGH Last administered on 02/10/17 06:12; Admin Dose 200 MG; Start 02/08/17 at 23:30 Methadone HCl (Methadone) 10 mg HS PRN GTB pain Last administered on 02/13/17 21:25; Admin Dose 10 MG; Start 02/11/17 at 21:00 Acetaminophen/ Hydrocodone Bitart ([place] (5/325)) 0.5 tab Q8 PRN GTB pain Last administered on 02/13/17 19:00; Admin Dose 0.5 TAB; Start 02/11/17 at 15:00 Amlodipine Besylate (Norvasc) 5 mg DAILY PO ; Start 02/14/17 at 09:00 Collagenase (Santyl) 1 applic DAILY TOP Last administered on 02/14/17t 09:05; Admin Dose 1 APPLIC; Start 02/13/17 at 14:00 ELAN MILES MD Feb 14, 2017 13:56
[2017-02-14] MEDS ORDERED: FUROSEMIDE 20 MG INJ IV ONE (14:00)
--- NOTE | 2017-02-14 14:05 | PN ---
Date/Time of Note Date/Time of Note DATE: 02/14/17 TIME: 10:58 Assessment/Plan VTE Prophylaxis VTE Prophylaxis Intervention: other (eliquis) Lines/Catheters IV Catheter Type (from Nrsg): PICC Line Central line still needed: No Urinary Cath still in place: Yes Reason Cath still needed: skin wounds contaminated by urine, terminal illness/ intractable pain Assessment/Plan Assessment/Plan 1. heel osteo/ sacral decub 2. pneumonitis 3. h/o debility/ dementia--g tube feed/ very poor px 4. h/o cm/ pad/ dvt 5. h/o dm 6. ckd/ high k ---cont iv atbx ---cont all supportive cares inc skin cares ---k exallate 60gm & lasix iv 20mg ---remove all meds/ diet/ fluid containing k & mg Subjective 24 Hr Interval Summary Free Text/Dictation lying in bed, not much body motion, opens eye to commends Exam/Review of Systems Vital Signs Vitals Vital Signs Date Time Temp Pulse Resp B/P Pulse Ox O2 Delivery O2 Flow Rate FiO2 02/14/17 13:03 Nasal Cannula 2.0 02/14/17 07:35 98.8 71 18 96/51 100 Intake and Output 02/13/17 02/13/17 02/14/17 15:00 23:00 07:00 Intake Total 100 ml 1280 ml 570 ml Output Total 600 ml 650 ml Balance 100 ml 680 ml -80 ml Exam g tube site clean, sacral site dry/ no soiling, lf heel dress dry/ clean with heel protector on, rt bka, cta, rr Results Result Diagram: 02/14/1718 02/14/17 0517 Results 24 hrs Laboratory Tests Test 02/13/17 17:39 02/13/17 20:10 02/14/17 01:13 02/14/17 04:46 Bedside Glucose 109 129 82 85 Test 02/14/17 05:11 02/14/17 05:17 02/14/17 05:18 02/14/17 08:59 Bedside Glucose 80 117 Sodium Level 135 Potassium Level 5.5 H Chloride Level 103 Carbon Dioxide Level 30 Anion Gap 8 Blood Urea Nitrogen 39 H Creatinine 0.84 Glucose Level 62 #L Calcium Level 9.3 C-Reactive Protein 3.3 H White Blood Count 18.6 #H Red Blood Count 3.63 L Hemoglobin 10.4 L Hematocrit 32.8 L Mean Corpuscular Volume 90.4 Mean Corpuscular Hemoglobin 28.7 L Mean Corpuscular Hemoglobin Concent 31.7 L Red Cell Distribution Width 18.1 H Platelet Count 382 # Mean Platelet Volume 9.9 Neutrophils % 49.4 Lymphocytes % 33.9 Monocytes % 9.3 Eosinophils % 5.1 Basophils % 0.6 Nucleated Red Blood Cells % 0.0 Neutrophils # 9.2 H Lymphocytes # 6.3 H Monocytes # 1.7 H Eosinophils # 1.0 H Basophils # 0.1 Nucleated Red Blood Cells # 0.0 Erythrocyte Sedimentation Rate 77 H Test 02/14/17 12:15 Bedside Glucose 117 Medications Medications Current Medications Ondansetron HCl (Zofran Inj) 4 mg Q6H PRN IV NAUSEA AND/OR VOMITING; Start at 16:30 IV Flush (NS 10 ml) 10 ml PRN PRN IV IV PROTOCOL; Start 01/15/17 at 18:30 Miscellaneous Information 1 ea NOTE XX ; Start 01/15/17 at 19:00 Glucose (Glutose) 15 gm Q15M PRN PO DECREASED GLUCOSE; Start 01/15/17 at 19:00 Glucose (Glutose) 22.5 gm Q15M PRN PO DECREASED GLUCOSE; Start 01/15/17 at 19: 00 Dextrose (D50w Syringe) 25 ml Q15M PRN IV DECREASED GLUCOSE Last administered on 01/21/17 20:37; Admin Dose 25 ML; Start 01/15/17 at 19:00 Dextrose (D50w Syringe) 50 ml Q15M PRN IV DECREASED GLUCOSE; Start 01/15/17 at 19:00 Glucagon (Glucagen) 1 mg Q15M PRN IM DECREASED GLUCOSE; Start 01/15/17 at 19:00 Glucose (Glutose) 15 gm Q15M PRN BUCCAL DECREASED GLUCOSE Last administered on 01/21/17 19:53; Admin Dose 15 GM; Start 01/15/17 at 19:00 Diagnostic Test (Pha) (Accu-Chek) 1 ea 02 XX Last administered on 02/13/17 02: 00; Admin Dose 1 EA; Start 01/16/17 at 02:00 Hydralazine HCl (Apresoline) 10 mg Q6 PRN IV ELEVATED BLOOD PRESSURE Last administered on 01/17/17 03:05; Admin Dose 10 MG; Start 01/17/17 at 03:00 Acetaminophen (Tylenol Supp) 650 mg Q6H PRN AR FEVER GREATER THAN 100.6 Last administered on 01/17/17 07:26; Admin Dose 650 MG; Start 01/17/17 at 07:00 Nystatin (Nystatin Powder) 1 applic BID TOP Last administered on 02/14/17 09: 05; Admin Dose 1 APPLIC; Start 01/18/17 at 21:00 Bisacodyl (Dulcolax Supp) 10 mg BID PRN AR CONSTIPATION; Start 01/19/17 at 12: 00 Sodium Biphosphate/ Sodium Phosphate 133 ml 133 ml BID PRN AR CONSTIPATION; Start 01/19/17 at 12:00 Meropenem/Sodium Chloride (Merrem 1 Gm/50 ml (Pmx)) 50 ml @ 100 mls/hr Q8 IVPB Last administered on 02/14/17 05:52; Admin Dose 100 MLS/HR; Start 01/19/17 at 15:00 Zolpidem Tartrate (Ambien) 10 mg HS PRN PO INSOMNIA Last administered on 22:27; Admin Dose 10 MG; Start 01/21/17 at 13:30 IV Flush (NS 10 ml) 10 ml PRN PRN IV IV PROTOCOL; Start 01/21/17 at 19:00 Insulin Human NPH (Humulin N) 10 unit BID@08,20 SC Last administered on 09:04; Admin Dose 10 UNIT; Start 01/22/17 at 08:00 Ascorbic Acid (Vitamin C) 500 mg BID GTB Last administered on 02/14/17 09:03; Admin Dose 500 MG; Start 01/23/17 at 21:00 Insulin Aspart (Novolog Insulin Pen) NOVOLOG *MODERATE* ALGORITHM Q4 SC Last administered on 02/12/17 08:21; Admin Dose 2 UNIT; Start 01/27/17 at 17:00 Neomycin/ Polymyxin/ Bacitracin (Neosporin Topical Oint) 1 applic BID TOP Last administered on 02/14/17 09:05; Admin Dose 1 APPLIC; Start 01/28/17 at 09:00 Hydrogen Peroxide 1 applic 1 applic BID TOP Last administered on 02/14/17 09: 04; Admin Dose 1 APPLIC; Start 01/28/17 at 09:00 Tigecycline/ Sodium Chloride (Tygacil/NS) 100 ml @ 200 mls/hr Q12 IVPB Last administered on 02/14/17 09:01; Admin Dose 200 MLS/HR; Start 01/29/17 at 21:00 Acetaminophen (Tylenol Tab) 650 mg Q6H PRN GTB PAIN LEVEL 1-3 OR FEVER Last administered on 02/05/17 21:03; Admin Dose 650 MG; Start 02/04/17 at 10:58 Apixaban (Eliquis) 5 mg BID GTB Last administered on 02/14/17 09:02; Admin Dose 5 MG; Start 02/04/17 at 10:59 Calcium Carbonate (Tums) 500 mg BID GTB Last administered on 02/14/17 09:02; Admin Dose 500 MG; Start 02/04/17 at 11:00 Clonidine (Catapres) 0.1 mg Q6H PRN GTB BLOOD PRESSURE SBP>160; Start 02/04/17 at 11:01 Docusate Sodium (Colace Liquid Cup) 100 mg BID PRN GTB CONSTIPATION; Start at 11:30 Famotidine (Pepcid) 20 mg DAILY GTB Last administered on 02/14/17 09:03; Admin Dose 20 MG; Start 02/04/17 at 11:03 Ferrous Sulfate (Feosol Liquid Cup) 225 mg DAILY GTB Last administered on 09:02; Admin Dose 225 MG; Start 02/04/17 at 11:30 Montelukast Sodium (Singulair) 10 mg QHS GTB Last administered on 02/13/17 20: 12; Admin Dose 10 MG; Start 02/04/17 at 11:12 Trimethoprim/ Sulfamethoxazole (Bactrim (Ds)) 1 tab BID GTB Last administered on 02/14/17 09:02; Admin Dose 1 TAB; Start 02/08/17 at 09:00 Guaifenesin (Robitussin Liquid Cup) 200 mg Q4H PRN GTB COUGH Last administered on 02/10/17 06:12; Admin Dose 200 MG; Start 02/08/17 at 23:30 Methadone HCl (Methadone) 10 mg HS PRN GTB pain Last administered on 02/13/17 21:25; Admin Dose 10 MG; Start 02/11/17 at 21:00 Acetaminophen/ Hydrocodone Bitart ([place] (5/325)) 0.5 tab Q8 PRN GTB pain Last administered on 02/13/17 19:00; Admin Dose 0.5 TAB; Start 02/11/17 at 15:00 Amlodipine Besylate (Norvasc) 5 mg DAILY PO ; Start 02/14/17 at 09:00 Collagenase (Santyl) 1 applic DAILY TOP Last administered on 02/14/17 09:05; Admin Dose 1 APPLIC; Start 02/13/17 at 14:00 ELAN MILES MD Feb 14, 2017 14:05
[2017-02-14 14:15] VITALS: BP 95/52; RESP 18
[2017-02-14 15:11] VITALS: BP 100/62
[2017-02-14] MEDS: MONTELUKAST 10 MG TAB GTB SCH (20:19)
[2017-02-14] MEDS: METHADONE 10 MG TAB GTB PRN (20:20)
[2017-02-14 20:38] VITALS: BP 113/48; RESP 18
[2017-02-14] MEDS: ZOLPIDEM 5 MG TAB PO PRN (22:18)
[2017-02-15] MEDS: INSULIN ASPART [NOVOLOG] 3 ML PEN SC SCH ×6 (01:00→21:00)
[2017-02-15 02:08] VITALS: BP 125/51; RESP 18
[2017-02-15] MEDS: ACCU-CHEK XX SCH (02:08)
[2017-02-15 05:51] LABS: ABNORMAL IP MESSAGE 1; BASOPHIL # 0.1 10^3/ul (0.0-0.1); BASOPHILS % 0.7 % (0.0-2.0); EOSINOPHILS # 0.7 10^3/ul (0.0-0.5); EOSINOPHILS % 4.9 % (0.0-7.0); HEMATOCRIT 30.9 % (37.0-47.0); HEMOGLOBIN 9.6 g/dl (12.0-16.0); LYMPHOCYTES # 4.9 10^3/ul (0.8-2.9); LYMPHOCYTES % 32.4 % (15.0-51.0); MEAN CORPUSCULAR HEMOGLOBIN 27.9 pg (29.0-33.0); MEAN CORPUSCULAR HGB CONC 31.1 g/dl (32.0-37.0); MEAN CORPUSCULAR VOLUME 89.8 fl (82.0-101.0); MEAN PLATELET VOLUME 9.9 fl (7.4-10.4); MONOCYTE # 1.8 10^3/ul (0.3-0.9); MONOCYTES % 11.6 % (0.0-11.0); NEUTROPHIL # 7.4 10^3/ul (1.6-7.5); NEUTROPHILS % 48.9 % (39.0-77.0); PLATELET COUNT 347 10^3/UL (140-415); RED BLOOD COUNT 3.44 10^6/ul (4.20-5.40); RED CELL DISTRIBUTION WIDTH 18.4 % (11.5-14.5); WHITE BLOOD COUNT 15.1 10^3/ul (4.8-10.8)
[2017-02-15 05:54] LABS: POSITIVE DIFF @See below
[2017-02-15] MEDS: MEROPENEM 1 GM/50ML(PMX) 50 ML IVPB SCH ×3 (05:58→21:07)
[2017-02-15 06:20] LABS: CREATININE 0.6 mg/dl (0.44-1.00); MAGNESIUM 1.4 mg/dl (1.7-2.5); POTASSIUM 3.6 mmol/L (3.5-5.1)
[2017-02-15 07:02] LABS: CALCIUM 5.9 mg/dl (8.4-10.2)
--- NOTE | 2017-02-15 07:14 | CONS ---
Date/Time of Note Date/Time of Note DATE: 02/15/17 TIME: 07:09 Assessment/Plan Assessment/Plan Chief Complaint/Hosp Course 1) progressive sacral ulcer, surrounding cellulitis await surgical input and debridement, consider MRI depending upon surgical eval wound cx to be obtained continue with vanco/merrem check ESR, CRP in a.m. 01/17 - proteus and another GNR in wound cx continue with merrem/vanco esr and CRP are moderately elevated mrsa to nares to start bactroban await surgical input pt is more awake today and able to answer some questions in [place] 01/18 - pt persistence of fever and elevated wbc is either due to an undrained abscess or inadequate antibiotics await wound care eval and surgical debridement will order MRI scan if no wound care is delivered by tomorrow wound cx has proteus, GNR and enterococcus continue with vanco/merrem at present 01/19 - wound cx are all sensitive to current antibiotics of vanco/merrem MRI of pelvis/abd was done but results not available pt to get debridement later this am. 01/20 - s/p debridement, some bone was shaved, MRI did not show osteo await path report continue with vanco/merrem fevers and WBC improved post debridement pt will need good nutrition to heal this wound, consider g-tube if pt not eating well 01/22 - pt to get g-tube for better nutrition continue with vanco/merrem thru 02/01/17 consider doxy for 2 weeks after that path specimen did not identify bone to examine for osteo 01/25 - WBC improved today and ESR was down from 78 to 65 no new issues continue with vanco/merrrem at present thru 02/01 then po doxy for 2 weeks 01/26 - re-culture the site continue vanco/merrem 01/27 - vac pump is applied re-cx of site has GNR so far 01/28 - acinetobacter now present and addendum to path shows osteomyelitis continue with merrem change vanco to minocycline send out for sensi's for colistin, avycaz, minocycline and tigecycline 01/29 - 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 01/30 - esr was a bit better continue with tigecycline/merrem, no need for diverting colostomy at this time as stool does not appear to be contaminating the sacral wound await final send out sensi's on the acinetobacter wbc is up but tigecycline can cause elevation of wbc 02/01 - spoke to surgeon who said wound is improved, but there is farooq exposure still awaitin sensi's on the acinetobacter wbc is slowly coming down but tigecycline can cause an increase in WBC continue merrem/tigecycline 02/04 - spoke to lab and expanded sensi's to the acinetobacter should be back by tomorrow maintain merrem/tigecycline at present 02/05 focus lab system is down and it has delayed the expanded sensi's for acinetobacter maintain merrem/tigecycline for now 02/08 - Acinetobacter is resistant to colisitin, intermediate to minocycline ( PROMISE of 8) and Tigecycline PROMISE is 2 (no interpretation available but likely sensitive) continue with merrem/tigecycline thru 03/12, monitor ESR on a weekly basis wound appears to be improving and ESR has come down will add bactrim temporarily to see if it will improve her leukocytosis one of the possible side effects of tigecycline is leukocytosis though 02/10 - no change with WBC or creatinine since addition of bactrim sacral wound measurements are slowly decreasing continue with merrem/tigecycline/bactrim if creatinine remains stable and wound continues to improve will continue with this regimen 02/12 - pt tolerating current regimen of merrem/tigecycline/bactrim CT abd/pelv planned in the next few days check CBC, BMP, ESR, CRP on thursday 02/15 - labs are about the same, mid teens for WBC, ESR varies continue present regimen of merrem/tigecycline/bactrim thru 03/12 re-cx sacral wound pictures do not show a change in sacral wound in the last week 2) L heal ulcer with eschar no surrounding redness noted on picture 3) PVD 4) recent hx of LUE DVT 5) HTN 6) leukocytosis 01/26 - get u/a and urine cx, c.dif was sent off re-culture the sacral wound site doubt a pulmonary issue 01/27 - c.dif was neg WBC has improved without change in antibiotics urine cx is NGTD (prior one was only yeast) wound cx has GNR only so far continue present management 01/28 - wound cx is now growing highly resistant acinetobacter will adjust antibiotics and await send out sensi's to verify the best regimen for pt 01/29 - wound cx also grew VRE now on merrem/tigecycline 01/30 - await final sensi' results for acinetobacter tigecycline can cause increase in the WBC 02/04 - improving, but slight fever and increase in WBC today, to continue to monitor will re-check u/a and urine cx and consider CXR 02/05 - u/a shows no pyuria, yeast in urine is not significant and does not need treatment c.dif was negative fevers and wbc improved tigecycline can cause some leukocytosis so WBC may not return to normal while on it 02/08 - will add bactrim to see if leukocytosis is due to infection no other infection appreciated other than sacral osteo, yeast in urine is a colonizer if no change with WBC after on bactrim for a week will d/c it continue merrem/tigecycline thruy 03/12, monitor ESR weekly 02/10 - no change 02/12 minimal improvement, continue to monitor no sign of new infection Problems: Consultation Date/Type/Reason Admit Date/Time Jan 15, 2017 at 14:33 Initial Consult Date 01/16/17 Type of Consultation: ID Referring Provider: RIDGE MATTHEWS MD 24 HR Interval Summary Free Text/Dictation no debt recovery officer the weekend Exam/Review of Systems Vital Signs Vitals Vital Signs Date Time Temp Pulse Resp B/P Pulse Ox O2 Delivery O2 Flow Rate FiO2 02/15/17 04:47 2.0 02/15/17 02:08 98.6 77 18 125/51 100 02/14/17 21:30 Nasal Cannula Intake and Output 02/14/17 02/14/17 02/15/17 15:00 23:00 07:00 Intake Total 1230 ml 370 ml Output Total 1150 ml 700 ml Balance 80 ml -330 ml Exam Constitutional: alert ENMT: mucosa pink and moist Respiratory: clear to auscultation Cardiovascular: regular rate and rhythm Gastrointestinal: non-tender, other (g-tube site is ok), soft Extremities: other (PICC line site is ok) Results Result Diagram: 02/15/17 0435 02/15/17 0435 Results 24 hrs Laboratory Tests Test 02/14/17 08:59 02/14/17 12:15 02/14/17 15:50 02/14/17 17:32 Bedside Glucose 117 117 191 Potassium Level 5.3 H Test 02/14/17 20:15 02/15/17 02:07 02/15/17 04:35 02/15/17 05:57 Bedside Glucose 155 120 124 White Blood Count 15.1 H Red Blood Count 3.44 L Hemoglobin 9.6 L Hematocrit 30.9 L Mean Corpuscular Volume 89.8 Mean Corpuscular Hemoglobin 27.9 L Mean Corpuscular Hemoglobin Concent 31.1 L Red Cell Distribution Width 18.4 H Platelet Count 347 Mean Platelet Volume 9.9 Neutrophils % 48.9 Lymphocytes % 32.4 Monocytes % 11.6 H Eosinophils % 4.9 Basophils % 0.7 Nucleated Red Blood Cells % 0.0 Neutrophils # 7.4 Lymphocytes # 4.9 H Monocytes # 1.8 H Eosinophils # 0.7 H Basophils # 0.1 Nucleated Red Blood Cells # 0.0 Sodium Level 140 Potassium Level 3.6 Chloride Level 118 H Carbon Dioxide Level 25 Anion Gap 1 L Blood Urea Nitrogen 29 H Creatinine 0.60 Glucose Level 72 Calcium Level 5.9 *L Magnesium Level 1.4 L Medications Medications Current Medications Ondansetron HCl (Zofran Inj) 4 mg Q6H PRN IV NAUSEA AND/OR VOMITING; Start at 16:30 IV Flush (NS 10 ml) 10 ml PRN PRN IV IV PROTOCOL; Start 01/15/17 at 18:30 Miscellaneous Information 1 ea NOTE XX ; Start 01/15/17 at 19:00 Glucose (Glutose) 15 gm Q15M PRN PO DECREASED GLUCOSE; Start 01/15/17 at 19:00 Glucose (Glutose) 22.5 gm Q15M PRN PO DECREASED GLUCOSE; Start 01/15/17 at 19: 00 Dextrose (D50w Syringe) 25 ml Q15M PRN IV DECREASED GLUCOSE Last administered on 01/21/17t 20:37; Admin Dose 25 ML; Start 01/15/17 at 19:00 Dextrose (D50w Syringe) 50 ml Q15M PRN IV DECREASED GLUCOSE; Start 01/15/17 at 19:00 Glucagon (Glucagen) 1 mg Q15M PRN IM DECREASED GLUCOSE; Start 01/15/17 at 19:00 Glucose (Glutose) 15 gm Q15M PRN BUCCAL DECREASED GLUCOSE Last administered on 01/21/17 19:53; Admin Dose 15 GM; Start 01/15/17 at 19:00 Diagnostic Test (Pha) (Accu-Chek) 1 ea 02 XX Last administered on 02/15/17 02: 08; Admin Dose 1 EA; Start 01/16/17 at 02:00 Hydralazine HCl (Apresoline) 10 mg Q6 PRN IV ELEVATED BLOOD PRESSURE Last administered on 01/17/17 03:05; Admin Dose 10 MG; Start 01/17/17 at 03:00 Acetaminophen (Tylenol Supp) 650 mg Q6H PRN [place] FEVER GREATER THAN 100.6 Last administered on 01/17/17 07:26; Admin Dose 650 MG; Start 01/17/17 at 07:00 Nystatin (Nystatin Powder) 1 applic BID TOP Last administered on 02/14/17 20: 21; Admin Dose 1 APPLIC; Start 01/18/17 at 21:00 Bisacodyl (Dulcolax Supp) 10 mg BID PRN [place] CONSTIPATION; Start 01/19/17 at 12: 00 Sodium Biphosphate/ Sodium Phosphate 133 ml 133 ml BID PRN [place] CONSTIPATION; Start 01/19/17 at 12:00 Meropenem/Sodium Chloride (Merrem 1 Gm/50 ml (Pmx)) 50 ml @ 100 mls/hr Q8 IVPB Last administered on 02/15/17 05:58; Admin Dose 100 MLS/HR; Start 01/19/17 at 15:00 Zolpidem Tartrate (Ambien) 10 mg HS PRN PO INSOMNIA Last administered on 22:18; Admin Dose 10 MG; Start 01/21/17 at 13:30 IV Flush (NS 10 ml) 10 ml PRN PRN IV IV PROTOCOL; Start 01/21/17 at 19:00 Insulin Human NPH (Humulin N) 10 unit BID@08,20 SC Last administered on 20:18; Admin Dose 10 UNIT; Start 01/22/17 at 08:00 Ascorbic Acid (Vitamin C) 500 mg BID GTB Last administered on 02/14/17 20:19; Admin Dose 500 MG; Start 01/23/17 at 21:00 Insulin Aspart (Novolog Insulin Pen) NOVOLOG *MODERATE* ALGORITHM Q4 SC Last administered on 02/14/17 17:33; Admin Dose 4 UNIT; Start 01/27/17 at 17:00 Neomycin/ Polymyxin/ Bacitracin (Neosporin Topical Oint) 1 applic BID TOP Last administered on 02/14/17 20:21; Admin Dose 1 APPLIC; Start 01/28/17 at 09:00 Hydrogen Peroxide 1 applic 1 applic BID TOP Last administered on 02/14/17 20: 20; Admin Dose 1 APPLIC; Start 01/28/17 at 09:00 Tigecycline/ Sodium Chloride (Tygacil/NS) 100 ml @ 200 mls/hr Q12 IVPB Last administered on 02/14/17 20:17; Admin Dose 200 MLS/HR; Start 01/29/17 at 21:00 Acetaminophen (Tylenol Tab) 650 mg Q6H PRN GTB PAIN LEVEL 1-3 OR FEVER Last administered on 02/05/17 21:03; Admin Dose 650 MG; Start 02/04/17 at 10:58 Apixaban (Eliquis) 5 mg BID GTB Last administered on 02/14/17 20:19; Admin Dose 5 MG; Start 02/04/17 at 10:59 Calcium Carbonate (Tums) 500 mg BID GTB Last administered on 02/14/17 20:19; Admin Dose 500 MG; Start 02/04/17 at 11:00 Clonidine (Catapres) 0.1 mg Q6H PRN GTB BLOOD PRESSURE SBP>160; Start 02/04/17 at 11:01 Docusate Sodium (Colace Liquid Cup) 100 mg BID PRN GTB CONSTIPATION; Start at 11:30 Famotidine (Pepcid) 20 mg DAILY GTB Last administered on 02/14/17 09:03; Admin Dose 20 MG; Start 02/04/17 at 11:03 Ferrous Sulfate (Feosol Liquid Cup) 225 mg DAILY GTB Last administered on 09:02; Admin Dose 225 MG; Start 02/04/17 at 11:30 Montelukast Sodium (Singulair) 10 mg QHS GTB Last administered on 02/14/17 20: 19; Admin Dose 10 MG; Start 02/04/17 at 11:12 Trimethoprim/ Sulfamethoxazole (Bactrim (Ds)) 1 tab BID GTB Last administered on 02/14/17 20:19; Admin Dose 1 TAB; Start 02/08/17 at 09:00; Stop 02/16/17 at 08:59 Guaifenesin (Robitussin Liquid Cup) 200 mg Q4H PRN GTB COUGH Last administered on 02/10/17 06:12; Admin Dose 200 MG; Start 02/08/17 at 23:30 Methadone HCl (Methadone) 10 mg HS PRN GTB pain Last administered on 02/14/17 20:20; Admin Dose 10 MG; Start 02/11/17 at 21:00 Acetaminophen/ Hydrocodone Bitart ([place] (5/325)) 0.5 tab Q8 PRN GTB pain Last administered on 02/13/17 19:00; Admin Dose 0.5 TAB; Start 02/11/17 at 15:00 Amlodipine Besylate (Norvasc) 5 mg DAILY PO ; Start 02/14/17 at 09:00 Collagenase (Santyl) 1 applic DAILY TOP Last administered on 02/14/17 09:05; Admin Dose 1 APPLIC; Start 02/13/17 at 14:00 ANTHONY WOODARD MD Feb 15, 2017 07:14
[2017-02-15 08:21] VITALS: BP 136/62; RESP 18
[2017-02-15] MEDS: COLLAGENASE 30 GM TUBE TOP SCH (09:00)
[2017-02-15] MEDS: TIGECYCLINE 50 MG in SOD CHLORIDE 0.9% 100 ML IVPB SCH ×2 (09:39→21:07)
[2017-02-15] MEDS: ASCORBIC ACID 500 MG TAB GTB SCH ×2 (09:40→21:12)
[2017-02-15] MEDS: APIXABAN 5 MG TABLET GTB SCH ×2 (09:40→21:12)
[2017-02-15] MEDS: CALCIUM CARBONATE 500 MG CHEW TAB GTB SCH ×2 (09:40→21:12)
[2017-02-15] MEDS: FAMOTIDINE 20 MG TAB GTB SCH (09:40)
[2017-02-15] MEDS: TRIMETHOPRIM/SULFAMETHOX (DS) TAB GTB SCH ×2 (09:40→21:12)
[2017-02-15] MEDS: AMLODIPINE 5 MG TAB PO SCH (09:40)
[2017-02-15] MEDS: FERROUS SULFATE 60 MG/ML 5ML CUP GTB SCH (09:40)
[2017-02-15] MEDS: NPH, HUMAN INSULIN ISOPHANE 3ML VIAL SC SCH ×2 (09:42→21:11)
[2017-02-15] MEDS: HYDROGEN PEROXIDE 118 ML TOP SCH ×2 (09:45→21:16)
[2017-02-15] MEDS: NEOMYC/POLYMYX/BACIT 30 GM OINT TOP SCH ×2 (09:45→21:17)
[2017-02-15] MEDS: NYSTATIN 30 GM POWDER BTL TOP SCH ×2 (09:45→21:16)
--- NOTE | 2017-02-15 14:00 | PN ---
Date/Time of Note Date/Time of Note DATE: 02/15/17 TIME: 13:53 Assessment/Plan VTE Prophylaxis VTE Prophylaxis Intervention: other Lines/Catheters IV Catheter Type (from Nrsg): PICC Line Central line still needed: Yes Urinary Cath still in place: Yes Reason Cath still needed: skin wounds contaminated by urine Assessment/Plan Chief Complaint/Hosp Course more awake 02/15 mild abd pain. . Problems: Assessment/Plan awake and anwers questions. c/o pain abd but no pain with palp. low ca. had high K over the weekend. 02/11arousible today. not given meth this am. prn norco. better resp sounds. 02/10 off am methadone, now note lung congestion with inspir. arousible. k mild elevated 5.3 02/09on lower dose of methadone 10 am and still sedated. wound reported mild improvement 02/07 wbc going back up and the hgb going down 02/08 wbc still going up. pt sedated. nurse and family says always sedated. --hgb 7.9 transfused 1u prbc on high K- due to sacral decubi will try to avoid diarrhea and will give lasix today. K high over the weekend and required kayex. currently on hold arbi. watch k. k good today. sacral stage IV decub, growing proteus and ecoli and s.aureus. on merrem/vanco , being treated by ID. 02/19 debrided and eval for osteo. called ortho- they report that nothing for them to do regarding fx or osteo of sacrum. wbc improving. -path report +osteo. ortho called and will not treat. - vre grew. now on tigecycline/merrem. -if wound does not improve, ID is recommending diverting colostomy.---wound is mildly better. multi bugs growing. ID deciding if any changes of med. wbc has cont to improve. -currently afebrile. -----ID reports 02/08 - Acinetobacter is resistant to colisitin, intermediate to minocycline (PROMISE of 8) and Tigecycline PROMISE is 2 (no interpretation available but likely sensitive) continue with merrem/tigecycline thru 03/12, monitor ESR on a weekly basis wound appears to be improving and ESR has come down will add bactrim temporarily to see if it will improve her leukocytosis one of the possible side effects of tigecycline is leukocytosis left pneumonia. no further congestion. will cont regular HHN. encourage no pain med in the am. lung clear. poor appetite- gtube in place. pt is allowed p.o. intake with aspiration precautions. not oral eating much since sedated. mentation -pain controlled with methadone. pt too sedated. pt now on methadone in evening. and 1/2 norco q 8 inthe day. was able to anwer few questions. denies pain. better since off meth in the am. cont. not in extreme pain. 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 due to elevated K will hold arbi. dmII since gtube feeding, adjusting the insulin. doing well accu check stable. paroxysmal afib on last admission- occurred during sepsis and intubation. pt changed to elliquis. stable h/o left dvt of UE. now on elliquis. cont til dvt resolves. due to blood transfusion may need to hold eliquis Exam/Review of Systems Vital Signs Vitals Vital Signs Date Time Temp Pulse Resp B/P Pulse Ox O2 Delivery O2 Flow Rate FiO2 02/15/17 09:30 Nasal Cannula 2.0 02/15/17 08:21 98.1 68 18 136/62 97 Intake and Output 02/14/17 02/14/17 02/15/17 15:00 23:00 07:00 Intake Total 1230 ml 370 ml Output Total 1150 ml 700 ml Balance 80 ml -330 ml Results Result Diagram: 02/15/17 0435 02/15/17 0435 Results 24 hrs Laboratory Tests Test 02/14/17 15:50 02/14/17 17:32 02/14/17 20:15 02/15/17 02:07 Potassium Level 5.3 H Bedside Glucose 191 155 120 Test 02/15/17 04:35 02/15/17 05:57 02/15/17 09:37 White Blood Count 15.1 H Red Blood Count 3.44 L Hemoglobin 9.6 L Hematocrit 30.9 L Mean Corpuscular Volume 89.8 Mean Corpuscular Hemoglobin 27.9 L Mean Corpuscular Hemoglobin Concent 31.1 L Red Cell Distribution Width 18.4 H Platelet Count 347 Mean Platelet Volume 9.9 Neutrophils % 48.9 Lymphocytes % 32.4 Monocytes % 11.6 H Eosinophils % 4.9 Basophils % 0.7 Nucleated Red Blood Cells % 0.0 Neutrophils # 7.4 Lymphocytes # 4.9 H Monocytes # 1.8 H Eosinophils # 0.7 H Basophils # 0.1 Nucleated Red Blood Cells # 0.0 Sodium Level 140 Potassium Level 3.6 Chloride Level 118 H Carbon Dioxide Level 25 Anion Gap 1 L Blood Urea Nitrogen 29 H Creatinine 0.60 Glucose Level 72 Calcium Level 5.9 *L Magnesium Level 1.4 L Bedside Glucose 124 157 Medications Medications Current Medications Ondansetron HCl (Zofran Inj) 4 mg Q6H PRN IV NAUSEA AND/OR VOMITING; Start at 16:30 IV Flush (NS 10 ml) 10 ml PRN PRN IV IV PROTOCOL; Start 01/15/17 at 18:30 Miscellaneous Information 1 ea NOTE XX ; Start 01/15/17 at 19:00 Glucose (Glutose) 15 gm Q15M PRN PO DECREASED GLUCOSE; Start 01/15/17 at 19:00 Glucose (Glutose) 22.5 gm Q15M PRN PO DECREASED GLUCOSE; Start 01/15/17 at 19: 00 Dextrose (D50w Syringe) 25 ml Q15M PRN IV DECREASED GLUCOSE Last administered on 01/21/17 20:37; Admin Dose 25 ML; Start 01/15/17 at 19:00 Dextrose (D50w Syringe) 50 ml Q15M PRN IV DECREASED GLUCOSE; Start 01/15/17 at 19:00 Glucagon (Glucagen) 1 mg Q15M PRN IM DECREASED GLUCOSE; Start 01/15/17 at 19:00 Glucose (Glutose) 15 gm Q15M PRN BUCCAL DECREASED GLUCOSE Last administered on 01/21/17 19:53; Admin Dose 15 GM; Start 01/15/17 at 19:00 Diagnostic Test (Pha) (Accu-Chek) 1 ea 02 XX Last administered on 02/15/17 02: 08; Admin Dose 1 EA; Start 01/16/17 at 02:00 Hydralazine HCl (Apresoline) 10 mg Q6 PRN IV ELEVATED BLOOD PRESSURE Last administered on 01/17/17 03:05; Admin Dose 10 MG; Start 01/17/17 at 03:00 Acetaminophen (Tylenol Supp) 650 mg Q6H PRN [place] FEVER GREATER THAN 100.6 Last administered on 01/17/17 07:26; Admin Dose 650 MG; Start 01/17/17 at 07:00 Nystatin (Nystatin Powder) 1 applic BID TOP Last administered on 02/15/17 09: 45; Admin Dose 1 APPLIC; Start 01/18/17 at 21:00 Bisacodyl (Dulcolax Supp) 10 mg BID PRN [place] CONSTIPATION; Start 01/19/17 at 12: 00 Sodium Biphosphate/ Sodium Phosphate 133 ml 133 ml BID PRN [place] CONSTIPATION; Start 01/19/17 at 12:00 Meropenem/Sodium Chloride (Merrem 1 Gm/50 ml (Pmx)) 50 ml @ 100 mls/hr Q8 IVPB Last administered on 02/15/17 05:58; Admin Dose 100 MLS/HR; Start 01/19/17 at 15:00 Zolpidem Tartrate (Ambien) 10 mg HS PRN PO INSOMNIA Last administered on 22:18; Admin Dose 10 MG; Start 01/21/17 at 13:30 IV Flush (NS 10 ml) 10 ml PRN PRN IV IV PROTOCOL; Start 01/21/17 at 19:00 Insulin Human NPH (Humulin N) 10 unit BID@08,20 SC Last administered on 09:42; Admin Dose 10 UNIT; Start 01/22/17 at 08:00 Ascorbic Acid (Vitamin C) 500 mg BID GTB Last administered on 02/15/17 09:40; Admin Dose 500 MG; Start 01/23/17 at 21:00 Insulin Aspart (Novolog Insulin Pen) NOVOLOG *MODERATE* ALGORITHM Q4 SC Last administered on 02/15/17 09:42; Admin Dose 2 UNIT; Start 01/27/17 at 17:00 Neomycin/ Polymyxin/ Bacitracin (Neosporin Topical Oint) 1 applic BID TOP Last administered on 02/15/17 09:45; Admin Dose 1 APPLIC; Start 01/28/17 at 09:00 Hydrogen Peroxide 1 applic 1 applic BID TOP Last administered on 02/15/17 09: 45; Admin Dose 1 APPLIC; Start 01/28/17 at 09:00 Tigecycline/ Sodium Chloride (Tygacil/NS) 100 ml @ 200 mls/hr Q12 IVPB Last administered on 02/15/17 09:39; Admin Dose 200 MLS/HR; Start 01/29/17 at 21:00 Acetaminophen (Tylenol Tab) 650 mg Q6H PRN GTB PAIN LEVEL 1-3 OR FEVER Last administered on 02/05/17 21:03; Admin Dose 650 MG; Start 02/04/17 at 10:58 Apixaban (Eliquis) 5 mg BID GTB Last administered on 02/15/17 09:40; Admin Dose 5 MG; Start 02/04/17 at 10:59 Calcium Carbonate (Tums) 500 mg BID GTB Last administered on 02/15/17 09:40; Admin Dose 500 MG; Start 02/04/17 at 11:00 Clonidine (Catapres) 0.1 mg Q6H PRN GTB BLOOD PRESSURE SBP>160; Start 02/04/17 at 11:01 Docusate Sodium (Colace Liquid Cup) 100 mg BID PRN GTB CONSTIPATION; Start at 11:30 Famotidine (Pepcid) 20 mg DAILY GTB Last administered on 02/15/17 09:40; Admin Dose 20 MG; Start 02/04/17 at 11:03 Ferrous Sulfate (Feosol Liquid Cup) 225 mg DAILY GTB Last administered on 09:40; Admin Dose 225 MG; Start 02/04/17 at 11:30 Montelukast Sodium (Singulair) 10 mg QHS GTB Last administered on 02/14/17 20: 19; Admin Dose 10 MG; Start 02/04/17 at 11:12 Trimethoprim/ Sulfamethoxazole (Bactrim (Ds)) 1 tab BID GTB Last administered on 02/15/17 09:40; Admin Dose 1 TAB; Start 02/08/17 at 09:00; Stop 02/16/17 at 08:59 Guaifenesin (Robitussin Liquid Cup) 200 mg Q4H PRN GTB COUGH Last administered on 02/10/17 06:12; Admin Dose 200 MG; Start 02/08/17 at 23:30 Methadone HCl (Methadone) 10 mg HS PRN GTB pain Last administered on 02/14/17 20:20; Admin Dose 10 MG; Start 02/11/17 at 21:00 Acetaminophen/ Hydrocodone Bitart ([place] (5/325)) 0.5 tab Q8 PRN GTB pain Last administered on 02/13/17 19:00; Admin Dose 0.5 TAB; Start 02/11/17 at 15:00 Amlodipine Besylate (Norvasc) 5 mg DAILY PO Last administered on 02/15/17 09: 40; Admin Dose 5 MG; Start 02/14/17 at 09:00 Collagenase (Santyl) 1 applic DAILY TOP Last administered on 02/14/17 09:05; Admin Dose 1 APPLIC; Start 02/13/17 at 14:00 RIGDE MATTHEWS MD Feb 15, 2017 14:00
[2017-02-15 15:04] VITALS: BP 128/60; RESP 20
--- NOTE | 2017-02-15 15:24 | CONS ---
Date/Time of Note Date/Time of Note DATE: 02/15/17 TIME: 15:22 Assessment/Plan Assessment/Plan Additional Assessment/Plan Sacral decubiti DVT of left upper extremity History of paroxysmal atrial fibrillation Preserved ejection fraction Peripheral arterial disease -BP trend overall stable. Tolerating anticoagulation. No new cardiac orders at the current time. Consultation Date/Type/Reason Admit Date/Time Jan 15, 2017 at 14:33 Initial Consult Date 01/19/17 Type of Consultation: cv Referring Provider: RIDGE MATTHEWS MD 24 HR Interval Summary Free Text/Dictation pt seen and examined. Exam/Review of Systems Vital Signs Vitals Vital Signs Date Time Temp Pulse Resp B/P Pulse Ox O2 Delivery O2 Flow Rate FiO2 02/15/17 15:04 97.9 66 20 128/60 97 02/15/17 09:30 Nasal Cannula 2.0 Intake and Output 02/14/17 02/14/17 02/15/17 15:00 23:00 07:00 Intake Total 1230 ml 370 ml Output Total 1150 ml 700 ml Balance 80 ml -330 ml Exam sleeping but arrousable, nad Head: normocephalic Respiratory: other (course bs, no wheeze) Gastrointestinal: bowel sounds, non-tender, soft Extremities: edema Results Result Diagram: 02/15/17 0435 02/15/17 0435 Results 24 hrs Laboratory Tests Test 02/14/17 15:50 02/14/17 17:32 02/14/17 20:15 02/15/17 02:07 Potassium Level 5.3 H Bedside Glucose 191 155 120 Test 02/15/17 04:35 02/15/17 05:57 02/15/17 09:37 02/15/17 14:04 White Blood Count 15.1 H Red Blood Count 3.44 L Hemoglobin 9.6 L Hematocrit 30.9 L Mean Corpuscular Volume 89.8 Mean Corpuscular Hemoglobin 27.9 L Mean Corpuscular Hemoglobin Concent 31.1 L Red Cell Distribution Width 18.4 H Platelet Count 347 Mean Platelet Volume 9.9 Neutrophils % 48.9 Lymphocytes % 32.4 Monocytes % 11.6 H Eosinophils % 4.9 Basophils % 0.7 Nucleated Red Blood Cells % 0.0 Neutrophils # 7.4 Lymphocytes # 4.9 H Monocytes # 1.8 H Eosinophils # 0.7 H Basophils # 0.1 Nucleated Red Blood Cells # 0.0 Sodium Level 140 Potassium Level 3.6 Chloride Level 118 H Carbon Dioxide Level 25 Anion Gap 1 L Blood Urea Nitrogen 29 H Creatinine 0.60 Glucose Level 72 Calcium Level 5.9 *L Magnesium Level 1.4 L Bedside Glucose 124 157 159 Medications Medications Current Medications Ondansetron HCl (Zofran Inj) 4 mg Q6H PRN IV NAUSEA AND/OR VOMITING; Start at 16:30 IV Flush (NS 10 ml) 10 ml PRN PRN IV IV PROTOCOL; Start 01/15/17 at 18:30 Miscellaneous Information 1 ea NOTE XX ; Start 01/15/17 at 19:00 Glucose (Glutose) 15 gm Q15M PRN PO DECREASED GLUCOSE; Start 01/15/17 at 19:00 Glucose (Glutose) 22.5 gm Q15M PRN PO DECREASED GLUCOSE; Start 01/15/17 at 19: 00 Dextrose (D50w Syringe) 25 ml Q15M PRN IV DECREASED GLUCOSE Last administered on 01/21/17 20:37; Admin Dose 25 ML; Start 01/15/17 at 19:00 Dextrose (D50w Syringe) 50 ml Q15M PRN IV DECREASED GLUCOSE; Start 01/15/17 at 19:00 Glucagon (Glucagen) 1 mg Q15M PRN IM DECREASED GLUCOSE; Start 01/15/17 at 19:00 Glucose (Glutose) 15 gm Q15M PRN BUCCAL DECREASED GLUCOSE Last administered on 01/21/17 19:53; Admin Dose 15 GM; Start 01/15/17 at 19:00 Diagnostic Test (Pha) (Accu-Chek) 1 ea 02 XX Last administered on 02/15/17 02: 08; Admin Dose 1 EA; Start 01/16/17 at 02:00 Hydralazine HCl (Apresoline) 10 mg Q6 PRN IV ELEVATED BLOOD PRESSURE Last administered on 01/17/17 03:05; Admin Dose 10 MG; Start 01/17/17 at 03:00 Acetaminophen (Tylenol Supp) 650 mg Q6H PRN [place] FEVER GREATER THAN 100.6 Last administered on 01/17/17 07:26; Admin Dose 650 MG; Start 01/17/17 at 07:00 Nystatin (Nystatin Powder) 1 applic BID TOP Last administered on 02/15/17 09: 45; Admin Dose 1 APPLIC; Start 01/18/17 at 21:00 Bisacodyl (Dulcolax Supp) 10 mg BID PRN [place] CONSTIPATION; Start 01/19/17 at 12: 00 Sodium Biphosphate/ Sodium Phosphate 133 ml 133 ml BID PRN [place] CONSTIPATION; Start 01/19/17 at 12:00 Meropenem/Sodium Chloride (Merrem 1 Gm/50 ml (Pmx)) 50 ml @ 100 mls/hr Q8 IVPB Last administered on 02/15/17 14:05; Admin Dose 100 MLS/HR; Start 01/19/17 at 15:00 Zolpidem Tartrate (Ambien) 10 mg HS PRN PO INSOMNIA Last administered on 22:18; Admin Dose 10 MG; Start 01/21/17 at 13:30 IV Flush (NS 10 ml) 10 ml PRN PRN IV IV PROTOCOL; Start 01/21/17 at 19:00 Insulin Human NPH (Humulin N) 10 unit BID@08,20 SC Last administered on 09:42; Admin Dose 10 UNIT; Start 01/22/17 at 08:00 Ascorbic Acid (Vitamin C) 500 mg BID GTB Last administered on 02/15/17 09:40; Admin Dose 500 MG; Start 01/23/17 at 21:00 Insulin Aspart (Novolog Insulin Pen) NOVOLOG *MODERATE* ALGORITHM Q4 SC Last administered on 02/15/17 14:06; Admin Dose 2 UNIT; Start 01/27/17 at 17:00 Neomycin/ Polymyxin/ Bacitracin (Neosporin Topical Oint) 1 applic BID TOP Last administered on 02/15/17 09:45; Admin Dose 1 APPLIC; Start 01/28/17 at 09:00 Hydrogen Peroxide 1 applic 1 applic BID TOP Last administered on 02/15/17 09: 45; Admin Dose 1 APPLIC; Start 01/28/17 at 09:00 Tigecycline/ Sodium Chloride (Tygacil/NS) 100 ml @ 200 mls/hr Q12 IVPB Last administered on 02/15/17 09:39; Admin Dose 200 MLS/HR; Start 01/29/17 at 21:00 Acetaminophen (Tylenol Tab) 650 mg Q6H PRN GTB PAIN LEVEL 1-3 OR FEVER Last administered on 02/05/17 21:03; Admin Dose 650 MG; Start 02/04/17 at 10:58 Apixaban (Eliquis) 5 mg BID GTB Last administered on 02/15/17 09:40; Admin Dose 5 MG; Start 02/04/17 at 10:59 Calcium Carbonate (Tums) 500 mg BID GTB Last administered on 02/15/17 09:40; Admin Dose 500 MG; Start 02/04/17 at 11:00 Clonidine (Catapres) 0.1 mg Q6H PRN GTB BLOOD PRESSURE SBP>160; Start 02/04/17 at 11:01 Docusate Sodium (Colace Liquid Cup) 100 mg BID PRN GTB CONSTIPATION; Start at 11:30 Famotidine (Pepcid) 20 mg DAILY GTB Last administered on 02/15/17 09:40; Admin Dose 20 MG; Start 02/04/17 at 11:03 Ferrous Sulfate (Feosol Liquid Cup) 225 mg DAILY GTB Last administered on 09:40; Admin Dose 225 MG; Start 02/04/17 at 11:30 Montelukast Sodium (Singulair) 10 mg QHS GTB Last administered on 02/14/17 20: 19; Admin Dose 10 MG; Start 02/04/17 at 11:12 Trimethoprim/ Sulfamethoxazole (Bactrim (Ds)) 1 tab BID GTB Last administered on 02/15/17 09:40; Admin Dose 1 TAB; Start 02/08/17 at 09:00; Stop 02/16/17 at 08:59 Guaifenesin (Robitussin Liquid Cup) 200 mg Q4H PRN GTB COUGH Last administered on 02/10/17 06:12; Admin Dose 200 MG; Start 02/08/17 at 23:30 Methadone HCl (Methadone) 10 mg HS PRN GTB pain Last administered on 02/14/17 20:20; Admin Dose 10 MG; Start 02/11/17 at 21:00 Acetaminophen/ Hydrocodone Bitart ([place] (5/325)) 0.5 tab Q8 PRN GTB pain Last administered on 02/13/17 19:00; Admin Dose 0.5 TAB; Start 02/11/17 at 15:00 Amlodipine Besylate (Norvasc) 5 mg DAILY PO Last administered on 02/15/17 09: 40; Admin Dose 5 MG; Start 02/14/17 at 09:00 Collagenase (Santyl) 1 applic DAILY TOP Last administered on 02/14/17 09:05; Admin Dose 1 APPLIC; Start 02/13/17 at 14:00 Tucker Jacome DO Feb 15, 2017 15:24
[2017-02-15] MEDS: HYDROCODONE/APAP (5/325) TAB GTB PRN (18:45)
[2017-02-15 21:03] VITALS: BP 113/50; RESP 18
[2017-02-15] MEDS: MONTELUKAST 10 MG TAB GTB SCH (21:12)
[2017-02-15] MEDS: ZOLPIDEM 5 MG TAB PO PRN (21:15)
[2017-02-16] MEDS: INSULIN ASPART [NOVOLOG] 3 ML PEN SC SCH ×6 (01:00→20:42)
[2017-02-16] MEDS: ACCU-CHEK XX SCH (01:10)
[2017-02-16 02:50] VITALS: BP 138/65; RESP 18
[2017-02-16] MEDS: MEROPENEM 1 GM/50ML(PMX) 50 ML IVPB SCH ×3 (06:17→22:15)
[2017-02-16 08:53] VITALS: BP 136/99; RESP 20
[2017-02-16] MEDS: NPH, HUMAN INSULIN ISOPHANE 3ML VIAL SC SCH ×2 (08:58→20:40)
[2017-02-16] MEDS: APIXABAN 5 MG TABLET GTB SCH (09:01)
[2017-02-16] MEDS: FERROUS SULFATE 60 MG/ML 5ML CUP GTB SCH (09:01)
[2017-02-16] MEDS: CALCIUM CARBONATE 500 MG CHEW TAB GTB SCH ×2 (09:02→20:37)
[2017-02-16] MEDS: ASCORBIC ACID 500 MG TAB GTB SCH ×2 (09:02→20:37)
[2017-02-16] MEDS: AMLODIPINE 5 MG TAB PO SCH (09:02)
[2017-02-16] MEDS: TIGECYCLINE 50 MG in SOD CHLORIDE 0.9% 100 ML IVPB SCH ×2 (09:02→20:35)
[2017-02-16] MEDS: FAMOTIDINE 20 MG TAB GTB SCH (09:02)
[2017-02-16] MEDS: NYSTATIN 30 GM POWDER BTL TOP SCH ×2 (09:04→22:17)
[2017-02-16] MEDS: NEOMYC/POLYMYX/BACIT 30 GM OINT TOP SCH ×2 (09:04→22:17)
[2017-02-16] MEDS: HYDROGEN PEROXIDE 118 ML TOP SCH ×2 (09:05→22:17)
[2017-02-16] MEDS: COLLAGENASE 30 GM TUBE TOP SCH (09:06)
[2017-02-16] MEDS: HYDROCODONE/APAP (5/325) TAB GTB PRN ×2 (09:49→20:36)
[2017-02-16] MEDS ORDERED: EPOETIN 10000 UNITS/ML (NON ESRD/NON ONCOLOGY) SC SCH (12:30)
--- NOTE | 2017-02-16 13:00 | PN ---
Date/Time of Note Date/Time of Note DATE: 02/16/17 TIME: 12:54 Assessment/Plan VTE Prophylaxis VTE Prophylaxis Intervention: other Lines/Catheters IV Catheter Type (from Nrsg): PICC Line Central line still needed: Yes Urinary Cath still in place: Yes Reason Cath still needed: skin wounds contaminated by urine Assessment/Plan Chief Complaint/Hosp Course more awake 02/15 mild abd pain. . Problems: Assessment/Plan easily arousible . lungs cta Problems: Assessment/Plan awake and anwers questions. c/o pain abd but no pain with palp. low ca. had high K over the weekend. 02/11arousible today. not given meth this am. prn norco. better resp sounds. 02/10 off am methadone, now note lung congestion with inspir. arousible. k mild elevated 5.3 lower dose of methadone 10 am and still sedated. wound reported mild improvement 02/07 wbc going back up and the hgb going down 02/08 wbc still going up. pt sedated. nurse and family says always sedated. --hgb 7.9 transfused 1u prbc on high K- K high over the weekend and required kayex. losartan was d/c'd. cont to watch K sacral stage IV decub, growing proteus and ecoli and s.aureus. on merrem/vanco , being treated by ID. 02/19 debrided and eval for osteo. called ortho- they report that nothing for them to do regarding fx or osteo of sacrum. wbc improving. -path report +osteo. ortho called and will not treat. - vre grew. now on tigecycline/merrem. -if wound does not improve, ID is recommending diverting colostomy.---wound is mildly better. multi bugs growing. ID deciding if any changes of med. wbc has cont to improve. -currently afebrile. -----ID reports 02/08 - Acinetobacter is resistant to colisitin, intermediate to minocycline (PROMISE of 8) and Tigecycline PROMISE is 2 (no interpretation available but likely sensitive) continue with merrem/tigecycline thru 03/12, monitor ESR on a weekly basis wound appears to be improving and ESR has come down will add bactrim temporarily to see if it will improve her leukocytosis one of the possible side effects of tigecycline is leukocytosis left pneumonia. no further congestion. will cont regular HHN. encourage no pain med in the am. lung clear. now stable and will decrease the HHN poor appetite- gtube in place. pt is allowed p.o. intake with aspiration precautions. not oral eating much since sedated. if pt is able to eat on own may stop gtube. mentation -pain controlled with methadone. pt too sedated. pt now on methadone in evening. and 1/2 norco q 8 inthe day. was able to anwer few questions. denies pain. better since off meth in the am. cont. not in extreme pain. 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 off losartan dmII since gtube feeding, adjusting the insulin. doing well accu check stable. paroxysmal afib on last admission- occurred during sepsis and intubation. pt changed to elliquis. stable h/o left dvt of UE. will hold eliquis due to cont to anemic. left dvt is old and stable. prep for d/c to snf tomorrow. get ID to determine meds and length and f/u. Exam/Review of Systems Vital Signs Vitals Vital Signs Date Time Temp Pulse Resp B/P Pulse Ox O2 Delivery O2 Flow Rate FiO2 02/16/17 08:53 98.7 79 20 136/99 100 02/15/17 22:00 Nasal Cannula 2.0 Intake and Output 02/15/17 02/15/17 02/16/17 15:00 23:00 07:00 Intake Total 1380 ml 320 ml Output Total 600 ml 600 ml Balance 780 ml -280 ml Results Result Diagram: 02/15/17 0435 02/15/17 0435 Results 24 hrs Laboratory Tests Test 02/15/17 14:04 02/15/17 17:21 02/15/17 21:09 02/16/17 01:08 Bedside Glucose 159 133 135 94 Test 02/16/17 06:18 02/16/17 08:54 Bedside Glucose 77 115 Medications Medications Current Medications Ondansetron HCl (Zofran Inj) 4 mg Q6H PRN IV NAUSEA AND/OR VOMITING; Start at 16:30 IV Flush (NS 10 ml) 10 ml PRN PRN IV IV PROTOCOL; Start 01/15/17 at 18:30 Miscellaneous Information 1 ea NOTE XX ; Start 01/15/17 at 19:00 Glucose (Glutose) 15 gm Q15M PRN PO DECREASED GLUCOSE; Start 01/15/17 at 19:00 Glucose (Glutose) 22.5 gm Q15M PRN PO DECREASED GLUCOSE; Start 01/15/17 at 19: 00 Dextrose (D50w Syringe) 25 ml Q15M PRN IV DECREASED GLUCOSE Last administered on 01/21/17 20:37; Admin Dose 25 ML; Start 01/15/17 at 19:00 Dextrose (D50w Syringe) 50 ml Q15M PRN IV DECREASED GLUCOSE; Start 01/15/17 at 19:00 Glucagon (Glucagen) 1 mg Q15M PRN IM DECREASED GLUCOSE; Start 01/15/17 at 19:00 Glucose (Glutose) 15 gm Q15M PRN BUCCAL DECREASED GLUCOSE Last administered on 01/21/17 19:53; Admin Dose 15 GM; Start 01/15/17 at 19:00 Diagnostic Test (Pha) (Accu-Chek) 1 ea 02 XX Last administered on 02/15/17 02: 08; Admin Dose 1 EA; Start 01/16/17 at 02:00 Hydralazine HCl (Apresoline) 10 mg Q6 PRN IV ELEVATED BLOOD PRESSURE Last administered on 01/17/17 03:05; Admin Dose 10 MG; Start 01/17/17 at 03:00 Acetaminophen (Tylenol Supp) 650 mg Q6H PRN [place] FEVER GREATER THAN 100.6 Last administered on 01/17/17 07:26; Admin Dose 650 MG; Start 01/17/17 at 07:00 Nystatin (Nystatin Powder) 1 applic BID TOP Last administered on 02/16/17 09: 04; Admin Dose 1 APPLIC; Start 01/18/17 at 21:00 Bisacodyl (Dulcolax Supp) 10 mg BID PRN [place] CONSTIPATION; Start 01/19/17 at 12: 00 Sodium Biphosphate/ Sodium Phosphate 133 ml 133 ml BID PRN [place] CONSTIPATION; Start 01/19/17 at 12:00 Meropenem/Sodium Chloride (Merrem 1 Gm/50 ml (Pmx)) 50 ml @ 100 mls/hr Q8 IVPB Last administered on 02/16/17 06:17; Admin Dose 100 MLS/HR; Start 01/19/17 at 15:00 Zolpidem Tartrate (Ambien) 10 mg HS PRN PO INSOMNIA Last administered on 21:15; Admin Dose 10 MG; Start 01/21/17 at 13:30 IV Flush (NS 10 ml) 10 ml PRN PRN IV IV PROTOCOL; Start 01/21/17 at 19:00 Insulin Human NPH (Humulin N) 10 unit BID@08,20 SC Last administered on 08:58; Admin Dose 10 UNIT; Start 01/22/17 at 08:00 Ascorbic Acid (Vitamin C) 500 mg BID GTB Last administered on 02/16/17 09:02; Admin Dose 500 MG; Start 01/23/17 at 21:00 Insulin Aspart (Novolog Insulin Pen) NOVOLOG *MODERATE* ALGORITHM Q4 SC Last administered on 02/15/17 14:06; Admin Dose 2 UNIT; Start 01/27/17 at 17:00 Neomycin/ Polymyxin/ Bacitracin (Neosporin Topical Oint) 1 applic BID TOP Last administered on 02/16/17 09:04; Admin Dose 1 APPLIC; Start 01/28/17 at 09:00 Hydrogen Peroxide 1 applic 1 applic BID TOP Last administered on 02/16/17 09: 05; Admin Dose 1 APPLIC; Start 01/28/17 at 09:00 Tigecycline/ Sodium Chloride (Tygacil/NS) 100 ml @ 200 mls/hr Q12 IVPB Last administered on 02/16/17 09:02; Admin Dose 200 MLS/HR; Start 01/29/17 at 21:00 Acetaminophen (Tylenol Tab) 650 mg Q6H PRN GTB PAIN LEVEL 1-3 OR FEVER Last administered on 02/05/17 21:03; Admin Dose 650 MG; Start 02/04/17 at 10:58 Apixaban (Eliquis) 5 mg BID GTB Last administered on 02/16/17 09:01; Admin Dose 5 MG; Start 02/04/17 at 10:59; Status Future Hold Calcium Carbonate (Tums) 500 mg BID GTB Last administered on 02/16/17 09:02; Admin Dose 500 MG; Start 02/04/17 at 11:00 Clonidine (Catapres) 0.1 mg Q6H PRN GTB BLOOD PRESSURE SBP>160; Start 02/04/17 at 11:01 Docusate Sodium (Colace Liquid Cup) 100 mg BID PRN GTB CONSTIPATION; Start at 11:30 Famotidine (Pepcid) 20 mg DAILY GTB Last administered on 02/16/17 09:02; Admin Dose 20 MG; Start 02/04/17 at 11:03 Ferrous Sulfate (Feosol Liquid Cup) 225 mg DAILY GTB Last administered on 09:01; Admin Dose 225 MG; Start 02/04/17 at 11:30 Montelukast Sodium (Singulair) 10 mg QHS GTB Last administered on 02/15/17 21: 12; Admin Dose 10 MG; Start 02/04/17 at 11:12 Guaifenesin (Robitussin Liquid Cup) 200 mg Q4H PRN GTB COUGH Last administered on 02/10/17 06:12; Admin Dose 200 MG; Start 02/08/17 at 23:30 Methadone HCl (Methadone) 10 mg HS PRN GTB pain Last administered on 02/14/17 20:20; Admin Dose 10 MG; Start 02/11/17 at 21:00 Acetaminophen/ Hydrocodone Bitart ([place] (5/325)) 0.5 tab Q8 PRN GTB pain Last administered on 02/16/17 09:49; Admin Dose 0.5 TAB; Start 02/11/17 at 15:00 Amlodipine Besylate (Norvasc) 5 mg DAILY PO Last administered on 02/16/17 09: 02; Admin Dose 5 MG; Start 02/14/17 at 09:00 Collagenase (Santyl) 1 applic DAILY TOP Last administered on 02/16/17 09:06; Admin Dose 1 APPLIC; Start 02/13/17 at 14:00 Epoetin B[place] (Epogen (Non Esrd/Non Oncology)) 10,000 units ONCE SC ; Start 02/16 at 12:30; Stop 02/16/17 at 20:00 RIDGE MATTHEWS MD Feb 16, 2017 13:00
[2017-02-16] MEDS ORDERED: EPOETIN 10000 UNITS/ML (NON ESRD/NON ONCOLOGY) SC ONE (14:00)
[2017-02-16 15:28] VITALS: BP 137/59; RESP 20
--- NOTE | 2017-02-16 16:23 | CONS ---
Date/Time of Note Date/Time of Note DATE: 02/16/17 TIME: 16:21 Assessment/Plan Assessment/Plan Additional Assessment/Plan Sacral decubiti DVT of left upper extremity History of paroxysmal atrial fibrillation Preserved ejection fraction Peripheral arterial disease -BP trend overall stable. Tolerating anticoagulation. Will order magnesium supplementation. Consultation Date/Type/Reason Admit Date/Time Jan 15, 2017 at 14:33 Initial Consult Date 01/19/17 Type of Consultation: cv Referring Provider: RIDGE MATTHEWS MD 24 HR Interval Summary Free Text/Dictation Patient seen and examined Exam/Review of Systems Vital Signs Vitals Vital Signs Date Time Temp Pulse Resp B/P Pulse Ox O2 Delivery O2 Flow Rate FiO2 02/16/17 15:28 98.5 77 20 137/59 100 02/16/17 08:00 Nasal Cannula 2.0 Intake and Output 02/15/17 02/15/17 02/16/17 15:00 23:00 07:00 Intake Total 1380 ml 320 ml Output Total 600 ml 600 ml Balance 780 ml -280 ml Exam Sleeping but arousable, no apparent distress Head: normocephalic Respiratory: other (Coarse breath sounds bilaterally, no wheezing) Cardiovascular: other (S1-S2 heard), regular rate and rhythm Gastrointestinal: bowel sounds, non-tender, soft Extremities: edema Results Result Diagram: 02/15/17 0435 02/15/17 0435 Results 24 hrs Laboratory Tests Test 02/15/17 17:21 02/15/17 21:09 02/16/17 01:08 02/16/17 06:18 Bedside Glucose 133 135 94 77 Test 02/16/17 08:54 02/16/17 13:49 Bedside Glucose 115 103 Medications Medications Current Medications Ondansetron HCl (Zofran Inj) 4 mg Q6H PRN IV NAUSEA AND/OR VOMITING; Start at 16:30 IV Flush (NS 10 ml) 10 ml PRN PRN IV IV PROTOCOL; Start 01/15/17 at 18:30 Miscellaneous Information 1 ea NOTE XX ; Start 01/15/17 at 19:00 Glucose (Glutose) 15 gm Q15M PRN PO DECREASED GLUCOSE; Start 01/15/17 at 19:00 Glucose (Glutose) 22.5 gm Q15M PRN PO DECREASED GLUCOSE; Start 01/15/17 at 19: 00 Dextrose (D50w Syringe) 25 ml Q15M PRN IV DECREASED GLUCOSE Last administered on 01/21/17 20:37; Admin Dose 25 ML; Start 01/15/17 at 19:00 Dextrose (D50w Syringe) 50 ml Q15M PRN IV DECREASED GLUCOSE; Start 01/15/17 at 19:00 Glucagon (Glucagen) 1 mg Q15M PRN IM DECREASED GLUCOSE; Start 01/15/17 at 19:00 Glucose (Glutose) 15 gm Q15M PRN BUCCAL DECREASED GLUCOSE Last administered on 01/21/17 19:53; Admin Dose 15 GM; Start 01/15/17 at 19:00 Diagnostic Test (Pha) (Accu-Chek) 1 ea 02 XX Last administered on 02/15/17 02: 08; Admin Dose 1 EA; Start 01/16/17 at 02:00 Hydralazine HCl (Apresoline) 10 mg Q6 PRN IV ELEVATED BLOOD PRESSURE Last administered on 01/17/17 03:05; Admin Dose 10 MG; Start 01/17/17 at 03:00 Acetaminophen (Tylenol Supp) 650 mg Q6H PRN [place] FEVER GREATER THAN 100.6 Last administered on 01/17/17 07:26; Admin Dose 650 MG; Start 01/17/17 at 07:00 Nystatin (Nystatin Powder) 1 applic BID TOP Last administered on 02/16/17 09: 04; Admin Dose 1 APPLIC; Start 01/18/17 at 21:00 Bisacodyl (Dulcolax Supp) 10 mg BID PRN [place] CONSTIPATION; Start 01/19/17 at 12: 00 Sodium Biphosphate/ Sodium Phosphate 133 ml 133 ml BID PRN [place] CONSTIPATION; Start 01/19/17 at 12:00 Meropenem/Sodium Chloride (Merrem 1 Gm/50 ml (Pmx)) 50 ml @ 100 mls/hr Q8 IVPB Last administered on 02/16/17 13:52; Admin Dose 100 MLS/HR; Start 01/19/17 at 15:00 Zolpidem Tartrate (Ambien) 10 mg HS PRN PO INSOMNIA Last administered on 21:15; Admin Dose 10 MG; Start 01/21/17 at 13:30 IV Flush (NS 10 ml) 10 ml PRN PRN IV IV PROTOCOL; Start 01/21/17 at 19:00 Insulin Human NPH (Humulin N) 10 unit BID@08,20 SC Last administered on 08:58; Admin Dose 10 UNIT; Start 01/22/17 at 08:00 Ascorbic Acid (Vitamin C) 500 mg BID GTB Last administered on 02/16/17 09:02; Admin Dose 500 MG; Start 01/23/17 at 21:00 Insulin Aspart (Novolog Insulin Pen) NOVOLOG *MODERATE* ALGORITHM Q4 SC Last administered on 02/15/17 14:06; Admin Dose 2 UNIT; Start 01/27/17 at 17:00 Neomycin/ Polymyxin/ Bacitracin (Neosporin Topical Oint) 1 applic BID TOP Last administered on 02/16/17 09:04; Admin Dose 1 APPLIC; Start 01/28/17 at 09:00 Hydrogen Peroxide 1 applic 1 applic BID TOP Last administered on 02/16/17 09: 05; Admin Dose 1 APPLIC; Start 01/28/17 at 09:00 Tigecycline/ Sodium Chloride (Tygacil/NS) 100 ml @ 200 mls/hr Q12 IVPB Last administered on 02/16/17 09:02; Admin Dose 200 MLS/HR; Start 01/29/17 at 21:00 Acetaminophen (Tylenol Tab) 650 mg Q6H PRN GTB PAIN LEVEL 1-3 OR FEVER Last administered on 02/05/17 21:03; Admin Dose 650 MG; Start 02/04/17 at 10:58 Apixaban (Eliquis) 5 mg BID GTB Last administered on 02/16/17 09:01; Admin Dose 5 MG; Start 02/04/17 at 10:59; Status Future Hold Calcium Carbonate (Tums) 500 mg BID GTB Last administered on 02/16/17 09:02; Admin Dose 500 MG; Start 02/04/17 at 11:00 Clonidine (Catapres) 0.1 mg Q6H PRN GTB BLOOD PRESSURE SBP>160; Start 02/04/17 at 11:01 Docusate Sodium (Colace Liquid Cup) 100 mg BID PRN GTB CONSTIPATION; Start at 11:30 Famotidine (Pepcid) 20 mg DAILY GTB Last administered on 02/16/17 09:02; Admin Dose 20 MG; Start 02/04/17 at 11:03 Ferrous Sulfate (Feosol Liquid Cup) 225 mg DAILY GTB Last administered on 09:01; Admin Dose 225 MG; Start 02/04/17 at 11:30 Montelukast Sodium (Singulair) 10 mg QHS GTB Last administered on 02/15/17 21: 12; Admin Dose 10 MG; Start 02/04/17 at 11:12 Guaifenesin (Robitussin Liquid Cup) 200 mg Q4H PRN GTB COUGH Last administered on 02/10/17 06:12; Admin Dose 200 MG; Start 02/08/17 at 23:30 Methadone HCl (Methadone) 10 mg HS PRN GTB pain Last administered on 02/14/17 20:20; Admin Dose 10 MG; Start 02/11/17 at 21:00 Acetaminophen/ Hydrocodone Bitart ([place] (5/325)) 0.5 tab Q8 PRN GTB pain Last administered on 02/16/17 09:49; Admin Dose 0.5 TAB; Start 02/11/17 at 15:00 Amlodipine Besylate (Norvasc) 5 mg DAILY PO Last administered on 02/16/17 09: 02; Admin Dose 5 MG; Start 02/14/17 at 09:00 Collagenase (Santyl) 1 applic DAILY TOP Last administered on 02/16/17 09:06; Admin Dose 1 APPLIC; Start 02/13/17 at 14:00 Epoetin B[place] (Epogen (Non Esrd/Non Oncology)) 10,000 units ONCE SC Last administered on 02/16/17 13:52; Admin Dose 10,000 UNITS; Start 02/16/17 at 12: 30; Stop 02/16/17 at 20:00 Tucker Jacome DO Feb 16, 2017 16:23
[2017-02-16] MEDS ORDERED: MAGNESIUM SULFATE 3 GM in SOD CHLORIDE 0.9% 100 ML IVPB ONE (17:30)
[2017-02-16] MEDS: MONTELUKAST 10 MG TAB GTB SCH (20:36)
[2017-02-16 20:49] VITALS: BP 119/55; RESP 19
[2017-02-16] MEDS: METHADONE 10 MG TAB GTB PRN (22:16)
[2017-02-17] MEDS: INSULIN ASPART [NOVOLOG] 3 ML PEN SC SCH ×6 (01:00→21:00)
[2017-02-17 02:00] VITALS: BP 134/56; RESP 1
[2017-02-17] MEDS: ACCU-CHEK XX SCH (02:50)
[2017-02-17] MEDS: MEROPENEM 1 GM/50ML(PMX) 50 ML IVPB SCH ×2 (06:04→14:33)
[2017-02-17 06:17] LABS: BASOPHIL # 0.1 10^3/ul (0.0-0.1); BASOPHILS % 0.8 % (0.0-2.0); EOSINOPHILS # 0.7 10^3/ul (0.0-0.5); EOSINOPHILS % 4.6 % (0.0-7.0); HEMATOCRIT 30.4 % (37.0-47.0); HEMOGLOBIN 9.7 g/dl (12.0-16.0); LYMPHOCYTES # 4.1 10^3/ul (0.8-2.9); MEAN CORPUSCULAR HEMOGLOBIN 28.5 pg (29.0-33.0); MEAN CORPUSCULAR HGB CONC 31.9 g/dl (32.0-37.0); MEAN CORPUSCULAR VOLUME 89.4 fl (82.0-101.0); MEAN PLATELET VOLUME 9.5 fl (7.4-10.4); MONOCYTE # 1.5 10^3/ul (0.3-0.9); MONOCYTES % 10.1 % (0.0-11.0); NEUTROPHIL # 8.1 10^3/ul (1.6-7.5); NEUTROPHILS % 55.4 % (39.0-77.0); PLATELET COUNT 329 10^3/UL (140-415); RED CELL DISTRIBUTION WIDTH 18.3 % (11.5-14.5); WHITE BLOOD COUNT 14.7 10^3/ul (4.8-10.8)
[2017-02-17 06:49] LABS: CALCIUM 8.8 mg/dl (8.4-10.2); CREATININE 0.81 mg/dl (0.44-1.00); POTASSIUM 5.2 mmol/L (3.5-5.1)
--- NOTE | 2017-02-17 07:58 | CONS ---
Date/Time of Note Date/Time of Note DATE: 02/17/17 TIME: 07:55 Assessment/Plan Assessment/Plan Chief Complaint/Hosp Course 1) progressive sacral ulcer, surrounding cellulitis await surgical input and debridement, consider MRI depending upon surgical eval wound cx to be obtained continue with vanco/merrem check ESR, CRP in a.m. 01/17 - proteus and another GNR in wound cx continue with merrem/vanco esr and CRP are moderately elevated mrsa to nares to start bactroban await surgical input pt is more awake today and able to answer some questions in egyptian 01/18 - pt persistence of fever and elevated wbc is either due to an undrained abscess or inadequate antibiotics await wound care eval and surgical debridement will order MRI scan if no wound care is delivered by tomorrow wound cx has proteus, GNR and enterococcus continue with vanco/merrem at present 01/19 - wound cx are all sensitive to current antibiotics of vanco/merrem MRI of pelvis/abd was done but results not available pt to get debridement later this am. 01/20 - s/p debridement, some bone was shaved, MRI did not show osteo await path report continue with vanco/merrem fevers and WBC improved post debridement pt will need good nutrition to heal this wound, consider g-tube if pt not eating well 01/22 - pt to get g-tube for better nutrition continue with vanco/merrem thru 02/01/17 consider doxy for 2 weeks after that path specimen did not identify bone to examine for osteo 01/25 - WBC improved today and ESR was down from 78 to 65 no new issues continue with vanco/merrrem at present thru 02/01 then po doxy for 2 weeks 01/26 - re-culture the site continue vanco/merrem 01/27 - vac pump is applied re-cx of site has GNR so far 01/28 - acinetobacter now present and addendum to path shows osteomyelitis continue with merrem change vanco to minocycline send out for sensi's for colistin, avycaz, minocycline and tigecycline 01/29 - 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 01/30 - esr was a bit better continue with tigecycline/merrem, no need for diverting colostomy at this time as stool does not appear to be contaminating the sacral wound await final send out sensi's on the acinetobacter wbc is up but tigecycline can cause elevation of wbc 02/01 - spoke to surgeon who said wound is improved, but there is farooq exposure still awaitin sensi's on the acinetobacter wbc is slowly coming down but tigecycline can cause an increase in WBC continue merrem/tigecycline 02/04 - spoke to lab and expanded sensi's to the acinetobacter should be back by tomorrow maintain merrem/tigecycline at present 02/05 focus lab system is down and it has delayed the expanded sensi's for acinetobacter maintain merrem/tigecycline for now 02/08 - Acinetobacter is resistant to colisitin, intermediate to minocycline ( PROMISE of 8) and Tigecycline PROMISE is 2 (no interpretation available but likely sensitive) continue with merrem/tigecycline thru 03/12, monitor ESR on a weekly basis wound appears to be improving and ESR has come down will add bactrim temporarily to see if it will improve her leukocytosis one of the possible side effects of tigecycline is leukocytosis though 02/10 - no change with WBC or creatinine since addition of bactrim sacral wound measurements are slowly decreasing continue with merrem/tigecycline/bactrim if creatinine remains stable and wound continues to improve will continue with this regimen 02/12 - pt tolerating current regimen of merrem/tigecycline/bactrim CT abd/pelv planned in the next few days check CBC, BMP, ESR, CRP on thursday 02/15 - labs are about the same, mid teens for WBC, ESR varies continue present regimen of merrem/tigecycline/bactrim thru 03/12 re-cx sacral wound pictures do not show a change in sacral wound in the last week 02/17 - pictures of sacral wound from yesterday are improved, dimension is smaller but slough was present ok to d/c to SNF from ID perspective on merrem/tigecycline/bactrim thru 03/12 2) L heal ulcer with eschar no surrounding redness noted on picture 3) PVD 4) recent hx of LUE DVT 5) HTN 6) leukocytosis 01/26 - get u/a and urine cx, c.dif was sent off re-culture the sacral wound site doubt a pulmonary issue 01/27 - c.dif was neg WBC has improved without change in antibiotics urine cx is NGTD (prior one was only yeast) wound cx has GNR only so far continue present management 01/28 - wound cx is now growing highly resistant acinetobacter will adjust antibiotics and await send out sensi's to verify the best regimen for pt 01/29 - wound cx also grew VRE now on merrem/tigecycline 01/30 - await final sensi' results for acinetobacter tigecycline can cause increase in the WBC 02/04 - improving, but slight fever and increase in WBC today, to continue to monitor will re-check u/a and urine cx and consider CXR 02/05 - u/a shows no pyuria, yeast in urine is not significant and does not need treatment c.dif was negative fevers and wbc improved tigecycline can cause some leukocytosis so WBC may not return to normal while on it 02/08 - will add bactrim to see if leukocytosis is due to infection no other infection appreciated other than sacral osteo, yeast in urine is a colonizer if no change with WBC after on bactrim for a week will d/c it continue merrem/tigecycline thruy 03/12, monitor ESR weekly 02/10 - no change 02/12 minimal improvement, continue to monitor no sign of new infection Problems: Consultation Date/Type/Reason Admit Date/Time Jan 15, 2017 at 14:33 Initial Consult Date 01/16/17 Type of Consultation: ID Referring Provider: RIDGE MATTHEWS MD 24 HR Interval Summary Free Text/Dictation spoke to nurse no new events Exam/Review of Systems Vital Signs Vitals Vital Signs Date Time Temp Pulse Resp B/P Pulse Ox O2 Delivery O2 Flow Rate FiO2 02/17/17 05:33 2.0 02/17/17 02:00 98.9 79 1 134/56 98 02/16/17 23:50 Nasal Cannula Intake and Output 02/16/17 02/16/17 02/17/17 15:00 23:00 07:00 Intake Total 150 ml 1226 ml 100 ml Output Total 600 ml 800 ml Balance 150 ml 626 ml -700 ml Exam Constitutional: alert Head: normocephalic Eyes: nl sclera Respiratory: clear to auscultation Cardiovascular: regular rate and rhythm Gastrointestinal: non-tender, soft Results Result Diagram: 02/17/17 0557 02/17/17 0557 Results 24 hrs Laboratory Tests Test 02/16/17 08:54 02/16/17 13:49 02/16/17 18:07 02/16/17 20:34 Bedside Glucose 115 103 141 149 Test 02/17/17 01:30 02/17/17 05:02 02/17/17 05:11 02/17/17 05:55 Bedside Glucose 141 181 156 155 Test 02/17/17 05:57 White Blood Count 14.7 H Red Blood Count 3.40 L Hemoglobin 9.7 L Hematocrit 30.4 L Mean Corpuscular Volume 89.4 Mean Corpuscular Hemoglobin 28.5 L Mean Corpuscular Hemoglobin Concent 31.9 L Red Cell Distribution Width 18.3 H Platelet Count 329 Mean Platelet Volume 9.5 Neutrophils % 55.4 Lymphocytes % 28.0 Monocytes % 10.1 Eosinophils % 4.6 Basophils % 0.8 Nucleated Red Blood Cells % 0.0 Neutrophils # 8.1 H Lymphocytes # 4.1 H Monocytes # 1.5 H Eosinophils # 0.7 H Basophils # 0.1 Nucleated Red Blood Cells # 0.0 Sodium Level 135 Potassium Level 5.2 H Chloride Level 103 Carbon Dioxide Level 30 Anion Gap 7 L Blood Urea Nitrogen 44 H Creatinine 0.81 Glucose Level 155 Calcium Level 8.8 Medications Medications Current Medications Ondansetron HCl (Zofran Inj) 4 mg Q6H PRN IV NAUSEA AND/OR VOMITING; Start at 16:30 IV Flush (NS 10 ml) 10 ml PRN PRN IV IV PROTOCOL; Start 01/15/17 at 18:30 Miscellaneous Information 1 ea NOTE XX ; Start 01/15/17 at 19:00 Glucose (Glutose) 15 gm Q15M PRN PO DECREASED GLUCOSE; Start 01/15/17 at 19:00 Glucose (Glutose) 22.5 gm Q15M PRN PO DECREASED GLUCOSE; Start 01/15/17 at 19: 00 Dextrose (D50w Syringe) 25 ml Q15M PRN IV DECREASED GLUCOSE Last administered on 01/21/17t 20:37; Admin Dose 25 ML; Start 01/15/17 at 19:00 Dextrose (D50w Syringe) 50 ml Q15M PRN IV DECREASED GLUCOSE; Start 01/15/17 at 19:00 Glucagon (Glucagen) 1 mg Q15M PRN IM DECREASED GLUCOSE; Start 01/15/17 at 19:00 Glucose (Glutose) 15 gm Q15M PRN BUCCAL DECREASED GLUCOSE Last administered on 01/21/17 19:53; Admin Dose 15 GM; Start 01/15/17 at 19:00 Diagnostic Test (Pha) (Accu-Chek) 1 ea 02 XX Last administered on 02/17/17 02: 50; Admin Dose 1 EA; Start 01/16/17 at 02:00 Hydralazine HCl (Apresoline) 10 mg Q6 PRN IV ELEVATED BLOOD PRESSURE Last administered on 01/17/17 03:05; Admin Dose 10 MG; Start 01/17/17 at 03:00 Acetaminophen (Tylenol Supp) 650 mg Q6H PRN [place] FEVER GREATER THAN 100.6 Last administered on 01/17/17 07:26; Admin Dose 650 MG; Start 01/17/17 at 07:00 Nystatin (Nystatin Powder) 1 applic BID TOP Last administered on 02/16/17 22: 17; Admin Dose 1 APPLIC; Start 01/18/17 at 21:00 Bisacodyl (Dulcolax Supp) 10 mg BID PRN [place] CONSTIPATION; Start 01/19/17 at 12: 00 Sodium Biphosphate/ Sodium Phosphate 133 ml 133 ml BID PRN [place] CONSTIPATION; Start 01/19/17 at 12:00 Meropenem/Sodium Chloride (Merrem 1 Gm/50 ml (Pmx)) 50 ml @ 100 mls/hr Q8 IVPB Last administered on 02/17/17 06:04; Admin Dose 100 MLS/HR; Start 01/19/17 at 15:00 Zolpidem Tartrate (Ambien) 10 mg HS PRN PO INSOMNIA Last administered on 21:15; Admin Dose 10 MG; Start 01/21/17 at 13:30 IV Flush (NS 10 ml) 10 ml PRN PRN IV IV PROTOCOL; Start 01/21/17 at 19:00 Insulin Human NPH (Humulin N) 10 unit BID@08,20 SC Last administered on 20:40; Admin Dose 10 UNIT; Start 01/22/17 at 08:00 Ascorbic Acid (Vitamin C) 500 mg BID GTB Last administered on 02/16/17 20:37; Admin Dose 500 MG; Start 01/23/17 at 21:00 Insulin Aspart (Novolog Insulin Pen) NOVOLOG *MODERATE* ALGORITHM Q4 SC Last administered on 02/16/17 18:15; Admin Dose 2 UNIT; Start 01/27/17 at 17:00 Neomycin/ Polymyxin/ Bacitracin (Neosporin Topical Oint) 1 applic BID TOP Last administered on 02/16/17 22:17; Admin Dose 1 APPLIC; Start 01/28/17 at 09:00 Hydrogen Peroxide 1 applic 1 applic BID TOP Last administered on 02/16/17 22: 17; Admin Dose 1 APPLIC; Start 01/28/17 at 09:00 Tigecycline/ Sodium Chloride (Tygacil/NS) 100 ml @ 200 mls/hr Q12 IVPB Last administered on 02/16/17 20:35; Admin Dose 200 MLS/HR; Start 01/29/17 at 21:00 Acetaminophen (Tylenol Tab) 650 mg Q6H PRN GTB PAIN LEVEL 1-3 OR FEVER Last administered on 02/05/17 21:03; Admin Dose 650 MG; Start 02/04/17 at 10:58 Apixaban (Eliquis) 5 mg BID GTB Last administered on 02/16/17 09:01; Admin Dose 5 MG; Start 02/04/17 at 10:59; Status Future Hold Calcium Carbonate (Tums) 500 mg BID GTB Last administered on 02/16/17 20:37; Admin Dose 500 MG; Start 02/04/17 at 11:00 Clonidine (Catapres) 0.1 mg Q6H PRN GTB BLOOD PRESSURE SBP>160; Start 02/04/17 at 11:01 Docusate Sodium (Colace Liquid Cup) 100 mg BID PRN GTB CONSTIPATION; Start at 11:30 Famotidine (Pepcid) 20 mg DAILY GTB Last administered on 02/16/17 09:02; Admin Dose 20 MG; Start 02/04/17 at 11:03 Ferrous Sulfate (Feosol Liquid Cup) 225 mg DAILY GTB Last administered on 09:01; Admin Dose 225 MG; Start 02/04/17 at 11:30 Montelukast Sodium (Singulair) 10 mg QHS GTB Last administered on 02/16/17 20: 36; Admin Dose 10 MG; Start 02/04/17 at 11:12 Guaifenesin (Robitussin Liquid Cup) 200 mg Q4H PRN GTB COUGH Last administered on 02/10/17 06:12; Admin Dose 200 MG; Start 02/08/17 at 23:30 Methadone HCl (Methadone) 10 mg HS PRN GTB pain Last administered on 02/16/17 22:16; Admin Dose 10 MG; Start 02/11/17 at 21:00 Acetaminophen/ Hydrocodone Bitart ([place] (5/325)) 0.5 tab Q8 PRN GTB pain Last administered on 02/16/17 20:36; Admin Dose 0.5 TAB; Start 02/11/17 at 15:00 Amlodipine Besylate (Norvasc) 5 mg DAILY PO Last administered on 02/16/17 09: 02; Admin Dose 5 MG; Start 02/14/17 at 09:00 Collagenase (Santyl) 1 applic DAILY TOP Last administered on 02/16/17 09:06; Admin Dose 1 APPLIC; Start 02/13/17 at 14:00 ANTHONY WOODARD MD Feb 17, 2017 07:58
[2017-02-17 08:00] VITALS: BP 138/76; RESP 20
[2017-02-17] MEDS: CALCIUM CARBONATE 500 MG CHEW TAB GTB SCH ×2 (09:33→20:49)
[2017-02-17] MEDS: TIGECYCLINE 50 MG in SOD CHLORIDE 0.9% 100 ML IVPB SCH ×2 (09:33→20:50)
[2017-02-17] MEDS: ASCORBIC ACID 500 MG TAB GTB SCH ×2 (09:33→20:49)
[2017-02-17] MEDS: FAMOTIDINE 20 MG TAB GTB SCH (09:33)
[2017-02-17] MEDS: FERROUS SULFATE 60 MG/ML 5ML CUP GTB SCH (09:33)
[2017-02-17] MEDS: AMLODIPINE 5 MG TAB PO SCH (09:34)
[2017-02-17] MEDS: NPH, HUMAN INSULIN ISOPHANE 3ML VIAL SC SCH ×2 (09:39→20:48)
[2017-02-17] MEDS: COLLAGENASE 30 GM TUBE TOP SCH (09:54)
[2017-02-17] MEDS: HYDROGEN PEROXIDE 118 ML TOP SCH ×2 (13:10→20:51)
[2017-02-17] MEDS: NYSTATIN 30 GM POWDER BTL TOP SCH ×2 (13:10→20:51)
[2017-02-17] MEDS: NEOMYC/POLYMYX/BACIT 30 GM OINT TOP SCH ×2 (13:10→20:53)
--- NOTE | 2017-02-17 13:42 | PN ---
Date/Time of Note Date/Time of Note DATE: 02/17/17 TIME: 13:35 Assessment/Plan VTE Prophylaxis VTE Prophylaxis Intervention: other Lines/Catheters IV Catheter Type (from Nrsg): PICC Line Central line still needed: Yes Urinary Cath still in place: Yes Reason Cath still needed: skin wounds contaminated by urine Assessment/Plan Chief Complaint/Hosp Course more awake 02/15 mild abd pain. . Problems: Assessment/Plan 02/17 - pictures of sacral wound from yesterday are improved, dimension is smaller but slough was present ok to d/c to SNF from ID perspective on merrem/tigecycline/bactrim thru 03/12 02/17 awake and anwers questions. more alert today. no c/o. 02/11arousible today. not given meth this am. prn norco. better resp sounds. 02/10 off am methadone, now note lung congestion with inspir. arousible. k mild elevated 5.3 02/09on lower dose of methadone 10 am and still sedated. wound reported mild improvement 02/07 wbc going back up and the hgb going down 02/08 wbc still going up. pt sedated. nurse and family says always sedated. --hgb 7.9 transfused 1u prbc on high K- K high over the weekend and required kayex. losartan was d/c'd. cont to watch K sacral stage IV decub, growing proteus and ecoli and s.aureus. on merrem/vanco , being treated by ID. 02/19 debrided and eval for osteo. called ortho- they report that nothing for them to do regarding fx or osteo of sacrum. wbc improving. -path report +osteo. ortho called and will not treat. - vre grew. now on tigecycline/merrem. -if wound does not improve, ID is recommending diverting colostomy.---wound is mildly better. multi bugs growing. ID deciding if any changes of med. wbc has cont to improve. -currently afebrile. -----ID reports 02/08 - Acinetobacter is resistant to colisitin, intermediate to minocycline (PROMISE of 8) and Tigecycline PROMISE is 2 (no interpretation available but likely sensitive) continue with merrem/tigecycline thru 03/12, monitor ESR on a weekly basis wound appears to be improving and ESR has come down will add bactrim temporarily to see if it will improve her leukocytosis one of the possible side effects of tigecycline is leukocytosis left pneumonia. resolved. hhn prn. poor appetite- gtube in place. pt is allowed p.o. intake with aspiration precautions. not oral eating much since sedated. if pt is able to eat on own may stop gtube. mentation -pain controlled with methadone. better on methadone in evening. and 1/2 norco q 8 inthe day prn. 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 off losartan dmII since gtube feeding, adjusting the insulin. doing well accu check stable. paroxysmal afib on last admission- occurred during sepsis and intubation. d/c' d eliquis due to anemia. no signs of recent afib. h/o left dvt of UE. will hold eliquis due to cont to anemic. left dvt is old and stable. d/c to snf pt to cont abx via ID rec. Exam/Review of Systems Vital Signs Vitals Vital Signs Date Time Temp Pulse Resp B/P Pulse Ox O2 Delivery O2 Flow Rate FiO2 02/17/17 08:18 2.0 02/17/17 08:00 98.6 88 20 138/76 96 02/16/17 23:50 Nasal Cannula Intake and Output 02/16/17 02/16/17 02/17/17 15:00 23:00 07:00 Intake Total 150 ml 1226 ml 100 ml Output Total 600 ml 800 ml Balance 150 ml 626 ml -700 ml Results Result Diagram: 02/17/17 0557 02/17/17 0557 Results 24 hrs Laboratory Tests Test 02/16/17 13:49 02/16/17 18:07 02/16/17 20:34 02/17/17 01:30 Bedside Glucose 103 141 149 141 Test 02/17/17 05:02 02/17/17 05:11 02/17/17 05:55 02/17/17 05:57 Bedside Glucose 181 156 155 White Blood Count 14.7 H Red Blood Count 3.40 L Hemoglobin 9.7 L Hematocrit 30.4 L Mean Corpuscular Volume 89.4 Mean Corpuscular Hemoglobin 28.5 L Mean Corpuscular Hemoglobin Concent 31.9 L Red Cell Distribution Width 18.3 H Platelet Count 329 Mean Platelet Volume 9.5 Neutrophils % 55.4 Lymphocytes % 28.0 Monocytes % 10.1 Eosinophils % 4.6 Basophils % 0.8 Nucleated Red Blood Cells % 0.0 Neutrophils # 8.1 H Lymphocytes # 4.1 H Monocytes # 1.5 H Eosinophils # 0.7 H Basophils # 0.1 Nucleated Red Blood Cells # 0.0 Sodium Level 135 Potassium Level 5.2 H Chloride Level 103 Carbon Dioxide Level 30 Anion Gap 7 L Blood Urea Nitrogen 44 H Creatinine 0.81 Glucose Level 155 Calcium Level 8.8 Test 02/17/17 09:32 02/17/17 13:02 Bedside Glucose 156 195 Medications Medications Current Medications Ondansetron HCl (Zofran Inj) 4 mg Q6H PRN IV NAUSEA AND/OR VOMITING; Start at 16:30 IV Flush (NS 10 ml) 10 ml PRN PRN IV IV PROTOCOL; Start 01/15/17 at 18:30 Miscellaneous Information 1 ea NOTE XX ; Start 01/15/17 at 19:00 Glucose (Glutose) 15 gm Q15M PRN PO DECREASED GLUCOSE; Start 01/15/17 at 19:00 Glucose (Glutose) 22.5 gm Q15M PRN PO DECREASED GLUCOSE; Start 01/15/17 at 19: 00 Dextrose (D50w Syringe) 25 ml Q15M PRN IV DECREASED GLUCOSE Last administered on 01/21/17 20:37; Admin Dose 25 ML; Start 01/15/17 at 19:00 Dextrose (D50w Syringe) 50 ml Q15M PRN IV DECREASED GLUCOSE; Start 01/15/17 at 19:00 Glucagon (Glucagen) 1 mg Q15M PRN IM DECREASED GLUCOSE; Start 01/15/17 at 19:00 Glucose (Glutose) 15 gm Q15M PRN BUCCAL DECREASED GLUCOSE Last administered on 01/21/17 19:53; Admin Dose 15 GM; Start 01/15/17 at 19:00 Diagnostic Test (Pha) (Accu-Chek) 1 ea 02 XX Last administered on 02/17/17 02: 50; Admin Dose 1 EA; Start 01/16/17 at 02:00 Hydralazine HCl (Apresoline) 10 mg Q6 PRN IV ELEVATED BLOOD PRESSURE Last administered on 01/17/17 03:05; Admin Dose 10 MG; Start 01/17/17 at 03:00 Acetaminophen (Tylenol Supp) 650 mg Q6H PRN [place] FEVER GREATER THAN 100.6 Last administered on 01/17/17 07:26; Admin Dose 650 MG; Start 01/17/17 at 07:00 Nystatin (Nystatin Powder) 1 applic BID TOP Last administered on 02/17/17 13: 10; Admin Dose 1 APPLIC; Start 01/18/17 at 21:00 Bisacodyl (Dulcolax Supp) 10 mg BID PRN [place] CONSTIPATION; Start 01/19/17 at 12: 00 Sodium Biphosphate/ Sodium Phosphate 133 ml 133 ml BID PRN [place] CONSTIPATION; Start 01/19/17 at 12:00 Meropenem/Sodium Chloride (Merrem 1 Gm/50 ml (Pmx)) 50 ml @ 100 mls/hr Q8 IVPB Last administered on 02/17/17 06:04; Admin Dose 100 MLS/HR; Start 01/19/17 at 15:00; Stop 02/17/17 at 14:59 Zolpidem Tartrate (Ambien) 10 mg HS PRN PO INSOMNIA Last administered on 21:15; Admin Dose 10 MG; Start 01/21/17 at 13:30 IV Flush (NS 10 ml) 10 ml PRN PRN IV IV PROTOCOL; Start 01/21/17 at 19:00 Insulin Human NPH (Humulin N) 10 unit BID@08,20 SC Last administered on 09:39; Admin Dose 10 UNIT; Start 01/22/17 at 08:00 Ascorbic Acid (Vitamin C) 500 mg BID GTB Last administered on 02/17/17 09:33; Admin Dose 500 MG; Start 01/23/17 at 21:00 Insulin Aspart (Novolog Insulin Pen) NOVOLOG *MODERATE* ALGORITHM Q4 SC Last administered on 02/17/17 13:07; Admin Dose 4 UNIT; Start 01/27/17 at 17:00 Neomycin/ Polymyxin/ Bacitracin (Neosporin Topical Oint) 1 applic BID TOP Last administered on 02/17/17 13:10; Admin Dose 1 APPLIC; Start 01/28/17 at 09:00 Hydrogen Peroxide 1 applic 1 applic BID TOP Last administered on 02/17/17 13: 10; Admin Dose 1 APPLIC; Start 01/28/17 at 09:00 Tigecycline/ Sodium Chloride (Tygacil/NS) 100 ml @ 200 mls/hr Q12 IVPB Last administered on 02/17/17 09:33; Admin Dose 200 MLS/HR; Start 01/29/17 at 21:00 Acetaminophen (Tylenol Tab) 650 mg Q6H PRN GTB PAIN LEVEL 1-3 OR FEVER Last administered on 02/05/17 21:03; Admin Dose 650 MG; Start 02/04/17 at 10:58 Apixaban (Eliquis) 5 mg BID GTB Last administered on 02/16/17 09:01; Admin Dose 5 MG; Start 02/04/17 at 10:59; Status Future Hold Calcium Carbonate (Tums) 500 mg BID GTB Last administered on 02/17/17 09:33; Admin Dose 500 MG; Start 02/04/17 at 11:00 Clonidine (Catapres) 0.1 mg Q6H PRN GTB BLOOD PRESSURE SBP>160; Start 02/04/17 at 11:01 Docusate Sodium (Colace Liquid Cup) 100 mg BID PRN GTB CONSTIPATION; Start at 11:30 Famotidine (Pepcid) 20 mg DAILY GTB Last administered on 02/17/17 09:33; Admin Dose 20 MG; Start 02/04/17 at 11:03 Ferrous Sulfate (Feosol Liquid Cup) 225 mg DAILY GTB Last administered on 09:33; Admin Dose 225 MG; Start 02/04/17 at 11:30 Montelukast Sodium (Singulair) 10 mg QHS GTB Last administered on 02/16/17 20: 36; Admin Dose 10 MG; Start 02/04/17 at 11:12 Guaifenesin (Robitussin Liquid Cup) 200 mg Q4H PRN GTB COUGH Last administered on 02/10/17 06:12; Admin Dose 200 MG; Start 02/08/17 at 23:30 Methadone HCl (Methadone) 10 mg HS PRN GTB pain Last administered on 02/16/17 22:16; Admin Dose 10 MG; Start 02/11/17 at 21:00 Acetaminophen/ Hydrocodone Bitart ([place] (5/325)) 0.5 tab Q8 PRN GTB pain Last administered on 02/16/17 20:36; Admin Dose 0.5 TAB; Start 02/11/17 at 15:00 Amlodipine Besylate (Norvasc) 5 mg DAILY PO Last administered on 02/17/17 09: 34; Admin Dose 5 MG; Start 02/14/17 at 09:00 Collagenase 1 applic 1 applic DAILY TOP Last administered on 02/17/17 09:54; Admin Dose 1 APPLIC; Start 02/13/17 at 14:00 Meropenem/Sodium Chloride (Merrem 1 Gm/50 ml (Pmx)) 50 ml @ 100 mls/hr Q8 IVPB ; Start 02/17/17 at 22:00 RIDGE MATTHEWS MD Feb 17, 2017 13:42
[2017-02-17] MEDS ORDERED: AMLO-145 PO (13:54)
[2017-02-17] MEDS ORDERED: HYDR-3498 GTB (13:54)
[2017-02-17] MEDS ORDERED: SAN30GM TOP (13:54)
[2017-02-17] MEDS ORDERED: METH10TA2 GTB (13:54)
[2017-02-17] MEDS ORDERED: NEOM28OI TOP (13:54)
[2017-02-17] MEDS ORDERED: UDFER GTB (13:54)
[2017-02-17] MEDS ORDERED: ZOLP5TAB PO (13:54)
[2017-02-17] MEDS ORDERED: ASC500 GTB (13:54)
[2017-02-17] MEDS ORDERED: NYST15PO4 TOP (13:54)
[2017-02-17] MEDS ORDERED: ALBU2.5V3 HHN (13:54)
[2017-02-17 14:00] VITALS: BP 133/58; RESP 18
--- NOTE | 2017-02-17 15:09 | CONS ---
Date/Time of Note Date/Time of Note DATE: 02/17/17 TIME: 15:08 Assessment/Plan Assessment/Plan Additional Assessment/Plan Sacral decubiti DVT of left upper extremity History of paroxysmal atrial fibrillation Preserved ejection fraction Peripheral arterial disease -BP trend overall stable. Continue anticoagulation as able to tolerate. Consultation Date/Type/Reason Admit Date/Time Jan 15, 2017 at 14:33 Initial Consult Date 01/19/17 Type of Consultation: cv Referring Provider: RIDGE MATTHEWS MD 24 HR Interval Summary Free Text/Dictation Patient seen and examined Exam/Review of Systems Vital Signs Vitals Vital Signs Date Time Temp Pulse Resp B/P Pulse Ox O2 Delivery O2 Flow Rate FiO2 02/17/17 13:48 Nasal Cannula 2.0 02/17/17 08:00 98.6 88 20 138/76 96 Intake and Output 02/16/17 02/16/17 02/17/17 14:59 22:59 06:59 Intake Total 100 ml 1276 ml 100 ml Output Total 600 ml 800 ml Balance 100 ml 676 ml -700 ml Exam Sleeping but arousable, no apparent distress Head: normocephalic Respiratory: other (Coarse breath sounds bilaterally, no wheezing) Cardiovascular: other (S1-S2 heard), regular rate and rhythm Gastrointestinal: bowel sounds, non-tender, soft Extremities: edema Results Result Diagram: 02/17/17 0557 02/17/17 0557 Results 24 hrs Laboratory Tests Test 02/16/17 18:07 02/16/17 20:34 02/17/17 01:30 02/17/17 05:02 Bedside Glucose 141 149 141 181 Test 02/17/17 05:11 02/17/17 05:55 02/17/17 05:57 02/17/17 09:32 Bedside Glucose 156 155 156 White Blood Count 14.7 H Red Blood Count 3.40 L Hemoglobin 9.7 L Hematocrit 30.4 L Mean Corpuscular Volume 89.4 Mean Corpuscular Hemoglobin 28.5 L Mean Corpuscular Hemoglobin Concent 31.9 L Red Cell Distribution Width 18.3 H Platelet Count 329 Mean Platelet Volume 9.5 Neutrophils % 55.4 Lymphocytes % 28.0 Monocytes % 10.1 Eosinophils % 4.6 Basophils % 0.8 Nucleated Red Blood Cells % 0.0 Neutrophils # 8.1 H Lymphocytes # 4.1 H Monocytes # 1.5 H Eosinophils # 0.7 H Basophils # 0.1 Nucleated Red Blood Cells # 0.0 Sodium Level 135 Potassium Level 5.2 H Chloride Level 103 Carbon Dioxide Level 30 Anion Gap 7 L Blood Urea Nitrogen 44 H Creatinine 0.81 Glucose Level 155 Calcium Level 8.8 Test 02/17/17 13:02 Bedside Glucose 195 Medications Medications Current Medications Ondansetron HCl (Zofran Inj) 4 mg Q6H PRN IV NAUSEA AND/OR VOMITING; Start at 16:30 IV Flush (NS 10 ml) 10 ml PRN PRN IV IV PROTOCOL; Start 01/15/17 at 18:30 Miscellaneous Information 1 ea NOTE XX ; Start 01/15/17 at 19:00 Glucose (Glutose) 15 gm Q15M PRN PO DECREASED GLUCOSE; Start 01/15/17 at 19:00 Glucose (Glutose) 22.5 gm Q15M PRN PO DECREASED GLUCOSE; Start 01/15/17 at 19: 00 Dextrose (D50w Syringe) 25 ml Q15M PRN IV DECREASED GLUCOSE Last administered on 01/21/17 20:37; Admin Dose 25 ML; Start 01/15/17 at 19:00 Dextrose (D50w Syringe) 50 ml Q15M PRN IV DECREASED GLUCOSE; Start 01/15/17 at 19:00 Glucagon (Glucagen) 1 mg Q15M PRN IM DECREASED GLUCOSE; Start 01/15/17 at 19:00 Glucose (Glutose) 15 gm Q15M PRN BUCCAL DECREASED GLUCOSE Last administered on 01/21/17 19:53; Admin Dose 15 GM; Start 01/15/17 at 19:00 Diagnostic Test (Pha) (Accu-Chek) 1 ea 02 XX Last administered on 02/17/17 02: 50; Admin Dose 1 EA; Start 01/16/17 at 02:00 Hydralazine HCl (Apresoline) 10 mg Q6 PRN IV ELEVATED BLOOD PRESSURE Last administered on 01/17/17 03:05; Admin Dose 10 MG; Start 01/17/17 at 03:00 Acetaminophen (Tylenol Supp) 650 mg Q6H PRN [place] FEVER GREATER THAN 100.6 Last administered on 01/17/17 07:26; Admin Dose 650 MG; Start 01/17/17 at 07:00 Nystatin (Nystatin Powder) 1 applic BID TOP Last administered on 02/17/17 13: 10; Admin Dose 1 APPLIC; Start 01/18/17 at 21:00 Bisacodyl (Dulcolax Supp) 10 mg BID PRN SC CONSTIPATION; Start 01/19/17 at 12: 00 Sodium Biphosphate/ Sodium Phosphate (Fleet Enema) 133 ml BID PRN SC CONSTIPATION; Start 01/19/17 at 12:00 Zolpidem Tartrate (Ambien) 10 mg HS PRN PO INSOMNIA Last administered on 21:15; Admin Dose 10 MG; Start 01/21/17 at 13:30 IV Flush (NS 10 ml) 10 ml PRN PRN IV IV PROTOCOL; Start 01/21/17 at 19:00 Insulin Human NPH (Humulin N) 10 unit BID@08,20 SC Last administered on 09:39; Admin Dose 10 UNIT; Start 01/22/17 at 08:00 Ascorbic Acid (Vitamin C) 500 mg BID GTB Last administered on 02/17/17 09:33; Admin Dose 500 MG; Start 01/23/17 at 21:00 Insulin Aspart (Novolog Insulin Pen) NOVOLOG *MODERATE* ALGORITHM Q4 SC Last administered on 02/17/17 13:07; Admin Dose 4 UNIT; Start 01/27/17 at 17:00 Neomycin/ Polymyxin/ Bacitracin (Neosporin Topical Oint) 1 applic BID TOP Last administered on 02/17/17 13:10; Admin Dose 1 APPLIC; Start 01/28/17 at 09:00 Hydrogen Peroxide 1 applic 1 applic BID TOP Last administered on 02/17/17 13: 10; Admin Dose 1 APPLIC; Start 01/28/17 at 09:00 Tigecycline/ Sodium Chloride (Tygacil/NS) 100 ml @ 200 mls/hr Q12 IVPB Last administered on 02/17/17 09:33; Admin Dose 200 MLS/HR; Start 01/29/17 at 21:00 Acetaminophen (Tylenol Tab) 650 mg Q6H PRN GTB PAIN LEVEL 1-3 OR FEVER Last administered on 02/05/17 21:03; Admin Dose 650 MG; Start 02/04/17 at 10:58 Calcium Carbonate (Tums) 500 mg BID GTB Last administered on 02/17/17 09:33; Admin Dose 500 MG; Start 02/04/17 at 11:00 Clonidine (Catapres) 0.1 mg Q6H PRN GTB BLOOD PRESSURE SBP>160; Start 02/04/17 at 11:01 Docusate Sodium (Colace Liquid Cup) 100 mg BID PRN GTB CONSTIPATION; Start at 11:30 Famotidine (Pepcid) 20 mg DAILY GTB Last administered on 02/17/17 09:33; Admin Dose 20 MG; Start 02/04/17 at 11:03 Ferrous Sulfate (Feosol Liquid Cup) 225 mg DAILY GTB Last administered on 09:33; Admin Dose 225 MG; Start 02/04/17 at 11:30 Montelukast Sodium (Singulair) 10 mg QHS GTB Last administered on 02/16/17 20: 36; Admin Dose 10 MG; Start 02/04/17 at 11:12 Guaifenesin (Robitussin Liquid Cup) 200 mg Q4H PRN GTB COUGH Last administered on 02/10/17 06:12; Admin Dose 200 MG; Start 02/08/17 at 23:30 Methadone HCl (Methadone) 10 mg HS PRN GTB pain Last administered on 02/16/17 22:16; Admin Dose 10 MG; Start 02/11/17 at 21:00 Acetaminophen/ Hydrocodone Bitart ([place] (5/325)) 0.5 tab Q8 PRN GTB pain Last administered on 02/16/17 20:36; Admin Dose 0.5 TAB; Start 02/11/17 at 15:00 Amlodipine Besylate (Norvasc) 5 mg DAILY PO Last administered on 02/17/17 09: 34; Admin Dose 5 MG; Start 02/14/17 at 09:00 Collagenase 1 applic 1 applic DAILY TOP Last administered on 02/17/17 09:54; Admin Dose 1 APPLIC; Start 02/13/17 at 14:00 Meropenem/Sodium Chloride (Merrem 1 Gm/50 ml (Pmx)) 50 ml @ 100 mls/hr Q8 IVPB ; Start 02/17/17 at 22:00 Tucker Jacome DO Feb 17, 2017 15:09
[2017-02-17 20:38] VITALS: BP 130/62; RESP 18
[2017-02-17] MEDS: MONTELUKAST 10 MG TAB GTB SCH (20:49)
[2017-02-17] MEDS: TRIMETHOPRIM/SULFAMETHOX (DS) TAB GTB SCH (20:49)
[2017-02-17] MEDS ORDERED: MEROPENEM 1 GM/50ML(PMX) 50 ML IVPB SCH (22:00)
[2017-02-18] MEDS: INSULIN ASPART [NOVOLOG] 3 ML PEN SC SCH ×6 (01:00→21:00)
[2017-02-18] MEDS: ACCU-CHEK XX SCH (02:00)
[2017-02-18] MEDS: HYDROCODONE/APAP (5/325) TAB GTB PRN ×2 (02:59→15:17)
[2017-02-18 03:04] VITALS: BP 126/61; RESP 18
--- NOTE | 2017-02-18 07:48 | CONS ---
Date/Time of Note Date/Time of Note DATE: 02/18/17 TIME: 07:45 Assessment/Plan Assessment/Plan Chief Complaint/Hosp Course 1) progressive sacral ulcer, surrounding cellulitis await surgical input and debridement, consider MRI depending upon surgical eval wound cx to be obtained continue with vanco/merrem check ESR, CRP in a.m. 01/17 - proteus and another GNR in wound cx continue with merrem/vanco esr and CRP are moderately elevated mrsa to nares to start bactroban await surgical input pt is more awake today and able to answer some questions in j[place]ican 01/18 - pt persistence of fever and elevated wbc is either due to an undrained abscess or inadequate antibiotics await wound care eval and surgical debridement will order MRI scan if no wound care is delivered by tomorrow wound cx has proteus, GNR and enterococcus continue with vanco/merrem at present 01/19 - wound cx are all sensitive to current antibiotics of vanco/merrem MRI of pelvis/abd was done but results not available pt to get debridement later this am. 01/20 - s/p debridement, some bone was shaved, MRI did not show osteo await path report continue with vanco/merrem fevers and WBC improved post debridement pt will need good nutrition to heal this wound, consider g-tube if pt not eating well 01/22 - pt to get g-tube for better nutrition continue with vanco/merrem thru 02/01/17 consider doxy for 2 weeks after that path specimen did not identify bone to examine for osteo 01/25 - WBC improved today and ESR was down from 78 to 65 no new issues continue with vanco/merrrem at present thru 02/01 then po doxy for 2 weeks 01/26 - re-culture the site continue vanco/merrem 01/27 - vac pump is applied re-cx of site has GNR so far 01/28 - acinetobacter now present and addendum to path shows osteomyelitis continue with merrem change vanco to minocycline send out for sensi's for colistin, avycaz, minocycline and tigecycline 01/29 - 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 01/30 - esr was a bit better continue with tigecycline/merrem, no need for diverting colostomy at this time as stool does not appear to be contaminating the sacral wound await final send out sensi's on the acinetobacter wbc is up but tigecycline can cause elevation of wbc 02/01 - spoke to surgeon who said wound is improved, but there is farooq exposure still awaitin sensi's on the acinetobacter wbc is slowly coming down but tigecycline can cause an increase in WBC continue merrem/tigecycline 02/04 - spoke to lab and expanded sensi's to the acinetobacter should be back by tomorrow maintain merrem/tigecycline at present 02/05 focus lab system is down and it has delayed the expanded sensi's for acinetobacter maintain merrem/tigecycline for now 02/08 - Acinetobacter is resistant to colisitin, intermediate to minocycline ( PROMISE of 8) and Tigecycline PROMISE is 2 (no interpretation available but likely sensitive) continue with merrem/tigecycline thru 03/12, monitor ESR on a weekly basis wound appears to be improving and ESR has come down will add bactrim temporarily to see if it will improve her leukocytosis one of the possible side effects of tigecycline is leukocytosis though 02/10 - no change with WBC or creatinine since addition of bactrim sacral wound measurements are slowly decreasing continue with merrem/tigecycline/bactrim if creatinine remains stable and wound continues to improve will continue with this regimen 02/12 - pt tolerating current regimen of merrem/tigecycline/bactrim CT abd/pelv planned in the next few days check CBC, BMP, ESR, CRP on thursday 02/15 - labs are about the same, mid teens for WBC, ESR varies continue present regimen of merrem/tigecycline/bactrim thru 03/12 re-cx sacral wound pictures do not show a change in sacral wound in the last week 02/17 - pictures of sacral wound from yesterday are improved, dimension is smaller but slough was present ok to d/c to SNF from ID perspective on merrem/tigecycline/bactrim thru 03/12 02/18 - home iv therapy has been written have increased the oral dose of bactrim and will d/c merrem continue bactrim/tigecycline thru 03/12 weekly esr, crp twice weekly cbc, bmp 2) L heal ulcer with eschar no surrounding redness noted on picture 3) PVD 4) recent hx of LUE DVT 5) HTN 6) leukocytosis 01/26 - get u/a and urine cx, c.dif was sent off re-culture the sacral wound site doubt a pulmonary issue 01/27 - c.dif was neg WBC has improved without change in antibiotics urine cx is NGTD (prior one was only yeast) wound cx has GNR only so far continue present management 01/28 - wound cx is now growing highly resistant acinetobacter will adjust antibiotics and await send out sensi's to verify the best regimen for pt 01/29 - wound cx also grew VRE now on merrem/tigecycline 01/30 - await final sensi' results for acinetobacter tigecycline can cause increase in the WBC 02/04 - improving, but slight fever and increase in WBC today, to continue to monitor will re-check u/a and urine cx and consider CXR 02/05 - u/a shows no pyuria, yeast in urine is not significant and does not need treatment c.dif was negative fevers and wbc improved tigecycline can cause some leukocytosis so WBC may not return to normal while on it 02/08 - will add bactrim to see if leukocytosis is due to infection no other infection appreciated other than sacral osteo, yeast in urine is a colonizer if no change with WBC after on bactrim for a week will d/c it continue merrem/tigecycline thruy 03/12, monitor ESR weekly 02/10 - no change 02/12 minimal improvement, continue to monitor no sign of new infection Problems: Consultation Date/Type/Reason Admit Date/Time Jan 15, 2017 at 14:33 Initial Consult Date 01/16/17 Type of Consultation: ID Referring Provider: RIDGE MATTHEWS MD Exam/Review of Systems Vital Signs Vitals Vital Signs Date Time Temp Pulse Resp B/P Pulse Ox O2 Delivery O2 Flow Rate FiO2 02/18/17 03:04 98.5 75 18 126/61 100 02/18/17 02:51 2.0 02/17/17 20:00 Nasal Cannula Intake and Output 02/17/17 02/17/17 02/18/17 15:00 23:00 07:00 Intake Total 150 ml 1020 ml 920 ml Output Total 1200 ml 1150 ml Balance 150 ml -180 ml -230 ml Results Result Diagram: 02/17/17 0557 02/17/17 0557 Results 24 hrs Laboratory Tests Test 02/17/17 09:32 02/17/17 13:02 02/17/17 18:14 02/17/17 20:44 Bedside Glucose 156 195 201 153 Test 02/18/17 01:14 02/18/17 05:13 Bedside Glucose 143 198 Medications Medications Current Medications Ondansetron HCl (Zofran Inj) 4 mg Q6H PRN IV NAUSEA AND/OR VOMITING; Start at 16:30 IV Flush (NS 10 ml) 10 ml PRN PRN IV IV PROTOCOL; Start 01/15/17 at 18:30 Miscellaneous Information 1 ea NOTE XX ; Start 01/15/17 at 19:00 Glucose (Glutose) 15 gm Q15M PRN PO DECREASED GLUCOSE; Start 01/15/17 at 19:00 Glucose (Glutose) 22.5 gm Q15M PRN PO DECREASED GLUCOSE; Start 01/15/17 at 19: 00 Dextrose (D50w Syringe) 25 ml Q15M PRN IV DECREASED GLUCOSE Last administered on 01/21/17 20:37; Admin Dose 25 ML; Start 01/15/17 at 19:00 Dextrose (D50w Syringe) 50 ml Q15M PRN IV DECREASED GLUCOSE; Start 01/15/17 at 19:00 Glucagon (Glucagen) 1 mg Q15M PRN IM DECREASED GLUCOSE; Start 01/15/17 at 19:00 Glucose (Glutose) 15 gm Q15M PRN BUCCAL DECREASED GLUCOSE Last administered on 01/21/17 19:53; Admin Dose 15 GM; Start 01/15/17 at 19:00 Diagnostic Test (Pha) (Accu-Chek) 1 ea 02 XX Last administered on 02/17/17 02: 50; Admin Dose 1 EA; Start 01/16/17 at 02:00 Hydralazine HCl (Apresoline) 10 mg Q6 PRN IV ELEVATED BLOOD PRESSURE Last administered on 01/17/17 03:05; Admin Dose 10 MG; Start 01/17/17 at 03:00 Acetaminophen (Tylenol Supp) 650 mg Q6H PRN [place] FEVER GREATER THAN 100.6 Last administered on 01/17/17 07:26; Admin Dose 650 MG; Start 01/17/17 at 07:00 Nystatin (Nystatin Powder) 1 applic BID TOP Last administered on 02/17/17 20: 51; Admin Dose 1 APPLIC; Start 01/18/17 at 21:00 Bisacodyl (Dulcolax Supp) 10 mg BID PRN [place] CONSTIPATION; Start 01/19/17 at 12: 00 Sodium Biphosphate/ Sodium Phosphate (Fleet Enema) 133 ml BID PRN [place] CONSTIPATION; Start 01/19/17 at 12:00 Zolpidem Tartrate (Ambien) 10 mg HS PRN PO INSOMNIA Last administered on 21:15; Admin Dose 10 MG; Start 01/21/17 at 13:30 IV Flush (NS 10 ml) 10 ml PRN PRN IV IV PROTOCOL; Start 01/21/17 at 19:00 Insulin Human NPH (Humulin N) 10 unit BID@08,20 SC Last administered on 20:48; Admin Dose 10 UNIT; Start 01/22/17 at 08:00 Ascorbic Acid (Vitamin C) 500 mg BID GTB Last administered on 02/17/17 20:49; Admin Dose 500 MG; Start 01/23/17 at 21:00 Insulin Aspart (Novolog Insulin Pen) NOVOLOG *MODERATE* ALGORITHM Q4 SC Last administered on 02/18/17 05:18; Admin Dose 1 UNIT; Start 01/27/17 at 17:00 Neomycin/ Polymyxin/ Bacitracin (Neosporin Topical Oint) 1 applic BID TOP Last administered on 02/17/17 20:53; Admin Dose 1 APPLIC; Start 01/28/17 at 09:00 Hydrogen Peroxide 1 applic 1 applic BID TOP Last administered on 02/17/17 20: 51; Admin Dose 1 APPLIC; Start 01/28/17 at 09:00 Tigecycline/ Sodium Chloride (Tygacil/NS) 100 ml @ 200 mls/hr Q12 IVPB Last administered on 02/17/17 20:50; Admin Dose 200 MLS/HR; Start 01/29/17 at 21:00 Acetaminophen (Tylenol Tab) 650 mg Q6H PRN GTB PAIN LEVEL 1-3 OR FEVER Last administered on 02/05/17 21:03; Admin Dose 650 MG; Start 02/04/17 at 10:58 Calcium Carbonate (Tums) 500 mg BID GTB Last administered on 02/17/17 20:49; Admin Dose 500 MG; Start 02/04/17 at 11:00 Clonidine (Catapres) 0.1 mg Q6H PRN GTB BLOOD PRESSURE SBP>160; Start 02/04/17 at 11:01 Docusate Sodium (Colace Liquid Cup) 100 mg BID PRN GTB CONSTIPATION; Start at 11:30 Famotidine (Pepcid) 20 mg DAILY GTB Last administered on 02/17/17 09:33; Admin Dose 20 MG; Start 02/04/17 at 11:03 Ferrous Sulfate (Feosol Liquid Cup) 225 mg DAILY GTB Last administered on 09:33; Admin Dose 225 MG; Start 02/04/17 at 11:30 Montelukast Sodium (Singulair) 10 mg QHS GTB Last administered on 02/17/17 20: 49; Admin Dose 10 MG; Start 02/04/17 at 11:12 Guaifenesin (Robitussin Liquid Cup) 200 mg Q4H PRN GTB COUGH Last administered on 02/10/17 06:12; Admin Dose 200 MG; Start 02/08/17 at 23:30 Methadone HCl (Methadone) 10 mg HS PRN GTB pain Last administered on 02/16/17 22:16; Admin Dose 10 MG; Start 02/11/17 at 21:00 Acetaminophen/ Hydrocodone Bitart ([place] (5/325)) 0.5 tab Q8 PRN GTB pain Last administered on 02/18/17 02:59; Admin Dose 0.5 TAB; Start 02/11/17 at 15:00 Amlodipine Besylate (Norvasc) 5 mg DAILY PO Last administered on 02/17/17 09: 34; Admin Dose 5 MG; Start 02/14/17 at 09:00 Collagenase (Santyl) 1 applic DAILY TOP Last administered on 02/17/17 09:54; Admin Dose 1 APPLIC; Start 02/13/17 at 14:00 Trimethoprim/ Sulfamethoxazole (Bactrim (Ds)) 2 tab BID GTB Last administered on 02/17/17t 20:49; Admin Dose 2 TAB; Start 02/17/17 at 21:00 ANTHONY WOODARD MD Feb 18, 2017 07:48
[2017-02-18 08:20] VITALS: BP 140/61; RESP 18
[2017-02-18] MEDS: TRIMETHOPRIM/SULFAMETHOX (DS) TAB GTB SCH ×2 (08:58→20:13)
[2017-02-18] MEDS: FERROUS SULFATE 60 MG/ML 5ML CUP GTB SCH (08:58)
[2017-02-18] MEDS: CALCIUM CARBONATE 500 MG CHEW TAB GTB SCH ×2 (08:58→20:15)
[2017-02-18] MEDS: ASCORBIC ACID 500 MG TAB GTB SCH ×2 (08:58→20:13)
[2017-02-18] MEDS: FAMOTIDINE 20 MG TAB GTB SCH (08:58)
[2017-02-18] MEDS: AMLODIPINE 5 MG TAB PO SCH (09:00)
[2017-02-18] MEDS: TIGECYCLINE 50 MG in SOD CHLORIDE 0.9% 100 ML IVPB SCH ×2 (09:02→20:15)
[2017-02-18] MEDS: NPH, HUMAN INSULIN ISOPHANE 3ML VIAL SC SCH ×2 (09:04→20:15)
[2017-02-18] MEDS: HYDROGEN PEROXIDE 118 ML TOP SCH ×2 (09:10→20:27)
[2017-02-18] MEDS: NYSTATIN 30 GM POWDER BTL TOP SCH ×2 (09:10→20:25)
[2017-02-18] MEDS: COLLAGENASE 30 GM TUBE TOP SCH (09:11)
[2017-02-18] MEDS: NEOMYC/POLYMYX/BACIT 30 GM OINT TOP SCH ×2 (09:12→20:27)
--- NOTE | 2017-02-18 12:56 | PN ---
Date/Time of Note Date/Time of Note DATE: 02/18/17 TIME: 12:53 Assessment/Plan VTE Prophylaxis VTE Prophylaxis Intervention: other Lines/Catheters IV Catheter Type (from Nrsg): PICC Line Central line still needed: Yes Urinary Cath still in place: Yes Reason Cath still needed: skin wounds contaminated by urine Assessment/Plan Chief Complaint/Hosp Course more awake 02/15 mild abd pain. . Problems: Assessment/Plan pt not able to be transf to snf due to bedding and acceptance. now looking into other snf. pt not able to be taken care of at home. -pt very alert this am. -abx changed. off merrem and cont on bactrim and tig. til 03/12 Exam/Review of Systems Vital Signs Vitals Vital Signs Date Time Temp Pulse Resp B/P Pulse Ox O2 Delivery O2 Flow Rate FiO2 02/18/17 08:20 98.2 81 18 140/61 99 02/18/17 02:51 2.0 02/17/17 20:00 Nasal Cannula Intake and Output 02/17/17 02/17/17 02/18/17 15:00 23:00 07:00 Intake Total 150 ml 1020 ml 920 ml Output Total 1200 ml 1150 ml Balance 150 ml -180 ml -230 ml Results Result Diagram: 02/17/17 0557 02/17/17 0557 Results 24 hrs Laboratory Tests Test 02/17/17 13:02 02/17/17 18:14 02/17/17 20:44 02/18/17 01:14 Bedside Glucose 195 201 153 143 Test 02/18/17 05:13 02/18/17 08:54 Bedside Glucose 198 200 Medications Medications Current Medications Ondansetron HCl (Zofran Inj) 4 mg Q6H PRN IV NAUSEA AND/OR VOMITING; Start at 16:30 IV Flush (NS 10 ml) 10 ml PRN PRN IV IV PROTOCOL; Start 01/15/17 at 18:30 Miscellaneous Information 1 ea NOTE XX ; Start 01/15/17 at 19:00 Glucose (Glutose) 15 gm Q15M PRN PO DECREASED GLUCOSE; Start 01/15/17 at 19:00 Glucose (Glutose) 22.5 gm Q15M PRN PO DECREASED GLUCOSE; Start 01/15/17 at 19: 00 Dextrose (D50w Syringe) 25 ml Q15M PRN IV DECREASED GLUCOSE Last administered on 01/21/17 20:37; Admin Dose 25 ML; Start 01/15/17 at 19:00 Dextrose (D50w Syringe) 50 ml Q15M PRN IV DECREASED GLUCOSE; Start 01/15/17 at 19:00 Glucagon (Glucagen) 1 mg Q15M PRN IM DECREASED GLUCOSE; Start 01/15/17 at 19:00 Glucose (Glutose) 15 gm Q15M PRN BUCCAL DECREASED GLUCOSE Last administered on 01/21/17 19:53; Admin Dose 15 GM; Start 01/15/17 at 19:00 Diagnostic Test (Pha) (Accu-Chek) 1 ea 02 XX Last administered on 02/17/17 02: 50; Admin Dose 1 EA; Start 01/16/17 at 02:00 Hydralazine HCl (Apresoline) 10 mg Q6 PRN IV ELEVATED BLOOD PRESSURE Last administered on 01/17/17 03:05; Admin Dose 10 MG; Start 01/17/17 at 03:00 Acetaminophen (Tylenol Supp) 650 mg Q6H PRN [place] FEVER GREATER THAN 100.6 Last administered on 01/17/17 07:26; Admin Dose 650 MG; Start 01/17/17 at 07:00 Nystatin (Nystatin Powder) 1 applic BID TOP Last administered on 02/18/17 09: 10; Admin Dose 1 APPLIC; Start 01/18/17 at 21:00 Bisacodyl (Dulcolax Supp) 10 mg BID PRN [place] CONSTIPATION; Start 01/19/17 at 12: 00 Sodium Biphosphate/ Sodium Phosphate (Fleet Enema) 133 ml BID PRN [place] CONSTIPATION; Start 01/19/17 at 12:00 Zolpidem Tartrate (Ambien) 10 mg HS PRN PO INSOMNIA Last administered on 21:15; Admin Dose 10 MG; Start 01/21/17 at 13:30 IV Flush (NS 10 ml) 10 ml PRN PRN IV IV PROTOCOL; Start 01/21/17 at 19:00 Insulin Human NPH (Humulin N) 10 unit BID@08,20 SC Last administered on 09:04; Admin Dose 10 UNIT; Start 01/22/17 at 08:00 Ascorbic Acid (Vitamin C) 500 mg BID GTB Last administered on 02/18/17 08:58; Admin Dose 500 MG; Start 01/23/17 at 21:00 Insulin Aspart (Novolog Insulin Pen) NOVOLOG *MODERATE* ALGORITHM Q4 SC Last administered on 02/18/17 09:05; Admin Dose 4 UNIT; Start 01/27/17 at 17:00 Neomycin/ Polymyxin/ Bacitracin (Neosporin Topical Oint) 1 applic BID TOP Last administered on 02/18/17 09:12; Admin Dose 1 APPLIC; Start 01/28/17 at 09:00 Hydrogen Peroxide 1 applic 1 applic BID TOP Last administered on 02/18/17 09: 10; Admin Dose 1 APPLIC; Start 01/28/17 at 09:00 Tigecycline/ Sodium Chloride (Tygacil/NS) 100 ml @ 200 mls/hr Q12 IVPB Last administered on 02/18/17 09:02; Admin Dose 200 MLS/HR; Start 01/29/17 at 21:00 Acetaminophen (Tylenol Tab) 650 mg Q6H PRN GTB PAIN LEVEL 1-3 OR FEVER Last administered on 02/05/17 21:03; Admin Dose 650 MG; Start 02/04/17 at 10:58 Calcium Carbonate (Tums) 500 mg BID GTB Last administered on 02/18/17 08:58; Admin Dose 500 MG; Start 02/04/17 at 11:00 Clonidine (Catapres) 0.1 mg Q6H PRN GTB BLOOD PRESSURE SBP>160; Start 02/04/17 at 11:01 Docusate Sodium (Colace Liquid Cup) 100 mg BID PRN GTB CONSTIPATION; Start at 11:30 Famotidine (Pepcid) 20 mg DAILY GTB Last administered on 02/18/17 08:58; Admin Dose 20 MG; Start 02/04/17 at 11:03 Ferrous Sulfate (Feosol Liquid Cup) 225 mg DAILY GTB Last administered on 08:58; Admin Dose 225 MG; Start 02/04/17 at 11:30 Montelukast Sodium (Singulair) 10 mg QHS GTB Last administered on 02/17/17 20: 49; Admin Dose 10 MG; Start 02/04/17 at 11:12 Guaifenesin (Robitussin Liquid Cup) 200 mg Q4H PRN GTB COUGH Last administered on 02/10/17 06:12; Admin Dose 200 MG; Start 02/08/17 at 23:30 Methadone HCl (Methadone) 10 mg HS PRN GTB pain Last administered on 02/16/17 22:16; Admin Dose 10 MG; Start 02/11/17 at 21:00 Acetaminophen/ Hydrocodone Bitart ([place] (5/325)) 0.5 tab Q8 PRN GTB pain Last administered on 02/18/17 02:59; Admin Dose 0.5 TAB; Start 02/11/17 at 15:00 Amlodipine Besylate (Norvasc) 5 mg DAILY PO Last administered on 02/18/17 09: 00; Admin Dose 5 MG; Start 02/14/17 at 09:00 Collagenase (Santyl) 1 applic DAILY TOP Last administered on 02/18/17 09:11; Admin Dose 1 APPLIC; Start 02/13/17 at 14:00 Trimethoprim/ Sulfamethoxazole (Bactrim (Ds)) 2 tab BID GTB Last administered on 02/18/17 08:58; Admin Dose 2 TAB; Start 02/17/17 at 21:00 RIDGE MATTHEWS MD Feb 18, 2017 12:56
[2017-02-18] MEDS ORDERED: EPOETIN ALFA (NESRD) 3,000 UNITS/ML VIAL SC ONE (13:00)
[2017-02-18 15:05] VITALS: BP 136/80; RESP 20
[2017-02-18] MEDS ORDERED: EPOETIN 10000 UNITS/ML (NON ESRD/NON ONCOLOGY) SC SCH (17:00)
[2017-02-18] MEDS: MONTELUKAST 10 MG TAB GTB SCH (20:14)
[2017-02-18] MEDS: METHADONE 10 MG TAB GTB PRN (20:42)
[2017-02-18 21:16] VITALS: BP 116/59; RESP 20
[2017-02-18] MEDS: ZOLPIDEM 5 MG TAB PO PRN (22:16)
[2017-02-19] MEDS: INSULIN ASPART [NOVOLOG] 3 ML PEN SC SCH ×5 (01:00→17:00)
[2017-02-19 02:00] VITALS: BP 127/81; RESP 18
[2017-02-19] MEDS: ACCU-CHEK XX SCH (02:00)
[2017-02-19 08:30] VITALS: BP 130/64; RESP 18
[2017-02-19] MEDS: NPH, HUMAN INSULIN ISOPHANE 3ML VIAL SC SCH (09:33)
[2017-02-19] MEDS: CALCIUM CARBONATE 500 MG CHEW TAB GTB SCH (09:34)
[2017-02-19] MEDS: ASCORBIC ACID 500 MG TAB GTB SCH (09:34)
[2017-02-19] MEDS: AMLODIPINE 5 MG TAB PO SCH (09:34)
[2017-02-19] MEDS: TRIMETHOPRIM/SULFAMETHOX (DS) TAB GTB SCH (09:34)
[2017-02-19] MEDS: FAMOTIDINE 20 MG TAB GTB SCH (09:34)
[2017-02-19] MEDS: FERROUS SULFATE 60 MG/ML 5ML CUP GTB SCH (09:35)
[2017-02-19] MEDS: TIGECYCLINE 50 MG in SOD CHLORIDE 0.9% 100 ML IVPB SCH (09:36)
[2017-02-19] MEDS: NEOMYC/POLYMYX/BACIT 30 GM OINT TOP SCH (09:38)
[2017-02-19] MEDS: NYSTATIN 30 GM POWDER BTL TOP SCH (09:38)
[2017-02-19] MEDS: HYDROGEN PEROXIDE 118 ML TOP SCH (09:38)
[2017-02-19] MEDS: COLLAGENASE 30 GM TUBE TOP SCH (09:39)
--- NOTE | 2017-02-19 12:37 | CONS ---
Date/Time of Note Date/Time of Note DATE: 02/19/17 TIME: 12:35 Assessment/Plan Assessment/Plan Additional Assessment/Plan Sacral decubiti DVT of left upper extremity History of paroxysmal atrial fibrillation Preserved ejection fraction Peripheral arterial disease -BP trend overall stable. Continue anticoagulation as able to tolerate. Consultation Date/Type/Reason Admit Date/Time Jan 15, 2017 at 14:33 Initial Consult Date 01/19/17 Type of Consultation: cv Referring Provider: RIDGE MATTHEWS MD 24 HR Interval Summary Free Text/Dictation Patient seen and examined Exam/Review of Systems Vital Signs Vitals Vital Signs Date Time Temp Pulse Resp B/P Pulse Ox O2 Delivery O2 Flow Rate FiO2 02/19/17 08:30 98.8 76 18 130/64 96 02/19/17 02:21 2.0 02/18/17 23:27 Nasal Cannula Intake and Output 02/18/17 02/18/17 02/19/17 15:00 23:00 07:00 Intake Total 100 ml 1300 ml 920 ml Output Total 1000 ml 750 ml Balance 100 ml 300 ml 170 ml Exam Sleeping but arousable, no apparent distress Head: normocephalic Respiratory: other (Coarse breath sounds bilaterally, no wheezing) Cardiovascular: other (S1-S2 heard), regular rate and rhythm Gastrointestinal: bowel sounds, non-tender, soft Extremities: edema Results Result Diagram: 02/17/17 0557 02/17/17 0557 Results 24 hrs Laboratory Tests Test 02/18/17 17:24 02/18/17 20:12 02/19/17 00:18 02/19/17 05:31 Bedside Glucose 140 164 121 133 Test 02/19/17 09:30 02/19/17 10:51 02/19/17 11:58 Bedside Glucose 114 139 Erythrocyte Sedimentation Rate 65 H Medications Medications Current Medications Ondansetron HCl (Zofran Inj) 4 mg Q6H PRN IV NAUSEA AND/OR VOMITING Last administered on 02/18/17t 22:16; Admin Dose 4 MG; Start 01/15/17 at 16:30 IV Flush (NS 10 ml) 10 ml PRN PRN IV IV PROTOCOL; Start 01/15/17 at 18:30 Miscellaneous Information 1 ea NOTE XX ; Start 01/15/17 at 19:00 Glucose (Glutose) 15 gm Q15M PRN PO DECREASED GLUCOSE; Start 01/15/17 at 19:00 Glucose (Glutose) 22.5 gm Q15M PRN PO DECREASED GLUCOSE; Start 01/15/17 at 19: 00 Dextrose (D50w Syringe) 25 ml Q15M PRN IV DECREASED GLUCOSE Last administered on 01/21/17 20:37; Admin Dose 25 ML; Start 01/15/17 at 19:00 Dextrose (D50w Syringe) 50 ml Q15M PRN IV DECREASED GLUCOSE; Start 01/15/17 at 19:00 Glucagon (Glucagen) 1 mg Q15M PRN IM DECREASED GLUCOSE; Start 01/15/17 at 19:00 Glucose (Glutose) 15 gm Q15M PRN BUCCAL DECREASED GLUCOSE Last administered on 01/21/17 19:53; Admin Dose 15 GM; Start 01/15/17 at 19:00 Diagnostic Test (Pha) (Accu-Chek) 1 ea 02 XX Last administered on 02/17/17 02: 50; Admin Dose 1 EA; Start 01/16/17 at 02:00 Hydralazine HCl (Apresoline) 10 mg Q6 PRN IV ELEVATED BLOOD PRESSURE Last administered on 01/17/17 03:05; Admin Dose 10 MG; Start 01/17/17 at 03:00 Acetaminophen (Tylenol Supp) 650 mg Q6H PRN NM FEVER GREATER THAN 100.6 Last administered on 01/17/17 07:26; Admin Dose 650 MG; Start 01/17/17 at 07:00 Nystatin (Nystatin Powder) 1 applic BID TOP Last administered on 02/19/17 09: 38; Admin Dose 1 APPLIC; Start 01/18/17 at 21:00 Bisacodyl (Dulcolax Supp) 10 mg BID PRN NM CONSTIPATION; Start 01/19/17 at 12: 00 Sodium Biphosphate/ Sodium Phosphate (Fleet Enema) 133 ml BID PRN NM CONSTIPATION; Start 01/19/17 at 12:00 Zolpidem Tartrate (Ambien) 10 mg HS PRN PO INSOMNIA Last administered on 22:16; Admin Dose 10 MG; Start 01/21/17 at 13:30 IV Flush (NS 10 ml) 10 ml PRN PRN IV IV PROTOCOL; Start 01/21/17 at 19:00 Insulin Human NPH (Humulin N) 10 unit BID@08,20 SC Last administered on 09:33; Admin Dose 10 UNIT; Start 01/22/17 at 08:00 Ascorbic Acid (Vitamin C) 500 mg BID GTB Last administered on 02/19/17 09:34; Admin Dose 500 MG; Start 01/23/17 at 21:00 Insulin Aspart (Novolog Insulin Pen) NOVOLOG *MODERATE* ALGORITHM Q4 SC Last administered on 02/18/17 09:05; Admin Dose 4 UNIT; Start 01/27/17 at 17:00 Neomycin/ Polymyxin/ Bacitracin (Neosporin Topical Oint) 1 applic BID TOP Last administered on 02/19/17 09:38; Admin Dose 1 APPLIC; Start 01/28/17 at 09:00 Hydrogen Peroxide 1 applic 1 applic BID TOP Last administered on 02/19/17 09: 38; Admin Dose 1 APPLIC; Start 01/28/17 at 09:00 Tigecycline/ Sodium Chloride (Tygacil/NS) 100 ml @ 200 mls/hr Q12 IVPB Last administered on 02/19/17 09:36; Admin Dose 200 MLS/HR; Start 01/29/17 at 21:00 Acetaminophen (Tylenol Tab) 650 mg Q6H PRN GTB PAIN LEVEL 1-3 OR FEVER Last administered on 02/05/17 21:03; Admin Dose 650 MG; Start 02/04/17 at 10:58 Calcium Carbonate (Tums) 500 mg BID GTB Last administered on 02/19/17 09:34; Admin Dose 500 MG; Start 02/04/17 at 11:00 Clonidine (Catapres) 0.1 mg Q6H PRN GTB BLOOD PRESSURE SBP>160; Start 02/04/17 at 11:01 Docusate Sodium (Colace Liquid Cup) 100 mg BID PRN GTB CONSTIPATION; Start at 11:30 Famotidine (Pepcid) 20 mg DAILY GTB Last administered on 02/19/17 09:34; Admin Dose 20 MG; Start 02/04/17 at 11:03 Ferrous Sulfate (Feosol Liquid Cup) 225 mg DAILY GTB Last administered on 09:35; Admin Dose 225 MG; Start 02/04/17 at 11:30 Montelukast Sodium (Singulair) 10 mg QHS GTB Last administered on 02/18/17 20: 14; Admin Dose 10 MG; Start 02/04/17 at 11:12 Guaifenesin (Robitussin Liquid Cup) 200 mg Q4H PRN GTB COUGH Last administered on 02/10/17 06:12; Admin Dose 200 MG; Start 02/08/17 at 23:30 Methadone HCl (Methadone) 10 mg HS PRN GTB pain Last administered on 02/18/17 20:42; Admin Dose 10 MG; Start 02/11/17 at 21:00 Acetaminophen/ Hydrocodone Bitart ([place] (5/325)) 0.5 tab Q8 PRN GTB pain Last administered on 02/18/17 15:17; Admin Dose 0.5 TAB; Start 02/11/17 at 15:00 Amlodipine Besylate (Norvasc) 5 mg DAILY PO Last administered on 02/19/17 09: 34; Admin Dose 5 MG; Start 02/14/17 at 09:00 Collagenase (Santyl) 1 applic DAILY TOP Last administered on 02/19/17 09:39; Admin Dose 1 APPLIC; Start 02/13/17 at 14:00 Trimethoprim/ Sulfamethoxazole (Bactrim (Ds)) 2 tab BID GTB Last administered on 02/19/17 09:34; Admin Dose 2 TAB; Start 02/17/17 at 21:00 Tucker Jacome DO Feb 19, 2017 12:36
[2017-02-19 14:00] VITALS: BP 129/72; RESP 18
--- NOTE | 2017-02-19 14:13 | PN ---
Date/Time of Note Date/Time of Note DATE: 02/19/17 TIME: 14:12 Assessment/Plan VTE Prophylaxis VTE Prophylaxis Intervention: other Lines/Catheters IV Catheter Type (from Nrsg): PICC Line Central line still needed: Yes Urinary Cath still in place: Yes Reason Cath still needed: skin wounds contaminated by urine Assessment/Plan Chief Complaint/Hosp Course more awake 02/15 mild abd pain. . Problems: Assessment/Plan pt awake and talking. has approval for d/c to [facility]. 02/17 awake and anwers questions. more alert today. no c/o. 02/11arousible today. not given meth this am. prn norco. better resp sounds. 02/10 off am methadone, now note lung congestion with inspir. arousible. k mild elevated 5.3 lower dose of methadone 10 am and still sedated. wound reported mild improvement 02/07 wbc going back up and the hgb going down 02/08 wbc still going up. pt sedated. nurse and family says always sedated. --hgb 7.9 transfused 1u prbc on high K- K high over the weekend and required kayex. losartan was d/c'd. cont to watch K sacral stage IV decub, growing proteus and ecoli and s.aureus. on merrem/vanco , being treated by ID. 02/19 debrided and eval for osteo. called ortho- they report that nothing for them to do regarding fx or osteo of sacrum. wbc improving. -path report +osteo. ortho called and will not treat. - vre grew. now on tigecycline/merrem. -if wound does not improve, ID is recommending diverting colostomy.---wound is mildly better. multi bugs growing. ID deciding if any changes of med. wbc has cont to improve. -currently afebrile. -----ID reports 02/08 - Acinetobacter is resistant to colisitin, intermediate to minocycline (PROMISE of 8) and Tigecycline PROMISE is 2 (no interpretation available but likely sensitive) continue with merrem/tigecycline thru 03/12, monitor ESR on a weekly basis wound appears to be improving and ESR has come down will add bactrim temporarily to see if it will improve her leukocytosis one of the possible side effects of tigecycline is leukocytosis left pneumonia. resolved. hhn prn. poor appetite- gtube in place. pt is allowed p.o. intake with aspiration precautions. not oral eating much since sedated. if pt is able to eat on own may stop gtube. mentation -pain controlled with methadone. better on methadone in evening. and 1/2 norco q 8 inthe day prn. 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 off losartan dmII since gtube feeding, adjusting the insulin. doing well accu check stable. paroxysmal afib on last admission- occurred during sepsis and intubation. d/c' d eliquis due to anemia. no signs of recent afib. h/o left dvt of UE. will hold eliquis due to cont to anemic. left dvt is old and stable. d/c to snf pt to cont abx via ID rec. Exam/Review of Systems Vital Signs Vitals Vital Signs Date Time Temp Pulse Resp B/P Pulse Ox O2 Delivery O2 Flow Rate FiO2 02/19/17 13:41 Nasal Cannula 2.0 02/19/17 08:30 98.8 76 18 130/64 96 Intake and Output 02/18/17 02/18/17 02/19/17 15:00 23:00 07:00 Intake Total 100 ml 1300 ml 920 ml Output Total 1000 ml 750 ml Balance 100 ml 300 ml 170 ml Results Result Diagram: 02/17/17 0557 02/17/17 0557 Results 24 hrs Laboratory Tests Test 02/18/17 17:24 02/18/17 20:12 02/19/17 00:18 02/19/17 05:31 Bedside Glucose 140 164 121 133 Test 02/19/17 09:30 02/19/17 10:51 02/19/17 11:58 Bedside Glucose 114 139 Erythrocyte Sedimentation Rate 65 H Medications Medications Current Medications Ondansetron HCl (Zofran Inj) 4 mg Q6H PRN IV NAUSEA AND/OR VOMITING Last administered on 02/18/17t 22:16; Admin Dose 4 MG; Start 01/15/17 at 16:30 IV Flush (NS 10 ml) 10 ml PRN PRN IV IV PROTOCOL; Start 01/15/17 at 18:30 Miscellaneous Information 1 ea NOTE XX ; Start 01/15/17 at 19:00 Glucose (Glutose) 15 gm Q15M PRN PO DECREASED GLUCOSE; Start 01/15/17 at 19:00 Glucose (Glutose) 22.5 gm Q15M PRN PO DECREASED GLUCOSE; Start 01/15/17 at 19: 00 Dextrose (D50w Syringe) 25 ml Q15M PRN IV DECREASED GLUCOSE Last administered on 01/21/17 20:37; Admin Dose 25 ML; Start 01/15/17 at 19:00 Dextrose (D50w Syringe) 50 ml Q15M PRN IV DECREASED GLUCOSE; Start 01/15/17 at 19:00 Glucagon (Glucagen) 1 mg Q15M PRN IM DECREASED GLUCOSE; Start 01/15/17 at 19:00 Glucose (Glutose) 15 gm Q15M PRN BUCCAL DECREASED GLUCOSE Last administered on 01/21/17 19:53; Admin Dose 15 GM; Start 01/15/17 at 19:00 Diagnostic Test (Pha) (Accu-Chek) 1 ea 02 XX Last administered on 02/17/17 02: 50; Admin Dose 1 EA; Start 01/16/17 at 02:00 Hydralazine HCl (Apresoline) 10 mg Q6 PRN IV ELEVATED BLOOD PRESSURE Last administered on 01/17/17 03:05; Admin Dose 10 MG; Start 01/17/17 at 03:00 Acetaminophen (Tylenol Supp) 650 mg Q6H PRN HI FEVER GREATER THAN 100.6 Last administered on 01/17/17 07:26; Admin Dose 650 MG; Start 01/17/17 at 07:00 Nystatin (Nystatin Powder) 1 applic BID TOP Last administered on 02/19/17 09: 38; Admin Dose 1 APPLIC; Start 01/18/17 at 21:00 Bisacodyl (Dulcolax Supp) 10 mg BID PRN [place] CONSTIPATION; Start 01/19/17 at 12: 00 Sodium Biphosphate/ Sodium Phosphate (Fleet Enema) 133 ml BID PRN [place] CONSTIPATION; Start 01/19/17 at 12:00 Zolpidem Tartrate (Ambien) 10 mg HS PRN PO INSOMNIA Last administered on 22:16; Admin Dose 10 MG; Start 01/21/17 at 13:30 IV Flush (NS 10 ml) 10 ml PRN PRN IV IV PROTOCOL; Start 01/21/17 at 19:00 Insulin Human NPH (Humulin N) 10 unit BID@08,20 SC Last administered on 09:33; Admin Dose 10 UNIT; Start 01/22/17 at 08:00 Ascorbic Acid (Vitamin C) 500 mg BID GTB Last administered on 02/19/17 09:34; Admin Dose 500 MG; Start 01/23/17 at 21:00 Insulin Aspart (Novolog Insulin Pen) NOVOLOG *MODERATE* ALGORITHM Q4 SC Last administered on 02/18/17 09:05; Admin Dose 4 UNIT; Start 01/27/17 at 17:00 Neomycin/ Polymyxin/ Bacitracin (Neosporin Topical Oint) 1 applic BID TOP Last administered on 02/19/17 09:38; Admin Dose 1 APPLIC; Start 01/28/17 at 09:00 Hydrogen Peroxide 1 applic 1 applic BID TOP Last administered on 02/19/17 09: 38; Admin Dose 1 APPLIC; Start 01/28/17 at 09:00 Tigecycline/ Sodium Chloride (Tygacil/NS) 100 ml @ 200 mls/hr Q12 IVPB Last administered on 02/19/17 09:36; Admin Dose 200 MLS/HR; Start 01/29/17 at 21:00 Acetaminophen (Tylenol Tab) 650 mg Q6H PRN GTB PAIN LEVEL 1-3 OR FEVER Last administered on 02/05/17 21:03; Admin Dose 650 MG; Start 02/04/17 at 10:58 Calcium Carbonate (Tums) 500 mg BID GTB Last administered on 02/19/17 09:34; Admin Dose 500 MG; Start 02/04/17 at 11:00 Clonidine (Catapres) 0.1 mg Q6H PRN GTB BLOOD PRESSURE SBP>160; Start 02/04/17 at 11:01 Docusate Sodium (Colace Liquid Cup) 100 mg BID PRN GTB CONSTIPATION; Start at 11:30 Famotidine (Pepcid) 20 mg DAILY GTB Last administered on 02/19/17 09:34; Admin Dose 20 MG; Start 02/04/17 at 11:03 Ferrous Sulfate (Feosol Liquid Cup) 225 mg DAILY GTB Last administered on 09:35; Admin Dose 225 MG; Start 02/04/17 at 11:30 Montelukast Sodium (Singulair) 10 mg QHS GTB Last administered on 02/18/17 20: 14; Admin Dose 10 MG; Start 02/04/17 at 11:12 Guaifenesin (Robitussin Liquid Cup) 200 mg Q4H PRN GTB COUGH Last administered on 02/10/17 06:12; Admin Dose 200 MG; Start 02/08/17 at 23:30 Methadone HCl (Methadone) 10 mg HS PRN GTB pain Last administered on 02/18/17 20:42; Admin Dose 10 MG; Start 02/11/17 at 21:00 Acetaminophen/ Hydrocodone Bitart ([place] (5/325)) 0.5 tab Q8 PRN GTB pain Last administered on 02/18/17 15:17; Admin Dose 0.5 TAB; Start 02/11/17 at 15:00 Amlodipine Besylate (Norvasc) 5 mg DAILY PO Last administered on 02/19/17 09: 34; Admin Dose 5 MG; Start 02/14/17 at 09:00 Collagenase (Santyl) 1 applic DAILY TOP Last administered on 02/19/17 09:39; Admin Dose 1 APPLIC; Start 02/13/17 at 14:00 Trimethoprim/ Sulfamethoxazole (Bactrim (Ds)) 2 tab BID GTB Last administered on 02/19/17 09:34; Admin Dose 2 TAB; Start 02/17/17 at 21:00 RIDGE MATTHEWS MD Feb 19, 2017 14:13
[2017-02-19] MEDS: HYDROCODONE/APAP (5/325) TAB GTB PRN (14:32)
== END 2017-02-19 18:55 | DRG 853 ==
LOC: E/R 12:31 → PP2 14:33
PROVIDERS: ADMIT Internal Medicine; ATTEND Internal Medicine
PROC: 02HV33Z Insertion of Infusion Device into Superior Vena Cava, Percutaneous Approach (ICD-10-PCS; 2017-01-15)
PROC: 30233N1 Transfusion of Nonautologous Red Blood Cells into Peripheral Vein, Percutaneous Approach (ICD-10-PCS; 2017-01-16)
PROC: 0QBS0ZZ Excision of Coccyx, Open Approach (ICD-10-PCS; principal; 2017-01-19 09:30)
PROC: 02PYX3Z Removal of Infusion Device from Great Vessel, External Approach (ICD-10-PCS; 2017-01-21)
PROC: 02HV33Z Insertion of Infusion Device into Superior Vena Cava, Percutaneous Approach (ICD-10-PCS; 2017-01-21)
PROC: 0DH63UZ Insertion of Feeding Device into Stomach, Percutaneous Approach (ICD-10-PCS; 2017-01-22)
DX: A41.89 Other specified sepsis (principal); L89.154 Pressure ulcer of sacral region, stage 4; J69.0 Pneumonitis due to inhalation of food and vomit; E43 Unspecified severe protein-calorie malnutrition; I48.0 Paroxysmal atrial fibrillation; E11.69 Type 2 diabetes mellitus with other specified complication; F03.90 Unspecified dementia, unspecified severity, without behavioral disturbance, psychotic disturbance, mood disturbance, and anxiety; E87.5 Hyperkalemia; I82.622 Acute embolism and thrombosis of deep veins of left upper extremity; L03.317 Cellulitis of buttock; I82.612 Acute embolism and thrombosis of superficial veins of left upper extremity; M86.9 Osteomyelitis, unspecified; L89.620 Pressure ulcer of left heel, unstageable; D63.8 Anemia in other chronic diseases classified elsewhere; I10 Essential (primary) hypertension; Z68.27 Body mass index [BMI] 27.0-27.9, adult; E87.6 Hypokalemia; B96.4 Proteus (mirabilis) (morganii) as the cause of diseases classified elsewhere; B96.20 Unspecified Escherichia coli [E. coli] as the cause of diseases classified elsewhere; B95.61 Methicillin susceptible Staphylococcus aureus infection as the cause of diseases classified elsewhere; I73.9 Peripheral vascular disease, unspecified; Z22.322 Carrier or suspected carrier of Methicillin resistant Staphylococcus aureus; B95.2 Enterococcus as the cause of diseases classified elsewhere; Z16.21 Resistance to vancomycin; Z89.511 Acquired absence of right leg below knee
CPT/HCPCS: 36430; 36569; 71010; 72197; 74183; 76937; 80048; 80053; 80202; 81001; 82330; 82962; 83036; 83540; 83605; 83735; 84132; 84134; 84145; 84155; 84165; 84443; 84484; 85014; 85018; 85025; 85610; 85651; 85730; 86140; 86704; 86709; 86803; 86850; 86900; 86901; 86920; 87040; 87070; 87075; 87081; 87086; 87340; 88304; 92610; 93005; 93971; 94640; 94664; 96374; 96375; J1940; J0360; J0610; J0690; J0692; J0885; J1100; J1170; J1200; J1450; J1650; J1815; J2185; J2250; J2270; J2405; J2710; J2997; J3010; J3243; J3370; J3475; J3480; J7030; J7050; P9016; Q4118

== ENCOUNTER 2017-02-22 12:24 | Inpatient (IN) | payer MEDICARE, OTHER ==
[~2017-02-22] VITALS: Ht 154.9 cm; Wt 62.5 kg
[~2017-02-22 12:24] MED LIST changes: +ALBU2.5V3 HHN; +AMLO-145 PO; +ASC500 GTB; +HYDR-3498 GTB; +METH10TA2 GTB; +NEOM28OI TOP; +NYST15PO4 TOP; +SAN30GM TOP; +UDFER GTB; +ZOLP5TAB PO
[2017-02-22] MEDS ORDERED: SOD CHLORIDE 0.9% 500 ML IV STA (12:46)
[2017-02-22 13:05] LABS: ABNORMAL IP MESSAGE 1; BASOPHIL # 0.1 10^3/ul (0.0-0.1); BASOPHILS % 0.4 % (0.0-2.0); EOSINOPHILS # 0.4 10^3/ul (0.0-0.5); EOSINOPHILS % 2.1 % (0.0-7.0); HEMATOCRIT 30.9 % (37.0-47.0); HEMOGLOBIN 10.4 g/dl (12.0-16.0); LYMPHOCYTES # 4.4 10^3/ul (0.8-2.9); LYMPHOCYTES % 21.8 % (15.0-51.0); MEAN CORPUSCULAR HEMOGLOBIN 29.5 pg (29.0-33.0); MEAN CORPUSCULAR HGB CONC 33.7 g/dl (32.0-37.0); MEAN CORPUSCULAR VOLUME 87.5 fl (82.0-101.0); MEAN PLATELET VOLUME 9.1 fl (7.4-10.4); MONOCYTE # 1.6 10^3/ul (0.3-0.9); MONOCYTES % 8.1 % (0.0-11.0); NEUTROPHIL # 13.5 10^3/ul (1.6-7.5); NEUTROPHILS % 66.7 % (39.0-77.0); PLATELET COUNT 366 10^3/UL (140-415); RED BLOOD COUNT 3.53 10^6/ul (4.20-5.40); RED CELL DISTRIBUTION WIDTH 18.4 % (11.5-14.5); WHITE BLOOD COUNT 20.2 10^3/ul (4.8-10.8)
[2017-02-22 13:11] LABS: POSITIVE DIFF @See below
--- NOTE | 2017-02-22 13:17 | RADRPT ---
PROCEDURE: XR Chest. CLINICAL INDICATION: Shortness of breath. TECHNIQUE: Single frontal view. COMPARISON: 02/10/2017. FINDINGS: The right arm PICC line is in satisfactory position. Previously noted left basilar atelectasis or pn eumonia is no longer present. The lungs are now clear. The heart size is normal. There is calcification in the aorta consistent with atherosclerosis. There is no pleural effusion or pneumothorax. There is left shoulder calcific tendonitis. IMPRESSION: 1. Left basilar atelectasis or pneumonia previously visualized is no longer present. 2. Right arm PICC line. 3. Atherosclerosis. 4. Left shoulder calcific tendonitis. RPTAT: QQ .Tod Elias MD, MD Date Time Electronically viewed and signed by .Tod Elias MD, on 02/22/2017 13:17 .R/
[2017-02-22 13:22] LABS: ALANINE AMINOTRANSFERASE 44 IU/L (13-69); ALBUMIN 2.6 g/dl (3.3-4.9); ALKALINE PHOSPHATASE 234 IU/L (42-121); ANION GAP 12 (8-16); ASPARTATE AMINO TRANSFERASE 33 IU/L (15-46); BILIRUBIN,INDIRECT 0.1 mg/dl (0-1.1); BILIRUBIN,TOTAL 0.1 mg/dl (0.2-1.3); BLOOD UREA NITROGEN 48 mg/dl (7-20); CALCIUM 9.3 mg/dl (8.4-10.2); CARBON DIOXIDE 23 mmol/L (21-31); CHLORIDE 98 mmol/L (97-110); CREATININE 1.06 mg/dl (0.44-1.00); GLUCOSE 143 mg/dl (70-220); SODIUM 126 mmol/L (135-144); TOTAL PROTEIN 6.9 g/dl (6.1-8.1)
[2017-02-22] MEDS ORDERED: INSULIN REGULAR, HUMAN 100 UNIT/1 ML 3ML VIAL IV STA (13:29)
[2017-02-22] MEDS ORDERED: NA BICARBONATE 8.4% 50 ML SYG IV STA (13:29)
[2017-02-22] MEDS ORDERED: SOD CHLORIDE 0.9% 1,000 ML IV STA (13:29)
[2017-02-22] MEDS ORDERED: NA POLYST SULFON 15 GM/60 ML BTL PO STA (13:29)
[2017-02-22] MEDS ORDERED: DEXTROSE 50% 50 ML SYRINGE IV PRN ×3 (13:30→18:00)
[2017-02-22] MEDS ORDERED: CALCIUM GLUCONATE 10% 1 GM in SOD CHLORIDE 0.9% 100 ML IVPB ONE (13:30)
[2017-02-22] MEDS ORDERED: morphine 4 MG/ML VIAL ONE (13:34)
[2017-02-22] MEDS ORDERED: ONDANSETRON 4 MG INJ ONE (13:34)
[2017-02-22 13:36] LABS: TROPONIN-I < 0.012 ng/ml (0.00-0.12)
[2017-02-22] MEDS ORDERED: ONDANSETRON 4 MG INJ IV STA (13:37)
[2017-02-22] MEDS ORDERED: morphine 4 MG/ML VIAL IV STA (13:37)
--- NOTE | 2017-02-22 14:27 | ERA ---
ER Documentation Chief Complaint Date/Time DATE: 02/22/17 TIME: 14:24 Chief Complaint SENT FROM SNF EVAL OF ABNORMAL LABS HIGH K+ LOW nA+ HPI This is an 81-year-old female history of chronic encephalopathy, sacral decubitus ulcer with hospitalization December for osteomyelitis who presents because of abnormal lab values and include hyperkalemia and hyponatremia. The patient presents from [facility] facility. History provided by family member and EMS as the patient is nonverbal. Remainder of HPI is limited. ROS All systems reviewed and are negative except as per history of present illness. Medications Home Meds Active Scripts Methadone Hcl* (Methadone*) 10 Mg Tab, 10 MG GTB HS Y for pain for 30 Days, #30 TAB Prov:RIDGE MATTHEWS MD 02/17/17 Hydrocodone Bit-Acetaminophen (Hydrocodone Bit-APAP) 5-325MG Tablet, 0.5 TAB GTB Q8 Y for pain for 30 Days, #60 TAB Prov:RIDGE MATTHEWS MD 02/17/17 Albuterol Sulfate* (Albuterol Sulfate* Neb) 0.083%-3 Ml Neb, 1.25 MG HHN Q6H RESP THERAPY Y for WHEEZING AND SOB for 90 Days, #90 Prov:RIDGE MATTHEWS MD 02/17/17 Reported Medications Insulin Aspart* (Novolog Insulin Pen*) 100 Unit/Ml Soln, 0 SC .SLIDING SCALE AC , EA 60-130= 0 units 131-160= 2 units 161-200= 3 units 201-250= 4 units 251-300= 6 units 301-350= 8 units 351-400= 10 units over 400 give 10 units and notify md also if under 60 02/22/17 Guaifenesin* (Robitussin*) 100 Mg/5 Ml Syrup, 100 MG GTB Q4H Y for COUGH, ML 02/22/17 Acetaminophen* (Acetaminophen*) 650 Mg Tablet, 650 MG GTB Q6H Y for PAIN AND OR ELEVATED TEMP, #30 TAB 02/22/17 Zolpidem Tartrate* (Ambien*) 10 Mg Tablet, 10 MG GTB QHS Y for INSOMNIA, TAB 02/22/17 Ondansetron Hcl* (Zofran*) 4 Mg Tablet, 4 MG GTB Q6H Y for NAUSEA AND OR VOMITING, TAB 02/22/17 Clonidine Hcl* (Clonidine Hcl*) 0.1 Mg Tab, 0.1 MG GTB Q6 Y for ELEVATED BLOOD PRESSURE, TAB 02/22/17 Sodium Phosphate,[place]-Dibasic (Enema Ready To Use) 133 Ml Enema, 133 ML RC every 2 days Y for CONSTIPATION, ENEMA 02/22/17 Bisacodyl (Dulcolax) 10 Mg Supp.rect, 10 MG RC DAILY Y for CONSTIPATION, SUPP.RECT 02/22/17 Magnesium Hydroxide* (Milk Of Magnesia*) 400 Mg/5 Ml Oral.susp, 30 ML GTB QHS Y for CONSTIPATION, ML 02/22/17 Docusate Sodium* (Colace*) 100 Mg Capsule, 100 MG GTB BID Y for CONSTIPATION, # 60 CAP hold for loose bowel movement 02/22/17 Acetaminophen* (Acetaminophen*) 650 Mg Tablet, 650 MG GTB DAILY Y for PAIN AND OR ELEVATED TEMP, #30 TAB wound pain management 02/22/17 Cranberry Extract (Cranberry) 425 Mg Capsule, 425 MG GTB DAILY, CAP 02/22/17 Ferrous Sulfate (Ferrous Sulfate) 300 Mg/5 Ml Liquid, 330 MG GTB DAILY 02/22/17 Zinc Sulfate* (Zinc Sulfate*) 220 Mg Tablet, 220 MG GTB DAILY, TAB 02/22/17 Multivitamins* (Theragran*) 1 Tab Tab, 1 TAB GTB DAILY, TAB 02/22/17 Montelukast Sodium* (Singulair*) 10 Mg Tablet, 10 MG GTB QHS, #30 TAB 02/22/17 Cran/Vitc/Mannose/Inulin/Brom (Uti-Stat Liquid) 3,875 Mg/30 Ml Liquid, 3875 MG GTB BID 02/22/17 Calcium Carbonate* (Calcium Carbonate*) 600 MG Ca Tab, 600 MG GTB BID, TAB 02/22/17 Ascorbic Acid* (Vitamin C*) 500 Mg Capsule.sa, 500 MG GTB DAILY, CAP 02/22/17 Aspirin (Low Dose Aspirin) 81 Mg Tablet.dr, 81 MG GTB DAILY, #30 TAB 02/22/17 Amlodipine Besylate* (Norvasc*) 5 Mg Tablet, 5 MG GTB DAILY, TAB 02/22/17 Sulfamethoxazole/Trimethoprim* (Bactrim Ds* Tablet) 1 Each Tablet, 2 TAB GTB BID , TAB stop 03-12-17 02/22/17 Discontinued Reported Medications Zolpidem Tartrate* (Ambien*) 10 Mg Tablet, 10 MG PO QHS Y for INSOMNIA, TAB 02/22/17 Multivits-Min/Iron/FA/Lutein (Centrum Silver Women Tablet) 1 Each Tablet, 1 EACH PO, TAB 10/28/16 Insulin Isophan/Regular (Humulin 70/30) 100 Units/Ml Susp, 0 SC SLIDING SCALE, EA - 40u QAM & 60u QPM 10/28/16 Methadone Hcl* (Methadone*) 10 Mg Tab, 15 MG PO BID, TAB 07/14/16 Montelukast Sodium* (Montelukast Sodium*) 10 Mg Tablet, 10 MG PO QHS, #30 TAB 07/14/16 Losartan Potassium* (Losartan Potassium*) 100 Mg Tablet, 100 MG PO BID, TAB 07/14/16 Aspirin* (Aspirin* EC) 81 Mg Tablet.dr, 81 MG PO DAILY, TAB 07/14/16 Discontinued Scripts Ascorbic Acid (Vitamin C) 500 Mg Tab, 500 MG GTB BID for 90 Days, #120 TAB Prov:RIDGE MATTHEWS MD 02/17/17 Nystatin* (Nystop*) 15 Gm Powder, 1 APPLIC TOP BID for 90 Days, #90 Prov:RIDGE MATTHEWS MD 02/17/17 Neomycin [place]/Bacitrac Zn/Poly (Triple Antibiotic Ointment) 28 Gm Oint...g., 1 APPLIC TOP BID for 90 Days, #90 Prov:RIDGE MATTHEWS MD 02/17/17 Collagenase* (Santyl*) 30 Gm Oint..gm., 1 APPLIC TOP DAILY for 30 Days, #30 Prov:RIDGE MATTHEWS MD 02/17/17 Zolpidem Tartrate (Ambien Armen) 5 Mg Tablet, 10 MG PO HS Y for INSOMNIA for 60 Days, #60 TAB Prov:RIDGE MATTHEWS MD 02/17/17 Amlodipine Besylate* (Amlodipine Besylate*) 5 Mg Tablet, 5 MG PO DAILY for 90 Days, #90 TAB Prov:RIDGE MATTHEWS MD 02/17/17 Ferrous Sulfate (Ferrous Sulfate) 300 Mg/5 Ml Liquid, 225 MG GTB DAILY for 30 Days, #60 Prov:RIDGE MATTHEWS MD 02/17/17 Allergies Allergies: Coded Allergies: Benzodiazepines (Verified Allergy, Severe, hallucinations, 02/22/17) Penicillins (Verified Allergy, Mild, RASH, 02/22/17) PMhx/Soc Anesthesia Reaction: No Hx Neurological Disorder: No Hx Respiratory Disorders: No Hx Cardiac Disorders: Yes (HTN) Hx Psychiatric Problems: No Hx Miscellaneous Medical Probl: No Hx Alcohol Use: No Hx Substance Use: No Hx Tobacco Use: No Smoking Status: Unknown if ever smoked FmHx Family History: No diabetes Physical Exam Vitals Vital Signs Date Time Temp Pulse Resp B/P Pulse Ox O2 Delivery O2 Flow Rate FiO2 02/22/17 15:30 78 20 138/49 99 Room Air 02/22/17 14:14 81 18 127/40 98 Room Air 02/22/17 12:42 97.7 84 19 134/61 100 Physical Exam General: No significant distress Head: Normocephalic, atraumatic. Eyes: Pupils equally reactive, EOM intact ENT: dry mucous membranes Neck: Supple, no lymphadenopathy Respiratory: Lungs clear bilaterally, no distress Cardiovascular: RRR, no murmurs, rubs, or gallops Abdominal: Soft, non-tender, non-distended, no peritoneal signs : Deferred MSK: Limited movement of all 4 extremities, no bony abnormalities Neurologic: Limited exam, and encephalopathic, limited movement of all 4 extremities Skin: Sacral decubitus ulcer Psych: Unable to assess Result Diagram: 02/22/17 1255 02/22/17 1255 Results 24 hrs Laboratory Tests Test 02/22/17 12:55 02/22/17 13:35 02/22/17 14:28 02/22/17 15:27 White Blood Count 20.210^3/ul Red Blood Count 3.5310^6/ul Hemoglobin 10.4g/dl Hematocrit 30.9% Mean Corpuscular Volume 87.5fl Mean Corpuscular Hemoglobin 29.5pg Mean Corpuscular Hemoglobin Concent 33.7g/dl Red Cell Distribution Width 18.4% Platelet Count 38920^3/UL Mean Platelet Volume 9.1fl Neutrophils % 66.7% Lymphocytes % 21.8% Monocytes % 8.1% Eosinophils % 2.1% Basophils % 0.4% Nucleated Red Blood Cells % 0.0/100WBC Neutrophils # 13.510^3/ul Lymphocytes # 4.410^3/ul Monocytes # 1.610^3/ul Eosinophils # 0.410^3/ul Basophils # 0.110^3/ul Nucleated Red Blood Cells # 0.010^3/ul Sodium Level 126mmol/L Potassium Level 7.0mmol/L Chloride Level 98mmol/L Carbon Dioxide Level 23mmol/L Anion Gap 12 Blood Urea Nitrogen 48mg/dl Creatinine 1.06mg/dl Glucose Level 143mg/dl Calcium Level 9.3mg/dl Total Bilirubin 0.1mg/dl Direct Bilirubin 0.00mg/dl Indirect Bilirubin 0.1mg/dl Aspartate Amino Transf (AST/SGOT) 33IU/L Alanine Aminotransferase (ALT/SGPT) 44IU/L Alkaline Phosphatase 234IU/L Troponin I < 0.012ng/ml Total Protein 6.9g/dl Albumin 2.6g/dl Globulin 4.30g/dl Albumin/Globulin Ratio 0.60 Free Thyroxine Index 2.30ug/ml Thyroxine (T4) 4.6ug/dl Triiodothyronine (T3) Uptake 49.9% Random Cortisol 22.1ug/dl Lactic Acid Level 1.5mmol/L Bedside Glucose 84mg/dL 116mg/dL Current Medications Medications (Trade) Dose Ordered Sig/[place] Route PRN Reason Start Time Stop Time Status Last Admin Dose Admin Sodium Chloride (NS) 500 ml @ 500 mls/hr Q1H STAT IV 02/22/17 12:46 02/22/17 13:45 DC 02/22/17 12:46 Sodium Polystyrene Sulfonate (Kayexalate) 30 gm ONCE STAT PO 02/22/17 13:29 02/22/17 13:32 DC 02/22/17 13:50 Sodium Bicarbonate 50 ml 50 ml ONCE STAT IV 02/22/17 13:29 02/22/17 13:32 DC 02/22/17 13:47 Sodium Chloride (NS) 1,000 ml @ 1,000 mls/hr Q1H STAT IV 02/22/17 13:29 02/22/17 14:28 DC 02/22/17 13:29 Insulin Human Regular (Humulin R) 10 unit ONCE STAT IV 02/22/17 13:29 02/22/17 13:32 DC 02/22/17 13:47 Dextrose ONCE PRN IV POC BLOOD GLUCOSE <250 MG/DL 02/22/17 13:30 02/22/17 14:39 Calcium Gluconate/ Sodium Chloride (Ca Gluc/NS) 110 ml @ 110 mls/hr ONCE ONCE IVPB 02/22/17 13:30 02/22/17 14:29 DC 02/22/17 13:30 Morphine Sulfate (morphine) 4 mg STK-MED ONCE .ROUTE 02/22/17 13:34 02/22/17 13:35 DC Ondansetron HCl (Zofran Inj) 4 mg STK-MED ONCE .ROUTE 02/22/17 13:34 02/22/17 13:35 DC Morphine Sulfate (morphine) 4 mg ONCE STAT IV 02/22/17 13:37 02/22/17 13:38 DC 02/22/17 13:45 Ondansetron HCl (Zofran Inj) 4 mg ONCE STAT IV 02/22/17 13:37 02/22/17 13:38 DC 02/22/17 13:45 Ondansetron HCl (Zofran Inj) 4 mg ER BRIDGE PRN IV NAUSEA AND/OR VOMITING 02/22/17 15:30 02/23/17 15:29 Acetaminophen (Tylenol Tab) 650 mg ER BRIDGE PRN PO MILD PAIN/FEVER 02/22/17 15:30 02/23/17 15:29 Procedures/MDM EKG, MONITORS, & DIAGNOSTIC IMAGING: EKG: I reviewed and interpreted a 12-lead EKG. Rhythm: Normal sinus rhythm Ectopy: None Intervals: No abnormalities ST segments: No elevations or depressions T waves: No contiguous inversions Chest x-ray: I reviewed and interpreted a 1 view of the chest Mediastinum: No enlargement Cardiac silhouette: No cardiomegaly Airspace: Clear lung matos bilaterally without evidence of pneumothorax Bones: No evidence of fracture LAB INTERPRETATION: Hyperkalemia of 7 hyponatremia, significant leukocytosis MEDICAL DECISION MAKING: The patient has chronic encephalopathy and presents from [facility] facility for hyperkalemia and hyponatremia. A broad differential exists including dehydration. The patient does not have evidence of renal failure. No EKG changes denoting significant hyperkalemia. However given the combination of hyperkalemia and hyponatremia, adrenal insufficiency needs to be considered. However, speaking against adrenal insufficiency is at the patient' s glucose is normal and no evidence of hypotension. Regardless, random cortisol will be sent and the patient may need a cosyntropin stimulation test. Patient will benefit from gentle fluid hydration, culture monitoring. The leukocytosis is possibly old however, the patient did recently have treatment for osteomyelitis of the sacral wound. Repeat evaluation is certainly necessary. At this time no focal sores and no fever, I will discuss antibiotics with the admitting team. ER COURSE: Blood cultures have been taken. I spoke to the patient's primary care physician , Dr. Matthews. He states that the patient is currently taking 3 different antibiotics and further dosing is not required. Blood cultures are pending. A cortisol level was pending at the time of the patient's admission. The level is 22. This is to be followed by the inpatient team. This is borderline, further cosyntropin stress testing per consultation of endocrinology and inpatient team. I kept the patient and/or family informed of laboratory and diagnostic imaging results throughout the emergency room course. DISPOSITION PLAN: Telemetry admission for management of hyperkalemia CONSULTATION: Accepting care team and consultations: I discussed the current laboratory data, diagnostic imaging and emergency care provided. Admitting team: Dr. Matthews Admitting team indication: Insurance directed Departure Diagnosis: Primary Impression: Leukocytosis Qualified Code: D72.829 - Leukocytosis, unspecified type Additional Impressions: Encephalopathy chronic Hyperkalemia Hyponatremia Condition: Stable EBENEZER HAIDER MD Feb 22, 2017 14:27
[2017-02-22] MEDS ORDERED: ZOLP10TA PO (14:54)
[2017-02-22 14:56] LABS: T3 UPTAKE 49.9 % (23.5-40.5)
[2017-02-22] MEDS ORDERED: SULF1TAB31 GTB (14:57)
[2017-02-22] MEDS ORDERED: AMLO5TAB4 GTB (14:58)
[2017-02-22] MEDS ORDERED: ASPI-664 GTB (14:59)
[2017-02-22] MEDS ORDERED: ASCO500C7 GTB (15:00)
[2017-02-22] MEDS ORDERED: CALC600T24 GTB (15:01)
[2017-02-22] MEDS ORDERED: CRAN3875 GTB (15:02)
[2017-02-22] MEDS ORDERED: MONT10TA21 GTB (15:03)
[2017-02-22] MEDS ORDERED: MULTI GTB (15:04)
[2017-02-22] MEDS ORDERED: ZINC220T GTB (15:04)
[2017-02-22] MEDS ORDERED: UDFER GTB (15:06)
[2017-02-22] MEDS ORDERED: CRAN425C2 GTB (15:07)
[2017-02-22] MEDS ORDERED: ACET-2047 GTB ×2 (15:08→15:20)
[2017-02-22] MEDS ORDERED: DOCU-144 GTB (15:10)
[2017-02-22] MEDS ORDERED: MAGN400O4 GTB (15:11)
[2017-02-22] MEDS ORDERED: BISA10SU55 RC (15:12)
[2017-02-22] MEDS ORDERED: NA P133E39 RC (15:13)
[2017-02-22] MEDS ORDERED: CLON-379 GTB (15:18)
[2017-02-22] MEDS ORDERED: ONDA4TAB8 GTB (15:18)
[2017-02-22] MEDS ORDERED: ZOLP10TA GTB (15:19)
[2017-02-22] MEDS ORDERED: GUAI-637 GTB (15:21)
[2017-02-22] MEDS ORDERED: NOVO3I SC (15:27)
[2017-02-22] MEDS ORDERED: ONDANSETRON 4 MG INJ IV PRN (15:30)
[2017-02-22] MEDS ORDERED: ACETAMINOPHEN 325 MG TAB PO PRN (15:30)
[2017-02-22] MEDS ORDERED: SOD CHLORIDE 0.9% 1,000 ML IV SCH (16:21)
[2017-02-22] MEDS ORDERED: HYDROCODONE/APAP (5/325) TAB PO PRN (16:30)
[2017-02-22] MEDS ORDERED: ZOLPIDEM 5 MG TAB PEG PRN (16:30)
[2017-02-22] MEDS ORDERED: ACETAMINOPHEN 325 MG TAB PEG PRN (16:30)
[2017-02-22] MEDS ORDERED: ONDANSETRON 4 MG TAB PO PRN (16:30)
[2017-02-22] MEDS ORDERED: NACL 0.9% 3 ML SYG IV SCH (16:30)
[2017-02-22 16:58] VITALS: PULSE 76
[2017-02-22] MEDS ORDERED: MAGNESIUM HYDROXIDE 30ML CUP GTB PRN (17:00)
[2017-02-22] MEDS ORDERED: DOCUSATE SODIUM 100 MG CAP PO PRN (17:00)
[2017-02-22] MEDS ORDERED: ALBUTEROL 0.083% (NEB) 2.5 MG/3 ML AMP HHN PRN (17:00)
[2017-02-22] MEDS ORDERED: BISACODYL 10 MG SUPP PR PRN (17:00)
[2017-02-22] MEDS: [UNRECOGNIZED DRUG - REMARK] XX SCH (17:30)
[2017-02-22] MEDS ORDERED: GLUCAGON 1 MG INJ IM PRN (18:00)
[2017-02-22] MEDS ORDERED: ZINC SULFATE 220 MG CAP GTB PRN (18:00)
[2017-02-22] MEDS ORDERED: GLUCOSE GEL 15 GRAM TUBE PO PRN ×2 (18:00)
[2017-02-22] MEDS ORDERED: GLUCOSE GEL 15 GRAM TUBE BUCCAL PRN (18:00)
[2017-02-22 18:09] VITALS: BP 132/58; PULSE 79; RESP 18
[2017-02-22 18:33] VITALS: Ht 154.9 cm; Wt 62.5 kg
[2017-02-22] MEDS ORDERED: NA POLYST SULFON 15 GM/60 ML BTL NGT PRN (19:00)
[2017-02-22 19:27] VITALS: BP 111/53; RESP 21
[2017-02-22 19:45] LABS: CALCIUM 9.5 mg/dl (8.4-10.2)
[2017-02-22 19:48] LABS: POTASSIUM 6.6 mmol/L (3.5-5.1)
[2017-02-22] MEDS ORDERED: PENDING SANTYL ORDER FOR WOUND CARE XX PRN (20:00)
[2017-02-22 20:03] VITALS: PULSE 75
[2017-02-22] MEDS: TRIMETHOPRIM/SULFAMETHOX (DS) TAB PO SCH (20:14)
[2017-02-22] MEDS: APIXABAN 5 MG TABLET PO SCH (20:14)
[2017-02-22] MEDS: MONTELUKAST 10 MG TAB GTB SCH (20:14)
[2017-02-22] MEDS: METHADONE 10 MG TAB PEG PRN (20:15)
[2017-02-22] MEDS: INSULIN ASPART [NOVOLOG] 3 ML PEN SC SCH (20:15)
[2017-02-22] MEDS ORDERED: TIGECYCLINE 100 MG in SOD CHLORIDE 0.9% 100 ML IVPB SCH (21:00)
[2017-02-22] MEDS: NPH, HUMAN INSULIN ISOPHANE 3ML VIAL SC SCH (21:19)
[2017-02-22 23:40] VITALS: BP 125/58; RESP 22
[2017-02-23] VITALS (11 sets, daily range): BP systolic 126–150; BP diastolic 56–60; PULSE 68–96; RESP 18–22
[2017-02-23] MEDS: INSULIN ASPART [NOVOLOG] 3 ML PEN SC SCH ×6 (01:00→21:01)
[2017-02-23] MEDS: [UNRECOGNIZED DRUG - REMARK] XX SCH (01:30)
[2017-02-23] MEDS: ACCU-CHEK XX SCH (02:00)
[2017-02-23] MEDS ORDERED: COLLAGENASE 30 GM TUBE TOP PRN (07:00)
[2017-02-23 08:11] LABS: BASOPHIL # 0.1 10^3/ul (0.0-0.1); BASOPHILS % 0.5 % (0.0-2.0); EOSINOPHILS # 0.2 10^3/ul (0.0-0.5); EOSINOPHILS % 1.1 % (0.0-7.0); HEMATOCRIT 30.9 % (37.0-47.0); HEMOGLOBIN 9.6 g/dl (12.0-16.0); LYMPHOCYTES # 2.2 10^3/ul (0.8-2.9); LYMPHOCYTES % 12.9 % (15.0-51.0); MEAN CORPUSCULAR HEMOGLOBIN 27.8 pg (29.0-33.0); MEAN CORPUSCULAR HGB CONC 31.1 g/dl (32.0-37.0); MEAN CORPUSCULAR VOLUME 89.6 fl (82.0-101.0); MEAN PLATELET VOLUME 9.7 fl (7.4-10.4); MONOCYTE # 1.4 10^3/ul (0.3-0.9); MONOCYTES % 8.3 % (0.0-11.0); NEUTROPHIL # 12.7 10^3/ul (1.6-7.5); NEUTROPHILS % 76.4 % (39.0-77.0); PLATELET COUNT 367 10^3/UL (140-415); RED BLOOD COUNT 3.45 10^6/ul (4.20-5.40); RED CELL DISTRIBUTION WIDTH 19.2 % (11.5-14.5); WHITE BLOOD COUNT 16.7 10^3/ul (4.8-10.8)
[2017-02-23] MEDS: NPH, HUMAN INSULIN ISOPHANE 3ML VIAL SC SCH ×2 (08:24→21:01)
[2017-02-23] MEDS: TRIMETHOPRIM/SULFAMETHOX (DS) TAB PO SCH ×2 (08:31→20:38)
[2017-02-23] MEDS: FERROUS SULFATE 60 MG/ML 5ML CUP GTB SCH (08:31)
[2017-02-23] MEDS: ASCORBIC ACID 500 MG TAB GTB SCH (08:33)
[2017-02-23] MEDS: MULTIVITAMINS THERAPEUTIC TAB GTB SCH (08:33)
[2017-02-23] MEDS: APIXABAN 5 MG TABLET PO SCH ×2 (08:33→20:35)
[2017-02-23] MEDS: AMLODIPINE 5 MG TAB GTB SCH (08:34)
[2017-02-23 08:35] LABS: ALBUMIN 2.4 g/dl (3.3-4.9); ALBUMIN/GLOBULIN RATIO 0.6; BILIRUBIN,INDIRECT 0.2 mg/dl (0-1.1); BILIRUBIN,TOTAL 0.2 mg/dl (0.2-1.3); CALCIUM 9.2 mg/dl (8.4-10.2); CREATININE 0.99 mg/dl (0.44-1.00); POTASSIUM 5.6 mmol/L (3.5-5.1); TOTAL PROTEIN 6.4 g/dl (6.1-8.1)
[2017-02-23 08:50] LABS: ADD UMIC YES; UR ASCORBIC ACID 40 mg/dL (NEGATIVE); UR BILIRUBIN (Dip) NEGATIVE (NEGATIVE); UR BLOOD (Dip) 1+ mg/dL (NEGATIVE); UR CLARITY SLIGHTLY CLOUDY (CLEAR); UR COLOR YELLOW (YELLOW); UR GLUCOSE (Dip) NEGATIVE (NEGATIVE); UR KETONES (Dip) NEGATIVE (NEGATIVE); UR LEUKOCYTE ESTERASE (Dip) 2+ Leu/ul (NEGATIVE); UR NITRITE (Dip) NEGATIVE (NEGATIVE); UR RBC 111 /HPF (0-5); UR SPECIFIC GRAVITY (Dip) 1.017 (1.003-1.030); UR TOTAL PROTEIN (Dip) 1+ mg/dl (NEGATIVE); UR UROBILINOGEN (Dip) NEGATIVE (NEGATIVE)
[2017-02-23] MEDS ORDERED: ZINC SULFATE 220 MG CAP GTB SCH (09:00)
--- NOTE | 2017-02-23 10:45 | CONS ---
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 will get repeat sacral wound cx from the picture it looks like some early skin devascularization around the wound wound care consult is pending continue with tigecycline and bactrim check ESR, CRP 2) hyperkalemia bactrim can cause this no sign of renal dysfunction will lower the dose of bactrim to 1 DS BID potassium is improved today 3) PVD 4) DM 5) DVT to LUE 6) leukocytosis will get urine cx c.dif was negative repeat wound cx tigecycline can cause some leukocytosis Problems: Consultation Date/Type/Reason Admit Date/Time Feb 22, 2017 at 15:13 Date of Consultation: Feb 23, 2017 Type of Consultation: ID Hx of Present Illness spoke to family member pt has semi-soft stool but not frequent no cough or SOB no V she has some abd pain though to RLQ pt was admitted due to hyperkalemia Past Medical History see prior admission Social History Smoking Status: Never smoker Exam/Review of Systems Vital Signs Vitals Vital Signs Date Time Temp Pulse Resp B/P Pulse Ox O2 Delivery O2 Flow Rate FiO2 02/23/17 08:14 96 02/23/17 07:21 98.3 18 128/60 99 02/23/17 02:37 2.0 02/22/17 21:00 Nasal Cannula Exam Constitutional: alert, oriented Head: normocephalic ENMT: mucosa pink and moist Respiratory: clear to auscultation Cardiovascular: regular rate and rhythm Gastrointestinal: other (mild RLQ tenderness), soft Extremities: other (R BKA, 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) Results Result Diagram: 02/23/17 0708 02/23/17 0708 Results 24 hrs Laboratory Tests Test 02/22/17 12:55 02/22/17 13:35 02/22/17 14:28 02/22/17 14:45 White Blood Count 20.2 #H Red Blood Count 3.53 L Hemoglobin 10.4 L Hematocrit 30.9 L Mean Corpuscular Volume 87.5 Mean Corpuscular Hemoglobin 29.5 Mean Corpuscular Hemoglobin Concent 33.7 Red Cell Distribution Width 18.4 H Platelet Count 366 Mean Platelet Volume 9.1 Neutrophils % 66.7 Lymphocytes % 21.8 Monocytes % 8.1 Eosinophils % 2.1 Basophils % 0.4 Nucleated Red Blood Cells % 0.0 Neutrophils # 13.5 H Lymphocytes # 4.4 H Monocytes # 1.6 H Eosinophils # 0.4 Basophils # 0.1 Nucleated Red Blood Cells # 0.0 Sodium Level 126 L Potassium Level 7.0 *H Chloride Level 98 Carbon Dioxide Level 23 Anion Gap 12 Blood Urea Nitrogen 48 H Creatinine 1.06 H Glucose Level 143 Calcium Level 9.3 Total Bilirubin 0.1 L Direct Bilirubin 0.00 Indirect Bilirubin 0.1 Aspartate Amino Transf (AST/SGOT) 33 Alanine Aminotransferase (ALT/SGPT) 44 Alkaline Phosphatase 234 H Troponin I < 0.012 Total Protein 6.9 Albumin 2.6 L Globulin 4.30 H Albumin/Globulin Ratio 0.60 Free Thyroxine Index 2.30 Thyroxine (T4) 4.6 L Triiodothyronine (T3) Uptake 49.9 H Random Cortisol 22.1 Lactic Acid Level 1.5 2.1 H Bedside Glucose 84 Test 02/22/17 15:27 02/22/17 17:35 02/22/17 19:06 02/22/17 20:12 Bedside Glucose 116 102 94 Sodium Level 131 L Potassium Level 6.6 *H Chloride Level 102 Carbon Dioxide Level 25 Anion Gap 11 Blood Urea Nitrogen 42 H Creatinine 1.00 Glucose Level 86 # Lactic Acid Level 1.7 Calcium Level 9.5 Test 02/23/17 01:22 02/23/17 05:57 02/23/17 07:08 02/23/17 07:35 Bedside Glucose 93 114 167 White Blood Count 16.7 H Red Blood Count 3.45 L Hemoglobin 9.6 L Hematocrit 30.9 L Mean Corpuscular Volume 89.6 Mean Corpuscular Hemoglobin 27.8 L Mean Corpuscular Hemoglobin Concent 31.1 L Red Cell Distribution Width 19.2 H Platelet Count 367 Mean Platelet Volume 9.7 Neutrophils % 76.4 Lymphocytes % 12.9 L Monocytes % 8.3 Eosinophils % 1.1 Basophils % 0.5 Nucleated Red Blood Cells % 0.0 Neutrophils # 12.7 H Lymphocytes # 2.2 Monocytes # 1.4 H Eosinophils # 0.2 Basophils # 0.1 Nucleated Red Blood Cells # 0.0 Sodium Level 136 Potassium Level 5.6 H Chloride Level 108 Carbon Dioxide Level 25 Anion Gap 9 Blood Urea Nitrogen 36 H Creatinine 0.99 Glucose Level 154 Calcium Level 9.2 Total Bilirubin 0.2 Direct Bilirubin 0.00 Indirect Bilirubin 0.2 Aspartate Amino Transf (AST/SGOT) 80 H Alanine Aminotransferase (ALT/SGPT) 50 Alkaline Phosphatase 217 H Total Protein 6.4 Albumin 2.4 L Globulin 4.00 H Albumin/Globulin Ratio 0.60 Test 02/23/17 08:00 Urine Color YELLOW Urine Clarity SLIGHTLY CLOUDY A Urine pH 6.0 Urine Specific [place] 1.017 Urine Ketones NEGATIVE Urine Nitrite NEGATIVE Urine Bilirubin NEGATIVE Urine Urobilinogen NEGATIVE Urine Leukocyte Esterase 2+ H Urine Microscopic RBC 111 H Urine Microscopic WBC 46 H Urine Hemoglobin 1+ H Urine Glucose NEGATIVE Urine Total Protein 1+ H Medications Medications Current Medications Sodium Chloride (NS) 1,000 ml @ 20 mls/hr Q24H IV Last administered on 21:21; Admin Dose 20 MLS/HR; Start 02/22/17 at 16:21 Ondansetron HCl (Zofran Tab) 4 mg Q6H PRN PO NAUSEA AND/OR VOMITING; Start 02/22/17 at 16:30 Acetaminophen (Tylenol Tab) 650 mg Q6H PRN PEG PAIN LEVEL 1-3 OR FEVER; Start 02/22/17 at 16:30 Acetaminophen/ Hydrocodone Bitart ([place] (5/325)) 0.5 tab Q8 PRN PO PAIN LEVEL 4-6 Last administered on 02/23/17 08:35; Admin Dose 0.5 TAB; Start 02/22/17 at 16:30 Zolpidem Tartrate (Ambien) 5 mg QHS PRN PEG INSOMNIA; Start 02/22/17 at 16:30 Trimethoprim/ Sulfamethoxazole (Bactrim (Ds)) 1 tab BID PO Last administered on 02/23/17 08:31; Admin Dose 1 TAB; Start 02/22/17 at 21:00 Methadone HCl (Methadone) 10 mg HS PRN PEG pain Last administered on 02/22/17 20:15; Admin Dose 10 MG; Start 02/22/17 at 16:30 Amlodipine Besylate (Norvasc) 5 mg DAILY GTB Last administered on 02/23/17 08: 34; Admin Dose 5 MG; Start 02/23/17 at 09:00 Ascorbic Acid (Vitamin C) 500 mg DAILY GTB Last administered on 02/23/17 08:33 ; Admin Dose 500 MG; Start 02/23/17 at 09:00 Bisacodyl (Dulcolax Supp) 10 mg DAILY PRN [place] CONSTIPATION; Start 02/22/17 at 17 :00 Docusate Sodium (Colace) 100 mg BID PRN PO CONSTIPATION; Start 02/22/17 at 17: 00 Ferrous Sulfate (Feosol Liquid Cup) 330 mg DAILY GTB Last administered on 08:31; Admin Dose 330 MG; Start 02/23/17 at 09:00 Magnesium Hydroxide (Milk Of Mag) 30 ml QHS PRN GTB CONSTIPATION; Start at 17:00 Montelukast Sodium (Singulair) 10 mg QHS GTB Last administered on 02/22/17 20: 14; Admin Dose 10 MG; Start 02/22/17 at 21:00 Multivitamins Therapeutic (Theragran) 1 tab DAILY GTB Last administered on 02/23 08:33; Admin Dose 1 TAB; Start 02/23/17 at 09:00 Apixaban (Eliquis) 5 mg BID PO Last administered on 02/23/17 08:33; Admin Dose 5 MG; Start 02/22/17 at 21:00 Insulin Human NPH (Humulin N) 10 unit BID@08,20 SC Last administered on 08:24; Admin Dose 10 UNIT; Start 02/22/17 at 20:00 Zinc Sulfate (Zinc Sulfate) 220 mg PRN PRN GTB K>6.0 Last administered on 00:35; Admin Dose 220 MG; Start 02/22/17 at 18:00 Sodium Polystyrene Sulfonate (Kayexalate) 30 gm ONCE PRN NGT K>6.0 Last administered on 02/23/17 00:35; Admin Dose 30 GM; Start 02/22/17 at 19:00; Stop 02/23/17 at 23:45 Diagnostic Test (Pha) (Accu-Chek) 1 ea 02 XX Last administered on 02/23/17 02: 00; Admin Dose 1 EA; Start 02/23/17 at 02:00 Insulin Aspart (Novolog Insulin Pen) NOVOLOG *MILD* ALGORI... Q4 SC Last administered on 02/23/17t 08:28; Admin Dose 1 UNIT; Start 02/22/17 at 21:00 Miscellaneous Information 1 ea NOTE XX ; Start 02/22/17 at 18:00 Glucose (Glutose) 15 gm Q15M PRN PO DECREASED GLUCOSE; Start 02/22/17 at 18:00 Glucose (Glutose) 22.5 gm Q15M PRN PO DECREASED GLUCOSE; Start 02/22/17 at 18: 00 Dextrose (D50w Syringe) 25 ml Q15M PRN IV DECREASED GLUCOSE; Start 02/22/17 at 18:00 Dextrose (D50w Syringe) 50 ml Q15M PRN IV DECREASED GLUCOSE; Start 02/22/17 at 18:00 Glucagon (Glucagen) 1 mg Q15M PRN IM DECREASED GLUCOSE; Start 02/22/17 at 18:00 Glucose (Glutose) 15 gm Q15M PRN BUCCAL DECREASED GLUCOSE; Start 02/22/17 at 18 :00 Miscellaneous Information (Pending [facility] Order For Wound Care) This patient jean baptiste... PRN PRN XX WOUND CARE; Start 02/22/17 at 20:00 Clonidine (Catapres) 0.1 mg Q6 PRN GTB ELEVATED BLOOD PRESSURE; Start 02/23/17 at 07:00 Collagenase 1 applic 1 applic PRN PRN TOP PRN; Start 02/23/17 at 07:00 Tigecycline/ Sodium Chloride (Tygacil/NS) 100 ml @ 200 mls/hr Q12 IVPB ; Start 02/23/17 at 09:00 ANTHONY WOODARD MD Feb 23, 2017 10:45
[2017-02-23] MEDS: TIGECYCLINE 50 MG in SOD CHLORIDE 0.9% 100 ML IVPB SCH ×2 (10:50→20:39)
[2017-02-23] MEDS ORDERED: HYDROCODONE/APAP (5/325) TAB PO PRN (13:15)
--- NOTE | 2017-02-23 13:26 | PN ---
Date/Time of Note Date/Time of Note DATE: 02/23/17 TIME: 13:22 Assessment/Plan VTE Prophylaxis VTE Prophylaxis Intervention: other Lines/Catheters IV Catheter Type (from Nrsg): PICC Line Central line still needed: Yes Urinary Cath still in place: Yes Reason Cath still needed: skin wounds contaminated by urine Assessment/Plan Assessment/Plan hyperkalemia- kayex given. bactrim has s.e. of low Na and high K. since pt requires this med ID reports to decrease the med to 1 tab bid. will watch levels. 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 loose stool. rectal tube prn. c.diff check dm- been stable left UE dvt. old. will restart eliquis. was held due to anemia. pneumonia on last hosp- stable. resolved. Subjective 24 Hr Interval Summary Free Text/Dictation pt back due to elevated K. denies any new prob. no prob with mentation or pain. no sob. denies f/c/n/v. coming in from snf Exam/Review of Systems Vital Signs Vitals Vital Signs Date Time Temp Pulse Resp B/P Pulse Ox O2 Delivery O2 Flow Rate FiO2 02/23/17 12:12 84 02/23/17 11:21 98.3 18 133/58 100 02/23/17 02:37 2.0 02/22/17 21:00 Nasal Cannula Results Result Diagram: 02/23/17 0708 02/23/17 0708 Results 24 hrs Laboratory Tests Test 02/22/17 13:35 02/22/17 14:28 02/22/17 14:45 02/22/17 15:27 Lactic Acid Level 1.5 2.1 H Bedside Glucose 84 116 Test 02/22/17 17:35 02/22/17 19:06 02/22/17 20:12 02/23/17 01:22 Bedside Glucose 102 94 93 Sodium Level 131 L Potassium Level 6.6 *H Chloride Level 102 Carbon Dioxide Level 25 Anion Gap 11 Blood Urea Nitrogen 42 H Creatinine 1.00 Glucose Level 86 # Lactic Acid Level 1.7 Calcium Level 9.5 Test 02/23/17 05:57 02/23/17 07:08 02/23/17 07:35 02/23/17 08:00 Bedside Glucose 114 167 White Blood Count 16.7 H Red Blood Count 3.45 L Hemoglobin 9.6 L Hematocrit 30.9 L Mean Corpuscular Volume 89.6 Mean Corpuscular Hemoglobin 27.8 L Mean Corpuscular Hemoglobin Concent 31.1 L Red Cell Distribution Width 19.2 H Platelet Count 367 Mean Platelet Volume 9.7 Neutrophils % 76.4 Lymphocytes % 12.9 L Monocytes % 8.3 Eosinophils % 1.1 Basophils % 0.5 Nucleated Red Blood Cells % 0.0 Neutrophils # 12.7 H Lymphocytes # 2.2 Monocytes # 1.4 H Eosinophils # 0.2 Basophils # 0.1 Nucleated Red Blood Cells # 0.0 Sodium Level 136 Potassium Level 5.6 H Chloride Level 108 Carbon Dioxide Level 25 Anion Gap 9 Blood Urea Nitrogen 36 H Creatinine 0.99 Glucose Level 154 Calcium Level 9.2 Total Bilirubin 0.2 Direct Bilirubin 0.00 Indirect Bilirubin 0.2 Aspartate Amino Transf (AST/SGOT) 80 H Alanine Aminotransferase (ALT/SGPT) 50 Alkaline Phosphatase 217 H Total Protein 6.4 Albumin 2.4 L Globulin 4.00 H Albumin/Globulin Ratio 0.60 Urine Color YELLOW Urine Clarity SLIGHTLY CLOUDY A Urine pH 6.0 Urine Specific [place] 1.017 Urine Ketones NEGATIVE Urine Nitrite NEGATIVE Urine Bilirubin NEGATIVE Urine Urobilinogen NEGATIVE Urine Leukocyte Esterase 2+ H Urine Microscopic RBC 111 H Urine Microscopic WBC 46 H Urine Hemoglobin 1+ H Urine Glucose NEGATIVE Urine Total Protein 1+ H Medications Medications Current Medications Sodium Chloride (NS) 1,000 ml @ 20 mls/hr Q24H IV Last administered on 21:21; Admin Dose 20 MLS/HR; Start 02/22/17 at 16:21 Ondansetron HCl (Zofran Tab) 4 mg Q6H PRN PO NAUSEA AND/OR VOMITING; Start 02/22/17 at 16:30 Acetaminophen (Tylenol Tab) 650 mg Q6H PRN PEG PAIN LEVEL 1-3 OR FEVER; Start 02/22/17 at 16:30 Zolpidem Tartrate (Ambien) 5 mg QHS PRN PEG INSOMNIA; Start 02/22/17 at 16:30 Trimethoprim/ Sulfamethoxazole (Bactrim (Ds)) 1 tab BID PO Last administered on 02/23/17 08:31; Admin Dose 1 TAB; Start 02/22/17 at 21:00 Methadone HCl (Methadone) 10 mg HS PRN PEG pain Last administered on 02/22/17 20:15; Admin Dose 10 MG; Start 02/22/17 at 16:30 Amlodipine Besylate (Norvasc) 5 mg DAILY GTB Last administered on 02/23/17 08: 34; Admin Dose 5 MG; Start 02/23/17 at 09:00 Ascorbic Acid (Vitamin C) 500 mg DAILY GTB Last administered on 02/23/17 08:33 ; Admin Dose 500 MG; Start 02/23/17 at 09:00 Bisacodyl (Dulcolax Supp) 10 mg DAILY PRN [place] CONSTIPATION; Start 02/22/17 at 17 :00 Docusate Sodium (Colace) 100 mg BID PRN PO CONSTIPATION; Start 02/22/17 at 17: 00 Ferrous Sulfate (Feosol Liquid Cup) 330 mg DAILY GTB Last administered on 08:31; Admin Dose 330 MG; Start 02/23/17 at 09:00 Magnesium Hydroxide (Milk Of Mag) 30 ml QHS PRN GTB CONSTIPATION; Start at 17:00 Montelukast Sodium (Singulair) 10 mg QHS GTB Last administered on 02/22/17 20: 14; Admin Dose 10 MG; Start 02/22/17 at 21:00 Multivitamins Therapeutic (Theragran) 1 tab DAILY GTB Last administered on 02/23 08:33; Admin Dose 1 TAB; Start 02/23/17 at 09:00 Apixaban (Eliquis) 5 mg BID PO Last administered on 02/23/17 08:33; Admin Dose 5 MG; Start 02/22/17 at 21:00 Insulin Human NPH (Humulin N) 10 unit BID@08,20 SC Last administered on 08:24; Admin Dose 10 UNIT; Start 02/22/17 at 20:00 Zinc Sulfate (Zinc Sulfate) 220 mg PRN PRN GTB K>6.0 Last administered on 00:35; Admin Dose 220 MG; Start 02/22/17 at 18:00 Sodium Polystyrene Sulfonate (Kayexalate) 30 gm ONCE PRN NGT K>6.0 Last administered on 02/23/17 00:35; Admin Dose 30 GM; Start 02/22/17 at 19:00; Stop 02/23/17 at 23:45 Diagnostic Test (Pha) (Accu-Chek) 1 ea 02 XX Last administered on 02/23/17 02: 00; Admin Dose 1 EA; Start 02/23/17 at 02:00 Insulin Aspart (Novolog Insulin Pen) NOVOLOG *MILD* ALGORI... Q4 SC Last administered on 02/23/17 08:28; Admin Dose 1 UNIT; Start 02/22/17 at 21:00 Miscellaneous Information 1 ea NOTE XX ; Start 02/22/17 at 18:00 Glucose (Glutose) 15 gm Q15M PRN PO DECREASED GLUCOSE; Start 02/22/17 at 18:00 Glucose (Glutose) 22.5 gm Q15M PRN PO DECREASED GLUCOSE; Start 02/22/17 at 18: 00 Dextrose (D50w Syringe) 25 ml Q15M PRN IV DECREASED GLUCOSE; Start 02/22/17 at 18:00 Dextrose (D50w Syringe) 50 ml Q15M PRN IV DECREASED GLUCOSE; Start 02/22/17 at 18:00 Glucagon (Glucagen) 1 mg Q15M PRN IM DECREASED GLUCOSE; Start 02/22/17 at 18:00 Glucose (Glutose) 15 gm Q15M PRN BUCCAL DECREASED GLUCOSE; Start 02/22/17 at 18 :00 [facility] This patient jean baptiste... PRN PRN XX WOUND CARE; Start 02/22/17 at 20:00 Clonidine (Catapres) 0.1 mg Q6 PRN GTB ELEVATED BLOOD PRESSURE; Start 02/23/17 at 07:00 Collagenase 1 applic 1 applic PRN PRN TOP PRN; Start 02/23/17 at 07:00 Tigecycline/ Sodium Chloride (Tygacil/NS) 100 ml @ 200 mls/hr Q12 IVPB Last administered on 02/23/17 10:50; Admin Dose 200 MLS/HR; Start 02/23/17 at 09:00 Acetaminophen/ Hydrocodone Bitart ([place] (5/325)) 1 tab Q4 PRN PO PAIN LEVEL 4- 6; Start 02/23/17 at 13:15 RIDGE MATTHEWS MD Feb 23, 2017 13:26
[2017-02-23] MEDS ORDERED: NA POLYST SULFON 15 GM/60 ML BTL GTB ONE (17:00)
[2017-02-23] MEDS: COLLAGENASE 30 GM TUBE TOP SCH (17:20)
[2017-02-23] MEDS: MONTELUKAST 10 MG TAB GTB SCH (20:35)
[2017-02-23] MEDS: METHADONE 10 MG TAB PEG PRN (20:36)
[2017-02-24] VITALS (12 sets, daily range): BP systolic 130–152; BP diastolic 56–81; PULSE 66–81; RESP 17–22
[2017-02-24] MEDS: INSULIN ASPART [NOVOLOG] 3 ML PEN SC SCH ×5 (01:00→17:10)
[2017-02-24] MEDS: ACCU-CHEK XX SCH (02:00)
[2017-02-24 07:24] LABS: ABNORMAL IP MESSAGE 1; BASOPHIL # 0.1 10^3/ul (0.0-0.1); BASOPHILS % 0.6 % (0.0-2.0); EOSINOPHILS # 0.7 10^3/ul (0.0-0.5); EOSINOPHILS % 3.8 % (0.0-7.0); HEMATOCRIT 29.9 % (37.0-47.0); HEMOGLOBIN 9.5 g/dl (12.0-16.0); LYMPHOCYTES # 3.6 10^3/ul (0.8-2.9); LYMPHOCYTES % 19.7 % (15.0-51.0); MEAN CORPUSCULAR HEMOGLOBIN 29.1 pg (29.0-33.0); MEAN CORPUSCULAR HGB CONC 31.8 g/dl (32.0-37.0); MEAN CORPUSCULAR VOLUME 91.7 fl (82.0-101.0); MEAN PLATELET VOLUME 9.4 fl (7.4-10.4); MONOCYTE # 1.9 10^3/ul (0.3-0.9); MONOCYTES % 10.5 % (0.0-11.0); NEUTROPHIL # 11.6 10^3/ul (1.6-7.5); NEUTROPHILS % 64.5 % (39.0-77.0); PLATELET COUNT 363 10^3/UL (140-415); RED BLOOD COUNT 3.26 10^6/ul (4.20-5.40)
[2017-02-24 07:29] LABS: POSITIVE DIFF @See below
[2017-02-24 08:00] LABS: CREATININE 0.79 mg/dl (0.44-1.00); POTASSIUM 4.5 mmol/L (3.5-5.1)
[2017-02-24] MEDS: NPH, HUMAN INSULIN ISOPHANE 3ML VIAL SC SCH ×2 (08:46→21:08)
[2017-02-24] MEDS: FERROUS SULFATE 60 MG/ML 5ML CUP GTB SCH (09:12)
[2017-02-24] MEDS: TRIMETHOPRIM/SULFAMETHOX (DS) TAB PO SCH ×2 (09:13→20:54)
[2017-02-24] MEDS: MULTIVITAMINS THERAPEUTIC TAB GTB SCH (09:13)
[2017-02-24] MEDS: AMLODIPINE 5 MG TAB GTB SCH (09:14)
[2017-02-24] MEDS: APIXABAN 5 MG TABLET PO SCH ×2 (09:14→20:54)
[2017-02-24] MEDS: ASCORBIC ACID 500 MG TAB GTB SCH (09:14)
[2017-02-24] MEDS: TIGECYCLINE 50 MG in SOD CHLORIDE 0.9% 100 ML IVPB SCH ×2 (09:17→20:55)
[2017-02-24] MEDS: COLLAGENASE 30 GM TUBE TOP SCH (09:19)
--- NOTE | 2017-02-24 09:22 | CONS ---
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 will get repeat sacral wound cx from the picture it looks like some early skin devascularization around the wound wound care consult is pending continue with tigecycline and bactrim check ESR, CRP 02/24 - stable, wound cx ordered yesterday but micro lab has not received it, nurse informed to get wound cx ESR is improved, CRP slightly increased continue tigecycline/bactrim thru 03/12 2) hyperkalemia bactrim can cause this no sign of renal dysfunction will lower the dose of bactrim to 1 DS BID potassium is improved today 02/24 - resolved 3) PVD 4) DM 5) DVT to LUE 6) leukocytosis will get urine cx c.dif was negative repeat wound cx tigecycline can cause some leukocytosis 02/24 - urine cx is NGTD wound cx is pending neg blood cx to date Problems: Consultation Date/Type/Reason Admit Date/Time Feb 22, 2017 at 15:13 Initial Consult Date 02/23/17 Type of Consultation: ID [id number] HR Interval Summary Free Text/Dictation no new changes pt awake and talking but just in mal[place]ian she denies N, V, abd pain Exam/Review of Systems Vital Signs Vitals Vital Signs Date Time Temp Pulse Resp B/P Pulse Ox O2 Delivery O2 Flow Rate FiO2 02/24/17 08:00 78 02/24/17 07:40 98.2 17 143/63 100 02/23/17 21:32 2.0 02/23/17 20:15 Nasal Cannula Intake and Output 02/23/17 02/23/17 02/24/17 15:00 23:00 07:00 Intake Total 100 ml 920 ml Output Total 1000 ml Balance 100 ml -80 ml Exam Constitutional: alert Eyes: nl sclera ENMT: mucosa pink and moist Respiratory: clear to auscultation Cardiovascular: regular rate and rhythm Gastrointestinal: non-tender, soft Results Result Diagram: 02/24/17 0632 02/24/17 0632 Results 24 hrs Laboratory Tests Test 02/23/17 13:58 02/23/17 17:17 02/23/17 20:33 02/24/17 01:54 Bedside Glucose 171 197 191 112 Test 02/24/17 06:06 02/24/17 06:32 02/24/17 08:41 Bedside Glucose 104 127 White Blood Count 18.0 H Red Blood Count 3.26 L Hemoglobin 9.5 L Hematocrit 29.9 L Mean Corpuscular Volume 91.7 Mean Corpuscular Hemoglobin 29.1 Mean Corpuscular Hemoglobin Concent 31.8 L Red Cell Distribution Width 19.0 H Platelet Count 363 Mean Platelet Volume 9.4 Neutrophils % 64.5 Lymphocytes % 19.7 Monocytes % 10.5 Eosinophils % 3.8 Basophils % 0.6 Nucleated Red Blood Cells % 0.0 Neutrophils # 11.6 H Lymphocytes # 3.6 H Monocytes # 1.9 H Eosinophils # 0.7 H Basophils # 0.1 Nucleated Red Blood Cells # 0.0 Sodium Level 137 Potassium Level 4.5 Chloride Level 107 Carbon Dioxide Level 25 Anion Gap 10 Blood Urea Nitrogen 37 H Creatinine 0.79 Glucose Level 103 # Calcium Level 9.0 C-Reactive Protein 5.0 H Medications Medications Current Medications Ondansetron HCl (Zofran Tab) 4 mg Q6H PRN PO NAUSEA AND/OR VOMITING; Start 02/22/17 at 16:30 Acetaminophen (Tylenol Tab) 650 mg Q6H PRN PEG PAIN LEVEL 1-3 OR FEVER Last administered on 02/23/17 18:09; Admin Dose 650 MG; Start 02/22/17 at 16:30 Zolpidem Tartrate (Ambien) 5 mg QHS PRN PEG INSOMNIA; Start 02/22/17 at 16:30 Trimethoprim/ Sulfamethoxazole (Bactrim (Ds)) 1 tab BID PO Last administered on 02/23/17 20:38; Admin Dose 1 TAB; Start 02/22/17 at 21:00 Methadone HCl (Methadone) 10 mg HS PRN PEG pain Last administered on 02/23/17 20:36; Admin Dose 10 MG; Start 02/22/17 at 16:30 Amlodipine Besylate (Norvasc) 5 mg DAILY GTB Last administered on 02/23/17 08: 34; Admin Dose 5 MG; Start 02/23/17 at 09:00 Ascorbic Acid (Vitamin C) 500 mg DAILY GTB Last administered on 02/23/17 08:33 ; Admin Dose 500 MG; Start 02/23/17 at 09:00 Bisacodyl (Dulcolax Supp) 10 mg DAILY PRN [place] CONSTIPATION; Start 02/22/17 at 17 :00 Docusate Sodium (Colace) 100 mg BID PRN PO CONSTIPATION; Start 02/22/17 at 17: 00 Ferrous Sulfate (Feosol Liquid Cup) 330 mg DAILY GTB Last administered on 08:31; Admin Dose 330 MG; Start 02/23/17 at 09:00 Magnesium Hydroxide (Milk Of Mag) 30 ml QHS PRN GTB CONSTIPATION; Start at 17:00 Montelukast Sodium (Singulair) 10 mg QHS GTB Last administered on 02/23/17 20: 35; Admin Dose 10 MG; Start 02/22/17 at 21:00 Multivitamins Therapeutic (Theragran) 1 tab DAILY GTB Last administered on 02/23 08:33; Admin Dose 1 TAB; Start 02/23/17 at 09:00 Apixaban (Eliquis) 5 mg BID PO Last administered on 02/23/17 20:35; Admin Dose 5 MG; Start 02/22/17 at 21:00 Insulin Human NPH (Humulin N) 10 unit BID@08,20 SC Last administered on 08:46; Admin Dose 10 UNIT; Start 02/22/17 at 20:00 Zinc Sulfate (Zinc Sulfate) 220 mg PRN PRN GTB K>6.0 Last administered on 00:35; Admin Dose 220 MG; Start 02/22/17 at 18:00 Diagnostic Test (Pha) (Accu-Chek) 1 ea 02 XX Last administered on 02/23/17 02: 00; Admin Dose 1 EA; Start 02/23/17 at 02:00 Insulin Aspart (Novolog Insulin Pen) NOVOLOG *MILD* ALGORI... Q4 SC Last administered on 02/23/17 21:01; Admin Dose 2 UNIT; Start 02/22/17 at 21:00 Miscellaneous Information 1 ea NOTE XX ; Start 02/22/17 at 18:00 Glucose (Glutose) 15 gm Q15M PRN PO DECREASED GLUCOSE; Start 02/22/17 at 18:00 Glucose (Glutose) 22.5 gm Q15M PRN PO DECREASED GLUCOSE; Start 02/22/17 at 18: 00 Dextrose (D50w Syringe) 25 ml Q15M PRN IV DECREASED GLUCOSE; Start 02/22/17 at 18:00 Dextrose (D50w Syringe) 50 ml Q15M PRN IV DECREASED GLUCOSE; Start 02/22/17 at 18:00 Glucagon (Glucagen) 1 mg Q15M PRN IM DECREASED GLUCOSE; Start 02/22/17 at 18:00 Glucose (Glutose) 15 gm Q15M PRN BUCCAL DECREASED GLUCOSE; Start 02/22/17 at 18 :00 Miscellaneous Information (Pending Santyl Order For Wound Care) This patient jean baptiste... PRN PRN XX WOUND CARE; Start 02/22/17 at 20:00 Clonidine (Catapres) 0.1 mg Q6 PRN GTB ELEVATED BLOOD PRESSURE; Start 02/23/17 at 07:00 Collagenase 1 applic 1 applic PRN PRN TOP PRN; Start 02/23/17 at 07:00 Tigecycline/ Sodium Chloride (Tygacil/NS) 100 ml @ 200 mls/hr Q12 IVPB Last administered on 02/23/17 20:39; Admin Dose 200 MLS/HR; Start 02/23/17 at 09:00 Collagenase (Santyl) 1 applic DAILY TOP Last administered on 02/23/17 17:20; Admin Dose 1 APPLIC; Start 02/23/17 at 17:00 Acetaminophen/ Hydrocodone Bitart ([place] (5/325)) 1 tab Q8 PRN PO PAIN LEVEL 4- 6; Start 02/23/17 at 22:00 ANTHONY WOODARD MD Feb 24, 2017 09:22
--- NOTE | 2017-02-24 13:45 | PN ---
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 bactrim has s.e. of low Na and high K. bactrim on lower dose. need to watch tomorrow with K and Na stable then will consider d/ c. 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 loose stool. rectal tube in place. c.diff neg. pt had loose stool prior to kayexalate. kayex was given yesterday. dm- been stable left UE dvt. old. will restart eliquis. was held due to anemia. anemia will repeat epo. been chronic. will decrease fe. pneumonia on last hosp- stable. resolved. Exam/Review of Systems Vital Signs Vitals Vital Signs Date Time Temp Pulse Resp B/P Pulse Ox O2 Delivery O2 Flow Rate FiO2 02/24/17 12:00 75 02/24/17 11:01 98.2 18 132/59 100 02/23/17 21:32 2.0 02/23/17 20:15 Nasal Cannula Intake and Output 02/23/17 02/23/17 02/24/17 15:00 23:00 07:00 Intake Total 100 ml 920 ml Output Total 1000 ml Balance 100 ml -80 ml Results Result Diagram: 02/24/17 0632 02/24/17 0632 Results 24 hrs Laboratory Tests Test 02/23/17 13:58 02/23/17 17:17 02/23/17 20:33 02/24/17 01:54 Bedside Glucose 171 197 191 112 Test 02/24/17 06:06 02/24/17 06:32 02/24/17 06:33 02/24/17 08:41 Bedside Glucose 104 127 White Blood Count 18.0 H Red Blood Count 3.26 L Hemoglobin 9.5 L Hematocrit 29.9 L Mean Corpuscular Volume 91.7 Mean Corpuscular Hemoglobin 29.1 Mean Corpuscular Hemoglobin Concent 31.8 L Red Cell Distribution Width 19.0 H Platelet Count 363 Mean Platelet Volume 9.4 Neutrophils % 64.5 Lymphocytes % 19.7 Monocytes % 10.5 Eosinophils % 3.8 Basophils % 0.6 Nucleated Red Blood Cells % 0.0 Neutrophils # 11.6 H Lymphocytes # 3.6 H Monocytes # 1.9 H Eosinophils # 0.7 H Basophils # 0.1 Nucleated Red Blood Cells # 0.0 Sodium Level 137 Potassium Level 4.5 Chloride Level 107 Carbon Dioxide Level 25 Anion Gap 10 Blood Urea Nitrogen 37 H Creatinine 0.79 Glucose Level 103 # Calcium Level 9.0 C-Reactive Protein 5.0 H Erythrocyte Sedimentation Rate 71 H Test 02/24/17 12:07 Bedside Glucose 136 Medications Medications Current Medications Ondansetron HCl (Zofran Tab) 4 mg Q6H PRN PO NAUSEA AND/OR VOMITING; Start 02/22/17 at 16:30 Acetaminophen (Tylenol Tab) 650 mg Q6H PRN PEG PAIN LEVEL 1-3 OR FEVER Last administered on 02/23/17 18:09; Admin Dose 650 MG; Start 02/22/17 at 16:30 Zolpidem Tartrate (Ambien) 5 mg QHS PRN PEG INSOMNIA; Start 02/22/17 at 16:30 Trimethoprim/ Sulfamethoxazole (Bactrim (Ds)) 1 tab BID PO Last administered on 02/24/17 09:13; Admin Dose 1 TAB; Start 02/22/17 at 21:00 Methadone HCl (Methadone) 10 mg HS PRN PEG pain Last administered on 02/23/17 20:36; Admin Dose 10 MG; Start 02/22/17 at 16:30 Amlodipine Besylate (Norvasc) 5 mg DAILY GTB Last administered on 02/24/17 09: 14; Admin Dose 5 MG; Start 02/23/17 at 09:00 Ascorbic Acid (Vitamin C) 500 mg DAILY GTB Last administered on 02/24/17 09:14 ; Admin Dose 500 MG; Start 02/23/17 at 09:00 Bisacodyl (Dulcolax Supp) 10 mg DAILY PRN [place] CONSTIPATION; Start 02/22/17 at 17 :00 Docusate Sodium (Colace) 100 mg BID PRN PO CONSTIPATION; Start 02/22/17 at 17: 00 Ferrous Sulfate (Feosol Liquid Cup) 330 mg DAILY GTB Last administered on 09:12; Admin Dose 330 MG; Start 02/23/17 at 09:00 Magnesium Hydroxide (Milk Of Mag) 30 ml QHS PRN GTB CONSTIPATION; Start at 17:00 Montelukast Sodium (Singulair) 10 mg QHS GTB Last administered on 02/23/17 20: 35; Admin Dose 10 MG; Start 02/22/17 at 21:00 Multivitamins Therapeutic (Theragran) 1 tab DAILY GTB Last administered on 02/24 09:13; Admin Dose 1 TAB; Start 02/23/17 at 09:00 Apixaban (Eliquis) 5 mg BID PO Last administered on 02/24/17 09:14; Admin Dose 5 MG; Start 02/22/17 at 21:00 Insulin Human NPH (Humulin N) 10 unit BID@08,20 SC Last administered on 08:46; Admin Dose 10 UNIT; Start 02/22/17 at 20:00 Zinc Sulfate (Zinc Sulfate) 220 mg PRN PRN GTB K>6.0 Last administered on 00:35; Admin Dose 220 MG; Start 02/22/17 at 18:00 Diagnostic Test (Pha) (Accu-Chek) 1 ea 02 XX Last administered on 02/23/17 02: 00; Admin Dose 1 EA; Start 02/23/17 at 02:00 Insulin Aspart (Novolog Insulin Pen) NOVOLOG *MILD* ALGORI... Q4 SC Last administered on 02/23/17 21:01; Admin Dose 2 UNIT; Start 02/22/17 at 21:00 Miscellaneous Information 1 ea NOTE XX ; Start 02/22/17 at 18:00 Glucose (Glutose) 15 gm Q15M PRN PO DECREASED GLUCOSE; Start 02/22/17 at 18:00 Glucose (Glutose) 22.5 gm Q15M PRN PO DECREASED GLUCOSE; Start 02/22/17 at 18: 00 Dextrose (D50w Syringe) 25 ml Q15M PRN IV DECREASED GLUCOSE; Start 02/22/17 at 18:00 Dextrose (D50w Syringe) 50 ml Q15M PRN IV DECREASED GLUCOSE; Start 02/22/17 at 18:00 Glucagon (Glucagen) 1 mg Q15M PRN IM DECREASED GLUCOSE; Start 02/22/17 at 18:00 Glucose (Glutose) 15 gm Q15M PRN BUCCAL DECREASED GLUCOSE; Start 02/22/17 at 18 :00 Miscellaneous Information (Pending Santyl Order For Wound Care) This patient jean baptiste... PRN PRN XX WOUND CARE; Start 02/22/17 at 20:00 Clonidine (Catapres) 0.1 mg Q6 PRN GTB ELEVATED BLOOD PRESSURE; Start 02/23/17 at 07:00 Collagenase 1 applic 1 applic PRN PRN TOP PRN; Start 02/23/17 at 07:00 Tigecycline/ Sodium Chloride (Tygacil/NS) 100 ml @ 200 mls/hr Q12 IVPB Last administered on 02/24/17 09:17; Admin Dose 200 MLS/HR; Start 02/23/17 at 09:00 Collagenase (Santyl) 1 applic DAILY TOP Last administered on 02/24/17 09:19; Admin Dose 1 APPLIC; Start 02/23/17 at 17:00 Acetaminophen/ Hydrocodone Bitart ([place] (5/325)) 1 tab Q8 PRN PO PAIN LEVEL 4- 6; Start 02/23/17 at 22:00 RIDGE MATTHEWS MD Feb 24, 2017 13:45
[2017-02-24] MEDS ORDERED: EPOETIN 10000 UNITS/ML (NON ESRD/NON ONCOLOGY) SC ONE (14:00)
[2017-02-24] MEDS: HYDROCODONE/APAP (5/325) TAB PO PRN (15:42)
[2017-02-24] MEDS: MONTELUKAST 10 MG TAB GTB SCH (20:54)
[2017-02-24] MEDS: METHADONE 10 MG TAB PEG PRN (20:54)
[2017-02-25] VITALS (12 sets, daily range): BP systolic 126–153; BP diastolic 52–66; PULSE 62–83; RESP 16–20
[2017-02-25] MEDS: ACCU-CHEK XX SCH (02:00)
[2017-02-25] MEDS: INSULIN ASPART [NOVOLOG] 3 ML PEN SC SCH ×4 (06:00→17:17)
[2017-02-25] MEDS: FERROUS SULFATE 60 MG/ML 5ML CUP GTB SCH (08:28)
[2017-02-25] MEDS: APIXABAN 5 MG TABLET PO SCH ×2 (08:29→21:12)
[2017-02-25] MEDS: TRIMETHOPRIM/SULFAMETHOX (DS) TAB PO SCH ×2 (08:30→21:13)
[2017-02-25] MEDS: MULTIVITAMINS THERAPEUTIC TAB GTB SCH (08:30)
[2017-02-25] MEDS: AMLODIPINE 5 MG TAB GTB SCH (08:30)
[2017-02-25] MEDS: ASCORBIC ACID 500 MG TAB GTB SCH (08:31)
[2017-02-25] MEDS: COLLAGENASE 30 GM TUBE TOP SCH (08:31)
[2017-02-25] MEDS: NPH, HUMAN INSULIN ISOPHANE 3ML VIAL SC SCH ×2 (08:43→21:40)
[2017-02-25] MEDS: TIGECYCLINE 50 MG in SOD CHLORIDE 0.9% 100 ML IVPB SCH ×2 (09:00→21:19)
[2017-02-25 09:05] LABS: ABNORMAL IP MESSAGE 1; BASOPHIL # 0.1 10^3/ul (0.0-0.1); BASOPHILS % 0.6 % (0.0-2.0); EOSINOPHILS # 0.5 10^3/ul (0.0-0.5); EOSINOPHILS % 2.5 % (0.0-7.0); HEMATOCRIT 32.8 % (37.0-47.0); HEMOGLOBIN 10.2 g/dl (12.0-16.0); LYMPHOCYTES # 4.1 10^3/ul (0.8-2.9); MEAN CORPUSCULAR HEMOGLOBIN 28.3 pg (29.0-33.0); MEAN CORPUSCULAR HGB CONC 31.1 g/dl (32.0-37.0); MEAN CORPUSCULAR VOLUME 91.1 fl (82.0-101.0); MEAN PLATELET VOLUME 9.4 fl (7.4-10.4); MONOCYTE # 1.7 10^3/ul (0.3-0.9); MONOCYTES % 8.4 % (0.0-11.0); NEUTROPHIL # 13.8 10^3/ul (1.6-7.5); NEUTROPHILS % 67.8 % (39.0-77.0); PLATELET COUNT 385 10^3/UL (140-415); RED CELL DISTRIBUTION WIDTH 18.7 % (11.5-14.5); WHITE BLOOD COUNT 20.3 10^3/ul (4.8-10.8)
[2017-02-25 09:16] LABS: POSITIVE DIFF @See below
[2017-02-25 09:34] LABS: CREATININE 0.64 mg/dl (0.44-1.00); POTASSIUM 4.7 mmol/L (3.5-5.1)
[2017-02-25] MEDS ORDERED: NA POLYST SULFON 15 GM/60 ML BTL GTB ONE (11:00)
[2017-02-25] MEDS ORDERED: [UNRECOGNIZED DRUG - REMARK] XX SCH (12:00)
--- NOTE | 2017-02-25 13:13 | PN ---
Date/Time of Note Date/Time of Note DATE: 02/25/17 TIME: 13:10 Assessment/Plan VTE Prophylaxis VTE Prophylaxis Intervention: other Lines/Catheters IV Catheter Type (from Nrs): PICC Line Central line still needed: Yes Urinary Cath still in place: Yes Reason Cath still needed: skin wounds contaminated by urine Assessment/Plan Chief Complaint/Hosp Course 02/25 wide awake today, mild stomach pain. 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 hyperkalemia- kayex given. bactrim has s.e. of low Na and high K. bactrim on lower dose. need to watch tomorrow with K and Na stable then will consider d/ c. 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 loose stool. rectal tube in place. c.diff neg. pt had loose stool prior to kayexalate. kayex was given yesterday. since the K cont to rise due to bactrim [probable] will plan on regular kayexalate 2x per week and get bmp 2x per week at the [facility]. bactrim was decreased t 1 tab bid. --cont to use rectal tube. dm- been stable left UE dvt. old. will restart eliquis. was held due to anemia. will cont eliquis at the [facility]. anemia will repeat epo. been chronic. will decrease fe. pneumonia on last hosp- stable. resolved. Exam/Review of Systems Vital Signs Vitals Vital Signs Date Time Temp Pulse Resp B/P Pulse Ox O2 Delivery O2 Flow Rate FiO2 02/25/17 12:20 70 02/25/17 11:36 98.0 20 153/52 100 02/25/17 10:58 Nasal Cannula 2.0 Intake and Output 02/24/17 02/24/17 02/25/17 15:00 23:00 07:00 Intake Total 860 ml 920 ml Output Total 1000 ml 1080 ml Balance -140 ml -160 ml Results Result Diagram: 02/25/17 0808 02/25/17 0808 Results 24 hrs Laboratory Tests Test 02/24/17 16:58 02/24/17 20:58 02/25/17 00:19 02/25/17 06:07 Bedside Glucose 141 154 114 128 Test 02/25/17 08:08 02/25/17 08:18 02/25/17 12:18 White Blood Count 20.3 H Red Blood Count 3.60 L Hemoglobin 10.2 L Hematocrit 32.8 L Mean Corpuscular Volume 91.1 Mean Corpuscular Hemoglobin 28.3 L Mean Corpuscular Hemoglobin Concent 31.1 L Red Cell Distribution Width 18.7 H Platelet Count 385 Mean Platelet Volume 9.4 Neutrophils % 67.8 Lymphocytes % 20.0 Monocytes % 8.4 Eosinophils % 2.5 Basophils % 0.6 Nucleated Red Blood Cells % 0.0 Neutrophils # 13.8 H Lymphocytes # 4.1 H Monocytes # 1.7 H Eosinophils # 0.5 Basophils # 0.1 Nucleated Red Blood Cells # 0.0 Sodium Level 135 Potassium Level 4.7 Chloride Level 106 Carbon Dioxide Level 25 Anion Gap 9 Blood Urea Nitrogen 31 H Creatinine 0.64 Glucose Level 140 Calcium Level 9.0 Bedside Glucose 150 182 Medications Medications Current Medications Ondansetron HCl (Zofran Tab) 4 mg Q6H PRN PO NAUSEA AND/OR VOMITING; Start 02/22/17 at 16:30 Acetaminophen (Tylenol Tab) 650 mg Q6H PRN PEG PAIN LEVEL 1-3 OR FEVER Last administered on 02/23/17 18:09; Admin Dose 650 MG; Start 02/22/17 at 16:30 Zolpidem Tartrate (Ambien) 5 mg QHS PRN PEG INSOMNIA; Start 02/22/17 at 16:30 Trimethoprim/ Sulfamethoxazole (Bactrim (Ds)) 1 tab BID PO Last administered on 02/25/17 08:30; Admin Dose 1 TAB; Start 02/22/17 at 21:00 Methadone HCl (Methadone) 10 mg HS PRN PEG pain Last administered on 02/24/17 20:54; Admin Dose 10 MG; Start 02/22/17 at 16:30 Amlodipine Besylate (Norvasc) 5 mg DAILY GTB Last administered on 02/25/17 08: 30; Admin Dose 5 MG; Start 02/23/17 at 09:00 Ascorbic Acid (Vitamin C) 500 mg DAILY GTB Last administered on 02/25/17 08:31 ; Admin Dose 500 MG; Start 02/23/17 at 09:00 Bisacodyl (Dulcolax Supp) 10 mg DAILY PRN [place] CONSTIPATION; Start 02/22/17 at 17 :00 Docusate Sodium (Colace) 100 mg BID PRN PO CONSTIPATION; Start 02/22/17 at 17: 00 Ferrous Sulfate (Feosol Liquid Cup) 330 mg DAILY GTB Last administered on 08:28; Admin Dose 330 MG; Start 02/23/17 at 09:00 Magnesium Hydroxide (Milk Of Mag) 30 ml QHS PRN GTB CONSTIPATION; Start at 17:00 Montelukast Sodium (Singulair) 10 mg QHS GTB Last administered on 02/24/17 20: 54; Admin Dose 10 MG; Start 02/22/17 at 21:00 Multivitamins Therapeutic (Theragran) 1 tab DAILY GTB Last administered on 02/25 08:30; Admin Dose 1 TAB; Start 02/23/17 at 09:00 Apixaban (Eliquis) 5 mg BID PO Last administered on 02/25/17 08:29; Admin Dose 5 MG; Start 02/22/17 at 21:00 Insulin Human NPH (Humulin N) 10 unit BID@08,20 SC Last administered on 08:43; Admin Dose 10 UNIT; Start 02/22/17 at 20:00 Zinc Sulfate (Zinc Sulfate) 220 mg PRN PRN GTB K>6.0 Last administered on 00:35; Admin Dose 220 MG; Start 02/22/17 at 18:00 Diagnostic Test (Pha) (Accu-Chek) 1 ea 02 XX Last administered on 02/23/17 02: 00; Admin Dose 1 EA; Start 02/23/17 at 02:00 Miscellaneous Information 1 ea NOTE XX ; Start 02/22/17 at 18:00 Glucose (Glutose) 15 gm Q15M PRN PO DECREASED GLUCOSE; Start 02/22/17 at 18:00 Glucose (Glutose) 22.5 gm Q15M PRN PO DECREASED GLUCOSE; Start 02/22/17 at 18: 00 Dextrose (D50w Syringe) 25 ml Q15M PRN IV DECREASED GLUCOSE; Start 02/22/17 at 18:00 Dextrose (D50w Syringe) 50 ml Q15M PRN IV DECREASED GLUCOSE; Start 02/22/17 at 18:00 Glucagon (Glucagen) 1 mg Q15M PRN IM DECREASED GLUCOSE; Start 02/22/17 at 18:00 Glucose (Glutose) 15 gm Q15M PRN BUCCAL DECREASED GLUCOSE; Start 02/22/17 at 18 :00 Miscellaneous Information (Pending Santyl Order For Wound Care) This patient jean baptiste... PRN PRN XX WOUND CARE; Start 02/22/17 at 20:00 Clonidine (Catapres) 0.1 mg Q6 PRN GTB ELEVATED BLOOD PRESSURE; Start 02/23/17 at 07:00 Collagenase 1 applic 1 applic PRN PRN TOP PRN; Start 02/23/17 at 07:00 Tigecycline/ Sodium Chloride (Tygacil/NS) 100 ml @ 200 mls/hr Q12 IVPB Last administered on 02/25/17 09:00; Admin Dose 200 MLS/HR; Start 02/23/17 at 09:00 Collagenase (Santyl) 1 applic DAILY TOP Last administered on 02/25/17 08:31; Admin Dose 1 APPLIC; Start 02/23/17 at 17:00 Acetaminophen/ Hydrocodone Bitart ([place] (5/325)) 1 tab Q8 PRN PO PAIN LEVEL 4- 6 Last administered on 02/24/17 15:42; Admin Dose 1 TAB; Start 02/23/17 at 22: 00 Insulin Aspart (Novolog Insulin Pen) NOVOLOG *MILD* ALGORI... Q6 SC Last administered on 02/25/17 12:28; Admin Dose 2 UNIT; Start 02/25/17 at 00:00 Sodium Polystyrene Sulfonate (Kayexalate) 30 gm ONCE ONCE GTB ; Start 02/25/17 at 11:00; Stop 02/25/17 at 11:01; Status UNV Miscellaneous Information (*Order Clarification Bulletin) MEDICATION REQUI... Q6 XX ; Start 02/25/17 at 12:00; Stop 02/26/17 at 06:01 RIDGE MATTHEWS MD Feb 25, 2017 13:13
[2017-02-25] MEDS ORDERED: UDFER GTB (13:20)
[2017-02-25] MEDS ORDERED: Pending Collagenase Order XX (13:20)
[2017-02-25] MEDS ORDERED: APIX5TAB PO (13:20)
[2017-02-25] MEDS ORDERED: SULF-182 PO (13:20)
[2017-02-25] MEDS: MONTELUKAST 10 MG TAB GTB SCH (21:12)
[2017-02-25] MEDS: METHADONE 10 MG TAB PEG PRN (21:13)
[2017-02-26] VITALS (12 sets, daily range): BP systolic 115–169; BP diastolic 46–60; PULSE 55–73; RESP 16–20
[2017-02-26] MEDS: ACCU-CHEK XX SCH (01:15)
[2017-02-26] MEDS: INSULIN ASPART [NOVOLOG] 3 ML PEN SC SCH ×4 (05:15→18:00)
[2017-02-26] MEDS: TIGECYCLINE 50 MG in SOD CHLORIDE 0.9% 100 ML IVPB SCH (09:00)
[2017-02-26 09:07] LABS: BASOPHIL # 0.1 10^3/ul (0.0-0.1); BASOPHILS % 0.7 % (0.0-2.0); EOSINOPHILS # 0.5 10^3/ul (0.0-0.5); EOSINOPHILS % 3.1 % (0.0-7.0); HEMATOCRIT 31.8 % (37.0-47.0); HEMOGLOBIN 10.3 g/dl (12.0-16.0); LYMPHOCYTES # 4.7 10^3/ul (0.8-2.9); LYMPHOCYTES % 28.7 % (15.0-51.0); MEAN CORPUSCULAR HGB CONC 32.4 g/dl (32.0-37.0); MEAN CORPUSCULAR VOLUME 89.6 fl (82.0-101.0); MEAN PLATELET VOLUME 9.2 fl (7.4-10.4); MONOCYTE # 1.4 10^3/ul (0.3-0.9); MONOCYTES % 8.2 % (0.0-11.0); NEUTROPHIL # 9.7 10^3/ul (1.6-7.5); NEUTROPHILS % 58.5 % (39.0-77.0); PLATELET COUNT 360 10^3/UL (140-415); RED BLOOD COUNT 3.55 10^6/ul (4.20-5.40); RED CELL DISTRIBUTION WIDTH 18.6 % (11.5-14.5); WHITE BLOOD COUNT 16.5 10^3/ul (4.8-10.8)
[2017-02-26 09:27] LABS: CALCIUM 8.8 mg/dl (8.4-10.2); CREATININE 0.6 mg/dl (0.44-1.00); POTASSIUM 4.5 mmol/L (3.5-5.1)
[2017-02-26] MEDS: MULTIVITAMINS THERAPEUTIC TAB GTB SCH (10:02)
[2017-02-26] MEDS: FERROUS SULFATE 60 MG/ML 5ML CUP GTB SCH (10:02)
[2017-02-26] MEDS: ASCORBIC ACID 500 MG TAB GTB SCH (10:02)
[2017-02-26] MEDS: TRIMETHOPRIM/SULFAMETHOX (DS) TAB PO SCH ×2 (10:02→21:50)
[2017-02-26] MEDS: AMLODIPINE 5 MG TAB GTB SCH (10:03)
[2017-02-26] MEDS: APIXABAN 5 MG TABLET PO SCH ×2 (10:03→21:50)
[2017-02-26] MEDS: NPH, HUMAN INSULIN ISOPHANE 3ML VIAL SC SCH ×2 (10:33→20:00)
[2017-02-26] MEDS: COLLAGENASE 30 GM TUBE TOP SCH (14:03)
--- NOTE | 2017-02-26 15:44 | PN ---
Date/Time of Note Date/Time of Note DATE: 02/26/17 TIME: 15:39 Assessment/Plan VTE Prophylaxis VTE Prophylaxis Intervention: other Lines/Catheters IV Catheter Type (from Nrs): PICC Line Central line still needed: Yes Urinary Cath still in place: Yes Reason Cath still needed: skin wounds contaminated by urine Assessment/Plan Chief Complaint/Hosp Course 02/25 wide awake today, mild stomach pain. 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 awaiting bed. pt awaiting sensitivity of enteroccocus to determine if need an isolation bed. hyperkalemia- kayex given. bactrim has s.e. of low Na and high K. bactrim on lower dose. need to watch K. Na is stable. plan for labs 2x/week kayexalate 2x per week prn. 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 wd cx prelim is pseudomonas and enteroccocus. sensitivity pending tomorrow. loose stool. rectal tube in place. c.diff neg. pt had loose stool prior to kayexalate. kayex was given yesterday. since the K cont to rise due to bactrim [probable] will plan on regular kayexalate 2x per week and get bmp 2x per week at the snf. bactrim was decreased t 1 tab bid. --cont to use rectal tube til stool solidifies. dm- been stable left UE dvt. old. will restart eliquis. was held due to anemia at the end of the last hospitalization. will cont eliquis at the snf. anemia will repeat epo x 1. anemia has been chronic. will decrease fe. pneumonia on last hosp- stable. resolved. Exam/Review of Systems Vital Signs Vitals Vital Signs Date Time Temp Pulse Resp B/P Pulse Ox O2 Delivery O2 Flow Rate FiO2 02/26/17 15:26 98.2 71 16 117/52 100 02/26/17 02:20 4.0 02/25/17 20:00 Nasal Cannula Intake and Output 02/25/17 02/25/17 02/26/17 15:00 23:00 07:00 Intake Total 960 ml 800 ml Output Total 1000 ml 1900 ml Balance -40 ml -1100 ml Results Result Diagram: 02/26/17 0802/26/17 08 Results 24 hrs Laboratory Tests Test 02/25/17 16:56 02/25/17 21:23 02/26/17 01:13 02/26/17 05:07 Bedside Glucose 189 192 140 116 Test 02/26/17 08:05 02/26/17 13:14 White Blood Count 16.5 H Red Blood Count 3.55 L Hemoglobin 10.3 L Hematocrit 31.8 L Mean Corpuscular Volume 89.6 Mean Corpuscular Hemoglobin 29.0 Mean Corpuscular Hemoglobin Concent 32.4 Red Cell Distribution Width 18.6 H Platelet Count 360 Mean Platelet Volume 9.2 Neutrophils % 58.5 Lymphocytes % 28.7 Monocytes % 8.2 Eosinophils % 3.1 Basophils % 0.7 Nucleated Red Blood Cells % 0.0 Neutrophils # 9.7 H Lymphocytes # 4.7 H Monocytes # 1.4 H Eosinophils # 0.5 Basophils # 0.1 Nucleated Red Blood Cells # 0.0 Sodium Level 136 Potassium Level 4.5 Chloride Level 106 Carbon Dioxide Level 26 Anion Gap 9 Blood Urea Nitrogen 30 H Creatinine 0.60 Glucose Level 82 # Calcium Level 8.8 Bedside Glucose 71 Medications Medications Current Medications Ondansetron HCl (Zofran Tab) 4 mg Q6H PRN PO NAUSEA AND/OR VOMITING; Start 02/22/17 at 16:30 Acetaminophen (Tylenol Tab) 650 mg Q6H PRN PEG PAIN LEVEL 1-3 OR FEVER Last administered on 02/23/17 18:09; Admin Dose 650 MG; Start 02/22/17 at 16:30 Zolpidem Tartrate (Ambien) 5 mg QHS PRN PEG INSOMNIA; Start 02/22/17 at 16:30 Trimethoprim/ Sulfamethoxazole (Bactrim (Ds)) 1 tab BID PO Last administered on 02/26/17 10:02; Admin Dose 1 TAB; Start 02/22/17 at 21:00 Methadone HCl (Methadone) 10 mg HS PRN PEG pain Last administered on 02/25/17 21:13; Admin Dose 10 MG; Start 02/22/17 at 16:30 Amlodipine Besylate (Norvasc) 5 mg DAILY GTB Last administered on 02/26/17 10: 03; Admin Dose 5 MG; Start 02/23/17 at 09:00 Ascorbic Acid (Vitamin C) 500 mg DAILY GTB Last administered on 02/26/17 10:02 ; Admin Dose 500 MG; Start 02/23/17 at 09:00 Bisacodyl (Dulcolax Supp) 10 mg DAILY PRN [place] CONSTIPATION; Start 02/22/17 at 17 :00 Docusate Sodium (Colace) 100 mg BID PRN PO CONSTIPATION; Start 02/22/17 at 17: 00 Ferrous Sulfate (Feosol Liquid Cup) 330 mg DAILY GTB Last administered on 10:02; Admin Dose 330 MG; Start 02/23/17 at 09:00 Magnesium Hydroxide (Milk Of Mag) 30 ml QHS PRN GTB CONSTIPATION; Start at 17:00 Montelukast Sodium (Singulair) 10 mg QHS GTB Last administered on 02/25/17 21: 12; Admin Dose 10 MG; Start 02/22/17 at 21:00 Multivitamins Therapeutic (Theragran) 1 tab DAILY GTB Last administered on 02/26 10:02; Admin Dose 1 TAB; Start 02/23/17 at 09:00 Apixaban (Eliquis) 5 mg BID PO Last administered on 02/26/17 10:03; Admin Dose 5 MG; Start 02/22/17 at 21:00 Insulin Human NPH (Humulin N) 10 unit BID@08,20 SC Last administered on 10:33; Admin Dose 10 UNIT; Start 02/22/17 at 20:00 Zinc Sulfate (Zinc Sulfate) 220 mg PRN PRN GTB K>6.0 Last administered on 00:35; Admin Dose 220 MG; Start 02/22/17 at 18:00 Diagnostic Test (Pha) (Accu-Chek) 1 ea 02 XX Last administered on 02/26/17 01: 15; Admin Dose 1 EA; Start 02/23/17 at 02:00 Miscellaneous Information 1 ea NOTE XX ; Start 02/22/17 at 18:00 Glucose (Glutose) 15 gm Q15M PRN PO DECREASED GLUCOSE; Start 02/22/17 at 18:00 Glucose (Glutose) 22.5 gm Q15M PRN PO DECREASED GLUCOSE; Start 02/22/17 at 18: 00 Dextrose (D50w Syringe) 25 ml Q15M PRN IV DECREASED GLUCOSE; Start 02/22/17 at 18:00 Dextrose (D50w Syringe) 50 ml Q15M PRN IV DECREASED GLUCOSE; Start 02/22/17 at 18:00 Glucagon (Glucagen) 1 mg Q15M PRN IM DECREASED GLUCOSE; Start 02/22/17 at 18:00 Glucose (Glutose) 15 gm Q15M PRN BUCCAL DECREASED GLUCOSE; Start 02/22/17 at 18 :00 Miscellaneous Information (Pending Santyl Order For Wound Care) This patient jean baptiste... PRN PRN XX WOUND CARE; Start 02/22/17 at 20:00 Clonidine (Catapres) 0.1 mg Q6 PRN GTB ELEVATED BLOOD PRESSURE; Start 02/23/17 at 07:00 Collagenase 1 applic 1 applic PRN PRN TOP PRN; Start 02/23/17 at 07:00 Tigecycline/ Sodium Chloride (Tygacil/NS) 100 ml @ 200 mls/hr Q12 IVPB Last administered on 02/26/17 09:00; Admin Dose 200 MLS/HR; Start 02/23/17 at 09:00 Collagenase (Santyl) 1 applic DAILY TOP Last administered on 02/26/17 14:03; Admin Dose 1 APPLIC; Start 02/23/17 at 17:00 Acetaminophen/ Hydrocodone Bitart ([place] (5/325)) 1 tab Q8 PRN PO PAIN LEVEL 4- 6 Last administered on 02/24/17 15:42; Admin Dose 1 TAB; Start 02/23/17 at 22: 00 Insulin Aspart (Novolog Insulin Pen) NOVOLOG *MILD* ALGORI... Q6 SC Last administered on 02/25/17 17:17; Admin Dose 2 UNIT; Start 02/25/17 at 00:00 RIDGE MATTHEWS MD Feb 26, 2017 15:44
[2017-02-26] MEDS: METHADONE 10 MG TAB PEG PRN (18:53)
[2017-02-26] MEDS: HYDROCODONE/APAP (5/325) TAB PO PRN (21:51)
== END 2017-02-26 21:45 | DRG 640 ==
LOC: E/R 12:24 → TEL 15:13
PROVIDERS: ADMIT Internal Medicine; ATTEND Internal Medicine
DX: E87.5 Hyperkalemia (principal); L89.154 Pressure ulcer of sacral region, stage 4; E11.69 Type 2 diabetes mellitus with other specified complication; D64.9 Anemia, unspecified; B96.5 Pseudomonas (aeruginosa) (mallei) (pseudomallei) as the cause of diseases classified elsewhere; M86.9 Osteomyelitis, unspecified; E87.1 Hypo-osmolality and hyponatremia; B95.2 Enterococcus as the cause of diseases classified elsewhere; Z16.21 Resistance to vancomycin; Z16.24 Resistance to multiple antibiotics; Z79.4 Long term (current) use of insulin; Z79.82 Long term (current) use of aspirin; Z86.718 Personal history of other venous thrombosis and embolism; Z87.01 Personal history of pneumonia (recurrent)
CPT/HCPCS: 71010; 80048; 80053; 81001; 82533; 82962; 83605; 84436; 84479; 84484; 85025; 85651; 86140; 87040; 87070; 87075; 87081; 87086; 93005; 96374; 96375; J0610; J0885; J1815; J2270; J2405; J3243; J7030; J7040

== ENCOUNTER 2017-04-19 20:46 | Emergency (ER) | payer MEDICARE, MEDICAID ==
[~2017-04-19] VITALS: Ht 152.4 cm; Wt 63.6 kg
[~2017-04-19 20:46] MED LIST changes: +ACET-2047 GTB; +ACET-2047 PEG; -AMLO-145 PO; +AMLO5TAB4 PEG; +APIX5TAB PO; -ASC500 GTB; +ASCO500C7 PEG; -ASPI-664 PO; +BISA10SU55 RC; +CALC600T24 PEG; +CLON-379 PEG; +CRAN3875 PEG; +CRAN425C2 GTB; +DOCU-144 PEG; -LOSA100T7 PO; +MAGN400O4 PEG; -METH10TA2 PO; +MONT10TA21 PEG; -MONT10TA24 PO; -MULT-853 PO; +MULTI PEG; -NEOM28OI TOP; +NOVO3I SC; -NOVO7030 SC; -NYST15PO4 TOP; +ONDA4TAB8 PEG; +Pending Collagenase Order XX; -SAN30GM TOP; +SULF-182 PO; +ZINC220T GTB; +ZOLP10TA GTB; -ZOLP5TAB PO
[2017-04-19 20:50] VITALS: Ht 152.4 cm; Wt 63.6 kg
[2017-04-19 22:25] LABS: BASOPHIL # 0.1 10^3/ul (0.0-0.1); BASOPHILS % 0.5 % (0.0-2.0); EOSINOPHILS # 0.7 10^3/ul (0.0-0.5); EOSINOPHILS % 5.3 % (0.0-7.0); HEMATOCRIT 24.5 % (37.0-47.0); HEMOGLOBIN 7.6 g/dl (12.0-16.0); LYMPHOCYTES # 2.6 10^3/ul (0.8-2.9); LYMPHOCYTES % 19.3 % (15.0-51.0); MEAN CORPUSCULAR HEMOGLOBIN 29.5 pg (29.0-33.0); MEAN PLATELET VOLUME 9.5 fl (7.4-10.4); MONOCYTE # 1.3 10^3/ul (0.3-0.9); MONOCYTES % 9.5 % (0.0-11.0); NEUTROPHIL # 8.5 10^3/ul (1.6-7.5); PLATELET COUNT 323 10^3/UL (140-415); RED BLOOD COUNT 2.58 10^6/ul (4.20-5.40); RED CELL DISTRIBUTION WIDTH 13.7 % (11.5-14.5); WHITE BLOOD COUNT 13.3 10^3/ul (4.8-10.8)
[2017-04-19 22:43] LABS: ALANINE AMINOTRANSFERASE 37 IU/L (13-69); ALBUMIN 3.2 g/dl (3.3-4.9); ALKALINE PHOSPHATASE 143 IU/L (42-121); ANION GAP 15 (8-16); ASPARTATE AMINO TRANSFERASE 44 IU/L (15-46); BILIRUBIN,INDIRECT 0.1 mg/dl (0-1.1); BILIRUBIN,TOTAL 0.1 mg/dl (0.2-1.3); BLOOD UREA NITROGEN 35 mg/dl (7-20); CALCIUM 9.6 mg/dl (8.4-10.2); CARBON DIOXIDE 31 mmol/L (21-31); CHLORIDE 96 mmol/L (97-110); GLUCOSE 168 mg/dl (70-220); POTASSIUM 4.5 mmol/L (3.5-5.1); SODIUM 137 mmol/L (135-144); TOTAL PROTEIN 7.2 g/dl (6.1-8.1)
[2017-04-19 22:43] LABS: INR 1.5; PROTIME 18.2 Sec (12.2-14.2); PT RATIO 1.4
[2017-04-19 22:44] LABS: PARTIAL THROMBOPLASTIN TIME 41.3 Sec (25.0-35.0)
[2017-04-19 23:17] VITALS: PULSE 67
[2017-04-19 23:23] LABS: TROPONIN-I < 0.012 ng/ml (0.00-0.12)
--- NOTE | 2017-04-19 23:50 | RADRPT ---
PROCEDURE: XR Chest. CLINICAL INDICATION: Abdominal Pain TECHNIQUE: Single frontal view of the chest was obtained COMPARISON: Chest radiograph dated February 22, 2017. FINDINGS: Right-sided PICC tip overlying the mid SVC. The heart and mediastinum are within normal limits. Aortic calcifications are present. There is mild pulmonary vascular congestion. No focal consolidation, pleural effusions, or pneumotho rax. Degenerative changes of the spine and shoulder joints are present. IMPRESSION: 1. Mild pulmonary vascular congestion. 2. No focal consolidations. RPTAT:AAJJ Physician Rosy Date Time Electronically viewed and signed by Physician Rosy on 04/19/2017 23:50 QL/
[2017-04-19] MEDS ORDERED: ZOLP5TAB7 PEG (23:54)
[2017-04-19] MEDS ORDERED: LACT237L38 GTB (23:55)
--- NOTE | 2017-04-19 23:55 | ERD ---
ER Documentation Chief Complaint Chief Complaint BIBA from [facility] for low hgb 7.3,rec'd methadone @2029 at [facility] HPI This 81-year-old female sent from a sniff unit for hemoglobin of 7.3. The patient is on Eliquis for chronic upper extremity DVTs and has a chronic recurring gradual anemia requiring blood transfusions. 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 The patient has had no GI symptoms. Patient does not have any gross melena. No cough patient is a baseline mental status with minimal responsiveness. Family is at bedside ROS All systems reviewed and are negative except as per history of present illness. Medications Home Meds Active Scripts [Pending Collagenase Order] 1 EA EACH No Conflict Check, 0 EA XX PRN Y for WOUND CARE for 30 Days, #30 Prov:RIDGE MATTHEWS MD 02/25/17 Apixaban* (Eliquis*) 5 Mg Tablet, 5 MG PO BID for 90 Days, #180 TAB Prov:RIDGE MATTHEWS MD 02/25/17 Sulfamethoxazole/Trimethoprim (Sulfamethoxazole-Tmp Ds Tablet) 1 Each Tablet, 1 TAB PO BID for 15 Days, #30 TAB Prov:RIDGE MATTHEWS MD 02/25/17 Ferrous Sulfate (Ferrous Sulfate) 300 Mg/5 Ml Liquid, 330 MG GTB DAILY for 30 Days, #30 Prov:RIDGE MATTHEWS MD 02/25/17 Methadone Hcl* (Methadone*) 10 Mg Tab, 10 MG GTB HS Y for pain for 30 Days, #30 TAB Prov:RIDGE MATTHEWS MD 02/17/17 Hydrocodone Bit-Acetaminophen (Hydrocodone Bit-APAP) 5-325MG Tablet, 0.5 TAB GTB Q8 Y for pain for 30 Days, #60 TAB Prov:RIDGE MATTHEWS MD 02/17/17 Albuterol Sulfate* (Albuterol Sulfate* Neb) 0.083%-3 Ml Neb, 1.25 MG HHN Q6H RESP THERAPY Y for WHEEZING AND SOB for 90 Days, #90 Prov:RIDGE MATTHEWS MD 02/17/17 Reported Medications Insulin Aspart* (Novolog Insulin Pen*) 100 Unit/Ml Soln, 0 SC .SLIDING SCALE AC , EA 60-130= 0 units 131-160= 2 units 161-200= 3 units 201-250= 4 units 251-300= 6 units 301-350= 8 units 351-400= 10 units over 400 give 10 units and notify md also if under 60 02/22/17 Acetaminophen* (Acetaminophen*) 650 Mg Tablet, 650 MG GTB Q6H Y for PAIN AND OR ELEVATED TEMP, #30 TAB 02/22/17 Zolpidem Tartrate* (Ambien*) 10 Mg Tablet, 10 MG GTB QHS Y for INSOMNIA, TAB 02/22/17 Ondansetron Hcl* (Zofran*) 4 Mg Tablet, 4 MG GTB Q6H Y for NAUSEA AND OR VOMITING, TAB 02/22/17 Clonidine Hcl* (Clonidine Hcl*) 0.1 Mg Tab, 0.1 MG GTB Q6 Y for ELEVATED BLOOD PRESSURE, TAB 02/22/17 Bisacodyl (Dulcolax) 10 Mg Supp.rect, 10 MG RC DAILY Y for CONSTIPATION, SUPP.RECT 02/22/17 Magnesium Hydroxide* (Milk Of Magnesia*) 400 Mg/5 Ml Oral.susp, 30 ML GTB QHS Y for CONSTIPATION, ML 02/22/17 Docusate Sodium* (Colace*) 100 Mg Capsule, 100 MG GTB BID Y for CONSTIPATION, # 60 CAP hold for loose bowel movement 02/22/17 Acetaminophen* (Acetaminophen*) 650 Mg Tablet, 650 MG GTB DAILY Y for PAIN AND OR ELEVATED TEMP, #30 TAB wound pain management 02/22/17 Cranberry Extract (Cranberry) 425 Mg Capsule, 425 MG GTB DAILY, CAP 02/22/17 Zinc Sulfate* (Zinc Sulfate*) 220 Mg Tablet, 220 MG GTB DAILY, TAB 02/22/17 Multivitamins* (Theragran*) 1 Tab Tab, 1 TAB GTB DAILY, TAB 02/22/17 Montelukast Sodium* (Singulair*) 10 Mg Tablet, 10 MG GTB QHS, #30 TAB 02/22/17 Cran/Vitc/Mannose/Inulin/Brom (Uti-Stat Liquid) 3,875 Mg/30 Ml Liquid, 3875 MG GTB BID 02/22/17 Calcium Carbonate* (Calcium Carbonate*) 600 MG Ca Tab, 600 MG GTB BID, TAB 02/22/17 Ascorbic Acid* (Vitamin C*) 500 Mg Capsule.sa, 500 MG GTB DAILY, CAP 02/22/17 Amlodipine Besylate* (Norvasc*) 5 Mg Tablet, 5 MG GTB DAILY, TAB 02/22/17 Allergies Allergies: Coded Allergies: Benzodiazepines (Verified Allergy, Severe, hallucinations, 04/19/17) Penicillins (Verified Allergy, Mild, RASH, 04/19/17) PMhx/Soc History of Surgery: Yes (cholecystectomy, c/s) Anesthesia Reaction: No Hx Neurological Disorder: Yes (confusion ) Hx Respiratory Disorders: Yes (Home O2, ) Hx Cardiac Disorders: Yes (htn, [place], ) Hx Psychiatric Problems: Yes (anxiety ) Hx Miscellaneous Medical Probl: Yes (pressure ulcers ) Hx Alcohol Use: No Hx Substance Use: No Hx Tobacco Use: No Smoking Status: Never smoker FmHx Family History: No coronary disease Physical Exam Vitals Vital Signs Date Time Temp Pulse Resp B/P Pulse Ox O2 Delivery O2 Flow Rate FiO2 04/19/17 23:32 98.0 04/19/17 23:17 67 12 127/43 100 Nasal Cannula 2.0 04/19/17 21:52 72 15 114/42 100 Room Air 04/19/17 20:50 100.0 80 18 124/87 100 Physical Exam Const: [] Head: Atraumatic normocephalic Eyes: Normal Conjunctiva PERRLA, right cornea is opaque ENT: Normal External Ears, Nose and Mouth. Neck: Full range of motion..~ No meningismus. Resp: Clear to auscultation bilaterally Cardio: Regular rate and rhythm, no murmurs Abd: Soft, non tender, non distended. Normal bowel sounds, rectal tube in place with stool Skin: No petechiae or rashes Back: No midline or flank tenderness Ext: No cyanosis, or edema, partial toe amputations midfoot amputation Neur: Awake and alert, minimal responsiveness says 1 word answers Psych: Baseline Result Diagram: 04/19/17 2216 04/19/17 2100 Results 24 hrs Laboratory Tests Test 04/19/17 21:00 04/19/17 22:16 Sodium Level 137mmol/L Potassium Level 4.5mmol/L Chloride Level 96mmol/L Carbon Dioxide Level 31mmol/L Anion Gap 15 Blood Urea Nitrogen 35mg/dl Creatinine 0.80mg/dl Glucose Level 168mg/dl Calcium Level 9.6mg/dl Total Bilirubin 0.1mg/dl Direct Bilirubin 0.00mg/dl Indirect Bilirubin 0.1mg/dl Aspartate Amino Transf (AST/SGOT) 44IU/L Alanine Aminotransferase (ALT/SGPT) 37IU/L Alkaline Phosphatase 143IU/L Troponin I < 0.012ng/ml Total Protein 7.2g/dl Albumin 3.2g/dl Globulin 4.00g/dl Albumin/Globulin Ratio 0.80 White Blood Count 13.310^3/ul Red Blood Count 2.5810^6/ul Hemoglobin 7.6g/dl Hematocrit 24.5% Mean Corpuscular Volume 95.0fl Mean Corpuscular Hemoglobin 29.5pg Mean Corpuscular Hemoglobin Concent 31.0g/dl Red Cell Distribution Width 13.7% Platelet Count 66351^3/UL Mean Platelet Volume 9.5fl Neutrophils % 64.0% Lymphocytes % 19.3% Monocytes % 9.5% Eosinophils % 5.3% Basophils % 0.5% Nucleated Red Blood Cells % 0.0/100WBC Neutrophils # 8.510^3/ul Lymphocytes # 2.610^3/ul Monocytes # 1.310^3/ul Eosinophils # 0.710^3/ul Basophils # 0.110^3/ul Nucleated Red Blood Cells # 0.010^3/ul Prothrombin Time 18.2Sec Prothrombin Time Ratio 1.4 INR International Normalized Ratio 1.50 Activated Partial Thromboplast Time 41.3Sec Procedures/MDM PROCEDURE: XR Chest. CLINICAL INDICATION: Abdominal Pain TECHNIQUE: Single frontal view of the chest was obtained COMPARISON: Chest radiograph dated February 22, 2017. FINDINGS: Right-sided PICC tip overlying the mid SVC. The heart and mediastinum are within normal limits. Aortic calcifications are present. There is mild pulmonary vascular congestion. No focal consolidation, pleural effusions, or pneumothorax. Degenerative changes of the spine and shoulder joints are present. IMPRESSION: 1. Mild pulmonary vascular congestion. 2. No focal consolidations. RPTAT:AAJJ Physician Rosy Date Time Electronically viewed and signed by Physician Rosy on 04/19/2017 23:50 QL/ CC: MANNIE CARMONA DO Spoke with , said he knows the patient very well. He said the patient just needs some blood and give 1 unit and sent back to the shelter facility. He says the patient is on chronic biotics for osteomyelitis. I did inform him of the 100 temperature that was retook and was 98. He said regardless the patient is on antibiotics and consent back. Told the family will give her a unit of blood and sent back in there in agreement Departure Diagnosis: Primary Impression: Anemia Anemia type: unspecified type Qualified Code: D64.9 - Anemia, unspecified type Condition: Stable Patient Instructions: Anemia Referrals: RIDGE MATTHEWS MD (PCP) MANNIE CARMONA DO Apr 19, 2017 23:55
[2017-04-19] MEDS ORDERED: ALBU2.5V3 NEB (23:57)
[2017-04-19] MEDS ORDERED: APIX5TAB PEG (23:58)
[2017-04-19] MEDS ORDERED: BUS5 GTB (23:59)
[2017-04-20] MEDS ORDERED: FERR220S13 PEG (00:01)
[2017-04-20] MEDS ORDERED: FLUO60OI5 TOP (00:02)
[2017-04-20] MEDS ORDERED: HYDR-906 PEG (00:03)
[2017-04-20] MEDS ORDERED: INSU100I27 SQ (00:05)
[2017-04-20] MEDS ORDERED: METH10TA2 PEG (00:06)
[2017-04-20 01:43] VITALS: BP 125/38; RESP 12; TEMP 98.6
== END 2017-04-20 03:48 | disposition home or self-care (01) ==
LOC: E/R 20:46
DX: D64.9 Anemia, unspecified (principal); I10 Essential (primary) hypertension; E11.9 Type 2 diabetes mellitus without complications; R07.9 Chest pain, unspecified; Z79.4 Long term (current) use of insulin
CPT/HCPCS: 36415; 36430; 71010; 80053; 84484; 85025; 85610; 85730; 86850; 86900; 86901; 86920; 99285; P9016

== ENCOUNTER 2017-05-27 11:12 | Inpatient (IN) | END 2017-06-19 16:00 | DRG 871 ==

== ENCOUNTER 2017-08-19 10:37 | Inpatient (IN) | END 2017-08-25 14:15 | DRG 393 ==

== ENCOUNTER 2017-09-17 18:08 | Inpatient (IN) | END 2017-09-24 18:20 | DRG 871 ==

== ENCOUNTER 2017-09-25 12:50 | Inpatient (IN) | END 2017-09-29 17:17 | DRG 689 ==

== ENCOUNTER 2017-10-02 02:30 | Inpatient (IN) | END 2017-10-15 19:58 | DRG 871 ==